=== PATIENT | female | born 1965 | race Caucasian/White ===

== ENCOUNTER 2016-10-02 10:29 | Emergency (ER) | payer OTHER ==
[~2016-10-02] VITALS: Ht 152.4 cm; Wt 96.3 kg
[~2016-10-02 10:29] MED LIST: ALBU1AER9 PO; ASPI81TA28 PO; ATOR-22 PO; CETI10TA84 PO; EFFSR150 PO; FLUT1INH INH; GABA400C PO; GUAI400T29 PO; INSU1.2I SQ; LEVO200T6 PO; LORA10CA2 PO; LSN5 PO; MAGN400T6 PO; MECL1TAB42 PO; METO50TA7 PO; MIRA100T PO; NTRGSL/4 UT
[2016-10-02 10:37] VITALS: TEMP 36.7; Ht 152.4 cm; Wt 96.3 kg
[2016-10-02] MEDS ORDERED: ACETAMINOPHEN 500 MG TAB PO STA (11:11)
--- NOTE | 2016-10-02 12:03 | DIAGNOSTIC IMAGING REPORT ---
CT HEAD WITHOUT CONTRAST (CT) CLINICAL HISTORY: Closed head injury. Scalp hematoma. COMPARISON STUDY: 03/01/2015 TECHNIQUE: Axial CT of the brain is performed from the vertex to the skull base. IV contrast was not administered for this examination. CT DOSE: 712.55 mGy.cm FINDINGS: No intra or extra-axial mass lesions are visualized. There is no CT evidence of acute cortical infarction. There is no evidence of midline shift. There is no acute hemorrhage. No calvarial fractures are visualized. There is no evidence of pathologic ventricular dilatation. There is no evidence of acute sinusitis. There is a posterior scalp hematoma. IMPRESSION: Posterior scalp hematoma. No evidence of acute intracranial injury. Electronically signed by: Cameron Browning M.D. 10/02/2016 12:01 PM
--- NOTE | 2016-10-02 12:32 | EMERGENCY ROOM VISIT NOTE ---
ED Visit Note First contact with patient: 11:02 Staff note: I have reviewed the Patients chart and have discussed this case with my PA. I generally agree with the ED note and findings.
[2016-10-02 13:07] VITALS: BP 128/84; PULSE 63; O2SAT 94
--- NOTE | 2016-10-02 20:35 | EMERGENCY ROOM VISIT NOTE ---
History First contact with patient: 11:02 Chief Complaint: FALL Stated Complaint: FALL History of Present Illness The patient is a 50 year old female who presents to the Emergency Room with complaints of a head injury after slipping on ice and falling backwards, striking her head on either the ground or a board that was laying across a burn barrel. The members did not notice any loss of consciousness. The patient reports increasing pain and fullness in the back of her head. She denies any neck pain or back pain. She also denies any other significant injuries from her fall. She rates her discomfort a 9 out of 10. Tetanus immunization is up- to-date. Review of Systems 10 system review was performed and was negative except for pertinent positives and negatives as indicated in history of present illness Past Medical/Surgical History Medical Problems: (1) Diabetes mellitus type 2 in obese (2) Dyslipidemia (3) GERD (gastroesophageal reflux disease) (4) Hepatitis (5) HTN (hypertension) (6) Hypothyroidism (7) Leaky heart valve (8) Mitral regurgitation (9) Morbid obesity with BMI of 40.0-44.9, adult (10) MRSA (methicillin resistant Staphylococcus aureus) (11) ANA (obstructive sleep apnea) (12) Panniculitis (13) Patella fracture (14) Post-op pain Surgical Problems: (1) History of carpal tunnel surgery (2) History of hysterectomy (3) History of tonsillectomy and adenoidectomy (4) History of tubal ligation (5) Hx of total knee arthroplasty Family History Diabetes mellitus FH: heart disease FH: lung disease Hypertension Seizures Social History Smoking Status: Never Smoker Alcohol Use: none Drug Use: none Marital Status: Housing Status: lives alone Occupation Status: disabled Current/Historical Medications Scheduled Aspirin (Aspirin Ec), 81 MG PO DAILY Atorvastatin (Lipitor), 20 MG PO PM Cetirizine (Zyrtec), 10 MG PO DAILY Fluticasone Furoate-Vilanterol (Breo Ellipta), 1 PUFF INH DAILY Gabapentin (Neurontin), 400 MG PO DAILY Guaifenesin (Mucus Relief), 400 MG PO DAILY Insulin Glargine (Toujeo Solostar), 100 UNITS SQ QAM Levothyroxine Sodium (Levothyroxine Sodium), 1,200 MCG PO DAILY Lisinopril (Lisinopril), 2.5 MG PO DAILY Loratadine (Claritin), 10 MG PO DAILY Magnesium Oxide (Mag-Ox), 400 MG PO BID Metoprolol Succ (Toprol Xl) (Toprol-Xl), 50 MG PO DAILY Mirabegron (Myrbetriq), 25 MG PO DAILY Venlafaxine Hcl (Effexor Extended Rel), 150 MG PO DAILY Scheduled PRN Albuterol (Proair Hfa), 1 PUFF PO Q4H PRN for asthma Meclizine Hcl (Meclizine Hcl), 25 MG PO TID PRN for Dizziness or Vertigo Nitroglycerin (Nitrostat), 0.4 MG UT UD PRN for Chest Pain Allergies Coded Allergies: Daptomycin (Verified Allergy, Severe, SHORTNESS OF BREATH, 08/05/16) 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 The patient does not appear in any acute distress. HEENT: Examination shows an abrasion and small hematoma over the crown and upper occipital region. Pupils equal, round and reactive. No epistaxis, subconjunctival hemorrhage, hemotympanum, raccoon's eyes or Sparks sign. NECK: Full active range of motion without discomfort. RESPIRATORY: Clear to auscultation bilaterally with no wheezing, crackles, rhonchi or stridor. CARDIOVASCULAR: Regular rate and rhythm with no murmurs, rubs or gallops. GASTROINTESTINAL: Bowel sounds present in all quadrants. Protuberant but soft and nontender to palpation. MUSCULOSKELETAL: Full range of motion of all major joints without discomfort. No focal tenderness to palpation through the central thoracolumbar spine or ribs. Distal pulses are intact. INTEGUMENTARY: No rash or other significant dermatologic conditions noted. NEUROLOGIC: Cranial nerves II-XII grossly intact. No focal neurologic deficits noted. Upper and lower extremities are sensory intact. Medical Decision & Procedures ER Provider Diagnostic Interpretation: Noncontrast CT of the head does not show any acute fractures or intracranial bleed. Radiologist report is as follows: CT HEAD WITHOUT CONTRAST (CT) CLINICAL HISTORY: Closed head injury. Scalp hematoma. COMPARISON STUDY: 03/01/2015 TECHNIQUE: Axial CT of the brain is performed from the vertex to the skull base. IV contrast was not administered for this examination. CT DOSE: 712.55 mGy.cm FINDINGS: No intra or extra-axial mass lesions are visualized. There is no CT evidence of acute cortical infarction. There is no evidence of midline shift. There is no acute hemorrhage. No calvarial fractures are visualized. There is no evidence of pathologic ventricular dilatation. There is no evidence of acute sinusitis. There is a posterior scalp hematoma. IMPRESSION: Posterior scalp hematoma. No evidence of acute intracranial injury. Medications Administered Medications (Trade) Dose Ordered Sig/Viviana Route Start Time Stop Time Status Last Admin Dose Admin Acetaminophen (Tylenol Tab) 1,000 mg NOW STAT PO 10/02/16 11:11 10/02/16 11:12 DC 10/02/16 11:31 1,000 MG ED Course Patient history and physical exam were performed. Nurse's notes were reviewed. The patient received Tylenol 1 g for pain. Noncontrast CT of the head was normal. The patient was encouraged to rest and avoid strenuous activities. Concussion handout was provided. The patient was encouraged to follow-up with her PCP for further management if symptoms are not significantly improving over the next few days. Ibuprofen and Tylenol in alternating fashion as needed for pain relief. The patient was happy with plan of care, voiced understanding of all discharge instructions, and rated her pain a 5 out of 10 at the time of discharge. The patient was also seen and examined by Dr. Boyd, ED attending physician, who agrees with workup and plan of care. Medical Decision Impression Primary Impression: Concussion Additional Impressions: Fall due to slipping on ice or snow, Scalp hematoma Departure Information Referrals (PCP) Patient Instructions A [employer] Page, [employer]
== END 2016-10-02 13:10 | disposition home or self-care (01) ==
LOC: EDBD 10:29 → C.EDC 10:31
DX: S06.0X0A Concussion without loss of consciousness, initial encounter (principal); S00.03XA Contusion of scalp, initial encounter; E11.9 Type 2 diabetes mellitus without complications; E78.5 Hyperlipidemia, unspecified; I10 Essential (primary) hypertension; E03.9 Hypothyroidism, unspecified; E66.9 Obesity, unspecified; G47.33 Obstructive sleep apnea (adult) (pediatric); K21.9 Gastro-esophageal reflux disease without esophagitis; I34.0 Nonrheumatic mitral (valve) insufficiency; Z79.4 Long term (current) use of insulin; Z79.82 Long term (current) use of aspirin; Z79.899 Other long term (current) drug therapy; Z88.1 Allergy status to other antibiotic agents; Z88.2 Allergy status to sulfonamides; W00.0XXA Fall on same level due to ice and snow, initial encounter; Z86.14 Personal history of Methicillin resistant Staphylococcus aureus infection

== ENCOUNTER 2016-10-04 09:37 | Emergency (ER) | payer OTHER ==
[~2016-10-04] VITALS: Ht 152.4 cm; Wt 94.0 kg
[2016-10-04 09:40] VITALS: Ht 152.4 cm; Wt 94.0 kg
[2016-10-04] MEDS ORDERED: ACETAMINOPHEN 500 MG TAB PO STA (09:59)
[2016-10-04] MEDS ORDERED: ONDANSETRON INJ 2 MG/ML 2 ML VIAL IV STA (10:15)
[2016-10-04 10:33] LABS: BASO % 0.2 %; BASO ABS # 0.02 K/uL (0-0.2); COMPLETE YES; EOS % 3.6 %; HEMATOCRIT 41.2 % (37-47); IG% 0.4 %; LYMPH % 29.5 %; LYMPH ABS # 2.67 K/uL (1.2-3.4); MEAN CELL VOLUME 78.9 fL (80-100); MEAN CORPUSCULAR HEMOGLOBIN 28.5 pg (25-34); MEAN CORPUSCULAR HGB CONC 36.2 g/dl (32-36); MEAN PLATELET VOLUME 9.6 fL (7.4-10.4); MONO % 6.6 %; NEUT % 59.7 %; PLATELET COUNT 244 K/uL (130-400); RED BLOOD COUNT 5.22 M/uL (4.2-5.4); WHITE BLOOD COUNT 9.05 K/uL (4.8-10.8)
--- NOTE | 2016-10-04 10:45 | DIAGNOSTIC IMAGING REPORT ---
CT OF THE CERVICAL SPINE CLINICAL HISTORY: Neck pain status post trauma. Off balance. Confusion. COMPARISON STUDY: No previous studies for comparison. CT DOSE: 992.23 mGy.cm TECHNIQUE: CT scan of the cervical spine was performed from the skull base to the thoracic inlet. Images are reviewed in the axial, sagittal, and coronal planes. IV contrast was not administered for this examination. FINDINGS: The visualized portions of the lung apices reveal no evidence of pneumothorax. The prevertebral soft tissues are normal. No fractures or subluxations are visualized. There are multilevel degenerative changes There is asymmetric pneumatization of the mastoids, likely chronic. There is mild asymmetry in the appearance of the right middle ear ossicles. This remains unchanged from prior studies. IMPRESSION: No evidence of acute fracture or traumatic subluxation. Electronically signed by: Cameron Browning M.D. 10/04/2016 10:43 AM
--- NOTE | 2016-10-04 10:46 | DIAGNOSTIC IMAGING REPORT ---
HEAD CT NONCONTRAST CT DOSE: HISTORY: fall hit head oct 02 TECHNIQUE: Multiaxial CT images of the head were performed without the use of intravenous contrast. Automated exposure control was utilized for this study. Comparison: Head CT 10/02/2016. Findings: The paranasal sinuses and mastoid air cells are clear. The calvarium and skull base are intact. The ventricles and sulci are within normal limits. There is no mass, hematoma, midline shift, or acute infarct. Posterior scalp hematoma. Impression: No acute intracranial abnormality. Posterior scalp hematoma. Electronically signed by: Anthony Davis M.D. 10/04/2016 10:44 AM
--- NOTE | 2016-10-04 11:03 | DIAGNOSTIC IMAGING REPORT ---
RIBS BILATERAL WITH PA CHEST CLINICAL HISTORY: Bilateral rib pain following fall. COMPARISON STUDY: Chest radiograph May 12, 2016. FINDINGS: There is no pneumothorax or pleural effusion. Cardiomediastinal silhouette is stable. Linear left midlung opacity is suggestive of atelectasis. Several old right rib fractures. There is apparent irregularity with calcific density which overlies the anterior left eighth rib. IMPRESSION: No pneumothorax. No definite acute rib fractures. Irregularity of the anterior left eighth rib is likely chronic. Electronically signed by: Humberto Montanez M.D. 10/04/2016 11:01 AM
[2016-10-04 11:24] LABS: BUN/CREATININE RATIO 24.9 (10-20); CALCIUM 9.7 mg/dl (8.5-10.1); CREATININE 0.95 mg/dl (0.60-1.20)
[2016-10-04] MEDS ORDERED: INSULIN GLARGINE PER SC STA (11:29)
[2016-10-04 11:47] LABS: BETA-HYDROXYBUTYRATE 2.09 mg/dL (0.2-2.81)
[2016-10-04] MEDS ORDERED: INSULIN GLARGINE PER SC SCH (12:15)
[2016-10-04 12:33] VITALS: BP 126/76; PULSE 57; TEMP 36.6; O2SAT 97
--- NOTE | 2016-10-04 16:00 | EMERGENCY ROOM VISIT NOTE ---
History Report prepared by Aakash: Sakshi Bhatia Under the Supervision of: Dr. Lane Boyd D.O. First contact with patient: 09:45 Chief Complaint: HEAD INJURY (MINOR) Stated Complaint: CONFUSION UNBALANCED TUNNEL VISION History of Present Illness The patient is a 50 year old female who presents to the Emergency Room with complaints of persistent head pain that started two days ago. The patient was seen in the ED two days ago after a mechanical fall on ice. The patient's family members did not notice any LOC after a fall and a CT scan of her head was unremarkable. The patient states that since then she has been experiencing "triple vision" when she closes her eyes and her vision becomes "black and red" whenever she moves her head. She also states that it feels like "the room is spinning" when she moves her head. She states that when her eyes are open her vision seems worse than normal, but she states that she typically wears glasses and she is not wearing them currently. The patient denies seeing things on top of each other or next to each other. She states that she cannot ambulate due to bilateral leg weakness. The patient's daughter states that the patient broke her left knee and right ankle in January of last year. She has been intermittently using a walker since she received surgery on her legs. She was not using her walker when she fell two days ago. The patient also states that she experienced a "ripping" feeling in her back when she got up but she states that she thinks that she fell on her back. The back pain radiates around her sides into her chest. She denies any numbness. The patient began experiencing nausea and vomiting two days ago after falling. The vomiting has been intermittent and she experienced 3 episodes yesterday. She has not experienced any vomiting today. The patient developed a cough yesterday. The patient adds that she has been fasting for blood work today. Source of History: patient Onset: two days ago Position: head Quality: other (head pain) Timing: other (persistent) Associated Symptoms: + back pain, + chest pain, + cough, + nausea, + vomiting, + weakness (bilateral legs), No numbness Note: "triple vision" when she closes her eyes, vision becomes "black and red" whenever she moves her head, "the room is spinning" when she moves her head, worsening blurry vision Review of Systems See HPI for pertinent positives & negatives. A total of 10 systems reviewed and were otherwise negative. Past Medical & Surgical Medical Problems: (1) Diabetes mellitus type 2 in obese (2) Dyslipidemia (3) GERD (gastroesophageal reflux disease) (4) Hepatitis (5) HTN (hypertension) (6) Hypothyroidism (7) Leaky heart valve (8) Mitral regurgitation (9) Morbid obesity with BMI of 40.0-44.9, adult (10) MRSA (methicillin resistant Staphylococcus aureus) (11) ANA (obstructive sleep apnea) (12) Panniculitis (13) Patella fracture (14) Post-op pain Surgical Problems: (1) History of carpal tunnel surgery (2) History of hysterectomy (3) History of tonsillectomy and adenoidectomy (4) History of tubal ligation (5) Hx of total knee arthroplasty Family History Diabetes mellitus FH: heart disease FH: lung disease Hypertension Seizures Social History Smoking Status: Never Smoker Alcohol Use: none Drug Use: none Marital Status: Housing Status: lives alone Occupation Status: disabled Current/Historical Medications Scheduled Aspirin (Aspirin Ec), 81 MG PO DAILY Atorvastatin (Lipitor), 20 MG PO PM Cetirizine (Zyrtec), 10 MG PO DAILY Fluticasone Furoate-Vilanterol (Breo Ellipta), 1 PUFF INH DAILY Gabapentin (Neurontin), 400 MG PO DAILY Guaifenesin (Mucus Relief), 400 MG PO DAILY Insulin Glargine (Toujeo Solostar), 100 UNITS SQ QAM Levothyroxine Sodium (Levothyroxine Sodium), 1,200 MCG PO DAILY Lisinopril (Lisinopril), 2.5 MG PO DAILY Loratadine (Claritin), 10 MG PO DAILY Magnesium Oxide (Mag-Ox), 400 MG PO BID Metoprolol Succ (Toprol Xl) (Toprol-Xl), 50 MG PO DAILY Mirabegron (Myrbetriq), 25 MG PO DAILY Venlafaxine Hcl (Effexor Extended Rel), 150 MG PO DAILY Scheduled PRN Albuterol (Proair Hfa), 1 PUFF PO Q4H PRN for asthma Meclizine Hcl (Meclizine Hcl), 25 MG PO TID PRN for Dizziness or Vertigo Nitroglycerin (Nitrostat), 0.4 MG UT UD PRN for Chest Pain Allergies Coded Allergies: Daptomycin (Verified Allergy, Severe, SHORTNESS OF BREATH, 10/04/16) 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 Clindamycin (Verified Allergy, Intermediate, HIVES, 10/04/16) Sulfa Antibiotics (Verified Allergy, Intermediate, BACTRIM-HIVES, 10/04/16) BEE STING (Verified Allergy, Unknown, 10/04/16) Trimethoprim (Verified Allergy, Unknown, HIVES, 10/04/16) Physical Exam Vital Signs Date Time Temp Pulse Resp B/P Pulse Ox O2 Delivery O2 Flow Rate FiO2 10/04/16 12:33 36.6 57 18 126/76 97 10/04/16 09:45 93 10/04/16 09:40 36.6 58 18 118/76 97 Room Air Physical Exam GENERAL: alert, obese, ambulates with walker, well appearing, well nourished, no acute distress, non-toxic HEAD: normal cephalic, atraumatic EYE EXAM: normal conjunctiva, PERRL and EOM's grossly intact OROPHARYNX: no exudate, no erythema, lips, buccal mucosa, and tongue normal and mucous membranes are moist EARS: TMs clear b/l NECK: supple, no nuchal rigidity, no adenopathy, mild lower cervical spine tenderness CHEST: stable to compression anteriorly and posteriorly, mild bilateral lower rib tenderness on palpation. LUNGS: clear to auscultation. Normal chest wall mechanics HEART: no murmurs, S1 normal and S2 normal ABDOMEN: abdomen soft, non-tender, normo-active bowel sounds, no masses, no rebound or guarding. PELVIS: stable to compression anteriorly and posteriorly BACK: Back is symmetrical on inspection and there is no deformity, no midline tenderness, no CVA tenderness. UPPER EXTREMITIES: full active and passive range of motion of all joints without tenderness to palpation LOWER EXTREMITIES: full active and passive range of motion of all joints without tenderness to palpation NEURO EXAM: Normal sensorium, cranial nerves II-XII intact, normal speech, no weakness of arms, no weakness of legs. No drift. Finger to nose intact. Gross sensation intact. GCS: 15. Rapid alternating movements of upper extremities intact. Patient was able to give a complete history without any confusion. Medical Decision & Procedures ER Provider Diagnostic Interpretation: Xray results per the radiologist and my interpretation. Other results have been interpreted by the radiologist and reviewed by me. RIBS BILATERAL WITH PA CHEST CLINICAL HISTORY: Bilateral rib pain following fall. COMPARISON STUDY: Chest radiograph May 12, 2016. FINDINGS: There is no pneumothorax or pleural effusion. Cardiomediastinal silhouette is stable. Linear left midlung opacity is suggestive of atelectasis. Several old right rib fractures. There is apparent irregularity with calcific density which overlies the anterior left eighth rib. IMPRESSION: No pneumothorax. No definite acute rib fractures. Irregularity of the anterior left eighth rib is likely chronic. Electronically signed by: Humberto Montanez M.D. 10/04/2016 11:[address]AST CT DOSE: HISTORY: fall hit head oct 02 TECHNIQUE: Multiaxial CT images of the head were performed without the use of intravenous contrast. Automated exposure control was utilized for this study. Comparison: Head CT 10/02/2016. Findings: The paranasal sinuses and mastoid air cells are clear. The calvarium and skull base are intact. The ventricles and sulci are within normal limits. There is no mass, hematoma, midline shift, or acute infarct. Posterior scalp hematoma. Impression: No acute intracranial abnormality. Posterior scalp hematoma. Electronically signed by: Anthony Davis M.D. 10/04/2016 10:[address] OF THE CERVICAL SPINE CLINICAL HISTORY: Neck pain status post trauma. Off balance. Confusion. COMPARISON STUDY: No previous studies for comparison. CT DOSE: 992.23 mGy.cm TECHNIQUE: CT scan of the cervical spine was performed from the skull base to the thoracic inlet. Images are reviewed in the axial, sagittal, and coronal planes. IV contrast was not administered for this examination. FINDINGS: The visualized portions of the lung apices reveal no evidence of pneumothorax. The prevertebral soft tissues are normal. No fractures or subluxations are visualized. There are multilevel degenerative changes There is asymmetric pneumatization of the mastoids, likely chronic. There is mild asymmetry in the appearance of the right middle ear ossicles. This remains unchanged from prior studies. IMPRESSION: No evidence of acute fracture or traumatic subluxation. Electronically signed by: Cameron Browning M.D. 10/04/2016 10:43 AM Laboratory Results 10/04/16 10:20 Red Blood Count 5.22, Mean Corpuscular Volume 78.9, Mean Corpuscular Hemoglobin 28.5, Mean Corpuscular Hemoglobin Concent 36.2, Mean Platelet Volume 9.6, Neutrophils (%) (Auto) 59.7, Lymphocytes (%) (Auto) 29.5, Monocytes (%) (Auto) 6.6, Eosinophils (%) (Auto) 3.6, Basophils (%) (Auto) 0.2, Neutrophils # (Auto) 5.39, Lymphocytes # (Auto) 2.67, Monocytes # (Auto) 0.60, Eosinophils # (Auto) 0.33, Basophils # (Auto) 0.02 10/04/16 10:20 Test 10/04/16 10:20 White Blood Count 9.05 K/uL (4.8-10.8) Red Blood Count 5.22 M/uL (4.2-5.4) Hemoglobin 14.9 g/dL (12.0-16.0) Hematocrit 41.2 % (37-47) Mean Corpuscular Volume 78.9 fL (80-100) Mean Corpuscular Hemoglobin 28.5 pg (25-34) Mean Corpuscular Hemoglobin Concent 36.2 g/dl (32-36) Platelet Count 244 K/uL (130-400) Mean Platelet Volume 9.6 fL (7.4-10.4) Neutrophils (%) (Auto) 59.7 % Lymphocytes (%) (Auto) 29.5 % Monocytes (%) (Auto) 6.6 % Eosinophils (%) (Auto) 3.6 % Basophils (%) (Auto) 0.2 % Neutrophils # (Auto) 5.39 K/uL (1.4-6.5) Lymphocytes # (Auto) 2.67 K/uL (1.2-3.4) Monocytes # (Auto) 0.60 K/uL (0.11-0.59) Eosinophils # (Auto) 0.33 K/uL (0-0.5) Basophils # (Auto) 0.02 K/uL (0-0.2) RDW Standard Deviation 37.3 fL (36.4-46.3) RDW Coefficient of Variation 13.2 % (11.5-14.5) Immature Granulocyte % (Auto) 0.4 % Immature Granulocyte # (Auto) 0.04 K/uL (0.00-0.02) Anion Gap 10.0 mmol/L (3-11) Est Creatinine Clear Calc Drug Dose 71.0 ml/min Estimated GFR () 79.8 Estimated GFR (Non- 68.9 BUN/Creatinine Ratio 24.9 (10-20) Calcium Level 9.7 mg/dl (8.5-10.1) Beta-Hydroxybutyric Acid 2.09 mg/dL (0.2-2.81) Laboratory results per my review. Medications Administered Medications (Trade) Dose Ordered Sig/Viviana Route Start Time Stop Time Status Last Admin Dose Admin Acetaminophen (Tylenol Tab) 500 mg NOW STAT PO 10/04/16 09:59 10/04/16 10:03 DC 10/04/16 10:09 500 MG Ondansetron HCl 4 mg 4 mg NOW STAT IV 10/04/16 10:15 10/04/16 10:16 DC 10/04/16 10:15 4 MG Insulin Glargine/ Syringe (Lantus Per Unit/ Syringe) 0.07 ml @ 0 mls/min 1215 SC 10/04/16 12:15 10/04/16 12:30 DC 10/04/16 12:30 0.07 MLS/MIN ED Course ED COURSE: Vital signs were reviewed and showed bradycardia. The patients medical record was reviewed The above diagnostic studies were performed and reviewed. ED treatments and interventions as stated above. 0948: The patient was evaluated in room B6. A complete history and physical examination was performed. 0959: Ordered Tylenol Tab 500 mg PO 1015: Ordered Zofran 4 mg IV 1031: I went to reassess the patient but she was at CT. 1131: Upon reevaluation, the patient is doing well. She notes that she has several caregivers at home and she gave a complete history of her and family members. She does not feel confused. She adds that she did not take her insulin this morning because she was going to get blood work done. She is in agreement with going home and is going to check her blood sugars every hour. 1210: Upon reevaluation, the patient is feeling better. I discussed my findings with the patient and she understands and agrees with the treatment plan. Based on the patients age, coexisting illnesses, exam and lab findings the decision to treat as an outpatient was made. The patient remained stable while under my care. The patient appeared well at the time of discharge. 1215: Ordered Insulin Glargine 7 units/Syringe 0.07 ml @ 0 mls/min SC Medical Decision Differential diagnoses include major intracranial, cervical, spinal, thoracic, abdominal, pelvic and neurologic injury. Fracture, contusion, sprain, strain, laceration, abrasions included as well. Patient is a 50-year-old female who presents the ER status post mechanical fall 2 days ago following which she hit her head without loss consciousness. She is CT at that time was negative. She presents back again to the ER for report of difficulty ambulating, confusion and blurry vision. Upon evaluation she is completely neurologically intact. She does ambulate with a walker but notes she has been doing this intermittently since she had her right knee and left ankle operate on this past year. She notes she has been doing it more since the fall [address] head again along with cervical spine was unremarkable. X-rays of the ribs showed no acute fracture. Labs including CBC was unremarkable. BMP showed hyperglycemia but this is because the patient was going to take a fasting blood sugar at the lab today. Patient did not take her insulin this morning as she should have because she was getting fasting sugar. Patient was given subcutaneous insulin for her 400 blood sugar. There is no signs of DKA. Her vision was 20/50 and 20/30 without her glasses. She notes that the spots that she sees is present when she closes her her eyes. With her eyes open she has no blurry vision. She does think her far vision is slightly worse than baseline. Completely intact neurologic exam and negative CT I discharged her to follow-up with her PCP. She has appointment this Sunday. I gave her strict concussion discharge instructions. I encouraged her to use her walker until she feels more stable and that she should ambulate only in the presence of another family member. Discussed with Pt concerning signs and symptoms to watch out for. Pt was instructed to follow up with their PCP and discussed with the patient their option to return to the ED at anytime for persistent or worsening symptoms. The appropriate anticipatory guidance and out- patient management, including indications for return to the emergency department , were explained at length to the patient and understood. Impression Primary Impression: Concussion Additional Impression: Hyperglycemia Scribe Attestation The scribe's documentation has been prepared under my direction and personally reviewed by me in its entirety. I confirm that the note above accurately reflects all work, treatment, procedures, and medical decision making performed by me. Departure Information Dispostion Home / Self-Care Referrals No Doctor, Assigned (PCP) Forms HOME CARE DOCUMENTATION FORM, IMPORTANT VISIT INFORMATION Patient Instructions A Signature Page, Concussion, ED Hyperglycemia Diabetic, My [facility] Additional Instructions Please follow up with your primary care doctor with in the next 24 hours. Any worsening of your symptoms, please return to the ED immediately. This includes any weakness in your arms or legs, change in vision, passing out, worsening headache, confusion, or any other concerning signs or symptoms from your standpoint. Please use walker as she previously has been using it in the past for stabilization to prevent any additional falls. Do not drive until you're followed up by her primary care doctor.
[2017-07-31] MEDS ORDERED: IBUP-1050 PO (14:46)
[2017-07-31] MEDS ORDERED: ACET-1256 PO (14:46)
[2017-09-15] MEDS ORDERED: PRED10TA PO ×2 (07:43→09:57)
[2017-09-15] MEDS ORDERED: IPRA1AER2 INH ×2 (07:43→09:57)
[2017-09-15] MEDS ORDERED: SYMIN/8045 INH (09:57)
[2017-09-27] MEDS ORDERED: IPRA1AER2 INH (15:01)
[2017-09-27] MEDS ORDERED: SYMIN/8045 INH (15:01)
[2017-10-08] MEDS ORDERED: ASPI81TA28 PO (11:21)
[2017-10-08] MEDS ORDERED: MGNO400 PO (11:22)
[2017-10-08] MEDS ORDERED: LCTX PO (11:22)
[2017-10-08] MEDS ORDERED: LEVO1TAB35 PO (11:22)
[2017-10-08] MEDS ORDERED: LEVO200T6 PO (11:22)
[2017-10-08] MEDS ORDERED: TPRSR50 PO (11:22)
[2017-10-08] MEDS ORDERED: FAMO1TAB47 PO (11:22)
[2017-10-08] MEDS ORDERED: SALI0.6510 (11:22)
[2017-10-08] MEDS ORDERED: INSU1.2I SQ (13:42)
== END 2016-10-04 12:45 | disposition home or self-care (01) ==
LOC: C.EDB 09:41
DX: S06.0X0A Concussion without loss of consciousness, initial encounter (principal); W00.0XXA Fall on same level due to ice and snow, initial encounter; E11.65 Type 2 diabetes mellitus with hyperglycemia; E78.5 Hyperlipidemia, unspecified; K21.9 Gastro-esophageal reflux disease without esophagitis; E03.9 Hypothyroidism, unspecified; I10 Essential (primary) hypertension; I34.0 Nonrheumatic mitral (valve) insufficiency; E66.01 Morbid (severe) obesity due to excess calories; G47.33 Obstructive sleep apnea (adult) (pediatric); Z79.4 Long term (current) use of insulin; Z79.82 Long term (current) use of aspirin; Z79.899 Other long term (current) drug therapy; Z83.3 Family history of diabetes mellitus; Z82.49 Family history of ischemic heart disease and other diseases of the circulatory system; Z83.6 Family history of other diseases of the respiratory system

== ENCOUNTER → 2016-10-06 | Outpatient (CLI) | payer OTHER ==
[~2016-10-06] MED LIST changes: +AMOX875T PO; +INSU1.2I SC; +LPR25 PO; +NVLGI/PEN SC; +SNG10 PO; +VNTHFA/IN INH
[2016-10-06 18:52] LABS: RATIO 26.9 mcg/mg (0-30.0)
[2016-10-07 05:55] LABS: ESTIMATED AVERAGE GLUCOSE 275 mg/dl; HA1C FLAG Normal (Normal)
== END | disposition home or self-care (01) ==
LOC: C.LABPVFM 10:51
PROVIDERS: ATTEND Nurse Practitioner Family
DX: I21.3 ST elevation (STEMI) myocardial infarction of unspecified site (principal); E11.9 Type 2 diabetes mellitus without complications; E78.00 Pure hypercholesterolemia, unspecified; E03.9 Hypothyroidism, unspecified; I10 Essential (primary) hypertension

== ENCOUNTER → 2016-10-26 | Outpatient (CLI) | payer OTHER ==
[2016-10-26 12:24] LABS: ALT/SGPT 26 U/L (12-78); BLOOD UREA NITROGEN 12 mg/dl (7-18); BUN/CREATININE RATIO 15.5 (10-20); CALCIUM 8.9 mg/dl (8.5-10.1); CARBON DIOXIDE 27 mmol/L (21-32); CHLORIDE 106 mmol/L (98-107); CHOLESTEROL 125 mg/dl (0-200); GLUCOSE 97 mg/dl (70-99); POTASSIUM 3.6 mmol/L (3.5-5.1); SODIUM 142 mmol/L (136-145); TRIGLYCERIDES 100 mg/dl (0-150); VERY LOW DENSITY LIPOPROT CALC 20 mg/dl
[2016-10-26 12:35] LABS: ALB/GLOB RATIO 0.9 (0.9-2); ALKALINE PHOSPHATASE 70 U/L (45-117); AST/SGOT 23 U/L (15-37); CHOLESTEROL/HDL RATIO 3.3; HDL CHOLESTEROL 38 mg/dl; LDL CHOLESTEROL CALCULATED 67 mg/dl
== END | disposition home or self-care (01) ==
LOC: C.LABPVFM 09:56
PROVIDERS: ATTEND Family Medicine
DX: I21.3 ST elevation (STEMI) myocardial infarction of unspecified site (principal); E11.9 Type 2 diabetes mellitus without complications; E78.00 Pure hypercholesterolemia, unspecified; E03.9 Hypothyroidism, unspecified; I10 Essential (primary) hypertension

== ENCOUNTER 2016-11-25 11:43 | Emergency (ER) | payer OTHER ==
[~2016-11-25] VITALS: Ht 152.4 cm; Wt 97.0 kg
[~2016-11-25 11:43] MED LIST changes: -AMOX875T PO; -INSU1.2I SC; -LPR25 PO; -NVLGI/PEN SC; -SNG10 PO; -VNTHFA/IN INH
[2016-11-25 11:47] VITALS: TEMP 37.7; Ht 152.4 cm; Wt 97.0 kg
[2016-11-25] MEDS ORDERED: VNTHFA/IN INH (12:00)
[2016-11-25] MEDS ORDERED: NVLGI/PEN SC (12:00)
[2016-11-25] MEDS ORDERED: AMOX875T PO (12:37)
[2016-11-25 12:50] VITALS: BP 139/81; PULSE 95; O2SAT 92
--- NOTE | 2016-11-25 19:26 | EMERGENCY ROOM VISIT NOTE ---
ED Visit Note First contact with patient: 12:12 CHIEF COMPLAINT: Painful mass in the right groin HISTORY OF PRESENT ILLNESS: This 51-year-old white female patient noticed a hard tender area to the right of her labia 2 days ago. It is slowly getting larger, more painful and tender. She cannot see if it is draining. She has been using sitz baths. No fever, chills, nausea, vomiting, or loss of appetite. There was no injury to the area preceding the infection. Pain is 8/ 10. Positive prior history of similar episode. She also has a history of MRSA. REVIEW OF SYSTEMS: REVIEW OF SYSTEM: HEENT: No dizziness, visual problems, hearing loss, or tinnitus. There is no difficulty swallowing and no oral lesions are present. LYMPH: No adenopathy. PULMONARY: No cough, shortness of breath, sputum production or hemoptysis. CARDIOVASCULAR: No chest pain, palpitations, shortness of breath or peripheral edema. GASTROINTESTINAL: No diarrhea, constipation, nausea, vomiting, or abdominal pain. GENITOURINARY: No dysuria, frequency, urgency or nocturia. NEUROLOGIC: No weakness, muscle tenderness, epilepsy or history of neurological problems. MUSCULOSKELETAL: No history of joint tenderness/swelling. Positive history of arthritis and arthralgias. SKIN: No rashes. PSYCHIATRIC: No history of depression or mental illness. ENDOCRINE: No history of diabetes, thyroid disorders, or abnormal hair growth. PMH: Supplemental sheet was not completed. Previous surgeries: Left total knee replacement Medical History: Significant for obesity and arthritis. Also MRSA infection history Current medications: Reviewed and filed in patient's chart Allergies: Clindamycin, daptomycin, sulfa antibiotics Family history: Noncontributory. Last tetanus: Unknown SOCIAL HISTORY: Unemployed. No tobacco use, no EtOH use. PHYSICAL EXAM: Vital Signs: Afebrile. Reviewed and filed in patient's chart Gen.: Well-developed, well-nourished, middle-aged white female, laying on a bed. Obvious discomfort. Skin: Warm and dry with good turgor. No rashes. No ecchymosis. The patient is not diaphoretic. No abrasions. There is an indurated area just to the right of her labia in the groin, which measures about 4 cm in diameter. It is firm and there is pointing with 2 pustules. There is a red zone of inflammation around it but no lymphangitis. It is warm to touch. EMERGENCY DEPARTMENT COURSE: Informed oral consent was obtained for incision and drainage. Area was prepped with Betadine and draped with a sterile towel. Wound was anesthetized using 5 cc 1% plain lidocaine in a direct infiltration. # 11 blade was used to sharply incised the abscess. Copious purulent material was expressed from the wound. The abscess was probed using iris scissors to break up interior loculations. Wound was irrigated copiously using normal sterile saline under jet spray lavage. Outer dressing was placed. No packing was required. DIAGNOSIS: Skin Abscess of the right groin DISCHARGE INSTRUCTIONS & TREATMENT: Patient was educated regarding today's findings. Conservative care measures were discussed. She has been through this before. Change the dressing if it becomes soiled or blood-stained. Prescription was given for Augmentin 875 mg 2 times a day for 7 days. Return if any problems such as fever or increasing pain develop. See a general surgeon if an abscess re-occurs in the same area in the future for consideration of excision of the cyst. Skin abscess handout was provided. Warm moist compresses to the area several times a day to promote drainage or perform sitz baths. I do not think she will require wound center evaluation with this cyst, though she has had it in the past. Problem List Medical Problems: (1) Diabetes mellitus type 2 in obese Status: Chronic (2) Dyslipidemia Status: Chronic (3) GERD (gastroesophageal reflux disease) Status: Chronic (4) Hepatitis Status: Chronic (5) HTN (hypertension) Status: Chronic (6) Hypothyroidism Status: Chronic (7) Leaky heart valve Status: Chronic (8) Mitral regurgitation Permanent Comment: echo 10/14/15: mild-mod mitral regurg Status: Chronic (9) Morbid obesity with BMI of 40.0-44.9, adult Status: Chronic (10) MRSA (methicillin resistant Staphylococcus aureus) Status: Chronic (11) ANA (obstructive sleep apnea) Status: Chronic Surgical Problems: (1) History of carpal tunnel surgery Permanent Comment: bilateral Status: Resolved (2) History of hysterectomy Permanent Comment: ovaries remain Status: Resolved (3) History of tonsillectomy and adenoidectomy Status: Resolved (4) History of tubal ligation Status: Resolved (5) Hx of total knee arthroplasty Permanent Comment: L knee 2005 Status: Resolved Current/Historical Medications Scheduled Amoxicillin & Pot Clavulanate (Augmentin 875-125 mg), 1 TAB PO BID Aspirin (Aspirin Ec), 81 MG PO DAILY Atorvastatin (Lipitor), 20 MG PO PM Cetirizine (Zyrtec), 10 MG PO DAILY Fluticasone Furoate-Vilanterol (Breo Ellipta), 1 PUFF INH DAILY Gabapentin (Neurontin), 400 MG PO DAILY Guaifenesin (Mucus Relief), 400 MG PO DAILY Insulin Aspart (Novolog Flexpen), 10 UNITS SC TIDM Insulin Glargine (Toujeo Solostar), 100 UNITS SQ QAM Levothyroxine Sodium (Levothyroxine Sodium), 1,200 MCG PO DAILY Lisinopril (Lisinopril), 2.5 MG PO DAILY Loratadine (Claritin), 10 MG PO DAILY Magnesium Oxide (Mag-Ox), 400 MG PO BID Metoprolol Succ (Toprol Xl) (Toprol-Xl), 50 MG PO DAILY Mirabegron (Myrbetriq Er), 25 MG PO DAILY Venlafaxine Hcl (Effexor Extended Rel), 150 MG PO DAILY Scheduled PRN Albuterol Hfa (Ventolin Hfa), 2-4 PUFFS INH Q6H PRN for ASTHMA Meclizine Hcl (Meclizine Hcl), 25 MG PO TID PRN for Dizziness or Vertigo Nitroglycerin (Nitrostat), 0.4 MG UT UD PRN for Chest Pain Allergies Coded Allergies: Daptomycin (Verified Allergy, Severe, SHORTNESS OF BREATH, 10/04/16) 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 Clindamycin (Verified Allergy, Intermediate, HIVES, 10/04/16) Sulfa Antibiotics (Verified Allergy, Intermediate, BACTRIM-HIVES, 10/04/16) BEE STING (Verified Allergy, Unknown, 10/04/16) Trimethoprim (Verified Allergy, Unknown, HIVES, 10/04/16) Vital Signs Date Time Temp Pulse Resp B/P Pulse Ox O2 Delivery O2 Flow Rate FiO2 11/25/16 12:50 95 15 139/81 92 11/25/16 11:47 37.7 101 16 174/91 98 Room Air Departure Information Impression Primary Impression: Skin abscess Dispostion Home / Self-Care Condition GOOD Prescriptions Amoxicillin & Pot Clavulanate (Augmentin 875-125 mg) 1 Tab Tab 1 TAB PO BID, #14 TAB Prov: Og Rojas,P.A. 11/25/16 Forms WORK / SCHOOL INSTRUCTIONS, HOME CARE DOCUMENTATION FORM, TYLENOL USE, IMPORTANT VISIT INFORMATION Patient Instructions My [facility] Playful [employer] Additional Instructions Warm soaks several times per day to promote drainage follow-up with your PCP this week for reassessment Return to the ED for any other concerns or worsening symptoms Start Augmentin 1 pill twice a day for the next 7 days Tylenol every 6 hours as needed for discomfort
== END 2016-11-25 12:52 | disposition home or self-care (01) ==
LOC: C.EDB 11:46 → C.EDD 12:52
DX: R22.2 Localized swelling, mass and lump, trunk (principal); N76.4 Abscess of vulva; Z96.652 Presence of left artificial knee joint; Z86.14 Personal history of Methicillin resistant Staphylococcus aureus infection; M19.90 Unspecified osteoarthritis, unspecified site; Z88.1 Allergy status to other antibiotic agents; Z88.2 Allergy status to sulfonamides; E11.9 Type 2 diabetes mellitus without complications; E78.5 Hyperlipidemia, unspecified; K21.9 Gastro-esophageal reflux disease without esophagitis; K73.9 Chronic hepatitis, unspecified; I10 Essential (primary) hypertension; E66.01 Morbid (severe) obesity due to excess calories; Z68.41 Body mass index [BMI] 40.0-44.9, adult; Z90.710 Acquired absence of both cervix and uterus; Z90.89 Acquired absence of other organs; Z79.82 Long term (current) use of aspirin; Z88.8 Allergy status to other drugs, medicaments and biological substances; Z91.030 Bee allergy status

== ENCOUNTER → 2016-12-05 | Outpatient (CLI) | payer OTHER ==
[~2016-12-05] MED LIST changes: -ALBU1AER9 PO; +AMOX875T PO; +INSU1.2I SC; +LPR25 PO; +NVLGI/PEN SC; +SNG10 PO; +VNTHFA/IN INH
== END | disposition home or self-care (01) ==
LOC: C.LABPVFM 13:20
PROVIDERS: ATTEND Family Medicine
DX: Z00.00 Encounter for general adult medical examination without abnormal findings (principal)

== ENCOUNTER → 2016-12-27 | Outpatient (CLI) | payer OTHER ==
[~2016-12-27] MED LIST changes: +ACET-1256 PO; +AMOX1TAB43 PO; -AMOX875T PO; +IBUP-1050 PO
--- NOTE | 2016-12-27 12:42 | MAMMOGRAPHY REPORT ---
BILATERAL DIGITAL DIAGNOSTIC MAMMOGRAM TOMOSYNTHESIS WITH CAD AND TARGETED LEFT ULTRASOUND: 7 CLINICAL HISTORY: The patient reports intermittent left breast pain for approximately one year. She denies an associated palpable lump. TECHNIQUE: Breast tomosynthesis in addition to standard 2D mammography was performed. Current study was also evaluated with a Computer Aided Detection (CAD) system. Bilateral CC and MLO 2-D and renea synthesis images were obtained. COMPARISON: Comparison is made to exams dated: 12/07/2013 mammogram, 12/12/2012 mammogram, and 009 mammogram. BREAST COMPOSITION: There are scattered areas of fibroglandular density in both breasts. FINDINGS: A triangle marker alcazar the site of left breast pain in the left medial breast. There are no suspicious masses, calcifications, or areas of architectural distortion noted in either breast. There has been no significant interval change compared to prior exams. Targeted ultrasound was performed of the area of pain pointed out by the patient, in the left breast from 9 to 10:00. No suspicious masses or other suspicious sonographic abnormalities are evident. IMPRESSION: ACR BI-RADS CATEGORY 1: NEGATIVE, TARGETED ULTRASOUND ACR BI-RADS CATEGORY 1: NEGATIVE No suspicious mammographic or sonographic abnormality at the site of intermittent left medial breast pain. There is no mammographic or targeted sonographic evidence of malignancy. Recommend clinical follow-up for left breast pain, and recommend routine bilateral screening mammograms in one year. The patient has been verbally notified of the results. Approximately 10% of breast cancers are not detected with mammography. A negative mammographic repor t should not delay biopsy if a clinically suggestive mass is present. Lissa Kate M.D. /:12/27/2016 10:51:49 Proposal Lead Writer: Sydnee Crowley, [facility] letter sent: Normal 1/2 BI-RADS Code: ACR BI-RADS Category 1: Negative Ultrasound BI-RADS: ACR BI-RADS Category 1: Negative
== END | disposition home or self-care (01) ==
LOC: C.MAMM 10:23
PROVIDERS: ATTEND Family Medicine
DX: N64.4 Mastodynia (principal)

== ENCOUNTER → 2017-03-05 | Outpatient (CLI) | payer OTHER | END | disposition home or self-care (01) | LOC: C.LABPVFM 11:10 | PROVIDERS: ATTEND Family Medicine | DX: L03.211 Cellulitis of face (principal) ==

== ENCOUNTER → 2017-03-15 | Outpatient (CLI) | payer OTHER ==
[2017-03-15 12:35] LABS: ALT/SGPT 20 U/L (12-78); BLOOD UREA NITROGEN 15 mg/dl (7-18); BUN/CREATININE RATIO 21.3 (10-20); CALCIUM 9.3 mg/dl (8.5-10.1); CARBON DIOXIDE 25 mmol/L (21-32); CHLORIDE 103 mmol/L (98-107); CHOLESTEROL 183 mg/dl (0-200); CREATININE 0.71 mg/dl (0.60-1.20); GLUCOSE 81 mg/dl (70-99); POTASSIUM 3.7 mmol/L (3.5-5.1); SODIUM 137 mmol/L (136-145); TRIGLYCERIDES 179 mg/dl (0-150); VERY LOW DENSITY LIPOPROT CALC 36 mg/dl
[2017-03-15 12:45] LABS: ALB/GLOB RATIO 0.8 (0.9-2); ALKALINE PHOSPHATASE 76 U/L (45-117); AST/SGOT 13 U/L (15-37); CHOLESTEROL/HDL RATIO 4.6; HDL CHOLESTEROL 40 mg/dl; LDL CHOLESTEROL CALCULATED 107 mg/dl
[2017-03-15 13:03] LABS: ESTIMATED AVERAGE GLUCOSE 226 mg/dl; HA1C FLAG Normal (Normal)
== END | disposition home or self-care (01) ==
LOC: C.LABPVFM 10:00
PROVIDERS: ATTEND Family Medicine
DX: E11.9 Type 2 diabetes mellitus without complications (principal); I10 Essential (primary) hypertension; L03.211 Cellulitis of face; F32.9 Major depressive disorder, single episode, unspecified; E78.00 Pure hypercholesterolemia, unspecified; E03.9 Hypothyroidism, unspecified; Z22.322 Carrier or suspected carrier of Methicillin resistant Staphylococcus aureus

== ENCOUNTER 2017-04-05 23:31 | Emergency (ER) | payer OTHER ==
[~2017-04-05] VITALS: Ht 152.4 cm; Wt 100.7 kg
[~2017-04-05 23:31] MED LIST changes: -ACET-1256 PO; -AMOX1TAB43 PO; -IBUP-1050 PO; -INSU1.2I SC; -LPR25 PO; -SNG10 PO
[2017-04-05 23:36] VITALS: TEMP 36.7; Ht 152.4 cm; Wt 100.7 kg
--- NOTE | 2017-04-05 23:59 | EMERGENCY ROOM VISIT NOTE ---
History Report prepared by Aakash: Graham Aquino Under the Supervision of: Dr. Zakiya Gomez D.O. First contact with patient: 23:42 Chief Complaint: HYPERGLYCEMIA Stated Complaint: HIGH BLOOD, BLOATED Nursing Triage Summary: "my sugars were over 600", reports she checked about an hour ago, called PCP and referred here. Pt is Diabetic, took her Novolog this am. Pt didn't take anything tonight, PCP told her not to. Pt c/o bloating, increased urination over the last few days, increased thirst. "I drank a gallon of tea in less than a day". History of Present Illness The patient is a 51 year old female who presents to the Emergency Room with complaints of hyperglycemia that began 3 days ago. The patient has a past medical history of diabetes. She noticed that her sugars have been running high. 1 hour ago, she checked her sugars, and they were "over 600." She called her PCP and was told to not take her evening medications and to come to the ER. She usually takes NovoLog 20 units PO with each meal. Her sugars are currently 503. She states that she has been doing well with her diet and "does not eat that much." She is also experiencing an increased thirst, frequent urination, abdomen bloating, leg cramping, chest pressure, and pedal edema. She also has increased shortness of breath with exertion. She notes that she has been under a lot of stress recently. She denies any fevers or cough. Source of History: patient Onset: 3 days ago Position: other (global) Symptom Intensity: Blood sugar is 503 Quality: other (Hyperglycemia) Timing: constant Associated Symptoms: + chest pain (pressure), + SOB (With exertion), + urinary symptoms (Frequent urination), No fevers, No cough Note: She is experiencing abdominal bloating, an increased thirst, and leg cramping. Review of Systems See HPI for pertinent positives & negatives. A total of 10 systems reviewed and were otherwise negative. Past Medical & Surgical Medical Problems: (1) Diabetes mellitus type 2 in obese (2) Dyslipidemia (3) GERD (gastroesophageal reflux disease) (4) Hepatitis (5) HTN (hypertension) (6) Hypothyroidism (7) Leaky heart valve (8) Mitral regurgitation (9) Morbid obesity with BMI of 40.0-44.9, adult (10) MRSA (methicillin resistant Staphylococcus aureus) (11) ANA (obstructive sleep apnea) (12) Panniculitis (13) Patella fracture (14) Post-op pain Surgical Problems: (1) History of carpal tunnel surgery (2) History of hysterectomy (3) History of tonsillectomy and adenoidectomy (4) History of tubal ligation (5) Hx of total knee arthroplasty Family History Diabetes mellitus FH: heart disease FH: lung disease Hypertension Seizures Social History Smoking Status: Never Smoker Alcohol Use: none Drug Use: none Marital Status: Housing Status: lives with significant other Occupation Status: disabled Current/Historical Medications Scheduled Aspirin (Aspirin Ec), 81 MG PO DAILY Atorvastatin (Lipitor), 20 MG PO PM Cetirizine (Zyrtec), 10 MG PO DAILY Fluticasone Furoate-Vilanterol (Breo Ellipta), 1 PUFF INH DAILY Gabapentin (Neurontin), 400 MG PO QAM Insulin Aspart (Novolog Flexpen), 20 UNITS SC TIDM Insulin Glargine (Toujeo Solostar), 60 UNITS SQ QAM Insulin Glargine (Toujeo Solostar), 40 UNITS SC QPM Levothyroxine Sodium (Levothyroxine Sodium), 1,400 MCG PO DAILY Lisinopril (Lisinopril), 2.5 MG PO DAILY Loratadine (Claritin), 10 MG PO DAILY Magnesium Oxide (Mag-Ox), 400 MG PO BID Metoprolol Succ (Toprol Xl) (Toprol-Xl), 50 MG PO DAILY Venlafaxine Hcl (Effexor Extended Rel), 150 MG PO DAILY Scheduled PRN Albuterol Hfa (Ventolin Hfa), 2-4 PUFFS INH Q6H PRN for ASTHMA Guaifenesin (Mucus Relief), 400 MG PO DAILY PRN for CONGESTION Meclizine Hcl (Meclizine Hcl), 25 MG PO TID PRN for Dizziness or Vertigo Nitroglycerin (Nitrostat), 0.4 MG UT UD PRN for Chest Pain Allergies Coded Allergies: Daptomycin (Verified Allergy, Severe, SHORTNESS OF BREATH, 04/06/17) 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 Extraocular eye muscles are intact, and sclera are anicteric. Nose - moist nasal mucosa without discharge. Mouth - moist buccal mucosa. Oropharynx is nonerythematous and there is no tonsillar exudate or edema noted. Neck: Supple; no JVD, nuchal rigidity, cervical lymphadenopathy. Heart: Regular rate and rhythm. There is a normal S1 and S2 with no murmurs, clicks, or gallops appreciated. Lungs: Diminished breath sounds at the bases. No wheezes, rales, or rhonchi. Abdomen: Soft, completely nontender, but significantly distended, with good bowel sounds. There are no palpable pulsatile masses or hepatosplenomegaly. There is no guarding, rigidity, or rebound noted. Extremities: No evidence of cyanosis, clubbing, or edema. There are easily palpable peripheral pulses. Skin: warm and dry with good turgor and no rashes. Medical Decision & Procedures ER Provider Diagnostic Interpretation: X-ray results as stated below per interpretation by me: CHEST X-RAY: Cardiomegaly, no pulmonary infiltrates or pleural effusions. Per me. Laboratory Results 04/06/17 00:12 Red Blood Count 5.26, Mean Corpuscular Volume 77.8, Mean Corpuscular Hemoglobin 27.0, Mean Corpuscular Hemoglobin Concent 34.7, Mean Platelet Volume 9.6, Neutrophils (%) (Auto) 58.1, Lymphocytes (%) (Auto) 33.6, Monocytes (%) (Auto) 5.1, Eosinophils (%) (Auto) 2.8, Basophils (%) (Auto) 0.1, Neutrophils # (Auto) 5.35, Lymphocytes # (Auto) 3.09, Monocytes # (Auto) 0.47, Eosinophils # (Auto) 0.26, Basophils # (Auto) 0.01 04/06/17 00:12 Test 04/06/17 00:12 04/06/17 02:18 White Blood Count 9.21 K/uL (4.8-10.8) Red Blood Count 5.26 M/uL (4.2-5.4) Hemoglobin 14.2 g/dL (12.0-16.0) Hematocrit 40.9 % (37-47) Mean Corpuscular Volume 77.8 fL (80-100) Mean Corpuscular Hemoglobin 27.0 pg (25-34) Mean Corpuscular Hemoglobin Concent 34.7 g/dl (32-36) Platelet Count 258 K/uL (130-400) Mean Platelet Volume 9.6 fL (7.4-10.4) Neutrophils (%) (Auto) 58.1 % Lymphocytes (%) (Auto) 33.6 % Monocytes (%) (Auto) 5.1 % Eosinophils (%) (Auto) 2.8 % Basophils (%) (Auto) 0.1 % Neutrophils # (Auto) 5.35 K/uL (1.4-6.5) Lymphocytes # (Auto) 3.09 K/uL (1.2-3.4) Monocytes # (Auto) 0.47 K/uL (0.11-0.59) Eosinophils # (Auto) 0.26 K/uL (0-0.5) Basophils # (Auto) 0.01 K/uL (0-0.2) RDW Standard Deviation 36.0 fL (36.4-46.3) RDW Coefficient of Variation 12.7 % (11.5-14.5) Immature Granulocyte % (Auto) 0.3 % Immature Granulocyte # (Auto) 0.03 K/uL (0.00-0.02) Urine Color YELLOW Urine Appearance CLEAR (CLEAR) Urine pH 6.5 (4.5-7.5) Urine Specific [place] 1.027 (1.000-1.030) Urine Protein NEG (NEG) Urine Glucose (UA) 3+ (NEG) Urine Ketones NEG (NEG) Urine Occult Blood NEG (NEG) Urine Nitrite NEG (NEG) Urine Bilirubin NEG (NEG) Urine Urobilinogen NEG (NEG) Urine Leukocyte Esterase NEG (NEG) Anion Gap 10.0 mmol/L (3-11) Est Creatinine Clear Calc Drug Dose 57.8 ml/min Estimated GFR () 59.8 Estimated GFR (Non- 51.6 BUN/Creatinine Ratio 20.8 (10-20) Calcium Level 9.0 mg/dl (8.5-10.1) Total Bilirubin 0.5 mg/dl (0.2-1) Aspartate Amino Transf (AST/SGOT) 14 U/L (15-37) Alanine Aminotransferase (ALT/SGPT) 18 U/L (12-78) Alkaline Phosphatase 85 U/L (45-117) Total Creatine Kinase 56 U/L (26-192) Creatine Kinase MB 1.3 ng/ml (0.5-3.6) Creatine Kinase MB Ratio 2.3 (0-3.0) Troponin I < 0.015 ng/ml (0-0.045) Total Protein 7.3 gm/dl (6.4-8.2) Albumin 3.1 gm/dl (3.4-5.0) Globulin 4.2 gm/dl (2.5-4.0) Albumin/Globulin Ratio 0.7 (0.9-2) Beta-Hydroxybutyric Acid 1.53 mg/dL (0.2-2.81) Chemistry Specimen Hemolysis Bedside Glucose 235 mg/dl (70-90) Laboratory results per my review. Medications Administered Medications (Trade) Dose Ordered Sig/Viviana Route Start Time Stop Time Status Last Admin Dose Admin Sodium Chloride 1,000 ml @ 999 mls/hr Q1H1M STAT IV 04/06/17 01:15 04/06/17 02:15 DC 04/06/17 01:44 999 MLS/HR Insulin Human Regular (novoLIN-R U-100 PER UNIT) 10 units NOW STAT IV 04/06/17 01:15 04/06/17 01:17 DC 04/06/17 01:42 10 UNITS Procedure Insulin Human Regular 10 units IV Sodium Chloride 1000 ml @ 999 mls/hr IV ECG Indication: other (Hyperglycemia) Rate (beats per minute): 67 Rhythm: normal sinus Findings: no acute ischemic change, other (Poor baseline) ED Course 2342: Past medical records reviewed. The patient was evaluated in room B11B. A complete history and physical exam was performed. An IV lock was initiated and labs are drones above. Twelve-lead EKG was obtained as described above. The patient went for a chest x-ray 0115: Ordered Insulin Human Regular 10 units IV, Sodium Chloride 1000 ml @ 999 mls/hr IV. 0239: The patient is feeling well. Her Danyel horse has subsided. Her sugars are down to 288. 0246: Upon reevaluation, the patient is resting. I discussed findings and results with her. She verbalized agreement of the treatment plan. She was discharged home. Medical Decision The patient is a 51 year old female who presents to the ED with hyperglycemia. Differential diagnosis includes anxiety, CHF, cardiac ischemia, diabetic hyperglycemia, and DKA. I reviewed the patient's past medical records. She had laboratory tests done on March 15, 2017 by her PCP. They showed a hemoglobin A1C level of 9.5. I attest that I have personally reviewed the patient's current medication list. Patient was found to have normal blood pressure on screening and does not require follow-up. Laboratory Results: No leukocytosis, stable H&H, low sodium at 131, chloride 96, anion gap 10, BUN 25, creatinine 1.2, glucose 488, BHA 1.5, urinalysis normal except 3+ glucose, and cardiac enzymes negative. This is a 51-year-old female patient with diabetes who presents to emergency department with high blood sugars. There is no evidence of DKA. The patient does admit to being under significant stress as a result of family situations. I've encouraged patient to follow-up with her PCP later today to discuss her insulin dosing. She was instructed to keep a accurate food log as well as an accurate blood sugar log. She has an appointment scheduled on Sunday with her senior web designer. The patient had described having intermittent episodes of chest pressure. This could be secondary to stress and anxiety. EKG was unremarkable and she had negative cardiac enzymes. She was told to return to the emergency department she developed any worsening chest pressure or shortness of breath. I strongly encouraged the patient to minimize her stress and anxiety in an effort to take the best care of herself. Impression Primary Impression: Hyperglycemia due to type 2 diabetes mellitus Scribe Attestation The scribe's documentation has been prepared under my direction and personally reviewed by me in its entirety. I confirm that the note above accurately reflects all work, treatment, procedures, and medical decision making performed by me. Departure Information Dispostion Home / Self-Care Referrals Madison Vivar M.D. (PCP) Forms HOME CARE DOCUMENTATION FORM, IMPORTANT VISIT INFORMATION, WORK / SCHOOL INSTRUCTIONS Patient Instructions ED Hyperglycemia Diabetic, My [facility] Additional Instructions Rest. Take plenty of clear liquids Take insulin as directed starting in the morning. Check your BSG before bed. Follow up with PCP in AM for insulin dose. Follow up with Gristmill Operator on Sunday Problem Qualifiers Primary Impression: Hyperglycemia due to type 2 diabetes mellitus Diabetes mellitus nursing home insulin use: with calculation reviewer use Qualified Codes: E11.65 - Type 2 diabetes mellitus with hyperglycemia; Z79.4 - skilled nursing ( current) use of insulin
[2017-04-06] MEDS ORDERED: INSU1.2I SC (00:37)
[2017-04-06 00:39] LABS: BASO % 0.1 %; BASO ABS # 0.01 K/uL (0-0.2); COMPLETE YES; EOS % 2.8 %; HEMATOCRIT 40.9 % (37-47); IG% 0.3 %; LYMPH % 33.6 %; LYMPH ABS # 3.09 K/uL (1.2-3.4); MEAN CELL VOLUME 77.8 fL (80-100); MEAN CORPUSCULAR HGB CONC 34.7 g/dl (32-36); MEAN PLATELET VOLUME 9.6 fL (7.4-10.4); MONO % 5.1 %; NEUT % 58.1 %; PLATELET COUNT 258 K/uL (130-400); RED BLOOD COUNT 5.26 M/uL (4.2-5.4); URINE APPEARANCE CLEAR (CLEAR); URINE BILIRUBIN NEG (NEG); URINE COLOR YELLOW; URINE NITRITE NEG (NEG); URINE PH 6.5 (4.5-7.5); URINE SPECIFIC GRAVITY 1.027 (1.000-1.030); UROBILINOGEN NEG (NEG); WHITE BLOOD COUNT 9.21 K/uL (4.8-10.8)
[2017-04-06 00:43] LABS: MANUAL MICROSCOPIC REQUIRED? NO; REVIEW REQ? NO
[2017-04-06 01:07] LABS: ALB/GLOB RATIO 0.7 (0.9-2); ALKALINE PHOSPHATASE 85 U/L (45-117); ALT/SGPT 18 U/L (12-78); AST/SGOT 14 U/L (15-37); BLOOD UREA NITROGEN 25 mg/dl (7-18); BUN/CREATININE RATIO 20.8 (10-20); CARBON DIOXIDE 25 mmol/L (21-32); CHLORIDE 96 mmol/L (98-107); CKMB/CK RATIO 2.3 (0-3.0); GLUCOSE 488 mg/dl (70-99); POTASSIUM 4.1 mmol/L (3.5-5.1); SODIUM 131 mmol/L (136-145)
[2017-04-06] MEDS ORDERED: SODIUM CHLORIDE 0.9% 1000ML 1,000 ML IV STA (01:15)
[2017-04-06] MEDS ORDERED: NovoLIN-R INSULIN PER UNIT CHARGE IV STA (01:15)
[2017-04-06 01:25] LABS: BETA-HYDROXYBUTYRATE 1.53 mg/dL (0.2-2.81)
[2017-04-06 02:54] VITALS: BP 111/62; PULSE 78; O2SAT 97
--- NOTE | 2017-04-06 06:14 | DIAGNOSTIC IMAGING REPORT ---
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 The cardiomediastinal silhouette is normal. The lungs are clear. The pulmonary vasculature is normal. IMPRESSION: Negative chest. Electronically signed by: Iker Avelar M.D. 04/06/2017 6:12 AM Dictated Date/Time: 04/06/2017 6:12 AM
== END 2017-04-06 02:54 | disposition home or self-care (01) ==
LOC: C.EDB 23:32
DX: E11.65 Type 2 diabetes mellitus with hyperglycemia (principal); I10 Essential (primary) hypertension; E32.9 Disease of thymus, unspecified; E78.00 Pure hypercholesterolemia, unspecified; E03.9 Hypothyroidism, unspecified; E66.9 Obesity, unspecified; Z68.41 Body mass index [BMI] 40.0-44.9, adult

== ENCOUNTER → 2017-05-02 | Outpatient (CLI) | payer OTHER ==
[~2017-05-02] MED LIST changes: +INSU1.2I SC; +LPR25 PO; -MIRA100T PO; +SNG10 PO
--- NOTE | 2017-05-02 11:21 | DIAGNOSTIC IMAGING REPORT ---
CHEST AND ABDOMEN 2 VIEWS HISTORY: Generalized abdominal pain. COMPARISON: Chest 04/06/2017. Abdomen and pelvis CT 07/27/2015. FINDINGS: The heart remains mildly enlarged. The lungs are clear. No pleural effusions. No pneumothorax. No pneumoperitoneum. No pneumatosis. The bowel gas pattern is unremarkable. No evidence for bowel obstruction. No renal or ureteral calculi. IMPRESSION: No acute cardiopulmonary process. No evidence for bowel obstruction. Stable mild cardiomegaly. Electronically signed by: Anthony Davis M.D. 05/02/2017 11:20 AM Dictated Date/Time: 05/02/2017 11:18 AM
== END | disposition home or self-care (01) ==
LOC: C.RADPV 10:49
PROVIDERS: ATTEND Family Medicine
DX: R10.9 Unspecified abdominal pain (principal)

== ENCOUNTER 2017-05-06 01:12 | Emergency (ER) | payer OTHER ==
[~2017-05-06] VITALS: Ht 152.4 cm; Wt 105.5 kg
[~2017-05-06 01:12] MED LIST changes: -LPR25 PO; -SNG10 PO
[2017-05-06 01:26] VITALS: TEMP 36.5; Ht 152.4 cm; Wt 105.5 kg
[2017-05-06] MEDS ORDERED: SODIUM CHLORIDE 0.9% 1000ML 1,000 ML IV ONE (02:15)
[2017-05-06 02:49] LABS: BASO % 0.2 %; BASO ABS # 0.02 K/uL (0-0.2); COMPLETE YES; EOS % 3.5 %; HEMATOCRIT 40.9 % (37-47); IG% 0.2 %; LYMPH ABS # 4.13 K/uL (1.2-3.4); MEAN CELL VOLUME 79.9 fL (80-100); MEAN CORPUSCULAR HGB CONC 33.7 g/dl (32-36); MEAN PLATELET VOLUME 9.7 fL (7.4-10.4); MONO % 4.9 %; NEUT % 57.2 %; PLATELET COUNT 282 K/uL (130-400); RED BLOOD COUNT 5.12 M/uL (4.2-5.4); WHITE BLOOD COUNT 12.13 K/uL (4.8-10.8)
[2017-05-06 03:20] LABS: ALB/GLOB RATIO 0.8 (0.9-2); BUN/CREATININE RATIO 23.5 (10-20); CALCIUM 9.1 mg/dl (8.5-10.1); CREATININE 0.96 mg/dl (0.60-1.20); POTASSIUM 4.1 mmol/L (3.5-5.1)
[2017-05-06 03:27] LABS: URINE APPEARANCE CLOUDY (CLEAR); URINE BILIRUBIN NEG (NEG); URINE COLOR YELLOW; URINE EPITHELIAL CELL AUTO >30 /lpf (0-5); URINE NITRITE NEG (NEG); URINE SPECIFIC GRAVITY 1.017 (1.000-1.030); UROBILINOGEN NEG (NEG); ZZUR CULT IF INDIC CLEAN CATCH NO
[2017-05-06 03:33] LABS: MANUAL MICROSCOPIC REQUIRED? NO; REVIEW REQ? NO
[2017-05-06] MEDS ORDERED: MAGNESIUM CITRATE 296 ML/BTL PO ONE (05:45)
[2017-05-06 06:23] VITALS: BP 142/85; PULSE 53; O2SAT 98
--- NOTE | 2017-05-06 08:14 | DIAGNOSTIC IMAGING REPORT ---
ABDOMEN AND PELVIS CT WITHOUT CONTRAST CT DOSE: 1699.22 mGy.cm HISTORY: generalized abdominal pain. Hx of constipation and diabetes TECHNIQUE: Multiaxial CT images of the abdomen and pelvis were performed without contrast. A dose lowering technique was utilized adhering to the principles of ALARA. COMPARISON STUDY: Pelvis CT 05/12/2016. FINDINGS: Left basilar subsegmental atelectasis. No pneumoperitoneum. No pneumatosis. The unenhanced liver, spleen, adrenal glands, kidneys, pancreas, and gallbladder are unremarkable. A single distended vessel seen extending from the portal splenic confluence to the left renal vein. No retroperitoneal lymphadenopathy. The bladder is unremarkable. Hysterectomy. Suboptimal evaluation for bowel pathology due to the lack of intravenous and oral contrast. However, there is no definite bowel wall thickening or obstruction. There are a few colonic diverticula. Normal appendix. IMPRESSION: 1. No definite bowel wall thickening or obstruction. 2. No renal stones or hydronephrosis. 3. Hysterectomy. 4. Normal appendix. Electronically signed by: Anthony Davis M.D. 05/06/2017 8:12 AM Dictated Date/Time: 05/06/2017 8:07 AM
--- NOTE | 2017-05-07 02:07 | EMERGENCY ROOM VISIT NOTE ---
History First contact with patient: 01:48 Chief Complaint: ABDOMINAL PAIN Stated Complaint: ABDOMINAL PAIN/CHEST PAIN Nursing Triage Summary: Pt c/o abdominal pain for the past several weeks. Pt also states she has not had a "good bowel movement" in 2 weeks, but states she had a small BM today. History of Present Illness The patient is a 51 year old female who presents to the Emergency Room with complaints of generalized abdominal pain for the past several weeks. She states that she has not had a normal bowel movement in about 2 weeks. She did pass a small amount of stool earlier today, but states that it was uncomfortable. The patient was babysitting her grandchildren lennox, and complained of the abdominal discomfort to her daughter. Her daughter contacted 911, prompting the patient's arrival to the department. The patient has not had fever or chills. She has intermittent chest pain, but this has been chronic in nature and does not appear to be associated with activity. The patient has been eating and urinating as normal. No recent antibiotic use or travel history. She rates her current discomfort a 5/10 and does not identify other aggravating or alleviating factors. Review of Systems More than 10 systems were reviewed and otherwise negative with the exception of history of present illness. Past Medical/Surgical History Medical Problems: (1) Diabetes mellitus type 2 in obese (2) Dyslipidemia (3) GERD (gastroesophageal reflux disease) (4) Hepatitis (5) HTN (hypertension) (6) Hypothyroidism (7) Leaky heart valve (8) Mitral regurgitation (9) Morbid obesity with BMI of 40.0-44.9, adult (10) MRSA (methicillin resistant Staphylococcus aureus) (11) AAN (obstructive sleep apnea) (12) Panniculitis (13) Patella fracture (14) Post-op pain Surgical Problems: (1) History of carpal tunnel surgery (2) History of hysterectomy (3) History of tonsillectomy and adenoidectomy (4) History of tubal ligation (5) Hx of total knee arthroplasty Family History Diabetes mellitus FH: heart disease FH: lung disease Hypertension Seizures Social History Smoking Status: Never Smoker Alcohol Use: none Drug Use: none Marital Status: Housing Status: lives with significant other Occupation Status: disabled Current/Historical Medications Scheduled Aspirin (Aspirin Ec), 81 MG PO DAILY Atorvastatin (Lipitor), 20 MG PO PM Cetirizine (Zyrtec), 10 MG PO DAILY Fluticasone Furoate-Vilanterol (Breo Ellipta), 1 PUFF INH DAILY Gabapentin (Neurontin), 400 MG PO QAM Insulin Aspart (Novolog Flexpen), 25 UNITS SC TIDM Insulin Glargine (Toujeo Solostar), 60 UNITS SQ QAM Insulin Glargine (Toujeo Solostar), 60 UNITS SC QPM Levothyroxine Sodium (Levothyroxine Sodium), 1,400 MCG PO DAILY Lisinopril (Lisinopril), 2.5 MG PO DAILY Loratadine (Claritin), 10 MG PO DAILY Magnesium Oxide (Mag-Ox), 400 MG PO BID Metoprolol Succ (Toprol Xl) (Toprol-Xl), 50 MG PO DAILY Venlafaxine Hcl (Effexor Extended Rel), 150 MG PO DAILY Scheduled PRN Albuterol Hfa (Ventolin Hfa), 2-4 PUFFS INH Q6H PRN for ASTHMA Meclizine Hcl (Meclizine Hcl), 25 MG PO TID PRN for Dizziness or Vertigo Nitroglycerin (Nitrostat), 0.4 MG UT UD PRN for Chest Pain Allergies Coded Allergies: Daptomycin (Verified Allergy, Severe, SHORTNESS OF BREATH, 05/06/17) 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 Clindamycin (Verified Allergy, Intermediate, HIVES, 05/06/17) Sulfa Antibiotics (Verified Allergy, Intermediate, BACTRIM-HIVES, 05/06/17) BEE STING (Verified Allergy, Unknown, 04/06/17) Trimethoprim (Verified Allergy, Unknown, HIVES, 05/06/17) Physical Exam Vital Signs Date Time Temp Pulse Resp B/P (MAP) Pulse Ox O2 Delivery O2 Flow Rate FiO2 05/06/17 06:23 53 142/85 98 05/06/17 05:37 52 05/06/17 05:12 52 13 05/06/17 05:01 99/54 05/06/17 04:57 54 17 05/06/17 04:55 55 20 107/62 93 Room Air 05/06/17 04:42 51 18 05/06/17 04:27 51 16 05/06/17 04:12 52 8 94 05/06/17 04:03 106/69 05/06/17 03:57 53 23 95 05/06/17 03:42 52 22 96 05/06/17 03:27 59 24 138/83 98 05/06/17 03:22 58 23 136/83 92 Room Air 05/06/17 02:27 57 19 96 05/06/17 02:12 54 19 96 05/06/17 02:01 141/90 05/06/17 01:57 54 20 97 05/06/17 01:42 56 23 97 05/06/17 01:27 56 22 98 05/06/17 01:26 36.5 63 23 152/99 99 Room Air 05/06/17 01:20 61 05/06/17 01:20 152/99 Pain Rating (0-10): 0 Physical Exam VITALS: Vitals are noted on the nurse's note and reviewed by myself. Vital signs stable. GENERAL: Well-developed, well-nourished, white female, who is in no acute distress and resting comfortably. Patient is cooperative with the examination. HEAD: Normocephalic atraumatic. HEART: Regular rate and rhythm without murmurs gallops or rubs. LUNGS: Clear to auscultation bilaterally without wheezes, rales or rhonchi. No retractions or accessory muscle use. ABDOMEN: Positive normal bowel sounds x 4. Soft, protuberant, nontender, without masses or organomegaly. No guarding or rebound tenderness. MUSCULOSKELETAL: No muscle atrophy, erythema, or edema noted. Full range of motion without joint tenderness in all extremities. Medical Decision & Procedures ER Provider Diagnostic Interpretation: ABDOMEN AND PELVIS CT WITHOUT CONTRAST CT DOSE: 1699.22 mGy.cm HISTORY: generalized abdominal pain. Hx of constipation and diabetes TECHNIQUE: Multiaxial CT images of the abdomen and pelvis were performed without contrast. A dose lowering technique was utilized adhering to the principles of ALARA. COMPARISON STUDY: Pelvis CT 05/12/2016. FINDINGS: Left basilar subsegmental atelectasis. No pneumoperitoneum. No pneumatosis. The unenhanced liver, spleen, adrenal glands, kidneys, pancreas, and gallbladder are unremarkable. A single distended vessel seen extending from the portal splenic confluence to the left renal vein. No retroperitoneal lymphadenopathy. The bladder is unremarkable. Hysterectomy. Suboptimal evaluation for bowel pathology due to the lack of intravenous and oral contrast. However, there is no definite bowel wall thickening or obstruction. There are a few colonic diverticula. Normal appendix. IMPRESSION: 1. No definite bowel wall thickening or obstruction. 2. No renal stones or hydronephrosis. 3. Hysterectomy. 4. Normal appendix. Laboratory Results 05/06/17 02:35 Red Blood Count 5.12, Mean Corpuscular Volume 79.9, Mean Corpuscular Hemoglobin 27.0, Mean Corpuscular Hemoglobin Concent 33.7, Mean Platelet Volume 9.7, Neutrophils (%) (Auto) 57.2, Lymphocytes (%) (Auto) 34.0, Monocytes (%) (Auto) 4.9, Eosinophils (%) (Auto) 3.5, Basophils (%) (Auto) 0.2, Neutrophils # (Auto) 6.94, Lymphocytes # (Auto) 4.13, Monocytes # (Auto) 0.60, Eosinophils # (Auto) 0.42, Basophils # (Auto) 0.02 05/06/17 02:35 Test 05/06/17 02:35 05/06/17 02:51 05/06/17 03:15 White Blood Count 12.13 K/uL (4.8-10.8) Red Blood Count 5.12 M/uL (4.2-5.4) Hemoglobin 13.8 g/dL (12.0-16.0) Hematocrit 40.9 % (37-47) Mean Corpuscular Volume 79.9 fL (80-100) Mean Corpuscular Hemoglobin 27.0 pg (25-34) Mean Corpuscular Hemoglobin Concent 33.7 g/dl (32-36) Platelet Count 282 K/uL (130-400) Mean Platelet Volume 9.7 fL (7.4-10.4) Neutrophils (%) (Auto) 57.2 % Lymphocytes (%) (Auto) 34.0 % Monocytes (%) (Auto) 4.9 % Eosinophils (%) (Auto) 3.5 % Basophils (%) (Auto) 0.2 % Neutrophils # (Auto) 6.94 K/uL (1.4-6.5) Lymphocytes # (Auto) 4.13 K/uL (1.2-3.4) Monocytes # (Auto) 0.60 K/uL (0.11-0.59) Eosinophils # (Auto) 0.42 K/uL (0-0.5) Basophils # (Auto) 0.02 K/uL (0-0.2) RDW Standard Deviation 38.9 fL (36.4-46.3) RDW Coefficient of Variation 13.5 % (11.5-14.5) Immature Granulocyte % (Auto) 0.2 % Immature Granulocyte # (Auto) 0.02 K/uL (0.00-0.02) Anion Gap 6.0 mmol/L (3-11) Est Creatinine Clear Calc Drug Dose 74.4 ml/min Estimated GFR () 78.3 Estimated GFR (Non- 67.5 BUN/Creatinine Ratio 23.5 (10-20) Calcium Level 9.1 mg/dl (8.5-10.1) Total Bilirubin 0.7 mg/dl (0.2-1) Aspartate Amino Transf (AST/SGOT) 23 U/L (15-37) Alanine Aminotransferase (ALT/SGPT) 22 U/L (12-78) Alkaline Phosphatase 77 U/L (45-117) Total Protein 7.0 gm/dl (6.4-8.2) Albumin 3.0 gm/dl (3.4-5.0) Globulin 4.0 gm/dl (2.5-4.0) Albumin/Globulin Ratio 0.8 (0.9-2) Lipase 175 U/L (73-393) Chemistry Specimen Hemolysis Bedside Troponin I < 0.030 ng/ml (0-0.045) Urine Color YELLOW Urine Appearance CLOUDY (CLEAR) Urine pH 6.0 (4.5-7.5) Urine Specific [place] 1.017 (1.000-1.030) Urine Protein NEG (NEG) Urine Glucose (UA) TRACE (NEG) Urine Ketones NEG (NEG) Urine Occult Blood NEG (NEG) Urine Nitrite NEG (NEG) Urine Bilirubin NEG (NEG) Urine Urobilinogen NEG (NEG) Urine Leukocyte Esterase TRACE (NEG) Urine WBC (Auto) 1-5 /hpf (0-5) Urine RBC (Auto) 0-4 /hpf (0-4) Urine Hyaline Casts (Auto) 1-5 /lpf (0-5) Urine Epithelial Cells (Auto) >30 /lpf (0-5) Urine Bacteria (Auto) NEG (NEG) Medications Administered Medications (Trade) Dose Ordered Sig/Viviana Route Start Time Stop Time Status Last Admin Dose Admin Magnesium Citrate (Citrate Of Magnesia Soln) 296 ml NOW ONCE PO 05/06/17 05:45 05/06/17 05:46 DC 05/06/17 05:42 296 ML ECG Change: Sinus bradycardia @54bpm Low voltage QRS Nonspecific T wave abnormality Abnormal ECG When compared with ECG of 06-APR-2017 00:10, No significant change was found Confirmed by FRED LATIF ([id number]) on 05/06/2017 8:12:58 PM ED Course Physical exam and history were performed. Nursing notes, EMR, and Medication List were personally reviewed. Patient appears to have vague abdominal pain for more than 2 weeks. She is having difficulty with normal bowel movements, and is presenting today at the urging of her daughter. On examination the patient does not appear toxic. EKG was performed and was sinus bradycardia without ST elevation or evidence of ischemia as above. IV access was established and labs were obtained. The patient was hydrated with normal saline and CT scan was performed without contrast. The patient's blood work is as above and was reviewed. She has a very slightly elevated white blood cell count of 12,000. I am unsure of the etiology of this at this time. She does not have a significant anemia, bandemia, or gross electrolyte imbalance. Lipase and transaminases are nondiagnostic. Troponin [address] scan does not show significant acute process. On reevaluation the patient was found to be sleeping very comfortably in her emergency department bed. She continues without obvious signs of distress. I had a lengthy discussion with the patient regarding her care and options of treatment. The patient has a preference for discharge home, and this appears reasonable. The patient would like to try magnesium citrate at home, which will be provided from here. The patient does not appear to have an exam or findings consistent with an acute surgical abdomen. She does not appear to have a cardiac or pulmonary etiology of her symptoms. The patient may simply be exhibiting constipation, however I did recommend that she follow very closely with her primary care physician in the next 1-2 days. She was otherwise invited back to the ER with any new, worsening, or concerning symptoms. The patient voiced understanding of her plan and rated her discomfort a 0/10 at the time of departure. The chart was completed utilizing [employer] Voice Recognition Software. Grammatical errors, random word insertions, pronoun errors, and incomplete sentences are an occasional consequence of this system due to software limitations, ambient noise, and hardware issues. Any formal questions or concerns about the content, text, or information contained within the body of this dictation should be directly addressed to the provider for clarification. . Medical Decision Differential diagnosis: Etiologies such as appendicitis, diverticulitis, PUD, biliary pathology, UTI, pancreatitis, obstruction, mesenteric ischemia, aortic pathology, infections, inflammatory bowel disease, renal colic, as well as others were entertained. Impression Primary Impression: Abdominal pain Departure Information Dispostion Home / Self-Care Condition GOOD Forms Call Back Authorization, HOME CARE DOCUMENTATION FORM, IMPORTANT VISIT INFORMATION Patient Instructions My [facility] Additional Instructions You were seen and evaluated today on an emergency basis only. This is not a substitute for, or an effort to provide, complete comprehensive medical care. It is not possible to recognize and treat all injuries or illnesses in a single emergency department visit. For this reason it is recommended that you followup with your primary care physician this week for ongoing care and evaluation. Consider using magnesium citrate at home. Take half the bottle, wait one hour, and drink the other half. This will help elicit a bowel movement. Drink clear fluids and remain well hydrated. You are welcome to return to the emergency department anytime with new, worsening, or concerning symptoms.
== END 2017-05-06 06:25 | disposition home or self-care (01) ==
LOC: EDBD 01:12 → C.EDA 01:13
DX: R10.9 Unspecified abdominal pain (principal); E11.9 Type 2 diabetes mellitus without complications; E78.5 Hyperlipidemia, unspecified; K21.9 Gastro-esophageal reflux disease without esophagitis; I10 Essential (primary) hypertension; E03.9 Hypothyroidism, unspecified; E66.01 Morbid (severe) obesity due to excess calories; G47.30 Sleep apnea, unspecified; I34.0 Nonrheumatic mitral (valve) insufficiency; Z83.3 Family history of diabetes mellitus; Z82.49 Family history of ischemic heart disease and other diseases of the circulatory system; Z82.0 Family history of epilepsy and other diseases of the nervous system; Z79.82 Long term (current) use of aspirin; Z79.4 Long term (current) use of insulin

== ENCOUNTER 2017-06-23 01:10 | Emergency (ER) | payer OTHER ==
[~2017-06-23] VITALS: Ht 152.4 cm; Wt 100.7 kg
[~2017-06-23 01:10] MED LIST changes: -GUAI400T29 PO
[2017-06-23 01:16] VITALS: TEMP 36.8; Ht 152.4 cm; Wt 100.7 kg
[2017-06-23] MEDS ORDERED: LPR25 PO (02:03)
[2017-06-23] MEDS ORDERED: SNG10 PO (02:03)
[2017-06-23 02:04] LABS: BASO % 0.3 %; BASO ABS # 0.03 K/uL (0-0.2); COMPLETE YES; EOS % 2.9 %; HEMATOCRIT 38.6 % (37-47); IG% 0.4 %; LYMPH % 35.4 %; LYMPH ABS # 3.22 K/uL (1.2-3.4); MEAN CELL VOLUME 78.1 fL (80-100); MEAN CORPUSCULAR HEMOGLOBIN 27.9 pg (25-34); MEAN CORPUSCULAR HGB CONC 35.8 g/dl (32-36); MEAN PLATELET VOLUME 10.1 fL (7.4-10.4); MONO % 6.8 %; NEUT % 54.2 %; PLATELET COUNT 246 K/uL (130-400); RED BLOOD COUNT 4.94 M/uL (4.2-5.4)
[2017-06-23] MEDS ORDERED: METO50TA7 PO (02:04)
[2017-06-23 02:16] LABS: PROTHROMBIN TIME (PATIENT) 10.8 SECONDS (9.0-12.0)
[2017-06-23 02:29] LABS: BUN/CREATININE RATIO 18.7 (10-20); CALCIUM 8.7 mg/dl (8.5-10.1); CREATININE 0.96 mg/dl (0.60-1.20); POTASSIUM 3.8 mmol/L (3.5-5.1)
[2017-06-23 02:41] LABS: BETA-HYDROXYBUTYRATE 1.45 mg/dL (0.2-2.81)
[2017-06-23] MEDS ORDERED: NovoLIN-R INSULIN PER UNIT CHARGE IV STA (03:14)
--- NOTE | 2017-06-23 04:42 | EMERGENCY ROOM VISIT NOTE ---
History First contact with patient: 01:38 Chief Complaint: GI ASSESSMENT Stated Complaint: BLOOD IN STOOL Nursing Triage Summary: denies pain or n/v c/o one dark red stool with a small clot in it. History of Present Illness The patient is a 51 year old female who presents to the Emergency Room with complaints of blood in her stool. The patient reports that she had a bowel movement this evening and noticed blood clots on the toilet paper. She reports it was approximately 2 teaspoons of blood. It was dark blood clots with some bright red blood. She denies any rectal pain or abdominal pain. Her bowel movements have been normal for the past several days. She denies any history of GI bleeding. She has never had a colonoscopy. She denies any dizziness, weakness or lightheadedness. The patient does not take any anticoagulants. Review of Systems A complete 10 point review of systems was reviewed with the patient with pertinent positives and negatives as per history of present illness. All else were negative. Past Medical/Surgical History Medical Problems: (1) Diabetes mellitus type 2 in obese (2) Dyslipidemia (3) GERD (gastroesophageal reflux disease) (4) Hepatitis (5) HTN (hypertension) (6) Hypothyroidism (7) Leaky heart valve (8) Mitral regurgitation (9) Morbid obesity with BMI of 40.0-44.9, adult (10) MRSA (methicillin resistant Staphylococcus aureus) (11) ANA (obstructive sleep apnea) (12) Panniculitis (13) Patella fracture (14) Post-op pain Surgical Problems: (1) History of carpal tunnel surgery (2) History of hysterectomy (3) History of tonsillectomy and adenoidectomy (4) History of tubal ligation (5) Hx of total knee arthroplasty Family History Diabetes mellitus FH: heart disease FH: lung disease Hypertension Seizures Social History Smoking Status: Never Smoker Alcohol Use: none Drug Use: none Marital Status: Housing Status: lives with significant other Occupation Status: disabled Current/Historical Medications Scheduled Aspirin (Aspirin Ec), 81 MG PO DAILY Atorvastatin (Lipitor), 20 MG PO PM Cetirizine (Zyrtec), 10 MG PO DAILY Fluticasone Furoate-Vilanterol (Breo Ellipta), 1 PUFF INH DAILY Gabapentin (Neurontin), 400 MG PO QAM Insulin Aspart (Novolog Flexpen), 25 UNITS SC TIDM Insulin Glargine (Toujeo Solostar), 60 UNITS SQ QAM Insulin Glargine (Toujeo Solostar), 60 UNITS SC QPM Levothyroxine Sodium (Levothyroxine Sodium), 1,400 MCG PO DAILY Lisinopril (Lisinopril), 2.5 MG PO DAILY Loratadine (Claritin), 10 MG PO DAILY Magnesium Oxide (Mag-Ox), 400 MG PO BID Metoprolol Succ (Toprol Xl) (Toprol-Xl), 50 MG PO DAILY Montelukast Sod (Montelukast Sodium), 10 MG PO DAILY Venlafaxine Hcl (Effexor Extended Rel), 150 MG PO DAILY Scheduled PRN Albuterol Hfa (Ventolin Hfa), 2-4 PUFFS INH Q6H PRN for ASTHMA Meclizine Hcl (Meclizine Hcl), 25 MG PO TID PRN for Dizziness or Vertigo Nitroglycerin (Nitrostat), 0.4 MG UT UD PRN for Chest Pain Physical Exam Vital Signs Date Time Temp Pulse Resp B/P (MAP) Pulse Ox O2 Delivery O2 Flow Rate FiO2 06/23/17 04:57 78 18 128/86 95 Room Air 06/23/17 03:51 139/83 06/23/17 03:26 78 18 94/50 97 Room Air 06/23/17 01:16 36.8 66 18 147/85 94 Room Air Pain Rating (0-10): 0 Physical Exam VITALS: Vitals are noted on the nurse's note and reviewed by myself. Vital signs stable. GENERAL: This is a 51-year-old female, in no acute distress, nondiaphoretic, well-developed well-nourished. HEART: Regular rate and rhythm without murmurs gallops or rubs. LUNGS: Clear to auscultation bilaterally without wheezes, rales or rhonchi. ABDOMEN: Positive bowel sounds x 4. Soft, nontender to palpation without masses or organomegaly. RECTAL: No external hemorrhoids noted. Dark-colored stool, Hemoccult positive. NEURO: Patient was alert and oriented to person place and time. Medical Decision & Procedures Laboratory Results 06/23/17 01:45 Red Blood Count 4.94, Mean Corpuscular Volume 78.1, Mean Corpuscular Hemoglobin 27.9, Mean Corpuscular Hemoglobin Concent 35.8, Mean Platelet Volume 10.1, Neutrophils (%) (Auto) 54.2, Lymphocytes (%) (Auto) 35.4, Monocytes (%) (Auto) 6.8, Eosinophils (%) (Auto) 2.9, Basophils (%) (Auto) 0.3, Neutrophils # (Auto) 4.93, Lymphocytes # (Auto) 3.22, Monocytes # (Auto) 0.62, Eosinophils # (Auto) 0.26, Basophils # (Auto) 0.03 06/23/17 01:45 Test 06/23/17 01:45 06/23/17 04:07 White Blood Count 9.10 K/uL (4.8-10.8) Red Blood Count 4.94 M/uL (4.2-5.4) Hemoglobin 13.8 g/dL (12.0-16.0) Hematocrit 38.6 % (37-47) Mean Corpuscular Volume 78.1 fL (80-100) Mean Corpuscular Hemoglobin 27.9 pg (25-34) Mean Corpuscular Hemoglobin Concent 35.8 g/dl (32-36) Platelet Count 246 K/uL (130-400) Mean Platelet Volume 10.1 fL (7.4-10.4) Neutrophils (%) (Auto) 54.2 % Lymphocytes (%) (Auto) 35.4 % Monocytes (%) (Auto) 6.8 % Eosinophils (%) (Auto) 2.9 % Basophils (%) (Auto) 0.3 % Neutrophils # (Auto) 4.93 K/uL (1.4-6.5) Lymphocytes # (Auto) 3.22 K/uL (1.2-3.4) Monocytes # (Auto) 0.62 K/uL (0.11-0.59) Eosinophils # (Auto) 0.26 K/uL (0-0.5) Basophils # (Auto) 0.03 K/uL (0-0.2) RDW Standard Deviation 38.3 fL (36.4-46.3) RDW Coefficient of Variation 13.7 % (11.5-14.5) Immature Granulocyte % (Auto) 0.4 % Immature Granulocyte # (Auto) 0.04 K/uL (0.00-0.02) Prothrombin Time 10.8 SECONDS (9.0-12.0) Prothromb Time International Ratio 1.0 (0.9-1.1) Activated Partial Thromboplast Time 25.2 SECONDS (21.0-31.0) Partial Thromboplastin Ratio 1.0 Anion Gap 9.0 mmol/L (3-11) Est Creatinine Clear Calc Drug Dose 72.3 ml/min Estimated GFR () 78.3 Estimated GFR (Non- 67.5 BUN/Creatinine Ratio 18.7 (10-20) Calcium Level 8.7 mg/dl (8.5-10.1) Beta-Hydroxybutyric Acid 1.45 mg/dL (0.2-2.81) Bedside Glucose 186 mg/dl (70-90) Medications Administered Medications (Trade) Dose Ordered Sig/Viviana Route Start Time Stop Time Status Last Admin Dose Admin Insulin Human Regular (novoLIN-R U-100 PER UNIT) 10 units NOW STAT IV 06/23/17 03:14 06/23/17 03:15 DC 06/23/17 03:22 10 UNITS ED Course The patient was evaluated as above. Labs were drawn and IV access was obtained. Patient's glucose was elevated at 469. Patient was given 10 units insulin IV. Glucose was rechecked and was 186. Patient was reevaluated and findings were discussed. Discharge instructions were reviewed with the patient. The patient verbalized understanding of my assessment and treatment plan and was discharged home in good condition. Medical Decision Differential diagnosis includes hemorrhoids, GI bleed, anemia, colitis, diverticulitis, among others. The patient is a 51-year-old female who presents today complaining of rectal bleeding. Rectal exam did reveal Hemoccult-positive stool. Labs revealed no leukocytosis or anemia. Glucose was found to be significantly elevated and the patient admits that she ate a donut tonight and also forgot her insulin. She was given 10 units regular insulin and glucose was rechecked and was much better at 186. Patient was advised to follow-up with her primary care provider regarding her rectal bleeding as she will likely require further testing in the future. The patient's blood pressure did appear to be low at one point during her stay, however when it was rechecked with an appropriate size blood pressure cuff was within normal limits. Based on the patient's presentation and work up, I feel the patient is stable for outpatient treatment. The patient was educated to return to the emergency department for any worsening of their current condition or new/concerning symptoms. She will follow up with her PCP. Medication Reconcilliation Current Medication List: was personally reviewed by me Blood Pressure Screening Patient's blood pressure: Normal blood pressure Impression Primary Impression: Rectal bleeding Departure Information Dispostion Home / Self-Care Condition GOOD Referrals No Doctor, Assigned (PCP) Patient Instructions My [facility] Additional Instructions You were treated in the emergency department tonight for rectal bleeding. Your blood counts are stable. You will need to follow-up with your primary care provider for further testing. Call them first thing Sunday morning to schedule a follow-up appointment. Check your blood sugars closely, as your glucose was very elevated today. Return to the emergency department with worsening bleeding, lightheadedness, passing out, or any other new/concerning symptoms.
[2017-06-23 04:57] VITALS: BP 128/86; PULSE 78; O2SAT 95
== END 2017-06-23 04:59 | disposition home or self-care (01) ==
LOC: C.EDB 01:12
DX: K62.5 Hemorrhage of anus and rectum (principal); E11.9 Type 2 diabetes mellitus without complications; E78.5 Hyperlipidemia, unspecified; K21.9 Gastro-esophageal reflux disease without esophagitis; I10 Essential (primary) hypertension; E03.9 Hypothyroidism, unspecified; E66.9 Obesity, unspecified; G47.33 Obstructive sleep apnea (adult) (pediatric); Z83.3 Family history of diabetes mellitus; Z82.0 Family history of epilepsy and other diseases of the nervous system; Z82.49 Family history of ischemic heart disease and other diseases of the circulatory system; Z79.82 Long term (current) use of aspirin; Z79.4 Long term (current) use of insulin

== ENCOUNTER → 2017-07-04 | Outpatient (CLI) | payer OTHER ==
[~2017-07-04] MED LIST changes: +SNG10 PO
== END | disposition home or self-care (01) ==
LOC: C.LABPVFM 07:41
PROVIDERS: ATTEND Family Medicine
DX: E11.40 Type 2 diabetes mellitus with diabetic neuropathy, unspecified (principal)

== ENCOUNTER 2017-07-14 12:47 | Emergency (ER) | payer OTHER ==
[~2017-07-14] VITALS: Ht 152.4 cm; Wt 99.3 kg
[2017-07-14 12:54] VITALS: TEMP 36.8; Ht 152.4 cm; Wt 99.3 kg
[2017-07-14 13:08] VITALS: O2SAT 96
[2017-07-14] MEDS ORDERED: OPTIRAY 320 IV PRN (13:15)
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
[2017-07-14 13:32] LABS: ISTAT CREATININE 0.8 mg/dl (0.6-1.3); ISTAT HEMOGLOBIN 14.3 g/dl (12.0-16.0); ISTAT IONIZED CALCIUM 1.23 mmol/l (1.12-1.32)
[2017-07-14] MEDS ORDERED: INSULIN HUMAN REGULAR SC STA (13:38)
[2017-07-14] MEDS ORDERED: SODIUM CHLORIDE 0.9% 1000ML 1,000 ML IV STA (13:39)
[2017-07-14 13:47] LABS: BASO % 0.3 %; BASO ABS # 0.02 K/uL (0-0.2); COMPLETE YES; EOS % 3.4 %; HEMATOCRIT 43.5 % (37-47); IG% 0.4 %; LYMPH % 35.3 %; LYMPH ABS # 2.72 K/uL (1.2-3.4); MEAN CELL VOLUME 78.2 fL (80-100); MEAN CORPUSCULAR HEMOGLOBIN 28.1 pg (25-34); MEAN CORPUSCULAR HGB CONC 35.9 g/dl (32-36); MEAN PLATELET VOLUME 9.6 fL (7.4-10.4); MONO % 6.6 %; PLATELET COUNT 232 K/uL (130-400); RED BLOOD COUNT 5.56 M/uL (4.2-5.4); WHITE BLOOD COUNT 7.71 K/uL (4.8-10.8)
[2017-07-14 13:55] LABS: URINE APPEARANCE CLEAR (CLEAR); URINE BILIRUBIN NEG (NEG); URINE COLOR YELLOW; URINE NITRITE NEG (NEG); URINE SPECIFIC GRAVITY 1.021 (1.000-1.030); UROBILINOGEN NEG (NEG)
[2017-07-14 13:57] LABS: MANUAL MICROSCOPIC REQUIRED? NO; REVIEW REQ? NO
[2017-07-14] MEDS ORDERED: AMOX1TAB43 PO (13:58)
[2017-07-14 13:59] LABS: PROTHROMBIN TIME (PATIENT) 10.7 SECONDS (9.0-12.0)
[2017-07-14] MEDS ORDERED: NovoLIN-R INSULIN PER UNIT CHARGE ONE (14:08)
[2017-07-14 14:15] LABS: BUN/CREATININE RATIO 16.7 (10-20); CALCIUM 9.3 mg/dl (8.5-10.1)
--- NOTE | 2017-07-14 14:24 | DIAGNOSTIC IMAGING REPORT ---
CT SCAN OF THE ABDOMEN AND PELVIS WITH IV CONTRAST CLINICAL HISTORY: Left lower quadrant abdominal pain. Rectal bleeding. COMPARISON STUDY: Abdominal CT dated 05/06/2017 and 03/30/2008. TECHNIQUE: Following the IV administration of 93 cc of Optiray 320, CT scan of the abdomen and pelvis is performed from the lung bases to the proximal femora. Images are reviewed in the axial, sagittal, and coronal planes. IV contrast was administered without complication. A dose lowering technique was utilized adhering to the principles of ALARA. The examination is degraded by large body habitus, and by streak artifact from the body wall abutting the CT gantry. CT DOSE: 1631.60 mGy.cm FINDINGS: Lung bases: The heart is normal in size and without pericardial effusion. There is a 4 mm pulmonary nodule at the left lung base seen on image #63. The lung bases are otherwise clear. Liver: The contrast-enhanced liver is enlarged, measuring 21.3 cm in length. The liver is normal in contour and attenuation. There is no intrahepatic biliary ductal dilatation. The hepatic veins and portal veins are patent. Gallbladder: Unremarkable. Spleen: Normal in size and attenuation. Pancreas: Atrophic and grossly unremarkable. Adrenal glands: Unremarkable. Kidneys: The contrast enhanced kidneys demonstrate mild cortical atrophy and are without hydronephrosis. The kidneys enhance symmetrically. Abdominal vasculature: The abdominal aorta is normal in course and caliber noting mild atherosclerotic calcification. Bowel: The small bowel and colon are normal in course and caliber. Scattered colonic diverticula are noted. There is no CT evidence of acute diverticulitis. The appendix is well-visualized and normal. Peritoneum: There is no intraperitoneal free air or abdominal ascites. Lymphadenopathy: A prominent left pelvic sidewall node on image #319 measures 1.4 cm in length. This is unchanged as compared to prior studies there is no upper abdominal, retroperitoneal, mesenteric, or inguinal lymphadenopathy. Pelvic viscera: The bladder is normal as visualized. The uterus is surgically absent. No adnexal lesion is seen. Skeletal structures: The skeletal structures are osteopenic. There is mild to moderate lumbosacral spondylosis and scoliosis. A hemitransitional left lumbosacral segment is incidentally noted. No lytic or blastic lesions are seen. IMPRESSION: 1. There are no acute infectious or inflammatory findings in the abdomen or pelvis. 2. Hepatomegaly. 3. There is a 4 mm pulmonary nodule at the left lung base. This is indeterminant but is increasingly conspicuous from prior studies. A 3 month follow-up chest CT is recommended for reassessment. 4. Additional findings as above. Electronically signed by: Tacho Delatorre M.D. 07/14/2017 2:23 PM Dictated Date/Time: 07/14/2017 2:13 PM
[2017-07-14 14:32] LABS: BETA-HYDROXYBUTYRATE 1.63 mg/dL (0.2-2.81)
[2017-07-14 15:05] VITALS: BP 155/78; PULSE 72; O2SAT 97
== END 2017-07-14 15:06 | disposition home or self-care (01) ==
LOC: C.EDB 12:49 → C.EDC 15:06
DX: I10 Essential (primary) hypertension (principal); R91.1 Solitary pulmonary nodule; K62.5 Hemorrhage of anus and rectum; E11.65 Type 2 diabetes mellitus with hyperglycemia; E78.5 Hyperlipidemia, unspecified; K21.9 Gastro-esophageal reflux disease without esophagitis; E03.9 Hypothyroidism, unspecified; E66.01 Morbid (severe) obesity due to excess calories; I34.0 Nonrheumatic mitral (valve) insufficiency; K75.9 Inflammatory liver disease, unspecified; G47.33 Obstructive sleep apnea (adult) (pediatric); Z86.14 Personal history of Methicillin resistant Staphylococcus aureus infection; Z90.710 Acquired absence of both cervix and uterus; Z96.659 Presence of unspecified artificial knee joint; Z79.82 Long term (current) use of aspirin; Z79.4 Long term (current) use of insulin; Z83.3 Family history of diabetes mellitus; Z82.49 Family history of ischemic heart disease and other diseases of the circulatory system; Z82.0 Family history of epilepsy and other diseases of the nervous system

== ENCOUNTER → 2017-08-27 | Day surgery (SDC) | payer OTHER ==
[2017-08-03 15:51] VITALS: Ht 152.4 cm; Wt 103.2 kg
[~2017-08-27] VITALS: Ht 152.4 cm; Wt 103.2 kg
[~2017-08-27] MED LIST changes: +ACET-1256 PO; +IBUP-1050 PO; -INSU1.2I SC; +LIDOCAINE HCL 2% 2 ML VIAL (20MG/ML) ONE; +MIDAZOLAM HCL 1 MG/ML 2ML VIAL ONE; +PROPOFOL IV EMULSION 10 MG/ML 20 ML VIAL IV ONE; +SODIUM CHLORIDE 0.9% 500ML 500 ML IV ONE
--- NOTE | 2017-08-27 11:54 | Endo History and Physical ---
History & Physical Date of Service: Aug 27, 2017. Chief Complaint: Blood in stool Referring Physician: Dr. Vivar History of Present Illness 51 yo CF who presents for colonoscopy secondary to blood in stool. Past Medical History Diabetes, Arthritis, Asthma, Anxiety, High Cholesterol, Sleep Apnea, Heart Disease, Hypertension, Thyroid Disease, Depression Past Surgical History Hx Cardiac Surgery: Yes (CARDIAC CATH 1-2 YRS AGO-NO STENT [facility]) Hx Internal Defibrillator: No Hx Pacemaker: No Hx Abdominal Surgery: Yes (HYSTERECTOMY) Hx Post-Op Nausea and Vomiting: No Hx Cancer Surgery: No Hx Thoracic Surgery: No Hx Orthopedic: Yes (L TKA, L FX REPAIR,L CTR, R CTR) Hx Urinary Tract Surgery: No Family History Polyp Social History Smoking Status: Never Smoker Hx Substance Use: No Hx Alcohol Use: No Allergies Coded Allergies: Daptomycin (Verified Allergy, Severe, SHORTNESS OF BREATH, 08/03/17) 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 Clindamycin (Verified Allergy, Intermediate, HIVES, 08/03/17) Sulfa Antibiotics (Verified Allergy, Intermediate, BACTRIM-HIVES, 08/03/17) BEE STING (Verified Allergy, Unknown, HIVES, 08/03/17) Trimethoprim (Verified Allergy, Unknown, HIVES, 08/03/17) Dulaglutide (Verified Adverse Reaction, Severe, BRAND-TRULICITY, SEVERE GI UPSET, CONSTIPATION, 08/27/17) Current Medications Reported Home Medications Medications Dose Route/Sig Max Daily Dose Days Date Category Dose Instructions Advil (Ibuprofen) 200 Mg Tab 800 Mg PO PRN 07/31/17 Reported Tylenol (Acetaminophen) 500 Mg Tab 1,000 Mg PO PRN 07/31/17 Reported Toprol-Xl (Metoprolol Succinate) 50 Mg Tabcr 50 Mg PO QAM 06/23/17 Reported Montelukast Sodium (Montelukast Sod) 10 Mg Tab 10 Mg PO HS 06/23/17 Reported Novolog Flexpen (Insulin Aspart) 100 Units/Ml Inj 25 Units SC TIDM 11/25/16 Reported Ventolin Hfa (Albuterol) 200 Puffs/81613 Mcg Aers 2-4 Puffs INH Q6H PRN 11/25/16 Reported Toujeo Solostar (Insulin Glargine) 300 Unit/Ml Inj 60 Units SQ AMPM 05/07/16 Reported Zyrtec (Cetirizine HCl) 10 Mg Tab 10 Mg PO QAM 02/06/16 Reported Lipitor (Atorvastatin Calcium) 20 Mg Tab 20 Mg PO PM 02/06/16 Reported Nitrostat (Nitroglycerin) 0.4 Mg Tab 0.4 Mg UT UD PRN 12/21/15 Reported Effexor Extended Rel (Venlafaxine Hcl) 150 Mg Capcr 150 Mg PO QAM 12/21/15 Reported Lisinopril 5 Mg Tab 2.5 Mg PO QAM 12/21/15 Reported Breo Ellipta (Fluticasone Furoate-Vilanterol) 1 Inh Inh 1 Puff INH QAM 12/21/15 Reported Levothyroxine Sodium 200 Mcg Tab 1,400 Mcg PO QAM 02/02/15 Reported TAKE SEVEN 200MCG TABS DAILY Meclizine Hcl 25 Mg Tab 25 Mg PO TID PRN 02/02/15 Reported Aspirin Ec (Aspirin) 81 Mg Tab 81 Mg PO QAM 02/02/15 Reported Mag-Ox (Magnesium Oxide) 400 Mg Tab 400 Mg PO BID 02/10/13 Reported Neurontin (Gabapentin) 400 Mg Cap 400 Mg PO TID 11/12/12 Reported Claritin (Loratadine) 10 Mg Cap 10 Mg PO QAM 09/11/12 Reported Vital Signs Weight (Kilograms): 103.18 Height (Feet): 5 Height (Inches): 0 Date Time Temp Pulse Resp B/P (MAP) Pulse Ox O2 Delivery O2 Flow Rate FiO2 08/27/17 11:46 36.8 60 20 132/84 (100) 94 Room Air Physical Exam General Appearance: WD/WN, no apparent distress Respiratory/Chest: Auscultation: breath sounds normal Cardiovascular: Heart Auscultation: RRR Abdomen: Bowel Sounds: normal Inspection & Palpation: soft, non-distended, no tenderness, guarding & rebound Assessment and Plan Assessment: 51 yo CF who presents for colonoscopy secondary to blood in stool. Plan: Proceed with colonoscopy.
--- NOTE | 2017-08-27 13:12 | Discharge Instructions ---
Endoscopy Patient Instructions Date / Procedure(s) Performed Aug 27, 2017. 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 Pinworms Colon mass in rectosigmoid region Diverticulosis Internal hemorrhoids Medication Instructions Stopped Medication(s): Patient was told to hold insulin but she held everything. 1) Mebendazole 100mg by mouth twice daily for 3 days 2) OK to resume all medications today as prescribed Reported Home Medications Medications Dose Route/Sig Max Daily Dose Days Date Category Dose Instructions Advil (Ibuprofen) 200 Mg Tab 800 Mg PO PRN 07/31/17 Reported Tylenol (Acetaminophen) 500 Mg Tab 1,000 Mg PO PRN 07/31/17 Reported Toprol-Xl (Metoprolol Succinate) 50 Mg Tabcr 50 Mg PO QAM 06/23/17 Reported Montelukast Sodium (Montelukast Sod) 10 Mg Tab 10 Mg PO HS 06/23/17 Reported Novolog Flexpen (Insulin Aspart) 100 Units/Ml Inj 25 Units SC TIDM 11/25/16 Reported Ventolin Hfa (Albuterol) 200 Puffs/97165 Mcg Aers 2-4 Puffs INH Q6H PRN 11/25/16 Reported Toujeo Solostar (Insulin Glargine) 300 Unit/Ml Inj 60 Units SQ AMPM 05/07/16 Reported Zyrtec (Cetirizine HCl) 10 Mg Tab 10 Mg PO QAM 02/06/16 Reported Lipitor (Atorvastatin Calcium) 20 Mg Tab 20 Mg PO PM 02/06/16 Reported Nitrostat (Nitroglycerin) 0.4 Mg Tab 0.4 Mg UT UD PRN 12/21/15 Reported Effexor Extended Rel (Venlafaxine Hcl) 150 Mg Capcr 150 Mg PO QAM 12/21/15 Reported Lisinopril 5 Mg Tab 2.5 Mg PO QAM 12/21/15 Reported Breo Ellipta (Fluticasone Furoate-Vilanterol) 1 Inh Inh 1 Puff INH QAM 12/21/15 Reported Levothyroxine Sodium 200 Mcg Tab 1,400 Mcg PO QAM 02/02/15 Reported TAKE SEVEN 200MCG TABS DAILY Meclizine Hcl 25 Mg Tab 25 Mg PO TID PRN 02/02/15 Reported Aspirin Ec (Aspirin) 81 Mg Tab 81 Mg PO QAM 02/02/15 Reported Mag-Ox (Magnesium Oxide) 400 Mg Tab 400 Mg PO BID 02/10/13 Reported Neurontin (Gabapentin) 400 Mg Cap 400 Mg PO TID 11/12/12 Reported Claritin (Loratadine) 10 Mg Cap 10 Mg PO QAM 09/11/12 Reported Provider Instructions Activity Restrictions - No exercising or heavy lifting for 24 hours. - Do not drink alcohol the day of the procedure. - Do not drive a car or operate machinery until the day after the procedure. - Do not make any important decisions or sign important papers in 24 hours after the procedure. Following Day: - Return to full activity which may include returning to work/school. Diet Start your diet with liquids and light foods (jello, soup, juice, toast). Then eat your usual diet if not nauseated. Treatment For Common After Affects For mild abdominal pain, bloating, or excessive gas: - Rest - Eat lightly - Lie on right side My office will contact patient to schedule CT Scan of the abdomen and pelvis Follow-Up Information Follow-up with Dr. Madison Vivar as scheduled Anesthesia Information What You Should Know You have had a procedure that required some medicine to reduce anxiety and discomfort. This treatment is called moderate sedation. After receiving the treatment, you may be sleepy, but you will be able to breathe on your own. The effects of the treatment may last for several hours. Follow these instructions along with Activity/Diet recommendations noted above: * Do NOT do anything where dizziness or clumsiness would be dangerous. * Rest quietly at home today, then you can be up and about tomorrow. * Have a responsible person stay with you the rest of today. * You may have had an I.V. today. If so, you may take the dressing off later today. Recommendations Call your doctor if: * Trouble breathing * Continuous vomiting for more than 24 hours * Temperature above 101 degrees * Severe abdominal pain or bloating * Pain not relieved by pain medicine ordered * There is increased drainage or redness from any incision * A large amount of rectal bleeding greater than 2-3 tablespoons. (If you had a polyp/s removed or have hemorrhoids, a small amount of blood - from the rectum is to be expected.) * You have any unanswered questions or concerns. IN THE EVENT OF A SERIOUS EMERGENCY, GO TO THE NEAREST EMERGENCY ROOM Your discharge instructions were prepared by provider Nicanor Burns. Patient Instructions Signature Page Luisa Bernard Patient (or Guardian) Signature/Date: I have read and understand the instructions given to me by my caregivers. Caregiver/RN/Doctor Signature/Date: The above-named patient and/or guardian has received patient instructions on this date. + Original Patient Signature Page (only) stays with chart. Please make copy for patient.
--- NOTE | 2017-08-27 13:18 | GI REPORT ---
Procedure Date: 08/27/2017 12:30 PM Procedure: Colonoscopy Indications: Rectal bleeding Medicines: Monitored Anesthesia Care Complications: No immediate complications. Estimated Blood Loss: Estimated blood loss: none. Procedure: Pre-Anesthesia Assessment: - Prior to the procedure, a History and Physical was performed, and patient medications and allergies were reviewed. The patient's tolerance of previous anesthesia was also reviewed. The risks and benefits of the procedure and the sedation options and risks were discussed with the patient. All questions were answered, and informed consent was obtained. Prior Anticoagulants: The patient has taken no previous anticoagulant or antiplatelet agents. ASA Grade Assessment: III - A patient with severe systemic disease. After reviewing the risks and benefits, the patient was deemed in satisfactory condition to undergo the procedure. After I obtained informed consent, the scope was passed under direct vision. Throughout the procedure, the patient's blood pressure, pulse, and oxygen saturations were monitored continuously. The On-site loaner was introduced through the anus and advanced to the terminal ileum. The colonoscopy was performed without difficulty. The patient tolerated the procedure well. The quality of the bowel preparation was good. The terminal ileum, ileocecal valve, appendiceal orifice, and rectum were photographed. Findings: The perianal and digital rectal examinations were normal. Worms were found in the sigmoid colon and in the cecum. An infiltrative non-obstructing medium-sized mass was found in the recto-sigmoid colon. The mass was circumferential. The mass measured four cm in length. In addition, its diameter measured twelve mm. Oozing was present. This was biopsied with a cold forceps for histology. Multiple small-mouthed diverticula were found in the sigmoid colon. Non-bleeding internal hemorrhoids were found during retroflexion. The hemorrhoids were small. Impression: - Intestinal worms. - Rule out malignancy, tumor in the recto-sigmoid colon. Biopsied. - Diverticulosis in the sigmoid colon. - Non-bleeding internal hemorrhoids. Recommendation: - Resume previous diet. - Continue present medications. - Start Mebendazole 100mg by mouth twice daily for 3 days. - Await pathology results. - Return to primary care physician as previously scheduled. Nicanor Burns DO 08/27/2017 1:17:48 PM This report has been signed electronically. Note Initiated On: 08/27/2017 12:30 PM I attest to the content of the Intraoperative Record and orders documented therein, exceptions below
[2017-08-27 13:34] VITALS: BP 122/92; PULSE 57; O2SAT 97
--- NOTE | 2017-08-27 13:45 | Anesthesiology Progress Note ---
Anesthesia Post Op Note Date & Time Aug 27, 2017 at 13:45 Vital Signs Pain Intensity: 0 Vital Signs Past 12 Hours Date Time Temp Pulse Resp B/P (MAP) Pulse Ox O2 Delivery O2 Flow Rate FiO2 08/27/17 13:34 57 18 122/92 (102) 97 Room Air 08/27/17 13:19 54 16 95/51 (66) 97 Room Air 08/27/17 13:04 59 12 109/60 (76) 96 Room Air 08/27/17 11:46 36.8 60 20 132/84 (100) 94 Room Air Notes Mental Status: alert / awake / arousable, participated in evaluation Pt Amnestic to Procedure: Yes Nausea / Vomiting: adequately controlled Pain: adequately controlled Airway Patency, RR, SpO2: stable & adequate BP & HR: stable & adequate Hydration State: stable & adequate Anesthetic Complications: no major complications apparent
== END | disposition home or self-care (01) ==
LOC: C.GI 11:22
PROVIDERS: ATTEND Internal Medicine
DX: C19 Malignant neoplasm of rectosigmoid junction (principal); D12.0 Benign neoplasm of cecum; B80 Enterobiasis; K57.30 Diverticulosis of large intestine without perforation or abscess without bleeding; K64.8 Other hemorrhoids; E11.9 Type 2 diabetes mellitus without complications; J45.909 Unspecified asthma, uncomplicated; M19.90 Unspecified osteoarthritis, unspecified site; G47.30 Sleep apnea, unspecified; I51.9 Heart disease, unspecified; I10 Essential (primary) hypertension; F32.9 Major depressive disorder, single episode, unspecified; Z90.710 Acquired absence of both cervix and uterus; Z79.4 Long term (current) use of insulin; Z79.82 Long term (current) use of aspirin

== ENCOUNTER → 2017-08-31 | Outpatient (CLI) | payer OTHER ==
[~2017-08-31] MED LIST changes: -LIDOCAINE HCL 2% 2 ML VIAL (20MG/ML) ONE; -MIDAZOLAM HCL 1 MG/ML 2ML VIAL ONE; +OPTIRAY 320 IV PRN; -PROPOFOL IV EMULSION 10 MG/ML 20 ML VIAL IV ONE; -SODIUM CHLORIDE 0.9% 500ML 500 ML IV ONE
--- NOTE | 2017-08-31 16:20 | DIAGNOSTIC IMAGING REPORT ---
CHEST CT WITH CONTRAST CT DOSE: 1488.35 mGycm HISTORY: ADENOCARCINOMA OF RECTUM TECHNIQUE: Multiaxial CT images of the chest were performed following the intravenous administration of contrast. A dose lowering technique was utilized adhering to the principles of ALARA. COMPARISON: Chest CT 02/06/2014. Abdomen and pelvis CT 07/14/2017. FINDINGS: The 4 mm nodule within the base of the left lower lobe on the prior study has increased in size. This now measures 6 mm. This is best seen on image 184. The central airways are patent. No pleural effusions. No pneumothorax. There is a 4 mm nodule within the right upper lobe on image 89. No suspicious lytic or blastic osseous lesions. Stable prominent paratracheal lymph nodes. Therefore, these are likely benign given the long-term stability compared to a 2014 examination. No enlarging mediastinal or hilar lymph nodes. Please refer to the dedicated abdomen and pelvis CT performed the same day for further evaluation of the abdominal structures. The central pulmonary arteries are patent. The heart is normal in size. IMPRESSION: 1. Increase in size in the 6 mm nodule within the left lower lobe. Therefore, this is suspicious for metastatic disease. 2. An indeterminate 4 mm nodule within the right upper lobe. 3. Stable prominent mediastinal lymph nodes. Electronically signed by: Anthony Davis M.D. 08/31/2017 4:18 PM Dictated Date/Time: 08/31/2017 4:12 PM
--- NOTE | 2017-08-31 16:28 | DIAGNOSTIC IMAGING REPORT ---
CT SCAN OF THE ABDOMEN AND PELVIS WITH IV CONTRAST CLINICAL HISTORY: Rectal carcinoma. COMPARISON STUDY: Prior abdominal CT scans dated 07/14/2017 and 03/30/2008. TECHNIQUE: Following the IV administration of 93 cc of Optiray 320, CT scan of the abdomen and pelvis is performed from the lung bases to the proximal femora. Images are reviewed in the axial, sagittal, and coronal planes. IV contrast was administered without complication. A dose lowering technique was utilized adhering to the principles of ALARA. The examination is degraded by large body habitus, and by streak artifact from the body wall abutting the CT gantry. FINDINGS: Lung bases: The heart is normal in size and without pericardial effusion. There is a 7 mm pulmonary nodule at the left lung base seen on image #42. The lung bases are otherwise clear. Liver: The contrast-enhanced liver is enlarged, measuring 20.1 cm in length. The liver is heterogeneous in attenuation and demonstrates nodular surface contour. There is no intrahepatic biliary ductal dilatation. The hepatic veins and portal veins are patent. Large portal to left renal collateral veins are noted. Gallbladder: Unremarkable. Spleen: Normal in size and attenuation. Pancreas: Atrophic and grossly unremarkable. Adrenal glands: Unremarkable. Kidneys: The contrast enhanced kidneys demonstrate mild cortical atrophy and are without hydronephrosis. The kidneys enhance symmetrically. Abdominal vasculature: The abdominal aorta is normal in course and caliber noting mild atherosclerotic calcification. Bowel: The small bowel and colon are normal in course and caliber. Scattered colonic diverticula are noted. There is no CT evidence of acute diverticulitis. The appendix is well-visualized and normal. No rectal lesion is seen by CT. Peritoneum: There is no intraperitoneal free air or abdominal ascites. Lymphadenopathy: A left pelvic sidewall node on image #314 is unchanged and measures 1.4 x 1.1 cm. Prominent retroperitoneal lymph nodes measure up to 1.1 cm in short axis as seen on image #151. Pelvic viscera: The bladder is decompressed and grossly unremarkable. The uterus is surgically absent. No adnexal lesion is seen. Skeletal structures: The skeletal structures are osteopenic. There is mild to moderate lumbosacral spondylosis and scoliosis. A hemitransitional left lumbosacral segment is incidentally noted. No lytic or blastic lesions are seen. IMPRESSION: 1. There is no definite evidence of metastatic disease in the abdomen or pelvis. 2. No rectal lesion is identified. 3. There is a 7 mm pulmonary nodule at the left lung base. This is indeterminant but has increased in size from previous. Metastatic disease not excluded. 4. No acute infectious or inflammatory findings are identified in the abdomen or pelvis. 5. The liver is enlarged with evidence of steatosis. Early cirrhotic change is suspected. 6. Mildly enlarged left pelvic sidewall and retroperitoneal lymph nodes are indeterminant and similar to prior studies. Electronically signed by: Tacho Delatorre M.D. 08/31/2017 4:26 PM Dictated Date/Time: 08/31/2017 4:13 PM
== END | disposition home or self-care (01) ==
LOC: C.CTS 13:45
PROVIDERS: ATTEND Internal Medicine
DX: C20 Malignant neoplasm of rectum (principal); R91.8 Other nonspecific abnormal finding of lung field; K76.9 Liver disease, unspecified; R59.0 Localized enlarged lymph nodes

== ENCOUNTER 2017-09-12 15:23 | Inpatient (IN) | payer OTHER ==
[~2017-09-12] VITALS: Ht 157.5 cm; Wt 100.7 kg
[~2017-09-12 15:23] MED LIST changes: -OPTIRAY 320 IV PRN
[2017-09-12] MEDS ORDERED: ALBUT/IPRATROP 3MG/0.5MG NEB 3 ML VIAL INH STA (15:32)
[2017-09-12] MEDS ORDERED: SODIUM CHLORIDE 0.9% 1000ML 1,000 ML IV STA ×2 (15:32→16:11)
--- NOTE | 2017-09-12 16:09 | EMERGENCY ROOM VISIT NOTE ---
History Report prepared by Aakash: Shar Day Under the Supervision of: Dr. Juventino Cook M.D. First contact with patient: 15:26 Chief Complaint: SHORTNESS OF BREATH Stated Complaint: SOB, NAUSEA History of Present Illness The patient is a 51 year old female who presents to the Emergency Room brought in by EMS with complaints of persistent shortness of breath [employer]ING [employer]. The patient went to her PCP's office for nausea, vomiting, and shortness of breath. She began hyperventilating and EMS was notified. EMS notes that they briefly removed her NC and the patients lips immediately turned blue. EMS placed her on a non-rebreathing mask. Per , the patient has not been feeling well for a few days. The patient states that she "hurts all over." She notes coughing, nausea, vomiting, diarrhea, and bloody stools. She currently rates her pain 5/ 10 in severity. She notes that she may have rectal cancer. Per , the patient has a "spot" on her lung, though was unable to elaborate. The patient has a history of diabetes and her blood sugar was 154 upon arrival to the ED. Source of History: patient, spouse/significant other, EMS Onset: [employer]ESSING [employer]ITOR Position: other (global) Symptom Intensity: 5/10 Quality: other (shortness of breath) Timing: other (persistent) Associated Symptoms: + cough, + SOB, + nausea, + vomiting, + diarrhea Note: She notes bloody stools. Review of Systems See HPI for pertinent positives & negatives. A total of 10 systems reviewed and were otherwise negative. Past Medical & Surgical Medical Problems: (1) Diabetes mellitus type 2 in obese (2) Dyslipidemia (3) GERD (gastroesophageal reflux disease) (4) Hepatitis (5) HTN (hypertension) (6) Hypothyroidism (7) Lactic acidosis (8) Leaky heart valve (9) Mitral regurgitation (10) Morbid obesity with BMI of 40.0-44.9, adult (11) MRSA (methicillin resistant Staphylococcus aureus) (12) ANA (obstructive sleep apnea) (13) Panniculitis (14) Patella fracture (15) Post-op pain Surgical Problems: (1) History of carpal tunnel surgery (2) History of hysterectomy (3) History of tonsillectomy and adenoidectomy (4) History of tubal ligation (5) Hx of total knee arthroplasty Old medical records were reviewed. Nurse's notes were reviewed and I agree with. Family History Diabetes mellitus FH: heart disease FH: lung disease Hypertension Seizures Social History Smoking Status: Never Smoker Alcohol Use: none Drug Use: none Marital Status: Housing Status: lives with significant other Occupation Status: disabled Current/Historical Medications Scheduled Aspirin (Aspirin Ec), 81 MG PO QAM Furosemide (Lasix), 20 MG PO DAILY Gabapentin (Neurontin), 400 MG PO TID Home O2 Therapy (Oxygen), 2 LITERS NA HS Insulin Aspart (Novolog Flexpen), 20 UNITS SC TIDM Insulin Aspart (Novolog), UNITS SQ TIDM Insulin Glargine (Toujeo Solostar), 60 UNITS SQ AMPM Levothyroxine Sodium (Levothyroxine Sodium), 1,400 MCG PO QAM Lisinopril (Lisinopril), 5 MG PO QAM Loratadine (Claritin), 10 MG PO QAM Metoprolol Tartrate (Lopressor), 25 MG PO DAILY Montelukast Sod (Montelukast Sodium), 10 MG PO HS Mupirocin 2% (Bactroban 2%), 1 APPLN EXT BID Potassium Chloride (Micro-K Ext Rel), 10 MEQ PO DAILY Simvastatin (Zocor), 40 MG PO QPM Venlafaxine Hcl (Effexor Extended Rel), 150 MG PO QAM Scheduled PRN Albuterol Hfa (Ventolin Hfa), 2-4 PUFFS INH Q6H PRN for ASTHMA Meclizine Hcl (Meclizine Hcl), 25 MG PO TID PRN for Dizziness or Vertigo Nitroglycerin (Nitrostat), 0.4 MG UT UD PRN for Chest Pain Ondansetron Hcl (Zofran), 8 MG PO Q6 PRN for Nausea Allergies Coded Allergies: Daptomycin (Verified Allergy, Severe, SHORTNESS OF BREATH, 09/12/17) 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 Clindamycin (Verified Allergy, Intermediate, HIVES, 09/12/17) Sulfa Antibiotics (Verified Allergy, Intermediate, BACTRIM-HIVES, 09/12/17 ) BEE STING (Verified Allergy, Unknown, HIVES, 09/12/17) Trimethoprim (Verified Allergy, Unknown, HIVES, 09/12/17) Dulaglutide (Verified Adverse Reaction, Severe, BRAND-TRULICITY, SEVERE GI UPSET, CONSTIPATION, 09/12/17) Physical Exam Vital Signs Date Time Temp Pulse Resp B/P (MAP) Pulse Ox O2 Delivery O2 Flow Rate FiO2 09/12/17 18:36 70 14 99 09/12/17 18:31 38.1 104/65 09/12/17 18:17 126/59 09/12/17 18:06 76 24 98 09/12/17 18:01 127/63 09/12/17 17:36 76 26 99 09/12/17 17:32 119/62 09/12/17 17:10 110/75 09/12/17 17:06 77 20 97 09/12/17 16:36 77 32 98 09/12/17 16:31 142/64 09/12/17 16:30 126/79 09/12/17 16:23 76 19 97 09/12/17 16:15 75 09/12/17 16:01 98 Non-Rebreather 15.0 09/12/17 15:53 72 32 09/12/17 15:42 Room Air 09/12/17 15:37 38.4 69 28 159/96 98 Non-Rebreather 15.0 09/12/17 15:34 159/96 Physical Exam General: Moderately-ill appearing middle-aged female in moderate distress. Sleepy, but arousable. Moderately tachypneic. HEENT: Normal cephalic atraumatic. Pupils are equal round and reactive to light. Extraocular movements are intact. Oropharynx is pink with moist mucous membranes. No swelling of the mouth lips or tongue. Neck: Supple with a midline trachea. No meningeal signs or stiffness, no JVD or bruits. No Stridor. Chest: Lungs are tachypneic. Rhonchi at the base on the right. In moderate respiratory distress. Heart: regular rate and rhythm. Abdomen: Soft nontender, nondistended without rebound guarding or rigidity. Extremities: No cyanosis clubbing or edema. No calf tenderness or assymetry Spine/Back. Non tender to palpation. No CVA tenderness Skin: Good turgor without rashes. Neurologic exam: Cranial nerves two through 12 are intact. Motor and sensation are intact and symmetrical throughout. Medical Decision & Procedures ER Provider Diagnostic Interpretation: Radiology results as stated below per my review and radiologist interpretation: CHEST ONE VIEW PORTABLE HISTORY: 51 years-old Female CHEST PAIN acute atypical chest pain COMPARISON: Chest radiograph 05/27/2017, chest CT 08/31/2017 TECHNIQUE: Portable AP view of the chest FINDINGS: Heart is moderately enlarged, unchanged. Mild pulmonary vascular congestion without overt pulmonary edema. No pneumothorax or pleural effusion. Linear subsegmental opacity of the lateral left midlung suggest atelectasis or scarring. No lobar airspace consolidation. Bones of the chest appear grossly intact. IMPRESSION: 1. Moderate cardiomegaly with pulmonary vascular congestion. 2. Linear subsegmental opacity of the lateral left midlung suggest scarring/atelectasis. The above report was generated using voice recognition software. It may contain grammatical, syntax or spelling errors. Electronically signed by: Jayjay Crowder M.D. 09/12/2017 4:19 PM Dictated Date/Time: 09/12/2017 4:[address] ANGIOGRAPHY OF THE CHEST, PULMONARY EMBOLUS PROTOCOL CLINICAL HISTORY: Shortness of breath and nausea. Rectal carcinoma. COMPARISON STUDY: Chest CT August 31, 2017 and chest radiograph performed earlier today. TECHNIQUE: Following IV administration of 95 mL of Optiray-320, helical axial images of the chest were obtained utilizing the pulmonary embolus protocol. Maximal intensity projections and sagittal and coronal reformats were viewed on an independent 3D workstation. IV contrast was administered without complication. A dose lowering technique was utilized adhering to the principles of ALARA. CT DOSE: 660.04 mGy.cm FINDINGS: No pulmonary emboli are identified although the segmental and subsegmental pulmonary arteries within the lower lobes are suboptimally assessed due to respiratory motion. There is moderate cardiomegaly. No pericardial effusion is identified. Prominent mediastinal and bilateral hilar lymph nodes are unchanged since CT of August 31, 2017. There is no pneumothorax or pleural effusion. A 6 mm left lower lobe nodule shown image 74 of 261 and a 6 mm right upper lobe nodule shown image 165 of [address] of August 31, 2017. These nodules are indeterminate. No consolidation is identified to suggest pneumonia. No suspicious osseous lesions are present. Upper abdomen is unchanged in appearance. IMPRESSION: 1. No pulmonary emboli identified although segmental and subsegmental pulmonary arteries within the lower lobes suboptimally assessed due to respiratory motion. 2. 6 mm left lower lobe nodule and 6 mm right upper lobe nodule which are similar to CT of August 31, 2017. However, these nodules remain indeterminate and metastatic disease is within the differential given the history of rectal carcinoma. 3. No change in prominent mediastinal and bilateral hilar lymph nodes which are indeterminate and can be followed on subsequent exams to ensure stability. Electronically signed by: Humberto Montanez M.D. 09/12/2017 5:12 PM Dictated Date/Time: 09/12/2017 4:57 PM Laboratory Results 09/12/17 15:55 Red Blood Count 4.83, Mean Corpuscular Volume 82.0, Mean Corpuscular Hemoglobin 28.0, Mean Corpuscular Hemoglobin Concent 34.1, Mean Platelet Volume 10.0, Neutrophils (%) (Auto) 67.0, Lymphocytes (%) (Auto) 21.9, Monocytes (%) (Auto) 9.9, Eosinophils (%) (Auto) 0.7, Basophils (%) (Auto) 0.2, Neutrophils # (Auto) 8.08, Lymphocytes # (Auto) 2.65, Monocytes # (Auto) 1.20, Eosinophils # (Auto) 0.09, Basophils # (Auto) 0.03 09/12/17 15:55 Test 09/12/17 15:55 09/12/17 16:04 09/12/17 16:40 White Blood Count 12.09 K/uL (4.8-10.8) Red Blood Count 4.83 M/uL (4.2-5.4) Hemoglobin 13.5 g/dL (12.0-16.0) Hematocrit 39.6 % (37-47) Mean Corpuscular Volume 82.0 fL (80-100) Mean Corpuscular Hemoglobin 28.0 pg (25-34) Mean Corpuscular Hemoglobin Concent 34.1 g/dl (32-36) Platelet Count 245 K/uL (130-400) Mean Platelet Volume 10.0 fL (7.4-10.4) Neutrophils (%) (Auto) 67.0 % Lymphocytes (%) (Auto) 21.9 % Monocytes (%) (Auto) 9.9 % Eosinophils (%) (Auto) 0.7 % Basophils (%) (Auto) 0.2 % Neutrophils # (Auto) 8.08 K/uL (1.4-6.5) Lymphocytes # (Auto) 2.65 K/uL (1.2-3.4) Monocytes # (Auto) 1.20 K/uL (0.11-0.59) Eosinophils # (Auto) 0.09 K/uL (0-0.5) Basophils # (Auto) 0.03 K/uL (0-0.2) RDW Standard Deviation 41.1 fL (36.4-46.3) RDW Coefficient of Variation 13.6 % (11.5-14.5) Immature Granulocyte % (Auto) 0.3 % Immature Granulocyte # (Auto) 0.04 K/uL (0.00-0.02) Prothrombin Time 12.5 SECONDS (9.0-12.0) Prothromb Time International Ratio 1.2 (0.9-1.1) Activated Partial Thromboplast Time 24.9 SECONDS (21.0-31.0) Partial Thromboplastin Ratio 1.0 Anion Gap 10.0 mmol/L (3-11) Est Creatinine Clear Calc Drug Dose 64.8 ml/min Estimated GFR () 63.6 Estimated GFR (Non- 54.9 BUN/Creatinine Ratio 10.5 (10-20) Calcium Level 8.7 mg/dl (8.5-10.1) Total Bilirubin 1.9 mg/dl (0.2-1) Direct Bilirubin 0.4 mg/dl (0-0.2) Aspartate Amino Transf (AST/SGOT) 29 U/L (15-37) Alanine Aminotransferase (ALT/SGPT) 25 U/L (12-78) Alkaline Phosphatase 88 U/L (45-117) Total Creatine Kinase 123 U/L (26-192) Creatine Kinase MB 1.5 ng/ml (0.5-3.6) Creatine Kinase MB Ratio 1.2 (0-3.0) Total Protein 7.1 gm/dl (6.4-8.2) Albumin 2.9 gm/dl (3.4-5.0) Lipase 83 U/L (73-393) Thyroid Stimulating Hormone (TSH) 3.330 uIu/ml (0.300-4.500) Bedside D-Dimer > 450 ng/mlFEU (0-450) Bedside Lactic Acid Venous 5.12 mmol/L (0.90-1.70) Bedside Troponin I < 0.030 ng/ml (0-0.045) Influenza Type A Antigen Neg for Influ A (NEG) Influenza Type B Antigen Neg for Influ B (NEG) Laboratory studies as stated above per my review. Medications Administered Medications (Trade) Dose Ordered Sig/Viviana Route Start Time Stop Time Status Last Admin Dose Admin Albuterol/ Ipratropium (Duoneb) 3 ml ONE STAT INH 09/12/17 15:32 09/12/17 15:36 DC 09/12/17 15:32 3 ML Sodium Chloride 1,000 ml @ 999 mls/hr Q1H1M STAT IV 09/12/17 16:11 09/12/17 17:11 DC 09/12/17 16:11 500 MLS/HR Piperacillin Sod/ Tazobactam Sod (Zosyn Iv) 4.5 gm NOW STAT IV 09/12/17 16:37 09/12/17 16:38 DC 09/12/17 16:37 4.5 GM Acetaminophen (Tylenol Tab) 650 mg NOW STAT PO 09/12/17 16:38 09/12/17 16:39 DC 09/12/17 16:38 650 MG Vancomycin HCl 2250 mg/Sodium Chloride 545 ml @ 200 mls/hr TODAY@1800 IV 09/12/17 18:00 09/12/17 23:00 09/12/17 18:00 200 MLS/HR ED Course 1526: Past medical records reviewed. The patient was evaluated in room B11B, and a complete history and physical examination were performed. 1532: Ordered Duoneb 3 m INH 1543: I reassessed the patient at this time. The patient is hypertensive at 159. 1604: I reassessed the patient at this time. She has markedly improved. 1611: NSS 1,000 ml @ 999 mls/hr 1627: I reassessed the patient at this time. She is feeling better and resting comfortably. 1637: Ordered Zosyn 4.5 gm IV 1638: Orderd Tylenol 650 mg PO 1644: I spoke with Dr. Curtis, hospitalist. We discussed the patients case. The patient will be evaluated by the [facility] for further management. 1800: Ordered Vancomycin HCl 2,250 mg/Sodium Chloride 545 ml @ 200mls/hr IV Medical Decision Differentials include, but are not limited to; PNA, COPD, diabetic complication , sepsis, PE, cardiac disease, and electrolyte or metabolic abnormality. This patient comes in as described above. She was brought in after having shortness of breath and vomiting. She appears sleepy initially upon arrival. She was normotensive. IV access established concern was for sepsis/infection. She does have some crackles in her lungs and tells me that she does have some cardiac disease. I was concerned for possible CHF so she was given 500 mL bolus IV at a time and she tolerated this well. Her lactic acid came back severely elevated at 5. Her white count only 12, she has no significant electrolyte or metabolic abnormalities. She nothing to suggest this is related to her diabetes. Chest x-ray showed cardiomegaly with mild increased interstitial markings again concern for possible CHF. I did a CAT scan there is no evidence of acute process or PE or pneumothorax. She has no findings to suggest meningitis on exam. Her abdomen is benign. Influenza was negative and it may be more of a viral illness . To cover for the possibility of bacterial illness and sepsis, She was given IV Zosyn and IV vancomycin for broad-spectrum antibiotic coverage. She is doing clinically much better . She's been normotensive. She is awake and appears in no distress . We have slowly weaned her oxygen down and she is tolerating this well she received albuterol/ Atrovent neb. I have consulted Dr. Rock and she will be admitted for further treatment and evaluation. Medication Reconcilliation Current Medication List: was personally reviewed by me Blood Pressure Screening Patient's blood pressure: Normal blood pressure Consults Time Called: 1639 Consulting Physician: Dr. Curtis hospitalist. Returned Call: [address] Curtis, hospitalist. We discussed the patients case. The patient will be evaluated by the [facility] for further management. Impression Primary Impression: Sepsis Additional Impression: Shortness of breath Critical Care I have personally spent greater than 30 minutes of critical care time in the direct management of this patient. This includes bedside care, interpretation of diagnostic studies, and testing, discussion with consultants, patient, and family members, and other required patient management activities. This 30 minutes is in excess of all separately billable procedures. Scribe Attestation The scribe's documentation has been prepared under my direction and personally reviewed by me in its entirety. I confirm that the note above accurately reflects all work, treatment, procedures, and medical decision making performed by me. Departure Information Dispostion Being Evaluated By Hospitalist Referrals Madison Vivar M.D. (PCP) Patient Instructions My [facility] Problem Qualifiers
[2017-09-12] MEDS ORDERED: SODIUM CHLORIDE 0.9% 1000ML 1,000 ML IV ONE (16:11)
[2017-09-12 16:12] LABS: BASO % 0.2 %; BASO ABS # 0.03 K/uL (0-0.2); COMPLETE YES; EOS % 0.7 %; HEMATOCRIT 39.6 % (37-47); IG% 0.3 %; LYMPH % 21.9 %; LYMPH ABS # 2.65 K/uL (1.2-3.4); MEAN CORPUSCULAR HGB CONC 34.1 g/dl (32-36); MONO % 9.9 %; PLATELET COUNT 245 K/uL (130-400); RED BLOOD COUNT 4.83 M/uL (4.2-5.4); WHITE BLOOD COUNT 12.09 K/uL (4.8-10.8)
[2017-09-12 16:21] LABS: INR 1.2 (0.9-1.1); PROTHROMBIN TIME (PATIENT) 12.5 SECONDS (9.0-12.0)
--- NOTE | 2017-09-12 16:21 | DIAGNOSTIC IMAGING REPORT ---
CHEST ONE VIEW PORTABLE HISTORY: 51 years-old Female CHEST PAIN acute atypical chest pain COMPARISON: Chest radiograph 05/27/2017, chest CT 08/31/2017 TECHNIQUE: Portable AP view of the chest FINDINGS: Heart is moderately enlarged, unchanged. Mild pulmonary vascular congestion without overt pulmonary edema. No pneumothorax or pleural effusion. Linear subsegmental opacity of the lateral left midlung suggest atelectasis or scarring. No lobar airspace consolidation. Bones of the chest appear grossly intact. IMPRESSION: 1. Moderate cardiomegaly with pulmonary vascular congestion. 2. Linear subsegmental opacity of the lateral left midlung suggest scarring/atelectasis. The above report was generated using voice recognition software. It may contain grammatical, syntax or spelling errors. Electronically signed by: Jayjay Crowder M.D. 09/12/2017 4:19 PM Dictated Date/Time: 09/12/2017 4:18 PM
[2017-09-12 16:24] LABS: POINT OF CARE TROPONIN I < 0.030 ng/ml (0-0.045)
[2017-09-12 16:28] LABS: BUN/CREATININE RATIO 10.5 (10-20); CALCIUM 8.7 mg/dl (8.5-10.1); CREATININE 1.14 mg/dl (0.60-1.20); POTASSIUM 4.2 mmol/L (3.5-5.1)
[2017-09-12] MEDS ORDERED: ONDA8TAB6 PO (16:31)
[2017-09-12] MEDS ORDERED: POTA10CA28 PO (16:31)
[2017-09-12] MEDS ORDERED: LPR25 PO (16:31)
[2017-09-12] MEDS ORDERED: BCTCR/30 EXT (16:31)
[2017-09-12] MEDS ORDERED: NVLG SQ (16:31)
[2017-09-12] MEDS ORDERED: SIMV40TA2 PO (16:31)
[2017-09-12] MEDS ORDERED: FURO-85 PO (16:31)
[2017-09-12] MEDS ORDERED: OXGN (16:31)
[2017-09-12] MEDS ORDERED: PIPERACILLIN/TAZOBACTAM 4.5 GM/100ML D5W IV STA (16:37)
[2017-09-12] MEDS ORDERED: ACETAMINOPHEN 325 MG TAB PO STA (16:38)
[2017-09-12 16:41] LABS: CKMB/CK RATIO 1.2 (0-3.0); THYROID STIMULATING HORMONE 3.33 uIu/ml (0.300-4.500)
[2017-09-12] MEDS ORDERED: OPTIRAY 320 IV PRN (16:45)
--- NOTE | 2017-09-12 17:13 | DIAGNOSTIC IMAGING REPORT ---
CT ANGIOGRAPHY OF THE CHEST, PULMONARY EMBOLUS PROTOCOL CLINICAL HISTORY: Shortness of breath and nausea. Rectal carcinoma. COMPARISON STUDY: Chest CT August 31, 2017 and chest radiograph performed earlier today. TECHNIQUE: Following IV administration of 95 mL of Optiray-320, helical axial images of the chest were obtained utilizing the pulmonary embolus protocol. Maximal intensity projections and sagittal and coronal reformats were viewed on an independent 3D workstation. IV contrast was administered without complication. A dose lowering technique was utilized adhering to the principles of ALARA. CT DOSE: 660.04 mGy.cm FINDINGS: No pulmonary emboli are identified although the segmental and subsegmental pulmonary arteries within the lower lobes are suboptimally assessed due to respiratory motion. There is moderate cardiomegaly. No pericardial effusion is identified. Prominent mediastinal and bilateral hilar lymph nodes are unchanged since CT of August 31, 2017. There is no pneumothorax or pleural effusion. A 6 mm left lower lobe nodule shown image 74 of 261 and a 6 mm right upper lobe nodule shown image 165 of [address] of August 31, 2017. These nodules are indeterminate. No consolidation is identified to suggest pneumonia. No suspicious osseous lesions are present. Upper abdomen is unchanged in appearance. IMPRESSION: 1. No pulmonary emboli identified although segmental and subsegmental pulmonary arteries within the lower lobes suboptimally assessed due to respiratory motion. 2. 6 mm left lower lobe nodule and 6 mm right upper lobe nodule which are similar to CT of August 31, 2017. However, these nodules remain indeterminate and metastatic disease is within the differential given the history of rectal carcinoma. 3. No change in prominent mediastinal and bilateral hilar lymph nodes which are indeterminate and can be followed on subsequent exams to ensure stability. Electronically signed by: Humberto Montanez M.D. 09/12/2017 5:12 PM Dictated Date/Time: 09/12/2017 4:57 PM
[2017-09-12] MEDS ORDERED: VANCOMYCIN INJ 2,250 MG in SODIUM CHLORIDE 0.9% 500ML 500 ML IV SCH (18:00)
[2017-09-12] MEDS ORDERED: POLYETHYLENE (MIRALAX) 17 GM PACK PO PRN (18:15)
[2017-09-12] MEDS ORDERED: ONDANSETRON INJ 2 MG/ML 2 ML VIAL IV PRN (18:15)
[2017-09-12] MEDS ORDERED: ACETAMINOPHEN 325 MG TAB PO PRN (18:15)
[2017-09-12] MEDS ORDERED: ALBUTEROL HFA 8 GM INHALER INH PRN (18:45)
[2017-09-12] MEDS ORDERED: GLUCOSE 10 TABS/TUBE PO PRN (19:00)
[2017-09-12] MEDS ORDERED: DEXTROSE 50% 50 ML SYR IV PRN (19:00)
[2017-09-12] MEDS ORDERED: GLUCAGON FOR INJ 1 MG VIAL SQ PRN (19:00)
[2017-09-12] MEDS ORDERED: GLUCOSE 40% GEL 15 GM TUBE PO PRN (19:00)
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
[2017-09-12 20:57] VITALS: BP 104/67; PULSE 63; TEMP 36.8; O2SAT 99
[2017-09-12] MEDS: LEVALBUTEROL 1.25MG/3ML NEB INH SCH (21:00)
[2017-09-12] MEDS ORDERED: SODIUM CHLORIDE 0.9% 1000ML 1,000 ML IV SCH (21:00)
[2017-09-12] MEDS ORDERED: INSULIN GLARGINE SOLOSTAR 100 UNITS/ML 3 ML PEN SC SCH (21:00)
[2017-09-12] MEDS: SODIUM CHLORIDE 0.9% 1000ML 500 ML IV STA ×2 (21:30→21:31)
[2017-09-12] MEDS: MONTELUKAST SOD 10 MG TAB PO SCH (21:42)
[2017-09-12] MEDS: GABAPENTIN 400 MG CAP PO SCH (21:42)
[2017-09-12] MEDS: SIMVASTATIN 40 MG TAB PO SCH (21:43)
[2017-09-12 22:14] VITALS: BP 104/67; PULSE 63; TEMP 36.8; O2SAT 97; BMI 42.1
[2017-09-13] VITALS (12 sets, daily range): BP systolic 106–139; BP diastolic 58–92; PULSE 24–79; TEMP 36.4–36.7; O2SAT 96–100; Ht 157.5 cm; Wt 100.7 kg
[2017-09-13] MEDS: LEVALBUTEROL 1.25MG/3ML NEB INH SCH ×2 (01:52→07:02)
--- NOTE | 2017-09-13 02:37 | Progress Note ---
Progress Note Date of Service Sep 13, 2017. Progress Note acute episode of hypoxia and tachypnea when getting up out of bed EKG showed T wave inversions in V4-6 which were not noted on earlier EKG Heparin drip, transfer to [facility] for obs, echo and troponin trend, repeat EKG at 0700
[2017-09-13] MEDS ORDERED: ASPIRIN 81 MG CHEW PO STA (02:38)
[2017-09-13] MEDS ORDERED: HEPARIN 25,000 UNIT/500ML D5W 500 ML IV PRN (04:00)
[2017-09-13] MEDS ORDERED: PNEUMOCOCCAL POLYSACCHARIDES 25 MCG/0.5 ML VIAL/SYR IM. ONE (04:00)
[2017-09-13] MEDS ORDERED: INFLUENZA VIRUS QUAD VACCINE 0.5 ML SYR IM. ONE (04:00)
[2017-09-13] MEDS ORDERED: INFLUENZA ADMINISTRATION CHARGE ONE (04:00)
[2017-09-13] MEDS ORDERED: PNEUMOCOCCAL ADMINISTRATION CHARGE ONE (04:00)
[2017-09-13 07:10] LABS: BASO % 0.2 %; BASO ABS # 0.02 K/uL (0-0.2); COMPLETE YES; EOS % 4.3 %; HEMATOCRIT 39.1 % (37-47); IG% 0.4 %; LYMPH % 26.1 %; MEAN CELL VOLUME 84.1 fL (80-100); MEAN CORPUSCULAR HEMOGLOBIN 27.5 pg (25-34); MEAN CORPUSCULAR HGB CONC 32.7 g/dl (32-36); MEAN PLATELET VOLUME 9.5 fL (7.4-10.4); MONO % 8.9 %; NEUT % 60.1 %; PLATELET COUNT 195 K/uL (130-400); RED BLOOD COUNT 4.65 M/uL (4.2-5.4); WHITE BLOOD COUNT 8.44 K/uL (4.8-10.8)
--- NOTE | 2017-09-13 07:28 | DIAGNOSTIC IMAGING REPORT ---
SINGLE VIEW CHEST CLINICAL HISTORY: Dyspnea. FINDINGS: An AP, portable, upright chest radiograph is compared to chest x-ray and chest CT dated 09/12/2017. The examination is degraded by portable technique, large body habitus, and patient rotation. The heart is enlarged. The pulmonary vasculature is noncongested. No airspace consolidation or large pleural effusion is identified. Small pulmonary nodules seen by CT are not apparent by x-ray. No pneumothorax is seen. The skeletal structures appear osteopenic. The bony thorax is grossly intact. IMPRESSION: Cardiomegaly with no acute cardiopulmonary abnormality. Electronically signed by: Tacho Delatorre M.D. 09/13/2017 7:27 AM Dictated Date/Time: 09/13/2017 7:25 AM
[2017-09-13 07:29] LABS: ESTIMATED AVERAGE GLUCOSE 223 mg/dl; HA1C FLAG Normal (Normal)
[2017-09-13 07:51] LABS: BUN/CREATININE RATIO 12.5 (10-20); CALCIUM 8.3 mg/dl (8.5-10.1); CHOLESTEROL/HDL RATIO 2.8; CREATININE 0.88 mg/dl (0.60-1.20); POTASSIUM 3.2 mmol/L (3.5-5.1)
[2017-09-13] MEDS: ASPIRIN 81 MG ECTAB PO SCH (08:07)
[2017-09-13] MEDS: VENLAFAXINE HCL XR 150 MG CAPXR PO SCH (08:07)
[2017-09-13] MEDS: LORATADINE 10 MG TAB PO SCH (08:07)
[2017-09-13] MEDS: METOPROLOL TARTRATE 25 MG TAB PO SCH (08:08)
[2017-09-13] MEDS: LISINOPRIL 5 MG TAB PO SCH (08:08)
[2017-09-13] MEDS: GABAPENTIN 400 MG CAP PO SCH ×3 (08:08→21:06)
[2017-09-13] MEDS: INSULIN GLARGINE SOLOSTAR 100 UNITS/ML 3 ML PEN SC SCH ×2 (08:09→21:14)
[2017-09-13] MEDS ORDERED: POTASSIUM CHLORIDE 20 MEQ TABCR PO ONE (09:30)
--- NOTE | 2017-09-13 10:10 | Clinical Documentation Query ---
KILEY Espinoza : CLINICAL DOCUMENTATION QUERY Patient is a 51 year old female admitted for evaluation and treatment of progressive shortness of breath with acute worsening today. Lactic acidosis, leukocytosis, fever, tachypnea, hypoxia noted on presentation. ED documentation includes "sepsis". This diagnosis was not carried forward. H&P admission diagnoses include "elevated lactic acid" and "shortness of breath". She was admitted to telemetry, recieved IVF, chest radiograph, chest CT. Attending noted "??viral etiology" in the setting of leukocytosis, fever, and lactic acidemia. Currently being treated off of antibacterial agents. As appropriate, consider clarification as suggested below. Thank you. In your clinical opinion is this patient being managed for: ( ) (Possible/Suspected) Viral septicemia ( x ) Not Agree Acute/chronic dyspnea - etiology to still be determined. ( ) Other explanation of clinical findings (Please Explain) ( ) Unable to determine (Please Define) ( ) Need to Discuss The medical record reflects the following clinical findings, treatment, and risk factors. Clinical Indicators: As above Treatment: As above Risk Factors: DM, obesity, seasonal viral illnesses Please clarify and document your clinical opinion in the progress notes and discharge summary. Terms such as "probable", "suspected", "likely", "questionable", "possible", or "still to be ruled out" are acceptable. IF IN AGREEMENT, YOU MUST DOCUMENT ABOVE DIAGNOSTIC STATEMENT IN DAILY PROGRESS NOTES AND DISCHARGE SUMMARY. This document is not part of the patient's record. Thank You, Juventino Samayoa RN [phone]
--- NOTE | 2017-09-13 10:11 | Clinical Documentation Query ---
JEEVAN Galan : CLINICAL DOCUMENTATION QUERY Patient is a 51 year old female admitted for evaluation and treatment of progressive shortness of breath with acute worsening today. Lactic acidosis, leukocytosis, fever, tachypnea, hypoxia noted on presentation. ED documentation includes "sepsis". This diagnosis was not carried forward. H&P admission diagnoses include "elevated lactic acid" and "shortness of breath". She was admitted to telemetry, recieved IVF, chest radiograph, chest CT. Attending noted "??viral etiology" in the setting of leukocytosis, fever, and lactic acidemia. Currently being treated off of antibacterial agents. As appropriate, consider clarification as suggested below. Thank you. In your clinical opinion is this patient being managed for: ( ) (Possible/Suspected) Viral septicemia (x ) Not Agree. No lactic acidosis. POC lactic acid elevated, but actual lab lactic acid only 1.3 taken 3.5 hours later. Questionable sepsis given fever and mildly elevated WBC on arrival, but most likely asthma exacerbation at this point ( ) Other explanation of clinical findings (Please Explain) ( ) Unable to determine (Please Define) ( ) Need to Discuss The medical record reflects the following clinical findings, treatment, and risk factors. Clinical Indicators: As above Treatment: As above Risk Factors: DM, obesity, seasonal viral illnesses Please clarify and document your clinical opinion in the progress notes and discharge summary. Terms such as "probable", "suspected", "likely", "questionable", "possible", or "still to be ruled out" are acceptable. IF IN AGREEMENT, YOU MUST DOCUMENT ABOVE DIAGNOSTIC STATEMENT IN DAILY PROGRESS NOTES AND DISCHARGE SUMMARY. This document is not part of the patient's record. Thank You, Juventino Samayoa, VIRI [phone]
[2017-09-13] MEDS ORDERED: NURSING VERBAL MED ORDER ONE (11:00)
[2017-09-13] MEDS ORDERED: PERFLUTREN LIPID MICROSPHERE (DEFINITY) IV ONE (11:44)
[2017-09-13] MEDS ORDERED: METHYLPREDNISOLONE IV 125 MG in SYRINGE 0 ML IV ONE (12:00)
--- NOTE | 2017-09-13 12:17 | Hospitalist Progress Note ---
Hospitalist Progress Note Date of Service Sep 13, 2017. (Sarahi Garcia ., NAOMYC) Subjective Pt evaluation today including: conversation w/ patient, physical exam, chart review, lab review, review of studies, review of inpatient medication list Pain: None PO Intake: Tolerating PO diet Voiding: no voiding problems Patient reports feeling better than yesterday. She still complains of shortness of breath, especially dyspnea on exertion. She also reports a wet but non-productive cough and wheezing. She does not wear oxygen at home, only a CPAP at night. She denies any nausea or vomiting today and is tolerating a clear liquid diet well. She denies any abdominal pain. She does state that she gets a bit dizzy when getting up to the bathroom sometimes, but this resolves with rest. She notes chronic diabetic neuropathy in her feet. The patient denies fevers, chills, sweats, chest pain, palpitations, claudication, nausea, vomiting, abdominal pain, dysuria, hematuria, urinary retention, paralysis, weakness. Additional Comments: See HPI for pertinent positives and negatives. All other systems reviewed and negative. (Sarahi Garcia ., SOREN-C) Objective Vital Signs Date Time Temp Pulse Resp B/P (MAP) Pulse Ox O2 Delivery O2 Flow Rate FiO2 09/13/17 08:00 Nasal Cannula 3.5 09/13/17 07:49 36.7 60 16 129/72 (91) 100 Room Air 60 09/13/17 07:05 64 18 99 Nasal Cannula 2.0 09/13/17 04:00 Nasal Cannula 3.5 09/13/17 03:10 36.4 50 16 106/60 (75) 99 Nasal Cannula 3.5 09/13/17 01:54 48 18 98 Nasal Cannula 3.0 09/13/17 01:26 55 26 126/72 (90) 100 Nasal Cannula 3.5 09/13/17 00:30 Nasal Cannula 3.5 09/13/17 00:00 36.4 60 20 114/77 (89) 97 3.0 09/12/17 22:14 36.8 63 20 104/67 97 Nasal Cannula 3.5 09/12/17 20:57 36.8 63 20 104/67 (79) 99 Nasal Cannula 3.0 09/12/17 19:44 68 20 121/74 97 Oxymask 4.0 09/12/17 19:02 139/74 09/12/17 18:41 68 19 98 Oxymask 4.0 09/12/17 18:36 70 14 99 09/12/17 18:31 38.1 104/65 09/12/17 18:17 126/59 09/12/17 18:06 76 24 98 09/12/17 18:01 127/63 09/12/17 17:36 76 26 99 09/12/17 17:32 119/62 09/12/17 17:10 110/75 09/12/17 17:06 77 20 97 09/12/17 16:36 77 32 98 09/12/17 16:31 142/64 09/12/17 16:30 126/79 09/12/17 16:23 76 19 97 09/12/17 16:15 75 09/12/17 16:01 98 Non-Rebreather 15.0 09/12/17 15:53 72 32 09/12/17 15:42 Room Air 09/12/17 15:37 38.4 69 28 159/96 98 Non-Rebreather 15.0 09/12/17 15:34 159/96 (Sarahi Garcia ., PA-C) Physical Exam Notes: General appearance: +Morbidly obese. Well-developed, well-nourished, no apparent distress Head: Normocephalic, atraumatic Eyes: Normal inspection, PERRL, EOMI ENT: Normal ENT inspection, hearing grossly normal, pharynx normal Neck: Supple, no JVD, trachea midline Respiratory/Chest: +Wheezing throughout, tight with poor air movement. Currently on 3.5L NC. No respiratory distress Cardiovascular: Regular rate & rhythm, no gallop, no murmur Abdomen/GI: Normal bowel sounds, non-tender, soft Extremities/Musculoskeletal: Normal inspection, no calf tenderness, no pedal edema Neurological/Psych: Alert, normal mood/affect, oriented x 3 Skin: Normal color, warm/dry, no rash (Sarahi Garcia ., PA-C) Laboratory Results Last 24 Hours Test 09/12/17 15:55 09/12/17 16:04 09/12/17 16:40 09/12/17 19:27 White Blood Count 12.09 K/uL Red Blood Count 4.83 M/uL Hemoglobin 13.5 g/dL Hematocrit 39.6 % Mean Corpuscular Volume 82.0 fL Mean Corpuscular Hemoglobin 28.0 pg Mean Corpuscular Hemoglobin Concent 34.1 g/dl Platelet Count 245 K/uL Mean Platelet Volume 10.0 fL Neutrophils (%) (Auto) 67.0 % Lymphocytes (%) (Auto) 21.9 % Monocytes (%) (Auto) 9.9 % Eosinophils (%) (Auto) 0.7 % Basophils (%) (Auto) 0.2 % Neutrophils # (Auto) 8.08 K/uL Lymphocytes # (Auto) 2.65 K/uL Monocytes # (Auto) 1.20 K/uL Eosinophils # (Auto) 0.09 K/uL Basophils # (Auto) 0.03 K/uL RDW Standard Deviation 41.1 fL RDW Coefficient of Variation 13.6 % Immature Granulocyte % (Auto) 0.3 % Immature Granulocyte # (Auto) 0.04 K/uL Prothrombin Time 12.5 SECONDS Prothromb Time International Ratio 1.2 Activated Partial Thromboplast Time 24.9 SECONDS Partial Thromboplastin Ratio 1.0 Sodium Level 135 mmol/L Potassium Level 4.2 mmol/L Chloride Level 101 mmol/L Carbon Dioxide Level 24 mmol/L Anion Gap 10.0 mmol/L Blood Urea Nitrogen 12 mg/dl Creatinine 1.14 mg/dl Est Creatinine Clear Calc Drug Dose 64.8 ml/min Estimated GFR () 63.6 Estimated GFR (Non- 54.9 BUN/Creatinine Ratio 10.5 Random Glucose 284 mg/dl Calcium Level 8.7 mg/dl Total Bilirubin 1.9 mg/dl Direct Bilirubin 0.4 mg/dl Aspartate Amino Transf (AST/SGOT) 29 U/L Alanine Aminotransferase (ALT/SGPT) 25 U/L Alkaline Phosphatase 88 U/L Total Creatine Kinase 123 U/L Creatine Kinase MB 1.5 ng/ml Creatine Kinase MB Ratio 1.2 Total Protein 7.1 gm/dl Albumin 2.9 gm/dl Lipase 83 U/L Thyroid Stimulating Hormone (TSH) 3.330 uIu/ml Bedside D-Dimer > 450 ng/mlFEU Bedside Lactic Acid Venous 5.12 mmol/L Bedside Troponin I < 0.030 ng/ml Influenza Type A Antigen Neg for Influ A Influenza Type B Antigen Neg for Influ B Lactic Acid Level 1.3 mmol/L Test 09/12/17 21:46 09/13/17 02:55 09/13/17 03:01 09/13/17 05:49 Bedside Glucose 255 mg/dl 106 mg/dl 77 mg/dl Troponin I 0.040 ng/ml Test 09/13/17 06:51 White Blood Count 8.44 K/uL Red Blood Count 4.65 M/uL Hemoglobin 12.8 g/dL Hematocrit 39.1 % Mean Corpuscular Volume 84.1 fL Mean Corpuscular Hemoglobin 27.5 pg Mean Corpuscular Hemoglobin Concent 32.7 g/dl Platelet Count 195 K/uL Mean Platelet Volume 9.5 fL Neutrophils (%) (Auto) 60.1 % Lymphocytes (%) (Auto) 26.1 % Monocytes (%) (Auto) 8.9 % Eosinophils (%) (Auto) 4.3 % Basophils (%) (Auto) 0.2 % Neutrophils # (Auto) 5.08 K/uL Lymphocytes # (Auto) 2.20 K/uL Monocytes # (Auto) 0.75 K/uL Eosinophils # (Auto) 0.36 K/uL Basophils # (Auto) 0.02 K/uL RDW Standard Deviation 42.5 fL RDW Coefficient of Variation 14.1 % Immature Granulocyte % (Auto) 0.4 % Immature Granulocyte # (Auto) 0.03 K/uL Sodium Level 139 mmol/L Potassium Level 3.2 mmol/L Chloride Level 106 mmol/L Carbon Dioxide Level 28 mmol/L Anion Gap 5.0 mmol/L Blood Urea Nitrogen 11 mg/dl Creatinine 0.88 mg/dl Est Creatinine Clear Calc Drug Dose 82.8 ml/min Estimated GFR () 86.9 Estimated GFR (Non- 75.0 BUN/Creatinine Ratio 12.5 Random Glucose 81 mg/dl Estimated Average Glucose 223 mg/dl Hemoglobin A1c 9.4 % Calcium Level 8.3 mg/dl Total Bilirubin 1.5 mg/dl Direct Bilirubin 0.3 mg/dl Aspartate Amino Transf (AST/SGOT) 23 U/L Alanine Aminotransferase (ALT/SGPT) 20 U/L Alkaline Phosphatase 67 U/L Troponin I 0.038 ng/ml Total Protein 6.4 gm/dl Albumin 2.7 gm/dl Triglycerides Level 63 mg/dl Cholesterol Level 85 mg/dl HDL Cholesterol 30 mg/dl LDL Cholesterol, Calculated 42 mg/dl VLDL Cholesterol, Calculated 13 mg/dl Cholesterol/HDL Ratio 2.8 (Sarahi Garcia ., NAOMYC) Diagnostic Results Reviewed the following studies and agree with interpretation as follows: SINGLE VIEW CHEST CLINICAL HISTORY: Dyspnea. FINDINGS: An AP, portable, upright chest radiograph is compared to chest x-ray and chest CT dated 09/12/2017. The examination is degraded by portable technique, large body habitus, and patient rotation. The heart is enlarged. The pulmonary vasculature is noncongested. No airspace consolidation or large pleural effusion is identified. Small pulmonary nodules seen by CT are not apparent by x-ray. No pneumothorax is seen. The skeletal structures appear osteopenic. The bony thorax is grossly intact. IMPRESSION: Cardiomegaly with no acute cardiopulmonary abnormality. (Sarahi Garcia ., NAOMYC) Assessment and Plan 51 y/o female with a history of asthma, DM II, HTN, HLD, chronic diastolic CHF, hypothyroidism, lung nodules, ANA on CPAP, and depression who presents with progressive shortness of breath and dyspnea on exertion. The patient had initially presented with fever of 38.4C, elevated WBC and elevated POC lactic acid over 5. However, repeat lab value lactic acid shortly after was only 1.3. Shortness of breath, likely secondary to asthma exacerbation--significant wheezing on exam, tight -Start Solu-Medrol 125 mg IV x 1, then 60 mg IV q12h -DuoNebs QIDR -O2 by protocol. Currently on 3.5L but does not wear oxygen at home -Flu swabs negative -Repeat CXR with cardiomegaly, no acute disease -CTA negative for PE. Stable lung nodules in LLL and RUL. -Continue Singulair ?Sepsis possible viral etiology--resolved. Pt did not truly have elevated lactic acid, no fevers since admission -Leukocytosis resolved, no fevers, VSS -CXR no acute disease -Blood cultures pending -No need for antibiotics at this time -D/C IVF. Pt does have h/o grade II diastolic dysfunction per outpt echo ?TWI on EKG--stable -Seam Steamer notified of episode of hypoxia and tachypnea. EKG at that time showed possible lateral TWI. On my review, these appear to be flattened T waves on a low voltage EKG. Pt denies any chest pain -Pt transferred to tele. No acute events, pt in SR with HR in 60s -Repeat EKG this morning stable, no significant ischemia -Heparin drip had been started. Troponin negative x 2, will d/c heparin -EKG q am and prn chest pain Elevated bilirubin--improving - Total bilirubin 1.5 on 09/13, down from 1.9. Denies abdominal pain, N/V - Consider GI consultation or RUQ u/s if worsening - At this time more likely that this is viral and due to dehydration. HTN, HLD, chronic diastolic CHF--stable - IVF d/c'd - Resume Lasix 20 mg PO qd - Continue ASA, lisinopril 5 mg PO qd, Lopressor 25 mg PO qd, Zocor 40 mg PO qd DM II--HgbA1c 9.4 on 09/13 - Pt takes Toujeo 60 units SC BID--given Lantus at 80% dose for first dose, tolerated well, can resume at full home dose - Lantus 60 units SC BID - Insulin sliding scale - Check BSGs q ac and qhs - Continue gabapentin 400 mg PO TID for neuropathy Hypothyroidism - Continue Levoxyl 1400 mcg PO qd. High dose confirmed in outpt endocrinology notes ANA -Continue CPAP Depression -Continue Effexor 150 mg PO qd DVT prophylaxis -Enoxaparin 40 mg SC q24h -DEBBI tucker SCDs Code Status -Level I, FULL RESUSCITATION STATUS (Sarahi Garcia ., PAGalinaC) Attending Attestation: Pt seen/examined, chart reviewed, care plan d/w SOREN Garcia. I agree w/ the aguirre components of her documentation. Pt's main complaint is that of HOOKS. Has had this for some time but worse as of late. Reports 9# weight gain in 1 week (states she was 215# at doctor's office recently). Feels bloated in abdomen. Reports she was dx with 'asthma' in her 20s or 30s. Has not had PFTs or other pulmonary work-up and has not seen a windsurfing instructor. She saw Iker Sanches from [facility] and had a stress test in the last few weeks; she doesn't have the results. VSS afebrile gen - obese, NAD neck - difficult to assess for JVD heart - RRR lungs - no wheeze, decreased BS bases abd - obese, soft, no HSM ext - trace edema b/l A/P: dyspnea - exact etiology uncertain. differential - asthma w/ exacerbation vs acute/chronic diastolic CHF vs other. CTA neg for PE. no lobar pneumonia on CT. hilar/mediastinal nodes & 2 nodules seen. with her reported 9# weight gain in 1 week this could suggest acute/chronic diastolic CHF trial of lasix 40mg IV x 1 steroids added by Dameon Jose check sed rate/crp in am to r/o inflammatory lung disease given the lymphadenopathy (e.g. sarcoid) ischemic w/u thus far negative w/ negative troponins and cath a few years ago showed normal coronaries low-voltage on EKG could be due to severe obesity but echo is pending to r/o pericardial effusion and other abnormalities if all of the above work-up is negative consider PFTs, pulmonary consultation, etc Aashish Hinton MD (Aashish Hinton MD)
[2017-09-13] MEDS: ALBUT/IPRATROP 3MG/0.5MG NEB 3 ML VIAL INH SCH ×2 (15:05→19:05)
[2017-09-13] MEDS: INSULIN ASPART 100 UNITS/ML 3 ML PEN SC SCH ×2 (16:15→21:15)
[2017-09-13] MEDS ORDERED: POTASSIUM CHLORIDE 10 MEQ TABCR PO STA (16:23)
[2017-09-13] MEDS ORDERED: LEVOTHYROXINE 200 MCG TAB PO STA (16:23)
[2017-09-13] MEDS ORDERED: MAGNESIUM OXIDE 400 MG TAB PO ONE (16:30)
[2017-09-13] MEDS ORDERED: FUROSEMIDE INJ 40 MG in SYRINGE 0 ML IV ONE (16:45)
[2017-09-13] MEDS: ENOXAPARIN 40 MG/0.4 ML SYR SQ SCH (21:06)
[2017-09-13] MEDS: MONTELUKAST SOD 10 MG TAB PO SCH (21:07)
[2017-09-13] MEDS: SIMVASTATIN 40 MG TAB PO SCH (21:07)
[2017-09-14] VITALS (10 sets, daily range): BP systolic 111–136; BP diastolic 59–89; PULSE 58–80; TEMP 36.4–36.9; O2SAT 90–96
[2017-09-14] MEDS: METHYLPREDNISOLONE IV 60 MG in SYRINGE 0 ML IV SCH ×2 (00:26→11:42)
[2017-09-14] MEDS ORDERED: hydrOXYzine HCL 25 MG TAB PO STA (02:02)
[2017-09-14] MEDS: ALBUT/IPRATROP 3MG/0.5MG NEB 3 ML VIAL INH SCH ×4 (07:11→19:16)
[2017-09-14 07:28] LABS: BUN/CREATININE RATIO 19.5 (10-20); C-REACTIVE PROTEIN 2.61 mg/dl (0-0.29); CALCIUM 9.1 mg/dl (8.5-10.1); CREATININE 0.88 mg/dl (0.60-1.20); MAGNESIUM 1.9 mg/dl (1.8-2.4); POTASSIUM 4.2 mmol/L (3.5-5.1)
[2017-09-14] MEDS: GABAPENTIN 400 MG CAP PO SCH ×3 (08:36→20:30)
[2017-09-14] MEDS: LORATADINE 10 MG TAB PO SCH (08:36)
[2017-09-14] MEDS: METOPROLOL TARTRATE 25 MG TAB PO SCH (08:36)
[2017-09-14] MEDS: LEVOTHYROXINE 200 MCG TAB PO SCH (08:37)
[2017-09-14] MEDS: ASPIRIN 81 MG ECTAB PO SCH (08:37)
[2017-09-14] MEDS: LISINOPRIL 5 MG TAB PO SCH (08:37)
[2017-09-14] MEDS: VENLAFAXINE HCL XR 150 MG CAPXR PO SCH (08:37)
[2017-09-14] MEDS: FUROSEMIDE 20 MG TAB PO SCH (08:38)
[2017-09-14] MEDS: INSULIN GLARGINE SOLOSTAR 100 UNITS/ML 3 ML PEN SC SCH ×2 (08:39→20:38)
[2017-09-14] MEDS: INSULIN ASPART 100 UNITS/ML 3 ML PEN SC SCH ×4 (08:39→20:38)
--- NOTE | 2017-09-14 09:10 | ECHOCARDIOGRAM REPORT ---
*NOTICE TO RECEIVING LIBERTARIAN AGENCY This information is strictly Confidential and protected under [place] law. [place] law prohibits you from making any further disclosure of this information unless further disclosure is expressly permitted by the written consent of the person to whom it pertains or is authorized by law. A general authorization for the release of medical or other information is not sufficient for this purpose. Hospital accepts no responsibility if the information is made available to any other person, INCLUDING THE PATIENT. Interpretation Summary * Name: DERRELL WOODS Study Date: 09/13/2017 11:10 AM BP: 129/72 mmHg * Patient Location: .2E\S\E204\S\1 HR: 55 * : 1965 (M/d/yyyy) Gender: Female Height: 62 in * Age: 51 yrs Ethnicity: [place] Weight: 230 lb * Ordering Physician: Fallon Kaur * Referring Physician: Self, Referred * Performed By: Elaine Michelle RCS * * Reason For Study: Sudden SOB * BSA: 2.0 m2 * Compared to prior study, there is no significant change. * -- Conclusions -- * The left ventricle is normal in size. * Left ventricular systolic function is normal. * There is borderline hypokinesis of the basal inferior posterior wall. * Ejection Fraction = 55-60%. * The aortic valve is not well visualized. * No hemodynamically significant valvular aortic stenosis. * There is moderate to severe mitral regurgitation. * The mitral regurgitant jet is eccentrically directed. * Doppler findings do not suggest pulmonary hypertension. Procedure Details * A complete two-dimensional transthoracic echocardiogram was performed (2D, M-mode, Doppler and color flow Doppler). * There were technical limitations due to patient'sbody habitus * A contrast injection of Definity was performed to improve assessment of LV function. * Contrast was injected into an intravenous site in the right arm. * One vial of Definity ultrasound contrast was diluted in normal saline to a total volume of 10 ml. A total of '1' ml of solution was administered during imaging. * Lot # [id number] of Definity utilized for procedure. * Expiration date . * The attending nurse who injected the contrast agent was Stephen Topete RN. Left Ventricle * The left ventricle is normal in size. * There is normal left ventricular wall thickness. * Ejection Fraction = 55-60%. * Left ventricular systolic function is normal. * There is borderline hypokinesis of the basal inferior posterior wall. Right Ventricle * The right ventricle is normal in size and function. Atria * The left atrium is mildly dilated. * Right atrial size is normal. * No ASD detected; PFO is not assessed. Mitral Valve * There is no mitral valve stenosis. * There is moderate to severe mitral regurgitation. * The mitral regurgitant jet is eccentrically directed. Tricuspid Valve * The tricuspid valve is normal. * There is no tricuspid stenosis. * There is trace tricuspid regurgitation. * Doppler findings do not suggest pulmonary hypertension. Aortic Valve * The aortic valve is not well visualized. * No hemodynamically significant valvular aortic stenosis. * No aortic regurgitation is present. Pulmonic Valve * The pulmonic valve is not well visualized. Great Vessels * The aortic root is normal size. Pericardium/Pleural * There is no pericardial effusion. Great Vessels * Normal inferior vena cava diameter and respiratory variation suggests normal central venous pressure. Left Ventricular Diastolic Function * Diastolic dysfunction, Grade III (restrictive pattern), consistent with markedly increased left atrial pressure. MMode 2D Measurements and Calculations ACS 1.7 cm LA dimension 4.5 cm asc Aorta Diam 2.8 cm EDV(MOD-sp4) 144.6 ml ESV(MOD-sp4) 55.0 ml EF(MOD-sp4) 61.9 % EDV(MOD-sp2) 154.7 ml ESV(MOD-sp2) 68.9 ml EF(MOD-sp2) 55.4 % SV(MOD-sp4) 89.6 ml SI(MOD-sp4) 44.1 ml/m\S\2 SV(MOD-sp2) 85.8 ml SI(MOD-sp2) 42.3 ml/m\S\2 Doppler Measurements and Calculations MV E max shirley 116.5 cm/sec MV A max shirley 37.7 cm/sec MV E/A 3.1 MV P1/2t max shirley 139.8 cm/sec MV P1/2t 77.4 msec MVA(P1/2t) 2.8 cm\S\2 MV dec slope 528.6 cm/sec\S\2 MV dec time 0.18 sec Ao V2 max 122.1 cm/sec Ao max PG 6.0 mmHg Ao max PG (full) 2.2 mmHg LV V1 max PG 3.8 mmHg LV V1 max 97.4 cm/sec PA V2 max 68.6 cm/sec PA max PG 1.9 mmHg TR max shirley 250.0 cm/sec
[2017-09-14] MEDS ORDERED: ALBUT/IPRATROP 3MG/0.5MG NEB 3 ML VIAL INH PRN (11:30)
[2017-09-14] MEDS ORDERED: IPRATROPIUM BROMIDE/ALBUTEROL respimat INH INH SCH (13:00)
[2017-09-14] MEDS ORDERED: FUROSEMIDE INJ 40 MG in SYRINGE 0 ML IV ONE (15:00)
--- NOTE | 2017-09-14 15:11 | Hospitalist Progress Note ---
Hospitalist Progress Note Date of Service Sep 14, 2017. (Sarahi Garcia ., PA-C) Subjective Pt evaluation today including: conversation w/ patient, physical exam, chart review, lab review, review of inpatient medication list Pain: None PO Intake: Tolerating PO diet Voiding: no voiding problems Patient reports feeling better. She denies any shortness of breath currently but still complains of dyspnea on exertion. She complains of a wet, non- productive cough and wheezing. The patient denies fevers, chills, sweats, chest pain, palpitations, claudication, nausea, vomiting, abdominal pain, dysuria, hematuria, urinary retention, paralysis, weakness, numbness and tingling. Per nursing, the patient was ambulating the hallways on room air with shortness of breath and O2 sats dropped to 86%. Sats then returned to 90s with rest. Physical therapy walked the patient around the hallway again later in the afternoon, and the patient's sats remained at 94% on room air. The patient did have dyspnea at this time as well. Additional Comments: See HPI for pertinent positives and negatives. All other systems reviewed and negative. (Sarahi Garcia ., PA-C) Objective Vital Signs Date Time Temp Pulse Resp B/P (MAP) Pulse Ox O2 Delivery O2 Flow Rate FiO2 09/14/17 12:00 Room Air 09/14/17 11:39 36.5 63 19 121/77 (92) 92 Room Air 09/14/17 08:00 Room Air 09/14/17 07:58 36.6 65 22 121/89 (100) 94 Nasal Cannula 2.0 09/14/17 07:11 72 18 90 Room Air 09/14/17 04:00 Nasal Cannula 1.0 09/14/17 03:50 36.9 69 20 111/59 (76) 95 09/14/17 00:29 36.4 80 18 136/74 (94) 96 09/13/17 23:59 Nasal Cannula 1.0 09/13/17 20:00 Room Air CPAP 09/13/17 20:00 36.4 79 18 139/92 (108) 97 Room Air 2.0 CPAP 09/13/17 19:08 74 18 97 Nasal Cannula 2.0 09/13/17 18:51 36.4 79 20 139/92 (108) 96 Nasal Cannula 2.0 09/13/17 16:00 Room Air CPAP 09/13/17 15:09 36.5 59 14 123/70 (87) 97 2.0 09/13/17 15:07 55 18 97 Nasal Cannula 2.0 (Sarahi Garcia, SOREN-C) Physical Exam Notes: General appearance: +Morbidly obese. Well-developed, well-nourished, no apparent distress Head: Normocephalic, atraumatic Eyes: Normal inspection, PERRL, EOMI ENT: Normal ENT inspection, hearing grossly normal, pharynx normal Neck: Supple, no JVD, trachea midline Respiratory/Chest: +Decreased breath sounds, tight with poor air movement. Currently on room air. No respiratory distress Cardiovascular: Regular rate & rhythm, no gallop, no murmur Abdomen/GI: Normal bowel sounds, non-tender, soft Extremities/Musculoskeletal: Normal inspection, no calf tenderness, no pedal edema Neurological/Psych: Alert, normal mood/affect, oriented x 3 Skin: Normal color, warm/dry, no rash (Sarahi Garcia ., SOREN-C) Laboratory Results Last 24 Hours Test 09/13/17 16:17 09/13/17 18:33 09/13/17 20:40 09/14/17 06:40 Bedside Glucose 157 mg/dl 360 mg/dl 149 mg/dl Troponin I < 0.015 ng/ml Test 09/14/17 06:41 09/14/17 11:21 Erythrocyte Sedimentation Rate 27 mm/hr Sodium Level 137 mmol/L Potassium Level 4.2 mmol/L Chloride Level 101 mmol/L Carbon Dioxide Level 28 mmol/L Anion Gap 7.0 mmol/L Blood Urea Nitrogen 17 mg/dl Creatinine 0.88 mg/dl Est Creatinine Clear Calc Drug Dose 82.1 ml/min Estimated GFR () 86.9 Estimated GFR (Non- 75.0 BUN/Creatinine Ratio 19.5 Random Glucose 155 mg/dl Calcium Level 9.1 mg/dl Magnesium Level 1.9 mg/dl Total Bilirubin 1.1 mg/dl Direct Bilirubin 0.3 mg/dl C-Reactive Protein 2.61 mg/dl Bedside Glucose 229 mg/dl (Sarahi Garcia, SOREN-C) Diagnostic Results Reviewed the following studies and agree with interpretation as follows: Interpretation Summary * Name: DERRELL WOODS Study Date: 09/13/2017 11:10 AM BP: 129/72 mmHg * Patient Location: [facility] – [place]\S\E204\S\1 HR: 55 * : 1965 (M/d/yyyy) Gender: Female Height: 62 in * Age: 51 yrs Ethnicity: [place] Weight: 230 lb * Ordering Physician: Fallon Kaur * Referring Physician: Self, Referred * Performed By: Elaine Michelle RCS * * Reason For Study: Sudden SOB * BSA: 2.0 m2 * Compared to prior study, there is no significant change. * -- Conclusions -- * The left ventricle is normal in size. * Left ventricular systolic function is normal. * There is borderline hypokinesis of the basal inferior posterior wall. * Ejection Fraction = 55-60%. * The aortic valve is not well visualized. * No hemodynamically significant valvular aortic stenosis. * There is moderate to severe mitral regurgitation. * The mitral regurgitant jet is eccentrically directed. * Doppler findings do not suggest pulmonary hypertension. Procedure Details * A complete two-dimensional transthoracic echocardiogram was performed (2D, M- mode, Doppler and color flow Doppler). * There were technical limitations due to patient'sbody habitus * A contrast injection of Definity was performed to improve assessment of LV function. * Contrast was injected into an intravenous site in the right arm. * One vial of Definity ultrasound contrast was diluted in normal saline to a total volume of 10 ml. A total of '1' ml of solution was administered during imaging. * Lot # [id number] of Definity utilized for procedure. * Expiration date . * The attending nurse who injected the contrast agent was Stephen Topete RN. Left Ventricle * The left ventricle is normal in size. * There is normal left ventricular wall thickness. * Ejection Fraction = 55-60%. * Left ventricular systolic function is normal. * There is borderline hypokinesis of the basal inferior posterior wall. Right Ventricle * The right ventricle is normal in size and function. Atria * The left atrium is mildly dilated. * Right atrial size is normal. * No ASD detected; PFO is not assessed. Mitral Valve * There is no mitral valve stenosis. * There is moderate to severe mitral regurgitation. * The mitral regurgitant jet is eccentrically directed. Tricuspid Valve * The tricuspid valve is normal. * There is no tricuspid stenosis. * There is trace tricuspid regurgitation. * Doppler findings do not suggest pulmonary hypertension. Aortic Valve * The aortic valve is not well visualized. * No hemodynamically significant valvular aortic stenosis. * No aortic regurgitation is present. Pulmonic Valve * The pulmonic valve is not well visualized. Great Vessels * The aortic root is normal size. Pericardium/Pleural * There is no pericardial effusion. Great Vessels * Normal inferior vena cava diameter and respiratory variation suggests normal central venous pressure. Left Ventricular Diastolic Function Diastolic dysfunction, Grade III (restrictive pattern), consistent with markedly increased left atrial pressure. (Sarahi Garcia ., PA-C) Assessment and Plan 51 y/o female with a history of asthma, DM II, HTN, HLD, chronic diastolic CHF, hypothyroidism, lung nodules, ANA on CPAP, and depression who presents with progressive shortness of breath and dyspnea on exertion. The patient had initially presented with fever of 38.4C, elevated WBC and elevated POC lactic acid over 5. However, repeat lab value lactic acid shortly after was only 1.3. Shortness of breath, secondary to asthma exacerbation vs acute CHF--lungs tight on exam, poor air movement -Continue Solu-Medrol 60 mg IV q12h -DuoNebs QIDR -O2 by protocol. Currently on room air. Sats had dropped w/ambulation in the morning but this afternoon remained at 94% on room air w/ambulation -Flu swabs negative -Repeat CXR with cardiomegaly, no acute disease -CTA negative for PE. Stable lung nodules in LLL and RUL. -Continue Singulair ?Acute on chronic diastolic CHF -Pt had reported recent weight gain, although outpatient records had shown her initial weight here was stable to outp weights -Lasix 40 mg IV x 1 on 09/13. Had UO of 4200 cc, net balance -2602 cc through 09/13 -Give another Lasix 40 mg IV x 1 -Continue home Lasix 20 mg PO qd -Echo shows LVEF of 55-60%. Borderline hypokinesis of basal inferior posterior wall. Moderate to severe mitral regurg ?Sepsis possible viral etiology--resolved. Pt did not truly have elevated lactic acid, no fevers since admission -Leukocytosis resolved, no fevers, VSS -CXR no acute disease -Blood cultures NGTD x2 -No need for antibiotics at this time -D/C IVF. Pt does have h/o grade II diastolic dysfunction per outpt echo ?TWI on EKG--stable -Cable Spooler notified of episode of hypoxia and tachypnea. EKG at that time showed possible lateral TWI. On my review, these appear to be flattened T waves on a low voltage EKG. Pt denies any chest pain -Pt transferred to tele. No acute events, pt in SR with HR in 60s-70s. Transfer to med/surg -Repeat EKG this morning stable, no significant ischemia -Heparin drip had been started. Troponin negative x 2, will d/c heparin -EKG q am and prn chest pain Elevated bilirubin--improving - Total bilirubin 1.5 on 09/13, down from 1.9. Denies abdominal pain, N/V - Consider GI consultation or RUQ u/s if worsening - At this time more likely that this is viral and due to dehydration. HTN, HLD--stable - Continue ASA, lisinopril 5 mg PO qd, Lopressor 25 mg PO qd, Zocor 40 mg PO qd DM II--HgbA1c 9.4 on 09/13 - Pt takes Toujeo 60 units SC BID--given Lantus at 80% dose for first dose, tolerated well, can resume at full home dose - Lantus 60 units SC BID - Insulin sliding scale - Check BSGs q ac and qhs - Continue gabapentin 400 mg PO TID for neuropathy Hypothyroidism - Continue Levoxyl 1400 mcg PO qd. High dose confirmed in outpt endocrinology notes ANA -Continue CPAP Depression -Continue Effexor 150 mg PO qd DVT prophylaxis -Enoxaparin 40 mg SC q24h -DEBBI brooks and SCDs Code Status -Level I, FULL RESUSCITATION STATUS Dispo -From home -PT/OT evaluate and treat: recommend home PT (Sarahi Garcia ., PA-C) PA Physician Supervision Note: I interviewed and examined the patient. Discussed with Sarahi Garcia PAC and agree with findings and plan as documented in the note. Any exceptions or clarifications are listed here: None Patient presented with hypoxemia felt to be a combination of asthma and acute on chronic diastolic heart failure she has improved with no further wheezing and occasional need for oxygen supplementation Vital signs are reviewed she was hypoxic with ambulation but after an afternoon of incentive spirometry she has improved not needing oxygen with ambulation her cardiac exam is regular her lungs have decreased breath sounds at the bases otherwise are clear asthma exacerbation plus acute diastolic HF Solu-Medrol tapering dosing -DuoNebs QIDR -O2 by protocol. Currently on room air. -CTA negative for PE. Stable lung nodules in LLL and RUL.__> will have follow in lung nodule clinic -Continue Singulair Acute on chronic diastolic CHF improved with-Lasix IV , now resumed home Lasix 20 mg PO qd -Echo shows LVEF of 55-60%. Moderate to severe mitral regurg sepsis ruled out, flu negative T Wave invesion, transiently onHeparin drip h Troponin negative x 2, thus d/c heparin Elevated bilirubin--improving, no clinical issues, will recommend follow up HTN, HLD-- ASA, lisinopril 5 mg PO qd, Lopressor 25 mg PO qd, Zocor 40 mg PO qd diabetes typically takes tojeo, will use lantus at 80% dosing and ssi gabapentin 400 mg PO TID for neuropathy Hypothyroidism Levoxyl 1400 mcg PO qd. High dose confirmed in outpt endocrinology notes ANA CPAP Depression Effexor 150 mg PO qd DVT prophylaxis -Enoxaparin 40 mg SC q24h Code Status -Level I, FULL RESUSCITATION STATUS -PT/OT evaluate and treat: recommend home PT Documented By: Faizan Mckeon (Faizan Mckeon M.D.)
[2017-09-14] MEDS: MONTELUKAST SOD 10 MG TAB PO SCH (20:30)
[2017-09-14] MEDS: SIMVASTATIN 40 MG TAB PO SCH (20:31)
[2017-09-14] MEDS: ENOXAPARIN 40 MG/0.4 ML SYR SQ SCH (22:05)
[2017-09-15] VITALS: O2SAT 90
[2017-09-15] MEDS ORDERED: METHYLPREDNISOLONE IV 40 MG in SYRINGE 0 ML IV SCH
[2017-09-15 00:02] VITALS: BP 123/79; PULSE 78; TEMP 36.7; O2SAT 95
[2017-09-15 07:16] VITALS: PULSE 62; O2SAT 92
[2017-09-15] MEDS: ALBUT/IPRATROP 3MG/0.5MG NEB 3 ML VIAL INH SCH ×2 (07:16→11:07)
[2017-09-15 07:23] VITALS: BP 108/59; PULSE 62; TEMP 36.6; O2SAT 92
[2017-09-15] MEDS ORDERED: PRED10TA PO ×2 (07:43→09:57)
[2017-09-15] MEDS ORDERED: IPRA1AER2 INH ×2 (07:43→09:57)
[2017-09-15 08:09] LABS: BASO % 0.1 %; BASO ABS # 0.01 K/uL (0-0.2); COMPLETE YES; HEMATOCRIT 42.7 % (37-47); IG% 0.2 %; LYMPH % 11.5 %; LYMPH ABS # 1.52 K/uL (1.2-3.4); MEAN CELL VOLUME 83.1 fL (80-100); MEAN CORPUSCULAR HEMOGLOBIN 27.8 pg (25-34); MEAN CORPUSCULAR HGB CONC 33.5 g/dl (32-36); MONO % 3.1 %; NEUT % 85.1 %; PLATELET COUNT 259 K/uL (130-400); RED BLOOD COUNT 5.14 M/uL (4.2-5.4); WHITE BLOOD COUNT 13.21 K/uL (4.8-10.8)
[2017-09-15] MEDS ORDERED: NURSING DECISION MEDICATION ORDER SCH (08:15)
[2017-09-15] MEDS: FUROSEMIDE 20 MG TAB PO SCH (08:19)
[2017-09-15] MEDS: LEVOTHYROXINE 200 MCG TAB PO SCH (08:20)
[2017-09-15] MEDS: GABAPENTIN 400 MG CAP PO SCH (08:20)
[2017-09-15] MEDS: METOPROLOL TARTRATE 25 MG TAB PO SCH (08:21)
[2017-09-15] MEDS: LORATADINE 10 MG TAB PO SCH (08:21)
[2017-09-15] MEDS: VENLAFAXINE HCL XR 150 MG CAPXR PO SCH (08:22)
[2017-09-15] MEDS: ASPIRIN 81 MG ECTAB PO SCH (08:22)
[2017-09-15] MEDS: IPRATROPIUM BROMIDE/ALBUTEROL respimat INH INH SCH ×2 (08:25→11:25)
[2017-09-15] MEDS: LISINOPRIL 5 MG TAB PO SCH (08:27)
[2017-09-15 08:41] LABS: BUN/CREATININE RATIO 26.1 (10-20); CALCIUM 9.6 mg/dl (8.5-10.1); CREATININE 0.9 mg/dl (0.60-1.20); POTASSIUM 3.8 mmol/L (3.5-5.1)
[2017-09-15] MEDS ORDERED: MICONAZOLE NITRATE POWDER 43 GM EXT PRN (08:45)
[2017-09-15] MEDS: INSULIN ASPART 100 UNITS/ML 3 ML PEN SC SCH (09:24)
[2017-09-15] MEDS: INSULIN GLARGINE SOLOSTAR 100 UNITS/ML 3 ML PEN SC SCH (09:25)
[2017-09-15] MEDS ORDERED: SYMIN/8045 INH (09:57)
--- NOTE | 2017-09-15 09:59 | Discharge Instructions ---
Discharge Instructions Date of Service Sep 15, 2017. Admission Reason for Admission: Lactic Acidosis Discharge Discharge Diagnosis / Problem: asthma flare, mild heart failure Discharge Goals Goal(s): Diagnostic testing, Therapeutic intervention Activity Recommendations Activity Limitations: as noted below Lifting Limitations: gradually increase as tolerated you are still recovering, please limit activity and also exposure to cold air, take you prescriptions until finished or instructed to change by your outpatient doctor please make a follow up appointment with pulmonary medicine at [facility] . Current Hospital Diet Patient's current hospital diet: Diabetes Type 2 Diet, AHA Diet (Heart Healthy) Discharge Diet Recommended Diet: Low Sodium Diet (2gm Na) Pending Studies Studies pending at discharge: no Laboratory Results Hemoglobin A1c Test 09/13/17 06:51 Range/Units Estimated Average Glucose 223 mg/dl Hemoglobin A1c 9.4 H 4.5-5.6 % Lipid Panel Test 09/13/17 06:51 Range/Units Triglycerides Level 63 0-150 mg/dl Cholesterol Level 85 0-200 mg/dl HDL Cholesterol 30 mg/dl Cholesterol/HDL Ratio 2.8 LDL Cholesterol, Calculated 42 mg/dl Medical Emergencies . Who to Call and When: Medical Emergencies: If at any time you feel your situation is an emergency, please call 911 immediately. . Non-Emergent Contact Non-Emergency issues call your: Primary Care Provider, Complaint Manager Call Non-Emergent contact if: temperature is above 101, your pain is unusual for you . . "Provider Documentation" section prepared by Faizan Mckeon. . VTE Core Measure Inpt VTE Proph given/why not?: Deborah Garcia, BURAK's
[2017-09-15] MEDS ORDERED: FLUTICASONE/SALMETEROL 250/50 (ADVAIR) 14 PUFF/1 INHALER INH SCH (10:00)
--- NOTE | 2017-09-15 10:01 | Discharge Instructions ---
Discharge Instructions Date of Service Sep 15, 2017. Admission Reason for Admission: Lactic Acidosis Discharge Discharge Diagnosis / Problem: mild heart failure Discharge Goals Goal(s): Diagnostic testing, Therapeutic intervention Activity Recommendations Activity Limitations: as noted below Lifting Limitations: gradually increase as tolerated . Instructions / Follow-Up Instructions / Follow-Up Call your Primary Care doctor if any of the following symptoms or problems start or get worse: * Shortness of breath or difficulty breathing * Wake up at night short of breath * Chest pain * Cough * Swelling of your hands, feet, or legs * More fatigued or tired with your normal activity * Palpitations - sudden fast heart beats WEIGHT * Weigh yourself every morning after using the bathroom. * Use the same scale. * Wear the same amount of clothing. * Write your weight down on a chart. * Call your Primary Care doctor if you gain more than 2-3 pounds in 1-2 days. MEDICATIONS * Use this discharge instruction sheet for medication instructions. * Take your medications at the time your doctor ordered. * Do not skip a dose of your medicines. * If you miss a dose of medicine, take it as soon as possible, but DO NOT DOUBLE A DOSE. * Read your medicine information when you get home. * Know all of the side effects of your medicine. If in doubt, ask your pharmacist * Call your Primary Care doctor's office if you have any side effects. * Be sure all of your doctors know what medicine and herbs you take (including cold, flu, and herbal medicine). Take the following with you to your follow-up doctor appointments: * Weight Chart * Medication List * List of questions Do not drink excessive alcohol, beer or wine. Current Hospital Diet Patient's current hospital diet: Diabetes Type 2 Diet, AHA Diet (Heart Healthy) Discharge Diet Recommended Diet: Low Sodium Diet (2gm Na) Pending Studies Studies pending at discharge: no Laboratory Results Hemoglobin A1c Test 09/13/17 06:51 Range/Units Estimated Average Glucose 223 mg/dl Hemoglobin A1c 9.4 H 4.5-5.6 % Lipid Panel Test 09/13/17 06:51 Range/Units Triglycerides Level 63 0-150 mg/dl Cholesterol Level 85 0-200 mg/dl HDL Cholesterol 30 mg/dl Cholesterol/HDL Ratio 2.8 LDL Cholesterol, Calculated 42 mg/dl Medical Emergencies . Who to Call and When: Call 911 or go to the Emergency Room if: * If at any time you feel your situation is an emergency * You have tightness or pain in your chest that does not go away with rest or Nitroglycerin * You are very short of breath even with rest . Non-Emergent Contact Non-Emergency issues call your: Primary Care Provider, Solar Design Engineer Call Non-Emergent contact if: temperature is above 101, your pain is unusual for you . . "Provider Documentation" section prepared by Faizan Mckeon. . VTE Core Measure Inpt VTE Proph given/why not?: Deborah Garcia, BURAK's
[2017-09-15 10:52] VITALS: BP 108/59; PULSE 62; TEMP 36.6; O2SAT 92
[2017-09-15 11:04] VITALS: PULSE 70; O2SAT 93
--- NOTE | 2017-09-15 16:16 | Discharge Summary ---
Discharge Summary Date of Service Sep 15, 2017. Discharge Summary Admission Date: Sep 12, 2017 at 18:37 Discharge Date: Sep 15, 2017 Discharge Disposition: Home Principal Diagnosis: asthma exacerbation, acute diastolic heart failure Immunizations: Have You Had Influenza Vaccine: N/A Influenza Vaccine Date: Jun 19, 2011 History of Tetanus Vaccine?: Yes History of Pneumococcal: Yes Pneumococcal Date: February 23, 2011 History of Hepatitis B Vaccine: Yes Medication Reconciliation New Medications: Budesonide/Formoterol Fumarate (Symbicort 80/4.5 Inhaler) 120 Puffs/ Aero 2 PUFFS INH BID, #10.2 GM 5 Refills Ipratropium-Albuterol (Combivent Respimat) 1 Aer Aer 1 PUFFS INH QID, #1 INH . Prednisone Tab (Prednisone) 10 Mg Tab 10 MG PO UD, #42 TAB 4 a day x 4 days then 3 a day x 4 days then 2 a day x 4 days then 1 a day. Continued Medications: Albuterol Hfa (Ventolin Hfa) 200 Puffs/52688 Mcg Aers 2-4 PUFFS INH Q6H PRN for ASTHMA, #1 INHALER Aspirin (Aspirin Ec) 81 Mg Tab 81 MG PO QAM Furosemide (Lasix) 20 Mg Tab 20 MG PO DAILY, TAB Gabapentin (Neurontin) 400 Mg Cap 400 MG PO TID Home O2 Therapy (Oxygen) Gas 2 LITERS NA HS CPAP Insulin Aspart (Novolog Flexpen) 100 Units/Ml Inj 20 UNITS SC TIDM Insulin Aspart (Novolog) 100 Units/Ml Inj UNITS SQ TIDM SLIDING SCALE Insulin Glargine (Toujeo Solostar) 300 Unit/Ml Inj 60 UNITS SQ AMPM Levothyroxine Sodium (Levothyroxine Sodium) 200 Mcg Tab 1400 MCG PO QAM TAKE SEVEN 200MCG TABS DAILY Lisinopril (Lisinopril) 5 Mg Tab 5 MG PO QAM Loratadine (Claritin) 10 Mg Cap 10 MG PO QAM Meclizine Hcl (Meclizine Hcl) 25 Mg Tab 25 MG PO TID PRN for Dizziness or Vertigo Metoprolol Tartrate (Lopressor) 25 Mg Tab 25 MG PO DAILY, TAB Montelukast Sod (Montelukast Sodium) 10 Mg Tab 10 MG PO HS Mupirocin 2% (Bactroban 2%) 30 Gm Cr 1 APPLN EXT BID, TUBE Nitroglycerin (Nitrostat) 0.4 Mg Tab 0.4 MG UT UD PRN for Chest Pain Ondansetron Hcl (Zofran) 8 Mg Tab 8 MG PO Q6 PRN for Nausea, TAB Potassium Chloride (Micro-K Ext Rel) 10 Meq Capcr 10 MEQ PO DAILY, CAP Simvastatin (Zocor) 40 Mg Tab 40 MG PO QPM, TAB Venlafaxine Hcl (Effexor Extended Rel) 150 Mg Capcr 150 MG PO QAM Discharge Exam Review of Systems: Constitutional: + weakness, + fatigue, No fever, No chills Respiratory: No cough, No sputum, No shortness of breath, No dyspnea on exertion Cardiovascular: No chest pain, No orthopnea, No PND Abdomen: No pain, No nausea, No vomiting Physical Exam: General Appearance: WD/WN, no apparent distress Eyes: normal inspection, sclerae normal Neck: supple, no JVD Respiratory/Chest: no respiratory distress, no accessory muscle use, + decreased breath sounds (bases) Cardiovascular: regular rate, rhythm, + systolic murmur Abdomen / GI: normal bowel sounds, non tender, soft Extremities: no pedal edema, normal range of motion Neurologic/Psychiatric: alert, oriented x 3 Skin: normal color, warm/dry, no rash Hospital Course asthma exacerbation plus acute diastolic HF prednisone tapering dosing -combivent in place of albuterol and started on Symbicort saturations are good. Currently on room air. will resume hs oxygen at home -CTA negative for PE. Stable lung nodules in LLL and RUL.__> will have follow in lung nodule clinic -Continue Singulair Acute on chronic diastolic CHF improved with-Lasix IV , now resumed home Lasix 20 mg PO qd -Echo shows LVEF of 55-60%. Moderate to severe mitral regurg, home with CHF instructions sepsis ruled out, flu negative T Wave inversion, transiently on Heparin drip h Troponin negative x 2, thus d/c heparin, have ruled out ACS Elevated bilirubin--improving, no clinical issues, will recommend follow up with PCP HTN, HLD-- ASA, lisinopril 5 mg PO qd, Lopressor 25 mg PO qd, Zocor 40 mg PO qd diabetes typically takes tojeo, will use lantus at 80% dosing and ssi gabapentin 400 mg PO TID for neuropathy Hypothyroidism Levoxyl 1400 mcg PO qd. High dose confirmed in outpt endocrinology notes ANA CPAP Depression Effexor 150 mg PO qd Code Status -Level I, FULL RESUSCITATION STATUS Total Time Spent: Greater than 30 minutes This includes examination of the patient, discharge planning, medication reconciliation, and communication with other providers. Discharge Instructions Please refer to the electronic Patient Visit Report (Discharge Instructions) for additional information. Additional Copies To Iker Sanches PA-C
== END 2017-09-15 11:50 | disposition home or self-care (01) | DRG 292 ==
LOC: EDBD 15:23 → C.EDB 15:24 → UNDOADMIN 18:37 → C.MS2W 18:37 → ENRESERV 19:00 → C.MS2W 09-13 03:26 → C.2E 09-13 03:26 → ENRESERV 09-14 15:18 → CANRESERV 09-14 15:18 → ENRESERV 09-14 15:23 → C.MS4W 09-14 15:56 → C.2E 09-14 15:56
PROVIDERS: ADMIT Family Medicine; ATTEND Internal Medicine
DX: I11.0 Hypertensive heart disease with heart failure (principal); J45.901 Unspecified asthma with (acute) exacerbation; R17 Unspecified jaundice; Z68.41 Body mass index [BMI] 40.0-44.9, adult; I50.33 Acute on chronic diastolic (congestive) heart failure; B97.89 Other viral agents as the cause of diseases classified elsewhere; R91.8 Other nonspecific abnormal finding of lung field; R11.2 Nausea with vomiting, unspecified; R94.31 Abnormal electrocardiogram [ECG] [EKG]; R06.82 Tachypnea, not elsewhere classified; E78.5 Hyperlipidemia, unspecified; E11.42 Type 2 diabetes mellitus with diabetic polyneuropathy; E03.9 Hypothyroidism, unspecified; G47.33 Obstructive sleep apnea (adult) (pediatric); F32.9 Major depressive disorder, single episode, unspecified; E66.01 Morbid (severe) obesity due to excess calories; I34.0 Nonrheumatic mitral (valve) insufficiency; Z91.411 Personal history of adult psychological abuse; Z86.14 Personal history of Methicillin resistant Staphylococcus aureus infection; Z79.4 Long term (current) use of insulin; Z79.82 Long term (current) use of aspirin; Z79.899 Other long term (current) drug therapy; Z88.1 Allergy status to other antibiotic agents; Z88.2 Allergy status to sulfonamides; Z82.49 Family history of ischemic heart disease and other diseases of the circulatory system; Z83.3 Family history of diabetes mellitus; Z83.6 Family history of other diseases of the respiratory system; Z82.0 Family history of epilepsy and other diseases of the nervous system

== ENCOUNTER → 2017-09-18 | Outpatient (CLI) | payer OTHER ==
[~2017-09-18] MED LIST changes: -ACET-1256 PO; +APIX1TAB3 PO; +BCTCR/30 EXT; +CEPH500C PO; -CETI10TA84 PO; +CHOL4POW4 PO; +CHOLPOW; +CIPR1TAB11 PO; +FAMO1TAB47 PO; +FAMO20TA11 PO; +FLUC100T4 PO; -FLUT1INH INH; +FLUT1INH7 INH; +FURO-85 PO; -IBUP-1050 PO; +INSDGIPEN SC; +INSU1.2I; +IPRA1AER2 INH; +LACT10SO17 OR; +LCTX PO; +LEVO1TAB35 PO; +LPR25 PO; +LVNIS40 SQ; +LVQ250 OR; +METO-217 PO; -METO50TA7 PO; +METR-163 PO; +MGNO400 PO; +NVLG SQ; +ONDA8TAB6 PO; +OXGN; +OXYC-57 PO; +POTA10CA28 PO; +PRED10TA PO; +RXC5 PO; +SALI0.6510; +SIMV40TA2 PO; +SYMIN/8045 INH; +TPRSR50 PO; +saline nasal spray
== END | disposition home or self-care (01) ==
LOC: C.LABPVFM 10:45
PROVIDERS: ATTEND Family Medicine
DX: K13.0 Diseases of lips (principal)

== ENCOUNTER 2017-09-29 00:07 | Emergency (ER) | payer OTHER ==
[~2017-09-29] VITALS: Ht 152.4 cm; Wt 97.3 kg
[~2017-09-29 00:07] MED LIST changes: -APIX1TAB3 PO; -ATOR-22 PO; -CEPH500C PO; -CHOL4POW4 PO; -CHOLPOW; -CIPR1TAB11 PO; -FAMO1TAB47 PO; -FAMO20TA11 PO; -FLUC100T4 PO; -FLUT1INH7 INH; -INSDGIPEN SC; -INSU1.2I; -LACT10SO17 OR; -LCTX PO; -LEVO1TAB35 PO; +LISI-730 PO; -LSN5 PO; -LVNIS40 SQ; -LVQ250 OR; -MAGN400T6 PO; -METO-217 PO; -METR-163 PO; -MGNO400 PO; +ONDA-170 PO; -ONDA8TAB6 PO; -OXGN; -OXYC-57 PO; -PRED10TA PO; -RXC5 PO; -SALI0.6510; -TPRSR50 PO; -saline nasal spray
[2017-09-29 00:15] VITALS: TEMP 36.8; Ht 152.4 cm; Wt 97.3 kg
[2017-09-29] MEDS ORDERED: MoRPHine SULFATE 4 MG/ML 1 ML CARP\\VIAL IV STA (00:28)
[2017-09-29] MEDS ORDERED: ONDANSETRON INJ 2 MG/ML 2 ML VIAL IV STA (00:28)
[2017-09-29] MEDS ORDERED: SODIUM CHLORIDE 0.9% 1000ML 1,000 ML IV STA (00:28)
[2017-09-29 01:21] LABS: BASO % 0.1 %; BASO ABS # 0.01 K/uL (0-0.2); EOS % 0.8 %; HEMATOCRIT 42.1 % (37-47); HEMOGLOBIN 14.4 g/dL (12.0-16.0); IG# 0.04 K/uL (0.00-0.02); LYMPH % 15.6 %; LYMPH ABS # 2.02 K/uL (1.2-3.4); MEAN CELL VOLUME 80.7 fL (80-100); MEAN CORPUSCULAR HEMOGLOBIN 27.6 pg (25-34); MEAN CORPUSCULAR HGB CONC 34.2 g/dl (32-36); MEAN PLATELET VOLUME 10.1 fL (7.4-10.4); MONO ABS # 0.78 K/uL (0.11-0.59); NEUT % 77.2 %; NEUT ABS # 10.04 K/uL (1.4-6.5); PLATELET COUNT 265 K/uL (130-400); RED CELL DISTRIBUTION WIDTH CV 13.2 % (11.5-14.5); RED CELL DISTRIBUTION WIDTH SD 39.1 fL (36.4-46.3); WHITE BLOOD COUNT 12.99 K/uL (4.8-10.8)
[2017-09-29 01:34] LABS: PTT PATIENT 23.6 SECONDS (21.0-31.0)
[2017-09-29 02:00] LABS: ALBUMIN 2.9 gm/dl (3.4-5.0); CALCIUM 9.1 mg/dl (8.5-10.1); CREATININE 0.96 mg/dl (0.60-1.20); POTASSIUM 3.8 mmol/L (3.5-5.1); TOTAL PROTEIN 7.1 gm/dl (6.4-8.2)
[2017-09-29] MEDS ORDERED: INSULIN HUMAN REGULAR SC STA (02:22)
[2017-09-29] MEDS ORDERED: NovoLIN-R INSULIN PER UNIT CHARGE ONE (02:31)
[2017-09-29 02:40] VITALS: PULSE 86; O2SAT 98
[2017-09-29] MEDS ORDERED: CEFTRIAXONE SOD INJ 1 GM ADDVIAL IV STA (03:07)
[2017-09-29] MEDS ORDERED: NovoLIN-R INSULIN PER UNIT CHARGE SC STA (03:28)
[2017-09-29] MEDS ORDERED: CEPH500C PO ×2 (03:36→04:16)
[2017-09-29] MEDS ORDERED: CHOL4POW4 PO ×2 (03:36→04:16)
--- NOTE | 2017-09-29 03:42 | EMERGENCY ROOM VISIT NOTE ---
History Report prepared by Aakash: Evans Rothman Under the Supervision of: Dr. Suzy Butterfield M.D. First contact with patient: 00:20 Chief Complaint: ABDOMINAL PAIN Stated Complaint: LOWER ABD PAIN,BACK PAIN,COLON CANCER PT History of Present Illness The patient is a 51 year old female who presents to the Emergency Room with complaints of constant lower abdominal pain beginning one hour ago. She also complains of low back pain, nausea, and vomiting. She began vomiting one hour ago, but has not noticed blood in her vomit. The patient has a history colon cancer and is scheduled for surgery in about three weeks. She states that she has been noticing some blood on her toilet paper with wiping following defecation recently. The patient denies any fevers. Source of History: patient Onset: One hour ago Position: abdomen (lower) Timing: constant Associated Symptoms: + nausea, + vomiting, + back pain (low), No fevers Note: The patient denies any blood in her vomit. Review of Systems See HPI for pertinent positives & negatives. A total of 10 systems reviewed and were otherwise negative. Past Medical & Surgical Medical Problems: (1) Asthma (2) Diabetes mellitus type 2 in obese (3) Dyslipidemia (4) GERD (gastroesophageal reflux disease) (5) Hepatitis (6) HTN (hypertension) (7) Hypothyroidism (8) Lactic acidosis (9) Leaky heart valve (10) Mitral regurgitation (11) Morbid obesity with BMI of 40.0-44.9, adult (12) MRSA (methicillin resistant Staphylococcus aureus) (13) ANA (obstructive sleep apnea) (14) Panniculitis (15) Patella fracture (16) Post-op pain Surgical Problems: (1) History of carpal tunnel surgery (2) History of hysterectomy (3) History of tonsillectomy and adenoidectomy (4) History of tubal ligation (5) Hx of total knee arthroplasty Family History Diabetes mellitus FH: heart disease FH: lung disease Hypertension Seizures Social History Smoking Status: Never Smoker Alcohol Use: none Drug Use: none Marital Status: Housing Status: lives with significant other Occupation Status: disabled Current/Historical Medications Scheduled Aspirin (Aspirin Ec), 81 MG PO QAM Budesonide/Formoterol Fumarate (Symbicort 80/4.5 Inhaler), 2 PUFFS INH BID Cephalexin Monohydrate (Keflex), 500 MG PO TID Cholestyramine (Cholestyramine), 1 PKT PO BID Furosemide (Lasix), 20 MG PO QAM Gabapentin (Neurontin), 400 MG PO TID Insulin Aspart (Novolog Flexpen), 20 UNITS SC TIDM Insulin Aspart (Novolog), UNITS SQ TIDM Insulin Glargine (Toujeo Solostar), 60 UNITS SQ AMPM Ipratropium-Albuterol (Combivent Respimat), 1 PUFFS INH QID Levothyroxine Sodium (Levothyroxine Sodium), 1,400 MCG PO QAM Lisinopril (Lisinopril), 5 MG PO QAM Loratadine (Claritin), 10 MG PO QAM Metoprolol Tartrate (Lopressor), 25 MG PO QAM Montelukast Sod (Montelukast Sodium), 10 MG PO HS Potassium Chloride (Micro-K Ext Rel), 10 MEQ PO QAM Simvastatin (Zocor), 40 MG PO QPM Venlafaxine Hcl (Effexor Extended Rel), 150 MG PO QAM Scheduled PRN Albuterol Hfa (Ventolin Hfa), 2-4 PUFFS INH Q6H PRN for ASTHMA Meclizine Hcl (Meclizine Hcl), 25 MG PO TID PRN for Dizziness or Vertigo Mupirocin 2% (Bactroban 2%), 1 APPLN EXT BID PRN for PRN Nitroglycerin (Nitrostat), 0.4 MG UT UD PRN for Chest Pain Ondansetron Hcl (Zofran), 8 MG PO Q6 PRN for Nausea Allergies Coded Allergies: Daptomycin (Verified Allergy, Severe, SHORTNESS OF BREATH, 09/29/17) 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 Clindamycin (Verified Allergy, Intermediate, HIVES, 09/29/17) Sulfa Antibiotics (Verified Allergy, Intermediate, BACTRIM-HIVES, 09/29/17 ) BEE STING (Verified Allergy, Unknown, HIVES, 09/29/17) Trimethoprim (Verified Allergy, Unknown, HIVES, 09/29/17) Dulaglutide (Verified Adverse Reaction, Severe, BRAND-TRULICITY, SEVERE GI UPSET, CONSTIPATION, 09/29/17) Physical Exam Vital Signs Date Time Temp Pulse Resp B/P (MAP) Pulse Ox O2 Delivery O2 Flow Rate FiO2 09/29/17 04:20 140/82 09/29/17 02:40 86 18 138/76 98 Room Air 09/29/17 00:15 36.8 82 18 128/71 95 Room Air Physical Exam Vital signs reviewed. General: Chronically ill-appearing female, in no significant distress. HEENT: No scleral icterus, PERRLA, neck supple. Atraumatic. Two scabbed lesions to the upper lip. Cardiovascular: Regular rate and rhythm, no extra sounds. Pulmonary: Clear to auscultation bilaterally, normal work of breathing. Abdomen: Morbidly obese abdomen. Diffuse tenderness to palpation. No rebound or guarding. No tympany to percussion. Musculoskeletal: Atraumatic, no peripheral edema. Neurologic: Patient awake alert and oriented x 3 Skin: Warm, dry, no rash Medical Decision & Procedures ER Provider Diagnostic Interpretation: Two View Abdominal X-ray interpreted by me: negative for free air or obstruction. Prominent bowel loop in LUQ of uncertain etiology. No focal lung consolidation. No failure. Laboratory Results 09/29/17 01:04 Red Blood Count 5.22, Mean Corpuscular Volume 80.7, Mean Corpuscular Hemoglobin 27.6, Mean Corpuscular Hemoglobin Concent 34.2, Mean Platelet Volume 10.1, Neutrophils (%) (Auto) 77.2, Lymphocytes (%) (Auto) 15.6, Monocytes (%) (Auto) 6.0, Eosinophils (%) (Auto) 0.8, Basophils (%) (Auto) 0.1, Neutrophils # (Auto) 10.04, Lymphocytes # (Auto) 2.02, Monocytes # (Auto) 0.78, Eosinophils # (Auto) 0.10, Basophils # (Auto) 0.01 09/29/17 01:04 Test 09/29/17 01:04 09/29/17 02:36 09/29/17 03:27 White Blood Count 12.99 K/uL (4.8-10.8) Red Blood Count 5.22 M/uL (4.2-5.4) Hemoglobin 14.4 g/dL (12.0-16.0) Hematocrit 42.1 % (37-47) Mean Corpuscular Volume 80.7 fL (80-100) Mean Corpuscular Hemoglobin 27.6 pg (25-34) Mean Corpuscular Hemoglobin Concent 34.2 g/dl (32-36) Platelet Count 265 K/uL (130-400) Mean Platelet Volume 10.1 fL (7.4-10.4) Neutrophils (%) (Auto) 77.2 % Lymphocytes (%) (Auto) 15.6 % Monocytes (%) (Auto) 6.0 % Eosinophils (%) (Auto) 0.8 % Basophils (%) (Auto) 0.1 % Neutrophils # (Auto) 10.04 K/uL (1.4-6.5) Lymphocytes # (Auto) 2.02 K/uL (1.2-3.4) Monocytes # (Auto) 0.78 K/uL (0.11-0.59) Eosinophils # (Auto) 0.10 K/uL (0-0.5) Basophils # (Auto) 0.01 K/uL (0-0.2) RDW Standard Deviation 39.1 fL (36.4-46.3) RDW Coefficient of Variation 13.2 % (11.5-14.5) Immature Granulocyte % (Auto) 0.3 % Immature Granulocyte # (Auto) 0.04 K/uL (0.00-0.02) Prothrombin Time 10.2 SECONDS (9.0-12.0) Prothromb Time International Ratio 1.0 (0.9-1.1) Activated Partial Thromboplast Time 23.6 SECONDS (21.0-31.0) Partial Thromboplastin Ratio 0.9 Anion Gap 7.0 mmol/L (3-11) Est Creatinine Clear Calc Drug Dose 70.8 ml/min Estimated GFR () 78.3 Estimated GFR (Non- 67.5 BUN/Creatinine Ratio 25.7 (10-20) Calcium Level 9.1 mg/dl (8.5-10.1) Total Bilirubin 0.7 mg/dl (0.2-1) Direct Bilirubin 0.1 mg/dl (0-0.2) Aspartate Amino Transf (AST/SGOT) 15 U/L (15-37) Alanine Aminotransferase (ALT/SGPT) 24 U/L (12-78) Alkaline Phosphatase 97 U/L (45-117) Total Protein 7.1 gm/dl (6.4-8.2) Albumin 2.9 gm/dl (3.4-5.0) Lipase 101 U/L (73-393) Beta-Hydroxybutyric Acid 5.96 mg/dL (0.2-2.81) Urine Color YELLOW Urine Appearance CLOUDY (CLEAR) Urine pH 5.0 (4.5-7.5) Urine Specific Lorenzo 1.022 (1.000-1.030) Urine Protein NEG (NEG) Urine Glucose (UA) 3+ (NEG) Urine Ketones TRACE (NEG) Urine Occult Blood TRACE (NEG) Urine Nitrite NEG (NEG) Urine Bilirubin NEG (NEG) Urine Urobilinogen NEG (NEG) Urine Leukocyte Esterase MODERATE (NEG) Urine WBC (Auto) >30 /hpf (0-5) Urine RBC (Auto) 0-4 /hpf (0-4) Urine Hyaline Casts (Auto) 1-5 /lpf (0-5) Urine Epithelial Cells (Auto) >30 /lpf (0-5) Urine Bacteria (Auto) 2+ (NEG) Bedside Glucose 361 mg/dl (70-90) Laboratory results per my review. Medications Administered Medications (Trade) Dose Ordered Sig/Viviana Route Start Time Stop Time Status Last Admin Dose Admin Sodium Chloride 1,000 ml @ 999 mls/hr Q1H1M STAT IV 09/29/17 00:28 09/29/17 01:28 DC 09/29/17 00:28 999 MLS/HR Ondansetron HCl (Zofran Inj) 4 mg NOW STAT IV 09/29/17 00:28 09/29/17 00:30 DC 09/29/17 01:20 4 MG Morphine Sulfate (MoRPHine SULFATE INJ) 4 mg NOW STAT IV 09/29/17 00:28 09/29/17 00:31 DC 09/29/17 01:20 4 MG Insulin Human Regular (novoLIN-R) 10 units NOW STAT SC 09/29/17 02:22 09/29/17 02:25 DC 09/29/17 02:22 10 UNITS Ceftriaxone Sodium (Rocephin Inj) 1 gm NOW STAT IV 09/29/17 03:07 09/29/17 03:11 DC 09/29/17 03:07 1 GM Insulin Human Regular (novoLIN-R U-100 PER UNIT) 10 units NOW STAT SC 09/29/17 03:28 09/29/17 03:29 DC 09/29/17 03:28 10 UNITS ECG Indication: abdominal pain Rate (beats per minute): 84 Rhythm: normal sinus Findings: nonspecific-ST abn (diffuse), no acute ischemic change, other ( Premature supraventricular complexes, low voltage. ) ED Course 0027: Past medical records reviewed. The patient was evaluated in room A9B. A complete history and physical examination was performed. 0028: Ordered Morphine Sulfate 4 mg IV, Zofran Inj 4 mg IV, Sodium Chloride 1000 ml @ 999 mls/hr IV. 0222: Ordered Novolin-R 10 units SC. 0307: Ordered Rocephin Inj 1 gm IV. 0325: Upon reevaluation, the patient appeared to have improvement of her symptoms. I discussed findings with her. She verbalized agreement of the treatment plan. The patient was discharged home. 0328: Ordered Novolin-R U-100 per unit 10 units SC. Medical Decision Differential diagnosis: Etiologies such as appendicitis, diverticulitis, PUD, biliary pathology, UTI, pancreatitis, obstruction, mesenteric ischemia, aortic pathology, infections, inflammatory bowel disease, renal colic, as well as others were entertained. This patient was evaluated and appeared to be in some discomfort. IV access was obtained and laboratory work was drawn. The patient complains of nausea and vomiting prior to arrival. She was given IV hydration, IV morphine and Zofran. Abdominal x-ray series reveals a dilated loop of bowel in the left upper quadrant however there are no other significant signs of obstruction or free air. The patient's abdomen is soft, she is had no further vomiting and is passing flatus. The patient is concerned because since her "colonoscopy" she thinks that she has had an increase in flatus. She was given a prescription for Colestyramine for the soft stools and flatus. Patient is found have a UTI and was given 1 g of IV ceftriaxone. Patient was discharged with a prescription for Keflex 500 mg 3 times a day for 7 days. She did require subcutaneous regular insulin 10 units 2 doses for a persistent hyperglycemia. Patient states she was placed on steroids recently. The patient was discharged and asked to follow-up with her PCP this week for reevaluation and to return to the ER for worsening of symptoms or any medical concerns. Medication Reconcilliation Current Medication List: was personally reviewed by me Blood Pressure Screening Patient's blood pressure: Normal blood pressure Blood pressure disposition: Did not require urgent referral Impression Primary Impression: Urinary tract infection Additional Impressions: Hyperglycemia Abdominal pain Scribe Attestation The scribe's documentation has been prepared under my direction and personally reviewed by me in its entirety. I confirm that the note above accurately reflects all work, treatment, procedures, and medical decision making performed by me. Departure Information Dispostion Home / Self-Care Prescriptions Cephalexin Monohydrate (Keflex) 500 Mg Cap 500 MG PO TID for 7 Days, #21 CAP Prov: Suzy Butterfield M.D. 09/29/17 Cholestyramine (CHOLESTYRAMINE) 4 Gm Pow 1 PKT PO BID for 14 Days, #28 PKT Prov: Suzy Butterfield M.D. 09/29/17 Referrals Madison Vivar M.D. (PCP) Forms Call Back Authorization, HOME CARE DOCUMENTATION FORM, IMPORTANT VISIT INFORMATION Patient Instructions My [facility] Additional Instructions Keflex 500 mg 3 times daily for 7 days. Colestyramine 4 g twice a day for diarrhea. Please drink plenty of clear fluids. Follow-up with your physician this week for reevaluation. Return to the ER for worsening of symptoms or any medical concerns. Problem Qualifiers
[2017-09-29 04:20] VITALS: BP 140/82
--- NOTE | 2017-09-29 07:31 | DIAGNOSTIC IMAGING REPORT ---
ABDOMEN 2VIEW W/PA CHEST RTN CLINICAL HISTORY: 51 years-old Female presenting with vomiting, abd pain. TECHNIQUE: PA view of the chest and supine and upright views of the abdomen were obtained. COMPARISON: 09/13/2017. FINDINGS: Atherosclerosis of aortic arch. Cardiac silhouette enlarged. Mildly low lung volumes with hypoventilatory changes. No focal infiltrate. No large effusion or pneumothorax. No gross pneumoperitoneum. Possible bowel wall thickening suggested in a loop of bowel in the left abdomen, which appears to be small bowel. This loop is also likely distended though the apparent diameter is affected by magnification. Allowing for bowel gas and stool, no calcifications to suggest nephrolithiasis. Degenerative changes of the spine. IMPRESSION: 1. Apparent small bowel wall thickening and distention in the left abdomen. This could suggest enteritis. Obstruction is difficult to exclude but is felt to be unlikely. 2. Mildly low lung volumes with hypoventilatory changes. The report will be called/faxed according to standard departmental protocol. Electronically signed by: Riaz Blackwood M.D. 09/29/2017 7:30 AM Dictated Date/Time: 09/29/2017 7:28 AM
[2017-10-08] MEDS ORDERED: ASPI81TA28 PO (11:21)
[2017-10-08] MEDS ORDERED: FAMO1TAB47 PO (11:22)
[2017-10-08] MEDS ORDERED: MGNO400 PO (11:22)
[2017-10-08] MEDS ORDERED: TPRSR50 PO (11:22)
[2017-10-08] MEDS ORDERED: LEVO200T6 PO (11:22)
[2017-10-08] MEDS ORDERED: LCTX PO (11:22)
[2017-10-08] MEDS ORDERED: LEVO1TAB35 PO (11:22)
[2017-10-08] MEDS ORDERED: SALI0.6510 (11:22)
[2017-10-08] MEDS ORDERED: INSU1.2I SQ (13:42)
[2017-10-24] MEDS ORDERED: LACT10SO3 OR (15:06)
[2017-11-21] MEDS ORDERED: INSU1.2I SQ (17:06)
[2017-11-21] MEDS ORDERED: OXYC-57 PO (17:07)
[2017-12-18] MEDS ORDERED: CMD5 PO (14:59)
[2017-12-18] MEDS ORDERED: FERR324T PO (14:59)
[2017-12-18] MEDS ORDERED: METR500T PO (14:59)
[2018-04-25] MEDS ORDERED: SENN-61 PO (14:51)
[2018-05-09] MEDS ORDERED: DIGO0.052 (13:48)
== END 2017-09-29 04:21 | disposition home or self-care (01) ==
LOC: C.EDB 00:08 → C.EDA 04:21
DX: N39.0 Urinary tract infection, site not specified (principal); E11.65 Type 2 diabetes mellitus with hyperglycemia; C18.9 Malignant neoplasm of colon, unspecified; J45.909 Unspecified asthma, uncomplicated; E78.5 Hyperlipidemia, unspecified; I10 Essential (primary) hypertension; E03.9 Hypothyroidism, unspecified; Z79.82 Long term (current) use of aspirin; Z79.51 Long term (current) use of inhaled steroids; Z79.4 Long term (current) use of insulin; Z83.3 Family history of diabetes mellitus; Z82.49 Family history of ischemic heart disease and other diseases of the circulatory system; Z82.0 Family history of epilepsy and other diseases of the nervous system

== ENCOUNTER 2017-10-03 16:02 | Inpatient (IN) | payer OTHER ==
[~2017-10-03] VITALS: Ht 152.4 cm; Wt 99.6 kg
[~2017-10-03 16:02] MED LIST changes: +CEPH500C PO; +CHOL4POW4 PO; -LISI-730 PO; +LSN5 PO; -ONDA-170 PO; +ONDA8TAB6 PO
[2017-10-03] MEDS ORDERED: SODIUM CHLORIDE 0.9% 500ML 500 ML IV STA (16:29)
[2017-10-03] MEDS ORDERED: ACETAMINOPHEN 500 MG TAB PO STA (16:29)
[2017-10-03] MEDS ORDERED: ONDANSETRON INJ 2 MG/ML 2 ML VIAL IV STA (16:29)
--- NOTE | 2017-10-03 16:48 | EMERGENCY ROOM VISIT NOTE ---
History Report prepared by Aakash: Peri Dixon Under the Supervision of: Dr. Oscar Aguirre M.D. First contact with patient: 16:22 Chief Complaint: HYPERGLYCEMIA Stated Complaint: COLD, SUGAR UP History of Present Illness The patient is a 51 year old female who presents to the Emergency Room with complaints of constant hyperglycemia beginning [employer]. The patient has a recent diagnosis of colon cancer and is scheduled for surgery on 10/18/17. She was not feeling well today and was evaluated at her PCP's office. Her BSG was 376 at the office and the patient was sent to the ED for further evaluation. The patient is currently complaining of feeling very cold. She states that she cannot get warm. She does not have any other complaints at this time. The patient states that her recent abdominal pain, diarrhea, and urinary symptoms have improved. She has not taken any medications for her symptoms. The patient rates her discomfort as a 9/10 in severity. 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 Review of Systems See HPI for pertinent positives & negatives. A total of 10 systems reviewed and were otherwise negative. Past Medical & Surgical Medical Problems: (1) Asthma (2) Diabetes mellitus type 2 in obese (3) Dyslipidemia (4) GERD (gastroesophageal reflux disease) (5) Hepatitis (6) HTN (hypertension) (7) Hypothyroidism (8) Lactic acidosis (9) Leaky heart valve (10) Mitral regurgitation (11) Morbid obesity with BMI of 40.0-44.9, adult (12) MRSA (methicillin resistant Staphylococcus aureus) (13) ANA (obstructive sleep apnea) (14) Panniculitis (15) Patella fracture (16) Post-op pain Surgical Problems: (1) History of carpal tunnel surgery (2) History of hysterectomy (3) History of tonsillectomy and adenoidectomy (4) History of tubal ligation (5) Hx of total knee arthroplasty Family History Diabetes mellitus FH: heart disease FH: lung disease Hypertension Seizures Social History Smoking Status: Never Smoker Alcohol Use: none Drug Use: none Marital Status: Housing Status: lives with significant other Occupation Status: disabled Current/Historical Medications Scheduled Aspirin (Aspirin Ec), 81 MG PO QAM Budesonide/Formoterol Fumarate (Symbicort 80/4.5 Inhaler), 2 PUFFS INH BID Cephalexin Monohydrate (Keflex), 500 MG PO TID Cholestyramine (Cholestyramine), 1 PKT PO BID Furosemide (Lasix), 20 MG PO QAM Gabapentin (Neurontin), 400 MG PO TID Insulin Aspart (Novolog Flexpen), 20 UNITS SC TIDM Insulin Aspart (Novolog), UNITS SQ TIDM Insulin Glargine (Toujeo Solostar), 60 UNITS SQ AMPM Ipratropium-Albuterol (Combivent Respimat), 1 PUFFS INH QID Levothyroxine Sodium (Levothyroxine Sodium), 1,400 MCG PO QAM Lisinopril (Lisinopril), 5 MG PO QAM Loratadine (Claritin), 10 MG PO QAM Metoprolol Tartrate (Lopressor), 25 MG PO QAM Montelukast Sod (Montelukast Sodium), 10 MG PO HS Potassium Chloride (Micro-K Ext Rel), 10 MEQ PO QAM Simvastatin (Zocor), 40 MG PO QPM Venlafaxine Hcl (Effexor Extended Rel), 150 MG PO QAM Scheduled PRN Albuterol Hfa (Ventolin Hfa), 2-4 PUFFS INH Q6H PRN for ASTHMA Meclizine Hcl (Meclizine Hcl), 25 MG PO TID PRN for Dizziness or Vertigo Mupirocin 2% (Bactroban 2%), 1 APPLN EXT BID PRN for PRN Nitroglycerin (Nitrostat), 0.4 MG UT UD PRN for Chest Pain Ondansetron Hcl (Zofran), 8 MG PO Q6 PRN for Nausea Allergies Coded Allergies: Daptomycin (Verified Allergy, Severe, SHORTNESS OF BREATH, 10/03/17) 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 Clindamycin (Verified Allergy, Intermediate, HIVES, 10/03/17) Sulfa Antibiotics (Verified Allergy, Intermediate, BACTRIM-HIVES, 10/03/17) BEE STING (Verified Allergy, Unknown, HIVES, 10/03/17) Trimethoprim (Verified Allergy, Unknown, HIVES, 10/03/17) Dulaglutide (Verified Adverse Reaction, Severe, BRAND-TRULICITY, SEVERE GI UPSET, CONSTIPATION, 10/03/17) Physical Exam Vital Signs Date Time Temp Pulse Resp B/P (MAP) Pulse Ox O2 Delivery O2 Flow Rate FiO2 10/03/17 18:28 81 20 91/52 94 Room Air 10/03/17 17:32 92 26 96 10/03/17 17:31 123/94 10/03/17 17:27 109 19 132/78 96 10/03/17 17:22 118 38 84 10/03/17 17:17 108 30 90 10/03/17 17:12 111 17 91 10/03/17 17:07 123 23 88 10/03/17 17:02 126 19 91 10/03/17 16:57 127 25 94 10/03/17 16:55 116 10/03/17 16:53 130/89 10/03/17 16:52 109 49 93 10/03/17 16:11 37.2 114 20 137/74 92 Room Air Physical Exam GENERAL: Patient is a healthy-appearing well-nourished 51 year old female. HEAD: Normocephalic atraumatic EYES: Ocular movements intact pupils equal and react to light OROPHARYNX mucous membranes are moist no exudates present no erythema or edema present NECK: Supple no nuchal rigidity CHEST: Good equal expansion LUNGS: Clear and equal to auscultation CARDIAC: Normal S1 and S2 ABDOMEN: Soft nontender no guarding BACK: No CVA tenderness EXTREMITIES: No pain upon palpation normal muscle strength in all groups no clubbing cyanosis or edema NEURO: Patient is following commands and answering questions appropriately. Alert and oriented x3 Cranial Nerves 2-12 grossly intact Medical Decision & Procedures ER Provider Diagnostic Interpretation: Radiology results as stated below per my review and radiologist interpretation: ABDOMEN 2VIEW W/PA CHEST RTN HISTORY: 51 years-old Female Pt c/o N V acute nausea and vomiting COMPARISON: Acute abdominal series radiographs 09/29/2017 TECHNIQUE: PA view of the chest with erect and supine views of the abdomen FINDINGS: Cardiomediastinal and hilar silhouettes are within normal limits. Linear subsegmental opacity of the lateral aspect left midlung is unchanged suggesting focal area of scarring. There is no pneumothorax, pleural effusion, focal airspace consolidation or overt pulmonary edema. Bones of the chest appear grossly intact. No pneumoperitoneum on the upright projection. Bowel gas pattern is nonobstructive. Transverse colon is gas filled. Nondilated gas-filled loops of small bowel are seen within the right midabdomen. No significant air-fluid levels identified. No urolith identified. Degenerative changes of the lumbar spine are noted. IMPRESSION: 1. Nonobstructive bowel gas pattern without pneumoperitoneum. 2. No acute cardiopulmonary process. The above report was generated using voice recognition software. It may contain grammatical, syntax or spelling errors. Electronically signed by: Jayjay Crowder M.D. 10/03/2017 6:13 PM Dictated Date/Time: 10/03/2017 6:10 PM Laboratory Results 10/03/17 16:44 Red Blood Count 5.24, Mean Corpuscular Volume 78.8, Mean Corpuscular Hemoglobin 27.9, Mean Corpuscular Hemoglobin Concent 35.4, Mean Platelet Volume 10.1, Neutrophils (%) (Auto) 74.0, Lymphocytes (%) (Auto) 15.3, Monocytes (%) (Auto) 10.0, Eosinophils (%) (Auto) 0.0, Basophils (%) (Auto) 0.1, Neutrophils # (Auto ) 8.06, Lymphocytes # (Auto) 1.66, Monocytes # (Auto) 1.09, Eosinophils # (Auto ) 0.00, Basophils # (Auto) 0.01 10/03/17 16:44 Test 10/03/17 16:23 10/03/17 16:29 10/03/17 16:44 10/03/17 17:19 Bedside Glucose 376 mg/dl (70-90) White Blood Count 10.88 K/uL (4.8-10.8) Red Blood Count 5.24 M/uL (4.2-5.4) Hemoglobin 14.6 g/dL (12.0-16.0) Hematocrit 41.3 % (37-47) Mean Corpuscular Volume 78.8 fL (80-100) Mean Corpuscular Hemoglobin 27.9 pg (25-34) Mean Corpuscular Hemoglobin Concent 35.4 g/dl (32-36) Platelet Count 211 K/uL (130-400) Mean Platelet Volume 10.1 fL (7.4-10.4) Neutrophils (%) (Auto) 74.0 % Lymphocytes (%) (Auto) 15.3 % Monocytes (%) (Auto) 10.0 % Eosinophils (%) (Auto) 0.0 % Basophils (%) (Auto) 0.1 % Neutrophils # (Auto) 8.06 K/uL (1.4-6.5) Lymphocytes # (Auto) 1.66 K/uL (1.2-3.4) Monocytes # (Auto) 1.09 K/uL (0.11-0.59) Eosinophils # (Auto) 0.00 K/uL (0-0.5) Basophils # (Auto) 0.01 K/uL (0-0.2) RDW Standard Deviation 37.5 fL (36.4-46.3) RDW Coefficient of Variation 13.1 % (11.5-14.5) Immature Granulocyte % (Auto) 0.6 % Immature Granulocyte # (Auto) 0.06 K/uL (0.00-0.02) Prothrombin Time 11.2 SECONDS (9.0-12.0) Prothromb Time International Ratio 1.1 (0.9-1.1) Activated Partial Thromboplast Time 29.9 SECONDS (21.0-31.0) Partial Thromboplastin Ratio 1.2 Anion Gap 11.0 mmol/L (3-11) Est Creatinine Clear Calc Drug Dose 62.7 ml/min Estimated GFR () 70.2 Estimated GFR (Non- 60.6 BUN/Creatinine Ratio 15.1 (10-20) Calcium Level 9.0 mg/dl (8.5-10.1) Total Bilirubin 0.9 mg/dl (0.2-1) Direct Bilirubin 0.2 mg/dl (0-0.2) Aspartate Amino Transf (AST/SGOT) 24 U/L (15-37) Alanine Aminotransferase (ALT/SGPT) 31 U/L (12-78) Alkaline Phosphatase 109 U/L (45-117) Total Creatine Kinase 416 U/L (26-192) Creatine Kinase MB 2.4 ng/ml (0.5-3.6) Creatine Kinase MB Ratio 0.6 (0-3.0) Troponin I 0.067 ng/ml (0-0.045) Total Protein 7.8 gm/dl (6.4-8.2) Albumin 2.5 gm/dl (3.4-5.0) Lipase 96 U/L (73-393) Beta-Hydroxybutyric Acid 22.96 mg/dL (0.2-2.81) Venous Blood pH 7.45 (7.36-7.41) Venous Blood Partial Pressure CO2 35 mmHg (38.0-50.0) Venous Blood Partial Pressure O2 57 mmHg Venous Blood HCO3 24 mmol/L Venous Blood Oxygen Saturation 88.8 % Venous Blood Base Excess 0.6 mEq/L Labs reviewed by ED physician. Medications Administered Medications (Trade) Dose Ordered Sig/Viviana Route Start Time Stop Time Status Last Admin Dose Admin Acetaminophen (Tylenol Tab) 1,000 mg NOW STAT PO 10/03/17 16:29 10/03/17 16:31 DC 10/03/17 17:04 1,000 MG Sodium Chloride 500 ml @ 999 mls/hr Q31M STAT IV 10/03/17 16:29 10/03/17 16:59 DC 10/03/17 17:03 999 MLS/HR Ondansetron HCl (Zofran Inj) 4 mg NOW STAT IV 10/03/17 16:29 10/03/17 16:31 DC 10/03/17 17:03 4 MG Insulin Human Regular (novoLIN-R U-100 PER UNIT) 10 units NOW STAT IV 10/03/17 16:49 10/03/17 16:50 DC 10/03/17 17:05 10 UNITS Aspirin (Aspirin Chew) 324 mg NOW STAT PO 10/03/17 17:13 10/03/17 17:18 DC 10/03/17 17:28 324 MG Diltiazem HCl (Cardizem Inj) 23 mg NOW STAT IV 10/03/17 17:13 10/03/17 17:18 DC 10/03/17 17:28 23 MG Diltiazem HCl (Cardizem Inj) 32 mg NOW STAT IV 10/03/17 17:13 10/03/17 17:18 DC 10/03/17 18:20 32 MG ECG Indication: tachycardia Rate (beats per minute): 120 Rhythm: atrial fibrillation (with RVR) Findings: no acute ischemic change, other (low voltage QRS) Comparison ECG Date: 09/29/17 Change: A-fib is new compared to previous. ED Course 162: Past medical records reviewed. The patient was evaluated in room C12B. A complete history and physical examination was performed. 1629: Zofran 4 mg IV, NSS 500 ml @ 999 mls/hr IV, Tylenol 1000 mg PO 1649: Insulin Human Regular 10 units IV 171: Upon reevaluation the patient is in agreement with the treatment plan. 1713: Cardizem 32 mg IV, Cardizem 23 mg IV, Aspirin 324 mg PO 1752: I updated the patient and she is doing well. 182: I reassessed the patient at this time. She is feeling better and resting more comfortably. I discussed the results and treatment plan with the patient. I answered all pertaining questions that she had. She expressed understanding and verbalized agreement. 183: I spoke with Dr. Indra Tellez. We discussed the patients results and treatment plan. The patient will be evaluated by the [facility] for further management. 1844: I updated the patient and she verbalized agreement. Medical Decision Etiologies such as appendicitis, diverticulitis, PUD, biliary pathology, UTI, pancreatitis, obstruction, mesenteric ischemia, aortic pathology, infections, inflammatory bowel disease, renal colic, as well as others were entertained. This is a 51-year-old female who presents emergency department with complaining of cold symptoms since Sunday. I actually believe that the patient is in atrial fibrillation with RVR and her symptoms of "feeling cold" Her explained by this. The patient was given Cardizem in the emergency department 2 to bring her heart rate down. The patient's troponin is elevated however she has no evidence of ischemia on EKG. I did discuss the case with the hospitalist service who agreed to admit the patient. Patient was also given insulin for her sugar here in the emergency department. Patient was in agreement with the treatment plan. Medication Reconcilliation Current Medication List: was personally reviewed by me Blood Pressure Screening Patient's blood pressure: Normal blood pressure Consults Time Called: 1820 Consulting Physician: Dr. Indra Tellez Returned Call: [phone] Indra Tellez. We discussed the patients results and treatment plan. The patient will be evaluated by the [facility] for further management. Impression Primary Impression: New onset a-fib Critical Care I have personally spent greater than 90 minutes of critical care time in the direct management of this patient. This includes bedside care, interpretation of diagnostic studies, and testing, discussion with consultants, patient, and family members, and other required patient management activities. This 90 minutes is in excess of all separately billable procedures. Scribe Attestation The scribe's documentation has been prepared under my direction and personally reviewed by me in its entirety. I confirm that the note above accurately reflects all work, treatment, procedures, and medical decision making performed by me. Departure Information Dispostion Being Evaluated By Hospitalist Referrals Madison Vivar M.D. (PCP) Patient Instructions My [facility]
[2017-10-03] MEDS ORDERED: NovoLIN-R INSULIN PER UNIT CHARGE IV STA (16:49)
[2017-10-03 16:59] LABS: BASO % 0.1 %; BASO ABS # 0.01 K/uL (0-0.2); HEMATOCRIT 41.3 % (37-47); HEMOGLOBIN 14.6 g/dL (12.0-16.0); IG# 0.06 K/uL (0.00-0.02); LYMPH % 15.3 %; LYMPH ABS # 1.66 K/uL (1.2-3.4); MEAN CELL VOLUME 78.8 fL (80-100); MEAN CORPUSCULAR HEMOGLOBIN 27.9 pg (25-34); MEAN CORPUSCULAR HGB CONC 35.4 g/dl (32-36); MEAN PLATELET VOLUME 10.1 fL (7.4-10.4); MONO ABS # 1.09 K/uL (0.11-0.59); NEUT ABS # 8.06 K/uL (1.4-6.5); PLATELET COUNT 211 K/uL (130-400); RED CELL DISTRIBUTION WIDTH CV 13.1 % (11.5-14.5); RED CELL DISTRIBUTION WIDTH SD 37.5 fL (36.4-46.3); WHITE BLOOD COUNT 10.88 K/uL (4.8-10.8)
[2017-10-03] MEDS ORDERED: ASPIRIN 81 MG CHEW PO STA (17:13)
[2017-10-03] MEDS ORDERED: DILTIAZEM HCL 5 MG/ML 5 ML VIAL IV STA ×2 (17:13)
[2017-10-03] MEDS ORDERED: DILTIAZEM BOLUS / DRIP IV STA (17:13)
[2017-10-03 17:24] LABS: ALBUMIN 2.5 gm/dl (3.4-5.0); CREATININE 1.05 mg/dl (0.60-1.20); POTASSIUM 3.7 mmol/L (3.5-5.1)
[2017-10-03 17:28] LABS: TOTAL PROTEIN 7.8 gm/dl (6.4-8.2)
[2017-10-03] MEDS ORDERED: DILTIAZEM HCL INJ 125 MG in DEXTROSE 5% 100ML IV PRN (17:30)
[2017-10-03 18:03] LABS: INR 1.1 (0.9-1.1); PTT PATIENT 29.9 SECONDS (21.0-31.0)
--- NOTE | 2017-10-03 18:14 | DIAGNOSTIC IMAGING REPORT ---
ABDOMEN 2VIEW W/PA CHEST RTN HISTORY: 51 years-old Female Pt c/o N V acute nausea and vomiting COMPARISON: Acute abdominal series radiographs 09/29/2017 TECHNIQUE: PA view of the chest with erect and supine views of the abdomen FINDINGS: Cardiomediastinal and hilar silhouettes are within normal limits. Linear subsegmental opacity of the lateral aspect left midlung is unchanged suggesting focal area of scarring. There is no pneumothorax, pleural effusion, focal airspace consolidation or overt pulmonary edema. Bones of the chest appear grossly intact. No pneumoperitoneum on the upright projection. Bowel gas pattern is nonobstructive. Transverse colon is gas filled. Nondilated gas-filled loops of small bowel are seen within the right midabdomen. No significant air-fluid levels identified. No urolith identified. Degenerative changes of the lumbar spine are noted. IMPRESSION: 1. Nonobstructive bowel gas pattern without pneumoperitoneum. 2. No acute cardiopulmonary process. The above report was generated using voice recognition software. It may contain grammatical, syntax or spelling errors. Electronically signed by: Jayjay Crowder M.D. 10/03/2017 6:13 PM Dictated Date/Time: 10/03/2017 6:10 PM
[2017-10-03 18:21] LABS: CKMB 2.4 ng/ml (0.5-3.6)
[2017-10-03] MEDS ORDERED: GLUCOSE 10 TABS/TUBE PO PRN ×2 (20:30→22:15)
[2017-10-03] MEDS ORDERED: ALBUTEROL HFA 8 GM INHALER INH PRN (20:30)
[2017-10-03] MEDS ORDERED: ACETAMINOPHEN 325 MG TAB PO PRN (20:30)
[2017-10-03] MEDS ORDERED: POLYETHYLENE (MIRALAX) 17 GM PACK PO PRN (20:30)
[2017-10-03] MEDS ORDERED: GLUCOSE 40% GEL 15 GM TUBE PO PRN ×2 (20:30→22:15)
[2017-10-03] MEDS ORDERED: DEXTROSE 50% 50 ML SYR IV PRN ×2 (20:30→22:15)
[2017-10-03] MEDS ORDERED: GLUCAGON FOR INJ 1 MG VIAL SQ PRN ×2 (20:30→22:15)
[2017-10-03] MEDS ORDERED: ALUMINUM/MAGNESIUM/SIMETH (MAALOX MAX) 30 ML UDC PO PRN (20:30)
[2017-10-03] MEDS ORDERED: ONDANSETRON INJ 2 MG/ML 2 ML VIAL IV PRN (20:30)
[2017-10-03] MEDS ORDERED: NITROGLYCERIN 0.4 MG SL PER TAB CHARGE UT PRN (20:30)
[2017-10-03] MEDS ORDERED: MAGNESIUM HYDROXIDE SUSP 30 ML UDC PO PRN (20:30)
[2017-10-03] MEDS ORDERED: INSULIN ASPART 100 UNITS/ML 3 ML PEN SC SCH (21:00)
[2017-10-03] MEDS ORDERED: OPTIRAY 320 IV PRN (22:00)
--- NOTE | 2017-10-03 22:09 | History and Physical ---
History & Physical Date & Time of Service: Oct 03, 2017 at 21:54 Chief Complaint: Cold, Sugar Up Primary Care Physician: Madison Vivar M.D. History of Present Illness 51 year old female with past medical history of diabetes mellitus type 2, hypothyroidism, obesity, obstructive sleep apnea on CPAP machine, dyslipidemia, hypertension and mitral regurgitation. Recently was diagnosed with colon cancer/appears to be adenocarcinoma as per her primary care physician staff, will go for resection on October 18. The last few days patient has been having vomiting/abdominal pain and dysuria. Patient went to see her primary care physician and was found to have fever of 101 and tachycardia. Patient was sent from her primary care physician to the ED for evaluation and management. On arrival to the ED her heart rate was about 120 in A. fib, patient stated that she has history of irregular heartbeat but never told that she has atrial fibrillation. She said that her doctor called Dr. Ramirez which I tried to reach and I failed. Unsure if the A. fib is new or old nothing in her previous history indicates the presence of atrial fibrillation. Also patient is on 1400 g of Synthroid indicating possible severe Synthroid malabsorption And on 60 units of long-acting insulin twice a day on presentation her blood sugar was 400 no gap. Denies chest pain but admits to occasional palpitation Admits to feeling feverish and chills for the past few days Past Medical/Surgical History Medical Problems: (1) Diabetes mellitus type 2 in obese Status: Chronic (2) Dyslipidemia Status: Chronic (3) GERD (gastroesophageal reflux disease) Status: Chronic (4) Hepatitis Status: Chronic (5) HTN (hypertension) Status: Chronic (6) Hypothyroidism Status: Chronic (7) Leaky heart valve Status: Chronic (8) Mitral regurgitation Permanent Comment: echo 10/14/15: mild-mod mitral regurg Status: Chronic (9) Morbid obesity with BMI of 40.0-44.9, adult Status: Chronic (10) MRSA (methicillin resistant Staphylococcus aureus) Status: Chronic (11) ANA (obstructive sleep apnea) Status: Chronic Surgical Problems: (1) History of carpal tunnel surgery Permanent Comment: bilateral Status: Resolved (2) History of hysterectomy Permanent Comment: ovaries remain Status: Resolved (3) History of tonsillectomy and adenoidectomy Status: Resolved (4) History of tubal ligation Status: Resolved (5) Hx of total knee arthroplasty Permanent Comment: L knee 2006 Status: Resolved Family History Diabetes mellitus FH: heart disease FH: lung disease Hypertension Seizures Social History Smoking Status: Never Smoker Drug Use: none Marital Status: Housing status: lives with family Occupational Status: disabled Immunizations History of Influenza Vaccine: N/A Influenza Vaccine Date: Jun 19, 2011 History of Tetanus Vaccine?: Yes History of Pneumococcal: Yes Pneumococcal Date: February 23, 2011 History of Hepatitis B Vaccine: Yes Multi-Drug Resistant Organisms History of MDRO: Yes Type of MDRO: MRSA Allergies Coded Allergies: Daptomycin (Verified Allergy, Severe, SHORTNESS OF BREATH, 10/03/17) 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 Clindamycin (Verified Allergy, Intermediate, HIVES, 10/03/17) Sulfa Antibiotics (Verified Allergy, Intermediate, BACTRIM-HIVES, 10/03/17) BEE STING (Verified Allergy, Unknown, HIVES, 10/03/17) Trimethoprim (Verified Allergy, Unknown, HIVES, 10/03/17) Dulaglutide (Verified Adverse Reaction, Severe, BRAND-TRULICITY, SEVERE GI UPSET, CONSTIPATION, 10/03/17) Home Medications Scheduled Aspirin (Aspirin Ec), 81 MG PO QAM Budesonide/Formoterol Fumarate (Symbicort 80/4.5 Inhaler), 2 PUFFS INH BID Cephalexin Monohydrate (Keflex), 500 MG PO TID Cholestyramine (Cholestyramine), 1 PKT PO BID Furosemide (Lasix), 20 MG PO QAM Gabapentin (Neurontin), 400 MG PO TID Insulin Aspart (Novolog Flexpen), 20 UNITS SC TIDM Insulin Aspart (Novolog), UNITS SQ TIDM Insulin Glargine (Toujeo Solostar), 60 UNITS SQ AMPM Ipratropium-Albuterol (Combivent Respimat), 1 PUFFS INH QID Levothyroxine Sodium (Levothyroxine Sodium), 1,400 MCG PO QAM Lisinopril (Lisinopril), 5 MG PO QAM Loratadine (Claritin), 10 MG PO QAM Metoprolol Tartrate (Lopressor), 25 MG PO QAM Montelukast Sod (Montelukast Sodium), 10 MG PO HS Potassium Chloride (Micro-K Ext Rel), 10 MEQ PO QAM Simvastatin (Zocor), 40 MG PO QPM Venlafaxine Hcl (Effexor Extended Rel), 150 MG PO QAM Scheduled PRN Albuterol Hfa (Ventolin Hfa), 2-4 PUFFS INH Q6H PRN for ASTHMA Meclizine Hcl (Meclizine Hcl), 25 MG PO TID PRN for Dizziness or Vertigo Mupirocin 2% (Bactroban 2%), 1 APPLN EXT BID PRN for PRN Nitroglycerin (Nitrostat), 0.4 MG UT UD PRN for Chest Pain Ondansetron Hcl (Zofran), 8 MG PO Q6 PRN for Nausea Review of Systems Constitutional: + fever, + chills, + weakness, + fatigue Eyes: No worsening of vision, No eye pain, No redness, No discharge, No diplopia, No problem reported ENT: No hearing loss, No unusual epistaxis, No nasal symptoms, No sore throat, No tinnitus, No dental problems, No trouble swallowing, No problem reported Respiratory: No cough, No sputum, No wheezing, No shortness of breath, No dyspnea on exertion, No dyspnea at rest, No hemoptysis, No problem reported Cardiovascular: + palpitations, No chest pain, No orthopnea, No PND, No edema, No claudication, No problem reported Abdomen: + pain, + nausea, + vomiting, No diarrhea, No constipation, No GI bleeding, No problem reported Musculoskeletal: No joint pain, No muscle pain, No swelling, No calf pain, No problem reported Genitourinary - Female: + dysuria, No urinary frequency, No urinary urgency, No urinary incontinence, No urinary retention, No hematuria, No dysmenorrhea, No menorrhagia, No metrorrhagia, No rash, No vaginal bleeding, No vaginal discharge, No vaginal itching, No vulvodynia, No , No problem reported Neurologic: No memory loss, No paralysis, No weakness, No numbness/tingling, No vertigo, No balance problems, No problem reported Psychiatric: No depression symptoms, No anhedonism, No anxiety, No insomnia, No substance abuse, No problem reported Endocrine: No fatigue, No excessive thirst, No excessive urination, No problem reported Hematologic / Lymphatic: No abnormal bleeding/bruising, No clotting problems, No swollen lymph nodes, No night sweats, No problem reported Integumentary: No rash, No itch, No new/changing skin lesions, No color change , No bleeding, No problem reported Allergic / Immunologic: No environmental allergies, No seasonal allergies, No pet sensitivities, No food allergies, No hives, No frequent infections, No poor healing, No prolonged convalescence, No problem reported Physical Exam Vital Signs Date Time Temp Pulse Resp B/P (MAP) Pulse Ox O2 Delivery O2 Flow Rate FiO2 10/03/17 18:28 81 20 91/52 94 Room Air 10/03/17 17:32 92 26 96 10/03/17 17:31 123/94 10/03/17 17:27 109 19 132/78 96 10/03/17 17:22 118 38 84 10/03/17 17:17 108 30 90 10/03/17 17:12 111 17 91 10/03/17 17:07 123 23 88 10/03/17 17:02 126 19 91 10/03/17 16:57 127 25 94 10/03/17 16:55 116 10/03/17 16:53 130/89 10/03/17 16:52 109 49 93 10/03/17 16:11 37.2 114 20 137/74 92 Room Air General Appearance: + mild distress, + obese Head: normocephalic, atraumatic Eyes: normal inspection, EOMI ENT: normal ENT inspection, hearing grossly normal Neck: supple Respiratory/Chest: chest non-tender, lungs clear, normal breath sounds, no respiratory distress, no accessory muscle use Cardiovascular: + systolic murmur, + irregularly irregular Abdomen/GI: normal bowel sounds, non tender, soft, no organomegaly, no pulsatile mass Back: normal inspection Extremities/Musculoskelatal: normal inspection, no calf tenderness Neurologic/Psych: 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 II-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 nml as tested, no motor/sensory deficits, alert, normal mood/affect, normal reflexes, oriented x 3 Skin: normal color, warm/dry, no rash Diagnostics Laboratory Results Results Past 24 Hours Test 10/03/17 16:23 10/03/17 16:44 10/03/17 17:19 10/03/17 19:30 Range/Units Bedside Glucose 376 70-90 mg/dl White Blood Count 10.88 4.8-10.8 K/uL Red Blood Count 5.24 4.2-5.4 M/uL Hemoglobin 14.6 12.0-16.0 g/dL Hematocrit 41.3 37-47 % Mean Corpuscular Volume 78.8 80-100 fL Mean Corpuscular Hemoglobin 27.9 25-34 pg Mean Corpuscular Hemoglobin Concent 35.4 32-36 g/dl Platelet Count 211 130-400 K/uL Mean Platelet Volume 10.1 7.4-10.4 fL Neutrophils (%) (Auto) 74.0 % Lymphocytes (%) (Auto) 15.3 % Monocytes (%) (Auto) 10.0 % Eosinophils (%) (Auto) 0.0 % Basophils (%) (Auto) 0.1 % Neutrophils # (Auto) 8.06 1.4-6.5 K/uL Lymphocytes # (Auto) 1.66 1.2-3.4 K/uL Monocytes # (Auto) 1.09 0.11-0.59 K/uL Eosinophils # (Auto) 0.00 0-0.5 K/uL Basophils # (Auto) 0.01 0-0.2 K/uL RDW Standard Deviation 37.5 36.4-46.3 fL RDW Coefficient of Variation 13.1 11.5-14.5 % Immature Granulocyte % (Auto) 0.6 % Immature Granulocyte # (Auto) 0.06 0.00-0.02 K/uL Prothrombin Time 11.2 9.0-12.0 SECONDS Prothromb Time International Ratio 1.1 0.9-1.1 Activated Partial Thromboplast Time 29.9 21.0-31.0 SECONDS Partial Thromboplastin Ratio 1.2 Sodium Level 125 136-145 mmol/L Potassium Level 3.7 3.5-5.1 mmol/L Chloride Level 90 98-107 mmol/L Carbon Dioxide Level 24 21-32 mmol/L Anion Gap 11.0 3-11 mmol/L Blood Urea Nitrogen 16 7-18 mg/dl Creatinine 1.05 0.60-1.20 mg/dl Est Creatinine Clear Calc Drug Dose 62.7 ml/min Estimated GFR () 70.2 Estimated GFR (Non- 60.6 BUN/Creatinine Ratio 15.1 10-20 Random Glucose 416 70-99 mg/dl Calcium Level 9.0 8.5-10.1 mg/dl Total Bilirubin 0.9 0.2-1 mg/dl Direct Bilirubin 0.2 0-0.2 mg/dl Aspartate Amino Transf (AST/SGOT) 24 15-37 U/L Alanine Aminotransferase (ALT/SGPT) 31 12-78 U/L Alkaline Phosphatase 109 45-117 U/L Total Creatine Kinase 416 26-192 U/L Creatine Kinase MB 2.4 0.5-3.6 ng/ml Creatine Kinase MB Ratio 0.6 0-3.0 Troponin I 0.067 0-0.045 ng/ml Total Protein 7.8 6.4-8.2 gm/dl Albumin 2.5 3.4-5.0 gm/dl Lipase 96 73-393 U/L Beta-Hydroxybutyric Acid 22.96 0.2-2.81 mg/dL Venous Blood pH 7.45 7.36-7.41 Venous Blood Partial Pressure CO2 35 38.0-50.0 mmHg Venous Blood Partial Pressure O2 57 mmHg Venous Blood HCO3 24 mmol/L Venous Blood Oxygen Saturation 88.8 % Venous Blood Base Excess 0.6 mEq/L Urine Color DK YELLOW Urine Appearance CLOUDY CLEAR Urine pH 5.0 4.5-7.5 Urine Specific Stites 1.028 1.000-1.030 Urine Protein 2+ NEG Urine Glucose (UA) 3+ NEG Urine Ketones 2+ NEG Urine Occult Blood 2+ NEG Urine Nitrite POS NEG Urine Bilirubin NEG NEG Urine Urobilinogen NEG NEG Urine Leukocyte Esterase NEG NEG Urine WBC (Auto) 10-30 0-5 /hpf Urine RBC (Auto) 10-30 0-4 /hpf Urine Hyaline Casts (Auto) 10-30 0-5 /lpf Urine Epithelial Cells (Auto) >30 0-5 /lpf Urine Bacteria (Auto) 3+ NEG Urine Pathogenic Casts 5-10 GRANULAR CASTS 0 /lpf Test 10/03/17 20:37 10/03/17 21:10 Range/Units Thyroid Stimulating Hormone (TSH) 0.768 0.300-4.500 uIu/ml Microbiology Results 10/03/17 Blood Culture, Received Pending 10/03/17 Blood Culture, Received Pending 10/03/17 Urine Culture, Eitan Batch Pending Impression Assessment and Plan 51 year old female with past medical history of dyslipidemia, hypertension, obstructive sleep apnea on CPAP, diabetes mellitus type 2 on large doses of insulin, hypothyroidism on large dose of Synthroid and newly diagnosed colon cancer possible adenocarcinoma presented to the ED with UTI, nausea vomiting and atrial fibrillation with RVR. Patient is poor historian she is unsure if the atrial fibrillation is new or old and I was not successful in reaching her primary care physician. 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 Based on our record it's new onset. Based on her chads score she should be started on anticoagulation which she is willing to do. Will need to rule out brain metastasis first, ordered CT brain with and without contrast, if it's negative then heparin subcutaneous for DVT prophylaxis should be stopped and she should be started on heparin for anticoagulation dose, then tomorrow maybe can be switched to Lovenox twice a day until her surgery date October 18 Obtain 2-D echo and cardiology consult Decrease dose of Synthroid giving her new onset atrial fibrillation Cardizem drip was stopped as her heart rate went to 80 blood pressure is borderline low UTI present on admission Urine culture and blood culture sent Empiric ceftriaxone started Hypothyroidism with large dose of Synthroid suggesting the possibility of malabsorption of levothyroxine Patient is on 1400 g per day, decrease the dose to 400 g per day until we get TSH, T3 total and free T3, T4 total and free T4 Also on the morning we can confirm the dose from her primary care physician and form layer. Diabetes mellitus uncontrolled with severe hyperglycemia Continue outpatient dose of Lantus 60 mg twice a day Sliding scale insulin Consult pharmacy Hypertension Hold blood pressure medications as blood pressure currently is low secondary to the Cardizem drip Dyslipidemia Continue statin DVT prophylaxis heparin subcutaneous until CT scan head results are back if it' s negative then patient will be started on heparin drip. VTE Prophylaxis VTE Risk Assessment Done? Y/N: Yes Risk Level: Moderate
--- NOTE | 2017-10-03 22:33 | DIAGNOSTIC IMAGING REPORT ---
HEAD COMBO CLINICAL HISTORY: 51 years-old Female presenting with colon ca/Afib R/O brain METs before heparin, dizziness, high blood sugar. TECHNIQUE: Multidetector CT imaging of the head was performed before and after the administration of intravenous contrast. IV contrast: 115 mL of Optiray 320. A dose lowering technique was used consistent with the principles of ALARA (as low as reasonably achievable). COMPARISON: 10/04/2016. CT DOSE (mGy.cm): The estimated cumulative dose is 1203.96 mGy.cm. FINDINGS: Black Puller topogram: Unremarkable. Ventricles and sulci normal in size. Brain parenchyma normal in appearance with preserved marie-white differentiation. No mass effect or midline shift. No hemorrhage or acute territorial infarct. No extra-axial fluid collection. Aerated secretions in the bilateral maxillary sinuses with partial opacification of the left sphenoid sinus and anterior ethmoid air cells. No gross evidence of osseous erosion or intraorbital extension. Postsurgical changes of the right mastoid air cells suspected. Calvarium intact. No abnormal parenchymal enhancement. Intracranial vasculature grossly patent. IMPRESSION: 1. No acute intracranial pathology. No abnormal enhancement. 2. Aerated secretions in the bilateral maxillary sinuses consistent with acute sinusitis. Electronically signed by: Riaz Blackwood M.D. 10/03/2017 10:31 PM Dictated Date/Time: 10/03/2017 10:25 PM
[2017-10-03 22:49] VITALS: BP 112/80; PULSE 93; TEMP 36.4; O2SAT 95; BMI 40.5
[2017-10-03] MEDS: NSS + 20MEQ KCL 1000ML 1,000 ML IV SCH (23:33)
[2017-10-03] MEDS: CEFTRIAXONE SOD INJ 1 GM in DEXTROSE 5% ADD-VANTAGE 50ML 50 ML IV SCH (23:36)
[2017-10-03] MEDS: GABAPENTIN 400 MG CAP PO SCH (23:38)
[2017-10-03] MEDS: SIMVASTATIN 40 MG TAB PO SCH (23:39)
[2017-10-03] MEDS: MONTELUKAST SOD 10 MG TAB PO SCH (23:39)
[2017-10-03 23:57] LABS: THYROXINE (T4) 12.8 mcg/dl (4.5-10.9)
[2017-10-04] VITALS (76 sets, daily range): BP systolic 72–146; BP diastolic 29–91; PULSE 53–124; TEMP 36.4–38.1; O2SAT 89–100; BMI 41.2
[2017-10-04] MEDS ORDERED: HEPARIN IV BOLUS 4,000 UNIT in SYRINGE 0 ML IV ONE (00:15)
[2017-10-04] MEDS ORDERED: HEPARIN 25,000 UNIT/500ML D5W 500 ML IV PRN (00:15)
[2017-10-04] MEDS ORDERED: PHARMACY GLYCEMIC MGMT CONSULT PRN (00:26)
[2017-10-04] MEDS: IPRATROPIUM BROMIDE/ALBUTEROL respimat INH INH SCH ×5 (00:29→21:18)
[2017-10-04] MEDS ORDERED: INSULIN GLARGINE SOLOSTAR 100 UNITS/ML 3 ML PEN SQ ONE (00:30)
[2017-10-04] MEDS: BUDESONIDE/FORMOTEROL FUMARATE 80/4.5 60 PUFFS/INHALER INH SCH ×3 (00:30→21:18)
[2017-10-04] MEDS: ACETYLCYSTEINE 600 MG CAP PO SCH ×3 (01:32→21:17)
[2017-10-04] MEDS: INSULIN ASPART 100 UNITS/ML 3 ML PEN SC SCH ×5 (01:34→21:20)
[2017-10-04] MEDS ORDERED: DILTIAZEM BOLUS / DRIP IV STA (04:45)
[2017-10-04] MEDS ORDERED: DILTIAZEM HCL 5 MG/ML 5 ML VIAL BOLUS/OMNI IV STA (05:13)
[2017-10-04] MEDS ORDERED: DILTIAZEM HCL INJ 125 MG in DEXTROSE 5% 100ML IV PRN (05:15)
[2017-10-04] MEDS ORDERED: HEPARIN SOD 5000 UNIT/0.5 ML CARP SQ SCH (06:00)
[2017-10-04] MEDS ORDERED: LEVOTHYROXINE 200 MCG TAB PO SCH (06:00)
[2017-10-04 06:42] LABS: BASO % 0.2 %; BASO ABS # 0.02 K/uL (0-0.2); EOS % 0.5 %; EOS ABS # 0.05 K/uL (0-0.5); HEMATOCRIT 40.6 % (37-47); HEMOGLOBIN 14.6 g/dL (12.0-16.0); IG# 0.04 K/uL (0.00-0.02); LYMPH % 14.2 %; LYMPH ABS # 1.32 K/uL (1.2-3.4); MEAN CELL VOLUME 78.4 fL (80-100); MEAN CORPUSCULAR HEMOGLOBIN 28.2 pg (25-34); MEAN PLATELET VOLUME 10.1 fL (7.4-10.4); MONO % 9.7 %; NEUT ABS # 6.97 K/uL (1.4-6.5); PLATELET COUNT 232 K/uL (130-400); RED CELL DISTRIBUTION WIDTH CV 13.2 % (11.5-14.5); RED CELL DISTRIBUTION WIDTH SD 37.5 fL (36.4-46.3)
[2017-10-04 06:48] LABS: PTT PATIENT 31.8 SECONDS (21.0-31.0)
[2017-10-04] MEDS ORDERED: HEPARIN IV BOLUS 4,500 UNIT in SYRINGE 0 ML IV ONE (07:00)
[2017-10-04 07:14] LABS: ALBUMIN 2.2 gm/dl (3.4-5.0); CALCIUM 8.6 mg/dl (8.5-10.1); CREATININE 0.87 mg/dl (0.60-1.20); POTASSIUM 3.5 mmol/L (3.5-5.1)
[2017-10-04 07:20] LABS: TOTAL PROTEIN 7.1 gm/dl (6.4-8.2)
[2017-10-04 07:51] LABS: HEMOGLOBIN A1C 10.3 % (4.5-5.6)
[2017-10-04] MEDS ORDERED: LISINOPRIL 5 MG TAB PO SCH (09:00)
[2017-10-04] MEDS ORDERED: INSULIN GLARGINE SOLOSTAR 100 UNITS/ML 3 ML PEN SQ SCH (09:00)
[2017-10-04] MEDS: ASPIRIN 81 MG ECTAB PO SCH (09:31)
[2017-10-04] MEDS: MECLIZINE HCL 25 MG TAB PO PRN (09:32)
[2017-10-04] MEDS: GABAPENTIN 400 MG CAP PO SCH ×3 (09:33→21:18)
[2017-10-04] MEDS: LORATADINE 10 MG TAB PO SCH (09:33)
[2017-10-04] MEDS: VENLAFAXINE HCL XR 150 MG CAPXR PO SCH (09:33)
[2017-10-04] MEDS: ONDANSETRON 8 MG TAB PO PRN (09:34)
[2017-10-04] MEDS: METOPROLOL TARTRATE 25 MG TAB PO SCH (09:35)
[2017-10-04] MEDS: POTASSIUM CHLORIDE 10 MEQ TABCR PO SCH (09:35)
[2017-10-04] MEDS: LACTOBACILLUS ACIDOPHILUS (FLORANEX) TAB PO SCH ×3 (09:36→16:57)
--- NOTE | 2017-10-04 09:53 | Pharmacy Progress Note ---
Glycemic Control Intl Consult Date of Service Oct 04, 2017. Scope Glycemic Pharmacist consulted by Dr Tellez on 10/03/17 for glycemic control and to write orders per [facility] inpatient glycemic control protocol Objective Weight (Kilograms): 95.700 Accuchecks BSG (last 24hrs): Test 10/03/17 16:23 10/03/17 16:44 10/03/17 21:58 10/04/17 00:30 Bedside Glucose 376 mg/dl (70-90) 299 mg/dl (70-90) 346 mg/dl (70-90) Random Glucose 416 mg/dl (70-99) Test 10/04/17 04:22 10/04/17 06:15 10/04/17 06:57 Bedside Glucose 184 mg/dl (70-90) 213 mg/dl (70-90) Random Glucose 211 mg/dl (70-99) Laboratory Data (last 24hrs) Test 10/03/17 16:44 10/04/17 06:15 Anion Gap 11.0 mmol/L 9.0 mmol/L BUN/Creatinine Ratio 15.1 17.2 Blood Urea Nitrogen 16 mg/dl 15 mg/dl Creatinine 1.05 mg/dl 0.87 mg/dl Potassium Level 3.7 mmol/L 3.5 mmol/L Sodium Level 125 mmol/L 130 mmol/L White Blood Count 10.88 K/uL 9.30 K/uL Red Blood Count 5.24 M/uL 5.18 M/uL Hemoglobin 14.6 g/dL 14.6 g/dL Hematocrit 41.3 % 40.6 % Mean Corpuscular Volume 78.8 fL 78.4 fL Mean Corpuscular Hemoglobin 27.9 pg 28.2 pg Mean Corpuscular Hemoglobin Concent 35.4 g/dl 36.0 g/dl Platelet Count 211 K/uL 232 K/uL Mean Platelet Volume 10.1 fL 10.1 fL Neutrophils (%) (Auto) 74.0 % 75.0 % Lymphocytes (%) (Auto) 15.3 % 14.2 % Monocytes (%) (Auto) 10.0 % 9.7 % Eosinophils (%) (Auto) 0.0 % 0.5 % Basophils (%) (Auto) 0.1 % 0.2 % Neutrophils # (Auto) 8.06 K/uL 6.97 K/uL Lymphocytes # (Auto) 1.66 K/uL 1.32 K/uL Monocytes # (Auto) 1.09 K/uL 0.90 K/uL Eosinophils # (Auto) 0.00 K/uL 0.05 K/uL Basophils # (Auto) 0.01 K/uL 0.02 K/uL Hemoglobin A1c 10.3 % HbA1c Test 10/04/17 06:15 Hemoglobin A1c 10.3 % (4.5-5.6) H Recent Pertinent Medications Outpatient Anti-diabetic Regimen: * Toujeo 60 units BID * Novolog 8-12 units with meals (per CDE note) * Recently on a prednisone taper from last admit that stopped 10/01/17) The patient is currently receiving: * Basal insulin: Lantus 40 units x 1 at midnight last night * Correctional Insulin: Novolog Correction per scale ACHS Goal Range: Low 120 mg/dL - High 160 mg/dL Correction Factor: 20 mg/dL/unit * Prandial insulin: Per carb ratio of 1 unit per 7 grams CHO consumed Risk Factors for Insulin Resistance: * Infection: UTI - on Rocephin * IVF: Cardizem and heparin drips (mixed in dextrose) * Diet: AHA * New onset A fib Assessment & Plan ASSESSMENT: * Ms. Bernard is a 51 y/o female admitted with new onset A. fib * She is well known to the pharmacy glycemic service from previous admissions * Upon this admission, BSGs were significantly elevated (normal anion gap) but improved with fluids and insulin * Her A1c shows BSGs are uncontrolled in the outpatient setting but when 60 units BID of basal was continued on last admission, she had low fasting BSGs * Will plan to continue with the 40 units of Lantus, dosed BID, for now. Will add parameters to increase tonight if BSGs elevated. * Will continue CF and CR for now * ADA & AACE recommend a goal blood sugar range 140-180 mg/dl for the majority of critically ill & non-critically ill patients. However, more stringent targets may be selected in individual cases. Will utilize more stringent goal of 110-140 mg/dl based on patient age & comorbidities. Additionally, tighter glycemic control is warranted to facilitate wound/infection healing. PLAN FOR INPATIENT GLYCEMIC CONTROL: * Lantus 40 units BID (50 units if BSG > 140) * Continue correction factor of 20 mg/dl/unit * Continue carb ratio of 1 unit per 7 grams CHO consumed * Change goal range to Low 110 mg/dL - High 140 mg/dL * Please note that the plan above was derived based on current level of insulin resistance and hospital stress. These recommendations are appropriate for inpatient admission only. Plan of care upon discharge will need to be reassessed to avoid potential outpatient hypo/hyperglycemia. Thank you.
[2017-10-04] MEDS ORDERED: NURSING VERBAL MED ORDER ONE ×2 (12:30→14:30)
[2017-10-04] MEDS ORDERED: SODIUM CHLORIDE 0.9% 250ML 250 ML IV ONE (13:00)
[2017-10-04] MEDS: SODIUM CHLORIDE 0.65% NA SOLN 45 ML (OCEAN) SCH ×3 (13:00→21:00)
[2017-10-04 13:12] LABS: BASO % 0.3 %; BASO ABS # 0.03 K/uL (0-0.2); EOS % 0.4 %; EOS ABS # 0.04 K/uL (0-0.5); HEMATOCRIT 39.1 % (37-47); HEMOGLOBIN 13.8 g/dL (12.0-16.0); IG# 0.06 K/uL (0.00-0.02); LYMPH % 22.2 %; MEAN CELL VOLUME 79.1 fL (80-100); MEAN CORPUSCULAR HEMOGLOBIN 27.9 pg (25-34); MEAN CORPUSCULAR HGB CONC 35.3 g/dl (32-36); MEAN PLATELET VOLUME 10.6 fL (7.4-10.4); MONO % 10.8 %; MONO ABS # 1.22 K/uL (0.11-0.59); NEUT % 65.8 %; NEUT ABS # 7.41 K/uL (1.4-6.5); PLATELET COUNT 244 K/uL (130-400); RED CELL DISTRIBUTION WIDTH CV 13.3 % (11.5-14.5); RED CELL DISTRIBUTION WIDTH SD 38.1 fL (36.4-46.3); WHITE BLOOD COUNT 11.26 K/uL (4.8-10.8)
--- NOTE | 2017-10-04 13:23 | Clinical Documentation Query ---
CLINICAL DOCUMENTATION QUERY Dr. MACKEY, In your clinical opinion is this patient being managed for: ( ) Sepsis, POA due to UTI (X ) Sepsis, not POA due to UTI ( ) Not Agree ( ) Other explanation of clinical findings (Please Explain) ( ) Unable to determine (Please Define) ( ) Need to Discuss The medical record reflects the following clinical findings, treatment, and risk factors. Clinical Indicators:51 yo female presenting with hyperglycemia, vomiting/abd pain/dysuria. Reported fever of 101 with tachycardia at PCP's office prior to ER presentation. Pt admitted feeling feverish and having chills. UA cx with gram neg bacilli prelim results. WBC 10.88, HR 114, Blood glucose 416. Pt was afebrile in ER but developed temp of 38.1, diaphoresis, and hypotension 8-9 hours post admission. Treatment: IV fluid bolus with continuous, IV novolin R, blood and urine cx, IV rocephin, tylenol po, Risk Factors: DM, UTI, colon cancer Please clarify and document your clinical opinion in the progress notes and discharge summary. Terms such as "probable", "suspected", "likely", "questionable", "possible", or "still to be ruled out" are acceptable. IF IN AGREEMENT, YOU MUST DOCUMENT ABOVE DIAGNOSTIC STATEMENT IN DAILY PROGRESS NOTES AND DISCHARGE SUMMARY. This document is not part of the patient's record. Thank You, Amina Stein RN [phone]
[2017-10-04 13:27] LABS: PTT PATIENT 44.4 SECONDS (21.0-31.0)
[2017-10-04 13:42] LABS: ALBUMIN 2.2 gm/dl (3.4-5.0); CALCIUM 8.6 mg/dl (8.5-10.1); CREATININE 1.35 mg/dl (0.60-1.20); POTASSIUM 3.3 mmol/L (3.5-5.1)
[2017-10-04 13:48] LABS: CKMB 1.5 ng/ml (0.5-3.6); TOTAL PROTEIN 6.8 gm/dl (6.4-8.2)
[2017-10-04 13:52] LABS: INFLUENZA B ANTIGEN Neg for Influ B (NEG)
[2017-10-04] MEDS: NSS + 20MEQ KCL 1000ML 1,000 ML IV SCH ×2 (14:27→22:48)
[2017-10-04] MEDS ORDERED: SODIUM CHLORIDE 0.9% 250ML 250 ML IV SCH (14:45)
--- NOTE | 2017-10-04 14:45 | Cardiology Consultation ---
Cardiology Consultation Date of Service Oct 04, 2017. (Mireya Schmitt, DANIEL) Cardiology Consultation Requesting Physician: Dr. Tellez Attending Terrazzo Finisher Helper: Dr. Neves History of Present Illness: Ms. Luisa Bernard is a 51 year old female who carries a history of chronic diastolic HF, frequent ventricualr/actrial ectopy on low dose beta yudy, recnet diagnosis of colorectal adenocarcinoma to underg resection later this month. 48 hours ago patient developed fevers and chills with generalized weakness. Came to ER, found to have afib RVR (new onset) with UTI. Flu test pending. Started on IV heparin and IV diltiazem. Given one additional dose of metoprolol as well. Rates improved with IV diltiazem. Diltaizem was stopped around 10:00 AM due to controlled rate. Around 10:30 patient stood from bed side commode after having BM with blood noted on TP. She beacema acutely diaphoretic and hypotensiove. Code purple was called. Patient was transferred to the ICU for further evaluation. At time of consult patient was lying in bed comfortably. Blood pressure trending up. She denied recurrent dizziness or lightheadedness. Diaphoresis improved. No chest pain or shortness of breath. She continues to note intermittent fever and chills. No recent illness or sick contacts. She is on IV antibiotic therapy for UTI cultures are pending. She recently underwent cardiac workup for preoperative evaluation prior to undergoing colon resection which included a dobutamine stress echo which was negative for inducible ischemia and preserved LV function. Complete Review of Systems is as stated above, negative, or noncontributory. Problem List: 1. Angiographically normal coronary arteries by catheterization in November 2008 ([facility]) 2. Right heart failure, diastolic dysfunction 3. Varying degrees of mitral regurgitation 4. Morbid obesity 5. Obstructive sleep apnea, CPAP therapy. 6. Hypertension 7. Dyslipidemia 8. Type II diabetes mellitus. 9. Hypothyroidism. 10. Asthma 11. GERD Past Surgical History also includes tubal ligation, vaginal hysterectomy, left knee replacement, tonsillectomy, eardrum surgery, bilateral carpal tunnel surgery, ORIF of a left patella fracture in January 2016. . Family History: Sister with an [place] at 52. Mother at 54 from complications of diabetes and hypertension. Father had coronary artery disease in his 70s. Family history of diabetes mellitus. Family history of thyroid disorders. Social History: Nonsmoker. No significant alcohol consumption. Denies illegal drug use. . Two children. Review of patient's allergies indicates: Allergen Reactions Bee Stings Anaphylaxis and Hives Clindamycin Hives Pt reports being allergic to clindamycin Daptomycin Reaction during IV therapy at [facility] admission 01/27/14 Sulfa Antibiotics Hives and central reaction Trimethoprim Reaction during 01/27/14 [facility] hospital stay Current Outpatient Prescriptions Reported Home Medications Medications Dose Route/Sig Max Daily Dose Days Date Category Dose Instructions Keflex (Cephalexin Monohydrate) 500 Mg Cap 500 Mg PO TID 7 09/29/17 Rx Cholestyramine 4 Gm Pow 1 Pkt PO BID 14 09/29/17 Rx Combivent Respimat (Ipratropium-Albuterol) 1 Aer Aer 1 Puffs INH QID 09/27/17 Reported Symbicort 80/4.5 Inhaler (Budesonide/Formoterol Fumarate) Aero 2 Puffs INH BID 09/27/17 Reported Micro-K Ext Rel (Potassium Chloride) 10 Meq Capcr 10 Meq PO QAM 09/12/17 Reported Lasix (Furosemide) 20 Mg Tab 20 Mg PO QAM 09/12/17 Reported Zofran (Ondansetron HCl) 8 Mg Tab 8 Mg PO Q6 PRN 09/12/17 Reported Zocor (Simvastatin) 40 Mg Tab 40 Mg PO QPM 09/12/17 Reported Novolog (Insulin Aspart) 100 Units/Ml Inj Units SQ TIDM 09/12/17 Reported SLIDING SCALE Bactroban 2% (Mupirocin) 30 Gm Cr 1 Appln EXT BID PRN 09/12/17 Reported Lopressor (Metoprolol Tartrate) 25 Mg Tab 25 Mg PO QAM 09/12/17 Reported Montelukast Sodium (Montelukast Sod) 10 Mg Tab 10 Mg PO HS 06/23/17 Reported Novolog Flexpen (Insulin Aspart) 100 Units/Ml Inj 20 Units SC TIDM 11/25/16 Reported Ventolin Hfa (Albuterol) 200 Puffs/48000 Mcg Aers 2-4 Puffs INH Q6H PRN 11/25/16 Reported Toujeo Solostar (Insulin Glargine) 300 Unit/Ml Inj 60 Units SQ AMPM 05/07/16 Reported Nitrostat (Nitroglycerin) 0.4 Mg Tab 0.4 Mg UT UD PRN 12/21/15 Reported Effexor Extended Rel (Venlafaxine Hcl) 150 Mg Capcr 150 Mg PO QAM 12/21/15 Reported Lisinopril 5 Mg Tab 5 Mg PO QAM 12/21/15 Reported Levothyroxine Sodium 200 Mcg Tab 1,400 Mcg PO QAM 02/02/15 Reported TAKE SEVEN 200MCG TABS DAILY Meclizine Hcl 25 Mg Tab 25 Mg PO TID PRN 02/02/15 Reported Aspirin Ec (Aspirin) 81 Mg Tab 81 Mg PO QAM 02/02/15 Reported PT WILL CHECK WITH SURGEON Neurontin (Gabapentin) 400 Mg Cap 400 Mg PO TID 11/12/12 Reported Claritin (Loratadine) 10 Mg Cap 10 Mg PO QAM 09/11/12 Reported PHYSICAL EXAM: Last 8 Hrs Date Time Temp Pulse Resp B/P (MAP) Pulse Ox O2 Delivery O2 Flow Rate FiO2 10/04/17 13:41 61 23 103/54 (70) 97 Room Air 10/04/17 13:36 71 23 88/56 (67) 98 Room Air 10/04/17 13:31 59 26 78/53 (61) 96 Room Air 10/04/17 13:21 56 13 79/60 (66) 98 Room Air 10/04/17 13:11 60 21 96/53 (67) 98 Room Air 10/04/17 13:06 60 24 102/48 (66) 97 Room Air 10/04/17 13:01 61 16 89/53 (65) 99 Room Air 10/04/17 13:00 59 21 98 Room Air 10/04/17 12:59 65 26 86/58 (67) 98 Room Air 10/04/17 12:56 61 18 94/61 (72) 98 10/04/17 12:51 68 14 91/54 (66) 96 10/04/17 12:45 60 15 98 10/04/17 12:36 64 19 78/61 (67) 90 10/04/17 12:31 63 19 74/52 (59) 97 10/04/17 12:30 53 28 97 10/04/17 12:11 69 16 81/51 (61) 95 Room Air 10/04/17 12:07 56 18 87/39 (55) 95 Room Air 10/04/17 12:02 36.6 76 18 95 10/04/17 12:01 60 72/54 (60) Room Air 10/04/17 12:00 Room Air 10/04/17 11:00 36.6 76 18 104/66 (79) 95 Room Air 10/04/17 10:00 69 20 102/69 (80) 99 Room Air 10/04/17 09:00 98 20 103/70 (81) 99 Room Air 10/04/17 08:23 38.1 118 18 103/69 (80) 99 Room Air 10/04/17 08:00 Room Air General: A&Ox3. NAD. Elevated BMI. HEENT: Normocephalic. Atraumatic. PER. Conjunctiva pink, sclera clear. Neck: No carotid bruits. No JVD. Heart: RRR, 60 bpm. Soft systolic murmur. No diastolic murmur. No rub. PMI is nondisplaced. Lungs: Clear to auscultation. Abdomen: Obese. +BS. Soft. Nontender. No masses or organomegaly. Extremities: Trivial edema. No clubbing. No cyanosis. Limited neurological examination is without focal deficits. Pulses: radial=2/4, posterior tibial=2/4. Data: EKG on arrival - Afib wiht RVR no specific ST/T wave changes Telemetry reviewed - Afib with controlled rates, currently 50-60's. April 09, 2017 TTE Interpretation Summary (as per Dr. Neri): Compared to last available study, there has been no interval change. Normal LV chamber size and wall thickness. Normal LV systolic function, EF 55-60%. Grade II diastolic dysfunction. The mitral valve anatomy is normal. Mitral stenosis is absent. Mild mitral regurgitation is present. The mitral regurgitation jet is eccentric. The mitral regurgitation jet is also posteriorly directed. Mild left atrial enlargement. August 28, 2017 DSE Interpretation Summary (as per Dr. Neri): The stress echo is negative for inducible ischemia. Frequent PVC's with dobutamine infusion including multiple short salvoes of NSVT lasting 35 beats. Hypertensive BP response to dobutamine infusion. At rest, normal LV chamber size and wall thickness. Normal LV systolic function without regional wall motion abnormality, EF 55-60%. Grade II diastolic dysfunction. Mild mitral regurgitation is present. The mitral regurgitation jet is posteriorly directed. Mild left atrial enlargement. September 13, 2017 TTE Interpretation Summary ([facility], Dr. Grullon) Compared to prior study, there is no significant change. The left ventricle is normal in size. Left ventricular systolic function is normal. There is borderline hypokinesis of the basal inferior posterior wall. Ejection Fraction = 55-60%. The aortic valve is not well visualized. No hemodynamically significant valvular aortic stenosis. There is moderate to severe mitral regurgitation. The mitral regurgitant jet is eccentrically directed. Doppler findings do not suggest pulmonary hypertension. Holter monitoring in August, I believe while on Toprol XL 50 mg/day, revealed sinus with an average heart rate of 64 bpm. PACs - mild in frequency including 190 isolated premature atrial contractions, 6 atrial runs, longest atrial run was 26 beats in duration with a rate of 103 beats per minute. The fastest atrial run was 3 beats in duration with rate of 110 beats per minute. PVCs - moderate in frequency with 688 isolated PVCs.10 runs of nonsustaiend ventricular tachcyardia were observed. The longest ventricular run was 7 beats in duration with rate of 110 beats per minute. The fastest ventricular run was 7 beats in duration with rate of 115 beats per minute. Symptoms - no symptoms were reported Summary: Runs of nonsustained ventricular tachycardia with durations of 6 beats, 7 beats, and 7 beats were observed. As per Dr. Lancaster. IMPRESSION: 1. Atrial fibrillation, with RVR on admission, rates improved with IV diltiazem and home lopressor 25 mg daily. Started on heparin gtt on admission 2. Recent diagnosis of colorectal adenocarcinoma, wiht intermittent BRB, including this admission after BM. 3. Hypotensive episode this morning, likely vasovagal due to IV diltiazem gtt and recent BM. symptoms improving upon evaluation 4. minimal troponin elevation, not indicative of ACS, will repeat. Likely due to afib RVR. PLAN: IV diltiazem stopped. Stop heparin given current colon CA and GI bleeding. Not anticoagulation candidate at this time. Rate controlled on low dose lopressor. IV fluids for hypotension. Update Echo Update/repeat labs. Further recommendations pending above evaluation/clinical response. Case discussed with Dr. Neves. (Mireya Schmitt, PAGalinaC) Cardiology Attending Physician: Patient seen and examined at the bedside. Transferred to ICU secondary to hypotension. BP improved with IV hydration. IV diltiazem discontinued. Remains in AF with CVR on telemetry. Denies CP, Palps, or SOB. Hypokalemia noted. 2D echo pending. No prior history of atrial fibrillation. Recently diagnosed with colon cancer. PE: VSS, with borderline hypotension. Gen: NAD, AAO x 3. Obese. Heart: regular, normal S1S2, no murmur. Lungs: Clear anteriorly. Ext: No edema. A/P: Agree with above PA-C history, physical exam, assessment and plan. Patient clinically volume depleted with elevate creatinine and hypokalemia. Rate controlled however, remains in atrial fibrillation with CVR. Risk of anticoagulation currently outweighs benefit with recent GIB and known colon CA. Agree with discontinuation of IV diltiazem. Will utilize oral low dose beta yudy therapy as BP tolerates. Will replace potassium oral now and increase IV hydration with NSS. 250cc bolus x 1 now and increase infusion rate to 100cc/ hr. I will review 2D echo when available. Luis Daniel Neves DO, FACC (Faizan Neves, )
[2017-10-04 14:58] LABS: INFLUENZA A PCR Neg for Influ A (NEG); INFLUENZA B PCR Neg for Influ B (NEG)
[2017-10-04] MEDS ORDERED: POTASSIUM CHLORIDE 20 MEQ TABCR PO ONE (15:00)
[2017-10-04] MEDS ORDERED: ICU PROTOCOL FOR HYPERGLYCEMIA PRN (18:00)
--- NOTE | 2017-10-04 18:35 | ECHOCARDIOGRAM REPORT ---
*NOTICE TO RECEIVING [employer] This information is strictly Confidential and protected under [place] law. [place] law prohibits you from making any further disclosure of this information unless further disclosure is expressly permitted by the written consent of the person to whom it pertains or is authorized by law. A general authorization for the release of medical or other information is not sufficient for this purpose. Hospital accepts no responsibility if the information is made available to any other person, INCLUDING THE PATIENT. Interpretation Summary * : DERRELL WOODS Study Date: 10/04/2017 01:34 PM BP: 103/54 mmHg * Patient Location: .MSICU\S\E110\S\1 HR: 61 * : 1965 (M/d/yyyy) Gender: Female Height: 60 in * Age: 51 yrs Ethnicity: CA Weight: 202 lb * Ordering Physician: Isabel Ontiveros * Referring Physician: Self, Referred * Performed By: Elaine Michelle [facility] [[email or web address]] * * Reason For Study: A-FIB * BSA: 1.9 m2 * The study was technically difficult. * Compared to prior study, there is no significant change. * -- Conclusions -- * The rhythm is atrial fibrillation. * Ejection Fraction = 55-60%. * The left atrium is mildly dilated. * There is moderate mitral regurgitation. * The mitral regurgitant jet is eccentrically directed. Procedure Details * A complete two-dimensional transthoracic echocardiogram was performed (2D, M-mode, Doppler and color flow Doppler). * The study was technically difficult. * A contrast injection of Definity was performed to improve assessment of LV function. * Contrast was injected into an intravenous site in the left arm. * One vial of Definity ultrasound contrast was diluted in normal saline to a total volume of 10 ml. A total of '1' ml of solution was administered during imaging. * Lot # [id number] of Definity utilized for procedure. * Expiration date . * The attending nurse who injected the contrast agent was Ira Barraza RN. Left Ventricle * The left ventricle is normal in size. * The rhythm is atrial fibrillation. * There is normal left ventricular wall thickness. * Ejection Fraction = 55-60%. * Left ventricular systolic function is normal. * No regional wall motion abnormalities noted. Right Ventricle * The right ventricle is normal size. * The right ventricular systolic function is normal as assessed by tricuspid annular plane systolic excursion (TAPSE) (normal >1.5 cm). Atria * The left atrium is mildly dilated. * Right atrial size is normal. * There is no evidence of atrial septal defect, but resolution does not allow assessment for a patent foramen ovale. Mitral Valve * The mitral valve is normal. * There is no mitral valve stenosis. * There is moderate mitral regurgitation. * The mitral regurgitant jet is eccentrically directed. Tricuspid Valve * The tricuspid valve is not well visualized. * There is no tricuspid stenosis. * There is trace tricuspid regurgitation. * Doppler findings do not suggest pulmonary hypertension. Aortic Valve * The aortic valve is not well visualized. * Aortic stenosis is absent. * There is no significant aortic regurgitation. Pulmonic Valve * The pulmonary valve is inadequately visualized, but the Doppler data is adequate for interpretation. * There is no pulmonic valvular stenosis. * Trace pulmonic valvular regurgitation. Great Vessels * The aortic root is normal size. Pericardium/Pleural * There is no pericardial effusion. Great Vessels * Normal inferior vena cava diameter and respiratory variation suggests normal central venous pressure. Left Ventricular Diastolic Function * Pulse wave TDI of the anterior and posterior mitral annulas demonstrates abnormal LV relaxation MMode 2D Measurements and Calculations IVSd 1.0 cm IVSs 1.2 cm LVIDd 3.9 cm LVIDs 2.7 cm LVPWd 1.1 cm LVPWs 1.4 cm IVS/LVPW 0.95 FS 30.0 % EDV(Teich) 67.0 ml ESV(Teich) 28.2 ml EF(Teich) 57.9 % EDV(cubed) 60.5 ml ESV(cubed) 20.7 ml EF(cubed) 65.8 % % IVS thick 15.1 % % LVPW thick 25.5 % LV mass(C)d 136.1 grams LV mass(C)dI 72.6 grams/m\S\2 LV mass(C)s 109.0 grams LV mass(C)sI 58.2 grams/m\S\2 SV(Teich) 38.8 ml SI(Teich) 20.7 ml/m\S\2 SV(cubed) 39.8 ml SI(cubed) 21.2 ml/m\S\2 Ao root diam 3.3 cm Ao root area 8.3 cm\S\2 ACS 1.4 cm LA dimension 4.3 cm asc Aorta Diam 3.0 cm LA/Ao 1.3 EDV(MOD-sp4) 118.6 ml ESV(MOD-sp4) 50.0 ml EF(MOD-sp4) 57.8 % EDV(MOD-sp2) 95.2 ml ESV(MOD-sp2) 42.7 ml EF(MOD-sp2) 55.1 % SV(MOD-sp4) 68.6 ml SI(MOD-sp4) 36.6 ml/m\S\2 SV(MOD-sp2) 52.5 ml SI(MOD-sp2) 28.0 ml/m\S\2 Doppler Measurements and Calculations MV E max shirley 111.4 cm/sec MV P1/2t max shirley 112.9 cm/sec MV P1/2t 94.4 msec MVA(P1/2t) 2.3 cm\S\2 MV dec slope 350.1 cm/sec\S\2 MV dec time 0.19 sec Ao V2 max 130.3 cm/sec Ao max PG 6.9 mmHg Ao max PG (full) 3.9 mmHg LV V1 max PG 3.0 mmHg LV V1 max 86.2 cm/sec PA V2 max 85.2 cm/sec PA max PG 2.9 mmHg PI max shirley 136.3 cm/sec PI max PG 7.4 mmHg PI dec slope 90.2 cm/sec\S\2 PI P1/2t 442.7 msec TR max shirley 212.8 cm/sec
--- NOTE | 2017-10-04 18:37 | DIAGNOSTIC IMAGING REPORT ---
ULTRASOUND VENOUS DOPPLER LWR EXT BILA CLINICAL HISTORY: Colon carcinoma. Hemodynamic changes. Evaluate for DVT. COMPARISON STUDY: 06/29/2015 FINDINGS: Real-time and color flow Doppler imaging were performed. Flow was seen within the femoral, popliteal and calf veins with no intraluminal thrombus demonstrated. The saphenous vein is patent. IMPRESSION: No evidence of lower extremity DVT. Electronically signed by: Cameron Browning M.D. 10/04/2017 6:36 PM Dictated Date/Time: 10/04/2017 6:36 PM
[2017-10-04] MEDS ORDERED: FAMOTIDINE IV INJ 20 MG in DEXTROSE 5% 100ML 100 ML IV SCH (19:15)
--- NOTE | 2017-10-04 19:35 | Critical Care Consultation ---
Critical Care Consultation Date of Consultation: Oct 04, 2017. Attending Physician: Silvestre St D.O. Reason for Consultation: Consulted to manage hypotension History of Present Illness Director Of Convention Services: Dr. Owens Is a 51-year-old female that was recently diagnosed with adenocarcinoma of rectum that presented with weakness and shortness of breath. She also reports several days of nausea and vomiting. She was recently admitted from [id number] for sepsis but had no cultures were positive. She was treated with Zosyn and vancomycin as well as steroids. A CTA done at that time on showed no evidence of pulmonary emboli. There was a 6 mm left lower lobe nodule a 6 mm right upper lobe nodules similar to CT of August 31, 2017. There is no consolidation or infiltrate to lead to diagnosis of pneumonia. At that time there was no significant leukocytosis. However, patient and elevated POC lactic acid of 5.12. Repeat lactic acid from serum was 1.3. In spite of negative findings patient was admitted for three days for shortness of breath and hypoxia at that time. Patient does have a history of morbid obesity and hypoventilation versus ANA and is on CPAP at home. The patient then presented to the emergency department on 09/29/17 with complaints of abdominal pain with lower back pain as well. She reported nausea and vomiting at that admission as well. The patient was given morphine sulfate 4 mg IV as well as some Zofran. She was then given Rocephin 1 g IV for UTI and discharged home with a prescription for Keflex 500 mg three times daily for seven days. Regarding this admission, patient presented with cold-like symptoms and complain that her sugar was high. She was found to have new onset atrial fibrillation with rapid ventricular rate. She was started on diltiazem drip. This morning, a code ember was called and the critical care team responded. We found the patient that time hypotensive with a systolic blood pressure in the 70s and with a rate of 57 and an SaO2 of 95% on 2 L via nasal cannula. Patient had peripheral IV access. She was transferred the intensive care for critical care management for hypotension. She was given two boluses of normal saline and put on an infusion of normal saline with 20 mEq of potassium per liter at 75 mL per hour. Within two hours her systolic blood pressure had improved into the mid 90s but she was still in atrial fibrillation. Potassium was 3.2 and was repleted not only in her IV fluid but with 20 mEq by mouth 2. The patient denied any chest pain or tightness. She had no acute shortness of breath. She had no pleuritic pain. She had no hemoptysis. She has chronic back pain but denied any acute pain. She had no other acute complaints. During the course of the interview for consultation to the critical care unit patient did clarify that she is on levothyroxine 1400 g daily. This was confirmed reviewing . The patient previously followed with Dr. Zhang at [facility] and continues with endocrinology via [facility] with Dr. Courtney Moore and most recently saw Sheron Lowry RN.. The patient follows with Dr. Vivar at [facility]. She follows with NAOMY Graham at [facility] for cardiology. She recently had PFTs performed at [facility] which revealed some restrictive disease. Formal results are still pending. She follows with Dr. Burns for adenocarcinoma of rectum Past Medical/Surgical History Medical Problems: (1) Asthma (2) Diabetes mellitus type 2 in obese (3) Dyslipidemia (4) GERD (gastroesophageal reflux disease) (5) Hepatitis (6) HTN (hypertension) (7) Hypothyroidism on Levothyroxine 1400 g daily (8) Hx Lactic acidosis (9) Leaky heart valve (10) Mitral regurgitation (11) Morbid obesity with BMI of 40.0-44.9, adult (12) MRSA (methicillin resistant Staphylococcus aureus) (13) ANA (obstructive sleep apnea) (14) Panniculitis (15) Patella fracture (16) Post-op pain (17) Recent diagnosis of adenocarcinoma of rectum Surgical Problems: (1) History of carpal tunnel surgery (2) History of hysterectomy (3) History of tonsillectomy and adenoidectomy (4) History of tubal ligation (5) Hx of total knee arthroplasty (6) Recent colonoscopy with noted malignancy Family History Diabetes mellitus FH: heart disease FH: lung disease Hypertension Seizures Social History Smoking Status: Never Smoker Smokeless Tobacco Use: No Alcohol Use: none Drug Use: none Marital Status: Housing Status: lives with significant other () Occupation Status: disabled Allergies Coded Allergies: Daptomycin (Verified Allergy, Severe, SHORTNESS OF BREATH, 10/03/17) 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 Clindamycin (Verified Allergy, Intermediate, HIVES, 10/03/17) Sulfa Antibiotics (Verified Allergy, Intermediate, BACTRIM-HIVES, 10/03/17) BEE STING (Verified Allergy, Unknown, HIVES, 10/03/17) Trimethoprim (Verified Allergy, Unknown, HIVES, 10/03/17) Dulaglutide (Verified Adverse Reaction, Severe, BRAND-TRULICITY, SEVERE GI UPSET, CONSTIPATION, 10/03/17) Home Medications Scheduled Aspirin (Aspirin Ec), 81 MG PO QAM Budesonide/Formoterol Fumarate (Symbicort 80/4.5 Inhaler), 2 PUFFS INH BID Cephalexin Monohydrate (Keflex), 500 MG PO TID Cholestyramine (Cholestyramine), 1 PKT PO BID Furosemide (Lasix), 20 MG PO QAM Gabapentin (Neurontin), 400 MG PO TID Insulin Aspart (Novolog Flexpen), 20 UNITS SC TIDM Insulin Aspart (Novolog), UNITS SQ TIDM Insulin Glargine (Toujeo Solostar), 60 UNITS SQ AMPM Ipratropium-Albuterol (Combivent Respimat), 1 PUFFS INH QID Levothyroxine Sodium (Levothyroxine Sodium), 1,400 MCG PO QAM Lisinopril (Lisinopril), 5 MG PO QAM Loratadine (Claritin), 10 MG PO QAM Metoprolol Tartrate (Lopressor), 25 MG PO QAM Montelukast Sod (Montelukast Sodium), 10 MG PO HS Potassium Chloride (Micro-K Ext Rel), 10 MEQ PO QAM Simvastatin (Zocor), 40 MG PO QPM Venlafaxine Hcl (Effexor Extended Rel), 150 MG PO QAM Scheduled PRN Albuterol Hfa (Ventolin Hfa), 2-4 PUFFS INH Q6H PRN for ASTHMA Meclizine Hcl (Meclizine Hcl), 25 MG PO TID PRN for Dizziness or Vertigo Mupirocin 2% (Bactroban 2%), 1 APPLN EXT BID PRN for PRN Nitroglycerin (Nitrostat), 0.4 MG UT UD PRN for Chest Pain Ondansetron Hcl (Zofran), 8 MG PO Q6 PRN for Nausea Current Inpatient Medications Current Inpatient Medications Medications (Trade) Dose Ordered Sig/Viviana Route Start Time Stop Time Status Last Admin Dose Admin Acetaminophen (Tylenol Tab) 650 mg Q4H PRN PO 10/03/17 20:30 11/02/17 20:29 10/04/17 09:42 650 MG Al Hydrox/Mg Hydrox/Simethicone (Maalox Max Susp) 15 ml Q4H PRN PO 10/03/17 20:30 11/02/17 20:29 Magnesium Hydroxide (Milk Of Magnesia Susp) 30 ml Q12H PRN PO 10/03/17 20:30 11/02/17 20:29 Ondansetron HCl (Zofran Inj) 4 mg Q6H PRN IV 10/03/17 20:30 11/02/17 20:29 Polyethylene (Miralax Powder Packet) 17 gm DAILY PRN PO 10/03/17 20:30 11/02/17 20:29 Glucose (Glucose 40% Gel) 15-30 GRAMS 15 GRAMS... UD PRN PO 10/03/17 20:30 11/02/17 20:29 Glucose (Glucose Chew Tab) 4-8 Tablets 4 Tabl... UD PRN PO 10/03/17 20:30 11/02/17 20:29 Dextrose (Dextrose 50% 50ML Syringe) 25-50ML OF 50% DW IV FOR... UD PRN IV 10/03/17 20:30 11/02/17 20:29 Glucagon (Glucagon Inj) 1 mg UD PRN SQ 10/03/17 20:30 11/02/17 20:29 Albuterol (Ventolin Hfa Inhaler) 2 puffs Q6H PRN INH 10/03/17 20:30 11/02/17 20:29 Aspirin (Ecotrin Tab) 81 mg QAM PO 10/04/17 09:00 11/03/17 08:59 10/04/17 09:31 81 MG Budesonide/ Formoterol Fumarate (Symbicort 80/ 4.5 Inh) 2 puffs BID INH 10/03/17 21:00 11/02/17 20:59 10/04/17 09:36 2 PUFFS Gabapentin (Neurontin Cap) 400 mg TID PO 10/03/17 21:00 11/02/17 20:59 10/04/17 14:29 400 MG Albuterol/ Ipratropium (Combivent Respimat Inh) 1 puffs QID INH 10/03/17 21:00 11/02/17 20:59 10/04/17 16:58 1 PUFFS Lisinopril (Zestril Tab) 5 mg QAM PO 10/04/17 09:00 11/03/17 08:59 Future Hold 10/04/17 09:32 5 MG Loratadine (Claritin Tab) 10 mg QAM PO 10/04/17 09:00 11/03/17 08:59 10/04/17 09:33 10 MG Meclizine HCl (Antivert Tab) 25 mg TID PRN PO 10/03/17 20:30 11/02/17 20:29 10/04/17 09:32 25 MG Metoprolol Tartrate (Lopressor Tab) 25 mg QAM PO 10/04/17 09:00 11/03/17 08:59 10/04/17 09:35 25 MG Montelukast Sodium (Singulair Tab) 10 mg HS PO 10/03/17 21:00 11/02/17 20:59 10/03/17 23:39 10 MG Nitroglycerin (Nitrostat Tab) 0.4 mg UD PRN UT 10/03/17 20:30 11/02/17 20:29 Ondansetron HCl (Zofran Tab) 8 mg Q6 PRN PO 10/03/17 20:30 11/02/17 20:29 10/04/17 09:34 8 MG Potassium Chloride (Klor-Con M10) 10 meq QAM PO 10/04/17 09:00 11/03/17 08:59 10/04/17 09:35 10 MEQ Simvastatin (Zocor Tab) 40 mg QPM PO 10/03/17 21:00 11/02/17 20:59 10/03/17 23:39 40 MG Venlafaxine HCl (effeXOR EXTENDED REL CAP) 150 mg QAM PO 10/04/17 09:00 11/03/17 08:59 10/04/17 09:33 150 MG Potassium Chloride/Sodium Chloride 1,000 ml @ 100 mls/hr Q10H IV 10/03/17 23:00 11/02/17 22:59 10/04/17 14:27 75 MLS/HR Ceftriaxone Sodium 1 gm/ Dextrose 50 ml @ 100 mls/hr Q24H IV 10/03/17 23:00 10/13/17 22:59 10/03/17 23:36 100 MLS/HR Lactobacillus Acidophilus (Floranex Tab) 4 tab TIDM PO 10/04/17 07:30 11/03/17 07:59 10/04/17 16:57 4 TAB Ioversol (Optiray 320) 100 ml UD PRN IV 10/03/17 22:00 10/07/17 21:59 Insulin Aspart (novoLOG ASPART) SLIDING SCALE If C... ACHS SC 10/04/17 00:30 11/03/17 00:29 10/04/17 17:04 9 UNITS Miscellaneous Information (Consult Glycemic Management Pharmacy) 1 ea UD PRN N/A 10/04/17 00:26 11/03/17 00:25 Acetylcysteine (Acetylcysteine Cap) 600 mg BID PO 10/04/17 00:30 11/03/17 00:29 10/04/17 09:32 600 MG Sodium Chloride ([place] Nasal [place]) 2 sprays QID NA 10/04/17 09:00 11/03/17 08:59 Diltiazem HCl 125 mg/Dextrose 125 ml @ 0 mls/hr Q0M PRN IV 10/04/17 05:15 11/03/17 05:14 10/04/17 05:31 5 MLS/HR Insulin Glargine (Lantus Solostar Pen) see protocol text BID SQ 10/04/17 21:00 11/03/17 20:59 Levothyroxine Sodium (Synthroid Tab) 1,400 mcg DAILYBB PO 10/05/17 06:00 11/04/17 05:59 Miscellaneous Information ([facility] Protocol For Hyperglycemia) 1 ea PRN PRN N/A 10/04/17 18:00 10/06/17 17:59 UNV Review of Systems A total of 12 systems was reviewed and is negative other than as listed above in the HPI Physical Exam Date Time Temp Pulse Resp B/P (MAP) Pulse Ox O2 Delivery O2 Flow Rate FiO2 10/04/17 17:01 71 21 110/63 (78) 10/04/17 17:00 78 13 98 10/04/17 16:47 74 21 90/29 94 10/04/17 16:45 70 18 93 10/04/17 16:31 68 18 99/63 (67) 98 10/04/17 16:30 75 29 97 10/04/17 16:16 71 20 104/65 (83) 100 10/04/17 16:15 68 18 98 10/04/17 16:01 65 18 115/59 (77) 99 10/04/17 16:00 66 18 98 10/04/17 16:00 Room Air 10/04/17 16:00 37.4 74 14 98/66 (77) 96 Room Air 10/04/17 15:46 63 17 93/71 (78) 98 10/04/17 15:45 69 10 10/04/17 15:35 67 18 98/66 (76) 97 10/04/17 15:33 69 27 89/48 (67) 99 10/04/17 15:32 66 18 78/46 (56) 99 10/04/17 15:30 64 11 93 10/04/17 14:56 64 14 126/71 (89) 96 Room Air 10/04/17 14:52 67 18 122/65 (84) 98 Room Air 10/04/17 14:47 66 14 121/67 (85) 96 Room Air 10/04/17 14:42 63 24 90/65 (73) 99 Room Air 10/04/17 14:36 66 16 97/44 (61) 95 Room Air 10/04/17 14:31 64 17 86/43 (57) 98 Room Air 10/04/17 14:27 62 17 116/67 (83) 97 Room Air 10/04/17 14:11 63 22 95/60 (72) 98 Room Air 10/04/17 14:06 66 23 90/58 (69) 98 Room Air 10/04/17 14:01 70 20 92/55 (67) 97 Room Air 10/04/17 14:00 70 27 96 Room Air 10/04/17 13:41 61 23 103/54 (70) 97 Room Air 10/04/17 13:36 71 23 88/56 (67) 98 Room Air 10/04/17 13:31 59 26 78/53 (61) 96 Room Air 10/04/17 13:21 56 13 79/60 (66) 98 Room Air 10/04/17 13:11 60 21 96/53 (67) 98 Room Air 10/04/17 13:06 60 24 102/48 (66) 97 Room Air 10/04/17 13:01 61 16 89/53 (65) 99 Room Air 10/04/17 13:00 59 21 98 Room Air 10/04/17 12:59 65 26 86/58 (67) 98 Room Air 10/04/17 12:56 61 18 94/61 (72) 98 10/04/17 12:51 68 14 91/54 (66) 96 10/04/17 12:45 60 15 98 10/04/17 12:36 64 19 78/61 (67) 90 10/04/17 12:31 63 19 74/52 (59) 97 10/04/17 12:30 53 28 97 10/04/17 12:11 69 16 81/51 (61) 95 Room Air 10/04/17 12:07 56 18 87/39 (55) 95 Room Air 10/04/17 12:02 36.6 76 18 95 10/04/17 12:01 60 72/54 (60) Room Air 10/04/17 12:00 Room Air 10/04/17 11:00 36.6 76 18 104/66 (79) 95 Room Air 10/04/17 10:00 69 20 102/69 (80) 99 Room Air 10/04/17 09:00 98 20 103/70 (81) 99 Room Air 10/04/17 08:23 38.1 118 18 103/69 (80) 99 Room Air 10/04/17 08:00 Room Air 10/04/17 05:36 124 96 10/04/17 04:20 146/86 (106) 10/04/17 04:00 BiPAP 10/04/17 03:13 36.7 95 22 113/77 (89) 96 BiPAP 10/04/17 01:56 98 92 10/04/17 00:31 37.0 88 18 121/91 (101) 95 Room Air 10/03/17 22:49 36.4 93 18 112/80 95 Room Air 10/03/17 22:01 70 20 100/68 93 Room Air 10/03/17 21:50 1/3/18 21:11 129/77 10/03/17 21:01 112/82 10/03/17 20:51 149/90 10/03/17 20:41 101/52 10/03/17 20:31 94/60 10/03/17 20:21 121/76 10/03/17 20:11 121/77 10/03/17 20:01 125/83 10/03/17 19:51 113/81 10/03/17 19:41 107/74 10/03/17 19:37 86 94 10/03/17 19:31 143/83 10/03/17 19:21 106/75 10/03/17 19:11 99/65 10/03/17 19:01 114/66 10/03/17 18:51 106/64 10/03/17 18:41 109/68 10/03/17 18:37 79 18 95 10/03/17 18:31 91/52 10/03/17 18:29 85/54 10/03/17 18:28 81 20 91/52 94 Room Air GENERAL : No acute distress EYES: No icterus, gaze conjugate. PERRL NOSE: No evidence of epistaxis MOUTH: No lesions or candidiasis NECK: Supple. No JVD LUNGS: CTA B/L, no wheezes, rales or rhonchi HEART: Regular, rate controlled at 57 beats per minute ABDOMEN: Soft, NT, ND, BS Present. Protuberant. Evidence of candidiasis in the folds EXTREMITIES: No LE edema, pedal pulses intact NEURO: A&OX3. No pronator drift. No focal findings. Laboratory Results Last 24 Hours Test 10/03/17 19:30 10/03/17 20:37 10/03/17 21:58 10/03/17 23:10 Urine Color DK YELLOW Urine Appearance CLOUDY Urine pH 5.0 Urine Specific [place] 1.028 Urine Protein 2+ Urine Glucose (UA) 3+ Urine Ketones 2+ Urine Occult Blood 2+ Urine Nitrite POS Urine Bilirubin NEG Urine Urobilinogen NEG Urine Leukocyte Esterase NEG Urine WBC (Auto) 10-30 /hpf Urine RBC (Auto) 10-30 /hpf Urine Hyaline Casts (Auto) 10-30 /lpf Urine Epithelial Cells (Auto) >30 /lpf Urine Bacteria (Auto) 3+ Urine Pathogenic Casts 5-10 GRANULAR CASTS /lpf Thyroid Stimulating Hormone (TSH) 0.768 uIu/ml Bedside Glucose 299 mg/dl Troponin I 0.068 ng/ml Triglycerides Level 198 mg/dl Cholesterol Level 154 mg/dl HDL Cholesterol 21 mg/dl LDL Cholesterol, Calculated 93 mg/dl VLDL Cholesterol, Calculated 40 mg/dl Cholesterol/HDL Ratio 7.3 Vitamin B12 Level 609 pg/mL Free Thyroxine 3.07 ng/dl Thyroxine (T4) 12.8 mcg/dl Free Triiodothyronine 2.42 pg/ml Total Triiodothyronine 0.66 ng/ml Test 10/04/17 00:30 10/04/17 04:22 10/04/17 06:15 10/04/17 06:57 Bedside Glucose 346 mg/dl 184 mg/dl 213 mg/dl White Blood Count 9.30 K/uL Red Blood Count 5.18 M/uL Hemoglobin 14.6 g/dL Hematocrit 40.6 % Mean Corpuscular Volume 78.4 fL Mean Corpuscular Hemoglobin 28.2 pg Mean Corpuscular Hemoglobin Concent 36.0 g/dl Platelet Count 232 K/uL Mean Platelet Volume 10.1 fL Neutrophils (%) (Auto) 75.0 % Lymphocytes (%) (Auto) 14.2 % Monocytes (%) (Auto) 9.7 % Eosinophils (%) (Auto) 0.5 % Basophils (%) (Auto) 0.2 % Neutrophils # (Auto) 6.97 K/uL Lymphocytes # (Auto) 1.32 K/uL Monocytes # (Auto) 0.90 K/uL Eosinophils # (Auto) 0.05 K/uL Basophils # (Auto) 0.02 K/uL RDW Standard Deviation 37.5 fL RDW Coefficient of Variation 13.2 % Immature Granulocyte % (Auto) 0.4 % Immature Granulocyte # (Auto) 0.04 K/uL Activated Partial Thromboplast Time 31.8 SECONDS Partial Thromboplastin Ratio 1.2 Sodium Level 130 mmol/L Potassium Level 3.5 mmol/L Chloride Level 96 mmol/L Carbon Dioxide Level 25 mmol/L Anion Gap 9.0 mmol/L Blood Urea Nitrogen 15 mg/dl Creatinine 0.87 mg/dl Est Creatinine Clear Calc Drug Dose 77.4 ml/min Estimated GFR () 88.2 Estimated GFR (Non- 76.1 BUN/Creatinine Ratio 17.2 Random Glucose 211 mg/dl Estimated Average Glucose 249 mg/dl Hemoglobin A1c 10.3 % Calcium Level 8.6 mg/dl Total Bilirubin 0.5 mg/dl Aspartate Amino Transf (AST/SGOT) 22 U/L Alanine Aminotransferase (ALT/SGPT) 27 U/L Alkaline Phosphatase 94 U/L Total Creatine Kinase 254 U/L Troponin I 0.060 ng/ml Total Protein 7.1 gm/dl Albumin 2.2 gm/dl Globulin 4.9 gm/dl Albumin/Globulin Ratio 0.4 Test 10/04/17 12:15 10/04/17 12:57 10/04/17 14:20 Influenza Type A (RT-PCR) Neg for Influ A Influenza Type A Antigen Neg for Influ A Influenza Type B Antigen Neg for Influ B Influenza Type B (RT-PCR) Neg for Influ B White Blood Count 11.26 K/uL Red Blood Count 4.94 M/uL Hemoglobin 13.8 g/dL Hematocrit 39.1 % Mean Corpuscular Volume 79.1 fL Mean Corpuscular Hemoglobin 27.9 pg Mean Corpuscular Hemoglobin Concent 35.3 g/dl Platelet Count 244 K/uL Mean Platelet Volume 10.6 fL Neutrophils (%) (Auto) 65.8 % Lymphocytes (%) (Auto) 22.2 % Monocytes (%) (Auto) 10.8 % Eosinophils (%) (Auto) 0.4 % Basophils (%) (Auto) 0.3 % Neutrophils # (Auto) 7.41 K/uL Lymphocytes # (Auto) 2.50 K/uL Monocytes # (Auto) 1.22 K/uL Eosinophils # (Auto) 0.04 K/uL Basophils # (Auto) 0.03 K/uL RDW Standard Deviation 38.1 fL RDW Coefficient of Variation 13.3 % Immature Granulocyte % (Auto) 0.5 % Immature Granulocyte # (Auto) 0.06 K/uL Activated Partial Thromboplast Time 44.4 SECONDS Partial Thromboplastin Ratio 1.7 Sodium Level 134 mmol/L Potassium Level 3.3 mmol/L Chloride Level 102 mmol/L Carbon Dioxide Level 23 mmol/L Anion Gap 9.0 mmol/L Blood Urea Nitrogen 19 mg/dl Creatinine 1.35 mg/dl Est Creatinine Clear Calc Drug Dose 49.9 ml/min Estimated GFR () 51.8 Estimated GFR (Non- 44.7 BUN/Creatinine Ratio 13.7 Random Glucose 142 mg/dl Calcium Level 8.6 mg/dl Total Bilirubin 0.5 mg/dl Aspartate Amino Transf (AST/SGOT) 24 U/L Alanine Aminotransferase (ALT/SGPT) 27 U/L Alkaline Phosphatase 90 U/L Total Creatine Kinase 189 U/L Creatine Kinase MB 1.5 ng/ml Creatine Kinase MB Ratio 0.8 Troponin I 0.063 ng/ml Total Protein 6.8 gm/dl Albumin 2.2 gm/dl Globulin 4.6 gm/dl Albumin/Globulin Ratio 0.5 Lactic Acid Level 1.4 mmol/L Diagnostic Results HEAD COMBO CLINICAL HISTORY: 51 years-old Female presenting with colon ca/Afib R/O brain METs before heparin, dizziness, high blood sugar. TECHNIQUE: Multidetector CT imaging of the head was performed before and after the administration of intravenous contrast. IV contrast: 115 mL of Optiray 320. A dose lowering technique was used consistent with the principles of ALARA (as low as reasonably achievable). COMPARISON: 10/04/2016. CT DOSE (mGy.cm): The estimated cumulative dose is 1203.96 mGy.cm. FINDINGS: [employer] topogram: Unremarkable. Ventricles and sulci normal in size. Brain parenchyma normal in appearance with preserved marie-white differentiation. No mass effect or midline shift. No hemorrhage or acute territorial infarct. No extra-axial fluid collection. Aerated secretions in the bilateral maxillary sinuses with partial opacification of the left sphenoid sinus and anterior ethmoid air cells. No gross evidence of osseous erosion or intraorbital extension. Postsurgical changes of the right mastoid air cells suspected. Calvarium intact. No abnormal parenchymal enhancement. Intracranial vasculature grossly patent. IMPRESSION: 1. No acute intracranial pathology. No abnormal enhancement. 2. Aerated secretions in the bilateral maxillary sinuses consistent with acute sinusitis. Electronically signed by: Riaz Blackwood M.D. 10/03/2017 10:31 PM ABDOMEN 2VIEW W/PA CHEST RTN HISTORY: 51 years-old Female Pt c/o N V acute nausea and vomiting COMPARISON: Acute abdominal series radiographs 09/29/2017 TECHNIQUE: PA view of the chest with erect and supine views of the abdomen FINDINGS: Cardiomediastinal and hilar silhouettes are within normal limits. Linear subsegmental opacity of the lateral aspect left midlung is unchanged suggesting focal area of scarring. There is no pneumothorax, pleural effusion, focal airspace consolidation or overt pulmonary edema. Bones of the chest appear grossly intact. No pneumoperitoneum on the upright projection. Bowel gas pattern is nonobstructive. Transverse colon is gas filled. Nondilated gas-filled loops of small bowel are seen within the right midabdomen. No significant air-fluid levels identified. No urolith identified. Degenerative changes of the lumbar spine are noted. IMPRESSION: 1. Nonobstructive bowel gas pattern without pneumoperitoneum. 2. No acute cardiopulmonary process. The above report was generated using voice recognition software. It may contain grammatical, syntax or spelling errors. Electronically signed by: Jayjay Crowder M.D. 10/03/2017 6:13 PM Assessment & Plan Cardiovascular: * Patient hypotensive most likely secondary to diltiazem drip initiated for new onset A. fib with RVR * Cardiology consulted * Hold diltiazem drip * Treat hypotension with fluid boluses. * Echocardiogram completed with report pending - look for right ventricular strain * Lopressor 25 mg by mouth every morning at home * Troponin 0.063 * Continue statin for dyslipidemia. LFTs within normal limits Pulmonary: * Recent diagnosis of colon cancer - higher risk for pulmonary emboli/DVT but currently does not be criteria for further CTA * Most recent CTA early August with no evidence of pulmonary emboli * Patient with ANA - continue CPAP. Family to bring in home machine * Recent PFTs with restrictive disease but no definitive data available. Continue home meds. No bronchospasm on exam * Oxygenation mid to upper 90s on room air GI: * Recent diagnosis of adenocarcinoma of rectum via colonoscopy * No chemotherapy started * Patient scheduled for surgical resection 10/18/17 * No PPI or H2 yudy at home * Start famotidine while inpatient * Continue Lactobacillus acidophilus TIDM Endocrine: * Diagnosed with grade 5/6 and started on levothyroxine in 2001 * Started 75 g daily. This was slowly increased and patient currently is on 1400 g daily * TSH 0.768, free T4 3.07, T4 12.8, free T3 2.42, total T3 0.66 * Beta hydroxybutyric acid 2.96, anion gap 9.0 * Patient with diabetes mellitus type 2 * Hemoglobin A1c 10.3 * ICU protocol for hyperglycemia order placed * Continue basal Lantus as well as NovoLog sliding scale insulin Renal: * BUN 19 * Creatinine jumped from 0.8 second toe 1.35 * Continue NSS with 20 mEq of K / liter at 75 mL per hour * Serial labs * Urine culture with gram-negative bacilli * Continue ceftriaxone * Follow urine output IV access: * Patient currently with peripheral IVs * Difficult stick but does not meet requirement for central line at this time * If persistent hypotension, consider PICC line Heme: * Hemoglobin 13.8 - most likely hemoconcentrated secondary to patient being dry * History of GI bleed * No active bleeding at this time * Platelet count 244 Electrolytes: * Hypokalemia with a potassium of 3.3 - replete in IV fluid and oral potassium chloride * Check magnesium and phosphorus level with a.m. labs * Follow serial labs ID: * Ceftriaxone for UTI - urine culture with gram-negative bacilli * Recent UTI treated with 1 g of IM ceftriaxone and 7 days of Keflex 500 mg by mouth 3 times a day * Await culture results * May require PICC line * PCR negative for influenza A or B Nutrition: * Tolerating diet * Albumin 2.2 * Newly diagnosed colon cancer * Nutrition consult DVT prophylaxis: * Initially on heparin drip but this was held secondary hypotension and concern for bleeding * Patient is at high-risk for DVT/PE secondary to newly diagnosed malignancy and sedentary activity recently * Teds/SCDs * Bilateral lower extremity duplex pending * Continue to evaluate benefit versus risk for anticoagulation * Ambulate as tolerated watching for orthostatic hypotension CCT: 65 minutes Thank you for including us in the care of this patient. Please refer to Dr. Owens's addendum for further recommendations Extended visit discussing assessment and plan with patient, , daughter, [id number], other consultants I have personally evaluated and examined this patient. I agree with assessment and plan of Ira Fuentes PA-C. During my evaluation the patient was alert and oriented. We will continue fluid administration and allow washout of the patient's antihypertensives. If this does not improve we may proceed with central venous catheter placement. I have verbally consented the patient to the risks and benefits associated with central venous catheter.
[2017-10-04] MEDS: SIMVASTATIN 40 MG TAB PO SCH (21:17)
[2017-10-04] MEDS: MONTELUKAST SOD 10 MG TAB PO SCH (21:18)
[2017-10-04] MEDS: FAMOTIDINE IV INJ 20 MG in SYRINGE 3 ML IV SCH (21:19)
[2017-10-04] MEDS: INSULIN GLARGINE SOLOSTAR 100 UNITS/ML 3 ML PEN SQ SCH (21:21)
--- NOTE | 2017-10-04 22:27 | Progress Note ---
Subjective Date of Service: Oct 04, 2017. Subjective Pt evaluation today including: conversation w/ patient, conversation w/ family , physical exam, chart review, lab review, review of studies, conversation w/ senior treasury consultant, review of inpatient medication list CODE MANPREET this AM Was diaphoretic with hypotension Transferred to ICU Problem List Medical Problems: (1) Abdominal pain Status: Acute (2) Abscess of labia majora Status: Acute (3) Acute vomiting Status: Acute (4) Cellulitis of labia majora Status: Acute (5) Hyperglycemia Status: Acute (6) Hyperglycemia due to type 2 diabetes mellitus Status: Acute (7) Hypertension Status: Acute (8) Low back pain Status: Acute (9) Morbid obesity Status: Acute (10) New onset a-fib Status: Acute (11) Pulmonary nodule Status: Acute (12) Rectal bleed Status: Acute (13) Rectal bleeding Status: Acute (14) Rectal cancer Status: Acute (15) Sepsis Status: Acute (16) Shortness of breath Status: Acute (17) Skin abscess Status: Acute (18) Urinary tract infection Status: Acute Review of Systems Constitutional: + fever, + chills, + weakness, + fatigue Eyes: No see HPI, No worsening of vision, No eye pain, No redness, No discharge , No diplopia, No problem reported Respiratory: No see HPI, No cough, No sputum, No wheezing, No shortness of breath, No dyspnea on exertion, No dyspnea at rest, No hemoptysis, No problem reported Abdomen: No see HPI, No pain, No nausea, No vomiting, No diarrhea, No constipation, No GI bleeding, No problem reported Musculoskeletal: No see HPI, No joint pain, No muscle pain, No swelling, No calf pain, No problem reported Female : No see HPI, No dysuria, No urinary frequency, No hematuria, No incontinence, No abnormal vaginal bleeding, No vaginal discharge, No problem reported Neurologic: No see HPI, No memory loss, No paralysis, No weakness, No numbness/ tingling, No vertigo, No balance problems, No problem reported Skin: No see HPI, No rash, No itch, No new/changing skin lesions, No color change, No bleeding, No problem reported Objective Vital Signs Date Time Temp Pulse Resp B/P (MAP) Pulse Ox O2 Delivery O2 Flow Rate FiO2 10/04/17 21:33 36.4 72 14 117/77 (90) 96 Room Air 18 21:31 69 28 117/77 (81) 89 18 21:30 69 27 91 18 21:01 65 27 122/77 (85) 99 18 21:00 70 27 97 18 20:31 72 27 108/79 (92) 95 18 20:30 72 27 97 18 20:01 71 24 106/77 (85) 97 18 20:00 67 22 99 18 19:31 78 27 98/68 (71) 92 10/04/17 19:30 Room Air 10/04/17 19:30 69 25 93 10/04/17 19:30 36.4 73 14 98/68 (78) 96 Room Air 10/04/17 19:01 77 32 101/70 (82) 96 10/04/17 19:00 68 23 94 10/04/17 18:31 70 25 104/59 (69) 96 10/04/17 18:30 73 24 95 18 18:01 70 16 106/66 (70) 98 10/04/17 18:00 74 19 97 10/04/17 17:31 72 20 114/71 (96) 10/04/17 17:30 77 21 97 10/04/17 17:01 71 21 110/63 (78) 10/04/17 17:00 78 13 98 10/04/17 16:47 74 21 90/29 94 10/04/17 16:45 70 18 93 10/04/17 16:31 68 18 99/63 (67) 98 10/04/17 16:30 75 29 97 18 16:16 71 20 104/65 (83) 100 10/04/17 16:15 68 18 98 10/04/17 16:01 65 18 115/59 (77) 99 18 16:00 66 18 98 10/04/17 16:00 Room Air 10/04/17 16:00 37.4 74 14 98/66 (77) 96 Room Air 10/04/17 15:46 63 17 93/71 (78) 98 10/04/17 15:45 69 10 10/04/17 15:35 67 18 98/66 (76) 97 10/04/17 15:33 69 27 89/48 (67) 99 10/04/17 15:32 66 18 78/46 (56) 99 10/04/17 15:30 64 11 93 10/04/17 14:56 64 14 126/71 (89) 96 Room Air 10/04/17 14:52 67 18 122/65 (84) 98 Room Air 10/04/17 14:47 66 14 121/67 (85) 96 Room Air 10/04/17 14:42 63 24 90/65 (73) 99 Room Air 10/04/17 14:36 66 16 97/44 (61) 95 Room Air 10/04/17 14:31 64 17 86/43 (57) 98 Room Air 10/04/17 14:27 62 17 116/67 (83) 97 Room Air 10/04/17 14:11 63 22 95/60 (72) 98 Room Air 10/04/17 14:06 66 23 90/58 (69) 98 Room Air 10/04/17 14:01 70 20 92/55 (67) 97 Room Air 10/04/17 14:00 70 27 96 Room Air 10/04/17 13:41 61 23 103/54 (70) 97 Room Air 10/04/17 13:36 71 23 88/56 (67) 98 Room Air 10/04/17 13:31 59 26 78/53 (61) 96 Room Air 10/04/17 13:21 56 13 79/60 (66) 98 Room Air 10/04/17 13:11 60 21 96/53 (67) 98 Room Air 10/04/17 13:06 60 24 102/48 (66) 97 Room Air 10/04/17 13:01 61 16 89/53 (65) 99 Room Air 10/04/17 13:00 59 21 98 Room Air 10/04/17 12:59 65 26 86/58 (67) 98 Room Air 10/04/17 12:56 61 18 94/61 (72) 98 10/04/17 12:51 68 14 91/54 (66) 96 10/04/17 12:45 60 15 98 10/04/17 12:36 64 19 78/61 (67) 90 10/04/17 12:31 63 19 74/52 (59) 97 10/04/17 12:30 53 28 97 1/4/18 12:11 69 16 81/51 (61) 95 Room Air 10/04/17 12:07 56 18 87/39 (55) 95 Room Air 10/04/17 12:02 36.6 76 18 95 10/04/17 12:01 60 72/54 (60) Room Air 10/04/17 12:00 Room Air 10/04/17 11:00 36.6 76 18 104/66 (79) 95 Room Air 10/04/17 10:00 69 20 102/69 (80) 99 Room Air 10/04/17 09:00 98 20 103/70 (81) 99 Room Air 10/04/17 08:23 38.1 118 18 103/69 (80) 99 Room Air 10/04/17 08:00 Room Air 10/04/17 05:36 124 96 10/04/17 04:20 146/86 (106) 10/04/17 04:00 BiPAP 10/04/17 03:13 36.7 95 22 113/77 (89) 96 BiPAP 10/04/17 01:56 98 92 10/04/17 00:31 37.0 88 18 121/91 (101) 95 Room Air 10/03/17 22:49 36.4 93 18 112/80 95 Room Air Physical Exam General Appearance: WD/WN, no apparent distress Eyes: normal inspection, PERRL, EOMI, sclerae normal Neck: supple, no adenopathy, thyroid normal, no JVD Respiratory/Chest: chest non-tender, lungs clear, normal breath sounds, no respiratory distress Cardiovascular: no edema, no gallop, no JVD, + irregularly irregular Abdomen: normal bowel sounds, non tender, soft, no organomegaly Extremities: normal range of motion, non-tender, normal inspection, no pedal edema Neurologic/Psychiatric: no motor/sensory deficits, alert, normal mood/affect, oriented x 3 Skin: normal color, warm/dry, no rash Lymphatic: no adenopathy Laboratory Results Last 24 Hours Test 10/03/17 23:10 10/04/17 00:30 10/04/17 04:22 10/04/17 06:15 Troponin I 0.068 ng/ml 0.060 ng/ml Triglycerides Level 198 mg/dl Cholesterol Level 154 mg/dl HDL Cholesterol 21 mg/dl LDL Cholesterol, Calculated 93 mg/dl VLDL Cholesterol, Calculated 40 mg/dl Cholesterol/HDL Ratio 7.3 Vitamin B12 Level 609 pg/mL Free Thyroxine 3.07 ng/dl Thyroxine (T4) 12.8 mcg/dl Free Triiodothyronine 2.42 pg/ml Total Triiodothyronine 0.66 ng/ml Bedside Glucose 346 mg/dl 184 mg/dl White Blood Count 9.30 K/uL Red Blood Count 5.18 M/uL Hemoglobin 14.6 g/dL Hematocrit 40.6 % Mean Corpuscular Volume 78.4 fL Mean Corpuscular Hemoglobin 28.2 pg Mean Corpuscular Hemoglobin Concent 36.0 g/dl Platelet Count 232 K/uL Mean Platelet Volume 10.1 fL Neutrophils (%) (Auto) 75.0 % Lymphocytes (%) (Auto) 14.2 % Monocytes (%) (Auto) 9.7 % Eosinophils (%) (Auto) 0.5 % Basophils (%) (Auto) 0.2 % Neutrophils # (Auto) 6.97 K/uL Lymphocytes # (Auto) 1.32 K/uL Monocytes # (Auto) 0.90 K/uL Eosinophils # (Auto) 0.05 K/uL Basophils # (Auto) 0.02 K/uL RDW Standard Deviation 37.5 fL RDW Coefficient of Variation 13.2 % Immature Granulocyte % (Auto) 0.4 % Immature Granulocyte # (Auto) 0.04 K/uL Activated Partial Thromboplast Time 31.8 SECONDS Partial Thromboplastin Ratio 1.2 Sodium Level 130 mmol/L Potassium Level 3.5 mmol/L Chloride Level 96 mmol/L Carbon Dioxide Level 25 mmol/L Anion Gap 9.0 mmol/L Blood Urea Nitrogen 15 mg/dl Creatinine 0.87 mg/dl Est Creatinine Clear Calc Drug Dose 77.4 ml/min Estimated GFR () 88.2 Estimated GFR (Non- 76.1 BUN/Creatinine Ratio 17.2 Random Glucose 211 mg/dl Estimated Average Glucose 249 mg/dl Hemoglobin A1c 10.3 % Calcium Level 8.6 mg/dl Total Bilirubin 0.5 mg/dl Aspartate Amino Transf (AST/SGOT) 22 U/L Alanine Aminotransferase (ALT/SGPT) 27 U/L Alkaline Phosphatase 94 U/L Total Creatine Kinase 254 U/L Total Protein 7.1 gm/dl Albumin 2.2 gm/dl Globulin 4.9 gm/dl Albumin/Globulin Ratio 0.4 Test 10/04/17 06:57 10/04/17 11:30 10/04/17 12:15 10/04/17 12:57 Bedside Glucose 213 mg/dl 158 mg/dl Influenza Type A (RT-PCR) Neg for Influ A Influenza Type A Antigen Neg for Influ A Influenza Type B Antigen Neg for Influ B Influenza Type B (RT-PCR) Neg for Influ B White Blood Count 11.26 K/uL Red Blood Count 4.94 M/uL Hemoglobin 13.8 g/dL Hematocrit 39.1 % Mean Corpuscular Volume 79.1 fL Mean Corpuscular Hemoglobin 27.9 pg Mean Corpuscular Hemoglobin Concent 35.3 g/dl Platelet Count 244 K/uL Mean Platelet Volume 10.6 fL Neutrophils (%) (Auto) 65.8 % Lymphocytes (%) (Auto) 22.2 % Monocytes (%) (Auto) 10.8 % Eosinophils (%) (Auto) 0.4 % Basophils (%) (Auto) 0.3 % Neutrophils # (Auto) 7.41 K/uL Lymphocytes # (Auto) 2.50 K/uL Monocytes # (Auto) 1.22 K/uL Eosinophils # (Auto) 0.04 K/uL Basophils # (Auto) 0.03 K/uL RDW Standard Deviation 38.1 fL RDW Coefficient of Variation 13.3 % Immature Granulocyte % (Auto) 0.5 % Immature Granulocyte # (Auto) 0.06 K/uL Activated Partial Thromboplast Time 44.4 SECONDS Partial Thromboplastin Ratio 1.7 Sodium Level 134 mmol/L Potassium Level 3.3 mmol/L Chloride Level 102 mmol/L Carbon Dioxide Level 23 mmol/L Anion Gap 9.0 mmol/L Blood Urea Nitrogen 19 mg/dl Creatinine 1.35 mg/dl Est Creatinine Clear Calc Drug Dose 49.9 ml/min Estimated GFR () 51.8 Estimated GFR (Non- 44.7 BUN/Creatinine Ratio 13.7 Random Glucose 142 mg/dl Calcium Level 8.6 mg/dl Total Bilirubin 0.5 mg/dl Aspartate Amino Transf (AST/SGOT) 24 U/L Alanine Aminotransferase (ALT/SGPT) 27 U/L Alkaline Phosphatase 90 U/L Total Creatine Kinase 189 U/L Creatine Kinase MB 1.5 ng/ml Creatine Kinase MB Ratio 0.8 Troponin I 0.063 ng/ml Total Protein 6.8 gm/dl Albumin 2.2 gm/dl Globulin 4.6 gm/dl Albumin/Globulin Ratio 0.5 Test 10/04/17 13:39 10/04/17 14:20 10/04/17 16:31 10/04/17 20:20 Bedside Glucose 125 mg/dl 168 mg/dl 242 mg/dl Lactic Acid Level 1.4 mmol/L Assessment and Plan 51 year old female with past medical history of dyslipidemia, hypertension, obstructive sleep apnea on CPAP, diabetes mellitus type 2 on large doses of insulin, hypothyroidism on large dose of Synthroid and newly diagnosed colon cancer possible adenocarcinoma presented to the ED with UTI, nausea vomiting and atrial fibrillation with RVR. Assessment/plan Atrial fibrillation with RVR, most likely new onset Due to bleeding risk, heparin drip stopped Appreciate cardiology recs Cardizem drip stopped due to hypotension and bradycardia Transferred to ICU, utilize fluid boluses at this time if needed for hypotension UTI present on admission Urine culture and blood culture sent Empiric ceftriaxone started Hypothyroidism with large dose of Synthroid suggesting the possibility of malabsorption of levothyroxine Patient is on 1400 g per day, decrease the dose to 400 g per day until we get TSH, T3 total and free T3, T4 total and free T4 Also on the morning we can confirm the dose from her primary care physician and 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 Diabetes mellitus uncontrolled with severe hyperglycemia Continue outpatient dose of Lantus 60 mg twice a day Sliding scale insulin Consult pharmacy Hypertension Hold blood pressure medications as blood pressure currently is low secondary to the Cardizem drip Dyslipidemia Continue statin DVT prophylaxis heparin subcutaneous until CT scan head results are back if it' s negative then patient will be started on heparin drip.
[2017-10-04] MEDS: CEFTRIAXONE SOD INJ 1 GM in DEXTROSE 5% ADD-VANTAGE 50ML 50 ML IV SCH (22:48)
[2017-10-05] VITALS (14 sets, daily range): BP systolic 100–140; BP diastolic 67–83; PULSE 72–93; TEMP 36.2–36.8; O2SAT 91–99; BMI 42.0
[2017-10-05] MEDS: LEVOTHYROXINE 200 MCG TAB PO SCH (05:28)
[2017-10-05 05:37] LABS: BASO % 0.4 %; BASO ABS # 0.04 K/uL (0-0.2); EOS % 1.7 %; EOS ABS # 0.18 K/uL (0-0.5); HEMATOCRIT 37.2 % (37-47); HEMOGLOBIN 12.8 g/dL (12.0-16.0); IG# 0.07 K/uL (0.00-0.02); LYMPH % 21.4 %; LYMPH ABS # 2.21 K/uL (1.2-3.4); MEAN CELL VOLUME 80.3 fL (80-100); MEAN CORPUSCULAR HEMOGLOBIN 27.6 pg (25-34); MEAN CORPUSCULAR HGB CONC 34.4 g/dl (32-36); MEAN PLATELET VOLUME 10.3 fL (7.4-10.4); MONO ABS # 1.03 K/uL (0.11-0.59); NEUT % 65.8 %; NEUT ABS # 6.81 K/uL (1.4-6.5); PLATELET COUNT 223 K/uL (130-400); RED CELL DISTRIBUTION WIDTH CV 13.5 % (11.5-14.5); RED CELL DISTRIBUTION WIDTH SD 39.2 fL (36.4-46.3); WHITE BLOOD COUNT 10.34 K/uL (4.8-10.8)
[2017-10-05 05:49] LABS: PTT PATIENT 20.1 SECONDS (21.0-31.0)
[2017-10-05 06:07] LABS: CALCIUM 8.6 mg/dl (8.5-10.1); CREATININE 0.77 mg/dl (0.60-1.20); PHOSPHORUS 2.4 mg/dl (2.5-4.9); POTASSIUM 3.5 mmol/L (3.5-5.1)
[2017-10-05] MEDS: INSULIN ASPART 100 UNITS/ML 3 ML PEN SC SCH ×4 (06:45→21:00)
[2017-10-05] MEDS: LACTOBACILLUS ACIDOPHILUS (FLORANEX) TAB PO SCH ×3 (08:30→16:05)
[2017-10-05] MEDS: ASPIRIN 81 MG ECTAB PO SCH (08:30)
[2017-10-05] MEDS: POTASSIUM CHLORIDE 10 MEQ TABCR PO SCH (08:33)
[2017-10-05] MEDS: VENLAFAXINE HCL XR 150 MG CAPXR PO SCH (08:33)
[2017-10-05] MEDS: ACETYLCYSTEINE 600 MG CAP PO SCH ×2 (08:33→21:18)
[2017-10-05] MEDS: GABAPENTIN 400 MG CAP PO SCH ×3 (08:33→21:19)
[2017-10-05] MEDS: LORATADINE 10 MG TAB PO SCH (08:34)
[2017-10-05] MEDS: IPRATROPIUM BROMIDE/ALBUTEROL respimat INH INH SCH ×4 (08:34→21:17)
[2017-10-05] MEDS: BUDESONIDE/FORMOTEROL FUMARATE 80/4.5 60 PUFFS/INHALER INH SCH ×2 (08:34→21:17)
[2017-10-05] MEDS: SODIUM CHLORIDE 0.65% NA SOLN 45 ML (OCEAN) SCH ×4 (08:34→21:00)
[2017-10-05] MEDS: METOPROLOL TARTRATE 25 MG TAB PO SCH (08:35)
[2017-10-05] MEDS: INSULIN GLARGINE SOLOSTAR 100 UNITS/ML 3 ML PEN SQ SCH (08:36)
[2017-10-05] MEDS: FAMOTIDINE IV INJ 20 MG in SYRINGE 3 ML IV SCH ×2 (08:59→21:20)
[2017-10-05] MEDS: NSS + 20MEQ KCL 1000ML 1,000 ML IV SCH ×2 (08:59→19:00)
[2017-10-05] MEDS ORDERED: METOPROLOL SUCC 25MG EXT REL TAB PO ONE (10:04)
--- NOTE | 2017-10-05 10:04 | Cardiology Follow-Up ---
Subjective General Date of Service: Oct 05, 2017. Chief Complaint: afib Pt evaluation today including: conversation w/ patient, physical exam, chart review, lab review, review of studies, review of inpatient medication list History of Present Illness Patient resting comfortably. Awakens to voice. Denies complaints. Denies CP/ SOB. No dizziness. BP improved. No palpitations. No orthopnea, PND or edema. No recurrent melena or hematochezia noted. 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 Clindamycin (Verified Allergy, Intermediate, HIVES, 10/03/17) Sulfa Antibiotics (Verified Allergy, Intermediate, BACTRIM-HIVES, 10/03/17) BEE STING (Verified Allergy, Unknown, HIVES, 10/03/17) Trimethoprim (Verified Allergy, Unknown, HIVES, 10/03/17) Dulaglutide (Verified Adverse Reaction, Severe, BRAND-TRULICITY, SEVERE GI UPSET, CONSTIPATION, 10/03/17) Social History Smoking Status: Never Smoker Hx Tobacco Use In Past Year?: No Hx Alcohol Use - Type And Amou: No Hx Substance Use - Type And Am: No Problem List Medical Problems: (1) Abdominal pain Status: Acute (2) Abscess of labia majora Status: Acute (3) Acute vomiting Status: Acute (4) Cellulitis of labia majora Status: Acute (5) Hyperglycemia Status: Acute (6) Hyperglycemia due to type 2 diabetes mellitus Status: Acute (7) Hypertension Status: Acute (8) Low back pain Status: Acute (9) Morbid obesity Status: Acute (10) New onset a-fib Status: Acute (11) Pulmonary nodule Status: Acute (12) Rectal bleed Status: Acute (13) Rectal bleeding Status: Acute (14) Rectal cancer Status: Acute (15) Sepsis Status: Acute (16) Shortness of breath Status: Acute (17) Skin abscess Status: Acute (18) Urinary tract infection Status: Acute Review of Systems Respiratory: No cough, No sputum, No wheezing, No shortness of breath, No hemoptysis Cardiac: No chest pain, No orthopnea, No PND, No edema, No palpitations Physical Exam Vital Signs Last Vital Signs Documentation Date Time Temp Pulse Resp B/P (MAP) Pulse Ox O2 Delivery O2 Flow Rate FiO2 10/05/17 06:01 72 22 126/77 (93) 99 10/05/17 04:00 36.6 10/05/17 04:00 CPAP 2.0 Physical Exam Constitutional: General Apperance: obese Level of Distress: NAD Head: normocephalic Eyes: Pupils: PERRLA Neck: supple Lungs: Auscultation: no wheezing, no rales/crackles, deminished air movement Cardiovascular: Heart Auscultation: no murmurs, irregular rate rhythm Extremities: no edema, pertinent finding (SCD's in place) Assessment and Plan Assessment and Plan IMPRESSION: 1. Atrial fibrillation, with RVR on admission, rates improved with IV diltiazem but developed hypotension. 2. Recent diagnosis of colorectal adenocarcinoma, upcoming colon resection. Intermittent melena/hematochezia noted. 3. Hypotensive episode likely vasovagal due to diltiazem gtt and having BM. BP improved with fluids. 4. minimal troponin elevation, not indicative of ACS. Echo stable. Likely due to afib RVR. 5. UTI 6. Hypokalemia PLAN: BP improved with IV fluids. No recurrent hypotensive episodes since yesterday. Echo with normal LV function, unchanged from prior exam. Not an anticoagulation candidate due to recent diagnosis of Colon CA and upcoming colon resection with intermittent GI bleeding. Duration of afib unknown at this itme. Recommend rate control strategy. Continue ASA 81 mg daily. Taking lopressor once daily at home, will transition to toprol xl 25 mg daily this AM. Supplement potassium. Recommend continued antibiotic therapy for UTI Case discussed with Dr. Neves. Stable cardiac symptoms to be transferred out of ICU Cardiology Attending Physician: Patient seen and examined at the bedside. BP improved with IV hydration. HR controlled. Patient denies CP, palpitations, or SOB. Resting comfortably. PE: VSS. Gen: NAD, AAOx3. Heart: Irregular, Normal S1S2. No murmur. Lungs clear B/L anteriorly. Ext: No edema. A/P: Agree with above PA-C history, physical exam, assessment and plan. Luis Daniel Neves DO, [facility] Laboratory Results Last 24 Hours Test 10/04/17 11:30 10/04/17 12:15 10/04/17 12:57 10/04/17 13:39 Bedside Glucose 158 mg/dl 125 mg/dl Influenza Type A (RT-PCR) Neg for Influ A Influenza Type A Antigen Neg for Influ A Influenza Type B Antigen Neg for Influ B Influenza Type B (RT-PCR) Neg for Influ B White Blood Count 11.26 K/uL Red Blood Count 4.94 M/uL Hemoglobin 13.8 g/dL Hematocrit 39.1 % Mean Corpuscular Volume 79.1 fL Mean Corpuscular Hemoglobin 27.9 pg Mean Corpuscular Hemoglobin Concent 35.3 g/dl Platelet Count 244 K/uL Mean Platelet Volume 10.6 fL Neutrophils (%) (Auto) 65.8 % Lymphocytes (%) (Auto) 22.2 % Monocytes (%) (Auto) 10.8 % Eosinophils (%) (Auto) 0.4 % Basophils (%) (Auto) 0.3 % Neutrophils # (Auto) 7.41 K/uL Lymphocytes # (Auto) 2.50 K/uL Monocytes # (Auto) 1.22 K/uL Eosinophils # (Auto) 0.04 K/uL Basophils # (Auto) 0.03 K/uL RDW Standard Deviation 38.1 fL RDW Coefficient of Variation 13.3 % Immature Granulocyte % (Auto) 0.5 % Immature Granulocyte # (Auto) 0.06 K/uL Activated Partial Thromboplast Time 44.4 SECONDS Partial Thromboplastin Ratio 1.7 Sodium Level 134 mmol/L Potassium Level 3.3 mmol/L Chloride Level 102 mmol/L Carbon Dioxide Level 23 mmol/L Anion Gap 9.0 mmol/L Blood Urea Nitrogen 19 mg/dl Creatinine 1.35 mg/dl Est Creatinine Clear Calc Drug Dose 49.9 ml/min Estimated GFR () 51.8 Estimated GFR (Non- 44.7 BUN/Creatinine Ratio 13.7 Random Glucose 142 mg/dl Calcium Level 8.6 mg/dl Total Bilirubin 0.5 mg/dl Aspartate Amino Transf (AST/SGOT) 24 U/L Alanine Aminotransferase (ALT/SGPT) 27 U/L Alkaline Phosphatase 90 U/L Total Creatine Kinase 189 U/L Creatine Kinase MB 1.5 ng/ml Creatine Kinase MB Ratio 0.8 Troponin I 0.063 ng/ml Total Protein 6.8 gm/dl Albumin 2.2 gm/dl Globulin 4.6 gm/dl Albumin/Globulin Ratio 0.5 Test 10/04/17 14:20 10/04/17 16:31 10/04/17 20:20 10/04/17 23:37 Lactic Acid Level 1.4 mmol/L Bedside Glucose 168 mg/dl 242 mg/dl 143 mg/dl Test 10/05/17 05:14 10/05/17 06:20 10/05/17 06:41 White Blood Count 10.34 K/uL Red Blood Count 4.63 M/uL Hemoglobin 12.8 g/dL Hematocrit 37.2 % Mean Corpuscular Volume 80.3 fL Mean Corpuscular Hemoglobin 27.6 pg Mean Corpuscular Hemoglobin Concent 34.4 g/dl Platelet Count 223 K/uL Mean Platelet Volume 10.3 fL Neutrophils (%) (Auto) 65.8 % Lymphocytes (%) (Auto) 21.4 % Monocytes (%) (Auto) 10.0 % Eosinophils (%) (Auto) 1.7 % Basophils (%) (Auto) 0.4 % Neutrophils # (Auto) 6.81 K/uL Lymphocytes # (Auto) 2.21 K/uL Monocytes # (Auto) 1.03 K/uL Eosinophils # (Auto) 0.18 K/uL Basophils # (Auto) 0.04 K/uL RDW Standard Deviation 39.2 fL RDW Coefficient of Variation 13.5 % Immature Granulocyte % (Auto) 0.7 % Immature Granulocyte # (Auto) 0.07 K/uL Activated Partial Thromboplast Time 20.1 SECONDS Partial Thromboplastin Ratio 0.8 Sodium Level 139 mmol/L Potassium Level 3.5 mmol/L Chloride Level 109 mmol/L Carbon Dioxide Level 24 mmol/L Anion Gap 6.0 mmol/L Blood Urea Nitrogen 16 mg/dl Creatinine 0.77 mg/dl Est Creatinine Clear Calc Drug Dose 87.5 ml/min Estimated GFR () 102.2 Estimated GFR (Non- 88.2 BUN/Creatinine Ratio 20.9 Random Glucose 61 mg/dl Calcium Level 8.6 mg/dl Phosphorus Level 2.4 mg/dl Magnesium Level 1.8 mg/dl Procalcitonin 1.34 ng/ml Bedside Glucose 60 mg/dl 98 mg/dl
--- NOTE | 2017-10-05 12:23 | Pharmacy Progress Note ---
Glycemic Control Progress Note Date of Service Oct 05, 2017. Scope Glycemic Pharmacist consulted for glycemic control to write orders per [facility] inpatient glycemic control protocol. Objective Accuchecks BSG (last 24hrs): Test 10/04/17 12:57 10/04/17 13:39 10/04/17 16:31 10/04/17 20:20 Random Glucose 142 mg/dl (70-99) Bedside Glucose 125 mg/dl (70-90) 168 mg/dl (70-90) 242 mg/dl (70-90) Test 10/04/17 23:37 10/05/17 05:14 10/05/17 06:20 10/05/17 06:41 Bedside Glucose 143 mg/dl (70-90) 60 mg/dl (70-90) 98 mg/dl (70-90) Random Glucose 61 mg/dl (70-99) HbA1c: Test 10/04/17 06:15 Hemoglobin A1c 10.3 % (4.5-5.6) H Recent Pertinent Medications The patient is currently receiving: * Basal insulin: Lantus SQ BID per scale: 30 units if BSG less than 120, 40 units if BSG 120-160, 50 units if BSG above 160 * Correctional Insulin: Novolog Correction per scale ACHS Goal Range: Low 120 mg/dL - High 160 mg/dL Correction Factor: 20 mg/dL/unit * Prandial insulin: Per carb ratio of 1 unit per 7 grams CHO consumed * Oral Agents: None currently Outpatient Anti-Diabetic Meds Toujeo 60 units SQ BID Novolog 8-12 units w/ meals and sliding scale Recently on a prednisone taper from last admit that stopped 10/01/17 Assessment & Plan ASSESSMENT: 10/05/17 * Poorly controlled type 2 diabetic w/ new onset A fib w/ RVR, transferred to ICU last night secondary to hypotension (possibly related to diltiazem IV administration) * Patient developed mild fasting hypoglycemia this AM, likely due to excessive basal insulin. She had 90 units of basal insulin on board this AM. Will continue to titrate the basal dose down and utilize a scale for evening dose tonight. Basal requirements appeared to be ~50-60 units/day in the past. * Post-prandial BSGs controlled with current CF and CR on prior admission. Will continue the same for now. PLAN FOR INPATIENT GLYCEMIC CONTROL: * Decreasing Lantus SQ BID to: 15 units if BSG less than 120, 25 units if BSG 120-160, 35 units if BSG above 160 * Continuing correction factor 20 mg/dl/unit * Continuing carb ratio of 1 unit per 7 grams CHO consumed * Continuing goal range of Low 120 mg/dL - High 160 mg/dL * Please note that the plan above was derived based on current level of insulin resistance and hospital stress. These recommendations are appropriate for inpatient admission only. Plan of care upon discharge will need to be reassessed to avoid potential outpatient hypo/hyperglycemia. Thank you.
[2017-10-05] MEDS ORDERED: MAGNESIUM OXIDE 400 MG TAB PO ONE (14:07)
[2017-10-05] MEDS ORDERED: POTASSIUM CHLORIDE 20 MEQ TABCR PO STA (14:07)
--- NOTE | 2017-10-05 15:59 | Critical Care Progress Note ---
Critical Care Progress Note Date of Service Oct 05, 2017. ICU Day ICU Day Number: [address] Owens Subjective Patient sitting in bedside chair. Patient ate some breakfast this morning no nausea or vomiting. No extremity edema improved. No chest pain or tightness. Unaware of any arrhythmia or palpitations. Denies fever or chills. Denies any significant sputum production. No new acute complaints Objective Vital Signs - as noted below Laboratory Data - as noted below Physical Exam: General - NAD. Eyes - No icterus, gaze conjugate. PERRL ENT - Mucosa moist, no lesions or candidiasis Neck - Supple, No JVD Lungs - No bronchospasm, rales, or rhonchi. Decreased breath sounds globally Heart - irregular irregular, rate 90 bpm Abdomen - Soft, NT, ND, BS present Extremities - No edema, pedal pulses intact Neuro - A&OX3 Current SOFA Score SOFA Score Response (Comments) Value Platelets (x10) > 150 0 Bilirubin (mg/dL) < 1.2 0 [place] Coma Score 15 0 Level of Hypotension No Hypotension 0 Creatinine (mg/dL) < 1.2 0 Total 0 Assessment & Plan Cardiovascular: * Patient hypotensive yesterday but resolved today - diltiazem drip held. Normal saline bolus of 250 mL 2. Placed on NSS with 20 K+ 75 ml/hr * Cardiology consulted and following * No further hypertension * Echocardiogram with no mention of right ventricular strain. LVEF 55-60% no significant valvular disorder * Lopressor 25 mg by mouth every morning at home - discontinue this and change to Toprol-XL 25 mg by mouth daily * Troponin 0.063 * Continue statin for dyslipidemia. LFTs within normal limits Pulmonary: * Recent diagnosis of adenocarcinoma of the rectum- higher risk for pulmonary emboli/DVT but currently does not be criteria for further CTA * Most recent CTA early August with no evidence of pulmonary emboli * Patient with ANA - continue CPAP. Family to bring in home machine * Recent PFTs with restrictive disease but no definitive data available. Continue home meds. No bronchospasm on exam * Oxygenation mid to upper 90s on room air GI: * Recent diagnosis of adenocarcinoma of rectum via colonoscopy * No chemotherapy started * Patient scheduled for surgical resection 10/18/17 * No PPI or H2 yudy at home * Continue famotidine while inpatient * Continue Lactobacillus acidophilus TIDM Endocrine: * Diagnosed with grade 5/6 and started on levothyroxine in 2001 * Started 75 g daily. This was slowly increased and patient currently is on 1400 g daily * TSH 0.768, free T4 3.07, T4 12.8, free T3 2.42, total T3 0.66 * Beta hydroxybutyric acid 2.96, anion gap 9.0 * Patient with diabetes mellitus type 2 * Hemoglobin A1c 10.3 * ICU protocol for hyperglycemia order placed * Continue basal Lantus as well as NovoLog sliding scale insulin Renal: * BUN 16 * Creatinine now 0.77 * Continue NSS with 20 mEq of K / liter at 75 mL per hour * Serial labs * Urine culture with Escherichia coli sensitive to ceftriaxone * Continue ceftriaxone * Follow urine output IV access: * Patient currently with peripheral IVs Heme: * Hemoglobin 12.8 * History of GI bleed * No active bleeding at this time * Platelet count 223 Electrolytes: * Hypokalemia with a potassium of 3.5 - replete in IV fluid and oral potassium chloride * Magnesium 1.8 * Phosphorus 2.4 * Follow serial labs ID: * Ceftriaxone for UTI - urine culture with Escherichia coli * Recent UTI treated with 1 g of IM ceftriaxone and 7 days of Keflex 500 mg by mouth 3 times a day * Blood cultures 2 negative * MRSA screening negative * May require PICC line * PCR negative for influenza A or B Nutrition: * Tolerating diet * Albumin 2.2 * Newly diagnosed colon cancer * Nutrition consult DVT prophylaxis: * Initially on heparin drip but this was held secondary hypotension and concern for bleeding - cardiology to manage * Patient is at high-risk for DVT/PE secondary to newly diagnosed malignancy and sedentary activity recently * Teds/SCDs * Bilateral lower extremity duplex with no evidence of DVT * Continue to evaluate benefit versus risk for anticoagulation * Ambulate as tolerated with assistance CCT: 0 minutes. Level II inpatient bill Thank you for including us in the care of this patient. Please refer to Dr. Owens's addendum for further recommendations I have personally evaluated and examined this patient. I agree with assessment and plan of Ira Fuentes PA-C. During my evaluation the patient was not having any chest pain, felt greatly improved stable for downgrade out of the ICU. Consults & Procedures Consultants: Cardiology - Dr. Neves Procedures: IV fluid and medication administration Data Medications: Current Inpatient Medications Medications (Trade) Dose Ordered Sig/Viviana Route Start Time Stop Time Status Last Admin Dose Admin Acetaminophen (Tylenol Tab) 650 mg Q4H PRN PO 10/03/17 20:30 11/02/17 20:29 10/04/17 09:42 650 MG Al Hydrox/Mg Hydrox/Simethicone (Maalox Max Susp) 15 ml Q4H PRN PO 10/03/17 20:30 11/02/17 20:29 Magnesium Hydroxide (Milk Of Magnesia Susp) 30 ml Q12H PRN PO 10/03/17 20:30 11/02/17 20:29 Ondansetron HCl (Zofran Inj) 4 mg Q6H PRN IV 10/03/17 20:30 11/02/17 20:29 Polyethylene (Miralax Powder Packet) 17 gm DAILY PRN PO 10/03/17 20:30 11/02/17 20:29 Glucose (Glucose 40% Gel) 15-30 GRAMS 15 GRAMS... UD PRN PO 10/03/17 20:30 11/02/17 20:29 Glucose (Glucose Chew Tab) 4-8 Tablets 4 Tabl... UD PRN PO 10/03/17 20:30 11/02/17 20:29 Dextrose (Dextrose 50% 50ML Syringe) 25-50ML OF 50% DW IV FOR... UD PRN IV 10/03/17 20:30 11/02/17 20:29 Glucagon (Glucagon Inj) 1 mg UD PRN SQ 10/03/17 20:30 11/02/17 20:29 Albuterol (Ventolin Hfa Inhaler) 2 puffs Q6H PRN INH 10/03/17 20:30 11/02/17 20:29 Aspirin (Ecotrin Tab) 81 mg QAM PO 10/04/17 09:00 11/03/17 08:59 10/05/17 08:30 81 MG Budesonide/ Formoterol Fumarate (Symbicort 80/ 4.5 Inh) 2 puffs BID INH 10/03/17 21:00 11/02/17 20:59 10/05/17 08:34 2 PUFFS Gabapentin (Neurontin Cap) 400 mg TID PO 10/03/17 21:00 11/02/17 20:59 10/05/17 12:59 400 MG Albuterol/ Ipratropium (Combivent Respimat Inh) 1 puffs QID INH 10/03/17 21:00 11/02/17 20:59 10/05/17 12:59 1 PUFFS Lisinopril (Zestril Tab) 5 mg QAM PO 10/04/17 09:00 11/03/17 08:59 Future Hold 10/04/17 09:32 5 MG Loratadine (Claritin Tab) 10 mg QAM PO 10/04/17 09:00 11/03/17 08:59 10/05/17 08:34 10 MG Meclizine HCl (Antivert Tab) 25 mg TID PRN PO 10/03/17 20:30 11/02/17 20:29 10/04/17 09:32 25 MG Montelukast Sodium (Singulair Tab) 10 mg HS PO 10/03/17 21:00 11/02/17 20:59 10/04/17 21:18 10 MG Nitroglycerin (Nitrostat Tab) 0.4 mg UD PRN UT 10/03/17 20:30 11/02/17 20:29 Ondansetron HCl (Zofran Tab) 8 mg Q6 PRN PO 10/03/17 20:30 11/02/17 20:29 10/04/17 09:34 8 MG Potassium Chloride (Klor-Con M10) 10 meq QAM PO 10/04/17 09:00 11/03/17 08:59 10/05/17 08:33 10 MEQ Simvastatin (Zocor Tab) 40 mg QPM PO 10/03/17 21:00 11/02/17 20:59 10/04/17 21:17 40 MG Venlafaxine HCl (effeXOR EXTENDED REL CAP) 150 mg QAM PO 10/04/17 09:00 11/03/17 08:59 10/05/17 08:33 150 MG Potassium Chloride/Sodium Chloride 1,000 ml @ 100 mls/hr Q10H IV 10/03/17 23:00 11/02/17 22:59 10/05/17 08:59 100 MLS/HR Ceftriaxone Sodium 1 gm/ Dextrose 50 ml @ 100 mls/hr Q24H IV 10/03/17 23:00 10/13/17 22:59 10/04/17 22:48 100 MLS/HR Lactobacillus Acidophilus (Floranex Tab) 4 tab TIDM PO 10/04/17 07:30 11/03/17 07:59 10/05/17 10:47 4 TAB Ioversol (Optiray 320) 100 ml UD PRN IV 10/03/17 22:00 10/07/17 21:59 Insulin Aspart (novoLOG ASPART) SLIDING SCALE If C... ACHS SC 10/04/17 00:30 11/03/17 00:29 10/05/17 12:58 16 UNITS Miscellaneous Information (Consult Glycemic Management Pharmacy) 1 ea UD PRN N/A 10/04/17 00:26 11/03/17 00:25 Acetylcysteine (Acetylcysteine Cap) 600 mg BID PO 10/04/17 00:30 11/03/17 00:29 10/05/17 08:33 600 MG Sodium Chloride ([place] Nasal [place]) 2 sprays QID NA 10/04/17 09:00 11/03/17 08:59 Diltiazem HCl 125 mg/Dextrose 125 ml @ 0 mls/hr Q0M PRN IV 10/04/17 05:15 11/03/17 05:14 10/04/17 05:31 5 MLS/HR Insulin Glargine (Lantus Solostar Pen) see protocol text BID SQ 10/04/17 21:00 11/03/17 20:59 10/05/17 08:36 15 UNITS Levothyroxine Sodium (Synthroid Tab) 1,400 mcg DAILYBB PO 10/05/17 06:00 11/04/17 05:59 10/05/17 05:28 1,400 MCG Miscellaneous Information (Icu Protocol For Hyperglycemia) 1 ea PRN PRN N/A 10/04/17 18:00 10/06/17 17:59 Famotidine 20 mg/ Syringe 5 ml @ 2.5 mls/min Q12H IV 10/04/17 21:00 11/03/17 20:59 10/05/17 08:59 2.5 MLS/MIN Metoprolol Succinate (Toprol Xl Tab) 25 mg QAM PO 10/06/17 09:00 11/05/17 08:59 Magnesium Oxide (Mag-Ox Tab) 400 mg QAM PO 10/06/17 09:00 11/05/17 08:59 I & O: 24-Hour Column 10/06/17 08:00 Intake Total 1570 ml Output Total 800 ml Balance 770 ml Vital Signs: Date Time Temp Pulse Resp B/P (MAP) Pulse Ox O2 Delivery O2 Flow Rate FiO2 10/05/17 12:00 36.4 90 23 102/73 (83) 95 Room Air 10/05/17 12:00 Nasal Cannula 2.0 10/05/17 10:00 88 35 129/83 (98) 98 Room Air 10/05/17 08:00 36.8 93 24 140/82 (101) 98 Room Air 10/05/17 08:00 Nasal Cannula 2.0 10/05/17 06:01 72 22 126/77 (93) 99 10/05/17 05:01 77 23 119/70 (95) 91 10/05/17 04:18 80 18 112/75 (90) 95 10/05/17 04:00 36.6 10/05/17 04:00 98 CPAP 2.0 10/05/17 03:01 77 25 117/73 (91) 92 10/05/17 02:01 80 17 102/78 (82) 98 10/05/17 01:01 73 24 112/70 (91) 96 10/05/17 00:01 77 27 100/69 (82) 96 10/05/17 00:01 36.6 10/04/17 23:59 93 CPAP 2.0 10/04/17 23:40 2.0 10/04/17 23:01 62 93 10/04/17 23:01 83 19 99/78 (83) 91 10/04/17 21:33 36.4 72 14 117/77 (90) 96 Room Air 10/04/17 21:31 69 28 117/77 (81) 89 10/04/17 21:30 69 27 91 10/04/17 21:01 65 27 122/77 (85) 99 10/04/17 21:00 70 27 97 10/04/17 20:31 72 27 108/79 (92) 95 10/04/17 20:30 72 27 97 10/04/17 20:01 71 24 106/77 (85) 97 10/04/17 20:00 67 22 99 10/04/17 19:31 78 27 98/68 (71) 92 10/04/17 19:30 Room Air 10/04/17 19:30 69 25 93 10/04/17 19:30 36.4 73 14 98/68 (78) 96 Room Air 10/04/17 19:01 77 32 101/70 (82) 96 10/04/17 19:00 68 23 94 10/04/17 18:31 70 25 104/59 (69) 96 10/04/17 18:30 73 24 95 10/04/17 18:01 70 16 106/66 (70) 98 10/04/17 18:00 74 19 97 10/04/17 17:31 72 20 114/71 (96) 10/04/17 17:30 77 21 97 10/04/17 17:01 71 21 110/63 (78) 10/04/17 17:00 78 13 98 10/04/17 16:47 74 21 90/29 94 10/04/17 16:45 70 18 93 10/04/17 16:31 68 18 99/63 (67) 98 10/04/17 16:30 75 29 97 10/04/17 16:16 71 20 104/65 (83) 100 10/04/17 16:15 68 18 98 10/04/17 16:01 65 18 115/59 (77) 99 10/04/17 16:00 66 18 98 10/04/17 16:00 Room Air 10/04/17 16:00 37.4 74 14 98/66 (77) 96 Room Air Laboratory Results: Last 24 Hours Test 10/04/17 16:31 10/04/17 20:20 10/04/17 23:37 10/05/17 05:14 Bedside Glucose 168 mg/dl 242 mg/dl 143 mg/dl White Blood Count 10.34 K/uL Red Blood Count 4.63 M/uL Hemoglobin 12.8 g/dL Hematocrit 37.2 % Mean Corpuscular Volume 80.3 fL Mean Corpuscular Hemoglobin 27.6 pg Mean Corpuscular Hemoglobin Concent 34.4 g/dl Platelet Count 223 K/uL Mean Platelet Volume 10.3 fL Neutrophils (%) (Auto) 65.8 % Lymphocytes (%) (Auto) 21.4 % Monocytes (%) (Auto) 10.0 % Eosinophils (%) (Auto) 1.7 % Basophils (%) (Auto) 0.4 % Neutrophils # (Auto) 6.81 K/uL Lymphocytes # (Auto) 2.21 K/uL Monocytes # (Auto) 1.03 K/uL Eosinophils # (Auto) 0.18 K/uL Basophils # (Auto) 0.04 K/uL RDW Standard Deviation 39.2 fL RDW Coefficient of Variation 13.5 % Immature Granulocyte % (Auto) 0.7 % Immature Granulocyte # (Auto) 0.07 K/uL Activated Partial Thromboplast Time 20.1 SECONDS Partial Thromboplastin Ratio 0.8 Sodium Level 139 mmol/L Potassium Level 3.5 mmol/L Chloride Level 109 mmol/L Carbon Dioxide Level 24 mmol/L Anion Gap 6.0 mmol/L Blood Urea Nitrogen 16 mg/dl Creatinine 0.77 mg/dl Est Creatinine Clear Calc Drug Dose 87.5 ml/min Estimated GFR () 102.2 Estimated GFR (Non- 88.2 BUN/Creatinine Ratio 20.9 Random Glucose 61 mg/dl Calcium Level 8.6 mg/dl Phosphorus Level 2.4 mg/dl Magnesium Level 1.8 mg/dl Procalcitonin 1.34 ng/ml Test 10/05/17 06:20 10/05/17 06:41 10/05/17 11:20 Bedside Glucose 60 mg/dl 98 mg/dl 299 mg/dl
[2017-10-05] MEDS ORDERED: PHARMACY GLYCEMIC MGMT CONSULT STA (16:28)
[2017-10-05] MEDS ORDERED: NURSING VERBAL MED ORDER ONE (16:45)
[2017-10-05] MEDS ORDERED: NovoLOG PER UNIT CHARGE SC SCH (16:45)
[2017-10-05] MEDS ORDERED: INSULIN GLARGINE SOLOSTAR 100 UNITS/ML 3 ML PEN SC ONE (17:30)
--- NOTE | 2017-10-05 21:09 | Progress Note ---
Subjective Date of Service: Oct 05, 2017. Subjective Pt evaluation today including: conversation w/ patient, physical exam, chart review, lab review, review of studies, conversation w/ [facility] consultant, review of inpatient medication list Resting comfortably in bed No complaints Feeling weak Transferred to tele status Problem List Medical Problems: (1) Abdominal pain Status: Acute (2) Abscess of labia majora Status: Acute (3) Acute vomiting Status: Acute (4) Cellulitis of labia majora Status: Acute (5) Hyperglycemia Status: Acute (6) Hyperglycemia due to type 2 diabetes mellitus Status: Acute (7) Hypertension Status: Acute (8) Low back pain Status: Acute (9) Morbid obesity Status: Acute (10) New onset a-fib Status: Acute (11) Pulmonary nodule Status: Acute (12) Rectal bleed Status: Acute (13) Rectal bleeding Status: Acute (14) Rectal cancer Status: Acute (15) Sepsis Status: Acute (16) Shortness of breath Status: Acute (17) Skin abscess Status: Acute (18) Urinary tract infection Status: Acute Review of Systems Constitutional: No see HPI, No fever, No chills, No sweats, No weight loss, No weakness, No fatigue, No problem reported ENT: No see HPI, No hearing loss, No unusual epistaxis, No nasal symptoms, No sore throat, No tinnitus, No dental problems, No trouble swallowing, No problem reported Respiratory: No see HPI, No cough, No sputum, No wheezing, No shortness of breath, No dyspnea on exertion, No dyspnea at rest, No hemoptysis, No problem reported Cardiac: No see HPI, No chest pain, No orthopnea, No PND, No edema, No claudication, No palpitations, No problem reported Abdomen: No see HPI, No pain, No nausea, No vomiting, No diarrhea, No constipation, No GI bleeding, No problem reported Musculoskeletal: No see HPI, No joint pain, No muscle pain, No swelling, No calf pain, No problem reported Female : No see HPI, No dysuria, No urinary frequency, No hematuria, No incontinence, No abnormal vaginal bleeding, No vaginal discharge, No problem reported Neurologic: No see HPI, No memory loss, No paralysis, No weakness, No numbness/ tingling, No vertigo, No balance problems, No problem reported Psychiatric: No see HPI, No depression symptoms, No anhedonism, No anxiety, No insomnia, No substance abuse, No problem reported Skin: No see HPI, No rash, No itch, No new/changing skin lesions, No color change, No bleeding, No problem reported Objective Vital Signs Date Time Temp Pulse Resp B/P (MAP) Pulse Ox O2 Delivery O2 Flow Rate FiO2 10/05/17 19:35 36.2 74 21 132/79 (96) 97 Room Air 10/05/17 16:00 36.4 75 17 111/67 (82) 96 Room Air 10/05/17 12:00 36.4 90 23 102/73 (83) 95 Room Air 10/05/17 12:00 Nasal Cannula 2.0 10/05/17 10:00 88 35 129/83 (98) 98 Room Air 10/05/17 08:00 36.8 93 24 140/82 (101) 98 Room Air 10/05/17 08:00 Nasal Cannula 2.0 10/05/17 06:01 72 22 126/77 (93) 99 10/05/17 05:01 77 23 119/70 (95) 91 10/05/17 04:18 80 18 112/75 (90) 95 10/05/17 04:00 36.6 10/05/17 04:00 98 CPAP 2.0 10/05/17 03:01 77 25 117/73 (91) 92 10/05/17 02:01 80 17 102/78 (82) 98 10/05/17 01:01 73 24 112/70 (91) 96 10/05/17 00:01 77 27 100/69 (82) 96 10/05/17 00:01 36.6 10/04/17 23:59 93 CPAP 2.0 10/04/17 23:40 2.0 10/04/17 23:01 62 93 10/04/17 23:01 83 19 99/78 (83) 91 10/04/17 21:33 36.4 72 14 117/77 (90) 96 Room Air 10/04/17 21:31 69 28 117/77 (81) 89 10/04/17 21:30 69 27 91 Physical Exam General Appearance: WD/WN, no apparent distress Neck: supple, no adenopathy, thyroid normal, no JVD Respiratory/Chest: chest non-tender, lungs clear, normal breath sounds, no respiratory distress Cardiovascular: regular rate, rhythm, no edema, no gallop, no JVD Abdomen: normal bowel sounds, non tender, soft, no organomegaly Extremities: normal range of motion, non-tender, normal inspection, no pedal edema Neurologic/Psychiatric: no motor/sensory deficits, alert, normal mood/affect, oriented x 3 Skin: normal color, warm/dry, no rash Lymphatic: no adenopathy Laboratory Results Last 24 Hours Test 10/04/17 23:37 10/05/17 05:14 10/05/17 06:20 10/05/17 06:41 Bedside Glucose 143 mg/dl 60 mg/dl 98 mg/dl White Blood Count 10.34 K/uL Red Blood Count 4.63 M/uL Hemoglobin 12.8 g/dL Hematocrit 37.2 % Mean Corpuscular Volume 80.3 fL Mean Corpuscular Hemoglobin 27.6 pg Mean Corpuscular Hemoglobin Concent 34.4 g/dl Platelet Count 223 K/uL Mean Platelet Volume 10.3 fL Neutrophils (%) (Auto) 65.8 % Lymphocytes (%) (Auto) 21.4 % Monocytes (%) (Auto) 10.0 % Eosinophils (%) (Auto) 1.7 % Basophils (%) (Auto) 0.4 % Neutrophils # (Auto) 6.81 K/uL Lymphocytes # (Auto) 2.21 K/uL Monocytes # (Auto) 1.03 K/uL Eosinophils # (Auto) 0.18 K/uL Basophils # (Auto) 0.04 K/uL RDW Standard Deviation 39.2 fL RDW Coefficient of Variation 13.5 % Immature Granulocyte % (Auto) 0.7 % Immature Granulocyte # (Auto) 0.07 K/uL Activated Partial Thromboplast Time 20.1 SECONDS Partial Thromboplastin Ratio 0.8 Sodium Level 139 mmol/L Potassium Level 3.5 mmol/L Chloride Level 109 mmol/L Carbon Dioxide Level 24 mmol/L Anion Gap 6.0 mmol/L Blood Urea Nitrogen 16 mg/dl Creatinine 0.77 mg/dl Est Creatinine Clear Calc Drug Dose 87.5 ml/min Estimated GFR () 102.2 Estimated GFR (Non- 88.2 BUN/Creatinine Ratio 20.9 Random Glucose 61 mg/dl Calcium Level 8.6 mg/dl Phosphorus Level 2.4 mg/dl Magnesium Level 1.8 mg/dl Procalcitonin 1.34 ng/ml Test 10/05/17 11:20 10/05/17 19:00 Bedside Glucose 299 mg/dl Stool Occult Blood POSITIVE Assessment and Plan 51 year old female with past medical history of dyslipidemia, hypertension, obstructive sleep apnea on CPAP, diabetes mellitus type 2 on large doses of insulin, hypothyroidism on large dose of Synthroid and newly diagnosed colon cancer possible adenocarcinoma presented to the ED with UTI, nausea vomiting and atrial fibrillation with RVR. Assessment/plan Atrial fibrillation with RVR, most likely new onset Due to bleeding risk, heparin drip stopped Appreciate cardiology recs Cardizem drip stopped due to hypotension and bradycardia Transferred to ICU, utilize fluid boluses at this time if needed for hypotension Sepsis not POA due to UTI Urine culture and blood culture sent, urine cx pos for ecoli Empiric ceftriaxone started Hypothyroidism with large dose of Synthroid suggesting the possibility of malabsorption of levothyroxine Patient is on 1400 g per day, decrease the dose to 400 g per day until we get TSH, T3 total and free T3, T4 total and free T4 Also on the morning we can confirm the dose from 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 Diabetes mellitus uncontrolled with severe hyperglycemia Continue outpatient dose of Lantus 60 mg twice a day Sliding scale insulin Consult pharmacy Hypertension Hold blood pressure medications as blood pressure currently is low secondary to the Cardizem drip Dyslipidemia Continue statin DVT prophylaxis heparin subcutaneous until CT scan head results are back if it' s negative then patient will be started on heparin drip.
[2017-10-05] MEDS: SIMVASTATIN 40 MG TAB PO SCH (21:19)
[2017-10-05] MEDS: MONTELUKAST SOD 10 MG TAB PO SCH (21:19)
[2017-10-05] MEDS: CEFTRIAXONE SOD INJ 1 GM in DEXTROSE 5% ADD-VANTAGE 50ML 50 ML IV SCH (23:59)
[2017-10-06] VITALS (15 sets, daily range): BP systolic 108–146; BP diastolic 72–106; PULSE 78–96; TEMP 36.3–37.1; O2SAT 92–100
[2017-10-06] MEDS ORDERED: INSULIN ASPART 100 UNITS/ML 3 ML PEN SC SCH (02:00)
[2017-10-06] MEDS: NSS + 20MEQ KCL 1000ML 1,000 ML IV SCH ×2 (05:41→16:29)
[2017-10-06] MEDS: LEVOTHYROXINE 200 MCG TAB PO SCH (05:41)
[2017-10-06 06:22] LABS: HEMATOCRIT 38.2 % (37-47); HEMOGLOBIN 12.6 g/dL (12.0-16.0); MEAN CELL VOLUME 81.4 fL (80-100); MEAN CORPUSCULAR HEMOGLOBIN 26.9 pg (25-34); MEAN PLATELET VOLUME 10.5 fL (7.4-10.4); PLATELET COUNT 270 K/uL (130-400); RED CELL DISTRIBUTION WIDTH CV 13.6 % (11.5-14.5); WHITE BLOOD COUNT 9.79 K/uL (4.8-10.8)
[2017-10-06 06:28] LABS: PTT PATIENT 22.3 SECONDS (21.0-31.0)
[2017-10-06 06:44] LABS: BASO % 0.6 %; BASO ABS # 0.06 K/uL (0-0.2); EOS % 3.2 %; EOS ABS # 0.31 K/uL (0-0.5); IG# 0.13 K/uL (0.00-0.02); LYMPH % 37.3 %; LYMPH ABS # 3.65 K/uL (1.2-3.4); MONO % 8.9 %; MONO ABS # 0.87 K/uL (0.11-0.59); NEUT % 48.7 %; NEUT ABS # 4.77 K/uL (1.4-6.5)
[2017-10-06 06:46] LABS: CALCIUM 8.8 mg/dl (8.5-10.1); CREATININE 0.68 mg/dl (0.60-1.20); POTASSIUM 4.8 mmol/L (3.5-5.1)
[2017-10-06] MEDS: METOPROLOL SUCC 25MG EXT REL TAB PO SCH (08:03)
[2017-10-06] MEDS: LACTOBACILLUS ACIDOPHILUS (FLORANEX) TAB PO SCH ×3 (08:03→16:28)
[2017-10-06] MEDS: POTASSIUM CHLORIDE 10 MEQ TABCR PO SCH (08:04)
[2017-10-06] MEDS: VENLAFAXINE HCL XR 150 MG CAPXR PO SCH (08:04)
[2017-10-06] MEDS: LORATADINE 10 MG TAB PO SCH (08:05)
[2017-10-06] MEDS: ACETYLCYSTEINE 600 MG CAP PO SCH ×2 (08:05→20:31)
[2017-10-06] MEDS: MAGNESIUM OXIDE 400 MG TAB PO SCH (08:05)
[2017-10-06] MEDS: ASPIRIN 81 MG ECTAB PO SCH (08:06)
[2017-10-06] MEDS: BUDESONIDE/FORMOTEROL FUMARATE 80/4.5 60 PUFFS/INHALER INH SCH ×2 (08:06→20:33)
[2017-10-06] MEDS: IPRATROPIUM BROMIDE/ALBUTEROL respimat INH INH SCH ×4 (08:06→20:33)
[2017-10-06] MEDS: INSULIN ASPART 100 UNITS/ML 3 ML PEN SC SCH ×4 (08:13→20:32)
[2017-10-06] MEDS: SODIUM CHLORIDE 0.65% NA SOLN 45 ML (OCEAN) SCH ×4 (08:15→20:33)
[2017-10-06] MEDS: GABAPENTIN 400 MG CAP PO SCH ×3 (08:21→20:31)
[2017-10-06] MEDS ORDERED: INSULIN GLARGINE SOLOSTAR 100 UNITS/ML 3 ML PEN SC SCH ×2 (09:00→21:00)
[2017-10-06] MEDS: FAMOTIDINE IV INJ 20 MG in SYRINGE 3 ML IV SCH ×2 (11:27→21:56)
--- NOTE | 2017-10-06 12:05 | Pharmacy Progress Note ---
Glycemic Control Progress Note Date of Service Oct 06, 2017. Scope Glycemic Pharmacist consulted for glycemic control to write orders per [facility] inpatient glycemic control protocol. Objective Accuchecks BSG (last 24hrs): Test 10/05/17 11:20 10/05/17 16:13 10/05/17 21:06 10/05/17 21:29 Bedside Glucose 299 mg/dl (70-90) 256 mg/dl (70-90) 64 mg/dl (70-90) 62 mg/dl (70-90) Test 10/05/17 21:49 10/05/17 23:58 10/06/17 02:14 10/06/17 05:41 Bedside Glucose 89 mg/dl (70-90) 166 mg/dl (70-90) 149 mg/dl (70-90) Random Glucose 103 mg/dl (70-99) Test 10/06/17 06:07 Bedside Glucose 95 mg/dl (70-90) HbA1c: Test 10/04/17 06:15 Hemoglobin A1c 10.3 % (4.5-5.6) H Recent Pertinent Medications The patient is currently receiving: * Basal insulin: Lantus 15-35 units every 12 hours (held last night secondary to hypoglycemia) * Correctional Insulin: Novolog Correction per scale ACHS Goal Range: Low 120 mg/dL - High 160 mg/dL Correction Factor: 20 mg/dL/unit * Prandial insulin: Per carb ratio of 1 unit per 6 grams CHO consumed Outpatient Anti-Diabetic Meds [place] 60 units SQ BID, Novolog 8-12 units with meals and sliding scale Assessment & Plan ASSESSMENT: * See progress note from 10/05/17 for more background info, in short: * Pt receiving SQ basal bolus insulin regimen for hyperglycemia secondary to baseline DM (outpatient regimen on hold), infection (UTI on Rocephin), currently on diltiazem infusion. * Patient is currently receiving an average of 67 units of insulin per day * 30 units of basal insulin * 37 units of prandial/correctional insulin * BSGs ranging 60-299 mg/dl over the past 24hrs * Changes needed to insulin regimen: * AM Fasting BSG = 95 mg/dl. This is slightly below goal range for patient based on inpatient targets and co-morbidities. This is most likely from the excessive basal on 10/04/16 (90 units then and then only 30 the next day) plus aggressive Novolog coverage leading to swings in blood sugars. Administered 25 units this morning then utilized Lantus scale for evening as not certain how patient will react. * Post-prandial BSGs were elevated yesterday (secondary to receiving no insulin at breakfast) - continue slightly tightened parameters from yesterday and monitor closely. * Total daily dose = ~80-90 units. Adjusted as appropriate. PLAN FOR INPATIENT GLYCEMIC CONTROL: * Changing Lantus 25 units SQ this AM then 15-35 units this evening * Continuing correction factor of 20 mg/dl/unit * Continuing carb ratio of 1 unit per 6 grams CHO consumed * Continuing goal range to Low 120 mg/dL - High 160 mg/dL RECOMMENDATIONS FOR DISCHARGE: * Patient's HbA1C indicates poor glycemic control- monitor closely as an outpatient and stress compliance. Recommend titrating Novolog for a 50/50 split as regimen is rather basal heavy. Thank you.
--- NOTE | 2017-10-06 17:21 | Progress Note ---
Subjective Date of Service: Oct 06, 2017. Subjective Pt evaluation today including: conversation w/ patient, physical exam, chart review, lab review, review of studies, review of inpatient medication list Resting in bed comfortably No complaints Feels weak still Denies any chest pain or shortness of breath Problem List Medical Problems: (1) Abdominal pain Status: Acute (2) Abscess of labia majora Status: Acute (3) Acute vomiting Status: Acute (4) Cellulitis of labia majora Status: Acute (5) Hyperglycemia Status: Acute (6) Hyperglycemia due to type 2 diabetes mellitus Status: Acute (7) Hypertension Status: Acute (8) Low back pain Status: Acute (9) Morbid obesity Status: Acute (10) New onset a-fib Status: Acute (11) Pulmonary nodule Status: Acute (12) Rectal bleed Status: Acute (13) Rectal bleeding Status: Acute (14) Rectal cancer Status: Acute (15) Sepsis Status: Acute (16) Shortness of breath Status: Acute (17) Skin abscess Status: Acute (18) Urinary tract infection Status: Acute Review of Systems Constitutional: No fever, No chills, No sweats, No weight loss ENT: No hearing loss, No unusual epistaxis, No nasal symptoms, No sore throat Respiratory: No cough, No sputum, No wheezing, No shortness of breath Cardiac: No chest pain, No orthopnea, No PND, No edema Abdomen: No pain, No nausea, No vomiting, No diarrhea Musculoskeletal: No joint pain, No muscle pain, No swelling, No calf pain Female : No dysuria, No urinary frequency, No hematuria, No incontinence Neurologic: No memory loss, No paralysis, No weakness, No numbness/tingling Psychiatric: No depression symptoms, No anhedonism, No anxiety, No insomnia Heme: No abnormal bleeding/bruising, No clotting problems Skin: No rash, No itch Objective Vital Signs Date Time Temp Pulse Resp B/P (MAP) Pulse Ox O2 Delivery O2 Flow Rate FiO2 10/06/17 13:00 80 16 10/06/17 12:00 Room Air 10/06/17 12:00 87 23 10/06/17 11:24 36.3 96 25 123/85 (98) 98 Room Air 10/06/17 11:00 86 25 10/06/17 10:00 84 21 10/06/17 09:00 85 30 10/06/17 08:15 Room Air 10/06/17 08:01 36.3 87 18 126/82 (97) 97 Room Air 10/06/17 08:00 89 17 114/88 (97) 98 10/06/17 07:00 82 25 10/06/17 04:00 Room Air 10/06/17 00:00 36.8 80 24 108/72 (84) 92 CPAP 10/06/17 00:00 Room Air 10/05/17 23:12 80 98 10/05/17 20:00 Room Air 10/05/17 19:35 36.2 74 21 132/79 (96) 97 Room Air Physical Exam General Appearance: WD/WN, no apparent distress Eyes: normal inspection, PERRL, EOMI, sclerae normal Neck: supple, no adenopathy, thyroid normal, no JVD Respiratory/Chest: chest non-tender, lungs clear, normal breath sounds, no respiratory distress Cardiovascular: no edema, no gallop, no JVD, + irregularly irregular Abdomen: normal bowel sounds, non tender, soft, no organomegaly Neurologic/Psychiatric: no motor/sensory deficits, alert, normal mood/affect, oriented x 3 Laboratory Results Last 24 Hours Test 10/05/17 19:00 10/05/17 21:06 10/05/17 21:29 10/05/17 21:49 Stool Occult Blood POSITIVE Bedside Glucose 64 mg/dl 62 mg/dl 89 mg/dl Test 10/05/17 23:58 10/06/17 02:14 10/06/17 05:41 10/06/17 06:07 Bedside Glucose 166 mg/dl 149 mg/dl 95 mg/dl White Blood Count 9.79 K/uL Red Blood Count 4.69 M/uL Hemoglobin 12.6 g/dL Hematocrit 38.2 % Mean Corpuscular Volume 81.4 fL Mean Corpuscular Hemoglobin 26.9 pg Mean Corpuscular Hemoglobin Concent 33.0 g/dl Platelet Count 270 K/uL Mean Platelet Volume 10.5 fL Neutrophils (%) (Auto) 48.7 % Lymphocytes (%) (Auto) 37.3 % Monocytes (%) (Auto) 8.9 % Eosinophils (%) (Auto) 3.2 % Basophils (%) (Auto) 0.6 % Neutrophils # (Auto) 4.77 K/uL Lymphocytes # (Auto) 3.65 K/uL Monocytes # (Auto) 0.87 K/uL Eosinophils # (Auto) 0.31 K/uL Basophils # (Auto) 0.06 K/uL RDW Standard Deviation 41.0 fL RDW Coefficient of Variation 13.6 % Immature Granulocyte % (Auto) 1.3 % Immature Granulocyte # (Auto) 0.13 K/uL Echinocytes 1+ Activated Partial Thromboplast Time 22.3 SECONDS Partial Thromboplastin Ratio 0.9 Sodium Level 138 mmol/L Potassium Level 4.8 mmol/L Chloride Level 110 mmol/L Carbon Dioxide Level 23 mmol/L Anion Gap 5.0 mmol/L Blood Urea Nitrogen 9 mg/dl Creatinine 0.68 mg/dl Est Creatinine Clear Calc Drug Dose 101.1 ml/min Estimated GFR () 115.7 Estimated GFR (Non- 99.9 BUN/Creatinine Ratio 13.4 Random Glucose 103 mg/dl Calcium Level 8.8 mg/dl Test 10/06/17 11:18 10/06/17 16:26 Bedside Glucose 182 mg/dl 155 mg/dl Assessment and Plan 51 year old female with past medical history of dyslipidemia, hypertension, obstructive sleep apnea on CPAP, diabetes mellitus type 2 on large doses of insulin, hypothyroidism on large dose of Synthroid and newly diagnosed colon cancer possible adenocarcinoma presented to the ED with UTI, nausea vomiting and atrial fibrillation with RVR. Assessment/plan Atrial fibrillation with RVR, most likely new onset Due to bleeding risk, heparin drip stopped Appreciate cardiology recs, not a candidate for AC at this time, scheduled for colon resection this month Cardizem drip stopped due to hypotension and bradycardia Transferred to ICU, utilize fluid boluses at this time if needed for hypotension Sepsis not POA due to UTI Urine culture and blood culture sent, urine cx pos for ecoli Cont ceftriaxone Hypothyroidism with large dose of Synthroid suggesting the possibility of malabsorption of levothyroxine Patient is on 1400 g per day, decrease the dose to 400 g per day until we get TSH, T3 total and free T3, T4 total and free T4 Also on the morning we can confirm the dose from her primary care physician and 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 Diabetes mellitus uncontrolled with severe hyperglycemia Continue outpatient dose of Lantus 60 mg twice a day Sliding scale insulin Consult pharmacy Hypertension Hold blood pressure medications as blood pressure currently is low secondary to the Cardizem drip Dyslipidemia Continue statin DVT prophylaxis heparin subcutaneous until CT scan head results are back if it' s negative then patient will be started on heparin drip.
[2017-10-06] MEDS: MONTELUKAST SOD 10 MG TAB PO SCH (20:30)
[2017-10-06] MEDS: SIMVASTATIN 40 MG TAB PO SCH (20:31)
[2017-10-06] MEDS: CEFTRIAXONE SOD INJ 1 GM in DEXTROSE 5% ADD-VANTAGE 50ML 50 ML IV SCH (23:42)
[2017-10-07] VITALS (9 sets, daily range): BP systolic 131–154; BP diastolic 75–108; PULSE 72–100; TEMP 36.5–36.9; O2SAT 95–98
[2017-10-07] MEDS: NSS + 20MEQ KCL 1000ML 1,000 ML IV SCH ×3 (01:22→16:49)
[2017-10-07 04:38] LABS: HEMATOCRIT 37.6 % (37-47); HEMOGLOBIN 12.5 g/dL (12.0-16.0); MEAN CELL VOLUME 81.7 fL (80-100); MEAN CORPUSCULAR HEMOGLOBIN 27.2 pg (25-34); MEAN CORPUSCULAR HGB CONC 33.2 g/dl (32-36); MEAN PLATELET VOLUME 9.9 fL (7.4-10.4); PLATELET COUNT 318 K/uL (130-400); RED CELL DISTRIBUTION WIDTH CV 13.6 % (11.5-14.5); RED CELL DISTRIBUTION WIDTH SD 40.8 fL (36.4-46.3); WHITE BLOOD COUNT 10.71 K/uL (4.8-10.8)
[2017-10-07 04:58] LABS: CALCIUM 8.9 mg/dl (8.5-10.1); CREATININE 0.8 mg/dl (0.60-1.20); POTASSIUM 4.9 mmol/L (3.5-5.1)
[2017-10-07 05:38] LABS: BASO % 0.7 %; BASO ABS # 0.07 K/uL (0-0.2); EOS ABS # 0.21 K/uL (0-0.5); IG# 0.31 K/uL (0.00-0.02); LYMPH % 29.1 %; LYMPH ABS # 3.12 K/uL (1.2-3.4); MONO % 7.3 %; MONO ABS # 0.78 K/uL (0.11-0.59); NEUT ABS # 6.22 K/uL (1.4-6.5)
[2017-10-07] MEDS: LEVOTHYROXINE 200 MCG TAB PO SCH (06:15)
[2017-10-07] MEDS: INSULIN ASPART 100 UNITS/ML 3 ML PEN SC SCH ×4 (07:00→20:31)
[2017-10-07] MEDS: LACTOBACILLUS ACIDOPHILUS (FLORANEX) TAB PO SCH ×3 (07:09→16:50)
[2017-10-07] MEDS: METOPROLOL SUCC 25MG EXT REL TAB PO SCH (07:10)
[2017-10-07] MEDS: ASPIRIN 81 MG ECTAB PO SCH (07:10)
[2017-10-07] MEDS: MECLIZINE HCL 25 MG TAB PO PRN (07:10)
[2017-10-07] MEDS: LORATADINE 10 MG TAB PO SCH (07:10)
[2017-10-07] MEDS: VENLAFAXINE HCL XR 150 MG CAPXR PO SCH (07:11)
[2017-10-07] MEDS: ACETYLCYSTEINE 600 MG CAP PO SCH ×2 (07:11→20:30)
[2017-10-07] MEDS: MAGNESIUM OXIDE 400 MG TAB PO SCH (07:12)
[2017-10-07] MEDS: ONDANSETRON 8 MG TAB PO PRN (07:12)
[2017-10-07] MEDS: POTASSIUM CHLORIDE 10 MEQ TABCR PO SCH (07:12)
[2017-10-07] MEDS: BUDESONIDE/FORMOTEROL FUMARATE 80/4.5 60 PUFFS/INHALER INH SCH ×2 (07:13→16:49)
[2017-10-07] MEDS: IPRATROPIUM BROMIDE/ALBUTEROL respimat INH INH SCH ×4 (07:13→20:31)
[2017-10-07] MEDS: GABAPENTIN 400 MG CAP PO SCH ×3 (07:14→20:30)
[2017-10-07] MEDS: FAMOTIDINE IV INJ 20 MG in SYRINGE 3 ML IV SCH ×2 (07:47→21:02)
[2017-10-07] MEDS: INSULIN GLARGINE SOLOSTAR 100 UNITS/ML 3 ML PEN SC SCH ×2 (07:56→20:33)
[2017-10-07] MEDS: SODIUM CHLORIDE 0.65% NA SOLN 45 ML (OCEAN) SCH ×4 (07:57→20:29)
[2017-10-07] MEDS ORDERED: METOPROLOL SUCC 25MG EXT REL TAB PO SCH (08:00)
--- NOTE | 2017-10-07 10:10 | Pharmacy Progress Note ---
Glycemic Control Progress Note Date of Service Oct 07, 2017. Scope Glycemic Pharmacist consulted for glycemic control to write orders per [facility] inpatient glycemic control protocol. Objective Accuchecks BSG (last 24hrs): Test 10/06/17 11:18 10/06/17 16:26 10/06/17 19:51 10/07/17 00:11 Bedside Glucose 182 mg/dl (70-90) 155 mg/dl (70-90) 144 mg/dl (70-90) 199 mg/dl (70-90) Test 10/07/17 04:27 10/07/17 07:39 Random Glucose 178 mg/dl (70-99) Bedside Glucose 147 mg/dl (70-90) HbA1c: Test 10/04/17 06:15 Hemoglobin A1c 10.3 % (4.5-5.6) H Recent Pertinent Medications The patient is currently receiving: * Basal insulin: Lantus 15-35 units every 12 hours * Correctional Insulin: Novolog Correction per scale ACHS Goal Range: Low 120 mg/dL - High 160 mg/dL Correction Factor: 20 mg/dL/unit * Prandial insulin: Per carb ratio of 1 unit per 6 grams CHO consumed Outpatient Anti-Diabetic Meds Toujeo 60 units BID plus Novolog 8-12 units with meals + sliding scale Assessment & Plan ASSESSMENT: * See progress note from 10/05/17 for more background info, in short: * Pt receiving SQ basal bolus insulin regimen for hyperglycemia secondary to baseline DM (outpatient regimen on hold), infection (UTI on Rocephin), currently on diltiazem infusion. * Patient is currently receiving an average of 61 units of insulin per day * 50 units of basal insulin * 11 units of prandial/correctional insulin * BSGs ranging 95-182 mg/dl over the past 24hrs * Changes needed to insulin regimen: * AM Fasting BSG = 178 mg/dl. This is slightly above goal range for patient based on inpatient targets and co-morbidities. This is most likely from the excessive basal on 10/04/16 (90 units) and then only 30 the next day. Expect basal needs to be around 50 units/day. Scheduled 25 units twice daily. * Post-prandial BSGs were elevated yesterday at lunch secondary to receiving no insulin at breakfast and otherwise trended downwards. Loosen carbohydrate ratio slightly. * Total daily dose = ~80-90 units. Adjusted as appropriate. PLAN FOR INPATIENT GLYCEMIC CONTROL: * Changing Lantus 25 units SQ BID * Continuing correction factor of 20 mg/dl/unit * Loosening carb ratio to 1 unit per 7 grams CHO consumed * Continuing goal range to Low 120 mg/dL - High 160 mg/dL RECOMMENDATIONS FOR DISCHARGE: * Patient's HbA1C indicates poor glycemic control- monitor closely as an outpatient and stress compliance. Recommend titrating Novolog for a 50/50 split as regimen is rather basal heavy. Thank you.
--- NOTE | 2017-10-07 11:35 | Progress Note ---
Subjective Date of Service: Oct 07, 2017. Subjective Pt evaluation today including: conversation w/ patient, physical exam, chart review, lab review, review of studies, review of inpatient medication list Resting comfortably in bed States some fatigue this AM Denies any chest pain or shortness of breath Still in afib with RVR noted this AM, transferred to tele Problem List Medical Problems: (1) Abdominal pain Status: Acute (2) Abscess of labia majora Status: Acute (3) Acute vomiting Status: Acute (4) Cellulitis of labia majora Status: Acute (5) Hyperglycemia Status: Acute (6) Hyperglycemia due to type 2 diabetes mellitus Status: Acute (7) Hypertension Status: Acute (8) Low back pain Status: Acute (9) Morbid obesity Status: Acute (10) New onset a-fib Status: Acute (11) Pulmonary nodule Status: Acute (12) Rectal bleed Status: Acute (13) Rectal bleeding Status: Acute (14) Rectal cancer Status: Acute (15) Sepsis Status: Acute (16) Shortness of breath Status: Acute (17) Skin abscess Status: Acute (18) Urinary tract infection Status: Acute Review of Systems Constitutional: + weakness, + fatigue, No fever, No chills, No sweats Eyes: No worsening of vision, No eye pain, No redness, No discharge Respiratory: No cough, No sputum, No wheezing, No shortness of breath, No dyspnea on exertion Cardiac: No chest pain, No orthopnea, No PND, No edema, No claudication Abdomen: No pain, No nausea, No vomiting, No diarrhea, No constipation Musculoskeletal: No joint pain, No muscle pain, No swelling, No calf pain Female : No dysuria, No urinary frequency, No hematuria, No incontinence Neurologic: No memory loss, No paralysis, No weakness, No numbness/tingling Psychiatric: No depression symptoms, No anhedonism, No anxiety, No insomnia Endo: No fatigue, No excessive thirst Skin: No rash, No itch Objective Vital Signs Date Time Temp Pulse Resp B/P (MAP) Pulse Ox O2 Delivery O2 Flow Rate FiO2 10/07/17 08:04 Room Air 10/07/17 07:50 36.6 87 20 154/107 (123) 97 Room Air 10/07/17 04:00 BiPAP 10/07/17 03:57 36.9 100 23 154/108 (123) 96 BiPAP 10/07/17 00:00 BiPAP 10/06/17 23:45 37.1 95 22 146/106 (119) 97 BiPAP 10/06/17 22:16 88 95 10/06/17 20:00 Room Air 10/06/17 19:53 36.6 90 18 130/86 (101) 99 Room Air 10/06/17 16:30 Room Air 10/06/17 16:20 36.5 78 23 125/86 (99) 100 Room Air 10/06/17 16:00 83 19 10/06/17 13:00 80 16 10/06/17 12:00 Room Air 10/06/17 12:00 87 23 10/06/17 11:24 36.3 96 25 123/85 (98) 98 Room Air Physical Exam General Appearance: WD/WN, no apparent distress Eyes: normal inspection, PERRL, EOMI, sclerae normal Neck: supple, no adenopathy, thyroid normal, no JVD Respiratory/Chest: chest non-tender, lungs clear, no accessory muscle use, + decreased breath sounds Cardiovascular: no JVD, no murmur, + tachycardia, + irregularly irregular Abdomen: normal bowel sounds, non tender, soft, no organomegaly Extremities: normal range of motion, non-tender, normal inspection, no pedal edema Neurologic/Psychiatric: no motor/sensory deficits, alert, normal mood/affect, oriented x 3 Skin: normal color, warm/dry, no rash Lymphatic: no adenopathy Laboratory Results Last 24 Hours Test 10/06/17 16:26 10/06/17 19:51 10/07/17 00:11 10/07/17 04:27 Bedside Glucose 155 mg/dl 144 mg/dl 199 mg/dl White Blood Count 10.71 K/uL Red Blood Count 4.60 M/uL Hemoglobin 12.5 g/dL Hematocrit 37.6 % Mean Corpuscular Volume 81.7 fL Mean Corpuscular Hemoglobin 27.2 pg Mean Corpuscular Hemoglobin Concent 33.2 g/dl Platelet Count 318 K/uL Mean Platelet Volume 9.9 fL Neutrophils (%) (Auto) 58.0 % Lymphocytes (%) (Auto) 29.1 % Monocytes (%) (Auto) 7.3 % Eosinophils (%) (Auto) 2.0 % Basophils (%) (Auto) 0.7 % Neutrophils # (Auto) 6.22 K/uL Lymphocytes # (Auto) 3.12 K/uL Monocytes # (Auto) 0.78 K/uL Eosinophils # (Auto) 0.21 K/uL Basophils # (Auto) 0.07 K/uL RDW Standard Deviation 40.8 fL RDW Coefficient of Variation 13.6 % Immature Granulocyte % (Auto) 2.9 % Immature Granulocyte # (Auto) 0.31 K/uL Activated Partial Thromboplast Time 24.0 SECONDS Partial Thromboplastin Ratio 0.9 Sodium Level 139 mmol/L Potassium Level 4.9 mmol/L Chloride Level 107 mmol/L Carbon Dioxide Level 27 mmol/L Anion Gap 5.0 mmol/L Blood Urea Nitrogen 10 mg/dl Creatinine 0.80 mg/dl Est Creatinine Clear Calc Drug Dose 86.1 ml/min Estimated GFR () 97.6 Estimated GFR (Non- 84.2 BUN/Creatinine Ratio 12.6 Random Glucose 178 mg/dl Calcium Level 8.9 mg/dl Test 10/07/17 07:39 Bedside Glucose 147 mg/dl Assessment and Plan 51 year old female with past medical history of dyslipidemia, hypertension, obstructive sleep apnea on CPAP, diabetes mellitus type 2 on large doses of insulin, hypothyroidism on large dose of Synthroid and newly diagnosed colon cancer possible adenocarcinoma presented to the ED with UTI, nausea vomiting and atrial fibrillation with RVR. Atrial fibrillation with RVR, most likely new onset, initially placed on cardizem drip, however became david and hypotensive on 10/05 and transferred to ICU. Cardizem was dced and pt was placed on metoprolol and given fluid boluses. Cardiology was consulted. ECHO determined EF 55-60% with moderate regurg. Due to bleeding risk heparin drip stopped since pt not a candidate for AC at this time as she is scheduled for colon resection later this month in addition to intermittent GI bleeding, ASA only at this time. Currently rate controlled with metoprolol succinate 50 mg PO daily. Sepsis not POA due to UTI, asymptomatic Urine culture and blood culture sent, urine cx pos for ecoli Cont ceftriaxone x 5 days, last day 10/08/17 Hypothyroidism with large dose of Synthroid suggesting the possibility of malabsorption of levothyroxine Patient is on 1400 g per day, decrease the dose to 400 g per day as T4 elevated Repeat TSH in 8 weeks Diabetes mellitus uncontrolled with severe hyperglycemia Continue outpatient dose of Lantus 25 mg twice a day in addition to SSI HgA1C 10.3 Hypertension Resume back on lisinopril 5 mg daily Dyslipidemia Continue statin DVT prophylaxis SCDs, ASA only at this time Pt is FULL CODE Dispo: Awaiting PT/OT, likely will need rehab
[2017-10-07] MEDS ORDERED: LISINOPRIL 5 MG TAB PO ONE (12:00)
[2017-10-07] MEDS: MONTELUKAST SOD 10 MG TAB PO SCH (20:29)
[2017-10-07] MEDS: SIMVASTATIN 40 MG TAB PO SCH (20:30)
[2017-10-07] MEDS: CEFTRIAXONE SOD INJ 1 GM in DEXTROSE 5% ADD-VANTAGE 50ML 50 ML IV SCH (23:00)
[2017-10-08 03:48] VITALS: BP 137/89; PULSE 80; TEMP 36.5; O2SAT 98
[2017-10-08 05:06] LABS: PTT PATIENT 24.1 SECONDS (21.0-31.0)
[2017-10-08 05:12] LABS: HEMATOCRIT 36.7 % (37-47); HEMOGLOBIN 12.2 g/dL (12.0-16.0); MEAN CELL VOLUME 81.9 fL (80-100); MEAN CORPUSCULAR HEMOGLOBIN 27.2 pg (25-34); MEAN CORPUSCULAR HGB CONC 33.2 g/dl (32-36); MEAN PLATELET VOLUME 9.8 fL (7.4-10.4); NUCLEATED RED BLOOD CELL ABS 0.04 K/uL (0-0); PLATELET COUNT 401 K/uL (130-400); RED CELL DISTRIBUTION WIDTH CV 13.5 % (11.5-14.5); RED CELL DISTRIBUTION WIDTH SD 40.7 fL (36.4-46.3); WHITE BLOOD COUNT 12.17 K/uL (4.8-10.8)
[2017-10-08 05:28] LABS: CALCIUM 8.7 mg/dl (8.5-10.1); CREATININE 0.67 mg/dl (0.60-1.20); POTASSIUM 4.2 mmol/L (3.5-5.1)
[2017-10-08] MEDS: LEVOTHYROXINE 200 MCG TAB PO SCH (05:42)
[2017-10-08] MEDS: NSS + 20MEQ KCL 1000ML 1,000 ML IV SCH (05:42)
[2017-10-08 07:26] VITALS: BP 139/92; PULSE 77; TEMP 36.2; O2SAT 95
[2017-10-08 08:00] VITALS: O2SAT 95
[2017-10-08] MEDS: ACETYLCYSTEINE 600 MG CAP PO SCH (08:09)
[2017-10-08] MEDS: POTASSIUM CHLORIDE 10 MEQ TABCR PO SCH (08:10)
[2017-10-08] MEDS: MAGNESIUM OXIDE 400 MG TAB PO SCH (08:11)
[2017-10-08] MEDS: GABAPENTIN 400 MG CAP PO SCH ×2 (08:11→14:31)
[2017-10-08] MEDS: ASPIRIN 81 MG ECTAB PO SCH (08:11)
[2017-10-08] MEDS: VENLAFAXINE HCL XR 150 MG CAPXR PO SCH (08:11)
[2017-10-08] MEDS: LACTOBACILLUS ACIDOPHILUS (FLORANEX) TAB PO SCH ×2 (08:12→12:06)
[2017-10-08] MEDS: IPRATROPIUM BROMIDE/ALBUTEROL respimat INH INH SCH ×2 (08:12→12:09)
[2017-10-08] MEDS: SODIUM CHLORIDE 0.65% NA SOLN 45 ML (OCEAN) SCH ×2 (08:12→12:09)
[2017-10-08] MEDS: BUDESONIDE/FORMOTEROL FUMARATE 80/4.5 60 PUFFS/INHALER INH SCH (08:12)
[2017-10-08] MEDS: LORATADINE 10 MG TAB PO SCH (08:13)
[2017-10-08] MEDS: INSULIN ASPART 100 UNITS/ML 3 ML PEN SC SCH ×2 (08:17→12:09)
[2017-10-08] MEDS ORDERED: LISINOPRIL 5 MG TAB PO SCH (09:00)
[2017-10-08] MEDS ORDERED: INSULIN GLARGINE SOLOSTAR 100 UNITS/ML 3 ML PEN SC SCH (09:00)
[2017-10-08] MEDS ORDERED: FAMOTIDINE 20 MG TAB PO SCH (09:00)
[2017-10-08] MEDS ORDERED: METOPROLOL SUCC 50MG EXT REL TAB PO SCH (09:00)
[2017-10-08 11:01] VITALS: BP 110/69; PULSE 79; TEMP 36.6; O2SAT 96
[2017-10-08] MEDS ORDERED: ASPI81TA28 PO (11:21)
[2017-10-08] MEDS ORDERED: FAMO1TAB47 PO (11:22)
[2017-10-08] MEDS ORDERED: SALI0.6510 (11:22)
[2017-10-08] MEDS ORDERED: LCTX PO (11:22)
[2017-10-08] MEDS ORDERED: TPRSR50 PO (11:22)
[2017-10-08] MEDS ORDERED: LEVO200T6 PO (11:22)
[2017-10-08] MEDS ORDERED: LEVO1TAB35 PO (11:22)
[2017-10-08] MEDS ORDERED: MGNO400 PO (11:22)
[2017-10-08 11:33] VITALS: Ht 152.4 cm; Wt 99.6 kg
[2017-10-08 12:00] VITALS: O2SAT 95
[2017-10-08] MEDS ORDERED: INSULIN GLARGINE SOLOSTAR 100 UNITS/ML 3 ML PEN SC ONE (12:00)
[2017-10-08] MEDS ORDERED: INSU1.2I SQ (13:42)
--- NOTE | 2017-10-08 13:49 | Discharge Instructions ---
Discharge Instructions Date of Service Oct 08, 2017. Admission Reason for Admission: New Onset Atrial fibrillation, UTI,Sepsis Discharge Discharge Diagnosis / Problem: New onset atrial fibrillation,UTI,sepsis Discharge Goals Goal(s): Improve disease control, Diagnostic testing, Therapeutic intervention Activity Recommendations Activity Limitations: resume your previous activity Exercise/Sports Limitations: gradually increase as tolerated Shower/Bathe: no limitations . Instructions / Follow-Up Instructions / Follow-Up You were admitted for a rapid irregular heartbeat called Atrial Fibrillation. You also had a UTI and a fever. Please finish out the antibiotic called Levaquin for today and tomorrow. Your metoprolol tartrate was CHANGED to Toprol XL (metoprolol succinate) 50mg once daily to better control your fast heart rate. Your insulin dose was also lowered significantly as you were having very low blood sugars at times. Your thyroid medication was lowered to 1200 mcg daily (6 of your 200 mcg pills) as your thyroid blood work showed too much thyroid hormone. Please have your TSH , Free T4, and Free T3 blood levels checked in 2-3 weeks with either your PCP or your Lead Data Architect at [facility]. You were tested prior to discharge to see if you needed oxygen, and you were not requiring any oxygen. Please continue to use your CPAP every night while sleeping. Please follow up with your PCP within 1-2 weeks, and with Cardiology within 1-2 weeks. Current Hospital Diet Patient's current hospital diet: AHA Diet (Heart Healthy) Discharge Diet Recommended Diet: AHA Diet (Heart Healthy) Procedures Procedures Performed: Chest xray Abdomen xray Venous Doppler lower extremities Head CT Pending Studies Studies pending at discharge: yes List of pending studies: Blood cultures from 10/03/17 Laboratory Results Last 24 Hours Test 10/07/17 16:46 10/07/17 20:17 10/08/17 04:38 10/08/17 05:31 Bedside Glucose 124 mg/dl 133 mg/dl 50 mg/dl White Blood Count 12.17 K/uL Red Blood Count 4.48 M/uL Hemoglobin 12.2 g/dL Hematocrit 36.7 % Mean Corpuscular Volume 81.9 fL Mean Corpuscular Hemoglobin 27.2 pg Mean Corpuscular Hemoglobin Concent 33.2 g/dl Platelet Count 401 K/uL Mean Platelet Volume 9.8 fL RDW Standard Deviation 40.7 fL RDW Coefficient of Variation 13.5 % Nucleated RBC Absolute Count (auto) 0.04 K/uL Neutrophils % (Manual) 53.4 % Lymphocytes % (Manual) 17.0 % Variant Lymphocytes % (manual) 16.1 % Monocytes % (Manual) 6.3 % Eosinophils % (Manual) 6.3 % Metamyelocytes % 0.9 % Nucleated Red Blood Cells % 0.3 % Neutrophils # (Manual) 6.50 K/uL Total Absolute Neutrophils 6.50 K/uL Lymphocytes # (Manual) 2.07 K/uL Absolute Variant Lymphocytes 1.96 K/uL Total Absolute Lymphocytes 4.03 K/uL Monocytes # (Manual) 0.77 K/uL Eosinophils # (Manual) 0.77 K/uL Metamyelocytes # 0.11 K/uL Echinocytes 1+ Activated Partial Thromboplast Time 24.1 SECONDS Partial Thromboplastin Ratio 0.9 Sodium Level 141 mmol/L Potassium Level 4.2 mmol/L Chloride Level 108 mmol/L Carbon Dioxide Level 26 mmol/L Anion Gap 7.0 mmol/L Blood Urea Nitrogen 9 mg/dl Creatinine 0.67 mg/dl Est Creatinine Clear Calc Drug Dose 102.8 ml/min Estimated GFR () 116.3 Estimated GFR (Non- 100.4 BUN/Creatinine Ratio 13.4 Random Glucose 53 mg/dl Calcium Level 8.7 mg/dl Test 10/08/17 05:49 10/08/17 06:51 10/08/17 11:00 Bedside Glucose 176 mg/dl 141 mg/dl 275 mg/dl Hemoglobin A1c Test 10/04/17 06:15 Range/Units Estimated Average Glucose 249 mg/dl Hemoglobin A1c 10.3 H 4.5-5.6 % Lipid Panel Test 10/03/17 23:10 Range/Units Triglycerides Level 198 H 0-150 mg/dl Cholesterol Level 154 0-200 mg/dl HDL Cholesterol 21 mg/dl Cholesterol/HDL Ratio 7.3 LDL Cholesterol, Calculated 93 mg/dl Medical Emergencies . Who to Call and When: Medical Emergencies: If at any time you feel your situation is an emergency, please call 911 immediately. . Non-Emergent Contact Non-Emergency issues call your: Primary Care Provider, Contract Assistant Call Non-Emergent contact if: you have a fever, temperature is above 100.5, your pain is not controlled, your pain is worsening, your pain is unusual for you, your pain is concerning you, you have any medication questions . . "Provider Documentation" section prepared by Radha Dash. . VTE Core Measure Inpt VTE Proph given/why not?: SCD's
[2017-10-08 14:54] VITALS: BP 110/69; PULSE 79; TEMP 36.6; O2SAT 95
--- NOTE | 2017-10-08 19:50 | Discharge Summary ---
Discharge Summary Date of Service Oct 08, 2017. 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 * Ejection Fraction = 55-60%. * The left atrium is mildly dilated. * There is moderate mitral regurgitation. * The mitral regurgitant jet is eccentrically directed. Consultations: Critical Care Medicine Cardiology Medication Reconciliation New Medications: Levofloxacin (Levaquin) 750 Mg Tab 750 MG PO DAILY for 2 Days, #2 TAB Famotidine (Famotidine) 20 Mg Tab 20 MG PO BID for 30 Days, #60 TAB Lactobacillus Acidophilus (Floranex) 1 Tab Tab 4 TAB PO TIDM for 30 Days, TAB OTC Magnesium Oxide (Magnesium-Oxide) 400 Mg Tab 400 MG PO QAM for 30 Days, #30 TAB OTC Metoprolol Succinate (Metoprolol Succinate ER) 50 Mg Tabcr 50 MG PO QAM for 30 Days, #30 TAB Saline ([place] Nasal [place]) 0.65 % Spr 2 SPRAYS NA QID for 30 Days Changed Medications: Aspirin (Aspirin Ec) 81 Mg Tab 81 MG PO QAM for 30 Days, #30 TAB (Changed from: PT WILL CHECK WITH SURGEON) CHECK WITH YOUR SURGEON ON WHEN TO STOP THIS MEDICATION PRIOR TO SURGERY Insulin Glargine (Toujeo Solostar) 300 Unit/Ml Inj 60 UNITS SQ DAILY for 30 Days (Changed from: AMPM) NOTE THIS IS ONLY ONCE DAILY DOSING NOW Levothyroxine Sodium (Levothyroxine Sodium) 200 Mcg Tab 1200 MCG PO QAM for 30 Days (Changed from: 1400 MCG; TAKE SEVEN 200MCG TABS DAILY) TAKE SIX 200MCG TABS DAILY Continued Medications: Albuterol Hfa (Ventolin Hfa) 200 Puffs/14662 Mcg Aers 2-4 PUFFS INH Q6H PRN for ASTHMA, #1 INHALER Budesonide/Formoterol Fumarate (Symbicort 80/4.5 Inhaler) Aero 2 PUFFS INH BID, INHALER Cholestyramine (Cholestyramine) 4 Gm Pow 1 PKT PO BID for 14 Days, #28 PKT Furosemide (Lasix) 20 Mg Tab 20 MG PO QAM, TAB Gabapentin (Neurontin) 400 Mg Cap 400 MG PO TID Insulin Aspart (Novolog Flexpen) 100 Units/Ml Inj 20 UNITS SC TIDM Insulin Aspart (Novolog) 100 Units/Ml Inj UNITS SQ TIDM SLIDING SCALE Ipratropium-Albuterol (Combivent Respimat) 1 Aer Aer 1 PUFFS INH QID, INH Lisinopril (Lisinopril) 5 Mg Tab 5 MG PO QAM Loratadine (Claritin) 10 Mg Cap 10 MG PO QAM Meclizine Hcl (Meclizine Hcl) 25 Mg Tab 25 MG PO TID PRN for Dizziness or Vertigo Montelukast Sod (Montelukast Sodium) 10 Mg Tab 10 MG PO HS Mupirocin 2% (Bactroban 2%) 30 Gm Cr 1 APPLN EXT BID PRN for PRN, TUBE Nitroglycerin (Nitrostat) 0.4 Mg Tab 0.4 MG UT UD PRN for Chest Pain Ondansetron Hcl (Zofran) 8 Mg Tab 8 MG PO Q6 PRN for Nausea, TAB Potassium Chloride (Micro-K Ext Rel) 10 Meq Capcr 10 MEQ PO QAM, CAP Simvastatin (Zocor) 40 Mg Tab 40 MG PO QPM, TAB Venlafaxine Hcl (Effexor Extended Rel) 150 Mg Capcr 150 MG PO QAM Discontinued Medications: Cephalexin Monohydrate (Keflex) 500 Mg Cap 500 MG PO TID for 7 Days, #21 CAP Metoprolol Tartrate (Lopressor) 25 Mg Tab 25 MG PO QAM, TAB Discharge Exam Feeling better, just tired. Had a two-step today and does not require oxygen, but states she has some HOOKS. No chest pain, no diarrhea. Rates remain controlled in the 70s in A-fib on tele. Discussed case with Dr. Neves of Cardiology today and he is also ok with her being discharged. Due to GI bleeding and colon CA, upcoming surgery, she will not be anticoagulated at this time.She has been OOB and ambulating with the RN and RT and doing well with that. Denies abd pain. Review of Systems: Constitutional: No fever, No chills Eyes: No problem reported ENT: No problem reported Respiratory: + dyspnea on exertion Cardiovascular: No chest pain Abdomen: + GI bleeding, No pain, No nausea, No vomiting, No diarrhea, No constipation Musculoskeletal: No problem reported Genitourinary - Female: No problem reported Neurologic: No problem reported Psychiatric: No problem reported Endocrine: No problem reported Hematologic / Lymphatic: No problem reported Integumentary: No problem reported Physical Exam: General Appearance: WD/WN, no apparent distress, + obese Eyes: normal inspection, EOMI, sclerae normal ENT: hearing grossly normal, pharynx normal Neck: supple, no adenopathy, no JVD, trachea midline Respiratory/Chest: lungs clear, normal breath sounds, no respiratory distress, no accessory muscle use Cardiovascular: no edema, normal peripheral pulses, + systolic murmur (2/6 at LLSB), + irregularly irregular (with normal rate) Abdomen / GI: normal bowel sounds, non tender, soft, no organomegaly (and obese) Extremities: normal inspection, no calf tenderness, normal capillary refill , no pedal edema, normal range of motion Neurologic/Psychiatric: alert, normal mood/affect, oriented x 3 Skin: normal color, warm/dry, no rash Hospital Course 51 year old female with past medical history of dyslipidemia, hypertension, obstructive sleep apnea on CPAP, diabetes mellitus type 2 on large doses of insulin, hypothyroidism on large dose of Synthroid and newly diagnosed colon cancer, intestinal worms, who presented to the ED with UTI, fever, nausea/ vomiting and new onset atrial fibrillation with RVR. Atrial fibrillation with RVR, most likely new onset, initially placed on cardizem drip, however became david and hypotensive on 10/05 and transferred to ICU. Cardizem was dced and pt was placed on metoprolol and given fluid boluses. Cardiology was consulted. ECHO determined EF 55-60% with moderate mitral valve regurgitation. Due to bleeding risk heparin drip stopped since pt not a candidate for AC at this time as she is scheduled for colon resection later this month in addition to intermittent GI bleeding from her tumor, continue ASA only at this time. Currently rate controlled with metoprolol succinate 50 mg PO daily. Follow up with Cardiology as outpt. Sepsis POA/E. coli UTI-with fever and tachycardia on admission. Urine culture and blood culture sent, urine cx pos for E. coli Received ceftriaxone x 5 days, finish out 2 more days of Levaquin po on discharge Hypothyroidism with large dose of Synthroid (1400 mcg daily) suggesting the possibility of malabsorption of levothyroxine-is followed by Endocrine Dr. Baxter at [facility] and this outpatient dosing was confirmed with her pharmacy. Pt confirms she takes her medicine every day on an empty stomach early in the AM and waits 30 min before eating/drinking anything else. Says when her dose has been lowered in the past, she had a lot of problems. Patient is on 1400 g per day, decrease the dose to 1200 g per day as FT4 elevated, TSH low normal at 0.7, and with rapid atrial fibrillation Repeat TSH in 2-3 weeks with PCP or Endocrine Diabetes mellitus uncontrolled with severe hyperglycemia and hypoglycemia. HgA1C 10.3 -had multiple days of hypoglycemia at the tail end of her admission -lower home Toujeo dose to 60 units ONCE daily rather than twice -continue Novolog 20 units qac -f/u with Endocrine and PCP Hypertension-stable continue lisinopril 5 mg daily, Toprol XL (changed from metoprolol tartrate from home) Dyslipidemia Continue statin Stable for discharge to home Total Time Spent: Greater than 30 minutes This includes examination of the patient, discharge planning, medication reconciliation, and communication with other providers. Discharge Instructions Please refer to the electronic Patient Visit Report (Discharge Instructions) for additional information. Follow-Up PCP within 1-2 weeks Cardiology within 1-2 weeks General Surgery as planned for colectomy in 10 days Additional Copies To Madison Vivar M.D.; Faizan Neves DO
[2017-10-09] MEDS ORDERED: LEVOTHYROXINE 200 MCG TAB PO SCH ×2 (06:00)
[2017-10-23] MEDS ORDERED: OXYC-57 PO ×2 (10:22→10:37)
[2017-10-23] MEDS ORDERED: INSU1.2I SQ (10:37)
[2017-10-23] MEDS ORDERED: LVQ250 OR (10:37)
[2017-10-23] MEDS ORDERED: LVNIS40 SQ (10:37)
[2017-10-23] MEDS ORDERED: RXC5 PO (10:37)
[2017-10-23] MEDS ORDERED: APIX1TAB3 PO (10:38)
[2017-10-24] MEDS ORDERED: LACT10SO17 OR (15:06)
[2017-10-24] MEDS ORDERED: OXYC-57 PO (15:06)
[2017-10-25] MEDS ORDERED: APIX1TAB3 PO (08:07)
== END 2017-10-08 16:41 | disposition home health service (06) | DRG 308 ==
LOC: C.EDB 16:03 → C.2T 20:27 → ENRESERV 20:43 → C.MSICU 10-04 12:05 → C.2E 10-06 18:46
PROVIDERS: ADMIT Internal Medicine; ATTEND Family Medicine
DX: I48.91 Unspecified atrial fibrillation (principal); A41.51 Sepsis due to Escherichia coli [E. coli]; C18.9 Malignant neoplasm of colon, unspecified; K92.1 Melena; N39.0 Urinary tract infection, site not specified; I50.32 Chronic diastolic (congestive) heart failure; I24.8 Other forms of acute ischemic heart disease; Z68.41 Body mass index [BMI] 40.0-44.9, adult; R61 Generalized hyperhidrosis; R00.1 Bradycardia, unspecified; R55 Syncope and collapse; I95.9 Hypotension, unspecified; T46.1X5A Adverse effect of calcium-channel blockers, initial encounter; Y92.230 Patient room in hospital as the place of occurrence of the external cause; E87.6 Hypokalemia; I34.0 Nonrheumatic mitral (valve) insufficiency; I11.0 Hypertensive heart disease with heart failure; E11.65 Type 2 diabetes mellitus with hyperglycemia; E11.649 Type 2 diabetes mellitus with hypoglycemia without coma; J45.909 Unspecified asthma, uncomplicated; E03.9 Hypothyroidism, unspecified; E78.5 Hyperlipidemia, unspecified; G47.33 Obstructive sleep apnea (adult) (pediatric); E66.01 Morbid (severe) obesity due to excess calories; Z99.89 Dependence on other enabling machines and devices; Z96.652 Presence of left artificial knee joint; Z82.49 Family history of ischemic heart disease and other diseases of the circulatory system; Z79.82 Long term (current) use of aspirin; Z79.51 Long term (current) use of inhaled steroids; Z79.4 Long term (current) use of insulin; Z79.899 Other long term (current) drug therapy

== ENCOUNTER 2017-10-18 08:11 | Inpatient (IN) | payer OTHER ==
[2017-09-27 14:27] VITALS: Ht 152.4 cm; Wt 105.1 kg
[~2017-10-18] VITALS: Ht 152.4 cm; Wt 105.1 kg
[2017-10-18] VITALS (8 sets, daily range): BP systolic 109–157; BP diastolic 70–102; PULSE 70–115; TEMP 36.5–36.7; O2SAT 90–98
[2017-10-18] MEDS: LACTATED RINGER'S 1000ML 1,000 ML IV SCH ×4 (06:00→23:30)
[~2017-10-18 08:11] MED LIST changes: +CEFAZOLIN 2000MG IV PUSH 10 ML IV SCH; -CEPH500C PO; +FAMO1TAB47 PO; +HEPARIN SOD 5000 UNIT/0.5 ML CARP SQ SCH; +LACTATED RINGER'S 1000ML 1,000 ML IV SCH; +LCTX PO; -LPR25 PO; +MGNO400 PO; +SALI0.6510; +TPRSR50 PO
[2017-10-18] MEDS ORDERED: LEVO200T6 PO (09:21)
[2017-10-18] MEDS ORDERED: MAGN400T6 PO (09:21)
[2017-10-18] MEDS ORDERED: saline nasal spray (09:21)
[2017-10-18] MEDS ORDERED: METO-217 PO (09:21)
[2017-10-18] MEDS ORDERED: CHOLPOW (09:21)
[2017-10-18] MEDS ORDERED: ASPI81TA28 PO (09:21)
[2017-10-18] MEDS ORDERED: FAMO20TA11 PO (09:21)
[2017-10-18] MEDS ORDERED: INSU1.2I (09:21)
[2017-10-18] MEDS ORDERED: LCTX PO (09:21)
[2017-10-18] MEDS ORDERED: MIDAZOLAM HCL 1 MG/ML 2ML VIAL ONE (09:38)
[2017-10-18] MEDS ORDERED: FENTANYL CITRATE INJ 50 MCG/1 ML 2 ML VIAL ONE ×2 (09:38→16:37)
--- NOTE | 2017-10-18 09:48 | History & Physical Bridge Note ---
H&P Re-Evaluation Bridge Note: I have examined the patient, reviewed the History & Physical and in the interval since the performance of the History & Physical I have noted the following changes of clinical significance: No changes noted
[2017-10-18] MEDS ORDERED: BUPIVACAINE 0.5 % 5 MG/1 ML MPF 30ML VIAL ONE (10:40)
[2017-10-18] MEDS ORDERED: EpINEphrine INJ 1MG/ML AMP 1 MG/ML AMP ONE (10:41)
[2017-10-18] MEDS ORDERED: FENTANYL CITRATE INJ 50 MCG/1 ML 2 ML VIAL IV PRN (11:15)
[2017-10-18] MEDS ORDERED: HYDROmorphone INJ 1 MG/ML SYR IV PRN (11:15)
[2017-10-18] MEDS ORDERED: EpHEDrine SULFATE INJ 50 MG/ML AMP IV PRN (11:15)
[2017-10-18] MEDS ORDERED: ONDANSETRON INJ 2 MG/ML 2 ML VIAL IV PRN (11:15)
[2017-10-18] MEDS ORDERED: ATROPINE SULFATE 0.1 MG/ML 5ML SYR IV PRN (11:15)
[2017-10-18] MEDS ORDERED: SUCCINYLCHOLINE CHLORIDE 20 MG/ML 10 ML VIAL IV ONE (11:26)
[2017-10-18] MEDS ORDERED: NEOSTIGMINE METHYLSULFATE 5 MG/5 ML SYR ONE (11:26)
[2017-10-18] MEDS ORDERED: GLYCOPYRROLATE INJ 0.2 MG/ML VIAL ONE (11:26)
[2017-10-18] MEDS ORDERED: PROPOFOL IV EMULSION 10 MG/ML 20 ML VIAL IV ONE (11:26)
[2017-10-18] MEDS ORDERED: LIDOCAINE HCL 2% 2 ML VIAL (20MG/ML) ONE (11:26)
[2017-10-18] MEDS ORDERED: ROCURONIUM BROMIDE 10 MG/ML 5 ML VIAL IV ONE ×2 (11:26→12:35)
[2017-10-18] MEDS ORDERED: ONDANSETRON INJ 2 MG/ML 2 ML VIAL ONE (11:26)
[2017-10-18] MEDS ORDERED: LARYING-O-JET KIT (LTA) ONE (11:26)
[2017-10-18] MEDS ORDERED: HYDROmorphone INJ 2 MG/ML SYR/VIAL ONE (12:36)
[2017-10-18] MEDS ORDERED: ALBUMIN HUMAN 5% 12.5 GM/250 ML VIAL IV ONE ×3 (13:00→15:02)
[2017-10-18] MEDS ORDERED: CEFAZOLIN SOD 1 GM VIAL ONE (15:05)
[2017-10-18 15:07] LABS: HEMATOCRIT 34.1 % (37-47); HEMOGLOBIN 11.6 g/dL (12.0-16.0)
[2017-10-18 15:30] LABS: ALBUMIN 2.8 gm/dl (3.4-5.0); CALCIUM 8.5 mg/dl (8.5-10.1); CREATININE 0.4 mg/dl (0.60-1.20); POTASSIUM 3.6 mmol/L (3.5-5.1); TOTAL PROTEIN 5.7 gm/dl (6.4-8.2)
[2017-10-18] MEDS ORDERED: EpHEDrine SULFATE 50MG/5ML SYR ONE (15:58)
[2017-10-18] MEDS ORDERED: HYDROmorphone INJ 1 MG/ML SYR ONE (16:37)
[2017-10-18] MEDS ORDERED: GLUCOSE 10 TABS/TUBE PO PRN (16:45)
[2017-10-18] MEDS ORDERED: GLUCAGON FOR INJ 1 MG VIAL SQ PRN (16:45)
[2017-10-18] MEDS ORDERED: DEXTROSE 50% 50 ML SYR IV PRN (16:45)
[2017-10-18] MEDS ORDERED: NITROGLYCERIN 0.4 MG SL PER TAB CHARGE UT PRN (16:45)
[2017-10-18] MEDS ORDERED: NALOXONE HCL 0.4 MG/1 ML VIAL/CARP IV PRN (16:45)
[2017-10-18] MEDS ORDERED: GLUCOSE 40% GEL 15 GM TUBE PO PRN (16:45)
[2017-10-18] MEDS ORDERED: ALBUTEROL HFA 8 GM INHALER INH PRN (16:45)
--- NOTE | 2017-10-18 16:47 | [facility] Operative Report ---
Operative Report Operative Date Oct 18, 2017. Pre-Operative Diagnosis Rectosigmoid cancer Post-Operative Diagnosis same as pre-operative Procedure(s) Performed Attempted Laparoscopic, converted to open laparotomy low anterior resection, intra-op sigmoidoscopy diverting ileostomy Surgeon Dr. Rogers District Branch Manager Surgeon(s) SOREN Recio, SOREN Lucas, Dr. Villalobos Estimated Blood Loss 700ml Findings low rectosigmoid mass Specimens Specimen A) Proximal rectosigmoid and mesocolon, silk suture alcazar distal margin Drains RIRI into pelvis Anesthesia get Complication(s) None Disposition Recovery Room / PACU Description of Procedure After informed consent was obtained the patient was taken to the operating room placed in a supine position. After successful intubation a Hirsch catheter was placed and the arms were tucked. The abdomen and perineum were then sterilely prepped and draped in usual fashion. Began by making a periumbilical incision with 11 blade scalpel and carried this down through the soft tissue using electrocautery. The anterior rectus fascia was opened using electrocautery and 2 #0 Vicryl stay sutures were placed. Peritoneum was elevated with hemostats and incised under direct vision using a Metzenbaum scissor. A finger sweep was performed and a 12 mm Canales trocar was placed. The abdomen was insufflated to 20 mmHg. Laparoscope was inserted and the abdomen was examined 360. A right lower quadrant 12 mm port a right midabdominal 5 mm port and a left lower quadrant 5 mm port were placed under direct vision. The patient was placed in a steep Trendelenburg position. I began by evaluating the sigmoid colon. We mobilized the white line of Toldt down to the peritoneal reflection. I was unable to identify any tattoo ink from the mass itself which was felt to be in the rectosigmoid region. At this point we performed an intraoperative colonoscopy. The mass itself was much lower than I had anticipated probably at about 5 or 6 cm. Because of her morbid obesity, body habitus and narrow pelvis I would be unable to get a laparoscopic stapler down that low and therefore converted to an open laparotomy. We removed all the trochars and made a midline incision from above the umbilicus down the pubic symphysis. We used electrocautery to carry this down to the fascia and then opened the fascia to both poles. We used the Bookwalter retractor throughout the case to help with exposure. This was a very difficult case primarily because of her body habitus. I called one my senior partners Dr. Villalobos into the room and scrubbed in for the remainder of the case. We transected the proximal rectosigmoid colon with a LOUIE purple cartridge stapler. We then began mobilizing the mesentery of the colon using the LigaSure device. We also freed up the peritoneal reflection using electrocautery and continued use finger fractionation into the presacral space and to take down the lateral pedicles. We opted to remove some of the proximal colon to help with our exposure and we passed this off to be sent to specimen continued working our way towards the tumor itself. We were able to mobilize this primarily manually laterally and posteriorly until eventually we were able to get a reticulating LOUIE stapler around the rectum distal to the mass. Once we transected it we did open it on the back table and evaluated it. Grossly it appeared as though we had negative margins. Next we mobilized the proximal sigmoid colon. We removed the staple line and used 2-0 silk and made a pursestring. We placed 25 mm anvil into the end and secured it with the pursestring. We then thoroughly irrigated the pelvis. We brought the handle into the remaining rectal stump. We deployed the spike connected the handle to the anvil and secured them together and fired it creating a circular end to end anastomosis. We did check the donut rings both of which were intact. We sent the distal ring for distal margins. We insufflated with a rigid sigmoidoscope under water and the anastomosis was airtight with no evidence of any leakage. Because of her significant health problems her morbid obesity and the low nature of the anastomosis we decided to perform a temporary diverting ileostomy. We thoroughly irrigated the entire abdomen. There was adequate hemostasis. We counted backwards from the terminal ileum for about 2 feet made a separate circular incision the right mid abdomen and opened the fascia in a cruciate manner and used a Radha to deliver the loop of small bowel. Next we closed the fascia using #1 PDS starting at either pole running them and securing them in the midline. We had placed a 10 flat Chris-Montemayor drain prior to this and placed in the pelvis secured to the skin using 2-0 silk. The soft tissue was irrigated and skin was closed using skin livan. We matured the ileostomy in [place] fashion with 3-0 Monocryl. An ostomy bridge was placed prior to maturing the ileostomy. An appliance was placed. Silver dressings were applied. The patient was awakened extubated and transferred recovery in stable condition My physician assistants were present throughout the entire case. Yolanda Lagos started off the case and Rakesh Nolasco was there for 90% of the case after she had the leave. They helped with prepping the patient. The helped extensively with retraction as well as helping to control the colonoscope the laparoscope etc. They helped with the anastomosis as well as wound closure and dressing placement I attest to the content of the Intraoperative Record and any orders documented therein. Any exceptions are noted below.
[2017-10-18] MEDS: IPRATROPIUM BROMIDE/ALBUTEROL respimat INH INH SCH ×2 (17:00→20:34)
[2017-10-18] MEDS: HYDROmorphone HCL 0.5MG/ML 50 ML CASSETTE IV PRN ×2 (17:04→18:12)
--- NOTE | 2017-10-18 17:42 | Anesthesiology Progress Note ---
Anesthesia Post Op Note Date & Time Oct 18, 2017 at 17:41 Vital Signs Pain Intensity: 2 Vital Signs Past 12 Hours Date Time Temp Pulse Resp B/P (MAP) Pulse Ox O2 Delivery O2 Flow Rate FiO2 10/18/17 17:30 100 18 124/79 97 Oxymask 3 10/18/17 17:15 94 18 126/87 98 Oxymask 3 10/18/17 17:05 36.3 100 20 133/87 99 Oxymask 3 10/18/17 16:55 99 20 111/85 100 Oxymask 5 10/18/17 16:45 102 20 132/93 100 Oxymask 5 10/18/17 16:35 101 22 130/95 100 Oxymask 5 10/18/17 16:29 36.2 102 22 141/95 100 Oxymask 5 10/18/17 09:26 36.7 86 18 115/75 98 Room Air Notes Mental Status: alert / awake / arousable, participated in evaluation Pt Amnestic to Procedure: Yes Nausea / Vomiting: adequately controlled Pain: adequately controlled Airway Patency, RR, SpO2: stable & adequate BP & HR: stable & adequate Hydration State: stable & adequate Anesthetic Complications: no major complications apparent
[2017-10-18] MEDS: SODIUM CHLORIDE 0.9% 1000ML 1,000 ML IV SCH ×2 (18:27→18:29)
[2017-10-18] MEDS: ACETAMINOPHEN IV 100 ML IV SCH (19:24)
[2017-10-18] MEDS: BUDESONIDE/FORMOTEROL FUMARATE 80/4.5 60 PUFFS/INHALER INH SCH (19:25)
[2017-10-18] MEDS: MONTELUKAST SOD 10 MG TAB PO SCH (19:25)
--- NOTE | 2017-10-18 19:34 | Medical Consult ---
Consultation Date of Consultation: Oct 18, 2017. Attending Physician: John Rogers D.O. Reason for Consultation: POst op management - pt with multiple med issue History of Present Illness 51 y/o F DM, HTN, HPL, PAF, AAN, hypothyroid. Recent diagnosis of adenocarcinoma of colon. Presented for scheduled rectosigmoid resection and placement of ileostomy. The pt is somnolent post-op and c/o being thirsty. She denies excessive pain, SOB, CP, N/V, dysuria, fevers. Past Medical/Surgical History 1) DM II 2) Morbid obesity 3) HTN 4) HPL 5) Moderate mitral regurge 6) Hypothyroidism 7) Paroxysmal AF 8) Asthma 9) Adenocarcinoma of colon - rectosigmoid mass Surgical 1) Rectosigmoid mass resection with ileostomy placement 10/18/17 2) Hysterectomy 3) BL carpal tunnel release 4) L TKR 5) L patellar surgery 6) Tonsillectomy Family History Diabetes mellitus FH: heart disease FH: lung disease Hypertension Seizures Sister - [place] 52 Mother - complications of DM, HTN 54 Father CAD 70s Social History Does not smoke or drink Smoking Status: Never Smoker Drug Use: none Marital Status: Housing Status: lives with significant other Occupation Status: disabled Allergies Coded Allergies: Daptomycin (Verified Allergy, Severe, SHORTNESS OF BREATH, 10/03/17) 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 Clindamycin (Verified Allergy, Intermediate, HIVES, 10/03/17) Sulfa Antibiotics (Verified Allergy, Intermediate, BACTRIM-HIVES, 10/03/17) BEE STING (Verified Allergy, Unknown, HIVES, 10/03/17) Trimethoprim (Verified Allergy, Unknown, HIVES, 10/03/17) Dulaglutide (Verified Adverse Reaction, Severe, BRAND-TRULICITY, SEVERE GI UPSET, CONSTIPATION, 10/03/17) Current Inpatient Medications Current Inpatient Medications Medications (Trade) Dose Ordered Sig/Viviana Route Start Time Stop Time Status Last Admin Dose Admin Lactated Ringer's 1,000 ml @ 15 mls/hr Q24H IV 10/18/17 06:00 10/19/17 05:59 10/18/17 10:23 15 MLS/HR Lactated Ringer's 1,000 ml @ 150 mls/hr Q6H40M IV 10/18/17 18:55 11/17/17 18:54 10/18/17 18:58 150 MLS/HR Acetaminophen 100 ml @ 400 mls/hr Q8H IV 10/18/17 19:00 11/17/17 18:59 Naloxone HCl (Narcan Inj) 0.1 mg Q5M PRN IV 10/18/17 16:45 11/17/17 16:44 Hydromorphone HCl (Dilaudid Ssrs Developer) 25 mg PRN PRN IV 10/18/17 16:45 11/01/17 16:44 10/18/17 18:12 25 MG Sodium Chloride 1,000 ml @ 15 mls/hr Q24H IV 10/18/17 16:32 11/17/17 16:31 10/18/17 18:29 15 MLS/HR Insulin Aspart (novoLOG ASPART) SLIDING SCALE If C... ACHS SC 10/18/17 21:00 11/17/17 20:59 Glucose (Glucose 40% Gel) 15-30 GRAMS 15 GRAMS... UD PRN PO 10/18/17 16:45 11/17/17 16:44 Glucose (Glucose Chew Tab) 4-8 Tablets 4 Tabl... UD PRN PO 10/18/17 16:45 11/17/17 16:44 Dextrose (Dextrose 50% 50ML Syringe) 25-50ML OF 50% DW IV FOR... UD PRN IV 10/18/17 16:45 11/17/17 16:44 Glucagon (Glucagon Inj) 1 mg UD PRN SQ 10/18/17 16:45 11/17/17 16:44 Albuterol (Ventolin Hfa Inhaler) 2 puffs Q6H PRN INH 10/18/17 16:45 11/17/17 16:44 Budesonide/ Formoterol Fumarate (Symbicort 80/ 4.5 Inh) 2 puffs BID INH 10/18/17 21:00 11/17/17 20:59 Famotidine (Pepcid Tab) 20 mg DAILY PO 10/19/17 09:00 11/18/17 08:59 Albuterol/ Ipratropium (Combivent Respimat Inh) 1 puffs QID INH 10/18/17 17:00 11/17/17 16:59 Levothyroxine Sodium (Synthroid Tab) 1,200 mcg DAILYBB PO 10/19/17 06:00 11/18/17 06:59 Metoprolol Succinate (Toprol Xl Tab) 50 mg DAILY PO 10/19/17 09:00 11/18/17 08:59 Montelukast Sodium (Singulair Tab) 10 mg HS PO 10/18/17 21:00 11/17/17 20:59 Nitroglycerin (Nitrostat Tab) 0.4 mg UD PRN UT 10/18/17 16:45 11/17/17 16:44 Ondansetron HCl (Zofran Tab) 8 mg Q6 PRN PO 10/18/17 16:45 11/17/17 16:44 Venlafaxine HCl (effeXOR EXTENDED REL CAP) 150 mg QAM PO 10/19/17 09:00 11/18/17 08:59 Cefazolin Sodium 3000 mg/Syringe 15 ml @ 2.5 mls/min Q8H IV 10/18/17 23:00 10/19/17 22:59 Review of Systems Constitutional: + weakness, + fatigue, No fever, No chills, No sweats Eyes: No worsening of vision ENT: No hearing loss, No unusual epistaxis, No nasal symptoms Respiratory: No cough, No sputum, No wheezing Cardiovascular: No chest pain, No orthopnea Musculoskeletal: No joint pain Genitourinary - Female: No dysuria, No urinary frequency, No urinary urgency Neurologic: No memory loss, No paralysis Psychiatric: No depression symptoms Endocrine: + fatigue Hematologic / Lymphatic: No abnormal bleeding/bruising Integumentary: No rash Allergic / Immunologic: No environmental allergies Physical Exam Date Time Temp Pulse Resp B/P (MAP) Pulse Ox O2 Delivery O2 Flow Rate FiO2 10/18/17 17:30 100 18 124/79 97 Oxymask 3 10/18/17 17:15 94 18 126/87 98 Oxymask 3 10/18/17 17:05 36.3 100 20 133/87 99 Oxymask 3 10/18/17 16:55 99 20 111/85 100 Oxymask 5 10/18/17 16:45 102 20 132/93 100 Oxymask 5 10/18/17 16:35 101 22 130/95 100 Oxymask 5 1/18/18 16:29 36.2 102 22 141/95 100 Oxymask 5 10/18/17 09:26 36.7 86 18 115/75 98 Room Air General Appearance: WD/WN, no apparent distress Head: normocephalic Eyes: normal inspection ENT: normal ENT inspection, hearing grossly normal, TMs normal Neck: supple, no JVD Respiratory/Chest: chest non-tender, lungs clear, normal breath sounds Cardiovascular: no edema, no gallop, + irregularly irregular Abdomen/GI: + pertinent finding (did not paplpate - hypoactive sounds - blood in ileostomy bag as expected ) Back: normal inspection, no CVA tenderness Extremities/Musculoskelatal: normal inspection, no calf tenderness, normal capillary refill Neurologic/Psych: mold parter II-XII nml as tested, no motor/sensory deficits, alert, oriented x 3 Skin: normal color Laboratory Results Last 24 Hours Test 10/18/17 08:52 10/18/17 14:56 10/18/17 16:32 Bedside Glucose 94 mg/dl 145 mg/dl Hemoglobin 11.6 g/dL Hematocrit 34.1 % Sodium Level 139 mmol/L Potassium Level 3.6 mmol/L Chloride Level 104 mmol/L Carbon Dioxide Level 24 mmol/L Anion Gap 11.0 mmol/L Blood Urea Nitrogen 8 mg/dl Creatinine 0.40 mg/dl Est Creatinine Clear Calc Drug Dose 170.0 ml/min Estimated GFR () 137.8 Estimated GFR (Non- 118.9 BUN/Creatinine Ratio 20.1 Random Glucose 156 mg/dl Calcium Level 8.5 mg/dl Total Bilirubin 1.1 mg/dl Aspartate Amino Transf (AST/SGOT) 19 U/L Alanine Aminotransferase (ALT/SGPT) 13 U/L Alkaline Phosphatase 53 U/L Total Protein 5.7 gm/dl Albumin 2.8 gm/dl Globulin 2.9 gm/dl Albumin/Globulin Ratio 1.0 Assessment & Plan 51 y/o F DM, HTN, HPL, PAF, ANA, hypothyroid. Recent diagnosis of adenocarcinoma of colon. Presented for scheduled rectosigmoid resection and placement of ileostomy. The pt is somnolent post-op and c/o being thirsty. She denies excessive pain, SOB, CP, N/V, dysuria, fevers. 1) Post-op - appears to be recovering well - without specific complaints - vitals stable - appropriate meds held by surgical service - there is no evidence of CHF on a recent echo - maintain aggressive hydration pending AM labs. Anticoagulation at earliest time per surgery as she is likely high risk with obesity and CA. 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
[2017-10-18] MEDS: INSULIN ASPART 100 UNITS/ML 3 ML PEN SC SCH (20:50)
[2017-10-18] MEDS ORDERED: INSULIN ASPART 100 UNITS/ML 3 ML PEN SC SCH (21:00)
[2017-10-19] MEDS: CEFAZOLIN IV 3,000 MG in SYRINGE 0 ML IV SCH ×3 (01:02→15:08)
[2017-10-19] MEDS: INSULIN ASPART 100 UNITS/ML 3 ML PEN SC SCH ×4 (03:00→21:13)
[2017-10-19 04:13] VITALS: BP 91/63; PULSE 106; TEMP 37; O2SAT 94
[2017-10-19] MEDS: ACETAMINOPHEN IV 100 ML IV SCH ×3 (04:48→18:32)
[2017-10-19 05:46] LABS: BASO % 0.3 %; BASO ABS # 0.03 K/uL (0-0.2); EOS % 0.3 %; EOS ABS # 0.03 K/uL (0-0.5); HEMATOCRIT 31.7 % (37-47); HEMOGLOBIN 10.6 g/dL (12.0-16.0); IG# 0.03 K/uL (0.00-0.02); LYMPH % 22.9 %; LYMPH ABS # 2.73 K/uL (1.2-3.4); MEAN CELL VOLUME 82.1 fL (80-100); MEAN CORPUSCULAR HEMOGLOBIN 27.5 pg (25-34); MEAN CORPUSCULAR HGB CONC 33.4 g/dl (32-36); MEAN PLATELET VOLUME 9.5 fL (7.4-10.4); MONO % 9.2 %; NEUT ABS # 7.99 K/uL (1.4-6.5); PLATELET COUNT 209 K/uL (130-400); RED CELL DISTRIBUTION WIDTH CV 14.6 % (11.5-14.5); RED CELL DISTRIBUTION WIDTH SD 43.6 fL (36.4-46.3); WHITE BLOOD COUNT 11.91 K/uL (4.8-10.8)
[2017-10-19] MEDS: LEVOTHYROXINE 200 MCG TAB PO SCH (06:22)
[2017-10-19 06:23] LABS: CALCIUM 8.1 mg/dl (8.5-10.1); CREATININE 1.03 mg/dl (0.60-1.20); POTASSIUM 4.1 mmol/L (3.5-5.1)
--- NOTE | 2017-10-19 07:24 | Anesthesiology Progress Note ---
Anesthesia Post Op Note Date & Time Oct 19, 2017 at 07:23 Vital Signs Pain Intensity: 6.0 Vital Signs Past 12 Hours Date Time Temp Pulse Resp B/P (MAP) Pulse Ox O2 Delivery O2 Flow Rate FiO2 10/19/17 04:13 37.0 106 20 91/63 (72) 94 Nasal Cannula 3.0 10/19/17 04:00 Nasal Cannula 3.0 10/18/17 23:59 Nasal Cannula 3.0 10/18/17 23:25 36.5 96 18 126/86 (99) 97 Mask 10/18/17 20:44 104 20 109/70 (83) 96 Oxymask 3.0 10/18/17 20:14 70 16 124/87 (99) 90 Oxymask 3.0 10/18/17 19:44 115 16 136/87 (103) 90 Oxymask 3.0 Notes Mental Status: alert / awake / arousable, participated in evaluation Pt Amnestic to Procedure: Yes Nausea / Vomiting: adequately controlled Pain: adequately controlled Airway Patency, RR, SpO2: stable & adequate BP & HR: stable & adequate Hydration State: stable & adequate Anesthetic Complications: no major complications apparent
[2017-10-19 07:40] VITALS: BP 111/67; PULSE 77; TEMP 36.5; O2SAT 99
[2017-10-19] MEDS ORDERED: NURSING VERBAL MED ORDER ONE (07:45)
--- NOTE | 2017-10-19 08:22 | Clinical Documentation Query ---
CLINICAL DOCUMENTATION QUERY A 51 yo female with hx of DM, HTN, ANA and morbid obesity is admitted s/y recto-sigmoid resection/ileostomy. In your clinical opinion is this patient being managed for: ( x) Obesity hypoventilation syndrome ( ) Not Agree ( ) Other explanation of clinical findings (Please Explain) ( ) Unable to determine (Please Define) ( ) Need to Discuss The medical record reflects the following clinical findings, treatment, and risk factors. Clinical Indicators: Morbid obesity, obstructive sleep apnea Treatment: O2 via oxymask/NC, continuous pulse ox Risk Factors: Morbid obesity, s/p surgical intervention Please clarify and document your clinical opinion in the progress notes and discharge summary. Terms such as "probable", "suspected", "likely", "questionable", "possible", or "still to be ruled out" are acceptable. IF IN AGREEMENT, YOU MUST DOCUMENT ABOVE DIAGNOSTIC STATEMENT IN DAILY PROGRESS NOTES AND DISCHARGE SUMMARY. This document is not part of the patient's record. Thank You, Lilian Hernandez RN [phone]
[2017-10-19] MEDS: BUDESONIDE/FORMOTEROL FUMARATE 80/4.5 60 PUFFS/INHALER INH SCH ×2 (08:36→21:12)
[2017-10-19] MEDS: IPRATROPIUM BROMIDE/ALBUTEROL respimat INH INH SCH ×4 (08:37→21:12)
[2017-10-19] MEDS: VENLAFAXINE HCL XR 150 MG CAPXR PO SCH (08:38)
[2017-10-19] MEDS: METOPROLOL SUCC 50MG EXT REL TAB PO SCH (08:38)
[2017-10-19] MEDS: FAMOTIDINE 20 MG TAB PO SCH (08:39)
[2017-10-19] MEDS: LACTATED RINGER'S 1000ML 1,000 ML IV SCH ×3 (08:39→21:38)
--- NOTE | 2017-10-19 08:39 | Surgery Progress Note ---
Surgery Progress Note Date of Service Oct 19, 2017. 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, No complaints, No nausea Objective Vital Signs: Date Time Temp Pulse Resp B/P (MAP) Pulse Ox O2 Delivery O2 Flow Rate FiO2 10/19/17 07:40 36.5 77 18 111/67 (82) 99 10/19/17 04:13 37.0 106 20 91/63 (72) 94 Nasal Cannula 3.0 10/19/17 04:00 Nasal Cannula 3.0 10/18/17 23:59 Nasal Cannula 3.0 10/18/17 23:25 36.5 96 18 126/86 (99) 97 Mask 10/18/17 20:44 104 20 109/70 (83) 96 Oxymask 3.0 10/18/17 20:14 70 16 124/87 (99) 90 Oxymask 3.0 10/18/17 19:44 115 16 136/87 (103) 90 Oxymask 3.0 10/18/17 19:14 81 16 157/102 (120) 90 Nasal Cannula 3.0 10/18/17 18:44 84 16 138/93 (108) 91 Oxymask 3.0 10/18/17 18:14 99 16 122/84 (97) 96 Oxymask 3.0 10/18/17 17:30 100 18 124/79 97 Oxymask 3 10/18/17 17:15 94 18 126/87 98 Oxymask 3 10/18/17 17:05 36.3 100 20 133/87 99 Oxymask 3 10/18/17 16:55 99 20 111/85 100 Oxymask 5 10/18/17 16:45 102 20 132/93 100 Oxymask 5 10/18/17 16:35 101 22 130/95 100 Oxymask 5 10/18/17 16:29 36.2 102 22 141/95 100 Oxymask 5 10/18/17 09:26 36.7 86 18 115/75 98 Room Air Physical Exam: RIRI drainage (30), urine output (200 overnight) Abdomen: non distended, soft, + pertinent finding (ileostomy viable) Incision(s): intact (dressing) Laboratory Results: Results Past 24 Hours Test 10/18/17 08:52 10/18/17 14:56 10/18/17 16:32 10/18/17 20:44 Range/Units Bedside Glucose 94 145 200 70-90 mg/dl Hemoglobin 11.6 12.0-16.0 g/dL Hematocrit 34.1 37-47 % Sodium Level 139 136-145 mmol/L Potassium Level 3.6 3.5-5.1 mmol/L Chloride Level 104 98-107 mmol/L Carbon Dioxide Level 24 21-32 mmol/L Anion Gap 11.0 3-11 mmol/L Blood Urea Nitrogen 8 7-18 mg/dl Creatinine 0.40 0.60-1.20 mg/dl Est Creatinine Clear Calc Drug Dose 170.0 ml/min Estimated GFR () 137.8 Estimated GFR (Non- 118.9 BUN/Creatinine Ratio 20.1 10-20 Random Glucose 156 70-99 mg/dl Calcium Level 8.5 8.5-10.1 mg/dl Total Bilirubin 1.1 0.2-1 mg/dl Aspartate Amino Transf (AST/SGOT) 19 15-37 U/L Alanine Aminotransferase (ALT/SGPT) 13 12-78 U/L Alkaline Phosphatase 53 45-117 U/L Total Protein 5.7 6.4-8.2 gm/dl Albumin 2.8 3.4-5.0 gm/dl Globulin 2.9 2.5-4.0 gm/dl Albumin/Globulin Ratio 1.0 0.9-2 Test 10/19/17 03:15 10/19/17 05:29 10/19/17 07:34 Range/Units Bedside Glucose 139 99 70-90 mg/dl White Blood Count 11.91 4.8-10.8 K/uL Red Blood Count 3.86 4.2-5.4 M/uL Hemoglobin 10.6 12.0-16.0 g/dL Hematocrit 31.7 37-47 % Mean Corpuscular Volume 82.1 80-100 fL Mean Corpuscular Hemoglobin 27.5 25-34 pg Mean Corpuscular Hemoglobin Concent 33.4 32-36 g/dl Platelet Count 209 130-400 K/uL Mean Platelet Volume 9.5 7.4-10.4 fL Neutrophils (%) (Auto) 67.0 % Lymphocytes (%) (Auto) 22.9 % Monocytes (%) (Auto) 9.2 % Eosinophils (%) (Auto) 0.3 % Basophils (%) (Auto) 0.3 % Neutrophils # (Auto) 7.99 1.4-6.5 K/uL Lymphocytes # (Auto) 2.73 1.2-3.4 K/uL Monocytes # (Auto) 1.10 0.11-0.59 K/uL Eosinophils # (Auto) 0.03 0-0.5 K/uL Basophils # (Auto) 0.03 0-0.2 K/uL RDW Standard Deviation 43.6 36.4-46.3 fL RDW Coefficient of Variation 14.6 11.5-14.5 % Immature Granulocyte % (Auto) 0.3 % Immature Granulocyte # (Auto) 0.03 0.00-0.02 K/uL Sodium Level 138 136-145 mmol/L Potassium Level 4.1 3.5-5.1 mmol/L Chloride Level 105 98-107 mmol/L Carbon Dioxide Level 26 21-32 mmol/L Anion Gap 7.0 3-11 mmol/L Blood Urea Nitrogen 15 7-18 mg/dl Creatinine 1.03 0.60-1.20 mg/dl Est Creatinine Clear Calc Drug Dose 66.9 ml/min Estimated GFR () 71.9 Estimated GFR (Non- 62.0 BUN/Creatinine Ratio 14.5 10-20 Random Glucose 117 70-99 mg/dl Calcium Level 8.1 8.5-10.1 mg/dl Assessment & Plan s/p LAR, protective ileostomy can start clears UOP marginal will keep IV at 150 for now cont steinberg begin Lovenox seen with Dr. Rogers
[2017-10-19] MEDS: ENOXAPARIN 40 MG/0.4 ML SYR SQ SCH (09:57)
[2017-10-19 10:31] VITALS: BP 106/72; PULSE 119; TEMP 36.5; O2SAT 98
[2017-10-19 15:47] VITALS: BP 123/86; PULSE 110; TEMP 36.8; O2SAT 94
--- NOTE | 2017-10-19 16:09 | Progress Note ---
Subjective Date of Service: Oct 19, 2017. Subjective Pt evaluation today including: conversation w/ patient Patient reports feeling well. Patient denies any SOB, nausea, vomiting, chest pain. Problem List Medical Problems: (1) Abdominal pain Status: Acute (2) Abscess of labia majora Status: Acute (3) Acute vomiting Status: Acute (4) Cellulitis of labia majora Status: Acute (5) Hyperglycemia Status: Acute (6) Hyperglycemia due to type 2 diabetes mellitus Status: Acute (7) Hypertension Status: Acute (8) Low back pain Status: Acute (9) Morbid obesity Status: Acute (10) New onset a-fib Status: Acute (11) Pulmonary nodule Status: Acute (12) Rectal bleed Status: Acute (13) Rectal bleeding Status: Acute (14) Rectal cancer Status: Acute (15) Sepsis Status: Acute (16) Shortness of breath Status: Acute (17) Skin abscess Status: Acute (18) Urinary tract infection Status: Acute Review of Systems Constitutional: No fever, No chills Respiratory: No cough, No sputum Cardiac: No chest pain, No orthopnea Abdomen: No pain, No nausea Neurologic: No memory loss Endo: No fatigue Skin: No rash, No itch All Other Systems: Reviewed and Negative Medications Current Inpatient Medications Medications (Trade) Dose Ordered Sig/Viviana Route Start Time Stop Time Status Last Admin Dose Admin Lactated Ringer's 1,000 ml @ 150 mls/hr Q6H40M IV 10/18/17 18:55 11/17/17 18:54 10/19/17 21:38 150 MLS/HR Acetaminophen 100 ml @ 400 mls/hr Q8H IV 10/18/17 19:00 11/17/17 18:59 10/19/17 18:32 400 MLS/HR Naloxone HCl (Narcan Inj) 0.1 mg Q5M PRN IV 10/18/17 16:45 11/17/17 16:44 Hydromorphone HCl (Dilaudid [employer] Refueling Handler) 25 mg PRN PRN IV 10/18/17 16:45 11/01/17 16:44 10/18/17 18:12 25 MG Sodium Chloride 1,000 ml @ 15 mls/hr Q24H IV 10/18/17 16:32 11/17/17 16:31 10/18/17 18:29 15 MLS/HR Glucose (Glucose 40% Gel) 15-30 GRAMS 15 GRAMS... UD PRN PO 10/18/17 16:45 11/17/17 16:44 Glucose (Glucose Chew Tab) 4-8 Tablets 4 Tabl... UD PRN PO 10/18/17 16:45 11/17/17 16:44 Dextrose (Dextrose 50% 50ML Syringe) 25-50ML OF 50% DW IV FOR... UD PRN IV 10/18/17 16:45 11/17/17 16:44 Glucagon (Glucagon Inj) 1 mg UD PRN SQ 10/18/17 16:45 11/17/17 16:44 Albuterol (Ventolin Hfa Inhaler) 2 puffs Q6H PRN INH 10/18/17 16:45 11/17/17 16:44 Budesonide/ Formoterol Fumarate (Symbicort 80/ 4.5 Inh) 2 puffs BID INH 10/18/17 21:00 11/17/17 20:59 10/19/17 21:12 2 PUFFS Famotidine (Pepcid Tab) 20 mg DAILY PO 10/19/17 09:00 11/18/17 08:59 10/19/17 08:39 20 MG Albuterol/ Ipratropium (Combivent Respimat Inh) 1 puffs QID INH 10/18/17 17:00 11/17/17 16:59 10/19/17 21:12 1 PUFFS Levothyroxine Sodium (Synthroid Tab) 1,200 mcg DAILYBB PO 10/19/17 06:00 11/18/17 06:59 10/19/17 06:22 1,200 MCG Metoprolol Succinate (Toprol Xl Tab) 50 mg DAILY PO 10/19/17 09:00 11/18/17 08:59 10/19/17 08:38 50 MG Montelukast Sodium (Singulair Tab) 10 mg HS PO 10/18/17 21:00 11/17/17 20:59 10/19/17 21:12 10 MG Nitroglycerin (Nitrostat Tab) 0.4 mg UD PRN UT 10/18/17 16:45 11/17/17 16:44 Ondansetron HCl (Zofran Tab) 8 mg Q6 PRN PO 10/18/17 16:45 11/17/17 16:44 10/19/17 16:34 8 MG Venlafaxine HCl (effeXOR EXTENDED REL CAP) 150 mg QAM PO 10/19/17 09:00 11/18/17 08:59 10/19/17 08:38 150 MG Insulin Aspart (novoLOG ASPART) SLIDING SCALE If C... ACHS SC 10/19/17 11:00 11/17/17 20:59 10/19/17 21:13 2 UNITS Enoxaparin Sodium (Lovenox Inj) 40 mg QAM SQ 10/19/17 09:00 11/18/17 08:59 10/19/17 09:57 40 MG Objective Vital Signs Date Time Temp Pulse Resp B/P (MAP) Pulse Ox O2 Delivery O2 Flow Rate FiO2 10/19/17 12:00 Nasal Cannula 3.0 10/19/17 10:31 36.5 119 20 106/72 (83) 98 Nasal Cannula 1.5 10/19/17 08:00 Nasal Cannula 3.0 10/19/17 07:40 36.5 77 18 111/67 (82) 99 10/19/17 04:13 37.0 106 20 91/63 (72) 94 Nasal Cannula 3.0 10/19/17 04:00 Nasal Cannula 3.0 10/18/17 23:59 Nasal Cannula 3.0 10/18/17 23:25 36.5 96 18 126/86 (99) 97 Mask 10/18/17 20:44 104 20 109/70 (83) 96 Oxymask 3.0 10/18/17 20:14 70 16 124/87 (99) 90 Oxymask 3.0 10/18/17 19:44 115 16 136/87 (103) 90 Oxymask 3.0 10/18/17 19:14 81 16 157/102 (120) 90 Nasal Cannula 3.0 10/18/17 18:44 84 16 138/93 (108) 91 Oxymask 3.0 10/18/17 18:14 99 16 122/84 (97) 96 Oxymask 3.0 10/18/17 17:30 100 18 124/79 97 Oxymask 3 10/18/17 17:15 94 18 126/87 98 Oxymask 3 10/18/17 17:05 36.3 100 20 133/87 99 Oxymask 3 10/18/17 16:55 99 20 111/85 100 Oxymask 5 10/18/17 16:45 102 20 132/93 100 Oxymask 5 10/18/17 16:35 101 22 130/95 100 Oxymask 5 10/18/17 16:29 36.2 102 22 141/95 100 Oxymask 5 Physical Exam Comments: General Appearance: WD/WN, no apparent distress Head: normocephalic Eyes: normal inspection ENT: normal ENT inspection, hearing grossly normal, TMs normal Neck: supple, no JVD Respiratory/Chest: chest non-tender, lungs clear, normal breath sounds Cardiovascular: no edema, no gallop, + irregularly irregular Abdomen/GI: did not palpate - hypoactive sounds - blood in ileostomy bag Back: normal inspection, no CVA tenderness Extremities/Musculoskelatal: normal inspection, no calf tenderness, normal capillary refill 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/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: 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 II-XII nml as tested, no motor/sensory deficits, alert, oriented x 3 Skin: normal color Laboratory Results Last 24 Hours Test 10/18/17 16:32 10/18/17 20:44 10/19/17 03:15 10/19/17 05:29 Bedside Glucose 145 mg/dl 200 mg/dl 139 mg/dl White Blood Count 11.91 K/uL Red Blood Count 3.86 M/uL Hemoglobin 10.6 g/dL Hematocrit 31.7 % Mean Corpuscular Volume 82.1 fL Mean Corpuscular Hemoglobin 27.5 pg Mean Corpuscular Hemoglobin Concent 33.4 g/dl Platelet Count 209 K/uL Mean Platelet Volume 9.5 fL Neutrophils (%) (Auto) 67.0 % Lymphocytes (%) (Auto) 22.9 % Monocytes (%) (Auto) 9.2 % Eosinophils (%) (Auto) 0.3 % Basophils (%) (Auto) 0.3 % Neutrophils # (Auto) 7.99 K/uL Lymphocytes # (Auto) 2.73 K/uL Monocytes # (Auto) 1.10 K/uL Eosinophils # (Auto) 0.03 K/uL Basophils # (Auto) 0.03 K/uL RDW Standard Deviation 43.6 fL RDW Coefficient of Variation 14.6 % Immature Granulocyte % (Auto) 0.3 % Immature Granulocyte # (Auto) 0.03 K/uL Sodium Level 138 mmol/L Potassium Level 4.1 mmol/L Chloride Level 105 mmol/L Carbon Dioxide Level 26 mmol/L Anion Gap 7.0 mmol/L Blood Urea Nitrogen 15 mg/dl Creatinine 1.03 mg/dl Est Creatinine Clear Calc Drug Dose 66.9 ml/min Estimated GFR () 71.9 Estimated GFR (Non- 62.0 BUN/Creatinine Ratio 14.5 Random Glucose 117 mg/dl Calcium Level 8.1 mg/dl Test 10/19/17 07:34 10/19/17 11:23 Bedside Glucose 99 mg/dl 123 mg/dl Assessment and Plan 51 y/o F DM, HTN, HPL, PAF, ANA, hypothyroid. Recent diagnosis of adenocarcinoma of colon. Presented for scheduled rectosigmoid resection and placement of ileostomy. She denies excessive pain, SOB, CP, N/V, dysuria, fevers. 1) Post-op continues to be recovering well - without specific complaints - vitals stable - appropriate meds held by surgical service - there is no evidence of CHF on a recent echo - maintain aggressive hydration pending AM labs. Anticoagulation at earliest time per surgery as she is likely high risk with obesity and CA. 2) DM - placed on SS - adjusted to Q6H while pt is NPO 3) HTN - Lisinopril and Lasix appropriately held -will restart lisnopril in AM -will hold lasix today - cont B yudy due to PAF - can be converted to IV if she cannot tolerate orals 4) PAF - currently in AF per exam - may be post-op effect - cont B yudy - pt is candidate for anticoagulation eventually 5) Hypothyroidism - cont Synthroid 6) ANA - CPAP HS 7) HPL - Statin can be continued although not a priority 8) Obesity hypoventilation syndrome Continue CPAP HS Med service will follow daily and contract lead for complications
[2017-10-19] MEDS: ONDANSETRON 8 MG TAB PO PRN (16:34)
[2017-10-19 19:15] VITALS: BP 115/80; PULSE 108; TEMP 37; O2SAT 93
[2017-10-19] MEDS: MONTELUKAST SOD 10 MG TAB PO SCH (21:12)
[2017-10-19 23:27] VITALS: BP 108/71; PULSE 116; TEMP 37.3; O2SAT 98
[2017-10-20] MEDS: ACETAMINOPHEN IV 100 ML IV SCH ×3 (03:29→19:48)
[2017-10-20 04:08] VITALS: BP 127/84; PULSE 108; TEMP 37; O2SAT 97
[2017-10-20] MEDS: LACTATED RINGER'S 1000ML 1,000 ML IV SCH ×3 (04:27→18:54)
[2017-10-20] MEDS: LEVOTHYROXINE 200 MCG TAB PO SCH (05:57)
[2017-10-20 07:10] LABS: BASO % 0.1 %; BASO ABS # 0.02 K/uL (0-0.2); EOS % 0.1 %; EOS ABS # 0.01 K/uL (0-0.5); HEMATOCRIT 30.1 % (37-47); IG# 0.08 K/uL (0.00-0.02); LYMPH % 15.6 %; LYMPH ABS # 2.15 K/uL (1.2-3.4); MEAN CELL VOLUME 82.7 fL (80-100); MEAN CORPUSCULAR HEMOGLOBIN 27.5 pg (25-34); MEAN CORPUSCULAR HGB CONC 33.2 g/dl (32-36); MONO % 9.3 %; MONO ABS # 1.28 K/uL (0.11-0.59); NEUT % 74.3 %; PLATELET COUNT 220 K/uL (130-400); RED CELL DISTRIBUTION WIDTH CV 14.8 % (11.5-14.5); RED CELL DISTRIBUTION WIDTH SD 44.2 fL (36.4-46.3); WHITE BLOOD COUNT 13.74 K/uL (4.8-10.8)
[2017-10-20] MEDS: VENLAFAXINE HCL XR 150 MG CAPXR PO SCH (07:40)
[2017-10-20] MEDS: IPRATROPIUM BROMIDE/ALBUTEROL respimat INH INH SCH ×4 (07:40→19:48)
[2017-10-20] MEDS: BUDESONIDE/FORMOTEROL FUMARATE 80/4.5 60 PUFFS/INHALER INH SCH ×2 (07:40→19:48)
[2017-10-20] MEDS: FAMOTIDINE 20 MG TAB PO SCH (07:41)
[2017-10-20] MEDS: INSULIN ASPART 100 UNITS/ML 3 ML PEN SC SCH ×4 (07:43→20:03)
[2017-10-20 07:50] LABS: CALCIUM 8.8 mg/dl (8.5-10.1); CREATININE 0.68 mg/dl (0.60-1.20); POTASSIUM 4.1 mmol/L (3.5-5.1)
[2017-10-20 08:00] VITALS: BP 118/79; PULSE 90; TEMP 36.8; O2SAT 95
[2017-10-20] MEDS: METOPROLOL SUCC 50MG EXT REL TAB PO SCH (08:47)
[2017-10-20] MEDS: ENOXAPARIN 40 MG/0.4 ML SYR SQ SCH (08:48)
--- NOTE | 2017-10-20 09:35 | Surgery Progress Note ---
Surgery Progress Note Date of Service Oct 20, 2017. Subjective Post OP Day: 2 + bowel movement pt having expected pain. no new symptoms. stoma now functioning. Objective Vital Signs: Date Time Temp Pulse Resp B/P (MAP) Pulse Ox O2 Delivery O2 Flow Rate FiO2 10/20/17 08:00 36.8 90 18 118/79 (92) 95 Nasal Cannula 2.0 10/20/17 08:00 Room Air 10/20/17 04:08 37.0 108 20 127/84 (98) 97 Nasal Cannula 2.0 10/20/17 04:00 Room Air 10/20/17 00:00 Room Air 10/19/17 23:27 37.3 116 18 108/71 (83) 98 Nasal Cannula 2.0 10/19/17 20:00 Room Air 10/19/17 19:15 37.0 108 16 115/80 (92) 93 Nasal Cannula 2.0 10/19/17 16:00 Room Air 10/19/17 15:47 36.8 110 20 123/86 (98) 94 10/19/17 12:00 Room Air 10/19/17 10:31 36.5 119 20 106/72 (83) 98 Nasal Cannula 1.5 Physical Exam: RIRI drainage (serous) General Appearance: no apparent distress Abdomen: soft, + pertinent finding (stoma functioning) Incision(s): clean, dry, intact Laboratory Results: Results Past 24 Hours Test 10/19/17 11:23 10/19/17 16:26 10/19/17 20:33 10/20/17 06:35 Range/Units Bedside Glucose 123 210 242 70-90 mg/dl White Blood Count 13.74 4.8-10.8 K/uL Red Blood Count 3.64 4.2-5.4 M/uL Hemoglobin 10.0 12.0-16.0 g/dL Hematocrit 30.1 37-47 % Mean Corpuscular Volume 82.7 80-100 fL Mean Corpuscular Hemoglobin 27.5 25-34 pg Mean Corpuscular Hemoglobin Concent 33.2 32-36 g/dl Platelet Count 220 130-400 K/uL Mean Platelet Volume 10.0 7.4-10.4 fL Neutrophils (%) (Auto) 74.3 % Lymphocytes (%) (Auto) 15.6 % Monocytes (%) (Auto) 9.3 % Eosinophils (%) (Auto) 0.1 % Basophils (%) (Auto) 0.1 % Neutrophils # (Auto) 10.20 1.4-6.5 K/uL Lymphocytes # (Auto) 2.15 1.2-3.4 K/uL Monocytes # (Auto) 1.28 0.11-0.59 K/uL Eosinophils # (Auto) 0.01 0-0.5 K/uL Basophils # (Auto) 0.02 0-0.2 K/uL RDW Standard Deviation 44.2 36.4-46.3 fL RDW Coefficient of Variation 14.8 11.5-14.5 % Immature Granulocyte % (Auto) 0.6 % Immature Granulocyte # (Auto) 0.08 0.00-0.02 K/uL Sodium Level 136 136-145 mmol/L Potassium Level 4.1 3.5-5.1 mmol/L Chloride Level 102 98-107 mmol/L Carbon Dioxide Level 27 21-32 mmol/L Anion Gap 7.0 3-11 mmol/L Blood Urea Nitrogen 13 7-18 mg/dl Creatinine 0.68 0.60-1.20 mg/dl Est Creatinine Clear Calc Drug Dose 101.4 ml/min Estimated GFR () 115.7 Estimated GFR (Non- 99.9 BUN/Creatinine Ratio 18.8 10-20 Random Glucose 190 70-99 mg/dl Calcium Level 8.8 8.5-10.1 mg/dl Test 10/20/17 07:13 10/20/17 09:27 Range/Units Bedside Glucose 193 70-90 mg/dl Assessment & Plan 10/20/17 doing as well as could be expected keep idris one more day increase activity tolerating clears so far will add oral pain meds pt/ot
[2017-10-20] MEDS ORDERED: HYDROCODONE/ACETAMOPHEN 5/325MG TAB PO PRN (09:45)
[2017-10-20] MEDS ORDERED: LISINOPRIL 5 MG TAB PO ONE (10:45)
--- NOTE | 2017-10-20 10:46 | DIAGNOSTIC IMAGING REPORT ---
SINGLE VIEW CHEST CLINICAL HISTORY: Leukocytosis. Cough. FINDINGS: An AP, portable, upright chest radiograph is compared to chest x-ray and chest CT dated 10/03/2017. Correlation is made with chest CT dated 09/12/2017. The examination is degraded by portable technique, large body habitus, and patient rotation. The heart is enlarged. The pulmonary vasculature is noncongested. There is elevation right hemidiaphragm with significant right basilar atelectasis/consolidation. This is new from previous. No large pleural effusion is identified. Small pulmonary nodules seen by CT are not apparent by x-ray. No pneumothorax is seen. The skeletal structures appear osteopenic. The bony thorax is grossly intact. IMPRESSION: 1. Cardiomegaly without radiographic evidence of congestive failure. 2. There is elevation of the right hemidiaphragm with dense right basilar atelectasis and consolidation. This is new from 10/03/2017. Given history of cough and leukocytosis this likely represents pneumonia. Radiographic follow-up to resolution is recommended. Electronically signed by: Tacho Delatorre M.D. 10/20/2017 10:44 AM Dictated Date/Time: 10/20/2017 10:42 AM
[2017-10-20 12:41] VITALS: BP 124/63; PULSE 97; TEMP 36.8; O2SAT 96
[2017-10-20] MEDS ORDERED: NURSING VERBAL MED ORDER ONE (13:45)
[2017-10-20 15:30] VITALS: BP 116/78; PULSE 87; TEMP 36.9; O2SAT 95
[2017-10-20] MEDS ORDERED: CONSULT PHARMACY STA ×2 (16:43→16:57)
--- NOTE | 2017-10-20 17:08 | Progress Note ---
Subjective Date of Service: Oct 20, 2017. Subjective Pt evaluation today including: conversation w/ patient, physical exam, chart review, lab review, review of studies, review of inpatient medication list Pain: none Voiding: steinberg catheter in place Patient is seen and examined by me. Pt is POD#2 colectomy, feeling tired, cough, chills, abdominal pain and not eating well. Problem List Medical Problems: (1) Abdominal pain Status: Acute (2) Abscess of labia majora Status: Acute (3) Acute vomiting Status: Acute (4) Cellulitis of labia majora Status: Acute (5) Hyperglycemia Status: Acute (6) Hyperglycemia due to type 2 diabetes mellitus Status: Acute (7) Hypertension Status: Acute (8) Low back pain Status: Acute (9) Morbid obesity Status: Acute (10) New onset a-fib Status: Acute (11) Pulmonary nodule Status: Acute (12) Rectal bleed Status: Acute (13) Rectal bleeding Status: Acute (14) Rectal cancer Status: Acute (15) Sepsis Status: Acute (16) Shortness of breath Status: Acute (17) Skin abscess Status: Acute (18) Urinary tract infection Status: Acute Review of Systems Constitutional: + chills, + sweats, + weakness, + fatigue, No fever Respiratory: + cough Cardiac: No chest pain, No orthopnea, No edema Abdomen: + pain, No nausea, No vomiting, No diarrhea Skin: No rash Medications Medications (Trade) Dose Ordered Sig/Viviana Route Start Time Stop Time Status Last Admin Dose Admin Acetaminophen/ Hydrocodone Bitart ([place] 5/325 Tab) 1 tab po q4 hours ... Q4 PRN PO 10/20/17 09:45 10/20/17 14:55 DC 10/20/17 13:26 2 TAB Lisinopril (Zestril Tab) 5 mg NOW ONCE PO 10/20/17 10:45 10/20/17 10:46 DC 10/20/17 13:16 5 MG Objective Vital Signs Date Time Temp Pulse Resp B/P (MAP) Pulse Ox O2 Delivery O2 Flow Rate FiO2 10/20/17 15:30 36.9 87 20 116/78 (91) 95 Nasal Cannula 2.0 10/20/17 12:41 36.8 97 18 124/63 (83) 96 10/20/17 12:00 Nasal Cannula 2.0 10/20/17 08:00 36.8 90 18 118/79 (92) 95 Nasal Cannula 2.0 10/20/17 08:00 Room Air 10/20/17 04:08 37.0 108 20 127/84 (98) 97 Nasal Cannula 2.0 10/20/17 04:00 Room Air 10/20/17 00:00 Room Air 10/19/17 23:27 37.3 116 18 108/71 (83) 98 Nasal Cannula 2.0 10/19/17 20:00 Room Air 10/19/17 19:15 37.0 108 16 115/80 (92) 93 Nasal Cannula 2.0 Physical Exam General Appearance: no apparent distress Neck: supple Respiratory/Chest: no accessory muscle use, + crackles (right lower lung) Cardiovascular: regular rate, rhythm, no murmur Abdomen: soft, + abnormal bowel sounds, + tenderness Skin: no rash Lymphatic: no adenopathy Laboratory Results Last 24 Hours Test 10/19/17 20:33 10/20/17 06:35 10/20/17 07:13 10/20/17 09:44 Bedside Glucose 242 mg/dl 193 mg/dl White Blood Count 13.74 K/uL Red Blood Count 3.64 M/uL Hemoglobin 10.0 g/dL Hematocrit 30.1 % Mean Corpuscular Volume 82.7 fL Mean Corpuscular Hemoglobin 27.5 pg Mean Corpuscular Hemoglobin Concent 33.2 g/dl Platelet Count 220 K/uL Mean Platelet Volume 10.0 fL Neutrophils (%) (Auto) 74.3 % Lymphocytes (%) (Auto) 15.6 % Monocytes (%) (Auto) 9.3 % Eosinophils (%) (Auto) 0.1 % Basophils (%) (Auto) 0.1 % Neutrophils # (Auto) 10.20 K/uL Lymphocytes # (Auto) 2.15 K/uL Monocytes # (Auto) 1.28 K/uL Eosinophils # (Auto) 0.01 K/uL Basophils # (Auto) 0.02 K/uL RDW Standard Deviation 44.2 fL RDW Coefficient of Variation 14.8 % Immature Granulocyte % (Auto) 0.6 % Immature Granulocyte # (Auto) 0.08 K/uL Sodium Level 136 mmol/L Potassium Level 4.1 mmol/L Chloride Level 102 mmol/L Carbon Dioxide Level 27 mmol/L Anion Gap 7.0 mmol/L Blood Urea Nitrogen 13 mg/dl Creatinine 0.68 mg/dl Est Creatinine Clear Calc Drug Dose 101.4 ml/min Estimated GFR () 115.7 Estimated GFR (Non- 99.9 BUN/Creatinine Ratio 18.8 Random Glucose 190 mg/dl Calcium Level 8.8 mg/dl Procalcitonin 0.75 ng/ml Test 10/20/17 10:30 10/20/17 16:19 Bedside Glucose 184 mg/dl 159 mg/dl Assessment and Plan 51 y/o F DM, HTN, HPL, PAF, ANA, hypothyroid. Recent diagnosis of adenocarcinoma of colon. Presented for scheduled rectosigmoid resection and placement of ileostomy. She denies excessive pain, SOB, CP, N/V, dysuria, fevers. Pt did not feel well today, cough, lethargy, elevated wbc and chills PNA most likely hospital acquired with elevated wbc and right sided infiltrates / consolidation. -- patient is allergic to multiple antibiotics and [facility]. -- we will start zoysn and vancomycin dose based on renal function, vanco trough before 4th dose. -- we will do blood cultures x2 and urine cultures. -- we will repeat cbc in am to see the trend. -- follow up cxr. s/p colectomy for adenocarcinoma of colon. -- surgery following pod#2 -- poor oral intake -- continue ivf -- anticoagulation at earliest time per surgery as she is likely high risk with obesity and CA. DM - placed on SS - adjusted to Q6H while pt is NPO HTN - Lisinopril and Lasix appropriately held -will start lisnopril -will hold lasix today -cont B yudy due to PAF - can be converted to IV if she cannot tolerate orals PAF - currently in AF per exam - may be post-op effect - cont B yudy - pt is candidate for anticoagulation eventually Hypothyroidism - cont Synthroid ANA - CPAP HS HPL - Statin can be continued although not a priority Obesity hypoventilation syndrome Continue CPAP HS Continued [facility] stay due to: multiple IV medications needed Discharge planning: rehab hospital
[2017-10-20] MEDS ORDERED: PIPERACILL/TAZOBAC IV 4.5 GM in DEXTROSE 5% 100ML IV ONE (17:30)
[2017-10-20] MEDS ORDERED: VANCOMYCIN INJ 2,500 MG in SODIUM CHLORIDE 0.9% 500ML 500 ML IV ONE (17:30)
[2017-10-20] MEDS: MONTELUKAST SOD 10 MG TAB PO SCH (19:50)
[2017-10-20] MEDS ORDERED: VANCOMYCIN CONSULT ACTIVE PRN (20:00)
[2017-10-20 20:02] VITALS: BP 134/79; PULSE 99; TEMP 37.4; O2SAT 96
[2017-10-20] MEDS ORDERED: PIPERACILL/TAZOBAC CONSULT ACTIVE PRN (20:15)
--- NOTE | 2017-10-20 20:38 | Pharmacy Progress Note ---
Pharmacy Antibiotic Consult Date of Service: Oct 20, 2017. Pharmacy Dosing Scope Pharmacy is consulted to initiate vancomycin and zosyn IV dosing therapy, order appropriate labs and adjust drug dose/frequency. Subjective The patient is a 51 year old female admitted on Oct 18, 2017 at 16:44. Objective Height (Feet): 5 Height (Inches): 0 Weight (Kilograms): 99.600 Lab Results (24hrs): Test 10/20/17 06:35 10/20/17 09:44 10/20/17 10:30 10/20/17 16:19 White Blood Count 13.74 K/uL (4.8-10.8) Red Blood Count 3.64 M/uL (4.2-5.4) Hemoglobin 10.0 g/dL (12.0-16.0) Hematocrit 30.1 % (37-47) Mean Corpuscular Volume 82.7 fL (80-100) Mean Corpuscular Hemoglobin 27.5 pg (25-34) Mean Corpuscular Hemoglobin Concent 33.2 g/dl (32-36) Platelet Count 220 K/uL (130-400) Mean Platelet Volume 10.0 fL (7.4-10.4) Neutrophils (%) (Auto) 74.3 % Lymphocytes (%) (Auto) 15.6 % Monocytes (%) (Auto) 9.3 % Eosinophils (%) (Auto) 0.1 % Basophils (%) (Auto) 0.1 % Neutrophils # (Auto) 10.20 K/uL (1.4-6.5) Lymphocytes # (Auto) 2.15 K/uL (1.2-3.4) Monocytes # (Auto) 1.28 K/uL (0.11-0.59) Eosinophils # (Auto) 0.01 K/uL (0-0.5) Basophils # (Auto) 0.02 K/uL (0-0.2) RDW Standard Deviation 44.2 fL (36.4-46.3) RDW Coefficient of Variation 14.8 % (11.5-14.5) Immature Granulocyte % (Auto) 0.6 % Immature Granulocyte # (Auto) 0.08 K/uL (0.00-0.02) Sodium Level 136 mmol/L (136-145) Potassium Level 4.1 mmol/L (3.5-5.1) Chloride Level 102 mmol/L (98-107) Carbon Dioxide Level 27 mmol/L (21-32) Anion Gap 7.0 mmol/L (3-11) Blood Urea Nitrogen 13 mg/dl (7-18) Creatinine 0.68 mg/dl (0.60-1.20) Est Creatinine Clear Calc Drug Dose 101.4 ml/min Estimated GFR () 115.7 Estimated GFR (Non- 99.9 BUN/Creatinine Ratio 18.8 (10-20) Random Glucose 190 mg/dl (70-99) Calcium Level 8.8 mg/dl (8.5-10.1) Procalcitonin 0.75 ng/ml (0-0.5) Bedside Glucose 184 mg/dl (70-90) 159 mg/dl (70-90) Test 10/20/17 20:00 Urine Color YELLOW Urine Appearance CLEAR (CLEAR) Urine pH 5.0 (4.5-7.5) Urine Specific [place] 1.025 (1.000-1.030) Urine Protein 1+ (NEG) Urine Glucose (UA) NEG (NEG) Urine Ketones 1+ (NEG) Urine Occult Blood 3+ (NEG) Urine Nitrite NEG (NEG) Urine Bilirubin NEG (NEG) Urine Urobilinogen NEG (NEG) Urine Leukocyte Esterase NEG (NEG) Urine WBC (Auto) 5-10 /hpf (0-5) Urine RBC (Auto) >30 /hpf (0-4) Urine Hyaline Casts (Auto) 0 /lpf (0-5) Urine Epithelial Cells (Auto) 0-5 /lpf (0-5) Urine Bacteria (Auto) NEG (NEG) Assessment & Plan Patient started on vancomycin and zosyn for possible pneumonia. BC x 2 are pending. Vancomycin: * 2500 mg loading dose x 1 (~25 mg/kg) * Will start MD of vancomycin 1250 mg (~13 mg/kg) iv q 12 hrs to achieve an estimated trough ~15-20 mcg/ml (goal for pneumonia) * Estimated kinetics: t1/2~10 hrs, ke~0.07 hr-1, CrCl ~100 ml/min * Will order trough prior to the 0800 dose on 10/22 to ensure therapeutic; note - this will be before steady state however since patient with elevated BMI want to ensure therapeutic Zosyn: * 4.5 gm iv q 8 hrs (appropriate for CrCl >20, BMI >35 kg/m2) Pharmacy will continue to follow and will adjust dose/frequency as necessary. Thank you
[2017-10-20] MEDS: HYDROmorphone INJ 1 MG/ML SYR IM PRN (22:00)
[2017-10-21] VITALS (7 sets, daily range): BP systolic 106–141; BP diastolic 65–89; PULSE 78–124; TEMP 36.8–37.1; O2SAT 92–100
[2017-10-21] MEDS: LACTATED RINGER'S 1000ML 1,000 ML IV SCH ×4 (00:40→20:41)
[2017-10-21] MEDS: PIPERACILL/TAZOBAC IV 4.5 GM in DEXTROSE 5% 100ML IV SCH ×3 (02:25→18:13)
[2017-10-21] MEDS: ACETAMINOPHEN IV 100 ML IV SCH ×4 (03:00→20:40)
[2017-10-21] MEDS: LEVOTHYROXINE 200 MCG TAB PO SCH (04:58)
[2017-10-21] MEDS: INSULIN ASPART 100 UNITS/ML 3 ML PEN SC SCH ×4 (07:00→20:46)
[2017-10-21] MEDS: HYDROmorphone INJ 1 MG/ML SYR IM PRN (07:20)
[2017-10-21 07:21] LABS: BASO % 0.2 %; BASO ABS # 0.02 K/uL (0-0.2); EOS % 0.3 %; EOS ABS # 0.04 K/uL (0-0.5); HEMATOCRIT 29.9 % (37-47); HEMOGLOBIN 9.7 g/dL (12.0-16.0); IG# 0.06 K/uL (0.00-0.02); LYMPH % 10.1 %; LYMPH ABS # 1.35 K/uL (1.2-3.4); MEAN CELL VOLUME 83.5 fL (80-100); MEAN CORPUSCULAR HEMOGLOBIN 27.1 pg (25-34); MEAN CORPUSCULAR HGB CONC 32.4 g/dl (32-36); MEAN PLATELET VOLUME 10.1 fL (7.4-10.4); MONO % 7.4 %; MONO ABS # 0.99 K/uL (0.11-0.59); NEUT % 81.5 %; NEUT ABS # 10.85 K/uL (1.4-6.5); PLATELET COUNT 220 K/uL (130-400); RED CELL DISTRIBUTION WIDTH CV 14.6 % (11.5-14.5); RED CELL DISTRIBUTION WIDTH SD 44.8 fL (36.4-46.3); WHITE BLOOD COUNT 13.31 K/uL (4.8-10.8)
[2017-10-21 07:54] LABS: CALCIUM 9.1 mg/dl (8.5-10.1); CREATININE 0.47 mg/dl (0.60-1.20); POTASSIUM 4.1 mmol/L (3.5-5.1)
--- NOTE | 2017-10-21 08:03 | Progress Note ---
Subjective Date of Service: Oct 21, 2017. Subjective Pt evaluation today including: conversation w/ patient, conversation w/ family , physical exam, chart review, lab review, review of studies, review of inpatient medication list Pain: good Voiding: steinberg catheter in place Doing good off GLASS SMOOTHER dilaudid, currently doing good with po oxycodone and hydromorphone. pt cough improved ,eating and drinking, still need to catch up with eating. Pt denies cp, sob, dizziness, palpitation and loss of consciousness. Pt denies nausea, vomiting and diarrhea. Pt colostomy bag is intact, still steinberg placed. Please out of bed to chair. Problem List Medical Problems: (1) Abdominal pain Status: Acute (2) Abscess of labia majora Status: Acute (3) Acute vomiting Status: Acute (4) Cellulitis of labia majora Status: Acute (5) Hyperglycemia Status: Acute (6) Hyperglycemia due to type 2 diabetes mellitus Status: Acute (7) Hypertension Status: Acute (8) Low back pain Status: Acute (9) Morbid obesity Status: Acute (10) New onset a-fib Status: Acute (11) Pulmonary nodule Status: Acute (12) Rectal bleed Status: Acute (13) Rectal bleeding Status: Acute (14) Rectal cancer Status: Acute (15) Sepsis Status: Acute (16) Shortness of breath Status: Acute (17) Skin abscess Status: Acute (18) Urinary tract infection Status: Acute Review of Systems All Other Systems: Reviewed and Negative Medications Medications (Trade) Dose Ordered Sig/Viviana Route Start Time Stop Time Status Last Admin Dose Admin Acetaminophen/ Hydrocodone Bitart ([place] 5/325 Tab) 1 tab po q4 hours ... Q4 PRN PO 10/20/17 09:45 10/20/17 14:55 DC 10/20/17 13:26 2 TAB Hydromorphone HCl (Dilaudid Inj) 1 mg Q2HWA PRN IM 10/20/17 09:45 11/03/17 09:44 10/20/17 22:00 1 MG Lisinopril (Zestril Tab) 5 mg NOW ONCE PO 10/20/17 10:45 10/20/17 10:46 DC 10/20/17 13:16 5 MG Vancomycin HCl 2500 mg/Sodium Chloride 550 ml @ 200 mls/hr TODAY@1730 ONCE IV 10/20/17 17:30 1/20/18 20:14 DC 10/20/17 19:47 200 MLS/HR Piperacillin Sod/ Tazobactam Sod 4.5 gm/Dextrose 120 ml @ 200 mls/hr TODAY@1730 ONCE IV 10/20/17 17:30 10/20/17 18:05 DC 10/20/17 19:44 200 MLS/HR Piperacillin Sod/ Tazobactam Sod 4.5 gm/Dextrose 120 ml @ 30 mls/hr Q8H IV 10/21/17 02:00 10/28/17 01:59 10/21/17 02:25 30 MLS/HR Objective Vital Signs Date Time Temp Pulse Resp B/P (MAP) Pulse Ox O2 Delivery O2 Flow Rate FiO2 10/21/17 04:00 Nasal Cannula 4.0 10/21/17 03:37 37.0 124 18 129/78 (95) 97 Nasal Cannula 4.0 10/21/17 00:00 36.8 101 20 120/79 (93) 97 Nasal Cannula 2.0 10/21/17 00:00 Nasal Cannula 4.0 10/20/17 20:02 37.4 99 18 134/79 (97) 96 Nasal Cannula 2.0 10/20/17 20:00 Nasal Cannula 2.0 10/20/17 16:00 Nasal Cannula 2.0 10/20/17 15:30 36.9 87 20 116/78 (91) 95 Nasal Cannula 2.0 10/20/17 12:41 36.8 97 18 124/63 (83) 96 10/20/17 12:00 Nasal Cannula 2.0 10/20/17 08:00 36.8 90 18 118/79 (92) 95 Nasal Cannula 2.0 10/20/17 08:00 Room Air Physical Exam General Appearance: no apparent distress Neck: supple Respiratory/Chest: normal breath sounds, no respiratory distress, no accessory muscle use Cardiovascular: regular rate, rhythm, no edema, no murmur Abdomen: soft, + abnormal bowel sounds, + tenderness Extremities: no pedal edema, no calf tenderness Neurologic/Psychiatric: alert, normal mood/affect, oriented x 3 Skin: no rash Laboratory Results Last 24 Hours Test 10/20/17 09:44 10/20/17 10:30 10/20/17 16:19 10/20/17 20:00 Procalcitonin 0.75 ng/ml Bedside Glucose 184 mg/dl 159 mg/dl Urine Color YELLOW Urine Appearance CLEAR Urine pH 5.0 Urine Specific [place] 1.025 Urine Protein 1+ Urine Glucose (UA) NEG Urine Ketones 1+ Urine Occult Blood 3+ Urine Nitrite NEG Urine Bilirubin NEG Urine Urobilinogen NEG Urine Leukocyte Esterase NEG Urine WBC (Auto) 5-10 /hpf Urine RBC (Auto) >30 /hpf Urine Hyaline Casts (Auto) 0 /lpf Urine Epithelial Cells (Auto) 0-5 /lpf Urine Bacteria (Auto) NEG Test 10/20/17 20:28 10/21/17 06:15 10/21/17 07:08 10/21/17 07:51 Bedside Glucose 177 mg/dl 201 mg/dl White Blood Count 13.31 K/uL Red Blood Count 3.58 M/uL Hemoglobin 9.7 g/dL Hematocrit 29.9 % Mean Corpuscular Volume 83.5 fL Mean Corpuscular Hemoglobin 27.1 pg Mean Corpuscular Hemoglobin Concent 32.4 g/dl Platelet Count 220 K/uL Mean Platelet Volume 10.1 fL Neutrophils (%) (Auto) 81.5 % Lymphocytes (%) (Auto) 10.1 % Monocytes (%) (Auto) 7.4 % Eosinophils (%) (Auto) 0.3 % Basophils (%) (Auto) 0.2 % Neutrophils # (Auto) 10.85 K/uL Lymphocytes # (Auto) 1.35 K/uL Monocytes # (Auto) 0.99 K/uL Eosinophils # (Auto) 0.04 K/uL Basophils # (Auto) 0.02 K/uL RDW Standard Deviation 44.8 fL RDW Coefficient of Variation 14.6 % Immature Granulocyte % (Auto) 0.5 % Immature Granulocyte # (Auto) 0.06 K/uL Assessment and Plan 51 y/o F DM, HTN, HPL, PAF, ANA, hypothyroid. Recent diagnosis of adenocarcinoma of colon. Presented for scheduled rectosigmoid resection and placement of ileostomy. She denies excessive pain, SOB, CP, N/V, dysuria, fevers. Pt did not feel well today, cough, lethargy, elevated wbc and chills PNA most likely hospital acquired with elevated wbc and right sided infiltrates / consolidation. -- Wbc slightly trended , much better clinically, saturation is greater than 92 %, continue incentive spirometry (pull about 750 fair breath hold) -- Continue zoysn and vancomycin dose based on renal function, vanco trough before 4th dose.appreciate pharmacy recommendation on antibiotics. -- Pending blood cultures x2 and urine cultures. -- we will repeat cbc in am to see the trend. -- follow up cxr in am s/p colectomy for adenocarcinoma of colon. -- surgery following pod#3, please out of bed to chair -- poor oral intake -- continue ivf -- anticoagulation at earliest time per surgery as she is likely high risk with obesity and CA. DM - placed on SS - adjusted to Q6H while pt is NPO HTN - Lisinopril and Lasix appropriately held -will start lisnopril -will hold lasix today -cont B yudy due to PAF - can be converted to IV if she cannot tolerate orals PAF - currently in AF per exam - may be post-op effect - cont B yudy - pt is candidate for anticoagulation eventually Hypothyroidism - cont Synthroid ANA - CPAP HS HPL - Statin can be continued although not a priority Obesity hypoventilation syndrome Continue CPAP HS Continued [facility] stay due to: multiple IV medications needed Discharge planning: rehab hospital
[2017-10-21] MEDS: VANCOMYCIN INJ 1,250 MG in SODIUM CHLORIDE 0.9% 250ML 250 ML IV SCH ×2 (08:14→20:40)
[2017-10-21] MEDS: IPRATROPIUM BROMIDE/ALBUTEROL respimat INH INH SCH ×4 (10:20→20:41)
[2017-10-21] MEDS: BUDESONIDE/FORMOTEROL FUMARATE 80/4.5 60 PUFFS/INHALER INH SCH ×2 (10:20→20:41)
[2017-10-21] MEDS: ENOXAPARIN 40 MG/0.4 ML SYR SQ SCH (10:21)
[2017-10-21] MEDS: LISINOPRIL 5 MG TAB PO SCH (10:21)
[2017-10-21] MEDS: FAMOTIDINE 20 MG TAB PO SCH (10:21)
[2017-10-21] MEDS: VENLAFAXINE HCL XR 150 MG CAPXR PO SCH (10:21)
[2017-10-21] MEDS: METOPROLOL SUCC 50MG EXT REL TAB PO SCH (10:22)
[2017-10-21] MEDS: INSULIN GLARGINE SOLOSTAR 100 UNITS/ML 3 ML PEN SC SCH (10:23)
--- NOTE | 2017-10-21 12:46 | Surgery Progress Note ---
Surgery Progress Note Date of Service Oct 21, 2017. Subjective no new complaints. stoma functioning. pain controlled Objective Vital Signs: Date Time Temp Pulse Resp B/P (MAP) Pulse Ox O2 Delivery O2 Flow Rate FiO2 10/21/17 12:27 37.1 109 26 141/65 (90) 95 10/21/17 08:42 37.0 112 18 139/69 (92) 95 10/21/17 04:00 Nasal Cannula 4.0 10/21/17 03:37 37.0 124 18 129/78 (95) 97 Nasal Cannula 4.0 10/21/17 00:00 36.8 101 20 120/79 (93) 97 Nasal Cannula 2.0 10/21/17 00:00 Nasal Cannula 4.0 10/20/17 20:02 37.4 99 18 134/79 (97) 96 Nasal Cannula 2.0 10/20/17 20:00 Nasal Cannula 2.0 10/20/17 16:00 Nasal Cannula 2.0 10/20/17 15:30 36.9 87 20 116/78 (91) 95 Nasal Cannula 2.0 Physical Exam: RIRI drainage (serous) General Appearance: no apparent distress Abdomen: non distended, soft, + pertinent finding (stoma looks good/functioning ) Incision(s): clean, dry, intact, no erythema Laboratory Results: Results Past 24 Hours Test 10/20/17 16:19 10/20/17 20:00 10/20/17 20:28 10/21/17 06:15 Range/Units Bedside Glucose 159 177 70-90 mg/dl Urine Color YELLOW Urine Appearance CLEAR CLEAR Urine pH 5.0 4.5-7.5 Urine Specific [place] 1.025 1.000-1.030 Urine Protein 1+ NEG Urine Glucose (UA) NEG NEG Urine Ketones 1+ NEG Urine Occult Blood 3+ NEG Urine Nitrite NEG NEG Urine Bilirubin NEG NEG Urine Urobilinogen NEG NEG Urine Leukocyte Esterase NEG NEG Urine WBC (Auto) 5-10 0-5 /hpf Urine RBC (Auto) >30 0-4 /hpf Urine Hyaline Casts (Auto) 0 0-5 /lpf Urine Epithelial Cells (Auto) 0-5 0-5 /lpf Urine Bacteria (Auto) NEG NEG White Blood Count 13.31 4.8-10.8 K/uL Red Blood Count 3.58 4.2-5.4 M/uL Hemoglobin 9.7 12.0-16.0 g/dL Hematocrit 29.9 37-47 % Mean Corpuscular Volume 83.5 80-100 fL Mean Corpuscular Hemoglobin 27.1 25-34 pg Mean Corpuscular Hemoglobin Concent 32.4 32-36 g/dl Platelet Count 220 130-400 K/uL Mean Platelet Volume 10.1 7.4-10.4 fL Neutrophils (%) (Auto) 81.5 % Lymphocytes (%) (Auto) 10.1 % Monocytes (%) (Auto) 7.4 % Eosinophils (%) (Auto) 0.3 % Basophils (%) (Auto) 0.2 % Neutrophils # (Auto) 10.85 1.4-6.5 K/uL Lymphocytes # (Auto) 1.35 1.2-3.4 K/uL Monocytes # (Auto) 0.99 0.11-0.59 K/uL Eosinophils # (Auto) 0.04 0-0.5 K/uL Basophils # (Auto) 0.02 0-0.2 K/uL RDW Standard Deviation 44.8 36.4-46.3 fL RDW Coefficient of Variation 14.6 11.5-14.5 % Immature Granulocyte % (Auto) 0.5 % Immature Granulocyte # (Auto) 0.06 0.00-0.02 K/uL Sodium Level 139 136-145 mmol/L Potassium Level 4.1 3.5-5.1 mmol/L Chloride Level 102 98-107 mmol/L Carbon Dioxide Level 27 21-32 mmol/L Anion Gap 9.0 3-11 mmol/L Blood Urea Nitrogen 10 7-18 mg/dl Creatinine 0.47 0.60-1.20 mg/dl Est Creatinine Clear Calc Drug Dose 149.9 ml/min Estimated GFR () 130.7 Estimated GFR (Non- 112.8 BUN/Creatinine Ratio 20.9 10-20 Random Glucose 184 70-99 mg/dl Calcium Level 9.1 8.5-10.1 mg/dl Test 10/21/17 07:08 Range/Units Bedside Glucose 201 70-90 mg/dl Microbiology Results 10/20/17 Blood Culture, Received Pending 10/20/17 Blood Culture, Received Pending 10/21/17 MRSA DNA Surveillance Screen - Final, Complete Specimen Negative for MRSA by DNA Probe 10/20/17 Urine Culture - Preliminary, Resulted NO GROWTH - LESS THAN 1,000 COLONIES/... Assessment & Plan 10/21/17 continues to do ok advance diet d/c steinberg PT/OT 10/20/17 doing as well as could be expected keep steinberg one more day increase activity tolerating clears so far will add oral pain meds pt/ot 10/20/17 doing as well as could be expected keep steinberg one more day increase activity tolerating clears so far will add oral pain meds pt/ot
[2017-10-21] MEDS: OXYCODONE HCL IR 5 MG TAB (IMMEDIATE RELEASE) PO PRN (14:11)
[2017-10-21] MEDS: MONTELUKAST SOD 10 MG TAB PO SCH (20:42)
[2017-10-22] VITALS (10 sets, daily range): BP systolic 124–139; BP diastolic 78–90; PULSE 91–109; TEMP 36.6–37.3; O2SAT 96–100
[2017-10-22] MEDS: PIPERACILL/TAZOBAC IV 4.5 GM in DEXTROSE 5% 100ML IV SCH ×3 (02:25→18:58)
[2017-10-22] MEDS: LACTATED RINGER'S 1000ML 1,000 ML IV SCH ×3 (06:07→17:06)
[2017-10-22] MEDS: ACETAMINOPHEN IV 100 ML IV SCH (06:08)
[2017-10-22] MEDS: LEVOTHYROXINE 200 MCG TAB PO SCH (06:08)
[2017-10-22] MEDS: INSULIN ASPART 100 UNITS/ML 3 ML PEN SC SCH ×5 (07:00→21:42)
--- NOTE | 2017-10-22 07:26 | DIAGNOSTIC IMAGING REPORT ---
CHEST ONE VIEW PORTABLE CLINICAL HISTORY: PNA COMPARISON STUDY: Chest CT September 12, 2017 and chest radiograph October 20, 2017. FINDINGS: Cardiomegaly is unchanged. There is no pneumothorax or pleural effusion. Mild right lower lung opacity is noted. This has improved. There is mild interstitial prominence. This is likely chronic. IMPRESSION: Persistent but improved right lower lung opacity which favors improving pneumonia. Continued radiographic follow up is recommended. Electronically signed by: Humberto Montanez M.D. 10/22/2017 7:25 AM Dictated Date/Time: 10/22/2017 7:23 AM
[2017-10-22] MEDS ORDERED: VANCOMYCIN TROUGH ONE (07:30)
[2017-10-22] MEDS: ENOXAPARIN 40 MG/0.4 ML SYR SQ SCH (07:53)
[2017-10-22] MEDS: VENLAFAXINE HCL XR 150 MG CAPXR PO SCH (07:53)
[2017-10-22] MEDS: METOPROLOL SUCC 50MG EXT REL TAB PO SCH (07:53)
[2017-10-22] MEDS: BUDESONIDE/FORMOTEROL FUMARATE 80/4.5 60 PUFFS/INHALER INH SCH ×2 (07:54→21:36)
[2017-10-22] MEDS: IPRATROPIUM BROMIDE/ALBUTEROL respimat INH INH SCH ×4 (07:54→21:36)
[2017-10-22] MEDS: LISINOPRIL 5 MG TAB PO SCH (07:54)
[2017-10-22] MEDS: VANCOMYCIN INJ 1,250 MG in SODIUM CHLORIDE 0.9% 250ML 250 ML IV SCH (07:55)
[2017-10-22] MEDS: FAMOTIDINE 20 MG TAB PO SCH (07:55)
[2017-10-22] MEDS: INSULIN GLARGINE SOLOSTAR 100 UNITS/ML 3 ML PEN SC SCH (07:57)
[2017-10-22] MEDS: OXYCODONE HCL IR 5 MG TAB (IMMEDIATE RELEASE) PO PRN ×2 (08:12→22:15)
--- NOTE | 2017-10-22 10:52 | Surgery Progress Note ---
Surgery Progress Note Date of Service Oct 22, 2017. Subjective Post OP Day: 4 + feeling well, + complaints (ileostomy leaking), + pain controlled, + diet ( regular), No nausea (appetite decrased) Objective Vital Signs: Date Time Temp Pulse Resp B/P (MAP) Pulse Ox O2 Delivery O2 Flow Rate FiO2 10/22/17 08:00 96 Nasal Cannula 2.0 10/22/17 07:30 37.1 109 20 125/82 (96) 96 4.0 10/22/17 04:08 37.3 93 20 124/78 (93) 100 Nasal Cannula 4.0 10/22/17 04:00 Nasal Cannula 4.0 10/22/17 00:00 Nasal Cannula 4.0 10/21/17 23:43 36.8 100 20 132/89 (103) 100 Nasal Cannula 4.0 10/21/17 20:17 36.9 104 16 106/75 (85) 92 Nasal Cannula 4.0 10/21/17 20:00 Nasal Cannula 2.0 10/21/17 15:47 37.1 113 16 132/84 (100) 96 Nasal Cannula 4.0 10/21/17 12:27 37.1 109 26 141/65 (90) 95 10/21/17 12:00 Nasal Cannula 4.0 Physical Exam: RIRI drainage (40 serous), urine output (450) Abdomen: non distended, soft, + pertinent finding (+ileostomy output) Incision(s): clean, dry Laboratory Results: Results Past 24 Hours Test 10/21/17 14:05 10/21/17 16:25 10/21/17 20:40 10/22/17 06:59 Range/Units Bedside Glucose 170 148 209 161 70-90 mg/dl Test 10/22/17 07:26 Range/Units Vancomycin Level Trough 13.8 SEE COMMENT mcg/ml Assessment & Plan s/p LAR, protective ileostomy Anemia Pneumonia tolerating diet will decrease IVF on Vanco/Zosyn H&H stable transfer to floor when ok with medicine cont therapy
--- NOTE | 2017-10-22 14:57 | Progress Note ---
Subjective Date of Service: Oct 22, 2017. Subjective Pt evaluation today including: conversation w/ patient, physical exam, chart review, lab review, review of inpatient medication list Problem List Medical Problems: (1) Abdominal pain Status: Acute (2) Abscess of labia majora Status: Acute (3) Acute vomiting Status: Acute (4) Cellulitis of labia majora Status: Acute (5) Hyperglycemia Status: Acute (6) Hyperglycemia due to type 2 diabetes mellitus Status: Acute (7) Hypertension Status: Acute (8) Low back pain Status: Acute (9) Morbid obesity Status: Acute (10) New onset a-fib Status: Acute (11) Pulmonary nodule Status: Acute (12) Rectal bleed Status: Acute (13) Rectal bleeding Status: Acute (14) Rectal cancer Status: Acute (15) Sepsis Status: Acute (16) Shortness of breath Status: Acute (17) Skin abscess Status: Acute (18) Urinary tract infection Status: Acute Review of Systems Constitutional: No see HPI, No fever, No chills, No sweats, No weight loss, No weakness, No fatigue, No problem reported Eyes: No see HPI, No worsening of vision, No eye pain, No redness, No discharge , No diplopia, No problem reported ENT: No see HPI, No hearing loss, No unusual epistaxis, No nasal symptoms, No sore throat, No tinnitus, No dental problems, No trouble swallowing, No problem reported Respiratory: No see HPI, No cough, No sputum, No wheezing, No shortness of breath, No dyspnea on exertion, No dyspnea at rest, No hemoptysis, No problem reported Cardiac: No see HPI, No chest pain, No orthopnea, No PND, No edema, No claudication, No palpitations, No problem reported Breast: No see HPI, No breast lump, No change in shape, No nipple discharge, No breast pain, No problem reported Abdomen: No see HPI, No pain, No nausea, No vomiting, No diarrhea, No constipation, No GI bleeding, No problem reported Musculoskeletal: No see HPI, No joint pain, No muscle pain, No swelling, No calf pain, No problem reported Female : No see HPI, No dysuria, No urinary frequency, No hematuria, No incontinence, No abnormal vaginal bleeding, No vaginal discharge, No problem reported Neurologic: No see HPI, No memory loss, No paralysis, No weakness, No numbness/ tingling, No vertigo, No balance problems, No problem reported Psychiatric: No see HPI, No depression symptoms, No anhedonism, No anxiety, No insomnia, No substance abuse, No problem reported Heme: No see HPI, No abnormal bleeding/bruising, No clotting problems, No swollen lymph nodes, No night sweats, No problem reported Endo: No see HPI, No fatigue, No excessive thirst, No excessive urination, No problem reported Skin: No see HPI, No rash, No itch, No new/changing skin lesions, No color change, No bleeding, No problem reported Objective Vital Signs Date Time Temp Pulse Resp B/P (MAP) Pulse Ox O2 Delivery O2 Flow Rate FiO2 10/22/17 12:00 96 Nasal Cannula 2.0 10/22/17 11:08 36.8 104 20 137/90 (106) 99 4.0 10/22/17 08:00 96 Nasal Cannula 2.0 10/22/17 07:30 37.1 109 20 125/82 (96) 96 4.0 10/22/17 04:08 37.3 93 20 124/78 (93) 100 Nasal Cannula 4.0 10/22/17 04:00 Nasal Cannula 4.0 10/22/17 00:00 Nasal Cannula 4.0 10/21/17 23:43 36.8 100 20 132/89 (103) 100 Nasal Cannula 4.0 10/21/17 20:17 36.9 104 16 106/75 (85) 92 Nasal Cannula 4.0 10/21/17 20:00 Nasal Cannula 2.0 10/21/17 15:47 37.1 113 16 132/84 (100) 96 Nasal Cannula 4.0 Physical Exam General Appearance: no apparent distress, + obese Eyes: normal inspection, EOMI ENT: normal ENT inspection, hearing grossly normal Neck: supple Respiratory/Chest: chest non-tender, lungs clear, normal breath sounds, no respiratory distress, no accessory muscle use Cardiovascular: regular rate, rhythm, no edema, no gallop, no JVD, no murmur Abdomen: normal bowel sounds, non tender, soft, no organomegaly, no pulsatile mass Extremities: normal range of motion, non-tender, normal inspection, no pedal edema, no calf tenderness Neurologic/Psychiatric: maid cleaning cooking II-XII nml as tested, no motor/sensory deficits, alert, normal mood/affect, oriented x 3 Skin: normal color, warm/dry, no rash Laboratory Results Last 24 Hours Test 10/21/17 16:25 10/21/17 20:40 10/22/17 06:59 10/22/17 07:26 Bedside Glucose 148 mg/dl 209 mg/dl 161 mg/dl Vancomycin Level Trough 13.8 mcg/ml Test 10/22/17 11:15 Bedside Glucose 170 mg/dl Assessment and Plan 51-year-old female with history of hypothyroidism, obstructive sleep apnea, paroxysmal atrial fibrillation, dyslipidemia, essential hypertension, diabetes mellitus type 2 who recently was diagnosed with adenocarcinoma of the colon. Patient had an uneventful rectosigmoid resection and ileostomy. Assessment Adenocarcinoma of: Status post rectosigmoid resection and ileostomy Right lower lobe pneumonia, possible aspiration but cannot rule out hospital- acquired pneumonia Hypoxic respiratory failure secondary to above Diabetes mellitus type 2 Hypertension/essential Paroxysmal atrial fibrillation Morbid obesity Obstructive sleep apnea Dyslipidemia Plan Procedure went uneventful, cleared by surgery for discharge in a.m. Nasal MRSA surveillance came back negative, DC vancomycin Ordered stat EKG to evaluate QT, if no prolongation will switch Zosyn to levofloxacin oral Continue sliding scale insulin Continue lisinopril, consider starting Lasix upon discharge Continue beta yudy, start anticoagulation when cleared by surgery CPAP at night Evaluate the need of oxygen prior to discharge Continued [facility] stay due to: multiple IV medications needed Discharge planning: [facility] in a.m. Continued [facility] stay due to: multiple IV medications needed Discharge planning: rehab hospital
[2017-10-22] MEDS ORDERED: VANCOMYCIN INJ 1,500 MG in SODIUM CHLORIDE 0.9% 500ML 500 ML IV SCH (18:00)
[2017-10-22] MEDS: MONTELUKAST SOD 10 MG TAB PO SCH (21:36)
[2017-10-23] MEDS: PIPERACILL/TAZOBAC IV 4.5 GM in DEXTROSE 5% 100ML IV SCH ×3 (01:44→19:41)
[2017-10-23] MEDS: LEVOTHYROXINE 200 MCG TAB PO SCH (05:45)
[2017-10-23] MEDS: LACTATED RINGER'S 1000ML 1,000 ML IV SCH ×2 (05:52→19:42)
[2017-10-23 07:18] VITALS: BP 132/89; PULSE 91; TEMP 36.7; O2SAT 98
[2017-10-23] MEDS: OXYCODONE HCL IR 5 MG TAB (IMMEDIATE RELEASE) PO PRN (07:38)
--- NOTE | 2017-10-23 07:52 | Surgery Progress Note ---
Surgery Progress Note Date of Service Oct 23, 2017. Subjective Post OP Day: 5 + complaints (some abdominal pain this AM), + diet (appetite decreased), No nausea Objective Vital Signs: Date Time Temp Pulse Resp B/P (MAP) Pulse Ox O2 Delivery O2 Flow Rate FiO2 10/22/17 23:45 36.9 91 18 135/86 (102) 98 Nasal Cannula 2.0 10/22/17 23:34 Nasal Cannula 2.0 10/22/17 16:25 99 Nasal Cannula 2.0 10/22/17 16:20 36.6 93 16 139/88 (105) 99 Nasal Cannula 2.0 10/22/17 15:56 36.8 104 20 96 2.0 10/22/17 15:26 36.7 93 16 129/84 (99) 100 Nasal Cannula 4.0 10/22/17 12:00 96 Nasal Cannula 2.0 10/22/17 11:08 36.8 104 20 137/90 (106) 99 4.0 10/22/17 08:00 96 Nasal Cannula 2.0 Physical Exam: RIRI drainage (50 cc serous) Abdomen: non distended, soft Incision(s): clean, no erythema Laboratory Results: Results Past 24 Hours Test 10/22/17 11:15 10/22/17 17:02 10/22/17 20:47 10/23/17 04:44 Range/Units Bedside Glucose 170 161 168 70-90 mg/dl Assessment & Plan s/p LAR, protective ileostomy Anemia Pneumonia ok to anticoagulate for A-fib d/c planning, [facility] will d/c with drain
[2017-10-23] MEDS: METOPROLOL SUCC 50MG EXT REL TAB PO SCH (08:46)
[2017-10-23] MEDS: ENOXAPARIN 40 MG/0.4 ML SYR SQ SCH (08:46)
[2017-10-23] MEDS: FAMOTIDINE 20 MG TAB PO SCH (08:47)
[2017-10-23] MEDS: VENLAFAXINE HCL XR 150 MG CAPXR PO SCH (08:47)
[2017-10-23] MEDS: LISINOPRIL 5 MG TAB PO SCH (08:47)
[2017-10-23] MEDS: IPRATROPIUM BROMIDE/ALBUTEROL respimat INH INH SCH ×4 (08:48→22:21)
[2017-10-23] MEDS: BUDESONIDE/FORMOTEROL FUMARATE 80/4.5 60 PUFFS/INHALER INH SCH ×2 (08:48→22:21)
[2017-10-23] MEDS: INSULIN ASPART 100 UNITS/ML 3 ML PEN SC SCH ×4 (09:04→22:24)
[2017-10-23] MEDS: INSULIN GLARGINE SOLOSTAR 100 UNITS/ML 3 ML PEN SC SCH (09:05)
[2017-10-23 09:26] LABS: BASO % 0.3 %; BASO ABS # 0.03 K/uL (0-0.2); EOS % 1.5 %; EOS ABS # 0.16 K/uL (0-0.5); HEMATOCRIT 29.7 % (37-47); HEMOGLOBIN 9.9 g/dL (12.0-16.0); IG# 0.05 K/uL (0.00-0.02); LYMPH % 16.2 %; LYMPH ABS # 1.77 K/uL (1.2-3.4); MEAN CELL VOLUME 82.5 fL (80-100); MEAN CORPUSCULAR HEMOGLOBIN 27.5 pg (25-34); MEAN CORPUSCULAR HGB CONC 33.3 g/dl (32-36); MEAN PLATELET VOLUME 9.2 fL (7.4-10.4); MONO % 9.9 %; MONO ABS # 1.08 K/uL (0.11-0.59); NEUT % 71.6 %; NEUT ABS # 7.81 K/uL (1.4-6.5); NUCLEATED RED BLOOD CELL ABS 0.03 K/uL (0-0); PLATELET COUNT 251 K/uL (130-400); RED CELL DISTRIBUTION WIDTH CV 14.8 % (11.5-14.5); RED CELL DISTRIBUTION WIDTH SD 43.9 fL (36.4-46.3)
[2017-10-23 10:12] LABS: ALBUMIN 2.1 gm/dl (3.4-5.0); CREATININE 0.46 mg/dl (0.60-1.20); POTASSIUM 3.7 mmol/L (3.5-5.1)
[2017-10-23] MEDS ORDERED: INSDGIPEN SC (10:22)
[2017-10-23] MEDS ORDERED: OXYC-57 PO ×2 (10:22→10:37)
--- NOTE | 2017-10-23 10:28 | Discharge Instructions ---
Discharge Instructions Date of Service Oct 23, 2017. Admission Reason for Admission: Rectal Cancer Discharge Discharge Diagnosis / Problem: Low anterior resection, protective ileostomy, DM , A-fib, pneumonia Discharge Goals Goal(s): Decrease discomfort Activity Recommendations Activity Level: Assistance Required Therapies: Physical Therapy, Occupational Therapy Lifting Limitations: no more than 10 pounds Exercise/Sports Limitations: gradually increase as tolerated Shower/Bathe: no limitations . Additional Information Patient informed of condition: Yes Advance Directives: No DNR: No Level of Care: Acute Rehab Communicable Disease: Yes (history of MRSA) Prognosis: Improving Instructions / Follow-Up Instructions / Follow-Up Dr. Rogers in 1 week, [phone] Current Hospital Diet Patient's current hospital diet: Diabetes Type 2 Diet, Low Fat Diet Discharge Diet Recommended Diet: Diabetes Type 2 Diet Procedures Procedures Performed: Attempted Laparoscopic, converted to open laparotomy low anterior resection, intra-op sigmoidoscopy diverting ileostomy Pending Studies Studies pending at discharge: yes List of pending studies: pathology Laboratory Results Hemoglobin A1c Test 10/04/17 06:15 Range/Units Estimated Average Glucose 249 mg/dl Hemoglobin A1c 10.3 H 4.5-5.6 % Lipid Panel Test 10/03/17 23:10 Range/Units Triglycerides Level 198 H 0-150 mg/dl Cholesterol Level 154 0-200 mg/dl HDL Cholesterol 21 mg/dl Cholesterol/HDL Ratio 7.3 LDL Cholesterol, Calculated 93 mg/dl Medical Emergencies . Who to Call and When: Medical Emergencies: If at any time you feel your situation is an emergency, please call 911 immediately. . Non-Emergent Contact Non-Emergency issues call your: Surgeon Call Non-Emergent contact if: you have a fever, temperature is above 101.5, wound has increased drainage, wound has increased redness . . "Provider Documentation" section prepared by Rafael Nolasco. . Core Measure Problem Core Measures: None
[2017-10-23] MEDS ORDERED: INSU1.2I SQ (10:37)
[2017-10-23] MEDS ORDERED: LVNIS40 SQ (10:37)
[2017-10-23] MEDS ORDERED: RXC5 PO (10:37)
[2017-10-23] MEDS ORDERED: LVQ250 OR (10:37)
[2017-10-23] MEDS ORDERED: APIX1TAB3 PO (10:38)
--- NOTE | 2017-10-23 11:01 | Progress Note ---
Progress Note Date of Service Oct 23, 2017. Progress Note As you were started on anticoagulation/blood thinner Do not to take any [id number] pain medicine except Tylenol (do not take any large doses of aspirin, ibuprofen, Motrin, Aleve, Advil, naproxen, diclofenac sodium, oral Voltaren, also not allowed to take fish oil as all these medications increase your incidence of bleeding) You can take Tylenol as needed for pain but not more than 3000 mg per day as a total dose (that is the maximum of 6 tablet, 500 mg each, divided throughout the day) , if you take more than the total of 3000 mg of Tylenol throughout the day you might get liver damage. If you have any liver disease and was instructed by your physician not to take Tylenol in this case of course do not take Tylenol If Tylenol is not sufficient to control your pain or urine not allowed to take Tylenol for any liver disease talk to your doctor about prescribing a pain medicine. In case of bleeding, apply firm pressure at the bleeding site and call 911 if bleeding doesn't stop within minutes
--- NOTE | 2017-10-23 11:11 | Discharge Summary ---
Discharge Summary Date of Service Oct 23, 2017. Admission Date/Reason Oct 18, 2017 at 16:44 Rectal Cancer. Discharge Date/Disposition Oct 25, 2017 Rehab Diagnosis Principal Diagnosis: Rectal cancer Secondary Diagnoses/Problems: Right lower lobe pneumonia, possible aspiration but cannot rule out hospital- acquired pneumonia Hypoxic respiratory failure secondary to above Diabetes mellitus type 2 Hypertension/essential Paroxysmal atrial fibrillation Morbid obesity Obstructive sleep apnea Dyslipidemia Acute (blood loss) on chronic anemia Procedure(s) Performed Attempted Laparoscopic, converted to open laparotomy low anterior resection, intra-op sigmoidoscopy, diverting loop ileostomy Consultations [facility] Medication Reconciliation New Medications: Apixaban (Eliquis) 5 Mg Tab 5 MG PO BID for 30 Days, #60 TAB starting 10/24 give one lovenox daily X 3 days , last dose 10/26 then from 10/27 start Eliquis 5mg po BID Levofloxacin (Levofloxacin) 250 Mg Tab 500 MG OR DAILY for 5 Days Oxycodone/Acetaminophen 5MG/325MG (Percocet 5MG/325MG) Tab 1 TABLETS PO Q4H PRN for Pain, #12 TAB Enoxaparin (Enoxaparin Sodium) 40 Mg/0.4 Ml Inj 40 MG SQ QAM for 3 Days, #3 SYR starting 10/24 give one lovenox daily X 3 days , last dose 10/26 then from 10/27 start Eliquis 5mg po BID Oxycodone HCl (Oxycodone HCl) 5 Mg Tab 5-10 MG PO Q4H PRN for Pain for 7 Days, #20 TAB Changed Medications: Insulin Glargine (Toujeo Solostar) 300 Unit/Ml Inj 15 UNITS SQ DAILY for 30 Days, #1 PEN (Changed from: 60 ) Continued Medications: Albuterol Hfa (Ventolin Hfa) 200 Puffs/62656 Mcg Aers 2-4 PUFFS INH Q6H PRN for ASTHMA, #1 INHALER Budesonide/Formoterol Fumarate (Symbicort 80/4.5 Inhaler) Aero 2 PUFFS INH BID, INHALER Cholestyramine (Bulk) (Cholestyramine) 1 Pow Pow 1 PKT DAILY Famotidine (Pepcid) 20 Mg Tab 20 MG PO DAILY, TAB Furosemide (Lasix) 20 Mg Tab 20 MG PO QAM, TAB Insulin Aspart (Novolog) 100 Units/Ml Inj UNITS SQ TIDM SLIDING SCALE Ipratropium-Albuterol (Combivent Respimat) 1 Aer Aer 1 PUFFS INH QID, INH Lactobacillus Acidophilus (Lactinex) Tab 4 TAB PO TID, TAB Levothyroxine Sodium (Levothyroxine Sodium) 200 Mcg Tab 6 TAB PO DAILY for 30 Days, #180 TAB 5 Refills Lisinopril (Lisinopril) 5 Mg Tab 5 MG PO QAM Loratadine (Claritin) 10 Mg Cap 10 MG PO QAM Magnesium Oxide (Mag-Ox) 400 Mg Tab 400 MG PO DAILY, TAB Meclizine Hcl (Meclizine Hcl) 25 Mg Tab 25 MG PO TID PRN for Dizziness or Vertigo Metoprolol Succinate (Toprol Xl) 50 Mg Tabcr 50 MG PO DAILY, #30 TAB Montelukast Sod (Montelukast Sodium) 10 Mg Tab 10 MG PO HS Mupirocin 2% (Bactroban 2%) 30 Gm Cr 1 APPLN EXT BID PRN for PRN, TUBE Nitroglycerin (Nitrostat) 0.4 Mg Tab 0.4 MG UT UD PRN for Chest Pain Ondansetron Hcl (Zofran) 8 Mg Tab 8 MG PO Q6 PRN for Nausea, TAB Potassium Chloride (Micro-K Ext Rel) 10 Meq Capcr 10 MEQ PO QAM, CAP Simvastatin (Zocor) 40 Mg Tab 40 MG PO QPM, TAB Venlafaxine Hcl (Effexor Extended Rel) 150 Mg Capcr 150 MG PO QAM [saline nasal spray] () 2 SPRY NA QID Discontinued Medications: Aspirin (Aspirin Ec) 81 Mg Tab 81 MG PO DAILY Referrals Follow up Referrals: Surgery Referral - Within 1-2 Weeks with John Rogers D.O. Admission Physical Exam As per Admitting History & Physical. Hospital Course 51 y/o female taken to the OR on 10/18/17 for planned laparoscopic resection of rectosigmoid cancer. The tumor was lower than expected requiring an open low anterior resection. She was placed in PCU post-op given multiple other conditions. Toprol was continued, lisinopril was later added back. Lovenox was was used for daily DVT prophylaxis. Recently diagnosed with A-fib (10/08/17) although anticoagulation was held due to upcoming surgery. Anticoagulation will be initiated post-op. Evaluation for WBC 13,000 on POD 2 revealed RLL pneumonia on CXR and she was started on Zosyn and Vanco. WBC and XR were improved two days later. Blood & urine cultures and nasal swab for MRSA were all negative. She was transferred to the surgical floor POD 4. Preop Hgb was 12, post op has been stable around 10, no transfusions were necessary. Has had PT/OT and requires continued assistance with daily activity and stomal care. Arrangements made for rehab. Discharge Instructions Please refer to the electronic Patient Visit Report (Discharge Instructions) for additional information.
[2017-10-23 11:45] VITALS: O2SAT 92
--- NOTE | 2017-10-23 12:07 | DIAGNOSTIC IMAGING REPORT ---
CT SCAN OF THE BRAIN WITHOUT IV CONTRAST CLINICAL HISTORY: Drowsiness. Change in mental status. COMPARISON STUDY: CT of the brain dated 10/03/2017. TECHNIQUE: Unenhanced axial CT scan of the brain is performed from the vertex to the skull base. A dose lowering technique was utilized adhering to the principles of ALARA. CT DOSE: 720.95 mGycm FINDINGS: Brain parenchyma: The brain parenchyma is normal in appearance. There is no hemorrhage, mass effect, or evidence of acute territorial ischemia by CT criteria. Rucker-white matter is preserved. No extra-axial fluid collection is seen. Ventricles, sulci, cisterns: Normal in configuration. Intracranial vasculature: The visualized intracranial vasculature at the skull base is normal in appearance. Calvarium: Unremarkable. Sinuses and mastoids: Mucosal thickening and retention cysts are seen in the left maxillary antrum. Trace mucosal thickening is also seen in the right maxillary antrum and the left sphenoid sinus. The remaining paranasal sinuses are clear. The mastoid air cells are well pneumatized. Orbits: The bony orbits are grossly intact. IMPRESSION: There is no hemorrhage, mass effect, or evidence of acute territorial ischemia by CT criteria. Electronically signed by: Tacho Delatorre M.D. 10/23/2017 12:05 PM Dictated Date/Time: 10/23/2017 12:02 PM
[2017-10-23 15:45] VITALS: BP 110/66; PULSE 106; TEMP 36.3; O2SAT 97
--- NOTE | 2017-10-23 17:38 | Progress Note ---
Subjective Date of Service: Oct 23, 2017. Subjective Pt evaluation today including: conversation w/ patient, conversation w/ family , physical exam, chart review, lab review, review of studies, review of inpatient medication list Voiding: no voiding problems Was slightly lethargic earlier. Discussed with her daughter. Ordered CT head and arterial blood gases. Problem List Medical Problems: (1) Abdominal pain Status: Acute (2) Abscess of labia majora Status: Acute (3) Acute vomiting Status: Acute (4) Cellulitis of labia majora Status: Acute (5) Hyperglycemia Status: Acute (6) Hyperglycemia due to type 2 diabetes mellitus Status: Acute (7) Hypertension Status: Acute (8) Low back pain Status: Acute (9) Morbid obesity Status: Acute (10) New onset a-fib Status: Acute (11) Pulmonary nodule Status: Acute (12) Rectal bleed Status: Acute (13) Rectal bleeding Status: Acute (14) Rectal cancer Status: Acute (15) Sepsis Status: Acute (16) Shortness of breath Status: Acute (17) Skin abscess Status: Acute (18) Urinary tract infection Status: Acute Review of Systems Constitutional: No see HPI, No fever, No chills, No sweats, No weight loss, No weakness, No fatigue, No problem reported Eyes: No see HPI, No worsening of vision, No eye pain, No redness, No discharge , No diplopia, No problem reported ENT: No see HPI, No hearing loss, No unusual epistaxis, No nasal symptoms, No sore throat, No tinnitus, No dental problems, No trouble swallowing, No problem reported Respiratory: No see HPI, No cough, No sputum, No wheezing, No shortness of breath, No dyspnea on exertion, No dyspnea at rest, No hemoptysis, No problem reported Cardiac: No see HPI, No chest pain, No orthopnea, No PND, No edema, No claudication, No palpitations, No problem reported Breast: No see HPI, No breast lump, No change in shape, No nipple discharge, No breast pain, No problem reported Abdomen: No see HPI, No pain, No nausea, No vomiting, No diarrhea, No constipation, No GI bleeding, No problem reported Musculoskeletal: No see HPI, No joint pain, No muscle pain, No swelling, No calf pain, No problem reported Female : No see HPI, No dysuria, No urinary frequency, No hematuria, No incontinence, No abnormal vaginal bleeding, No vaginal discharge, No problem reported Neurologic: No see HPI, No memory loss, No paralysis, No weakness, No numbness/ tingling, No vertigo, No balance problems, No problem reported Psychiatric: No see HPI, No depression symptoms, No anhedonism, No anxiety, No insomnia, No substance abuse, No problem reported Heme: No see HPI, No abnormal bleeding/bruising, No clotting problems, No swollen lymph nodes, No night sweats, No problem reported Endo: No see HPI, No fatigue, No excessive thirst, No excessive urination, No problem reported Skin: No see HPI, No rash, No itch, No new/changing skin lesions, No color change, No bleeding, No problem reported Medications Current Inpatient Medications Medications (Trade) Dose Ordered Sig/Viviana Route Start Time Stop Time Status Last Admin Dose Admin Lactated Ringer's 1,000 ml @ 75 mls/hr [id number] IV 10/18/17 18:55 11/17/17 18:54 10/22/17 17:06 75 MLS/HR Glucose (Glucose 40% Gel) 15-30 GRAMS 15 GRAMS... UD PRN PO 10/18/17 16:45 11/17/17 16:44 Glucose (Glucose Chew Tab) 4-8 Tablets 4 Tabl... UD PRN PO 10/18/17 16:45 11/17/17 16:44 Dextrose (Dextrose 50% 50ML Syringe) 25-50ML OF 50% DW IV FOR... UD PRN IV 10/18/17 16:45 11/17/17 16:44 Glucagon (Glucagon Inj) 1 mg UD PRN SQ 10/18/17 16:45 11/17/17 16:44 Albuterol (Ventolin Hfa Inhaler) 2 puffs Q6H PRN INH 10/18/17 16:45 11/17/17 16:44 Budesonide/ Formoterol Fumarate (Symbicort 80/ 4.5 Inh) 2 puffs BID INH 10/18/17 21:00 11/17/17 20:59 10/23/17 08:48 2 PUFFS Famotidine (Pepcid Tab) 20 mg DAILY PO 10/19/17 09:00 11/18/17 08:59 10/23/17 08:47 20 MG Albuterol/ Ipratropium (Combivent Respimat Inh) 1 puffs QID INH 10/18/17 17:00 11/17/17 16:59 10/23/17 13:24 1 PUFFS Levothyroxine Sodium (Synthroid Tab) 1,200 mcg DAILYBB PO 10/19/17 06:00 11/18/17 06:59 10/23/17 05:45 1,200 MCG Metoprolol Succinate (Toprol Xl Tab) 50 mg DAILY PO 10/19/17 09:00 11/18/17 08:59 10/23/17 08:46 50 MG Montelukast Sodium (Singulair Tab) 10 mg HS PO 10/18/17 21:00 11/17/17 20:59 10/22/17 21:36 10 MG Nitroglycerin (Nitrostat Tab) 0.4 mg UD PRN UT 10/18/17 16:45 11/17/17 16:44 Ondansetron HCl (Zofran Tab) 8 mg Q6 PRN PO 10/18/17 16:45 11/17/17 16:44 10/19/17 16:34 8 MG Venlafaxine HCl (effeXOR EXTENDED REL CAP) 150 mg QAM PO 10/19/17 09:00 11/18/17 08:59 10/23/17 08:47 150 MG Insulin Aspart (novoLOG ASPART) SLIDING SCALE If C... ACHS SC 10/19/17 11:00 11/17/17 20:59 10/23/17 13:37 2 UNITS Enoxaparin Sodium (Lovenox Inj) 40 mg QAM SQ 10/19/17 09:00 11/18/17 08:59 10/23/17 08:46 40 MG Lisinopril (Zestril Tab) 5 mg QAM PO 10/21/17 09:00 11/20/17 08:59 10/23/17 08:47 5 MG Miscellaneous Information (Consult) 1 ea UD PRN N/A 10/20/17 20:15 11/19/17 20:14 Piperacillin Sod/ Tazobactam Sod 4.5 gm/Dextrose 120 ml @ 30 mls/hr Q8H IV 10/21/17 02:00 10/28/17 01:59 10/23/17 10:10 30 MLS/HR Insulin Glargine (Lantus Solostar Pen) 15 units DAILY SC 10/21/17 09:00 11/20/17 08:59 10/23/17 09:05 15 UNITS Oxycodone HCl (Roxicodone Immediate Rel Tab) 5 mg Q6H PRN PO 10/23/17 15:15 11/03/17 14:59 Objective Vital Signs Date Time Temp Pulse Resp B/P (MAP) Pulse Ox O2 Delivery O2 Flow Rate FiO2 10/23/17 15:45 36.3 106 18 110/66 (81) 97 Nasal Cannula 2.0 10/23/17 11:45 92 Room Air 10/23/17 07:18 36.7 91 20 132/89 (103) 98 Nasal Cannula 2.0 10/23/17 07:15 Nasal Cannula 2.0 10/22/17 23:45 36.9 91 18 135/86 (102) 98 Nasal Cannula 2.0 10/22/17 23:34 Nasal Cannula 2.0 Physical Exam General Appearance: no apparent distress, + obese Eyes: normal inspection, EOMI ENT: normal ENT inspection, hearing grossly normal Neck: supple Respiratory/Chest: chest non-tender, lungs clear, normal breath sounds, no respiratory distress, no accessory muscle use Cardiovascular: regular rate, rhythm, no edema, no gallop, no JVD, no murmur Abdomen: normal bowel sounds, non tender, soft, no organomegaly, no pulsatile mass Extremities: normal range of motion, non-tender, normal inspection, no pedal edema, no calf tenderness Neurologic/Psychiatric: 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 II-XII nml as tested, no motor/sensory deficits, normal mood/affect, oriented x 3, + pertinent finding (was slightly lethargic, but easily arousable and fully awake after aroused) Skin: normal color, warm/dry, no rash Laboratory Results Last 24 Hours Test 10/22/17 20:47 10/23/17 08:20 10/23/17 09:10 10/23/17 10:53 Bedside Glucose 168 mg/dl 181 mg/dl White Blood Count 10.90 K/uL Red Blood Count 3.60 M/uL Hemoglobin 9.9 g/dL Hematocrit 29.7 % Mean Corpuscular Volume 82.5 fL Mean Corpuscular Hemoglobin 27.5 pg Mean Corpuscular Hemoglobin Concent 33.3 g/dl Platelet Count 251 K/uL Mean Platelet Volume 9.2 fL Neutrophils (%) (Auto) 71.6 % Lymphocytes (%) (Auto) 16.2 % Monocytes (%) (Auto) 9.9 % Eosinophils (%) (Auto) 1.5 % Basophils (%) (Auto) 0.3 % Neutrophils # (Auto) 7.81 K/uL Lymphocytes # (Auto) 1.77 K/uL Monocytes # (Auto) 1.08 K/uL Eosinophils # (Auto) 0.16 K/uL Basophils # (Auto) 0.03 K/uL RDW Standard Deviation 43.9 fL RDW Coefficient of Variation 14.8 % Immature Granulocyte % (Auto) 0.5 % Immature Granulocyte # (Auto) 0.05 K/uL Nucleated RBC Absolute Count (auto) 0.03 K/uL Nucleated Red Blood Cells % 0.2 % Sodium Level 137 mmol/L Potassium Level 3.7 mmol/L Chloride Level 100 mmol/L Carbon Dioxide Level 29 mmol/L Anion Gap 8.0 mmol/L Blood Urea Nitrogen 11 mg/dl Creatinine 0.46 mg/dl Est Creatinine Clear Calc Drug Dose 154.8 ml/min Estimated GFR () 131.6 Estimated GFR (Non- 113.6 BUN/Creatinine Ratio 22.9 Random Glucose 165 mg/dl Calcium Level 9.0 mg/dl Magnesium Level 1.3 mg/dl Total Bilirubin 0.9 mg/dl Aspartate Amino Transf (AST/SGOT) 17 U/L Alanine Aminotransferase (ALT/SGPT) 12 U/L Alkaline Phosphatase 65 U/L Total Protein 6.0 gm/dl Albumin 2.1 gm/dl Globulin 3.9 gm/dl Albumin/Globulin Ratio 0.5 Arterial Blood pH 7.45 Arterial Blood Partial Pressure CO2 41 mmHg Arterial Blood Partial Pressure O2 101 mm/Hg Arterial Blood HCO3 28 mmol/L Arterial Blood Oxygen Saturation 97.3 % Arterial Blood Base Excess 3.7 mEq/L Arterial Blood Gas Delivery 2L Gerber Test POS Test 10/23/17 17:15 Bedside Glucose 172 mg/dl Assessment and Plan 51-year-old female with history of hypothyroidism, obstructive sleep apnea, paroxysmal atrial fibrillation, dyslipidemia, essential hypertension, diabetes mellitus type 2 who recently was diagnosed with adenocarcinoma of the colon. Patient had an uneventful rectosigmoid resection and ileostomy. Assessment Adenocarcinoma of: Status post rectosigmoid resection and ileostomy Right lower lobe pneumonia, possible aspiration but cannot rule out hospital- acquired pneumonia Hypoxic respiratory failure secondary to above Slightly lethargic this morning Diabetes mellitus type 2 Hypertension/essential Paroxysmal atrial fibrillation Morbid obesity Obstructive sleep apnea Dyslipidemia Plan Procedure went uneventful, cleared by surgery for discharge in a.m. Nasal MRSA surveillance came back negative, DC vancomycin Ordered stat EKG to evaluate QT, there was no QTC prolongation and Zosyn was switched to levofloxacin oral Due to her lethargy, CT scan head was ordered and was negative, ABG was ordered and was within normal limits, IV pain medications were stopped Continue sliding scale insulin Continue lisinopril, consider starting Lasix upon discharge Continue beta yudy, start anticoagulation when cleared by surgery CPAP at night Evaluate the need of oxygen prior to discharge Continued [facility] stay due to: multiple IV medications needed Discharge planning: [facility] in a.m. Continued [facility] stay due to: multiple IV medications needed Discharge planning: rehab hospital
[2017-10-23] MEDS: MONTELUKAST SOD 10 MG TAB PO SCH (22:22)
[2017-10-23 23:50] VITALS: BP 121/81; PULSE 90; TEMP 36.9; O2SAT 98
[2017-10-24] MEDS: PIPERACILL/TAZOBAC IV 4.5 GM in DEXTROSE 5% 100ML IV SCH ×3 (01:29→18:38)
[2017-10-24] MEDS: OXYCODONE HCL IR 5 MG TAB (IMMEDIATE RELEASE) PO PRN ×2 (03:00→08:45)
[2017-10-24] MEDS ORDERED: VANCOMYCIN TROUGH ONE (05:30)
[2017-10-24] MEDS: LEVOTHYROXINE 200 MCG TAB PO SCH (05:30)
[2017-10-24 07:15] VITALS: BP 114/79; PULSE 96; TEMP 37; O2SAT 93
[2017-10-24] MEDS: INSULIN ASPART 100 UNITS/ML 3 ML PEN SC SCH ×4 (08:00→21:38)
[2017-10-24] MEDS: BUDESONIDE/FORMOTEROL FUMARATE 80/4.5 60 PUFFS/INHALER INH SCH ×2 (08:24→20:22)
[2017-10-24] MEDS: LACTATED RINGER'S 1000ML 1,000 ML IV SCH (08:25)
[2017-10-24] MEDS: IPRATROPIUM BROMIDE/ALBUTEROL respimat INH INH SCH ×4 (08:25→20:23)
[2017-10-24] MEDS: LISINOPRIL 5 MG TAB PO SCH (08:25)
[2017-10-24] MEDS: VENLAFAXINE HCL XR 150 MG CAPXR PO SCH (08:26)
[2017-10-24] MEDS: METOPROLOL SUCC 50MG EXT REL TAB PO SCH (08:26)
[2017-10-24] MEDS: ENOXAPARIN 40 MG/0.4 ML SYR SQ SCH (08:27)
[2017-10-24] MEDS: INSULIN GLARGINE SOLOSTAR 100 UNITS/ML 3 ML PEN SC SCH (08:46)
[2017-10-24 08:49] LABS: BASO % 0.2 %; BASO ABS # 0.02 K/uL (0-0.2); EOS % 1.8 %; EOS ABS # 0.21 K/uL (0-0.5); HEMATOCRIT 31.1 % (37-47); IG# 0.04 K/uL (0.00-0.02); LYMPH % 21.3 %; LYMPH ABS # 2.42 K/uL (1.2-3.4); MEAN CELL VOLUME 83.2 fL (80-100); MEAN CORPUSCULAR HEMOGLOBIN 26.7 pg (25-34); MEAN CORPUSCULAR HGB CONC 32.2 g/dl (32-36); MEAN PLATELET VOLUME 9.6 fL (7.4-10.4); MONO % 9.7 %; NEUT % 66.6 %; NEUT ABS # 7.58 K/uL (1.4-6.5); NUCLEATED RED BLOOD CELL ABS 0.03 K/uL (0-0); PLATELET COUNT 262 K/uL (130-400); RED CELL DISTRIBUTION WIDTH CV 15.1 % (11.5-14.5); RED CELL DISTRIBUTION WIDTH SD 44.9 fL (36.4-46.3); WHITE BLOOD COUNT 11.37 K/uL (4.8-10.8)
[2017-10-24 09:26] LABS: ALBUMIN 2.1 gm/dl (3.4-5.0); CREATININE 0.51 mg/dl (0.60-1.20); POTASSIUM 3.5 mmol/L (3.5-5.1)
[2017-10-24 09:27] LABS: TOTAL PROTEIN 5.8 gm/dl (6.4-8.2)
[2017-10-24] MEDS ORDERED: MAGNESIUM OXIDE 400 MG TAB PO ONE (10:00)
[2017-10-24] MEDS ORDERED: FAMOTIDINE 20 MG TAB PO ONE (10:30)
[2017-10-24 12:00] LABS: THYROXINE (T4) 28.9 mcg/dl (4.5-10.9)
--- NOTE | 2017-10-24 13:31 | Surgery Progress Note ---
Surgery Progress Note Date of Service Oct 24, 2017. Subjective + complaints (right buttock pain when sitting or in bed), + diet (not much appetite ), No nausea Objective Vital Signs: Date Time Temp Pulse Resp B/P (MAP) Pulse Ox O2 Delivery O2 Flow Rate FiO2 10/24/17 08:00 Nasal Cannula 2.0 10/24/17 07:15 37.0 96 18 114/79 (91) 93 Room Air 10/23/17 23:50 36.9 90 18 121/81 (94) 98 Nasal Cannula 2.0 10/23/17 23:44 Nasal Cannula 2.0 10/23/17 16:30 Nasal Cannula 2.0 10/23/17 15:45 36.3 106 18 110/66 (81) 97 Nasal Cannula 2.0 Physical Exam: RIRI drainage (65 cc) Abdomen: soft Incision(s): clean, no erythema Laboratory Results: Results Past 24 Hours Test 10/23/17 17:15 10/23/17 20:38 10/24/17 08:25 10/24/17 11:13 Range/Units Bedside Glucose 172 193 70-90 mg/dl White Blood Count 11.37 4.8-10.8 K/uL Red Blood Count 3.74 4.2-5.4 M/uL Hemoglobin 10.0 12.0-16.0 g/dL Hematocrit 31.1 37-47 % Mean Corpuscular Volume 83.2 80-100 fL Mean Corpuscular Hemoglobin 26.7 25-34 pg Mean Corpuscular Hemoglobin Concent 32.2 32-36 g/dl Platelet Count 262 130-400 K/uL Mean Platelet Volume 9.6 7.4-10.4 fL Neutrophils (%) (Auto) 66.6 % Lymphocytes (%) (Auto) 21.3 % Monocytes (%) (Auto) 9.7 % Eosinophils (%) (Auto) 1.8 % Basophils (%) (Auto) 0.2 % Neutrophils # (Auto) 7.58 1.4-6.5 K/uL Lymphocytes # (Auto) 2.42 1.2-3.4 K/uL Monocytes # (Auto) 1.10 0.11-0.59 K/uL Eosinophils # (Auto) 0.21 0-0.5 K/uL Basophils # (Auto) 0.02 0-0.2 K/uL RDW Standard Deviation 44.9 36.4-46.3 fL RDW Coefficient of Variation 15.1 11.5-14.5 % Immature Granulocyte % (Auto) 0.4 % Immature Granulocyte # (Auto) 0.04 0.00-0.02 K/uL Nucleated RBC Absolute Count (auto) 0.03 0-0 K/uL Nucleated Red Blood Cells % 0.3 % Sodium Level 137 136-145 mmol/L Potassium Level 3.5 3.5-5.1 mmol/L Chloride Level 100 98-107 mmol/L Carbon Dioxide Level 28 21-32 mmol/L Anion Gap 9.0 3-11 mmol/L Blood Urea Nitrogen 9 7-18 mg/dl Creatinine 0.51 0.60-1.20 mg/dl Est Creatinine Clear Calc Drug Dose 139.6 ml/min Estimated GFR () 127.2 Estimated GFR (Non- 109.8 BUN/Creatinine Ratio 17.6 10-20 Random Glucose 114 70-99 mg/dl Calcium Level 9.0 8.5-10.1 mg/dl Magnesium Level 1.3 1.8-2.4 mg/dl Total Bilirubin 0.8 0.2-1 mg/dl Aspartate Amino Transf (AST/SGOT) 14 15-37 U/L Alanine Aminotransferase (ALT/SGPT) 10 12-78 U/L Alkaline Phosphatase 68 45-117 U/L Total Protein 5.8 6.4-8.2 gm/dl Albumin 2.1 3.4-5.0 gm/dl Globulin 3.7 2.5-4.0 gm/dl Albumin/Globulin Ratio 0.6 0.9-2 Arterial Blood pH 7.44 7.35-7.45 Arterial Blood Partial Pressure CO2 46 35-46 mmHg Arterial Blood Partial Pressure O2 105 80-95 mm/Hg Arterial Blood HCO3 30 19-24 mmol/L Arterial Blood Oxygen Saturation 97.3 90-95 % Arterial Blood Base Excess 5.1 -9-1.8 mEq/L Arterial Blood Gas Delivery 2L Gerber Test POS POS Lactic Acid Level 1.4 0.4-2.0 mmol/L Ammonia 47.0 11-32 umol/L Thyroid Stimulating Hormone (TSH) 1.070 0.300-4.500 uIu/ml Free Thyroxine > 8.00 0.80-1.60 ng/dl Thyroxine (T4) 28.9 4.5-10.9 mcg/dl Free Triiodothyronine 4.59 2.30-4.20 pg/ml Total Triiodothyronine 1.47 0.60-1.81 ng/ml Assessment & Plan s/p LAR, protective ileostomy Anemia Pneumonia being evaluated for lethargy, mental status changes d/c on hold for today
[2017-10-24] MEDS ORDERED: OXYC-57 PO (15:06)
[2017-10-24] MEDS ORDERED: LACT10SO17 OR (15:06)
[2017-10-24 15:59] VITALS: BP 135/86; PULSE 92; TEMP 36.5; O2SAT 99
--- NOTE | 2017-10-24 17:57 | Progress Note ---
Subjective Date of Service: Oct 24, 2017. Subjective Pt evaluation today including: conversation w/ patient, conversation w/ family , physical exam, chart review, lab review, review of inpatient medication list Voiding: no voiding problems Initially was lethargic morning after receiving one Percocet ABG were ordered and were within normal limits Discharge was held until ammonia level obtained Discussed with family Problem List Medical Problems: (1) Abdominal pain Status: Acute (2) Abscess of labia majora Status: Acute (3) Acute vomiting Status: Acute (4) Cellulitis of labia majora Status: Acute (5) Hyperglycemia Status: Acute (6) Hyperglycemia due to type 2 diabetes mellitus Status: Acute (7) Hypertension Status: Acute (8) Low back pain Status: Acute (9) Morbid obesity Status: Acute (10) New onset a-fib Status: Acute (11) Pulmonary nodule Status: Acute (12) Rectal bleed Status: Acute (13) Rectal bleeding Status: Acute (14) Rectal cancer Status: Acute (15) Sepsis Status: Acute (16) Shortness of breath Status: Acute (17) Skin abscess Status: Acute (18) Urinary tract infection Status: Acute Review of Systems Due to patient mental status review of system was unobtainable/unreliable Objective Vital Signs Date Time Temp Pulse Resp B/P (MAP) Pulse Ox O2 Delivery O2 Flow Rate FiO2 10/24/17 16:10 Nasal Cannula 2.0 10/24/17 15:59 36.5 92 20 135/86 (102) 99 Nasal Cannula 2.0 10/24/17 08:00 Nasal Cannula 2.0 10/24/17 07:15 37.0 96 18 114/79 (91) 93 Room Air 10/23/17 23:50 36.9 90 18 121/81 (94) 98 Nasal Cannula 2.0 10/23/17 23:44 Nasal Cannula 2.0 Physical Exam General Appearance: WD/WN, no apparent distress Eyes: normal inspection, EOMI ENT: normal ENT inspection, hearing grossly normal Neck: supple Respiratory/Chest: chest non-tender, lungs clear, normal breath sounds, no respiratory distress, no accessory muscle use Cardiovascular: regular rate, rhythm, no edema, no gallop, no JVD, no murmur Abdomen: normal bowel sounds, non tender, soft, no organomegaly, no pulsatile mass Extremities: normal range of motion, non-tender, normal inspection, no pedal edema, no calf tenderness 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, no motor/sensory deficits, + pertinent finding (lethargic but arousable) Skin: normal color, warm/dry, no rash Laboratory Results Last 24 Hours Test 10/23/17 20:38 10/24/17 08:25 10/24/17 11:13 10/24/17 12:22 Bedside Glucose 193 mg/dl 145 mg/dl White Blood Count 11.37 K/uL Red Blood Count 3.74 M/uL Hemoglobin 10.0 g/dL Hematocrit 31.1 % Mean Corpuscular Volume 83.2 fL Mean Corpuscular Hemoglobin 26.7 pg Mean Corpuscular Hemoglobin Concent 32.2 g/dl Platelet Count 262 K/uL Mean Platelet Volume 9.6 fL Neutrophils (%) (Auto) 66.6 % Lymphocytes (%) (Auto) 21.3 % Monocytes (%) (Auto) 9.7 % Eosinophils (%) (Auto) 1.8 % Basophils (%) (Auto) 0.2 % Neutrophils # (Auto) 7.58 K/uL Lymphocytes # (Auto) 2.42 K/uL Monocytes # (Auto) 1.10 K/uL Eosinophils # (Auto) 0.21 K/uL Basophils # (Auto) 0.02 K/uL RDW Standard Deviation 44.9 fL RDW Coefficient of Variation 15.1 % Immature Granulocyte % (Auto) 0.4 % Immature Granulocyte # (Auto) 0.04 K/uL Nucleated RBC Absolute Count (auto) 0.03 K/uL Nucleated Red Blood Cells % 0.3 % Sodium Level 137 mmol/L Potassium Level 3.5 mmol/L Chloride Level 100 mmol/L Carbon Dioxide Level 28 mmol/L Anion Gap 9.0 mmol/L Blood Urea Nitrogen 9 mg/dl Creatinine 0.51 mg/dl Est Creatinine Clear Calc Drug Dose 139.6 ml/min Estimated GFR () 127.2 Estimated GFR (Non- 109.8 BUN/Creatinine Ratio 17.6 Random Glucose 114 mg/dl Calcium Level 9.0 mg/dl Magnesium Level 1.3 mg/dl Total Bilirubin 0.8 mg/dl Aspartate Amino Transf (AST/SGOT) 14 U/L Alanine Aminotransferase (ALT/SGPT) 10 U/L Alkaline Phosphatase 68 U/L Total Protein 5.8 gm/dl Albumin 2.1 gm/dl Globulin 3.7 gm/dl Albumin/Globulin Ratio 0.6 Arterial Blood pH 7.44 Arterial Blood Partial Pressure CO2 46 mmHg Arterial Blood Partial Pressure O2 105 mm/Hg Arterial Blood HCO3 30 mmol/L Arterial Blood Oxygen Saturation 97.3 % Arterial Blood Base Excess 5.1 mEq/L Arterial Blood Gas Delivery 2L Gerber Test POS Lactic Acid Level 1.4 mmol/L Ammonia 47.0 umol/L Thyroid Stimulating Hormone (TSH) 1.070 uIu/ml Free Thyroxine > 8.00 ng/dl Thyroxine (T4) 28.9 mcg/dl Free Triiodothyronine 4.59 pg/ml Total Triiodothyronine 1.47 ng/ml Assessment and Plan 51-year-old female with history of hypothyroidism, obstructive sleep apnea, paroxysmal atrial fibrillation, dyslipidemia, essential hypertension, diabetes mellitus type 2 who recently was diagnosed with adenocarcinoma of the colon. Patient had an uneventful rectosigmoid resection and ileostomy. Assessment Adenocarcinoma of: Status post rectosigmoid resection and ileostomy Right lower lobe pneumonia, possible aspiration but cannot rule out hospital- acquired pneumonia Hypoxic respiratory failure secondary to above Again she was lethargic this morning, oxycodone was decreased yesterday from 1 tablet daily Diabetes mellitus type 2 Hypertension/essential Paroxysmal atrial fibrillation Morbid obesity Obstructive sleep apnea Dyslipidemia Plan Procedure went uneventful, cleared by surgery for discharge Unfortunately again was lethargic today, ammonia level was checked and was slightly elevated, she was started on lactulose, liver function are within normal limits looks like it secondary to bacterial overgrowth. Also lactulose will help with her constipation OxyContin was completely stopped. TSH was within normal limits Patient after OxyContin effect went away was able to wake up and was fully awake and oriented unfortunately she lost the bed Nasal MRSA surveillance came back negative, DCed vancomycin Ordered stat EKG to evaluate QT, there was no QTC prolongation and Zosyn was switched to levofloxacin oral Yesterday red and was negative, ABG was ordered and was within normal limits, IV pain medications were stopped Continue sliding scale insulin Continue lisinopril, Lasix Continue beta yudy, start anticoagulation when cleared by surgery CPAP at night Evaluate the need of oxygen prior to discharge Continued [facility] stay due to: multiple IV medications needed Discharge planning: [facility] in a.m[facility] Continued [facility] stay due to: multiple IV medications needed Discharge planning: rehab hospital
[2017-10-24] MEDS ORDERED: FUROSEMIDE 20 MG TAB PO ONE (18:15)
[2017-10-24] MEDS ORDERED: NURSING VERBAL MED ORDER ONE (18:30)
[2017-10-24 18:36] VITALS: BP 128/82
[2017-10-24] MEDS ORDERED: ACETAMINOPHEN 325 MG TAB PO PRN (18:45)
[2017-10-24] MEDS: ONDANSETRON 8 MG TAB PO PRN (20:22)
[2017-10-24] MEDS: MONTELUKAST SOD 10 MG TAB PO SCH (20:23)
[2017-10-24] MEDS: LACTULOSE SYRUP 30 GM/45 ML UDP PO SCH (20:23)
[2017-10-24 22:54] VITALS: BP 131/86; PULSE 99; TEMP 36.9; O2SAT 98
[2017-10-25] MEDS: PIPERACILL/TAZOBAC IV 4.5 GM in DEXTROSE 5% 100ML IV SCH ×2 (02:04→10:23)
[2017-10-25] MEDS ORDERED: PROMETHAZINE HCL INJ 25 MG/ML 1 ML VIAL IM STA (02:05)
[2017-10-25] MEDS: ONDANSETRON 8 MG TAB PO PRN ×2 (02:05→08:45)
[2017-10-25] MEDS: LEVOTHYROXINE 200 MCG TAB PO SCH (05:16)
[2017-10-25 07:20] VITALS: BP 123/84; PULSE 105; TEMP 36.5; O2SAT 99
[2017-10-25 07:53] LABS: BASO % 0.2 %; BASO ABS # 0.02 K/uL (0-0.2); EOS % 0.2 %; EOS ABS # 0.02 K/uL (0-0.5); HEMATOCRIT 29.9 % (37-47); HEMOGLOBIN 9.6 g/dL (12.0-16.0); IG# 0.05 K/uL (0.00-0.02); LYMPH % 12.1 %; LYMPH ABS # 1.46 K/uL (1.2-3.4); MEAN CELL VOLUME 83.5 fL (80-100); MEAN CORPUSCULAR HEMOGLOBIN 26.8 pg (25-34); MEAN CORPUSCULAR HGB CONC 32.1 g/dl (32-36); MEAN PLATELET VOLUME 9.3 fL (7.4-10.4); MONO ABS # 0.85 K/uL (0.11-0.59); NEUT % 80.1 %; PLATELET COUNT 287 K/uL (130-400); RED CELL DISTRIBUTION WIDTH CV 15.2 % (11.5-14.5); RED CELL DISTRIBUTION WIDTH SD 46.3 fL (36.4-46.3)
[2017-10-25] MEDS ORDERED: APIX1TAB3 PO (08:07)
[2017-10-25 08:22] LABS: ALBUMIN 2.2 gm/dl (3.4-5.0); CREATININE 0.5 mg/dl (0.60-1.20); POTASSIUM 3.6 mmol/L (3.5-5.1)
[2017-10-25 08:24] LABS: TOTAL PROTEIN 6.1 gm/dl (6.4-8.2)
[2017-10-25] MEDS: IPRATROPIUM BROMIDE/ALBUTEROL respimat INH INH SCH ×2 (08:46→13:00)
[2017-10-25] MEDS: BUDESONIDE/FORMOTEROL FUMARATE 80/4.5 60 PUFFS/INHALER INH SCH (08:46)
[2017-10-25] MEDS: VENLAFAXINE HCL XR 150 MG CAPXR PO SCH (08:47)
[2017-10-25] MEDS: LISINOPRIL 5 MG TAB PO SCH (08:47)
[2017-10-25] MEDS: LACTULOSE SYRUP 30 GM/45 ML UDP PO SCH ×3 (08:48→13:09)
[2017-10-25] MEDS: METOPROLOL SUCC 50MG EXT REL TAB PO SCH (08:49)
[2017-10-25] MEDS: INSULIN ASPART 100 UNITS/ML 3 ML PEN SC SCH ×2 (08:53→12:00)
[2017-10-25] MEDS: INSULIN GLARGINE SOLOSTAR 100 UNITS/ML 3 ML PEN SC SCH (08:54)
[2017-10-25] MEDS ORDERED: MAGNESIUM OXIDE 400 MG TAB PO SCH (09:00)
[2017-10-25] MEDS ORDERED: FAMOTIDINE 20 MG TAB PO SCH (09:00)
[2017-10-25] MEDS ORDERED: APIXABAN 2.5 MG TAB PO SCH (09:00)
--- NOTE | 2017-10-25 12:25 | Discharge Summary ---
Discharge Summary Date of Service Oct 25, 2017. Discharge Summary Admission Date: Oct 18, 2017 at 16:44 Discharge Date: Oct 25, 2017 Discharge Disposition: Rehab Principal Diagnosis: Adenocarcinoma of colon : Status post rectosigmoid resection and ileostomy Problems/Secondary Diagnoses: Adenocarcinoma of: Status post rectosigmoid resection and ileostomy Right lower lobe pneumonia, possible aspiration but cannot rule out hospital- acquired pneumonia Hypoxic respiratory failure secondary to above Again she was lethargic this morning, oxycodone was decreased yesterday from 1 tablet daily Diabetes mellitus type 2 Hypertension/essential Paroxysmal atrial fibrillation Morbid obesity Obstructive sleep apnea Dyslipidemia Immunizations: Have You Had Influenza Vaccine: N/A Influenza Vaccine Date: Jun 19, 2011 History of Tetanus Vaccine?: Yes History of Pneumococcal: Yes Pneumococcal Date: February 23, 2011 History of Hepatitis B Vaccine: Yes Procedures: Patient Name: DERRELL WOODS Unit Number: [id number] Dictated: 10/23/171201 Transcribed: 10/23/171201 EV Printed Date/Time: [~ rep prt dt]/[~ rep prt tm] [~ rep ct labl] - [~ rep ct ivnm] [facility] [place] [address] Dictated: 10/23/171201 Transcribed: 10/23/171201 EV Printed Date/Time: [~ rep prt dt]/[~ rep prt tm] [~ rep ct labl] - [~ rep ct ivnm] CT SCAN OF THE BRAIN WITHOUT IV CONTRAST CLINICAL HISTORY: Drowsiness. Change in mental status. COMPARISON STUDY: CT of the brain dated 10/03/2017. TECHNIQUE: Unenhanced axial CT scan of the brain is performed from the vertex to the skull base. A dose lowering technique was utilized adhering to the principles of ALARA. CT DOSE: 720.95 mGycm FINDINGS: Brain parenchyma: The brain parenchyma is normal in appearance. There is no hemorrhage, mass effect, or evidence of acute territorial ischemia by CT criteria. Rucker-white matter is preserved. No extra-axial fluid collection is seen. Ventricles, sulci, cisterns: Normal in configuration. Intracranial vasculature: The visualized intracranial vasculature at the skull base is normal in appearance. Calvarium: Unremarkable. Sinuses and mastoids: Mucosal thickening and retention cysts are seen in the left maxillary antrum. Trace mucosal thickening is also seen in the right maxillary antrum and the left sphenoid sinus. The remaining paranasal sinuses are clear. The mastoid air cells are well pneumatized. Orbits: The bony orbits are grossly intact. IMPRESSION: There is no hemorrhage, mass effect, or evidence of acute territorial ischemia by CT criteria. Electronically signed by: Tacho Delatorre M.D. 10/23/2017 12:05 PM Dictated Date/Time: 10/23/2017 12:02 PM The status of this report is Signed. Draft = Not yet reviewed or approved by Radiologist. Signed = Reviewed and approved by Radiologist. <AttendingPhy>John Rogers D.O.</AttendingPhy> <FamilyPhy>Madison Vivar M.D.</FamilyPhy> <PrimaryPhy>Madison Vivar M.D.</PrimaryPhy > <UnitNumber>[id number]</UnitNumber> <VisitNumber>[id number]</VisitNumber> < PatientName>DERRELL WOODS [place]</PatientName> <DateOfBirth>1965</DateOfBirth> < Location[facility]</Location> <ServiceDate>10/18/17</ServiceDate> <MNE>ESINDI</MNE> <OrderingPhy>Isabel Ontiveros MD</OrderingPhy> <OrderingPhyMNE>f rep ord dr ordonez</OrderingPhyMNE> <DictatingPhyMNE>f rep dict dr ordonez</DictatingPhyMNE > <CCListMNE>f rep ct christofere</CCListMNE> <AdmittingPhyMNE>f pt admit dr ordonez</ AdmittingPhyMNE> <AttendingPhyMNE>f pt attend dr ordonez</AttendingPhyMNE> <ConsultingPhyMNE>f pt consult dr ordonez</ConsultingPhyMNE> <FamilyPhyMNE>f pt fam dr ordonez</FamilyPhyMNE> <OtherPhyMNE>f pt other dr ordonez</OtherPhyMNE> < PrimaryPhyMNE>f pt prim care dr ordonez</PrimaryPhyMNE> <ReferringPhyMNE>f pt referring dr ordonez</ReferringPhyMNE> Medication Reconciliation New Medications: Apixaban (Eliquis) 5 Mg Tab 5 MG PO BID for 30 Days, #60 TAB Lactulose (Chronulac) 10 Gm/15 Ml Syrp 20 GM OR BID for 7 Days Levofloxacin (Levofloxacin) 250 Mg Tab 500 MG OR DAILY for 5 Days Oxycodone/Acetaminophen 5MG/325MG (Percocet 5MG/325MG) Tab 1 TABLETS PO Q12H PRN for Pain, #10 TAB only in severe pain if tylenol alone was not sufficient Oxycodone HCl (Oxycodone HCl) 5 Mg Tab 5-10 MG PO Q4H PRN for Pain for 7 Days, #20 TAB Changed Medications: Insulin Glargine (Toujeo Solostar) 300 Unit/Ml Inj 15 UNITS SQ DAILY for 30 Days, #1 PEN (Changed from: 60 ) Continued Medications: Albuterol Hfa (Ventolin Hfa) 200 Puffs/15917 Mcg Aers 2-4 PUFFS INH Q6H PRN for ASTHMA, #1 INHALER Budesonide/Formoterol Fumarate (Symbicort 80/4.5 Inhaler) Aero 2 PUFFS INH BID, INHALER Cholestyramine (Bulk) (Cholestyramine) 1 Pow Pow 1 PKT DAILY Famotidine (Pepcid) 20 Mg Tab 20 MG PO DAILY, TAB Furosemide (Lasix) 20 Mg Tab 20 MG PO QAM, TAB Insulin Aspart (Novolog) 100 Units/Ml Inj UNITS SQ TIDM SLIDING SCALE Ipratropium-Albuterol (Combivent Respimat) 1 Aer Aer 1 PUFFS INH QID, INH Lactobacillus Acidophilus (Lactinex) Tab 4 TAB PO TID, TAB Levothyroxine Sodium (Levothyroxine Sodium) 200 Mcg Tab 6 TAB PO DAILY for 30 Days, #180 TAB 5 Refills Lisinopril (Lisinopril) 5 Mg Tab 5 MG PO QAM Loratadine (Claritin) 10 Mg Cap 10 MG PO QAM Magnesium Oxide (Mag-Ox) 400 Mg Tab 400 MG PO DAILY, TAB Meclizine Hcl (Meclizine Hcl) 25 Mg Tab 25 MG PO TID PRN for Dizziness or Vertigo Metoprolol Succinate (Toprol Xl) 50 Mg Tabcr 50 MG PO DAILY, #30 TAB Montelukast Sod (Montelukast Sodium) 10 Mg Tab 10 MG PO HS Mupirocin 2% (Bactroban 2%) 30 Gm Cr 1 APPLN EXT BID PRN for PRN, TUBE Nitroglycerin (Nitrostat) 0.4 Mg Tab 0.4 MG UT UD PRN for Chest Pain Ondansetron Hcl (Zofran) 8 Mg Tab 8 MG PO Q6 PRN for Nausea, TAB Potassium Chloride (Micro-K Ext Rel) 10 Meq Capcr 10 MEQ PO QAM, CAP Simvastatin (Zocor) 40 Mg Tab 40 MG PO QPM, TAB Venlafaxine Hcl (Effexor Extended Rel) 150 Mg Capcr 150 MG PO QAM [saline nasal spray] () 2 SPRY NA QID Discontinued Medications: Aspirin (Aspirin Ec) 81 Mg Tab 81 MG PO DAILY Discharge Exam Review of Systems: Constitutional: No fever, No chills, No sweats, No weight loss, No weakness , No fatigue, No problem reported Eyes: No worsening of vision, No eye pain, No redness, No discharge, No diplopia, No problem reported ENT: No hearing loss, No unusual epistaxis, No nasal symptoms, No sore throat, No tinnitus, No dental problems, No trouble swallowing, No problem reported Respiratory: No cough, No sputum, No wheezing, No shortness of breath, No dyspnea on exertion, No dyspnea at rest, No hemoptysis, No problem reported Cardiovascular: No chest pain, No orthopnea, No PND, No edema, No claudication, No palpitations, No problem reported Abdomen: No pain, No nausea, No vomiting, No diarrhea, No constipation, No GI bleeding, No problem reported Musculoskeletal: No joint pain, No muscle pain, No swelling, No calf pain, No problem reported Genitourinary - Female: No dysuria, No urinary frequency, No urinary urgency , No urinary incontinence, No urinary retention, No hematuria, No dysmenorrhea, No menorrhagia, No metrorrhagia, No rash, No vaginal bleeding, No vaginal discharge, No vaginal itching, No vulvodynia, No , No problem reported Neurologic: No memory loss, No paralysis, No weakness, No numbness/tingling , No vertigo, No balance problems, No problem reported Psychiatric: No depression symptoms, No anhedonism, No anxiety, No insomnia , No substance abuse, No problem reported Endocrine: No fatigue, No excessive thirst, No excessive urination, No problem reported Hematologic / Lymphatic: No abnormal bleeding/bruising, No clotting problems , No swollen lymph nodes, No night sweats, No problem reported Integumentary: No rash, No itch, No new/changing skin lesions, No color change, No bleeding, No problem reported Physical Exam: General Appearance: no apparent distress, + obese Eyes: normal inspection, EOMI ENT: normal ENT inspection, hearing grossly normal Neck: supple Respiratory/Chest: chest non-tender, lungs clear, normal breath sounds, no respiratory distress, no accessory muscle use Cardiovascular: regular rate, rhythm, no edema, no gallop, no JVD, no murmur , normal peripheral pulses Abdomen / GI: normal bowel sounds, non tender, soft, no organomegaly, no pulsatile mass Extremities: normal inspection, no calf tenderness, normal capillary refill , no pedal edema, normal range of motion 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 current medical problems were delt with during her hospital stay; Adenocarcinoma of colon : Status post rectosigmoid resection and ileostomy, RIRI drain removed upon discharge. Procedure went uneventful, cleared by surgery for discharge found to have Hypoxic respiratory failure secondary secondary to Right lower lobe pneumonia, likely aspiration but cannot rule out hospital-acquired pneumonia, she was started initially on zosyn/vanco then Nasal MRSA surveillance came back negative, DCed vancomycin, cultures are negative, zosyn switched to levofloxacin upon discharge. at some point she was found to be lethargic, oxycodone was thought to be the cause of her lethargy, was stopped. started on sliding scale insulin plus her home regular dose for Diabetes mellitus type 2 for her Paroxysmal atrial fibrillation with permission from surgery she was started on eliquis instructed to follow up w her destination specialist. Total Time Spent: Greater than 30 minutes This includes examination of the patient, discharge planning, medication reconciliation, and communication with other providers. Discharge Instructions Please refer to the electronic Patient Visit Report (Discharge Instructions) for additional information.
[2017-10-25 12:38] VITALS: BP 123/84; PULSE 105; TEMP 36.5
--- NOTE | 2017-10-25 12:41 | Surgery Progress Note ---
Surgery Progress Note Date of Service Oct 25, 2017. Subjective Post OP Day: 7 + ambulating (in room), + bowel movement Objective Vital Signs: Date Time Temp Pulse Resp B/P (MAP) Pulse Ox O2 Delivery O2 Flow Rate FiO2 10/25/17 07:25 Nasal Cannula 2.0 10/25/17 07:20 36.5 105 18 123/84 (97) 99 Nasal Cannula 2.0 10/25/17 00:07 Nasal Cannula 2.0 10/24/17 22:54 36.9 99 18 131/86 (101) 98 Nasal Cannula 2.0 10/24/17 18:36 128/82 (97) 10/24/17 16:10 Nasal Cannula 2.0 10/24/17 15:59 36.5 92 20 135/86 (102) 99 Nasal Cannula 2.0 Physical Exam: RIRI drainage (110 cc, serous) Abdomen: soft Incision(s): clean, dry Laboratory Results: Results Past 24 Hours Test 10/24/17 17:20 10/24/17 20:45 10/25/17 07:36 Range/Units Bedside Glucose 174 171 70-90 mg/dl White Blood Count 12.10 4.8-10.8 K/uL Red Blood Count 3.58 4.2-5.4 M/uL Hemoglobin 9.6 12.0-16.0 g/dL Hematocrit 29.9 37-47 % Mean Corpuscular Volume 83.5 80-100 fL Mean Corpuscular Hemoglobin 26.8 25-34 pg Mean Corpuscular Hemoglobin Concent 32.1 32-36 g/dl Platelet Count 287 130-400 K/uL Mean Platelet Volume 9.3 7.4-10.4 fL Neutrophils (%) (Auto) 80.1 % Lymphocytes (%) (Auto) 12.1 % Monocytes (%) (Auto) 7.0 % Eosinophils (%) (Auto) 0.2 % Basophils (%) (Auto) 0.2 % Neutrophils # (Auto) 9.70 1.4-6.5 K/uL Lymphocytes # (Auto) 1.46 1.2-3.4 K/uL Monocytes # (Auto) 0.85 0.11-0.59 K/uL Eosinophils # (Auto) 0.02 0-0.5 K/uL Basophils # (Auto) 0.02 0-0.2 K/uL RDW Standard Deviation 46.3 36.4-46.3 fL RDW Coefficient of Variation 15.2 11.5-14.5 % Immature Granulocyte % (Auto) 0.4 % Immature Granulocyte # (Auto) 0.05 0.00-0.02 K/uL Sodium Level 137 136-145 mmol/L Potassium Level 3.6 3.5-5.1 mmol/L Chloride Level 96 98-107 mmol/L Carbon Dioxide Level 32 21-32 mmol/L Anion Gap 9.0 3-11 mmol/L Blood Urea Nitrogen 7 7-18 mg/dl Creatinine 0.50 0.60-1.20 mg/dl Est Creatinine Clear Calc Drug Dose 142.4 ml/min Estimated GFR () 128.1 Estimated GFR (Non- 110.5 BUN/Creatinine Ratio 13.5 10-20 Random Glucose 173 70-99 mg/dl Calcium Level 9.0 8.5-10.1 mg/dl Magnesium Level 1.3 1.8-2.4 mg/dl Total Bilirubin 1.0 0.2-1 mg/dl Aspartate Amino Transf (AST/SGOT) 12 15-37 U/L Alanine Aminotransferase (ALT/SGPT) 11 12-78 U/L Alkaline Phosphatase 66 45-117 U/L Ammonia 31.3 11-32 umol/L Total Protein 6.1 6.4-8.2 gm/dl Albumin 2.2 3.4-5.0 gm/dl Globulin 3.9 2.5-4.0 gm/dl Albumin/Globulin Ratio 0.6 0.9-2 Assessment & Plan s/p LAR, protective ileostomy Anemia Pneumonia improved today, ok for transfer to [facility] remove drain prior to discharge
[2017-10-25 13:00] VITALS: O2SAT 96
[2017-10-25 13:34] VITALS: O2SAT 93
== END 2017-10-25 14:27 | DRG 329 ==
LOC: C.ACU 08:11 → C.2T 16:44 → ENRESERV 17:17 → C.MSW 10-22 16:44
PROVIDERS: ADMIT Surgery; ATTEND Surgery
PROC: 0DBP0ZZ Excision of Rectum, Open Approach (ICD-10-PCS; principal; 2017-10-18 10:45)
PROC: 0D1 Gastrointestinal System, Bypass (ICD-10-PCS; principal; 2017-10-18 10:45)
PROC: 0DTN0ZZ Resection of Sigmoid Colon, Open Approach (ICD-10-PCS; principal; 2017-10-18 10:45)
PROC: 0DJD8ZZ Inspection of Lower Intestinal Tract, Via Natural or Artificial Opening Endoscopic (ICD-10-PCS; principal; 2017-10-18 10:45)
PROC: 0DJW4ZZ Inspection of Peritoneum, Percutaneous Endoscopic Approach (ICD-10-PCS; principal; 2017-10-18 10:45)
DX: C19 Malignant neoplasm of rectosigmoid junction (principal); J69.0 Pneumonitis due to inhalation of food and vomit; I50.30 Unspecified diastolic (congestive) heart failure; J18.9 Pneumonia, unspecified organism; D62 Acute posthemorrhagic anemia; J96.01 Acute respiratory failure with hypoxia; Z68.42 Body mass index [BMI] 45.0-49.9, adult; N76.4 Abscess of vulva; J45.909 Unspecified asthma, uncomplicated; F32.9 Major depressive disorder, single episode, unspecified; E11.65 Type 2 diabetes mellitus with hyperglycemia; E11.40 Type 2 diabetes mellitus with diabetic neuropathy, unspecified; I11.0 Hypertensive heart disease with heart failure; E03.9 Hypothyroidism, unspecified; G47.33 Obstructive sleep apnea (adult) (pediatric); Z88.2 Allergy status to sulfonamides; I48.0 Paroxysmal atrial fibrillation; E78.5 Hyperlipidemia, unspecified; Z79.01 Long term (current) use of anticoagulants; E66.01 Morbid (severe) obesity due to excess calories; I34.0 Nonrheumatic mitral (valve) insufficiency; Z79.4 Long term (current) use of insulin; Z83.3 Family history of diabetes mellitus; Z96.659 Presence of unspecified artificial knee joint

== ENCOUNTER 2017-11-04 11:56 | Inpatient (IN) | payer OTHER ==
[~2017-11-04] VITALS: Ht 152.4 cm; Wt 94.0 kg
[~2017-11-04 11:56] MED LIST changes: +APIX1TAB3 PO; -ASPI81TA28 PO; -CEFAZOLIN 2000MG IV PUSH 10 ML IV SCH; -CHOL4POW4 PO; +CHOLPOW; -FAMO1TAB47 PO; +FAMO20TA11 PO; -GABA400C PO; -HEPARIN SOD 5000 UNIT/0.5 ML CARP SQ SCH; +LACT10SO17 OR; -LACTATED RINGER'S 1000ML 1,000 ML IV SCH; +LVQ250 OR; +MAGN400T6 PO; +METO-217 PO; -MGNO400 PO; -NVLGI/PEN SC; +ONDA-170 PO; -ONDA8TAB6 PO; +OXYC-57 PO; +RXC5 PO; -SALI0.6510; -TPRSR50 PO; +saline nasal spray
[2017-11-04] MEDS ORDERED: FENTANYL CITRATE INJ 50 MCG/1 ML 2 ML VIAL IV STA (13:10)
[2017-11-04] MEDS ORDERED: SODIUM CHLORIDE 0.9% 1000ML 1,000 ML IV STA (13:10)
[2017-11-04] MEDS ORDERED: PIPERACILLIN/TAZOBACTAM 4.5 GM/100ML D5W IV STA (13:10)
[2017-11-04] MEDS ORDERED: VANCOMYCIN IV 2,000 MG in SODIUM CHLORIDE 0.9% 500ML 500 ML IV STA (13:10)
--- NOTE | 2017-11-04 13:13 | EMERGENCY ROOM VISIT NOTE ---
History Report prepared by Aakash: Neela Watts Under the Supervision of: Dr. Gabriel Donato M.D. First contact with patient: 12:58 Chief Complaint: OTHER COMPLAINT Stated Complaint: SKIN PROBLEM History of Present Illness The patient is a 51 year old female who presents to the Emergency Room with complaints of worsening abdominal pain secondary to a possible post colon cancer surgery infection. The patient complains of persistent sweating and feeling warm, noting the highest her temperature has been is 99 degrees Fahrenheit. Source of History: patient Onset: post surgery Position: abdomen Quality: other (abdominal pain) Timing: worsening Review of Systems See HPI for pertinent positives and negatives. A total of ten systems were reviewed and were otherwise negative. Past Medical & Surgical Medical Problems: (1) Asthma (2) Diabetes mellitus type 2 in obese (3) Dyslipidemia (4) GERD (gastroesophageal reflux disease) (5) Hepatitis (6) HTN (hypertension) (7) Hypothyroidism (8) Intra-abdominal abscess (9) Lactic acidosis (10) Leaky heart valve (11) Mitral regurgitation (12) Morbid obesity with BMI of 40.0-44.9, adult (13) MRSA (methicillin resistant Staphylococcus aureus) (14) ANA (obstructive sleep apnea) (15) Panniculitis (16) Patella fracture (17) Post-op pain (18) Rectal cancer Surgical Problems: (1) History of carpal tunnel surgery (2) History of hysterectomy (3) History of tonsillectomy and adenoidectomy (4) History of tubal ligation (5) Hx of total knee arthroplasty Family History Diabetes mellitus FH: heart disease FH: lung disease Hypertension Seizures Social History Smoking Status: Never Smoker Alcohol Use: none Drug Use: none Marital Status: Housing Status: lives with significant other Occupation Status: disabled Current/Historical Medications Scheduled Apixaban (Eliquis), 5 MG PO BID Atorvastatin (Lipitor), 20 MG PO HS Cholestyramine (Bulk) (Cholestyramine), 1 PKT DAILY Ciprofloxacin Tab (Cipro), 500 MG PO BID Famotidine (Pepcid), 20 MG PO DAILY Fluconazole (Diflucan), 100 MG PO QAM Fluticasone Furoate-Vilanterol (Breo Ellipta 200-25 Mcg/INH), 1 PUFF INH QAM Furosemide (Lasix), 20 MG PO QAM Insulin Aspart (Novolog), UNITS SQ TIDM Insulin Glargine (Toujeo Solostar), 15 UNITS SQ DAILY Ipratropium-Albuterol (Combivent Respimat), 1 PUFFS INH QID Lactobacillus Acidophilus (Lactinex), 4 TAB PO TID Levothyroxine Sodium (Levothyroxine Sodium), 6 TAB PO DAILY Lisinopril (Lisinopril), 5 MG PO QAM Loratadine (Claritin), 10 MG PO QAM Magnesium Oxide (Mag-Ox), 400 MG PO DAILY Metoprolol Succinate (Toprol Xl), 50 MG PO DAILY Metronidazole (Flagyl), 500 MG PO TID Montelukast Sod (Montelukast Sodium), 10 MG PO HS Potassium Chloride (Micro-K Ext Rel), 10 MEQ PO QAM Scheduled PRN Albuterol Hfa (Ventolin Hfa), 2-4 PUFFS INH Q6H PRN for ASTHMA Nitroglycerin (Nitrostat), 0.4 MG UT UD PRN for Chest Pain Ondansetron Hcl (Zofran), 8 MG PO Q6 PRN for Nausea Oxycodone HCl (Oxycodone HCl), 5-10 MG PO Q4H PRN for Pain Oxycodone/Acetaminophen 5MG/325MG (Percocet 5MG/325MG), 1 TABLETS PO Q12H PRN for Pain Allergies Coded Allergies: Daptomycin (Verified Allergy, Severe, SHORTNESS OF BREATH, 11/04/17) 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 Clindamycin (Verified Allergy, Intermediate, HIVES, 11/04/17) Sulfa Antibiotics (Verified Allergy, Intermediate, BACTRIM-HIVES, 11/04/17) BEE STING (Verified Allergy, Unknown, HIVES, 11/04/17) Trimethoprim (Verified Allergy, Unknown, HIVES, 11/04/17) Dulaglutide (Verified Adverse Reaction, Severe, BRAND-TRULICITY, SEVERE GI UPSET, CONSTIPATION, 11/04/17) Physical Exam Vital Signs Date Time Temp Pulse Resp B/P (MAP) Pulse Ox O2 Delivery O2 Flow Rate FiO2 11/04/17 19:18 106 20 131/61 97 Room Air 11/04/17 18:16 103 16 109/79 97 Room Air 11/04/17 16:07 94 11/04/17 16:06 97 20 114/97 98 Room Air 11/04/17 15:00 102 16 106/73 96 Room Air 11/04/17 13:00 101 22 112/83 97 Room Air 11/04/17 12:06 116 11/04/17 12:05 94 Room Air 11/04/17 12:05 37.0 104 20 110/82 94 Room Air Physical Exam GENERAL: Awake, alert, chronically ill-appearing, in no distress HENT: Dry cracked mucous membranes. Normocephalic, atraumatic. Oropharynx unremarkable. EYES: Normal conjunctiva. Sclera non-icteric. NECK: Supple. No nuchal rigidity. FROM. No JVD. RESPIRATORY: Clear to auscultation. CARDIAC: Regular rate, normal rhythm. Extremities warm and well perfused. Pulses equal. ABDOMEN: Obese abdomen. Large 20cm area of erythema and warmth surrounding her ostomy site with a 1cm area of skin ulceration with xeroform packing. Midline incision site with mild wound dehiscence of livan. Soft, non-distended. No rebound or guarding. No masses. RECTAL: Deferred. MUSCULOSKELETAL: Chest examination reveals no tenderness. The back is symmetrical on inspection without obvious abnormality. There is no CVA tenderness to palpation. No joint edema. LOWER EXTREMITIES: Calves are equal size bilaterally and non-tender. 1+ BLE edema. NEURO: Normal sensorium. No sensory or motor deficits noted. SKIN: warm/dry, no jaundice noted. Medical Decision & Procedures ER Provider Diagnostic Interpretation: Radiology results as stated below per my review and radiologist interpretation: CHEST ONE VIEW PORTABLE CLINICAL HISTORY: 51 years-old Female presenting with Evaluate Fever/Sepsis. TECHNIQUE: Portable upright AP view of the chest was obtained. COMPARISON: 10/22/2012. FINDINGS: Cardiac silhouette mildly enlarged, unchanged. Continued decrease in right lung opacity. Pulmonary vasculature mildly prominent but less than on the prior exam. No large effusion or pneumothorax. Osseous structures normal. Upper abdomen normal. IMPRESSION: 1. Continued interval decrease in right lung opacity. No new focal infiltrate suggest pneumonia. Electronically signed by: Riaz Blackwood M.D. 11/04/2017 2:36 PM Dictated Date/Time: 11/04/2017 2:35 PM Laboratory Results Test 11/04/17 13:18 11/04/17 13:50 11/04/17 14:04 11/04/17 16:00 Immature Granulocyte % (Auto) 0.8 % White Blood Count 14.29 K/uL (4.8-10.8) Red Blood Count 4.45 M/uL (4.2-5.4) Hemoglobin 11.7 g/dL (12.0-16.0) Hematocrit 36.0 % (37-47) Mean Corpuscular Volume 80.9 fL (80-100) Mean Corpuscular Hemoglobin 26.3 pg (25-34) Mean Corpuscular Hemoglobin Concent 32.5 g/dl (32-36) Platelet Count 554 K/uL (130-400) Mean Platelet Volume 9.0 fL (7.4-10.4) Neutrophils (%) (Auto) 65.5 % Lymphocytes (%) (Auto) 16.9 % Monocytes (%) (Auto) 11.1 % Eosinophils (%) (Auto) 5.5 % Basophils (%) (Auto) 0.2 % Neutrophils # (Auto) 9.36 K/uL (1.4-6.5) Lymphocytes # (Auto) 2.41 K/uL (1.2-3.4) Monocytes # (Auto) 1.59 K/uL (0.11-0.59) Eosinophils # (Auto) 0.78 K/uL (0-0.5) Basophils # (Auto) 0.03 K/uL (0-0.2) Immature Granulocyte # (Auto) 0.12 K/uL (0.00-0.02) Prothrombin Time 13.8 SECONDS (9.0-12.0) Prothromb Time International Ratio 1.3 (0.9-1.1) Activated Partial Thromboplast Time 28.3 SECONDS (21.0-31.0) Partial Thromboplastin Ratio 1.1 Lactic Acid Level 1.7 mmol/L (0.4-2.0) Total Bilirubin 0.7 mg/dl (0.2-1) Direct Bilirubin 0.2 mg/dl (0-0.2) Aspartate Amino Transf (AST/SGOT) 12 U/L (15-37) Alanine Aminotransferase (ALT/SGPT) 10 U/L (12-78) Alkaline Phosphatase 84 U/L (45-117) Troponin I < 0.015 ng/ml (0-0.045) Total Protein 7.5 gm/dl (6.4-8.2) Albumin 2.6 gm/dl (3.4-5.0) Lipase 89 U/L (73-393) Influenza Type A Antigen Neg for Influ A (NEG) Influenza Type B Antigen Neg for Influ B (NEG) Venous Blood pH 7.39 (7.36-7.41) Venous Blood Partial Pressure CO2 47 mmHg (38.0-50.0) Venous Blood Partial Pressure O2 56 mmHg Venous Blood HCO3 27 mmol/L Venous Blood Oxygen Saturation 86.3 % Venous Blood Base Excess 1.9 mEq/L Urine Color DK YELLOW Urine Appearance CLEAR (CLEAR) Urine pH 5.5 (4.5-7.5) Urine Specific [place] 1.038 (1.000-1.030) Urine Protein NEG (NEG) Urine Glucose (UA) NEG (NEG) Urine Ketones TRACE (NEG) Urine Occult Blood NEG (NEG) Urine Nitrite POS (NEG) Urine Bilirubin NEG (NEG) Urine Urobilinogen NEG (NEG) Urine Leukocyte Esterase SMALL (NEG) Urine WBC (Auto) 5-10 /hpf (0-5) Urine RBC (Auto) 5-10 /hpf (0-4) Urine Hyaline Casts (Auto) 5-10 /lpf (0-5) Urine Epithelial Cells (Auto) >30 /lpf (0-5) Urine Bacteria (Auto) NEG (NEG) Urine Pathogenic Casts /lpf (0) Laboratory results reviewed by me Medications Administered Medications (Trade) Dose Ordered Sig/Viviana Route Start Time Stop Time Status Last Admin Dose Admin Sodium Chloride 1,000 ml @ 999 mls/hr Q1H1M STAT IV 11/04/17 13:10 11/04/17 14:10 DC 11/04/17 13:47 999 MLS/HR Vancomycin HCl 2000 mg/Sodium Chloride 540 ml @ 200 mls/hr ONE STAT IV 11/04/17 13:10 11/04/17 15:51 DC 11/04/17 14:59 200 MLS/HR Piperacillin Sod/ Tazobactam Sod (Zosyn Iv) 4.5 gm NOW STAT IV 11/04/17 13:10 11/04/17 13:15 DC 11/04/17 14:05 4.5 GM Fentanyl Citrate (Fentanyl Inj) 100 mcg NOW STAT IV 2/4/18 13:10 11/04/17 13:15 DC 11/04/17 13:48 100 MCG Acetaminophen (Tylenol Tab) 650 mg Q4H PRN PO 11/04/17 18:45 12/04/17 18:44 11/06/17 16:52 650 MG Morphine Sulfate (MoRPHine SULFATE INJ) 4 mg Q4H PRN IV 11/04/17 18:45 11/18/17 18:44 11/06/17 06:38 4 MG ED Course 1305: The patient was evaluated in room B11. A complete history and physical exam was performed. 1314: I discussed the patient with 's PA - We both discussed the test findings with the patient, who verbalized complete understanding. She will evaluate the patient for further treatment. 1320: I discussed the patient with Dr. Haider, general surgery. He agrees on the treatment plan, but will discuss the treatment plan with ID, noting the patients history of cdiff. Medical Decision I reviewed the patient's past medical history, medications, and the nursing notes as described above. The patient's presentation and history were concerning for sepsis, cellulitis, abscess, intraabdominal infection, and fungal infection. Patient is a 51-year-old woman with a competent past medical history including colon cancer status post colostomy by Dr. Rogers, hypothyroidism, obstructive sleep apnea, paroxysmal atrial fibrillation, dyslipidemia, essential hypertension, diabetes mellitus type 2 's emergency department from [facility] for worsening ostomy and surgical site in the setting of difficulty maintaining ostomy bag in place subsequently with evolving cellulitis , ulceration, and wound dehiscence per hpi. On arrival the patient is fatigued appearing but in no acute distress, afebrile, HR 100s but otherwise stable vital signs. On exam the patient has a 20 cm area of erythema and warmth surrounding her ostomy site, with a 1 cm site of ulceration, and early dehiscence of her livan. This was discussed d/w Yolanda Lagos, surgery PA-c and Dr. Haider, gen-surg on-call who agree with septic workup including CAT scan. WBC 14. lactate wnl. Was given empiric antibiotics with vancomycin and Zosyn. Dr. Haider, gen surgery, had discussed with infectious disease, Dr. Kraus, and agrees with coverage at this time. CT scan demonstrating question of evolving abscess, surgery was updated and their plan is pending. Case was discussed with Dr. Reyes, [facility] hospitalist, who will admit the patient for further management. Medication Reconcilliation Current Medication List: was personally reviewed by me Blood Pressure Screening Patient's blood pressure: Normal blood pressure Blood pressure disposition: Did not require urgent referral Consults Time Called: 1314 Consulting Physician: Dr. Quijano PA - general surgery Returned Call: 1314 I discussed the patient with 's PA - She will evaluate the patient for further treatment. Additional Consults: Time Called: 1320 Consulted Physician: Dr. Haider, general surgery Returned Call: 1320 Additional Comments: I discussed the patient with Dr. Haider, general surgery - He will evaluate the patient for further treatment. Impression Primary Impression: Intra-abdominal abscess Critical Care I have personally spent greater than 35 minutes of critical care time in the direct management of this patient. This includes bedside care, interpretation of diagnostic studies, and testing, discussion with consultants, patient, and family members, and other required patient management activities. This 35 minutes is in excess of all separately billable procedures. Scribe Attestation The scribe's documentation has been prepared under my direction and personally reviewed by me in its entirety. I confirm that the note above accurately reflects all work, treatment, procedures, and medical decision making performed by me. Departure Information Dispostion Being Evaluated By Hospitalist Referrals Madison Vivar M.D. (PCP) Forms HOME CARE DOCUMENTATION FORM, IMPORTANT VISIT INFORMATION, WORK / SCHOOL INSTRUCTIONS Patient Instructions My [facility]
[2017-11-04] MEDS ORDERED: METR-163 PO (13:21)
[2017-11-04] MEDS ORDERED: FLUT1INH7 INH (13:30)
[2017-11-04 13:31] LABS: BASO % 0.2 %; BASO ABS # 0.03 K/uL (0-0.2); EOS % 5.5 %; EOS ABS # 0.78 K/uL (0-0.5); HEMOGLOBIN 11.7 g/dL (12.0-16.0); IG# 0.12 K/uL (0.00-0.02); LYMPH % 16.9 %; LYMPH ABS # 2.41 K/uL (1.2-3.4); MEAN CELL VOLUME 80.9 fL (80-100); MEAN CORPUSCULAR HEMOGLOBIN 26.3 pg (25-34); MEAN CORPUSCULAR HGB CONC 32.5 g/dl (32-36); MONO % 11.1 %; MONO ABS # 1.59 K/uL (0.11-0.59); NEUT % 65.5 %; NEUT ABS # 9.36 K/uL (1.4-6.5); PLATELET COUNT 554 K/uL (130-400); RED CELL DISTRIBUTION WIDTH CV 15.6 % (11.5-14.5); RED CELL DISTRIBUTION WIDTH SD 45.6 fL (36.4-46.3); WHITE BLOOD COUNT 14.29 K/uL (4.8-10.8)
[2017-11-04] MEDS ORDERED: FLUC100T4 PO (13:32)
[2017-11-04] MEDS ORDERED: CIPR1TAB11 PO (13:34)
[2017-11-04] MEDS ORDERED: ATOR-22 PO (13:36)
[2017-11-04 13:42] LABS: INR 1.3 (0.9-1.1); PTT PATIENT 28.3 SECONDS (21.0-31.0)
[2017-11-04 13:52] LABS: ALBUMIN 2.6 gm/dl (3.4-5.0); ALT/SGPT 10 U/L (12-78); AST/SGOT 12 U/L (15-37); BLOOD UREA NITROGEN 14 mg/dl (7-18); CALCIUM 9.1 mg/dl (8.5-10.1); CARBON DIOXIDE 31 mmol/L (21-32); CREATININE 0.89 mg/dl (0.60-1.20); GLUCOSE 161 mg/dl (70-99); LIPASE 89 U/L (73-393); POTASSIUM 4.1 mmol/L (3.5-5.1); SODIUM 136 mmol/L (136-145)
--- NOTE | 2017-11-04 13:54 | Medical Consult ---
Consultation Date of Consultation: Nov 04, 2017. Attending Physician: Reason for Consultation: Cellulitis of the abdomen. History of Present Illness Ms. Bernard is a 51-year-old female who is s/p Attempted Lap, Converted to Open Laparotomy Low Anterior Resection, Intra-Op Sigmoidoscopy, Diverting Ileostomy with Dr. Rogers on 10/18/17- [facility]. Patient reports that she presented to ED today for evaluation of redness of the abdomen, possible incision infection, and increased drainage from ostomy. Patient reports that she was to see Dr. Rogers in the General Surgery Clinic last week where she was started on PO Cipro and Flagyl along with Diflucan for possible fungal infection. Patient states that her abdomen was mildly red during that visit, but the redness on her abdomen became worse over the last 2- 3 days. She reports that her appetite has been good and she has been eating well. Patient has a history of C.diff. Past Medical/Surgical History Medical Problems: (1) Abdominal pain Status: Acute (2) Abscess of labia majora Status: Acute (3) Acute vomiting Status: Acute (4) Cellulitis of labia majora Status: Acute (5) Hyperglycemia Status: Acute (6) Hyperglycemia due to type 2 diabetes mellitus Status: Acute (7) Hypertension Status: Acute (8) Low back pain Status: Acute (9) Morbid obesity Status: Acute (10) New onset a-fib Status: Acute (11) Pulmonary nodule Status: Acute (12) Rectal bleed Status: Acute (13) Rectal bleeding Status: Acute (14) Rectal cancer Status: Acute (15) Sepsis Status: Acute (16) Shortness of breath Status: Acute (17) Skin abscess Status: Acute (18) Urinary tract infection Status: Acute Family History Diabetes mellitus FH: heart disease FH: lung disease Hypertension Seizures Social History Smoking Status: Never Smoker Drug Use: none Marital Status: Housing Status: lives with significant other Occupation Status: disabled Allergies Coded Allergies: Daptomycin (Verified Allergy, Severe, SHORTNESS OF BREATH, 11/04/17) 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 Clindamycin (Verified Allergy, Intermediate, HIVES, 11/04/17) Sulfa Antibiotics (Verified Allergy, Intermediate, BACTRIM-HIVES, 11/04/17) BEE STING (Verified Allergy, Unknown, HIVES, 11/04/17) Trimethoprim (Verified Allergy, Unknown, HIVES, 11/04/17) Dulaglutide (Verified Adverse Reaction, Severe, BRAND-TRULICITY, SEVERE GI UPSET, CONSTIPATION, 11/04/17) Current Inpatient Medications Current Inpatient Medications Medications (Trade) Dose Ordered Sig/Viviana Route Start Time Stop Time Status Last Admin Dose Admin Sodium Chloride 1,000 ml @ 999 mls/hr Q1H1M STAT IV 11/04/17 13:10 11/04/17 14:10 Vancomycin HCl 2000 mg/Sodium Chloride 540 ml @ 200 mls/hr ONE STAT IV 11/04/17 13:10 11/04/17 15:51 Review of Systems Constitutional: + sweats, No fever, No chills Physical Exam Date Time Temp Pulse Resp B/P (MAP) Pulse Ox O2 Delivery O2 Flow Rate FiO2 11/04/17 12:06 116 11/04/17 12:05 94 Room Air 11/04/17 12:05 37.0 104 20 110/82 94 Room Air General Appearance: WD/WN, no apparent distress Respiratory/Chest: no respiratory distress Abdomen/GI: soft, + pertinent finding (adbomen, near stoma is red, warm to touch, and tender to palpation. Stoma appears retracted. ) Laboratory Results Last 24 Hours Test 11/04/17 13:10 11/04/17 13:18 White Blood Count 14.29 K/uL Red Blood Count 4.45 M/uL Hemoglobin 11.7 g/dL Hematocrit 36.0 % Mean Corpuscular Volume 80.9 fL Mean Corpuscular Hemoglobin 26.3 pg Mean Corpuscular Hemoglobin Concent 32.5 g/dl Platelet Count 554 K/uL Mean Platelet Volume 9.0 fL Neutrophils (%) (Auto) 65.5 % Lymphocytes (%) (Auto) 16.9 % Monocytes (%) (Auto) 11.1 % Eosinophils (%) (Auto) 5.5 % Basophils (%) (Auto) 0.2 % Neutrophils # (Auto) 9.36 K/uL Lymphocytes # (Auto) 2.41 K/uL Monocytes # (Auto) 1.59 K/uL Eosinophils # (Auto) 0.78 K/uL Basophils # (Auto) 0.03 K/uL RDW Standard Deviation 45.6 fL RDW Coefficient of Variation 15.6 % Immature Granulocyte % (Auto) 0.8 % Immature Granulocyte # (Auto) 0.12 K/uL Prothrombin Time 13.8 SECONDS Prothromb Time International Ratio 1.3 Activated Partial Thromboplast Time 28.3 SECONDS Partial Thromboplastin Ratio 1.1 Assessment & Plan 51-year-old female s/p Attempted Lap, Converted to Open Laparotomy Low Anterior Resection, Intra-Op Sigmoidoscopy, Diverting Ileostomy with Dr. Rogers on 10/18- [facility] increased redness and tenderness of skin near stoma. Cellulitis. Possible retracted stoma. History of C.diff- contact precautions. Patient seen and examined with Dr. Haider. Admit patient to Medicine's service. CT scan ordered in ED- results pending. IV antibiotics- Dr. Haider discussed appropriate antibiotics with Dr. Kraus, Infectious Disease. Patient will need wound care at stoma site. Will discuss with Dr. Rogers tomorrow. 11/04/17- pt with ileostomy- difficult [facility] on skin- some ulceration and cellulitis. for CT. Discussed atbx with Dr Kraus- best to continue Vanco and Zosyn. discuss with nurses and wound care team to control ileo output. She has normal affect. Dr Haider
[2017-11-04 13:57] LABS: ALKALINE PHOSPHATASE 84 U/L (45-117); TOTAL PROTEIN 7.5 gm/dl (6.4-8.2)
--- NOTE | 2017-11-04 14:38 | DIAGNOSTIC IMAGING REPORT ---
CHEST ONE VIEW PORTABLE CLINICAL HISTORY: 51 years-old Female presenting with Evaluate Fever/Sepsis. TECHNIQUE: Portable upright AP view of the chest was obtained. COMPARISON: 10/22/2012. FINDINGS: Cardiac silhouette mildly enlarged, unchanged. Continued decrease in right lung opacity. Pulmonary vasculature mildly prominent but less than on the prior exam. No large effusion or pneumothorax. Osseous structures normal. Upper abdomen normal. IMPRESSION: 1. Continued interval decrease in right lung opacity. No new focal infiltrate suggest pneumonia. Electronically signed by: Riaz Blackwood M.D. 11/04/2017 2:36 PM Dictated Date/Time: 11/04/2017 2:35 PM
[2017-11-04 15:07] LABS: INFLUENZA B ANTIGEN Neg for Influ B (NEG)
[2017-11-04] MEDS ORDERED: OPTIRAY 320 IV PRN (15:30)
--- NOTE | 2017-11-04 15:31 | DIAGNOSTIC IMAGING REPORT ---
ABD/PELVIS IV CONTRAST ONLY CLINICAL HISTORY: 51 years-old Female presenting with Wound dehiscence/infection abd/pain, history of rectal carcinoma. TECHNIQUE: Multidetector CT of the abdomen and pelvis was performed after the administration of intravenous contrast. IV contrast: 115 mL of Optiray 320. A dose lowering technique was used consistent with the principles of ALARA (as low as reasonably achievable). COMPARISON: 08/31/2017. CT DOSE (mGy.cm): The estimated cumulative dose is 1304.71 mGy.cm. FINDINGS: Internal Auditor topogram: Midline skin livan noted in the lower abdomen. Lung bases: 6 to 7 mm solid pulmonary nodule at the medial basal left lower lobe is unchanged. No new nodule at the lung bases. Coronary artery calcification. Normal heart size. No pericardial or pleural effusion. Liver: Mildly macronodular contour in the right lobe. Perfusional variation along the fissure for the ligamentum teres. No focal lesion. Patent hepatic vasculature. Biliary: No intrahepatic or extrahepatic biliary ductal dilatation. Normal gallbladder. Pancreas: Mild parenchymal atrophy. Spleen: Normal. Adrenal glands: Normal. Kidneys and ureters: Normal. No hydronephrosis. Bladder: Normal. Pelvic organs: Uterus surgically absent. Normal ovaries. Bowel: Postsurgical changes of low anterior resection with an anastomosis at the lower rectum. No bowel obstruction. A loop ileostomy is noted in the right lower quadrant. Peritoneal cavity: Rim-enhancing collection in the presacral space measuring 3.3 cm in maximal diameter. Mild surrounding inflammatory change. Linear radiodensity associated with this collection, indeterminant but possibly suture material or other surgical material. This is immediately posterior to the anastomotic site. Lymph nodes: Several prominent lymph nodes noted in the pelvis most significantly in the left external iliac region with a node measuring 9-10 mm in the short axis similar to prior exam. No additional sites of pathologically enlarged lymph nodes. Vasculature: Atherosclerosis of the normal caliber abdominal aorta. IVC patent. Abdominal wall: Midline infrarenal ventral surgical incision, which contains foci of gas and limited fluid, likely expected postoperative findings. Limited inflammatory change and skin thickening associated with the right lower quadrant loop ileostomy. Musculoskeletal: Degenerative changes of the spine. IMPRESSION: 1. Rim-enhancing fluid collection in the presacral region immediately posterior to the low anterior resection at the level of the lower rectum. This could represent expected postsurgical reactive fluid or developing abscess. Linear radiodensity in this region could represent retained surgical material versus suture. Correlate clinically. 2. Post surgical changes of low anterior resection with right lower quadrant loop ileostomy. No bowel obstruction. 3. The surgical midline scar is likely within the expected range of appearance in the immediate postoperative setting. 4. Borderline enlarged left external iliac lymph nodes, unchanged from prior. No new sites of lymphadenopathy. 5. Solid pulmonary nodule at the left lower lobe concerning for a site of metastases. This is unchanged from prior. The report will be called/faxed according to standard departmental protocol. Electronically signed by: Riaz Blackwood M.D. 11/04/2017 3:30 PM Dictated Date/Time: 11/04/2017 3:20 PM
[2017-11-04] MEDS ORDERED: VANCOMYCIN CONSULT ACTIVE PRN (16:15)
[2017-11-04] MEDS ORDERED: PIPERACILL/TAZOBAC CONSULT ACTIVE PRN ×2 (17:15→18:30)
[2017-11-04] MEDS ORDERED: PIPERACILL/TAZOBAC IV 4.5 GM in DEXTROSE 5% 100ML 100 ML IV SCH (18:30)
[2017-11-04] MEDS ORDERED: ALBUTEROL HFA 8 GM INHALER INH PRN (18:30)
[2017-11-04] MEDS ORDERED: CONSULT PHARMACY STA (18:30)
[2017-11-04] MEDS ORDERED: DEXTROSE 50% 50 ML SYR IV PRN (18:45)
[2017-11-04] MEDS ORDERED: GLUCOSE 10 TABS/TUBE PO PRN (18:45)
[2017-11-04] MEDS ORDERED: MAGNESIUM HYDROXIDE SUSP 30 ML UDC PO PRN ×2 (18:45)
[2017-11-04] MEDS ORDERED: GLUCOSE 40% GEL 15 GM TUBE PO PRN (18:45)
[2017-11-04] MEDS ORDERED: ONDANSETRON INJ 2 MG/ML 2 ML VIAL IV PRN ×2 (18:45)
[2017-11-04] MEDS ORDERED: GLUCAGON FOR INJ 1 MG VIAL SQ PRN (18:45)
[2017-11-04] MEDS ORDERED: ACETAMINOPHEN 325 MG TAB PO PRN (18:45)
[2017-11-04] MEDS ORDERED: ALUMINUM/MAGNESIUM/SIMETH (MAALOX MAX) 30 ML UDC PO PRN ×2 (18:45)
[2017-11-04] MEDS ORDERED: LORAZEPAM 2 MG/ML 1 ML VIAL IV PRN ×2 (18:45)
[2017-11-04] MEDS ORDERED: MoRPHine SULFATE 2 MG/ML CARP IV PRN (18:45)
--- NOTE | 2017-11-04 18:53 | History and Physical ---
History & Physical Date & Time of Service: Nov 04, 2017 at 18:27 Chief Complaint: Skin Problem Primary Care Physician: No Doctor, Assigned History of Present Illness 51-year-old female who suffers from diabetes and recently was diagnosed with colon cancer who underwent a colon resection and colostomy being discharged from our facility on October 25. She has developed progressive cellulitis her abdominal wall surrounding the colostomy output site due to difficulty with sealing the ostomy based on her body shape. She is morbidly obese and has direct impact on getting the ostomy to seal correctly. There is also a description of a possible fluid collection in the surgical field at this time surgery is considering this to possibly be a postoperative fluid collection rather than a true abscess although CT is describing it as a rim-enhancing lesion. Patient has some medical issues including obstructive sleep apnea and diabetes history of atrial fibrillation on chronic anticoagulation hypertension. She also recently was in our facility with an asthma exacerbation and some concern of diastolic heart failure due to her atrial fibrillation She however is pleasant and only mild distress currently is agreeable to admission Past Medical/Surgical History Medical Problems: (1) Diabetes mellitus type 2 in obese Status: Chronic (2) Dyslipidemia Status: Chronic (3) GERD (gastroesophageal reflux disease) Status: Chronic (4) Hepatitis Status: Chronic (5) HTN (hypertension) Status: Chronic (6) Hypothyroidism Status: Chronic patient is in a substantially high dose of Synthroid (8) Mitral regurgitation Permanent Comment: echo 10/14/15: mild-mod mitral regurg Status: Chronic (9) Morbid obesity with BMI of39.6 , adult Status: Chronic (10) MRSA (methicillin resistant Staphylococcus aureus) Status: Chronic (11) ANA (obstructive sleep apnea) Atrial fibrillation Status: Chronic Surgical Problems: (1) History of carpal tunnel surgery Permanent Comment: bilateral Status: Resolved (2) History of hysterectomy Permanent Comment: ovaries remain Status: Resolved (3) History of tonsillectomy and adenoidectomy Status: Resolved (4) History of tubal ligation Status: Resolved (5) Hx of total knee arthroplasty Permanent Comment: L knee 2006 Status: Resolved Family History Diabetes mellitus FH: heart disease FH: lung disease Hypertension Seizures Social History Smoking Status: Never Smoker Drug Use: none Marital Status: Housing status: lives with family Occupational Status: disabled Immunizations History of Influenza Vaccine: N/A Influenza Vaccine Date: Jun 19, 2011 History of Tetanus Vaccine?: Yes History of Pneumococcal: Yes Pneumococcal Date: February 23, 2011 History of Hepatitis B Vaccine: Yes Multi-Drug Resistant Organisms History of MDRO: Yes Type of MDRO: MRSA Allergies Coded Allergies: Daptomycin (Verified Allergy, Severe, SHORTNESS OF BREATH, 11/04/17) 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 Clindamycin (Verified Allergy, Intermediate, HIVES, 11/04/17) Sulfa Antibiotics (Verified Allergy, Intermediate, BACTRIM-HIVES, 11/04/17) BEE STING (Verified Allergy, Unknown, HIVES, 11/04/17) Trimethoprim (Verified Allergy, Unknown, HIVES, 11/04/17) Dulaglutide (Verified Adverse Reaction, Severe, BRAND-TRULICITY, SEVERE GI UPSET, CONSTIPATION, 11/04/17) Home Medications Scheduled Apixaban (Eliquis), 5 MG PO BID Atorvastatin (Lipitor), 20 MG PO HS Cholestyramine (Bulk) (Cholestyramine), 1 PKT DAILY Ciprofloxacin Tab (Cipro), 500 MG PO BID Famotidine (Pepcid), 20 MG PO DAILY Fluconazole (Diflucan), 100 MG PO QAM Fluticasone Furoate-Vilanterol (Breo Ellipta 200-25 Mcg/INH), 1 PUFF INH QAM Furosemide (Lasix), 20 MG PO QAM Insulin Aspart (Novolog), UNITS SQ TIDM Insulin Glargine (Toujeo Solostar), 15 UNITS SQ DAILY Ipratropium-Albuterol (Combivent Respimat), 1 PUFFS INH QID Lactobacillus Acidophilus (Lactinex), 4 TAB PO TID Levothyroxine Sodium (Levothyroxine Sodium), 6 TAB PO DAILY Lisinopril (Lisinopril), 5 MG PO QAM Loratadine (Claritin), 10 MG PO QAM Magnesium Oxide (Mag-Ox), 400 MG PO DAILY Metoprolol Succinate (Toprol Xl), 50 MG PO DAILY Metronidazole (Flagyl), 500 MG PO TID Montelukast Sod (Montelukast Sodium), 10 MG PO HS Potassium Chloride (Micro-K Ext Rel), 10 MEQ PO QAM Scheduled PRN Albuterol Hfa (Ventolin Hfa), 2-4 PUFFS INH Q6H PRN for ASTHMA Nitroglycerin (Nitrostat), 0.4 MG UT UD PRN for Chest Pain Ondansetron Hcl (Zofran), 8 MG PO Q6 PRN for Nausea Oxycodone HCl (Oxycodone HCl), 5-10 MG PO Q4H PRN for Pain Oxycodone/Acetaminophen 5MG/325MG (Percocet 5MG/325MG), 1 TABLETS PO Q12H PRN for Pain Review of Systems ROS: well nourished well developed morbidly obese No double vision blurry vision No problems with speech or swallowing No palpitations, chest pain or pressure No Wheezing or breathing issues Patient has some abdominal pain surrounding the ostomy site with marked erythema and some crusting of the surgical incisions but she has no nausea vomiting diarrhea No burning urine urine frequency or changes in color No focal joint pain or muscle pain No skin rashes or oral lesions No unusual bruising or bleeding No focused back pain or numbness or loss of strength No changes in memory or confusion Physical Exam Vital Signs Date Time Temp Pulse Resp B/P (MAP) Pulse Ox O2 Delivery O2 Flow Rate FiO2 11/04/17 18:16 103 16 109/79 97 Room Air 11/04/17 16:07 94 11/04/17 16:06 97 20 114/97 98 Room Air 11/04/17 15:00 102 16 106/73 96 Room Air 11/04/17 13:00 101 22 112/83 97 Room Air 11/04/17 12:06 116 11/04/17 12:05 94 Room Air 11/04/17 12:05 37.0 104 20 110/82 94 Room Air General Appearance: + mild distress, + obese Head: normocephalic, atraumatic Eyes: normal inspection, sclerae normal Neck: supple, no JVD Respiratory/Chest: chest non-tender, lungs clear, normal breath sounds Cardiovascular: regular rate, rhythm, + systolic murmur Abdomen/GI: soft, + tenderness, + distended, + guarding, + pertinent finding ( marked erythema surrounding the pannus with tenderness throughout the incision some crusting and livan in place) Back: no CVA tenderness, no muscle spasm Neurologic/Psych: alert, oriented x 3 Skin: normal color, warm/dry, no rash Diagnostics Laboratory Results Results Past 24 Hours Test 11/04/17 13:18 11/04/17 13:50 11/04/17 14:04 11/04/17 16:00 Range/Units White Blood Count 14.29 4.8-10.8 K/uL Red Blood Count 4.45 4.2-5.4 M/uL Hemoglobin 11.7 12.0-16.0 g/dL Hematocrit 36.0 37-47 % Mean Corpuscular Volume 80.9 80-100 fL Mean Corpuscular Hemoglobin 26.3 25-34 pg Mean Corpuscular Hemoglobin Concent 32.5 32-36 g/dl Platelet Count 554 130-400 K/uL Mean Platelet Volume 9.0 7.4-10.4 fL Neutrophils (%) (Auto) 65.5 % Lymphocytes (%) (Auto) 16.9 % Monocytes (%) (Auto) 11.1 % Eosinophils (%) (Auto) 5.5 % Basophils (%) (Auto) 0.2 % Neutrophils # (Auto) 9.36 1.4-6.5 K/uL Lymphocytes # (Auto) 2.41 1.2-3.4 K/uL Monocytes # (Auto) 1.59 0.11-0.59 K/uL Eosinophils # (Auto) 0.78 0-0.5 K/uL Basophils # (Auto) 0.03 0-0.2 K/uL RDW Standard Deviation 45.6 36.4-46.3 fL RDW Coefficient of Variation 15.6 11.5-14.5 % Immature Granulocyte % (Auto) 0.8 % Immature Granulocyte # (Auto) 0.12 0.00-0.02 K/uL Prothrombin Time 13.8 9.0-12.0 SECONDS Prothromb Time International Ratio 1.3 0.9-1.1 Activated Partial Thromboplast Time 28.3 21.0-31.0 SECONDS Partial Thromboplastin Ratio 1.1 Sodium Level 136 136-145 mmol/L Potassium Level 4.1 3.5-5.1 mmol/L Chloride Level 98 98-107 mmol/L Carbon Dioxide Level 31 21-32 mmol/L Anion Gap 7.0 3-11 mmol/L Blood Urea Nitrogen 14 7-18 mg/dl Creatinine 0.89 0.60-1.20 mg/dl Est Creatinine Clear Calc Drug Dose 73.9 ml/min Estimated GFR () 85.8 Estimated GFR (Non- 74.0 BUN/Creatinine Ratio 15.4 10-20 Random Glucose 161 70-99 mg/dl Lactic Acid Level 1.7 0.4-2.0 mmol/L Calcium Level 9.1 8.5-10.1 mg/dl Total Bilirubin 0.7 0.2-1 mg/dl Direct Bilirubin 0.2 0-0.2 mg/dl Aspartate Amino Transf (AST/SGOT) 12 15-37 U/L Alanine Aminotransferase (ALT/SGPT) 10 12-78 U/L Alkaline Phosphatase 84 45-117 U/L Troponin I < 0.015 0-0.045 ng/ml Total Protein 7.5 6.4-8.2 gm/dl Albumin 2.6 3.4-5.0 gm/dl Lipase 89 73-393 U/L Influenza Type A Antigen Neg for Influ A NEG Influenza Type B Antigen Neg for Influ B NEG Venous Blood pH 7.39 7.36-7.41 Venous Blood Partial Pressure CO2 47 38.0-50.0 mmHg Venous Blood Partial Pressure O2 56 mmHg Venous Blood HCO3 27 mmol/L Venous Blood Oxygen Saturation 86.3 % Venous Blood Base Excess 1.9 mEq/L Urine Color DK YELLOW Urine Appearance CLEAR CLEAR Urine pH 5.5 4.5-7.5 Urine Specific [place] 1.038 1.000-1.030 Urine Protein NEG NEG Urine Glucose (UA) NEG NEG Urine Ketones TRACE NEG Urine Occult Blood NEG NEG Urine Nitrite POS NEG Urine Bilirubin NEG NEG Urine Urobilinogen NEG NEG Urine Leukocyte Esterase SMALL NEG Urine WBC (Auto) 5-10 0-5 /hpf Urine RBC (Auto) 5-10 0-4 /hpf Urine Hyaline Casts (Auto) 5-10 0-5 /lpf Urine Epithelial Cells (Auto) >30 0-5 /lpf Urine Bacteria (Auto) NEG NEG Urine Pathogenic Casts 0 /lpf Microbiology Results 11/04/17 Blood Culture, Received Pending 11/04/17 Blood Culture, Received Pending Diagnostic Radiology CT scan of abdomen and pelvis1. Rim-enhancing fluid collection in the presacral region immediately posterior to the low anterior resection at the level of the lower rectum. This could represent expected postsurgical reactive fluid or developing abscess. Linear radiodensity in this region could represent retained surgical material versus suture. Correlate clinically. 2. Post surgical changes of low anterior resection with right lower quadrant loop ileostomy. No bowel obstruction. 3. The surgical midline scar is likely within the expected range of appearance in the immediate postoperative setting. 4. Borderline enlarged left external iliac lymph nodes, unchanged from prior. No new sites of lymphadenopathy. 5. Solid pulmonary nodule at the left lower lobe concerning for a site of metastases. This is unchanged from prior. CXR normal other (atrial flutter controlled ventricular rate) Impression Assessment and Plan 51-year-old female here with the surgical site infection of abdominal cellulitis with concern for possible abscess For the abdominal wall cellulitis the patient be placed on vancomycin and Zosyn cultures are obtained and a surgical consult be garnered in case surgery is indicated her anticoagulation of Xarelto will be held wound consult will be undertaken for assistance and ostomy site care For the patient's atrial fibrillation she knows in a flutter she'll be maintained on her metoprolol with Eliquis held her secondary risk prevention Lipitor will be continued Additionally for hypertension and renal protective effects from her diabetes lisinopril be maintained at 5 With regard to her diabetes she's been on various diabetic regimens over the last few months currently it seems she is on Tojeo at 15 will convert this to Lantus and add a sliding scale with a diabetic diet scissors no plans of taken to surgery right now she is not nothing by mouth Regard to her asthma she'll be maintained on her Combivent and Singulair With regard to severe hypothyroidism she appears clinically euthyroid and she is on a significantly high dose of Synthroid in the chart documented at 1200 g a day She is obstructive sleep apnea will supply her CPAP and to bring her home unit in Her morbid obesity directly impacts both her wound care her healing and her sleep apnea DVT prevention is based on SCDs
[2017-11-04] MEDS ORDERED: LORAZEPAM INJ 1 MG in SYRINGE 0.5 ML IV PRN (20:30)
[2017-11-04] MEDS ORDERED: LORAZEPAM INJ 0.5 MG in SYRINGE 0.75 ML IV PRN (20:30)
--- NOTE | 2017-11-04 20:52 | Pharmacy Progress Note ---
Pharmacy Abx Initial Consult Date of Service Nov 04, 2017. Pharmacy Dosing Scope Date of Consult: 11/04/17 Consultation requested by: Dr. Haider Pharmacy is consulted to initiate Vancomycin and Zosyn IV dosing therapy, order appropriate labs and adjust drug dose/frequency. Subjective The patient is a 51 year old female admitted on Nov 04, 2017 at 19:38. Objective Height (Feet): 5 Height (Inches): 0 Weight (Kilograms): 91.90 Vital Signs (Past 12Hrs) Vital Signs Past 12 Hours Date Time Temp Pulse Resp B/P (MAP) Pulse Ox O2 Delivery O2 Flow Rate FiO2 11/04/17 19:18 106 20 131/61 97 Room Air 11/04/17 18:16 103 16 109/79 97 Room Air 11/04/17 16:07 94 11/04/17 16:06 97 20 114/97 98 Room Air 11/04/17 15:00 102 16 106/73 96 Room Air 11/04/17 13:00 101 22 112/83 97 Room Air 11/04/17 12:06 116 11/04/17 12:05 94 Room Air 11/04/17 12:05 37.0 104 20 110/82 94 Room Air Lab Results (24Hrs) Laboratory Tests (24 Hours) Test 11/04/17 13:18 Lactic Acid Level 1.7 mmol/L (0.4-2.0) White Blood Count 14.29 K/uL (4.8-10.8) H Red Blood Count 4.45 M/uL (4.2-5.4) Hemoglobin 11.7 g/dL (12.0-16.0) L Hematocrit 36.0 % (37-47) L Mean Corpuscular Volume 80.9 fL (80-100) Mean Corpuscular Hemoglobin 26.3 pg (25-34) Mean Corpuscular Hemoglobin Concent 32.5 g/dl (32-36) Platelet Count 554 K/uL (130-400) H Mean Platelet Volume 9.0 fL (7.4-10.4) Neutrophils (%) (Auto) 65.5 % Lymphocytes (%) (Auto) 16.9 % Monocytes (%) (Auto) 11.1 % Eosinophils (%) (Auto) 5.5 % Basophils (%) (Auto) 0.2 % Neutrophils # (Auto) 9.36 K/uL (1.4-6.5) H Lymphocytes # (Auto) 2.41 K/uL (1.2-3.4) Monocytes # (Auto) 1.59 K/uL (0.11-0.59) H Eosinophils # (Auto) 0.78 K/uL (0-0.5) H Basophils # (Auto) 0.03 K/uL (0-0.2) Micro Results Date/Time Source Procedure Growth Status 11/04/17 14:04 Blood Blood Culture Pending Received 11/04/17 13:18 Blood Blood Culture Pending Received Risk Factors for Resistance * Hospitalization for 48 hours or more within the past 90 days * Antimicrobial use within the last 90 days: Cipro/Flagyl Assessment & Plan Assessment 51 year old female on empiric IV Vancomycin and Zosyn for abdominal wall cellulitis, possible abscess. Also with possible post-colon surgery infection. * Pharmacy has dosed Vancomycin for patient in the past * Most recent sCr = 0.84 mg/dL with estimated CrCl ~74 mL/min. Estimated pharmacokinetic parameters: * Ke ~0.065/hr, T1/2 ~10.5 hrs * A maintenance regimen of Vancomycin 1250mg IV q12 (after a loading dose of 2500mg) resulted in an early trough (not yet steady state) of 13.8 mg/dL. Renal function at that time was better than current. * Patient received Vancomycin 2000mg (~22mg/kg) IV x 1 as a loading dose in the ED * Will need to be cautious with Vancomycin dosing due to patient's obesity (BMI 39.6 kg/m2); possible risk for drug accumulation. * Given past data and with treating cellulitis vs. pneumonia (lower trough level acceptable), will again dose patient with Vancomycin 1250mg IV q12. Plan Vancomycin IV * Maintenance dose: 1250 mg IV (~14 mg/kg) every 12 hours * Goal trough level for cellulitis : ~15 mcg/mL * Trough level ordered for 11/06/17 @ 0130 (only prior to the 3rd dose and therefore not reflective of steady state, but would like to assess dosing regimen early due to obesity) Piperacillin/tazobactam * Zosyn 4.5g IV x 1 was given as a loading dose in the ED * Initiate 4.5 g IV extended infusion every 8 hours for CrCl greater than 20 mL/ min * Aggressive dosing selected due to critically ill status/BMI 35 or more/ history of cystic fibrosis. Pharmacy will continue to follow and will adjust dose/frequency as necessary. Thank you.
[2017-11-04 20:55] VITALS: BP 106/73; PULSE 111; TEMP 36.6; O2SAT 96; BMI 39.3
[2017-11-04] MEDS: SODIUM CHLORIDE 0.9% 1000ML 1,000 ML IV SCH (21:36)
[2017-11-04] MEDS: IPRATROPIUM BROMIDE/ALBUTEROL respimat INH INH SCH (21:37)
[2017-11-04] MEDS: LACTOBACILLUS ACIDOPHILUS (FLORANEX) TAB PO SCH (21:39)
[2017-11-04] MEDS: PIPERACILL/TAZOBAC IV 4.5 GM in DEXTROSE 5% 100ML 100 ML IV SCH (21:40)
[2017-11-04] MEDS: MONTELUKAST SOD 10 MG TAB PO SCH (21:40)
[2017-11-04] MEDS: ATORVASTATIN 20 MG TAB PO SCH (21:40)
[2017-11-04] MEDS: INSULIN GLARGINE SOLOSTAR 100 UNITS/ML 3 ML PEN SC SCH (21:43)
[2017-11-04] MEDS: INSULIN ASPART 100 UNITS/ML 3 ML PEN SC SCH (21:46)
[2017-11-04 22:10] VITALS: PULSE 92; O2SAT 96
[2017-11-05] VITALS: BP 119/81; PULSE 103; TEMP 36.6; O2SAT 95
[2017-11-05] MEDS: MoRPHine SULFATE 4 MG/ML 1 ML CARP\\VIAL IV PRN ×2 (04:14→09:19)
[2017-11-05] MEDS: VANCOMYCIN IV 1,250 MG in SODIUM CHLORIDE 0.9% 250ML 250 ML IV SCH ×2 (04:14→14:38)
[2017-11-05] MEDS: PIPERACILL/TAZOBAC IV 4.5 GM in DEXTROSE 5% 100ML 100 ML IV SCH ×3 (06:26→21:01)
[2017-11-05] MEDS: SODIUM CHLORIDE 0.9% 1000ML 1,000 ML IV SCH (06:30)
[2017-11-05] MEDS: LEVOTHYROXINE 200 MCG TAB PO SCH (06:43)
[2017-11-05 07:39] LABS: HEMATOCRIT 34.1 % (37-47); MEAN CELL VOLUME 81.8 fL (80-100); MEAN CORPUSCULAR HEMOGLOBIN 26.4 pg (25-34); MEAN CORPUSCULAR HGB CONC 32.3 g/dl (32-36); MEAN PLATELET VOLUME 9.1 fL (7.4-10.4); PLATELET COUNT 485 K/uL (130-400); RED CELL DISTRIBUTION WIDTH CV 15.7 % (11.5-14.5); WHITE BLOOD COUNT 11.57 K/uL (4.8-10.8)
[2017-11-05 08:06] LABS: CALCIUM 8.6 mg/dl (8.5-10.1); CREATININE 0.82 mg/dl (0.60-1.20)
[2017-11-05 08:27] VITALS: BP 106/64; PULSE 98; TEMP 36.6; O2SAT 98
--- NOTE | 2017-11-05 08:35 | Surgery Progress Note ---
Surgery Progress Note Date of Service Nov 05, 2017. Subjective + pain controlled, No nausea, No vomiting Objective Vital Signs: Date Time Temp Pulse Resp B/P (MAP) Pulse Ox O2 Delivery O2 Flow Rate FiO2 11/05/17 00:00 CPAP 11/05/17 00:00 36.6 103 18 119/81 (94) 95 Room Air 11/04/17 22:10 92 96 21 11/04/17 20:55 36.6 111 20 106/73 96 Room Air 11/04/17 19:18 106 20 131/61 97 Room Air 11/04/17 18:16 103 16 109/79 97 Room Air 11/04/17 16:07 94 11/04/17 16:06 97 20 114/97 98 Room Air 11/04/17 15:00 102 16 106/73 96 Room Air 11/04/17 13:00 101 22 112/83 97 Room Air 11/04/17 12:06 116 11/04/17 12:05 94 Room Air 11/04/17 12:05 37.0 104 20 110/82 94 Room Air General Appearance: WD/WN, no apparent distress Abdomen: soft, + pertinent finding (Redness on abdomen improving, stoma functioning. [place] still present in incision. ) Incision(s): clean, dry, intact Laboratory Results: Results Past 24 Hours Test 11/04/17 13:18 11/04/17 13:50 11/04/17 14:04 11/04/17 16:00 Range/Units White Blood Count 14.29 4.8-10.8 K/uL Red Blood Count 4.45 4.2-5.4 M/uL Hemoglobin 11.7 12.0-16.0 g/dL Hematocrit 36.0 37-47 % Mean Corpuscular Volume 80.9 80-100 fL Mean Corpuscular Hemoglobin 26.3 25-34 pg Mean Corpuscular Hemoglobin Concent 32.5 32-36 g/dl Platelet Count 554 130-400 K/uL Mean Platelet Volume 9.0 7.4-10.4 fL Neutrophils (%) (Auto) 65.5 % Lymphocytes (%) (Auto) 16.9 % Monocytes (%) (Auto) 11.1 % Eosinophils (%) (Auto) 5.5 % Basophils (%) (Auto) 0.2 % Neutrophils # (Auto) 9.36 1.4-6.5 K/uL Lymphocytes # (Auto) 2.41 1.2-3.4 K/uL Monocytes # (Auto) 1.59 0.11-0.59 K/uL Eosinophils # (Auto) 0.78 0-0.5 K/uL Basophils # (Auto) 0.03 0-0.2 K/uL RDW Standard Deviation 45.6 36.4-46.3 fL RDW Coefficient of Variation 15.6 11.5-14.5 % Immature Granulocyte % (Auto) 0.8 % Immature Granulocyte # (Auto) 0.12 0.00-0.02 K/uL Prothrombin Time 13.8 9.0-12.0 SECONDS Prothromb Time International Ratio 1.3 0.9-1.1 Activated Partial Thromboplast Time 28.3 21.0-31.0 SECONDS Partial Thromboplastin Ratio 1.1 Sodium Level 136 136-145 mmol/L Potassium Level 4.1 3.5-5.1 mmol/L Chloride Level 98 98-107 mmol/L Carbon Dioxide Level 31 21-32 mmol/L Anion Gap 7.0 3-11 mmol/L Blood Urea Nitrogen 14 7-18 mg/dl Creatinine 0.89 0.60-1.20 mg/dl Est Creatinine Clear Calc Drug Dose 73.9 ml/min Estimated GFR () 85.8 Estimated GFR (Non- 74.0 BUN/Creatinine Ratio 15.4 10-20 Random Glucose 161 70-99 mg/dl Lactic Acid Level 1.7 0.4-2.0 mmol/L Calcium Level 9.1 8.5-10.1 mg/dl Total Bilirubin 0.7 0.2-1 mg/dl Direct Bilirubin 0.2 0-0.2 mg/dl Aspartate Amino Transf (AST/SGOT) 12 15-37 U/L Alanine Aminotransferase (ALT/SGPT) 10 12-78 U/L Alkaline Phosphatase 84 45-117 U/L Troponin I < 0.015 0-0.045 ng/ml Total Protein 7.5 6.4-8.2 gm/dl Albumin 2.6 3.4-5.0 gm/dl Lipase 89 73-393 U/L Influenza Type A Antigen Neg for Influ A NEG Influenza Type B Antigen Neg for Influ B NEG Venous Blood pH 7.39 7.36-7.41 Venous Blood Partial Pressure CO2 47 38.0-50.0 mmHg Venous Blood Partial Pressure O2 56 mmHg Venous Blood HCO3 27 mmol/L Venous Blood Oxygen Saturation 86.3 % Venous Blood Base Excess 1.9 mEq/L Urine Color DK YELLOW Urine Appearance CLEAR CLEAR Urine pH 5.5 4.5-7.5 Urine Specific [place] 1.038 1.000-1.030 Urine Protein NEG NEG Urine Glucose (UA) NEG NEG Urine Ketones TRACE NEG Urine Occult Blood NEG NEG Urine Nitrite POS NEG Urine Bilirubin NEG NEG Urine Urobilinogen NEG NEG Urine Leukocyte Esterase SMALL NEG Urine WBC (Auto) 5-10 0-5 /hpf Urine RBC (Auto) 5-10 0-4 /hpf Urine Hyaline Casts (Auto) 5-10 0-5 /lpf Urine Epithelial Cells (Auto) >30 0-5 /lpf Urine Bacteria (Auto) NEG NEG Urine Pathogenic Casts 0 /lpf Test 11/04/17 19:15 11/04/17 20:57 11/05/17 07:25 Range/Units Bedside Glucose 107 209 70-90 mg/dl White Blood Count 11.57 4.8-10.8 K/uL Red Blood Count 4.17 4.2-5.4 M/uL Hemoglobin 11.0 12.0-16.0 g/dL Hematocrit 34.1 37-47 % Mean Corpuscular Volume 81.8 80-100 fL Mean Corpuscular Hemoglobin 26.4 25-34 pg Mean Corpuscular Hemoglobin Concent 32.3 32-36 g/dl RDW Standard Deviation 47.0 36.4-46.3 fL RDW Coefficient of Variation 15.7 11.5-14.5 % Platelet Count 485 130-400 K/uL Mean Platelet Volume 9.1 7.4-10.4 fL Sodium Level 137 136-145 mmol/L Potassium Level 4.0 3.5-5.1 mmol/L Chloride Level 103 98-107 mmol/L Carbon Dioxide Level 27 21-32 mmol/L Anion Gap 8.0 3-11 mmol/L Blood Urea Nitrogen 10 7-18 mg/dl Creatinine 0.82 0.60-1.20 mg/dl Est Creatinine Clear Calc Drug Dose 79.9 ml/min Estimated GFR () 94.7 Estimated GFR (Non- 81.7 BUN/Creatinine Ratio 12.3 10-20 Random Glucose 113 70-99 mg/dl Calcium Level 8.6 8.5-10.1 mg/dl Magnesium Level 1.5 1.8-2.4 mg/dl Microbiology Results 11/04/17 Blood Culture, Received Pending 11/04/17 Blood Culture, Received Pending Assessment & Plan 11/05/2017 patient see and examined with Dr. Rogers. CT scan reviewed from yesterday Redness slightly improved overnight Continue IV abx. Wound care consult Will attempt to slow ostomy output- will place PICC line, order TPN, keep patient on clear liquid diet. pt seen. as above. erythema improving already. ileostomy is difficult situation /impossible to keep bag in place secondary to body habitus will need to get cellulitis improved prior to attempting reversal will make NPO/sips clears; start TPN; start sandostatin to try and decrease ileostomy output. I do not believe the small pelvis fluid collection is worth going after at this point. wbc already decreasing. will remove livan will obtain BE in the next day or 2. will likely need to have her ileostomy reversed this admission appreciate ID input wound care consult obtained.
[2017-11-05 09:00] VITALS: O2SAT 98
--- NOTE | 2017-11-05 09:01 | Hospitalist Progress Note ---
Hospitalist Progress Note Date of Service Nov 05, 2017. Subjective Pt evaluation today including: conversation w/ patient, physical exam, chart review, lab review, review of studies Pain: Abdominal pain PO Intake: Good Voiding: no voiding problems The patient was seen and examined this morning. Pt reports having moderate abdominal pain secondary to her abdominal cellulitis. She did have some nausea earlier today, but has not vomited since last night. She reports nursing just removed her livan from her abdominal wound. She feels that it is leaking down her side. PICC team is here to place a PICC line currently. She denies any fever, chills or sweats currently, although reports she frequently fluctuates between feeling hot and cold. ROS: Constitutional: No fever, sweats or chills Eyes: No diplopia, no worsening or blurred vision ENT: normal hearing, no trouble swallowing Respiratory: No cough, sputum, dyspnea at rest or on exertion Cardiovascular: No chest pain, tightness or palpitations Abdomen: See above. Musculoskeletal: No joint pain, calf pain, swelling Neurologic: No weakness, numbness/tingling, or balance problems Psychiatric: No anxiety or depression Skin: No rash or itch Objective Vital Signs Date Time Temp Pulse Resp B/P (MAP) Pulse Ox O2 Delivery O2 Flow Rate FiO2 11/05/17 08:27 36.6 98 18 106/64 (78) 98 Room Air 11/05/17 00:00 CPAP 11/05/17 00:00 36.6 103 18 119/81 (94) 95 Room Air 11/04/17 22:10 92 96 21 11/04/17 20:55 36.6 111 20 106/73 96 Room Air 11/04/17 19:18 106 20 131/61 97 Room Air 11/04/17 18:16 103 16 109/79 97 Room Air 11/04/17 16:07 94 11/04/17 16:06 97 20 114/97 98 Room Air 11/04/17 15:00 102 16 106/73 96 Room Air 11/04/17 13:00 101 22 112/83 97 Room Air 11/04/17 12:06 116 11/04/17 12:05 94 Room Air 11/04/17 12:05 37.0 104 20 110/82 94 Room Air Physical Exam General Appearance: WD/WN, no apparent distress, + obese (morbidly) Eyes: PERRL, EOMI ENT: hearing grossly normal, pharynx normal, + pertinent finding (MMM) Neck: supple, no JVD Respiratory/Chest: chest non-tender, lungs clear, no respiratory distress, no accessory muscle use, + pertinent finding (on RA) Cardiovascular: + systolic murmur, + irregularly irregular (rate controlled) Abdomen: + pertinent finding (Obese, + erythematous pannus, also involving the folds, + RLQ abdominal wound weeping purulent bloody fluid, semi-packed with kerlix, livan removed from midline incision. +tenderness with minimal palpation.) Extremities: non-tender, no pedal edema, no calf tenderness Neurologic/Psychiatric: alert, normal mood/affect, oriented x 3 Skin: normal color, warm/dry Laboratory Results Last 24 Hours Test 11/04/17 13:18 11/04/17 13:50 11/04/17 14:04 11/04/17 16:00 White Blood Count 14.29 K/uL Red Blood Count 4.45 M/uL Hemoglobin 11.7 g/dL Hematocrit 36.0 % Mean Corpuscular Volume 80.9 fL Mean Corpuscular Hemoglobin 26.3 pg Mean Corpuscular Hemoglobin Concent 32.5 g/dl Platelet Count 554 K/uL Mean Platelet Volume 9.0 fL Neutrophils (%) (Auto) 65.5 % Lymphocytes (%) (Auto) 16.9 % Monocytes (%) (Auto) 11.1 % Eosinophils (%) (Auto) 5.5 % Basophils (%) (Auto) 0.2 % Neutrophils # (Auto) 9.36 K/uL Lymphocytes # (Auto) 2.41 K/uL Monocytes # (Auto) 1.59 K/uL Eosinophils # (Auto) 0.78 K/uL Basophils # (Auto) 0.03 K/uL RDW Standard Deviation 45.6 fL RDW Coefficient of Variation 15.6 % Immature Granulocyte % (Auto) 0.8 % Immature Granulocyte # (Auto) 0.12 K/uL Prothrombin Time 13.8 SECONDS Prothromb Time International Ratio 1.3 Activated Partial Thromboplast Time 28.3 SECONDS Partial Thromboplastin Ratio 1.1 Sodium Level 136 mmol/L Potassium Level 4.1 mmol/L Chloride Level 98 mmol/L Carbon Dioxide Level 31 mmol/L Anion Gap 7.0 mmol/L Blood Urea Nitrogen 14 mg/dl Creatinine 0.89 mg/dl Est Creatinine Clear Calc Drug Dose 73.9 ml/min Estimated GFR () 85.8 Estimated GFR (Non- 74.0 BUN/Creatinine Ratio 15.4 Random Glucose 161 mg/dl Lactic Acid Level 1.7 mmol/L Calcium Level 9.1 mg/dl Total Bilirubin 0.7 mg/dl Direct Bilirubin 0.2 mg/dl Aspartate Amino Transf (AST/SGOT) 12 U/L Alanine Aminotransferase (ALT/SGPT) 10 U/L Alkaline Phosphatase 84 U/L Troponin I < 0.015 ng/ml Total Protein 7.5 gm/dl Albumin 2.6 gm/dl Lipase 89 U/L Influenza Type A Antigen Neg for Influ A Influenza Type B Antigen Neg for Influ B Venous Blood pH 7.39 Venous Blood Partial Pressure CO2 47 mmHg Venous Blood Partial Pressure O2 56 mmHg Venous Blood HCO3 27 mmol/L Venous Blood Oxygen Saturation 86.3 % Venous Blood Base Excess 1.9 mEq/L Urine Color DK YELLOW Urine Appearance CLEAR Urine pH 5.5 Urine Specific [place] 1.038 Urine Protein NEG Urine Glucose (UA) NEG Urine Ketones TRACE Urine Occult Blood NEG Urine Nitrite POS Urine Bilirubin NEG Urine Urobilinogen NEG Urine Leukocyte Esterase SMALL Urine WBC (Auto) 5-10 /hpf Urine RBC (Auto) 5-10 /hpf Urine Hyaline Casts (Auto) 5-10 /lpf Urine Epithelial Cells (Auto) >30 /lpf Urine Bacteria (Auto) NEG Urine Pathogenic Casts /lpf Test 11/04/17 19:15 11/04/17 20:57 11/05/17 07:25 Bedside Glucose 107 mg/dl 209 mg/dl White Blood Count 11.57 K/uL Red Blood Count 4.17 M/uL Hemoglobin 11.0 g/dL Hematocrit 34.1 % Mean Corpuscular Volume 81.8 fL Mean Corpuscular Hemoglobin 26.4 pg Mean Corpuscular Hemoglobin Concent 32.3 g/dl RDW Standard Deviation 47.0 fL RDW Coefficient of Variation 15.7 % Platelet Count 485 K/uL Mean Platelet Volume 9.1 fL Sodium Level 137 mmol/L Potassium Level 4.0 mmol/L Chloride Level 103 mmol/L Carbon Dioxide Level 27 mmol/L Anion Gap 8.0 mmol/L Blood Urea Nitrogen 10 mg/dl Creatinine 0.82 mg/dl Est Creatinine Clear Calc Drug Dose 79.9 ml/min Estimated GFR () 94.7 Estimated GFR (Non- 81.7 BUN/Creatinine Ratio 12.3 Random Glucose 113 mg/dl Calcium Level 8.6 mg/dl Magnesium Level 1.5 mg/dl Assessment and Plan 51 yo female here with the surgical site infection of abdominal cellulitis with concern for possible abscess Abdominal wall cellulitis - ID on board- continue on vancomycin and Zosyn (started on 11/03), follow wound cultures. Was on cipro/flagyl prior to admission. - Gen surgical consulted- keeping on clear liquid diet, plans for ileostomy reversal during this admission but they would like cellulitis to be more improved - ileostomy very difficult to maintain bag in correct position due to body habitus. . - Wound consulted for ostomy site care - hold anticoagulation Eliquis - NPO/sips clears; start TPN; start sandostatin to try and decrease ileostomy output. - [place] out Atrial fibrillation - maintained on her metoprolol succ 50 mg daily - Holding Eliquis HLD - Lipitor will be continued Hypertension - cont lisinopril 5 mg daily DM II - She's been on various diabetic regimens over the last few months - currently on Tojeo at 15 U will convert this to Lantus 15 U QPM and ISS with accuchecks achs - will adjust to half dose if surgical procedure planned Asthma - Cont Combivent and Singulair Reverse hypothyroidism - she appears clinically euthyroid and she is on a significantly high dose of Synthroid in the chart documented at 1200 g a day obstructive sleep apnea - supply her CPAP and asked to bring her home unit in Her morbid obesity directly impacts both her wound care her healing and her sleep apnea DVT prevention : SCDs CODE STATUS: FULL
[2017-11-05] MEDS: FLUCONAZOLE 100 MG TAB PO SCH (09:02)
[2017-11-05] MEDS: LISINOPRIL 5 MG TAB PO SCH (09:03)
[2017-11-05] MEDS: LACTOBACILLUS ACIDOPHILUS (FLORANEX) TAB PO SCH ×3 (09:03→20:18)
[2017-11-05] MEDS: POTASSIUM CHLORIDE 10 MEQ TABCR PO SCH (09:03)
[2017-11-05] MEDS: METOPROLOL SUCC 50MG EXT REL TAB PO SCH (09:04)
[2017-11-05] MEDS: FUROSEMIDE 20 MG TAB PO SCH (09:04)
[2017-11-05] MEDS: FAMOTIDINE 20 MG TAB PO SCH (09:04)
[2017-11-05] MEDS: MAGNESIUM OXIDE 400 MG TAB PO SCH (09:04)
[2017-11-05] MEDS: IPRATROPIUM BROMIDE/ALBUTEROL respimat INH INH SCH ×4 (09:05→20:17)
[2017-11-05] MEDS: LORATADINE 10 MG TAB PO SCH (09:05)
[2017-11-05] MEDS: CHOLESTYRAMINE LIGHT 4 GM PKT PO SCH (09:06)
[2017-11-05] MEDS: INSULIN ASPART 100 UNITS/ML 3 ML PEN SC SCH ×4 (09:13→21:11)
[2017-11-05] MEDS ORDERED: TPN/PPN CONSULT PHARMACY PRN (10:00)
--- NOTE | 2017-11-05 10:39 | Progress Note ---
Progress Note Date of Service Nov 05, 2017. Progress Note ID Consult Dictated #[id number] A/P: 1. Abd wall cellulitis 2. Intra-abd collection 3. Leukocytosis -Continue abx, follow response, follow blood cultures -thank you
[2017-11-05] MEDS: OCTREOTIDE ACETATE 100 MCG/ML VIAL SQ SCH ×3 (11:05→22:15)
--- NOTE | 2017-11-05 11:10 | INFECT. DISEASE CONSULTATION ---
DATE OF CONSULTATION: 11/05/2017 HISTORY OF PRESENT ILLNESS: This is a 51-year-old female who was admitted to the hospital with an abdominal wall cellulitis. She recently underwent colon resection with ostomy on the 18 of October due to finding of a malignancy. She was doing well at home, but she states that her ostomy was placed at a roll in her skin and she is unable to keep her ostomy bag sealed to the skin and has had significant leaking and drainage at home. She was found to have significant erythema and cellulitis in the area and she was subsequently started on antibiotics. She is currently on vancomycin and Zosyn and is tolerating her antibiotics well. She states she is due to have a PICC line. Blood cultures were obtained and are pending. She initially had leukocytosis of 14. In the ER, this has improved to 11. She did undergo a CAT scan of the abdomen and pelvis, which did show a fluid collection that was rim enhancing in the area of the rectum. She is being followed by surgery. There is no plan for incision and drainage at this time as she is responding to antibiotics. She currently denies any fevers or chills. She does admit to some pain over the area. There is no bag in place at this time. All livan remain intact. She denies any cough, shortness of breath, nausea, or vomiting. Her remaining review of systems is unremarkable. PAST MEDICAL HISTORY: Significant for type 2 diabetes, morbid obesity, high cholesterol, GERD, history of hepatitis, hypertension, hypothyroidism, mitral regurg, obstructive sleep apnea, and a history of AFib. PAST SURGICAL HISTORY: Significant for carpal tunnel release, hysterectomy, tonsillectomy, adenoidectomy, tubal ligation, knee surgery in 2005, and a recent colectomy. FAMILY HISTORY: Noncontributory. SOCIAL HISTORY: Negative for tobacco use, alcohol use or drug use. ALLERGIES: SHE HAS ALLERGIES TO DAPTOMYCIN, CLINDAMYCIN AND SULFA. CURRENT MEDICATIONS: Include octreotide, Pepcid, fluconazole, Lasix, lisinopril, Claritin, magnesium, Toprol-XL, potassium, cholestyramine, Synthroid, vancomycin, Zosyn, Lipitor, Singulair, insulin, Lantus, Ativan, Combivent, Floranex, Tylenol, Maalox, milk of magnesia, Zofran, and morphine. PHYSICAL EXAMINATION: VITAL SIGNS: She is afebrile, pulse 90, respiratory rate 18, blood pressure 106/64, and oxygen saturation is 98% on room air. GENERAL: She is awake, alert and oriented x3. HEENT: Mucous membranes are moist. Dentition is poor. Extraocular muscles are intact. HEART: Regular. LUNGS: Clear. ABDOMEN: Does show erythema over the right lower quadrant in the area of her ostomy. [place] are intact. The incisions are healed. EXTREMITIES: There is no lower extremity edema. LABORATORY STUDIES: CBC today reveals a white blood cell count of 11.5, hemoglobin 11, and platelets are 485. Chemistry panel reveals a sodium of 137, potassium 4.0, chloride 103, bicarbonate 27, BUN 10, creatinine 0.8, and glucose 113. LFTs are normal on admission. Urinalysis has 5-10 WBCs and no bacteria. Flu swab was negative. Blood cultures are pending. CT of the abdomen and pelvis again showed a rim enhancing collection in the presacral space, measuring 3.3 cm immediately posterior to anastomosis. ASSESSMENT AND PLAN: Abdominal wall cellulitis and intra-abdominal collection. She will remain on her current antibiotics pending the blood culture results. She is for PICC line and TPN today. She did discuss potential for reversal prior to discharge and this will likely help her with healing of cellulitis as well. We will follow along with you. Thank you for this consultation.
[2017-11-05 11:51] VITALS: Ht 152.4 cm; Wt 94.0 kg
--- NOTE | 2017-11-05 14:00 | DIAGNOSTIC IMAGING REPORT ---
CHEST ONE VIEW PORTABLE HISTORY: 51 years-old Female RIGHT UPPER ARM PICC PLACEMENT NO BULLSEYE WITH VPS, A-FIB status post placement of a right-sided PICC COMPARISON: Chest radiograph 11/04/2017 and 10/22/2017 TECHNIQUE: Portable AP view of the chest FINDINGS: Cardiac silhouette is again enlarged, unchanged. Right-sided PICC has been placed with distal tip terminating in the region of the superior cavoatrial junction. Mild pulmonary vascular congestion without overt pulmonary edema. No pneumothorax, or pleural effusion. Ill-defined opacity of the medial right lung base again noted. Bones of the chest appear grossly intact. IMPRESSION: 1. Status post placement of a right-sided PICC with distal tip terminating within the expected region of the superior cavoatrial junction. No postprocedural pneumothorax. 2. Cardiomegaly. The above report was generated using voice recognition software. It may contain grammatical, syntax or spelling errors. Electronically signed by: Jayjay Crowder M.D. 11/05/2017 1:59 PM Dictated Date/Time: 11/05/2017 1:55 PM
[2017-11-05] MEDS: MAGNESIUM SULFATE 1GM / D5W 1 GM in PREMIXED IN D5W 100 ML IV SCH ×2 (14:43→16:19)
[2017-11-05] MEDS ORDERED: DEXTROSE 10% 1,000 ML IV PRN (16:00)
[2017-11-05] MEDS ORDERED: CUSTOM CENTRAL PN 1 BAG IV SCH (16:00)
--- NOTE | 2017-11-05 16:05 | Pharmacy Progress Note ---
Parenteral Nutrition Consult Date of Service Nov 05, 2017. Scope Pharmacy has been consulted to manage parenteral nutrition orders and order appropriate labs. As part of the Nutrition Support Team guidelines, pharmacy will work in conjunction with dietary when determining the patients caloric needs. Subjective The patient is a 51 year old female admitted on Nov 04, 2017 at 19:38 for Intra- Abdominal Abscess. Patient is to receive parenteral nutrition for increased ileostomy output s/p colon resection. Pertinent PMH: Diabetes Objective Height (Feet): 5 Height (Inches): 0.00 Weight (Kilograms): 91.300 Diet: Clear Liquid Vascular Access: PICC - confirmed by CXR today Intake & Output (Last 72 Hr): 11/04/17 11/05/17 11/06/17 08:00 08:00 08:00 Intake Total 539 ml 1035 ml Output Total 450 ml 375 ml Balance 89 ml 660 ml Laboratory Data (Last 24 Hr): Test 11/05/17 07:25 Blood Urea Nitrogen 10 mg/dl (7-18) Calcium Level 8.6 mg/dl (8.5-10.1) Carbon Dioxide Level 27 mmol/L (21-32) Chloride Level 103 mmol/L (98-107) Creatinine 0.82 mg/dl (0.60-1.20) Magnesium Level 1.5 mg/dl (1.8-2.4) Phosphorus Level 3.7 mg/dl (2.5-4.9) Potassium Level 4.0 mmol/L (3.5-5.1) Random Glucose 113 mg/dl (70-99) Sodium Level 137 mmol/L (136-145) Nutrition Assessment Please refer to the Notes section of the EMR for the most recent campground hand note. Assessment Macronutrients * Following nutrition's recommendations for day #1 * Appropriate to start dextrose on the lower side with history of diabetes and recent reduced po intake Micronutrients * Electrolytes are all WNL, except for magnesium - spoke with Dr. Gloria for IV Mag supplementation * Will add 10 units (0.1 units/gm dextrose) of insulin to the bag and titrate as necessary Volume * NSS currently infusing at 100 cc/hr. Dr. Faizan alejo w/ d/c of fluids when TPN starts. Volume of TPN, as per Dr. Gloria, for now to be 2400 mL/day (~26 mL /kg/day). Plan For day 1 of PN administration, the following will be ordered: Macronutrients Amino acids 120 grams/day Dextrose 100 grams/day Lipids 50 grams/day Micronutrients Combined electrolytes 20 mL - contains 35 mEq Na, 20 meq K, 4.5 mEq Ca, 5 mEq Mg , 35 mEq Cl, 29.5 mEq acetate per 20 mL Sodium phosphate 21 MMol Multivitamins 10 mL Trace Elements 1 mL Additional additives: Regular insulin 10 units Total volume 2400 mL to be infused over 24 hrs will provide 1320 kcal/day Labs to be ordered per PN order protocol Pharmacy will follow and adjust parenteral nutrition orders on a daily basis. Thank you.
[2017-11-05 16:10] VITALS: BP 95/75; PULSE 90; TEMP 36.5; O2SAT 95
[2017-11-05] MEDS: MONTELUKAST SOD 10 MG TAB PO SCH (20:17)
[2017-11-05] MEDS: ATORVASTATIN 20 MG TAB PO SCH (20:17)
[2017-11-05] MEDS: INSULIN GLARGINE SOLOSTAR 100 UNITS/ML 3 ML PEN SC SCH (21:10)
[2017-11-05 23:11] VITALS: BP 93/67; PULSE 91; TEMP 36.5; O2SAT 95
[2017-11-05 23:17] VITALS: PULSE 91; O2SAT 96
[2017-11-06] MEDS ORDERED: VANCOMYCIN TROUGH ONE (01:30)
[2017-11-06] MEDS: VANCOMYCIN IV 1,250 MG in SODIUM CHLORIDE 0.9% 250ML 250 ML IV SCH (02:02)
[2017-11-06] MEDS: PIPERACILL/TAZOBAC IV 4.5 GM in DEXTROSE 5% 100ML 100 ML IV SCH ×3 (05:23→21:11)
[2017-11-06] MEDS: OCTREOTIDE ACETATE 100 MCG/ML VIAL SQ SCH ×3 (05:47→21:11)
[2017-11-06 05:53] LABS: HEMATOCRIT 33.2 % (37-47); HEMOGLOBIN 10.6 g/dL (12.0-16.0); MEAN CORPUSCULAR HEMOGLOBIN 26.2 pg (25-34); MEAN CORPUSCULAR HGB CONC 31.9 g/dl (32-36); MEAN PLATELET VOLUME 9.3 fL (7.4-10.4); PLATELET COUNT 438 K/uL (130-400); RED CELL DISTRIBUTION WIDTH CV 15.7 % (11.5-14.5); RED CELL DISTRIBUTION WIDTH SD 46.8 fL (36.4-46.3); WHITE BLOOD COUNT 9.49 K/uL (4.8-10.8)
[2017-11-06 06:31] LABS: CALCIUM 8.4 mg/dl (8.5-10.1); CREATININE 0.71 mg/dl (0.60-1.20); POTASSIUM 4.2 mmol/L (3.5-5.1)
[2017-11-06] MEDS: LEVOTHYROXINE 200 MCG TAB PO SCH (06:34)
[2017-11-06] MEDS: MoRPHine SULFATE 4 MG/ML 1 ML CARP\\VIAL IV PRN (06:38)
[2017-11-06 06:42] LABS: PHOSPHORUS 3.2 mg/dl (2.5-4.9)
[2017-11-06] MEDS: LORATADINE 10 MG TAB PO SCH (07:30)
[2017-11-06] MEDS: METOPROLOL SUCC 50MG EXT REL TAB PO SCH (07:30)
[2017-11-06] MEDS: LACTOBACILLUS ACIDOPHILUS (FLORANEX) TAB PO SCH ×3 (07:30→21:10)
[2017-11-06] MEDS: MAGNESIUM OXIDE 400 MG TAB PO SCH (07:31)
[2017-11-06] MEDS: FLUCONAZOLE 100 MG TAB PO SCH (07:31)
[2017-11-06] MEDS: CHOLESTYRAMINE LIGHT 4 GM PKT PO SCH (07:31)
[2017-11-06] MEDS: POTASSIUM CHLORIDE 10 MEQ TABCR PO SCH (07:31)
[2017-11-06] MEDS: FUROSEMIDE 20 MG TAB PO SCH (07:31)
[2017-11-06] MEDS: FAMOTIDINE 20 MG TAB PO SCH (07:31)
[2017-11-06] MEDS: IPRATROPIUM BROMIDE/ALBUTEROL respimat INH INH SCH ×4 (07:31→21:09)
[2017-11-06] MEDS: LISINOPRIL 5 MG TAB PO SCH (07:32)
--- NOTE | 2017-11-06 07:43 | Surgery Progress Note ---
Surgery Progress Note Date of Service Nov 06, 2017. Subjective + complaints (abd sore) Objective Vital Signs: Date Time Temp Pulse Resp B/P (MAP) Pulse Ox O2 Delivery O2 Flow Rate FiO2 11/06/17 00:00 CPAP 11/05/17 23:17 91 96 21 11/05/17 23:11 36.5 91 19 93/67 (76) 95 CPAP 11/05/17 20:00 Room Air 11/05/17 16:10 36.5 90 18 95/75 (82) 95 Room Air 11/05/17 15:55 Room Air 11/05/17 09:00 98 Room Air 11/05/17 08:27 36.6 98 18 106/64 (78) 98 Room Air Abdomen: + pertinent finding (minimal ostomy output, some bleeding from area) Laboratory Results: Results Past 24 Hours Test 11/05/17 12:04 11/05/17 17:02 11/05/17 20:43 11/06/17 01:41 Range/Units Bedside Glucose 191 156 182 70-90 mg/dl Vancomycin Level Trough 20.0 SEE COMMENT mcg/ml Test 11/06/17 05:09 Range/Units White Blood Count 9.49 4.8-10.8 K/uL Red Blood Count 4.05 4.2-5.4 M/uL Hemoglobin 10.6 12.0-16.0 g/dL Hematocrit 33.2 37-47 % Mean Corpuscular Volume 82.0 80-100 fL Mean Corpuscular Hemoglobin 26.2 25-34 pg Mean Corpuscular Hemoglobin Concent 31.9 32-36 g/dl RDW Standard Deviation 46.8 36.4-46.3 fL RDW Coefficient of Variation 15.7 11.5-14.5 % Platelet Count 438 130-400 K/uL Mean Platelet Volume 9.3 7.4-10.4 fL Sodium Level 134 136-145 mmol/L Potassium Level 4.2 3.5-5.1 mmol/L Chloride Level 103 98-107 mmol/L Carbon Dioxide Level 27 21-32 mmol/L Anion Gap 4.0 3-11 mmol/L Blood Urea Nitrogen 14 7-18 mg/dl Creatinine 0.71 0.60-1.20 mg/dl Est Creatinine Clear Calc Drug Dose 92.5 ml/min Estimated GFR () 112.7 Estimated GFR (Non- 97.2 BUN/Creatinine Ratio 20.0 10-20 Random Glucose 157 70-99 mg/dl Calcium Level 8.4 8.5-10.1 mg/dl Phosphorus Level 3.2 2.5-4.9 mg/dl Magnesium Level 2.0 1.8-2.4 mg/dl Prealbumin 11.5 20-40 mg/dl Triglycerides Level 118 0-150 mg/dl Assessment & Plan loop ileostomy for LAR Pelvic fluid collection WBC improved ileostomy output decreased with TPN/sandostatin ileostomy takedown this admission BE possibly tomorrow
[2017-11-06] MEDS: INSULIN ASPART 100 UNITS/ML 3 ML PEN SC SCH ×4 (07:55→21:08)
[2017-11-06 07:59] VITALS: BP 106/70; PULSE 90; TEMP 36.7; O2SAT 92
--- NOTE | 2017-11-06 08:25 | Pharmacy Progress Note ---
Pharmacy Abx Dose Short Note Date of Service Nov 06, 2017. Assessment & Plan Assessment 51 year old female receiving vancomycin and Zosyn for treatment of abdominal wall cellulitis and intra-abdominal collection s/p colon resection Day # 3 of antimicrobial therapy. Blood cultures - no growth to date SCr remains stable Plan Vancomycin * Trough level of 20 mcg/mL is therapeutic but on upper end of goal range and may continue to accumulate * Reduce dose slightly to 1250 mg IV every 14 hours * Goal trough level for cellulitis/intra-abdominal infection (without culture data): 15 to 20 mcg/mL * Trough level ordered for: 11/08/17 prior to the 10 am dose Pharmacy will continue to follow and will adjust dose/frequency as necessary. Thank you.
[2017-11-06] MEDS: ACETAMINOPHEN 325 MG TAB PO PRN ×2 (08:27→16:52)
--- NOTE | 2017-11-06 08:43 | Hospitalist Progress Note ---
Hospitalist Progress Note Date of Service Nov 06, 2017. Subjective Pt evaluation today including: conversation w/ patient, physical exam, chart review, lab review, review of studies Pain: Mild abdominal pain PO Intake: NPO Voiding: steinberg catheter in place The patient was seen and examined this morning. Pt reports doing ok today. She is having abdominal pain and states " it was a huge bloody mess yesterday" when asked about her stomach. Pt notes a steinberg catheter was placed to prevent the need from getting up and altering the wound. Her livan from the abdominal incision were taken out yesterday and only has steri-strips in place. She cannot tell if the redness looks better as she cannot really see it herself. She denies having and fevers, but continues to report feeling hot then chilled intermittently, and is currently sweating. Discussion was held regarding her prolonged length of time anticipated here in the hospital: She has just started TPN, and general surgery plans to do iliostomy reversal when nutritional status is improved, then she will need recovery post-operatively. She understands this will likely take time to recover. She reports being bored here often, and is asking for word-search or [id number] puzzle to entertain herself. Additional Comments: Constitutional: No fever, + sweats or chills intermittently Eyes: No diplopia, no worsening or blurred vision ENT: normal hearing, no trouble swallowing, now NPO Respiratory: No cough, sputum, dyspnea at rest or on exertion Cardiovascular: No chest pain, tightness or palpitations Abdomen: See above. Musculoskeletal: No joint pain, calf pain, swelling Neurologic: No weakness, numbness/tingling, or balance problems Psychiatric: No anxiety or depression Skin: No rash or itch Objective Vital Signs Date Time Temp Pulse Resp B/P (MAP) Pulse Ox O2 Delivery O2 Flow Rate FiO2 11/06/17 07:59 36.7 90 16 106/70 (82) 92 Room Air 11/06/17 00:00 CPAP 11/05/17 23:17 91 96 21 11/05/17 23:11 36.5 91 19 93/67 (76) 95 CPAP 11/05/17 20:00 Room Air 11/05/17 16:10 36.5 90 18 95/75 (82) 95 Room Air 11/05/17 15:55 Room Air 11/05/17 09:00 98 Room Air Physical Exam Notes: General Appearance: WD/WN, no apparent distress, + obese (morbidly) Eyes: PERRL, EOMI ENT: hearing grossly normal, pharynx normal, + pertinent finding (MM dry) Neck: supple, no JVD Respiratory/Chest: chest non-tender, lungs clear, no respiratory distress, no accessory muscle use, + pertinent finding (on RA) Cardiovascular: + systolic murmur, + irregularly irregular (rate controlled) Abdomen: + pertinent finding (Obese, + erythematous pannus, also involving the folds, + RLQ abdominal ostomy without bag on, semi-packed 4x4 gauze, + small necrotic 1x1cm lesion in pannus fold, livan removed from midline incision with steri-strips overlying it, edges are not well healed yet, +slight serosanguineous drainage from midline incision, no purulent or bloody drainage. +tenderness with minimal palpation.) Extremities: +PICC line RUE, non-tender, no pedal edema, no calf tenderness Neurologic/Psychiatric: alert, slightly depressed affect, oriented x 3 Skin: normal color, warm/dry Laboratory Results Last 24 Hours Test 11/05/17 12:04 11/05/17 17:02 11/05/17 20:43 11/06/17 01:41 Bedside Glucose 191 mg/dl 156 mg/dl 182 mg/dl Vancomycin Level Trough 20.0 mcg/ml Test 11/06/17 05:09 11/06/17 07:51 White Blood Count 9.49 K/uL Red Blood Count 4.05 M/uL Hemoglobin 10.6 g/dL Hematocrit 33.2 % Mean Corpuscular Volume 82.0 fL Mean Corpuscular Hemoglobin 26.2 pg Mean Corpuscular Hemoglobin Concent 31.9 g/dl RDW Standard Deviation 46.8 fL RDW Coefficient of Variation 15.7 % Platelet Count 438 K/uL Mean Platelet Volume 9.3 fL Sodium Level 134 mmol/L Potassium Level 4.2 mmol/L Chloride Level 103 mmol/L Carbon Dioxide Level 27 mmol/L Anion Gap 4.0 mmol/L Blood Urea Nitrogen 14 mg/dl Creatinine 0.71 mg/dl Est Creatinine Clear Calc Drug Dose 92.5 ml/min Estimated GFR () 112.7 Estimated GFR (Non- 97.2 BUN/Creatinine Ratio 20.0 Random Glucose 157 mg/dl Calcium Level 8.4 mg/dl Phosphorus Level 3.2 mg/dl Magnesium Level 2.0 mg/dl Prealbumin 11.5 mg/dl Triglycerides Level 118 mg/dl Bedside Glucose 179 mg/dl Assessment and Plan 51 yo female here with the surgical site infection of abdominal cellulitis with concern for possible abscess Severe Abdominal wall cellulitis, possible abscess Severe Protein Calorie Malnutrition - ID on board- continue on vancomycin and Zosyn (started on 11/03), follow wound cultures. Was on cipro/flagyl prior to admission. - Gen surgical consulted- keeping on clear liquid diet, plans for ileostomy reversal during this admission but they would like cellulitis to be more improved - ileostomy very difficult to maintain bag in correct position due to body habitus. The patient also needs to have improved nutritional status prior to surgical procedure. - PICC line inserted on 11/05, TPN started 11/05 per dietary/pharmacy recommendations - Wound consulted for ostomy site care - hold anticoagulation Eliquis - NPO/sips clears; start sandostatin to try and decrease ileostomy output. - Livan out of midline abdominal incision - steri-strips in place with serosanguineous drainage from the wound, monitor for wound dehiscence. Atrial fibrillation - maintained on her metoprolol succ 50 mg daily - Holding Eliquis (last taken 11/04) HLD - Lipitor will be continued Hypertension - cont lisinopril 5 mg daily DM II - She's been on various diabetic regimens over the last few months - currently on Tojeo at 15 U will convert this to Lantus 15 U QPM and ISS with accuchecks achs - will adjust to half dose if surgical procedure planned Asthma - Cont Combivent and Singulair Reverse hypothyroidism - she appears clinically euthyroid and she is on a significantly high dose of Synthroid in the chart documented at 1200 g a day obstructive sleep apnea - supply her CPAP and asked to bring her home unit in Her morbid obesity directly impacts both her wound care her healing and her sleep apnea DVT prevention : SCDs, no chemical anticoagulation at this time. CODE STATUS: FULL Dispostion: Anticipated prolonged hospital course due to severity of abdominal cellulitis, needs for improved nutritional status, planned iliostomy reversal and post-op healing. From home, will need CM to assist with dc planning, was from [facility]. .
--- NOTE | 2017-11-06 14:22 | Progress Note ---
Subjective Date of Service: Nov 06, 2017. Subjective Pt evaluation today including: conversation w/ patient, conversation w/ family , physical exam, chart review, lab review pt seen in followup, family at bedside. doing well. no complaints. s/p picc, now on tpn, tolerating well. continue on emperic abx, tolerating well. no f/c. wbc nml today. blood cultures remain negative. states abd wall pain/erythema improved, awaiting reversal of ostomy. all remaining ros reviewed and are negative. Problem List Medical Problems: (1) Abdominal pain Status: Acute (2) Abscess of labia majora Status: Acute (3) Acute vomiting Status: Acute (4) Cellulitis of labia majora Status: Acute (5) Hyperglycemia Status: Acute (6) Hyperglycemia due to type 2 diabetes mellitus Status: Acute (7) Hypertension Status: Acute (8) Low back pain Status: Acute (9) Morbid obesity Status: Acute (10) New onset a-fib Status: Acute (11) Pulmonary nodule Status: Acute (12) Rectal bleed Status: Acute (13) Rectal bleeding Status: Acute (14) Rectal cancer Status: Acute (15) Sepsis Status: Acute (16) Shortness of breath Status: Acute (17) Skin abscess Status: Acute (18) Urinary tract infection Status: Acute Objective Vital Signs Date Time Temp Pulse Resp B/P (MAP) Pulse Ox O2 Delivery O2 Flow Rate FiO2 11/06/17 07:59 36.7 90 16 106/70 (82) 92 Room Air 11/06/17 00:00 CPAP 11/05/17 23:17 91 96 21 11/05/17 23:11 36.5 91 19 93/67 (76) 95 CPAP 11/05/17 20:00 Room Air 11/05/17 16:10 36.5 90 18 95/75 (82) 95 Room Air 11/05/17 15:55 Room Air Physical Exam General Appearance: WD/WN, no apparent distress Eyes: normal inspection, EOMI Neck: supple Respiratory/Chest: normal breath sounds, no respiratory distress Cardiovascular: regular rate, rhythm, no edema Abdomen: soft Extremities: non-tender, no pedal edema Neurologic/Psychiatric: alert, oriented x 3 Skin: normal color Comments: abd wall erythema improved today. non tender. no warmth. Laboratory Results Item Value Date Time Blood Culture - Preliminary Resulted 11/04/17 1404 Blood NO GROWTH TO DATE. Blood Culture - Preliminary Resulted 11/04/17 1318 Blood NO GROWTH TO DATE. Last 24 Hours Test 11/05/17 17:02 11/05/17 20:43 11/06/17 01:41 11/06/17 05:09 Bedside Glucose 156 mg/dl 182 mg/dl Vancomycin Level Trough 20.0 mcg/ml White Blood Count 9.49 K/uL Red Blood Count 4.05 M/uL Hemoglobin 10.6 g/dL Hematocrit 33.2 % Mean Corpuscular Volume 82.0 fL Mean Corpuscular Hemoglobin 26.2 pg Mean Corpuscular Hemoglobin Concent 31.9 g/dl RDW Standard Deviation 46.8 fL RDW Coefficient of Variation 15.7 % Platelet Count 438 K/uL Mean Platelet Volume 9.3 fL Sodium Level 134 mmol/L Potassium Level 4.2 mmol/L Chloride Level 103 mmol/L Carbon Dioxide Level 27 mmol/L Anion Gap 4.0 mmol/L Blood Urea Nitrogen 14 mg/dl Creatinine 0.71 mg/dl Est Creatinine Clear Calc Drug Dose 92.5 ml/min Estimated GFR () 112.7 Estimated GFR (Non- 97.2 BUN/Creatinine Ratio 20.0 Random Glucose 157 mg/dl Calcium Level 8.4 mg/dl Phosphorus Level 3.2 mg/dl Magnesium Level 2.0 mg/dl Prealbumin 11.5 mg/dl Triglycerides Level 118 mg/dl Test 11/06/17 07:51 11/06/17 11:41 Bedside Glucose 179 mg/dl 179 mg/dl Assessment and Plan (1) Panniculitis Assessment & Plan: continue abx, follow response, blood cultures negative.
[2017-11-06 15:21] VITALS: BP 90/68; PULSE 80; TEMP 36.8; O2SAT 95
[2017-11-06] MEDS ORDERED: CUSTOM CENTRAL PN 1 BAG IV SCH (16:00)
[2017-11-06] MEDS ORDERED: VANCOMYCIN IV 1,250 MG in SODIUM CHLORIDE 0.9% 250ML 250 ML IV SCH (16:00)
[2017-11-06 17:55] VITALS: BP 122/75; PULSE 82; TEMP 36.8; O2SAT 97
[2017-11-06] MEDS ORDERED: DiphenhydrAMINE HCL 50 MG/ML VIAL IV STA (18:26)
[2017-11-06] MEDS ORDERED: NURSING VERBAL MED ORDER ONE (18:30)
[2017-11-06] MEDS ORDERED: DiphenhydrAMINE HCL 50 MG/ML VIAL ONE (18:33)
[2017-11-06] MEDS ORDERED: DiphenhydrAMINE HCL 50 MG/ML VIAL IV ONE (18:45)
[2017-11-06] MEDS: INSULIN GLARGINE SOLOSTAR 100 UNITS/ML 3 ML PEN SC SCH (21:08)
[2017-11-06] MEDS: ATORVASTATIN 20 MG TAB PO SCH (21:11)
[2017-11-06] MEDS: MONTELUKAST SOD 10 MG TAB PO SCH (21:11)
--- NOTE | 2017-11-06 22:09 | SURGICAL CONSULTATION ---
DATE OF CONSULTATION: 11/06/2017 REASON FOR CONSULTATION: Left lower lobe pulmonary nodule. HISTORY OF PRESENT ILLNESS: This is a 51-year-old obese female who underwent a low anterior resection by Dr. John Rogers on 10/18/2017. He attempted a laparoscopic case, had to convert to a laparotomy for her low anterior resection. She was presented today at our multidisciplinary cancer conference. Her margins were negative. Eight lymph nodes were negative, but there was an intraperitoneal implant and serosal invasion. The reason I have been consulted is because this patient has a left lower lobe nodule. Due to her obesity, she has also had issues with her ileostomy retracting and causing a local cellulitis. I was asked to evaluate her from a thoracic surgery standpoint. The consensus of our group today at the multidisciplinary cancer conference was that this new nodule which is suspicious in appearance on CT should be evaluated with a tissue diagnosis. It is not in an area which can be needled as it is far down along the diaphragm and is small as well as intraparenchymal. It is also too peripheral for a navigation bronchoscopy and biopsy. PAST MEDICAL HISTORY: 1. Obesity. 2. Colon carcinoma. 3. Diabetes mellitus. 4. Gastroesophageal reflux disease. 5. Dyslipidemia. 6. Hepatitis. 7. Hypothyroidism. 8. Hypertension. 9. Moderate mitral regurgitation. 10. Chronic obstructive sleep apnea. 11. Atrial fibrillation. PAST SURGICAL HISTORY: 1. 2, para 2. 2. Hysterectomy. 3. Carpal tunnel release. 4. Tonsillectomy and adenoidectomy. 5. Bilateral tubal ligation. 6. History of left total knee arthroplasty in 2005. MEDICATIONS AT HOME: 1. Eliquis for atrial fibrillation. 2. Lipitor. 3. Cholestyramine. 4. Potassium supplements. 5. Montelukast. 6. Metronidazole. 7. Cipro. 8. Pepcid. 9. Diflucan. 10. Lasix. 11. Breo Ellipta. 12. Combivent inhaler. 13. Toujeo Solostar insulin. 14. NovoLog insulin. 15. Lactinex. 16. Synthroid. 17. Lisinopril. 18. Magnesium supplements. 19. Claritin. 20. Toprol-XL. ALLERGIES: 1. DAPTOMYCIN. 2. CLINDAMYCIN. 3. SULFA. 4. Dulaglutide. SOCIAL HISTORY: The patient has worked at [employer] for many years as well as [employer]. She has never smoked cigarettes. She lives at home with her . FAMILY MEDICAL HISTORY: The patient's 2 children are healthy. She has 3 grandchildren. One is healthy but the 2 other childrens are young, 7 and 5 and suffer from ADHD and also the 5-year-old has problems with apparent congenital problem and has required a surgery in his neck. It is unclear to me what this is unless it is a Budd-Chiari type malformation requiring opening. He had surgery at [facility] 6 months ago. REVIEW OF SYSTEMS: The patient has developed cellulitis type symptoms in the right side of her abdomen where the ileostomy is in place. Her gut is working. Her ileostomy is working. She has had problems with abscesses in her groin in the past. She is morbidly obese. She has had no visual or hearing problems. She does have a wound breakdown around her right-sided ileostomy. She has erythema with obvious cellulitis. Her surgical incision is fairly clean, although has some mild erythema. There is no fluctuance. She actually has pretty good bowel sounds. She denies any muscle pain and has no peripheral edema. She denies any neurologic symptoms such as amaurosis fugax. She denies any palpitations or chest pain. She denies any respiratory symptoms such as a productive cough. PHYSICAL EXAMINATION: GENERAL: This is a 5 feet, 202 pound white female who is awake, alert and in good spirits. HEENT: Her extraocular movements are intact. Pupils are equally round and reactive. Sclerae are bit pale. She has no nasolabial flattening. Tongue is midline. She is edentulous. I detect no oral mucosal lesions and her mucosa is moist. NECK: Thick, but supple. CHEST: She has a mild rash along her upper chest, but it is more erythema, although she is complaining of some pruritus. LUNGS: She has decreased breath sounds at her bases but is moving air well without wheezing. HEART: Her heart rates in the 80s and is regular at about 105 beats minute (it should be noted that her electrocardiogram from 48 hours ago shows atrial flutter with a ventricular response of about 105). ABDOMEN: Obese but as I stated, she has good bowel sounds. She does have erythema around the right side of the ileostomy bag and it is difficult to get a seal as she has still leaking around this. Her lower extremities had no edema whatsoever. She has palpable pulses. She has no joint effusions. NEUROLOGICAL: She is completely awake, alert and oriented. ASSESSMENT AND PLAN: Left lower lobe nodule which is quite concerning. We discussed her in the multidisciplinary cancer conference and I feel that a thoracoscopic biopsy is going to be required. It should be noted that this was not present a few months ago. This mass has grown. There is a very small 4 mm node in the right upper lobe which is unchanged and not nearly as concerning. I will coordinate this with Dr. Rogers, however, I do not want to do the two procedures at the same time. We are also under some time constraints as medical oncologist pointed out that further delays in her chemotherapy has been shown to have adverse effects on survival. I had a very long, detailed discussion with the patient, her and her daughter. ALEXA
[2017-11-06 22:56] VITALS: PULSE 82; O2SAT 96
[2017-11-06 23:06] VITALS: BP 97/65; PULSE 82; TEMP 36.8; O2SAT 94
[2017-11-07] MEDS: MoRPHine SULFATE 4 MG/ML 1 ML CARP\\VIAL IV PRN ×2 (00:33→08:05)
[2017-11-07 05:32] LABS: HEMATOCRIT 33.1 % (37-47); HEMOGLOBIN 10.3 g/dL (12.0-16.0); MEAN CELL VOLUME 80.5 fL (80-100); MEAN CORPUSCULAR HEMOGLOBIN 25.1 pg (25-34); MEAN CORPUSCULAR HGB CONC 31.1 g/dl (32-36); MEAN PLATELET VOLUME 9.2 fL (7.4-10.4); PLATELET COUNT 417 K/uL (130-400); RED CELL DISTRIBUTION WIDTH CV 15.3 % (11.5-14.5); WHITE BLOOD COUNT 7.96 K/uL (4.8-10.8)
[2017-11-07] MEDS: OCTREOTIDE ACETATE 100 MCG/ML VIAL SQ SCH ×3 (05:48→21:57)
[2017-11-07] MEDS: PIPERACILL/TAZOBAC IV 4.5 GM in DEXTROSE 5% 100ML 100 ML IV SCH ×3 (05:48→20:48)
[2017-11-07] MEDS: LEVOTHYROXINE 200 MCG TAB PO SCH (05:51)
[2017-11-07 05:58] LABS: CALCIUM 8.3 mg/dl (8.5-10.1); CREATININE 0.63 mg/dl (0.60-1.20); PHOSPHORUS 2.9 mg/dl (2.5-4.9)
[2017-11-07] MEDS: CHOLESTYRAMINE LIGHT 4 GM PKT PO SCH (07:53)
[2017-11-07] MEDS: LACTOBACILLUS ACIDOPHILUS (FLORANEX) TAB PO SCH ×3 (07:53→19:50)
[2017-11-07] MEDS: FUROSEMIDE 20 MG TAB PO SCH (07:54)
[2017-11-07] MEDS: FLUCONAZOLE 100 MG TAB PO SCH (07:54)
[2017-11-07] MEDS: LORATADINE 10 MG TAB PO SCH (07:54)
[2017-11-07] MEDS: FAMOTIDINE 20 MG TAB PO SCH (07:54)
[2017-11-07] MEDS: MAGNESIUM OXIDE 400 MG TAB PO SCH (07:54)
[2017-11-07] MEDS: POTASSIUM CHLORIDE 10 MEQ TABCR PO SCH (07:55)
[2017-11-07] MEDS: IPRATROPIUM BROMIDE/ALBUTEROL respimat INH INH SCH ×4 (07:55→20:48)
[2017-11-07 07:58] VITALS: BP 98/68; PULSE 91; TEMP 36.8; O2SAT 91
[2017-11-07 08:00] VITALS: O2SAT 92
[2017-11-07] MEDS: METOPROLOL SUCC 50MG EXT REL TAB PO SCH (08:00)
[2017-11-07] MEDS: LISINOPRIL 5 MG TAB PO SCH (08:05)
[2017-11-07] MEDS: INSULIN ASPART 100 UNITS/ML 3 ML PEN SC SCH ×4 (08:16→21:04)
[2017-11-07] MEDS ORDERED: SODIUM PHOSPHATE INJ 15 MMOL in SODIUM CHLORIDE 0.9% 250ML 250 ML IV ONE (09:00)
--- NOTE | 2017-11-07 09:55 | DIAGNOSTIC IMAGING REPORT ---
BARIUM ENEMA CLINICAL HISTORY: 51 years-old Female presenting with s/p loop ileostomy for LAR, rectal cancer, intra-abdominal abscess. TECHNIQUE: Initial overhead abdominal radiograph was performed. Subsequently, a digital rectal examination was performed to ensure safe introduction of a rectal tube. The rectal tube was then placed, and the balloon partially inflated to secure placement. A standard water-soluble iodinated contrast enema was then performed using 480 mL of Gastroview administered via gravity drainage into the rectum. Multiple spot fluoroscopic images were obtained in left decubitus and supine positioning to record the evaluation. Finally, a postevacuation overhead radiograph was obtained, the rectal tube removed. COMPARISON: 11/04/2017. FINDINGS: Initial overhead abdominal radiograph demonstrates multiple suture lines in the region of the lower rectum. Nonobstructive bowel gas pattern. No gross pneumoperitoneum. Osseous structures with mild degenerative changes of the sacroiliac joints. Digital rectal exam resulted in mild patient discomfort but no mechanical obstruction. Subsequently, a rectal tube was gently introduced into the anus and lower rectum. The balloon was partially inflated to secure placement. At the level of the low anterior resection anastomosis, no evidence of stricture, holdup of contrast, or leakage. Contrast freely transited to the more proximal colon. Few scattered diverticula noted. Contrast transited to the level of the ileocecal valve. No contrast passed into the terminal ileum, therefore, no contrast was observed exiting the loop ileostomy in the right lower quadrant. Postevacuation radiographs demonstrated partial evacuation of contrast with decompressed distal descending and sigmoid colon. Again, no evidence of peritoneal spillage of contrast or obstruction. Finally, the rectal tube was removed. Fluoroscopy dosage (mGy): Not available. Fluoroscopy time: 1.3 minutes. Number of fluoroscopic spot images: 14. IMPRESSION: Postsurgical changes of low anterior resection with patent lower rectal anastomosis. No evidence of leak or holdup. Remaining colon grossly normal in appearance. No contrast passed proximal to the ileocecal valve, which is not unexpected for a competent IC valve. Electronically signed by: Riaz Blackwood M.D. 11/07/2017 9:54 AM Dictated Date/Time: 11/07/2017 9:43 AM
[2017-11-07] MEDS: MAGNESIUM SULFATE 1GM / D5W 1 GM in PREMIXED IN D5W 100 ML IV SCH ×2 (10:02→11:41)
--- NOTE | 2017-11-07 12:19 | Hospitalist Progress Note ---
Hospitalist Progress Note Date of Service Nov 07, 2017. Subjective Pt evaluation today including: conversation w/ patient, physical exam, chart review, lab review, review of studies Pain: Mild abdominal pain, improving PO Intake: NPO, on TPN Voiding: steinberg catheter in place The patient was seen and examined this morning. Pt reports her abdominal pain is slightly improved overall. She had a barium enema study completed and reports it leaked everywhere after it was given to her. She otherwise is doing well. Pt is tolerating TPN infusions. No abdominal bloating, nausea or vomiting. She is ambulating with assistance about the room for transferring to bed to chair ok but still feels a little weak. ROS: 6 point ROS reviewed and otherwise negative. Objective Vital Signs Date Time Temp Pulse Resp B/P (MAP) Pulse Ox O2 Delivery O2 Flow Rate FiO2 11/07/17 08:00 92 Room Air 11/07/17 07:58 36.8 91 18 98/68 (78) 91 Room Air 11/07/17 00:40 CPAP 11/06/17 23:06 36.8 82 18 97/65 (76) 94 Room Air 11/06/17 22:56 82 96 21 11/06/17 17:55 36.8 82 20 122/75 (91) 97 11/06/17 16:00 Room Air 11/06/17 15:21 36.8 80 22 90/68 (75) 95 Room Air Physical Exam Notes: General Appearance: WD/WN, no apparent distress, + obese (morbidly) Eyes: PERRL, EOMI ENT: hearing grossly normal, pharynx normal, + pertinent finding (MM dry) Neck: supple, no JVD Respiratory/Chest: chest non-tender, lungs clear, no respiratory distress, no accessory muscle use, + pertinent finding (on RA) Cardiovascular: + systolic murmur, + irregularly irregular (rate controlled) Abdomen: + pertinent finding (Obese, + erythematous pannus involving the folds is slightly improving, + RLQ abdominal ostomy without bag on, semi-packed 4x4 gauze, + small necrotic 1x1cm lesion in pannus fold, livan removed from midline incision with steri-strips overlying it, edges are not well healed yet, +slight serosanguineous drainage from midline incision, no purulent or bloody drainage. +tenderness with minimal palpation.) Extremities: +PICC line RUE, non-tender, no pedal edema, no calf tenderness Neurologic/Psychiatric: alert, normal affect, oriented x 3 Laboratory Results Last 24 Hours Test 11/06/17 16:42 11/06/17 20:30 11/07/17 05:17 11/07/17 07:21 Bedside Glucose 162 mg/dl 236 mg/dl 200 mg/dl White Blood Count 7.96 K/uL Red Blood Count 4.11 M/uL Hemoglobin 10.3 g/dL Hematocrit 33.1 % Mean Corpuscular Volume 80.5 fL Mean Corpuscular Hemoglobin 25.1 pg Mean Corpuscular Hemoglobin Concent 31.1 g/dl RDW Standard Deviation 45.0 fL RDW Coefficient of Variation 15.3 % Platelet Count 417 K/uL Mean Platelet Volume 9.2 fL Sodium Level 135 mmol/L Potassium Level 4.0 mmol/L Chloride Level 103 mmol/L Carbon Dioxide Level 29 mmol/L Anion Gap 3.0 mmol/L Blood Urea Nitrogen 23 mg/dl Creatinine 0.63 mg/dl Est Creatinine Clear Calc Drug Dose 104.2 ml/min Estimated GFR () 118.7 Estimated GFR (Non- 102.4 BUN/Creatinine Ratio 36.1 Random Glucose 179 mg/dl Calcium Level 8.3 mg/dl Phosphorus Level 2.9 mg/dl Magnesium Level 1.6 mg/dl Test 11/07/17 11:25 Bedside Glucose 224 mg/dl Assessment and Plan 51 yo female here with the surgical site infection of abdominal cellulitis with concern for possible abscess Severe Abdominal wall cellulitis, possible abscess Severe Protein Calorie Malnutrition - ID on board- - Last evening pt had diffuse rash develop about 30 minutes after initiation of vancomycin - so antibiotic was stopped and benadryl administered. Hold further vanc at this time. Strange clinical picture as she had been getting this med for 4 days and no other reaction. Will monitor off this and determine if still clinically improving. - Continue Zosyn (started on 11/03), follow wound cultures. Was on cipro/ flagyl prior to admission. - Gen surgical consulted- keeping on clear liquid diet, plans for ileostomy reversal during this admission but they would like cellulitis to be more improved - ileostomy very difficult to maintain bag in correct position due to body habitus. The patient also needs to have improved nutritional status prior to surgical procedure. - PICC line inserted on 11/05, TPN started 11/05 per dietary/pharmacy recs - Wound consulted for ostomy site care - hold Eliquis - NPO/sips clears; start sandostatin to try and decrease ileostomy output. - Livan out of midline abdominal incision - steri-strips in place with serosanguineous drainage from the wound, monitor for wound dehiscence. - Barium enema 11/07: normal Atrial fibrillation - maintained on her metoprolol succ 50 mg daily - Holding Eliquis (last taken 11/04) HLD - Lipitor will be continued Hypertension - cont lisinopril 5 mg daily DM II - She's been on various diabetic regimens over the last few months - currently on Tojeo at 15 U will convert this to Lantus 15 U QPM and ISS with accuchecks achs - will adjust to half dose if surgical procedure planned Asthma - Cont Combivent and Singulair Reverse hypothyroidism - she appears clinically euthyroid and she is on a significantly high dose of Synthroid in the chart documented at 1200 g a day obstructive sleep apnea - supply her CPAP and asked to bring her home unit in Her morbid obesity directly impacts both her wound care her healing and her sleep apnea DVT prevention : SCDs, no chemical anticoagulation at this time. CODE STATUS: FULL Dispostion: Anticipated prolonged hospital course due to severity of abdominal cellulitis, needs for improved nutritional status, planned ileostomy reversal and post-op healing. From home, will need CM to assist with dc planning, was from [facility].
--- NOTE | 2017-11-07 14:04 | Surgery Progress Note ---
Surgery Progress Note Date of Service Nov 07, 2017. Subjective less abdominal soreness today, less bleeding, some contrast output after BE Objective Vital Signs: Date Time Temp Pulse Resp B/P (MAP) Pulse Ox O2 Delivery O2 Flow Rate FiO2 11/07/17 08:00 92 Room Air 11/07/17 07:58 36.8 91 18 98/68 (78) 91 Room Air 11/07/17 00:40 CPAP 11/06/17 23:06 36.8 82 18 97/65 (76) 94 Room Air 11/06/17 22:56 82 96 21 11/06/17 17:55 36.8 82 20 122/75 (91) 97 11/06/17 16:00 Room Air 11/06/17 15:21 36.8 80 22 90/68 (75) 95 Room Air Abdomen: soft (erythema improving) Laboratory Results: Results Past 24 Hours Test 11/06/17 16:42 11/06/17 20:30 11/07/17 05:17 11/07/17 07:21 Range/Units Bedside Glucose 162 236 200 70-90 mg/dl White Blood Count 7.96 4.8-10.8 K/uL Red Blood Count 4.11 4.2-5.4 M/uL Hemoglobin 10.3 12.0-16.0 g/dL Hematocrit 33.1 37-47 % Mean Corpuscular Volume 80.5 80-100 fL Mean Corpuscular Hemoglobin 25.1 25-34 pg Mean Corpuscular Hemoglobin Concent 31.1 32-36 g/dl RDW Standard Deviation 45.0 36.4-46.3 fL RDW Coefficient of Variation 15.3 11.5-14.5 % Platelet Count 417 130-400 K/uL Mean Platelet Volume 9.2 7.4-10.4 fL Sodium Level 135 136-145 mmol/L Potassium Level 4.0 3.5-5.1 mmol/L Chloride Level 103 98-107 mmol/L Carbon Dioxide Level 29 21-32 mmol/L Anion Gap 3.0 3-11 mmol/L Blood Urea Nitrogen 23 7-18 mg/dl Creatinine 0.63 0.60-1.20 mg/dl Est Creatinine Clear Calc Drug Dose 104.2 ml/min Estimated GFR () 118.7 Estimated GFR (Non- 102.4 BUN/Creatinine Ratio 36.1 10-20 Random Glucose 179 70-99 mg/dl Calcium Level 8.3 8.5-10.1 mg/dl Phosphorus Level 2.9 2.5-4.9 mg/dl Magnesium Level 1.6 1.8-2.4 mg/dl Test 11/07/17 11:25 Range/Units Bedside Glucose 224 70-90 mg/dl Assessment & Plan loop ileostomy for LAR Pelvic fluid collection BE looks good planning for LLL biopsy tomorrow continue current treatment for ileostomy, probably reverse next week
--- NOTE | 2017-11-07 14:06 | Anesthesiology Progress Note ---
Anesthesia Progress Note Date of Service Nov 07, 2017. Progress Notes The patient is a 51 y/o female with a LLL nodule found on CT scheduled for R thoracoscopy with wedge resection with Dr. Delatorre tomorrow. The patient has a h/o Asthma, ANA on CPAP, HTN, DLD, chronic diastolic CHF, atrial fibrillation, mild MR, GERD, TIA (2005), DM, hypothyroidism, morbid obesity and colon CA s/p recent colon resection with ostomy placement on 10/2017. The patient has now developed a severe abdominal wall cellulitis and possible abscess from the ostomy for which she is receiving IV antibiotics. She will likely have the ostomy reversed after she recovers from her thoracic surgery. The patient was diagnosed with new onset atrial fibrillation 10/2017 when she presented with RVR. EKG from today showed Afib with HR 85 and poor R wave progression. An echo from 10/2017 showed an EF of 55-60% with no wall motion abnormalities and moderate MR. A stress test from 08/2017 was negative for ischemia, however the patient had frequent PVCs with the dobutamine infusion and multiple runs of NSVT. The patient does not have a good exercise tolerance , however she did tolerate the anesthetic for her colon resection last month without any complications. The patient's CXR showed some mild pulmonary vascular congestion and cardiomegaly. Labs were notable for a Hgb of 10.3. Type and screen was so a new one has been ordered. On exam the patient is resting comfortably in bed. Her heart rate was irregular and her lungs were CTA bilaterally. Airway exam was notable for a Mallampati class 3 airway and thick neck. The patient has no upper teeth and is missing most of her lower teeth. The patient appears to be acceptable for surgery tomorrow. She did tolerate her last general anesthetic well. Anesthesia consent was obtained and all questions were answered. The patient was instructed to remain NPO after midnight except for sip of water with medications.
--- NOTE | 2017-11-07 14:21 | SURGERY PROGRESS NOTE ---
DATE: 11/07/2017 Ms. Bernard was seen today. I had a long talk with the patient and I will proceed with a left thoracoscopy with a wedge resection of this mass. I suspect we are dealing with metastases. The patient has never smoked cigarettes; however, this mass has definitely grown. We will do a navigational bronchoscopy, marking with a fiducial marker. We will then proceed with a wedge resection of this mass. I had a long talk with the patient and her family, and we discussed risks and benefits including an air leak and infections. I think she will recover from this fairly quickly and will enable Dr. Rogers to go ahead and close her ileostomy.
[2017-11-07 15:08] VITALS: BP 107/69; PULSE 106; TEMP 36.8; O2SAT 95
[2017-11-07] MEDS ORDERED: CUSTOM CENTRAL PN 1 BAG IV SCH (16:00)
[2017-11-07] MEDS: MONTELUKAST SOD 10 MG TAB PO SCH (20:49)
[2017-11-07] MEDS: ATORVASTATIN 20 MG TAB PO SCH (20:50)
[2017-11-07] MEDS: INSULIN GLARGINE SOLOSTAR 100 UNITS/ML 3 ML PEN SC SCH (21:03)
[2017-11-07 23:10] VITALS: BP 120/80; PULSE 96; TEMP 37.2; O2SAT 94
[2017-11-07 23:53] VITALS: PULSE 84; O2SAT 96
[2017-11-08] VITALS (13 sets, daily range): BP systolic 63–114; BP diastolic 33–76; PULSE 61–85; TEMP 36.4–37.2; O2SAT 93–100
[2017-11-08] MEDS: PIPERACILL/TAZOBAC IV 4.5 GM in DEXTROSE 5% 100ML 100 ML IV SCH ×2 (04:34→17:51)
[2017-11-08] MEDS: OCTREOTIDE ACETATE 100 MCG/ML VIAL SQ SCH ×3 (05:43→20:49)
[2017-11-08] MEDS: LEVOTHYROXINE 200 MCG TAB PO SCH (05:44)
[2017-11-08 05:58] LABS: HEMATOCRIT 33.2 % (37-47); HEMOGLOBIN 10.8 g/dL (12.0-16.0); MEAN CELL VOLUME 80.2 fL (80-100); MEAN CORPUSCULAR HEMOGLOBIN 26.1 pg (25-34); MEAN CORPUSCULAR HGB CONC 32.5 g/dl (32-36); MEAN PLATELET VOLUME 9.1 fL (7.4-10.4); PLATELET COUNT 363 K/uL (130-400); RED CELL DISTRIBUTION WIDTH CV 15.4 % (11.5-14.5); WHITE BLOOD COUNT 8.23 K/uL (4.8-10.8)
[2017-11-08 06:48] LABS: CALCIUM 8.6 mg/dl (8.5-10.1); CREATININE 0.55 mg/dl (0.60-1.20); POTASSIUM 3.9 mmol/L (3.5-5.1)
[2017-11-08] MEDS: CHOLESTYRAMINE LIGHT 4 GM PKT PO SCH (06:55)
[2017-11-08] MEDS: LACTOBACILLUS ACIDOPHILUS (FLORANEX) TAB PO SCH ×3 (08:09→19:57)
[2017-11-08] MEDS: METOPROLOL SUCC 50MG EXT REL TAB PO SCH (08:09)
[2017-11-08] MEDS: FAMOTIDINE 20 MG TAB PO SCH (08:09)
[2017-11-08] MEDS: IPRATROPIUM BROMIDE/ALBUTEROL respimat INH INH SCH ×4 (08:09→19:56)
[2017-11-08] MEDS: FUROSEMIDE 20 MG TAB PO SCH (08:09)
[2017-11-08] MEDS: FLUCONAZOLE 100 MG TAB PO SCH (08:09)
[2017-11-08] MEDS: POTASSIUM CHLORIDE 10 MEQ TABCR PO SCH (08:09)
[2017-11-08] MEDS: MAGNESIUM OXIDE 400 MG TAB PO SCH (08:10)
[2017-11-08] MEDS: LISINOPRIL 5 MG TAB PO SCH (08:10)
[2017-11-08] MEDS: LORATADINE 10 MG TAB PO SCH (08:10)
[2017-11-08] MEDS: INSULIN ASPART 100 UNITS/ML 3 ML PEN SC SCH ×4 (08:24→20:46)
[2017-11-08] MEDS ORDERED: VANCOMYCIN TROUGH ONE (09:30)
[2017-11-08] MEDS ORDERED: FENTANYL CITRATE INJ 50 MCG/1 ML 2 ML VIAL ONE ×4 (11:39→16:18)
[2017-11-08] MEDS ORDERED: BUPIVACAINE 0.5 % 5 MG/1 ML MPF 30ML VIAL ONE (11:52)
[2017-11-08] MEDS ORDERED: SODIUM CHLORIDE 0.9% PF 50 ML VIAL ONE (11:52)
[2017-11-08] MEDS ORDERED: BUPIVACAINE LIPOSOME 1/3% 266 MG/20 ML VIAL INFIL ONE ×3 (11:53→13:45)
[2017-11-08] MEDS ORDERED: MIDAZOLAM HCL 1 MG/ML 2ML VIAL ONE (11:54)
--- NOTE | 2017-11-08 11:56 | Hospitalist Progress Note ---
Hospitalist Progress Note Date of Service Nov 08, 2017. Subjective Pt evaluation today including: conversation w/ patient, conversation w/ family , physical exam, chart review, lab review, review of studies Pain: Abdominal pain PO Intake: NPO Voiding: steinberg catheter in place The patient was seen and examined this morning. Pts family including her and her daughter are present at bedside. She reports having some mild abdominal pain today but overall feels a little bit better. She denies any fever, chills or sweats today or overnight. She remains NPO for thoracoscopy with a wedge resection of mass by Dr. Delatorre today. Pt denies any other acute complaints. ROS: 6 point ROS reviewed and otherwise negative. Objective Vital Signs Date Time Temp Pulse Resp B/P (MAP) Pulse Ox O2 Delivery O2 Flow Rate FiO2 11/08/17 08:00 94 Room Air 11/08/17 07:50 37.2 61 16 114/76 (89) 94 Room Air 11/08/17 00:00 Room Air 11/07/17 23:53 84 96 21 11/07/17 23:10 37.2 96 18 120/80 (93) 94 Room Air 11/07/17 19:00 Room Air 11/07/17 16:00 Room Air 11/07/17 15:08 36.8 106 16 107/69 (82) 95 Room Air Physical Exam Notes: General Appearance: WD/WN, no apparent distress, + obese (morbidly) Eyes: PERRL, EOMI ENT: hearing grossly normal, pharynx normal, + pertinent finding (MM dry) Neck: supple, no JVD Respiratory/Chest: chest non-tender, lungs clear, no respiratory distress, no accessory muscle use, + pertinent finding (on RA) Cardiovascular: + systolic murmur, + irregularly irregular (rate controlled) Abdomen: + pertinent finding (Obese, + erythematous pannus involving the folds is slightly improving, + RLQ abdominal ostomy without bag on, semi-packed 4x4 gauze, + small necrotic 1x1cm lesion in pannus fold, livan removed from midline incision with steri-strips overlying it, edges are not well healed yet, +slight serosanguineous drainage from midline incision, no purulent or bloody drainage. +tenderness with minimal palpation.) Extremities: +PICC line RUE, non-tender, no pedal edema, no calf tenderness Neurologic/Psychiatric: alert, normal affect, oriented x 3 Laboratory Results Last 24 Hours Test 11/07/17 16:09 11/07/17 19:33 11/08/17 05:26 11/08/17 07:59 Bedside Glucose 183 mg/dl 189 mg/dl 196 mg/dl White Blood Count 8.23 K/uL Red Blood Count 4.14 M/uL Hemoglobin 10.8 g/dL Hematocrit 33.2 % Mean Corpuscular Volume 80.2 fL Mean Corpuscular Hemoglobin 26.1 pg Mean Corpuscular Hemoglobin Concent 32.5 g/dl RDW Standard Deviation 45.0 fL RDW Coefficient of Variation 15.4 % Platelet Count 363 K/uL Mean Platelet Volume 9.1 fL Sodium Level 136 mmol/L Potassium Level 3.9 mmol/L Chloride Level 102 mmol/L Carbon Dioxide Level 28 mmol/L Anion Gap 6.0 mmol/L Blood Urea Nitrogen 22 mg/dl Creatinine 0.55 mg/dl Est Creatinine Clear Calc Drug Dose 119.4 ml/min Estimated GFR () 124.1 Estimated GFR (Non- 107.1 BUN/Creatinine Ratio 39.2 Random Glucose 165 mg/dl Calcium Level 8.6 mg/dl Phosphorus Level 3.0 mg/dl Magnesium Level 1.8 mg/dl Assessment and Plan 51 yo female here with the surgical site infection of abdominal cellulitis with concern for possible abscess Severe Abdominal wall cellulitis, possible abscess Severe Protein Calorie Malnutrition - ID on board- - Last evening pt had diffuse rash develop about 30 minutes after initiation of vancomycin - so antibiotic was stopped and benadryl administered. Hold further vanc at this time. Strange clinical picture as she had been getting this med for 4 days and no other reaction. Will monitor off this and determine if still clinically improving. - Continue Zosyn (started on 11/03), follow wound cultures. Was on cipro/ flagyl prior to admission. - Gen surgical consulted- keeping on clear liquid diet, plans for ileostomy reversal during this admission but they would like cellulitis to be more improved - ileostomy very difficult to maintain bag in correct position due to body habitus. The patient also needs to have improved nutritional status prior to surgical procedure. - PICC line inserted on 11/05, TPN started 11/05 per dietary/pharmacy recs - Wound consulted for ostomy site care - hold Eliquis Loop ileostomy - NPO/sips clears; start octreotide to try and decrease ileostomy output, poor function due to obesity - Livan out of midline abdominal incision - steri-strips in place with serosanguineous drainage from the wound, monitor for wound dehiscence. - Barium enema 11/07: normal - TPN on, NPO today for thoracoscopy. 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 Delatorre. - patient has not established with oncology yet, she would like to see them here in the hospital - Onc consult today after surgery Atrial fibrillation - maintained on her metoprolol succ 50 mg daily - Holding Eliquis (last taken 11/04) HLD - Lipitor will be continued Hypertension - cont lisinopril 5 mg daily DM II - She's been on various diabetic regimens over the last few months - currently on Tojeo at 15 U will convert this to Lantus 15 U QPM and ISS with accuchecks achs - will adjust to half dose if surgical procedure planned Asthma - Cont Combivent and Singulair Reverse hypothyroidism - she appears clinically euthyroid and she is on a significantly high dose of Synthroid in the chart documented at 1200 g a day obstructive sleep apnea - supply her CPAP and asked to bring her home unit in Her morbid obesity directly impacts both her wound care her healing and her sleep apnea DVT ppx : SCDs, no chemical anticoagulation at this time CODE STATUS: FULL Dispostion: Anticipated prolonged hospital course due to severity of abdominal cellulitis, needs for improved nutritional status, planned ileostomy reversal and post-op healing. From home, will need CM to assist with dc planning, was from [facility].
--- NOTE | 2017-11-08 12:21 | Surgery Progress Note ---
Surgery Progress Note Date of Service Nov 08, 2017. Subjective doing ok. stoma output has dramatically decreased since making her npo/ starting octreotide. she is having a wedge resection by thoracic surgery today. no new complaints. Objective Vital Signs: Date Time Temp Pulse Resp B/P (MAP) Pulse Ox O2 Delivery O2 Flow Rate FiO2 11/08/17 08:00 94 Room Air 11/08/17 07:50 37.2 61 16 114/76 (89) 94 Room Air 11/08/17 00:00 Room Air 11/07/17 23:53 84 96 21 11/07/17 23:10 37.2 96 18 120/80 (93) 94 Room Air 11/07/17 19:00 Room Air 11/07/17 16:00 Room Air 11/07/17 15:08 36.8 106 16 107/69 (82) 95 Room Air General Appearance: no apparent distress Laboratory Results: Results Past 24 Hours Test 11/07/17 16:09 11/07/17 19:33 11/08/17 05:26 11/08/17 07:59 Range/Units Bedside Glucose 183 189 196 70-90 mg/dl White Blood Count 8.23 4.8-10.8 K/uL Red Blood Count 4.14 4.2-5.4 M/uL Hemoglobin 10.8 12.0-16.0 g/dL Hematocrit 33.2 37-47 % Mean Corpuscular Volume 80.2 80-100 fL Mean Corpuscular Hemoglobin 26.1 25-34 pg Mean Corpuscular Hemoglobin Concent 32.5 32-36 g/dl RDW Standard Deviation 45.0 36.4-46.3 fL RDW Coefficient of Variation 15.4 11.5-14.5 % Platelet Count 363 130-400 K/uL Mean Platelet Volume 9.1 7.4-10.4 fL Sodium Level 136 136-145 mmol/L Potassium Level 3.9 3.5-5.1 mmol/L Chloride Level 102 98-107 mmol/L Carbon Dioxide Level 28 21-32 mmol/L Anion Gap 6.0 3-11 mmol/L Blood Urea Nitrogen 22 7-18 mg/dl Creatinine 0.55 0.60-1.20 mg/dl Est Creatinine Clear Calc Drug Dose 119.4 ml/min Estimated GFR () 124.1 Estimated GFR (Non- 107.1 BUN/Creatinine Ratio 39.2 10-20 Random Glucose 165 70-99 mg/dl Calcium Level 8.6 8.5-10.1 mg/dl Phosphorus Level 3.0 2.5-4.9 mg/dl Magnesium Level 1.8 1.8-2.4 mg/dl Assessment & Plan 11/08/17 doing reasonably ok clinically discussed with Dr. Delatorre, would be ok to reverse stoma some time next week if she does well with her surgery today. tentatively may plan for ileostomy reversal Sunday. BE was negative discussed case at tumor board. will need a mediport which I can place at time of ileostomy reversal. 11/05/2017 patient see and examined with Dr. Rogers. CT scan reviewed from yesterday Redness slightly improved overnight Continue IV abx. Wound care consult Will attempt to slow ostomy output- will place PICC line, order TPN, keep patient on clear liquid diet. pt seen. as above. erythema improving already. ileostomy is difficult situation /impossible to keep bag in place secondary to body habitus will need to get cellulitis improved prior to attempting reversal will make NPO/sips clears; start TPN; start sandostatin to try and decrease ileostomy output. I do not believe the small pelvis fluid collection is worth going after at this point. wbc already decreasing. will remove livan will obtain BE in the next day or 2. will likely need to have her ileostomy reversed this admission appreciate ID input wound care consult obtained. 11/05/2017 patient see and examined with Dr. Rogers. CT scan reviewed from yesterday Redness slightly improved overnight Continue IV abx. Wound care consult Will attempt to slow ostomy output- will place PICC line, order TPN, keep patient on clear liquid diet. pt seen. as above. erythema improving already. ileostomy is difficult situation /impossible to keep bag in place secondary to body habitus will need to get cellulitis improved prior to attempting reversal will make NPO/sips clears; start TPN; start sandostatin to try and decrease ileostomy output. I do not believe the small pelvis fluid collection is worth going after at this point. wbc already decreasing. will remove livan will obtain BE in the next day or 2. will likely need to have her ileostomy reversed this admission appreciate ID input wound care consult obtained.
[2017-11-08] MEDS ORDERED: VANCOMYCIN HCL 1000MG/20ML VIAL ONE (13:11)
[2017-11-08] MEDS ORDERED: GENTAMICIN SULFATE 40 MG/ML 2 ML VIAL ONE (13:12)
[2017-11-08] MEDS ORDERED: BUPIVACAINE 0.5 % 5 MG/1 ML MPF 30ML VIAL INJ ONE (13:34)
[2017-11-08] MEDS ORDERED: SODIUM CHLORIDE 0.9% PF 50 ML VIAL INJ ONE (13:36)
[2017-11-08] MEDS ORDERED: ROCURONIUM BROMIDE 10 MG/ML 5 ML VIAL IV ONE (14:06)
[2017-11-08] MEDS ORDERED: LIDOCAINE HCL 2% 2 ML VIAL (20MG/ML) ONE (14:06)
[2017-11-08] MEDS ORDERED: PHENYLEPHRINE 100MCG/ML 5ML SYR ONE (14:06)
[2017-11-08] MEDS ORDERED: PROPOFOL IV EMULSION 10 MG/ML 20 ML VIAL IV ONE (14:06)
[2017-11-08] MEDS ORDERED: PHENYLEPHRINE HCL INJ 10 MG/ML VIAL ONE (14:25)
[2017-11-08] MEDS ORDERED: NEOSTIGMINE METHYLSULFATE 5 MG/5 ML SYR ONE (14:44)
[2017-11-08] MEDS ORDERED: GLYCOPYRROLATE INJ 0.2 MG/ML VIAL ONE (14:44)
--- NOTE | 2017-11-08 14:52 | [facility] Post Operative Brief Note ---
Immediate Operative Summary Operative Date Nov 08, 2017. Pre-Operative Diagnosis 1. Left Lower lobe nodule 2. Colon carcinoma Post-Operative Diagnosis 1. Apparent metastatic adenocarcinoma left lower lobe 2. Colon carcinoma Procedure(s) Performed Navigational Bronchoscopy with fiducial marker placement, Left video assisted thoracoscopy with Left Lower lobe wedge resection Surgeon Dr. Marcial Delatorre Hay Farmer Surgeon(s) Nader Alcala PA-C Estimated Blood Loss 10 mL Findings Consistent with Post-Op Diagnosis Specimens Permanent specimens A: Left Level 9 Lymph Node B: Left Level 8 Lymph Node x2 Fresh specimens carried to lab at 1432. Frozen Section #1. Left Lower Lobe Mass Sent to lab at 1431. Results called and reported to Dr. Delatorre from Dr. Irizarry at 1447.
--- NOTE | 2017-11-08 15:20 | DIAGNOSTIC IMAGING REPORT ---
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 Telemetry leads noted. Second and third images demonstrate metallic tools overlying what appears to be the left hemithorax and left lower lobe fiducial markers. IMPRESSION: Fluoroscopic assistance as above. Please see procedural report for details. The above report was generated using voice recognition software. It may contain grammatical, syntax or spelling errors. Electronically signed by: Jayjay Crowder M.D. 11/08/2017 3:19 PM Dictated Date/Time: 11/08/2017 3:17 PM
--- NOTE | 2017-11-08 15:42 | DIAGNOSTIC IMAGING REPORT ---
CHEST ONE VIEW PORTABLE HISTORY: 51 years-old Female LLL wedge resection status post wedge resection of the left lower lobe COMPARISON: Chest radiograph 11/05/2017 TECHNIQUE: Portable AP view of the chest FINDINGS: Right-sided PICC is again noted with distal tip in the region of the right atrium. Cardiac silhouette is again enlarged. Patient is rotated to the right. Mild right hemidiaphragmatic elevation. Small left apical pneumothorax, pleural separation 1.3 cm. Fiducial marker is noted within the left lower lobe with patchy left basilar alveolar opacities. Left-sided chest tube projects towards left lung apex. Mild amount of subcutaneous emphysema of the lateral left chest wall. IMPRESSION: 1. Small left apical pneumothorax with left-sided chest tube in place projected superiorly adjacent to the left lung apex. Mild associated subcutaneous emphysema of the chest wall. 2. Cardiomegaly. 3. Patchy left basilar opacities suggest atelectasis. The above report was generated using voice recognition software. It may contain grammatical, syntax or spelling errors. Electronically signed by: Jayjay Crowder M.D. 11/08/2017 3:41 PM Dictated Date/Time: 11/08/2017 3:38 PM
[2017-11-08] MEDS ORDERED: CUSTOM CENTRAL PN 1 BAG IV SCH (16:00)
[2017-11-08] MEDS ORDERED: ALBUT/IPRATROP 3MG/0.5MG NEB 3 ML VIAL INH ONE (16:00)
--- NOTE | 2017-11-08 16:26 | Anesthesiology Progress Note ---
Anesthesia Post Op Note Date & Time Nov 08, 2017 at 16:25 Vital Signs Pain Intensity: 6.0 Vital Signs Past 12 Hours Date Time Temp Pulse Resp B/P (MAP) Pulse Ox O2 Delivery O2 Flow Rate FiO2 11/08/17 16:05 85 20 97/63 100 Nasal Cannula 4 11/08/17 15:55 85 15 91/64 100 Nasal Cannula 4 11/08/17 15:45 85 18 83/65 96 Nebulizer 8 11/08/17 15:35 86 27 90/63 96 Oxymask 10 11/08/17 15:35 72 20 100 Mask 10.0 11/08/17 15:29 36.3 75 24 105/67 96 Oxymask 10 11/08/17 08:00 94 Room Air 11/08/17 07:50 37.2 61 16 114/76 (89) 94 Room Air Notes Mental Status: alert / awake / arousable, participated in evaluation Pt Amnestic to Procedure: Yes Nausea / Vomiting: adequately controlled Pain: improving with treatment Airway Patency, RR, SpO2: stable & adequate BP & HR: stable & adequate Hydration State: stable & adequate Anesthetic Complications: no major complications apparent
[2017-11-08] MEDS ORDERED: ATROPINE SULFATE 0.1 MG/ML 5ML SYR IV PRN (16:30)
[2017-11-08] MEDS ORDERED: EpHEDrine SULFATE INJ 50 MG/ML AMP IV PRN (16:30)
[2017-11-08] MEDS ORDERED: ONDANSETRON INJ 2 MG/ML 2 ML VIAL IV PRN (16:30)
[2017-11-08] MEDS ORDERED: FENTANYL CITRATE INJ 50 MCG/1 ML 2 ML VIAL IV PRN (16:30)
--- NOTE | 2017-11-08 17:03 | Anesthesiology Progress Note ---
Anesthesia Progress Note Date of Service Nov 08, 2017. Progress Notes Ms. Luisa Bernard did well intraop and during her stay in PACU. Upon first arriving to PACU, she was treated with a DuoNeb with improvement in her lung volumes. She had some minor pain at the surgical site that responded well to fentanyl. During her stay, she remained hemodynamically stable throughout her time in PACU and she was awake and conversant. She did not have any additional complaints until immediately prior to leaving PACU, when the patient reported new onset burning in her left eye. When I arrived at the bedside, she was rubbing at her left eye with a tissue. She reported irritation with blinking, tearing and a burning sensation. I suspect that the patient may have a corneal abrasion based on her symptoms, but due to the sudden development at the end of her PACU stay, I do not think the abrasion occurred intraop. The patient was instructed to avoid rubbing her left eye and told to not use contacts for the next 2 weeks. An order was placed for erythromycin ointment which she should apply to the left eye 4 times day for the next 3 days. The symptoms should resolve over the next 48 hours. If not, we will refer her to ophthalmology for further evaluation. Monique Goins MD, PhD Anesthesiology
[2017-11-08] MEDS: KETOROLAC TROMETHAMINE 15 MG/ML VIAL IV. SCH (17:51)
[2017-11-08] MEDS: ACETAMINOPHEN IV 1,000 MG in EMPTY BAG 0 ML IV SCH (17:55)
[2017-11-08] MEDS ORDERED: INSULIN HUMAN REGULAR IV SCH ×2 (18:15→20:15)
[2017-11-08] MEDS ORDERED: INSULIN HUMAN REGULAR PER UNIT 6 UNITS in SYRINGE 5.94 ML IV SCH (18:45)
[2017-11-08] MEDS: ERYTHROMYCIN OP OINT 5 MG/GM 3.5 GM TUBE OP SCH ×2 (18:49→19:57)
--- NOTE | 2017-11-08 18:57 | OPERATIVE REPORT ---
DATE OF OPERATION: 11/08/2017 PREOPERATIVE DIAGNOSES: 1. Growing left lower lobe mass. 2. History of colorectal carcinoma. POSTOPERATIVE DIAGNOSES: 1. Probable metastatic colon carcinoma left lower lobe. 2. History of colorectal carcinoma. PROCEDURE: 1. Navigational bronchoscopy with placement of 2 fiducial markers left lower lobe. 2. Left thoracoscopy with fluoroscopy-directed wedge resection of left lower lobe mass. 3. Lymph node biopsies. SURGEON: Dr. Delatorre. SUPERVISOR WOOD CREW: SOREN Monae. (Mr. Alcala was instrumental as a surgical physician assistant in this case, was present from the start to the end. He was instrumental in holding the camera. He closed the skin incisions at the end.) ANESTHESIA: General anesthesia with endotracheal intubation using double lumen tube. SPECIFICS OF PROCEDURE: This is a 51-year-old female who underwent low anterior resection by Dr. John Rogers about 3 weeks ago for a locally advanced adenocarcinoma. There was a serosal implant as well as extension of the tumor to the serosa. She had some issues with protective ileostomy. She is short and morbidly obese. She underwent a CT scan of her abdomen to ensure she had no abscess recently and she was found to have a nodule in her left lower lobe which had not been present earlier. She has no history of cigarette smoking. CT scan of her chest did not show any other nodules or lymphadenopathy. We presented her at the weekly multidisciplinary cancer conference and it was the consensus that this needed to be biopsied. She was not a candidate for needle biopsy or a navigational bronchoscopy as it was fairly peripheral; however, I did feel that we could do a navigational bronchoscopy and place fiducial markers in the area and then remove this. On 11/08/2017, the patient was brought to the operating room and underwent uncomplicated navigational bronchoscopy. Placed 2 fiducial markers around this lesion. I then turned her and did a thoracoscopic evaluation. She had no adhesions and her lungs actually were quite pink; however, I could not palpate this mass. With fluoroscopy, we could see the markers. It was actually fairly close to the hilum, it was very difficult to get a good wedge. We finally were able to do this after I freed up the entire inferior pulmonary ligament and biopsied level 8 and level 9 nodes. Wedged this out and we got the mass out completely, although we only removed one of the fiducial markers. We had an 8 mm margin and this was an adenocarcinoma consistent with metastatic disease, although we will have to wait for final diagnosis with immunohistochemical stains. The patient tolerated well, was extubated in the room and had no air leak and negligible blood loss. PROCEDURE IN DETAIL: The patient brought to the operating room and laid in supine position. General anesthesia induced, endotracheal intubation was performed with a single lumen tube. A navigational bronchoscopy was then performed after appropriate timeout and prophylactic antibiotics had been given. Fiberoptic bronchoscope was placed. The airways showed no evidence of any endobronchial lesion, although she had scant amount of yellow sputum which was suctioned out. The navigational probe from [facility] was then inserted and we registered her airways. I then went down into the lower lobe, and in the medial segment, I was able to get right out to the lesion. I placed a fiducial marker right at the mass and a bit more proximal. We did use ultrasound and fluoroscopy to localize the mass. I then removed the scope without difficulty. There was no bleeding. The patient was then switched over to a double lumen tube and placed in the right lateral decubitus position. Left chest prepped and draped in the usual sterile fashion. I placed a 5 mm port one interspace below and posterior to the scapular tip and insufflated carbon dioxide. The 5 mm scope showed this to have no adhesions and good one-lung ventilation. I then placed 10 mm port anteriorly and medially and 5 mm port at about the fourth interspace. With these, we were able to enter the pleural cavity. I closely inspected the entire cavity. I could not palpate this mass with forceps. After evaluating the location with fluoroscopy, I freed up the inferior pulmonary ligament all the way to the inferior pulmonary vein. Level 8 and level 9 nodes were removed. We really had very little in the way of bleeding. We could then see that we had gotten up and were in a good enough angle to do wedge resection of this mass. Endo-LOUIE stapler was fired about 3 times to remove a segment of the lower lobe which included this mass. She had 2 fiducial markers. A second fiducial marker had been placed a centimeter or so proximal to the mass. My stapler went between these two. However, I went ahead and fired and removed the wedge and then delivered this off the table in an Endobag. We had no bleeding and no hematoma. I then palpated the mass and cut it open, indeed it did appear to be a malignancy and grossly it appeared we had good resection margins. This was sent off to the lab. While waiting, I mixed 266 mg of Exparel with 20 mL of solution. I mixed this with 30 mL of 0.5% bupivacaine and 100 mL of normal saline and then performed extensive block from the 2nd to the 11th rib with a long needle and then completely filled the intercostal spaces intrathoracically. I then injected all 3 of the incisions. I did have to enlarge these incisions of 10 mm ports in order to put our stapler posteriorly and superiorly. After firing the stapler several times, using Endobag, delivered this off the field. We got our frozen section back and this was consistent with adenocarcinoma, possibly metastasis. We had clean resection margins. We really had no air leak, the lung inflated nicely. A 24-Yoruba chest tube was placed in the anterior inferior thoracoscopy port and directed toward the apex. It was sutured in place with heavy silk suture. 0 Vicryl was used to close the muscle layer of each of the incisions. I did use 5 mL of Stimulan with a gram of vancomycin and 240 mg of gentamicin, mixed together to form beads which were placed in a mold. When the beads were set, the mold was bent and the beads removed. These were used to pack all of her incisions before we closed this with 4-0 Monocryl. It should be noted this patient has severe cellulitis and has an active infection of her abdominal wall and I did not want this to seed. She had no air leak and had negligible blood loss and awakened without difficulty in the operating room. I attest to the content of the Intraoperative Record and any orders documented therein. Any exception s are noted below.
[2017-11-08] MEDS: ATORVASTATIN 20 MG TAB PO SCH (19:57)
[2017-11-08] MEDS: MONTELUKAST SOD 10 MG TAB PO SCH (19:58)
[2017-11-08] MEDS ORDERED: INSULIN HUMAN REGULAR PER UNIT 5 UNITS in SYRINGE 0 ML IV STA (20:16)
--- NOTE | 2017-11-08 20:16 | Critical Care Consultation ---
Critical Care Consultation Date of Consultation: Nov 08, 2017. Attending Physician: Job Gloria D.O. Reason for Consultation: Post-op management History of Present Illness 51 year-old female POD#0 s/p LLL wedge resection for a pulmonary nodule. EB was 10 ml, chest tube left in place. She is extubated now, appears comfortable. The patient was admitted in the hospital on 11/04/17 for abdominal wall cellulitis around the colostomy site. She carries a history of morbid obesity, had colectomy colon cancer with creation of ileostomy. Workup showing LLL nodule, at the multidisciplinary conference it was concluded that it is best to obtain tissue diagnosis from the nodule For the abdominal cellulitis, she was kept NPO, placed on octreotide, decreasing the ostomy output. Started on TPN. 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 Clindamycin (Verified Allergy, Intermediate, HIVES, 11/04/17) Sulfa Antibiotics (Verified Allergy, Intermediate, BACTRIM-HIVES, 11/04/17) Vancomycin (Verified Allergy, Intermediate, RASH, 11/08/17) BEE STING (Verified Allergy, Unknown, HIVES, 11/04/17) Trimethoprim (Verified Allergy, Unknown, HIVES, 11/04/17) Dulaglutide (Verified Adverse Reaction, Severe, BRAND-TRULICITY, SEVERE GI UPSET, CONSTIPATION, 11/04/17) Home Medications Scheduled Apixaban (Eliquis), 5 MG PO BID Atorvastatin (Lipitor), 20 MG PO HS Cholestyramine (Bulk) (Cholestyramine), 1 PKT DAILY Ciprofloxacin Tab (Cipro), 500 MG PO BID Famotidine (Pepcid), 20 MG PO DAILY Fluconazole (Diflucan), 100 MG PO QAM Fluticasone Furoate-Vilanterol (Breo Ellipta 200-25 Mcg/INH), 1 PUFF INH QAM Furosemide (Lasix), 20 MG PO QAM Insulin Aspart (Novolog), UNITS SQ TIDM Insulin Glargine (Toujeo Solostar), 15 UNITS SQ DAILY Ipratropium-Albuterol (Combivent Respimat), 1 PUFFS INH QID Lactobacillus Acidophilus (Lactinex), 4 TAB PO TID Levothyroxine Sodium (Levothyroxine Sodium), 6 TAB PO DAILY Lisinopril (Lisinopril), 5 MG PO QAM Loratadine (Claritin), 10 MG PO QAM Magnesium Oxide (Mag-Ox), 400 MG PO DAILY Metoprolol Succinate (Toprol Xl), 50 MG PO DAILY Metronidazole (Flagyl), 500 MG PO TID Montelukast Sod (Montelukast Sodium), 10 MG PO HS Potassium Chloride (Micro-K Ext Rel), 10 MEQ PO QAM Scheduled PRN Albuterol Hfa (Ventolin Hfa), 2-4 PUFFS INH Q6H PRN for ASTHMA Nitroglycerin (Nitrostat), 0.4 MG UT UD PRN for Chest Pain Ondansetron Hcl (Zofran), 8 MG PO Q6 PRN for Nausea Oxycodone HCl (Oxycodone HCl), 5-10 MG PO Q4H PRN for Pain Oxycodone/Acetaminophen 5MG/325MG (Percocet 5MG/325MG), 1 TABLETS PO Q12H PRN for Pain Current Inpatient Medications Current Inpatient Medications Medications (Trade) Dose Ordered Sig/Viviana Route Start Time Stop Time Status Last Admin Dose Admin Piperacillin Sod/ Tazobactam Sod 4.5 gm/Dextrose 120 ml @ 30 mls/hr Q8H IV 11/04/17 21:00 11/14/17 20:59 11/08/17 17:51 30 MLS/HR Miscellaneous Information (Consult) 1 ea UD PRN N/A 11/04/17 17:15 12/04/17 17:14 Albuterol (Ventolin Hfa Inhaler) 2 puffs Q6H PRN INH 11/04/17 18:30 12/04/17 18:29 Atorvastatin Calcium (Lipitor Tab) 20 mg HS PO 11/04/17 21:00 12/04/17 20:59 11/07/17 20:50 20 MG Famotidine (Pepcid Tab) 20 mg DAILY PO 11/05/17 08:00 12/05/17 08:59 11/08/17 08:09 20 MG Fluconazole (Diflucan Tab) 100 mg QAM PO 11/05/17 08:00 11/15/17 08:59 11/08/17 08:09 100 MG Furosemide (Lasix Tab) 20 mg QAM PO 11/05/17 08:00 12/05/17 08:59 11/08/17 08:09 20 MG Albuterol/ Ipratropium (Combivent Respimat Inh) 1 puffs QID INH 11/04/17 20:00 12/04/17 20:59 11/08/17 17:52 1 PUFFS Lactobacillus Acidophilus (Floranex Tab) 4 tab TID PO 11/04/17 20:00 12/04/17 20:59 11/08/17 08:09 4 TAB Lisinopril (Zestril Tab) 5 mg QAM PO 11/05/17 08:00 12/05/17 08:59 11/08/17 08:10 5 MG Loratadine (Claritin Tab) 10 mg QAM PO 11/05/17 08:00 12/05/17 08:59 11/08/17 08:10 10 MG Magnesium Oxide (Mag-Ox Tab) 400 mg DAILY PO 11/05/17 08:00 12/05/17 08:59 11/08/17 08:10 400 MG Metoprolol Succinate (Toprol Xl Tab) 50 mg DAILY PO 11/05/17 08:00 12/05/17 08:59 11/08/17 08:09 50 MG Montelukast Sodium (Singulair Tab) 10 mg HS PO 11/04/17 21:00 12/04/17 20:59 11/07/17 20:49 10 MG Potassium Chloride (Klor-Con M10) 10 meq QAM PO 11/05/17 08:00 12/05/17 08:59 11/08/17 08:09 10 MEQ Cholestyramine Resin (Questran Powder Light) 4 gm DAILY PO 11/05/17 08:00 12/05/17 08:59 11/07/17 07:53 4 GM Insulin Aspart (novoLOG ASPART) SLIDING SCALE PARAMETER ACHS SC 11/04/17 21:00 12/04/17 20:59 11/08/17 08:24 2 UNITS Levothyroxine Sodium (Synthroid Tab) 1,200 mcg DAILYBB PO 11/05/17 06:30 12/05/17 06:29 11/08/17 05:44 1,200 MCG Al Hydrox/Mg Hydrox/Simethicone (Maalox Max Susp) 15 ml Q4H PRN PO 11/04/17 18:45 12/04/17 18:44 Magnesium Hydroxide (Milk Of Magnesia Susp) 30 ml Q6H PRN PO 11/04/17 18:45 12/04/17 18:44 Ondansetron HCl (Zofran Inj) 4 mg Q6H PRN IV 11/04/17 18:45 12/04/17 18:44 Lorazepam (Ativan Inj) 0.5 mg Q4H PRN IV 11/04/17 18:45 12/04/17 18:44 Lorazepam (Ativan Inj) 1 mg Q4H PRN IV 11/04/17 18:45 12/04/17 18:44 Morphine Sulfate (MoRPHine SULFATE INJ) 4 mg Q4H PRN IV 11/04/17 18:45 11/18/17 18:44 11/07/17 08:05 4 MG Morphine Sulfate (MoRPHine SULFATE INJ) 2 mg Q4H PRN IV 11/04/17 18:45 11/18/17 18:44 Glucose (Glucose 40% Gel) 15-30 GRAMS 15 GRAMS... UD PRN PO 11/04/17 18:45 12/04/17 18:44 Glucose (Glucose Chew Tab) 4-8 Tablets 4 Tabl... UD PRN PO 11/04/17 18:45 12/04/17 18:44 Dextrose (Dextrose 50% 50ML Syringe) 25-50ML OF 50% DW IV FOR... UD PRN IV 11/04/17 18:45 12/04/17 18:44 Glucagon (Glucagon Inj) 1 mg UD PRN SQ 11/04/17 18:45 12/04/17 18:44 Lorazepam 0.5 mg/ Syringe 1 ml @ 1 mls/min Q4H PRN IV 11/04/17 20:30 12/04/17 20:29 Lorazepam 1 mg/ Syringe 1 ml @ 1 mls/min Q4H PRN IV 11/04/17 20:30 12/04/17 20:29 Octreotide Acetate (Sandostatin Inj) 100 mcg Q8 SQ 11/05/17 09:00 12/05/17 08:59 11/08/17 05:43 100 MCG Miscellaneous Information (Pharmacy Tpn/ Ppn Consult Active) 1 ea UD PRN N/A 11/05/17 10:00 12/05/17 09:59 Dextrose 1,000 ml @ 0 mls/hr Q0M PRN IV 11/05/17 16:00 12/05/17 15:59 Heparin Sodium (Porcine) (Heparin 10 Unit/ ml 5 ml Flush) 5 ml PRN PRN FLUSH 11/05/17 14:45 12/05/17 14:44 Diphenhydramine HCl (Benadryl Cap) 25 mg Q6H PRN PO 11/06/17 18:45 12/06/17 18:44 Insulin Glargine (Lantus Solostar Pen) 20 units PM SC 11/07/17 21:00 12/07/17 20:59 11/07/17 21:03 20 UNITS Nutrition (Parenteral) 0 ml @ 0 mls/hr TODAY@1600 IV 11/08/17 16:00 11/09/17 15:59 11/08/17 17:52 100 MLS/HR Acetaminophen 1000 mg/Empty Bag 100 ml @ 400 mls/hr Q8H IV 11/08/17 18:00 12/08/17 17:59 11/08/17 17:55 400 MLS/HR Oxycodone HCl (Roxicodone Immediate Rel Tab) 5 mg Q6H PRN PO 11/08/17 15:00 11/22/17 14:59 Enoxaparin Sodium (Lovenox Inj) 40 mg DAILY@0600 SQ 11/09/17 06:00 12/09/17 05:59 Ketorolac Tromethamine (Toradol Inj) 15 mg Q8H IV. 11/08/17 16:00 11/10/17 08:01 11/08/17 17:51 15 MG Fentanyl Citrate (Fentanyl Inj) 25 mcg Q5M PRN IV 11/08/17 16:30 11/08/17 21:30 Ondansetron HCl (Zofran Inj) 4 mg ONE PRN IV 11/08/17 16:30 11/08/17 21:30 Ephedrine Sulfate (EpHEDrine SULFATE INJ) 5 mg Q5M PRN IV 11/08/17 16:30 11/08/17 21:30 Atropine Sulfate (Atropine Sulfate 0.1mg/ml Inj) 0.5 mg Q1M PRN IV 11/08/17 16:30 11/08/17 21:30 Erythromycin (Erythromycin Oph Oint) 1 appln QID OP 11/08/17 17:00 11/10/17 20:01 Insulin Human Regular 6 units/ Syringe 6 ml @ 30 mls/min TODAY@1845 IV 11/08/17 18:45 11/08/17 19:30 11/08/17 18:49 30 MLS/MIN Review of Systems Per HPI, all other systems reviewed and negative Physical Exam Date Time Temp Pulse Resp B/P (MAP) Pulse Ox O2 Delivery O2 Flow Rate FiO2 11/08/17 18:01 36.4 18 86/45 (59) 98 Room Air 11/08/17 17:05 81 17 90/58 100 Nasal Cannula 4 11/08/17 16:55 80 14 105/66 98 Nasal Cannula 4 11/08/17 16:45 36.6 78 17 93/64 100 Nasal Cannula 4 11/08/17 16:35 97 17 97/63 98 Nasal Cannula 4 11/08/17 16:25 78 21 98/60 98 Nasal Cannula 4 11/08/17 16:15 80 15 87/66 100 Nasal Cannula 4 11/08/17 16:05 85 20 97/63 100 Nasal Cannula 4 11/08/17 15:55 85 15 91/64 100 Nasal Cannula 4 11/08/17 15:45 85 18 83/65 96 Nebulizer 8 11/08/17 15:35 86 27 90/63 96 Oxymask 10 11/08/17 15:35 72 20 100 Mask 10.0 11/08/17 15:29 36.3 75 24 105/67 96 Oxymask 10 11/08/17 08:00 94 Room Air 11/08/17 07:50 37.2 61 16 114/76 (89) 94 Room Air 11/08/17 00:00 Room Air 11/07/17 23:53 84 96 21 11/07/17 23:10 37.2 96 18 120/80 (93) 94 Room Air General Appearance: no apparent distress, obese Eyes: PERRLA Respiratory: breath sounds normal, clear to auscultation, other (left sided chest tube, no air leak) Cardiovasular: regular rate/rhythm, normal S1S2, irregular rate Abdomen: other (ileostomy in skin fold, mildly errythematous margins, tender. Small amount of drainage) Upper Extremities: no edema Lower Extremities: no edema Neuro: alert, oriented x 3, normal motor exam Laboratory Results Last 24 Hours Test 11/07/17 19:33 11/08/17 05:26 11/08/17 07:59 11/08/17 13:53 Bedside Glucose 189 mg/dl 196 mg/dl 168 mg/dl White Blood Count 8.23 K/uL Red Blood Count 4.14 M/uL Hemoglobin 10.8 g/dL Hematocrit 33.2 % Mean Corpuscular Volume 80.2 fL Mean Corpuscular Hemoglobin 26.1 pg Mean Corpuscular Hemoglobin Concent 32.5 g/dl RDW Standard Deviation 45.0 fL RDW Coefficient of Variation 15.4 % Platelet Count 363 K/uL Mean Platelet Volume 9.1 fL Sodium Level 136 mmol/L Potassium Level 3.9 mmol/L Chloride Level 102 mmol/L Carbon Dioxide Level 28 mmol/L Anion Gap 6.0 mmol/L Blood Urea Nitrogen 22 mg/dl Creatinine 0.55 mg/dl Est Creatinine Clear Calc Drug Dose 119.4 ml/min Estimated GFR () 124.1 Estimated GFR (Non- 107.1 BUN/Creatinine Ratio 39.2 Random Glucose 165 mg/dl Calcium Level 8.6 mg/dl Phosphorus Level 3.0 mg/dl Magnesium Level 1.8 mg/dl Test 11/08/17 15:31 Bedside Glucose 202 mg/dl Diagnostic Results IMPRESSION: 1. Small left apical pneumothorax with left-sided chest tube in place projected superiorly adjacent to the left lung apex. Mild associated subcutaneous emphysema of the chest wall. 2. Cardiomegaly. 3. Patchy left basilar opacities suggest atelectasis. Assessment & Plan S/p LLL wedge resection Abdominal wall cellulitis Colon cancer ANA A-fib HTN Hypothyroidism Plan: Monitor chest tube output Analgesia as needed, at present she is comfortable The frozen section consistent with adenocarcinoma. Uses nocturnal CPAP. Will monitor overnight, if she develops significant symptoms, will place her on CPAP, but would avoid it the first night given fresh lung sutures. Continue Abx, I understand that the cellulitis has been improving Let the ileostomy drain outside, unable to place capture bag in the area. Output decreasing with octreotide. On TPN. Continue Abx, on Zosyn To resume anticoagulation eventually for the a-fib. Critical care time spent with patient, reviewing the chart, discussing with consultants, 30 minutes
[2017-11-08] MEDS: INSULIN GLARGINE SOLOSTAR 100 UNITS/ML 3 ML PEN SC SCH (20:49)
[2017-11-08] MEDS ORDERED: SODIUM CHLORIDE 0.9% 500ML 500 ML IV STA (21:33)
[2017-11-08] MEDS ORDERED: NURSING VERBAL MED ORDER ONE (21:45)
[2017-11-08 22:36] LABS: HEMATOCRIT 27.9 % (37-47)
[2017-11-09] VITALS (53 sets, daily range): BP systolic 70–126; BP diastolic 43–74; PULSE 66–94; TEMP 36.6–37; O2SAT 86–100
[2017-11-09] MEDS ORDERED: SODIUM CHLORIDE 0.9% 500ML 500 ML IV SCH
[2017-11-09] MEDS: ACETAMINOPHEN IV 1,000 MG in EMPTY BAG 0 ML IV SCH ×3 (02:56→18:22)
[2017-11-09] MEDS: PIPERACILL/TAZOBAC IV 4.5 GM in DEXTROSE 5% 100ML 100 ML IV SCH ×3 (03:23→18:22)
[2017-11-09 06:18] LABS: HEMOGLOBIN 9.3 g/dL (12.0-16.0); MEAN CELL VOLUME 80.3 fL (80-100); MEAN CORPUSCULAR HEMOGLOBIN 25.8 pg (25-34); MEAN CORPUSCULAR HGB CONC 32.1 g/dl (32-36); MEAN PLATELET VOLUME 9.3 fL (7.4-10.4); PLATELET COUNT 338 K/uL (130-400); RED CELL DISTRIBUTION WIDTH CV 15.3 % (11.5-14.5); RED CELL DISTRIBUTION WIDTH SD 45.1 fL (36.4-46.3); WHITE BLOOD COUNT 8.62 K/uL (4.8-10.8)
[2017-11-09 06:45] LABS: CALCIUM 8.3 mg/dl (8.5-10.1); CREATININE 0.58 mg/dl (0.60-1.20); PHOSPHORUS 3.2 mg/dl (2.5-4.9); POTASSIUM 4.1 mmol/L (3.5-5.1)
[2017-11-09] MEDS: LEVOTHYROXINE 200 MCG TAB PO SCH (06:53)
[2017-11-09] MEDS: OCTREOTIDE ACETATE 100 MCG/ML VIAL SQ SCH ×3 (06:54→21:33)
[2017-11-09] MEDS: ENOXAPARIN 40 MG/0.4 ML SYR SQ SCH (06:54)
--- NOTE | 2017-11-09 07:02 | DIAGNOSTIC IMAGING REPORT ---
CHEST ONE VIEW PORTABLE CLINICAL HISTORY: LLL wedge resection COMPARISON STUDY: 11/08/2017 FINDINGS: Left apical pneumothorax appears smaller currently measuring 6 mm. The left-sided chest tube remains unchanged in position. There is a right-sided PICC catheter unchanged in position. The heart remains enlarged. Mild interstitial prominence remains unchanged from the prior study. There is slight improvement in aeration of the left lung base. IMPRESSION: 1. Postsurgical changes 2. Interval decrease in the size of left apical pneumothorax which currently measures 6 mm. 3. Slight improvement in the aeration of the left lung base Electronically signed by: Cameron Browning M.D. 11/09/2017 7:01 AM Dictated Date/Time: 11/09/2017 6:59 AM
--- NOTE | 2017-11-09 08:05 | DIAGNOSTIC IMAGING REPORT ---
SINGLE VIEW CHEST CLINICAL HISTORY: Chest tube removal. FINDINGS: An AP, portable, upright chest radiograph is compared to study performed are the same day 11/09/2017. The examination is degraded by portable technique and patient rotation. A right PICC line is unchanged in position. The heart is enlarged and there is atherosclerotic calcification of the thoracic aorta. The pulmonary vasculature is noncongested. A left-sided chest tube has been removed. A tiny left apical pneumothorax persists. Bibasilar atelectasis is noted. The lungs are otherwise clear. No large pleural effusion is seen. The skeletal structures are osteopenic. The bony thorax is grossly intact. IMPRESSION: A left-sided chest tube has been removed. A trace left apical pneumothorax persists. Electronically signed by: Tacho Delatorre M.D. 11/09/2017 8:03 AM Dictated Date/Time: 11/09/2017 8:01 AM
--- NOTE | 2017-11-09 08:18 | Surgery Progress Note ---
Surgery Progress Note Date of Service Nov 09, 2017. Subjective No complaints appears to have tolerated VATS well, chest tube removed this AM Objective Vital Signs: Date Time Temp Pulse Resp B/P (MAP) Pulse Ox O2 Delivery O2 Flow Rate FiO2 11/09/17 04:00 98 Nasal Cannula 2.0 11/09/17 04:00 36.7 76 21 80/48 (59) 11/09/17 03:45 83 20 90/49 (63) 11/09/17 03:31 79 22 77/51 (60) 98 11/09/17 03:16 81 24 85/47 (60) 98 11/09/17 03:01 78 27 86/52 (63) 99 11/09/17 02:46 83 26 89/54 (66) 99 11/09/17 02:40 79 17 97/61 (73) 100 11/09/17 02:31 77 20 75/48 (57) 99 11/09/17 02:15 76 21 81/50 (60) 11/09/17 02:00 80 16 78/49 (59) 11/09/17 01:46 77 21 78/43 (55) 99 11/09/17 01:30 75 25 82/49 (60) 97 11/09/17 01:16 66 24 83/56 (65) 100 11/09/17 01:00 85 22 100/51 (67) 100 11/09/17 00:45 80 21 78/45 (56) 11/09/17 00:31 68 17 72/49 (57) 99 11/09/17 00:16 79 18 72/43 (53) 99 11/09/17 00:01 73 17 70/44 (53) 100 11/08/17 23:59 99 Nasal Cannula 2.0 11/08/17 22:31 77 16 68/38 (48) 96 Room Air 11/08/17 22:01 73 18 71/37 (48) 95 Room Air 11/08/17 21:58 78 21 75/34 (48) 97 Room Air 11/08/17 21:57 74 21 63/35 (44) 99 Room Air 11/08/17 21:40 85 12 83/33 (50) 97 Room Air 11/08/17 21:40 78 16 98 11/08/17 21:28 72 15 65/37 (46) 93 Room Air 11/08/17 20:00 36.4 81 19 86/36 (53) 93 Room Air 11/08/17 20:00 98 Room Air 11/08/17 19:00 82 14 85/41 (56) 98 Room Air 11/08/17 18:01 36.4 18 86/45 (59) 98 Room Air 11/08/17 17:05 81 17 90/58 100 Nasal Cannula 4 11/08/17 16:55 80 14 105/66 98 Nasal Cannula 4 11/08/17 16:45 36.6 78 17 93/64 100 Nasal Cannula 4 11/08/17 16:35 97 17 97/63 98 Nasal Cannula 4 11/08/17 16:25 78 21 98/60 98 Nasal Cannula 4 11/08/17 16:15 80 15 87/66 100 Nasal Cannula 4 11/08/17 16:05 85 20 97/63 100 Nasal Cannula 4 11/08/17 15:55 85 15 91/64 100 Nasal Cannula 4 11/08/17 15:45 85 18 83/65 96 Nebulizer 8 11/08/17 15:35 86 27 90/63 96 Oxymask 10 11/08/17 15:35 72 20 100 Mask 10.0 11/08/17 15:29 36.3 75 24 105/67 96 Oxymask 10 Abdomen: soft, + pertinent finding (erythema resolving) Laboratory Results: Results Past 24 Hours Test 11/08/17 13:53 11/08/17 15:31 11/08/17 18:07 11/08/17 20:02 Range/Units Bedside Glucose 168 202 271 216 70-90 mg/dl Test 11/08/17 22:30 11/09/17 05:57 11/09/17 06:00 Range/Units Hemoglobin 9.0 9.3 12.0-16.0 g/dL Hematocrit 27.9 29.0 37-47 % White Blood Count 8.62 4.8-10.8 K/uL Red Blood Count 3.61 4.2-5.4 M/uL Mean Corpuscular Volume 80.3 80-100 fL Mean Corpuscular Hemoglobin 25.8 25-34 pg Mean Corpuscular Hemoglobin Concent 32.1 32-36 g/dl RDW Standard Deviation 45.1 36.4-46.3 fL RDW Coefficient of Variation 15.3 11.5-14.5 % Platelet Count 338 130-400 K/uL Mean Platelet Volume 9.3 7.4-10.4 fL Sodium Level 136 136-145 mmol/L Potassium Level 4.1 3.5-5.1 mmol/L Chloride Level 103 98-107 mmol/L Carbon Dioxide Level 28 21-32 mmol/L Anion Gap 5.0 3-11 mmol/L Blood Urea Nitrogen 27 7-18 mg/dl Creatinine 0.58 0.60-1.20 mg/dl Est Creatinine Clear Calc Drug Dose 115.4 ml/min Estimated GFR () 122.0 Estimated GFR (Non- 105.2 BUN/Creatinine Ratio 46.9 10-20 Random Glucose 175 70-99 mg/dl Calcium Level 8.3 8.5-10.1 mg/dl Phosphorus Level 3.2 2.5-4.9 mg/dl Magnesium Level 1.9 1.8-2.4 mg/dl Bedside Glucose 173 70-90 mg/dl Microbiology Results 11/08/17 MRSA DNA Surveillance Screen - Final, Complete Specimen Negative for MRSA by DNA Probe Assessment & Plan loop ileostomy for LAR s/p thoracoscopy for biopsy LLL lesion skin condition much improved, cont TPN, clear liquids plan for ileostomy reversal next week
[2017-11-09] MEDS: ERYTHROMYCIN OP OINT 5 MG/GM 3.5 GM TUBE OP SCH ×4 (09:00→21:30)
--- NOTE | 2017-11-09 09:11 | PROGRESS NOTE ---
DATE: 11/09/2017 SUBJECTIVE: Ms. Bernard is seen today. She is in intensive care unit. She complains of some mild discomfort. We removed her chest tube which had very little drainage and no air leak. I am quite happy with her x-ray. She has had a stable night from my perspective. On 2 liters, she has been 99% saturation. Her chest tube after removal of the x-ray shows a very tiny pneumothorax, but otherwise I think that she looks quite good. She does have what appears to be better aeration in the left base. I think she should be ready for her procedure by Dr. Rogers, next week.
[2017-11-09] MEDS: KETOROLAC TROMETHAMINE 15 MG/ML VIAL IV. SCH ×4 (09:33→23:34)
[2017-11-09] MEDS: IPRATROPIUM BROMIDE/ALBUTEROL respimat INH INH SCH ×4 (09:34→21:30)
[2017-11-09] MEDS: LACTOBACILLUS ACIDOPHILUS (FLORANEX) TAB PO SCH ×3 (09:37→21:29)
[2017-11-09] MEDS: LORATADINE 10 MG TAB PO SCH (09:37)
[2017-11-09] MEDS: FUROSEMIDE 20 MG TAB PO SCH (09:37)
[2017-11-09] MEDS: FAMOTIDINE 20 MG TAB PO SCH (09:38)
[2017-11-09] MEDS: POTASSIUM CHLORIDE 10 MEQ TABCR PO SCH (09:38)
[2017-11-09] MEDS: MAGNESIUM OXIDE 400 MG TAB PO SCH (09:39)
[2017-11-09] MEDS: FLUCONAZOLE 100 MG TAB PO SCH (09:39)
[2017-11-09] MEDS: INSULIN ASPART 100 UNITS/ML 3 ML PEN SC SCH ×4 (09:44→21:00)
[2017-11-09] MEDS ORDERED: PHARMACY GLYCEMIC MGMT CONSULT PRN (09:45)
--- NOTE | 2017-11-09 10:43 | Anesthesiology Progress Note ---
Anesthesia Post Op Note Date & Time Nov 09, 2017 at 10:42 Vital Signs Pain Intensity: 2 Vital Signs Past 12 Hours Date Time Temp Pulse Resp B/P (MAP) Pulse Ox O2 Delivery O2 Flow Rate FiO2 11/09/17 04:00 98 Nasal Cannula 2.0 11/09/17 04:00 36.7 76 21 80/48 (59) 11/09/17 03:45 83 20 90/49 (63) 11/09/17 03:31 79 22 77/51 (60) 98 11/09/17 03:16 81 24 85/47 (60) 98 11/09/17 03:01 78 27 86/52 (63) 99 11/09/17 02:46 83 26 89/54 (66) 99 11/09/17 02:40 79 17 97/61 (73) 100 11/09/17 02:31 77 20 75/48 (57) 99 11/09/17 02:15 76 21 81/50 (60) 11/09/17 02:00 80 16 78/49 (59) 11/09/17 01:46 77 21 78/43 (55) 99 11/09/17 01:30 75 25 82/49 (60) 97 11/09/17 01:16 66 24 83/56 (65) 100 11/09/17 01:00 85 22 100/51 (67) 100 11/09/17 00:45 80 21 78/45 (56) 11/09/17 00:31 68 17 72/49 (57) 99 11/09/17 00:16 79 18 72/43 (53) 99 11/09/17 00:01 73 17 70/44 (53) 100 11/08/17 23:59 99 Nasal Cannula 2.0 Notes Mental Status: alert / awake / arousable, participated in evaluation Pt Amnestic to Procedure: Yes Nausea / Vomiting: adequately controlled Pain: adequately controlled Airway Patency, RR, SpO2: stable & adequate BP & HR: stable & adequate Hydration State: stable & adequate Anesthetic Complications: no major complications apparent Awake, alert no C/O pain. Satisfied with care. VSS
--- NOTE | 2017-11-09 10:49 | Progress Note ---
Subjective Date of Service: Nov 09, 2017. Subjective Pt evaluation today including: conversation w/ patient, physical exam, chart review, lab review pt seen in followup, in ICU post op lung mass biopsy, chest tube placement. tolerated well. path pending. chest tube now out, min pain at site but denies cp , sob, wheeze. States she is to be transferred out of ICU later today. no f/c. remains on abx for abd wall cellulitis, for reversal ostomry this admission. remains on tpn, picc in place. wbc nml today. she denies any abd wall pain. tolerating abx. blood cultures remain negative. all remaining ros reviewed and are negative. Problem List Medical Problems: (1) Abdominal pain Status: Acute (2) Abscess of labia majora Status: Acute (3) Acute vomiting Status: Acute (4) Cellulitis of labia majora Status: Acute (5) Hyperglycemia Status: Acute (6) Hyperglycemia due to type 2 diabetes mellitus Status: Acute (7) Hypertension Status: Acute (8) Low back pain Status: Acute (9) Morbid obesity Status: Acute (10) New onset a-fib Status: Acute (11) Pulmonary nodule Status: Acute (12) Rectal bleed Status: Acute (13) Rectal bleeding Status: Acute (14) Rectal cancer Status: Acute (15) Sepsis Status: Acute (16) Shortness of breath Status: Acute (17) Skin abscess Status: Acute (18) Urinary tract infection Status: Acute Objective Vital Signs Date Time Temp Pulse Resp B/P (MAP) Pulse Ox O2 Delivery O2 Flow Rate FiO2 11/09/17 04:00 98 Nasal Cannula 2.0 11/09/17 04:00 36.7 76 21 80/48 (59) 11/09/17 03:45 83 20 90/49 (63) 11/09/17 03:31 79 22 77/51 (60) 98 11/09/17 03:16 81 24 85/47 (60) 98 11/09/17 03:01 78 27 86/52 (63) 99 11/09/17 02:46 83 26 89/54 (66) 99 11/09/17 02:40 79 17 97/61 (73) 100 11/09/17 02:31 77 20 75/48 (57) 99 11/09/17 02:15 76 21 81/50 (60) 11/09/17 02:00 80 16 78/49 (59) 11/09/17 01:46 77 21 78/43 (55) 99 11/09/17 01:30 75 25 82/49 (60) 97 11/09/17 01:16 66 24 83/56 (65) 100 11/09/17 01:00 85 22 100/51 (67) 100 11/09/17 00:45 80 21 78/45 (56) 11/09/17 00:31 68 17 72/49 (57) 99 11/09/17 00:16 79 18 72/43 (53) 99 11/09/17 00:01 73 17 70/44 (53) 100 11/08/17 23:59 99 Nasal Cannula 2.0 11/08/17 22:31 77 16 68/38 (48) 96 Room Air 11/08/17 22:01 73 18 71/37 (48) 95 Room Air 11/08/17 21:58 78 21 75/34 (48) 97 Room Air 11/08/17 21:57 74 21 63/35 (44) 99 Room Air 11/08/17 21:40 85 12 83/33 (50) 97 Room Air 11/08/17 21:40 78 16 98 11/08/17 21:28 72 15 65/37 (46) 93 Room Air 11/08/17 20:00 36.4 81 19 86/36 (53) 93 Room Air 11/08/17 20:00 98 Room Air 11/08/17 19:00 82 14 85/41 (56) 98 Room Air 11/08/17 18:01 36.4 18 86/45 (59) 98 Room Air 11/08/17 17:05 81 17 90/58 100 Nasal Cannula 4 11/08/17 16:55 80 14 105/66 98 Nasal Cannula 4 11/08/17 16:45 36.6 78 17 93/64 100 Nasal Cannula 4 11/08/17 16:35 97 17 97/63 98 Nasal Cannula 4 11/08/17 16:25 78 21 98/60 98 Nasal Cannula 4 11/08/17 16:15 80 15 87/66 100 Nasal Cannula 4 11/08/17 16:05 85 20 97/63 100 Nasal Cannula 4 11/08/17 15:55 85 15 91/64 100 Nasal Cannula 4 11/08/17 15:45 85 18 83/65 96 Nebulizer 8 11/08/17 15:35 86 27 90/63 96 Oxymask 10 11/08/17 15:35 72 20 100 Mask 10.0 11/08/17 15:29 36.3 75 24 105/67 96 Oxymask 10 Physical Exam General Appearance: WD/WN, no apparent distress Eyes: normal inspection, EOMI Neck: supple Respiratory/Chest: lungs clear, normal breath sounds, no respiratory distress, + decreased breath sounds Cardiovascular: regular rate, rhythm, no edema Abdomen: non tender, soft Extremities: non-tender, no pedal edema Neurologic/Psychiatric: alert, oriented x 3 Skin: normal color Comments: abd wall erythema continues to improve, no drainage, no warmth, non tender. Laboratory Results Item Value Date Time Blood Culture - Preliminary Resulted 11/04/17 1404 Blood NO GROWTH TO DATE. Blood Culture - Preliminary Resulted 11/04/17 1318 Blood NO GROWTH TO DATE. Last 24 Hours Test 11/08/17 13:53 11/08/17 15:31 11/08/17 18:07 11/08/17 20:02 Bedside Glucose 168 mg/dl 202 mg/dl 271 mg/dl 216 mg/dl Test 11/08/17 22:30 11/08/17 23:59 11/09/17 05:57 11/09/17 06:00 Hemoglobin 9.0 g/dL 9.3 g/dL Hematocrit 27.9 % 29.0 % Bedside Glucose 142 mg/dl 173 mg/dl White Blood Count 8.62 K/uL Red Blood Count 3.61 M/uL Mean Corpuscular Volume 80.3 fL Mean Corpuscular Hemoglobin 25.8 pg Mean Corpuscular Hemoglobin Concent 32.1 g/dl RDW Standard Deviation 45.1 fL RDW Coefficient of Variation 15.3 % Platelet Count 338 K/uL Mean Platelet Volume 9.3 fL Sodium Level 136 mmol/L Potassium Level 4.1 mmol/L Chloride Level 103 mmol/L Carbon Dioxide Level 28 mmol/L Anion Gap 5.0 mmol/L Blood Urea Nitrogen 27 mg/dl Creatinine 0.58 mg/dl Est Creatinine Clear Calc Drug Dose 115.4 ml/min Estimated GFR () 122.0 Estimated GFR (Non- 105.2 BUN/Creatinine Ratio 46.9 Random Glucose 175 mg/dl Calcium Level 8.3 mg/dl Phosphorus Level 3.2 mg/dl Magnesium Level 1.9 mg/dl Assessment and Plan (1) Panniculitis Assessment & Plan: would conitnue current abx for min 10 days. improving, await ostomy reversal.
--- NOTE | 2017-11-09 11:01 | Pharmacy Progress Note ---
Glycemic Control Progress Note Date of Service Nov 09, 2017. Scope Glycemic Pharmacist consulted for glycemic control to write orders per [facility] inpatient glycemic control protocol. Objective Accuchecks BSG (last 24hrs): Test 11/08/17 13:53 11/08/17 15:31 11/08/17 18:07 11/08/17 20:02 Bedside Glucose 168 mg/dl (70-90) 202 mg/dl (70-90) 271 mg/dl (70-90) 216 mg/dl (70-90) Test 11/08/17 23:59 11/09/17 05:57 11/09/17 06:00 Bedside Glucose 142 mg/dl (70-90) 173 mg/dl (70-90) Random Glucose 175 mg/dl (70-99) HbA1c: 10.3% 10/04/17 Recent Pertinent Medications The patient is currently receiving: * Basal insulin: Lantus 20 units every 24 hours - dosed at bedtime * Correctional Insulin: Novolog Correction per scale ACHS Goal Range: Low 80 mg/dL - High 150 mg/dL Correction Factor: 25 mg/dL/unit * Prandial insulin: Per carb ratio of 1 unit per -- grams CHO consumed Outpatient Anti-Diabetic Meds Lantus 15 units Q HS Novolog SSI Assessment & Plan ASSESSMENT: 11/09/17 * BSGs have ranged 142-271 over the last 24 hrs * Patient went to OR yesterday for thorascopic resection of LLL, no steroids administered in OR per Anesth record * BSGs above goal yesterday likely to surgical stress as well as omitted correctional insulin doses while in OR and post-OR * BSGs did improve this AM however * Will increase the proportion of insulin in next bag of TPN relative to dextrose content and reduce the dextrose in TPN today * Current bag of TPN has 1 unit per 4.4 grams dextrose; next bag will contain 1 unit per 3.9 grams dextrose * Will alter Novolog scale to allow for a few additional units of correction as well * Lantus dose will not be altered as it already exceeds home dose - plus titrating basal insulin is difficult in the setting of continuous dextrose administration, she may be at risk for hypoglycemia if Lantus titrated up and TPN cut abruptly PLAN FOR INPATIENT GLYCEMIC CONTROL: * 38 units insulin in today's bag of TPN containing 150gm dextrose * Continuing Lantus 20 units SQ Q HS * Changing correction factor to 20 mg/dl/unit * No carb ratio needed at this time as pt remains NPO * Changing goal range to Low 110 mg/dL - High 140 mg/dL * Please note that the plan above was derived based on current level of insulin resistance and hospital stress. These recommendations are appropriate for inpatient admission only. Plan of care upon discharge will need to be reassessed to avoid potential outpatient hypo/hyperglycemia. Thank you.
[2017-11-09] MEDS: METOPROLOL SUCC 50MG EXT REL TAB PO SCH (11:15)
[2017-11-09] MEDS: CHOLESTYRAMINE LIGHT 4 GM PKT PO SCH (12:56)
[2017-11-09] MEDS: LISINOPRIL 5 MG TAB PO SCH (12:56)
--- NOTE | 2017-11-09 15:14 | Hospitalist Progress Note ---
Hospitalist Progress Note Date of Service Nov 09, 2017. Subjective Pt evaluation today including: conversation w/ patient, physical exam, chart review, lab review, review of studies, conversation w/ security sales consultant (spoke with general surgery), review of inpatient medication list Pain: None PO Intake: Clears Voiding: steinberg catheter in place Patient reports feeling well. Chest tube was removed this morning. She denies any pain in her chest at rest. She does have some left lateral pain where her chest tube was when she takes deep breaths or coughs. She currently denies any shortness of breath or persistent cough. She does note some wheezing. She denies any abdominal pain currently except when her dressings are changed. The patient denies fevers, chills, sweats, chest pain, palpitations, claudication, cough, shortness of breath, nausea, vomiting, abdominal pain, dysuria, hematuria , urinary retention, paralysis, weakness, numbness and tingling. Additional Comments: See HPI for pertinent positives and negatives. All other systems reviewed and negative. Objective Vital Signs Date Time Temp Pulse Resp B/P (MAP) Pulse Ox O2 Delivery O2 Flow Rate FiO2 11/09/17 13:44 36.6 74 17 99 2.0 11/09/17 13:01 74 17 94/62 (73) 99 11/09/17 13:00 81 18 11/09/17 12:30 86 17 103/59 (74) 98 11/09/17 12:15 36.6 76 19 87/59 (68) 99 11/09/17 12:01 79 22 88/59 (69) 95 11/09/17 12:00 81 22 97 11/09/17 11:45 83 16 105/63 (77) 98 11/09/17 11:31 94 17 91/64 (73) 99 11/09/17 11:30 85 21 98 11/09/17 11:16 90 24 101/62 (75) 100 11/09/17 11:04 99 Nasal Cannula 2.0 11/09/17 11:00 81 17 103/63 (76) 99 11/09/17 10:46 94 20 99/58 (72) 98 Nasal Cannula 2.0 11/09/17 10:31 94 18 126/52 (76) 98 11/09/17 10:17 84 17 109/57 (74) 100 11/09/17 10:01 78 29 103/74 (84) 100 Nasal Cannula 2.0 11/09/17 10:00 88 18 99 11/09/17 09:46 93 23 111/59 (76) 100 11/09/17 09:31 84 22 96/60 (72) 99 11/09/17 09:16 36.6 80 24 98/62 (74) 99 Nasal Cannula 2.0 11/09/17 09:00 99 Nasal Cannula 2.0 11/09/17 09:00 80 23 106/58 (74) 11/09/17 08:46 93 19 98/62 (74) 97 11/09/17 08:30 87 23 97/70 (79) 94 11/09/17 08:16 88 25 97/62 (74) 100 11/09/17 08:00 76 27 102/64 (77) 11/09/17 07:45 87 19 100/62 (75) 95 11/09/17 07:31 88 27 92/54 (67) 100 11/09/17 07:17 77 27 110/52 (71) 100 11/09/17 07:01 91 24 107/59 (75) 86 11/09/17 07:00 83 32 11/09/17 04:00 98 Nasal Cannula 2.0 11/09/17 04:00 36.7 76 21 80/48 (59) 11/09/17 03:45 83 20 90/49 (63) 11/09/17 03:31 79 22 77/51 (60) 98 11/09/17 03:16 81 24 85/47 (60) 98 11/09/17 03:01 78 27 86/52 (63) 99 11/09/17 02:46 83 26 89/54 (66) 99 11/09/17 02:40 79 17 97/61 (73) 100 11/09/17 02:31 77 20 75/48 (57) 99 11/09/17 02:15 76 21 81/50 (60) 11/09/17 02:00 80 16 78/49 (59) 11/09/17 01:46 77 21 78/43 (55) 99 11/09/17 01:30 75 25 82/49 (60) 97 11/09/17 01:16 66 24 83/56 (65) 100 11/09/17 01:00 85 22 100/51 (67) 100 11/09/17 00:45 80 21 78/45 (56) 11/09/17 00:31 68 17 72/49 (57) 99 11/09/17 00:16 79 18 72/43 (53) 99 11/09/17 00:01 73 17 70/44 (53) 100 11/08/17 23:59 99 Nasal Cannula 2.0 11/08/17 22:31 77 16 68/38 (48) 96 Room Air 11/08/17 22:01 73 18 71/37 (48) 95 Room Air 11/08/17 21:58 78 21 75/34 (48) 97 Room Air 11/08/17 21:57 74 21 63/35 (44) 99 Room Air 11/08/17 21:40 85 12 83/33 (50) 97 Room Air 11/08/17 21:40 78 16 98 11/08/17 21:28 72 15 65/37 (46) 93 Room Air 11/08/17 20:00 36.4 81 19 86/36 (53) 93 Room Air 11/08/17 20:00 98 Room Air 11/08/17 19:00 82 14 85/41 (56) 98 Room Air 11/08/17 18:01 36.4 18 86/45 (59) 98 Room Air 11/08/17 17:05 81 17 90/58 100 Nasal Cannula 4 11/08/17 16:55 80 14 105/66 98 Nasal Cannula 4 11/08/17 16:45 36.6 78 17 93/64 100 Nasal Cannula 4 11/08/17 16:35 97 17 97/63 98 Nasal Cannula 4 11/08/17 16:25 78 21 98/60 98 Nasal Cannula 4 11/08/17 16:15 80 15 87/66 100 Nasal Cannula 4 11/08/17 16:05 85 20 97/63 100 Nasal Cannula 4 11/08/17 15:55 85 15 91/64 100 Nasal Cannula 4 11/08/17 15:45 85 18 83/65 96 Nebulizer 8 11/08/17 15:35 86 27 90/63 96 Oxymask 10 11/08/17 15:35 72 20 100 Mask 10.0 11/08/17 15:29 36.3 75 24 105/67 96 Oxymask 10 Physical Exam Notes: General appearance: +Morbidly obese. Well-developed, well-nourished, no apparent distress Head: Normocephalic, atraumatic Eyes: Normal inspection, PERRL, EOMI ENT: Normal ENT inspection, hearing grossly normal, pharynx normal Neck: Supple, no JVD, trachea midline Respiratory/Chest: +Decreased breath sounds, L>R. On 2L NC. Lungs clear to auscultation, no respiratory distress Cardiovascular: +Irregularly irregular. No gallop, no murmur Abdomen/GI: +Erythema of lower abdomen especially in pannus folds. RLQ ileostomy w/o bag, some drainage. Small open wound in pannus fold with slough. Another smaller open wound just inferior to that. Midline incision w/Steri Strips. Lower quadrants TTP. Normal bowel sounds, soft Extremities/Musculoskeletal: Normal inspection, no calf tenderness, no pedal edema Neurological/Psych: Alert, normal mood/affect, oriented x 3 Skin: Normal color, warm/dry, no rash Laboratory Results Last 24 Hours Test 11/08/17 15:31 11/08/17 18:07 11/08/17 20:02 11/08/17 22:30 Bedside Glucose 202 mg/dl 271 mg/dl 216 mg/dl Hemoglobin 9.0 g/dL Hematocrit 27.9 % Test 11/08/17 23:59 11/09/17 05:57 11/09/17 06:00 Bedside Glucose 142 mg/dl 173 mg/dl White Blood Count 8.62 K/uL Red Blood Count 3.61 M/uL Hemoglobin 9.3 g/dL Hematocrit 29.0 % Mean Corpuscular Volume 80.3 fL Mean Corpuscular Hemoglobin 25.8 pg Mean Corpuscular Hemoglobin Concent 32.1 g/dl RDW Standard Deviation 45.1 fL RDW Coefficient of Variation 15.3 % Platelet Count 338 K/uL Mean Platelet Volume 9.3 fL Sodium Level 136 mmol/L Potassium Level 4.1 mmol/L Chloride Level 103 mmol/L Carbon Dioxide Level 28 mmol/L Anion Gap 5.0 mmol/L Blood Urea Nitrogen 27 mg/dl Creatinine 0.58 mg/dl Est Creatinine Clear Calc Drug Dose 115.4 ml/min Estimated GFR () 122.0 Estimated GFR (Non- 105.2 BUN/Creatinine Ratio 46.9 Random Glucose 175 mg/dl Calcium Level 8.3 mg/dl Phosphorus Level 3.2 mg/dl Magnesium Level 1.9 mg/dl Diagnostic Results Reviewed the following studies and agree with interpretation as follows: SINGLE VIEW CHEST CLINICAL HISTORY: Chest tube removal. FINDINGS: An AP, portable, upright chest radiograph is compared to study performed are the same day 11/09/2017. The examination is degraded by portable technique and patient rotation. A right PICC line is unchanged in position. The heart is enlarged and there is atherosclerotic calcification of the thoracic aorta. The pulmonary vasculature is noncongested. A left-sided chest tube has been removed. A tiny left apical pneumothorax persists. Bibasilar atelectasis is noted. The lungs are otherwise clear. No large pleural effusion is seen. The skeletal structures are osteopenic. The bony thorax is grossly intact. IMPRESSION: A left-sided chest tube has been removed. A trace left apical pneumothorax persists. 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 Abdominal wall cellulitis, possible abscess in the setting of morbid obesity and severe protein calorie malnutrition--ongoing - Infectious disease following, appreciate recs: Continue current abx for minimum of 10 days - Pt previously on vancomycin but developed diffuse rash so this was d/c'd - Continue Zosyn. Day # 6 of 10 - General surgery following, appreciate recs: Can continue clear liquid diet. Tentatively plan for ileostomy reversal and Mediport placement on Sunday morning (11/13). 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 Frozen section looks like metastatic adenocarcinoma , pathology pending - Chest tube removed 11/09, doing well, transfer out of ICU - Oncology consulted, appreciate recs: Dr. Quintana will follow Atrial fibrillation--stable, rate controlled - Continue metoprolol succinate 50 mg daily - Holding Eliquis (last taken 11/04) HTN, HLD - Continue lisinopril 5 mg PO qd, metoprolol as above, Lipitor 20 mg PO hs DM II--HgbA1c 10.3 on 10/04/17 - She's been on various diabetic regimens over the last few months - Lantus 20 units SC hs - Insulin sliding scale - Check BSGs q ac and qhs - Pharmacy consulted for glycemic control Asthma - Cont Combivent and Singulair Hypothyroidism - Synthroid 1200 g PO qd Obstructive sleep apnea - Did not use CPAP last night due to wedge resection, ok to resume tonight DVT prophylaxis -SCDs Code Status -Level I, FULL RESUSCITATION STATUS Disposition: -Tentative surgery 11/13 -From [facility], case management following
[2017-11-09] MEDS ORDERED: CUSTOM CENTRAL PN 1 BAG IV SCH (16:00)
--- NOTE | 2017-11-09 19:31 | ONCOLOGY CONSULTATION ---
DATE OF CONSULTATION: 11/09/2017 REASON FOR CONSULTATION: A 51-year-old female patient with established adenocarcinoma of the rectum recently underwent wedge resection for pulmonary nodule. HISTORY OF PRESENT ILLNESS: Luisa is a pleasant 51-year-old morbidly obese female who I have been asked to evaluate after she was admitted to [facility] on 11/04/2017 because of progressive cellulitis of the abdominal wall. Ms. Bernard was diagnosed with adenocarcinoma of the rectum earlier this year by colonoscopy. She had initially presented with rectal bleeding, underwent colonoscopy and subsequent biopsy. She was then referred to Dr. John Rogers and took her to the operating room on 10/18/2017 for low anterior resection. Unfortunately, after preoperative examination revealed the tumor was too large for LAR and proceeded to perform ileostomy for diversion. Unfortunately, the ileostomy was brought out over a fold of tissue which inhibited adequate fecal output. This unfortunately resulted in a cellulitis which prompted hospitalization. In the meantime, radiographic studies revealed a left lower lobe mass, which had increased in size from previous radiograph. Dr. Marcial Delatorre was consulted and had the patient undergo navigational bronchoscopy and left thoracoscopy with fluoroscopy directed wedge resection of the left lower lobe mass. Biopsies of this mass are pending. Primary service is requesting oncologic followup for what appears to be either metastatic colorectal cancer or to primary neoplasia. PAST MEDICAL HISTORY: Significant for type 2 diabetes mellitus, dyslipidemia, gastroesophageal reflux disease, hepatitis, hypertension, hypothyroidism, mitral regurgitation, morbid obesity and obstructive sleep apnea as well as atrial fibrillation. PAST SURGICAL HISTORY: Includes carpal tunnel surgery, hysterectomy, tonsillectomy and adenoidectomy, tubal ligation, left total knee arthroplasty. MEDICATIONS: Prior to admission include Eliquis 5 mg p.o. b.i.d., atorvastatin 20 mg p.o. at bedtime, cholestyramine 1 packet p.o. every day, ciprofloxacin 500 mg b.i.d., famotidine 20 mg p.o. every day, fluconazole 100 mg p.o. every day, Breo Ellipta 200/25 mcg per inhalation 1 inhalation every a.m.., Lasix 20 mg p.o. daily, NovoLog p.r.n. dose, insulin Glargine 15 units subQ every day, Combivent 1 puff inhaled q.i.d., levothyroxine dose unknown, lisinopril 5 mg p.o. every day, loratadine 10 mg p.o. every day, magnesium oxide 400 mg p.o. daily, metoprolol 50 mg p.o. every day, metronidazole 500 mg p.o. t.i.d., Singulair 10 mg p.o. at bedtime, potassium chloride 10 mEq p.o. daily. ALLERGIES: DAPTOMYCIN, CLINDAMYCIN, SULFA DRUGS, BEE STINGS AND DULAGLUTIDE. SOCIAL HISTORY: The patient is disabled, lives with her family. She is , nonsmoker, nondrinker. FAMILY HISTORY: Positive for diabetes mellitus, heart disease, pulmonary disease, hypertension and seizure disorder. REVIEW OF SYSTEMS: CONSTITUTIONAL: As per HPI, diffuse erythema surrounding the ileostomy site consistent with cellulitis. Negative for fevers, chills or night sweats. Presently, the patient is not anorexic or losing weight presently. SKIN: Again no other lesions or history of dermatoses other than previously diagnosed cellulitis. HEENT: Negative for headaches, lightheadedness or dizziness. No visual or hearing deficits. No sinus symptoms, sore throat or dysphagia. LYMPH: No history of lymphoproliferative disorder. CARDIAC: Negative for angina or palpitations. PULMONARY: Negative for shortness of breath, dyspnea or orthopnea. No cough or hemoptysis. GASTROINTESTINAL: No current abdominal pain, nausea, vomiting, diarrhea or constipation, hematochezia or melena of stools. GENITOURINARY: No hematuria, dysuria, urinary incontinence. PSYCHIATRIC: Negative for anxiety, depression or psychoses. ENDOCRINE: Positive for both the history of diabetes and hypothyroidism. NEUROLOGIC: Negative for seizure, stroke, or migraine headache by history. HEMATOLOGIC: Positive for microcytic anemia. PHYSICAL EXAMINATION: GENERAL: She is a morbidly obese 51-year-old female patient appears a bit older than her stated age. VITAL SIGNS: Temperature 36.6, pulse 74, respiration 17, blood pressure 94/62. SKIN: Pale, warm, dry, noncyanotic without petechia, rash or ecchymosis. Small amounts amount of surrounding erythema involving the ileostomy site. HEENT: Head is atraumatic, normocephalic. Eyes: PERRLA, EOMI. Sclerae nonicteric. No conjunctival injection. Nares patent without rhinorrhea or discharge. No buccal lesions or ulcerations. NECK: Supple. HEART: Regular rate and rhythm. LUNGS: Clear to auscultation bilaterally. ABDOMEN: Obese, soft, nontender, nondistended. Again, surrounding erythema around the ileostomy site. Bowel sounds are hypoactive. EXTREMITIES: No clubbing, cyanosis or edema. MUSCULOSKELETAL: Strength and pulses are equal. NEUROLOGICALLY: He is grossly intact. Cranial nerves II-XII are intact. LABORATORY DATA: WBC count 8620, hemoglobin 9.3, platelet count 338,000. Sodium 136, potassium 4.1, chloride 103, carbon dioxide 28, BUN 27, creatinine 0.58. RADIOGRAPHIC DATA: CT scan of the abdomen and pelvis performed on admission revealing a rim enhancing fluid collection in the presacral region immediately posterior to the low anterior resection at the level of the lower rectum, thought to represent post-surgical reactive fluid versus developing abscess. Borderline enlarged left external iliac lymph nodes, unchanged from prior radiographic examination. Solid pulmonary nodule at the left lower lobe concerning for site of metastasis. This finding was reviewed at the most recent tumor board and determined to be larger than previous. IMPRESSION: 1. Adenocarcinoma of the rectum. 2. Left lower lobe pulmonary nodule status post wedge resection. 3. Abdominal wall cellulitis. 4. Microcytic anemia most likely attributable to iron deficiency. PLAN: I had the pleasure of meeting Luisa at bedside today. I reviewed multiple pages of clinical notes, radiographic reports and lab results prior to seeing her today. The patient carries a diagnosis of adenocarcinoma of the rectum with an enlarging pulmonary nodule which was subsequently removed via wedge resection. Pathology from the lung mass is pending at time of dictation. Therefore, this patient either suffers from metastatic colorectal cancer or has 2 separate primaries. I cannot make definitive recommendations until lung pathology is firmed. Most likely I suspect this nodule represents metastatic disease and therefore would proceed with salvage chemotherapy directed towards colorectal cancer. Usually this includes a combination of oxaliplatin, 5-FU and leucovorin in conjunction with either cetuximab or Avastin. If not already done, we would ask pathology to do a [facility] testing. I would also request Dr. Ken morgan on MediPort insertion sometime during the patient's admission once her cellulitis has cleared adequately to safely proceed. We will continue to follow with Luisa periodically during her hospital stay and we will ensure expedient outpatient followup upon discharge to formulate definitive therapeutic plan. Thank you very much for allowing me to participate in her care. If you have any questions or concerns, feel free to contact me at any time. ALEXA
[2017-11-09] MEDS: OXYCODONE HCL IR 5 MG TAB (IMMEDIATE RELEASE) PO PRN (19:32)
[2017-11-09] MEDS: MONTELUKAST SOD 10 MG TAB PO SCH (21:29)
[2017-11-09] MEDS: ATORVASTATIN 20 MG TAB PO SCH (21:29)
[2017-11-09] MEDS: INSULIN GLARGINE SOLOSTAR 100 UNITS/ML 3 ML PEN SC SCH (21:40)
[2017-11-10] MEDS: ACETAMINOPHEN IV 1,000 MG in EMPTY BAG 0 ML IV SCH ×3 (02:23→18:28)
[2017-11-10] MEDS: PIPERACILL/TAZOBAC IV 4.5 GM in DEXTROSE 5% 100ML 100 ML IV SCH ×3 (02:55→18:50)
[2017-11-10] MEDS: LEVOTHYROXINE 200 MCG TAB PO SCH (06:01)
[2017-11-10] MEDS: ENOXAPARIN 40 MG/0.4 ML SYR SQ SCH (06:03)
[2017-11-10] MEDS: OCTREOTIDE ACETATE 100 MCG/ML VIAL SQ SCH ×3 (06:18→21:49)
[2017-11-10 06:27] LABS: HEMATOCRIT 29.1 % (37-47); HEMOGLOBIN 9.3 g/dL (12.0-16.0); MEAN CELL VOLUME 80.6 fL (80-100); MEAN CORPUSCULAR HEMOGLOBIN 25.8 pg (25-34); MEAN PLATELET VOLUME 9.5 fL (7.4-10.4); PLATELET COUNT 328 K/uL (130-400); RED CELL DISTRIBUTION WIDTH CV 15.4 % (11.5-14.5); RED CELL DISTRIBUTION WIDTH SD 45.2 fL (36.4-46.3); WHITE BLOOD COUNT 9.41 K/uL (4.8-10.8)
[2017-11-10 07:03] LABS: CALCIUM 8.7 mg/dl (8.5-10.1); CREATININE 0.77 mg/dl (0.60-1.20); POTASSIUM 3.9 mmol/L (3.5-5.1)
[2017-11-10 07:09] LABS: PHOSPHORUS 5.3 mg/dl (2.5-4.9)
[2017-11-10 07:23] VITALS: BP 96/66; PULSE 92; TEMP 36.7; O2SAT 96
[2017-11-10] MEDS: INSULIN ASPART 100 UNITS/ML 3 ML PEN SC SCH ×4 (08:00→21:00)
[2017-11-10] MEDS: METOPROLOL SUCC 50MG EXT REL TAB PO SCH (08:15)
--- NOTE | 2017-11-10 08:28 | Hospitalist Progress Note ---
Hospitalist Progress Note Date of Service Nov 10, 2017. Subjective Pt evaluation today including: conversation w/ patient, physical exam, chart review, lab review, review of studies Pain: Minimal abd pain PO Intake: NPO no TPN Voiding: steinberg catheter in place The patient was seen and examined this morning. Pt reports feeling very tired today. She reports abdominal pain is improved and that the region is not nearly as red as it was. She denies any acute complaints today. Discussion was held regarding frozen section of biopsy from thorascopy appeared to be cancerous , and that some pathology reports were not resulted yet. She does not seem to understand this at first, and may not be remembering this from provider to provider. Pt was encouraged to ask questions, she currently understands we think this is a spread of cancer from the rectosigmoid cancer. ROS: 6 point ROS reviewed and otherwise negative. Objective Vital Signs Date Time Temp Pulse Resp B/P (MAP) Pulse Ox O2 Delivery O2 Flow Rate FiO2 11/10/17 07:23 36.7 92 19 96/66 (76) 96 Room Air 11/09/17 23:20 37.0 83 18 104/73 (83) 97 CPAP 11/09/17 23:20 CPAP 11/09/17 22:22 80 93 21 11/09/17 15:47 36.6 90 16 90/62 (71) 91 Room Air 11/09/17 15:45 91 Room Air 11/09/17 13:44 36.6 74 17 99 2.0 11/09/17 13:01 74 17 94/62 (73) 99 11/09/17 13:00 81 18 11/09/17 12:30 86 17 103/59 (74) 98 11/09/17 12:15 36.6 76 19 87/59 (68) 99 11/09/17 12:01 79 22 88/59 (69) 95 11/09/17 12:00 81 22 97 11/09/17 11:45 83 16 105/63 (77) 98 11/09/17 11:31 94 17 91/64 (73) 99 11/09/17 11:30 85 21 98 11/09/17 11:16 90 24 101/62 (75) 100 11/09/17 11:04 99 Nasal Cannula 2.0 11/09/17 11:00 81 17 103/63 (76) 99 11/09/17 10:46 94 20 99/58 (72) 98 Nasal Cannula 2.0 11/09/17 10:31 94 18 126/52 (76) 98 11/09/17 10:17 84 17 109/57 (74) 100 11/09/17 10:01 78 29 103/74 (84) 100 Nasal Cannula 2.0 11/09/17 10:00 88 18 99 11/09/17 09:46 93 23 111/59 (76) 100 11/09/17 09:31 84 22 96/60 (72) 99 11/09/17 09:16 36.6 80 24 98/62 (74) 99 Nasal Cannula 2.0 11/09/17 09:00 99 Nasal Cannula 2.0 11/09/17 09:00 80 23 106/58 (74) 11/09/17 08:46 93 19 98/62 (74) 97 11/09/17 08:30 87 23 97/70 (79) 94 Physical Exam Notes: General Appearance: WD/WN, no apparent distress, + obese (morbidly) Eyes: PERRL, EOMI ENT: hearing grossly normal, pharynx normal, + pertinent finding (MM dry) Neck: supple, no JVD Respiratory/Chest: chest non-tender, lungs clear, no respiratory distress, no accessory muscle use, + pertinent finding (on RA) Cardiovascular: + systolic murmur, + irregularly irregular (rate controlled) Abdomen: + pertinent finding (Obese, + erythematous pannus involving the folds is improving, + RLQ abdominal ostomy without bag on, semi-packed 4x4 gauze, + small necrotic 1x1cm lesion in pannus fold, livan removed from midline incision healing well, +tenderness with minimal palpation although improving.) Extremities: +PICC line RUE, non-tender, no pedal edema, no calf tenderness Neurologic/Psychiatric: alert, normal affect, oriented x 3 Laboratory Results Last 24 Hours Test 11/09/17 12:42 11/09/17 15:32 11/09/17 17:10 11/09/17 20:32 Bedside Glucose 125 mg/dl 97 mg/dl 106 mg/dl Carcinoembryonic Antigen 0.8 ng/ml Test 11/10/17 05:36 White Blood Count 9.41 K/uL Red Blood Count 3.61 M/uL Hemoglobin 9.3 g/dL Hematocrit 29.1 % Mean Corpuscular Volume 80.6 fL Mean Corpuscular Hemoglobin 25.8 pg Mean Corpuscular Hemoglobin Concent 32.0 g/dl RDW Standard Deviation 45.2 fL RDW Coefficient of Variation 15.4 % Platelet Count 328 K/uL Mean Platelet Volume 9.5 fL Sodium Level 135 mmol/L Potassium Level 3.9 mmol/L Chloride Level 102 mmol/L Carbon Dioxide Level 25 mmol/L Anion Gap 8.0 mmol/L Blood Urea Nitrogen 41 mg/dl Creatinine 0.77 mg/dl Est Creatinine Clear Calc Drug Dose 86.8 ml/min Estimated GFR () 102.2 Estimated GFR (Non- 88.2 BUN/Creatinine Ratio 52.7 Random Glucose 96 mg/dl Calcium Level 8.7 mg/dl Phosphorus Level 5.3 mg/dl Magnesium Level 2.0 mg/dl Assessment and Plan 51 yo female here with the surgical site infection of abdominal cellulitis with concern for possible abscess Severe Abdominal wall cellulitis, possible abscess Severe Protein Calorie Malnutrition - ID on board- - Continue Zosyn (started on 11/03), follow wound cultures. Was on cipro/ flagyl prior to admission. - Gen surgical consulted- keeping on clear liquid diet, plans for ileostomy reversal during this admission but they would like cellulitis to be more improved - Tentatively plan for ileostomy reversal and Mediport placement on Sunday morning (11/13) - PICC line inserted on 11/05, TPN started 11/05 per dietary/pharmacy recs - Wound consulted for ostomy site care - hold Eliquis Loop ileostomy - NPO/sips clears; start octreotide to try and decrease ileostomy output, poor function due to obesity - Callands out of midline abdominal incision - healing better, no drainage from wound. 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 Frozen section looks like metastatic adenocarcinoma, pathology pending - Chest tube removed 11/09, doing well, required 1 day stay in the ICU but now out. - Oncology consulted- appreciate recs - Dr. Quintana will follow Atrial fibrillation - maintained on her metoprolol succ 50 mg daily - Holding Eliquis (last taken 11/04) HLD - Lipitor will be continued Hypertension - cont lisinopril 5 mg daily DM II - She's been on various diabetic regimens over the last few months - currently on Tojeo at 15 U will convert this to Lantus 15 U QPM and ISS with accuchecks achs - glycemic pharmacy to help manage with TPN Asthma - Cont Combivent and Singulair Reverse hypothyroidism - she appears clinically euthyroid and she is on a significantly high dose of Synthroid in the chart documented at 1200 g a day obstructive sleep apnea - supply her CPAP Her morbid obesity directly impacts both her wound care her healing and her sleep apnea DVT ppx : SCDs, no chemical anticoagulation at this time CODE STATUS: FULL Dispostion: Anticipated prolonged hospital course due to severity of abdominal cellulitis, needs for improved nutritional status, planned ileostomy reversal and post-op healing. From home, will need CM to assist with dc planning, was from [facility].
[2017-11-10] MEDS: ERYTHROMYCIN OP OINT 5 MG/GM 3.5 GM TUBE OP SCH ×4 (09:00→17:00)
[2017-11-10] MEDS: IPRATROPIUM BROMIDE/ALBUTEROL respimat INH INH SCH ×4 (09:17→20:20)
[2017-11-10] MEDS: LORATADINE 10 MG TAB PO SCH (09:18)
[2017-11-10] MEDS: FUROSEMIDE 20 MG TAB PO SCH (09:19)
[2017-11-10] MEDS: LACTOBACILLUS ACIDOPHILUS (FLORANEX) TAB PO SCH ×3 (09:19→20:20)
[2017-11-10] MEDS: FLUCONAZOLE 100 MG TAB PO SCH (09:19)
[2017-11-10] MEDS: MAGNESIUM OXIDE 400 MG TAB PO SCH (09:20)
[2017-11-10] MEDS: POTASSIUM CHLORIDE 10 MEQ TABCR PO SCH (09:20)
[2017-11-10] MEDS: FAMOTIDINE 20 MG TAB PO SCH (09:20)
[2017-11-10] MEDS: LISINOPRIL 5 MG TAB PO SCH (09:21)
[2017-11-10] MEDS: CHOLESTYRAMINE LIGHT 4 GM PKT PO SCH (09:21)
[2017-11-10] MEDS: KETOROLAC TROMETHAMINE 15 MG/ML VIAL IV. SCH (09:39)
--- NOTE | 2017-11-10 11:44 | SURGERY PROGRESS NOTE ---
DATE: 11/10/2017 SUBJECTIVE: Ms. Bernard looks good today. She was looking a little dry. Her mucous membranes seem dry. She is having very little pain in her left chest. Dressings are dry. Saturations were excellent on room air. She sounds good on auscultation. I believe it would be very good for Ms. Bernard to walk even though there are some problems with leaking from her ileostomy site. She is scheduled to have this taken down next week. The final pathology is not back, but this appears to be metastatic colorectal carcinoma with negative margins.
[2017-11-10 15:07] VITALS: BP 129/57; PULSE 80; TEMP 36.7; O2SAT 97
[2017-11-10 15:45] VITALS: O2SAT 97
[2017-11-10] MEDS ORDERED: CUSTOM CENTRAL PN 1 BAG IV SCH (16:00)
--- NOTE | 2017-11-10 19:29 | Surgery Progress Note ---
Surgery Progress Note Date of Service Nov 10, 2017. Subjective pt is resting comfortably/sleeping ( I did not wake her) Objective Vital Signs: Date Time Temp Pulse Resp B/P (MAP) Pulse Ox O2 Delivery O2 Flow Rate FiO2 11/10/17 15:07 36.7 80 18 129/57 (81) 97 Room Air 11/10/17 08:41 Room Air 11/10/17 07:23 36.7 92 19 96/66 (76) 96 Room Air 11/09/17 23:20 37.0 83 18 104/73 (83) 97 CPAP 11/09/17 23:20 CPAP 11/09/17 22:22 80 93 21 General Appearance: no apparent distress Respiratory/Chest: no respiratory distress, no accessory muscle use Abdomen: + pertinent finding (stoma with decreased output. cellulitis continues to improve) Laboratory Results: Results Past 24 Hours Test 11/09/17 20:32 11/10/17 05:36 11/10/17 07:48 11/10/17 12:23 Range/Units Bedside Glucose 106 138 164 70-90 mg/dl White Blood Count 9.41 4.8-10.8 K/uL Red Blood Count 3.61 4.2-5.4 M/uL Hemoglobin 9.3 12.0-16.0 g/dL Hematocrit 29.1 37-47 % Mean Corpuscular Volume 80.6 80-100 fL Mean Corpuscular Hemoglobin 25.8 25-34 pg Mean Corpuscular Hemoglobin Concent 32.0 32-36 g/dl RDW Standard Deviation 45.2 36.4-46.3 fL RDW Coefficient of Variation 15.4 11.5-14.5 % Platelet Count 328 130-400 K/uL Mean Platelet Volume 9.5 7.4-10.4 fL Sodium Level 135 136-145 mmol/L Potassium Level 3.9 3.5-5.1 mmol/L Chloride Level 102 98-107 mmol/L Carbon Dioxide Level 25 21-32 mmol/L Anion Gap 8.0 3-11 mmol/L Blood Urea Nitrogen 41 7-18 mg/dl Creatinine 0.77 0.60-1.20 mg/dl Est Creatinine Clear Calc Drug Dose 86.8 ml/min Estimated GFR () 102.2 Estimated GFR (Non- 88.2 BUN/Creatinine Ratio 52.7 10-20 Random Glucose 96 70-99 mg/dl Calcium Level 8.7 8.5-10.1 mg/dl Phosphorus Level 5.3 2.5-4.9 mg/dl Magnesium Level 2.0 1.8-2.4 mg/dl Test 11/10/17 17:04 Range/Units Bedside Glucose 103 70-90 mg/dl Assessment & Plan 11/10/17 no surgical changes. continue current care plan to reverse ileostomy next week 11/08/17 doing reasonably ok clinically discussed with Dr. Delatorre, would be ok to reverse stoma some time next week if she does well with her surgery today. tentatively may plan for ileostomy reversal Sunday. BE was negative discussed case at tumor board. will need a mediport which I can place at time of ileostomy reversal. 11/05/2017 patient see and examined with Dr. Rogers. CT scan reviewed from yesterday Redness slightly improved overnight Continue IV abx. Wound care consult Will attempt to slow ostomy output- will place PICC line, order TPN, keep patient on clear liquid diet. pt seen. as above. erythema improving already. ileostomy is difficult situation /impossible to keep bag in place secondary to body habitus will need to get cellulitis improved prior to attempting reversal will make NPO/sips clears; start TPN; start sandostatin to try and decrease ileostomy output. I do not believe the small pelvis fluid collection is worth going after at this point. wbc already decreasing. will remove livan will obtain BE in the next day or 2. will likely need to have her ileostomy reversed this admission appreciate ID input wound care consult obtained. 11/08/17 doing reasonably ok clinically discussed with Dr. Delatorre, would be ok to reverse stoma some time next week if she does well with her surgery today. tentatively may plan for ileostomy reversal Sunday. BE was negative discussed case at tumor board. will need a mediport which I can place at time of ileostomy reversal. 11/05/2017 patient see and examined with Dr. Rogers. CT scan reviewed from yesterday Redness slightly improved overnight Continue IV abx. Wound care consult Will attempt to slow ostomy output- will place PICC line, order TPN, keep patient on clear liquid diet. pt seen. as above. erythema improving already. ileostomy is difficult situation /impossible to keep bag in place secondary to body habitus will need to get cellulitis improved prior to attempting reversal will make NPO/sips clears; start TPN; start sandostatin to try and decrease ileostomy output. I do not believe the small pelvis fluid collection is worth going after at this point. wbc already decreasing. will remove livan will obtain BE in the next day or 2. will likely need to have her ileostomy reversed this admission appreciate ID input wound care consult obtained.
[2017-11-10] MEDS: MONTELUKAST SOD 10 MG TAB PO SCH (20:20)
[2017-11-10] MEDS: ATORVASTATIN 20 MG TAB PO SCH (20:21)
[2017-11-10] MEDS ORDERED: INSULIN GLARGINE SOLOSTAR 100 UNITS/ML 3 ML PEN SC SCH (21:00)
[2017-11-10 23:30] VITALS: BP 133/84; PULSE 96; TEMP 37.4; O2SAT 96
[2017-11-11] MEDS: ACETAMINOPHEN IV 1,000 MG in EMPTY BAG 0 ML IV SCH ×3 (02:33→17:51)
[2017-11-11] MEDS: PIPERACILL/TAZOBAC IV 4.5 GM in DEXTROSE 5% 100ML 100 ML IV SCH ×3 (02:56→18:44)
[2017-11-11] MEDS: LEVOTHYROXINE 200 MCG TAB PO SCH (05:43)
[2017-11-11] MEDS: OCTREOTIDE ACETATE 100 MCG/ML VIAL SQ SCH ×3 (05:46→21:59)
[2017-11-11] MEDS: ENOXAPARIN 40 MG/0.4 ML SYR SQ SCH (05:46)
[2017-11-11 07:12] LABS: HEMATOCRIT 28.6 % (37-47); HEMOGLOBIN 9.4 g/dL (12.0-16.0); MEAN CELL VOLUME 79.2 fL (80-100); MEAN CORPUSCULAR HGB CONC 32.9 g/dl (32-36); MEAN PLATELET VOLUME 9.7 fL (7.4-10.4); PLATELET COUNT 329 K/uL (130-400); RED CELL DISTRIBUTION WIDTH CV 15.1 % (11.5-14.5); RED CELL DISTRIBUTION WIDTH SD 43.8 fL (36.4-46.3); WHITE BLOOD COUNT 7.43 K/uL (4.8-10.8)
--- NOTE | 2017-11-11 07:28 | DIAGNOSTIC IMAGING REPORT ---
CHEST ONE VIEW PORTABLE CLINICAL HISTORY: s/p VATS postoperative evaluation COMPARISON STUDY: 11/09/2017 FINDINGS: Moderate stable cardiomegaly. Central catheter superior vena cava. Prominent pulmonary vasculature. No significant postprocedural pneumothorax. Unchanging increase in density left lung base. IMPRESSION: No pneumothorax. Moderate stable cardiomegaly. Persistent increase in density left lung base. The above report was generated using voice recognition software. It may contain grammatical, syntax or spelling errors. Electronically signed by: Iker Avelar M.D. 11/11/2017 7:27 AM Dictated Date/Time: 11/11/2017 7:26 AM
[2017-11-11 07:45] LABS: CALCIUM 9.1 mg/dl (8.5-10.1); CREATININE 0.65 mg/dl (0.60-1.20); POTASSIUM 4.3 mmol/L (3.5-5.1)
[2017-11-11 07:48] LABS: PHOSPHORUS 4.2 mg/dl (2.5-4.9)
[2017-11-11] MEDS: INSULIN ASPART 100 UNITS/ML 3 ML PEN SC SCH ×4 (08:00→20:47)
--- NOTE | 2017-11-11 08:02 | Hospitalist Progress Note ---
Hospitalist Progress Note Date of Service Nov 11, 2017. Subjective Pt evaluation today including: conversation w/ patient, physical exam, chart review, lab review, review of studies Pain: Minimal abd pain, no pain with deep breath PO Intake: TPN, attempting clears this morning Voiding: steinberg catheter in place The patient was seen and examined this morning. Patient reports feeling slightly better compared to yesterday. She reports she walked around the [place] 3 times yesterday afternoon. She anticipates getting up to walk again after she tries clear liquids for breakfast today. Her abdominal pain seems to be much improved compared to previously. The patient reports she has passed liquid brown stool twice since yesterday. Her main complaint today is that she began coughing yesterday dark red blood clots, and suspects it was only about 5 times last evening. She did not wear CPAP overnight for fear of not being able to get it off fast enough if she needed to cough up mucus/blood. She denies any chest pain, chest tenderness. She does complain of shortness of breath after walking. ROS: Constitutional: No fever, sweats or chills Eyes: No diplopia, no worsening or blurred vision ENT: normal hearing, no trouble swallowing Respiratory: See HPI. Cardiovascular: No chest pain, tightness or palpitations Abdomen: No pain, nausea, vomiting, + high ostomy output, passing liquid brown stool from rectum 2 Musculoskeletal: No joint pain, calf pain, swelling Neurologic: No weakness, numbness/tingling, or balance problems Psychiatric: No anxiety or depression Skin: No rash or itch Objective Vital Signs Date Time Temp Pulse Resp B/P (MAP) Pulse Ox O2 Delivery O2 Flow Rate FiO2 11/11/17 00:00 Room Air 11/10/17 23:30 37.4 96 18 133/84 (100) 96 Room Air 11/10/17 15:45 97 Room Air 11/10/17 15:07 36.7 80 18 129/57 (81) 97 Room Air 11/10/17 08:41 Room Air Physical Exam Notes: General Appearance: WD/WN, no apparent distress, + obese (morbidly) Eyes: PERRL, EOMI ENT: hearing grossly normal, pharynx normal, + pertinent finding (MMM) Neck: supple, no JVD Respiratory/Chest: chest non-tender, breath sounds slightly diminished at the left base, dressing appears C/d/i, no respiratory distress, no accessory muscle use, + pertinent finding (on RA) Cardiovascular: + systolic murmur, + irregularly irregular (rate controlled) Abdomen: + pertinent finding (Obese, + mildly erythematous pannus involving the folds is improving, + RLQ abdominal ostomy without bag on, semi-packed 4x4 gauze, + small 1x1cm lesion in pannus fold appears to be healing, livan removed from midline incision healing well, +tenderness with deep palpation improving.) Extremities: +PICC line RUE, non-tender, no pedal edema, no calf tenderness Neurologic/Psychiatric: alert, normal affect, oriented x 3 Laboratory Results Last 24 Hours Test 11/10/17 12:23 11/10/17 17:04 11/10/17 20:42 11/11/17 06:59 Bedside Glucose 164 mg/dl 103 mg/dl 115 mg/dl White Blood Count 7.43 K/uL Red Blood Count 3.61 M/uL Hemoglobin 9.4 g/dL Hematocrit 28.6 % Mean Corpuscular Volume 79.2 fL Mean Corpuscular Hemoglobin 26.0 pg Mean Corpuscular Hemoglobin Concent 32.9 g/dl RDW Standard Deviation 43.8 fL RDW Coefficient of Variation 15.1 % Platelet Count 329 K/uL Mean Platelet Volume 9.7 fL Sodium Level 139 mmol/L Potassium Level 4.3 mmol/L Chloride Level 104 mmol/L Carbon Dioxide Level 27 mmol/L Anion Gap 8.0 mmol/L Blood Urea Nitrogen 37 mg/dl Creatinine 0.65 mg/dl Est Creatinine Clear Calc Drug Dose 102.2 ml/min Estimated GFR () 116.7 Estimated GFR (Non- 100.7 BUN/Creatinine Ratio 57.3 Random Glucose 64 mg/dl Calcium Level 9.1 mg/dl Phosphorus Level 4.2 mg/dl Magnesium Level 1.9 mg/dl Assessment and Plan 51 yo female here with the surgical site infection of abdominal cellulitis with concern for possible abscess Severe Abdominal wall cellulitis, possible abscess Severe Protein Calorie Malnutrition - ID on board- - Continue Zosyn (started on 11/03), follow wound cultures. Was on cipro/ flagyl prior to admission. - Gen surgical consulted- keeping on clear liquid diet, plans for ileostomy reversal during this admission but they would like cellulitis to be more improved - Tentatively plan for ileostomy reversal and Mediport placement on Sunday morning (11/13) - PICC line inserted on 11/05, TPN started 11/05 per dietary/pharmacy recs - Wound consulted for ostomy site care - hold Eliquis - Encouraged to ambulate Loop ileostomy - TPN along with a clear diet allowed today per general surgery; start octreotide to try and decrease ileostomy output, poor function due to obesity - Livan out of midline abdominal incision - healing better, only slight serosanguineous drainage from vertical incision - Barium enema 11/07: normal 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 Delatorre on board: s/p LLL wedge resection 11/08. Frozen section looks like metastatic adenocarcinoma, pathology pending - Chest tube removed 11/09, doing well, required 1 day stay in the ICU but now out. - Oncology consulted- appreciate recs - Dr. Quintana will follow - CXR from 11/11 reviewed showing LLL infiltrate but appears improved compared to imaging on 11/09 prior to wedge resection. On room air. - Patient is now coughing up some dark red bloody mucus - Atrial fibrillation - maintained on her metoprolol succ 50 mg daily - Holding Eliquis (last taken 11/04) HLD - Lipitor will be continued Hypertension - cont lisinopril 5 mg daily DM II - She's been on various diabetic regimens over the last few months - currently on Tojeo at 15 U will convert this to Lantus 15 U QPM and ISS with accuchecks achs - glycemic pharmacy to help manage with TPN Asthma - Cont Combivent and Singulair Reverse hypothyroidism - she appears clinically euthyroid and she is on a significantly high dose of Synthroid in the chart documented at 1200 g a day obstructive sleep apnea - supply her CPAP Her morbid obesity directly impacts both her wound care her healing and her sleep apnea DVT ppx : SCDs, no chemical anticoagulation at this time CODE STATUS: FULL Dispostion: Anticipated prolonged hospital course due to severity of abdominal cellulitis, needs for improved nutritional status, planned ileostomy reversal on Sunday and post-op healing. From home, will need CM to assist with dc planning, was from [facility].
--- NOTE | 2017-11-11 08:34 | HEME/ONC PROGRESS NOTE ---
DATE: 11/11/2017 DIAGNOSES: 1. Adenocarcinoma in the rectum. 2. Left lower lobe pulmonary nodule status post wedge resection. 3. Abdominal wall cellulitis. 4. Microcytic anemia most likely attributable to iron deficiency. SUBJECTIVE: Luisa is a pleasant morbidly obese 52-year-old female patient who was status post aborted LAR for rectal cancer. She underwent ileostomy, which unfortunately has resulted in abdominal wall cellulitis. She continues broad-spectrum antimicrobials. Luisa recently underwent a wedge resection performed by Dr. Marcial Delatorre. Pathology is pending at this time. She will undergo re-anastomosis on Sunday by Dr. Rogers as well as installation of a MediPort device. She feels well and offers no particular complaints today. PHYSICAL EXAMINATION: GENERAL: She is in no acute distress. VITAL SIGNS: Temperature 37.4, pulse 96, respirations 18, blood pressure 133/84. SKIN: Without further rash or lesion. HEENT: The patient is edentulous, otherwise buccal mucosa is normal. HEART: Regular rate and rhythm. LUNGS: Clear to auscultation bilaterally. ABDOMEN: Soft, nontender, nondistended. EXTREMITIES: No clubbing, cyanosis or edema. NEUROLOGIC: Grossly intact. LABORATORY DATA: WBC count 7430, hemoglobin 9.4, platelet count 329,000. Chemistries are pending at the time of dictation. IMPRESSION: 1. Status post wedge resection, removal of left lower lobe nodule. 2. Adenocarcinoma in the rectum. 3. Abdominal wall cellulitis. 3. Microcytic anemia. PLAN: I visited Luisa at the bedside again today. Unfortunately, pathology is not available to formally discuss therapeutic approach. She will undergo reanastomosis on Sunday. Luisa understands she will receive chemotherapy at some point. However, cannot make definitive recommendations until pathology is confirmed. From a medical oncology standpoint, I have nothing further to add. We would obtain iron studies to rule out deficiency state. I will go off service today and I believe Dr. Tapia takes over tomorrow. I will ensure Luisa has appropriate outpatient followup upon discharge. We will continue to periodically follow her, specifically when her pathology becomes available for further discussion. Thank you again for allowing us to participate in her care.
[2017-11-11] MEDS: IPRATROPIUM BROMIDE/ALBUTEROL respimat INH INH SCH ×4 (08:53→20:47)
[2017-11-11] MEDS: LISINOPRIL 5 MG TAB PO SCH (08:54)
[2017-11-11] MEDS: MAGNESIUM OXIDE 400 MG TAB PO SCH (08:57)
[2017-11-11] MEDS: CHOLESTYRAMINE LIGHT 4 GM PKT PO SCH (08:57)
[2017-11-11] MEDS: POTASSIUM CHLORIDE 10 MEQ TABCR PO SCH (08:58)
[2017-11-11] MEDS: FUROSEMIDE 20 MG TAB PO SCH (08:58)
[2017-11-11] MEDS: FLUCONAZOLE 100 MG TAB PO SCH (08:59)
[2017-11-11] MEDS: METOPROLOL SUCC 50MG EXT REL TAB PO SCH (08:59)
[2017-11-11] MEDS: LORATADINE 10 MG TAB PO SCH (08:59)
[2017-11-11] MEDS: LACTOBACILLUS ACIDOPHILUS (FLORANEX) TAB PO SCH ×3 (09:00→20:47)
[2017-11-11] MEDS: FAMOTIDINE 20 MG TAB PO SCH (09:01)
--- NOTE | 2017-11-11 09:47 | Surgery Progress Note ---
Surgery Progress Note Date of Service Nov 11, 2017. Subjective doing ok. up ambulating in [place]. appears comfortable. Objective Vital Signs: Date Time Temp Pulse Resp B/P (MAP) Pulse Ox O2 Delivery O2 Flow Rate FiO2 11/11/17 08:10 Room Air 11/11/17 00:00 Room Air 11/10/17 23:30 37.4 96 18 133/84 (100) 96 Room Air 11/10/17 15:45 97 Room Air 11/10/17 15:07 36.7 80 18 129/57 (81) 97 Room Air General Appearance: no apparent distress Head: atraumatic Respiratory/Chest: no respiratory distress, no accessory muscle use Laboratory Results: Results Past 24 Hours Test 11/10/17 12:23 11/10/17 17:04 11/10/17 20:42 11/11/17 06:59 Range/Units Bedside Glucose 164 103 115 70-90 mg/dl White Blood Count 7.43 4.8-10.8 K/uL Red Blood Count 3.61 4.2-5.4 M/uL Hemoglobin 9.4 12.0-16.0 g/dL Hematocrit 28.6 37-47 % Mean Corpuscular Volume 79.2 80-100 fL Mean Corpuscular Hemoglobin 26.0 25-34 pg Mean Corpuscular Hemoglobin Concent 32.9 32-36 g/dl RDW Standard Deviation 43.8 36.4-46.3 fL RDW Coefficient of Variation 15.1 11.5-14.5 % Platelet Count 329 130-400 K/uL Mean Platelet Volume 9.7 7.4-10.4 fL Sodium Level 139 136-145 mmol/L Potassium Level 4.3 3.5-5.1 mmol/L Chloride Level 104 98-107 mmol/L Carbon Dioxide Level 27 21-32 mmol/L Anion Gap 8.0 3-11 mmol/L Blood Urea Nitrogen 37 7-18 mg/dl Creatinine 0.65 0.60-1.20 mg/dl Est Creatinine Clear Calc Drug Dose 102.2 ml/min Estimated GFR () 116.7 Estimated GFR (Non- 100.7 BUN/Creatinine Ratio 57.3 10-20 Random Glucose 64 70-99 mg/dl Calcium Level 9.1 8.5-10.1 mg/dl Phosphorus Level 4.2 2.5-4.9 mg/dl Magnesium Level 1.9 1.8-2.4 mg/dl Assessment & Plan 11/01/17 no clinical change cont tpn for reversal sunday11/10/17 no surgical changes. continue current care plan to reverse ileostomy next week 11/08/17 doing reasonably ok clinically discussed with Dr. Delatorre, would be ok to reverse stoma some time next week if she does well with her surgery today. tentatively may plan for ileostomy reversal Sunday. BE was negative discussed case at tumor board. will need a mediport which I can place at time of ileostomy reversal. 11/05/2017 patient see and examined with Dr. Rogers. CT scan reviewed from yesterday Redness slightly improved overnight Continue IV abx. Wound care consult Will attempt to slow ostomy output- will place PICC line, order TPN, keep patient on clear liquid diet. pt seen. as above. erythema improving already. ileostomy is difficult situation /impossible to keep bag in place secondary to body habitus will need to get cellulitis improved prior to attempting reversal will make NPO/sips clears; start TPN; start sandostatin to try and decrease ileostomy output. I do not believe the small pelvis fluid collection is worth going after at this point. wbc already decreasing. will remove livan will obtain BE in the next day or 2. will likely need to have her ileostomy reversed this admission appreciate ID input wound care consult obtained. 11/10/17 no surgical changes. continue current care plan to reverse ileostomy next week 11/08/17 doing reasonably ok clinically discussed with Dr. Delatorre, would be ok to reverse stoma some time next week if she does well with her surgery today. tentatively may plan for ileostomy reversal Sunday. BE was negative discussed case at tumor board. will need a mediport which I can place at time of ileostomy reversal. 11/05/2017 patient see and examined with Dr. Rogers. CT scan reviewed from yesterday Redness slightly improved overnight Continue IV abx. Wound care consult Will attempt to slow ostomy output- will place PICC line, order TPN, keep patient on clear liquid diet. pt seen. as above. erythema improving already. ileostomy is difficult situation /impossible to keep bag in place secondary to body habitus will need to get cellulitis improved prior to attempting reversal will make NPO/sips clears; start TPN; start sandostatin to try and decrease ileostomy output. I do not believe the small pelvis fluid collection is worth going after at this point. wbc already decreasing. will remove livan will obtain BE in the next day or 2. will likely need to have her ileostomy reversed this admission appreciate ID input wound care consult obtained.
--- NOTE | 2017-11-11 10:26 | Pharmacy Progress Note ---
Pharmacy Glycemic Short Note 2 Date of Service Nov 11, 2017. OUTPATIENT ANTIDIABETIC REGIMEN: * Lantus 15 units HS + Novolog TIDM ASSESSMENT: * Ms Bernard is a 52 y/o F admitted with abdominal wall cellulitis. She has a PMH of rectal CA with colostomy, GERD, Afib, and ANA. She is currently on a TPN receiving 150 gm of carbohydrates secondary to increased colostomy output. Today the dextrose is increased to 200 grams. She is planned for a reversal on Sunday. * Yesterday, Ms Bernard received 15 units of Lantus plus 2 units of correctional insulin. There is 38 units of insulin in the TPN. This will be increased to 50 units. Blood sugars ranged from 96-164 mg/dL...fasting this morning is 64 mg/dL indicating that the Lantus is too aggressive. This is decreased from even yesterday's fasting of 96 mg/dL. Decrease Lantus to 10 units. Most likely secondary to Lantus 20 units x 3 days (11/07-11/09/17). This will most likely be increased tomorrow when fasting blood sugar recovers. * Blood sugars throughout the day well controlled. Monitor closely. PLAN FOR INPATIENT GLYCEMIC CONTROL: * Basal insulin * Lantus 10 units SQ HS * Bolus insulin * NovoLog per scale ACHS or Q6hrs while NPO * Goal Range: Low 110 mg/dL - High 140 mg/dL * Correction Factor: 20 mg/dL/unit * Nutritional / Prandial insulin per carb ratio of 1 unit per -- grams CHO consumed
[2017-11-11 11:12] VITALS: BP 123/80; PULSE 89; TEMP 37.5; O2SAT 96
--- NOTE | 2017-11-11 11:23 | SURGERY PROGRESS NOTE ---
DATE: 11/11/2017 Ms. Bernard had been walking in the hallway. She walked 3 times yesterday. Her final pathology is not back yet. This does appear to be metastatic rectal carcinoma. She is on room air now with 96% saturations. Her lungs sounds are grossly clear. Her x-ray shows some volume loss on the left base, but overall, I think it looks better. She is scheduled to undergo takedown of her ileostomy, which I think would be appropriate. MTDD
[2017-11-11 15:35] VITALS: BP 121/86; PULSE 91; TEMP 36.8; O2SAT 98
[2017-11-11 16:00] VITALS: O2SAT 98
[2017-11-11] MEDS ORDERED: CUSTOM CENTRAL PN 1 BAG IV SCH (16:00)
[2017-11-11] MEDS: ATORVASTATIN 20 MG TAB PO SCH (20:47)
[2017-11-11] MEDS: MONTELUKAST SOD 10 MG TAB PO SCH (20:47)
[2017-11-11] MEDS: INSULIN GLARGINE SOLOSTAR 100 UNITS/ML 3 ML PEN SC SCH (20:51)
[2017-11-11] MEDS ORDERED: INSULIN GLARGINE SOLOSTAR 100 UNITS/ML 3 ML PEN SC SCH (21:00)
[2017-11-11 23:15] VITALS: O2SAT 93
[2017-11-12] MEDS: OXYCODONE HCL IR 5 MG TAB (IMMEDIATE RELEASE) PO PRN ×2 (00:30→23:47)
[2017-11-12 00:39] VITALS: BP 140/82; PULSE 98; TEMP 37.5; O2SAT 97
[2017-11-12] MEDS: ACETAMINOPHEN IV 1,000 MG in EMPTY BAG 0 ML IV SCH ×3 (01:53→18:39)
[2017-11-12] MEDS: PIPERACILL/TAZOBAC IV 4.5 GM in DEXTROSE 5% 100ML 100 ML IV SCH ×3 (02:23→19:13)
[2017-11-12] MEDS: OCTREOTIDE ACETATE 100 MCG/ML VIAL SQ SCH ×3 (06:15→22:32)
[2017-11-12] MEDS: ENOXAPARIN 40 MG/0.4 ML SYR SQ SCH (06:15)
[2017-11-12] MEDS: LEVOTHYROXINE 200 MCG TAB PO SCH (06:23)
[2017-11-12 08:06] VITALS: O2SAT 97
--- NOTE | 2017-11-12 08:16 | SURGERY PROGRESS NOTE ---
DATE: 11/12/2017 Ms. Bernard was seen today on 11/12/2017. She looks great today. I removed all of her dressings, her incisions have healed very nicely. I was concerned about her open infection and these wounds; however, I packed these with calcium sulfate beads impregnated with antibiotics, they all look quite good. Her dressings may stay off. She has been ambulating in the hallway. She is on room air. I think she is ready, from my standpoint, for any type of surgical procedure Dr. Huntley wishes to offer.
--- NOTE | 2017-11-12 08:26 | Surgery Progress Note ---
Surgery Progress Note Date of Service Nov 12, 2017. Subjective + feeling well no new complaints. Objective Vital Signs: Date Time Temp Pulse Resp B/P (MAP) Pulse Ox O2 Delivery O2 Flow Rate FiO2 11/12/17 08:06 97 Room Air 11/12/17 00:39 37.5 98 18 140/82 (101) 97 Room Air 11/12/17 00:20 Room Air 11/11/17 23:15 93 21 11/11/17 16:00 98 Room Air 11/11/17 15:35 36.8 91 18 121/86 (98) 98 Room Air 11/11/17 11:12 37.5 89 16 123/80 (94) 96 Room Air General Appearance: no apparent distress Respiratory/Chest: no respiratory distress, no accessory muscle use Abdomen: soft, + pertinent finding (erythema/cellulitis much improved. ) Laboratory Results: Results Past 24 Hours Test 11/11/17 12:32 11/11/17 17:10 11/11/17 20:29 11/12/17 04:44 Range/Units Bedside Glucose 118 126 144 70-90 mg/dl Assessment & Plan 11/12/17 doing well for ileostomy reversal tomorrow discussed risks will also need a mediport for chemo questions answered. 11/11/17 no clinical change cont tpn for reversal sunday11/10/17 no surgical changes. continue current care plan to reverse ileostomy next week 11/08/17 doing reasonably ok clinically discussed with Dr. Delatorre, would be ok to reverse stoma some time next week if she does well with her surgery today. tentatively may plan for ileostomy reversal Sunday. BE was negative discussed case at tumor board. will need a mediport which I can place at time of ileostomy reversal. 11/05/2017 patient see and examined with Dr. Rogers. CT scan reviewed from yesterday Redness slightly improved overnight Continue IV abx. Wound care consult Will attempt to slow ostomy output- will place PICC line, order TPN, keep patient on clear liquid diet. pt seen. as above. erythema improving already. ileostomy is difficult situation /impossible to keep bag in place secondary to body habitus will need to get cellulitis improved prior to attempting reversal will make NPO/sips clears; start TPN; start sandostatin to try and decrease ileostomy output. I do not believe the small pelvis fluid collection is worth going after at this point. wbc already decreasing. will remove livan will obtain BE in the next day or 2. will likely need to have her ileostomy reversed this admission appreciate ID input wound care consult obtained. 11/01/17 no clinical change cont tpn for reversal sunday11/10/17 no surgical changes. continue current care plan to reverse ileostomy next week 11/08/17 doing reasonably ok clinically discussed with Dr. Delatorre, would be ok to reverse stoma some time next week if she does well with her surgery today. tentatively may plan for ileostomy reversal Sunday. BE was negative discussed case at tumor board. will need a mediport which I can place at time of ileostomy reversal. 11/05/2017 patient see and examined with Dr. Rogers. CT scan reviewed from yesterday Redness slightly improved overnight Continue IV abx. Wound care consult Will attempt to slow ostomy output- will place PICC line, order TPN, keep patient on clear liquid diet. pt seen. as above. erythema improving already. ileostomy is difficult situation /impossible to keep bag in place secondary to body habitus will need to get cellulitis improved prior to attempting reversal will make NPO/sips clears; start TPN; start sandostatin to try and decrease ileostomy output. I do not believe the small pelvis fluid collection is worth going after at this point. wbc already decreasing. will remove livan will obtain BE in the next day or 2. will likely need to have her ileostomy reversed this admission appreciate ID input wound care consult obtained.
[2017-11-12 08:43] VITALS: BP 130/82; PULSE 94; TEMP 36.7; O2SAT 97
[2017-11-12] MEDS: INSULIN ASPART 100 UNITS/ML 3 ML PEN SC SCH ×4 (08:55→21:00)
[2017-11-12 09:21] LABS: HEMOGLOBIN 10.1 g/dL (12.0-16.0); MEAN CELL VOLUME 79.5 fL (80-100); MEAN CORPUSCULAR HEMOGLOBIN 25.9 pg (25-34); MEAN CORPUSCULAR HGB CONC 32.6 g/dl (32-36); PLATELET COUNT 397 K/uL (130-400); RED CELL DISTRIBUTION WIDTH CV 15.5 % (11.5-14.5); RED CELL DISTRIBUTION WIDTH SD 44.4 fL (36.4-46.3); WHITE BLOOD COUNT 8.42 K/uL (4.8-10.8)
[2017-11-12] MEDS: METOPROLOL SUCC 50MG EXT REL TAB PO SCH (09:42)
[2017-11-12] MEDS: FAMOTIDINE 20 MG TAB PO SCH (09:43)
[2017-11-12] MEDS: LACTOBACILLUS ACIDOPHILUS (FLORANEX) TAB PO SCH ×3 (09:43→22:20)
[2017-11-12] MEDS: LISINOPRIL 5 MG TAB PO SCH (09:43)
[2017-11-12 09:45] LABS: ALBUMIN 2.1 gm/dl (3.4-5.0); CALCIUM 9.1 mg/dl (8.5-10.1); CREATININE 0.59 mg/dl (0.60-1.20); POTASSIUM 4.4 mmol/L (3.5-5.1)
[2017-11-12] MEDS: FLUCONAZOLE 100 MG TAB PO SCH (09:45)
[2017-11-12] MEDS: FUROSEMIDE 20 MG TAB PO SCH (09:45)
[2017-11-12] MEDS: CHOLESTYRAMINE LIGHT 4 GM PKT PO SCH (09:45)
[2017-11-12] MEDS: IPRATROPIUM BROMIDE/ALBUTEROL respimat INH INH SCH ×4 (09:45→22:16)
[2017-11-12] MEDS: LORATADINE 10 MG TAB PO SCH (09:45)
[2017-11-12] MEDS: POTASSIUM CHLORIDE 10 MEQ TABCR PO SCH (09:46)
[2017-11-12] MEDS: MAGNESIUM OXIDE 400 MG TAB PO SCH (09:46)
[2017-11-12 09:54] LABS: PHOSPHORUS 3.3 mg/dl (2.5-4.9)
--- NOTE | 2017-11-12 10:37 | Hematology/Oncology Prog Note ---
Hematology/Onc Progress Note Date of Service Nov 12, 2017. Diagnoses Colorectal carcinoma Pulmonary nodule Dominant wall cellulitis Medications Medications Administered Medications (Trade) Dose Ordered Sig/Viviana Route Start Time Stop Time Status Last Admin Dose Admin Sodium Chloride 1,000 ml @ 999 mls/hr Q1H1M STAT IV 11/04/17 13:10 11/04/17 14:10 DC 11/04/17 13:47 999 MLS/HR Vancomycin HCl 2000 mg/Sodium Chloride 540 ml @ 200 mls/hr ONE STAT IV 11/04/17 13:10 11/04/17 15:51 DC 11/04/17 14:59 200 MLS/HR Piperacillin Sod/ Tazobactam Sod (Zosyn Iv) 4.5 gm NOW STAT IV 11/04/17 13:10 11/04/17 13:15 DC 11/04/17 14:05 4.5 GM Fentanyl Citrate (Fentanyl Inj) 100 mcg NOW STAT IV 11/04/17 13:10 11/04/17 13:15 DC 11/04/17 13:48 100 MCG Piperacillin Sod/ Tazobactam Sod 4.5 gm/Dextrose 120 ml @ 30 mls/hr Q8H IV 11/04/17 21:00 11/14/17 20:59 11/12/17 02:23 30 MLS/HR Vancomycin HCl 1250 mg/Sodium Chloride 275 ml @ 125 mls/hr Q12H IV 11/05/17 02:00 11/06/17 08:19 DC 11/06/17 02:02 125 MLS/HR Atorvastatin Calcium (Lipitor Tab) 20 mg HS PO 11/04/17 21:00 12/04/17 20:59 11/11/17 20:47 20 MG Famotidine (Pepcid Tab) 20 mg DAILY PO 11/05/17 08:00 12/05/17 08:59 11/12/17 09:43 20 MG Fluconazole (Diflucan Tab) 100 mg QAM PO 11/05/17 08:00 11/15/17 08:59 11/12/17 09:45 100 MG Furosemide (Lasix Tab) 20 mg QAM PO 11/05/17 08:00 12/05/17 08:59 11/12/17 09:45 20 MG Albuterol/ Ipratropium (Combivent Respimat Inh) 1 puffs QID INH 11/04/17 20:00 12/04/17 20:59 11/12/17 09:45 1 PUFFS Lactobacillus Acidophilus (Floranex Tab) 4 tab TID PO 11/04/17 20:00 12/04/17 20:59 11/12/17 09:43 4 TAB Lisinopril (Zestril Tab) 5 mg QAM PO 11/05/17 08:00 12/05/17 08:59 11/12/17 09:43 5 MG Loratadine (Claritin Tab) 10 mg QAM PO 11/05/17 08:00 12/05/17 08:59 11/12/17 09:45 10 MG Magnesium Oxide (Mag-Ox Tab) 400 mg DAILY PO 11/05/17 08:00 12/05/17 08:59 11/12/17 09:46 400 MG Metoprolol Succinate (Toprol Xl Tab) 50 mg DAILY PO 11/05/17 08:00 12/05/17 08:59 11/12/17 09:42 50 MG Montelukast Sodium (Singulair Tab) 10 mg HS PO 11/04/17 21:00 12/04/17 20:59 11/11/17 20:47 10 MG Potassium Chloride (Klor-Con M10) 10 meq QAM PO 11/05/17 08:00 12/05/17 08:59 11/12/17 09:46 10 MEQ Cholestyramine Resin (Questran Powder Light) 4 gm DAILY PO 11/05/17 08:00 12/05/17 08:59 11/12/17 09:45 4 GM Insulin Aspart (novoLOG ASPART) SLIDING SCALE PARAMETER ACHS SC 11/04/17 21:00 12/04/17 20:59 11/10/17 12:47 2 UNITS Insulin Glargine (Lantus Solostar Pen) 15 units PM SC 11/04/17 21:00 11/07/17 08:56 DC 11/06/17 21:08 15 UNITS Levothyroxine Sodium (Synthroid Tab) 1,200 mcg DAILYBB PO 11/05/17 06:30 12/05/17 06:29 11/12/17 06:23 1,200 MCG Acetaminophen (Tylenol Tab) 650 mg Q4H PRN PO 11/04/17 18:45 11/08/17 15:03 DC 11/06/17 16:52 650 MG Morphine Sulfate (MoRPHine SULFATE INJ) 4 mg Q4H PRN IV 11/04/17 18:45 11/18/17 18:44 11/07/17 08:05 4 MG Sodium Chloride 1,000 ml @ 100 mls/hr Q10H IV 11/04/17 20:30 11/05/17 15:59 DC 11/04/17 21:36 100 MLS/HR Octreotide Acetate (Sandostatin Inj) 100 mcg Q8 SQ 11/05/17 09:00 12/05/17 08:59 11/12/17 06:15 100 MCG Magnesium Sulfate 1 gm/Prmx 100 ml @ 100 mls/hr Q1H IV 11/05/17 14:00 11/05/17 15:59 DC 11/05/17 16:19 100 MLS/HR Nutrition (Parenteral) 0 ml @ 0 mls/hr TODAY@1600 IV 11/05/17 16:00 11/06/17 15:59 DC 11/05/17 17:27 0 MLS/HR Vancomycin HCl 1250 mg/Sodium Chloride 275 ml @ 125 mls/hr Q14H IV 11/06/17 16:00 11/08/17 07:57 DC 11/06/17 16:28 125 MLS/HR Nutrition (Parenteral) 0 ml @ 0 mls/hr TODAY@1600 IV 11/06/17 16:00 11/07/17 15:59 DC 11/06/17 16:26 100 MLS/HR Diphenhydramine HCl (Benadryl Inj) 25 mg NOW ONCE IV 11/06/17 18:45 11/06/17 18:46 DC 11/06/17 18:38 25 MG Insulin Glargine (Lantus Solostar Pen) 20 units PM SC 11/07/17 21:00 11/10/17 09:12 DC 11/09/17 21:40 20 UNITS Magnesium Sulfate 1 gm/Prmx 100 ml @ 100 mls/hr Q1H IV 11/07/17 09:00 11/07/17 10:59 DC 11/07/17 11:41 100 MLS/HR Sodium Phosphate 15 mmol/Sodium Chloride 255 ml @ 88 mls/hr ONE ONCE IV 11/07/17 09:00 11/07/17 11:53 DC 11/07/17 10:02 88 MLS/HR Nutrition (Parenteral) 0 ml @ 0 mls/hr TODAY@1600 IV 11/07/17 16:00 11/08/17 15:59 DC 11/07/17 15:57 0 MLS/HR Nutrition (Parenteral) 0 ml @ 0 mls/hr TODAY@1600 IV 11/08/17 16:00 11/09/17 15:59 DC 11/08/17 17:52 100 MLS/HR Vancomycin HCl (Vancomycin Inj) 50 mg STK-MED ONCE .ROUTE 11/08/17 13:11 11/08/17 13:12 DC 11/08/17 14:07 50 MG Gentamicin Sulfate (Gentamicin Sulfate Inj) 240 mg STK-MED ONCE .ROUTE 11/08/17 13:12 11/08/17 13:13 DC 11/08/17 14:04 240 MG Bupivacaine HCl (Marcaine 0.5% MPF Inj) 30 ml ONE ONCE INJ 11/08/17 13:34 11/08/17 13:35 DC 11/08/17 13:35 30 ML Sodium Chloride (Sodium Chloride 0.9% Pf Inj) 100 ml ONE ONCE INJ 11/08/17 13:36 11/08/17 13:37 DC 11/08/17 13:36 100 ML Bupivacaine Liposome (Exparel) 266 mg ONE ONCE INFIL 11/08/17 13:39 11/08/17 13:41 DC 11/08/17 13:35 266 MG Acetaminophen 1000 mg/Empty Bag 100 ml @ 400 mls/hr Q8H IV 11/08/17 18:00 12/08/17 17:59 11/12/17 01:53 400 MLS/HR Oxycodone HCl (Roxicodone Immediate Rel Tab) 5 mg Q6H PRN PO 11/08/17 15:00 11/22/17 14:59 11/12/17 00:30 5 MG Enoxaparin Sodium (Lovenox Inj) 40 mg DAILY@0600 SQ 11/09/17 06:00 12/09/17 05:59 11/12/17 06:15 40 MG Ketorolac Tromethamine (Toradol Inj) 15 mg Q8H IV. 11/08/17 16:00 11/10/17 08:03 DC 11/10/17 09:39 15 MG Albuterol/ Ipratropium (Duoneb) 3 ml ONE ONCE INH 11/08/17 16:00 11/08/17 16:01 DC 11/08/17 15:35 3 ML Fentanyl Citrate (Fentanyl Inj) 100 mcg STK-MED ONCE .ROUTE 11/08/17 16:18 11/08/17 16:19 DC 11/08/17 16:26 25 MCG Erythromycin (Erythromycin Oph Oint) 1 appln QID OP 11/08/17 17:00 11/10/17 20:01 DC 11/09/17 21:30 1 APPLN Insulin Human Regular 6 units/ Syringe 6 ml @ 30 mls/min TODAY@1845 IV 11/08/17 18:45 11/08/17 19:30 DC 11/08/17 18:49 30 MLS/MIN Insulin Human Regular 5 units/ Syringe 0.05 ml @ 0.05 mls/ min NOW STAT IV 11/08/17 20:16 11/08/17 20:17 DC 11/08/17 20:48 0.05 MLS/MIN Sodium Chloride 500 ml @ 999 mls/hr Q31M STAT IV 11/08/17 21:33 11/08/17 22:03 DC 11/08/17 21:54 999 MLS/HR Sodium Chloride 500 ml @ 999 mls/hr Q31M IV 11/09/17 00:00 11/09/17 00:30 DC 11/09/17 00:32 999 MLS/HR Nutrition (Parenteral) 0 ml @ 0 mls/hr TODAY@1600 IV 11/09/17 16:00 11/10/17 15:59 DC 11/09/17 16:03 100 MLS/HR Insulin Glargine (Lantus Solostar Pen) 15 units PM SC 11/10/17 21:00 11/11/17 08:43 DC 11/10/17 21:17 15 UNITS Nutrition (Parenteral) 0 ml @ 0 mls/hr TODAY@1600 IV 11/10/17 16:00 11/11/17 15:59 DC 11/10/17 15:37 100 MLS/HR Nutrition (Parenteral) 0 ml @ 0 mls/hr TODAY@1600 IV 11/11/17 16:00 11/12/17 15:59 11/11/17 16:23 100 MLS/HR Insulin Glargine (Lantus Solostar Pen) 10 units PM SC 11/11/17 21:00 12/11/17 20:59 11/11/17 20:51 10 UNITS Subjective She seems to be doing well. Surgery is scheduled for tomorrow for re- anastomosis as well as Mediport placement. Review of Systems: Constitutional: Negative for night sweats, or fever Eyes: Negative for event change of vision ENT: Negative for epistaxis, nasal discharge, sore throat, or deafness Cardiovascular: Negative for chest pain, palpitations, dizziness, diaphoresis Respiratory: Negative for new shortness of breath,hemoptysis, or purulent cough Gastrointestinal: Negative for diarrhea, hematemesis, melena, nausea, vomiting , or dyspepsia Integument: Has significant dominant wall panniculitis Neurological: Negative for weakness, seizure activity, headache, or dizziness Lymphatic/Hematologic: Negative for petechiae, bleeding or new adenopathy Musculoskeletal: Negative for new joint or back pain Allergic/Immunologic: Negative for unusual rash or pruritis. Vital Signs Vital Signs Past 12 Hours Date Time Temp Pulse Resp B/P (MAP) Pulse Ox O2 Delivery O2 Flow Rate FiO2 11/12/17 08:43 36.7 94 20 130/82 (98) 97 Room Air 11/12/17 08:06 97 Room Air 11/12/17 07:15 Room Air 11/12/17 00:39 37.5 98 18 140/82 (101) 97 Room Air 11/12/17 00:20 Room Air 11/11/17 23:15 93 21 Physical Exam Constitutional: vitals are stable. Obese pleasant 52-year-old female Eyes: Eyes are SAEID EOMI without conjuctival erythema or icterus. ENT: External examination was negative for masses. Neck: Negative for masses or palpable thyromegaly Respiratory: Lung sounds were generally clear bilaterally Cardiovascular: Heart was RRR without significant murmur, gallops aoe rubs Gastrointestinal: No palpable hepatic or splenomegaly. The abdomen was soft with normal bowel sounds. Lymphatic system: there was no palpable peripheral lymphadenopathy Musculoskeletal System: The musculoskeletal system seemed concordant with age. Skin: Significant abdominal wall panniculitis Neurologic exam: The exam was negative for any focal findings. Deep tendon reflexes were equal and symmetrical. Psychiatric exam: Was essentially negative with normal mood and effect. Breast exam: Not done Extremtities: negative for edema Laboratory Last 24 Hours Test 11/11/17 12:32 11/11/17 17:10 11/11/17 20:29 11/12/17 08:21 Bedside Glucose 118 mg/dl 126 mg/dl 144 mg/dl 84 mg/dl Test 11/12/17 08:30 White Blood Count 8.42 K/uL Red Blood Count 3.90 M/uL Hemoglobin 10.1 g/dL Hematocrit 31.0 % Mean Corpuscular Volume 79.5 fL Mean Corpuscular Hemoglobin 25.9 pg Mean Corpuscular Hemoglobin Concent 32.6 g/dl RDW Standard Deviation 44.4 fL RDW Coefficient of Variation 15.5 % Platelet Count 397 K/uL Mean Platelet Volume 10.0 fL Sodium Level 136 mmol/L Potassium Level 4.4 mmol/L Chloride Level 102 mmol/L Carbon Dioxide Level 28 mmol/L Anion Gap 6.0 mmol/L Blood Urea Nitrogen 26 mg/dl Creatinine 0.59 mg/dl Est Creatinine Clear Calc Drug Dose 112.6 ml/min Estimated GFR () 120.4 Estimated GFR (Non- 103.9 BUN/Creatinine Ratio 43.6 Random Glucose 69 mg/dl Calcium Level 9.1 mg/dl Phosphorus Level 3.3 mg/dl Magnesium Level 1.7 mg/dl Iron Level 31 mcg/dl Total Iron Binding Capacity 213 mcg/dl Ferritin 141.4 ng/ml Total Bilirubin 0.5 mg/dl Aspartate Amino Transf (AST/SGOT) 10 U/L Alanine Aminotransferase (ALT/SGPT) 7 U/L Alkaline Phosphatase 79 U/L C-Reactive Protein 5.27 mg/dl Albumin 2.1 gm/dl Prealbumin 11.5 mg/dl Triglycerides Level 108 mg/dl Assessment & Plan Preliminary pathology report from the pulmonary nodule is most likely metastatic colon carcinoma. Further histochemical stains are pending at this time. The patient was informed of the above. Mediport is planned for tomorrow. Following this we will see her in our clinic. A PET CT scan will need to be done followed by attempts to treat metastatic disease with FOLFOX and either cetuximab or Avastin. I did ask pathology today to do a K-justino assay on her tumor. Patient was informed of having a follow-up in our clinic as well as the eventual need for chemotherapy for metastatic colo-rectal carcinoma.
[2017-11-12] MEDS ORDERED: CUSTOM CENTRAL PN 1 BAG IV SCH (16:00)
[2017-11-12 16:01] VITALS: BP 113/79; PULSE 87; TEMP 37.3; O2SAT 98
--- NOTE | 2017-11-12 16:10 | Anesthesiology Progress Note ---
Anesthesia Progress Note Date of Service Nov 12, 2017. Progress Notes The patient is a 51 y/o female scheduled for aport insertion and ileostomy reversal tomorrow. She recently underwent a L VATS with lung nodule resection. She tolerated the surgery and was noted to be a Grade 2 airway with MAC 3 blade. She required a Duoneb postop and had a postop corneal abrasion that has resolved. PMH includes asthma, sleep apnea requiring CPAP, residual density in L lower lung, afib, HTN, CHF, moderate MR, hepatitis, GERD, abdominal wall cellulitis, TIA, type 2 DM on insulin, anemia, colon CA, morbid obesity, and recent steroid use. She has poor functional status although no CP or SOB at rest. Her CXR shows cardiomegaly with L lung base density. EKG shows afib with poor R wave progression. Labs are significant for hgb 10.5 and magnesium 1.7. On exam the patient has a thick neck and is a MP 3 airway. She has no upper teeth and few lower teeth. Her lungs are clear with decreased breath sounds on the lower left. Heart is irregular. Carotids are negative for bruits. The patient is an ASA 4. She was consented for general anesthesia +/- invasive monitoring. She was counseled to remain NPO after midnight except for sips of water with pills. I discussed the patient with Dr. Hodges.
--- NOTE | 2017-11-12 22:11 | Progress Note ---
Subjective Date of Service: Nov 12, 2017. Subjective Pt evaluation today including: conversation w/ patient 52 yo female reports no new complaints. She reports that she is waiting for the reversla of her ostomy which is tomorrow. Problem List Medical Problems: (1) Abdominal pain Status: Acute (2) Abscess of labia majora Status: Acute (3) Acute vomiting Status: Acute (4) Cellulitis of labia majora Status: Acute (5) Hyperglycemia Status: Acute (6) Hyperglycemia due to type 2 diabetes mellitus Status: Acute (7) Hypertension Status: Acute (8) Low back pain Status: Acute (9) Morbid obesity Status: Acute (10) New onset a-fib Status: Acute (11) Pulmonary nodule Status: Acute (12) Rectal bleed Status: Acute (13) Rectal bleeding Status: Acute (14) Rectal cancer Status: Acute (15) Sepsis Status: Acute (16) Shortness of breath Status: Acute (17) Skin abscess Status: Acute (18) Urinary tract infection Status: Acute Review of Systems All Other Systems: Reviewed and Negative Medications Current Inpatient Medications Medications (Trade) Dose Ordered Sig/Viviana Route Start Time Stop Time Status Last Admin Dose Admin Piperacillin Sod/ Tazobactam Sod 4.5 gm/Dextrose 120 ml @ 30 mls/hr Q8H IV 11/04/17 21:00 11/14/17 20:59 11/13/17 18:56 30 MLS/HR Miscellaneous Information (Consult) 1 ea UD PRN N/A 11/04/17 17:15 12/04/17 17:14 Albuterol (Ventolin Hfa Inhaler) 2 puffs Q6H PRN INH 11/04/17 18:30 12/04/17 18:29 Atorvastatin Calcium (Lipitor Tab) 20 mg HS PO 11/04/17 21:00 12/04/17 20:59 11/13/17 20:34 20 MG Famotidine (Pepcid Tab) 20 mg DAILY PO 11/05/17 08:00 12/05/17 08:59 11/12/17 09:43 20 MG Fluconazole (Diflucan Tab) 100 mg QAM PO 11/05/17 08:00 11/15/17 08:59 11/13/17 09:26 100 MG Furosemide (Lasix Tab) 20 mg QAM PO 11/05/17 08:00 12/05/17 08:59 11/13/17 09:27 20 MG Albuterol/ Ipratropium (Combivent Respimat Inh) 1 puffs QID INH 11/04/17 20:00 12/04/17 20:59 11/13/17 20:31 1 PUFFS Lactobacillus Acidophilus (Floranex Tab) 4 tab TID PO 11/04/17 20:00 12/04/17 20:59 11/13/17 20:34 4 TAB Lisinopril (Zestril Tab) 5 mg QAM PO 11/05/17 08:00 12/05/17 08:59 11/13/17 09:26 5 MG Loratadine (Claritin Tab) 10 mg QAM PO 11/05/17 08:00 12/05/17 08:59 11/13/17 09:26 10 MG Magnesium Oxide (Mag-Ox Tab) 400 mg DAILY PO 11/05/17 08:00 12/05/17 08:59 11/13/17 09:28 400 MG Metoprolol Succinate (Toprol Xl Tab) 50 mg DAILY PO 11/05/17 08:00 12/05/17 08:59 11/13/17 09:28 50 MG Montelukast Sodium (Singulair Tab) 10 mg HS PO 11/04/17 21:00 12/04/17 20:59 11/13/17 20:34 10 MG Potassium Chloride (Klor-Con M10) 10 meq QAM PO 11/05/17 08:00 12/05/17 08:59 11/13/17 09:26 10 MEQ Cholestyramine Resin (Questran Powder Light) 4 gm DAILY PO 11/05/17 08:00 12/05/17 08:59 11/12/17 09:45 4 GM Levothyroxine Sodium (Synthroid Tab) 1,200 mcg DAILYBB PO 11/05/17 06:30 12/05/17 06:29 11/12/17 06:23 1,200 MCG Al Hydrox/Mg Hydrox/Simethicone (Maalox Max Susp) 15 ml Q4H PRN PO 11/04/17 18:45 12/04/17 18:44 Magnesium Hydroxide (Milk Of Magnesia Susp) 30 ml Q6H PRN PO 11/04/17 18:45 12/04/17 18:44 Ondansetron HCl (Zofran Inj) 4 mg Q6H PRN IV 11/04/17 18:45 12/04/17 18:44 Lorazepam (Ativan Inj) 0.5 mg Q4H PRN IV 11/04/17 18:45 12/04/17 18:44 Lorazepam (Ativan Inj) 1 mg Q4H PRN IV 11/04/17 18:45 12/04/17 18:44 Glucose (Glucose 40% Gel) 15-30 GRAMS 15 GRAMS... UD PRN PO 11/04/17 18:45 12/04/17 18:44 Glucose (Glucose Chew Tab) 4-8 Tablets 4 Tabl... UD PRN PO 11/04/17 18:45 12/04/17 18:44 Dextrose (Dextrose 50% 50ML Syringe) 25-50ML OF 50% DW IV FOR... UD PRN IV 11/04/17 18:45 12/04/17 18:44 Glucagon (Glucagon Inj) 1 mg UD PRN SQ 11/04/17 18:45 12/04/17 18:44 Lorazepam 0.5 mg/ Syringe 1 ml @ 1 mls/min Q4H PRN IV 11/04/17 20:30 12/04/17 20:29 Lorazepam 1 mg/ Syringe 1 ml @ 1 mls/min Q4H PRN IV 11/04/17 20:30 12/04/17 20:29 Miscellaneous Information (Pharmacy Tpn/ Ppn Consult Active) 1 ea UD PRN N/A 11/05/17 10:00 12/05/17 09:59 Dextrose 1,000 ml @ 0 mls/hr Q0M PRN IV 11/05/17 16:00 12/05/17 15:59 Heparin Sodium (Porcine) (Heparin 10 Unit/ ml 5 ml Flush) 5 ml PRN PRN FLUSH 11/05/17 14:45 12/05/17 14:44 Diphenhydramine HCl (Benadryl Cap) 25 mg Q6H PRN PO 11/06/17 18:45 12/06/17 18:44 Acetaminophen 1000 mg/Empty Bag 100 ml @ 400 mls/hr Q8H IV 11/08/17 18:00 12/08/17 17:59 2/13/18 18:25 400 MLS/HR Enoxaparin Sodium (Lovenox Inj) 40 mg DAILY@0600 SQ 11/09/17 06:00 12/09/17 05:59 11/12/17 06:15 40 MG Miscellaneous Information (Consult Glycemic Management Pharmacy) 1 ea UD PRN N/A 11/09/17 09:45 12/09/17 09:44 Insulin Glargine (Lantus Solostar Pen) 10 units PM SC 11/11/17 21:00 12/11/17 20:59 Future hold 11/13/17 20:35 10 UNITS Nutrition (Parenteral) 0 ml @ 0 mls/hr TODAY@1600 IV 11/13/17 16:00 11/14/17 15:59 11/13/17 16:21 0 MLS/HR Naloxone HCl (Narcan Inj) 0.1 mg Q5M PRN IV 11/13/17 14:45 12/13/17 14:44 Hydromorphone HCl (Dilaudid House Decorator) 25 mg PRN PRN IV 11/13/17 14:45 11/27/17 14:44 11/13/17 16:06 25 MG Sodium Chloride 1,000 ml @ 15 mls/hr Q24H IV 11/13/17 15:45 12/13/17 15:44 11/13/17 16:34 15 MLS/HR Insulin Aspart (novoLOG ASPART) SLIDING SCALE PARAMETER ACHS SC 11/13/17 21:00 12/13/17 20:59 11/13/17 20:36 2 UNITS Objective Vital Signs Date Time Temp Pulse Resp B/P (MAP) Pulse Ox O2 Delivery O2 Flow Rate FiO2 11/12/17 16:01 37.3 87 18 113/79 (90) 98 Room Air 11/12/17 08:43 36.7 94 20 130/82 (98) 97 Room Air 11/12/17 08:06 97 Room Air 11/12/17 07:15 Room Air 11/12/17 00:39 37.5 98 18 140/82 (101) 97 Room Air 11/12/17 00:20 Room Air 11/11/17 23:15 93 21 Physical Exam Comments: General Appearance: WD/WN, no apparent distress, + obese (morbidly) On Room Air Eyes: PERRL, EOMI ENT: hearing grossly normal, pharynx normal, + pertinent finding (MMM) Neck: supple, no JVD Respiratory/Chest: chest non-tender, breath sounds slightly diminished at the left base, dressing appears C/d/i, no respiratory distress, no accessory muscle use Cardiovascular: + systolic murmur, + irregularly irregular (rate controlled) Abdomen: + pertinent finding (Obese, + mildly erythematous pannus involving the folds is improving, + RLQ abdominal ostomy without bag on, semi-packed 4x4 gauze, + small 1x1cm lesion in pannus fold appears to be healing, livan removed from midline incision healing well, +tenderness with deep palpation improving.) Extremities: +PICC line RUE, non-tender, no pedal edema, no calf tenderness Neurologic/Psychiatric: alert, normal affect, oriented x 3 Laboratory Results Last 24 Hours Test 11/12/17 08:21 11/12/17 08:30 11/12/17 10:49 11/12/17 17:39 Bedside Glucose 84 mg/dl 107 mg/dl White Blood Count 8.42 K/uL Red Blood Count 3.90 M/uL Hemoglobin 10.1 g/dL Hematocrit 31.0 % Mean Corpuscular Volume 79.5 fL Mean Corpuscular Hemoglobin 25.9 pg Mean Corpuscular Hemoglobin Concent 32.6 g/dl RDW Standard Deviation 44.4 fL RDW Coefficient of Variation 15.5 % Platelet Count 397 K/uL Mean Platelet Volume 10.0 fL Sodium Level 136 mmol/L Potassium Level 4.4 mmol/L Chloride Level 102 mmol/L Carbon Dioxide Level 28 mmol/L Anion Gap 6.0 mmol/L Blood Urea Nitrogen 26 mg/dl Creatinine 0.59 mg/dl Est Creatinine Clear Calc Drug Dose 112.6 ml/min Estimated GFR () 120.4 Estimated GFR (Non- 103.9 BUN/Creatinine Ratio 43.6 Random Glucose 69 mg/dl Calcium Level 9.1 mg/dl Phosphorus Level 3.3 mg/dl Magnesium Level 1.7 mg/dl Iron Level 31 mcg/dl Total Iron Binding Capacity 213 mcg/dl Ferritin 141.4 ng/ml Total Bilirubin 0.5 mg/dl Aspartate Amino Transf (AST/SGOT) 10 U/L Alanine Aminotransferase (ALT/SGPT) 7 U/L Alkaline Phosphatase 79 U/L C-Reactive Protein 5.27 mg/dl Albumin 2.1 gm/dl Prealbumin 11.5 mg/dl Triglycerides Level 108 mg/dl Carcinoembryonic Antigen 0.9 ng/ml Test 11/12/17 20:48 Bedside Glucose 132 mg/dl Assessment and Plan 51 yo female here with the surgical site infection of abdominal cellulitis with concern for possible abscess Severe Abdominal wall cellulitis, possible abscess Severe Protein Calorie Malnutrition - ID on board- - Continue Zosyn (started on 11/03), follow wound cultures. Was on cipro/ flagyl prior to admission. - Gen surgical consulted- keeping on clear liquid diet, plans for ileostomy reversal during this admission but they would like cellulitis to be more improved - Tentatively plan for ileostomy reversal and Mediport placement on Sunday morning (11/13) - PICC line inserted on 11/05, TPN started 11/05 per dietary/pharmacy recs - Wound consulted for ostomy site care - hold Eliquis - Encouraged to ambulate Loop ileostomy -Reversal scheduled for tomorrow. 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 Delatorre on board: s/p LLL wedge resection 11/08. Frozen section looks like metastatic adenocarcinoma, pathology pending - Chest tube removed 11/09, doing well, required 1 day stay in the ICU but now out. - Oncology consulted- appreciate recs - Dr. Quintana will follow - CXR from 11/11 reviewed showing LLL infiltrate but appears improved compared to imaging on 11/09 prior to wedge resection. On room air. - Patient is now coughing up some dark red bloody mucus - -Dr. Tapia confirmed the lung nodule was metastatic colon cancer. Will start chemotherapy likely as out patient. Atrial fibrillation - maintained on her metoprolol succ 50 mg daily - Holding Eliquis (last taken 11/04) HLD - Lipitor will be continued Hypertension - cont lisinopril 5 mg daily DM II - She's been on various diabetic regimens over the last few months - currently on Tojeo at 15 U will convert this to Lantus 15 U QPM and ISS with accuchecks achs - glycemic pharmacy to help manage with TPN Asthma - Cont Combivent and Singulair Reverse hypothyroidism - she appears clinically euthyroid and she is on a significantly high dose of Synthroid in the chart documented at 1200 g a day obstructive sleep apnea - supply her CPAP Her morbid obesity directly impacts both her wound care her healing and her sleep apnea DVT ppx : SCDs, no chemical anticoagulation at this time CODE STATUS: FULL Dispostion: Anticipated prolonged hospital course due to severity of abdominal cellulitis, needs for improved nutritional status, planned ileostomy reversal on Sunday and post-op healing. From home, will need CM to assist with dc planning, was from [facility].
[2017-11-12] MEDS: ATORVASTATIN 20 MG TAB PO SCH (22:16)
[2017-11-12] MEDS: MONTELUKAST SOD 10 MG TAB PO SCH (22:20)
[2017-11-12] MEDS ORDERED: INSULIN GLARGINE SOLOSTAR 100 UNITS/ML 3 ML PEN SC ONE (22:45)
[2017-11-12 22:47] VITALS: BP 122/82; PULSE 82; TEMP 37.1; O2SAT 95
[2017-11-13] VITALS (7 sets, daily range): BP systolic 110–125; BP diastolic 73–84; PULSE 82–90; TEMP 36.4–37.5; O2SAT 95–100
[2017-11-13] MEDS: ACETAMINOPHEN IV 1,000 MG in EMPTY BAG 0 ML IV SCH ×3 (02:09→18:25)
[2017-11-13] MEDS: PIPERACILL/TAZOBAC IV 4.5 GM in DEXTROSE 5% 100ML 100 ML IV SCH ×3 (02:42→18:56)
[2017-11-13] MEDS: LEVOTHYROXINE 200 MCG TAB PO SCH (06:00)
[2017-11-13] MEDS: INSULIN ASPART 100 UNITS/ML 3 ML PEN SC SCH ×4 (06:00→20:36)
[2017-11-13] MEDS: ENOXAPARIN 40 MG/0.4 ML SYR SQ SCH (06:00)
[2017-11-13] MEDS: OCTREOTIDE ACETATE 100 MCG/ML VIAL SQ SCH ×2 (06:02→14:00)
[2017-11-13 08:55] LABS: CALCIUM 8.8 mg/dl (8.5-10.1); CREATININE 0.58 mg/dl (0.60-1.20); PHOSPHORUS 3.5 mg/dl (2.5-4.9); POTASSIUM 4.3 mmol/L (3.5-5.1)
[2017-11-13] MEDS: IPRATROPIUM BROMIDE/ALBUTEROL respimat INH INH SCH ×4 (09:25→20:31)
[2017-11-13] MEDS: FLUCONAZOLE 100 MG TAB PO SCH (09:26)
[2017-11-13] MEDS: LISINOPRIL 5 MG TAB PO SCH (09:26)
[2017-11-13] MEDS: POTASSIUM CHLORIDE 10 MEQ TABCR PO SCH (09:26)
[2017-11-13] MEDS: LORATADINE 10 MG TAB PO SCH (09:26)
[2017-11-13] MEDS: FUROSEMIDE 20 MG TAB PO SCH (09:27)
[2017-11-13] MEDS: LACTOBACILLUS ACIDOPHILUS (FLORANEX) TAB PO SCH ×3 (09:27→20:34)
[2017-11-13] MEDS: METOPROLOL SUCC 50MG EXT REL TAB PO SCH (09:28)
[2017-11-13] MEDS: MAGNESIUM OXIDE 400 MG TAB PO SCH (09:28)
[2017-11-13] MEDS: FAMOTIDINE 20 MG TAB PO SCH (09:32)
[2017-11-13] MEDS: CHOLESTYRAMINE LIGHT 4 GM PKT PO SCH (09:33)
[2017-11-13] MEDS ORDERED: PHENYLEPHRINE 100MCG/ML 5ML SYR IV PRN (11:00)
[2017-11-13] MEDS ORDERED: ONDANSETRON INJ 2 MG/ML 2 ML VIAL IV PRN (11:00)
[2017-11-13] MEDS ORDERED: PROMETHAZINE HCL INJ 12.5 MG in SODIUM CHLORIDE 0.9% 50ML 50 ML IV PRN (11:00)
[2017-11-13] MEDS ORDERED: ATROPINE SULFATE 0.1 MG/ML 5ML SYR IV PRN (11:00)
[2017-11-13] MEDS ORDERED: LABETALOL HCL IV 5 MG/ML 20ML IV PRN (11:00)
[2017-11-13] MEDS ORDERED: EpHEDrine SULFATE INJ 50 MG/ML AMP IV PRN (11:00)
[2017-11-13] MEDS ORDERED: HYDROmorphone INJ 1 MG/ML SYR IV PRN (11:00)
--- NOTE | 2017-11-13 11:07 | History & Physical Bridge Note ---
H&P Re-Evaluation Bridge Note: I have examined the patient, reviewed the History & Physical and in the interval since the performance of the History & Physical I have noted the following changes of clinical significance: no change. discussed procedure again as well as risks ( bleeding/infection/dvt/pe/mi/injury to other organs/ pneumothorax/leaks/port malfunction/injury to bowel etc...). questions answered. ok to proceed.
[2017-11-13] MEDS ORDERED: MIDAZOLAM HCL 1 MG/ML 2ML VIAL ONE (11:47)
[2017-11-13] MEDS ORDERED: FENTANYL CITRATE INJ 50 MCG/1 ML 2 ML VIAL ONE ×2 (11:47→13:26)
[2017-11-13] MEDS ORDERED: HEPARIN SOD (PORCINE) 1000 UNIT/ML 10 ML VIAL ONE (12:26)
[2017-11-13] MEDS ORDERED: BUPIVACAINE/EPINEPHRINE 0.5% MPF 1:200,000 30 ML VIAL ONE (12:26)
[2017-11-13] MEDS ORDERED: GENTAMICIN SULFATE 40 MG/ML 2 ML VIAL ONE (12:43)
[2017-11-13] MEDS ORDERED: VANCOMYCIN HCL 1000MG/20ML VIAL ONE (12:43)
[2017-11-13] MEDS ORDERED: ONDANSETRON INJ 2 MG/ML 2 ML VIAL ONE (13:40)
[2017-11-13] MEDS ORDERED: LIDOCAINE HCL 2% 2 ML VIAL (20MG/ML) ONE (13:40)
[2017-11-13] MEDS ORDERED: PHENYLEPHRINE HCL INJ 10 MG/ML VIAL ONE (13:40)
[2017-11-13] MEDS ORDERED: ROCURONIUM BROMIDE 10 MG/ML 5 ML VIAL IV ONE (13:40)
[2017-11-13] MEDS ORDERED: NEOSTIGMINE METHYLSULFATE 5 MG/5 ML SYR ONE (13:40)
[2017-11-13] MEDS ORDERED: GLYCOPYRROLATE INJ 0.2 MG/ML VIAL ONE (13:40)
[2017-11-13] MEDS ORDERED: PROPOFOL IV EMULSION 10 MG/ML 20 ML VIAL IV ONE (13:40)
--- NOTE | 2017-11-13 14:26 | [facility] Post Operative Brief Note ---
Immediate Operative Summary Operative Date Nov 13, 2017. Pre-Operative Diagnosis Need for Long-Term Intravenous Access; Scheduled Reversal of Ileostomy Post-Operative Diagnosis Need for Long-Term Intravenous Access; Scheduled Reversal of Ileostomy Procedure(s) Performed Insertion of Infusaport Left Subclavian (Procedure #1) Ileostomy Reversal with Application of Stimulan Beads (Procedure #2) Surgeon Dr. Mukherjee Terminal Press Operator Surgeon(s) Dr. Villalobos/ SOREN De León Estimated Blood Loss 10 mL Findings Consistent with Post-Op Diagnosis Specimens A. Ileostomy Drains None Anesthesia Type General Complication(s) none Disposition Disposition: Recovery Room / PACU
[2017-11-13] MEDS ORDERED: NALOXONE HCL 0.4 MG/1 ML VIAL/CARP IV PRN (14:45)
--- NOTE | 2017-11-13 14:49 | Medical Student: [facility] ---
Immediate Operative Summary Operative Date Nov 13, 2017. Pre-Operative Diagnosis 1. Need for intermediate frame tender port with IV access 2. Scheduled ileostomy reversal Post-Operative Diagnosis 1. Need for penitentiary port with IV access 2. Scheduled ileostomy reversal Procedure(s) Performed 1. Left Subclavian Infusaport Insertion 2. Reversal of Ileostomy (with use of Stimulan Beads) Surgeon Dr. Rogers Seed Specialist Surgeon(s) DANIEL Garza Estimated Blood Loss 10ml Findings Consistent with post-op diagnosis. Good viable bowel tissue. Specimens A. Ileostomy Drains none Anesthesia general Complication(s) None Disposition Recovery Room / PACU
--- NOTE | 2017-11-13 14:51 | [facility] Operative Report ---
Operative Report Operative Date Nov 13, 2017. Pre-Operative Diagnosis Need for Long-Term Intravenous Access; Scheduled Reversal of Ileostomy Post-Operative Diagnosis Need for Long-Term Intravenous Access; Scheduled Reversal of Ileostomy Procedure(s) Performed Insertion of Infusaport Left Subclavian (Procedure #1) Ileostomy Reversal with Application of Stimulan Beads (Procedure #2) Surgeon Dr. Mukherjee Square Dance Caller Surgeon(s) Dr. Villalobos/ SOREN De León Estimated Blood Loss 10 ml Specimens A. Ileostomy Drains None Anesthesia Type General Complication(s) none Disposition Recovery Room / PACU Description of Procedure After informed consent was obtained the patient was taken to the operating room and placed in a supine position. After successful intubation the left arm was tucked in the upper chest was sterilely prepped and draped in usual fashion. I Began with a horizontal incision below the angle of the clavicle with a 15 blade scalpel and carried down through the soft tissue using electrocautery. Blunt finger dissection was used to create a housing pocket for the port. An 18 -gauge needle was then used to access the left subclavian vein without difficulty. We then advanced a guidewire under fluoroscopy into the superior vena cava. Next we cut the catheter to appropriate size. We measured this by using fluoroscopy. Next I removed the needle and advanced a vascular dilator with a peel-away sheath over top of the guidewire again under fluoroscopy. We then removed the guidewire and vascular dilator leaving the peel-away sheath behind. The Mediport was then inserted through the peel-away sheath. The sheath was then peeled away leaving the catheter behind. It flushed easily with heparin solution and it also easily withdrew dark venous blood. The entire system including the port had been flushed with heparin solution prior to placement. We then secured the port itself using 0 Ethibond with 3 point fixation. The wound was then thoroughly irrigated. Was closed in 2 layers using 3-0 Monocryl for the deeper layer and 3-0 Monocryl for the skin. A sterile dressing was applied. A postoperative portable chest x-ray is currently pending to rule out pneumothorax and to verify catheter position We then completely took down all of the drapes. We completely reprepped and draped the entire abdomen. I re-scrubbed changed gown and gloves. At this point in time Dr. Villalobos scrubbed in the case to assist as well. We made an elliptical incision around the ileostomy and used electrocautery to carry this down through the soft tissue. We continued to used traction countertraction and electrocautery as well as blunt dissection to follow the ileostomy and mesentery down to the fascia itself. We were then able to elevate the fascia with Allis clamps and using a right angle clamp were able to come around and separate the ileostomy and its mesentery from the surrounding fascia. Eventually we were able to get around the entire bowel and mesentery in 360 and deliver it out of the incision. We stapled off the bowel below the thickened portion where there was nice viable loops of small bowel using a LOUIE Brown cartridge stapler. We also stapled off the mesentery and handed off the thickened ileostomy portion that was connected to the skin. This left us with 2 fresh limbs of small bowel 1 proximal and distal. We created small enterotomies in each one and used a LOUIE Brown cartridge stapler to create a side -to-side small bowel anastomosis. Using the same stapler we closed the common enterotomy. 0 Vicryl was then used to close the mesenteric defect. 3-0 silk was also used to oversew all the staple lines. The anastomosis looked patent. There was good blood supply with no evidence of ischemia. We able to easily dunked this back down into the abdominal cavity. We then grasped the fascial edges and elevated them. I closed the fascia using #1 PDS in a running fashion. We thoroughly irrigated the wound. There was adequate hemostasis. We placed stimulan beads treated with vancomycin and gentamicin into the wound. These had been prepared previously on the back table. Once we had the beads in we loosely closed the soft tissue using 2-0 Vicryl. Skin was closed loosely using 0 Ethibond simple interrupted fashion. A silver dressing was applied. The patient was awaken extubated and transferred recovery in stable condition. My physician's special events assistant was present throughout the entire case. He assisted with prepping the patient as well as retraction throughout the case. He helped with wound closure and dressing placement at the end of the case. I attest to the content of the Intraoperative Record and any orders documented therein. Any exceptions are noted below.
[2017-11-13] MEDS: FENTANYL CITRATE INJ 50 MCG/1 ML 2 ML VIAL IV PRN ×4 (15:00→15:15)
[2017-11-13] MEDS: HYDROmorphone HCL 0.5MG/ML 50 ML CASSETTE IV PRN ×3 (15:36→23:12)
--- NOTE | 2017-11-13 15:43 | DIAGNOSTIC IMAGING REPORT ---
CHEST ONE VIEW PORTABLE HISTORY: 52 years-old Female port placement status post placement of a left subclavian Jvcxph-y-Bkoi catheter COMPARISON: Chest radiograph 11/11/2017 TECHNIQUE: Portable AP view of the chest FINDINGS: Status post placement of a left subclavian Gyjvdz-z-Vnji catheter with distal tip in the region of the mid SVC. Right-sided PICC redemonstrated with distal tip in the region of the superior cavoatrial junction. No postprocedural pneumothorax identified. Cardiac silhouette is again moderately enlarged. There is pulmonary vascular congestion with mildly worsened hazy left perihilar and left lung base opacity and probable small left pleural effusion. Calcifications of the left chest wall redemonstrated. IMPRESSION: 1. Status post placement of a left subclavian Yhlnxi-a-Qytm catheter with distal tip terminating in the expected region of the mid SVC. No postprocedural pneumothorax. 2. Cardiomegaly and pulmonary vascular congestion with mildly progressive left perihilar and left lung base opacities. The above report was generated using voice recognition software. It may contain grammatical, syntax or spelling errors. Electronically signed by: Jayjay Crowder M.D. 11/13/2017 3:42 PM Dictated Date/Time: 11/13/2017 3:37 PM
[2017-11-13] MEDS ORDERED: CUSTOM CENTRAL PN 1 BAG IV SCH (16:00)
--- NOTE | 2017-11-13 16:00 | Anesthesiology Progress Note ---
Anesthesia Post Op Note Date & Time Nov 13, 2017 at 16:00 Vital Signs Pain Intensity: 4 Vital Signs Past 12 Hours Date Time Temp Pulse Resp B/P (MAP) Pulse Ox O2 Delivery O2 Flow Rate FiO2 11/13/17 15:35 86 18 121/86 97 Oxymask 3 11/13/17 15:20 74 18 119/85 97 Oxymask 3 11/13/17 15:10 36.2 82 18 115/78 96 Oxymask 3 11/13/17 15:00 81 18 120/89 97 Oxymask 5 11/13/17 14:50 80 18 120/82 97 Oxymask 10 11/13/17 14:44 36.3 88 16 126/93 100 Oxymask 15 11/13/17 07:45 Room Air 11/13/17 06:56 36.7 82 18 119/79 (92) 95 Room Air Notes Mental Status: alert / awake / arousable, participated in evaluation Pt Amnestic to Procedure: Yes Nausea / Vomiting: adequately controlled Pain: adequately controlled Airway Patency, RR, SpO2: stable & adequate BP & HR: stable & adequate Hydration State: stable & adequate Anesthetic Complications: no major complications apparent
[2017-11-13] MEDS: SODIUM CHLORIDE 0.9% 1000ML 1,000 ML IV SCH (16:34)
[2017-11-13] MEDS ORDERED: NURSING VERBAL MED ORDER ONE (18:45)
[2017-11-13] MEDS: MONTELUKAST SOD 10 MG TAB PO SCH (20:34)
[2017-11-13] MEDS: ATORVASTATIN 20 MG TAB PO SCH (20:34)
[2017-11-13] MEDS: INSULIN GLARGINE SOLOSTAR 100 UNITS/ML 3 ML PEN SC SCH (20:35)
[2017-11-14] VITALS (9 sets, daily range): BP systolic 90–126; BP diastolic 53–86; PULSE 79–94; TEMP 36.7–37.4; O2SAT 91–100
[2017-11-14] MEDS: ACETAMINOPHEN IV 1,000 MG in EMPTY BAG 0 ML IV SCH ×3 (02:04→18:44)
[2017-11-14] MEDS: PIPERACILL/TAZOBAC IV 4.5 GM in DEXTROSE 5% 100ML 100 ML IV SCH ×3 (02:26→18:52)
[2017-11-14] MEDS: LEVOTHYROXINE 200 MCG TAB PO SCH (05:43)
[2017-11-14] MEDS: ENOXAPARIN 40 MG/0.4 ML SYR SQ SCH (05:46)
[2017-11-14] MEDS: HYDROmorphone HCL 0.5MG/ML 50 ML CASSETTE IV PRN ×2 (07:17→14:50)
[2017-11-14] MEDS: INSULIN ASPART 100 UNITS/ML 3 ML PEN SC SCH ×4 (08:00→21:00)
--- NOTE | 2017-11-14 08:09 | Surgery Progress Note ---
Surgery Progress Note Date of Service Nov 14, 2017. Subjective Post OP Day: 1 + feeling well, + complaints (difficult getting OOB), + pain controlled, + using ADAPTIVE PHYSICAL EDUCATION SPECIALIST, No nausea Objective Vital Signs: Date Time Temp Pulse Resp B/P (MAP) Pulse Ox O2 Delivery O2 Flow Rate FiO2 11/14/17 07:05 36.7 91 16 111/74 (86) 93 Nasal Cannula 3.0 11/14/17 06:30 94 126/86 (99) 95 Room Air 11/14/17 03:55 36.8 79 16 95/66 (76) 100 Nasal Cannula 3.0 11/14/17 00:10 100 Nasal Cannula 3.0 11/13/17 23:40 37.5 90 18 110/73 (85) 100 Nasal Cannula 3.0 11/13/17 19:14 36.7 89 18 125/84 (98) 98 Nasal Cannula 3.0 11/13/17 18:04 36.5 89 16 118/80 (93) 98 Nasal Cannula 3.0 11/13/17 17:02 36.5 89 16 120/79 (93) 98 Nasal Cannula 3.0 11/13/17 16:30 36.5 89 16 120/83 (95) 98 Nasal Cannula 3.0 11/13/17 16:00 36.4 82 16 120/83 (95) 98 Nasal Cannula 3.0 11/13/17 16:00 Nasal Cannula 3.0 11/13/17 16:00 Nasal Cannula 3.0 11/13/17 15:35 86 18 121/86 97 Oxymask 3 11/13/17 15:20 74 18 119/85 97 Oxymask 3 11/13/17 15:10 36.2 82 18 115/78 96 Oxymask 3 11/13/17 15:00 81 18 120/89 97 Oxymask 5 11/13/17 14:50 80 18 120/82 97 Oxymask 10 11/13/17 14:44 36.3 88 16 126/93 100 Oxymask 15 Physical Exam: urine output (550) Respiratory/Chest: + pertinent finding (left mediport dressing dry) Abdomen: soft Incision(s): clean, dry Laboratory Results: Results Past 24 Hours Test 11/13/17 13:56 11/13/17 14:47 11/13/17 18:02 11/13/17 20:32 Range/Units Bedside Glucose 137 157 200 212 70-90 mg/dl Test 11/14/17 04:44 Range/Units Assessment & Plan POD 1 takedown loop ileostomy, left A-port POD 5 thoracoscopy for biopsy LLL lesion stable post op, cont ADAPTIVE PHYSICAL EDUCATION SPECIALIST continue TPN, advance to full liquids keep steinberg for now, d/c later today or in AM PT/OT, she hopes to return home rather then rehab 10 days IV Zosyn will complete today
--- NOTE | 2017-11-14 08:44 | Progress Note ---
Subjective Date of Service: Nov 13, 2017. Subjective Patient reports having some mild to moderate abdominal pain after surgery. Patient denies any fever, chills, nausea, vomiting. Problem List Medical Problems: (1) Abdominal pain Status: Acute (2) Abscess of labia majora Status: Acute (3) Acute vomiting Status: Acute (4) Cellulitis of labia majora Status: Acute (5) Hyperglycemia Status: Acute (6) Hyperglycemia due to type 2 diabetes mellitus Status: Acute (7) Hypertension Status: Acute (8) Low back pain Status: Acute (9) Morbid obesity Status: Acute (10) New onset a-fib Status: Acute (11) Pulmonary nodule Status: Acute (12) Rectal bleed Status: Acute (13) Rectal bleeding Status: Acute (14) Rectal cancer Status: Acute (15) Sepsis Status: Acute (16) Shortness of breath Status: Acute (17) Skin abscess Status: Acute (18) Urinary tract infection Status: Acute Review of Systems All Other Systems: Reviewed and Negative Medications Current Inpatient Medications Medications (Trade) Dose Ordered Sig/Viviana Route Start Time Stop Time Status Last Admin Dose Admin Miscellaneous Information (Consult) 1 ea UD PRN N/A 11/04/17 17:15 12/04/17 17:14 Albuterol (Ventolin Hfa Inhaler) 2 puffs Q6H PRN INH 11/04/17 18:30 12/04/17 18:29 Atorvastatin Calcium (Lipitor Tab) 20 mg HS PO 11/04/17 21:00 12/04/17 20:59 11/13/17 21:22 20 MG Famotidine (Pepcid Tab) 20 mg DAILY PO 11/05/17 08:00 12/05/17 08:59 11/13/17 09:40 20 MG Fluconazole (Diflucan Tab) 100 mg QAM PO 11/05/17 08:00 11/15/17 08:59 11/13/17 09:16 100 MG Furosemide (Lasix Tab) 20 mg QAM PO 11/05/17 08:00 12/05/17 08:59 11/13/17 09:13 20 MG Albuterol/ Ipratropium (Combivent Respimat Inh) 1 puffs QID INH 11/04/17 20:00 12/04/17 20:59 2/13/18 21:20 1 PUFFS Lactobacillus Acidophilus (Floranex Tab) 4 tab TID PO 11/04/17 20:00 12/04/17 20:59 11/13/17 21:22 4 TAB Lisinopril (Zestril Tab) 5 mg QAM PO 11/05/17 08:00 12/05/17 08:59 11/13/17 09:17 5 MG Loratadine (Claritin Tab) 10 mg QAM PO 11/05/17 08:00 12/05/17 08:59 11/13/17 09:12 10 MG Magnesium Oxide (Mag-Ox Tab) 400 mg DAILY PO 11/05/17 08:00 12/05/17 08:59 11/13/17 09:12 400 MG Metoprolol Succinate (Toprol Xl Tab) 50 mg DAILY PO 11/05/17 08:00 12/05/17 08:59 11/13/17 09:12 50 MG Montelukast Sodium (Singulair Tab) 10 mg HS PO 11/04/17 21:00 12/04/17 20:59 11/13/17 21:23 10 MG Potassium Chloride (Klor-Con M10) 10 meq QAM PO 11/05/17 08:00 12/05/17 08:59 11/13/17 09:16 10 MEQ Cholestyramine Resin (Questran Powder Light) 4 gm DAILY PO 11/05/17 08:00 12/05/17 08:59 11/13/17 09:13 4 GM Levothyroxine Sodium (Synthroid Tab) 1,200 mcg DAILYBB PO 11/05/17 06:30 12/05/17 06:29 11/13/17 05:43 1,200 MCG Al Hydrox/Mg Hydrox/Simethicone (Maalox Max Susp) 15 ml Q4H PRN PO 11/04/17 18:45 12/04/17 18:44 Magnesium Hydroxide (Milk Of Magnesia Susp) 30 ml Q6H PRN PO 11/04/17 18:45 12/04/17 18:44 Ondansetron HCl (Zofran Inj) 4 mg Q6H PRN IV 11/04/17 18:45 12/04/17 18:44 11/13/17 09:40 4 MG Lorazepam (Ativan Inj) 0.5 mg Q4H PRN IV 11/04/17 18:45 12/04/17 18:44 Lorazepam (Ativan Inj) 1 mg Q4H PRN IV 11/04/17 18:45 12/04/17 18:44 Glucose (Glucose 40% Gel) 15-30 GRAMS 15 GRAMS... UD PRN PO 11/04/17 18:45 12/04/17 18:44 Glucose (Glucose Chew Tab) 4-8 Tablets 4 Tabl... UD PRN PO 11/04/17 18:45 12/04/17 18:44 Dextrose (Dextrose 50% 50ML Syringe) 25-50ML OF 50% DW IV FOR... UD PRN IV 11/04/17 18:45 12/04/17 18:44 Glucagon (Glucagon Inj) 1 mg UD PRN SQ 11/04/17 18:45 12/04/17 18:44 Lorazepam 0.5 mg/ Syringe 1 ml @ 1 mls/min Q4H PRN IV 11/04/17 20:30 12/04/17 20:29 Lorazepam 1 mg/ Syringe 1 ml @ 1 mls/min Q4H PRN IV 11/04/17 20:30 12/04/17 20:29 Miscellaneous Information (Pharmacy Tpn/ Ppn Consult Active) 1 ea UD PRN N/A 11/05/17 10:00 12/05/17 09:59 Dextrose 1,000 ml @ 0 mls/hr Q0M PRN IV 11/05/17 16:00 12/05/17 15:59 Heparin Sodium (Porcine) (Heparin 10 Unit/ ml 5 ml Flush) 5 ml PRN PRN FLUSH 11/05/17 14:45 12/05/17 14:44 Diphenhydramine HCl (Benadryl Cap) 25 mg Q6H PRN PO 11/06/17 18:45 12/06/17 18:44 Acetaminophen 1000 mg/Empty Bag 100 ml @ 400 mls/hr Q8H IV 11/08/17 18:00 12/08/17 17:59 11/14/17 18:44 400 MLS/HR Enoxaparin Sodium (Lovenox Inj) 40 mg DAILY@0600 SQ 11/09/17 06:00 12/09/17 05:59 11/14/17 05:46 40 MG Miscellaneous Information (Consult Glycemic Management Pharmacy) 1 ea UD PRN N/A 11/09/17 09:45 12/09/17 09:44 Insulin Glargine (Lantus Solostar Pen) 10 units PM SC 11/11/17 21:00 12/11/17 20:59 Future hold 11/14/17 21:21 10 UNITS Naloxone HCl (Narcan Inj) 0.1 mg Q5M PRN IV 11/13/17 14:45 12/13/17 14:44 Hydromorphone HCl (Dilaudid [place] Blank Handler) 25 mg PRN PRN IV 11/13/17 14:45 11/27/17 14:44 11/14/17 14:50 25 MG Sodium Chloride 1,000 ml @ 15 mls/hr Q24H IV 11/13/17 15:45 12/13/17 15:44 11/14/17 15:38 15 MLS/HR Insulin Aspart (novoLOG ASPART) SLIDING SCALE PARAMETER ACHS SC 11/13/17 21:00 12/13/17 20:59 11/14/17 18:47 2 UNITS Nutrition (Parenteral) 0 ml @ 0 mls/hr TODAY@1600 IV 11/14/17 16:00 11/15/17 15:59 11/14/17 15:38 0 MLS/HR Insulin Aspart (novoLOG ASPART) SLIDING SCALE PARAMETER 0000 SC 11/15/17 00:00 11/15/17 00:01 Objective Vital Signs Date Time Temp Pulse Resp B/P (MAP) Pulse Ox O2 Delivery O2 Flow Rate FiO2 11/14/17 07:05 36.7 91 16 111/74 (86) 93 Nasal Cannula 3.0 11/14/17 06:30 94 126/86 (99) 95 Room Air 11/14/17 03:55 36.8 79 16 95/66 (76) 100 Nasal Cannula 3.0 11/14/17 00:10 100 Nasal Cannula 3.0 11/13/17 23:40 37.5 90 18 110/73 (85) 100 Nasal Cannula 3.0 11/13/17 19:14 36.7 89 18 125/84 (98) 98 Nasal Cannula 3.0 11/13/17 18:04 36.5 89 16 118/80 (93) 98 Nasal Cannula 3.0 11/13/17 17:02 36.5 89 16 120/79 (93) 98 Nasal Cannula 3.0 11/13/17 16:30 36.5 89 16 120/83 (95) 98 Nasal Cannula 3.0 11/13/17 16:00 36.4 82 16 120/83 (95) 98 Nasal Cannula 3.0 11/13/17 16:00 Nasal Cannula 3.0 11/13/17 16:00 Nasal Cannula 3.0 11/13/17 15:35 86 18 121/86 97 Oxymask 3 11/13/17 15:20 74 18 119/85 97 Oxymask 3 11/13/17 15:10 36.2 82 18 115/78 96 Oxymask 3 11/13/17 15:00 81 18 120/89 97 Oxymask 5 11/13/17 14:50 80 18 120/82 97 Oxymask 10 11/13/17 14:44 36.3 88 16 126/93 100 Oxymask 15 Physical Exam Comments: General Appearance: WD/WN, no apparent distress, + obese (morbidly) On Room Air Eyes: PERRL, EOMI ENT: hearing grossly normal, pharynx normal, + pertinent finding (MMM) Neck: supple, no JVD Respiratory/Chest: chest non-tender, breath sounds slightly diminished at the left base, dressing appears C/d/i, no respiratory distress, no accessory muscle use Cardiovascular: + systolic murmur, + irregularly irregular (rate controlled) Abdomen: + pertinent finding (Obese, + mildly erythematous pannus involving the folds is improving,osotmy no longer presnt, surigcal lesion covered in dry dressing) Extremities: +PICC line RUE, non-tender, no pedal edema, no calf tenderness Neurologic/Psychiatric: alert, normal affect, oriented x 3 Laboratory Results Last 24 Hours Test 11/13/17 13:56 11/13/17 14:47 11/13/17 18:02 11/13/17 20:32 Bedside Glucose 137 mg/dl 157 mg/dl 200 mg/dl 212 mg/dl Test 11/14/17 04:44 11/14/17 08:12 Bedside Glucose 132 mg/dl Assessment and Plan 51 yo female here with the surgical site infection of abdominal cellulitis with concern for possible abscess Severe Abdominal wall cellulitis, possible abscess Severe Protein Calorie Malnutrition - ID on board- - Continue Zosyn (started on 11/03), follow wound cultures. Was on cipro/ flagyl prior to admission. - Gen surgical consulted- keeping on clear liquid diet, plans for ileostomy reversal during this admission but they would like cellulitis to be more improved - Patient had iloestomy reversla today - PICC line inserted on 11/05, TPN started 11/05 per dietary/pharmacy recs - will initiate food in AM - hold Eliquis - Encouraged to ambulate Loop ileostomy -Reversal done today - TPN along with a clear diet allowed today per general surgery; start octreotide to try and decrease ileostomy output, poor function due to obesity - Leonard out of midline abdominal incision - healing better, only slight serosanguineous drainage from vertical incision - Barium enema 11/07: normal 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 Delatorre on board: s/p LLL wedge resection 11/08. Frozen section looks like metastatic adenocarcinoma, pathology pending - Chest tube removed 11/09, doing well, required 1 day stay in the ICU but now out. - Oncology consulted- appreciate recs - Dr. Quintana will follow - CXR from 11/11 reviewed showing LLL infiltrate but appears improved compared to imaging on 11/09 prior to wedge resection. On room air. - Patient is now coughing up some dark red bloody mucus - -Dr. Tapia confirmed the lung nodule was metastatic colon cancer. Will start chemotherapy likely as out patient. Atrial fibrillation - maintained on her metoprolol succ 50 mg daily - Holding Eliquis (last taken 11/04) HLD - Lipitor will be continued Hypertension - cont lisinopril 5 mg daily DM II - She's been on various diabetic regimens over the last few months - currently on Tojeo at 15 U will convert this to Lantus 15 U QPM and ISS with accuchecks [facility] - glycemic pharmacy to help manage with TPN Asthma - Cont Combivent and Singulair Reverse hypothyroidism - she appears clinically euthyroid and she is on a significantly high dose of Synthroid in the chart documented at 1200 g a day obstructive sleep apnea - supply her CPAP Her morbid obesity directly impacts both her wound care her healing and her sleep apnea DVT ppx : SCDs, no chemical anticoagulation at this time CODE STATUS: FULL Dispostion: Anticipated prolonged hospital course due to severity of abdominal cellulitis, needs for improved nutritional status, planned ileostomy reversal on Sunday and post-op healing. From home, will need CM to assist with dc planning, was from [facility].
[2017-11-14] MEDS: MAGNESIUM OXIDE 400 MG TAB PO SCH (09:12)
[2017-11-14] MEDS: IPRATROPIUM BROMIDE/ALBUTEROL respimat INH INH SCH ×4 (09:12→21:20)
[2017-11-14] MEDS: LORATADINE 10 MG TAB PO SCH (09:12)
[2017-11-14] MEDS: METOPROLOL SUCC 50MG EXT REL TAB PO SCH (09:12)
[2017-11-14] MEDS: FUROSEMIDE 20 MG TAB PO SCH (09:13)
[2017-11-14] MEDS: CHOLESTYRAMINE LIGHT 4 GM PKT PO SCH (09:13)
[2017-11-14] MEDS: LACTOBACILLUS ACIDOPHILUS (FLORANEX) TAB PO SCH ×3 (09:13→21:22)
--- NOTE | 2017-11-14 09:13 | Anesthesiology Progress Note ---
Anesthesia Post Op Note Date & Time Nov 14, 2017 at 09:13 Vital Signs Pain Intensity: 3.0 Vital Signs Past 12 Hours Date Time Temp Pulse Resp B/P (MAP) Pulse Ox O2 Delivery O2 Flow Rate FiO2 11/14/17 07:05 36.7 91 16 111/74 (86) 93 Nasal Cannula 3.0 11/14/17 06:30 94 126/86 (99) 95 Room Air 11/14/17 03:55 36.8 79 16 95/66 (76) 100 Nasal Cannula 3.0 11/14/17 00:10 100 Nasal Cannula 3.0 11/13/17 23:40 37.5 90 18 110/73 (85) 100 Nasal Cannula 3.0 Notes Mental Status: alert / awake / arousable, participated in evaluation Pt Amnestic to Procedure: Yes Nausea / Vomiting: adequately controlled Pain: adequately controlled Airway Patency, RR, SpO2: stable & adequate BP & HR: stable & adequate Hydration State: stable & adequate Anesthetic Complications: no major complications apparent
[2017-11-14] MEDS: FLUCONAZOLE 100 MG TAB PO SCH (09:16)
[2017-11-14] MEDS: POTASSIUM CHLORIDE 10 MEQ TABCR PO SCH (09:16)
[2017-11-14] MEDS: LISINOPRIL 5 MG TAB PO SCH (09:17)
[2017-11-14 09:34] LABS: CALCIUM 9.1 mg/dl (8.5-10.1); CREATININE 0.6 mg/dl (0.60-1.20)
[2017-11-14 09:38] LABS: PHOSPHORUS 2.9 mg/dl (2.5-4.9)
[2017-11-14] MEDS: FAMOTIDINE 20 MG TAB PO SCH (09:40)
--- NOTE | 2017-11-14 11:19 | Progress Note ---
Subjective Date of Service: Nov 14, 2017. Subjective Pt evaluation today including: conversation w/ patient, physical exam, chart review, lab review pt s/p ostomy reversal. POD#1. tolerated well. 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 tolerating well. had some nausea this am but resolved. no cp, cough, sob. cellulitis resolved. all remaining ros reviewed and are negative. Problem List Medical Problems: (1) Abdominal pain Status: Acute (2) Abscess of labia majora Status: Acute (3) Acute vomiting Status: Acute (4) Cellulitis of labia majora Status: Acute (5) Hyperglycemia Status: Acute (6) Hyperglycemia due to type 2 diabetes mellitus Status: Acute (7) Hypertension Status: Acute (8) Low back pain Status: Acute (9) Morbid obesity Status: Acute (10) New onset a-fib Status: Acute (11) Pulmonary nodule Status: Acute (12) Rectal bleed Status: Acute (13) Rectal bleeding Status: Acute (14) Rectal cancer Status: Acute (15) Sepsis Status: Acute (16) Shortness of breath Status: Acute (17) Skin abscess Status: Acute (18) Urinary tract infection Status: Acute Objective Vital Signs Date Time Temp Pulse Resp B/P (MAP) Pulse Ox O2 Delivery O2 Flow Rate FiO2 11/14/17 08:00 Nasal Cannula 3.0 11/14/17 07:05 36.7 91 16 111/74 (86) 93 Nasal Cannula 3.0 11/14/17 06:30 94 126/86 (99) 95 Room Air 11/14/17 03:55 36.8 79 16 95/66 (76) 100 Nasal Cannula 3.0 11/14/17 00:10 100 Nasal Cannula 3.0 11/13/17 23:40 37.5 90 18 110/73 (85) 100 Nasal Cannula 3.0 11/13/17 19:14 36.7 89 18 125/84 (98) 98 Nasal Cannula 3.0 11/13/17 18:04 36.5 89 16 118/80 (93) 98 Nasal Cannula 3.0 11/13/17 17:02 36.5 89 16 120/79 (93) 98 Nasal Cannula 3.0 11/13/17 16:30 36.5 89 16 120/83 (95) 98 Nasal Cannula 3.0 11/13/17 16:00 36.4 82 16 120/83 (95) 98 Nasal Cannula 3.0 11/13/17 16:00 Nasal Cannula 3.0 11/13/17 16:00 Nasal Cannula 3.0 11/13/17 15:35 86 18 121/86 97 Oxymask 3 11/13/17 15:20 74 18 119/85 97 Oxymask 3 11/13/17 15:10 36.2 82 18 115/78 96 Oxymask 3 11/13/17 15:00 81 18 120/89 97 Oxymask 5 11/13/17 14:50 80 18 120/82 97 Oxymask 10 11/13/17 14:44 36.3 88 16 126/93 100 Oxymask 15 Physical Exam General Appearance: WD/WN, no apparent distress Eyes: normal inspection, EOMI Neck: supple Respiratory/Chest: lungs clear, normal breath sounds, no respiratory distress Cardiovascular: regular rate, rhythm, no edema Abdomen: soft Extremities: non-tender, no pedal edema Neurologic/Psychiatric: alert, oriented x 3 Skin: normal color Comments: abd wall cellulitis resolved. dressing c/d/i Laboratory Results Item Value Date Time Blood Culture - Final Complete 11/04/17 1318 Blood NO GROWTH Blood Culture - Final Complete 11/04/17 1404 Blood NO GROWTH Last 24 Hours Test 11/13/17 13:56 11/13/17 14:47 11/13/17 18:02 11/13/17 20:32 Bedside Glucose 137 mg/dl 157 mg/dl 200 mg/dl 212 mg/dl Test 11/14/17 08:12 11/14/17 08:39 Bedside Glucose 132 mg/dl Sodium Level 133 mmol/L Potassium Level 4.0 mmol/L Chloride Level 96 mmol/L Carbon Dioxide Level 29 mmol/L Anion Gap 8.0 mmol/L Blood Urea Nitrogen 28 mg/dl Creatinine 0.60 mg/dl Est Creatinine Clear Calc Drug Dose 110.8 ml/min Estimated GFR () 119.8 Estimated GFR (Non- 103.3 BUN/Creatinine Ratio 46.7 Random Glucose 114 mg/dl Calcium Level 9.1 mg/dl Phosphorus Level 2.9 mg/dl Magnesium Level 1.7 mg/dl Albumin 2.0 gm/dl Triglycerides Level 127 mg/dl Assessment and Plan (1) Panniculitis Assessment & Plan: agree to stop abx after today, cellulitis resolved. will sign off, thank you
--- NOTE | 2017-11-14 13:42 | Pharmacy Progress Note ---
Pharmacy Glycemic Short Note 2 Date of Service Nov 14, 2017. OUTPATIENT ANTIDIABETIC REGIMEN: * Lantus 15 units HS + Novolog TIDM ASSESSMENT: * Ms Bernard is a 52 y/o F admitted with abdominal wall cellulitis. See progress note from 11/11/17 for background info, in short: * Patient is on day # 10 of TPN which contains 200 grams of dextrose * Patient received a total of 43 units of insulin over the past 24 hours: * 10 units of basal insulin * 33 units of bolus insulin (30 units in TPN, 3 units of Novolog) * BSGs: 90, 137, 157, 200, 212 mg/dL * Fasting BSG near goal, therefore no changes will be made to basal insulin today * Post-prandial BSGs rise throughout the day. I suspect this is due to the addition of a clear liquid diet yesterday and decreasing the amount of insulin in the TPN (11/11-11/13: 50 units -> 35 units -> 30 units) PLAN FOR INPATIENT GLYCEMIC CONTROL: * Basal insulin * Lantus 10 units SQ HS * Bolus insulin * NovoLog per scale ACHS or Q6hrs while NPO * Goal Range: Low 110 mg/dL - High 140 mg/dL * Correction Factor: 20 mg/dL/unit * Add carb ratio: 1 units for every 6 grams CHO (since advanced to full liquids ) * Nutritional / Prandial insulin added to TPN * Increase to 35 units (equivalent to carb ratio of 6) Thank you
[2017-11-14] MEDS: SODIUM CHLORIDE 0.9% 1000ML 1,000 ML IV SCH (15:38)
[2017-11-14] MEDS ORDERED: CUSTOM CENTRAL PN 1 BAG IV SCH (16:00)
--- NOTE | 2017-11-14 17:44 | SURGERY PROGRESS NOTE ---
DATE: 11/14/2017 Ms. Bernard is seen today. She is quite happy to be dry and not be leaking from her abdomen. She tolerated the takedown of her ileostomy quite nicely. She really has very little pain from her left chest. I would like to get an x-ray the next day or so. Quite frankly, I am happy with her. I will inspect her incisions with Dr. Rogers in the near future.
[2017-11-14] MEDS: INSULIN GLARGINE SOLOSTAR 100 UNITS/ML 3 ML PEN SC SCH (21:21)
[2017-11-14] MEDS: ATORVASTATIN 20 MG TAB PO SCH (21:22)
[2017-11-14] MEDS: MONTELUKAST SOD 10 MG TAB PO SCH (21:23)
[2017-11-15] MEDS ORDERED: INSULIN ASPART 100 UNITS/ML 3 ML PEN SC SCH
[2017-11-15] MEDS: ACETAMINOPHEN IV 1,000 MG in EMPTY BAG 0 ML IV SCH ×3 (02:28→18:15)
[2017-11-15 04:09] VITALS: BP 102/52; PULSE 88; TEMP 36.9; O2SAT 94
[2017-11-15] MEDS: LEVOTHYROXINE 200 MCG TAB PO SCH (05:55)
[2017-11-15] MEDS: ENOXAPARIN 40 MG/0.4 ML SYR SQ SCH (05:57)
[2017-11-15] MEDS: HYDROmorphone HCL 0.5MG/ML 50 ML CASSETTE IV PRN (07:07)
[2017-11-15 07:13] LABS: CREATININE 0.49 mg/dl (0.60-1.20); PHOSPHORUS 3.1 mg/dl (2.5-4.9); POTASSIUM 4.9 mmol/L (3.5-5.1)
[2017-11-15] MEDS: MAGNESIUM OXIDE 400 MG TAB PO SCH (09:07)
[2017-11-15] MEDS: POTASSIUM CHLORIDE 10 MEQ TABCR PO SCH (09:07)
[2017-11-15] MEDS: LACTOBACILLUS ACIDOPHILUS (FLORANEX) TAB PO SCH ×3 (09:07→20:47)
[2017-11-15] MEDS: FUROSEMIDE 20 MG TAB PO SCH (09:08)
[2017-11-15] MEDS: IPRATROPIUM BROMIDE/ALBUTEROL respimat INH INH SCH ×4 (09:08→20:43)
[2017-11-15] MEDS: CHOLESTYRAMINE LIGHT 4 GM PKT PO SCH (09:08)
[2017-11-15] MEDS: LORATADINE 10 MG TAB PO SCH (09:08)
[2017-11-15] MEDS: METOPROLOL SUCC 50MG EXT REL TAB PO SCH (09:08)
[2017-11-15] MEDS: LISINOPRIL 5 MG TAB PO SCH (09:08)
[2017-11-15] MEDS: INSULIN ASPART 100 UNITS/ML 3 ML PEN SC SCH ×4 (09:12→20:41)
--- NOTE | 2017-11-15 09:48 | Progress Note ---
Subjective Date of Service: Nov 14, 2017. Subjective Pt evaluation today including: conversation w/ patient Patient seen at Nov 14 at 1800 Patient reports feeling better. She has some pain in her abdomen after the ileo reversal. Patient denies any SOB, nausea, vomiting. Patient denies having a bowel movement today. Patient reports she will like to go home. Problem List Medical Problems: (1) Abdominal pain Status: Acute (2) Abscess of labia majora Status: Acute (3) Acute vomiting Status: Acute (4) Cellulitis of labia majora Status: Acute (5) Hyperglycemia Status: Acute (6) Hyperglycemia due to type 2 diabetes mellitus Status: Acute (7) Hypertension Status: Acute (8) Low back pain Status: Acute (9) Morbid obesity Status: Acute (10) New onset a-fib Status: Acute (11) Pulmonary nodule Status: Acute (12) Rectal bleed Status: Acute (13) Rectal bleeding Status: Acute (14) Rectal cancer Status: Acute (15) Sepsis Status: Acute (16) Shortness of breath Status: Acute (17) Skin abscess Status: Acute (18) Urinary tract infection Status: Acute Review of Systems All Other Systems: Reviewed and Negative Medications Current Inpatient Medications Medications (Trade) Dose Ordered Sig/Viviana Route Start Time Stop Time Status Last Admin Dose Admin Miscellaneous Information (Consult) 1 ea UD PRN N/A 11/04/17 17:15 12/04/17 17:14 Albuterol (Ventolin Hfa Inhaler) 2 puffs Q6H PRN INH 11/04/17 18:30 12/04/17 18:29 Atorvastatin Calcium (Lipitor Tab) 20 mg HS PO 11/04/17 21:00 12/04/17 20:59 11/14/17 20:47 20 MG Famotidine (Pepcid Tab) 20 mg DAILY PO 11/05/17 08:00 12/05/17 08:59 11/14/17 10:25 20 MG Furosemide (Lasix Tab) 20 mg QAM PO 11/05/17 08:00 12/05/17 08:59 11/14/17 09:08 20 MG Albuterol/ Ipratropium (Combivent Respimat Inh) 1 puffs QID INH 11/04/17 20:00 12/04/17 20:59 11/14/17 20:43 1 PUFFS Lactobacillus Acidophilus (Floranex Tab) 4 tab TID PO 11/04/17 20:00 12/04/17 20:59 11/14/17 20:47 4 TAB Lisinopril (Zestril Tab) 5 mg QAM PO 11/05/17 08:00 12/05/17 08:59 11/14/17 09:08 5 MG Loratadine (Claritin Tab) 10 mg QAM PO 11/05/17 08:00 12/05/17 08:59 11/14/17 09:08 10 MG Magnesium Oxide (Mag-Ox Tab) 400 mg DAILY PO 11/05/17 08:00 12/05/17 08:59 11/14/17 09:07 400 MG Metoprolol Succinate (Toprol Xl Tab) 50 mg DAILY PO 11/05/17 08:00 12/05/17 08:59 11/14/17 09:08 50 MG Montelukast Sodium (Singulair Tab) 10 mg HS PO 11/04/17 21:00 12/04/17 20:59 11/14/17 20:49 10 MG Potassium Chloride (Klor-Con M10) 10 meq QAM PO 11/05/17 08:00 12/05/17 08:59 11/14/17 09:07 10 MEQ Cholestyramine Resin (Questran Powder Light) 4 gm DAILY PO 11/05/17 08:00 12/05/17 08:59 11/14/17 09:08 4 GM Levothyroxine Sodium (Synthroid Tab) 1,200 mcg DAILYBB PO 11/05/17 06:30 12/05/17 06:29 11/14/17 06:01 1,200 MCG Al Hydrox/Mg Hydrox/Simethicone (Maalox Max Susp) 15 ml Q4H PRN PO 11/04/17 18:45 12/04/17 18:44 Magnesium Hydroxide (Milk Of Magnesia Susp) 30 ml Q6H PRN PO 11/04/17 18:45 12/04/17 18:44 Ondansetron HCl (Zofran Inj) 4 mg Q6H PRN IV 11/04/17 18:45 12/04/17 18:44 11/14/17 09:40 4 MG Lorazepam (Ativan Inj) 0.5 mg Q4H PRN IV 11/04/17 18:45 12/04/17 18:44 Lorazepam (Ativan Inj) 1 mg Q4H PRN IV 11/04/17 18:45 12/04/17 18:44 Glucose (Glucose 40% Gel) 15-30 GRAMS 15 GRAMS... UD PRN PO 11/04/17 18:45 12/04/17 18:44 Glucose (Glucose Chew Tab) 4-8 Tablets 4 Tabl... UD PRN PO 11/04/17 18:45 12/04/17 18:44 Dextrose (Dextrose 50% 50ML Syringe) 25-50ML OF 50% DW IV FOR... UD PRN IV 11/04/17 18:45 12/04/17 18:44 Glucagon (Glucagon Inj) 1 mg UD PRN SQ 11/04/17 18:45 12/04/17 18:44 Lorazepam 0.5 mg/ Syringe 1 ml @ 1 mls/min Q4H PRN IV 11/04/17 20:30 12/04/17 20:29 Lorazepam 1 mg/ Syringe 1 ml @ 1 mls/min Q4H PRN IV 11/04/17 20:30 12/04/17 20:29 Miscellaneous Information (Pharmacy Tpn/ Ppn Consult Active) 1 ea UD PRN N/A 11/05/17 10:00 12/05/17 09:59 Dextrose 1,000 ml @ 0 mls/hr Q0M PRN IV 11/05/17 16:00 12/05/17 15:59 Heparin Sodium (Porcine) (Heparin 10 Unit/ ml 5 ml Flush) 5 ml PRN PRN FLUSH 11/05/17 14:45 12/05/17 14:44 Diphenhydramine HCl (Benadryl Cap) 25 mg Q6H PRN PO 11/06/17 18:45 12/06/17 18:44 Acetaminophen 1000 mg/Empty Bag 100 ml @ 400 mls/hr Q8H IV 11/08/17 18:00 12/08/17 17:59 11/14/17 02:16 400 MLS/HR Enoxaparin Sodium (Lovenox Inj) 40 mg DAILY@0600 SQ 11/09/17 06:00 12/09/17 05:59 11/14/17 06:03 40 MG Miscellaneous Information (Consult Glycemic Management Pharmacy) 1 ea UD PRN N/A 11/09/17 09:45 12/09/17 09:44 Insulin Glargine (Lantus Solostar Pen) 10 units PM SC 11/11/17 21:00 12/11/17 20:59 Future hold 11/14/17 20:53 10 UNITS Insulin Aspart (novoLOG ASPART) SLIDING SCALE PARAMETER ACHS SC 11/13/17 21:00 12/13/17 20:59 11/14/17 18:43 4 UNITS Oxycodone HCl (Roxicodone Immediate Rel Tab) `1-2 tabs for pain 1 tab ... Q4 PRN PO 11/15/17 10:15 11/29/17 10:14 11/14/17 00:32 10 MG Piperacillin Sod/ Tazobactam Sod 4.5 gm/Dextrose 120 ml @ 30 mls/hr Q8H IV 11/15/17 18:00 11/25/17 17:59 11/14/17 02:41 30 MLS/HR Objective Vital Signs Date Time Temp Pulse Resp B/P (MAP) Pulse Ox O2 Delivery O2 Flow Rate FiO2 11/15/17 04:09 36.9 88 18 102/52 (69) 94 Room Air 11/14/17 23:56 92 102/68 (79) 11/14/17 23:45 CPAP 11/14/17 23:35 37.4 89 20 90/53 (65) 92 CPAP 11/14/17 23:28 87 91 21 11/14/17 21:19 85 103/69 (80) 11/14/17 15:40 Nasal Cannula 3.0 11/14/17 14:59 37.0 91 16 110/77 (88) 93 Room Air Physical Exam Comments: General Appearance: WD/WN, no apparent distress, + obese (morbidly) On Room Air Eyes: PERRL, EOMI ENT: hearing grossly normal, pharynx normal, + pertinent finding (MMM) Neck: supple, no JVD Respiratory/Chest: chest non-tender, breath sounds slightly diminished at the left base, dressing appears C/d/i, no respiratory distress, no accessory muscle use Cardiovascular: + systolic murmur, + irregularly irregular (rate controlled) Abdomen: + pertinent finding (Obese, + mildly erythematous pannus involving the folds is improving,osotmy no longer presnt, surigcal lesion covered in dry dressing) Extremities: +PICC line RUE, non-tender, no pedal edema, no calf tenderness Neurologic/Psychiatric: alert, normal affect, oriented x 3 Laboratory Results Last 24 Hours Test 11/14/17 12:01 11/14/17 17:33 11/14/17 20:57 11/14/17 23:49 Bedside Glucose 181 mg/dl 164 mg/dl 178 mg/dl 155 mg/dl Test 11/15/17 06:09 Sodium Level 134 mmol/L Potassium Level 4.9 mmol/L Chloride Level 101 mmol/L Carbon Dioxide Level 27 mmol/L Anion Gap 6.0 mmol/L Blood Urea Nitrogen 28 mg/dl Creatinine 0.49 mg/dl Est Creatinine Clear Calc Drug Dose 137.0 ml/min Estimated GFR () 128.0 Estimated GFR (Non- 110.5 BUN/Creatinine Ratio 56.3 Random Glucose 123 mg/dl Calcium Level 9.0 mg/dl Phosphorus Level 3.1 mg/dl Magnesium Level 1.8 mg/dl Assessment and Plan 51 yo female here with the surgical site infection of abdominal cellulitis with concern for possible abscess Severe Abdominal wall cellulitis, possible abscess Resolved. Stopped antibiotics todays Severe Protein Calorie Malnutrition Patient had iloestomy reversal yesterday - PICC line inserted on 11/05, TPN started 11/05 per dietary/pharmacy recs - will initiate food and has been tolerating since nov 13 -will discuss with nutrition to slowly taper TPN - hold Eliquis - Encouraged to ambulate Loop ileostomy -Reversal done yesterday -As stated above, will need to taper TPN. 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 Delatorre on board: s/p LLL wedge resection 11/08. Frozen section looks like metastatic adenocarcinoma, pathology pending - Chest tube removed 11/09, doing well, required 1 day stay in the ICU but now out. - Oncology consulted- appreciate recs - Dr. Quintana will follow - CXR from 11/11 reviewed showing LLL infiltrate but appears improved compared to imaging on 11/09 prior to wedge resection. On room air. - Patient is now coughing up some dark red bloody mucus - -Dr. Tapia confirmed the lung nodule was metastatic colon cancer. Will start chemotherapy likely as out patient. Atrial fibrillation - maintained on her metoprolol succ 50 mg daily - Holding Eliquis (last taken 11/04) HLD - Lipitor will be continued Hypertension - cont lisinopril 5 mg daily DM II - She's been on various diabetic regimens over the last few months - currently on Tojeo at 15 U will convert this to Lantus 15 U QPM and ISS with accuchecks achs - glycemic pharmacy to help manage with TPN Asthma - Cont Combivent and Singulair Reverse hypothyroidism - she appears clinically euthyroid and she is on a significantly high dose of Synthroid in the chart documented at 1200 g a day obstructive sleep apnea - supply her CPAP Her morbid obesity directly impacts both her wound care her healing and her sleep apnea DVT ppx : SCDs, no chemical anticoagulation at this time CODE STATUS: FULL Disp: Patient currently refusing rehab. Goals for discharge. Have patient ambulate well enough for home, if possible. If not, will need to revisit rehab. Taper off completely from TPN. No longer on antibiotics.
--- NOTE | 2017-11-15 10:07 | Surgery Progress Note ---
Surgery Progress Note Date of Service Nov 15, 2017. Subjective Post OP Day: 2 doing as expected. no new complaints. tolerating small amounts of full liquids. no bm yet Objective Vital Signs: Date Time Temp Pulse Resp B/P (MAP) Pulse Ox O2 Delivery O2 Flow Rate FiO2 11/15/17 04:09 36.9 88 18 102/52 (69) 94 Room Air 11/14/17 23:56 92 102/68 (79) 11/14/17 23:45 CPAP 11/14/17 23:35 37.4 89 20 90/53 (65) 92 CPAP 11/14/17 23:28 87 91 21 11/14/17 21:19 85 103/69 (80) 11/14/17 15:40 Nasal Cannula 3.0 11/14/17 14:59 37.0 91 16 110/77 (88) 93 Room Air General Appearance: no apparent distress Abdomen: non distended, soft, + pertinent finding (some erythema at ileostomy site. no drainage. ) Laboratory Results: Results Past 24 Hours Test 11/14/17 12:01 11/14/17 17:33 11/14/17 20:57 11/14/17 23:49 Range/Units Bedside Glucose 181 164 178 155 70-90 mg/dl Test 11/15/17 06:09 Range/Units Sodium Level 134 136-145 mmol/L Potassium Level 4.9 3.5-5.1 mmol/L Chloride Level 101 98-107 mmol/L Carbon Dioxide Level 27 21-32 mmol/L Anion Gap 6.0 3-11 mmol/L Blood Urea Nitrogen 28 7-18 mg/dl Creatinine 0.49 0.60-1.20 mg/dl Est Creatinine Clear Calc Drug Dose 137.0 ml/min Estimated GFR () 128.0 Estimated GFR (Non- 110.5 BUN/Creatinine Ratio 56.3 10-20 Random Glucose 123 70-99 mg/dl Calcium Level 9.0 8.5-10.1 mg/dl Phosphorus Level 3.1 2.5-4.9 mg/dl Magnesium Level 1.8 1.8-2.4 mg/dl Assessment & Plan 11/15/17 doing as expected. can probably start weaning off TPN soon awaiting bowel fx to increase diet PT/OT will need to monitor ileostomy site closely for high risk of infection 11/12/17 doing well for ileostomy reversal tomorrow discussed risks will also need a mediport for chemo questions answered. 11/11/17 no clinical change cont tpn for reversal sunday11/10/17 no surgical changes. continue current care plan to reverse ileostomy next week 11/08/17 doing reasonably ok clinically discussed with Dr. Delatorre, would be ok to reverse stoma some time next week if she does well with her surgery today. tentatively may plan for ileostomy reversal Sunday. BE was negative discussed case at tumor board. will need a mediport which I can place at time of ileostomy reversal. 11/05/2017 patient see and examined with Dr. Rogers. CT scan reviewed from yesterday Redness slightly improved overnight Continue IV abx. Wound care consult Will attempt to slow ostomy output- will place PICC line, order TPN, keep patient on clear liquid diet. pt seen. as above. erythema improving already. ileostomy is difficult situation /impossible to keep bag in place secondary to body habitus will need to get cellulitis improved prior to attempting reversal will make NPO/sips clears; start TPN; start sandostatin to try and decrease ileostomy output. I do not believe the small pelvis fluid collection is worth going after at this point. wbc already decreasing. will remove livan will obtain BE in the next day or 2. will likely need to have her ileostomy reversed this admission appreciate ID input wound care consult obtained. 11/12/17 doing well for ileostomy reversal tomorrow discussed risks will also need a mediport for chemo questions answered. 11/11/17 no clinical change cont tpn for reversal sunday11/10/17 no surgical changes. continue current care plan to reverse ileostomy next week 11/08/17 doing reasonably ok clinically discussed with Dr. Delatorre, would be ok to reverse stoma some time next week if she does well with her surgery today. tentatively may plan for ileostomy reversal Sunday. BE was negative discussed case at tumor board. will need a mediport which I can place at time of ileostomy reversal. 11/05/2017 patient see and examined with Dr. Rogers. CT scan reviewed from yesterday Redness slightly improved overnight Continue IV abx. Wound care consult Will attempt to slow ostomy output- will place PICC line, order TPN, keep patient on clear liquid diet. pt seen. as above. erythema improving already. ileostomy is difficult situation /impossible to keep bag in place secondary to body habitus will need to get cellulitis improved prior to attempting reversal will make NPO/sips clears; start TPN; start sandostatin to try and decrease ileostomy output. I do not believe the small pelvis fluid collection is worth going after at this point. wbc already decreasing. will remove livan will obtain BE in the next day or 2. will likely need to have her ileostomy reversed this admission appreciate ID input wound care consult obtained.
[2017-11-15] MEDS ORDERED: PIPERACILL/TAZOBAC CONSULT ACTIVE PRN (10:15)
[2017-11-15] MEDS: FAMOTIDINE 20 MG TAB PO SCH (10:25)
[2017-11-15] MEDS ORDERED: PIPERACILL/TAZOBAC IV 4.5 GM in DEXTROSE 5% 100ML IV ONE (11:00)
[2017-11-15] MEDS: OXYCODONE HCL IR 5 MG TAB (IMMEDIATE RELEASE) PO PRN ×3 (11:11→20:42)
[2017-11-15] MEDS ORDERED: PIPERACILL/TAZOBAC IV 3.375 GM in DEXTROSE 5% 100ML 100 ML IV SCH (12:00)
--- NOTE | 2017-11-15 15:12 | Progress Note ---
Progress Note Date of Service Nov 15, 2017. Progress Note Mrs. Bernard was seen today. She tolerated her ileostomy takedown quite well. I inspected the incision this morning. She has some erythema but I think incision looks quite good. She feels better. She has very little pain in her left chest. This point I would like to check a chest x-ray tomorrow. I believe she is going to heal this wound closure nicely. Her pain has been well controlled.
[2017-11-15 15:33] VITALS: BP 104/68; PULSE 79; TEMP 37.3; O2SAT 95
[2017-11-15] MEDS ORDERED: CUSTOM CENTRAL PN 1 BAG IV SCH (16:00)
[2017-11-15] MEDS: PIPERACILL/TAZOBAC IV 4.5 GM in DEXTROSE 5% 100ML 100 ML IV SCH (18:17)
[2017-11-15] MEDS: ATORVASTATIN 20 MG TAB PO SCH (20:47)
[2017-11-15] MEDS: MONTELUKAST SOD 10 MG TAB PO SCH (20:49)
[2017-11-15] MEDS: INSULIN GLARGINE SOLOSTAR 100 UNITS/ML 3 ML PEN SC SCH (20:53)
[2017-11-15 22:39] VITALS: PULSE 82; O2SAT 94
[2017-11-15 23:01] VITALS: BP 93/67; PULSE 94; TEMP 36.3; O2SAT 92
[2017-11-16] MEDS: OXYCODONE HCL IR 5 MG TAB (IMMEDIATE RELEASE) PO PRN ×4 (00:32→22:01)
[2017-11-16] MEDS: ACETAMINOPHEN IV 1,000 MG in EMPTY BAG 0 ML IV SCH ×3 (02:16→19:01)
[2017-11-16] MEDS: PIPERACILL/TAZOBAC IV 4.5 GM in DEXTROSE 5% 100ML 100 ML IV SCH ×3 (02:41→22:36)
[2017-11-16] MEDS: LEVOTHYROXINE 200 MCG TAB PO SCH (06:01)
[2017-11-16] MEDS: ENOXAPARIN 40 MG/0.4 ML SYR SQ SCH (06:03)
[2017-11-16 08:07] VITALS: BP 109/76; PULSE 88; TEMP 36.3; O2SAT 99
--- NOTE | 2017-11-16 08:24 | Progress Note ---
Subjective Date of Service: Nov 15, 2017. Subjective Patient examined at 16:00 on Nov 15, 2017. Patient reports feeling tired today. She did participate in physical therapy today. But she was only able to walk from her bed into the [address] way. She states she will try to participate more tomorrow. Patient also reports having abdominal pain near her incision. Patient reports she has not had a bowel movement yet. Problem List Medical Problems: (1) Abdominal pain Status: Acute (2) Abscess of labia majora Status: Acute (3) Acute vomiting Status: Acute (4) Cellulitis of labia majora Status: Acute (5) Hyperglycemia Status: Acute (6) Hyperglycemia due to type 2 diabetes mellitus Status: Acute (7) Hypertension Status: Acute (8) Low back pain Status: Acute (9) Morbid obesity Status: Acute (10) New onset a-fib Status: Acute (11) Pulmonary nodule Status: Acute (12) Rectal bleed Status: Acute (13) Rectal bleeding Status: Acute (14) Rectal cancer Status: Acute (15) Sepsis Status: Acute (16) Shortness of breath Status: Acute (17) Skin abscess Status: Acute (18) Urinary tract infection Status: Acute Review of Systems Constitutional: No fever, No chills Eyes: No worsening of vision Respiratory: No cough Cardiac: No chest pain Abdomen: + pain, + constipation Musculoskeletal: No joint pain Neurologic: No memory loss Psychiatric: No depression symptoms Heme: No abnormal bleeding/bruising All Other Systems: Reviewed and Negative Medications Current Inpatient Medications Medications (Trade) Dose Ordered Sig/Viviana Route Start Time Stop Time Status Last Admin Dose Admin Miscellaneous Information (Consult) 1 ea UD PRN N/A 11/04/17 17:15 12/04/17 17:14 Albuterol (Ventolin Hfa Inhaler) 2 puffs Q6H PRN INH 11/04/17 18:30 12/04/17 18:29 Atorvastatin Calcium (Lipitor Tab) 20 mg HS PO 11/04/17 21:00 12/04/17 20:59 11/15/17 20:47 20 MG Famotidine (Pepcid Tab) 20 mg DAILY PO 11/05/17 08:00 12/05/17 08:59 11/15/17 10:25 20 MG Furosemide (Lasix Tab) 20 mg QAM PO 11/05/17 08:00 12/05/17 08:59 11/15/17 09:08 20 MG Albuterol/ Ipratropium (Combivent Respimat Inh) 1 puffs QID INH 11/04/17 20:00 12/04/17 20:59 11/15/17 20:43 1 PUFFS Lactobacillus Acidophilus (Floranex Tab) 4 tab TID PO 11/04/17 20:00 12/04/17 20:59 11/15/17 20:47 4 TAB Lisinopril (Zestril Tab) 5 mg QAM PO 11/05/17 08:00 12/05/17 08:59 11/15/17 09:08 5 MG Loratadine (Claritin Tab) 10 mg QAM PO 11/05/17 08:00 12/05/17 08:59 11/15/17 09:08 10 MG Magnesium Oxide (Mag-Ox Tab) 400 mg DAILY PO 11/05/17 08:00 12/05/17 08:59 11/15/17 09:07 400 MG Metoprolol Succinate (Toprol Xl Tab) 50 mg DAILY PO 11/05/17 08:00 12/05/17 08:59 11/15/17 09:08 50 MG Montelukast Sodium (Singulair Tab) 10 mg HS PO 11/04/17 21:00 12/04/17 20:59 11/15/17 20:49 10 MG Potassium Chloride (Klor-Con M10) 10 meq QAM PO 11/05/17 08:00 12/05/17 08:59 11/15/17 09:07 10 MEQ Cholestyramine Resin (Questran Powder Light) 4 gm DAILY PO 11/05/17 08:00 12/05/17 08:59 11/15/17 09:08 4 GM Levothyroxine Sodium (Synthroid Tab) 1,200 mcg DAILYBB PO 11/05/17 06:30 12/05/17 06:29 11/16/17 06:01 1,200 MCG Al Hydrox/Mg Hydrox/Simethicone (Maalox Max Susp) 15 ml Q4H PRN PO 11/04/17 18:45 12/04/17 18:44 Magnesium Hydroxide (Milk Of Magnesia Susp) 30 ml Q6H PRN PO 11/04/17 18:45 12/04/17 18:44 Ondansetron HCl (Zofran Inj) 4 mg Q6H PRN IV 11/04/17 18:45 12/04/17 18:44 11/14/17 09:40 4 MG Lorazepam (Ativan Inj) 0.5 mg Q4H PRN IV 11/04/17 18:45 12/04/17 18:44 Lorazepam (Ativan Inj) 1 mg Q4H PRN IV 11/04/17 18:45 12/04/17 18:44 Glucose (Glucose 40% Gel) 15-30 GRAMS 15 GRAMS... UD PRN PO 11/04/17 18:45 12/04/17 18:44 Glucose (Glucose Chew Tab) 4-8 Tablets 4 Tabl... UD PRN PO 11/04/17 18:45 12/04/17 18:44 Dextrose (Dextrose 50% 50ML Syringe) 25-50ML OF 50% DW IV FOR... UD PRN IV 11/04/17 18:45 12/04/17 18:44 Glucagon (Glucagon Inj) 1 mg UD PRN SQ 11/04/17 18:45 12/04/17 18:44 Lorazepam 0.5 mg/ Syringe 1 ml @ 1 mls/min Q4H PRN IV 11/04/17 20:30 12/04/17 20:29 Lorazepam 1 mg/ Syringe 1 ml @ 1 mls/min Q4H PRN IV 11/04/17 20:30 12/04/17 20:29 Miscellaneous Information (Pharmacy Tpn/ Ppn Consult Active) 1 ea UD PRN N/A 11/05/17 10:00 12/05/17 09:59 Dextrose 1,000 ml @ 0 mls/hr Q0M PRN IV 11/05/17 16:00 12/05/17 15:59 Heparin Sodium (Porcine) (Heparin 10 Unit/ ml 5 ml Flush) 5 ml PRN PRN FLUSH 11/05/17 14:45 12/05/17 14:44 Diphenhydramine HCl (Benadryl Cap) 25 mg Q6H PRN PO 11/06/17 18:45 12/06/17 18:44 Acetaminophen 1000 mg/Empty Bag 100 ml @ 400 mls/hr Q8H IV 11/08/17 18:00 12/08/17 17:59 11/16/17 02:16 400 MLS/HR Enoxaparin Sodium (Lovenox Inj) 40 mg DAILY@0600 SQ 11/09/17 06:00 12/09/17 05:59 11/16/17 06:03 40 MG Miscellaneous Information (Consult Glycemic Management Pharmacy) 1 ea UD PRN N/A 11/09/17 09:45 12/09/17 09:44 Insulin Glargine (Lantus Solostar Pen) 10 units PM SC 11/11/17 21:00 12/11/17 20:59 Future hold 11/15/17 20:53 10 UNITS Insulin Aspart (novoLOG ASPART) SLIDING SCALE PARAMETER ACHS SC 11/13/17 21:00 12/13/17 20:59 11/15/17 18:43 4 UNITS Oxycodone HCl (Roxicodone Immediate Rel Tab) `1-2 tabs for pain 1 tab ... Q4 PRN PO 11/15/17 10:15 11/29/17 10:14 11/16/17 00:32 10 MG Piperacillin Sod/ Tazobactam Sod 4.5 gm/Dextrose 120 ml @ 30 mls/hr Q8H IV 11/15/17 18:00 11/25/17 17:59 11/16/17 02:41 30 MLS/HR Nutrition (Parenteral) 0 ml @ 0 mls/hr TODAY@1600 IV 11/15/17 16:00 11/16/17 15:59 11/15/17 16:04 0 MLS/HR Objective Vital Signs Date Time Temp Pulse Resp B/P (MAP) Pulse Ox O2 Delivery O2 Flow Rate FiO2 11/16/17 08:07 36.3 88 20 109/76 (87) 99 Room Air 88 11/15/17 23:40 Room Air 11/15/17 23:01 36.3 94 18 93/67 (76) 92 CPAP 11/15/17 22:39 82 94 21 11/15/17 20:10 Room Air 11/15/17 15:33 37.3 79 16 104/68 (80) 95 Room Air 11/15/17 15:25 Room Air Physical Exam Comments: General Appearance: WD/WN, no apparent distress, + obese (morbidly) On Room Air Eyes: PERRL, EOMI ENT: hearing grossly normal, pharynx normal, + pertinent finding (MMM) Neck: supple, no JVD Respiratory/Chest: chest non-tender, breath sounds slightly diminished at the left base, dressing appears C/d/i, no respiratory distress, no accessory muscle use Cardiovascular: + systolic murmur, + irregularly irregular (rate controlled) Abdomen: + pertinent finding (Obese, + mildly erythematous pannus involving the folds is improving,osotmy no longer presnt, surigcal lesion covered in dry dressing) Extremities: +PICC line RUE, non-tender, no pedal edema, no calf tenderness Neurologic/Psychiatric: alert, normal affect, oriented x 3 Laboratory Results Last 24 Hours Test 11/15/17 11:52 11/15/17 17:11 11/15/17 20:27 11/16/17 07:45 Bedside Glucose 127 mg/dl 150 mg/dl 117 mg/dl Assessment and Plan 51 yo female here with the surgical site infection of abdominal cellulitis with concern for possible abscess Severe Abdominal wall cellulitis, possible abscess Resolved. Stopped antibiotics yesterday. ID signed off. Severe Protein Calorie Malnutrition Patient had iloestomy reversal on 11/13/17 - PICC line inserted on 11/05, TPN started 11/05 per dietary/pharmacy recs - will initiate food and has been tolerating since nov 13 -will discuss with nutrition to slowly taper TPN - Encouraged to ambulate Loop ileostomy -Reversal done on 11/13 -As stated above, was able to discuss with nutrition team. Todays TPN has been tapered. 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 Delatorre on board: s/p LLL wedge resection 11/08. Frozen section looks like metastatic adenocarcinoma, pathology pending - Chest tube removed 11/09, doing well, required 1 day stay in the ICU but now out. - Oncology consulted- appreciate recs - Dr. Quintana will follow - CXR from 11/11 reviewed showing LLL infiltrate but appears improved compared to imaging on 11/09 prior to wedge resection. On room air. - Patient is now coughing up some dark red bloody mucus - -Dr. Tapia confirmed the lung nodule was metastatic colon cancer. Will start chemotherapy likely as out patient. Atrial fibrillation - maintained on her metoprolol succ 50 mg daily - will resume eliquis tomorrow HLD - Lipitor will be continued Hypertension - cont lisinopril 5 mg daily DM II - She's been on various diabetic regimens over the last few months - currently on Tojeo at 15 U will convert this to Lantus 15 U QPM and ISS with accuchecks achs - glycemic pharmacy to help manage with TPN Asthma - Cont Combivent and Singulair Reverse hypothyroidism - she appears clinically euthyroid and she is on a significantly high dose of Synthroid in the chart documented at 1200 g a day obstructive sleep apnea - supply her CPAP Her morbid obesity directly impacts both her wound care her healing and her sleep apnea DVT ppx : SCDs, no chemical anticoagulation at this time CODE STATUS: FULL Disp: Patient currently refusing rehab. Goals for discharge. Have patient ambulate well enough for home, if possible. If not, will need to revisit rehab. Taper off completely from TPN. No longer on antibiotics.
--- NOTE | 2017-11-16 08:26 | Surgery Progress Note ---
Surgery Progress Note Date of Service Nov 16, 2017. Subjective Post OP Day: 3 no complaints. xochilt full liquid diet. no bowel fx yet. Objective Vital Signs: Date Time Temp Pulse Resp B/P (MAP) Pulse Ox O2 Delivery O2 Flow Rate FiO2 11/16/17 08:07 36.3 88 20 109/76 (87) 99 Room Air 88 11/15/17 23:40 Room Air 11/15/17 23:01 36.3 94 18 93/67 (76) 92 CPAP 11/15/17 22:39 82 94 21 11/15/17 20:10 Room Air 11/15/17 15:33 37.3 79 16 104/68 (80) 95 Room Air 11/15/17 15:25 Room Air General Appearance: no apparent distress Respiratory/Chest: no respiratory distress, no accessory muscle use Abdomen: soft, + pertinent finding (ileostomy incision with small amount of drainage and erythema slightly improved from yesterday. midline incision looks good. ) Laboratory Results: Results Past 24 Hours Test 11/15/17 11:52 11/15/17 17:11 11/15/17 20:27 11/16/17 07:45 Range/Units Bedside Glucose 127 150 117 70-90 mg/dl Assessment & Plan 11/16/17 rec weaning TPN ? early wound infection. zosyn restarted. will monitor closely as to whether we need to open the ileostomy wound awaiting bowel fx cont PT/OT 11/15/17 doing as expected. can probably start weaning off TPN soon awaiting bowel fx to increase diet PT/OT will need to monitor ileostomy site closely for high risk of infection 11/12/17 doing well for ileostomy reversal tomorrow discussed risks will also need a mediport for chemo questions answered. 11/11/17 no clinical change cont tpn for reversal sunday11/10/17 no surgical changes. continue current care plan to reverse ileostomy next week 11/08/17 doing reasonably ok clinically discussed with Dr. Delatorre, would be ok to reverse stoma some time next week if she does well with her surgery today. tentatively may plan for ileostomy reversal Sunday. BE was negative discussed case at tumor board. will need a mediport which I can place at time of ileostomy reversal. 11/05/2017 patient see and examined with Dr. Rogers. CT scan reviewed from yesterday Redness slightly improved overnight Continue IV abx. Wound care consult Will attempt to slow ostomy output- will place PICC line, order TPN, keep patient on clear liquid diet. pt seen. as above. erythema improving already. ileostomy is difficult situation /impossible to keep bag in place secondary to body habitus will need to get cellulitis improved prior to attempting reversal will make NPO/sips clears; start TPN; start sandostatin to try and decrease ileostomy output. I do not believe the small pelvis fluid collection is worth going after at this point. wbc already decreasing. will remove livan will obtain BE in the next day or 2. will likely need to have her ileostomy reversed this admission appreciate ID input wound care consult obtained. 11/15/17 doing as expected. can probably start weaning off TPN soon awaiting bowel fx to increase diet PT/OT will need to monitor ileostomy site closely for high risk of infection 11/12/17 doing well for ileostomy reversal tomorrow discussed risks will also need a mediport for chemo questions answered. 11/11/17 no clinical change cont tpn for reversal sunday11/10/17 no surgical changes. continue current care plan to reverse ileostomy next week 11/08/17 doing reasonably ok clinically discussed with Dr. Delatorre, would be ok to reverse stoma some time next week if she does well with her surgery today. tentatively may plan for ileostomy reversal Sunday. BE was negative discussed case at tumor board. will need a mediport which I can place at time of ileostomy reversal. 11/05/2017 patient see and examined with Dr. Rogers. CT scan reviewed from yesterday Redness slightly improved overnight Continue IV abx. Wound care consult Will attempt to slow ostomy output- will place PICC line, order TPN, keep patient on clear liquid diet. pt seen. as above. erythema improving already. ileostomy is difficult situation /impossible to keep bag in place secondary to body habitus will need to get cellulitis improved prior to attempting reversal will make NPO/sips clears; start TPN; start sandostatin to try and decrease ileostomy output. I do not believe the small pelvis fluid collection is worth going after at this point. wbc already decreasing. will remove livan will obtain BE in the next day or 2. will likely need to have her ileostomy reversed this admission appreciate ID input wound care consult obtained.
[2017-11-16 08:28] LABS: CREATININE 0.54 mg/dl (0.60-1.20); PHOSPHORUS 3.4 mg/dl (2.5-4.9); POTASSIUM 4.3 mmol/L (3.5-5.1)
[2017-11-16 08:53] VITALS: O2SAT 99
[2017-11-16] MEDS: FAMOTIDINE 20 MG TAB PO SCH (09:00)
[2017-11-16] MEDS ORDERED: APIXABAN 2.5 MG TAB PO SCH (09:00)
[2017-11-16] MEDS: INSULIN ASPART 100 UNITS/ML 3 ML PEN SC SCH ×4 (09:10→21:00)
[2017-11-16] MEDS: LACTOBACILLUS ACIDOPHILUS (FLORANEX) TAB PO SCH ×3 (09:10→22:00)
[2017-11-16] MEDS: FUROSEMIDE 20 MG TAB PO SCH (09:11)
[2017-11-16] MEDS: POTASSIUM CHLORIDE 10 MEQ TABCR PO SCH (09:11)
[2017-11-16] MEDS: LISINOPRIL 5 MG TAB PO SCH (09:11)
[2017-11-16] MEDS: MAGNESIUM OXIDE 400 MG TAB PO SCH (09:11)
[2017-11-16] MEDS: IPRATROPIUM BROMIDE/ALBUTEROL respimat INH INH SCH ×4 (09:12→21:59)
[2017-11-16] MEDS: LORATADINE 10 MG TAB PO SCH (09:12)
[2017-11-16] MEDS: CHOLESTYRAMINE LIGHT 4 GM PKT PO SCH (09:12)
[2017-11-16] MEDS: METOPROLOL SUCC 50MG EXT REL TAB PO SCH (09:13)
[2017-11-16] MEDS ORDERED: PIPERACILL/TAZOBAC CONSULT ACTIVE PRN (12:30)
--- NOTE | 2017-11-16 13:22 | Pharmacy Progress Note ---
Pharmacy Glycemic Short Note 2 Date of Service Nov 16, 2017. OUTPATIENT ANTIDIABETIC REGIMEN: * Lantus 15 units HS + Novolog TIDM ASSESSMENT: 11/15/17 * Ms Bernard is a 52 y/o F admitted with abdominal wall cellulitis. See progress note from 11/11/17 for background info, in short: * Patient is on day # 10 of TPN which contains 200 grams of dextrose * Patient received a total of 43 units of insulin over the past 24 hours: * 10 units of basal insulin * 33 units of bolus insulin (30 units in TPN, 3 units of Novolog) * BSGs: 90, 137, 157, 200, 212 mg/dL * Fasting BSG near goal, therefore no changes will be made to basal insulin today * Post-prandial BSGs rise throughout the day. I suspect this is due to the addition of a clear liquid diet yesterday and decreasing the amount of insulin in the TPN (11/11-11/13: 50 units -> 35 units -> 30 units) 11/16/17 * PO intake slowly advancing and TPN will be decreased further today to 100 gm dextrose over 24 hours * BSGs have ranged from 90-150 mg/dL * Patient received 46 units of insulin yesterday * Since BSGs have been a little on the lower side today (90,111), insulin in TPN will be lowered a little more than keeping proportionately * Will plan to keep same basal for now * CR added a few days ago still seems to be working well PLAN FOR INPATIENT GLYCEMIC CONTROL: * Basal insulin * Continue Lantus 10 units SQ HS * Bolus insulin * NovoLog per scale ACHS or Q6hrs while NPO * Goal Range: Low 110 mg/dL - High 140 mg/dL * Correction Factor: 20 mg/dL/unit * Carb ratio: 1 units for every 6 grams CHO * Nutritional / Prandial insulin added to TPN * Decrease to 16 units (equivalent to carb ratio of ~6.3) Thank you
[2017-11-16] MEDS ORDERED: CUSTOM CENTRAL PN 1 BAG IV SCH (16:00)
[2017-11-16 16:04] VITALS: BP 97/58; PULSE 103; TEMP 36.7; O2SAT 93
[2017-11-16 20:01] VITALS: PULSE 92; O2SAT 96
[2017-11-16] MEDS: ATORVASTATIN 20 MG TAB PO SCH (22:00)
[2017-11-16] MEDS: MONTELUKAST SOD 10 MG TAB PO SCH (22:00)
[2017-11-16] MEDS: APIXABAN 2.5 MG TAB PO SCH (22:00)
[2017-11-16] MEDS: INSULIN GLARGINE SOLOSTAR 100 UNITS/ML 3 ML PEN SC SCH (22:02)
[2017-11-16 22:43] VITALS: PULSE 94; O2SAT 93
[2017-11-16 22:52] VITALS: BP 115/62; PULSE 89; TEMP 36.7; O2SAT 96
--- NOTE | 2017-11-16 23:23 | Progress Note ---
Subjective Date of Service: Nov 16, 2017. Subjective Pt evaluation today including: conversation w/ patient Patient denies any new complaints today. Problem List Medical Problems: (1) Abdominal pain Status: Acute (2) Abscess of labia majora Status: Acute (3) Acute vomiting Status: Acute (4) Cellulitis of labia majora Status: Acute (5) Hyperglycemia Status: Acute (6) Hyperglycemia due to type 2 diabetes mellitus Status: Acute (7) Hypertension Status: Acute (8) Low back pain Status: Acute (9) Morbid obesity Status: Acute (10) New onset a-fib Status: Acute (11) Pulmonary nodule Status: Acute (12) Rectal bleed Status: Acute (13) Rectal bleeding Status: Acute (14) Rectal cancer Status: Acute (15) Sepsis Status: Acute (16) Shortness of breath Status: Acute (17) Skin abscess Status: Acute (18) Urinary tract infection Status: Acute Review of Systems Constitutional: No fever, No chills Eyes: No worsening of vision ENT: No hearing loss Respiratory: No cough Cardiac: No chest pain Abdomen: No pain Musculoskeletal: No joint pain Psychiatric: No depression symptoms Endo: No fatigue Skin: No rash All Other Systems: Reviewed and Negative Medications Current Inpatient Medications Medications (Trade) Dose Ordered Sig/Viviana Route Start Time Stop Time Status Last Admin Dose Admin Albuterol (Ventolin Hfa Inhaler) 2 puffs Q6H PRN INH 11/04/17 18:30 12/04/17 18:29 Atorvastatin Calcium (Lipitor Tab) 20 mg HS PO 11/04/17 21:00 12/04/17 20:59 11/16/17 22:00 20 MG Famotidine (Pepcid Tab) 20 mg DAILY PO 11/05/17 08:00 12/05/17 08:59 11/15/17 10:25 20 MG Furosemide (Lasix Tab) 20 mg QAM PO 11/05/17 08:00 12/05/17 08:59 11/16/17 09:11 20 MG Albuterol/ Ipratropium (Combivent Respimat Inh) 1 puffs QID INH 11/04/17 20:00 12/04/17 20:59 11/16/17 21:59 1 PUFFS Lactobacillus Acidophilus (Floranex Tab) 4 tab TID PO 11/04/17 20:00 12/04/17 20:59 11/16/17 22:00 4 TAB Lisinopril (Zestril Tab) 5 mg QAM PO 11/05/17 08:00 12/05/17 08:59 11/16/17 09:11 5 MG Loratadine (Claritin Tab) 10 mg QAM PO 11/05/17 08:00 12/05/17 08:59 11/16/17 09:12 10 MG Magnesium Oxide (Mag-Ox Tab) 400 mg DAILY PO 11/05/17 08:00 12/05/17 08:59 11/16/17 09:11 400 MG Metoprolol Succinate (Toprol Xl Tab) 50 mg DAILY PO 11/05/17 08:00 12/05/17 08:59 11/16/17 09:13 50 MG Montelukast Sodium (Singulair Tab) 10 mg HS PO 11/04/17 21:00 12/04/17 20:59 11/16/17 22:00 10 MG Potassium Chloride (Klor-Con M10) 10 meq QAM PO 11/05/17 08:00 12/05/17 08:59 11/16/17 09:11 10 MEQ Cholestyramine Resin (Questran Powder Light) 4 gm DAILY PO 11/05/17 08:00 12/05/17 08:59 11/16/17 09:12 4 GM Levothyroxine Sodium (Synthroid Tab) 1,200 mcg DAILYBB PO 11/05/17 06:30 12/05/17 06:29 11/17/17 05:35 1,200 MCG Al Hydrox/Mg Hydrox/Simethicone (Maalox Max Susp) 15 ml Q4H PRN PO 11/04/17 18:45 12/04/17 18:44 Magnesium Hydroxide (Milk Of Magnesia Susp) 30 ml Q6H PRN PO 11/04/17 18:45 12/04/17 18:44 Ondansetron HCl (Zofran Inj) 4 mg Q6H PRN IV 11/04/17 18:45 12/04/17 18:44 11/14/17 09:40 4 MG Lorazepam (Ativan Inj) 0.5 mg Q4H PRN IV 11/04/17 18:45 12/04/17 18:44 Lorazepam (Ativan Inj) 1 mg Q4H PRN IV 11/04/17 18:45 12/04/17 18:44 Glucose (Glucose 40% Gel) 15-30 GRAMS 15 GRAMS... UD PRN PO 11/04/17 18:45 12/04/17 18:44 Glucose (Glucose Chew Tab) 4-8 Tablets 4 Tabl... UD PRN PO 11/04/17 18:45 12/04/17 18:44 Dextrose (Dextrose 50% 50ML Syringe) 25-50ML OF 50% DW IV FOR... UD PRN IV 11/04/17 18:45 12/04/17 18:44 Glucagon (Glucagon Inj) 1 mg UD PRN SQ 11/04/17 18:45 12/04/17 18:44 Lorazepam 0.5 mg/ Syringe 1 ml @ 1 mls/min Q4H PRN IV 11/04/17 20:30 12/04/17 20:29 Lorazepam 1 mg/ Syringe 1 ml @ 1 mls/min Q4H PRN IV 11/04/17 20:30 12/04/17 20:29 Miscellaneous Information (Pharmacy Tpn/ Ppn Consult Active) 1 ea UD PRN N/A 11/05/17 10:00 11/17/17 15:59 Dextrose 1,000 ml @ 0 mls/hr Q0M PRN IV 11/05/17 16:00 12/05/17 15:59 Heparin Sodium (Porcine) (Heparin 10 Unit/ ml 5 ml Flush) 5 ml PRN PRN FLUSH 11/05/17 14:45 12/05/17 14:44 Diphenhydramine HCl (Benadryl Cap) 25 mg Q6H PRN PO 11/06/17 18:45 12/06/17 18:44 Acetaminophen 1000 mg/Empty Bag 100 ml @ 400 mls/hr Q8H IV 11/08/17 18:00 12/08/17 17:59 11/17/17 02:04 400 MLS/HR Miscellaneous Information (Consult Glycemic Management Pharmacy) 1 ea UD PRN N/A 11/09/17 09:45 12/09/17 09:44 Insulin Glargine (Lantus Solostar Pen) 10 units PM SC 11/11/17 21:00 12/11/17 20:59 Future hold 11/16/17 22:02 10 UNITS Insulin Aspart (novoLOG ASPART) SLIDING SCALE PARAMETER ACHS SC 11/13/17 21:00 12/13/17 20:59 11/16/17 19:06 3 UNITS Oxycodone HCl (Roxicodone Immediate Rel Tab) `1-2 tabs for pain 1 tab ... Q4 PRN PO 11/15/17 10:15 11/29/17 10:14 11/17/17 02:03 10 MG Apixaban (Eliquis Tab) 5 mg BID PO 11/16/17 21:00 12/16/17 08:59 11/16/17 22:00 5 MG Piperacillin Sod/ Tazobactam Sod 4.5 gm/Dextrose 120 ml @ 30 mls/hr Q8H IV 11/16/17 14:00 11/26/17 13:59 11/17/17 05:37 30 MLS/HR Miscellaneous Information (Consult) 1 ea UD PRN N/A 11/16/17 12:30 12/16/17 12:29 Nutrition (Parenteral) 0 ml @ 0 mls/hr TODAY@1600 IV 11/16/17 16:00 11/17/17 15:59 11/16/17 15:38 50 MLS/HR Objective Vital Signs Date Time Temp Pulse Resp B/P (MAP) Pulse Ox O2 Delivery O2 Flow Rate FiO2 11/16/17 22:52 36.7 89 17 115/62 (79) 96 CPAP 11/16/17 22:43 94 93 21 11/16/17 20:01 92 96 Room Air 11/16/17 16:04 36.7 103 18 97/58 (71) 93 Room Air 11/16/17 16:00 Room Air 11/16/17 09:20 Room Air 11/16/17 08:53 99 Room Air 11/16/17 08:07 36.3 88 20 109/76 (87) 99 Room Air 88 11/15/17 23:40 Room Air Physical Exam Comments: General Appearance: WD/WN, no apparent distress, + obese (morbidly) On Room Air Eyes: PERRL, EOMI ENT: hearing grossly normal, pharynx normal, + pertinent finding (MMM) Neck: supple, no JVD Respiratory/Chest: chest non-tender, breath sounds slightly diminished at the left base, dressing appears C/d/i, no respiratory distress, no accessory muscle use Cardiovascular: + systolic murmur, + irregularly irregular (rate controlled) Abdomen: + pertinent finding (Obese, + mildly erythematous pannus involving the folds is improving,osotmy no longer presnt, surigcal lesion covered in dry dressing) Extremities: +PICC line RUE, non-tender, no pedal edema, no calf tenderness Neurologic/Psychiatric: alert, normal affect, oriented x 3 Laboratory Results Last 24 Hours Test 11/16/17 07:45 11/16/17 08:10 11/16/17 11:59 11/16/17 16:52 Sodium Level 135 mmol/L Potassium Level 4.3 mmol/L Chloride Level 99 mmol/L Carbon Dioxide Level 29 mmol/L Anion Gap 7.0 mmol/L Blood Urea Nitrogen 24 mg/dl Creatinine 0.54 mg/dl Est Creatinine Clear Calc Drug Dose 124.3 ml/min Estimated GFR () 124.0 Estimated GFR (Non- 107.0 BUN/Creatinine Ratio 44.2 Random Glucose 90 mg/dl Calcium Level 9.0 mg/dl Phosphorus Level 3.4 mg/dl Magnesium Level 1.7 mg/dl Bedside Glucose 92 mg/dl 111 mg/dl 120 mg/dl Test 11/16/17 21:16 Bedside Glucose 123 mg/dl Assessment and Plan 51 yo female here with the surgical site infection of abdominal cellulitis with concern for possible abscess Severe Abdominal wall cellulitis, possible abscess Resolved. ID signed off. Howver, incision has some erythema. D/W surgery. will resume antibiotics and continue over the weekend. Severe Protein Calorie Malnutrition Patient had iloestomy reversal on 11/13/17 - PICC line inserted on 11/05, TPN started 11/05 per dietary/pharmacy recs - will initiate food and has been tolerating since nov 13 -will discuss with nutrition to slowly taper TPN and stop on Sunday - Encouraged to ambulate Loop ileostomy -Reversal done on 11/13 -As stated above, was able to discuss with nutrition team. Todays TPN has been tapered. 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 Delatorre on board: s/p LLL wedge resection 11/08. Frozen section looks like metastatic adenocarcinoma, pathology pending - Chest tube removed 11/09, doing well, required 1 day stay in the ICU but now out. - Oncology consulted- appreciate recs - Dr. Quintana will follow - CXR from 11/11 reviewed showing LLL infiltrate but appears improved compared to imaging on 11/09 prior to wedge resection. On room air. - Patient is now coughing up some dark red bloody mucus - -Dr. Tapia confirmed the lung nodule was metastatic colon cancer. Will start chemotherapy likely as out patient. Atrial fibrillation - maintained on her metoprolol succ 50 mg daily - resumed eliquis HLD - Lipitor will be continued Hypertension - cont lisinopril 5 mg daily DM II - She's been on various diabetic regimens over the last few months - currently on Tojeo at 15 U will convert this to Lantus 15 U QPM and [facility] to help manage with TPN Asthma - Cont Combivent and Singulair Reverse hypothyroidism - she appears clinically euthyroid and she is on a significantly high dose of Synthroid in the chart documented at 1200 g a day obstructive sleep apnea - supply her CPAP Her morbid obesity directly impacts both her wound care her healing and her sleep apnea DVT ppx : SCDs, no chemical anticoagulation at this time CODE STATUS: FULL Disp: Patient currently refusing rehab. Goals for discharge. Have patient ambulate well enough for home, if possible. If not, will need to revisit rehab. Taper off completely from TPN. Sadly resumd antibiotics. Patient will need to be in hospital over weekend.
[2017-11-17 00:16] LABS: BASO % 0.1 %; BASO ABS # 0.01 K/uL (0-0.2); EOS % 2.6 %; EOS ABS # 0.28 K/uL (0-0.5); HEMATOCRIT 30.2 % (37-47); IG# 0.05 K/uL (0.00-0.02); LYMPH % 22.7 %; LYMPH ABS # 2.46 K/uL (1.2-3.4); MEAN CELL VOLUME 78.9 fL (80-100); MEAN CORPUSCULAR HEMOGLOBIN 26.1 pg (25-34); MEAN CORPUSCULAR HGB CONC 33.1 g/dl (32-36); MONO % 11.4 %; MONO ABS # 1.24 K/uL (0.11-0.59); NEUT % 62.7 %; NEUT ABS # 6.79 K/uL (1.4-6.5); PLATELET COUNT 418 K/uL (130-400); RED CELL DISTRIBUTION WIDTH CV 15.6 % (11.5-14.5); RED CELL DISTRIBUTION WIDTH SD 44.9 fL (36.4-46.3); WHITE BLOOD COUNT 10.83 K/uL (4.8-10.8)
[2017-11-17 00:38] LABS: CREATININE 0.61 mg/dl (0.60-1.20); POTASSIUM 3.8 mmol/L (3.5-5.1)
[2017-11-17] MEDS: OXYCODONE HCL IR 5 MG TAB (IMMEDIATE RELEASE) PO PRN ×2 (02:03→21:41)
[2017-11-17] MEDS: ACETAMINOPHEN IV 1,000 MG in EMPTY BAG 0 ML IV SCH ×3 (02:04→17:02)
[2017-11-17] MEDS: LEVOTHYROXINE 200 MCG TAB PO SCH (05:35)
[2017-11-17] MEDS: PIPERACILL/TAZOBAC IV 4.5 GM in DEXTROSE 5% 100ML 100 ML IV SCH ×3 (05:37→21:31)
[2017-11-17 07:00] VITALS: BP 103/70; PULSE 95; TEMP 36.7; O2SAT 94
--- NOTE | 2017-11-17 08:32 | Surgery Progress Note ---
Surgery Progress Note Date of Service Nov 17, 2017. Subjective + feeling well, + bowel movement (loose), + pain controlled, No nausea, No vomiting Objective Vital Signs: Date Time Temp Pulse Resp B/P (MAP) Pulse Ox O2 Delivery O2 Flow Rate FiO2 11/17/17 07:00 36.7 95 18 103/70 (81) 94 Room Air 11/16/17 23:45 CPAP 11/16/17 22:52 36.7 89 17 115/62 (79) 96 CPAP 11/16/17 22:43 94 93 21 11/16/17 20:01 92 96 Room Air 11/16/17 16:04 36.7 103 18 97/58 (71) 93 Room Air 11/16/17 16:00 Room Air 11/16/17 09:20 Room Air 11/16/17 08:53 99 Room Air General Appearance: WD/WN, no apparent distress Abdomen: soft, + pertinent finding (tenderness and burning at incision sites. ) Laboratory Results: Results Past 24 Hours Test 11/16/17 11:59 11/16/17 16:52 11/16/17 21:16 11/16/17 23:44 Range/Units Bedside Glucose 111 120 123 70-90 mg/dl White Blood Count 10.83 4.8-10.8 K/uL Red Blood Count 3.83 4.2-5.4 M/uL Hemoglobin 10.0 12.0-16.0 g/dL Hematocrit 30.2 37-47 % Mean Corpuscular Volume 78.9 80-100 fL Mean Corpuscular Hemoglobin 26.1 25-34 pg Mean Corpuscular Hemoglobin Concent 33.1 32-36 g/dl Platelet Count 418 130-400 K/uL Mean Platelet Volume 10.0 7.4-10.4 fL Neutrophils (%) (Auto) 62.7 % Lymphocytes (%) (Auto) 22.7 % Monocytes (%) (Auto) 11.4 % Eosinophils (%) (Auto) 2.6 % Basophils (%) (Auto) 0.1 % Neutrophils # (Auto) 6.79 1.4-6.5 K/uL Lymphocytes # (Auto) 2.46 1.2-3.4 K/uL Monocytes # (Auto) 1.24 0.11-0.59 K/uL Eosinophils # (Auto) 0.28 0-0.5 K/uL Basophils # (Auto) 0.01 0-0.2 K/uL RDW Standard Deviation 44.9 36.4-46.3 fL RDW Coefficient of Variation 15.6 11.5-14.5 % Immature Granulocyte % (Auto) 0.5 % Immature Granulocyte # (Auto) 0.05 0.00-0.02 K/uL Sodium Level 135 136-145 mmol/L Potassium Level 3.8 3.5-5.1 mmol/L Chloride Level 97 98-107 mmol/L Carbon Dioxide Level 28 21-32 mmol/L Anion Gap 10.0 3-11 mmol/L Blood Urea Nitrogen 21 7-18 mg/dl Creatinine 0.61 0.60-1.20 mg/dl Est Creatinine Clear Calc Drug Dose 110.0 ml/min Estimated GFR () 119.1 Estimated GFR (Non- 102.8 BUN/Creatinine Ratio 33.9 10-20 Random Glucose 92 70-99 mg/dl Calcium Level 9.0 8.5-10.1 mg/dl Test 11/17/17 07:58 Range/Units Bedside Glucose 117 70-90 mg/dl Assessment & Plan 11/17/2017 Patient seen and examined with Dr. Villalobos. Doing well- liquid bowel movement this AM. Dressings removed and incision examined- sutures in place- q tip placed in incision and a fair of amount of drainage came out. 1/2 inch packing placed with safety pin at the end. New clean dressings placed. Continue PT/OT TPN per medicine service- plan is to stop TPN today. 11/16/17 rec weaning TPN ? early wound infection. zosyn restarted. will monitor closely as to whether we need to open the ileostomy wound awaiting bowel fx cont PT/OT
[2017-11-17] MEDS: IPRATROPIUM BROMIDE/ALBUTEROL respimat INH INH SCH ×4 (08:42→21:12)
[2017-11-17] MEDS: LACTOBACILLUS ACIDOPHILUS (FLORANEX) TAB PO SCH ×3 (08:43→21:12)
[2017-11-17] MEDS: LISINOPRIL 5 MG TAB PO SCH (08:44)
[2017-11-17] MEDS: METOPROLOL SUCC 50MG EXT REL TAB PO SCH (08:44)
[2017-11-17] MEDS: FAMOTIDINE 20 MG TAB PO SCH (08:45)
[2017-11-17] MEDS: MAGNESIUM OXIDE 400 MG TAB PO SCH (08:45)
[2017-11-17] MEDS: POTASSIUM CHLORIDE 10 MEQ TABCR PO SCH (08:45)
[2017-11-17] MEDS: LORATADINE 10 MG TAB PO SCH (08:45)
[2017-11-17] MEDS: FUROSEMIDE 20 MG TAB PO SCH (08:45)
[2017-11-17] MEDS: CHOLESTYRAMINE LIGHT 4 GM PKT PO SCH (08:46)
[2017-11-17] MEDS: APIXABAN 2.5 MG TAB PO SCH ×2 (08:47→21:12)
[2017-11-17] MEDS: INSULIN ASPART 100 UNITS/ML 3 ML PEN SC SCH ×4 (10:10→21:00)
--- NOTE | 2017-11-17 11:17 | SURGERY PROGRESS NOTE ---
DATE: 11/17/2017 SUBJECTIVE: Luisa was seen today. Her chest incisions look great. I think her abdominal incision looks good. Yolanda Lagos opened her abdominal incision to allow drainage, but she has antibiotic beads in place and I would not be too concerned about draining this. I think that she is going to do well with this. Her bowel function is returning and she looks quite good from my standpoint. ALEXA
--- NOTE | 2017-11-17 14:33 | Pharmacy Progress Note ---
Pharmacy Glycemic Short Note 2 Date of Service Nov 17, 2017. OUTPATIENT ANTIDIABETIC REGIMEN: * Lantus 15 units HS + Novolog TIDM ASSESSMENT: 11/15/17 * Ms Bernard is a 52 y/o F admitted with abdominal wall cellulitis. See progress note from 11/11/17 for background info, in short: * Patient is on day # 10 of TPN which contains 200 grams of dextrose * Patient received a total of 43 units of insulin over the past 24 hours: * 10 units of basal insulin * 33 units of bolus insulin (30 units in TPN, 3 units of Novolog) * BSGs: 90, 137, 157, 200, 212 mg/dL * Fasting BSG near goal, therefore no changes will be made to basal insulin today * Post-prandial BSGs rise throughout the day. I suspect this is due to the addition of a clear liquid diet yesterday and decreasing the amount of insulin in the TPN (11/11-11/13: 50 units -> 35 units -> 30 units) 11/16/17 * PO intake slowly advancing and TPN will be decreased further today to 100 gm dextrose over 24 hours * BSGs have ranged from 90-150 mg/dL * Patient received 46 units of insulin yesterday * Since BSGs have been a little on the lower side today (90,111), insulin in TPN will be lowered a little more than keeping proportionately * Will plan to keep same basal for now * CR added a few days ago still seems to be working well 11/17/17 * The patient received 29 units of insulin over the past 24 hours * Her TPN will be d/c'd today, along with the insulin in it * Prior to receiving TPN, she was receiving 15 units of Lantus once daily so continuing her on the current dose of Lantus should be reasonable * She is already ordered a CF/CR with her Novolog that seems to be working well PLAN FOR INPATIENT GLYCEMIC CONTROL: * Basal insulin * Continue Lantus 10 units SQ HS * Bolus insulin - no change * NovoLog per scale ACHS or Q6hrs while NPO * Goal Range: Low 140 mg/dL - High 180 mg/dL * Correction Factor: 20 mg/dL/unit * Carb ratio: 1 units for every 6 grams CHO * D/C insulin in TPN when bag d/c'd today Thank you
[2017-11-17 15:41] VITALS: BP 92/61; PULSE 96; TEMP 36.9; O2SAT 99
[2017-11-17] MEDS: ATORVASTATIN 20 MG TAB PO SCH (21:12)
[2017-11-17] MEDS: MONTELUKAST SOD 10 MG TAB PO SCH (21:13)
[2017-11-17] MEDS: INSULIN GLARGINE SOLOSTAR 100 UNITS/ML 3 ML PEN SC SCH (21:28)
[2017-11-17 23:12] VITALS: BP 87/63; PULSE 99; TEMP 36.8; O2SAT 94
[2017-11-17 23:16] VITALS: PULSE 81; O2SAT 93
[2017-11-18] MEDS ORDERED: SODIUM CHLORIDE 0.9% 500ML 500 ML IV ONE (01:00)
[2017-11-18] MEDS: ACETAMINOPHEN IV 1,000 MG in EMPTY BAG 0 ML IV SCH ×3 (01:38→18:05)
[2017-11-18 04:00] VITALS: BP 90/55
[2017-11-18] MEDS: OXYCODONE HCL IR 5 MG TAB (IMMEDIATE RELEASE) PO PRN ×2 (04:24→23:46)
[2017-11-18] MEDS: LEVOTHYROXINE 200 MCG TAB PO SCH (05:55)
[2017-11-18] MEDS: PIPERACILL/TAZOBAC IV 4.5 GM in DEXTROSE 5% 100ML 100 ML IV SCH ×3 (05:55→21:57)
[2017-11-18] MEDS: INSULIN ASPART 100 UNITS/ML 3 ML PEN SC SCH ×4 (08:00→21:55)
[2017-11-18 08:15] VITALS: BP 99/61; PULSE 98; TEMP 36.7; O2SAT 97
[2017-11-18] MEDS: IPRATROPIUM BROMIDE/ALBUTEROL respimat INH INH SCH ×4 (09:19→21:45)
[2017-11-18] MEDS: LORATADINE 10 MG TAB PO SCH (09:26)
[2017-11-18] MEDS: APIXABAN 2.5 MG TAB PO SCH ×2 (09:27→21:47)
[2017-11-18] MEDS: POTASSIUM CHLORIDE 10 MEQ TABCR PO SCH (09:28)
[2017-11-18] MEDS: LACTOBACILLUS ACIDOPHILUS (FLORANEX) TAB PO SCH ×3 (09:28→21:46)
[2017-11-18] MEDS: FAMOTIDINE 20 MG TAB PO SCH (09:29)
[2017-11-18] MEDS: MAGNESIUM OXIDE 400 MG TAB PO SCH (09:29)
[2017-11-18] MEDS: CHOLESTYRAMINE LIGHT 4 GM PKT PO SCH (09:29)
[2017-11-18] MEDS: FUROSEMIDE 20 MG TAB PO SCH (09:29)
[2017-11-18] MEDS: LISINOPRIL 5 MG TAB PO SCH (09:30)
[2017-11-18] MEDS: METOPROLOL SUCC 50MG EXT REL TAB PO SCH (09:32)
--- NOTE | 2017-11-18 11:07 | Surgery Progress Note ---
Surgery Progress Note Date of Service Nov 18, 2017. Subjective + feeling well, + bowel movement, + flatus, + pain controlled, No complaints, No nausea, No vomiting Objective Vital Signs: Date Time Temp Pulse Resp B/P (MAP) Pulse Ox O2 Delivery O2 Flow Rate FiO2 11/18/17 04:00 90/55 (67) 11/17/17 23:30 BiPAP 11/17/17 23:16 81 93 21 11/17/17 23:12 36.8 99 16 87/63 (71) 94 Room Air 11/17/17 17:02 Room Air 11/17/17 15:41 36.9 96 20 92/61 (71) 99 Room Air 11/17/17 08:15 Room Air General Appearance: WD/WN, no apparent distress Head: normocephalic, atraumatic Abdomen: soft, + tenderness (generalized abdominal tenderness with palpation. ) Incision(s): drainage (fair amount of dark brown drainage from incision- incision intact. ) Laboratory Results: Results Past 24 Hours Test 11/17/17 12:16 11/17/17 17:00 11/17/17 20:16 Range/Units Bedside Glucose 151 90 110 70-90 mg/dl Assessment & Plan 11/18/17 Patient seen and examined with Dr. Villalobos. No new concerns or complaints overnight. +2 BM yesterday Pain controlled. Tolerating full liquid diet. Will advance to regular diet. TPN D/C yesterday. Ambulating to and from bathroom and even in hallway. New dressing applied to right abdomen and new optifoam applied to left abdomen. 11/17/2017 Patient seen and examined with Dr. Villalobos. Doing well- liquid bowel movement this AM. Dressings removed and incision examined- sutures in place- q tip placed in incision and a fair of amount of drainage came out. 1/2 inch packing placed with safety pin at the end. New clean dressings placed. Continue PT/OT TPN per medicine service- plan is to stop TPN today. 11/16/17 rec weaning TPN ? early wound infection. zosyn restarted. will monitor closely as to whether we need to open the ileostomy wound awaiting bowel fx cont PT/OT
--- NOTE | 2017-11-18 13:22 | Pharmacy Progress Note ---
Pharmacy Glycemic Short Note 2 Date of Service Nov 18, 2017. OUTPATIENT ANTIDIABETIC REGIMEN: * Lantus 15 units HS + Novolog TIDM ASSESSMENT: 11/15/17 * Ms Bernard is a 52 y/o F admitted with abdominal wall cellulitis. See progress note from 11/11/17 for background info, in short: * Patient is on day # 10 of TPN which contains 200 grams of dextrose * Patient received a total of 43 units of insulin over the past 24 hours: * 10 units of basal insulin * 33 units of bolus insulin (30 units in TPN, 3 units of Novolog) * BSGs: 90, 137, 157, 200, 212 mg/dL * Fasting BSG near goal, therefore no changes will be made to basal insulin today * Post-prandial BSGs rise throughout the day. I suspect this is due to the addition of a clear liquid diet yesterday and decreasing the amount of insulin in the TPN (11/11-11/13: 50 units -> 35 units -> 30 units) 11/16/17 * PO intake slowly advancing and TPN will be decreased further today to 100 gm dextrose over 24 hours * BSGs have ranged from 90-150 mg/dL * Patient received 46 units of insulin yesterday * Since BSGs have been a little on the lower side today (90,111), insulin in TPN will be lowered a little more than keeping proportionately * Will plan to keep same basal for now * CR added a few days ago still seems to be working well 11/17/17 * The patient received 29 units of insulin over the past 24 hours * Her TPN will be d/c'd today, along with the insulin in it * Prior to receiving TPN, she was receiving 15 units of Lantus once daily so continuing her on the current dose of Lantus should be reasonable * She is already ordered a CF/CR with her Novolog that seems to be working well 11/18/17 * Patient received 24 units of insulin yesterday * TPN d/c'd yesterday * Fasting 93 this AM: will reduce basal by 10% since this has dropped slightly and she is no longer on TPN * Continue same CF/CR as it seems to be working well PLAN FOR INPATIENT GLYCEMIC CONTROL: * Basal insulin * Decrease Lantus to 9 units SQ HS * Bolus insulin - no change * NovoLog per scale ACHS or Q6hrs while NPO * Goal Range: Low 140 mg/dL - High 180 mg/dL * Correction Factor: 20 mg/dL/unit * Carb ratio: 1 units for every 6 grams CHO Thank you
[2017-11-18 14:58] VITALS: BP 90/62; PULSE 100; TEMP 37; O2SAT 95
--- NOTE | 2017-11-18 19:54 | PROGRESS NOTE ---
DATE: 11/18/2017 HISTORY OF PRESENT ILLNESS: Ms. 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 Additionally, she has severe protein calorie malnutrition. She was on TPN from 11/05/2017 through 11/17/2017, and subsequently converted to a clear liquid diet as of yesterday. She has tolerated that so far. The patient also has a history of a wide resection of her lung, and with confirmation that her lung nodule was metastatic colon cancer, she will start chemotherapy as an outpatient once discharged. She will be followed by Dr. Quintana. The patient offers no complaints today. She is tolerating her diet, and has had 2 bowel movements today. She still has an open wound on her abdomen, although it appears to be healing. There is a slight serosanguineous drainage from the midline abdominal incision. The patient continues on antibiotics to be continued through this weekend. She has not had any fever or chills. The patient offers no complaints. She denies any chest pain, illness, shortness of breath, palpitations or tachycardic palpitations. She denies any lightheaded spells, dizzy spells or weakness. No signs or symptoms of stroke or mini stroke. MEDICATIONS: 1. Lantus insulin. 2. Eliquis 5 mg b.i.d. 3. Zosyn q. 8 hours IV. 4. OxyIR 1-2 tablets every 4 hours as needed for pain. 5. NovoLog sliding scale. 6. Tylenol 1000 mg IV q. 8 hours. 7. Benadryl 25 mg p.o. q. 6 hours p.r.n. for itching. 8. Pepcid 20 mg daily. 9. Lasix 20 mg p.o. every day. 10. Lisinopril 5 mg daily. 11. Loratadine 10 mg daily. 12. Mag ox 400 mg daily. 13. Toprol-XL 50 mg daily. 14. KCl 10 mEq daily. 15. Questran Light 4 grams daily. 16. Synthroid 112 mcg daily. 17. Lipitor 20 mg daily. 18. Singulair 10 mg daily. 19. Lorazepam 0.5 mg IV q. 4 hours p.r.n. for anxiety. 20. Lorazepam 1 mg IV q. 4 hours p.r.n. for anxiety. 21. Combivent Respimat 1 puff q.i.d. 22. Florinef 4 tablets t.i.d. 23. Maalox Max p.r.n. 24. Milk of Magnesia p.r.n. 25. Zofran 4 mg IV q. 6 hours as needed for nausea. 26. Albuterol 2 puffs p.o. q. 6 hours p.r.n. for shortness of breath or wheezing. PHYSICAL EXAMINATION: GENERAL: The patient is in no acute distress. She was lying in bed sleeping when I awakened her. HEENT: Head is atraumatic, normocephalic. EOMs intact. Sclerae are anicteric. Face is symmetric. No perioral cyanosis. Mucous membranes moist. NECK: No sign of JVD. Carotid upstrokes +2 bilaterally without bruits. CHEST AND LUNGS: Mildly diminished breath sounds at the left base, otherwise clear. No wheezes, rales or rhonchi. CARDIOVASCULAR: S1 and S2 are irregularly irregular with a grade 2/6 systolic murmur noted at left sternal border. No diastolic murmurs. No gallops or rubs. ABDOMEN: Bowel sounds are present. EXTREMITIES: Dressing is present over the surgical incision. EXTREMITIES is present the right upper extremity. Calves are soft, nontender. No edema. NEUROLOGIC: The patient is awake, alert and oriented. Pleasant and cooperative. Answers questions appropriately. Speech is clear. LABORATORIES: White blood cell count is 10.83. Hemoglobin 10.0 g/dL, hematocrit 30.2% and platelet count is 418,000. Random glucose 79 mg/dL. ASSESSMENT: 1. Abdominal wall cellulitis, possible abscess. 2. Severe protein calorie malnutrition. 3. Rectosigmoid cancer s/p reversal of loop ileostomy, 11/13/2017. 4. Lung nodule consistent with metastatic colon cancer s/p LLL wedge resection 11/08/2017. 5. Atrial fibrillation, rate controlled. 6. Dyslipidemia. 7. Hypertension. 8. Type 2 diabetes mellitus. 9. Asthma. 10. Hypothyroidism. 11. Obstructive sleep apnea. 12. Morbid obesity. PLAN: 1. Diet as per surgery. 2. TPN was discontinued 24 hours ago. 3. Continue IV antibiotics through this weekend. 4. Thus far, she is tolerating her clear liquid diet. 5. Continue Toprol-XL 50 mg daily. 6. Continue Eliquis 5 mg b.i.d. for thromboembolic prophylaxis. 7. Continue Lipitor. 8. Continue Lisinopril 5 mg daily. 9. Continue Lantus 15 units q. p.m. and sliding scale insulin coverage. 10. Continue inhalers and Singulair. 11. Continue electrolyte replacement. 12. Continue CPAP for obstructive sleep apnea. 13. Consider rehabilitation hospital stay -- although the patient is opposed to this. Provided she regains her strength and stamina - may send her directly home from the hospitalization. 14. The patient will be followed then by Dr. Quintana as an outpatient and will likely start outpatient chemotherapy. 15. We will continue to follow. ALEXA
[2017-11-18] MEDS: ATORVASTATIN 20 MG TAB PO SCH (21:46)
[2017-11-18] MEDS: MONTELUKAST SOD 10 MG TAB PO SCH (21:48)
[2017-11-18] MEDS: INSULIN GLARGINE SOLOSTAR 100 UNITS/ML 3 ML PEN SC SCH (21:56)
[2017-11-18 23:20] VITALS: BP 103/62; PULSE 119; TEMP 37.2; O2SAT 95
[2017-11-19] MEDS: ACETAMINOPHEN IV 1,000 MG in EMPTY BAG 0 ML IV SCH (01:35)
[2017-11-19] MEDS: PIPERACILL/TAZOBAC IV 4.5 GM in DEXTROSE 5% 100ML 100 ML IV SCH ×3 (05:31→21:18)
[2017-11-19] MEDS: LEVOTHYROXINE 200 MCG TAB PO SCH (05:32)
[2017-11-19 05:42] LABS: BASO % 0.3 %; BASO ABS # 0.02 K/uL (0-0.2); EOS % 5.5 %; EOS ABS # 0.42 K/uL (0-0.5); HEMATOCRIT 25.9 % (37-47); HEMOGLOBIN 8.3 g/dL (12.0-16.0); IG# 0.03 K/uL (0.00-0.02); LYMPH % 27.8 %; LYMPH ABS # 2.13 K/uL (1.2-3.4); MEAN CELL VOLUME 78.7 fL (80-100); MEAN CORPUSCULAR HEMOGLOBIN 25.2 pg (25-34); MEAN PLATELET VOLUME 9.2 fL (7.4-10.4); MONO % 12.4 %; MONO ABS # 0.95 K/uL (0.11-0.59); NEUT % 53.6 %; NEUT ABS # 4.11 K/uL (1.4-6.5); PLATELET COUNT 356 K/uL (130-400); RED CELL DISTRIBUTION WIDTH SD 46.2 fL (36.4-46.3); WHITE BLOOD COUNT 7.66 K/uL (4.8-10.8)
[2017-11-19 06:13] LABS: CREATININE 0.63 mg/dl (0.60-1.20)
[2017-11-19 08:04] VITALS: BP 126/76; PULSE 107; TEMP 36.6; O2SAT 96
--- NOTE | 2017-11-19 08:34 | SURGERY PROGRESS NOTE ---
DATE: 11/19/2017 Mrs. Bernard was inspected today. I think she looks great. Her white count is 7660. Hemoglobin has dropped some. She is moving her bowels. She has been afebrile with stable vital signs. She is on room air. I think her incision looks very good. She does not appear to me to have any evidence of an abscess and her erythema is improving daily. MTDD
[2017-11-19] MEDS ORDERED: RXC5 PO (09:05)
[2017-11-19] MEDS ORDERED: AMOX875T PO (09:05)
[2017-11-19] MEDS: LACTOBACILLUS ACIDOPHILUS (FLORANEX) TAB PO SCH ×3 (09:06→20:12)
[2017-11-19] MEDS: LISINOPRIL 5 MG TAB PO SCH (09:07)
[2017-11-19] MEDS: METOPROLOL SUCC 50MG EXT REL TAB PO SCH (09:07)
[2017-11-19] MEDS: MAGNESIUM OXIDE 400 MG TAB PO SCH (09:07)
[2017-11-19] MEDS: FUROSEMIDE 20 MG TAB PO SCH (09:07)
[2017-11-19] MEDS: POTASSIUM CHLORIDE 10 MEQ TABCR PO SCH (09:07)
[2017-11-19] MEDS: LORATADINE 10 MG TAB PO SCH (09:07)
[2017-11-19] MEDS: FAMOTIDINE 20 MG TAB PO SCH (09:08)
[2017-11-19] MEDS: CHOLESTYRAMINE LIGHT 4 GM PKT PO SCH (09:08)
[2017-11-19] MEDS: IPRATROPIUM BROMIDE/ALBUTEROL respimat INH INH SCH ×4 (09:09→21:13)
[2017-11-19] MEDS: APIXABAN 2.5 MG TAB PO SCH ×2 (09:09→20:12)
[2017-11-19] MEDS: INSULIN ASPART 100 UNITS/ML 3 ML PEN SC SCH ×4 (09:24→21:00)
[2017-11-19] MEDS ORDERED: ACETAMINOPHEN 325 MG TAB PO PRN (11:00)
[2017-11-19 12:43] LABS: HEMATOCRIT 26.6 % (37-47); HEMOGLOBIN 8.5 g/dL (12.0-16.0)
[2017-11-19] MEDS: OXYCODONE HCL IR 5 MG TAB (IMMEDIATE RELEASE) PO PRN ×2 (14:25→22:48)
--- NOTE | 2017-11-19 14:45 | Surgery Progress Note ---
Surgery Progress Note Date of Service Nov 19, 2017. Subjective + feeling well, + ambulating (with therapy), + bowel movement, + diet (regular) , No nausea Objective Vital Signs: Date Time Temp Pulse Resp B/P (MAP) Pulse Ox O2 Delivery O2 Flow Rate FiO2 11/19/17 10:02 Room Air 11/19/17 08:04 36.6 107 18 126/76 (93) 96 Room Air 11/18/17 23:45 Room Air BiPAP 11/18/17 23:20 37.2 119 16 103/62 (76) 95 Room Air 11/18/17 16:40 Room Air 11/18/17 14:58 37.0 100 18 90/62 (71) 95 Room Air Abdomen: soft Incision(s): no drainage, erythema (improved) Laboratory Results: Results Past 24 Hours Test 11/18/17 16:55 11/18/17 20:49 11/19/17 05:31 11/19/17 08:11 Range/Units Bedside Glucose 79 187 100 70-90 mg/dl White Blood Count 7.66 4.8-10.8 K/uL Red Blood Count 3.29 4.2-5.4 M/uL Hemoglobin 8.3 12.0-16.0 g/dL Hematocrit 25.9 37-47 % Mean Corpuscular Volume 78.7 80-100 fL Mean Corpuscular Hemoglobin 25.2 25-34 pg Mean Corpuscular Hemoglobin Concent 32.0 32-36 g/dl Platelet Count 356 130-400 K/uL Mean Platelet Volume 9.2 7.4-10.4 fL Neutrophils (%) (Auto) 53.6 % Lymphocytes (%) (Auto) 27.8 % Monocytes (%) (Auto) 12.4 % Eosinophils (%) (Auto) 5.5 % Basophils (%) (Auto) 0.3 % Neutrophils # (Auto) 4.11 1.4-6.5 K/uL Lymphocytes # (Auto) 2.13 1.2-3.4 K/uL Monocytes # (Auto) 0.95 0.11-0.59 K/uL Eosinophils # (Auto) 0.42 0-0.5 K/uL Basophils # (Auto) 0.02 0-0.2 K/uL RDW Standard Deviation 46.2 36.4-46.3 fL RDW Coefficient of Variation 16.0 11.5-14.5 % Immature Granulocyte % (Auto) 0.4 % Immature Granulocyte # (Auto) 0.03 0.00-0.02 K/uL Polychromasia 1+ Spherocytes OCCASIONAL Creatinine 0.63 0.60-1.20 mg/dl Est Creatinine Clear Calc Drug Dose 104.6 ml/min Estimated GFR () 117.9 Estimated GFR (Non- 101.7 Test 11/19/17 12:00 11/19/17 12:09 Range/Units Hemoglobin 8.5 12.0-16.0 g/dL Hematocrit 26.6 37-47 % Bedside Glucose 137 70-90 mg/dl Assessment & Plan takedown loop ileostomy, left A-port LLQ incision improved cont abx, will continue Augmentin at discharge H&H stable d/c planning, rehab vs home health f/u 1 week after discharge seen by Dr. Rogers this AM
--- NOTE | 2017-11-19 16:14 | Hospitalist Progress Note ---
Hospitalist Progress Note Date of Service Nov 19, 2017. (Sarahi Garcia ., PA-C) Subjective Pt evaluation today including: conversation w/ patient, physical exam, chart review, lab review, review of inpatient medication list Pain: 8/10 RLQ pain PO Intake: Tolerating regular diet Voiding: no voiding problems The patient complains of 8/10 cramping pain in RLQ and a 5/10 aching pain in left lateral chest at surgical sites. She reports feeling more fatigued but is otherwise feeling well and denies complaints. She is tolerating regular diet. The patient denies fevers, chills, sweats, palpitations, claudication, cough, wheezing, shortness of breath, nausea, vomiting, dysuria, hematuria, urinary retention, paralysis, weakness, numbness and tingling. Additional Comments: See HPI for pertinent positives and negatives. All other systems reviewed and negative. (Sarahi Garcia ., PA-C) Objective Vital Signs Date Time Temp Pulse Resp B/P (MAP) Pulse Ox O2 Delivery O2 Flow Rate FiO2 11/19/17 10:02 Room Air 11/19/17 08:04 36.6 107 18 126/76 (93) 96 Room Air 11/18/17 23:45 Room Air BiPAP 11/18/17 23:20 37.2 119 16 103/62 (76) 95 Room Air 11/18/17 16:40 Room Air (Sarahi Garcia ., PA-C) Physical Exam Notes: General appearance: +Morbidly obese. Well-developed, well-nourished, no apparent distress Head: Normocephalic, atraumatic Eyes: Normal inspection, PERRL, EOMI ENT: Normal ENT inspection, hearing grossly normal, pharynx normal Neck: Supple, no JVD, trachea midline Respiratory/Chest: Lungs clear to auscultation, normal breath sounds, no respiratory distress Cardiovascular: +Irregularly irregular. No gallop, no murmur Abdomen/GI: +Erythema in pannus folds. RLQ ileostomy reversal surgical site closed, healing. Small open wound in pannus fold with slough. Another smaller open wound just inferior to that. Midline incision scabbed. Lower quadrants TTP. Normal bowel sounds, soft Extremities/Musculoskeletal: Normal inspection, no calf tenderness, no pedal edema Neurological/Psych: Alert, normal mood/affect, oriented x 3 Skin: Normal color, warm/dry, no rash (Sarahi Garcia ., SOREN-C) Laboratory Results Last 24 Hours Test 11/18/17 16:55 11/18/17 20:49 11/19/17 05:31 11/19/17 08:11 Bedside Glucose 79 mg/dl 187 mg/dl 100 mg/dl White Blood Count 7.66 K/uL Red Blood Count 3.29 M/uL Hemoglobin 8.3 g/dL Hematocrit 25.9 % Mean Corpuscular Volume 78.7 fL Mean Corpuscular Hemoglobin 25.2 pg Mean Corpuscular Hemoglobin Concent 32.0 g/dl Platelet Count 356 K/uL Mean Platelet Volume 9.2 fL Neutrophils (%) (Auto) 53.6 % Lymphocytes (%) (Auto) 27.8 % Monocytes (%) (Auto) 12.4 % Eosinophils (%) (Auto) 5.5 % Basophils (%) (Auto) 0.3 % Neutrophils # (Auto) 4.11 K/uL Lymphocytes # (Auto) 2.13 K/uL Monocytes # (Auto) 0.95 K/uL Eosinophils # (Auto) 0.42 K/uL Basophils # (Auto) 0.02 K/uL RDW Standard Deviation 46.2 fL RDW Coefficient of Variation 16.0 % Immature Granulocyte % (Auto) 0.4 % Immature Granulocyte # (Auto) 0.03 K/uL Polychromasia 1+ Spherocytes OCCASIONAL Creatinine 0.63 mg/dl Est Creatinine Clear Calc Drug Dose 104.6 ml/min Estimated GFR () 117.9 Estimated GFR (Non- 101.7 Test 11/19/17 12:00 11/19/17 12:09 Hemoglobin 8.5 g/dL Hematocrit 26.6 % Bedside Glucose 137 mg/dl (Sarahi Garcia ., PA-C) Assessment and Plan 51 y/o female with a history of HTN, HLD, a-fib, DM II, asthma, 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 Abdominal wall cellulitis, possible abscess in the setting of morbid obesity and severe protein calorie malnutrition--improving - Infectious disease following, appreciate recs: Continue current abx for minimum of 10 days - Pt previously on vancomycin but developed diffuse rash so this was d/c'd - Continue Zosyn for now, d/c with Augmentin - General surgery following, appreciate recs: Continue abx, switch to Augmentin at d/c - TPN started 11/05. 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 Frozen section looks like metastatic adenocarcinoma , pathology confirms this - Chest tube removed 11/09 - Oncology consulted, appreciate recs: Dr. Quintana will follow - S/p ileostomy reversal 11/13 Atrial fibrillation--stable, rate controlled - Continue metoprolol succinate 50 mg daily and Eliquis 5 mg PO BID HTN, HLD - Continue lisinopril 5 mg PO qd, metoprolol as above, Lipitor 20 mg PO hs DM II--HgbA1c 10.3 on 10/04/17 - She's been on various diabetic regimens over the last few months - Lantus 9 units SC hs - Insulin sliding scale - Check BSGs q ac and qhs - Pharmacy consulted for glycemic control Asthma - Cont Combivent and Singulair Hypothyroidism - Synthroid 1200 g PO qd Obstructive sleep apnea - CPAP DVT prophylaxis -Eliquis -SCDs Code Status -Level I, FULL RESUSCITATION STATUS Disposition: -PT recommends acute inpatient rehab. Patient initially refused, now agreeable -[facility] referral sent (Sarahi Garcia ., NAOMYC) PA Physician Supervision Note: I interviewed and examined the patient. Discussed with Sarahi Garcia PAC and agree with findings and plan as documented in the note. Any exceptions or clarifications are listed here: None Patient is slowly recovering from her abdominal wall cellulitis and ostomy takedown also her left lung resection which would be metastatic disease she did have a drop in her hemoglobin today. We discussed rehab initially she was resistant however I wish to continue to pursue this as she likely will need a given her prolonged hospital stay and multiple surgical procedures Vital signs 36 03/01/2007 18 [id number]/7696% on room air Her lungs are clear she does have some tenderness at her left lateral chest that likely the VATS operative entrance wound Her abdomen is with receding erythema she has sutures in place where her ostomy was taken down and she has a small open area just to the midline Patient is recovering from an ostomy takedown and abdominal cellulitis and recent metastatic diseases she is deconditioned and likely will need some rehab prior to considering initiation of chemotherapy will continue with supportive care paying attention to her anemia diabetes and atrial fibrillation as we have her evaluated for likely acute rehab Documented By: Faizan Mckeon (Faizan Mckeon M.D.)
[2017-11-19 16:28] VITALS: BP 102/71; PULSE 105; TEMP 36.6; O2SAT 93
[2017-11-19] MEDS: ATORVASTATIN 20 MG TAB PO SCH (20:12)
[2017-11-19] MEDS: MONTELUKAST SOD 10 MG TAB PO SCH (20:13)
[2017-11-19] MEDS: INSULIN GLARGINE SOLOSTAR 100 UNITS/ML 3 ML PEN SC SCH (21:17)
[2017-11-19 22:45] VITALS: BP 108/63; PULSE 97; TEMP 37.7; O2SAT 96
[2017-11-20] MEDS: PIPERACILL/TAZOBAC IV 4.5 GM in DEXTROSE 5% 100ML 100 ML IV SCH ×3 (05:28→22:18)
[2017-11-20] MEDS: LEVOTHYROXINE 200 MCG TAB PO SCH (05:29)
[2017-11-20 05:45] VITALS: TEMP 37.3
[2017-11-20 06:41] LABS: HEMATOCRIT 26.8 % (37-47); HEMOGLOBIN 8.6 g/dL (12.0-16.0); MEAN CELL VOLUME 79.1 fL (80-100); MEAN CORPUSCULAR HEMOGLOBIN 25.4 pg (25-34); MEAN CORPUSCULAR HGB CONC 32.1 g/dl (32-36); MEAN PLATELET VOLUME 9.4 fL (7.4-10.4); PLATELET COUNT 409 K/uL (130-400); RED CELL DISTRIBUTION WIDTH CV 16.2 % (11.5-14.5); RED CELL DISTRIBUTION WIDTH SD 46.8 fL (36.4-46.3); WHITE BLOOD COUNT 8.92 K/uL (4.8-10.8)
[2017-11-20 07:58] VITALS: BP 110/75; PULSE 96; TEMP 37.1; O2SAT 96
[2017-11-20 08:00] VITALS: O2SAT 96
[2017-11-20] MEDS: LORATADINE 10 MG TAB PO SCH (08:58)
[2017-11-20] MEDS: IPRATROPIUM BROMIDE/ALBUTEROL respimat INH INH SCH ×4 (08:58→21:24)
[2017-11-20] MEDS: LISINOPRIL 5 MG TAB PO SCH (08:59)
[2017-11-20] MEDS: METOPROLOL SUCC 50MG EXT REL TAB PO SCH (09:00)
[2017-11-20] MEDS: CHOLESTYRAMINE LIGHT 4 GM PKT PO SCH (09:00)
[2017-11-20] MEDS: APIXABAN 2.5 MG TAB PO SCH ×2 (09:01→21:28)
[2017-11-20] MEDS: LACTOBACILLUS ACIDOPHILUS (FLORANEX) TAB PO SCH ×3 (09:02→21:26)
[2017-11-20] MEDS: FUROSEMIDE 20 MG TAB PO SCH (09:02)
[2017-11-20] MEDS: MAGNESIUM OXIDE 400 MG TAB PO SCH (09:03)
[2017-11-20] MEDS: POTASSIUM CHLORIDE 10 MEQ TABCR PO SCH (09:03)
[2017-11-20] MEDS: FAMOTIDINE 20 MG TAB PO SCH (09:04)
[2017-11-20] MEDS: INSULIN ASPART 100 UNITS/ML 3 ML PEN SC SCH ×4 (09:11→21:00)
--- NOTE | 2017-11-20 10:51 | Surgery Progress Note ---
Surgery Progress Note Date of Service Nov 20, 2017. Subjective + feeling well, + bowel movement Objective Vital Signs: Date Time Temp Pulse Resp B/P (MAP) Pulse Ox O2 Delivery O2 Flow Rate FiO2 11/20/17 08:00 96 Room Air 11/20/17 07:58 37.1 96 16 110/75 (87) 96 Room Air 11/20/17 05:45 37.3 11/19/17 23:32 CPAP 11/19/17 22:45 37.7 97 16 108/63 (78) 96 Room Air 11/19/17 16:28 36.6 105 18 102/71 (81) 93 Room Air 11/19/17 15:35 Room Air Abdomen: soft Incision(s): no drainage, erythema (resolved) Laboratory Results: Results Past 24 Hours Test 11/19/17 12:00 11/19/17 12:09 11/19/17 16:56 11/19/17 20:39 Range/Units Hemoglobin 8.5 12.0-16.0 g/dL Hematocrit 26.6 37-47 % Bedside Glucose 137 201 112 70-90 mg/dl Test 11/20/17 05:50 11/20/17 07:55 Range/Units White Blood Count 8.92 4.8-10.8 K/uL Red Blood Count 3.39 4.2-5.4 M/uL Hemoglobin 8.6 12.0-16.0 g/dL Hematocrit 26.8 37-47 % Mean Corpuscular Volume 79.1 80-100 fL Mean Corpuscular Hemoglobin 25.4 25-34 pg Mean Corpuscular Hemoglobin Concent 32.1 32-36 g/dl RDW Standard Deviation 46.8 36.4-46.3 fL RDW Coefficient of Variation 16.2 11.5-14.5 % Platelet Count 409 130-400 K/uL Mean Platelet Volume 9.4 7.4-10.4 fL Bedside Glucose 103 70-90 mg/dl Assessment & Plan takedown loop ileostomy, left A-port continue Augmentin at discharge H&H stable d/c planning, rehab f/u 1 week after discharge
--- NOTE | 2017-11-20 11:43 | Progress Note ---
Progress Note Date of Service Nov 20, 2017. Progress Note Luisa was seen today. She has been ambulating in the hallway. She is moving her bowels. I think her abdominal incision and her left chest incisions are healing very nicely. 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 Dr. Rogers and his team should be congratulated.
--- NOTE | 2017-11-20 14:02 | Pharmacy Progress Note ---
Pharmacy Glycemic Short Note 2 Date of Service Nov 20, 2017. OUTPATIENT ANTIDIABETIC REGIMEN: * Lantus 15 units HS + Novolog TIDM * HbA1c: 10.3% (10/04/17) ASSESSMENT: * Patient's BSGs have been reasonable since pt transitioned from TPN to diet. ( BSGs in the past 24 hours 112, 103, 130) * No changes are required at this time. PLAN FOR INPATIENT GLYCEMIC CONTROL: * Basal insulin * Continue Lantus 9 units SQ HS * Bolus insulin - no change * NovoLog per scale ACHS or Q6hrs while NPO * Goal Range: Low 140 mg/dL - High 180 mg/dL * Correction Factor: 20 mg/dL/unit * Carb ratio: 1 units for every 7 grams CHO Thank you
--- NOTE | 2017-11-20 14:38 | Hospitalist Progress Note ---
Hospitalist Progress Note Date of Service Nov 20, 2017. (Sarahi Garcia ., DANIEL) SOREN Physician Supervision Note: I interviewed and examined the patient. Discussed with Sarahi Garcia PAC and agree with findings and plan as documented in the note. Any exceptions or clarifications are listed here: None This patient is in her usual state of health she is now agreeable to rehab she is having good bowel movements since her ostomy has been reversed and she still has a mild open area near the midline which has some silver gauze in place to try to help with infection control her left chest wound area is less painful today Temperature is 37 1 pulse is 96 respiration rate 16 BP 110/76 and O2 sats 96 on room air Her lungs have decreased breath sounds at the bases but overall good air movement her abdomen shows healing abdominal incision with sutures in place to the right and a 1 cm open area near the midline both within the crease of her abdominal wall Patient is here with abdominal wall cellulitis at the site of her ostomy which is been reversed there is a biopsy of a lung mass which proved to be metastatic cancer this patient will recover and then follow-up with oncology for further treatment of her metastatic colon cancer Documented By: Faizan Mckeon (Faizan Mckeon M.D.) Subjective Pt evaluation today including: conversation w/ patient, physical exam, chart review, review of inpatient medication list Pain: 6/10 RLQ pain PO Intake: Tolerating PO diet Voiding: no voiding problems The patient reports feeling well. She does complain of a 6/10 sharp pain in her RLQ. She denies any pain in the left chest today. She is tolerating a PO diet and moving her bowels. The patient denies fevers, chills, sweats, chest pain, palpitations, claudication, cough, wheezing, shortness of breath, nausea, vomiting, dysuria, hematuria, urinary retention, paralysis, weakness, numbness and tingling. Additional Comments: See HPI for pertinent positives and negatives. All other systems reviewed and negative. (Sarahi Garcia ., DANIEL) Objective Vital Signs Date Time Temp Pulse Resp B/P (MAP) Pulse Ox O2 Delivery O2 Flow Rate FiO2 11/20/17 08:00 96 Room Air 11/20/17 07:58 37.1 96 16 110/75 (87) 96 Room Air 11/20/17 05:45 37.3 11/19/17 23:32 CPAP 11/19/17 22:45 37.7 97 16 108/63 (78) 96 Room Air 11/19/17 16:28 36.6 105 18 102/71 (81) 93 Room Air 11/19/17 15:35 Room Air (Sarahi Garcia ., SOREN-C) Physical Exam Notes: General appearance: +Morbidly obese. Well-developed, well-nourished, no apparent distress Head: Normocephalic, atraumatic Eyes: Normal inspection, PERRL, EOMI ENT: Normal ENT inspection, hearing grossly normal, pharynx normal Neck: Supple, no JVD, trachea midline Respiratory/Chest: Lungs clear to auscultation, normal breath sounds, no respiratory distress Cardiovascular: +Irregularly irregular. No gallop, no murmur Abdomen/GI: +Erythema in pannus folds. RLQ ileostomy reversal surgical site closed, healing. Small open wound in pannus fold with slough. Another smaller open wound just inferior to that. Midline incision scabbed. Lower quadrants TTP. Normal bowel sounds, soft Extremities/Musculoskeletal: Normal inspection, no calf tenderness, no pedal edema Neurological/Psych: Alert, normal mood/affect, oriented x 3 Skin: Normal color, warm/dry, no rash (Sarahi Garcia ., SOREN-C) Laboratory Results Last 24 Hours Test 11/19/17 16:56 11/19/17 20:39 11/20/17 05:50 11/20/17 07:55 Bedside Glucose 201 mg/dl 112 mg/dl 103 mg/dl White Blood Count 8.92 K/uL Red Blood Count 3.39 M/uL Hemoglobin 8.6 g/dL Hematocrit 26.8 % Mean Corpuscular Volume 79.1 fL Mean Corpuscular Hemoglobin 25.4 pg Mean Corpuscular Hemoglobin Concent 32.1 g/dl RDW Standard Deviation 46.8 fL RDW Coefficient of Variation 16.2 % Platelet Count 409 K/uL Mean Platelet Volume 9.4 fL Test 11/20/17 12:11 Bedside Glucose 130 mg/dl (Sarahi Garcia ., PA-C) Assessment and Plan 51 y/o female with a history of HTN, HLD, a-fib, DM II, asthma, 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 Abdominal wall cellulitis, possible abscess in the setting of morbid obesity and severe protein calorie malnutrition--improving - Infectious disease following, appreciate recs: Continue current abx for minimum of 10 days - Pt previously on vancomycin but developed diffuse rash so this was d/c'd - Continue Zosyn for now, d/c with Augmentin - General surgery following, appreciate recs: F/u in 1 week after discharge, Augmentin at discharge - TPN started 11/05. 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 Frozen section looks like metastatic adenocarcinoma , pathology confirms this - Chest tube removed 11/09 - Oncology consulted, appreciate recs: Dr. Quintana will follow - S/p ileostomy reversal 11/13 Atrial fibrillation--stable, rate controlled - Continue metoprolol succinate 50 mg daily and Eliquis 5 mg PO BID HTN, HLD - Continue lisinopril 5 mg PO qd, metoprolol as above, Lipitor 20 mg PO hs DM II--HgbA1c 10.3 on 10/04/17 - She's been on various diabetic regimens over the last few months - Lantus 9 units SC hs - Insulin sliding scale - Check BSGs q ac and qhs - Pharmacy consulted for glycemic control Asthma - Cont Combivent and Singulair Hypothyroidism - Synthroid 1200 g PO qd Obstructive sleep apnea - CPAP DVT prophylaxis -Eliquis -SCDs Code Status -Level I, FULL RESUSCITATION STATUS Disposition: -PT recommends acute inpatient rehab. Patient initially refused, now agreeable -[facility] referral sent (Sarahi Garcia ., PAGalinaC)
[2017-11-20 15:05] VITALS: BP 107/72; PULSE 98; TEMP 37.9; O2SAT 93
[2017-11-20 15:55] VITALS: TEMP 37.1
[2017-11-20] MEDS: ATORVASTATIN 20 MG TAB PO SCH (21:27)
[2017-11-20] MEDS: MONTELUKAST SOD 10 MG TAB PO SCH (21:29)
[2017-11-20] MEDS: INSULIN GLARGINE SOLOSTAR 100 UNITS/ML 3 ML PEN SC SCH (21:46)
[2017-11-20 22:37] VITALS: PULSE 80; O2SAT 94
[2017-11-20] MEDS: OXYCODONE HCL IR 5 MG TAB (IMMEDIATE RELEASE) PO PRN (23:48)
[2017-11-21 00:05] VITALS: BP 112/74; PULSE 92; TEMP 37.4; O2SAT 95
[2017-11-21] MEDS: PIPERACILL/TAZOBAC IV 4.5 GM in DEXTROSE 5% 100ML 100 ML IV SCH ×2 (05:23→13:49)
[2017-11-21] MEDS: LEVOTHYROXINE 200 MCG TAB PO SCH (05:24)
[2017-11-21 06:09] LABS: HEMATOCRIT 26.3 % (37-47); HEMOGLOBIN 8.5 g/dL (12.0-16.0); MEAN CELL VOLUME 78.5 fL (80-100); MEAN CORPUSCULAR HEMOGLOBIN 25.4 pg (25-34); MEAN CORPUSCULAR HGB CONC 32.3 g/dl (32-36); MEAN PLATELET VOLUME 9.2 fL (7.4-10.4); PLATELET COUNT 380 K/uL (130-400); RED CELL DISTRIBUTION WIDTH CV 16.2 % (11.5-14.5); RED CELL DISTRIBUTION WIDTH SD 46.9 fL (36.4-46.3)
[2017-11-21 06:41] LABS: CREATININE 0.65 mg/dl (0.60-1.20)
--- NOTE | 2017-11-21 07:58 | Surgery Progress Note ---
Surgery Progress Note Date of Service Nov 21, 2017. Subjective no new complaints/doing well Objective Vital Signs: Date Time Temp Pulse Resp B/P (MAP) Pulse Ox O2 Delivery O2 Flow Rate FiO2 11/21/17 00:05 37.4 92 18 112/74 (87) 95 Room Air 11/20/17 23:35 Room Air 11/20/17 22:37 80 94 21 11/20/17 16:00 Room Air 11/20/17 15:55 37.1 11/20/17 15:05 37.9 98 16 107/72 (84) 93 Room Air 11/20/17 08:00 96 Room Air 11/20/17 07:58 37.1 96 16 110/75 (87) 96 Room Air General Appearance: no apparent distress Abdomen: soft Incision(s): findings (wound continues to improve daily. less erythema. minimal drainage) Laboratory Results: Results Past 24 Hours Test 11/20/17 12:11 11/20/17 16:53 11/20/17 20:47 11/21/17 05:27 Range/Units Bedside Glucose 130 157 147 70-90 mg/dl White Blood Count 8.50 4.8-10.8 K/uL Red Blood Count 3.35 4.2-5.4 M/uL Hemoglobin 8.5 12.0-16.0 g/dL Hematocrit 26.3 37-47 % Mean Corpuscular Volume 78.5 80-100 fL Mean Corpuscular Hemoglobin 25.4 25-34 pg Mean Corpuscular Hemoglobin Concent 32.3 32-36 g/dl RDW Standard Deviation 46.9 36.4-46.3 fL RDW Coefficient of Variation 16.2 11.5-14.5 % Platelet Count 380 130-400 K/uL Mean Platelet Volume 9.2 7.4-10.4 fL Creatinine 0.65 0.60-1.20 mg/dl Est Creatinine Clear Calc Drug Dose 101.4 ml/min Estimated GFR () 116.7 Estimated GFR (Non- 100.7 Assessment & Plan 11/21/17 continues to improve d/c planning f/u with me in 1-2 weeks. augmentin at d/c 11/16/17 rec weaning TPN ? early wound infection. zosyn restarted. will monitor closely as to whether we need to open the ileostomy wound awaiting bowel fx cont PT/OT 11/15/17 doing as expected. can probably start weaning off TPN soon awaiting bowel fx to increase diet PT/OT will need to monitor ileostomy site closely for high risk of infection 11/12/17 doing well for ileostomy reversal tomorrow discussed risks will also need a mediport for chemo questions answered. 11/11/17 no clinical change cont tpn for reversal sunday11/10/17 no surgical changes. continue current care plan to reverse ileostomy next week 11/08/17 doing reasonably ok clinically discussed with Dr. Delatorre, would be ok to reverse stoma some time next week if she does well with her surgery today. tentatively may plan for ileostomy reversal Sunday. BE was negative discussed case at tumor board. will need a mediport which I can place at time of ileostomy reversal. 11/05/2017 patient see and examined with Dr. Rogers. CT scan reviewed from yesterday Redness slightly improved overnight Continue IV abx. Wound care consult Will attempt to slow ostomy output- will place PICC line, order TPN, keep patient on clear liquid diet. pt seen. as above. erythema improving already. ileostomy is difficult situation /impossible to keep bag in place secondary to body habitus will need to get cellulitis improved prior to attempting reversal will make NPO/sips clears; start TPN; start sandostatin to try and decrease ileostomy output. I do not believe the small pelvis fluid collection is worth going after at this point. wbc already decreasing. will remove livan will obtain BE in the next day or 2. will likely need to have her ileostomy reversed this admission appreciate ID input wound care consult obtained. 11/16/17 rec weaning TPN ? early wound infection. zosyn restarted. will monitor closely as to whether we need to open the ileostomy wound awaiting bowel fx cont PT/OT 11/15/17 doing as expected. can probably start weaning off TPN soon awaiting bowel fx to increase diet PT/OT will need to monitor ileostomy site closely for high risk of infection 11/12/17 doing well for ileostomy reversal tomorrow discussed risks will also need a mediport for chemo questions answered. 11/11/17 no clinical change cont tpn for reversal sunday11/10/17 no surgical changes. continue current care plan to reverse ileostomy next week 11/08/17 doing reasonably ok clinically discussed with Dr. Delatorre, would be ok to reverse stoma some time next week if she does well with her surgery today. tentatively may plan for ileostomy reversal Sunday. BE was negative discussed case at tumor board. will need a mediport which I can place at time of ileostomy reversal. 11/05/2017 patient see and examined with Dr. Rogers. CT scan reviewed from yesterday Redness slightly improved overnight Continue IV abx. Wound care consult Will attempt to slow ostomy output- will place PICC line, order TPN, keep patient on clear liquid diet. pt seen. as above. erythema improving already. ileostomy is difficult situation /impossible to keep bag in place secondary to body habitus will need to get cellulitis improved prior to attempting reversal will make NPO/sips clears; start TPN; start sandostatin to try and decrease ileostomy output. I do not believe the small pelvis fluid collection is worth going after at this point. wbc already decreasing. will remove livan will obtain BE in the next day or 2. will likely need to have her ileostomy reversed this admission appreciate ID input wound care consult obtained.
[2017-11-21 08:01] VITALS: BP 127/96; PULSE 90; TEMP 37.1; O2SAT 95
[2017-11-21 08:11] VITALS: O2SAT 95
[2017-11-21] MEDS: IPRATROPIUM BROMIDE/ALBUTEROL respimat INH INH SCH ×3 (08:50→16:30)
[2017-11-21] MEDS: LORATADINE 10 MG TAB PO SCH (08:51)
[2017-11-21] MEDS: APIXABAN 2.5 MG TAB PO SCH (08:52)
[2017-11-21] MEDS: LACTOBACILLUS ACIDOPHILUS (FLORANEX) TAB PO SCH ×2 (08:53→13:51)
[2017-11-21] MEDS: POTASSIUM CHLORIDE 10 MEQ TABCR PO SCH (08:54)
[2017-11-21] MEDS: MAGNESIUM OXIDE 400 MG TAB PO SCH (08:55)
[2017-11-21] MEDS: FUROSEMIDE 20 MG TAB PO SCH (08:55)
[2017-11-21] MEDS: FAMOTIDINE 20 MG TAB PO SCH (08:56)
[2017-11-21] MEDS: CHOLESTYRAMINE LIGHT 4 GM PKT PO SCH (08:57)
[2017-11-21] MEDS: METOPROLOL SUCC 50MG EXT REL TAB PO SCH (08:58)
[2017-11-21] MEDS: LISINOPRIL 5 MG TAB PO SCH (08:59)
[2017-11-21] MEDS: INSULIN ASPART 100 UNITS/ML 3 ML PEN SC SCH ×3 (09:17→18:15)
[2017-11-21] MEDS: OXYCODONE HCL IR 5 MG TAB (IMMEDIATE RELEASE) PO PRN (10:00)
--- NOTE | 2017-11-21 13:49 | Pharmacy Progress Note ---
Glycemic Control Progress Note Date of Service Nov 21, 2017. Scope Glycemic Pharmacist consulted for glycemic control to write orders per [facility] inpatient glycemic control protocol. Objective Accuchecks BSG (last 24hrs): Test 11/20/17 16:53 11/20/17 20:47 11/21/17 08:05 11/21/17 11:54 Bedside Glucose 157 mg/dl (70-90) 147 mg/dl (70-90) 123 mg/dl (70-90) 83 mg/dl (70-90) HbA1c: 10.3% Recent Pertinent Medications The patient is currently receiving: * Basal insulin: Lantus 9 units every 24 hours - dosed at bedtime * Correctional Insulin: Novolog Correction per scale ACHS Goal Range: Low 140 mg/dL - High 180 mg/dL Correction Factor: 20 mg/dL/unit * Prandial insulin: Per carb ratio of 1 unit per 7 grams CHO consumed Outpatient Anti-Diabetic Meds * Lantus 15 units HS * Novolog TIDM * HbA1c: 10.3% (10/04/17) Assessment & Plan ASSESSMENT: 11/09/17 * BSGs have ranged 83-157 over the last 24 hours * All BSGs at goal * Fasting BSG 123 this AM w/ 9 units Lantus on board * CF and CR performing well PLAN FOR INPATIENT GLYCEMIC CONTROL: * Continuing Lantus 9 units SQ Q HS * Continuing correction factor of 20 mg/dl/unit * Continuing carb ratio of 1 unit per 7grams CHO * Continuing goal range of Low 140 mg/dL - High 180 mg/dL * Please note that the plan above was derived based on current level of insulin resistance and hospital stress. These recommendations are appropriate for inpatient admission only. Plan of care upon discharge will need to be reassessed to avoid potential outpatient hypo/hyperglycemia. Thank you.
[2017-11-21 15:39] VITALS: BP 85/60; PULSE 99; TEMP 37.4; O2SAT 92
[2017-11-21 17:01] VITALS: BP 100/72
[2017-11-21] MEDS ORDERED: INSU1.2I SQ (17:06)
[2017-11-21] MEDS ORDERED: OXYC-57 PO (17:07)
--- NOTE | 2017-11-21 17:12 | Discharge Instructions ---
Discharge Instructions Date of Service Nov 21, 2017. Admission Reason for Admission: Intra-Abdominal Abscess Discharge Discharge Diagnosis / Problem: abdominal wall cellulitis, metastatic colon cancer, ostomy reversal Discharge Goals Goal(s): Diagnostic testing, Therapeutic intervention Activity Recommendations Activity Level: Assistance Required Therapies: Physical Therapy, Occupational Therapy . 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 Frozen section looks like metastatic adenocarcinoma , pathology confirms this - Chest tube removed 11/09 - Oncology consulted, appreciate recs: Dr. Quintana will follow - S/p ileostomy reversal 11/13 Atrial fibrillation--stable, rate controlled - Continue metoprolol succinate 25 mg daily( this was reduced at discharge due to lower blood pressure) and Eliquis 5 mg PO BID HTN, HLD - Continue lisinopril 5 mg PO qd( this is rossi protective from diabetes) ` metoprolol as above, Lipitor 20 mg PO hs DM II--HgbA1c 10.3 on 10/04/17 - Lantus 9 units SC hs- Insulin sliding scale Asthma stable Combivent and Singulair Hypothyroidism Synthroid 1200 g PO qd Obstructive sleep apnea- CPAP DVT prophylaxis-Eliquis -Level I, FULL RESUSCITATION STATUS Current Hospital Diet Patient's current hospital diet: Diabetes Type 2 Diet Discharge Diet Recommended Diet: Low Fiber Diet Procedures Procedures Performed: Insertion of Infusaport Left Subclavian (Procedure #1) Ileostomy Reversal with Application of Stimulan Beads (Procedure #2) Pending Studies Studies pending at discharge: no Laboratory Results Hemoglobin A1c Test 10/04/17 06:15 Range/Units Estimated Average Glucose 249 mg/dl Hemoglobin A1c 10.3 H 4.5-5.6 % Lipid Panel Test 10/03/17 23:10 11/14/17 08:39 Range/Units Triglycerides Level 198 H 127 0-150 mg/dl Cholesterol Level 154 0-200 mg/dl HDL Cholesterol 21 mg/dl Cholesterol/HDL Ratio 7.3 LDL Cholesterol, Calculated 93 mg/dl Medical Emergencies . Who to Call and When: Medical Emergencies: If at any time you feel your situation is an emergency, please call 911 immediately. . Non-Emergent Contact Non-Emergency issues call your: Primary Care Provider Call Non-Emergent contact if: temperature is above 101, your pain is unusual for you . . "Provider Documentation" section prepared by Faizan Mckeon. . Core Measure Problem Core Measures: None
--- NOTE | 2017-11-21 17:16 | Discharge Summary ---
Discharge Summary Date of Service Nov 21, 2017. Discharge Summary Admission Date: Nov 04, 2017 at 19:38 Discharge Date: Nov 21, 2017 Principal Diagnosis: abdominal wall cellulitis, ostomy reversal, metastatic colon cancer Immunizations: Have You Had Influenza Vaccine: N/A Influenza Vaccine Date: Jun 19, 2011 History of Tetanus Vaccine?: Yes History of Pneumococcal: Yes Pneumococcal Date: February 23, 2011 History of Hepatitis B Vaccine: Yes Discharge Exam Review of Systems: Constitutional: No fever, No chills Respiratory: No cough Cardiovascular: No chest pain, No edema Abdomen: + pain, No nausea, No diarrhea Musculoskeletal: No joint pain, No swelling Neurologic: No memory loss, No paralysis Psychiatric: No depression symptoms, No anhedonism, No anxiety Physical Exam: General Appearance: WD/WN, no apparent distress Eyes: normal inspection, sclerae normal Respiratory/Chest: chest non-tender, lungs clear, normal breath sounds Cardiovascular: no murmur, + irregularly irregular Skin: + pertinent finding (has open area near umbilicus in body fold and sutures at ostomy site, will need attention) Hospital Course 51 y/o female with a history of HTN, HLD, a-fib, DM II, asthma, 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 Frozen section looks like metastatic adenocarcinoma , pathology confirms this - Chest tube removed 11/09 - Oncology consulted, appreciate recs: Dr. Quintana will follow - S/p ileostomy reversal 11/13 Atrial fibrillation--stable, rate controlled - Continue metoprolol succinate 25 mg daily( this was reduced at discharge due to lower blood pressure) and Eliquis 5 mg PO BID HTN, HLD - Continue lisinopril 5 mg PO qd( this is rossi protective from diabetes) ` metoprolol as above, Lipitor 20 mg PO hs DM II--HgbA1c 10.3 on 10/04/17 - Lantus 9 units SC hs- Insulin sliding scale Asthma stable Combivent and Singulair Hypothyroidism Synthroid 1200 g PO qd Obstructive sleep apnea- CPAP DVT prophylaxis-Eliquis -Level I, FULL RESUSCITATION STATUS Total Time Spent: Greater than 30 minutes This includes examination of the patient, discharge planning, medication reconciliation, and communication with other providers. Discharge Instructions Please refer to the electronic Patient Visit Report (Discharge Instructions) for additional information.
[2017-11-21] MEDS ORDERED: NURSING VERBAL MED ORDER ONE (17:45)
[2017-11-21 18:24] VITALS: BP 100/72; PULSE 99; TEMP 37.4; O2SAT 92
[2017-11-22] MEDS ORDERED: METOPROLOL SUCC 25MG EXT REL TAB PO SCH (09:00)
[2017-12-18] MEDS ORDERED: METR500T PO (14:59)
[2017-12-18] MEDS ORDERED: CMD5 PO (14:59)
[2017-12-18] MEDS ORDERED: FERR324T PO (14:59)
== END 2017-11-21 19:40 | DRG 856 ==
LOC: EDBD 11:56 → C.EDB 11:57 → ENRESERV 19:10 → C.4E 19:38 → ENRESERV 11-08 17:00 → C.MSICU 11-08 17:28 → EDBEDREQSVC 11-09 12:58 → ENRESERV 11-09 13:33 → C.MSN 11-09 14:33
PROVIDERS: ADMIT Internal Medicine; ATTEND Internal Medicine
PROC: 0BJ08ZZ Inspection of Tracheobronchial Tree, Via Natural or Artificial Opening Endoscopic (ICD-10-PCS; 2017-11-08 11:30)
PROC: 07B74ZX Excision of Thorax Lymphatic, Percutaneous Endoscopic Approach, Diagnostic (ICD-10-PCS; 2017-11-08 11:30)
PROC: 0BBJ4ZZ Excision of Left Lower Lung Lobe, Percutaneous Endoscopic Approach (ICD-10-PCS; 2017-11-08 11:30)
PROC: 0DBB0ZZ Excision of Ileum, Open Approach (ICD-10-PCS; principal; 2017-11-13 11:20)
PROC: 02HV33Z Insertion of Infusion Device into Superior Vena Cava, Percutaneous Approach (ICD-10-PCS; principal; 2017-11-13 11:20)
PROC: 3E063GC Introduction of Other Therapeutic Substance into Central Artery, Percutaneous Approach (ICD-10-PCS; 2017-11-17)
DX: T81.4XXA Infection following a procedure, initial encounter (principal); E43 Unspecified severe protein-calorie malnutrition; L03.311 Cellulitis of abdominal wall; Z68.41 Body mass index [BMI] 40.0-44.9, adult; C78.02 Secondary malignant neoplasm of left lung; K94.19 Other complications of enterostomy; M79.3 Panniculitis, unspecified; J45.909 Unspecified asthma, uncomplicated; E66.01 Morbid (severe) obesity due to excess calories; K21.9 Gastro-esophageal reflux disease without esophagitis; I10 Essential (primary) hypertension; E03.9 Hypothyroidism, unspecified; I34.0 Nonrheumatic mitral (valve) insufficiency; Z86.14 Personal history of Methicillin resistant Staphylococcus aureus infection; Z79.4 Long term (current) use of insulin; Z88.2 Allergy status to sulfonamides; Z88.8 Allergy status to other drugs, medicaments and biological substances; Z88.1 Allergy status to other antibiotic agents; E11.9 Type 2 diabetes mellitus without complications; Z85.048 Personal history of other malignant neoplasm of rectum, rectosigmoid junction, and anus; Z96.652 Presence of left artificial knee joint; I48.91 Unspecified atrial fibrillation; G47.33 Obstructive sleep apnea (adult) (pediatric); D50.9 Iron deficiency anemia, unspecified; N76.0 Acute vaginitis; Z79.01 Long term (current) use of anticoagulants; Y83.8 Other surgical procedures as the cause of abnormal reaction of the patient, or of later complication, without mention of misadventure at the time of the procedure; Y92.239 Unspecified place in hospital as the place of occurrence of the external cause

== ENCOUNTER → 2017-12-03 | Outpatient (CLI) | payer OTHER ==
[~2017-12-03] MED LIST changes: -APIX1TAB3 PO; +ATOR-22 PO; -BCTCR/30 EXT; -EFFSR150 PO; +FLUT1INH7 INH; -LACT10SO17 OR; -LVQ250 OR; -MECL1TAB42 PO; -NTRGSL/4 UT; -SIMV40TA2 PO; -SYMIN/8045 INH; -saline nasal spray
--- NOTE | 2017-12-03 09:40 | DIAGNOSTIC IMAGING REPORT ---
CHEST 2 VIEWS ROUTINE HISTORY: 52 years-old Female Z98.890 Post-operative [id number] follow-up postoperative exam. No acute chest complaints. COMPARISON: Chest radiograph 11/13/2017 TECHNIQUE: PA and lateral views of the chest FINDINGS: Cardiac silhouette is again enlarged, unchanged. Left subclavian [id number]-[id number] catheter appears stable in positioning. There is been interval removal of the right-sided PICC. Surgical clip projects over the left mediastinum. Small left pleural effusion with subsegmental left basilar opacities. There is improved aeration of the bilateral lungs from comparison study. Right lung is clear. No pneumothorax or overt pulmonary edema. The bones appear grossly intact. Multilevel degenerative changes of the spine. IMPRESSION: 1. Cardiomegaly without overt pulmonary edema. 2. Small left pleural effusion with subsegmental left basilar opacities suggesting atelectasis. 3. Interval removal of right-sided PICC. The above report was generated using voice recognition software. It may contain grammatical, syntax or spelling errors. Electronically signed by: Jayjay Crowder M.D. 12/03/2017 9:39 AM Dictated Date/Time: 12/03/2017 9:37 AM
== END | disposition home or self-care (01) ==
LOC: C.RAD1850 09:27
PROVIDERS: ATTEND Surgery
DX: Z98.890 Other specified postprocedural states (principal); I51.7 Cardiomegaly; J90 Pleural effusion, not elsewhere classified

== ENCOUNTER → 2017-12-05 | Outpatient (CLI) | payer OTHER ==
--- NOTE | 2017-12-05 15:05 | DIAGNOSTIC IMAGING REPORT ---
PET/CT SKULL-THIGH CLINICAL HISTORY: 52 years-old Female presenting with NEW LUNG FINDINGS-HX COLON CA, Findings, history of rectosigmoid resection of moderately differentiated adenocarcinoma, left lower lobe pulmonary mass consistent with adenocarcinoma likely colonic from primary. TECHNIQUE: PET/CT was performed from the base of the skull through the proximal thighs following the intravenous administration of 9.607 mCi of F18-FDG. Blood glucose level 131 mg/dL. The injection was performed at 12:45 PM and imaging began at 1:[address] was performed for attenuation correction purposes and anatomic localization. COMPARISON: CT of the abdomen and pelvis from 11/04/2017 CT DOSE (mGy.cm): The estimated cumulative dose is 969.17. FINDINGS: Head and neck: No FDG-avid mass in the visualized portion of the head or neck. No FDG avid or enlarged lymph nodes in the neck. Chest: Left subclavian Mediport terminates in the upper SVC. No FDG avid adenopathy. Normal aorta. Multichamber enlargement of the heart. Interval development of a small left pleural effusion, which may be reactive in the setting of postsurgical change, which may be loculated. Postsurgical changes of wedge resection in the left lower lobe. Solid subcentimeter pulmonary nodule in the right upper lobe (series 2 image 58) with mild FDG avidity. This is at the lower limits of resolution for PET CT. Additional smaller solid pulmonary nodule in the superior segment of the right lower lobe (series 2 image 67), which is below the resolution of PET/CT Abdomen and pelvis: Postsurgical changes of low anterior resection with interval takedown of the right lower quadrant loop ileostomy. Postsurgical changes in the right lower quadrant noted. Mild FDG avidity in the presacral space likely granulation tissue. FDG avid left external iliac lymph node correlates with the recent finding on CT. An additional smaller mildly FDG avid subcentimeter lymph nodes slightly more superiorly is also suspicious for involvement. No FDG avid foci in the solid viscera. Expected FDG avidity throughout the gastrointestinal and genitourinary tracts. Mild FDG avidity along the midline surgical incision scar. Postsurgical changes of hysterectomy. Normal noncontrast appearance of the ovaries. Musculoskeletal: No FDG-avid or destructive osseous lesion. IMPRESSION: 1. Initial PET/CT demonstrates FDG avid left external iliac lymphadenopathy and highly FDG avid right upper lobe pulmonary nodule concerning for metastatic disease. Additional solid pulmonary nodule in the right lower lobe is below the level of resolution on PET CT. 2. Postsurgical changes of low anterior resection with takedown of the right lower quadrant loop ileostomy. 3. Postsurgical changes of wedge resection of the left lower lobe. Electronically signed by: Riaz Blackwood M.D. 12/05/2017 3:03 PM Dictated Date/Time: 12/05/2017 2:45 PM
== END | disposition home or self-care (01) ==
LOC: C.PET 11:14
PROVIDERS: ATTEND Internal Medicine Hematology & Oncology
DX: C18.9 Malignant neoplasm of colon, unspecified (principal); R91.1 Solitary pulmonary nodule

== ENCOUNTER → 2017-12-07 | Outpatient (CLI) | payer OTHER ==
[2017-12-07 17:41] LABS: INR 1.2 (0.9-1.1)
== END | disposition home or self-care (01) ==
LOC: C.LABPVFM 13:54
PROVIDERS: ATTEND Family Medicine
DX: I48.91 Unspecified atrial fibrillation (principal)

== ENCOUNTER → 2017-12-12 | Outpatient (CLI) | payer OTHER ==
[~2017-12-12] MED LIST changes: +CMD5 PO; +FERR324T PO; +METR500T PO
[2017-12-12 17:44] LABS: INR 2.2 (0.9-1.1)
== END | disposition home or self-care (01) ==
LOC: C.LABPVFM 12:09
PROVIDERS: ATTEND Nurse Practitioner Family
DX: I48.91 Unspecified atrial fibrillation (principal)

== ENCOUNTER → 2017-12-13 | Outpatient (CLI) | payer OTHER | END | disposition home or self-care (01) | LOC: C.LABPVFM 11:51 | PROVIDERS: ATTEND Surgery | DX: R19.7 Diarrhea, unspecified (principal) ==

== ENCOUNTER → 2017-12-14 | Outpatient (CLI) | payer OTHER ==
[2017-12-14 17:51] LABS: INR 3.3 (0.9-1.1)
== END | disposition home or self-care (01) ==
LOC: C.LABPVFM 13:36
PROVIDERS: ATTEND Family Medicine
DX: I48.91 Unspecified atrial fibrillation (principal)

== ENCOUNTER 2017-12-15 08:32 | Inpatient (IN) | payer OTHER ==
[~2017-12-15] VITALS: Ht 152.4 cm; Wt 88.9 kg
[~2017-12-15 08:32] MED LIST changes: -CMD5 PO; -FERR324T PO; -METR500T PO
[2017-12-15] MEDS ORDERED: SODIUM CHLORIDE 0.9% 1000ML 1,000 ML IV STA (08:51)
--- NOTE | 2017-12-15 08:53 | EMERGENCY ROOM VISIT NOTE ---
History Report prepared by Cheyanneibjonathan: Lamar Polanco Under the Supervision of: Dr. Zackary Hogan M.D. First contact with patient: 08:45 Chief Complaint: RECTAL BLEEDING Stated Complaint: BLEEDING FROM RECTUM Nursing Triage Summary: Pt states, "I've been bleeding from the rectum. It started yesterday morning. I have c.diff and they wanted me to cut my coumadin down, but I didn't take any yesterday. It's to the point that it's like clots. I went twice yesterday and three times today. I have a colostomy and it was reversed, but it still leaks. There is a hole, they are packing it." Denies n/v. Denies sob. 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 She states she started noticing clots of blood in the toilet bowl after a bowel movement. She is currently on an antibiotic for C-Diff. She states she did not take her Coumadin yesterday. She had her colostomy reversed sometime during her last hospital admission by Dr. Rogers of [facility]. The patient states there is a "spot" in her colostomy site that is still bleeding, and she saw Dr. Rogers's office yesterday and had the area packed. Positive chills, abdominal pain, weakness. Negative shortness of breath, nausea or vomiting. Source of History: patient Onset: yesterday Position: other (rectum) Timing: other (persistent) Associated Symptoms: + chills, + abdominal pain, + weakness, No SOB, No nausea, No vomiting Review of Systems See HPI for pertinent positives and negatives. A total of ten systems were reviewed and were otherwise negative. Past Medical & Surgical Medical Problems: (1) Asthma (2) Diabetes mellitus type 2 in obese (3) Dyslipidemia (4) GERD (gastroesophageal reflux disease) (5) Hepatitis (6) HTN (hypertension) (7) Hypothyroidism (8) Intra-abdominal abscess (9) Lactic acidosis (10) Leaky heart valve (11) Mitral regurgitation (12) Morbid obesity with BMI of 40.0-44.9, adult (13) MRSA (methicillin resistant Staphylococcus aureus) (14) ANA (obstructive sleep apnea) (15) Panniculitis (16) Patella fracture (17) Post-op pain (18) Rectal cancer Surgical Problems: (1) History of carpal tunnel surgery (2) History of hysterectomy (3) History of tonsillectomy and adenoidectomy (4) History of tubal ligation (5) Hx of total knee arthroplasty Family History Diabetes mellitus FH: heart disease FH: lung disease Hypertension Seizures Social History Smoking Status: Never Smoker Alcohol Use: none Drug Use: none Marital Status: Housing Status: lives with significant other Occupation Status: disabled Current/Historical Medications Scheduled Atorvastatin (Lipitor), 20 MG PO HS Cholestyramine (Bulk) (Cholestyramine), 1 PKT DAILY Famotidine (Pepcid), 20 MG PO DAILY Fluticasone Furoate-Vilanterol (Breo Ellipta 200-25 Mcg/INH), 1 PUFF INH QAM Furosemide (Lasix), 20 MG PO QAM Insulin Aspart (Novolog), UNITS SQ TIDM Insulin Glargine (Toujeo Solostar), 9 UNITS SQ DAILY Ipratropium-Albuterol (Combivent Respimat), 1 PUFFS INH QID Lactobacillus Acidophilus (Lactinex), 4 TAB PO TID Levothyroxine Sodium (Levothyroxine Sodium), 6 TAB PO DAILY Lisinopril (Lisinopril), 5 MG PO QAM Loratadine (Claritin), 10 MG PO QAM Magnesium Oxide (Mag-Ox), 400 MG PO DAILY Metoprolol Succinate (Toprol Xl), 25 MG PO DAILY Montelukast Sod (Montelukast Sodium), 10 MG PO HS Potassium Chloride (Micro-K Ext Rel), 10 MEQ PO QAM Scheduled PRN Albuterol Hfa (Ventolin Hfa), 2-4 PUFFS INH Q6H PRN for ASTHMA Ondansetron Hcl (Zofran), 8 MG PO Q6 PRN for Nausea Oxycodone HCl (Oxycodone HCl), 5-10 MG PO Q4H PRN for Pain Oxycodone/Acetaminophen 5MG/325MG (Percocet 5MG/325MG), 1 TABLETS PO Q12H PRN for Pain Allergies Coded Allergies: Daptomycin (Verified Allergy, Severe, SHORTNESS OF BREATH, 12/15/17) 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 Clindamycin (Verified Allergy, Intermediate, HIVES, 12/15/17) Sulfa Antibiotics (Verified Allergy, Intermediate, BACTRIM-HIVES, 12/15/17) Vancomycin (Verified Allergy, Intermediate, RASH, 12/15/17) BEE STING (Verified Allergy, Unknown, HIVES, 12/15/17) Trimethoprim (Verified Allergy, Unknown, HIVES, 12/15/17) Dulaglutide (Verified Adverse Reaction, Severe, BRAND-TRULICITY, SEVERE GI UPSET, CONSTIPATION, 12/15/17) Physical Exam Vital Signs Date Time Temp Pulse Resp B/P (MAP) Pulse Ox O2 Delivery O2 Flow Rate FiO2 12/15/17 12:16 80 18 118/73 97 Room Air 12/15/17 11:30 97 Room Air 12/15/17 10:55 86 18 107/80 97 Room Air 12/15/17 10:10 86 18 104/62 97 Room Air 12/15/17 09:48 86 18 110/71 97 Room Air 12/15/17 09:28 96 Room Air 12/15/17 09:25 92 12/15/17 08:37 37.2 94 18 115/77 98 Room Air Physical Exam GENERAL: Awake, alert, chronically ill-appearing, NAD HENT: Normocephalic, atraumatic. Poor dentition. EYES: Normal conjunctiva. Sclera non-icteric. NECK: Supple. No nuchal rigidity. FROM. RESPIRATORY: CTAB, no rhonchi, wheezing, crackles CARDIAC: RRR, no MRG ABDOMEN: Soft, distended abdomen, bandage in the RLQ area, packed open wound underneath a skin fold w/ mild yellow/whitish drainage. BS+ RECTAL: Dark blood on rectal exam. MSK: No chest wall TTP, no LE edema NEURO: GCS 15, CN 2-12 intact, moves all 4s on command SKIN: No rash or jaundice noted. Medical Decision & Procedures ER Provider Diagnostic Interpretation: Radiology results as stated below per my review and radiologist interpretation: ABD/PELVIS IV CONTRAST ONLY CT DOSE: 1211.62 mGy.cm HISTORY: Pain. h/o met CC s/p ileostomy and recent reversal w/ rectal bleeding TECHNIQUE: Multiaxial CT images of the abdomen and pelvis were performed following the use of intravenous contrast. A dose lowering technique was utilized adhering to the principles of ALARA. COMPARISON STUDY: 11/04/2017 FINDINGS: Interval development of a small left pleural effusion with left basilar atelectatic change. Radiopaque material is present possibly from resection of the frantz processes left lung base. Mild heterogeneity of the liver of uncertain significance. This potentially is technical. Spleen is unremarkable. The adrenal glands are within normal limits. The kidneys enhance appropriately. There has been interval reversal of the patient's right sided anterior ostomy. At the ostomy site is a complex solid/semisolid collection including air which potentially represents a postoperative phlegmon is type process. This measures 6.5 x 3.5 cm. A drainable pocket percutaneously is not felt to be present. There is a small amount of postoperative air and soft tissue within the deep periumbilical region. This is similar as compared to the prior study. Operative changes consistent with a low sigmoid resection are again noted. The presacral soft tissue is unchanged. No evidence for drainable abscess or collection. Bowel pattern is nonobstructive. IMPRESSION: 1. Interval reversal of the patient's right-sided ostomy. 2. Residual complex air/debris phlegmon type process combined with what appears to be potential mesh placement within the subcutaneous fat at the ostomy reversal site measuring 6.5 x 3.5 cm. 3. Unchanging presacral soft tissue. 4. Interval postoperative changes of what appear to be the left lung base with a small residual pleural effusion and basilar atelectatic change. The above report was generated using voice recognition software. It may contain grammatical, syntax or spelling errors. Electronically signed by: Iker Avelar M.D. 12/15/2017 10:36 AM Laboratory Results 12/15/17 09:05 Red Blood Count 4.26, Mean Corpuscular Volume 77.0, Mean Corpuscular Hemoglobin 24.2, Mean Corpuscular Hemoglobin Concent 31.4, Mean Platelet Volume 9.7, Neutrophils (%) (Auto) 67.2, Lymphocytes (%) (Auto) 18.6, Monocytes (%) (Auto) 7.7, Eosinophils (%) (Auto) 5.9, Basophils (%) (Auto) 0.2, Neutrophils # (Auto) 3.66, Lymphocytes # (Auto) 1.01, Monocytes # (Auto) 0.42, Eosinophils # (Auto) 0.32, Basophils # (Auto) 0.01 12/15/17 09:05 Test 12/15/17 09:05 White Blood Count 5.44 K/uL (4.8-10.8) Red Blood Count 4.26 M/uL (4.2-5.4) Hemoglobin 10.3 g/dL (12.0-16.0) Hematocrit 32.8 % (37-47) Mean Corpuscular Volume 77.0 fL (80-100) Mean Corpuscular Hemoglobin 24.2 pg (25-34) Mean Corpuscular Hemoglobin Concent 31.4 g/dl (32-36) Platelet Count 183 K/uL (130-400) Mean Platelet Volume 9.7 fL (7.4-10.4) Neutrophils (%) (Auto) 67.2 % Lymphocytes (%) (Auto) 18.6 % Monocytes (%) (Auto) 7.7 % Eosinophils (%) (Auto) 5.9 % Basophils (%) (Auto) 0.2 % Neutrophils # (Auto) 3.66 K/uL (1.4-6.5) Lymphocytes # (Auto) 1.01 K/uL (1.2-3.4) Monocytes # (Auto) 0.42 K/uL (0.11-0.59) Eosinophils # (Auto) 0.32 K/uL (0-0.5) Basophils # (Auto) 0.01 K/uL (0-0.2) RDW Standard Deviation 46.1 fL (36.4-46.3) RDW Coefficient of Variation 17.4 % (11.5-14.5) Immature Granulocyte % (Auto) 0.4 % Immature Granulocyte # (Auto) 0.02 K/uL (0.00-0.02) Prothrombin Time 32.2 SECONDS (9.0-12.0) Prothromb Time International Ratio 3.1 (0.9-1.1) Activated Partial Thromboplast Time 33.1 SECONDS (21.0-31.0) Partial Thromboplastin Ratio 1.3 Anion Gap 10.0 mmol/L (3-11) Estimated GFR () 110.0 Estimated GFR (Non- 94.9 BUN/Creatinine Ratio 13.1 (10-20) Calcium Level 7.8 mg/dl (8.5-10.1) Total Bilirubin 0.7 mg/dl (0.2-1) Direct Bilirubin 0.2 mg/dl (0-0.2) Aspartate Amino Transf (AST/SGOT) 10 U/L (15-37) Alanine Aminotransferase (ALT/SGPT) 15 U/L (12-78) Alkaline Phosphatase 81 U/L (45-117) Total Protein 6.3 gm/dl (6.4-8.2) Albumin 2.6 gm/dl (3.4-5.0) Lipase 146 U/L (73-393) Laboratory results reviewed by me Medications Administered Medications (Trade) Dose Ordered Sig/Viviana Route Start Time Stop Time Status Last Admin Dose Admin Sodium Chloride 1,000 ml @ 999 mls/hr Q1H1M STAT IV 12/15/17 08:51 12/15/17 09:51 DC 12/15/17 08:51 999 MLS/HR Calcium Carbonate (Tums Chew Tab) 1,500 mg ONE STAT PO 12/15/17 10:30 12/15/17 10:32 DC 12/15/17 10:54 1,500 MG Potassium Chloride (Klor-Con Tab) 40 meq NOW STAT PO 12/15/17 10:30 12/15/17 10:32 DC 12/15/17 10:54 40 MEQ Pantoprazole Sodium 80 mg/ Dextrose 120 ml @ 480 mls/hr NOW STAT IV 12/15/17 10:31 12/15/17 10:45 DC 12/15/17 10:53 480 MLS/HR Pantoprazole Sodium 40 mg/ Dextrose 100 ml @ 20 mls/hr Q5H IV 12/15/17 10:46 12/15/17 15:45 12/15/17 10:53 20 MLS/HR ECG Per My Interpretation Indication: weakness Rate (beats per minute): 93 Rhythm: atrial fibrillation Findings: other (normal axis, low voltage QRS) Change: Patient's electrocardiogram interpreted by me. ED Course 0845: The patient was evaluated in room B10. A complete history and physical exam was performed. 1049: I discussed the patients case with Dr. Hinton, [facility] Hospitalist. The patient will be further evaluated and he recommends I also contact general surgery. 1059: I discussed the patients case with Yolanda Cortez PA-C with [facility]. The patient will be further evaluated. 1105: I reevaluated the patient. She is resting. I discussed my recommendation she remain in the hospital for further evaluation and management and she verbalized complete understanding and agreement. Medical Decision The patient is a 52 year old white female with a past medical history of asthma , DM, GERD, hypertension and atrial fibrillation on Coumadin, who presents to the ED with a cc of persistent rectal bleeding beginning yesterday. Triage Nursing notes reviewed. The patient's presentation and history were concerning for []. Prior records were reviewed. The patient did have a recent admission for possible infection of the abdominal wall. Patient did have a history of metastatic colon cancer with metastases to the long and the patient did have a partial colectomy status post ileostomy and recent reversal. Patient was seen in clinic by Dr. Rogers within the last week per the patient she did have some abdominal packing placed. She was seen and evaluated the bedside. Patient did complain of some rectal bleeding that been ongoing 2 days. Discharge summary did state that the patient was on Eliquis however, the patient states that she has been taking Coumadin because she was unable to afford Eliquis. Patient denies any dizziness or lightheadedness. On exam the patient does have dark blood from the rectum. Patient does have a prior history of colon cancer and a recent procedure. A CT of the abdomen pelvis was obtained along with additional blood work. Patient's hemoglobin is actually improved from prior. Unsure as to whether or not she may be hemoconcentrated. Patient's INR is supratherapeutic at 3.1. Will hold for now. Patient does not have an elevated white count. Patient does have an elevated glucose. Bicarb and anion gap are normal. Patient does have mild hypokalemia and hypocalcemia. This was repleted. Patient CT does continue to show phlegmon. I did discuss the patient with the on-call hospitalist who agreed to further evaluate treat the patient. Surgery was consulted and I did discuss the concerns. Patient was given Augmentin as this is what she was placed on as an outpatient. This was also given as the patient has a vancomycin and clindamycin allergy. Patient was admitted to the medicine service. Medication Reconcilliation Current Medication List: was personally reviewed by me Blood Pressure Screening Patient's blood pressure: Normal blood pressure Blood pressure disposition: Did not require urgent referral Consults Time Called: 1047 Consulting Physician: Dr. Hinton, [facility] Hospitalist Returned Call: 1047 I discussed the patients case with Dr. Hinton [facility] Hospitalist. The patient will be further evaluated and he recommends I also contact general surgery. Additional Consults: Time Called: 1055 Consulted Physician: Yolanda Cortez PA-C, [facility] Returned Call: 1056 Additional Comments: I discussed the patients case with Yolanda Cortez PA-C with [facility]. The patient will be further evaluated. Impression Primary Impression: Rectal bleeding Additional Impressions: Supratherapeutic INR Hypokalemia Hypocalcemia Hyperglycemia Anemia Scribe Attestation The scribe's documentation has been prepared under my direction and personally reviewed by me in its entirety. I confirm that the note above accurately reflects all work, treatment, procedures, and medical decision making performed by me. Departure Information Dispostion Being Evaluated By Hospitalist Referrals Madison Vivar M.D. (PCP) Patient Instructions My [facility] Problem Qualifiers Additional Impressions: Anemia Anemia type: unspecified type Qualified Codes: D64.9 - Anemia, unspecified
[2017-12-15 09:18] LABS: BASO % 0.2 %; BASO ABS # 0.01 K/uL (0-0.2); EOS % 5.9 %; EOS ABS # 0.32 K/uL (0-0.5); HEMATOCRIT 32.8 % (37-47); HEMOGLOBIN 10.3 g/dL (12.0-16.0); IG# 0.02 K/uL (0.00-0.02); LYMPH % 18.6 %; LYMPH ABS # 1.01 K/uL (1.2-3.4); MEAN CORPUSCULAR HEMOGLOBIN 24.2 pg (25-34); MEAN CORPUSCULAR HGB CONC 31.4 g/dl (32-36); MEAN PLATELET VOLUME 9.7 fL (7.4-10.4); MONO % 7.7 %; MONO ABS # 0.42 K/uL (0.11-0.59); NEUT % 67.2 %; NEUT ABS # 3.66 K/uL (1.4-6.5); PLATELET COUNT 183 K/uL (130-400); RED CELL DISTRIBUTION WIDTH CV 17.4 % (11.5-14.5); RED CELL DISTRIBUTION WIDTH SD 46.1 fL (36.4-46.3); WHITE BLOOD COUNT 5.44 K/uL (4.8-10.8)
[2017-12-15 09:28] LABS: INR 3.1 (0.9-1.1); PTT PATIENT 33.1 SECONDS (21.0-31.0)
[2017-12-15] MEDS ORDERED: OPTIRAY 320 IV PRN (09:30)
[2017-12-15 09:33] LABS: ALBUMIN 2.6 gm/dl (3.4-5.0); ALT/SGPT 15 U/L (12-78); BLOOD UREA NITROGEN 9 mg/dl (7-18); CALCIUM 7.8 mg/dl (8.5-10.1); CARBON DIOXIDE 27 mmol/L (21-32); CREATININE 0.72 mg/dl (0.60-1.20); GLUCOSE 260 mg/dl (70-99); LIPASE 146 U/L (73-393); POTASSIUM 3.1 mmol/L (3.5-5.1); SODIUM 138 mmol/L (136-145)
[2017-12-15 09:36] LABS: ALKALINE PHOSPHATASE 81 U/L (45-117); AST/SGOT 10 U/L (15-37); TOTAL PROTEIN 6.3 gm/dl (6.4-8.2)
[2017-12-15] MEDS ORDERED: CALCIUM CARBONATE 500 MG CHEWABLE PO STA (10:30)
[2017-12-15] MEDS ORDERED: POTASSIUM CHLORIDE 20 MEQ TABCR PO STA (10:30)
[2017-12-15] MEDS ORDERED: PANTOprazole INJ 80 MG in DEXTROSE 5% 100ML IV STA (10:31)
--- NOTE | 2017-12-15 10:37 | DIAGNOSTIC IMAGING REPORT ---
ABD/PELVIS IV CONTRAST ONLY CT DOSE: 1211.62 mGy.cm HISTORY: Pain. h/o met CC s/p ileostomy and recent reversal w/ rectal bleeding TECHNIQUE: Multiaxial CT images of the abdomen and pelvis were performed following the use of intravenous contrast. A dose lowering technique was utilized adhering to the principles of ALARA. COMPARISON STUDY: 11/04/2017 FINDINGS: Interval development of a small left pleural effusion with left basilar atelectatic change. Radiopaque material is present possibly from resection of the frantz processes left lung base. Mild heterogeneity of the liver of uncertain significance. This potentially is technical. Spleen is unremarkable. The adrenal glands are within normal limits. The kidneys enhance appropriately. There has been interval reversal of the patient's right sided anterior ostomy. At the ostomy site is a complex solid/semisolid collection including air which potentially represents a postoperative phlegmon is type process. This measures 6.5 x 3.5 cm. A drainable pocket percutaneously is not felt to be present. There is a small amount of postoperative air and soft tissue within the deep periumbilical region. This is similar as compared to the prior study. Operative changes consistent with a low sigmoid resection are again noted. The presacral soft tissue is unchanged. No evidence for drainable abscess or collection. Bowel pattern is nonobstructive. IMPRESSION: 1. Interval reversal of the patient's right-sided ostomy. 2. Residual complex air/debris phlegmon type process combined with what appears to be potential mesh placement within the subcutaneous fat at the ostomy reversal site measuring 6.5 x 3.5 cm. 3. Unchanging presacral soft tissue. 4. Interval postoperative changes of what appear to be the left lung base with a small residual pleural effusion and basilar atelectatic change. The above report was generated using voice recognition software. It may contain grammatical, syntax or spelling errors. Electronically signed by: Iker Avelar M.D. 12/15/2017 10:36 AM Dictated Date/Time: 12/15/2017 10:26 AM
[2017-12-15] MEDS ORDERED: PANTOprazole INJ 40 MG in DEXTROSE 5% 100ML IV SCH (10:46)
[2017-12-15] MEDS ORDERED: AMOXICILLIN/CLAVULANATE TAB 875 MG TAB PO ONE (11:00)
[2017-12-15 11:30] VITALS: O2SAT 97; Ht 152.4 cm; Wt 88.9 kg
[2017-12-15] MEDS ORDERED: NITROGLYCERIN 0.4 MG SL PER TAB CHARGE SL PRN (11:30)
[2017-12-15] MEDS ORDERED: ONDANSETRON INJ 2 MG/ML 2 ML VIAL IV PRN (11:30)
[2017-12-15] MEDS ORDERED: POLYETHYLENE (MIRALAX) 17 GM PACK PO PRN (11:30)
[2017-12-15] MEDS ORDERED: ALBUTEROL HFA 8 GM INHALER INH PRN (11:30)
[2017-12-15] MEDS ORDERED: OXYCODONE HCL IR 5 MG TAB (IMMEDIATE RELEASE) PO PRN (11:30)
[2017-12-15] MEDS ORDERED: MAGNESIUM HYDROXIDE SUSP 30 ML UDC PO PRN (11:30)
[2017-12-15] MEDS ORDERED: ACETAMINOPHEN 325 MG TAB PO PRN (11:30)
[2017-12-15] MEDS ORDERED: MoRPHine SULFATE 2 MG/ML CARP IV PRN (11:30)
[2017-12-15] MEDS ORDERED: ALUMINUM/MAGNESIUM/SIMETH (MAALOX MAX) 30 ML UDC PO PRN (11:30)
--- NOTE | 2017-12-15 12:18 | History and Physical ---
History & Physical Date & Time of Service: Dec 15, 2017 at 11:40 Chief Complaint: Bleeding From Rectum Primary Care Physician: Madison Vivar M.D. History of Present Illness Source: patient, family (), clinic records, hospital records Patient is a pleasant 52 y/o female, with PMHx of asthma, metastatic colon cancer to lung, a.fib on Coumadin, DM II, HTN, HLD, hypothyroidism, ANA on CPAP , morbid obesity, and depression, who presented to the ED because of rectal bleeding x1 day. Patient states bleeding is bright red with clots. She was diagnosed with c.diff on 12/13. She cannot tell me which medication she was placed on for c.diff- h/o Vancomycin allergy, when questioned patient about allergy she stated ,"I don't know." She did not take her Coumadin yesterday or today. INR 3.1 today. She is s/p colectomy w/ ostomy on 10/18 and s/p ostomy reversal on 11/[address] Rogers. She was seen by Dr. Rogers for abdominal wound drainage yesterday. He packed site and placed her on Augmentin. She follows w/ Dr. Quintana for cancer- next scheduled treatment is on 12/20. She is otherwise feeling well. Patient denies any fever, chills, sweats, lightheadedness, dizziness, vision changes, CP, palpitations, edema, SOB, wheezing, cough, abdominal pain, nausea, vomiting, urinary symptoms, melena, numbness/tingling, weakness, muscle/joint pain, anxiety/depression, or new skin discoloration/changes. Past Medical/Surgical History Medical Problems: asthma metastatic colon cancer to lung a.fib on Coumadin DM II HTN HLD hypothyroidism ANA on CPAP morbid obesity depression Surgical Problems: History of carpal tunnel surgery History of hysterectomy History of tonsillectomy and adenoidectomy History of tubal ligation Hx of total knee arthroplasty s/p colectomy and ostomy site on 10/18/[address] Rogers s/p ostomy reversal on 11/13/[address] Rogers s/p bronchoscopy on 11/08/[address] Delatorre Family History Diabetes mellitus FH: heart disease FH: lung disease Hypertension Seizures Social History Smoking Status: Never Smoker Drug Use: none Marital Status: Housing status: lives with family Occupational Status: disabled Immunizations History of Influenza Vaccine: N/A Influenza Vaccine Date: Jun 19, 2011 History of Tetanus Vaccine?: Yes History of Pneumococcal: Yes Pneumococcal Date: February 23, 2011 History of Hepatitis B Vaccine: Yes Allergies Coded Allergies: Daptomycin (Verified Allergy, Severe, SHORTNESS OF BREATH, 12/15/17) 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 Clindamycin (Verified Allergy, Intermediate, HIVES, 12/15/17) Sulfa Antibiotics (Verified Allergy, Intermediate, BACTRIM-HIVES, 12/15/17) Vancomycin (Verified Allergy, Intermediate, RASH, 12/15/17) BEE STING (Verified Allergy, Unknown, HIVES, 12/15/17) Trimethoprim (Verified Allergy, Unknown, HIVES, 12/15/17) Dulaglutide (Verified Adverse Reaction, Severe, BRAND-TRULICITY, SEVERE GI UPSET, CONSTIPATION, 12/15/17) Home Medications Scheduled Atorvastatin (Lipitor), 20 MG PO HS Cholestyramine (Bulk) (Cholestyramine), 1 PKT DAILY Famotidine (Pepcid), 20 MG PO DAILY Fluticasone Furoate-Vilanterol (Breo Ellipta 200-25 Mcg/INH), 1 PUFF INH QAM Furosemide (Lasix), 20 MG PO QAM Insulin Aspart (Novolog), UNITS SQ TIDM Insulin Glargine (Toujeo Solostar), 9 UNITS SQ DAILY Ipratropium-Albuterol (Combivent Respimat), 1 PUFFS INH QID Lactobacillus Acidophilus (Lactinex), 4 TAB PO TID Levothyroxine Sodium (Levothyroxine Sodium), 6 TAB PO DAILY Lisinopril (Lisinopril), 5 MG PO QAM Loratadine (Claritin), 10 MG PO QAM Magnesium Oxide (Mag-Ox), 400 MG PO DAILY Metoprolol Succinate (Toprol Xl), 25 MG PO DAILY Montelukast Sod (Montelukast Sodium), 10 MG PO HS Potassium Chloride (Micro-K Ext Rel), 10 MEQ PO QAM Scheduled PRN Albuterol Hfa (Ventolin Hfa), 2-4 PUFFS INH Q6H PRN for ASTHMA Ondansetron Hcl (Zofran), 8 MG PO Q6 PRN for Nausea Oxycodone HCl (Oxycodone HCl), 5-10 MG PO Q4H PRN for Pain Oxycodone/Acetaminophen 5MG/325MG (Percocet 5MG/325MG), 1 TABLETS PO Q12H PRN for Pain Physical Exam Vital Signs Date Time Temp Pulse Resp B/P (MAP) Pulse Ox O2 Delivery O2 Flow Rate FiO2 12/15/17 10:55 86 18 107/80 97 Room Air 12/15/17 10:10 86 18 104/62 97 Room Air 12/15/17 09:48 86 18 110/71 97 Room Air 12/15/17 09:28 96 Room Air 12/15/17 09:25 92 12/15/17 08:37 37.2 94 18 115/77 98 Room Air General Appearance: no apparent distress, + obese Head: normocephalic, atraumatic Eyes: normal inspection, PERRL ENT: hearing grossly normal Neck: supple Respiratory/Chest: lungs clear, no respiratory distress, no accessory muscle use Cardiovascular: + irregularly irregular (rate controlled) Abdomen/GI: normal bowel sounds, soft, + pertinent finding (abdominal wound site in dressing ) Back: normal inspection Extremities/Musculoskelatal: no calf tenderness, no pedal edema Neurologic/Psych: alert, normal mood/affect, oriented x 3 Skin: normal color, warm/dry, no rash Diagnostics Laboratory Results Results Past 24 Hours Test 12/15/17 09:05 Range/Units White Blood Count 5.44 4.8-10.8 K/uL Red Blood Count 4.26 4.2-5.4 M/uL Hemoglobin 10.3 12.0-16.0 g/dL Hematocrit 32.8 37-47 % Mean Corpuscular Volume 77.0 80-100 fL Mean Corpuscular Hemoglobin 24.2 25-34 pg Mean Corpuscular Hemoglobin Concent 31.4 32-36 g/dl Platelet Count 183 130-400 K/uL Mean Platelet Volume 9.7 7.4-10.4 fL Neutrophils (%) (Auto) 67.2 % Lymphocytes (%) (Auto) 18.6 % Monocytes (%) (Auto) 7.7 % Eosinophils (%) (Auto) 5.9 % Basophils (%) (Auto) 0.2 % Neutrophils # (Auto) 3.66 1.4-6.5 K/uL Lymphocytes # (Auto) 1.01 1.2-3.4 K/uL Monocytes # (Auto) 0.42 0.11-0.59 K/uL Eosinophils # (Auto) 0.32 0-0.5 K/uL Basophils # (Auto) 0.01 0-0.2 K/uL RDW Standard Deviation 46.1 36.4-46.3 fL RDW Coefficient of Variation 17.4 11.5-14.5 % Immature Granulocyte % (Auto) 0.4 % Immature Granulocyte # (Auto) 0.02 0.00-0.02 K/uL Prothrombin Time 32.2 9.0-12.0 SECONDS Prothromb Time International Ratio 3.1 0.9-1.1 Activated Partial Thromboplast Time 33.1 21.0-31.0 SECONDS Partial Thromboplastin Ratio 1.3 Sodium Level 138 136-145 mmol/L Potassium Level 3.1 3.5-5.1 mmol/L Chloride Level 101 98-107 mmol/L Carbon Dioxide Level 27 21-32 mmol/L Anion Gap 10.0 3-11 mmol/L Blood Urea Nitrogen 9 7-18 mg/dl Creatinine 0.72 0.60-1.20 mg/dl Estimated GFR () 110.0 Estimated GFR (Non- 94.9 BUN/Creatinine Ratio 13.1 10-20 Random Glucose 260 70-99 mg/dl Calcium Level 7.8 8.5-10.1 mg/dl Total Bilirubin 0.7 0.2-1 mg/dl Direct Bilirubin 0.2 0-0.2 mg/dl Aspartate Amino Transf (AST/SGOT) 10 15-37 U/L Alanine Aminotransferase (ALT/SGPT) 15 12-78 U/L Alkaline Phosphatase 81 45-117 U/L Total Protein 6.3 6.4-8.2 gm/dl Albumin 2.6 3.4-5.0 gm/dl Lipase 146 73-393 U/L Diagnostic Radiology ABD/PELVIS IV CONTRAST ONLY CT DOSE: 1211.62 mGy.cm HISTORY: Pain. h/o met CC s/p ileostomy and recent reversal w/ rectal bleeding TECHNIQUE: Multiaxial CT images of the abdomen and pelvis were performed following the use of intravenous contrast. A dose lowering technique was utilized adhering to the principles of ALARA. COMPARISON STUDY: 11/04/2017 FINDINGS: Interval development of a small left pleural effusion with left basilar atelectatic change. Radiopaque material is present possibly from resection of the frantz processes left lung base. Mild heterogeneity of the liver of uncertain significance. This potentially is technical. Spleen is unremarkable. The adrenal glands are within normal limits. The kidneys enhance appropriately. There has been interval reversal of the patient's right sided anterior ostomy. At the ostomy site is a complex solid/semisolid collection including air which potentially represents a postoperative phlegmon is type process. This measures 6.5 x 3.5 cm. A drainable pocket percutaneously is not felt to be present. There is a small amount of postoperative air and soft tissue within the deep periumbilical region. This is similar as compared to the prior study. Operative changes consistent with a low sigmoid resection are again noted. The presacral soft tissue is unchanged. No evidence for drainable abscess or collection. Bowel pattern is nonobstructive. IMPRESSION: 1. Interval reversal of the patient's right-sided ostomy. 2. Residual complex air/debris phlegmon type process combined with what appears to be potential mesh placement within the subcutaneous fat at the ostomy reversal site measuring 6.5 x 3.5 cm. 3. Unchanging presacral soft tissue. 4. Interval postoperative changes of what appear to be the left lung base with a small residual pleural effusion and basilar atelectatic change. The above report was generated using voice recognition software. It may contain grammatical, syntax or spelling errors. Electronically signed by: Iker Avelar M.D. 12/15/2017 10:36 AM Dictated Date/Time: 12/15/2017 10:26 AM The status of this report is Signed. Draft = Not yet reviewed or approved by Radiologist. Signed = Reviewed and approved by Radiologist. EKG PEGGYDERRELL ID:[id number] 15-DEC-2017 09:13:56 [facility] Poor data quality, interpretation may be adversely affected Atrial fibrillation Low voltage QRS ST & T wave abnormality, consider inferolateral ischemia Abnormal ECG When compared with ECG of 14-NOV-2017 06:57, QT has lengthened Confirmed by DO EVANS ([id number]) on 12/15/2017 9:23:55 AM 25mm/s 10mm/mV 150Hz 8.0 SP2 12SL 241 MARY JO: 10 Referred by: Confirmed By: DO EAVNS Vent. rate 93 BPM HI interval * ms QRS duration 80 ms QT/QTc 376/467 ms P-R-T axes * 42 234 1965 (52 yr) Female 97in 1lb Room: Loc: Conference And Event Organiser:RANDY Ballard ind: Impression Assessment and Plan Patient is a pleasant 52 y/o female, with PMHx of asthma, metastatic colon cancer to lung, a.fib on Coumadin, DM II, HTN, HLD, hypothyroidism, ANA on CPAP , morbid obesity, and depression, who presented to the ED because of rectal bleeding x1 day. GI bleed: - Admit to tele for cardiac monitoring - Trend H&H q6hrs - currently stable at 10.3 - IV Protonix gtt - Hold Coumadin - IVF @ 100 ml/hr - Will keep NPO until seen by consultants - Consulted General surgery, appreciate recommendations - Consult GI, appreciate recommendations C.diff- diagnosed on 12/13- per patient, first episode: - IV Flagyl TID due to Vancomycin allergy - Continue Probiotics - Contact precautions Abdominal wound s/p ostomy reversal on 11/13: - Wound care consulted, appreciate recommendations - Obtain wound culture - Continue Augmentin BID- will need to extend c.diff treatment Hypokalemia: Replace w/ KCL supplement, continue KCL 10 mEq daily- follow PRP and replace PRN Metastatic colon cancer to lung- follows w/ Dr. Quintana: - Scheduled for next chemotherapy treatment on 12/20 - s/p resection and ostomy site on 10/18, s/p ostomy reversal on 11/[address] Rogers - s/p bronchoscopy on 11/[address] Halina Martinfib- rate controlled, HTN, HLD: - Hold Coumadin- supratherapeutic today at 3.1- follow PT/INR - Continue Metoprolol w/ hold parameters, Lipitor - Mag-Ox supplement- check mag level due to diarrhea - Hold Lisinopril and Lasix due to low/normal BPs and IVF treatment at above T2DM- hgbA1c 10.3% in 10/2017: - Continue Toujeo 9 u SQ daily - BSG ACHS and ISS Hypothyroidism- TSH WNL in 10/2017: Continue Synthroid Asthma- STABLE, ANA: - Continue home inhalers - Continue CPAP HS GI prophylaxis: Protonix DVT prophylaxis: TEDs/SCDs; chemical anticoagulation contraindicated due to GI bleed Code status: LEVEL I, FULL Dispo: From home, lives w/ - PT/OT and CM consulted i personally examined pt and verified all aguirre points w T Murarik PAC no further bleeding since ER notes dtr also wanted wound on lateral chest wall looked at vitals noted nad anxious but no distress, pleasant L lateral chest wall behind L breast ~0.75 x 0.5cm open ulceration that appears to go to dermis, thin exudate lining this but no expressible exudate no fluctuance no crepitis and no surrounding erythema abd soft nd nt, wound with thin exudate from packing, no surrounding erythema here as well GI bleed - most likely diverticular or anastomotic. supportive care, follow; reverse if rebleeds but for now appearing to be stabilizing and will simply hold coumadin and follow. GI eval pending, likely to need colo at some point abdominal and chest wall wounds - local wound care, surgery evals Cdiff colitis - flagyl, supportive care otherwise as above Resuscitation Status LEVEL I, FULL VTE Prophylaxis Will order VTE Prophylaxis: Yes
[2017-12-15 12:29] VITALS: BP 118/85; PULSE 89; TEMP 37.3; O2SAT 100
[2017-12-15] MEDS ORDERED: GLUCOSE 10 TABS/TUBE PO PRN (13:15)
[2017-12-15] MEDS ORDERED: GLUCAGON FOR INJ 1 MG VIAL SQ PRN (13:15)
[2017-12-15] MEDS ORDERED: GLUCOSE 40% GEL 15 GM TUBE PO PRN (13:15)
[2017-12-15] MEDS ORDERED: DEXTROSE 50% 50 ML SYR IV PRN (13:15)
[2017-12-15] MEDS ORDERED: INSULIN GLARGINE SOLOSTAR 100 UNITS/ML 3 ML PEN SQ SCH (13:30)
[2017-12-15] MEDS: NSS + 20MEQ KCL 1000ML 1,000 ML IV SCH (13:45)
[2017-12-15] MEDS: IPRATROPIUM BROMIDE/ALBUTEROL respimat INH INH SCH ×3 (13:48→21:14)
[2017-12-15] MEDS: MAGNESIUM SULFATE 1GM / D5W 1 GM in PREMIXED IN D5W 100 ML IV SCH ×2 (13:51→16:50)
[2017-12-15] MEDS: METRONIDAZOLE / NSS 500 MG in PREMIXED NSS 100 ML IV SCH ×2 (15:14→21:16)
[2017-12-15 15:15] VITALS: BP 107/58; PULSE 78; TEMP 36.7; O2SAT 93
[2017-12-15 15:57] LABS: HEMATOCRIT 29.6 % (37-47); HEMOGLOBIN 9.2 g/dL (12.0-16.0)
[2017-12-15] MEDS: PANTOprazole INJ 40 MG in DEXTROSE 5% 100ML IV SCH ×2 (16:08→21:13)
[2017-12-15] MEDS: INSULIN ASPART 100 UNITS/ML 3 ML PEN SC SCH ×2 (16:51→20:25)
[2017-12-15] MEDS: AMOXICILLIN/CLAVULANATE TAB 875 MG TAB PO SCH (16:52)
[2017-12-15] MEDS: LACTOBACILLUS ACIDOPHILUS (FLORANEX) TAB PO SCH (16:54)
[2017-12-15 19:43] VITALS: BP 114/73; PULSE 82; TEMP 37; O2SAT 97
[2017-12-15 20:57] LABS: HEMATOCRIT 29.6 % (37-47); HEMOGLOBIN 9.2 g/dL (12.0-16.0)
[2017-12-15] MEDS: FLUTICASONE FUROATE SCH (21:00)
[2017-12-15] MEDS: VILANTEROL SCH (21:00)
[2017-12-15] MEDS: ATORVASTATIN 20 MG TAB PO SCH (21:15)
[2017-12-15] MEDS: MONTELUKAST SOD 10 MG TAB PO SCH (21:16)
[2017-12-15 22:14] VITALS: PULSE 98; O2SAT 96
[2017-12-15] MEDS: OXYCODONE/ACETAMINOPHEN 5-325 TAB PO PRN (22:38)
[2017-12-15 23:32] VITALS: BP 107/66; PULSE 89; TEMP 37; O2SAT 96
[2017-12-16] VITALS (7 sets, daily range): BP systolic 100–119; BP diastolic 57–85; PULSE 78–97; TEMP 36.5–37.5; O2SAT 93–98
[2017-12-16] MEDS: PANTOprazole INJ 40 MG in DEXTROSE 5% 100ML IV SCH ×2 (02:17→07:30)
[2017-12-16 03:13] LABS: HEMATOCRIT 29.6 % (37-47); HEMOGLOBIN 9.4 g/dL (12.0-16.0); MEAN CELL VOLUME 77.7 fL (80-100); MEAN CORPUSCULAR HEMOGLOBIN 24.7 pg (25-34); MEAN CORPUSCULAR HGB CONC 31.8 g/dl (32-36); MEAN PLATELET VOLUME 8.9 fL (7.4-10.4); PLATELET COUNT 171 K/uL (130-400); RED CELL DISTRIBUTION WIDTH CV 17.6 % (11.5-14.5); RED CELL DISTRIBUTION WIDTH SD 47.7 fL (36.4-46.3); WHITE BLOOD COUNT 5.36 K/uL (4.8-10.8)
[2017-12-16 03:23] LABS: INR 2.4 (0.9-1.1)
[2017-12-16 03:42] LABS: CALCIUM 7.7 mg/dl (8.5-10.1); CREATININE 0.62 mg/dl (0.60-1.20); POTASSIUM 3.4 mmol/L (3.5-5.1)
[2017-12-16] MEDS: NSS + 20MEQ KCL 1000ML 1,000 ML IV SCH (04:24)
[2017-12-16] MEDS: METRONIDAZOLE / NSS 500 MG in PREMIXED NSS 100 ML IV SCH ×3 (05:50→21:21)
[2017-12-16] MEDS: LEVOTHYROXINE 200 MCG TAB PO SCH (05:50)
[2017-12-16] MEDS ORDERED: POTASSIUM CHLORIDE 10 MEQ TABCR PO STA (08:06)
[2017-12-16] MEDS: INSULIN ASPART 100 UNITS/ML 3 ML PEN SC SCH ×4 (08:08→21:31)
[2017-12-16] MEDS: INSULIN GLARGINE SOLOSTAR 100 UNITS/ML 3 ML PEN SQ SCH (08:08)
[2017-12-16] MEDS: IPRATROPIUM BROMIDE/ALBUTEROL respimat INH INH SCH ×4 (08:09→21:24)
[2017-12-16] MEDS: LACTOBACILLUS ACIDOPHILUS (FLORANEX) TAB PO SCH ×3 (08:09→17:00)
[2017-12-16] MEDS: VILANTEROL SCH ×2 (08:09→21:52)
[2017-12-16] MEDS: FLUTICASONE FUROATE SCH ×2 (08:09→21:52)
[2017-12-16] MEDS: AMOXICILLIN/CLAVULANATE TAB 875 MG TAB PO SCH ×2 (08:09→16:59)
[2017-12-16] MEDS: POTASSIUM CHLORIDE 10 MEQ TABCR PO SCH (08:10)
[2017-12-16] MEDS: MAGNESIUM OXIDE 400 MG TAB PO SCH (08:10)
[2017-12-16] MEDS: LORATADINE 10 MG TAB PO SCH (08:10)
[2017-12-16] MEDS: METOPROLOL SUCC 25MG EXT REL TAB PO SCH (08:11)
--- NOTE | 2017-12-16 10:18 | Surgery Consultation ---
Consultation Date of Consultation: Dec 16, 2017. Attending Physician: Radha Dash MD History of Present Illness pt well known to me. I had just seen her in the office 1 day prior to admission. s/p recent LAR for colorectal cancer. presented with rectal bleeding. recently diagnosed with c.diff colitis. Past Medical/Surgical History Medical Problems: (1) Abdominal pain Status: Acute (2) Abscess of labia majora Status: Acute (3) Acute vomiting Status: Acute (4) Cellulitis of labia majora Status: Acute (5) Hyperglycemia Status: Acute (6) Hyperglycemia Status: Acute (7) Hyperglycemia due to type 2 diabetes mellitus Status: Acute (8) Hypertension Status: Acute (9) Hypocalcemia Status: Acute (10) Hypokalemia Status: Acute (11) Low back pain Status: Acute (12) Morbid obesity Status: Acute (13) New onset a-fib Status: Acute (14) Pulmonary nodule Status: Acute (15) Rectal bleed Status: Acute (16) Rectal bleeding Status: Acute (17) Rectal bleeding Status: Acute (18) Rectal cancer Status: Acute (19) Sepsis Status: Acute (20) Shortness of breath Status: Acute (21) Skin abscess Status: Acute (22) Supratherapeutic INR Status: Acute (23) Urinary tract infection Status: Acute Family History Diabetes mellitus FH: heart disease FH: lung disease Hypertension Seizures Social History Smoking Status: Never Smoker Drug Use: none Marital Status: Housing Status: lives with significant other Occupation Status: disabled Allergies Coded Allergies: Daptomycin (Verified Allergy, Severe, SHORTNESS OF BREATH, 12/15/17) 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 Clindamycin (Verified Allergy, Intermediate, HIVES, 12/15/17) Sulfa Antibiotics (Verified Allergy, Intermediate, BACTRIM-HIVES, 12/15/17) Vancomycin (Verified Allergy, Intermediate, RASH, 12/15/17) BEE STING (Verified Allergy, Unknown, HIVES, 12/15/17) Trimethoprim (Verified Allergy, Unknown, HIVES, 12/15/17) Dulaglutide (Verified Adverse Reaction, Severe, BRAND-TRULICITY, SEVERE GI UPSET, CONSTIPATION, 12/15/17) Home Medications Scheduled Atorvastatin (Lipitor), 20 MG PO HS Cholestyramine (Bulk) (Cholestyramine), 1 PKT DAILY Famotidine (Pepcid), 20 MG PO DAILY Fluticasone Furoate-Vilanterol (Breo Ellipta 200-25 Mcg/INH), 1 PUFF INH QAM Furosemide (Lasix), 20 MG PO QAM Insulin Aspart (Novolog), UNITS SQ TIDM Insulin Glargine (Toujeo Solostar), 9 UNITS SQ DAILY Ipratropium-Albuterol (Combivent Respimat), 1 PUFFS INH QID Lactobacillus Acidophilus (Lactinex), 4 TAB PO TID Levothyroxine Sodium (Levothyroxine Sodium), 6 TAB PO DAILY Lisinopril (Lisinopril), 5 MG PO QAM Loratadine (Claritin), 10 MG PO QAM Magnesium Oxide (Mag-Ox), 400 MG PO DAILY Metoprolol Succinate (Toprol Xl), 25 MG PO DAILY Montelukast Sod (Montelukast Sodium), 10 MG PO HS Potassium Chloride (Micro-K Ext Rel), 10 MEQ PO QAM Scheduled PRN Albuterol Hfa (Ventolin Hfa), 2-4 PUFFS INH Q6H PRN for ASTHMA Ondansetron Hcl (Zofran), 8 MG PO Q6 PRN for Nausea Oxycodone HCl (Oxycodone HCl), 5-10 MG PO Q4H PRN for Pain Oxycodone/Acetaminophen 5MG/325MG (Percocet 5MG/325MG), 1 TABLETS PO Q12H PRN for Pain Current Inpatient Medications Current Inpatient Medications Medications (Trade) Dose Ordered Sig/Viviana Route Start Time Stop Time Status Last Admin Dose Admin Ioversol (Optiray 320) 111 ml UD PRN IV 12/15/17 09:30 12/19/17 09:29 Acetaminophen (Tylenol Tab) 650 mg Q4H PRN PO 12/15/17 11:30 01/14/18 11:29 Al Hydrox/Mg Hydrox/Simethicone (Maalox Max Susp) 15 ml Q4H PRN PO 12/15/17 11:30 01/14/18 11:29 Magnesium Hydroxide (Milk Of Magnesia Susp) 30 ml Q12H PRN PO 12/15/17 11:30 01/14/18 11:29 Ondansetron HCl (Zofran Inj) 4 mg Q6H PRN IV 12/15/17 11:30 01/14/18 11:29 Nitroglycerin (Nitrostat Tab) 0.4 mg UD PRN SL 12/15/17 11:30 01/14/18 11:29 Morphine Sulfate (MoRPHine SULFATE INJ) 2 mg Q30M PRN IV 12/15/17 11:30 12/29/17 11:29 Polyethylene (Miralax Powder Packet) 17 gm DAILY PRN PO 12/15/17 11:30 01/14/18 11:29 Albuterol (Ventolin Hfa Inhaler) 2 puffs Q6H PRN INH 12/15/17 11:30 01/14/18 11:29 Atorvastatin Calcium (Lipitor Tab) 20 mg HS PO 12/15/17 21:00 01/14/18 20:59 12/15/17 21:15 20 MG Albuterol/ Ipratropium (Combivent Respimat Inh) 1 puffs QID INH 12/15/17 13:00 01/14/18 12:59 12/16/17 08:09 1 PUFFS Lactobacillus Acidophilus (Floranex Tab) 4 tab TIDM PO 12/15/17 16:45 01/14/18 17:59 12/16/17 08:09 4 TAB Levothyroxine Sodium (Synthroid Tab) 1,200 mcg DAILYBB PO 12/16/17 06:00 01/15/18 05:59 12/16/17 05:50 1,200 MCG Loratadine (Claritin Tab) 10 mg QAM PO 12/16/17 09:00 01/15/18 08:59 12/16/17 08:10 10 MG Magnesium Oxide (Mag-Ox Tab) 400 mg DAILY PO 12/16/17 09:00 01/15/18 08:59 12/16/17 08:10 400 MG Metoprolol Succinate (Toprol Xl Tab) 25 mg DAILY PO 12/16/17 09:00 01/15/18 08:59 12/16/17 08:11 25 MG Montelukast Sodium (Singulair Tab) 10 mg HS PO 12/15/17 21:00 01/14/18 20:59 12/15/17 21:16 10 MG Oxycodone HCl (Roxicodone Immediate Rel Tab) 5 mg Q4H PRN PO 12/15/17 11:30 12/29/17 11:29 Oxycodone/ Acetaminophen (Percocet 5-325mg Tab) 1 tab Q12H PRN PO 12/15/17 11:30 12/29/17 11:29 12/15/17 22:38 1 TAB Potassium Chloride (Klor-Con M10) 10 meq QAM PO 12/16/17 09:00 01/15/18 08:59 12/16/17 08:10 10 MEQ Miscellaneous Information (Order Awaiting Action) 1 ea BID N/A 12/15/17 21:00 01/14/18 20:59 Insulin Glargine (Lantus Solostar Pen) 9 units DAILY@0900 SQ 12/16/17 09:00 01/15/18 08:59 12/16/17 08:08 9 UNITS Insulin Aspart (novoLOG ASPART) SLIDING SCALE G... ACHS SC 12/15/17 16:00 01/14/18 15:59 12/16/17 08:08 3 UNITS Potassium Chloride/Sodium Chloride 1,000 ml @ 100 mls/hr Q10H IV 12/15/17 13:00 01/14/18 11:29 12/16/17 04:24 100 MLS/HR Metronidazole 500 mg/Prmx 100 ml @ 100 mls/hr Q8H IV 12/15/17 14:00 12/29/17 13:59 12/16/17 05:50 100 MLS/HR Amoxicillin/ Clavulanate Potassium (Augmentin Tab) 875 mg BIDM PO 12/15/17 16:45 12/25/17 17:59 12/16/17 08:09 875 MG Glucose (Glucose 40% Gel) 15-30 GRAMS 15 GRAMS... UD PRN PO 12/15/17 13:15 01/14/18 13:14 Glucose (Glucose Chew Tab) 4-8 Tablets 4 Tabl... UD PRN PO 12/15/17 13:15 01/14/18 13:14 Dextrose (Dextrose 50% 50ML Syringe) 25-50ML OF 50% DW IV FOR... UD PRN IV 12/15/17 13:15 01/14/18 13:14 Glucagon (Glucagon Inj) 1 mg UD PRN SQ 12/15/17 13:15 01/14/18 13:14 Pantoprazole Sodium 40 mg/ Dextrose 100 ml @ 20 mls/hr Q5H IV 12/15/17 16:00 01/14/18 15:59 12/16/17 07:30 20 MLS/HR Review of Systems Abdomen: + GI bleeding Physical Exam Date Time Temp Pulse Resp B/P (MAP) Pulse Ox O2 Delivery O2 Flow Rate FiO2 12/16/17 08:14 36.5 88 18 119/85 (96) 95 12/16/17 08:00 Room Air 12/16/17 04:00 Room Air 12/16/17 03:10 36.8 85 16 101/61 (74) 96 Room Air 12/16/17 00:00 Room Air 12/15/17 23:32 37.0 89 21 107/66 (80) 96 Room Air 12/15/17 22:14 98 96 21 12/15/17 20:00 Room Air 12/15/17 19:43 37.0 82 16 114/73 (87) 97 Room Air 12/15/17 16:00 Room Air 12/15/17 15:15 36.7 78 18 107/58 (74) 93 Room Air 12/15/17 12:30 Room Air 12/15/17 12:29 37.3 89 16 118/85 (96) 100 Room Air 12/15/17 12:16 80 18 118/73 97 Room Air 12/15/17 11:30 97 Room Air 12/15/17 10:55 86 18 107/80 97 Room Air General Appearance: no apparent distress Eyes: EOMI ENT: hearing grossly normal Neck: supple Respiratory/Chest: no respiratory distress, no accessory muscle use Abdomen/GI: non tender, soft, + pertinent finding (small wound with seroma improving since I last saw it. no signs of infection. ) Neurologic/Psych: alert, oriented x 3 Laboratory Results Last 24 Hours Test 12/15/17 13:35 12/15/17 15:31 12/15/17 16:29 12/15/17 20:20 Bedside Glucose 199 mg/dl 184 mg/dl 140 mg/dl Hemoglobin 9.2 g/dL Hematocrit 29.6 % Test 12/15/17 20:46 12/16/17 03:01 12/16/17 06:40 Hemoglobin 9.2 g/dL 9.4 g/dL Hematocrit 29.6 % 29.6 % White Blood Count 5.36 K/uL Red Blood Count 3.81 M/uL Mean Corpuscular Volume 77.7 fL Mean Corpuscular Hemoglobin 24.7 pg Mean Corpuscular Hemoglobin Concent 31.8 g/dl RDW Standard Deviation 47.7 fL RDW Coefficient of Variation 17.6 % Platelet Count 171 K/uL Mean Platelet Volume 8.9 fL Prothrombin Time 24.6 SECONDS Prothromb Time International Ratio 2.4 Sodium Level 137 mmol/L Potassium Level 3.4 mmol/L Chloride Level 105 mmol/L Carbon Dioxide Level 26 mmol/L Anion Gap 6.0 mmol/L Blood Urea Nitrogen 7 mg/dl Creatinine 0.62 mg/dl Est Creatinine Clear Calc Drug Dose 104.4 ml/min Estimated GFR () 118.5 Estimated GFR (Non- 102.2 BUN/Creatinine Ratio 11.5 Random Glucose 142 mg/dl Calcium Level 7.7 mg/dl Magnesium Level 1.8 mg/dl Bedside Glucose 148 mg/dl Assessment & Plan pt with recent surgery complicated with c.diff colitis. bleeding is combination of INR>3 and colitis. no need for colonoscopy ( discussed with Dr. Roberts) would slightly correct her INR and continue to treat her c.diff already doing better ( no bleeding overnight) d/w wound care regarding packing changes.
--- NOTE | 2017-12-16 10:53 | Hospitalist Progress Note ---
Hospitalist Progress Note Date of Service Dec 16, 2017. (Kelli Taveras ., DANIEL) Subjective Pt evaluation today including: conversation w/ patient, physical exam, lab review, review of inpatient medication list Voiding: no voiding problems Patient sitting in bedside chair. Feeling well this AM. Eating and drinking OK. +BM- no more blood or melena. No diarrhea. Patient denies any fever, chills, sweats, lightheadedness, dizziness, vision changes, CP, palpitations, edema, SOB, wheezing, cough, abdominal pain, nausea, vomiting, diarrhea, urinary symptoms, melena, numbness/tingling, weakness, muscle/joint pain, anxiety/depression, active bleeding, or new skin discoloration/changes. (Kelli Taveras ., NAOMYC) Medications Current Inpatient Medications Medications (Trade) Dose Ordered Sig/Viviana Route Start Time Stop Time Status Last Admin Dose Admin Ioversol (Optiray 320) 111 ml UD PRN IV 12/15/17 09:30 12/19/17 09:29 Acetaminophen (Tylenol Tab) 650 mg Q4H PRN PO 12/15/17 11:30 01/14/18 11:29 Al Hydrox/Mg Hydrox/Simethicone (Maalox Max Susp) 15 ml Q4H PRN PO 12/15/17 11:30 01/14/18 11:29 Magnesium Hydroxide (Milk Of Magnesia Susp) 30 ml Q12H PRN PO 12/15/17 11:30 01/14/18 11:29 Ondansetron HCl (Zofran Inj) 4 mg Q6H PRN IV 12/15/17 11:30 01/14/18 11:29 Nitroglycerin (Nitrostat Tab) 0.4 mg UD PRN SL 12/15/17 11:30 01/14/18 11:29 Morphine Sulfate (MoRPHine SULFATE INJ) 2 mg Q30M PRN IV 12/15/17 11:30 12/29/17 11:29 Polyethylene (Miralax Powder Packet) 17 gm DAILY PRN PO 12/15/17 11:30 01/14/18 11:29 Albuterol (Ventolin Hfa Inhaler) 2 puffs Q6H PRN INH 12/15/17 11:30 01/14/18 11:29 Atorvastatin Calcium (Lipitor Tab) 20 mg HS PO 12/15/17 21:00 01/14/18 20:59 12/15/17 21:15 20 MG Albuterol/ Ipratropium (Combivent Respimat Inh) 1 puffs QID INH 12/15/17 13:00 01/14/18 12:59 12/16/17 08:09 1 PUFFS Lactobacillus Acidophilus (Floranex Tab) 4 tab TIDM PO 12/15/17 16:45 01/14/18 17:59 12/16/17 08:09 4 TAB Levothyroxine Sodium (Synthroid Tab) 1,200 mcg DAILYBB PO 12/16/17 06:00 01/15/18 05:59 12/16/17 05:50 1,200 MCG Loratadine (Claritin Tab) 10 mg QAM PO 12/16/17 09:00 01/15/18 08:59 12/16/17 08:10 10 MG Magnesium Oxide (Mag-Ox Tab) 400 mg DAILY PO 12/16/17 09:00 01/15/18 08:59 12/16/17 08:10 400 MG Metoprolol Succinate (Toprol Xl Tab) 25 mg DAILY PO 12/16/17 09:00 01/15/18 08:59 12/16/17 08:11 25 MG Montelukast Sodium (Singulair Tab) 10 mg HS PO 12/15/17 21:00 01/14/18 20:59 12/15/17 21:16 10 MG Oxycodone HCl (Roxicodone Immediate Rel Tab) 5 mg Q4H PRN PO 12/15/17 11:30 12/29/17 11:29 Oxycodone/ Acetaminophen (Percocet 5-325mg Tab) 1 tab Q12H PRN PO 12/15/17 11:30 12/29/17 11:29 12/15/17 22:38 1 TAB Potassium Chloride (Klor-Con M10) 10 meq QAM PO 12/16/17 09:00 01/15/18 08:59 12/16/17 08:10 10 MEQ Miscellaneous Information (Order Awaiting Action) 1 ea BID N/A 12/15/17 21:00 01/14/18 20:59 Insulin Glargine (Lantus Solostar Pen) 9 units DAILY@0900 SQ 12/16/17 09:00 01/15/18 08:59 12/16/17 08:08 9 UNITS Insulin Aspart (novoLOG ASPART) SLIDING SCALE G... ACHS SC 12/15/17 16:00 01/14/18 15:59 12/16/17 08:08 3 UNITS Potassium Chloride/Sodium Chloride 1,000 ml @ 100 mls/hr Q10H IV 12/15/17 13:00 01/14/18 11:29 12/16/17 04:24 100 MLS/HR Metronidazole 500 mg/Prmx 100 ml @ 100 mls/hr Q8H IV 12/15/17 14:00 12/29/17 13:59 12/16/17 05:50 100 MLS/HR Amoxicillin/ Clavulanate Potassium (Augmentin Tab) 875 mg BIDM PO 12/15/17 16:45 12/25/17 17:59 12/16/17 08:09 875 MG Glucose (Glucose 40% Gel) 15-30 GRAMS 15 GRAMS... UD PRN PO 12/15/17 13:15 01/14/18 13:14 Glucose (Glucose Chew Tab) 4-8 Tablets 4 Tabl... UD PRN PO 12/15/17 13:15 01/14/18 13:14 Dextrose (Dextrose 50% 50ML Syringe) 25-50ML OF 50% DW IV FOR... UD PRN IV 12/15/17 13:15 01/14/18 13:14 Glucagon (Glucagon Inj) 1 mg UD PRN SQ 12/15/17 13:15 01/14/18 13:14 Pantoprazole Sodium 40 mg/ Dextrose 100 ml @ 20 mls/hr Q5H IV 12/15/17 16:00 01/14/18 15:59 12/16/17 07:30 20 MLS/HR (Kelli Taveras, DANIEL) Objective Vital Signs Date Time Temp Pulse Resp B/P (MAP) Pulse Ox O2 Delivery O2 Flow Rate FiO2 12/16/17 08:14 36.5 88 18 119/85 (96) 95 12/16/17 08:00 Room Air 12/16/17 04:00 Room Air 12/16/17 03:10 36.8 85 16 101/61 (74) 96 Room Air 12/16/17 00:00 Room Air 12/15/17 23:32 37.0 89 21 107/66 (80) 96 Room Air 12/15/17 22:14 98 96 21 12/15/17 20:00 Room Air 12/15/17 19:43 37.0 82 16 114/73 (87) 97 Room Air 12/15/17 16:00 Room Air 12/15/17 15:15 36.7 78 18 107/58 (74) 93 Room Air 12/15/17 12:30 Room Air 12/15/17 12:29 37.3 89 16 118/85 (96) 100 Room Air 12/15/17 12:16 80 18 118/73 97 Room Air 12/15/17 11:30 97 Room Air 12/15/17 10:55 86 18 107/80 97 Room Air (Kelli Taveras, PA-C) Physical Exam General Appearance: no apparent distress, + obese Eyes: normal inspection, PERRL ENT: hearing grossly normal Neck: supple Respiratory/Chest: lungs clear, no respiratory distress, no accessory muscle use Cardiovascular: + irregularly irregular (rate controlled) Abdomen: normal bowel sounds, non tender, soft, + pertinent finding (R sided abominal wound in dressing- no noted erythema or drainage from site ) Extremities: no pedal edema, no calf tenderness Neurologic/Psychiatric: alert, normal mood/affect, oriented x 3 Skin: normal color, warm/dry, no rash (Kelli Taveras ., PA-C) Laboratory Results Last 24 Hours Test 12/15/17 13:35 12/15/17 15:31 12/15/17 16:29 12/15/17 20:20 Bedside Glucose 199 mg/dl 184 mg/dl 140 mg/dl Hemoglobin 9.2 g/dL Hematocrit 29.6 % Test 12/15/17 20:46 12/16/17 03:01 12/16/17 06:40 Hemoglobin 9.2 g/dL 9.4 g/dL Hematocrit 29.6 % 29.6 % White Blood Count 5.36 K/uL Red Blood Count 3.81 M/uL Mean Corpuscular Volume 77.7 fL Mean Corpuscular Hemoglobin 24.7 pg Mean Corpuscular Hemoglobin Concent 31.8 g/dl RDW Standard Deviation 47.7 fL RDW Coefficient of Variation 17.6 % Platelet Count 171 K/uL Mean Platelet Volume 8.9 fL Prothrombin Time 24.6 SECONDS Prothromb Time International Ratio 2.4 Sodium Level 137 mmol/L Potassium Level 3.4 mmol/L Chloride Level 105 mmol/L Carbon Dioxide Level 26 mmol/L Anion Gap 6.0 mmol/L Blood Urea Nitrogen 7 mg/dl Creatinine 0.62 mg/dl Est Creatinine Clear Calc Drug Dose 104.4 ml/min Estimated GFR () 118.5 Estimated GFR (Non- 102.2 BUN/Creatinine Ratio 11.5 Random Glucose 142 mg/dl Calcium Level 7.7 mg/dl Magnesium Level 1.8 mg/dl Bedside Glucose 148 mg/dl (Kelli Taveras, PA-C) Assessment and Plan Patient is a pleasant 52 y/o female, with PMHx of asthma, metastatic colon cancer to lung, a.fib on Coumadin, DM II, HTN, HLD, hypothyroidism, ANA on CPAP , morbid obesity, and depression, who presented to the ED because of rectal bleeding x1 day. GI bleed, ?secondary to elevated INR + c.diff vs hemorrhoids vs anastomotic vs diverticular - RESOLVED: - Admit to tele for cardiac monitoring- no acute events - Trended H&H q6hrs- hgb 9.4 today from 10.3 yesterday - IV Protonix gtt- will transition to PO Protonix - Hold Coumadin- INR 2.4 today- no need for Vitamin K at this time as hemodynamically stable and bleeding has stopped, continue to monitor - IVF @ 100 ml/hr - Consulted General surgery, appreciate recommendations- discussed w/ GI, no colonoscopy at this time - Consult GI, appreciate recommendations C.diff- diagnosed on 12/13- per patient, first episode: - IV Flagyl TID due to Vancomycin allergy - Continue Probiotics - Contact precautions Abdominal wound s/p ostomy reversal on 11/13: - Wound care consulted, appreciate recommendations - Wound culture w/ gram positive cocci- sensitives pending- will continue Augmentin at this time as surgery thinks site is improving and multiple drug allergies - Augmentin BID- will need to extend c.diff treatment beyond wound treatment Hypokalemia- IMPROVING: Replace w/ KCL supplement, continue KCL 10 mEq daily- follow PRP and replace PRN Hypomagnesemia- RESOLVED: Treated w/ IV Mag supplement, continue Mag-Ox PO supplement- follow mag and replace PRN Metastatic colon cancer to lung- follows w/ Dr. Quintana: - Scheduled for next chemotherapy treatment on 12/20 - s/p resection and ostomy site on 10/18, s/p ostomy reversal on 11/[address] Rogers - s/p bronchoscopy on 11/[address] Halina Martinfib- rate controlled, HTN, HLD: - Hold Coumadin- supratherapeutic on admission at 3.1- follow PT/INR- 2.4 today - Continue Metoprolol w/ hold parameters, Lipitor. Mag-Ox supplement - Hold Lisinopril and Lasix due to low/normal BPs and IVF treatment at above T2DM- hgbA1c 10.3% in 10/2017: - Continue Toujeo 9 u SQ daily - BSG ACHS and ISS Hypothyroidism- TSH WNL in 10/2017: Continue Synthroid Asthma- STABLE, ANA: - Continue home inhalers - Continue CPAP HS GI prophylaxis: Protonix DVT prophylaxis: TEDs/SCDs; chemical anticoagulation contraindicated due to GI bleed Code status: LEVEL I, FULL Dispo: From home, lives w/ - PT/OT and CM consulted (Kelli Taveras PA-C) Reviewed: Pt Seen/Exam by Me (Radha Dash MD) History Physician Block Feeder Supervision Note: I interviewed and examined the patient. Discussed with SOREN Taveras and agree with findings and plan as documented in the note. Any exceptions or clarifications are listed here: Patient feeling better today. Has not had any clots or rectal bleeding since last night. No abdominal pain, no nausea or vomiting. No chest pain or shortness of breath. Just feeling tired because she did not sleep much last night. Vitals and telemetry reviewed-rate controlled A. fib Gen: AAOx3, NAD, obese HEENT: anicteric sclerae, EOMI CV: Irregularly irregular no mgr nl S1S2 Pulm: CTAB no wcr, diminished breath sounds throughout Abd: +BS soft NT ND, on the right side under her superior pannus is a small opening from her wound with mild erythema and mild serous drainage Ext: no edema Skin: no rashes, warm/dry except wound on abdomen as above Patient is a 52-year-old female 51 year old female with past medical history of paroxysmal atrial fibrillation on Coumadin, dyslipidemia, hypertension, obstructive sleep apnea on CPAP, diabetes mellitus type 2 on large doses of insulin, hypothyroidism on large dose of Synthroid and recently diagnosed colon cancer now status post resection and reversal of colostomy, recent diagnosis of Clostridium difficile diarrhea, who presented with painless rectal bleeding. Rectal bleeding-could be diverticular, could be from C. difficile colitis and in the setting of coagulopathy from Coumadin. Nothing overly concerning on CT scan. Appreciate general surgery and GI consultations -Continue holding Coumadin and follow INR -Continue observation and following hemoglobin -Okay to stop PPI especially in the setting of C. difficile -Okay to stop IV fluids, is tolerating p.o. Abdominal wound-growing GPC's on Gram stain possibly in chains as per microbiology lab technician, wound looks improved as per surgeon that saw her previously -Continue Augmentin line C. difficile colitis-diarrhea is much improved, with rectal bleeding could be related -Continue IV Flagyl and switch to p.o. Flagyl for 2 week course total upon discharge Atrial fibrillation-rate controlled -Holding Coumadin as above -Continue metoprolol -Keep potassium and magnesium up to 4 and 2, respectively Hypothyroidism with large dose of Synthroid (1400 mcg daily) -is followed by Endocrine Dr. Baxter at [facility] and this outpatient dosing was confirmed with her pharmacy when I saw her previously in October/2017. Pt confirms she takes her medicine every day on an empty stomach early in the AM and waits 30 min before eating/drinking anything else. Says when her dose has been lowered in the past, she had a lot of problems. Repeat TSH 6 weeks ago was normal, free T4 and free T3 remain elevated -Continue levothyroxine 1200 mcg daily -Outpatient follow-up Diabetes mellitus uncontrolled with hyperglycemia-last HgA1C 10.3 -Continue insulin as above -f/u with Endocrine and PCP Hypertension-BPs on the lower side -Continue to hold home lisinopril 5 mg daily -Continue Toprol XL Dyslipidemia Continue statin Prophylaxis-Coumadin but on hold Disposition-remain on telemetry, if no further bleeding, could potentially discharge home tomorrow Documented By: Radha Dash (Radha Dash MD)
[2017-12-16] MEDS ORDERED: MAGNESIUM SULFATE 1GM / D5W 1 GM in PREMIXED IN D5W 100 ML IV ONE (13:45)
--- NOTE | 2017-12-16 13:57 | GASTROINTESTINAL CONSULTATION ---
DATE OF CONSULTATION: 12/16/2017 CHIEF COMPLAINT: Hematochezia. REQUESTING PHYSICIAN: Kelli Taveras PA-C. HISTORY OF PRESENT ILLNESS: The patient is a 52-year-old female with a past history notable for colorectal cancer, who underwent colonoscopy in August with a diagnosis. She underwent resection with Dr. Rogers and recently had a diverting ostomy taken down. The patient notes that over the past 48 hours, she has had several episodes of hematochezia. This is described as blood on the toilet paper and sometimes in the toilet water. Of note, the patient was recently diagnosed with C. diff infection on 12/13/2017. She denies having fevers, chills, or sweats today. She does note having fatigue and having some drainage from around her surgical incision sites. PAST MEDICAL HISTORY: 1. Asthma. 2. Metastatic colon cancer. 3. Atrial fibrillation. 4. Diabetes. 5. Hypertension. 6. Hypercholesterolemia. 7. Hypothyroidism. 8. Obstructive sleep apnea. 9. Obesity. 10. Depression. PAST SURGICAL HISTORY: 1. Carpal tunnel surgery. 2. Hysterectomy. 3. Tonsillectomy. 4. Tubal ligation. 5. Total knee arthroplasty. 6. Sigmoid colectomy with ostomy on 10/18/2017 with reversal on 11/13/2017. FAMILY HISTORY: Diabetes in her parents. No history of colorectal cancer. SOCIAL HISTORY: Nonsmoker. Does not drink alcohol. The patient is and lives with her . OUTPATIENT ALLERGIES: DAPTOMYCIN, CLINDAMYCIN, SULFA, VANCOMYCIN, BEE STINGS, TRIMETHOPRIM, AND DULAGLUTIDE. OUTPATIENT MEDICATIONS: 1. Atorvastatin. 2. Questran 4 g daily. 3. Pepcid 20 mg daily. 4. Fluticasone twice daily. 5. Lasix 20 mg daily. 6. Insulin NovoLog. 7. Insulin Glargine 9 units daily. 8. Combivent 4 times daily. 9. Levothyroxine. 10. Lisinopril 5 mg daily. 11. Claritin 10 mg daily. 12. Magnesium Oxide 400 mg p.r.n. 13. Toprol-XL 25 mg daily. 14. Singulair 10 mg at bedtime. 15. Potassium chloride 10 mEq daily. REVIEW OF SYSTEMS: GENERAL: The patient does note having fatigue. CARDIAC: No chest pain. No palpitations. PULMONARY: No cough. No shortness of breath today. GASTROINTESTINAL: Please see history of present illness. GENITOURINARY: No dysuria noted by patient. MUSCULOSKELETAL: No new joint pains or muscle pains. The patient does have difficulty getting around. PSYCHIATRIC: No depression that is worse than normal today. ENT: No difficulty swallowing. NEUROLOGIC: No double vision noted by the patient. DERMATOLOGY: No new rashes. No itching noted by the patient. PHYSICAL EXAMINATION: VITAL SIGNS: Temperature is 36.5, pulse 88, respiratory rate 18, blood pressure is 119/85. GENERAL: No obvious distress. HEENT: No scleral icterus noted. No JVD noted. LUNGS: Clear to auscultation with decreased breath sounds throughout. CARDIAC: Irregular rhythm consistent with atrial fibrillation. ABDOMEN: Soft, mildly tender at the site of her recent surgery. The wound was not examined by me. EXTREMITIES: Trace edema noted bilaterally. DERMATOLOGY: No spider nevi noted. No petechia noted. LABORATORY DATA: White blood cell count 5.36, hematocrit is 29, hemoglobin is 9.4, and platelet count is 171. PT is 24.6, INR is 2.4. Sodium 137, potassium 3.4, chloride is 105, BUN is 7, creatinine is 0.62, and calcium is 7.7. IMPRESSION: A 52-year-old female recently status post ostomy takedown. GI consulted for question with regard to perirectal bleeding. This may be related to her anticoagulation. Certainly, another possibility would be bleeding at the anastomosis. As the bleeding has stopped, I would not suggest intervention given her recent surgical procedure. I would suggest that the patient be treated for Clostridium difficile infection with metronidazole as you are doing. Typically, we would recommend use of vancomycin in this type of patient; however, she does have a vancomycin allergy. Should the patient's symptoms not improve, we would then suggest a 10-day course of fidaxomicin. RECOMMENDATIONS: 1. Continue with metronidazole as you are doing. 2. Watchful waiting would be recommended in this patient. Consider reversal of anticoagulation if bleeding persists. 3. Dr. Burns to resume coverage on Sunday. Please call with any questions or concerns during the remainder of the weekend.
[2017-12-16] MEDS: ATORVASTATIN 20 MG TAB PO SCH (21:24)
[2017-12-16] MEDS: MONTELUKAST SOD 10 MG TAB PO SCH (21:24)
[2017-12-17] VITALS (9 sets, daily range): BP systolic 92–111; BP diastolic 57–79; PULSE 81–94; TEMP 36.8–37.3; O2SAT 94–100
[2017-12-17] MEDS: OXYCODONE/ACETAMINOPHEN 5-325 TAB PO PRN ×2 (00:32→23:15)
[2017-12-17 04:30] LABS: HEMATOCRIT 29.7 % (37-47); HEMOGLOBIN 9.1 g/dL (12.0-16.0); MEAN CELL VOLUME 78.6 fL (80-100); MEAN CORPUSCULAR HEMOGLOBIN 24.1 pg (25-34); MEAN CORPUSCULAR HGB CONC 30.6 g/dl (32-36); PLATELET COUNT 181 K/uL (130-400); RED CELL DISTRIBUTION WIDTH SD 49.4 fL (36.4-46.3); WHITE BLOOD COUNT 5.43 K/uL (4.8-10.8)
[2017-12-17 04:42] LABS: INR 1.8 (0.9-1.1)
[2017-12-17 04:52] LABS: CALCIUM 7.9 mg/dl (8.5-10.1); CREATININE 0.68 mg/dl (0.60-1.20); POTASSIUM 4.4 mmol/L (3.5-5.1)
[2017-12-17] MEDS: METRONIDAZOLE / NSS 500 MG in PREMIXED NSS 100 ML IV SCH ×3 (05:59→21:08)
[2017-12-17] MEDS: LEVOTHYROXINE 200 MCG TAB PO SCH (05:59)
[2017-12-17] MEDS: VILANTEROL SCH ×2 (09:00→20:45)
[2017-12-17] MEDS ORDERED: PANTOprazole SOD 40 MG TAB PO SCH (09:00)
[2017-12-17] MEDS: FLUTICASONE FUROATE SCH ×2 (09:00→20:45)
[2017-12-17] MEDS: INSULIN GLARGINE SOLOSTAR 100 UNITS/ML 3 ML PEN SQ SCH (09:06)
[2017-12-17] MEDS: INSULIN ASPART 100 UNITS/ML 3 ML PEN SC SCH ×4 (09:06→21:23)
[2017-12-17] MEDS: IPRATROPIUM BROMIDE/ALBUTEROL respimat INH INH SCH ×4 (09:07→20:45)
[2017-12-17] MEDS: AMOXICILLIN/CLAVULANATE TAB 875 MG TAB PO SCH ×2 (09:07→17:20)
[2017-12-17] MEDS: METOPROLOL SUCC 25MG EXT REL TAB PO SCH (09:08)
[2017-12-17] MEDS: POTASSIUM CHLORIDE 10 MEQ TABCR PO SCH (09:08)
[2017-12-17] MEDS: MAGNESIUM OXIDE 400 MG TAB PO SCH (09:08)
[2017-12-17] MEDS: LORATADINE 10 MG TAB PO SCH (09:08)
[2017-12-17] MEDS: LACTOBACILLUS ACIDOPHILUS (FLORANEX) TAB PO SCH ×3 (09:08→17:19)
--- NOTE | 2017-12-17 09:23 | Medical Consult ---
Consultation Note Date of Service Dec 17, 2017. Consultation Note Thoracic Surgery Consultation: Reason for consultation: Left pleural effusion and nonhealing right abdominal wound. History of Present Illness: This is a 52-year-old obese female who was found to have a rectal carcinoma and underwent a attempted laparoscopic with conversion to an open low anterior resection protected by an ileostomy by Dr. Vic Rogers on 10/18/2017. Her ileostomy was problematic given her obesity and she developed breakdown as it was difficult to keep a bag on this. Dr. Rogers took her back and took down this ileostomy and she did very well with this. He packed her ileostomy wound with calcium sulfate beads and she was closed. She did very well from that perspective. I was involved in this case that she had a single nodule in her right left lower lobe which I resected thoracoscopically. This was metastatic colorectal carcinoma. The wound was opened as there was some fluctuance and she drained but otherwise has done well with healing of all of her other wounds. She now has some drainage from one day prior to admission a couple of days ago the wound was packed with iodoform gauze. Patient presented with rectal bleeding and her INR was a bit high due to her Coumadin. I was asked to see her as the CT scan showed small amount of fluid on the left and also this wound appears to be a bit problematic. She has no fever. She has no chills. She did receive a course of chemotherapy. Her rectal carcinoma with locally advanced. Past Medical History: Rectal carcinoma Left lower lobe metastases Obesity Nonhealing right abdominal wound Asthma Atrial fibrillation Diabetes mellitus Hypothyroidism Sleep apnea Depression Hypercholesterolemia Hypertension Past Surgical History: Attempted laparoscopic then conversion to open low anterior resection Takedown of ileostomy Tubal ligation Hysterectomy Bilateral carpal tunnel release Tonsillectomy Total knee arthroplasty Medications: Potassium supplements atorvastatin number Singulair Toprol Pepcid Questran magnesium oxide Claritin Fluticasone Synthroid Lasix insulin Combivent inhaler Allergies: Daptomycin Clindamycin Septra Vancomycin Sulfa Social History: She lives with her . She does not smoke and has not smoked her entire life. She does not use alcohol. Currently does not work. Family Medical History: Her mother and her father both suffer from diabetes mellitus adult onset. There is no history of cancer she is aware. Her children in grandchildren are healthy. Review of Systems: Patient has received a course of chemotherapy which he tolerated well. She has developed diarrhea and cultures having Clostridium difficile colitis. She really is not having pain. She does not have shortness of breath. She is sedentary. She states that every time she urinates she moved her bowels. She had bright red blood per rectum but this is resolved since she has been in the hospital. Her hemoglobin is stable. She has been short of breath she pushes himself but this is not new. She said no visual or auditory symptoms which are new. Other than wound described in history of present illness in her right abdominal area she has had no wound breakdown. She has no peripheral edema. She denies chest pain or palpitations. Denies productive cough fever or night sweats. Weight has been stable. Physical Exam: This is an obese female who is awake alert and oriented. Her extraocular motor intact. Her sclera pale but anicteric. She has no nasal labial flattening. She is edentulous. Tongue is midline. She has no oral mucosal lesions. Her neck is supple. She has no neck vein distention thyromegaly or adenopathy. Her lungs are relatively clear. Her left thoracoscopic incisions are well- healed. She is a regular rate and rhythm of her heart. Her abdomen is obese soft and she is a well-healed midline incision with no breakdown. She does have an area breakdown measuring approximately 1 x 1 cm which is 3.7 cm in depth in the right mid abdominal area above the level of the umbilicus. She really does not have much in the way of peripheral edema or joint effusion. She has palpable pulses. Neurologically she is awake alert and oriented with no obvious focal deficits. Assessment/Plan: 1. Status post thoracoscopic left lower lobe wedge resection for metastatic disease. 2. Nonhealing wound right abdominal area in a patient undergoing chemotherapy. I discussed this with the patient and Dr. Rogers. I think we should close this wound. I like to take her back and close this in the operating room over pharmaceutical grade calcium sulfate beads. We will get that set up to be done in the morning. Patient is agreeable. She can be discharged after that. She seems stable from a GI standpoint.
--- NOTE | 2017-12-17 09:25 | Gastroenterology Progress Note ---
Progress Note Date of Service: Dec 17, 2017 Subjective Pt evaluation today including: conversation w/ patient, physical exam, lab review, review of studies Patient is a 52 yo female who was admitted for hematochezia. She was seen by Dr. Roberts of [facility] who provided on-call coverage over the weekend. She has had no further hematochezia since admission. Her H/H is stable at 9.1/29.7. She has an active C diff infection. She is presently on IV Metronidazole 500 mg q 8 hours. She reports that her stools are forming. She reports approximately 5 bowel movements in the past 24 hours. She denies any further bleeding. She denies abdominal pain, nausea, vomiting, constipation, or diarrhea. She offers no further complaints at this time. Review of Systems Constitutional: No fever, No chills Respiratory: No cough, No shortness of breath Cardiac: No chest pain Abdomen: No pain, No nausea, No vomiting, No diarrhea Musculoskeletal: No joint pain Neuro: No problem reported Psych: No problem reported Skin: No problem reported Medications Current Inpatient Medications Medications (Trade) Dose Ordered Sig/Viviana Route Start Time Stop Time Status Last Admin Dose Admin Ioversol (Optiray 320) 111 ml UD PRN IV 12/15/17 09:30 12/19/17 09:29 Acetaminophen (Tylenol Tab) 650 mg Q4H PRN PO 12/15/17 11:30 01/14/18 11:29 Al Hydrox/Mg Hydrox/Simethicone (Maalox Max Susp) 15 ml Q4H PRN PO 12/15/17 11:30 01/14/18 11:29 Magnesium Hydroxide (Milk Of Magnesia Susp) 30 ml Q12H PRN PO 12/15/17 11:30 01/14/18 11:29 Ondansetron HCl (Zofran Inj) 4 mg Q6H PRN IV 12/15/17 11:30 01/14/18 11:29 Nitroglycerin (Nitrostat Tab) 0.4 mg UD PRN SL 12/15/17 11:30 01/14/18 11:29 Morphine Sulfate (MoRPHine SULFATE INJ) 2 mg Q30M PRN IV 12/15/17 11:30 12/29/17 11:29 Polyethylene (Miralax Powder Packet) 17 gm DAILY PRN PO 12/15/17 11:30 01/14/18 11:29 Albuterol (Ventolin Hfa Inhaler) 2 puffs Q6H PRN INH 12/15/17 11:30 01/14/18 11:29 Atorvastatin Calcium (Lipitor Tab) 20 mg HS PO 12/15/17 21:00 01/14/18 20:59 12/16/17 21:24 20 MG Albuterol/ Ipratropium (Combivent Respimat Inh) 1 puffs QID INH 12/15/17 13:00 01/14/18 12:59 12/17/17 09:07 1 PUFFS Lactobacillus Acidophilus (Floranex Tab) 4 tab TIDM PO 12/15/17 16:45 01/14/18 17:59 12/17/17 09:08 4 TAB Levothyroxine Sodium (Synthroid Tab) 1,200 mcg DAILYBB PO 12/16/17 06:00 01/15/18 05:59 12/17/17 05:59 1,200 MCG Loratadine (Claritin Tab) 10 mg QAM PO 12/16/17 09:00 01/15/18 08:59 12/17/17 09:08 10 MG Magnesium Oxide (Mag-Ox Tab) 400 mg DAILY PO 12/16/17 09:00 01/15/18 08:59 12/17/17 09:08 400 MG Metoprolol Succinate (Toprol Xl Tab) 25 mg DAILY PO 12/16/17 09:00 01/15/18 08:59 12/17/17 09:08 25 MG Montelukast Sodium (Singulair Tab) 10 mg HS PO 12/15/17 21:00 01/14/18 20:59 12/16/17 21:24 10 MG Oxycodone HCl (Roxicodone Immediate Rel Tab) 5 mg Q4H PRN PO 12/15/17 11:30 12/29/17 11:29 Oxycodone/ Acetaminophen (Percocet 5-325mg Tab) 1 tab Q12H PRN PO 12/15/17 11:30 12/29/17 11:29 12/17/17 00:32 1 TAB Potassium Chloride (Klor-Con M10) 10 meq QAM PO 12/16/17 09:00 01/15/18 08:59 12/17/17 09:08 10 MEQ Miscellaneous Information (Order Awaiting Action) 1 ea BID N/A 12/15/17 21:00 01/14/18 20:59 Insulin Glargine (Lantus Solostar Pen) 9 units DAILY@0900 SQ 12/16/17 09:00 01/15/18 08:59 12/17/17 09:06 9 UNITS Insulin Aspart (novoLOG ASPART) SLIDING SCALE G... ACHS SC 12/15/17 16:00 01/14/18 15:59 12/17/17 09:06 5 UNITS Metronidazole 500 mg/Prmx 100 ml @ 100 mls/hr Q8H IV 12/15/17 14:00 12/29/17 13:59 12/17/17 05:59 100 MLS/HR Amoxicillin/ Clavulanate Potassium (Augmentin Tab) 875 mg BIDM PO 12/15/17 16:45 12/25/17 17:59 12/17/17 09:07 875 MG Glucose (Glucose 40% Gel) 15-30 GRAMS 15 GRAMS... UD PRN PO 12/15/17 13:15 01/14/18 13:14 Glucose (Glucose Chew Tab) 4-8 Tablets 4 Tabl... UD PRN PO 12/15/17 13:15 01/14/18 13:14 Dextrose (Dextrose 50% 50ML Syringe) 25-50ML OF 50% DW IV FOR... UD PRN IV 12/15/17 13:15 01/14/18 13:14 Glucagon (Glucagon Inj) 1 mg UD PRN SQ 12/15/17 13:15 01/14/18 13:14 Objective Vital Signs Date Time Temp Pulse Resp B/P (MAP) Pulse Ox O2 Delivery O2 Flow Rate FiO2 12/17/17 08:21 36.8 85 17 111/66 (81) 95 Room Air 12/17/17 04:00 Room Air 12/17/17 03:12 37.0 93 18 98/62 (74) 97 Room Air 12/17/17 00:00 Room Air 12/16/17 23:27 37.0 97 17 104/70 (81) 97 Room Air 12/16/17 22:21 85 97 21 12/16/17 20:00 Room Air 12/16/17 19:22 36.8 78 28 100/57 (71) 97 Room Air 12/16/17 16:00 Room Air 12/16/17 15:17 37.5 84 24 106/61 (76) 98 Room Air 12/16/17 12:00 Room Air 12/16/17 12:00 36.7 82 20 104/68 (80) 93 Room Air Physical Exam General Appearance: WD/WN, no apparent distress Eyes: normal inspection, PERRL ENT: hearing grossly normal Respiratory/Chest: lungs clear, normal breath sounds Cardiovascular: regular rate, rhythm Abdomen: normal bowel sounds, non tender, soft Extremities: non-tender Neurologic/Psych: alert, oriented x 3 Skin: normal color Laboratory Results Last 24 Hours Test 12/16/17 11:12 12/16/17 16:20 12/16/17 20:09 12/17/17 04:13 Bedside Glucose 214 mg/dl 211 mg/dl 160 mg/dl White Blood Count 5.43 K/uL Red Blood Count 3.78 M/uL Hemoglobin 9.1 g/dL Hematocrit 29.7 % Mean Corpuscular Volume 78.6 fL Mean Corpuscular Hemoglobin 24.1 pg Mean Corpuscular Hemoglobin Concent 30.6 g/dl RDW Standard Deviation 49.4 fL RDW Coefficient of Variation 18.0 % Platelet Count 181 K/uL Mean Platelet Volume 9.0 fL Prothrombin Time 18.2 SECONDS Prothromb Time International Ratio 1.8 Sodium Level 137 mmol/L Potassium Level 4.4 mmol/L Chloride Level 105 mmol/L Carbon Dioxide Level 25 mmol/L Anion Gap 7.0 mmol/L Blood Urea Nitrogen 7 mg/dl Creatinine 0.68 mg/dl Est Creatinine Clear Calc Drug Dose 95.2 ml/min Estimated GFR () 114.9 Estimated GFR (Non- 99.2 BUN/Creatinine Ratio 10.1 Random Glucose 154 mg/dl Calcium Level 7.9 mg/dl Test 12/17/17 06:50 Bedside Glucose 171 mg/dl Assessment and Plan Patient is a 52 yo female who is hospitalized for hematochezia & C diff. She also has a nonhealing abdominal wound. She has had no further hematochezia since admission. She continues on antibiotic therapy for C diff and reports her stools are forming. 1) Continue IV Metronidazole 500 mg q 8 hr. 2) Continue to monitor for further bleeding. Continue H/H. 3) Supportive care per primary team. Thank you for allowing us to participate in the care of this patient. If you should have any further questions or concerns, do not hesitate to contact us.
--- NOTE | 2017-12-17 11:34 | Hospitalist Progress Note ---
Hospitalist Progress Note Date of Service Dec 17, 2017. (Ct Gloria .HERMELINDA) Subjective Pt evaluation today including: conversation w/ patient, physical exam, chart review, lab review, review of inpatient medication list Voiding: no voiding problems Ms. Bernard is feeling better today and is ready to got home. She is tearful about her multiple hospital visits and is frustrated with continuing to be here until tomorrow to return to the OR for closure of her wound however she did say she understood and agreed to stay for the procedure. ROS Constitutional: no chills, aches, sweats or fever Respiratory: no sob,cough, sputum, or wheezing Cardiac: no chest pain, palpitations, edema, orthopnea or lightheadedness GI: no abdominal pain, nausea, vomiting, diarrhea or constipation, no further s/ s of bleeding : no dysuria or hesitancy Extremities: no joint pain or weakness Skin: no rash All other systems reviewed and negative (Ct Gloria CRNP) Medications Medications Administered Medications (Trade) Dose Ordered Sig/Viviana Route Start Time Stop Time Status Last Admin Dose Admin Sodium Chloride 1,000 ml @ 999 mls/hr Q1H1M STAT IV 12/15/17 08:51 12/15/17 09:51 DC 12/15/17 08:51 999 MLS/HR Calcium Carbonate (Tums Chew Tab) 1,500 mg ONE STAT PO 12/15/17 10:30 12/15/17 10:32 DC 12/15/17 10:54 1,500 MG Potassium Chloride (Klor-Con Tab) 40 meq NOW STAT PO 12/15/17 10:30 12/15/17 10:32 DC 12/15/17 10:54 40 MEQ Pantoprazole Sodium 80 mg/ Dextrose 120 ml @ 480 mls/hr NOW STAT IV 12/15/17 10:31 12/15/17 10:45 DC 12/15/17 10:53 480 MLS/HR Pantoprazole Sodium 40 mg/ Dextrose 100 ml @ 20 mls/hr Q5H IV 12/15/17 10:46 12/15/17 15:45 DC 12/15/17 10:53 20 MLS/HR Amoxicillin/ Clavulanate Potassium (Augmentin Tab) 875 mg NOW ONCE PO 12/15/17 11:00 12/15/17 11:01 DC 12/15/17 13:57 875 MG Atorvastatin Calcium (Lipitor Tab) 20 mg HS PO 12/15/17 21:00 01/14/18 20:59 12/16/17 21:24 20 MG Albuterol/ Ipratropium (Combivent Respimat Inh) 1 puffs QID INH 12/15/17 13:00 01/14/18 12:59 12/17/17 09:07 1 PUFFS Lactobacillus Acidophilus (Floranex Tab) 4 tab TIDM PO 12/15/17 16:45 01/14/18 17:59 12/17/17 09:08 4 TAB Levothyroxine Sodium (Synthroid Tab) 1,200 mcg DAILYBB PO 12/16/17 06:00 01/15/18 05:59 12/17/17 05:59 1,200 MCG Loratadine (Claritin Tab) 10 mg QAM PO 12/16/17 09:00 01/15/18 08:59 12/17/17 09:08 10 MG Magnesium Oxide (Mag-Ox Tab) 400 mg DAILY PO 12/16/17 09:00 01/15/18 08:59 12/17/17 09:08 400 MG Metoprolol Succinate (Toprol Xl Tab) 25 mg DAILY PO 12/16/17 09:00 01/15/18 08:59 12/17/17 09:08 25 MG Montelukast Sodium (Singulair Tab) 10 mg HS PO 12/15/17 21:00 01/14/18 20:59 12/16/17 21:24 10 MG Oxycodone/ Acetaminophen (Percocet 5-325mg Tab) 1 tab Q12H PRN PO 12/15/17 11:30 12/29/17 11:29 12/17/17 00:32 1 TAB Potassium Chloride (Klor-Con M10) 10 meq QAM PO 12/16/17 09:00 01/15/18 08:59 12/17/17 09:08 10 MEQ Insulin Glargine (Lantus Solostar Pen) 9 units DAILY@0900 SQ 12/16/17 09:00 01/15/18 08:59 12/17/17 09:06 9 UNITS Insulin Aspart (novoLOG ASPART) SLIDING SCALE G... ACHS SC 12/15/17 16:00 01/14/18 15:59 12/17/17 09:06 5 UNITS Potassium Chloride/Sodium Chloride 1,000 ml @ 100 mls/hr Q10H IV 12/15/17 13:00 12/16/17 13:21 DC 12/16/17 04:24 100 MLS/HR Metronidazole 500 mg/Prmx 100 ml @ 100 mls/hr Q8H IV 12/15/17 14:00 12/29/17 13:59 12/17/17 05:59 100 MLS/HR Amoxicillin/ Clavulanate Potassium (Augmentin Tab) 875 mg BIDM PO 12/15/17 16:45 12/25/17 17:59 12/17/17 09:07 875 MG Insulin Glargine (Lantus Solostar Pen) 7 units TODAY@1330 SQ 12/15/17 13:30 12/15/17 15:00 DC 12/15/17 13:46 7 UNITS Pantoprazole Sodium 40 mg/ Dextrose 100 ml @ 20 mls/hr Q5H IV 12/15/17 16:00 12/16/17 10:53 DC 12/16/17 07:30 20 MLS/HR Magnesium Sulfate 1 gm/Prmx 100 ml @ 100 mls/hr 1400,1500 IV 12/15/17 14:00 12/15/17 15:59 DC 12/15/17 16:50 100 MLS/HR Potassium Chloride (Klor-Con M10) 40 meq NOW STAT PO 12/16/17 08:06 12/16/17 08:17 DC 12/16/17 08:30 40 MEQ Magnesium Sulfate 1 gm/Prmx 100 ml @ 100 mls/hr ONE ONCE IV 12/16/17 13:45 12/16/17 14:44 DC 12/16/17 14:42 100 MLS/HR (Ct Gloria, HERMELINDA) Objective Vital Signs Date Time Temp Pulse Resp B/P (MAP) Pulse Ox O2 Delivery O2 Flow Rate FiO2 12/17/17 08:21 36.8 85 17 111/66 (81) 95 Room Air 12/17/17 04:00 Room Air 12/17/17 03:12 37.0 93 18 98/62 (74) 97 Room Air 12/17/17 00:00 Room Air 12/16/17 23:27 37.0 97 17 104/70 (81) 97 Room Air 12/16/17 22:21 85 97 21 12/16/17 20:00 Room Air 12/16/17 19:22 36.8 78 28 100/57 (71) 97 Room Air 12/16/17 16:00 Room Air 12/16/17 15:17 37.5 84 24 106/61 (76) 98 Room Air 12/16/17 12:00 Room Air 12/16/17 12:00 36.7 82 20 104/68 (80) 93 Room Air (Ct Gloria CRNP) Physical Exam Notes: General: no distress Eyes: normal inspection, PERLL Respiratory: chest non tender, clear to auscultation, normal breath sounds, no respiratory distress, no accessory muscle use Cardiac: regular rate and rhythm, no rub or gallop, no murmur, no edema, no jvd GI/: active bowel sounds, no abd pain or tenderness, soft, non distended Extremities: normal range of motion, normal strength, non tender Neuro/Psych: alert and oriented x 3, normal mood and affect Skin: normal color, dry, left flank over ribs has two small incisions with no drainage or erythema, right abdomen has incision which is packed and draining serous drainage (Ct Gloria CRNP) Laboratory Results Last 24 Hours Test 12/16/17 16:20 12/16/17 20:09 12/17/17 04:13 12/17/17 06:50 Bedside Glucose 211 mg/dl 160 mg/dl 171 mg/dl White Blood Count 5.43 K/uL Red Blood Count 3.78 M/uL Hemoglobin 9.1 g/dL Hematocrit 29.7 % Mean Corpuscular Volume 78.6 fL Mean Corpuscular Hemoglobin 24.1 pg Mean Corpuscular Hemoglobin Concent 30.6 g/dl RDW Standard Deviation 49.4 fL RDW Coefficient of Variation 18.0 % Platelet Count 181 K/uL Mean Platelet Volume 9.0 fL Prothrombin Time 18.2 SECONDS Prothromb Time International Ratio 1.8 Sodium Level 137 mmol/L Potassium Level 4.4 mmol/L Chloride Level 105 mmol/L Carbon Dioxide Level 25 mmol/L Anion Gap 7.0 mmol/L Blood Urea Nitrogen 7 mg/dl Creatinine 0.68 mg/dl Est Creatinine Clear Calc Drug Dose 95.2 ml/min Estimated GFR () 114.9 Estimated GFR (Non- 99.2 BUN/Creatinine Ratio 10.1 Random Glucose 154 mg/dl Calcium Level 7.9 mg/dl (Ct Gloria, HERMELINDA) Assessment and Plan Patient is a pleasant 52 y/o female, with PMHx of asthma, metastatic colon cancer to lung, a.fib on Coumadin, DM II, HTN, HLD, hypothyroidism, ANA on CPAP , morbid obesity, and depression, who presented to the ED because of rectal bleeding x1 day. GI bleed, ?secondary to elevated INR + c.diff vs hemorrhoids vs anastomotic vs diverticular - RESOLVED: - Admit to tele for cardiac monitoring- no acute events - Trended H&H q6hrs- hgb stable 9.1 - IV Protonix gtt- d/c'd - no further protonix at this time as bleeding has stopped and patient has active Cdiff infection - Hold Coumadin- INR 1.8 today- patient did not require Vit K - INR am - No further IVF for now - Consulted General surgery and thoracic surgery - patient to OR tomorrow to close abdominal incision - Consult GI - no scope at this time C.diff- diagnosed on 12/13- per patient, first episode: - IV Flagyl TID due to Vancomycin allergy - Continue Probiotics - Contact precautions Abdominal wound s/p ostomy reversal on 11/13: - Wound care consulted - Wound culture w/ gram positive cocci- sensitives pending- continue Augmentin for now - Augmentin BID- will need to extend c.diff treatment beyond wound treatment Hypokalemia- - continue KCL 10 mEq daily but may need to cut tomorrow pending morning prp - K was 4.4 today Hypomagnesemia - RESOLVED - continue Mag-Ox PO supplement Metastatic colon cancer to lung- follows w/ Dr. Quintana: - Scheduled for next chemotherapy treatment on 12/20 - s/p resection and ostomy site on 10/18, s/p ostomy reversal on 11/[address] Rogers - s/p bronchoscopy on 11/[address] Halina Martinfib- rate controlled, HTN, HLD: - Hold Coumadin- supratherapeutic on admission at 3.1- follow PT/INR- 1.8 today - Continue Metoprolol w/ hold parameters, Lipitor. Mag-Ox supplement - Hold Lisinopril and Lasix due to low/normal BPs T2DM- hgbA1c 10.3% in 10/2017: - Continue Toujeo 9 u SQ daily - BSG ACHS and ISS Hypothyroidism- TSH WNL in 10/2017: Continue Synthroid Asthma- STABLE, ANA: - Continue home inhalers - Continue CPAP HS GI prophylaxis: Protonix DVT prophylaxis: TEDs/SCDs; chemical anticoagulation contraindicated due to GI bleed Code status: LEVEL I, FULL Dispo: From home, lives w/ - PT/OT and CM consulted (Ct Gloria CRNP) Reviewed: Pt Seen/Exam by Me (Radha Dash MD) History Physician Border Measurer Supervision Note: I interviewed and examined the patient. Discussed with HERMELINDA Gloria and agree with findings and plan as documented in the note. Any exceptions or clarifications are listed here: No further rectal bleeding, loose stools have slowed down a lot. No abd pain at all. Afebrile. Anxious for dc to home but staying for abd wound closure tomorrow. Tele with A-fib/flutter, rates controlled Vitals reviewed Gen: AAOx3, NAD, obese HEENT: anicteric sclerae, EOMI CV: Irregularly irregular no mgr nl S1S2 Pulm: CTAB no wcr, diminished breath sounds throughout Abd: +BS soft NT ND, on the right side under her superior pannus is a small opening from her wound with mild erythema and mild serous drainage Ext: no edema Skin: no rashes, warm/dry except wound on abdomen as above Patient is a 52-year-old female 51 year old female with past medical history of paroxysmal atrial fibrillation on Coumadin, dyslipidemia, hypertension, obstructive sleep apnea on CPAP, diabetes mellitus type 2 on large doses of insulin, hypothyroidism on large dose of Synthroid and recently diagnosed colon cancer now status post resection and reversal of colostomy, recent diagnosis of Clostridium difficile diarrhea, who presented with painless rectal bleeding. Rectal bleeding-could have been diverticular, could be from C. difficile colitis and in the setting of coagulopathy from Coumadin. Nothing overly concerning on CT scan. Appreciate general surgery and GI consultations. Now resolved -Continue holding Coumadin and follow INR, can likely restart coumadin tomorrow after surgery -Continue observation and following hemoglobin Abdominal wound-growing Strep species from wound cx. Open wound from previous ostomy site, explored at bedside by Surgery today -Continue Augmentin -plan for OR tomorrow for abx bead placement and closure by Dr. Delatorre C. difficile colitis-diarrhea is much improved, with rectal bleeding could be related-resolving -Continue IV Flagyl and switch to p.o. Flagyl for 2 week course total upon discharge Atrial fibrillation/flutter-rate controlled -Holding Coumadin as above -Continue metoprolol -Keep potassium and magnesium up to 4 and 2, respectively Hypothyroidism with large dose of Synthroid (1400 mcg daily) -is followed by Endocrine Dr. Baxter at [facility] and this outpatient dosing was confirmed with her pharmacy when I saw her previously in October/2017. Pt confirms she takes her medicine every day on an empty stomach early in the AM and waits 30 min before eating/drinking anything else. Says when her dose has been lowered in the past, she had a lot of problems. Repeat TSH 6 weeks ago was normal, free T4 and free T3 remain elevated -Continue levothyroxine 1200 mcg daily -Outpatient follow-up Diabetes mellitus uncontrolled with hyperglycemia-last HgA1C 10.3 -Continue insulin as above -f/u with Endocrine and PCP Hypertension-BPs continue to be on the lower side -Continue to hold home lisinopril 5 mg daily -Continue Toprol XL Dyslipidemia Continue statin ANA on CPAP-cannot tolerate our CPAP mask here -continue on CPAP at home after discharge Prophylaxis-Coumadin, but on hold Disposition-stable for transfer to medical floor, possible dc to home tomorrow Documented By: Radha Dash (Radha Dash MD)
--- NOTE | 2017-12-17 13:48 | Anesthesiology Progress Note ---
Anesthesia Progress Note Date of Service Dec 17, 2017. Progress Notes Ms. Bernard is well known to the service as she has had multiple surgeries here in the past few months. Plan tomorrow is for wound debridement with antibiotic bead placement by Dr. Delatorre. Patient has not had problems with anesthetics in the past although she did had no recent surgery where she had a postop corneal abrasion. She has a complex medical history with recent diagnosis of C diff. Notably she has metastatic colon cancer to the lungs. PMH significant for asthma, ANA with CPAP, A fib (rate controlled and was on coumadin as outpatient) , IDDM, TIA (2015), anemia, obesity and recent chemo. Patient easy airway from prior anesthetic chart review. Plan for GA vs sedation. Advised to be NPO after midnight. All questions answered. Consent obtained.
[2017-12-17] MEDS: ATORVASTATIN 20 MG TAB PO SCH ×2 (20:46→21:09)
[2017-12-17] MEDS: MONTELUKAST SOD 10 MG TAB PO SCH ×2 (20:46→21:09)
[2017-12-18] VITALS (11 sets, daily range): BP systolic 93–120; BP diastolic 68–83; PULSE 84–90; TEMP 36.2–36.9; O2SAT 97–100
[2017-12-18 05:46] LABS: HEMATOCRIT 30.1 % (37-47); HEMOGLOBIN 9.4 g/dL (12.0-16.0); MEAN CORPUSCULAR HEMOGLOBIN 24.4 pg (25-34); MEAN CORPUSCULAR HGB CONC 31.2 g/dl (32-36); MEAN PLATELET VOLUME 8.8 fL (7.4-10.4); PLATELET COUNT 193 K/uL (130-400); RED CELL DISTRIBUTION WIDTH CV 18.1 % (11.5-14.5); RED CELL DISTRIBUTION WIDTH SD 49.6 fL (36.4-46.3); WHITE BLOOD COUNT 5.91 K/uL (4.8-10.8)
[2017-12-18 05:56] LABS: INR 1.5 (0.9-1.1)
[2017-12-18 06:19] LABS: CALCIUM 8.1 mg/dl (8.5-10.1); CREATININE 0.62 mg/dl (0.60-1.20); POTASSIUM 4.2 mmol/L (3.5-5.1)
[2017-12-18] MEDS: LEVOTHYROXINE 200 MCG TAB PO SCH ×2 (06:30→12:43)
[2017-12-18] MEDS: METOPROLOL SUCC 25MG EXT REL TAB PO SCH (07:29)
[2017-12-18] MEDS ORDERED: LIDOCAINE HCL 2% 2 ML VIAL (20MG/ML) ONE (07:42)
[2017-12-18] MEDS ORDERED: ONDANSETRON INJ 2 MG/ML 2 ML VIAL ONE (07:42)
[2017-12-18] MEDS ORDERED: PROPOFOL IV EMULSION 10 MG/ML 20 ML VIAL IV ONE (07:42)
[2017-12-18] MEDS ORDERED: MIDAZOLAM HCL 1 MG/ML 2ML VIAL ONE (07:42)
[2017-12-18] MEDS ORDERED: FENTANYL CITRATE INJ 50 MCG/1 ML 2 ML VIAL ONE ×2 (07:42→09:51)
[2017-12-18] MEDS: INSULIN ASPART 100 UNITS/ML 3 ML PEN SC SCH ×2 (07:45→12:54)
[2017-12-18] MEDS: LACTOBACILLUS ACIDOPHILUS (FLORANEX) TAB PO SCH ×2 (08:00→12:44)
[2017-12-18] MEDS: VILANTEROL SCH (08:00)
[2017-12-18] MEDS: FLUTICASONE FUROATE SCH (08:00)
[2017-12-18] MEDS: IPRATROPIUM BROMIDE/ALBUTEROL respimat INH INH SCH ×2 (08:00→12:42)
[2017-12-18] MEDS ORDERED: LIDOCAINE/EPINEPHRINE 1% 20 ML VIAL ONE (08:21)
[2017-12-18] MEDS ORDERED: GENTAMICIN SULFATE 40 MG/ML 2 ML VIAL ONE ×2 (08:21→09:02)
[2017-12-18] MEDS ORDERED: VANCOMYCIN HCL 1000MG/20ML VIAL ONE ×2 (08:21→09:02)
[2017-12-18] MEDS ORDERED: BUPIVACAINE/EPINEPHRINE 0.5% MPF 1:200,000 30 ML VIAL ONE (08:21)
[2017-12-18] MEDS ORDERED: CEFAZOLIN SOD 1 GM VIAL ONE (08:49)
[2017-12-18] MEDS ORDERED: MEPERIDINE HCL 25 MG/ML CARP IV PRN (09:00)
[2017-12-18] MEDS ORDERED: LABETALOL HCL IV 5 MG/ML 20ML IV PRN (09:00)
[2017-12-18] MEDS ORDERED: FENTANYL CITRATE INJ 50 MCG/1 ML 2 ML VIAL IV PRN (09:00)
[2017-12-18] MEDS ORDERED: ONDANSETRON INJ 2 MG/ML 2 ML VIAL IV PRN (09:00)
[2017-12-18] MEDS ORDERED: HYDROmorphone INJ 1 MG/ML SYR IV PRN (09:00)
[2017-12-18] MEDS ORDERED: ATROPINE SULFATE 0.1 MG/ML 5ML SYR IV PRN (09:00)
[2017-12-18] MEDS ORDERED: EpHEDrine SULFATE INJ 50 MG/ML AMP IV PRN (09:00)
--- NOTE | 2017-12-18 09:16 | [facility] Post Operative Brief Note ---
Immediate Operative Summary Operative Date Dec 18, 2017. Pre-Operative Diagnosis Nonhealing post op wound Post-Operative Diagnosis Same Procedure(s) Performed Debridement / Closure of right abdominal wound over calcium sulfate beads Surgeon Dr Delatorre Plaster Caster Surgeon(s) Andry Alcala PA-C Estimated Blood Loss 5 cc's Findings Consistent with Post-Op Diagnosis Specimens A. Cicatrail tissue Drains None Anesthesia Type MAC Complication(s) none Disposition Disposition: Recovery Room / PACU
--- NOTE | 2017-12-18 10:21 | Anesthesiology Progress Note ---
Anesthesia Post Op Note Date & Time Dec 18, 2017 at 10:21 Vital Signs Pain Intensity: 4 Vital Signs Past 12 Hours Date Time Temp Pulse Resp B/P (MAP) Pulse Ox O2 Delivery O2 Flow Rate FiO2 12/18/17 10:10 36.2 94 18 106/87 99 Nasal Cannula 3 12/18/17 10:00 89 18 135/86 100 Nasal Cannula 3 12/18/17 09:50 80 18 128/92 100 Oxymask 10 12/18/17 09:40 80 18 133/83 100 Oxymask 10 12/18/17 09:33 36.5 95 18 115/83 99 Oxymask 10 12/18/17 07:38 36.9 84 20 114/82 (93) 98 Room Air 12/18/17 07:34 Room Air 12/18/17 07:22 36.9 84 20 114/82 (93) 98 Room Air 12/18/17 05:51 36.6 88 20 116/76 (89) 98 Room Air 12/18/17 00:43 36.8 90 20 111/78 (89) 100 Room Air 12/18/17 00:30 Room Air Notes Mental Status: alert / awake / arousable, participated in evaluation Pt Amnestic to Procedure: Yes Nausea / Vomiting: adequately controlled Pain: adequately controlled Airway Patency, RR, SpO2: stable & adequate BP & HR: stable & adequate Hydration State: stable & adequate Anesthetic Complications: no major complications apparent
--- NOTE | 2017-12-18 11:09 | OPERATIVE REPORT ---
DATE OF OPERATION: 12/18/2017 PREOPERATIVE DIAGNOSIS: Nonhealing wound, right abdominal wall. POSTOPERATIVE DIAGNOSIS: Same. PROCEDURE PERFORMED: Debridement of abdominal wall wound with packing with calcium sulfate beads impregnated with antibiotic and closure. SURGEON: Marcial Delatorre MD. BOLTER HELPER: SOREN Rivas. (Mr. Alcala was present for the entire case and closed the skin at the conclusion.) ANESTHESIA: Local MAC. SPECIFICS OF PROCEDURE: Luisa Bernard is a 52-year-old female I have known for the last few months. 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 She had an ileostomy to protect her low anterior resection anastomosis and this was not able to be fitted with an appliance properly because of her abdominal pannus. The wound broke down and Dr. Vic Rogers took the patient back to the operating room and took down this ileostomy. The wound was closed but it has opened back up and she has a space. I felt that closing this over antibiotic beads would be helpful in light of the fact that the patient is receiving chemotherapy. PROCEDURE IN DETAIL: The patient brought to the operating room, laid in supine position. IV sedation was given. Her abdominal area was prepped and draped in usual sterile fashion. After appropriate timeout had been called and prophylactic antibiotics were given, an elliptical incision was used to excise the wound. This wound opened up into a cavity but the abdominal wall was intact. I debrided all nonviable tissue and irrigated out forcefully. 10 mL of pharmaceutical grade calcium sulfate was reconstituted with a gram of vancomycin in 480 mg of liquid gentamicin. When this formed a putty like consistency, it was placed on a mold. When the beads had set, the mold was bent and the beads removed. This was used to completely fill the space. 0 Vicryl was used in an interrupted fashion to close the deeper subcutaneous tissues and 2-0 nylon was used in a vertical mattress fashion to reapproximate the wound edges. She tolerated it quite well with negligible blood loss. It should be noted that I used a mixture of 0.5% bupivacaine with epinephrine and 1% lidocaine for local anesthesia before proceeding with this case. I attest to the content of the Intraoperative Record and any orders documented therein. Any exception s are noted below.
[2017-12-18] MEDS: MAGNESIUM OXIDE 400 MG TAB PO SCH (12:39)
[2017-12-18] MEDS: POTASSIUM CHLORIDE 10 MEQ TABCR PO SCH (12:40)
[2017-12-18] MEDS: LORATADINE 10 MG TAB PO SCH (12:40)
[2017-12-18] MEDS: AMOXICILLIN/CLAVULANATE TAB 875 MG TAB PO SCH (12:40)
[2017-12-18] MEDS: INSULIN GLARGINE SOLOSTAR 100 UNITS/ML 3 ML PEN SQ SCH (14:15)
[2017-12-18] MEDS: METRONIDAZOLE / NSS 500 MG in PREMIXED NSS 100 ML IV SCH (14:20)
[2017-12-18] MEDS ORDERED: CMD5 PO ×2 (14:59)
[2017-12-18] MEDS ORDERED: FERR324T PO ×2 (14:59)
[2017-12-18] MEDS ORDERED: METR500T PO ×2 (14:59)
--- NOTE | 2017-12-18 15:06 | Discharge Instructions ---
Discharge Instructions Date of Service Dec 18, 2017. Admission Reason for Admission: Rectal Bleeding Discharge Discharge Diagnosis / Problem: C.diff infection Discharge Goals Goal(s): Improve disease control Activity Recommendations Activity Limitations: resume your previous activity Exercise/Sports Limitations: gradually increase as tolerated . Instructions / Follow-Up Instructions / Follow-Up Dr. Delatorre's office will contact you for follow up in about a week. Please follow up with your primary care provider within about a week I have held your lisinopril because your blood pressure has been running low, please check your blood pressure daily at home and take a log to your primary care provider at your next visit. Please have your blood drawn on Sunday Please complete the entire metronidazole course. C.Diff is contagious and cannot be eliminated by hand roll on worker. Please take care to wash your hands with soap and water after using the bathroom and frequently throughout the day. Current Hospital Diet Patient's current hospital diet: Diabetes Type 2 Diet Discharge Diet Recommended Diet: Diabetes Type 2 Diet Procedures Procedures Performed: Debridement / Closure of right abdominal wound over calcium sulfate beads Abd/Pelvis CT Pending Studies Studies pending at discharge: no Laboratory Results Hemoglobin A1c Test 10/04/17 06:15 Range/Units Estimated Average Glucose 249 mg/dl Hemoglobin A1c 10.3 H 4.5-5.6 % Lipid Panel Test 10/03/17 23:10 11/14/17 08:39 Range/Units Triglycerides Level 198 H 127 0-150 mg/dl Cholesterol Level 154 0-200 mg/dl HDL Cholesterol 21 mg/dl Cholesterol/HDL Ratio 7.3 LDL Cholesterol, Calculated 93 mg/dl Medical Emergencies . Who to Call and When: Medical Emergencies: If at any time you feel your situation is an emergency, please call 911 immediately. . Non-Emergent Contact Non-Emergency issues call your: Primary Care Provider Call Non-Emergent contact if: you have a fever, you have any medication questions . Past History Medical & Surgical History: (1) C. difficile diarrhea (2) Anemia (3) HTN (hypertension) (4) Diabetes mellitus type 2 in obese (5) Dyslipidemia . "Provider Documentation" section prepared by Ct Gloria. .
--- NOTE | 2017-12-18 15:17 | Discharge Summary ---
Discharge Summary Date of Service Dec 18, 2017. Discharge Summary Admission Date: Dec 15, 2017 at 11:40 Discharge Date: Dec 18, 2017 Discharge Disposition: Home Principal Diagnosis: Rectal bleeding Problems/Secondary Diagnoses: Anemia of acute blood loss in the setting of Coumadin coagulopathy Elevated INR C.diff colitis, Poorly healing abdominal wound s/p ostomy reversal on 11/13 with Streptococcus wound infection Hypokalemia Hypomagnesemia Metastatic colon cancer to lung- follows w/ Dr. Quintana Chronic A.fib/flutter [id number], on long-term insulin, with hyperglycemia hgbA1c 10.3% Hypothyroidism Asthma Dyslipidemia HTN ANA on CPAP Immunizations: Have You Had Influenza Vaccine: N/A Influenza Vaccine Date: Jun 19, 2011 History of Tetanus Vaccine?: Yes History of Pneumococcal: Yes Pneumococcal Date: February 23, 2011 History of Hepatitis B Vaccine: Yes Procedures: DICTATED BY: Marcial Delatorre MD DATE OF OPERATION: 12/18/2017 PREOPERATIVE DIAGNOSIS: Nonhealing wound, right abdominal wall. POSTOPERATIVE DIAGNOSIS: Same. PROCEDURE PERFORMED: Debridement of abdominal wall wound with packing with calcium sulfate beads impregnated with antibiotic and closure. SURGEON: Marcial Delatorre MD. DETECTIVE [employer]AU: SOREN Rivas. (Mr. Alcala was present for the entire case and closed the skin at the conclusion.) ANESTHESIA: Local MAC. SPECIFICS OF PROCEDURE: Luisa Bernard is a 52-year-old female I have known for the last few months. 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 She had an ileostomy to protect her low anterior resection anastomosis and this was not able to be fitted with an appliance properly because of her abdominal pannus. The wound broke down and Dr. Vic Rogers took the patient back to the operating room and took down this ileostomy. The wound was closed but it has opened back up and she has a space. I felt that closing this over antibiotic beads would be helpful in light of the fact that the patient is receiving chemotherapy. PROCEDURE IN DETAIL: The patient brought to the operating room, laid in supine position. IV sedation was given. Her abdominal area was prepped and draped in usual sterile fashion. After appropriate timeout had been called and prophylactic antibiotics were given, an elliptical incision was used to excise the wound. This wound opened up into a cavity but the abdominal wall was intact. I debrided all nonviable tissue and irrigated out forcefully. 10 mL of pharmaceutical grade calcium sulfate was reconstituted with a gram of vancomycin in 480 mg of liquid gentamicin. When this formed a putty like consistency, it was placed on a mold. When the beads had set, the mold was bent and the beads removed. This was used to completely fill the space. 0 Vicryl was used in an interrupted fashion to close the deeper subcutaneous tissues and 2-0 nylon was used in a vertical mattress fashion to reapproximate the wound edges. She tolerated it quite well with negligible blood loss. It should be noted that I used a mixture of 0.5% bupivacaine with epinephrine and 1% lidocaine for local anesthesia before proceeding with this case. I attest to the content of the Intraoperative Record and any orders documented therein. Any exceptions are noted below. Dictated: 12/18/17 0949 Transcribed: 12/18/17 1018 <Electronically signed by Marcial Delatorre MD> ABD/PELVIS IV CONTRAST ONLY CT DOSE: 1211.62 mGy.cm HISTORY: Pain. h/o met CC s/p ileostomy and recent reversal w/ rectal bleeding TECHNIQUE: Multiaxial CT images of the abdomen and pelvis were performed following the use of intravenous contrast. A dose lowering technique was utilized adhering to the principles of ALARA. COMPARISON STUDY: 11/04/2017 FINDINGS: Interval development of a small left pleural effusion with left basilar atelectatic change. Radiopaque material is present possibly from resection of the frantz processes left lung base. Mild heterogeneity of the liver of uncertain significance. This potentially is technical. Spleen is unremarkable. The adrenal glands are within normal limits. The kidneys enhance appropriately. There has been interval reversal of the patient's right sided anterior ostomy. At the ostomy site is a complex solid/semisolid collection including air which potentially represents a postoperative phlegmon is type process. This measures 6.5 x 3.5 cm. A drainable pocket percutaneously is not felt to be present. There is a small amount of postoperative air and soft tissue within the deep periumbilical region. This is similar as compared to the prior study. Operative changes consistent with a low sigmoid resection are again noted. The presacral soft tissue is unchanged. No evidence for drainable abscess or collection. Bowel pattern is nonobstructive. IMPRESSION: 1. Interval reversal of the patient's right-sided ostomy. 2. Residual complex air/debris phlegmon type process combined with what appears to be potential mesh placement within the subcutaneous fat at the ostomy reversal site measuring 6.5 x 3.5 cm. 3. Unchanging presacral soft tissue. 4. Interval postoperative changes of what appear to be the left lung base with a small residual pleural effusion and basilar atelectatic change. The above report was generated using voice recognition software. It may contain grammatical, syntax or spelling errors. Electronically signed by: Iker Avelar M.D. 12/15/2017 10:36 AM Dictated Date/Time: 12/15/2017 10:26 AM Consultations: Dr. Delatorre from thoracic surgery Dr. Rogers from general surgery Dr. Roberts from GI Medication Reconciliation New Medications: Ferrous Gluconate (Iron Supplement) 324 Mg Tab 324 MG PO DAILY for 30 Days, #30 TAB Metronidazole (Flagyl) 500 Mg Tab 500 MG PO Q8H for 10 Days, #30 TAB Warfarin Sod (Coumadin) 5 Mg Tab 5 MG PO DAILY@16 for 14 Days, #14 TAB Continued Medications: Albuterol Hfa (Ventolin Hfa) 200 Puffs/80007 Mcg Aers 2-4 PUFFS INH Q6H PRN for ASTHMA Atorvastatin (Lipitor) 20 Mg Tab 20 MG PO HS Cholestyramine (Bulk) (Cholestyramine) 1 Pow Pow 1 PKT DAILY Famotidine (Pepcid) 20 Mg Tab 20 MG PO DAILY Fluticasone Furoate-Vilanterol (Breo Ellipta 200-25 Mcg/INH) 1 Inh Inh 1 PUFF INH QAM Furosemide (Lasix) 20 Mg Tab 20 MG PO QAM Insulin Aspart (Novolog) 100 Units/Ml Inj UNITS SQ TIDM SLIDING SCALE Insulin Glargine (Toujeo Solostar) 300 Unit/Ml Inj 9 UNITS SQ DAILY for 30 Days, #1 PEN Ipratropium-Albuterol (Combivent Respimat) 1 Aer Aer 1 PUFFS INH QID Lactobacillus Acidophilus (Lactinex) Tab 4 TAB PO TID Levothyroxine Sodium (Levothyroxine Sodium) 200 Mcg Tab 6 TAB PO DAILY Loratadine (Claritin) 10 Mg Cap 10 MG PO QAM Magnesium Oxide (Mag-Ox) 400 Mg Tab 400 MG PO DAILY Metoprolol Succinate (Toprol Xl) 50 Mg Tabcr 25 MG PO DAILY Montelukast Sod (Montelukast Sodium) 10 Mg Tab 10 MG PO HS Ondansetron Hcl (Zofran) 8 Mg Tab 8 MG PO Q6 PRN for Nausea Oxycodone HCl (Oxycodone HCl) 5 Mg Tab 5-10 MG PO Q4H PRN for Pain, #30 TAB Oxycodone/Acetaminophen 5MG/325MG (Percocet 5MG/325MG) Tab 1 TABLETS PO Q12H PRN for Pain, #10 TAB only in severe pain if tylenol alone was not sufficient Potassium Chloride (Micro-K Ext Rel) 10 Meq Capcr 10 MEQ PO QAM Discontinued Medications: Lisinopril (Lisinopril) 5 Mg Tab 5 MG PO QAM Discharge Exam ROS Constitutional: no chills, aches, sweats or fever Respiratory: no sob,cough, sputum, or wheezing Cardiac: no chest pain, palpitations, edema, orthopnea or lightheadedness GI: tender abdomen, no nausea, vomiting, diarrhea or constipation : no dysuria or hesitancy Extremities: no joint pain or weakness Skin: no rash All other systems reviewed and negative General: no distress Eyes: normal inspection, PERLL Respiratory: chest non tender, clear to auscultation, normal breath sounds, no respiratory distress, no accessory muscle use Cardiac: regular rate and rhythm, no rub or gallop, no murmur, no edema, no jvd GI/: active bowel sounds, no abd pain or tenderness, soft, non distended Extremities: normal range of motion, normal strength, non tender Neuro/Psych: alert and oriented x 3, normal mood and affect Skin: normal color, dry Hospital Course Patient is a pleasant 52 y/o female, with PMHx of asthma, metastatic colon cancer to lung, a.fib on Coumadin, DM II, HTN, HLD, hypothyroidism, ANA on CPAP , morbid obesity, and depression, who presented to the ED because of rectal bleeding x1 day. GI bleed, ?secondary to elevated INR + c.diff vs hemorrhoids vs anastomotic vs diverticular - RESOLVED: - Admitted to tele for cardiac monitoring initially - no acute events - Trended H&H q6hrs- hgb stable around 9.4 - IV Protonix gtt- d/c'd - no further protonix at this time as bleeding has stopped and patient has active Cdiff infection - Hold Coumadin- INR 1.5 today- patient did not require Vit K - restart coumadin this afternoon and check INR on Sunday - Consulted General surgery and thoracic surgery - patient to OR tomorrow to close abdominal incision with calcium abx beads - Consulted GI - no scope at this time C.diff- diagnosed on 12/13- per patient, first episode: - IV Flagyl TID due to Vancomycin allergy - continue po flagyl tid for 10 more days for a total of 14 - Continued Probiotics Abdominal wound s/p ostomy reversal on 11/13: - Wound care consulted - Wound culture w/ gram positive cocci- discontinued Augmentin course after surgical closure placed abx beads Hypokalemia- - continue KCL 10 mEq daily Hypomagnesemia - RESOLVED - continue Mag-Ox PO supplement Metastatic colon cancer to lung- follows w/ Dr. Quintana: - Scheduled for next chemotherapy treatment on 12/20 - s/p resection and ostomy site on 10/18, s/p ostomy reversal on 11/[address] Rogers - s/p bronchoscopy on 11/[address] Meade as well as left wedge resection A.fib- rate controlled, HTN, HLD: - Restart Coumadin- supratherapeutic on admission at 3.1- 1.5 today - Continue Metoprolol w/ hold parameters, Lipitor. Mag-Ox supplement - Hold Lisinopril due to low/normal BPs - restart lasix for home - advised to take blood pressure daily and log for pcp T2DM- hgbA1c 10.3% in 10/2017: - Continue Toujeo 9 u SQ daily - BSG ACHS and ISS - return to home ss for discharge Hypothyroidism- TSH WNL in 10/2017: Continue 1200 mcg Levoxyl daily Asthma- STABLE, ANA: - Continue home inhalers - Continue CPAP HS Total Time Spent: Greater than 30 minutes This includes examination of the patient, discharge planning, medication reconciliation, and communication with other providers. Discharge Instructions Please refer to the electronic Patient Visit Report (Discharge Instructions) for additional information. Follow-Up [facility] on SundayDecember 21 at 2:00 pm. [facility] with Dr. Vivar on SundayDecember 26 at 10:00 am. Please, follow up at [facility] General Surgery Office - the nurse will call her with the date and time. Additional Copies To Madison Vivar M.D. Reviewed: Pt Seen/Exam by Me History Physician Senior Data Architect Supervision Note: I interviewed and examined the patient. Discussed with HERMELINDA Gloria and agree with findings and plan as documented in the note. Any exceptions or clarifications are listed here: No further rectal bleeding, has not had any bowel movements today. Had abdominal wound closed with antibiotic soaked beads today. Feels well and ready for discharge. Vitals reviewed Gen: AAOx3, NAD, obese HEENT: anicteric sclerae, EOMI CV: Irregularly irregular no mgr nl S1S2 Pulm: CTAB no wcr, diminished breath sounds throughout Abd: +BS soft NT ND, surgical site in the right lower quadrant with dressing in place not removed is clean dry and intact Ext: no edema Skin: no rashes Patient is a 52-year-old female 51 year old female with past medical history of paroxysmal atrial fibrillation on Coumadin, dyslipidemia, hypertension, obstructive sleep apnea on CPAP, diabetes mellitus type 2 on large doses of insulin, hypothyroidism on large dose of Synthroid and recently diagnosed colon cancer now status post resection and reversal of colostomy, recent diagnosis of Clostridium difficile diarrhea, who presented with painless rectal bleeding. Rectal bleeding-could have been diverticular, could be from C. difficile colitis and in the setting of coagulopathy from Coumadin. Nothing overly concerning on CT scan. Appreciate general surgery and GI consultations. Now resolved -Hold Coumadin during admission and can restart today -Check INR in 2 days Abdominal wound-growing Strep species from wound cx. Open wound from previous ostomy site, surgically closed and packed with antibiotic soaked beads -No further need for oral antibiotics -Follow-up with surgery C. difficile colitis-resolved -Continue to complete course of p.o. Flagyl after discharge Atrial fibrillation/flutter-rate controlled -Restarting Coumadin as above -Continue metoprolol Hypothyroidism with large dose of Synthroid (1400 mcg daily) -is followed by Endocrine Dr. Baxter at [facility] and this outpatient dosing was confirmed with her pharmacy when I saw her previously in October/2017. Pt confirms she takes her medicine every day on an empty stomach early in the AM and waits 30 min before eating/drinking anything else. Says when her dose has been lowered in the past, she had a lot of problems. Repeat TSH 6 weeks ago was normal, free T4 and free T3 remain elevated -Continue levothyroxine 1200 mcg daily -Outpatient follow-up Diabetes mellitus uncontrolled with hyperglycemia-last HgA1C 10.3-improved throughout the stay -Continue insulin as above -f/u with Endocrine and PCP Hypertension-BPs continue to be on the lower side -Continue to hold home lisinopril 5 mg daily -Continue Toprol XL Dyslipidemia Continue statin ANA on CPAP-cannot tolerate our CPAP mask here -continue on CPAP at home after discharge Stable for discharge to home Documented By: Radha Dash
[2017-12-18] MEDS ORDERED: WARFARIN SOD 5 MG TAB PO SCH (16:00)
== END 2017-12-18 16:26 | disposition home health service (06) | DRG 357 ==
LOC: C.EDB 08:33 → C.2E 11:40 → UNDOADMIN 11:40 → ENRESERV 11:48 → C.MS4W 12-17 21:05
PROVIDERS: ADMIT Family Medicine; ATTEND Family Medicine
PROC: 3E01329 Introduction of Other Anti-infective into Subcutaneous Tissue, Percutaneous Approach (ICD-10-PCS; principal; 2017-12-18 08:30)
PROC: 0WBF0ZZ Excision of Abdominal Wall, Open Approach (ICD-10-PCS; principal; 2017-12-18 08:30)
DX: K62.5 Hemorrhage of anus and rectum (principal); D68.32 Hemorrhagic disorder due to extrinsic circulating anticoagulants; A04.72 Enterocolitis due to Clostridium difficile, not specified as recurrent; T81.4XXA Infection following a procedure, initial encounter; D62 Acute posthemorrhagic anemia; C19 Malignant neoplasm of rectosigmoid junction; C78.02 Secondary malignant neoplasm of left lung; B95.5 Unspecified streptococcus as the cause of diseases classified elsewhere; E87.6 Hypokalemia; E83.42 Hypomagnesemia; I48.91 Unspecified atrial fibrillation; I10 Essential (primary) hypertension; E78.5 Hyperlipidemia, unspecified; E11.65 Type 2 diabetes mellitus with hyperglycemia; E03.9 Hypothyroidism, unspecified; J45.909 Unspecified asthma, uncomplicated; G47.33 Obstructive sleep apnea (adult) (pediatric); E66.01 Morbid (severe) obesity due to excess calories; Z68.39 Body mass index [BMI] 39.0-39.9, adult; Z90.49 Acquired absence of other specified parts of digestive tract; Z98.890 Other specified postprocedural states; Z79.01 Long term (current) use of anticoagulants; Z79.4 Long term (current) use of insulin; Z79.51 Long term (current) use of inhaled steroids; Z79.899 Other long term (current) drug therapy; Z88.1 Allergy status to other antibiotic agents; Z88.2 Allergy status to sulfonamides; Z91.030 Bee allergy status; Z83.3 Family history of diabetes mellitus; Z82.49 Family history of ischemic heart disease and other diseases of the circulatory system; Z83.6 Family history of other diseases of the respiratory system; Z82.0 Family history of epilepsy and other diseases of the nervous system; Z96.659 Presence of unspecified artificial knee joint; Z90.710 Acquired absence of both cervix and uterus; Z98.51 Tubal ligation status

== ENCOUNTER → 2017-12-21 | Outpatient (CLI) | payer OTHER ==
[~2017-12-21] MED LIST changes: +CMD5 PO; +FERR324T PO; -LSN5 PO; +METR500T PO
[2017-12-21 17:54] LABS: INR 1.7 (0.9-1.1)
== END | disposition home or self-care (01) ==
LOC: C.LABPVFM 14:19
PROVIDERS: ATTEND Nurse Practitioner Family
DX: I48.91 Unspecified atrial fibrillation (principal)

== ENCOUNTER 2018-02-11 18:35 | Inpatient (IN) | payer OTHER ==
[~2018-02-11] VITALS: Ht 152.4 cm; Wt 81.0 kg
[~2018-02-11 18:35] MED LIST changes: -FERR324T PO; -METR500T PO
[2018-02-11] MEDS ORDERED: AMPICILLIN/SULBACTAM SOD INJ 1,500 MG in SODIUM CHLORIDE 0.9% 50ML 50 ML IV STA (18:50)
[2018-02-11] MEDS ORDERED: SODIUM CHLORIDE 0.9% 500ML 500 ML IV STA ×2 (18:50→20:41)
--- NOTE | 2018-02-11 19:01 | EMERGENCY ROOM VISIT NOTE ---
History Report prepared by Aakash: Maribel Arnold Under the Supervision of: Dr. Tacho Aparicio M.D. 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 She states she was at Urgent Care earlier today where she was told she had a fever and was referred to the ED. The patient notes she has a bump on her vaginal area that she thought would pop but it has not. She reports she has tried hot compresses but notes she cannot get them too hot because of her chemotherapy treatments. She denies any urinary symptoms or wound drainage. The patient is currently on Coumadin and chemotherapy--last chemo was 1.[address] Quintana is the patient's cancer doctor. 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 Review of Systems See HPI for pertinent positives & negatives. A total of 10 systems reviewed and were otherwise negative. Past Medical & Surgical Medical Problems: (1) A-fib (2) Abscess of left genital labia (3) Anemia (4) Asthma (5) C. difficile diarrhea (6) Diabetes mellitus type 2 in obese (7) Dyslipidemia (8) GERD (gastroesophageal reflux disease) (9) Hepatitis (10) HTN (hypertension) (11) Hypothyroidism (12) Intra-abdominal abscess (13) Lactic acidosis (14) Leaky heart valve (15) Mitral regurgitation (16) Morbid obesity with BMI of 40.0-44.9, adult (17) MRSA (methicillin resistant Staphylococcus aureus) (18) ANA (obstructive sleep apnea) (19) Panniculitis (20) Patella fracture (21) Post-op pain (22) Rectal cancer Surgical Problems: (1) History of carpal tunnel surgery (2) History of hysterectomy (3) History of tonsillectomy and adenoidectomy (4) History of tubal ligation (5) Hx of total knee arthroplasty Family History Diabetes mellitus FH: heart disease FH: lung disease Hypertension Seizures Social History Smoking Status: Never Smoker Alcohol Use: none Drug Use: none Marital Status: Housing Status: lives with significant other Occupation Status: disabled Current/Historical Medications Scheduled Atorvastatin (Lipitor), 20 MG PO HS Cholestyramine (Bulk) (Cholestyramine), 1 PKT DAILY Fluticasone Furoate-Vilanterol (Breo Ellipta 200-25 Mcg/INH), 1 PUFF INH QAM Insulin Aspart (Novolog), UNITS SQ TIDM Insulin Glargine (Toujeo Solostar), 9 UNITS SQ QAM Ipratropium-Albuterol (Combivent Respimat), 1 PUFFS INH QID Lactobacillus Acidophilus (Lactinex), 4 TAB PO TID Levothyroxine Sodium (Levothyroxine Sodium), 1,200 MCG PO DAILY Loratadine (Claritin), 10 MG PO QAM Magnesium Oxide (Mag-Ox), 400 MG PO DAILY Metoprolol Succinate (Toprol Xl), 25 MG PO DAILY Montelukast Sod (Montelukast Sodium), 10 MG PO HS Warfarin Sod (Coumadin), 5 MG PO Q2D Warfarin Sod (Coumadin), 2.5 MG PO Q2D Scheduled PRN Albuterol Hfa (Ventolin Hfa), 2-4 PUFFS INH Q6H PRN for ASTHMA Famotidine (Pepcid), 20 MG PO DAILY PRN for GI UPSET Furosemide (Lasix), 20 MG PO QAM PRN for FLUID OVERLOAD Ondansetron Hcl (Zofran), 8 MG PO Q6 PRN for Nausea Oxycodone/Acetaminophen 5MG/325MG (Percocet 5MG/325MG), 1 TAB PO BID PRN for Pain Potassium Chloride (Micro-K Ext Rel), 10 MEQ PO QAM PRN for ONLY WHEN LASIX IS TAKEN Allergies Coded Allergies: Daptomycin (Verified Allergy, Severe, SHORTNESS OF BREATH, 12/15/17) 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 Clindamycin (Verified Allergy, Intermediate, HIVES, 12/15/17) Sulfa Antibiotics (Verified Allergy, Intermediate, BACTRIM-HIVES, 12/15/17) Vancomycin (Verified Allergy, Intermediate, RASH, 12/15/17) BEE STING (Verified Allergy, Unknown, HIVES, 12/15/17) Trimethoprim (Verified Allergy, Unknown, HIVES, 12/15/17) Dulaglutide (Verified Adverse Reaction, Severe, BRAND-TRULICITY, SEVERE GI UPSET, CONSTIPATION, 12/15/17) Physical Exam Vital Signs Date Time Temp Pulse Resp B/P (MAP) Pulse Ox O2 Delivery O2 Flow Rate FiO2 02/12/18 00:03 89 16 141/98 97 02/11/18 23:31 120/84 02/11/18 23:30 109 27 120/84 94 02/11/18 23:01 141/83 02/11/18 23:00 100 24 141/83 97 02/11/18 22:31 85 109/74 96 Room Air 02/11/18 22:01 90 115/85 98 02/11/18 21:52 89 16 120/80 96 Room Air 02/11/18 21:07 81 02/11/18 20:18 81 16 112/81 94 Room Air 02/11/18 18:39 36.4 113 18 117/76 94 Room Air Physical Exam GENERAL: Patient is in no acute distress. HEENT: No acute trauma, normocephalic atraumatic, mucous membranes dry, no nasal congestion, no scleral icterus. NECK: No stridor, no adenopathy, no meningismus, trachea is midline. LUNGS: Clear to auscultation bilaterally, no wheeze, no rhonchi, breath sounds equal. HEART: Tachycardic with an irregular rhythm. No murmurs. ABDOMEN: Soft, nontender, bowel sounds positive, no hernias, no peritonitis. VAGINAL: A 5-6 cm erythematous area of swelling to the left side of the vagina in the area of the labia. No drainage. The area is tender to touch and there is some surrounding erythema. EXTREMITIES: No cyanosis or edema, full range of motion of all the joints without pain or difficulty, no signs for acute trauma. NEUROLOGIC: Oriented x 3, no acute motor or sensory deficits, no focal weakness. SKIN: No rash, no jaundice, no diaphoresis. Medical Decision & Procedures Laboratory Results 02/11/18 19:15 Red Blood Count 5.13, Mean Corpuscular Volume 77.0, Mean Corpuscular Hemoglobin 25.7, Mean Corpuscular Hemoglobin Concent 33.4, Mean Platelet Volume 9.0 02/11/18 19:15 Test 02/11/18 19:15 02/11/18 20:29 02/11/18 23:55 White Blood Count 10.20 K/uL (4.8-10.8) Red Blood Count 5.13 M/uL (4.2-5.4) Hemoglobin 13.2 g/dL (12.0-16.0) Hematocrit 39.5 % (37-47) Mean Corpuscular Volume 77.0 fL (80-100) Mean Corpuscular Hemoglobin 25.7 pg (25-34) Mean Corpuscular Hemoglobin Concent 33.4 g/dl (32-36) Platelet Count 119 K/uL (130-400) Mean Platelet Volume 9.0 fL (7.4-10.4) RDW Standard Deviation 57.0 fL (36.4-46.3) RDW Coefficient of Variation 21.6 % (11.5-14.5) Nucleated RBC Absolute Count (auto) 0.05 K/uL (0-0) Neutrophils % (Manual) 52.6 % Lymphocytes % (Manual) 18.4 % Variant Lymphocytes % (manual) 1.8 % Monocytes % (Manual) 23.7 % Basophils % (Manual) 2.6 % Myelocytes % 0.9 % Nucleated Red Blood Cells % 0.5 % Neutrophils # (Manual) 5.37 K/uL (1.4-6.5) Total Absolute Neutrophils 5.37 K/uL (1.4-6.5) Lymphocytes # (Manual) 1.88 K/uL (1.2-3.4) Absolute Variant Lymphocytes 0.18 K/uL Total Absolute Lymphocytes 2.06 K/uL (1.2-3.4) Monocytes # (Manual) 2.42 K/uL (0.11-0.59) Basophils # (Manual) 0.27 K/uL (0-0.2) Myelocytes # 0.09 K/uL (0-0) Toxic Granulation 2+ Dohle Bodies 1+ Microcytosis PRESENT Prothrombin Time 13.3 SECONDS (9.0-12.0) Prothromb Time International Ratio 1.3 (0.9-1.1) Activated Partial Thromboplast Time 27.8 SECONDS (21.0-31.0) Partial Thromboplastin Ratio 1.1 Anion Gap 11.0 mmol/L (3-11) Est Creatinine Clear Calc Drug Dose 54.2 ml/min Estimated GFR () 67.4 Estimated GFR (Non- 58.2 BUN/Creatinine Ratio 13.1 (10-20) Calcium Level 9.2 mg/dl (8.5-10.1) Magnesium Level 1.4 mg/dl (1.8-2.4) Total Bilirubin 1.5 mg/dl (0.2-1) Aspartate Amino Transf (AST/SGOT) 19 U/L (15-37) Alanine Aminotransferase (ALT/SGPT) 14 U/L (12-78) Alkaline Phosphatase 154 U/L (45-117) Total Protein 7.9 gm/dl (6.4-8.2) Albumin 3.2 gm/dl (3.4-5.0) Globulin 4.7 gm/dl (2.5-4.0) Albumin/Globulin Ratio 0.7 (0.9-2) Beta-Hydroxybutyric Acid 6.17 mg/dL (0.2-2.81) Thyroid Stimulating Hormone (TSH) 2.080 uIu/ml (0.300-4.500) Free Thyroxine 3.03 ng/dl (0.80-1.60) Urine Color YELLOW Urine Appearance CLEAR (CLEAR) Urine pH 6.0 (4.5-7.5) Urine Specific [place]ne 1.036 (1.000-1.030) Urine Protein NEG (NEG) Urine Glucose (UA) 3+ (NEG) Urine Ketones 1+ (NEG) Urine Occult Blood 1+ (NEG) Urine Nitrite POS (NEG) Urine Bilirubin NEG (NEG) Urine Urobilinogen NEG (NEG) Urine Leukocyte Esterase TRACE (NEG) Urine WBC (Auto) >30 /hpf (0-5) Urine RBC (Auto) 5-10 /hpf (0-4) Urine Hyaline Casts (Auto) 1-5 /lpf (0-5) Urine Epithelial Cells (Auto) 10-20 /lpf (0-5) Urine Bacteria (Auto) 2+ (NEG) Laboratory results reviewed by me. Medications Administered Medications (Trade) Dose Ordered Sig/Viviana Route Start Time Stop Time Status Last Admin Dose Admin Sodium Chloride 500 ml @ 999 mls/hr Q31M STAT IV 02/11/18 18:50 02/11/18 19:20 DC 02/11/18 18:50 999 MLS/HR Ampicillin Sodium/ Sulbactam Sodium 1500 mg/Sodium Chloride 54 ml @ 100 mls/hr NOW STAT IV 02/11/18 18:50 02/11/18 19:22 DC 02/11/18 19:29 100 MLS/HR Sodium Chloride 500 ml @ 999 mls/hr Q31M STAT IV 02/11/18 20:41 02/11/18 21:11 DC 02/11/18 20:41 999 MLS/HR Insulin Human Regular (novoLIN-R U-100 PER UNIT) 10 units NOW STAT IV 02/11/18 20:53 02/11/18 20:54 DC 02/11/18 21:09 10 UNITS Aztreonam 2000 mg/ Dextrose 110 ml @ 100 mls/hr NOW STAT IV 02/11/18 20:53 02/11/18 21:58 DC 02/11/18 21:09 100 MLS/HR Morphine Sulfate (MoRPHine SULFATE INJ) 4 mg NOW STAT IV 02/11/18 20:58 02/11/18 20:59 DC 02/11/18 21:10 4 MG Ondansetron HCl (Zofran Inj) 4 mg NOW STAT IV 02/11/18 20:58 02/11/18 20:59 DC 02/11/18 21:09 4 MG Magnesium Sulfate (Magnesium Sulfate 1gm / D5W) 2 gm NOW STAT IV 02/11/18 21:49 02/11/18 21:50 DC 02/11/18 22:00 2 GM Procedure Incision & Drainage Indication: Abscess. Location: Vagina Verbal consent was obtained after the risks and benefits were explained, including but not limited to bleeding, scarring, infection, pain, and bone/joint /nerve damage. At this time, the risks of the procedure are less than the risks of NOT performing the procedure. A time out was taken and the correct patient and site identified. The skin was prepped with betadine and a sterile field set. The wound was anesthetized with 5 ml of 1% lidocaine without epinephrine. The abscess cavity was entered with a number 11 blade and 0 material expressed. The wound was explored for foreign bodies and none found. Debridement was not performed. Packing placed and a sterile dressing applied. Detailed wound care instructions and signs and symptoms of worsening infection reviewed with the patient. No complications and the patient tolerated the procedure well. ECG Per My Interpretation Indication: other (vaginal pain) Rate (beats per minute): 115 Rhythm: atrial fibrillation Findings: no ectopy, other (nonspecific ST change, no ST elevation) Comparison ECG Date: 12/17/17 Change: The rate has increased compared to prior ED Course 1847: The patient was evaluated in room A10. A complete history and physical exam was performed. 0: Ordered Ampicillin Sodium/Sulbactam Sodium 1500 mg Sodium Chloride 54 ml @ 100 mls/hr, Sodium Chloride 500 ml @ 999 mls/hr IV 2040: Ordered Sodium Chloride 500 ml @ 999 mls/hr IV 2052: Ordered Aztreonam 2000 mg/Dextrose 110 ml @ 100 mls/hr IV, Insulin Human Regular 10 units IV 2054: I checked on the patient at this time and informed her that I am going to try and drain her wound with a nuclear licensing engineer present. 2057: Ordered Zofran Inj 4 mg IV, Morphine Sulfate 4 mg IV 2099: Ordered Lidocaine HCL 20 ml INFIL 2127: I drained the patient's wound at this time. 2143: Discussed the patient's case with Dr. Gallagher, CLINICAL TRIAL EDUCATOR. He states that he will see the patient in consult. 2148: Magnesium Sulfate 2 gm IV Medical Decision Differential diagnosis: Etiologies such as vaginal cellulitis, labial abscess, immunocompromise, coagulopathy, dehydration, renal failure, electrolyte imbalance, as well as others were entertained. There is no leukocytosis or concerning anemia. Renal panel testing shows a low magnesium, she is quite hyperglycemic with a sugar in the 400s. Sodium was somewhat low. There were a few scattered liver enzyme elevations. The patient appears to be in a euthyroid state. Lactic acid level was elevated consistent with infection and/or dehydration. Urinalysis is consistent with infection. Urine culture, blood cultures are pending. EKG showed A. fib with no acute ischemic change. INR was subtherapeutic for someone using Coumadin. The patient presents with left vaginal pain. She had what appeared to be an abscess along the left vaginal labia. I did attempt drainage without success as noted above. Packing was placed though in the area where the drainage had been attempted. Patient received IV saline. She was given IV insulin. She received IV Unasyn and IV aztreonam. She was given IV morphine for pain, IV Zofran for nausea. She received IV magnesium. I do think a hospital stay is warranted. The patient is immunocompromised. She is hyperglycemic, dehydrated. Her magnesium is quite low. She has a labial infection that will require IV antibiotics. I did discuss the case with VACCINE MANAGER. No emergent intervention by them this evening was felt warranted. I spoke to the patient and case management. The on-call hospitalist was consulted. Patient is currently resting comfortably. Repeat BSG is 259. Medication Reconcilliation Current Medication List: was personally reviewed by me Blood Pressure Screening Patient's blood pressure: Elevated blood pressure Blood pressure disposition: Elevated BP felt to be situational Consults Time Called: 2137 Consulting Physician: Dr. Gallagher, CLINICAL TRIAL EDUCATOR Returned Call: 2143 Discussed the patient's case with Dr. Gallagher, CLINICAL TRIAL EDUCATOR. He states that he will see the patient in consult. Additional Consults: Time Called: 2150 Consulted Physician: Dr. Jeffery Ruiz, [facility] Hospitalist Returned Call: 2150 Additional Comments: Discussed the patient's case with Dr. Jeffeyr Ruiz, [facility] Hospitalist. The patient will be evaluated for further management. Impression Primary Impression: Hyperglycemia Additional Impressions: Dehydration Immunocompromised UTI (urinary tract infection) Hypomagnesemia Cellulitis Scribe Attestation The scribe's documentation has been prepared under my direction and personally reviewed by me in its entirety. I confirm that the note above accurately reflects all work, treatment, procedures, and medical decision making performed by me. Departure Information Dispostion Being Evaluated By Hospitalist (Dr. Jeffery Ruiz, [facility] Hospitalist) Referrals Madison Vivar M.D. (PCP) Patient Instructions My [facility] Problem Qualifiers Additional Impressions: UTI (urinary tract infection) Urinary tract infection type: site unspecified Hematuria presence: without hematuria Qualified Codes: N39.0 - Urinary tract infection, site not specified
[2018-02-11] MEDS ORDERED: GLUCOSE 10 TABS/TUBE PO PRN (19:15)
[2018-02-11] MEDS ORDERED: GLUCOSE 40% GEL 15 GM TUBE PO PRN (19:15)
[2018-02-11] MEDS ORDERED: GLUCAGON FOR INJ 1 MG VIAL SQ PRN (19:15)
[2018-02-11 19:38] LABS: HEMATOCRIT 39.5 % (37-47); HEMOGLOBIN 13.2 g/dL (12.0-16.0); MEAN CORPUSCULAR HEMOGLOBIN 25.7 pg (25-34); MEAN CORPUSCULAR HGB CONC 33.4 g/dl (32-36); NUCLEATED RED BLOOD CELL ABS 0.05 K/uL (0-0); PLATELET COUNT 119 K/uL (130-400); RED CELL DISTRIBUTION WIDTH CV 21.6 % (11.5-14.5)
[2018-02-11 19:53] LABS: INR 1.3 (0.9-1.1); PTT PATIENT 27.8 SECONDS (21.0-31.0)
[2018-02-11 20:46] LABS: ALBUMIN 3.2 gm/dl (3.4-5.0); CALCIUM 9.2 mg/dl (8.5-10.1); CREATININE 1.08 mg/dl (0.60-1.20); POTASSIUM 3.9 mmol/L (3.5-5.1); TOTAL PROTEIN 7.9 gm/dl (6.4-8.2)
[2018-02-11] MEDS ORDERED: AZTREONAM IV 2,000 MG in DEXTROSE 5% 100ML 100 ML IV STA (20:53)
[2018-02-11] MEDS ORDERED: NovoLIN-R INSULIN PER UNIT CHARGE IV STA (20:53)
[2018-02-11] MEDS ORDERED: ONDANSETRON INJ 2 MG/ML 2 ML VIAL IV STA (20:58)
[2018-02-11] MEDS ORDERED: MoRPHine SULFATE 4 MG/ML 1 ML CARP\\VIAL IV STA (20:58)
[2018-02-11] MEDS ORDERED: LIDOCAINE 1% BUFFERED INJ 5 ML VIAL INFIL ONE (21:00)
[2018-02-11] MEDS ORDERED: MAGNESIUM SULFATE 1GM / D5W 1 GM BAG IV STA (21:49)
[2018-02-11] MEDS ORDERED: INSU1.2I SQ (22:10)
[2018-02-11] MEDS ORDERED: OXYC-57 PO (22:17)
[2018-02-11] MEDS ORDERED: CMD5 PO (22:21)
[2018-02-11] MEDS ORDERED: CMD25 PO (22:22)
[2018-02-11] MEDS ORDERED: ALUMINUM/MAGNESIUM/SIMETH (MAALOX MAX) 30 ML UDC PO PRN (23:15)
[2018-02-11] MEDS ORDERED: POLYETHYLENE (MIRALAX) 17 GM PACK PO PRN (23:15)
[2018-02-11] MEDS ORDERED: CARBOHYDRATES FOR HYPOGLYCEMIA PO PRN (23:15)
[2018-02-11] MEDS ORDERED: FUROSEMIDE 20 MG TAB PO PRN (23:15)
[2018-02-11] MEDS ORDERED: MAGNESIUM HYDROXIDE SUSP 30 ML UDC PO PRN (23:15)
[2018-02-11] MEDS ORDERED: ALBUTEROL HFA 8 GM INHALER INH PRN (23:15)
[2018-02-11] MEDS ORDERED: NITROGLYCERIN 0.4 MG SL PER TAB CHARGE SL PRN (23:15)
[2018-02-11] MEDS ORDERED: ONDANSETRON INJ 2 MG/ML 2 ML VIAL IV PRN (23:15)
[2018-02-11] MEDS ORDERED: POTASSIUM CHLORIDE 10 MEQ TABCR PO PRN (23:15)
[2018-02-11] MEDS ORDERED: FAMOTIDINE 20 MG TAB PO PRN (23:15)
--- NOTE | 2018-02-11 23:32 | History and Physical ---
History & Physical Date & Time of Service: February 11, 2018 at 23:27 Chief Complaint: Pain In [place] Run[place] Fever Primary Care Physician: No Doctor, Assigned History of Present Illness Source: patient 51 yo F with PMHx of a.fib, DM II, HTN, HLD, hypothyroidism, asthma, metastatic colon cancer s/p colectomy w/ ostomy on 10/18 and s/p ostomy reversal on 11/[address] Rogers and lung nodules currently on chemotherapy, ANA on CPAP , morbid obesity and depression who presents with a 1 week history of growing bump on her left labia causing worsening pain. Patient notes that she first noted the swelling ~ 1week ago. She has lost much of her pubic hair and attributed this to an ingrown hair. However, the pain has worsened to the point that ambulation is painful, and she is feeling consistently sore. She states she prefers to avoid pain medication and is not allowed to apply heat or ice due to her chemotherapy. She called her PCP who was not able to see her until tomorrow and thus came to the ER as the pain was unbearable. Patient denies pain elsewhere- no abdominal or flank pain. She has abdominal infection in the past but is unable to describe if she completed treatment for this. She denies urinary symptoms. She states she does where pull ups because of intermittent fecal incontinence secondary to her surgery. When asking about her DM control, she states she is usually compliant with her medication, although she admits she did not take her medication this morning. She states significant reduction in her appetite and ongoing weight loss. Her chemotherapy is biweekly, and due again this . She has had 6 sessions thus far, and states she is to have chemo for 6 months. Secondary to chemo, she admits to fatigue and left arm pain from a shot given to her for low white cell counts. She otherwise states compliance to her other medications. Patient otherwise denies fevers/chills, headaches, CP, palpitations, dyspnea, abdominal pain, lower extremity swelling or rashes. She has no nausea or vomiting, uses wheel chair to ambulate outside of home at baseline, and is voiding and stooling appropriately. In the ER, vital signs were stable, labs revealed CBC WNL, subtherapeutic INR, glucose level 443, elevated lactic acid. She was given IV aztreonam, IV Unasyn, IV insulin, IVF. I&D was attempted but no purulent material was expressed. Gyne was consulted. ROS is unremarkable except as noted above. Past Medical/Surgical History Medical Problems: asthma metastatic colon cancer to lung a.fib on Coumadin DM II HTN HLD hypothyroidism ANA on CPAP morbid obesity depression Surgical Problems: History of carpal tunnel surgery History of hysterectomy History of tonsillectomy and adenoidectomy History of tubal ligation Hx of total knee arthroplasty s/p colectomy and ostomy site on 10/18/[address] Rogers s/p ostomy reversal on 11/13/[address] Rogers s/p bronchoscopy on 11/08/[address] Delatorre Family History Diabetes mellitus FH: heart disease FH: lung disease Hypertension Seizures Non contributory Social History Smoking Status: Never Smoker Smokeless Tobacco Use: No Alcohol Use: none Drug Use: none Marital Status: Housing status: lives with family Occupational Status: disabled Immunizations History of Influenza Vaccine: Unknown Influenza Vaccine Date: Jun 19, 2011 History of Tetanus Vaccine?: Yes History of Pneumococcal: Yes Pneumococcal Date: February 23, 2011 History of Hepatitis B Vaccine: Yes Allergies Coded Allergies: Daptomycin (Verified Allergy, Severe, SHORTNESS OF BREATH, 12/15/17) 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 Clindamycin (Verified Allergy, Intermediate, HIVES, 12/15/17) Sulfa Antibiotics (Verified Allergy, Intermediate, BACTRIM-HIVES, 12/15/17) Vancomycin (Verified Allergy, Intermediate, RASH, 12/15/17) BEE STING (Verified Allergy, Unknown, HIVES, 12/15/17) Trimethoprim (Verified Allergy, Unknown, HIVES, 12/15/17) Dulaglutide (Verified Adverse Reaction, Severe, BRAND-TRULICITY, SEVERE GI UPSET, CONSTIPATION, 12/15/17) Home Medications Scheduled Atorvastatin (Lipitor), 20 MG PO HS Cholestyramine (Bulk) (Cholestyramine), 1 PKT DAILY Fluticasone Furoate-Vilanterol (Breo Ellipta 200-25 Mcg/INH), 1 PUFF INH QAM Insulin Aspart (Novolog), UNITS SQ TIDM Insulin Glargine (Toujeo Solostar), 9 UNITS SQ QAM Ipratropium-Albuterol (Combivent Respimat), 1 PUFFS INH QID Lactobacillus Acidophilus (Lactinex), 4 TAB PO TID Levothyroxine Sodium (Levothyroxine Sodium), 1,200 MCG PO DAILY Loratadine (Claritin), 10 MG PO QAM Magnesium Oxide (Mag-Ox), 400 MG PO DAILY Metoprolol Succinate (Toprol Xl), 25 MG PO DAILY Montelukast Sod (Montelukast Sodium), 10 MG PO HS Warfarin Sod (Coumadin), 5 MG PO Q2D Warfarin Sod (Coumadin), 2.5 MG PO Q2D Scheduled PRN Albuterol Hfa (Ventolin Hfa), 2-4 PUFFS INH Q6H PRN for ASTHMA Famotidine (Pepcid), 20 MG PO DAILY PRN for GI UPSET Furosemide (Lasix), 20 MG PO QAM PRN for FLUID OVERLOAD Ondansetron Hcl (Zofran), 8 MG PO Q6 PRN for Nausea Oxycodone/Acetaminophen 5MG/325MG (Percocet 5MG/325MG), 1 TAB PO BID PRN for Pain Potassium Chloride (Micro-K Ext Rel), 10 MEQ PO QAM PRN for ONLY WHEN LASIX IS TAKEN Physical Exam Vital Signs Date Time Temp Pulse Resp B/P (MAP) Pulse Ox O2 Delivery O2 Flow Rate FiO2 02/11/18 22:31 85 109/74 96 Room Air 02/11/18 22:01 90 115/85 98 02/11/18 21:52 89 16 120/80 96 Room Air 02/11/18 21:07 81 02/11/18 20:18 81 16 112/81 94 Room Air 02/11/18 18:39 36.4 113 18 117/76 94 Room Air General Appearance: WD/WN, + mild distress (secondary to pain) Head: normocephalic, atraumatic Eyes: sclerae normal ENT: hearing grossly normal, pharynx normal Neck: supple Respiratory/Chest: no respiratory distress, no accessory muscle use, + decreased breath sounds (poor inspiratory effort\) Cardiovascular: normal peripheral pulses, + tachycardia, + systolic murmur ( right sternal border), + irregularly irregular Abdomen/GI: normal bowel sounds, non tender, soft, + pertinent finding (well healed scars on abdomen. Panus, with moist skin underneath, but no active wound or cellulitis visible) Genitourinary - Female: + pertinent finding (Significant erythema and swelling of left labia. Dressing lightly blood stained. No active drainage or bleeding. Very tender to light touch) Extremities/Musculoskelatal: no calf tenderness, no pedal edema Neurologic/Psych: alert, + depressed affect Skin: + pertinent finding (scars and wound as described above) Diagnostics Laboratory Results Results Past 24 Hours Test 02/11/18 19:15 02/11/18 19:25 02/11/18 20:29 Range/Units White Blood Count 10.20 4.8-10.8 K/uL Red Blood Count 5.13 4.2-5.4 M/uL Hemoglobin 13.2 12.0-16.0 g/dL Hematocrit 39.5 37-47 % Mean Corpuscular Volume 77.0 80-100 fL Mean Corpuscular Hemoglobin 25.7 25-34 pg Mean Corpuscular Hemoglobin Concent 33.4 32-36 g/dl Platelet Count 119 130-400 K/uL Mean Platelet Volume 9.0 7.4-10.4 fL RDW Standard Deviation 57.0 36.4-46.3 fL RDW Coefficient of Variation 21.6 11.5-14.5 % Nucleated RBC Absolute Count (auto) 0.05 0-0 K/uL Neutrophils % (Manual) 52.6 % Lymphocytes % (Manual) 18.4 % Variant Lymphocytes % (manual) 1.8 % Monocytes % (Manual) 23.7 % Basophils % (Manual) 2.6 % Myelocytes % 0.9 % Nucleated Red Blood Cells % 0.5 % Neutrophils # (Manual) 5.37 1.4-6.5 K/uL Total Absolute Neutrophils 5.37 1.4-6.5 K/uL Lymphocytes # (Manual) 1.88 1.2-3.4 K/uL Absolute Variant Lymphocytes 0.18 K/uL Total Absolute Lymphocytes 2.06 1.2-3.4 K/uL Monocytes # (Manual) 2.42 0.11-0.59 K/uL Basophils # (Manual) 0.27 0-0.2 K/uL Myelocytes # 0.09 0-0 K/uL Toxic Granulation 2+ Dohle Bodies 1+ Microcytosis PRESENT Prothrombin Time 13.3 9.0-12.0 SECONDS Prothromb Time International Ratio 1.3 0.9-1.1 Activated Partial Thromboplast Time 27.8 21.0-31.0 SECONDS Partial Thromboplastin Ratio 1.1 Sodium Level 130 136-145 mmol/L Potassium Level 3.9 3.5-5.1 mmol/L Chloride Level 95 98-107 mmol/L Carbon Dioxide Level 24 21-32 mmol/L Anion Gap 11.0 3-11 mmol/L Blood Urea Nitrogen 14 7-18 mg/dl Creatinine 1.08 0.60-1.20 mg/dl Est Creatinine Clear Calc Drug Dose 54.2 ml/min Estimated GFR () 67.4 Estimated GFR (Non- 58.2 BUN/Creatinine Ratio 13.1 10-20 Random Glucose 443 70-99 mg/dl Calcium Level 9.2 8.5-10.1 mg/dl Magnesium Level 1.4 1.8-2.4 mg/dl Total Bilirubin 1.5 0.2-1 mg/dl Aspartate Amino Transf (AST/SGOT) 19 15-37 U/L Alanine Aminotransferase (ALT/SGPT) 14 12-78 U/L Alkaline Phosphatase 154 45-117 U/L Total Protein 7.9 6.4-8.2 gm/dl Albumin 3.2 3.4-5.0 gm/dl Globulin 4.7 2.5-4.0 gm/dl Albumin/Globulin Ratio 0.7 0.9-2 Beta-Hydroxybutyric Acid 6.17 0.2-2.81 mg/dL Thyroid Stimulating Hormone (TSH) 2.080 0.300-4.500 uIu/ml Free Thyroxine 3.03 0.80-1.60 ng/dl Lactic Acid Level 3.1 0.4-2.0 mmol/L Urine Color YELLOW Urine Appearance CLEAR CLEAR Urine pH 6.0 4.5-7.5 Urine Specific Orange 1.036 1.000-1.030 Urine Protein NEG NEG Urine Glucose (UA) 3+ NEG Urine Ketones 1+ NEG Urine Occult Blood 1+ NEG Urine Nitrite POS NEG Urine Bilirubin NEG NEG Urine Urobilinogen NEG NEG Urine Leukocyte Esterase TRACE NEG Urine WBC (Auto) >30 0-5 /hpf Urine RBC (Auto) 5-10 0-4 /hpf Urine Hyaline Casts (Auto) 1-5 0-5 /lpf Urine Epithelial Cells (Auto) 10-20 0-5 /lpf Urine Bacteria (Auto) 2+ NEG Microbiology Results 02/11/18 Blood Culture, Received Pending 02/11/18 Blood Culture, Received Pending 02/11/18 Urine Culture, Received Pending Diagnostic Radiology CT SCAN OF THE ABDOMEN AND PELVIS WITHOUT CONTRAST CLINICAL HISTORY: Labial abscess EVALUATE FOR FISTULA COMPARISON STUDY: 12/15/2017 TECHNIQUE: CT scan of the abdomen and pelvis was performed from the lung bases to the proximal femurs. Images are reviewed in the axial, sagittal, and coronal planes. IV contrast was not administered for this examination. A dose lowering technique was utilized adhering to the principles of ALARA. CT DOSE: 1478.94 mGy.cm FINDINGS: Lower chest: Postsurgical changes are present at the left lung base. There is left basilar atelectatic change. Liver: The unenhanced liver is normal in size, contour, and attenuation. There is no intrahepatic biliary ductal dilatation. Gallbladder: Unremarkable. Spleen: Normal in size and attenuation. Pancreas: Unremarkable. Adrenal glands: Unremarkable. Kidneys: The unenhanced kidneys are normal in size without hydronephrosis. There is no contour deforming renal mass lesion. No renal calculi are identified. Bowel: There are no transition zones indicate bowel obstruction. There are postsurgical changes present within the right lower quadrant. There is a 10.6 cm fluid collection within the right abdominal wall. This extends to the skin surface. An abscess cannot be excluded. Clinical correlation is advocated. There are postsurgical changes involving the rectum. There is presacral soft tissue thickening and infiltration of the perirectal fat. There are no fluid collections to indicate a drainable abscess. Evaluation for a fistula is limited given the lack of intravenous and oral contrast. Peritoneum: There is no intraperitoneal free air or abdominal ascites. Vasculature: The abdominal aorta is normal in course and caliber. Adenopathy: Inguinal and iliac lymph nodes remain borderline enlarged. Pelvic viscera: The uterus appears surgically absent. There is infiltration the perirectal fat and presacral soft tissues as described above. Skeletal structures: No destructive osseous lesions are seen. IMPRESSION: 1. Postsurgical changes of a presumed low anterior resection and reversal of the right lower quadrant loop ileostomy 2. 10 cm right lower quadrant abdominal wall fluid collection. Clinical correlation to exclude abscess is recommended. 3. Infiltration of the perirectal fat and presacral soft tissue thickening. There are no fluid collections to indicate a drainable abscess. Evaluation for fistula is limited given the lack of intravenous and oral contrast 4. No evidence of bowel obstruction. No evidence of free air 5. Borderline enlarged iliac and inguinal lymph nodes unchanged from the preceding study. Impression Assessment and Plan 51 yo F with PMHx of a.fib, DM II, HTN, HLD, hypothyroidism, asthma, metastatic colon cancer s/p colectomy w/ ostomy on 10/18 and s/p ostomy reversal on 11/[address] Rogers and lung nodules currently on chemotherapy, ANA on CPAP , morbid obesity and depression who presents with a 1 week history painful labial cellulitis and admitted with uncontrolled DM on background of immunosuppression. Labial cellulitis - s/p attempted I&D with packing in ED - Empiric coverage with ceftriaxone - Blood Cx pending - Consulted gyne - Pain mx: Percocet (home med) + morphine PRN Concern for intra-abdominal infection - CT abdo/pelvis: 10 cm right lower quadrant abdominal wall fluid collection. Concern for abscess. Also infiltration of the perirectal fat and presacral soft tissue thickening. - Empiric coverage with Zosyn - Blood Cx pending - General surgery consulted UTI - UA positive with blood, nitrate, leuks and bacteria. Patient asymptomatic - Coverage with ceftriaxone, as above - Urine Cx pending Uncontrolled DM II - last HbA1c 10/18 was 10.3 - Lantus 12units BID + ISS with checks ac/hs HypoNa+ - IVF NSS @ 75cc/hr - Trend BMP Hyperbilirubinemia - Unsure of cause, was previously also elevated 09/16 - Liver WNL on CT - Continue cholestyramine - Trend LFTs Metastatic colon cancer with lung nodules - known to oncologist, Dr. Quintana - Continue probiotics and nystatin HTN, HLD, A.fib - Continue metoprolol, furosemide, atorvastatin - Hold warfarin (subtherapeutic INR on admission 1.3) and placed on heparin drip for easy reversal in case of need for procedural intervention Hypothyroidism- TSH WNL - Continue levothyroxine (records confirm dose of 1200mcg daily) ANA, asthma - stable - Continue albuterol, Combivent, montelukast - Continue CPAP overnight GERD - Continue pantoprazole, ranitidine VTE ppx -SCDs - Hep drip, as above Code: FULL Attending addendum: I have physically seen this patient, have supervised the medical residents activities, and agree with the H&P unless as otherwise noted. Assessment and Plan: Left genital labial cellulitis/UTI-- Status post I&D in the ED. Follow wound and blood cultures. Percocet as needed moderate pain Morphine IV as needed severe pain Consult gynecology. History of intra-abdominal phlegmon/ Noted on repeat CT of 10 cm in length. Empiric coverage with Zosyn IV Follow blood cultures. Consult general surgery. Diabetes mellitus-- Place on Lantus 12 units subcu twice daily. Placed on Accu-Cheks before meals and at bedtime with NovoLog coverage per scale Atrial fibrillation/hypertension-- Continue outpatient dosing of metoprolol with hold parameters Continue furosemide. Hold warfarin, which is presently subtherapeutic, and start on heparin infusion for weight-based protocol without bolus. Serial BMP and magnesium levels. Remainder of orders as above. Advanced Directives Existing Advance Directive: No Existing Living Will: No Existing Power of Gum Scoring Machine Operator: No Resuscitation Status FULL VTE Prophylaxis Will order VTE Prophylaxis: Yes Social Service Consult None Apply Resident Tracking Resident Involvement: Resident Care Provided Care Provided: Adult Hospital Medicine
[2018-02-12] VITALS (7 sets, daily range): BP systolic 99–141; BP diastolic 69–87; PULSE 74–117; TEMP 36.3–37.4; O2SAT 94–99; Ht 152.4 cm; Wt 81.0 kg
[2018-02-12] MEDS ORDERED: SODIUM CHLORIDE 0.9% 1000ML 1,000 ML IV SCH (01:00)
[2018-02-12] MEDS ORDERED: HEPARIN 25,000 UNIT/500ML D5W 500 ML IV SCH (01:45)
[2018-02-12] MEDS ORDERED: CEFTRIAXONE SOD INJ 1,000 MG in DEXTROSE 5% 50ML 50 ML IV SCH (02:00)
[2018-02-12] MEDS: LEVOTHYROXINE 200 MCG TAB PO SCH (06:18)
--- NOTE | 2018-02-12 07:02 | DIAGNOSTIC IMAGING REPORT ---
CT SCAN OF THE ABDOMEN AND PELVIS WITHOUT CONTRAST CLINICAL HISTORY: Labial abscess EVALUATE FOR FISTULA COMPARISON STUDY: 12/15/2017 TECHNIQUE: CT scan of the abdomen and pelvis was performed from the lung bases to the proximal femurs. Images are reviewed in the axial, sagittal, and coronal planes. IV contrast was not administered for this examination. A dose lowering technique was utilized adhering to the principles of ALARA. CT DOSE: 1478.94 mGy.cm FINDINGS: Lower chest: Postsurgical changes are present at the left lung base. There is left basilar atelectatic change. Liver: The unenhanced liver is normal in size, contour, and attenuation. There is no intrahepatic biliary ductal dilatation. Gallbladder: Unremarkable. Spleen: Normal in size and attenuation. Pancreas: Unremarkable. Adrenal glands: Unremarkable. Kidneys: The unenhanced kidneys are normal in size without hydronephrosis. There is no contour deforming renal mass lesion. No renal calculi are identified. Bowel: There are no transition zones indicate bowel obstruction. There are postsurgical changes present within the right lower quadrant. There is a 10.6 cm fluid collection within the right abdominal wall. This extends to the skin surface. An abscess cannot be excluded. Clinical correlation is advocated. There are postsurgical changes involving the rectum. There is presacral soft tissue thickening and infiltration of the perirectal fat. There are no fluid collections to indicate a drainable abscess. Evaluation for a fistula is limited given the lack of intravenous and oral contrast. Peritoneum: There is no intraperitoneal free air or abdominal ascites. Vasculature: The abdominal aorta is normal in course and caliber. Adenopathy: Inguinal and iliac lymph nodes remain borderline enlarged. Pelvic viscera: The uterus appears surgically absent. There is infiltration the perirectal fat and presacral soft tissues as described above. Skeletal structures: No destructive osseous lesions are seen. IMPRESSION: 1. Postsurgical changes of a presumed low anterior resection and reversal of the right lower quadrant loop ileostomy 2. 10 cm right lower quadrant abdominal wall fluid collection. Clinical correlation to exclude abscess is recommended. 3. Infiltration of the perirectal fat and presacral soft tissue thickening. There are no fluid collections to indicate a drainable abscess. Evaluation for fistula is limited given the lack of intravenous and oral contrast 4. No evidence of bowel obstruction. No evidence of free air 5. Borderline enlarged iliac and inguinal lymph nodes unchanged from the preceding study. Electronically signed by: Cameron Browning M.D. 02/12/2018 7:01 AM Dictated Date/Time: 02/12/2018 6:52 AM
[2018-02-12] MEDS ORDERED: PIPERACILL/TAZOBAC CONSULT ACTIVE PRN (07:15)
[2018-02-12 07:44] LABS: HEMATOCRIT 34.6 % (37-47); HEMOGLOBIN 11.4 g/dL (12.0-16.0); MEAN CELL VOLUME 76.4 fL (80-100); MEAN CORPUSCULAR HEMOGLOBIN 25.2 pg (25-34); MEAN CORPUSCULAR HGB CONC 32.9 g/dl (32-36); MEAN PLATELET VOLUME 8.8 fL (7.4-10.4); PLATELET COUNT 100 K/uL (130-400); RED CELL DISTRIBUTION WIDTH CV 21.5 % (11.5-14.5); RED CELL DISTRIBUTION WIDTH SD 57.1 fL (36.4-46.3)
[2018-02-12] MEDS: OXYCODONE/ACETAMINOPHEN 5-325 TAB PO PRN ×2 (07:44→21:13)
[2018-02-12] MEDS ORDERED: PIPERACILL/TAZOBAC IV 3.375 GM in DEXTROSE 5% 100ML 100 ML IV ONE (07:45)
[2018-02-12] MEDS: NYSTATIN SUSP 500,000 U/5 ML UDC PO SCH ×4 (07:51→21:14)
[2018-02-12] MEDS: IPRATROPIUM BROMIDE/ALBUTEROL respimat INH INH SCH ×4 (07:52→21:13)
[2018-02-12] MEDS: METOPROLOL SUCC 50MG EXT REL TAB PO SCH (07:53)
[2018-02-12] MEDS: MAGNESIUM OXIDE 400 MG TAB PO SCH (07:54)
[2018-02-12] MEDS: LACTOBACILLUS ACIDOPHILUS (FLORANEX) TAB PO SCH ×3 (07:54→21:13)
[2018-02-12] MEDS: LORATADINE 10 MG TAB PO SCH (07:54)
[2018-02-12] MEDS: CHOLESTYRAMINE LIGHT 4 GM PKT PO SCH (07:55)
[2018-02-12] MEDS: INSULIN ASPART 100 UNITS/ML 3 ML PEN SC SCH ×4 (07:59→21:00)
[2018-02-12] MEDS: INSULIN GLARGINE SOLOSTAR 100 UNITS/ML 3 ML PEN SC SCH ×2 (08:00→21:12)
[2018-02-12 08:05] LABS: INR 1.3 (0.9-1.1)
[2018-02-12 08:07] LABS: PTT PATIENT 56.2 SECONDS (21.0-31.0)
[2018-02-12 08:09] LABS: ALBUMIN 2.2 gm/dl (3.4-5.0); CALCIUM 7.8 mg/dl (8.5-10.1); CREATININE 0.67 mg/dl (0.60-1.20); POTASSIUM 3.8 mmol/L (3.5-5.1)
[2018-02-12 08:17] LABS: PHOSPHORUS 2.3 mg/dl (2.5-4.9)
--- NOTE | 2018-02-12 08:18 | GYNECOLOGICAL CONSULTATION ---
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 She tried to self-drain it by squeezing it and was unable to obtain a lot of drainage from it. She had some minimal bleeding. The pain increased. She started to feel unwell and presented to the ER. At that stage, she was showing some signs of systemic infection and she had a reddened and enlarged vulvar area. Dr. Aparicio in the ER attempted to drain it, however, there was no significant fluid drained from it. The patient is currently admitted in the ICU. PAST MEDICAL HISTORY: Her medical history is consistent with colon cancer and nodules in her lung. She is currently on chemotherapy she states since she has had the surgery for the colon cancer. PAST GYNECOLOGICAL HISTORY: Significant for hysterectomy. She believes her ovaries were conserved. She has not seen a photocopier technician in more than 10 years. PAST OBSTETRICAL HISTORY: Two prior vaginal births. PHYSICAL EXAMINATION: VITAL SIGNS: Her vital signs are stable. She is afebrile. GYNECOLOGICAL: Focused gynecological examination done with nursing. Her external genitalia are normal. The left vulva is significantly swollen. Palpating the left vulvar though there is no fluctuant mass, it is indurated, there is no collection of fluid or pus that I can palpate, it is tender on palpation. IMPRESSION AND PLAN: I do not believe she has a vulvar abscess. I believe she has an indurated infected vulva likely probably from her manipulation of it as well. Would recommend continuing on IV antibiotics and we will follow along.
[2018-02-12 08:26] LABS: BASO % 0.8 %; BASO ABS # 0.09 K/uL (0-0.2); EOS % 0.1 %; EOS ABS # 0.01 K/uL (0-0.5); IG# 0.55 K/uL (0.00-0.02); LYMPH % 28.5 %; LYMPH ABS # 3.16 K/uL (1.2-3.4); MONO % 14.6 %; MONO ABS # 1.62 K/uL (0.11-0.59); NEUT ABS # 5.67 K/uL (1.4-6.5)
[2018-02-12] MEDS ORDERED: SODIUM PHOSPHATE 3 MMOL/1 ML INFUSION IV STA (08:29)
[2018-02-12] MEDS ORDERED: SODIUM PHOSPHATE INJ 15 MMOL in SODIUM CHLORIDE 0.9% 250ML 250 ML IV ONE (08:45)
[2018-02-12] MEDS: MAGNESIUM SULFATE 1GM / D5W 100 ML IV SCH ×2 (09:32→10:42)
[2018-02-12 10:17] LABS: HEMOGLOBIN A1C 11.6 % (4.5-5.6)
--- NOTE | 2018-02-12 13:44 | Family Medicine Progress Note ---
Progress Note Date of Service February 12, 2018. Subjective Pt evaluation today including: conversation w/ patient, physical exam, chart review, lab review Pain: reports pain and pressure in vaginal region this AM PO Intake: tolerating Voiding: no voiding problems This AM pt reported persistent labial pain especially with increased pressure such as sitting. Otherwise denied any f/c, cp, sob, abdominal pain, n/v, or urinary symptoms. Diabetic hx also obtained for concern of elevated HgA1c in the setting of infection: pt reports not having much appetite and drinking non-diet soda and gatorade as a result. Pt reports eating certain fruits and trying to eat more greens however cooks and does not like vegetables. Occasionally eats out as well especially when out for chemo sessions/traveling. Reports checking blood sugars 2 x/day due to lack of Rx coverage on medicare plan. Checks before meals and gives herself SS based on chart provided in addition to 9 units of lantus daily. Pt knows poorly controlled diabetes can cause stroke however was not aware of further complications and was educated further along with provision of dietary recommendations. Constitutional: No fever, No chills Respiratory: No shortness of breath Cardiovascular: No chest pain Abdomen: No pain, No nausea, No vomiting Female : + problem reported (L labia majora pain), No dysuria, No hematuria Medications Current Inpatient Medications Medications (Trade) Dose Ordered Sig/Viviana Route Start Time Stop Time Status Last Admin Dose Admin Sodium Chloride 1,000 ml @ 75 mls/hr [id number] IV 02/12/18 01:00 03/14/18 00:59 02/12/18 01:44 75 MLS/HR Acetaminophen (Tylenol Tab) 650 mg Q4H PRN PO 02/11/18 23:15 03/13/18 23:14 Al Hydrox/Mg Hydrox/Simethicone (Maalox Max Susp) 15 ml Q4H PRN PO 02/11/18 23:15 03/13/18 23:14 Magnesium Hydroxide (Milk Of Magnesia Susp) 30 ml Q12H PRN PO 02/11/18 23:15 03/13/18 23:14 Ondansetron HCl (Zofran Inj) 4 mg Q6H PRN IV 02/11/18 23:15 03/13/18 23:14 Nitroglycerin (Nitrostat Tab) 0.4 mg UD PRN SL 5/14/18 23:15 03/13/18 23:14 Polyethylene (Miralax Powder Packet) 17 gm DAILY PRN PO 02/11/18 23:15 03/13/18 23:14 Albuterol (Ventolin Hfa Inhaler) 2 puffs Q4H PRN INH 02/11/18 23:15 03/13/18 23:14 Atorvastatin Calcium (Lipitor Tab) 20 mg HS PO 02/12/18 21:00 03/14/18 20:59 Famotidine (Pepcid Tab) 20 mg DAILY PRN PO 02/11/18 23:15 03/13/18 23:14 Furosemide (Lasix Tab) 20 mg QAM PRN PO 02/11/18 23:15 03/13/18 23:14 Albuterol/ Ipratropium (Combivent Respimat Inh) 1 puffs QID INH 02/12/18 09:00 03/14/18 08:59 02/12/18 12:03 1 PUFFS Lactobacillus Acidophilus (Floranex Tab) 4 tab TID PO 02/12/18 09:00 03/14/18 08:59 02/12/18 07:54 4 TAB Levothyroxine Sodium (Synthroid Tab) 1,200 mcg DAILYBB PO 02/12/18 06:00 03/14/18 05:59 02/12/18 06:18 1,200 MCG Loratadine (Claritin Tab) 10 mg QAM PO 02/12/18 09:00 03/14/18 08:59 02/12/18 07:54 10 MG Magnesium Oxide (Mag-Ox Tab) 400 mg DAILY PO 02/12/18 09:00 03/14/18 08:59 02/12/18 07:54 400 MG Metoprolol Succinate (Toprol Xl Tab) 25 mg DAILY PO 02/12/18 09:00 03/14/18 08:59 02/12/18 07:53 25 MG Montelukast Sodium (Singulair Tab) 10 mg HS PO 02/12/18 21:00 03/14/18 20:59 Oxycodone/ Acetaminophen (Percocet 5-325mg Tab) 1 tab BID PRN PO 02/11/18 23:15 02/25/18 23:14 02/12/18 07:44 1 TAB Potassium Chloride (Klor-Con M10) 10 meq QAM PRN PO 02/11/18 23:15 03/13/18 23:14 Cholestyramine Resin (Questran Powder Light) 4 gm DAILY PO 02/12/18 09:00 03/14/18 08:59 02/12/18 07:55 4 GM Miscellaneous Information (Order Awaiting Action) 1 ea QS N/A 02/12/18 08:00 03/14/18 07:59 Nystatin (Mycostatin Susp) 5 ml QID PO 02/12/18 09:00 03/14/18 08:59 02/12/18 12:03 5 ML Insulin Glargine (Lantus Solostar Pen) 12 units BID SC 02/12/18 09:00 03/14/18 08:59 02/12/18 08:00 12 UNITS Glucagon (Glucagon Inj) 1 mg UD PRN SQ 02/11/18 19:15 03/13/18 19:14 Glucose (Glucose 40% Gel) 15-30 GRAMS 15 GRAMS... UD PRN PO 02/11/18 19:15 03/13/18 19:14 Glucose (Glucose Chew Tab) 4-8 Tablets 4 Tabl... UD PRN PO 02/11/18 19:15 03/13/18 19:14 Carbohydrates (Carbohydrates For Hypoglycemia) 15-30 GRAMS 15 grams if BSG 54-69... UD PRN PO 02/11/18 23:15 03/13/18 23:14 Insulin Aspart (novoLOG ASPART) SLIDING SCALE If C... ACHS SC 02/12/18 07:00 03/14/18 06:59 02/12/18 12:02 19 UNITS Morphine Sulfate (MoRPHine SULFATE INJ) 3 mg Q2H PRN IV 02/11/18 23:30 02/25/18 23:29 Heparin Sodium/ Dextrose 500 ml @ 21 mls/hr [id number] IV 02/12/18 01:45 03/14/18 01:44 02/12/18 01:46 21 MLS/HR Miscellaneous Information (Consult) 1 ea UD PRN N/A 02/12/18 07:15 03/14/18 07:14 Piperacillin Sod/ Tazobactam Sod 3.375 gm/Dextrose 115 ml @ 28.75 mls/ hr Q8H IV 02/12/18 14:00 02/22/18 13:59 Objective Vital Signs Date Time Temp Pulse Resp B/P (MAP) Pulse Ox O2 Delivery O2 Flow Rate FiO2 02/12/18 12:00 Room Air 02/12/18 11:21 36.8 87 24 113/69 (84) 97 Room Air 02/12/18 08:00 Room Air 02/12/18 06:51 37.2 117 18 121/84 (96) 94 Room Air 02/12/18 04:00 Room Air 02/12/18 03:28 37.4 117 20 99/71 (80) 95 02/12/18 00:30 36.7 115 18 141/75 97 Room Air 02/12/18 00:03 89 16 141/98 97 02/11/18 23:31 120/84 02/11/18 23:30 109 27 120/84 94 02/11/18 23:01 141/83 02/11/18 23:00 100 24 141/83 97 02/11/18 22:31 85 109/74 96 Room Air 02/11/18 22:01 90 115/85 98 02/11/18 21:52 89 16 120/80 96 Room Air 02/11/18 21:07 81 02/11/18 20:18 81 16 112/81 94 Room Air 02/11/18 18:39 36.4 113 18 117/76 94 Room Air Physical Exam General Appearance: no apparent distress Eyes: normal inspection Neck: supple Respiratory/Chest: lungs clear, normal breath sounds Cardiovascular: regular rate, rhythm, no murmur Abdomen: normal bowel sounds, non tender, soft Extremities: non-tender, no pedal edema Neurologic/Psychiatric: alert, oriented x 3 Skin: + pertinent finding (L labia majora edema/erythema; s/p I&D with intact packing and minimal bleeding but no active drainage; no palpable fluctuance) Laboratory Results 02/12/18 07:27 Red Blood Count 4.53, Mean Corpuscular Volume 76.4, Mean Corpuscular Hemoglobin 25.2, Mean Corpuscular Hemoglobin Concent 32.9, Mean Platelet Volume 8.8, Neutrophils (%) (Auto) 51.0, Lymphocytes (%) (Auto) 28.5, Monocytes (%) (Auto) 14.6, Eosinophils (%) (Auto) 0.1, Basophils (%) (Auto) 0.8, Neutrophils # (Auto ) 5.67, Lymphocytes # (Auto) 3.16, Monocytes # (Auto) 1.62, Eosinophils # (Auto ) 0.01, Basophils # (Auto) 0.09 02/12/18 07:27 Test 02/11/18 19:15 02/11/18 20:29 02/12/18 01:18 02/12/18 07:27 Nucleated RBC Absolute Count (auto) 0.05 K/uL (0-0) Neutrophils % (Manual) 52.6 % Lymphocytes % (Manual) 18.4 % Variant Lymphocytes % (manual) 1.8 % Monocytes % (Manual) 23.7 % Basophils % (Manual) 2.6 % Myelocytes % 0.9 % Nucleated Red Blood Cells % 0.5 % Neutrophils # (Manual) 5.37 K/uL (1.4-6.5) Total Absolute Neutrophils 5.37 K/uL (1.4-6.5) Lymphocytes # (Manual) 1.88 K/uL (1.2-3.4) Absolute Variant Lymphocytes 0.18 K/uL Total Absolute Lymphocytes 2.06 K/uL (1.2-3.4) Monocytes # (Manual) 2.42 K/uL (0.11-0.59) Basophils # (Manual) 0.27 K/uL (0-0.2) Myelocytes # 0.09 K/uL (0-0) Microcytosis PRESENT Beta-Hydroxybutyric Acid 6.17 mg/dL (0.2-2.81) Thyroid Stimulating Hormone (TSH) 2.080 uIu/ml (0.300-4.500) Free Thyroxine 3.03 ng/dl (0.80-1.60) Urine Color YELLOW Urine Appearance CLEAR (CLEAR) Urine pH 6.0 (4.5-7.5) Urine Specific [place] 1.036 (1.000-1.030) Urine Protein NEG (NEG) Urine Glucose (UA) 3+ (NEG) Urine Ketones 1+ (NEG) Urine Occult Blood 1+ (NEG) Urine Nitrite POS (NEG) Urine Bilirubin NEG (NEG) Urine Urobilinogen NEG (NEG) Urine Leukocyte Esterase TRACE (NEG) Urine WBC (Auto) >30 /hpf (0-5) Urine RBC (Auto) 5-10 /hpf (0-4) Urine Hyaline Casts (Auto) 1-5 /lpf (0-5) Urine Epithelial Cells (Auto) 10-20 /lpf (0-5) Urine Bacteria (Auto) 2+ (NEG) Lactic Acid Level 2.1 mmol/L (0.4-2.0) White Blood Count 11.10 K/uL (4.8-10.8) Red Blood Count 4.53 M/uL (4.2-5.4) Hemoglobin 11.4 g/dL (12.0-16.0) Hematocrit 34.6 % (37-47) Mean Corpuscular Volume 76.4 fL (80-100) Mean Corpuscular Hemoglobin 25.2 pg (25-34) Mean Corpuscular Hemoglobin Concent 32.9 g/dl (32-36) Platelet Count 100 K/uL (130-400) Mean Platelet Volume 8.8 fL (7.4-10.4) Neutrophils (%) (Auto) 51.0 % Lymphocytes (%) (Auto) 28.5 % Monocytes (%) (Auto) 14.6 % Eosinophils (%) (Auto) 0.1 % Basophils (%) (Auto) 0.8 % Neutrophils # (Auto) 5.67 K/uL (1.4-6.5) Lymphocytes # (Auto) 3.16 K/uL (1.2-3.4) Monocytes # (Auto) 1.62 K/uL (0.11-0.59) Eosinophils # (Auto) 0.01 K/uL (0-0.5) Basophils # (Auto) 0.09 K/uL (0-0.2) RDW Standard Deviation 57.1 fL (36.4-46.3) RDW Coefficient of Variation 21.5 % (11.5-14.5) Immature Granulocyte % (Auto) 5.0 % Immature Granulocyte # (Auto) 0.55 K/uL (0.00-0.02) Toxic Granulation 1+ Dohle Bodies 1+ Anisocytosis PRESENT Prothrombin Time 13.7 SECONDS (9.0-12.0) Prothromb Time International Ratio 1.3 (0.9-1.1) Activated Partial Thromboplast Time 56.2 SECONDS (21.0-31.0) Partial Thromboplastin Ratio 2.2 Anion Gap 9.0 mmol/L (3-11) Est Creatinine Clear Calc Drug Dose 88.9 ml/min Estimated GFR () 115.5 Estimated GFR (Non- 99.7 BUN/Creatinine Ratio 15.7 (10-20) Calcium Level 7.8 mg/dl (8.5-10.1) Phosphorus Level 2.3 mg/dl (2.5-4.9) Magnesium Level 1.6 mg/dl (1.8-2.4) Total Bilirubin 1.1 mg/dl (0.2-1) Aspartate Amino Transf (AST/SGOT) 14 U/L (15-37) Alanine Aminotransferase (ALT/SGPT) 9 U/L (12-78) Alkaline Phosphatase 115 U/L (45-117) Troponin I 0.017 ng/ml (0-0.045) Total Protein 6.0 gm/dl (6.4-8.2) Albumin 2.2 gm/dl (3.4-5.0) Globulin 3.8 gm/dl (2.5-4.0) Albumin/Globulin Ratio 0.6 (0.9-2) Test 02/12/18 07:28 02/12/18 11:18 Estimated Average Glucose 286 mg/dl Hemoglobin A1c 11.6 % (4.5-5.6) Bedside Glucose 305 mg/dl (70-90) Assessment and Plan 51 yoF with hx of A fib, DM II, HTN, HLD, hypothyroidism, asthma, metastatic colon cancer s/p colectomy w/ ostomy on 10/18 and ostomy reversal on 11/[address] Rogers and lung nodules currently on chemotherapy, ANA on CPAP, morbid obesity and depression who presents with a 1 week history of painful labial cellulitis in the setting of poorly controlled DM and immunosuppression. Labial cellulitis - s/p I&D - remains afebrile with mildly elevated WBC of 11.1 - Blood Cx pending - Empiric Abx coverage with Zosyn - Percocet (home med) and morphine PRN - Consulted clinic scheduler: no drainable fluctuance; IV abx recommended Concern for intra-abdominal infection - benign exam, afebrile, mildly elevated WBC of 11.1 - CT abdo/pelvis: 10 cm right lower quadrant abdominal wall fluid collection. Concern for abscess. Also infiltration of the perirectal fat and presacral soft tissue thickening - Blood Cx pending - Empiric coverage with Zosyn - Surgery consulted: no concern for abdominal infection at this time; fluid collection likely consistent with abx beads placed UTI - UA positive with blood, nitrite, leuks and bacteria. Patient remains asymptomatic - Urine Cx pending - Zosyn will provide adequate coverage Uncontrolled DM II - HgbA1c today 11.6 and HgbA1c on 10/18 was 10.3 - Lantus 12units BID + ISS with checks ac/hs - thickened SS for elevated BS (252 this AM): goal 120-160 CF: 10; CHO ratio 1:8 - had an thorough discussion with patient regarding why it is important to improve control; recommended dietary changes and checking blood sugars more frequency; pt reported testing only twice due to lack of coverage for strips; pt navigator's helped obtained in confirming coverage. Hyponatremia - improved to 133 - Received NSS IVF - stopped for improved PO intake - Trend BMP Hypophosphatemia - repleted with sodium phosphate 15mmol Hypomagnesemia - repleted with 2g mag sulphate Hyperbilirubinemia - Unsure of cause, was previously also elevated 09/16 likely Gilbert's Disease - Liver WNL on CT - Continue cholestyramine 4g daily - Trend LFTs Metastatic colon cancer with lung nodules - Oncologist, Dr. Quintana - Continue probiotics and nystatin HTN, HLD, A.fib - Continue metoprolol, furosemide, atorvastatin - Subtherapeutic INR on admission 1.3 - Was placed on heparin drip for easy reversal in case of need for procedural intervention (stopped 02/12) - Restarted warfarin Hypothyroidism- TSH Wnl; Free T4 of 3 - Continue levothyroxine (records confirm dose of 1200mcg daily) ANA, asthma - stable - Continue albuterol, Combivent, montelukast - Continue CPAP overnight GERD - Continue pantoprazole, ranitidine VTE ppx: SCDs and warfarin Code: FULL Resident Physician Supervision Note: I interviewed and examined the patient. Discussed with Dr. Nickerson and agree with findings and plan as documented in the note. Any exceptions or clarifications are listed here: None Documented By: Lane Roman feeling better but still hurting a lot d/w surgery input appreciated labial cellulitis - abx, surgery following question of intraabdominal infection - thought to be from appearance from abx beads. surgery input ongoing DM - poor control as outpt; tighten insulins; likely relates at least in no small part to cause of her current infection DVT proph - warfarin otherwise as above Resident Tracking Resident Involvement: Resident Care Provided Care Provided: Adult Hospital Medicine
[2018-02-12] MEDS: PIPERACILL/TAZOBAC IV 3.375 GM in DEXTROSE 5% 100ML 100 ML IV SCH ×2 (13:48→21:19)
[2018-02-12] MEDS: ACETAMINOPHEN 325 MG TAB PO PRN (13:59)
[2018-02-12] MEDS ORDERED: WARFARIN SOD 5 MG TAB PO SCH (16:00)
--- NOTE | 2018-02-12 16:28 | SURGICAL CONSULTATION ---
DATE OF CONSULTATION: 02/12/2018 REASON FOR CONSULTATION: Rule out abdominal wall abscess and left labial cellulitis. HISTORY OF PRESENT ILLNESS: Luisa Bernard is a 52-year-old female who is well-known to me. I have performed a few procedures on Ms. Bernard. The patient had a colon cancer which was resected in a very difficult case by Dr. Vic Rogers. Unfortunately, because of her body stature and her morbid obesity, she broke down the ileostomy site which had been placed to protect her. She was taken back to the operating room and the wound was packed with antibiotic beads. This actually improved, although she opened up a bit more. Finally, I took her back to the operating room on 12/18/2017 and completely debrided this area and created quite a space, but then I packed it with calcium sulfate beads impregnated with antibiotics and pulled this and closed primarily. This settled down nicely and this incision looks very good. The patient was admitted to the medical service last night with pain in her left labial and pelvic area and running a fever. It is important to note that the patient has been on chemotherapy for her rectal carcinoma. I also performed a left thoracoscopy and wedged out a mass in the left lower lobe which turned out to be metastatic disease from her colorectal carcinoma. At any rate, she finally settled down and I recently saw her in the office and I felt very good about her discharge. She presented last night, had a fever, complaining of pain in her left arm and pain in her left inguinal and groin area. I saw her and I am not concerned whatsoever about her. Her abdominal incision looks so good. I am more concerned about her groin. Dr. Gallagher evaluated her from a gynecologic standpoint and felt that we should treat this with antibiotics. I discussed this with Dr. Gallagher. I elected to proceed with taking her to the operating room and open this as she is having so much pain. I think she probably does have a small abscess and I think draining this and packing her with the beads which had worked so well for her, would be helpful also. PAST MEDICAL HISTORY: See above. Family medical history, social history, and medications, please see chart. REVIEW OF SYSTEMS: The patient has been complaining of pain in her left arm secondary to a shot she received with chemotherapy. She has a port in her left infraclavicular area. She has had 6 cycles of chemotherapy. She denies any wound breakdown, otherwise. She is complaining of pain in her left labial area. She has had no GI or symptoms. Her bowels are actually moving well. She has felt febrile and her sugars are out of control when she comes in. She has had no neurologic signs such as amaurosis fugax, transient ischemic attacks. She denies palpitations, but is tachycardic. She does have a history of atrial fibrillation. She denies abdominal pain per se. PHYSICAL EXAMINATION: GENERAL: This is a 5 feet, 172-pound female who is awake and alert, although she appears to be a bit washed out. HEENT: She has evidence some mild candidiasis on her tongue and mouth. She has no erythema, no pain. Tongue is midline. Oral mucosa is a bit dry. NECK: Supple. I detect no supraclavicular or cervical lymphadenopathy. She really has any swelling in either arm. She does have a left infraclavicular Port-A-Cath which is well-healed. HEART: She has an irregularly irregular rhythm of her heart. Her heart rate is about 100. LUNGS: Her lungs are actually pretty clear. Her left thoracoscopy incisions are healed nicely. ABDOMEN: Her abdomen is soft and really nontender. Her midline incision in the lower abdomen is well-healed. Her right lower quadrant transverse incision has healed over completely. I really do not feel any fluctuance. EXTREMITIES: She has femoral pulses. GENITOURINARY: Her left labia is quite erythematous and tender and tense. It is difficult for me to say if there is an abscess there or we are dealing with a simply induration. It is very tender. She has no real lymphadenopathy. She has good peripheral pulses. She has no joint effusions. NEUROLOGIC: Neurologically, she is awake, alert, and oriented, although she is in pain. ASSESSMENT AND PLAN: 1. Questionable right lower quadrant abdominal wall abscess. I reviewed her CT scan quite closely and reviewed and evaluated her. This is not an abscess. My advice would be to simply leave this alone. This fluid will eventually resorb. It has antibiotics in it and there is no evidence of infection. 2. Left labial abscess. I discussed this with Dr. Gallagher. I have some concerns about her labia. I think to open this up and pack it with antibiotic beads would be helpful for her for 2 reasons. It would help her pain, give her local antibiotic therapy which would be quite helpful. I would be aggressive in trying to treat this as she will be undergoing chemotherapy. We will close it primarily over the beads. ALEXA
[2018-02-12] MEDS ORDERED: NURSING VERBAL MED ORDER ONE (18:00)
[2018-02-12] MEDS: ATORVASTATIN 20 MG TAB PO SCH (21:13)
[2018-02-12] MEDS: MONTELUKAST SOD 10 MG TAB PO SCH (21:14)
[2018-02-13] VITALS (11 sets, daily range): BP systolic 95–114; BP diastolic 65–85; PULSE 78–105; TEMP 36.3–37.1; O2SAT 94–100
[2018-02-13] MEDS: ACETAMINOPHEN 325 MG TAB PO PRN (02:13)
[2018-02-13 05:42] LABS: HEMATOCRIT 34.3 % (37-47); MEAN CELL VOLUME 77.6 fL (80-100); MEAN CORPUSCULAR HEMOGLOBIN 24.9 pg (25-34); MEAN CORPUSCULAR HGB CONC 32.1 g/dl (32-36); NUCLEATED RED BLOOD CELL ABS 0.04 K/uL (0-0); RED CELL DISTRIBUTION WIDTH CV 21.7 % (11.5-14.5); RED CELL DISTRIBUTION WIDTH SD 59.2 fL (36.4-46.3); WHITE BLOOD COUNT 11.31 K/uL (4.8-10.8)
[2018-02-13 05:52] LABS: INR 1.3 (0.9-1.1)
[2018-02-13] MEDS: LEVOTHYROXINE 200 MCG TAB PO SCH (05:56)
[2018-02-13 06:09] LABS: ALBUMIN 2.1 gm/dl (3.4-5.0); CALCIUM 8.2 mg/dl (8.5-10.1); CREATININE 0.69 mg/dl (0.60-1.20); POTASSIUM 3.5 mmol/L (3.5-5.1)
[2018-02-13 06:12] LABS: TOTAL PROTEIN 5.9 gm/dl (6.4-8.2)
[2018-02-13] MEDS: PIPERACILL/TAZOBAC IV 3.375 GM in DEXTROSE 5% 100ML 100 ML IV SCH ×2 (06:13→16:57)
--- NOTE | 2018-02-13 06:23 | Progress Note ---
Subjective Date of Service: February 13, 2018. Subjective Pt evaluation today including: conversation w/ patient (And RN at bedside), physical exam Pain: "it hurts and genao a lot." PO Intake: Cracker at 3am, sip of juice then also. NPO starting now for surgery Voiding: no voiding problems (using bedpan to avoid pain with urine hitting her labial wound) Problem List Medical Problems: (1) Abdominal pain Status: Acute (2) Abscess of labia majora Status: Acute (3) Acute vomiting Status: Acute (4) Cellulitis Status: Acute (5) Cellulitis of labia majora Status: Acute (6) Dehydration Status: Acute (7) Hyperglycemia Status: Acute (8) Hyperglycemia Status: Acute (9) Hyperglycemia due to type 2 diabetes mellitus Status: Acute (10) Hypertension Status: Acute (11) Hypocalcemia Status: Acute (12) Hypokalemia Status: Acute (13) Hypomagnesemia Status: Acute (14) Immunocompromised Status: Acute (15) Low back pain Status: Acute (16) Morbid obesity Status: Acute (17) New onset a-fib Status: Acute (18) Pulmonary nodule Status: Acute (19) Rectal bleed Status: Acute (20) Rectal bleeding Status: Acute (21) Rectal bleeding Status: Acute (22) Rectal cancer Status: Acute (23) Sepsis Status: Acute (24) Shortness of breath Status: Acute (25) Skin abscess Status: Acute (26) Supratherapeutic INR Status: Acute (27) Urinary tract infection Status: Acute (28) UTI (urinary tract infection) Status: Acute (29) Vaginal cuff cellulitis Status: Acute Objective Vital Signs Date Time Temp Pulse Resp B/P (MAP) Pulse Ox O2 Delivery O2 Flow Rate FiO2 02/13/18 04:00 Room Air 02/13/18 03:49 36.3 85 18 103/68 (80) 98 Room Air 02/13/18 00:04 37.0 98 18 114/68 (83) 97 Room Air 02/13/18 00:00 Room Air 02/12/18 20:00 Room Air 02/12/18 19:39 36.3 94 18 106/87 (93) 98 Room Air 02/12/18 16:00 Room Air 02/12/18 15:15 37.0 91 20 105/69 (81) 96 02/12/18 12:00 Room Air 02/12/18 11:21 36.8 87 24 113/69 (84) 97 Room Air 02/12/18 08:00 Room Air 02/12/18 06:51 37.2 117 18 121/84 (96) 94 Room Air Physical Exam General Appearance: WD/WN (ill-appearing, adentulous, obese), no apparent distress ENT: hearing grossly normal Abdomen: non tender, + pertinent finding (obese. Mons and L labia majora with edema and induration. Minimal erythema. 1" square adhesive bandage covering what I presume is the I&D site on hair bearing surface of labia, on anterior half of labia. Not removed.) Laboratory Results Last 24 Hours Test 02/12/18 07:22 02/12/18 07:27 02/12/18 07:28 02/12/18 11:18 Bedside Glucose 276 mg/dl 305 mg/dl White Blood Count 11.10 K/uL Red Blood Count 4.53 M/uL Hemoglobin 11.4 g/dL Hematocrit 34.6 % Mean Corpuscular Volume 76.4 fL Mean Corpuscular Hemoglobin 25.2 pg Mean Corpuscular Hemoglobin Concent 32.9 g/dl Platelet Count 100 K/uL Mean Platelet Volume 8.8 fL Neutrophils (%) (Auto) 51.0 % Lymphocytes (%) (Auto) 28.5 % Monocytes (%) (Auto) 14.6 % Eosinophils (%) (Auto) 0.1 % Basophils (%) (Auto) 0.8 % Neutrophils # (Auto) 5.67 K/uL Lymphocytes # (Auto) 3.16 K/uL Monocytes # (Auto) 1.62 K/uL Eosinophils # (Auto) 0.01 K/uL Basophils # (Auto) 0.09 K/uL RDW Standard Deviation 57.1 fL RDW Coefficient of Variation 21.5 % Immature Granulocyte % (Auto) 5.0 % Immature Granulocyte # (Auto) 0.55 K/uL Toxic Granulation 1+ Dohle Bodies 1+ Anisocytosis PRESENT Prothrombin Time 13.7 SECONDS Prothromb Time International Ratio 1.3 Activated Partial Thromboplast Time 56.2 SECONDS Partial Thromboplastin Ratio 2.2 Sodium Level 133 mmol/L Potassium Level 3.8 mmol/L Chloride Level 100 mmol/L Carbon Dioxide Level 24 mmol/L Anion Gap 9.0 mmol/L Blood Urea Nitrogen 11 mg/dl Creatinine 0.67 mg/dl Est Creatinine Clear Calc Drug Dose 88.9 ml/min Estimated GFR () 115.5 Estimated GFR (Non- 99.7 BUN/Creatinine Ratio 15.7 Random Glucose 252 mg/dl Calcium Level 7.8 mg/dl Phosphorus Level 2.3 mg/dl Magnesium Level 1.6 mg/dl Total Bilirubin 1.1 mg/dl Aspartate Amino Transf (AST/SGOT) 14 U/L Alanine Aminotransferase (ALT/SGPT) 9 U/L Alkaline Phosphatase 115 U/L Troponin I 0.017 ng/ml Total Protein 6.0 gm/dl Albumin 2.2 gm/dl Globulin 3.8 gm/dl Albumin/Globulin Ratio 0.6 Estimated Average Glucose 286 mg/dl Hemoglobin A1c 11.6 % Test 02/12/18 16:32 02/12/18 20:55 02/13/18 05:22 Bedside Glucose 157 mg/dl 134 mg/dl White Blood Count 11.31 K/uL Red Blood Count 4.42 M/uL Hemoglobin 11.0 g/dL Hematocrit 34.3 % Mean Corpuscular Volume 77.6 fL Mean Corpuscular Hemoglobin 24.9 pg Mean Corpuscular Hemoglobin Concent 32.1 g/dl RDW Standard Deviation 59.2 fL RDW Coefficient of Variation 21.7 % Nucleated RBC Absolute Count (auto) 0.04 K/uL Nucleated Red Blood Cells % 0.3 % Prothrombin Time 13.6 SECONDS Prothromb Time International Ratio 1.3 Activated Partial Thromboplast Time 28.0 SECONDS Partial Thromboplastin Ratio 1.1 Sodium Level 137 mmol/L Potassium Level 3.5 mmol/L Chloride Level 104 mmol/L Carbon Dioxide Level 26 mmol/L Anion Gap 7.0 mmol/L Blood Urea Nitrogen 9 mg/dl Creatinine 0.69 mg/dl Est Creatinine Clear Calc Drug Dose 87.8 ml/min Estimated GFR () 114.4 Estimated GFR (Non- 98.7 BUN/Creatinine Ratio 13.7 Random Glucose 159 mg/dl Calcium Level 8.2 mg/dl Total Bilirubin 0.8 mg/dl Aspartate Amino Transf (AST/SGOT) 14 U/L Alanine Aminotransferase (ALT/SGPT) 9 U/L Alkaline Phosphatase 121 U/L Total Protein 5.9 gm/dl Albumin 2.1 gm/dl Globulin 3.8 gm/dl Albumin/Globulin Ratio 0.6 Assessment and Plan 52yo with multiple comorbidities notably including poorly controlled diabetes and chemotherapy induced immunosuppression, with labial cellulitis s/p attempted I&D in ER and currently on IV Abx. Dr Gallagher was unable to identify a drainable collection on his exam yesterday morning, and as best I can assess today without causing undue discomfort to the patient, that would be my impression as well. IV antibiotics are indicated and being used. Heel Cur[facility] Dr. Delatorre has communicated an interest in incising the labia and packing with antibiotic beads as this therapy has been successful for Luisa in her prior abdominal wound and he hopes it may improve her vulvar infection as well. I am personally unfamiliar with this treatment, which I shared with the patient this morning, but have no objection of course to her proceeding with Dr. Delatorre's planned intervention today and wish her much success and quick relief. We will sign off for now but continue to be available as needed.
[2018-02-13 06:37] LABS: BASO % 0.9 %; EOS % 0.4 %; EOS ABS # 0.04 K/uL (0-0.5); IG# 0.61 K/uL (0.00-0.02); LYMPH % 20.6 %; LYMPH ABS # 2.33 K/uL (1.2-3.4); MEAN PLATELET VOLUME 8.8 fL (7.4-10.4); MONO % 12.6 %; MONO ABS # 1.42 K/uL (0.11-0.59); NEUT % 60.1 %; NEUT ABS # 6.81 K/uL (1.4-6.5); PLATELET COUNT 99 K/uL (130-400)
[2018-02-13] MEDS: INSULIN ASPART 100 UNITS/ML 3 ML PEN SC SCH ×4 (07:00→21:30)
--- NOTE | 2018-02-13 07:10 | Family Medicine Progress Note ---
Progress Note Date of Service February 13, 2018. Subjective Pt evaluation today including: conversation w/ patient, physical exam, chart review, lab review Pain: Labial pain Patient doing well this AM; no acute complaints Does still have discomfort with urination Helps to urinate supine with bedpan; less irritation to labia No fevers No nursing concerns overnight Did have a cracker this AM so surgery to open left labial wound delayed until later today Additional Comments: A 10 point review of systems was negative unless stated above. Medications Current Inpatient Medications Medications (Trade) Dose Ordered Sig/Viviana Route Start Time Stop Time Status Last Admin Dose Admin Acetaminophen (Tylenol Tab) 650 mg Q4H PRN PO 02/11/18 23:15 03/13/18 23:14 02/13/18 02:13 650 MG Al Hydrox/Mg Hydrox/Simethicone (Maalox Max Susp) 15 ml Q4H PRN PO 02/11/18 23:15 03/13/18 23:14 Magnesium Hydroxide (Milk Of Magnesia Susp) 30 ml Q12H PRN PO 02/11/18 23:15 03/13/18 23:14 Ondansetron HCl (Zofran Inj) 4 mg Q6H PRN IV 02/11/18 23:15 03/13/18 23:14 Nitroglycerin (Nitrostat Tab) 0.4 mg UD PRN SL 02/11/18 23:15 03/13/18 23:14 Polyethylene (Miralax Powder Packet) 17 gm DAILY PRN PO 02/11/18 23:15 03/13/18 23:14 Albuterol (Ventolin Hfa Inhaler) 2 puffs Q4H PRN INH 02/11/18 23:15 03/13/18 23:14 Atorvastatin Calcium (Lipitor Tab) 20 mg HS PO 02/12/18 21:00 03/14/18 20:59 02/12/18 21:13 20 MG Famotidine (Pepcid Tab) 20 mg DAILY PRN PO 02/11/18 23:15 03/13/18 23:14 Furosemide (Lasix Tab) 20 mg QAM PRN PO 02/11/18 23:15 03/13/18 23:14 Albuterol/ Ipratropium (Combivent Respimat Inh) 1 puffs QID INH 02/12/18 09:00 03/14/18 08:59 02/13/18 09:19 1 PUFFS Lactobacillus Acidophilus (Floranex Tab) 4 tab TID PO 02/12/18 09:00 03/14/18 08:59 02/13/18 09:19 4 TAB Levothyroxine Sodium (Synthroid Tab) 1,200 mcg DAILYBB PO 02/12/18 06:00 03/14/18 05:59 02/13/18 05:56 1,200 MCG Loratadine (Claritin Tab) 10 mg QAM PO 02/12/18 09:00 03/14/18 08:59 02/13/18 09:20 10 MG Magnesium Oxide (Mag-Ox Tab) 400 mg DAILY PO 02/12/18 09:00 03/14/18 08:59 02/13/18 09:20 400 MG Metoprolol Succinate (Toprol Xl Tab) 25 mg DAILY PO 02/12/18 09:00 03/14/18 08:59 02/13/18 07:19 25 MG Montelukast Sodium (Singulair Tab) 10 mg HS PO 02/12/18 21:00 03/14/18 20:59 02/12/18 21:14 10 MG Oxycodone/ Acetaminophen (Percocet 5-325mg Tab) 1 tab BID PRN PO 02/11/18 23:15 02/25/18 23:14 02/13/18 08:16 1 TAB Potassium Chloride (Klor-Con M10) 10 meq QAM PRN PO 02/11/18 23:15 03/13/18 23:14 Cholestyramine Resin (Questran Powder Light) 4 gm DAILY PO 02/12/18 09:00 03/14/18 08:59 02/12/18 07:55 4 GM Miscellaneous Information (Order Awaiting Action) 1 ea QS N/A 02/12/18 08:00 03/14/18 07:59 Nystatin (Mycostatin Susp) 5 ml QID PO 02/12/18 09:00 03/14/18 08:59 02/13/18 09:19 5 ML Insulin Glargine (Lantus Solostar Pen) 12 units BID SC 02/12/18 09:00 03/14/18 08:59 Future hold 02/12/18 21:12 12 UNITS Glucagon (Glucagon Inj) 1 mg UD PRN SQ 02/11/18 19:15 03/13/18 19:14 Glucose (Glucose 40% Gel) 15-30 GRAMS 15 GRAMS... UD PRN PO 02/11/18 19:15 03/13/18 19:14 Glucose (Glucose Chew Tab) 4-8 Tablets 4 Tabl... UD PRN PO 02/11/18 19:15 03/13/18 19:14 Carbohydrates (Carbohydrates For Hypoglycemia) 15-30 GRAMS 15 grams if BSG 54-69... UD PRN PO 02/11/18 23:15 03/13/18 23:14 Insulin Aspart (novoLOG ASPART) SLIDING SCALE If C... ACHS SC 02/12/18 07:00 03/14/18 06:59 02/12/18 17:16 4 UNITS Morphine Sulfate (MoRPHine SULFATE INJ) 3 mg Q2H PRN IV 02/11/18 23:30 02/25/18 23:29 Miscellaneous Information (Consult) 1 ea UD PRN N/A 02/12/18 07:15 03/14/18 07:14 Piperacillin Sod/ Tazobactam Sod 3.375 gm/Dextrose 115 ml @ 28.75 mls/ hr Q8H IV 02/12/18 14:00 02/22/18 13:59 02/13/18 06:13 28.75 MLS/HR Warfarin Sodium (Coumadin Tab) 2.5 mg Q2D@1600 PO 02/13/18 16:00 03/15/18 15:59 Warfarin Sodium (Coumadin Tab) 5 mg Q2D@1600 PO 02/12/18 16:00 03/14/18 15:59 Future Hold Enteral Nutritional Formula (Boost Glucose Control) 1 can DAILY PO 02/13/18 09:00 03/15/18 08:59 Fentanyl Citrate (Fentanyl Inj) 50 mcg Q5M PRN IV 02/13/18 09:00 02/13/18 14:00 Hydromorphone HCl (Dilaudid Inj) 0.5 mg Q5M PRN IV 02/13/18 09:00 02/13/18 14:00 Meperidine HCl (Demerol Inj) 25 mg Q5M PRN IV 02/13/18 09:00 02/13/18 14:00 Ondansetron HCl (Zofran Inj) 4 mg ONE PRN IV 02/13/18 09:00 02/13/18 14:00 Labetalol HCl (Normodyne IV) 5 mg Q5M PRN IV 02/13/18 09:00 02/13/18 14:00 Ephedrine Sulfate (EpHEDrine SULFATE INJ) 5 mg Q5M PRN IV 02/13/18 09:00 02/13/18 14:00 Atropine Sulfate (Atropine Sulfate 0.1mg/ml Inj) 0.5 mg Q1M PRN IV 02/13/18 09:00 02/13/18 14:00 Objective Vital Signs Date Time Temp Pulse Resp B/P (MAP) Pulse Ox O2 Delivery O2 Flow Rate FiO2 02/13/18 08:00 98 Room Air 02/13/18 06:55 36.6 91 18 96/70 (79) 98 Room Air 02/13/18 04:00 Room Air 02/13/18 03:49 36.3 85 18 103/68 (80) 98 Room Air 02/13/18 00:04 37.0 98 18 114/68 (83) 97 Room Air 02/13/18 00:00 Room Air 02/12/18 20:00 Room Air 02/12/18 19:39 36.3 94 18 106/87 (93) 98 Room Air 02/12/18 16:00 Room Air 02/12/18 15:15 37.0 91 20 105/69 (81) 96 Physical Exam General Appearance: WD/WN, no apparent distress, + obese Eyes: normal inspection, EOMI ENT: hearing grossly normal, pharynx normal, + pertinent finding (mucuous membranes dry) Neck: supple, no adenopathy, no JVD Respiratory/Chest: lungs clear, no respiratory distress Cardiovascular: regular rate, rhythm, no gallop, no murmur Abdomen: normal bowel sounds, non tender, soft Extremities: non-tender, no pedal edema Neurologic/Psychiatric: alert, normal mood/affect, oriented x 3 Skin: normal color, warm/dry, no rash Laboratory Results Last 24 Hours Test 02/12/18 16:32 02/12/18 20:55 02/13/18 05:22 02/13/18 07:37 Bedside Glucose 157 mg/dl 134 mg/dl 165 mg/dl White Blood Count 11.31 K/uL Red Blood Count 4.42 M/uL Hemoglobin 11.0 g/dL Hematocrit 34.3 % Mean Corpuscular Volume 77.6 fL Mean Corpuscular Hemoglobin 24.9 pg Mean Corpuscular Hemoglobin Concent 32.1 g/dl Platelet Count 99 K/uL Mean Platelet Volume 8.8 fL Neutrophils (%) (Auto) 60.1 % Lymphocytes (%) (Auto) 20.6 % Monocytes (%) (Auto) 12.6 % Eosinophils (%) (Auto) 0.4 % Basophils (%) (Auto) 0.9 % Neutrophils # (Auto) 6.81 K/uL Lymphocytes # (Auto) 2.33 K/uL Monocytes # (Auto) 1.42 K/uL Eosinophils # (Auto) 0.04 K/uL Basophils # (Auto) 0.10 K/uL RDW Standard Deviation 59.2 fL RDW Coefficient of Variation 21.7 % Immature Granulocyte % (Auto) 5.4 % Immature Granulocyte # (Auto) 0.61 K/uL Nucleated RBC Absolute Count (auto) 0.04 K/uL Nucleated Red Blood Cells % 0.3 % Platelet Estimate DECREASED Anisocytosis PRESENT Prothrombin Time 13.6 SECONDS Prothromb Time International Ratio 1.3 Activated Partial Thromboplast Time 28.0 SECONDS Partial Thromboplastin Ratio 1.1 Sodium Level 137 mmol/L Potassium Level 3.5 mmol/L Chloride Level 104 mmol/L Carbon Dioxide Level 26 mmol/L Anion Gap 7.0 mmol/L Blood Urea Nitrogen 9 mg/dl Creatinine 0.69 mg/dl Est Creatinine Clear Calc Drug Dose 87.8 ml/min Estimated GFR () 114.4 Estimated GFR (Non- 98.7 BUN/Creatinine Ratio 13.7 Random Glucose 159 mg/dl Calcium Level 8.2 mg/dl Total Bilirubin 0.8 mg/dl Aspartate Amino Transf (AST/SGOT) 14 U/L Alanine Aminotransferase (ALT/SGPT) 9 U/L Alkaline Phosphatase 121 U/L Total Protein 5.9 gm/dl Albumin 2.1 gm/dl Globulin 3.8 gm/dl Albumin/Globulin Ratio 0.6 Test 02/13/18 08:23 Bedside Glucose 179 mg/dl Assessment and Plan 51 yoF with hx of A fib, DM II, HTN, HLD, hypothyroidism, asthma, metastatic colon cancer s/p colectomy w/ ostomy on 10/18 and ostomy reversal on 11/[address] Rogers and lung nodules currently on chemotherapy, ANA on CPAP, morbid obesity and depression admitted for left labial cellulitis + E.coli UTI Our plan for her is as follows: - Left Labial Cellulitis: Afebrile with stable WBC at 11. Business Risk Analyst recs appreciated , have signed off. Surgery to bring down to OR and instill antimicrobial beads today as she has had a good response to this in the past. Continue IV Zosyn. - E. coli urinary tract infection: Urine cultures still pending. Keep on Zosyn. View to de-escalate antibiotics over 12-24 hours if continues to have good clinical response - Possible-intra abdominal infection: Surgical recommendations appreciated. No acute concern for intra-abdominal infection. - Type 2 Diabetes Mellitus: BSG > 400 on arriva, A1c 11.6. BSG well controlled on Lantus and SSI. Continue to monitor AC/HS BSGs - Hyponatremia: resolved - Hyperbilirubinemia: Normal CT of liver. Continue trending LFTs. Most likely Gilbert's disease. - Metastatic colon cancer with lung nodules: Not acute issue at presents. Follows Dr. Quintana as outpatient - HTN: Continue Metoprolol - HLD: Continue Atorvastatin - Atrial Fibrillation: Currently rate controlled. Subtherapeutic INR at 1.3. Low risk with CHADS2 score. Does not require bridging until therapeutic. Will re-start Warfarin after procedure - Hypothyroidism: Continue levothyroxine (records confirm dose of 1200mcg daily) ANA, asthma: Continue Albuterol, Combivent and Montelukast with CPAP overnight. GERD: Continue Pantoprazole and Ranitidine DVT prophylaxis: SCD and DEBBI. Hold pharmacological means until post-procedure. Code Status: Level I Full Code Disposition: Transfer to Med/Surg today. PT and OT consulted Continued [facility] stay due to: voiding difficulties, multiple IV medications needed Discharge planning: uncertain
[2018-02-13] MEDS ORDERED: MIDAZOLAM HCL 1 MG/ML 2ML VIAL ONE (07:19)
[2018-02-13] MEDS: METOPROLOL SUCC 50MG EXT REL TAB PO SCH (07:19)
[2018-02-13] MEDS ORDERED: FENTANYL CITRATE INJ 50 MCG/1 ML 2 ML VIAL ONE (07:19)
[2018-02-13] MEDS: OXYCODONE/ACETAMINOPHEN 5-325 TAB PO PRN ×2 (08:16→17:08)
[2018-02-13] MEDS ORDERED: MEPERIDINE HCL 25 MG/ML CARP IV PRN (09:00)
[2018-02-13] MEDS ORDERED: LABETALOL HCL IV 5 MG/ML 20ML IV PRN (09:00)
[2018-02-13] MEDS ORDERED: ONDANSETRON INJ 2 MG/ML 2 ML VIAL IV PRN (09:00)
[2018-02-13] MEDS ORDERED: INSULIN GLARGINE SOLOSTAR 100 UNITS/ML 3 ML PEN SC SCH (09:00)
[2018-02-13] MEDS ORDERED: FENTANYL CITRATE INJ 50 MCG/1 ML 2 ML VIAL IV PRN (09:00)
[2018-02-13] MEDS ORDERED: ATROPINE SULFATE 0.1 MG/ML 5ML SYR IV PRN (09:00)
[2018-02-13] MEDS ORDERED: EpHEDrine SULFATE INJ 50 MG/ML AMP IV PRN (09:00)
[2018-02-13] MEDS: CHOLESTYRAMINE LIGHT 4 GM PKT PO SCH (09:00)
[2018-02-13] MEDS: BOOST GLUCOSE CONTROL PO SCH (09:00)
[2018-02-13] MEDS ORDERED: HYDROmorphone INJ 0.5 MG/0.5 ML SYR IV PRN (09:00)
[2018-02-13] MEDS: LACTOBACILLUS ACIDOPHILUS (FLORANEX) TAB PO SCH ×3 (09:19→21:21)
[2018-02-13] MEDS: IPRATROPIUM BROMIDE/ALBUTEROL respimat INH INH SCH ×4 (09:19→21:18)
[2018-02-13] MEDS: NYSTATIN SUSP 500,000 U/5 ML UDC PO SCH ×4 (09:19→21:50)
[2018-02-13] MEDS: LORATADINE 10 MG TAB PO SCH (09:20)
[2018-02-13] MEDS: MAGNESIUM OXIDE 400 MG TAB PO SCH (09:20)
[2018-02-13] MEDS ORDERED: GENTAMICIN SULFATE 40 MG/ML 2 ML VIAL ONE (11:50)
[2018-02-13] MEDS ORDERED: VANCOMYCIN HCL 1000MG/20ML VIAL ONE (11:51)
[2018-02-13] MEDS ORDERED: LIDOCAINE/EPINEPHRINE 1% 20 ML VIAL ONE (12:03)
[2018-02-13] MEDS ORDERED: BUPIVACAINE 0.5 % 5 MG/1 ML MPF 30ML VIAL ONE (12:05)
[2018-02-13] MEDS ORDERED: EpINEphrine INJ 1MG/ML AMP 1 MG/ML AMP ONE (12:05)
[2018-02-13] MEDS ORDERED: PROPOFOL IV EMULSION 10 MG/ML 20 ML VIAL ONE (13:18)
--- NOTE | 2018-02-13 13:33 | [facility] Post Operative Brief Note ---
Immediate Operative Summary Operative Date February 13, 2018. Pre-Operative Diagnosis Left Labial Abscess Post-Operative Diagnosis Left Labial Abscess Procedure(s) Performed Left Incision and Drainage Left Labial Abscess, packing with Stimulan Antibiotic Beads Surgeon Dr. Marcial Delatorre Iron Pourer Surgeon(s) Nader Alcala PA-C Estimated Blood Loss 5 mL Findings Consistent with Post-Op Diagnosis Specimens Microbiology #1: Left Labial Abscess Anaerobic/Aerobic, Routine C/S, Gram Stain, Fungal Sent to lab at 1330, carried by OR aide. Anesthesia Type MAC
--- NOTE | 2018-02-13 14:32 | Anesthesiology Progress Note ---
Anesthesia Post Op Note Date & Time February 13, 2018 at 14:32 Vital Signs Pain Intensity: 0 Vital Signs Past 12 Hours Date Time Temp Pulse Resp B/P (MAP) Pulse Ox O2 Delivery O2 Flow Rate FiO2 02/13/18 14:15 92 22 111/76 100 Nasal Cannula 2 02/13/18 14:05 93 14 125/84 100 Nasal Cannula 2 02/13/18 13:55 94 10 100/87 98 Nasal Cannula 2 02/13/18 13:49 36.1 97 13 97/73 98 Nasal Cannula 2 02/13/18 12:00 98 Room Air 02/13/18 08:00 98 Room Air 02/13/18 06:55 36.6 91 18 96/70 (79) 98 Room Air 02/13/18 04:00 Room Air 02/13/18 03:49 36.3 85 18 103/68 (80) 98 Room Air Notes Mental Status: alert / awake / arousable, participated in evaluation Pt Amnestic to Procedure: Yes Nausea / Vomiting: adequately controlled Pain: adequately controlled Airway Patency, RR, SpO2: stable & adequate BP & HR: stable & adequate Hydration State: stable & adequate Anesthetic Complications: no major complications apparent
--- NOTE | 2018-02-13 15:51 | OPERATIVE REPORT ---
DATE OF OPERATION: 02/13/2018 PREOPERATIVE DIAGNOSES: 1. Left labial abscess. 2. Metastatic colorectal carcinoma. 3. Undergoing chemotherapy. POSTOPERATIVE DIAGNOSES: Same. PROCEDURES PERFORMED: 1. Incision and drainage of left labial abscess. 2. Implantation of Biocomposites Stimulan calcium sulfate beads impregnated with antibiotics. SURGEON: Marcial Delatorre MD CROWN IRONER: SOREN Monae ANESTHESIA: Local with sedation. INDICATIONS FOR PROCEDURE: Luisa Bernard is a 52-year-old female who presented initially with a colorectal carcinoma resected by Dr. John Rogers. A diverting ileostomy was placed at that time; however, given her obesity and short stature, it was difficult to keep a bag on it. She ended up developing a significant wound. After 3-4 weeks, Dr. Rogers took her back and took down her ileostomy. Her wounds were packed with beads, and actually, she did well except she had a draining sinus. I took her back and packed this wound with beads and it healed completely. In the interim, also did a thoracoscopic biopsy to prove that she had metastatic colorectal carcinoma to her left lower lobe. She has actually done well with chemotherapy. She has lost some weight. She presented with pain, and she underwent a CT scan, which showed fluid collection under the surface in her right abdomen; however, there were no signs of an abscess, that is why we packed the beads. She had signs or symptoms of a left labial abscess although it was small. We discussed this case with Dr. Markie Gallagher, and given the fact that she is undergoing active chemotherapy and given her pain, I felt that incising and draining this and packing this with the antibiotic beads would be helpful for her recovery. On 02/13/2018, the patient underwent an uncomplicated incision and drainage and packing. We closed it primarily. She tolerated it well. DESCRIPTION OF PROCEDURE: The patient was brought to the operating room and laid in a lithotomy position. Sedation was given. After prepping and draping in the usual sterile fashion and giving prophylactic antibiotics and calling appropriate timeout, 1% Xylocaine mixed with bupivacaine was injected around the labia. I then made approximately a 7 cm incision anterior to posterior, and we did come upon a pocket of purulent fluid, which was cultured. Bleeding was controlled with a cautery. She had quite a lot of induration. A 3-0 nylon suture was then placed. These were simple sutures. I placed to the most posterior inferior aspect so that we can lift it forward and open the space, and then I packed this with beads. The calcium sulfate beads were created by mixing 5 mL of purified calcium sulfate with 500 mg of vancomycin and 120 mg of gentamicin. When these had achieved appropriate consistency, they were placed on a mould. When the beads had hardened, the mould was bent and the beads removed. They were then used to completely pack this wound. It filled all the empty spaces. A 3-0 nylon was then used to close the incision. She tolerated it quite well with very little on the way of pain. I attest to the content of the Intraoperative Record and any orders documented therein. Any exception s are noted below.
[2018-02-13] MEDS: WARFARIN SOD 2.5 MG TAB PO SCH (18:36)
[2018-02-13] MEDS: MoRPHine SULFATE 4 MG/ML 1 ML CARP\\VIAL IV PRN ×2 (21:17→23:49)
[2018-02-13] MEDS: MONTELUKAST SOD 10 MG TAB PO SCH (21:21)
[2018-02-13] MEDS: ATORVASTATIN 20 MG TAB PO SCH (21:21)
[2018-02-13] MEDS: INSULIN GLARGINE SOLOSTAR 100 UNITS/ML 3 ML PEN SC SCH (21:31)
[2018-02-14] MEDS: PIPERACILL/TAZOBAC IV 3.375 GM in DEXTROSE 5% 100ML 100 ML IV SCH ×3 (01:30→16:13)
[2018-02-14] MEDS: MoRPHine SULFATE 4 MG/ML 1 ML CARP\\VIAL IV PRN ×2 (03:04→13:36)
[2018-02-14 03:29] VITALS: BP 117/81; PULSE 125; TEMP 37.1; O2SAT 96
[2018-02-14 05:40] LABS: HEMATOCRIT 34.2 % (37-47); MEAN CELL VOLUME 78.1 fL (80-100); MEAN CORPUSCULAR HEMOGLOBIN 25.1 pg (25-34); MEAN CORPUSCULAR HGB CONC 32.2 g/dl (32-36); MEAN PLATELET VOLUME 9.3 fL (7.4-10.4); PLATELET COUNT 132 K/uL (130-400); RED CELL DISTRIBUTION WIDTH CV 21.6 % (11.5-14.5); RED CELL DISTRIBUTION WIDTH SD 59.1 fL (36.4-46.3); WHITE BLOOD COUNT 15.79 K/uL (4.8-10.8)
[2018-02-14 05:54] LABS: INR 1.3 (0.9-1.1); PTT PATIENT 35.9 SECONDS (21.0-31.0)
[2018-02-14 06:08] LABS: ALBUMIN 2.2 gm/dl (3.4-5.0); CALCIUM 8.2 mg/dl (8.5-10.1); CREATININE 0.76 mg/dl (0.60-1.20); POTASSIUM 3.9 mmol/L (3.5-5.1); TOTAL PROTEIN 6.3 gm/dl (6.4-8.2)
[2018-02-14] MEDS: LEVOTHYROXINE 200 MCG TAB PO SCH (06:11)
[2018-02-14 06:20] LABS: BASO % 0.8 %; BASO ABS # 0.12 K/uL (0-0.2); EOS % 0.2 %; EOS ABS # 0.03 K/uL (0-0.5); IG# 0.81 K/uL (0.00-0.02); LYMPH % 23.4 %; MONO % 10.3 %; MONO ABS # 1.63 K/uL (0.11-0.59); NEUT % 60.2 %
[2018-02-14] MEDS: OXYCODONE/ACETAMINOPHEN 5-325 TAB PO PRN ×2 (06:24→18:20)
--- NOTE | 2018-02-14 07:50 | Anesthesiology Progress Note ---
Anesthesia Post Op Note Date & Time February 14, 2018 at 07:49 Vital Signs Pain Intensity: 9.0 Vital Signs Past 12 Hours Date Time Temp Pulse Resp B/P (MAP) Pulse Ox O2 Delivery O2 Flow Rate FiO2 02/14/18 03:29 37.1 125 16 117/81 (93) 96 Room Air 02/13/18 23:45 Room Air 02/13/18 23:05 37.1 92 18 111/74 (86) 98 Room Air 02/13/18 21:45 92 Notes Mental Status: alert / awake / arousable, participated in evaluation Pt Amnestic to Procedure: Yes Nausea / Vomiting: adequately controlled Pain: adequately controlled Airway Patency, RR, SpO2: stable & adequate BP & HR: stable & adequate Hydration State: stable & adequate Anesthetic Complications: no major complications apparent
[2018-02-14] MEDS: MAGNESIUM SULFATE 1GM / D5W 100 ML IV SCH ×2 (08:13→09:25)
[2018-02-14 08:18] VITALS: BP 104/74; PULSE 90; TEMP 36.7; O2SAT 96
[2018-02-14] MEDS: IPRATROPIUM BROMIDE/ALBUTEROL respimat INH INH SCH ×4 (08:32→20:50)
[2018-02-14] MEDS: CHOLESTYRAMINE LIGHT 4 GM PKT PO SCH (08:35)
[2018-02-14] MEDS: INSULIN ASPART 100 UNITS/ML 3 ML PEN SC SCH ×4 (08:57→21:38)
[2018-02-14] MEDS: INSULIN GLARGINE SOLOSTAR 100 UNITS/ML 3 ML PEN SC SCH ×2 (08:58→21:38)
[2018-02-14] MEDS: BOOST GLUCOSE CONTROL PO SCH ×2 (09:00→21:02)
[2018-02-14] MEDS: MAGNESIUM OXIDE 400 MG TAB PO SCH (09:25)
[2018-02-14] MEDS: LACTOBACILLUS ACIDOPHILUS (FLORANEX) TAB PO SCH ×3 (09:26→20:50)
[2018-02-14] MEDS: LORATADINE 10 MG TAB PO SCH (09:26)
[2018-02-14] MEDS: METOPROLOL SUCC 50MG EXT REL TAB PO SCH (09:26)
[2018-02-14] MEDS: NYSTATIN SUSP 500,000 U/5 ML UDC PO SCH ×4 (09:27→20:52)
--- NOTE | 2018-02-14 09:37 | SURGERY PROGRESS NOTE ---
DATE: 02/14/2018 Ms. Bernard was seen today. Her wound looks improved. Her pain is actually a bit better. From my standpoint, this patient can be discharged. I discussed this case with Dr. Quintana. She is scheduled to receive chemotherapy today, but we are going to hold off as she has this infectious process. We did note gram-positive cocci and gram-positive bacilli on the Gram stain. It may behoove us to wait for identification sensitivities prior to sending her out.
[2018-02-14 10:55] VITALS: O2SAT 96
[2018-02-14 12:00] VITALS: BP 110/76; PULSE 90; TEMP 37.1; O2SAT 96
[2018-02-14] MEDS ORDERED: ENOXAPARIN 40 MG/0.4 ML SYR SQ ONE (15:45)
[2018-02-14 15:47] VITALS: BP 92/66; PULSE 95; TEMP 37.2; O2SAT 95
[2018-02-14] MEDS ORDERED: WARFARIN SOD 5 MG TAB PO SCH ×2 (16:00)
--- NOTE | 2018-02-14 16:58 | Family Medicine Progress Note ---
Progress Note Date of Service February 14, 2018. Subjective Pt evaluation today including: conversation w/ patient, physical exam, chart review, lab review Pain: Labial soreness/pain and L arm pain PO Intake: tolerating Voiding: no voiding problems This AM pt reports Labial pain and soreness (improving) and responsive to pain meds; also having L upper arm pain/soreness s/p shot. Otherwise asymptomatic. Reports drainage with each dressing change s/p urination Constitutional: No fever Respiratory: No shortness of breath Cardiovascular: No chest pain Abdomen: No pain, No nausea, No vomiting Female : No dysuria Medications Current Inpatient Medications Medications (Trade) Dose Ordered Sig/Viviana Route Start Time Stop Time Status Last Admin Dose Admin Acetaminophen (Tylenol Tab) 650 mg Q4H PRN PO 02/11/18 23:15 03/13/18 23:14 02/13/18 02:13 650 MG Al Hydrox/Mg Hydrox/Simethicone (Maalox Max Susp) 15 ml Q4H PRN PO 02/11/18 23:15 03/13/18 23:14 Magnesium Hydroxide (Milk Of Magnesia Susp) 30 ml Q12H PRN PO 02/11/18 23:15 03/13/18 23:14 Ondansetron HCl (Zofran Inj) 4 mg Q6H PRN IV 02/11/18 23:15 03/13/18 23:14 Nitroglycerin (Nitrostat Tab) 0.4 mg UD PRN SL 02/11/18 23:15 03/13/18 23:14 Polyethylene (Miralax Powder Packet) 17 gm DAILY PRN PO 02/11/18 23:15 03/13/18 23:14 Albuterol (Ventolin Hfa Inhaler) 2 puffs Q4H PRN INH 02/11/18 23:15 03/13/18 23:14 Atorvastatin Calcium (Lipitor Tab) 20 mg HS PO 02/12/18 21:00 03/14/18 20:59 02/13/18 21:21 20 MG Famotidine (Pepcid Tab) 20 mg DAILY PRN PO 02/11/18 23:15 03/13/18 23:14 Furosemide (Lasix Tab) 20 mg QAM PRN PO 02/11/18 23:15 03/13/18 23:14 Albuterol/ Ipratropium (Combivent Respimat Inh) 1 puffs QID INH 02/12/18 09:00 03/14/18 08:59 02/14/18 16:21 1 PUFFS Lactobacillus Acidophilus (Floranex Tab) 4 tab TID PO 02/12/18 09:00 03/14/18 08:59 02/14/18 14:39 4 TAB Levothyroxine Sodium (Synthroid Tab) 1,200 mcg DAILYBB PO 02/12/18 06:00 03/14/18 05:59 02/14/18 06:11 1,200 MCG Loratadine (Claritin Tab) 10 mg QAM PO 02/12/18 09:00 03/14/18 08:59 02/14/18 09:26 10 MG Magnesium Oxide (Mag-Ox Tab) 400 mg DAILY PO 02/12/18 09:00 03/14/18 08:59 02/14/18 09:25 400 MG Metoprolol Succinate (Toprol Xl Tab) 25 mg DAILY PO 02/12/18 09:00 03/14/18 08:59 02/14/18 09:26 25 MG Montelukast Sodium (Singulair Tab) 10 mg HS PO 02/12/18 21:00 03/14/18 20:59 02/13/18 21:21 10 MG Oxycodone/ Acetaminophen (Percocet 5-325mg Tab) 1 tab BID PRN PO 02/11/18 23:15 02/25/18 23:14 02/14/18 06:24 1 TAB Potassium Chloride (Klor-Con M10) 10 meq QAM PRN PO 02/11/18 23:15 03/13/18 23:14 Cholestyramine Resin (Questran Powder Light) 4 gm DAILY PO 02/12/18 09:00 03/14/18 08:59 02/14/18 08:35 4 GM Miscellaneous Information (Order Awaiting Action) 1 ea QS N/A 02/12/18 08:00 03/14/18 07:59 Nystatin (Mycostatin Susp) 5 ml QID PO 02/12/18 09:00 03/14/18 08:59 02/14/18 16:28 5 ML Insulin Glargine (Lantus Solostar Pen) 12 units BID SC 02/12/18 09:00 03/14/18 08:59 Future hold 02/14/18 08:58 12 UNITS Glucagon (Glucagon Inj) 1 mg UD PRN SQ 02/11/18 19:15 03/13/18 19:14 Glucose (Glucose 40% Gel) 15-30 GRAMS 15 GRAMS... UD PRN PO 02/11/18 19:15 03/13/18 19:14 Glucose (Glucose Chew Tab) 4-8 Tablets 4 Tabl... UD PRN PO 02/11/18 19:15 03/13/18 19:14 Carbohydrates (Carbohydrates For Hypoglycemia) 15-30 GRAMS 15 grams if BSG 54-69... UD PRN PO 02/11/18 23:15 03/13/18 23:14 Insulin Aspart (novoLOG ASPART) SLIDING SCALE If C... ACHS SC 02/12/18 07:00 03/14/18 06:59 02/14/18 13:21 14 UNITS Morphine Sulfate (MoRPHine SULFATE INJ) 3 mg Q2H PRN IV 02/11/18 23:30 02/25/18 23:29 02/14/18 13:36 3 MG Miscellaneous Information (Consult) 1 ea UD PRN N/A 02/12/18 07:15 03/14/18 07:14 Piperacillin Sod/ Tazobactam Sod 3.375 gm/Dextrose 115 ml @ 28.75 mls/ hr Q8H IV 02/12/18 14:00 02/14/18 20:00 02/14/18 16:13 28.75 MLS/HR Warfarin Sodium (Coumadin Tab) 2.5 mg Q2D@1600 PO 02/13/18 16:00 03/15/18 15:59 02/13/18 18:36 2.5 MG Enteral Nutritional Formula (Boost Glucose Control) 1 can DAILY PO 02/13/18 09:00 03/15/18 08:59 Heparin Sodium (Porcine) (Heparin 100 Unit/ml 5ml Flush) 5 ml PRN PRN IV 02/13/18 21:15 03/15/18 21:14 02/13/18 21:36 5 ML Enoxaparin Sodium (Lovenox Inj) 40 mg QAM SQ 02/15/18 09:00 03/17/18 08:59 Warfarin Sodium (Coumadin Tab) 5 mg Q2D@1600 PO 02/14/18 16:00 03/16/18 15:59 02/14/18 16:13 5 MG Piperacillin Sod/ Tazobactam Sod 4.5 gm/Dextrose 120 ml @ 30 mls/hr Q8H IV 02/15/18 00:00 02/22/18 13:59 Objective Vital Signs Date Time Temp Pulse Resp B/P (MAP) Pulse Ox O2 Delivery O2 Flow Rate FiO2 02/14/18 15:47 37.2 95 18 92/66 (75) 95 Room Air 02/14/18 12:00 37.1 90 18 110/76 (87) 96 Room Air 02/14/18 10:55 96 Room Air 02/14/18 08:18 36.7 90 20 104/74 (84) 96 Room Air 02/14/18 07:50 Room Air 02/14/18 03:29 37.1 125 16 117/81 (93) 96 Room Air 02/13/18 23:45 Room Air 02/13/18 23:05 37.1 92 18 111/74 (86) 98 Room Air 02/13/18 21:45 92 02/13/18 18:30 36.8 105 18 95/65 (75) 94 Room Air 02/13/18 16:51 36.9 89 18 101/66 (78) 94 Nasal Cannula 2.0 Physical Exam General Appearance: no apparent distress Eyes: normal inspection Respiratory/Chest: lungs clear, normal breath sounds Cardiovascular: regular rate, rhythm, no murmur Abdomen: normal bowel sounds, non tender, soft Extremities: no pedal edema, + pertinent finding (L upper arm TTP; no TTP of elbow joint; no LE TTP) Neurologic/Psychiatric: alert, oriented x 3 Skin: + pertinent finding (L labial abscess site dressing C/D/I) Laboratory Results 02/14/18 05:21 Red Blood Count 4.38, Mean Corpuscular Volume 78.1, Mean Corpuscular Hemoglobin 25.1, Mean Corpuscular Hemoglobin Concent 32.2, Mean Platelet Volume 9.3, Neutrophils (%) (Auto) 60.2, Lymphocytes (%) (Auto) 23.4, Monocytes (%) (Auto) 10.3, Eosinophils (%) (Auto) 0.2, Basophils (%) (Auto) 0.8, Neutrophils # (Auto ) 9.50, Lymphocytes # (Auto) 3.70, Monocytes # (Auto) 1.63, Eosinophils # (Auto ) 0.03, Basophils # (Auto) 0.12 02/14/18 05:21 Test 02/14/18 05:21 02/14/18 08:23 White Blood Count 15.79 K/uL (4.8-10.8) Red Blood Count 4.38 M/uL (4.2-5.4) Hemoglobin 11.0 g/dL (12.0-16.0) Hematocrit 34.2 % (37-47) Mean Corpuscular Volume 78.1 fL (80-100) Mean Corpuscular Hemoglobin 25.1 pg (25-34) Mean Corpuscular Hemoglobin Concent 32.2 g/dl (32-36) Platelet Count 132 K/uL (130-400) Mean Platelet Volume 9.3 fL (7.4-10.4) Neutrophils (%) (Auto) 60.2 % Lymphocytes (%) (Auto) 23.4 % Monocytes (%) (Auto) 10.3 % Eosinophils (%) (Auto) 0.2 % Basophils (%) (Auto) 0.8 % Neutrophils # (Auto) 9.50 K/uL (1.4-6.5) Lymphocytes # (Auto) 3.70 K/uL (1.2-3.4) Monocytes # (Auto) 1.63 K/uL (0.11-0.59) Eosinophils # (Auto) 0.03 K/uL (0-0.5) Basophils # (Auto) 0.12 K/uL (0-0.2) RDW Standard Deviation 59.1 fL (36.4-46.3) RDW Coefficient of Variation 21.6 % (11.5-14.5) Immature Granulocyte % (Auto) 5.1 % Immature Granulocyte # (Auto) 0.81 K/uL (0.00-0.02) Toxic Granulation 1+ Anisocytosis PRESENT Prothrombin Time 13.8 SECONDS (9.0-12.0) Prothromb Time International Ratio 1.3 (0.9-1.1) Activated Partial Thromboplast Time 35.9 SECONDS (21.0-31.0) Partial Thromboplastin Ratio 1.4 Anion Gap 7.0 mmol/L (3-11) Est Creatinine Clear Calc Drug Dose 79.8 ml/min Estimated GFR () 103.1 Estimated GFR (Non- 88.9 BUN/Creatinine Ratio 15.2 (10-20) Calcium Level 8.2 mg/dl (8.5-10.1) Magnesium Level 1.6 mg/dl (1.8-2.4) Total Bilirubin 0.6 mg/dl (0.2-1) Aspartate Amino Transf (AST/SGOT) 17 U/L (15-37) Alanine Aminotransferase (ALT/SGPT) 11 U/L (12-78) Alkaline Phosphatase 132 U/L (45-117) Total Protein 6.3 gm/dl (6.4-8.2) Albumin 2.2 gm/dl (3.4-5.0) Globulin 4.1 gm/dl (2.5-4.0) Albumin/Globulin Ratio 0.5 (0.9-2) Bedside Glucose 110 mg/dl (70-90) Assessment and Plan 51 yoF with hx of A fib, DM II, HTN, HLD, hypothyroidism, asthma, metastatic colon cancer s/p colectomy w/ ostomy on 10/18 and ostomy reversal on 11/[address] Rogers and lung nodules currently on chemotherapy, ANA on CPAP, morbid obesity and depression who presented with a 1 week history of painful labial cellulitis in the setting of poorly controlled DM and immunosuppression. NOW s/p I&D day 1 and packing of antibiotics by Dr. Delatorre with improving pain Labial cellulitis - s/p I&D day 1 - remains afebrile with mildly elevated WBC of 15.8 (likely reactive post procedure, increased from 11.3 yesterday) - Blood Cx NGTD - Wound Cx - staph aureus sensitivities pending - Empiric Abx coverage with Zosyn - will narrow antibiotic coverage pending WCx results - Percocet (home med), toraldol and morphine PRN - Consulted crts: no drainable fluctuance; IV abx recommended - Surgery - Dr. Delatorre: abscess drained and packed with antibiotic beads UTI - remains asymptomatic - UA positive - Urine Cx ESBL E.coli - Continue Zosyn will narrow antibiotic coverage pending WCx results LUE muscle spasm vs. DVT - Voltaren gel - given on anticoagulation no need to obtain doppler US for DVT as management unlikely to change and most likely consistent with muscle spasm based on exam Concern for intra-abdominal infection - benign exam, afebrile, mildly elevated WBC - CT abdo/pelvis: 10 cm right lower quadrant abdominal wall fluid collection. Concern for abscess. Also infiltration of the perirectal fat and presacral soft tissue thickening - Blood Cx NGTD - Empiric coverage with Zosyn - Surgery consulted: no concern for abdominal infection at this time; fluid collection likely consistent with abx beads placed Uncontrolled DM II - HgbA1c today 11.6 and HgbA1c on 10/18 was 10.3; improved BG 120 this AM - Lantus 12units BID + ISS with checks ac/hs - SS: goal 120-160 CF: 10; CHO ratio 1:8 - had a thorough discussion with patient regarding why it is important to improve control; recommended dietary changes and checking blood sugars more frequency; pt reported testing only twice due to lack of coverage for strips; pt navigator's helped obtained in confirming/expanding coverage. Hyponatremia - improved to 135 - Received NSS IVF - stopped for improved PO intake - Trend BMP Hypomagnesemia - this AM 1.6 - repleted with 2g mag sulphate Hypophosphatemia - improved - repleted with sodium phosphate 15mmol Hyperbilirubinemia - resolved - Unsure of cause, was previously also elevated 09/16 likely Gilbert's Disease - Liver WNL on CT - Continue cholestyramine 4g daily - Trend LFTs Metastatic colon cancer with lung nodules - Oncologist, Dr. Quintana - Continue probiotics and nystatin HTN, HLD, A.fib - Continue metoprolol, furosemide, atorvastatin - Subtherapeutic INR on admission 1.3 - Was placed on heparin drip for easy reversal in case of need for procedural intervention (stopped 02/12) - Restarted warfarin Hypothyroidism- TSH Wnl; Free T4 of 3 - Continue levothyroxine (records confirm dose of 1200mcg daily) ANA, asthma - stable - Continue albuterol, Combivent, montelukast - Continue CPAP overnight GERD - Continue pantoprazole, ranitidine VTE ppx: SCDs; warfarin; lovenox Code: FULL Resident Physician Supervision Note: I interviewed and examined the patient. Discussed with Dr. Noor and agree with findings and plan as documented in the note. Any exceptions or clarifications are listed here: None Documented By: Lane Roman feeling better but still a lot of vaginal pain L arm hurts to move too - was like this prior to admission as well vitals noted fatigued appearing less uncomfortable ost - L arm biceps region high tone/tender/decreased ROM - post-isometric relaxation aimed at improving extension at elbow - improved/tolerated well labial cellulitis - abx - awaiting further growth on cx. supportive care and pain control. L arm pain - appearing c/w biceps tendonitis - she notes that it occurred shortly after getting gCSF injection - discussed imaging but appearing low yield at this point (if DVT is already having anticoagulation titrated up; examines c/w tendonitis) --> OMT, ROM exercises, voltaren gel somatic dysfunction L arm - OMT as above question of intraabdominal infection - thought to be from appearance from abx beads. surgery input ongoing, assessment stable DM - poor control as outpt; better control - continue current and follow DVT proph - warfarin (for now since INR so low will also overlap w low dose pharmacologic proph) otherwise as above Resident Involvement: Resident Care Provided Care Provided: Adult Hospital Medicine
[2018-02-14] MEDS: DICLOFENAC SOD 1% GEL 100 GM TUBE EXT SCH ×2 (18:00→20:50)
[2018-02-14] MEDS ORDERED: KETOROLAC TROMETHAMINE 15 MG/ML VIAL IM SCH (18:00)
[2018-02-14] MEDS: MONTELUKAST SOD 10 MG TAB PO SCH (20:52)
[2018-02-14] MEDS: ATORVASTATIN 20 MG TAB PO SCH (20:52)
[2018-02-14 22:58] VITALS: BP 96/63; PULSE 101; TEMP 36.9; O2SAT 95
[2018-02-14] MEDS: KETOROLAC TROMETHAMINE 15 MG/ML VIAL IV. SCH (23:33)
[2018-02-14] MEDS: PIPERACILL/TAZOBAC IV 4.5 GM in D5W 100 ML IV SCH (23:35)
[2018-02-15] MEDS: KETOROLAC TROMETHAMINE 15 MG/ML VIAL IV. SCH ×2 (05:39→12:05)
[2018-02-15] MEDS: LEVOTHYROXINE 200 MCG TAB PO SCH (05:39)
[2018-02-15 06:13] LABS: HEMATOCRIT 32.9 % (37-47); HEMOGLOBIN 10.6 g/dL (12.0-16.0); MEAN CELL VOLUME 78.3 fL (80-100); MEAN CORPUSCULAR HEMOGLOBIN 25.2 pg (25-34); MEAN CORPUSCULAR HGB CONC 32.2 g/dl (32-36); MEAN PLATELET VOLUME 9.2 fL (7.4-10.4); PLATELET COUNT 148 K/uL (130-400); RED CELL DISTRIBUTION WIDTH CV 21.9 % (11.5-14.5); RED CELL DISTRIBUTION WIDTH SD 60.3 fL (36.4-46.3); WHITE BLOOD COUNT 11.91 K/uL (4.8-10.8)
[2018-02-15 06:23] LABS: INR 1.5 (0.9-1.1); PTT PATIENT 40.8 SECONDS (21.0-31.0)
[2018-02-15 06:51] LABS: ALBUMIN 1.9 gm/dl (3.4-5.0); CALCIUM 8.8 mg/dl (8.5-10.1); CREATININE 0.73 mg/dl (0.60-1.20); POTASSIUM 3.9 mmol/L (3.5-5.1); TOTAL PROTEIN 5.8 gm/dl (6.4-8.2)
[2018-02-15 07:10] LABS: BASO % 0.6 %; BASO ABS # 0.07 K/uL (0-0.2); EOS % 0.3 %; EOS ABS # 0.03 K/uL (0-0.5); LYMPH % 20.8 %; LYMPH ABS # 2.48 K/uL (1.2-3.4); MONO % 10.6 %; MONO ABS # 1.26 K/uL (0.11-0.59); NEUT % 61.8 %; NEUT ABS # 7.37 K/uL (1.4-6.5)
[2018-02-15 07:18] VITALS: BP 100/72; PULSE 18; PULSE 90; TEMP 36.6; O2SAT 93
[2018-02-15] MEDS: PIPERACILL/TAZOBAC IV 4.5 GM in D5W 100 ML IV SCH ×2 (08:10→15:36)
[2018-02-15] MEDS: CHOLESTYRAMINE LIGHT 4 GM PKT PO SCH (08:17)
[2018-02-15] MEDS: MAGNESIUM OXIDE 400 MG TAB PO SCH (08:17)
[2018-02-15] MEDS: BOOST GLUCOSE CONTROL PO SCH (08:18)
[2018-02-15] MEDS: LORATADINE 10 MG TAB PO SCH (08:18)
[2018-02-15] MEDS: LACTOBACILLUS ACIDOPHILUS (FLORANEX) TAB PO SCH ×2 (08:18→13:48)
[2018-02-15] MEDS: IPRATROPIUM BROMIDE/ALBUTEROL respimat INH INH SCH ×3 (08:18→17:04)
[2018-02-15] MEDS: NYSTATIN SUSP 500,000 U/5 ML UDC PO SCH ×3 (08:18→17:04)
[2018-02-15] MEDS: METOPROLOL SUCC 50MG EXT REL TAB PO SCH (08:18)
[2018-02-15] MEDS: DICLOFENAC SOD 1% GEL 100 GM TUBE EXT SCH ×3 (08:19→17:04)
[2018-02-15] MEDS: INSULIN ASPART 100 UNITS/ML 3 ML PEN SC SCH ×3 (08:31→17:43)
[2018-02-15] MEDS: INSULIN GLARGINE SOLOSTAR 100 UNITS/ML 3 ML PEN SC SCH (08:32)
[2018-02-15] MEDS ORDERED: ENOXAPARIN 40 MG/0.4 ML SYR SQ SCH (09:00)
--- NOTE | 2018-02-15 12:15 | SURGERY PROGRESS NOTE ---
DATE: 02/15/2018 Luisa was seen today 2 days after we implanted antibiotic beads into a left labial abscess. This grew out methicillin-resistant staph aureus and Corynebacterium species. She feels much better. Her vital signs are stable. We are going to get her up ambulating in the hallway today. I am quite pleased with her. Her white count was 11,910 today. From my standpoint, she can be discharged. I will see her back in the office next on Sunday to evaluate her wound.
[2018-02-15] MEDS ORDERED: DOXYCYCLINE HYCLATE 100 MG CAP PO SCH (14:30)
[2018-02-15] MEDS: WARFARIN SOD 2.5 MG TAB PO SCH (15:29)
[2018-02-15] MEDS ORDERED: DXY100 PO (15:48)
[2018-02-15] MEDS ORDERED: CPR/500 PO (15:49)
[2018-02-15 15:52] VITALS: BP 103/77; PULSE 102; TEMP 36.7; O2SAT 97
[2018-02-15 15:54] VITALS: BP 108/70; PULSE 91; O2SAT 96
--- NOTE | 2018-02-15 16:23 | Discharge Instructions ---
Discharge Instructions Date of Service February 15, 2018. Admission Reason for Admission: Abscess Of Left Genital Labia Discharge Discharge Diagnosis / Problem: Labial abscess and ESBL E. coli UTI Discharge Goals Goal(s): Decrease discomfort, Diagnostic testing, Therapeutic intervention Activity Recommendations Activity Limitations: resume your previous activity . Instructions / Follow-Up Instructions / Follow-Up Ms. Joana mcginnis were admitted for a labial abscess which was drained and packed with antibiotic beads by Dr. Delatorre. We also found out you had a bladder infection despite the fact that you did not report any discomfort when urinating. We treated you with antibiotics and gave you pain medications to decrease your discomfort. You are being discharged with antibiotics: another 3 days of ciprofloxacin 500mg twice a day for your bladder infection and another 10 days of doxycycline 100mg twice a day for your labial abscess. While you were here your blood sugars were also very high so we changed your insulin regimen. Please continue the regimen listed below and follow up with your primary care doctor closely to better control your sugars. As we discussed poor control of your blood sugar can raise your risk for infections like your labial abscess and clot your arteries causing strokes, heart attacks, kidney disease, blindness, and limb amputations. Our religious educator spoke with you as well. We recommend giving yourself your premeal insulin amount listed below ( novolog 10 units) prior to eating then checking your blood sugar in [address] you can avoid certain foods that may raise your blood sugar more than other foods. We discussed your eating habits and it seems that you also rely heavily on Gatorade and soda and encouraged you to stay away from those sugary drinks or go with the diet/zero calorie versions. We recommend eating more lean meats like chicken, turkey and fruits and vegetables and less processed and starchy foods like white bread and sweet desserts. Please follow the following instructions after your discharge: -Take Ciprofloxacin 500mg twice a day for another 3 days until Sunday, 02/18 - please go to the lab 1 day after finishing your ciprofloxacin course so on Tuesday 02/20 to give a urine sample. We want to make sure your urine infection was treated and gone. Your doctor will get the results and follow up with you. We have given you a script to take to the lab with you. -Take Doxycycline 100mg twice a day for 10 days until 02/25/18 -Please take Lantus 30 units every morning after checking your pre-breakfast/ meal fasting glucose -Please give your self 10 units of novolog before each meal and check your blood sugar in 2 hours -Continue taking your other medications as prescribed prior to your admission and as listed in your discharge instructions -Follow up with Dr. Delatorre as recommended -Follow up with your primary care doctor, Dr. Vivar in 3-4 days Current Hospital Diet Patient's current hospital diet: AHA Diet (Heart Healthy), Diabetes Type 2 Diet Discharge Diet Recommended Diet: Diabetes Type 2 Diet Procedures Procedures Performed: Left Incision and Drainage Left Labial Abscess, packing with Stimulan Antibiotic Beads Pending Studies Studies pending at discharge: no Laboratory Results Hemoglobin A1c Test 02/12/18 07:28 Range/Units Estimated Average Glucose 286 mg/dl Hemoglobin A1c 11.6 H 4.5-5.6 % Medical Emergencies . Who to Call and When: Medical Emergencies: If at any time you feel your situation is an emergency, please call 911 immediately. . Non-Emergent Contact Non-Emergency issues call your: Primary Care Provider Call Non-Emergent contact if: temperature is above 100.5, your pain is worsening . . "Provider Documentation" section prepared by Daniel Nickerson. .
[2018-02-15 16:55] VITALS: BP 108/70; PULSE 91; TEMP 36.7; O2SAT 96
--- NOTE | 2018-02-15 17:06 | Discharge Summary ---
Discharge Summary Date of Service February 15, 2018. Discharge Summary Admission Date: February 11, 2018 at 23:24 Discharge Date: February 15, 2018 Discharge Disposition: Home Principal Diagnosis: Labial abscess and ESBL E. Coli UTI Problems/Secondary Diagnoses: Uncontrolled DM2 Hyponatremia Hyperbilirubinemia Metastatic colon cancer with lung nodules HTN HLD Afib Hypothyroidism ANA asthma GERD Immunizations: Have You Had Influenza Vaccine: Unknown Influenza Vaccine Date: Jun 19, 2011 History of Tetanus Vaccine?: Yes History of Pneumococcal: Yes Pneumococcal Date: February 23, 2011 History of Hepatitis B Vaccine: Yes Procedures: CT SCAN OF THE ABDOMEN AND PELVIS WITHOUT CONTRAST CLINICAL HISTORY: Labial abscess EVALUATE FOR FISTULA COMPARISON STUDY: 12/15/2017 TECHNIQUE: CT scan of the abdomen and pelvis was performed from the lung bases to the proximal femurs. Images are reviewed in the axial, sagittal, and coronal planes. IV contrast was not administered for this examination. A dose lowering technique was utilized adhering to the principles of ALARA. CT DOSE: 1478.94 mGy.cm FINDINGS: Lower chest: Postsurgical changes are present at the left lung base. There is left basilar atelectatic change. Liver: The unenhanced liver is normal in size, contour, and attenuation. There is no intrahepatic biliary ductal dilatation. Gallbladder: Unremarkable. Spleen: Normal in size and attenuation. Pancreas: Unremarkable. Adrenal glands: Unremarkable. Kidneys: The unenhanced kidneys are normal in size without hydronephrosis. There is no contour deforming renal mass lesion. No renal calculi are identified. Bowel: There are no transition zones indicate bowel obstruction. There are postsurgical changes present within the right lower quadrant. There is a 10.6 cm fluid collection within the right abdominal wall. This extends to the skin surface. An abscess cannot be excluded. Clinical correlation is advocated. There are postsurgical changes involving the rectum. There is presacral soft tissue thickening and infiltration of the perirectal fat. There are no fluid collections to indicate a drainable abscess. Evaluation for a fistula is limited given the lack of intravenous and oral contrast. Peritoneum: There is no intraperitoneal free air or abdominal ascites. Vasculature: The abdominal aorta is normal in course and caliber. Adenopathy: Inguinal and iliac lymph nodes remain borderline enlarged. Pelvic viscera: The uterus appears surgically absent. There is infiltration the perirectal fat and presacral soft tissues as described above. Skeletal structures: No destructive osseous lesions are seen. IMPRESSION: 1. Postsurgical changes of a presumed low anterior resection and reversal of the right lower quadrant loop ileostomy 2. 10 cm right lower quadrant abdominal wall fluid collection. Clinical correlation to exclude abscess is recommended. 3. Infiltration of the perirectal fat and presacral soft tissue thickening. There are no fluid collections to indicate a drainable abscess. Evaluation for fistula is limited given the lack of intravenous and oral contrast 4. No evidence of bowel obstruction. No evidence of free air 5. Borderline enlarged iliac and inguinal lymph nodes unchanged from the preceding study. Urine culture 1. ESCHERICHIA COLI ESBL Target Route Dose RX AB Cost M.I.C. IQ ------ ----- ------ -- ------ -------- - ------ TRIMET/SULFA S <=2/38 AMPICILLIN R >16 AMPICILLIN/SUL I 16/8 CEFAZOLIN R >16 CEFOXITIN S <=8 CEFOTAXIME R >32 CEFTRIAXONE R >32 CEFEPIME R >16 CEFUROXIME R >16 IMIPENEM S <=1 GENTAMICIN S <=4 TOBRAMYCIN S <=4 AMIKACIN S <=16 CIPROFLOXACIN S <=1 LEVOFLOXACIN S <=2 ERTAPENEM S <=1 NITROFURANTOIN S <=32 PIP/TAZO S <=16 S = SENSITIVE I = INTERMEDIATE R = RESISTANT Wound culture - labial abscess 1. STAPH. AUREUS MRSA Target Route Dose RX AB Cost M.I.C. IQ ------ ----- ------ -- ------ -------- - ------ TRIMET/SULFA S <=0.5/ 9.5 * OXACILLIN R >2 VANCOMYCIN S 2 ERYTHROMYCIN R >4 TETRACYCLINE S <=4 CLINDAMYCIN S <=0.5 DAPTOMYCIN S <=0.5 RIFAMPIN S <=1 Consultations: Surgery - Dr. Delatorre DATABASE ADMINISTRATOR - Dr. Gallagher Medication Reconciliation New Medications: Ciprofloxacin (Ciprofloxacin HCl) 500 Mg Tab 500 MG PO BID for 3 Days, #6 TAB Doxycycline Hyclate (Doxycycline Hyclate) 100 Mg Cap 100 MG PO BID for 10 Days, #20 CAP Continued Medications: Albuterol Hfa (Ventolin Hfa) 200 Puffs/90577 Mcg Aers 2-4 PUFFS INH Q6H PRN for ASTHMA Atorvastatin (Lipitor) 20 Mg Tab 20 MG PO HS Cholestyramine (Bulk) (Cholestyramine) 1 Pow Pow 1 PKT DAILY Famotidine (Pepcid) 20 Mg Tab 20 MG PO DAILY PRN for GI UPSET Fluticasone Furoate-Vilanterol (Breo Ellipta 200-25 Mcg/INH) 1 Inh Inh 1 PUFF INH QAM Furosemide (Lasix) 20 Mg Tab 20 MG PO QAM PRN for FLUID OVERLOAD Insulin Aspart (Novolog) 100 Units/Ml Inj UNITS SQ TIDM SLIDING SCALE Insulin Glargine (Toujeo Solostar) 300 Unit/Ml Inj 9 UNITS SQ QAM Ipratropium-Albuterol (Combivent Respimat) 1 Aer Aer 1 PUFFS INH QID Lactobacillus Acidophilus (Lactinex) Tab 4 TAB PO TID Levothyroxine Sodium (Levothyroxine Sodium) 200 Mcg Tab 1200 MCG PO DAILY Loratadine (Claritin) 10 Mg Cap 10 MG PO QAM Magnesium Oxide (Mag-Ox) 400 Mg Tab 400 MG PO DAILY Metoprolol Succinate (Toprol Xl) 50 Mg Tabcr 25 MG PO DAILY Montelukast Sod (Montelukast Sodium) 10 Mg Tab 10 MG PO HS Ondansetron Hcl (Zofran) 8 Mg Tab 8 MG PO Q6 PRN for Nausea Oxycodone/Acetaminophen 5MG/325MG (Percocet 5MG/325MG) Tab 1 TAB PO BID PRN for Pain for 30 Days, TAB NEEDED FOR PAIN ONLY IF TYLENOL IS NOT SUFFICIENT. Potassium Chloride (Micro-K Ext Rel) 10 Meq Capcr 10 MEQ PO QAM PRN for ONLY WHEN LASIX IS TAKEN Warfarin Sod (Coumadin) 5 Mg Tab 5 MG PO Q2D Warfarin Sod (Coumadin) 2.5 Mg Tab 2.5 MG PO Q2D Discharge Exam Review of Systems: Constitutional: No fever, No chills Respiratory: No shortness of breath Cardiovascular: No chest pain Abdomen: No pain, No nausea, No vomiting Musculoskeletal: + problem reported (L arm muscle spasm- improved) Genitourinary - Female: + problem reported (L labial abscess - improving), No dysuria, No hematuria Physical Exam: General Appearance: no apparent distress Eyes: normal inspection Respiratory/Chest: lungs clear, normal breath sounds Cardiovascular: regular rate, rhythm, no murmur Abdomen / GI: normal bowel sounds, non tender, soft Extremities: no calf tenderness, no pedal edema, + pertinent finding (L upper arm region mildly TTP (improving) with improved ROM ) Neurologic/Psychiatric: alert, oriented x 3 Skin: + pertinent finding (L labial erythema/induration w/t intact sutures s /p I&D with minimal discharge) Hospital Course 51 yoF with hx of A fib, DM II, HTN, HLD, hypothyroidism, asthma, metastatic colon cancer s/p colectomy w/ ostomy on 10/18 and ostomy reversal on 11/[address] Rogers and lung nodules currently on chemotherapy, ANA on CPAP, morbid obesity and depression who presented with a 1 week history of painful labial cellulitis in the setting of poorly controlled DM and immunosuppression. NOW s/p I&D day 2 and packing of antibiotics by Dr. Delatorre with improving pain. Also found to have ESBL E. coli UTI which was treated with Zosyn for 4 days and pt was discharged with 3 more days of cipro 500 BID as we could not find any pharmacy that carried fosfomycin and the risks of keeping the pt in the hospital for 3 more days of zosyn would outweight the benefits. Based on culture, it was susceptible to cipro. Pt was also discharged on a 10 day course of doxy 100mg BID for staph MRSA labial abscess. Pt was also given a script for repeat urine culture on 02/20 after course of cipro to ensure adequately treated (results requested to be sent to PCP, Dr. Vivar). Pt's insulin regimen was also increased for poorly controlled diabetes and HgA1c of 11. She received diabetes education and instructed to follow up close with PCP for diabetes. Labial cellulitis - s/p I&D day 2 - remains afebrile with improved WBC of 11.9 - Blood Cx NGTD - Wound Cx - mod staph aureus MRSA - discharged with 10 day course of doxycycline 100mg BID - Received empiric Abx coverage with Zosyn during admission and a dose of doxy prior to discharge - Received Percocet (home med), toraldol and morphine PRN for pain control - Consulted dry mixer: no drainable fluctuance; IV abx recommended - Surgery - Dr. Delatorre: abscess drained and packed with antibiotic beads UTI - remained asymptomatic - UA positive - Urine Cx ESBL E.coli - Received Zosyn during admission x 4 days -discharged with ciprofloxacin 3 day course 500mg BID and repeat urine culture on 02/20 (scripts provided; results to be sent to PCP) LUE muscle spasm vs. DVT - Improved with Voltaren gel - given on anticoagulation no need to obtain doppler US for DVT as management unlikely to change and most likely consistent with muscle spasm based on exam Concern for intra-abdominal infection - benign exam, afebrile, mildly elevated WBC - CT abdo/pelvis: 10 cm right lower quadrant abdominal wall fluid collection. Concern for abscess. Also infiltration of the perirectal fat and presacral soft tissue thickening - Blood Cx NGTD - Empiric coverage with Zosyn - Surgery consulted: no concern for abdominal infection at this time; fluid collection likely consistent with abx beads placed Uncontrolled DM II - HgbA1c today 11.6 and HgbA1c on 10/18 was 10.3 - Received Lantus 12units BID + ISS with checks ac/hs and SS: goal 120-160 CF: 10; CHO ratio 1:8 - had a thorough discussion with patient regarding why it is important to improve control; recommended dietary changes and checking blood sugars more frequency; pt reported testing only twice due to lack of coverage for strips; pt navigator's helped obtained in confirming/expanding coverage. - Discharged with Lantus 30 units QAM and 10 units novolog before each meal based on 24 hour insulin requirement of 62 units - PCP follow up for further management Hyponatremia - improved - Received NSS IVF - stopped for improved PO intake Hypomagnesemia -improved - repleted with 2g mag sulphate x 2 Hypophosphatemia - improved - repleted with sodium phosphate 15mmol Hyperbilirubinemia - resolved - Unsure of cause, was previously also elevated 09/16 likely Gilbert's Disease - Liver WNL on CT - Continued cholestyramine 4g daily Metastatic colon cancer with lung nodules - Oncologist, Dr. Quintana - Continued probiotics and nystatin HTN, HLD, A.fib - Continued metoprolol, furosemide, atorvastatin - Subtherapeutic INR on admission 1.3 - Was placed on heparin drip for easy reversal in case of need for procedural intervention (stopped 02/12) - Restarted warfarin home dosage; INR today was 1.5 (improved) - PCP follow up for further management Hypothyroidism- TSH Wnl; Free T4 of 3 - Continued levothyroxine (records confirm dose of 1200mcg daily) ANA, asthma - stable - Continued albuterol, Combivent, montelukast - Continued CPAP overnight GERD - Continued pantoprazole, ranitidine VTE ppx: SCDs; warfarin; lovenox Code: FULL Resident Physician Supervision Note: I interviewed and examined the patient. Discussed with Dr. Nickerson and agree with findings and plan as documented in the note. Any exceptions or clarifications are listed here: None Documented By: Lane Roman feeling better pain getting better wants to be able to go home vitals noted nad breathing unlabored no pallor or icterus, nearly full ROM arm!! labial abscess - improved post I&D, finish abx w doxy ESBL in urine - not entirely clear UTI, but organism + immune compromise warrants treatment - finish w cipro, Urine culture next week arm pain - improving w OMT and voltaren gel uncontrolled DM - better control as above afib - subtherapeutic - discharge on coumadin, INR next week Total Time Spent: Greater than 30 minutes This includes examination of the patient, discharge planning, medication reconciliation, and communication with other providers. Discharge Instructions Please refer to the electronic Patient Visit Report (Discharge Instructions) for additional information. Additional Copies To Madison Vivar M.D.
== END 2018-02-15 18:00 | disposition home health service (06) | DRG 758 ==
LOC: C.EDB 18:37 → C.2E 23:24 → UNDOADMIN 23:24 → ENRESERV 23:35 → C.MSW 02-13 14:46
PROVIDERS: ADMIT Student in an Organized Health Care Education/Training Program; ATTEND Family Medicine
PROC: 0U9 Female Reproductive System, Drainage (ICD-10-PCS; principal; 2018-02-13 08:15)
DX: N76.2 Acute vulvitis (principal); N39.0 Urinary tract infection, site not specified; Z68.41 Body mass index [BMI] 40.0-44.9, adult; L03.90 Cellulitis, unspecified; C18.9 Malignant neoplasm of colon, unspecified; C78.02 Secondary malignant neoplasm of left lung; E87.1 Hypo-osmolality and hyponatremia; E66.01 Morbid (severe) obesity due to excess calories; E11.65 Type 2 diabetes mellitus with hyperglycemia; I48.91 Unspecified atrial fibrillation; I34.0 Nonrheumatic mitral (valve) insufficiency; J45.909 Unspecified asthma, uncomplicated; E78.5 Hyperlipidemia, unspecified; K21.9 Gastro-esophageal reflux disease without esophagitis; B96.20 Unspecified Escherichia coli [E. coli] as the cause of diseases classified elsewhere; I10 Essential (primary) hypertension; E03.9 Hypothyroidism, unspecified; E86.0 Dehydration; G47.33 Obstructive sleep apnea (adult) (pediatric); E83.42 Hypomagnesemia; F32.9 Major depressive disorder, single episode, unspecified; D89.9 Disorder involving the immune mechanism, unspecified; E80.6 Other disorders of bilirubin metabolism; E83.39 Other disorders of phosphorus metabolism; M79.602 Pain in left arm; Z90.49 Acquired absence of other specified parts of digestive tract; Z96.653 Presence of artificial knee joint, bilateral; Z79.01 Long term (current) use of anticoagulants; Z79.4 Long term (current) use of insulin; Z98.51 Tubal ligation status; Z91.030 Bee allergy status; Z88.2 Allergy status to sulfonamides; Z88.1 Allergy status to other antibiotic agents; Z86.14 Personal history of Methicillin resistant Staphylococcus aureus infection; Z90.710 Acquired absence of both cervix and uterus; Z83.3 Family history of diabetes mellitus; Z82.49 Family history of ischemic heart disease and other diseases of the circulatory system; Z82.0 Family history of epilepsy and other diseases of the nervous system

== ENCOUNTER → 2018-02-20 | Outpatient (CLI) | payer OTHER ==
[~2018-02-20] MED LIST changes: +CMD25 PO; +CPR/500 PO; +DXY100 PO; -RXC5 PO
== END ==
LOC: C.LABPVFM 12:02
PROVIDERS: ATTEND Hospitalist
DX: N39.0 Urinary tract infection, site not specified (principal); B96.89 Other specified bacterial agents as the cause of diseases classified elsewhere

== ENCOUNTER → 2018-04-25 | Outpatient (CLI) | payer OTHER ==
[~2018-04-25] MED LIST changes: -CPR/500 PO; -DXY100 PO; +SENN-61 PO
[2018-04-25 10:35] LABS: HEMATOCRIT 36.2 % (37-47); HEMOGLOBIN 12.2 g/dL (12.0-16.0); MEAN CELL VOLUME 85.2 fL (80-100); MEAN CORPUSCULAR HEMOGLOBIN 28.7 pg (25-34); MEAN CORPUSCULAR HGB CONC 33.7 g/dl (32-36); MEAN PLATELET VOLUME 9.4 fL (7.4-10.4); NUCLEATED RED BLOOD CELL ABS 0.06 K/uL (0-0); PLATELET COUNT 200 K/uL (130-400); RED CELL DISTRIBUTION WIDTH CV 17.7 % (11.5-14.5); RED CELL DISTRIBUTION WIDTH SD 53.6 fL (36.4-46.3); WHITE BLOOD COUNT 10.22 K/uL (4.8-10.8)
[2018-04-25 11:39] LABS: ALKALINE PHOSPHATASE 143 U/L (45-117); ALT/SGPT 29 U/L (12-78); AST/SGOT 41 U/L (15-37); BLOOD UREA NITROGEN 9 mg/dl (7-18); CALCIUM 8.7 mg/dl (8.5-10.1); CARBON DIOXIDE 27 mmol/L (21-32); GLUCOSE 311 mg/dl (70-99); SODIUM 139 mmol/L (136-145); TOTAL PROTEIN 6.6 gm/dl (6.4-8.2)
== END | disposition home or self-care (01) ==
LOC: C.LABSPEC 10:23
PROVIDERS: ATTEND Internal Medicine Hematology & Oncology
DX: C20 Malignant neoplasm of rectum (principal); C19 Malignant neoplasm of rectosigmoid junction

== ENCOUNTER 2018-11-16 12:38 | Inpatient (IN) ==
[2018-11-16 13:32] LABS: Basophils # (auto) 0.02 K/uL (0-0.2); Basophils % (auto) 0.3 %; Eosinophils # (auto) 0.24 K/uL (0-0.5); Eosinophils % (auto) 3.5 %; Hematocrit (blood only) 37.9 % (37-47); Hemoglobin 12.1 g/dL (12.0-16.0); Immature Granulocytes # (auto) 0.02 K/uL (0.00-0.02); Immature Granulocytes % (auto) 0.3 %; Lymphocytes # (auto) 2.25 K/uL (1.2-3.4); Lymphocytes % (auto) 32.9 %; Mean Corpuscular Hgb Conc 31.9 g/dL (32-36); Mean Corpuscular Volume 82.8 fL (80-100); Mean Platelet Volume 9.5 fL (7.4-10.4); Monocytes # (auto) 0.64 K/uL (0.11-0.59); Monocytes % (auto) 9.4 %; Neutrophils # (auto) 3.67 K/uL (1.4-6.5); Neutrophils % (auto) 53.6 %; Platelet Count 212 K/uL (130-400); RDW Coefficient of Variation 20.3 % (11.5-14.5); Red Blood Count 4.58 M/uL (4.2-5.4); White Blood Count 6.84 K/uL (4.8-10.8)
[2018-11-16 13:56] LABS: Appearance Urine Clear (Clear); Bilirubin Urine Negative (Negative); Blood Urine Negative (Negative); Color Urine Yellow; Glucose Urine UA 3+ (Negative); Ketones Urine Negative (Negative); Leukocyte Esterase Urine Negative (Negative); Nitrite Urine Negative (Negative); Protein Urine Negative (Negative); Specific Gravity Urine 1.011 (1.000-1.030); Urobilinogen Urine Negative (Negative)
[2018-11-16 13:57] LABS: Anisocytosis Present; Echinocytes 1+
[2018-11-16 14:01] LABS: Albumin Globulin Ratio 0.6 (0.9-2); Albumin Level 2.4 gm/dl (3.4-5.0); BUN Creatinine Ratio 11.6 (10-20); Bilirubin,Total 3.8 mg/dl (0.2-1); Creatinine Clr Calc Pharmacy 64.2 ml/min; Est GFR (African American) 79.2; Est GFR (Non-African American) 68.3; Potassium 3.5 mmol/L (3.5-5.1); Total Protein 6.4 gm/dl (6.4-8.2)
[2018-11-16 14:12] LABS: Beta-Hydroxybutyrate 0.96 mg/dl (0.2-2.81)
[2018-11-16] MEDS ORDERED: SODIUM CHLORIDE 0.9% 1000ML 250 ML IV ONE (14:25)
[2018-11-16 14:34] LABS: INR 1.7 (0.9-1.1); Prothrombin Time 16.7 Seconds (9.0-12.0)
[2018-11-16 14:46] LABS: Bilirubin Direct 2.3 mg/dl (0-0.2); Magnesium 1.4 mg/dl (1.8-2.4); Phosphorus 1.6 mg/dl (2.5-4.9); Troponin I 0.047 ng/ml (0-0.045)
[2018-11-16 14:50] LABS: Base Excess VBG 5.2 mEq/L; HCO3 VBG 30 mmol/L; PCO2 VBG 45 mmHg (38-50); PO2 VBG 31 mmHg; pH VBG 7.44 (7.36-7.41)
[2018-11-16 14:51] LABS: Oxygen Saturation VBG < 60.0 %
--- NOTE | 2018-11-16 14:53 | XRay Report ---
XR chest 1V portable CLINICAL HISTORY: Abdominal pain. COMPARISON STUDY: Chest CT September 25, 2018 and chest radiograph November 06, 2018. FINDINGS: Left subclavian [id number] is in place. Cardiomegaly is unchanged. There is no pneumotho rax or pleural effusion. There is pulmonary vascular congestion with suspected mild pulmonary edema. There is no lobar consolidation. IMPRESSION: Pulmonary vascular congestion with suspected mild pulmonary edema. Electronically signed by: Humberto Montanez M.D. 11/16/2018 2:52 PM
--- NOTE | 2018-11-16 15:33 | CT Scan Report ---
ABDOMEN AND PELVIS CT WITHOUT CONTRAST CT DOSE: 893.86 mGy.cm HISTORY: elevated LFTs abdominal pain TECHNIQUE: Multiaxial CT images of the abdomen and pelvis were performed without contrast. A dose lo wering technique was utilized adhering to the principles of ALARA. COMPARISON STUDY: Abdomen pelvis CT 09/25/2018. FINDINGS: Increase in size in the small bilateral pleural effusions. 6 mm right lower lobe nodule is again noted. Severe body wall edema has progressed. Right lower quadrant fat-containing abdominal wal l hernia remains unchanged. Normal bladder. No hepatic or splenic masses on this unenhanced study. Th e adrenal glands, pancreas, and kidneys are unremarkable. No hydronephrosis. Suspect a punctate galls tone. No gallbladder wall thickening. No retroperitoneal lymphadenopathy. Gastrohepatic varices is no [place]. Anastomotic suture material at the rectosigmoid junction. Question of a tiny fistula extending t o the presacral soft tissues where there is focal soft tissue thickening. This could also represent a normal side to end anastomosis of the bowel. This remains unchanged. Colonic diverticulosis. No pura l wall thickening or obstruction. Uterus surgically absent. Ovaries are stable. Normal appendix. Sutu re material within the left lower lobe is again noted. IMPRESSION: 1. Interval progression of the small bilateral pleural effusions and diffuse body wall edema. 2. No bowel wall thickening or obstruction. 3. Suspect cholelithiasis. No gallbladder wall thickening. 4. Stable 6 mm nodule within the right lower lobe. 5. Rectosigmoid anastomosis. Small linear focus of gas extending to the presacral soft tissues which could represent a tiny fistula or the normal side to end anastomosis of the bowel. This remains uncha nged. Electronically signed by: Anthony Davis M.D. 11/16/2018 3:31 PM
[2018-11-16] MEDS ORDERED: POTASSIUM PHOS 3 MMOL/1 ML INFUSION IV STA ×2 (15:58→19:50)
[2018-11-16] MEDS: MAGNESIUM SULFATE / D5W 1 GM/100 ML BAG IV SCH ×2 (16:06→18:44)
[2018-11-16] MEDS ORDERED: POTASSIUM PHOSPHATE 9 MMOL in SODIUM CHLORIDE 0.9% 250 ML IV ONE (16:15)
--- NOTE | 2018-11-16 16:21 | History & Physical Report ---
Date of Service November 16, 2018 Assessment & Plan (1) Anasarca: 52 y/o F Hx AF, DM II, HTN, HLD, hypothyroidism, asthma, ANA - CPAP, obesity, depression, diastolic CHF, metastatic colon CA - colectomy w/ostomy , ostomy reversal 11/18 currently receiving chemotherapy. The pt has been struggling with protein malnutrition, anasarca and abdominal discomfort. She has chronic exertional dyspnea as well. She has gained approximately 40 pounds over the past 4 weeks. She had an appointment scheduled with her primary MD this coming Sunday. Labs were drawn Sunday in preparation and she was instructed to attend the hospital a day later when they returned with multiple abnormalities. Initial labs in the ER confirm hypomagnesemia, hypophosphatemia , hyperglycemia, an elevated bilirubin which is new, and severe protein malnutrition. Troponin is also elevated but this appears to be chronic. A CT abdomen was obtained showing progression of body wall edema and small BL pleural effusions as acute findings. 1) Anasarca leading to abdominal discomfort and SOB - I am not confident that there is a long-term solution for this. Her diuretic therapy needs to be optimized and steps should be taken to improve protein intake. At present for relief of her discomfort, we will infuse Lasix with Albumin 12.5 G x 1 and proceed with BID IV Lasix. I/O and daily weight will be monitored. A palliative consult should be considered if diuresis is ineffective. She is placed on a low Na diet. 2) Hypomagnesemia, hypophosphatemia - repleted 3) Elevated bilirubin - cause is not clear - she may need a contrast study to evaluate for liver mets although she would require pretreatment due to dye allergy. We will trend AM. If there is an upward trend would consider GI consult. 4) Diastolic CHF - Unlikely to be playing a major role in her anasarca as this was not a definitive finding on echo and should have responded well to Lasix 5) Chronic AF - EKG is unchanged - she is anticoagulated with Coumadin and will receive an additional dose as her INR is subtherapeutic. Cont Metoprolol 6) DM II - placed on a SS 7) Colon CA - can f/u with her oncologist 8) Hypothyroidim- cont levothyroxine Full code - Coumadin prophylaxis Total time for this admit including review of labs, meds, imaging, records - discussion with pt and ER attending - 38 min Present on Admission?: Yes History of Present Illness Primary Care Provider: Madison Vivar MD 52 y/o F Hx AF, DM II, HTN, HLD, hypothyroidism, asthma, ANA - CPAP, obesity, depression, diastolic CHF, metastatic colon CA - colectomy w/ ostomy 10/18, ostomy reversal 11/18 currently receiving chemotherapy. The pt has been struggling with protein malnutrition, anasarca and abdominal discomfort. She has chronic exertional dyspnea as well. She has gained approximately 40 pounds over the past 4 weeks. She had an appointment scheduled with her primary MD this coming Sunday. Labs were drawn Sunday in preparation and she was instructed to attend the hospital a day later when they returned with multiple abnormalities. Initial labs in the ER confirm hypomagnesemia, hypophosphatemia , hyperglycemia, an elevated bilirubin which is new, and severe protein malnutrition. Troponin is also elevated but this appears to be chronic. A CT abdomen was obtained showing progression of body wall edema and small BL pleural effusions as acute findings. PMH: 1) Metastatic colon CA - lung mets 2) Diastolic CHF 3) Chronic anasarca 4) Obesity 5) Asthma 6) ANA - CPAP 7) Depression 8) Hypothyroidism 9) DM II 10) Chronic atrial fibrillation 11) HTN 12) HLD 13) Chronic dysphagia Surgical: Colectomy w/ ostomy 10/18, ostomy reversal 11/18 Social: Does not drink or smoke Family: DM II, CAD Allergies Allergy/AdvReac Type Severity Reaction Status Date / Time daptomycin Allergy Severe SHORTNESS Verified 11/16/18 14:38 OF BREATH Iodinated Contrast- Oral and Allergy Severe Anaphylaxis Verified 11/16/18 14:38 IV Dye bee venom protein (honey bee) Allergy Intermediate HIVES Verified 11/16/18 14:38 clindamycin Allergy Intermediate HIVES Verified 11/16/18 14:38 Sulfa (Sulfonamide Allergy Intermediate BACTRIM-HIV Verified 11/16/18 14:38 Antibiotics) ES trimethoprim Allergy Intermediate HIVES Verified 11/16/18 14:38 vancomycin Allergy Intermediate RASH Verified 11/16/18 14:38 dulaglutide AdvReac Severe BRAND-TRULICITY, Verified 11/16/18 14:38 SEVERE GI UPSET, CONSTIPATION Home Medications Home Medications Medication Instructions Recorded Confirmed Type albuterol sulfate [Ventolin HFA] 2 puff INHALATION Q6H 06/11/18 11/16/18 History ferrous gluconate 324 mg PO QAM 06/11/18 11/16/18 History fluticasone-vilanterol [Breo 1 inh INHALATION DAILY 06/11/18 11/16/18 History Ellipta] furosemide 40 mg PO QAM 06/11/18 11/16/18 History insulin aspart U-100 [Novolog 1 sliding scale dose SUBCUT TID 06/11/18 11/16/18 History PenFill U-100 Insulin] levothyroxine [Levoxyl] 1,200 mcg PO QAM 06/11/18 11/16/18 History loratadine 10 mg PO DAILY 06/11/18 11/16/18 History magnesium oxide 400 mg PO DAILY 06/11/18 11/16/18 History hydrocortisone [Proctosol HC] 1 appln DC HS PRN #30 gm 07/31/18 11/16/18 Rx diphenhydramine 25 mg capsule 50 mg PO Q6 PRN cap 08/02/18 11/06/18 History calcium carbonate-mag hydroxid 0 tab PO Q6H PRN 09/25/18 11/16/18 History [Rolaids] esomeprazole magnesium [Nexium] 20 mg PO BID 09/25/18 11/16/18 History metoprolol succinate 25 mg PO DAILY 09/25/18 11/16/18 History ranitidine HCl [Zantac] 150 mg PO BID 09/25/18 11/16/18 History lactulose 30 ml PO BID PRN #30 ml 09/29/18 11/16/18 Rx miconazole nitrate [Desenex] 1 applic EXT BID #1 g 09/29/18 11/16/18 Rx insulin degludec [Tresiba 30 unit SUBCUT HS 11/16/18 11/16/18 History FlexTouch U-100] potassium chloride 20 meq PO QAM 11/16/18 11/16/18 History warfarin 2.5 mg PO 2XWK 11/16/18 11/16/18 History Past Med/Surg History Medical History Demand ischemia Hypomagnesemia DVT prophylaxis Medical non-compliance Acute exacerbation of CHF (congestive heart failure) (Acute) Hypothyroidism (Acute) [facility] (current) use of anticoagulants (Acute) Esophagitis (Acute) Colon cancer metastasized to multiple sites Dysphagia (Acute) Hypothyroidism (Chronic) GERD (gastroesophageal reflux disease) (Chronic) Diabetes mellitus type 2 in obese (Chronic) HTN (hypertension) (Chronic) Morbid obesity with BMI of 40.0-44.9, adult (Chronic) Dyslipidemia (Chronic) ANA (obstructive sleep apnea) (Chronic) Leaky heart valve (Chronic) Hepatitis (Chronic) Mitral regurgitation (Chronic) "echo 10/14/15: mild-mod mitral regurg " A-fib Atrial fibrillation C. difficile colitis DM II (diabetes mellitus, type II), controlled H/O: lung cancer Left s/p L VATS HTN (hypertension) Hypothyroid Metastatic colon cancer in female lung mets Morbid obesity ANA (obstructive sleep apnea) Surgical History H/O carpal tunnel repair H/O total hysterectomy History of colostomy reversal S/P T&A (status post tonsillectomy and adenoidectomy) S/P colectomy S/P debridement Abdomen S/P total knee arthroplasty Bilateral Family History Other CAD (coronary artery disease) DM II (diabetes mellitus, type II), controlled Social History Current Living Situation: Spouse current occupational status: unemployed and disabled Other Information That Helps Us Care for You: No Feels Safe at Home: Yes Safety Concerns: Feels Safe At This Time Smoking Status: Never smoker Do You Dip or Chew Tobacco: No Second Hand Exposure: No Tobacco Cessation Education Requested by Patient: No Hx Alcohol Use: No Hx Substance Use: No Beliefs That Will Affect Care: None Preferred Language: Italian Communication Ability: Effective Nutritional Services Host Required: No Review of Systems Gen: Denies fevers, night sweats, rigors, fatigue, malaise, weight loss/gain ENT: Denies congestion, throat pain, hearing loss Eyes: Denies acute visual changes CV: Denies CP, palpitations Pulmonary: Exertional dyspnea GI: Abdominal distention, disomfort/pain - chronic dysphagia Neuro: Denies acute or unilateral weakness, acute gait impairment, headache or acute visual changes Musculoskeletal: Denies joint pain, inflammation Endocrine: Denies polydipsia, polyuria Skin: Denies acute rashes or ulcers Physical Exam 2 Vital Signs (Past 24 Hours): Last Vital Signs Temp 36.4 C L 11/16/18 12:43 Pulse 94 H 11/16/18 15:40 Resp 17 11/16/18 15:40 BP 112/81 11/16/18 15:31 Pulse Ox 94 11/16/18 15:40 Physical Exam: General: AAO x 3, no distress - lying flat ENT: No erythema or exudates, no thrush Eyes: SAEID, EOMI - mild icterus Head and neck: Normocephalic, atraumatic, No JVD, neck is supple. Chest/heart: Nontender, S1,2, RRR, no murmurs, no gallops Lungs: CTAB, no wheezing or crackles - reduced air entry at bases Abdomen: Distended - mild diffuse tenderness - abdomen is soft Neuro: AAO x 3, speech is clear, no unilateral weakness or loss of sensation, coordination intact Musculoskeletal: No joint inflammation, muscle tenderness, FROM Skin: No acute rashes or ulcers Extremities: No clubbing, cyanosis, edema Results & Data Diagnostic Findings CT abdomen: 1. Interval progression of diffuse body wall edema and small BL pleural effusions. 2. No bowel wall thickening or obstruction. 3. Suspect cholelithiasis. No gallbladder wall thickening. 4. Stable 6 mm nodule within the right lower lobe. 5. Rectosigmoid anastomosis. Small linear focus of gas extending to the presacral soft tissues which could represent a tiny fistula or the normal side to end anastomosis of the bowel. This remains unchanged. CXR: Pulmonary vascular congestion with suspected mild pulmonary edema.
--- NOTE | 2018-11-16 18:32 | Emergency Department Note ---
Entered by Angel Luis Grayson acting as a scribe for Gabriel Donato MD History of Present Illness General Chief complaint: Abnormal Labs/Diagnostic Testing Stated complaint: ENZYMES IN BELLY TOO HIGH Time Seen by Provider: 11/16/18 14:00 Source: patient Limitations: no limitations History of Present Illness Location: abdomen Severity: severe Pain Consistency: + constant Maximum Pain Intensity: 10 Quality: + constant Associated symptoms: + denies other symptoms (congestion), + cough, + nausea/ vomiting, + weakness and + other (dizziness, feeling cold, spitting up, bloated , mouth dry); no fever/chills (fever) The patient is a 53 year old female who presents to the Emergency Room because she was referred by her PCP for elevated liver enzymes. The patient states she has been feeling weak and dizzy. Nursing states the patient's PCP wants to get the patient's ammonia levels done. The patient states she got her blood work done yesterday morning and her PCP called her yesterday to go to the ED. She notes she has constant and severe abdominal pain. She states she has generalized weakness and pain all over her body. The patient complains of feeling bloated and always being cold. She states she vomited last night while in the bathtub. She states her mouth is always dry. She notes she coughs and spits up after eating sometimes. The patient states she has a history of colon cancer that is now resolved. She states she last had chemotherapy done 2 weeks ago. She states her oncologist is Dr. Quintana and she will see him sometime this week. She denies fevers and congestion. She notes she takes Coumadin. Home Medications Home Medications Medication Instructions Recorded Confirmed Type albuterol sulfate [Ventolin HFA] 2 puff INHALATION Q6H 06/11/18 11/16/18 History ferrous gluconate 324 mg PO QAM 06/11/18 11/16/18 History fluticasone-vilanterol [Breo 1 inh INHALATION DAILY 06/11/18 11/16/18 History Ellipta] furosemide 40 mg PO QAM 06/11/18 11/16/18 History insulin aspart U-100 [Novolog 1 sliding scale dose SUBCUT TID 06/11/18 11/16/18 History PenFill U-100 Insulin] levothyroxine [Levoxyl] 1,200 mcg PO QAM 06/11/18 11/16/18 History loratadine 10 mg PO DAILY 06/11/18 11/16/18 History magnesium oxide 400 mg PO DAILY 06/11/18 11/16/18 History hydrocortisone [Proctosol HC] 1 appln FL HS PRN #30 gm 07/31/18 11/16/18 Rx diphenhydramine 25 mg capsule 50 mg PO Q6 PRN cap 08/02/18 11/06/18 History calcium carbonate-mag hydroxid 0 tab PO Q6H PRN 09/25/18 11/16/18 History [Rolaids] esomeprazole magnesium [Nexium] 20 mg PO BID 09/25/18 11/16/18 History metoprolol succinate 25 mg PO DAILY 09/25/18 11/16/18 History ranitidine HCl [Zantac] 150 mg PO BID 09/25/18 11/16/18 History lactulose 30 ml PO BID PRN #30 ml 09/29/18 11/16/18 Rx miconazole nitrate [Desenex] 1 applic EXT BID #1 g 09/29/18 11/16/18 Rx insulin degludec [Tresiba 30 unit SUBCUT HS 11/16/18 11/16/18 History FlexTouch U-100] potassium chloride 20 meq PO QAM 11/16/18 11/16/18 History warfarin 2.5 mg PO 2XWK 11/16/18 11/16/18 History Allergies Allergy/AdvReac Type Severity Reaction Status Date / Time daptomycin Allergy Severe SHORTNESS Verified 11/16/18 14:38 OF BREATH Iodinated Contrast- Oral and Allergy Severe Anaphylaxis Verified 11/16/18 14:38 IV Dye bee venom protein (honey bee) Allergy Intermediate HIVES Verified 11/16/18 14:38 clindamycin Allergy Intermediate HIVES Verified 11/16/18 14:38 Sulfa (Sulfonamide Allergy Intermediate BACTRIM-HIV Verified 11/16/18 14:38 Antibiotics) ES trimethoprim Allergy Intermediate HIVES Verified 11/16/18 14:38 vancomycin Allergy Intermediate RASH Verified 11/16/18 14:38 dulaglutide AdvReac Severe BRAND-TRULICITY, Verified 11/16/18 14:38 SEVERE GI UPSET, CONSTIPATION Past Med/Surg History Medical History Demand ischemia Hypomagnesemia DVT prophylaxis Medical non-compliance Acute exacerbation of CHF (congestive heart failure) (Acute) 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 difficile colitis DM II (diabetes mellitus, type II), controlled H/O: lung cancer Left s/p L VATS HTN (hypertension) Hypothyroid Metastatic colon cancer in female lung mets Morbid obesity ANA (obstructive sleep apnea) Surgical History H/O carpal tunnel repair H/O total hysterectomy History of colostomy reversal S/P T&A (status post tonsillectomy and adenoidectomy) S/P colectomy S/P debridement Abdomen S/P total knee arthroplasty Bilateral Family History Other CAD (coronary artery disease) DM II (diabetes mellitus, type II), controlled Social History Current Living Situation: Spouse current occupational status: unemployed and disabled Other Information That Helps Us Care for You: No Feels Safe at Home: Yes Safety Concerns: Feels Safe At This Time Smoking Status: Never smoker Do You Dip or Chew Tobacco: No Second Hand Exposure: No Tobacco Cessation Education Requested by Patient: No Hx Alcohol Use: No Hx Substance Use: No Beliefs That Will Affect Care: None Preferred Language: [place] Communication Ability: Effective Ripshear Operator Required: No Review of Systems See HPI for pertinent positives & negatives. and A total of 10 systems reviewed and were otherwise negative Physical Exam Vital Signs Vital Signs - 24 hr 11/16/18 12:43 11/16/18 13:23 11/16/18 13:28 Temperature 36.4 C L Temperature Source Oral Sepsis Recent Fever Within 48 Hours No Sepsis New/Unexplained Change in Mental Status No Sepsis Action Taken by Nursing No Action Required Pulse Rate 98 H 88 95 H Pulse Rate [Finger] Pulse Rhythm [Finger] Respiratory Rate 18 21 20 Respiratory Effort / Characteristics Non-Labored Respiratory Depth Normal Respiratory Pattern Regular Blood Pressure 124/85 101/72 Blood Pressure [Right Arm] Blood Pressure Mean 98 81 Blood Pressure Mean [Right Arm] Blood Pressure Position Sitting Blood Pressure Position [Right Arm] Pulse Oximetry 98 93 92 Oxygen Delivery Method Room Air 11/16/18 13:30 11/16/18 13:31 11/16/18 13:43 Temperature Temperature Source Sepsis Recent Fever Within 48 Hours Sepsis New/Unexplained Change in Mental Status Sepsis Action Taken by Nursing Pulse Rate 94 H 92 H 94 H Pulse Rate [Finger] Pulse Rhythm [Finger] Respiratory Rate 19 19 24 Respiratory Effort / Characteristics Respiratory Depth Respiratory Pattern Blood Pressure 109/70 Blood Pressure [Right Arm] Blood Pressure Mean 83 Blood Pressure Mean [Right Arm] Blood Pressure Position Blood Pressure Position [Right Arm] Pulse Oximetry 96 95 96 Oxygen Delivery Method 11/16/18 13:50 11/16/18 14:00 11/16/18 14:01 Temperature Temperature Source Sepsis Recent Fever Within 48 Hours Sepsis New/Unexplained Change in Mental Status Sepsis Action Taken by Nursing Pulse Rate 94 H 93 H 93 H Pulse Rate [Finger] Pulse Rhythm [Finger] Respiratory Rate 19 17 16 Respiratory Effort / Characteristics Respiratory Depth Respiratory Pattern Blood Pressure 115/92 Blood Pressure [Right Arm] Blood Pressure Mean 99 Blood Pressure Mean [Right Arm] Blood Pressure Position Blood Pressure Position [Right Arm] Pulse Oximetry 96 95 96 Oxygen Delivery Method 11/16/18 14:11 11/16/18 14:20 11/16/18 14:30 Temperature Temperature Source Sepsis Recent Fever Within 48 Hours Sepsis New/Unexplained Change in Mental Status Sepsis Action Taken by Nursing Pulse Rate 88 97 H 86 Pulse Rate [Finger] Pulse Rhythm [Finger] Respiratory Rate 29 H 21 23 Respiratory Effort / Characteristics Respiratory Depth Respiratory Pattern Blood Pressure Blood Pressure [Right Arm] Blood Pressure Mean Blood Pressure Mean [Right Arm] Blood Pressure Position Blood Pressure Position [Right Arm] Pulse Oximetry 98 91 96 Oxygen Delivery Method 11/16/18 14:41 11/16/18 15:13 11/16/18 15:15 Temperature Temperature Source Sepsis Recent Fever Within 48 Hours Sepsis New/Unexplained Change in Mental Status Sepsis Action Taken by Nursing Pulse Rate 96 H 101 H 89 Pulse Rate [Finger] Pulse Rhythm [Finger] Respiratory Rate 22 20 13 Respiratory Effort / Characteristics Respiratory Depth Respiratory Pattern Blood Pressure 111/97 Blood Pressure [Right Arm] Blood Pressure Mean 101 Blood Pressure Mean [Right Arm] Blood Pressure Position Blood Pressure Position [Right Arm] Pulse Oximetry 96 98 Oxygen Delivery Method 11/16/18 15:21 11/16/18 15:30 11/16/18 15:31 Temperature Temperature Source Sepsis Recent Fever Within 48 Hours Sepsis New/Unexplained Change in Mental Status Sepsis Action Taken by Nursing Pulse Rate 95 H 98 H 96 H Pulse Rate [Finger] Pulse Rhythm [Finger] Respiratory Rate 20 17 21 Respiratory Effort / Characteristics Respiratory Depth Respiratory Pattern Blood Pressure 112/81 Blood Pressure [Right Arm] Blood Pressure Mean 91 Blood Pressure Mean [Right Arm] Blood Pressure Position Blood Pressure Position [Right Arm] Pulse Oximetry 97 94 96 Oxygen Delivery Method 11/16/18 15:40 11/16/18 15:51 11/16/18 16:00 Temperature Temperature Source Sepsis Recent Fever Within 48 Hours Sepsis New/Unexplained Change in Mental Status Sepsis Action Taken by Nursing Pulse Rate 94 H 90 88 Pulse Rate [Finger] Pulse Rhythm [Finger] Respiratory Rate 17 20 22 Respiratory Effort / Characteristics Respiratory Depth Respiratory Pattern Blood Pressure Blood Pressure [Right Arm] Blood Pressure Mean Blood Pressure Mean [Right Arm] Blood Pressure Position Blood Pressure Position [Right Arm] Pulse Oximetry 94 98 96 Oxygen Delivery Method 11/16/18 16:01 11/16/18 16:10 11/16/18 16:21 Temperature Temperature Source Sepsis Recent Fever Within 48 Hours Sepsis New/Unexplained Change in Mental Status Sepsis Action Taken by Nursing Pulse Rate 91 H 93 H 87 Pulse Rate [Finger] Pulse Rhythm [Finger] Respiratory Rate 13 16 16 Respiratory Effort / Characteristics Respiratory Depth Respiratory Pattern Blood Pressure 99/88 L Blood Pressure [Right Arm] Blood Pressure Mean 91 Blood Pressure Mean [Right Arm] Blood Pressure Position Blood Pressure Position [Right Arm] Pulse Oximetry 89 L 95 97 Oxygen Delivery Method 11/16/18 16:30 11/16/18 16:31 11/16/18 16:40 Temperature Temperature Source Sepsis Recent Fever Within 48 Hours Sepsis New/Unexplained Change in Mental Status Sepsis Action Taken by Nursing Pulse Rate 86 90 89 Pulse Rate [Finger] Pulse Rhythm [Finger] Respiratory Rate 21 18 27 H Respiratory Effort / Characteristics Non-Labored Spontaneous Respiratory Depth Normal Respiratory Pattern Regular Blood Pressure Blood Pressure [Right Arm] Blood Pressure Mean 82 Blood Pressure Mean [Right Arm] Blood Pressure Position Blood Pressure Position [Right Arm] Pulse Oximetry 99 99 Oxygen Delivery Method Room Air 11/16/18 16:42 11/16/18 16:51 11/16/18 17:00 Temperature Temperature Source Sepsis Recent Fever Within 48 Hours Sepsis New/Unexplained Change in Mental Status Sepsis Action Taken by Nursing Pulse Rate 91 H 90 84 Pulse Rate [Finger] Pulse Rhythm [Finger] Respiratory Rate 22 17 20 Respiratory Effort / Characteristics Respiratory Depth Respiratory Pattern Blood Pressure 110/84 Blood Pressure [Right Arm] Blood Pressure Mean 92 Blood Pressure Mean [Right Arm] Blood Pressure Position Blood Pressure Position [Right Arm] Pulse Oximetry 94 Oxygen Delivery Method 11/16/18 17:01 11/16/18 17:10 11/16/18 17:21 Temperature Temperature Source Sepsis Recent Fever Within 48 Hours Sepsis New/Unexplained Change in Mental Status Sepsis Action Taken by Nursing Pulse Rate 82 87 89 Pulse Rate [Finger] Pulse Rhythm [Finger] Respiratory Rate 20 18 22 Respiratory Effort / Characteristics Respiratory Depth Respiratory Pattern Blood Pressure 107/80 Blood Pressure [Right Arm] Blood Pressure Mean 89 Blood Pressure Mean [Right Arm] Blood Pressure Position Blood Pressure Position [Right Arm] Pulse Oximetry 96 96 97 Oxygen Delivery Method 11/16/18 17:30 11/16/18 17:31 11/16/18 17:40 Temperature Temperature Source Sepsis Recent Fever Within 48 Hours Sepsis New/Unexplained Change in Mental Status Sepsis Action Taken by Nursing Pulse Rate 85 84 90 Pulse Rate [Finger] Pulse Rhythm [Finger] Respiratory Rate 13 22 24 Respiratory Effort / Characteristics Respiratory Depth Respiratory Pattern Blood Pressure 109/64 Blood Pressure [Right Arm] Blood Pressure Mean 79 Blood Pressure Mean [Right Arm] Blood Pressure Position Blood Pressure Position [Right Arm] Pulse Oximetry 98 92 Oxygen Delivery Method 11/16/18 17:50 11/16/18 18:01 11/16/18 18:10 Temperature Temperature Source Sepsis Recent Fever Within 48 Hours Sepsis New/Unexplained Change in Mental Status Sepsis Action Taken by Nursing Pulse Rate 84 82 84 Pulse Rate [Finger] Pulse Rhythm [Finger] Respiratory Rate 21 21 20 Respiratory Effort / Characteristics Respiratory Depth Respiratory Pattern Blood Pressure 106/69 Blood Pressure [Right Arm] Blood Pressure Mean 81 Blood Pressure Mean [Right Arm] Blood Pressure Position Blood Pressure Position [Right Arm] Pulse Oximetry 99 99 97 Oxygen Delivery Method 11/16/18 18:20 11/16/18 18:31 11/16/18 18:40 Temperature Temperature Source Sepsis Recent Fever Within 48 Hours Sepsis New/Unexplained Change in Mental Status Sepsis Action Taken by Nursing Pulse Rate 87 81 88 Pulse Rate [Finger] Pulse Rhythm [Finger] Respiratory Rate 18 16 17 Respiratory Effort / Characteristics Respiratory Depth Respiratory Pattern Blood Pressure 113/78 Blood Pressure [Right Arm] Blood Pressure Mean 89 Blood Pressure Mean [Right Arm] Blood Pressure Position Blood Pressure Position [Right Arm] Pulse Oximetry 96 97 97 Oxygen Delivery Method 11/16/18 18:50 11/16/18 19:01 11/16/18 19:10 Temperature Temperature Source Sepsis Recent Fever Within 48 Hours Sepsis New/Unexplained Change in Mental Status Sepsis Action Taken by Nursing Pulse Rate 81 92 H 90 Pulse Rate [Finger] Pulse Rhythm [Finger] Respiratory Rate 16 25 H 15 Respiratory Effort / Characteristics Respiratory Depth Respiratory Pattern Blood Pressure 109/77 Blood Pressure [Right Arm] Blood Pressure Mean 87 Blood Pressure Mean [Right Arm] Blood Pressure Position Blood Pressure Position [Right Arm] Pulse Oximetry 95 97 98 Oxygen Delivery Method 11/16/18 19:25 11/16/18 19:50 Temperature 36.5 C Temperature Source Oral Sepsis Recent Fever Within 48 Hours Sepsis New/Unexplained Change in Mental Status Sepsis Action Taken by Nursing Pulse Rate Pulse Rate [Finger] 85 Pulse Rhythm [Finger] Irregular Respiratory Rate 18 Respiratory Effort / Characteristics Non-Labored Spontaneous Non-Labored Spontaneous Grunting Respiratory Depth Normal Normal Respiratory Pattern Agonal Blood Pressure Blood Pressure [Right Arm] 114/84 Blood Pressure Mean Blood Pressure Mean [Right Arm] 94 Blood Pressure Position Blood Pressure Position [Right Arm] Sitting Pulse Oximetry 94 Oxygen Delivery Method Room Air Room Air GENERAL: Awake, alert, chronically ill and fatigue-appearing, in no distress HENT: Normocephalic, atraumatic. Oropharynx with dry mucous membranes and otherwise unremarkable. EYES: Normal conjunctiva. Sclera with mild icterus. NECK: Supple. No nuchal rigidity. FROM. No JVD. RESPIRATORY: Diminished at bases and otherwise clear to auscultation. CARDIAC: Regular rate, irregular rhythm. Extremities warm and well perfused. Pulses equal. ABDOMEN: Mild abdominal distention but soft with generalized anasarca. Generalized mild abdominal ttp. No rebound or guarding. No masses. RECTAL: Deferred. MUSCULOSKELETAL: Chest examination reveals no tenderness. The back is symmetrical on inspection without obvious abnormality. There is no CVA tenderness to palpation. No joint edema. LOWER EXTREMITIES: Calves are equal size bilaterally and non-tender. No discoloration. 2+ bilateral pitting edema. NEURO: Normal sensorium. No sensory or motor deficits noted. No asterixis. SKIN: Warm and dry. Mild jaundice. No rash. Course 1409: Past medical records reviewed. The patient was evaluated in room C6, and a complete history and physical examination were performed. 1605: I reviewed the patient's case with Dr. Mir - Mary Imogene Bassett Hospitalist. He will evaluate the patient for further management. Administered Medications Albuterol (Ventolin Hfa) 2 puffs INH Q6R ELIZABETH Stop: 12/16/18 19:59 Last Admin: 11/16/18 21:03 Dose: 2 puffs Potassium Phosphate 15 mmol/ (Sodium Chloride) 255 mls @ 88 mls/hr IV ONE ONE Stop: 11/16/18 23:08 Last Admin: 11/16/18 21:01 Dose: 88 mls/hr Insulin Aspart (Novolog Flexpen) 0 units SC ACHS ELIZABETH Stop: 12/16/18 20:59 Last Admin: 11/16/18 21:04 Dose: 5 units Pantoprazole Sodium (Protonix) 40 mg PO BID ELIZABETH Stop: 12/16/18 20:59 Last Admin: 11/16/18 21:04 Dose: 40 mg Ranitidine HCl (Zantac) 150 mg PO BID ELIZABETH Stop: 12/16/18 20:59 Last Admin: 11/16/18 21:03 Dose: 150 mg Discontinued Medications Sodium Chloride (Nss 1000ml) 250 mls @ 999 mls/hr IV .Q16M ONE Stop: 11/16/18 14:40 Last Infusion: 11/16/18 14:48 Dose: 0 mls/hr Admin: 11/16/18 14:27 Dose: 999 mls/hr Magnesium Sulfate/Dextrose (Magnesium Sulfate / D5w) 1 gm in 100 mls @ 100 mls/ hr IV Q1H ELIZABETH Stop: 11/16/18 17:59 Last Infusion: 11/16/18 19:39 Dose: 0 mls/hr Admin: 11/16/18 18:44 Dose: 100 mls/hr Infusion: 11/16/18 18:43 Dose: Admin: 11/16/18 16:06 Dose: 100 mls/hr Potassium Phosphate 9 mmol/ (Sodium Chloride) 253 mls @ 88 mls/hr IV ONE ONE Stop: 11/16/18 19:07 Last Infusion: 11/16/18 19:53 Dose: 0 mls/hr Admin: 11/16/18 16:52 Dose: 88 mls/hr Albumin Human (Albumin 25%) 50 mls @ 50 mls/hr IV NOW STA Stop: 11/16/18 22:15 Last Admin: 11/16/18 21:42 Dose: 50 mls/hr Furosemide 40 mg/ Syringe 4 mls @ 4 mls/min IV ONE ONE Stop: 11/16/18 20:01 Last Admin: 11/16/18 22:07 Dose: 4 mls/min Warfarin Sodium (Coumadin) 5 mg PO NOW ONE Stop: 11/16/18 20:16 Last Admin: 11/16/18 21:04 Dose: 5 mg Medical Decision Making Differential Diagnosis Differential diagnosis: Etiologies such as appendicitis, diverticulitis, PUD, biliary pathology, UTI, pancreatitis, obstruction, mesenteric ischemia, aortic pathology, infections, inflammatory bowel disease, renal colic, as well as others were entertained. Medical Records Attestation: I reviewed the patient's medical records. Home Medications Current Medication List: was personally reviewed by me Laboratory Data Attestation: I reviewed the patient's lab results. Result diagrams: 11/16/18 13:20 11/16/18 13:20 Lab Results 11/16/18 11/16/18 11/16/18 Range/Units 13:20 13:20 13:20 WBC 6.84 (4.8-10.8) K/uL RBC 4.58 (4.2-5.4) M/uL Hgb 12.1 (12.0-16.0) g/dL Hct 37.9 (37-47) % MCV 82.8 (80-100) fL MCH 26.4 (25-34) pg MCHC 31.9 L (32-36) g/dL RDW Std Deviation 62.0 H (36.4-46.3) fL RDW Coeff of [place] 20.3 H (11.5-14.5) % Plt Count 212 (130-400) K/uL MPV 9.5 (7.4-10.4) fL Immature Gran % (Auto) 0.3 % Neut % (Auto) 53.6 % Lymph % (Auto) 32.9 % [place] % (Auto) 9.4 % Eos % (Auto) 3.5 % Baso % (Auto) 0.3 % Immature Gran # (Auto) 0.02 (0.00-0.02) K/uL Neut # (Auto) 3.67 (1.4-6.5) K/uL Lymph # (Auto) 2.25 (1.2-3.4) K/uL [place] # (Auto) 0.64 H (0.11-0.59) K/uL Eos # (Auto) 0.24 (0-0.5) K/uL Baso # (Auto) 0.02 (0-0.2) K/uL Anisocytosis Present Echinocytes 1+ PT (9.0-12.0) Seconds INR (0.9-1.1) VBG pH (7.36-7.41) VBG pCO2 (38-50) mmHg VBG pO2 mmHg VBG HCO3 mmol/L VBG O2 Saturation % VBG Base Excess mEq/L Barometric Pressure mm/Hg Sodium 136 (136-145) mmol/L Potassium 3.5 (3.5-5.1) mmol/L Chloride 99 (98-107) mmol/L Carbon Dioxide 30 (21-32) mmol/L Anion Gap 7.0 (3-11) BUN 11 (7-18) mg/dl Creatinine 0.94 (0.6-1.2) mg/dl Est Cr Clr Drug Dosing 64.2 ml/min Est GFR ( Amer) 79.2 Est GFR (Non-Af Amer) 68.3 BUN/Creatinine Ratio 11.6 (10-20) Glucose 379 H* (70-99) mg/dl POC Glucose (70-99) Calcium 8.0 L (8.5-10.1) mg/dl Phosphorus (2.5-4.9) mg/dl Magnesium (1.8-2.4) mg/dl Total Bilirubin 3.8 H (0.2-1) mg/dl Direct Bilirubin (0-0.2) mg/dl AST 23 (15-37) U/L ALT 17 (12-78) U/L Alkaline Phosphatase 158 H (45-117) U/L Ammonia 49.0 H (11-32) umol/L Troponin I (0-0.045) ng/ml NT-Pro-B Natriuret Pep (0-900) pg/ml Total Protein 6.4 (6.4-8.2) gm/dl Albumin 2.4 L (3.4-5.0) gm/dl Globulin 4.0 (2.5-4.0) gm/dl Albumin/Globulin Ratio 0.6 L (0.9-2) Lipase 225 (73-393) U/L Beta-Hydroxybutyric Acd 0.96 (0.2-2.81) mg/dl TSH (0.300-4.500) uIu/ml Urine Color Urine Appearance (Clear) Urine pH (4.5-7.5) Ur Specific [place] (1.000-1.030) Urine Protein (Negative) Urine Glucose (UA) (Negative) Urine Ketones (Negative) Urine Blood (Negative) Urine Nitrite (Negative) Urine Bilirubin (Negative) Urine Urobilinogen (Negative) Ur Leukocyte Esterase (Negative) 11/16/18 11/16/18 11/16/18 Range/Units 13:20 13:20 13:45 WBC (4.8-10.8) K/uL RBC (4.2-5.4) M/uL Hgb (12.0-16.0) g/dL Hct (37-47) % MCV (80-100) fL MCH (25-34) pg MCHC (32-36) g/dL RDW Std Deviation (36.4-46.3) fL RDW Coeff of [place] (11.5-14.5) % Plt Count (130-400) K/uL MPV (7.4-10.4) fL Immature Gran % (Auto) % Neut % (Auto) % Lymph % (Auto) % [place] % (Auto) % Eos % (Auto) % Baso % (Auto) % Immature Gran # (Auto) (0.00-0.02) K/uL Neut # (Auto) (1.4-6.5) K/uL Lymph # (Auto) (1.2-3.4) K/uL [place] # (Auto) (0.11-0.59) K/uL Eos # (Auto) (0-0.5) K/uL Baso # (Auto) (0-0.2) K/uL Anisocytosis Echinocytes PT 16.7 H (9.0-12.0) Seconds INR 1.7 H (0.9-1.1) VBG pH (7.36-7.41) VBG pCO2 (38-50) mmHg VBG pO2 mmHg VBG HCO3 mmol/L VBG O2 Saturation % VBG Base Excess mEq/L Barometric Pressure mm/Hg Sodium (136-145) mmol/L Potassium (3.5-5.1) mmol/L Chloride (98-107) mmol/L Carbon Dioxide (21-32) mmol/L Anion Gap (3-11) BUN (7-18) mg/dl Creatinine (0.6-1.2) mg/dl Est Cr Clr Drug Dosing ml/min Est GFR ( Amer) Est GFR (Non-Af Amer) BUN/Creatinine Ratio (10-20) Glucose (70-99) mg/dl POC Glucose (70-99) Calcium (8.5-10.1) mg/dl Phosphorus 1.6 L (2.5-4.9) mg/dl Magnesium 1.4 L (1.8-2.4) mg/dl Total Bilirubin (0.2-1) mg/dl Direct Bilirubin 2.3 H (0-0.2) mg/dl AST (15-37) U/L ALT (12-78) U/L Alkaline Phosphatase (45-117) U/L Ammonia (11-32) umol/L Troponin I 0.047 H* (0-0.045) ng/ml NT-Pro-B Natriuret Pep 1516 H (0-900) pg/ml Total Protein (6.4-8.2) gm/dl Albumin (3.4-5.0) gm/dl Globulin (2.5-4.0) gm/dl Albumin/Globulin Ratio (0.9-2) Lipase (73-393) U/L Beta-Hydroxybutyric Acd (0.2-2.81) mg/dl TSH 2.110 (0.300-4.500) uIu/ml Urine Color Yellow Urine Appearance Clear (Clear) Urine pH 7.0 (4.5-7.5) Ur Specific [place] 1.011 (1.000-1.030) Urine Protein Negative (Negative) Urine Glucose (UA) 3+ H (Negative) Urine Ketones Negative (Negative) Urine Blood Negative (Negative) Urine Nitrite Negative (Negative) Urine Bilirubin Negative (Negative) Urine Urobilinogen Negative (Negative) Ur Leukocyte Esterase Negative (Negative) 11/16/18 11/16/18 Range/Units 14:34 19:56 WBC (4.8-10.8) K/uL RBC (4.2-5.4) M/uL Hgb (12.0-16.0) g/dL Hct (37-47) % MCV (80-100) fL MCH (25-34) pg MCHC (32-36) g/dL RDW Std Deviation (36.4-46.3) fL RDW Coeff of [place] (11.5-14.5) % Plt Count (130-400) K/uL MPV (7.4-10.4) fL Immature Gran % (Auto) % Neut % (Auto) % Lymph % (Auto) % [place] % (Auto) % Eos % (Auto) % Baso % (Auto) % Immature Gran # (Auto) (0.00-0.02) K/uL Neut # (Auto) (1.4-6.5) K/uL Lymph # (Auto) (1.2-3.4) K/uL [place] # (Auto) (0.11-0.59) K/uL Eos # (Auto) (0-0.5) K/uL Baso # (Auto) (0-0.2) K/uL Anisocytosis Echinocytes PT (9.0-12.0) Seconds INR (0.9-1.1) VBG pH 7.44 H (7.36-7.41) VBG pCO2 45 (38-50) mmHg VBG pO2 31 mmHg VBG HCO3 30 mmol/L VBG O2 Saturation < 60.0 % VBG Base Excess 5.2 mEq/L Barometric Pressure 729.4 mm/Hg Sodium (136-145) mmol/L Potassium (3.5-5.1) mmol/L Chloride (98-107) mmol/L Carbon Dioxide (21-32) mmol/L Anion Gap (3-11) BUN (7-18) mg/dl Creatinine (0.6-1.2) mg/dl Est Cr Clr Drug Dosing ml/min Est GFR ( Amer) Est GFR (Non-Af Amer) BUN/Creatinine Ratio (10-20) Glucose (70-99) mg/dl POC Glucose 294 H (70-99) Calcium (8.5-10.1) mg/dl Phosphorus (2.5-4.9) mg/dl Magnesium (1.8-2.4) mg/dl Total Bilirubin (0.2-1) mg/dl Direct Bilirubin (0-0.2) mg/dl AST (15-37) U/L ALT (12-78) U/L Alkaline Phosphatase (45-117) U/L Ammonia (11-32) umol/L Troponin I (0-0.045) ng/ml NT-Pro-B Natriuret Pep (0-900) pg/ml Total Protein (6.4-8.2) gm/dl Albumin (3.4-5.0) gm/dl Globulin (2.5-4.0) gm/dl Albumin/Globulin Ratio (0.9-2) Lipase (73-393) U/L Beta-Hydroxybutyric Acd (0.2-2.81) mg/dl TSH (0.300-4.500) uIu/ml Urine Color Urine Appearance (Clear) Urine pH (4.5-7.5) Ur Specific [place] (1.000-1.030) Urine Protein (Negative) Urine Glucose (UA) (Negative) Urine Ketones (Negative) Urine Blood (Negative) Urine Nitrite (Negative) Urine Bilirubin (Negative) Urine Urobilinogen (Negative) Ur Leukocyte Esterase (Negative) Imaging Data Radiologist's Impression: Radiology results as stated below per my review and the radiologist's interpretation: XR chest 1V portable CLINICAL HISTORY: Abdominal pain. COMPARISON STUDY: Chest CT September 25, 2018 and chest radiograph November 06, 2018. FINDINGS: Left subclavian [id number] is in place. Cardiomegaly is unchanged. There is no pneumothorax or pleural effusion. There is pulmonary vascular congestion with suspected mild pulmonary edema. There is no lobar consolidation. IMPRESSION: Pulmonary vascular congestion with suspected mild pulmonary edema. Electronically signed by: Humberto Montanez M.D. 11/16/2018 2:52 PM ABDOMEN AND PELVIS CT WITHOUT CONTRAST CT DOSE: 893.86 mGy.cm HISTORY: elevated LFTs abdominal pain TECHNIQUE: Multiaxial CT images of the abdomen and pelvis were performed without contrast. A dose lowering technique was utilized adhering to the principles of ALARA. COMPARISON STUDY: Abdomen pelvis CT 09/25/2018. FINDINGS: Increase in size in the small bilateral pleural effusions. 6 mm right lower lobe nodule is again noted. Severe body wall edema has progressed. Right lower quadrant fat-containing abdominal wall hernia remains unchanged. Normal bladder. No hepatic or splenic masses on this unenhanced study. The adrenal glands, pancreas, and kidneys are unremarkable. No hydronephrosis. Suspect a punctate gallstone. No gallbladder wall thickening. No retroperitoneal lymphadenopathy. Gastrohepatic varices is noted. Anastomotic suture material at the rectosigmoid junction. Question of a tiny fistula extending to the presacral soft tissues where there is focal soft tissue thickening. This could also represent a normal side to end anastomosis of the bowel. This remains unchanged. Colonic diverticulosis. No bowel wall thickening or obstruction. Uterus surgically absent. Ovaries are stable. Normal appendix. Suture material within the left lower lobe is again noted. IMPRESSION: 1. Interval progression of the small bilateral pleural effusions and diffuse body wall edema. 2. No bowel wall thickening or obstruction. 3. Suspect cholelithiasis. No gallbladder wall thickening. 4. Stable 6 mm nodule within the right lower lobe. 5. Rectosigmoid anastomosis. Small linear focus of gas extending to the presacral soft tissues which could represent a tiny fistula or the normal side to end anastomosis of the bowel. This remains unchanged. Electronically signed by: Anthony Davis M.D. 11/16/2018 3:31 PM ECG Data Attestation: I personally reviewed and interpreted this ECG as follows: Indication: toxicologic Rate (beats per minute): 92 Rhythm: atrial fibrillation Findings: no acute ischemic change Comparison ECG Date: from (11/06/18) Change: no significant change Blood Pressure Blood Pressure Findings: Normal blood pressure Blood Pressure Disposition: further management by hospitalist TAMIE Kasper The patient is a pleasant 53-year-old woman with a comp located past medical history of metastatic colon cancer with recent diagnosis of recurrence on Avastin, followed by Dr. Quintana presents emergency department with worsening abdominal pain, distention in the setting of worsening outpatient lab tests demonstrating rising bilirubin. The patient was seen in the emergency department 1 week ago for increased distention, treated with Lasix and discharge with outpatient follow-up. On arrival patient is chronically ill- appearing, uncomfortable but no acute distress, afebrile stable vital signs. On exam the patient exhibits mild scleral icterus and mild jaundice. She has mild distention of her abdomen with generalized abdominal tenderness without peritoneal signs. She has diffuse abdominal wall anasarca without warmth or crepitus. Bilateral lower extremities with 3+ pitting edema. EKG demonstrates A. fib without evidence of acute ischemia and similar to prior. WBC, H/H, platelets within normal limits. INR 1.7, subtherapeutic. Chemistry without acidosis. However glucose 370. Phosphorus 1.6 and magnesium 1.4. Total bilirubin is 3.8 with direct bilirubin of 2.3 which is increased from patient's admission in August where she had a total bilirubin of 2.4 and direct bilirubin of 1.0. Troponin is 0.047 in the setting of patient's chronic similar troponin elevations. BNP 1500 decreased from prior values. UA without evidence of infection. CT abdomen pelvis demonstrates progression of the patient's bilateral pleural effusions and diffuse body wall edema. Her right lower lobe pulmonary nodule is stable at 6 mm. Additionally there focus of gas extending in the presacral soft tissue areas that is likely normal findings related to her bowel anastomosis and is unchanged in prior study. Given the patient's worsening abdominal pain and distention in the setting of her worsening bilirubin despite outpatient diuresis and outpatient management reasonable to admit the patient for further management which may include combination of gentle hydration given her rising bilirubin as well as diuresis given her overt third spacing. Additionally will require further magnesium and phosphorus repletion which was initiated in the emergency department. May also benefit from palliative care consultation given her metastatic disease and overall poor prognosis. Case was discussed [place]. [place], [facility], who will evaluate the patient for admission.. Impression & Plan Hypomagnesemia, Elevated bilirubin, Hypophosphatemia, Abdominal pain Discharge Plan Visit Data *Final* Discharge Date/Time: 11/16/18 19:13 Chief Complaint: Abnormal Labs/Diagnostic Testing Stated Complaint: ENZYMES IN BELLY TOO HIGH ED Provider: Gabriel Donato Discharge Problem: Hypomagnesemia, Elevated bilirubin, Hypophosphatemia, Abdominal pain Patient Disposition: Admitted As Inpatient Discharge Instructions Interventions: ED Discharge Assessment Last Done: 11/16/18 19:13 The scribe's documentation has been prepared under my direction and personally reviewed by me in its entirety. I confirm that the note above accurately reflects all work, treatment, procedures, and medical decision making performed by me.
[2018-11-16] MEDS ORDERED: ONDANSETRON INJ 2 MG/ML 2 ML VIAL IV PRN (19:50)
[2018-11-16] MEDS ORDERED: CALCIUM CARBONATE MAG HYDROXID PO PRN (19:50)
[2018-11-16] MEDS ORDERED: TRAMADOL HCL 50 MG TABLET PO PRN (19:50)
[2018-11-16] MEDS ORDERED: FUROSEMIDE 40 MG/4 ML VIAL IV STA (19:50)
[2018-11-16] MEDS ORDERED: LACTULOSE SYRUP 20 GM/30 ML UDC PO PRN (19:50)
[2018-11-16] MEDS ORDERED: ALUMINUM/MAGNESIUM SUSP 30 ML UDC PO PRN (19:50)
[2018-11-16] MEDS ORDERED: MAGNESIUM HYDROXIDE SUSP 30 ML UDC PO PRN (19:50)
[2018-11-16] MEDS ORDERED: ZOLPIDEM TARTRATE 5 MG TAB PO PRN (19:50)
[2018-11-16] MEDS ORDERED: HYDROmorphone INJ 0.5 MG/0.5 ML SYR IV PRN (19:50)
[2018-11-16] MEDS ORDERED: FUROSEMIDE 40 MG in SYRINGE 0 ML IV ONE (20:00)
[2018-11-16] MEDS ORDERED: WARFARIN SOD 5 MG TAB PO ONE (20:15)
[2018-11-16] MEDS ORDERED: POTASSIUM PHOSPHATE 15 MMOL in SODIUM CHLORIDE 0.9% 250 ML IV ONE (20:15)
[2018-11-16] MEDS ORDERED: GLUCOSE 10 TABS/TUBE PO PRN (20:53)
[2018-11-16] MEDS ORDERED: GLUCAGON FOR INJ 1 MG VIAL SQ PRN (20:53)
[2018-11-16] MEDS ORDERED: DEXTROSE 50% 50 ML SYRINGE IV PRN (20:53)
[2018-11-16] MEDS ORDERED: GLUCOSE 40% GEL 15 GM TUBE PO PRN (20:53)
[2018-11-16] MEDS: ALBUTEROL HFA 8 GM INHALER INH SCH (21:03)
[2018-11-16] MEDS: PANTOprazole 40 MG TAB PO SCH (21:04)
[2018-11-16] MEDS: INSULIN ASPART 100 UNITS/ML 3 ML PEN SC SCH (21:04)
[2018-11-16] MEDS ORDERED: ALBUMIN 25% 50 ML IV STA (21:16)
[2018-11-16] MEDS: INSULIN GLARGINE SOLOSTAR 100 UNITS/ML 3 ML PEN SC SCH (22:47)
[2018-11-17] MEDS: ALBUTEROL HFA 8 GM INHALER INH SCH ×4 (02:28→20:43)
[2018-11-17] MEDS ORDERED: DiphenhydrAMINE HCL 50 MG/ML VIAL IV ONE (03:58)
[2018-11-17] MEDS ORDERED: EUCERIN CR 120 GM JAR EXT PRN (04:52)
[2018-11-17 06:08] LABS: Basophils # (auto) 0.03 K/uL (0-0.2); Basophils % (auto) 0.4 %; Eosinophils # (auto) 0.38 K/uL (0-0.5); Eosinophils % (auto) 5.1 %; Hematocrit (blood only) 38.7 % (37-47); Hemoglobin 12.1 g/dL (12.0-16.0); Immature Granulocytes # (auto) 0.02 K/uL (0.00-0.02); Immature Granulocytes % (auto) 0.3 %; Lymphocytes # (auto) 3.27 K/uL (1.2-3.4); Lymphocytes % (auto) 43.8 %; Mean Corpuscular Hgb Conc 31.3 g/dL (32-36); Mean Corpuscular Volume 83.6 fL (80-100); Monocytes # (auto) 0.64 K/uL (0.11-0.59); Monocytes % (auto) 8.6 %; Neutrophils # (auto) 3.12 K/uL (1.4-6.5); Neutrophils % (auto) 41.8 %; Platelet Count 227 K/uL (130-400); RDW Coefficient of Variation 20.5 % (11.5-14.5); RDW Standard Deviation 62.3 fL (36.4-46.3); Red Blood Count 4.63 M/uL (4.2-5.4); White Blood Count 7.46 K/uL (4.8-10.8)
[2018-11-17 06:22] LABS: INR 1.6 (0.9-1.1)
[2018-11-17] MEDS ORDERED: LEVOTHYROXINE SODIUM 200 MCG TABLET PO SCH (06:30)
[2018-11-17 06:34] LABS: Anisocytosis Present; Giant Platelets 1+
[2018-11-17 06:36] LABS: Albumin Level 2.5 gm/dl (3.4-5.0); BUN Creatinine Ratio 11.9 (10-20); Creatinine Clr Calc Pharmacy 75.3 ml/min; Est GFR (African American) 94.8; Est GFR (Non-African American) 81.8; Magnesium 1.6 mg/dl (1.8-2.4); Potassium 3.3 mmol/L (3.5-5.1)
[2018-11-17 06:41] LABS: Albumin Globulin Ratio 0.6 (0.9-2); Bilirubin,Total 3.9 mg/dl (0.2-1); Phosphorus 2.2 mg/dl (2.5-4.9); Total Protein 6.5 gm/dl (6.4-8.2)
[2018-11-17] MEDS ORDERED: LEVOTHYROXINE SODIUM 200 MCG TABLET PO ONE (07:19)
[2018-11-17] MEDS ORDERED: POTASSIUM PHOS 3 MMOL/1 ML INFUSION IV STA (07:45)
[2018-11-17] MEDS ORDERED: POTASSIUM CHLORIDE 10 MEQ TABCR PO STA (07:45)
[2018-11-17] MEDS ORDERED: MAGNESIUM SULFATE / D5W 1 GM/100 ML BAG IV ONE (08:00)
[2018-11-17] MEDS: PANTOprazole 40 MG TAB PO SCH ×2 (08:20→20:40)
[2018-11-17] MEDS: MAGNESIUM OXIDE 400 MG TAB PO SCH ×2 (08:20→20:44)
[2018-11-17] MEDS: METOPROLOL SUCC 25MG EXT REL TAB PO SCH (08:20)
[2018-11-17] MEDS: LORATADINE 10 MG TAB PO SCH (08:20)
[2018-11-17] MEDS: FERROUS GLUCONATE 324 MG TAB PO SCH (08:20)
[2018-11-17] MEDS: INSULIN ASPART 100 UNITS/ML 3 ML PEN SC SCH ×4 (08:28→20:39)
[2018-11-17] MEDS ORDERED: FUROSEMIDE 40 MG in SYRINGE 0 ML IV SCH (09:00)
[2018-11-17] MEDS ORDERED: MAGNESIUM OXIDE 400 MG TAB PO SCH (09:00)
[2018-11-17] MEDS ORDERED: POTASSIUM PHOSPHATE 21 MMOL in SODIUM CHLORIDE 0.9% 500 ML IV ONE (09:00)
[2018-11-17] MEDS: POTASSIUM CHLORIDE 10 MEQ TABCR PO SCH (09:03)
--- NOTE | 2018-11-17 12:47 | Hospitalist Progress Note ---
Date of Service November 17, 2018 Assessment & Plan (1) Anasarca: (2) CHF (congestive heart failure): (3) Altered mental status, unspecified: (4) Medical non-compliance: (5) Lung cancer: (6) Multiple pulmonary nodules determined by computed tomography of lung: (7) Weight gain: (8) Acute exacerbation of CHF (congestive heart failure): (9) Hypothyroidism: (10) Elevated troponin: (11) Colon cancer metastasized to multiple sites: 52 y/o F with complex medical history admitted because of anasarca and abdominal discomfort on on November 16, 2018, Complex medical Hx AF, DM II, HTN, HLD, hypothyroidism, asthma, ANA - CPAP, obesity, depression, diastolic CHF, metastatic colon CA - colectomy w/ostomy , ostomy reversal 11/18 currently receiving chemotherapy. Lung cancer, CT abdomen was obtained showing progression of body wall edema and small BL pleural effusions as acute findings. Anasarca: etiology unknown, Likely because of multiple factorial such as end-stage cancer disease, malnutrition, beriberi syndrome, CHF, liver failure or renal failure Anasarca leading to abdominal discomfort and SOB Will need to comprehensive evaluation and treatment, I will check echo, check vitamin B1, vitamin D, TSH, prealbumin, Start input output fluid restriction, daily weight, palliative care consultation too for the goal of the care Dietitian consult, Fluid restriction, I/O and daily weigh Started diuretic of Lasix 40 twice daily Hypomagnesemia, hypophosphatemia, monitor and replace, Elevated bilirubin include total bili and direct bili, however liver enzyme was within normal limits cause is not clear We will check CT of liver w/ cont to evaluation mets to the liver, Because she is allergic to IV dye will do the pretreatment due to dye allergy. If total bili continue to increased will need a GI consult, Possible exacerbation of diastolic CHF with pleural effusion and pulmonary edema possible, will check 2D echo, see above Chronic AF, continue on anticoagulated with Coumadin and will receive an additional dose as her INR is subtherapeutic. 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 Subjective Multiple complaint, include abdominal discomfort, low appetite, shortness of breath, and lower extremity edema Reports some cough with white sputum, denies chest pain palpitation, Denies nausea vomiting , diarrhea or constipation Denies dysuria urgency and frequency's, Denies facial droop lower extremities weakness Physical Exam 2 Vital Signs (Past 24 Hours): Last Vital Signs Temp 36.3 C L 11/17/18 08:23 Pulse 85 11/17/18 08:23 Resp 20 11/17/18 08:23 BP 135/77 11/17/18 08:23 Pulse Ox 100 11/17/18 08:23 Physical Exam: General: Chronically ill looking however conversational, AAO x 3, no distress , speak full sentence, ENT: No erythema or exudates, no thrush Eyes: SAEID, EOMI - mild icterus Head and neck: Normocephalic, atraumatic, No JVD, neck is supple. Chest/heart: Nontender, S1,2, RRR, no murmurs, no gallops Lungs:decreased breathing sound, no wheezing or crackles, 1-2+ lower extremity swelling Abdomen: Distended - mild diffuse tenderness , soft, BS positive Neuro: AAO x 3, speech is clear, no unilateral weakness or loss of sensation, coordination intact Musculoskeletal: No joint inflammation, muscle tenderness, FROM Skin: No acute rashes or ulcers Extremities: No clubbing, cyanosis, edema Results & Data Laboratory Results Laboratory Results - last 24 hr 11/16/18 11/16/18 11/16/18 13:20 13:20 13:20 WBC 6.84 RBC 4.58 Hgb 12.1 Hct 37.9 MCV 82.8 MCH 26.4 MCHC 31.9 L RDW Std Deviation 62.0 H RDW Coeff of [place] 20.3 H Plt Count 212 MPV 9.5 Immature Gran % (Auto) 0.3 Neut % (Auto) 53.6 Lymph % (Auto) 32.9 [place] % (Auto) 9.4 Eos % (Auto) 3.5 Baso % (Auto) 0.3 Immature Gran # (Auto) 0.02 Neut # (Auto) 3.67 Lymph # (Auto) 2.25 [place] # (Auto) 0.64 H Eos # (Auto) 0.24 Baso # (Auto) 0.02 Giant Platelets Anisocytosis Present Echinocytes 1+ PT INR VBG pH VBG pCO2 VBG pO2 VBG HCO3 VBG O2 Saturation VBG Base Excess Barometric Pressure Sodium 136 Potassium 3.5 Chloride 99 Carbon Dioxide 30 Anion Gap 7.0 BUN 11 Creatinine 0.94 Est Cr Clr Drug Dosing 64.2 Est GFR ( Amer) 79.2 Est GFR (Non-Af Amer) 68.3 BUN/Creatinine Ratio 11.6 Glucose 379 H* POC Glucose Calcium 8.0 L Phosphorus Magnesium Total Bilirubin 3.8 H Direct Bilirubin AST 23 ALT 17 Alkaline Phosphatase 158 H Ammonia 49.0 H Troponin I NT-Pro-B Natriuret Pep Total Protein 6.4 Albumin 2.4 L Globulin 4.0 Albumin/Globulin Ratio 0.6 L Lipase 225 Beta-Hydroxybutyric Acd 0.96 TSH Urine Color Urine Appearance Urine pH Ur Specific [place] Urine Protein Urine Glucose (UA) Urine Ketones Urine Blood Urine Nitrite Urine Bilirubin Urine Urobilinogen Ur Leukocyte Esterase 11/16/18 11/16/18 11/16/18 13:20 13:20 13:45 WBC RBC Hgb Hct MCV MCH MCHC RDW Std Deviation RDW Coeff of [place] Plt Count MPV Immature Gran % (Auto) Neut % (Auto) Lymph % (Auto) [place] % (Auto) Eos % (Auto) Baso % (Auto) Immature Gran # (Auto) Neut # (Auto) Lymph # (Auto) [place] # (Auto) Eos # (Auto) Baso # (Auto) Giant Platelets Anisocytosis Echinocytes PT 16.7 H INR 1.7 H VBG pH VBG pCO2 VBG pO2 VBG HCO3 VBG O2 Saturation VBG Base Excess Barometric Pressure Sodium Potassium Chloride Carbon Dioxide Anion Gap BUN Creatinine Est Cr Clr Drug Dosing Est GFR ( Amer) Est GFR (Non-Af Amer) BUN/Creatinine Ratio Glucose POC Glucose Calcium Phosphorus 1.6 L Magnesium 1.4 L Total Bilirubin Direct Bilirubin 2.3 H AST ALT Alkaline Phosphatase Ammonia Troponin I 0.047 H* NT-Pro-B Natriuret Pep 1516 H Total Protein Albumin Globulin Albumin/Globulin Ratio Lipase Beta-Hydroxybutyric Acd TSH 2.110 Urine Color Yellow Urine Appearance Clear Urine pH 7.0 Ur Specific [place] 1.011 Urine Protein Negative Urine Glucose (UA) 3+ H Urine Ketones Negative Urine Blood Negative Urine Nitrite Negative Urine Bilirubin Negative Urine Urobilinogen Negative Ur Leukocyte Esterase Negative 11/16/18 11/16/18 11/17/18 14:34 19:56 05:47 WBC 7.46 RBC 4.63 Hgb 12.1 Hct 38.7 MCV 83.6 MCH 26.1 MCHC 31.3 L RDW Std Deviation 62.3 H RDW Coeff of [place] 20.5 H Plt Count 227 MPV 10.0 Immature Gran % (Auto) 0.3 Neut % (Auto) 41.8 Lymph % (Auto) 43.8 [place] % (Auto) 8.6 Eos % (Auto) 5.1 Baso % (Auto) 0.4 Immature Gran # (Auto) 0.02 Neut # (Auto) 3.12 Lymph # (Auto) 3.27 [place] # (Auto) 0.64 H Eos # (Auto) 0.38 Baso # (Auto) 0.03 Giant Platelets 1+ Anisocytosis Present Echinocytes PT INR VBG pH 7.44 H VBG pCO2 45 VBG pO2 31 VBG HCO3 30 VBG O2 Saturation < 60.0 VBG Base Excess 5.2 Barometric Pressure 729.4 Sodium Potassium Chloride Carbon Dioxide Anion Gap BUN Creatinine Est Cr Clr Drug Dosing Est GFR ( Amer) Est GFR (Non-Af Amer) BUN/Creatinine Ratio Glucose POC Glucose 294 H Calcium Phosphorus Magnesium Total Bilirubin Direct Bilirubin AST ALT Alkaline Phosphatase Ammonia Troponin I NT-Pro-B Natriuret Pep Total Protein Albumin Globulin Albumin/Globulin Ratio Lipase Beta-Hydroxybutyric Acd TSH Urine Color Urine Appearance Urine pH Ur Specific [place] Urine Protein Urine Glucose (UA) Urine Ketones Urine Blood Urine Nitrite Urine Bilirubin Urine Urobilinogen Ur Leukocyte Esterase 11/17/18 11/17/18 11/17/18 05:47 05:47 07:00 WBC RBC Hgb Hct MCV MCH MCHC RDW Std Deviation RDW Coeff of [place] Plt Count MPV Immature Gran % (Auto) Neut % (Auto) Lymph % (Auto) [place] % (Auto) Eos % (Auto) Baso % (Auto) Immature Gran # (Auto) Neut # (Auto) Lymph # (Auto) [place] # (Auto) Eos # (Auto) Baso # (Auto) Giant Platelets Anisocytosis Echinocytes PT 16.0 H INR 1.6 H VBG pH VBG pCO2 VBG pO2 VBG HCO3 VBG O2 Saturation VBG Base Excess Barometric Pressure Sodium 138 Potassium 3.3 L Chloride 100 Carbon Dioxide 31 Anion Gap 6.0 BUN 10 Creatinine 0.81 Est Cr Clr Drug Dosing 75.3 Est GFR ( Amer) 94.8 Est GFR (Non-Af Amer) 81.8 BUN/Creatinine Ratio 11.9 Glucose 121 H POC Glucose 97 Calcium 8.0 L Phosphorus 2.2 L Magnesium 1.6 L Total Bilirubin 3.9 H Direct Bilirubin AST 21 ALT 17 Alkaline Phosphatase 144 H Ammonia Troponin I NT-Pro-B Natriuret Pep Total Protein 6.5 Albumin 2.5 L Globulin 4.0 Albumin/Globulin Ratio 0.6 L Lipase Beta-Hydroxybutyric Acd TSH Urine Color Urine Appearance Urine pH Ur Specific [place] Urine Protein Urine Glucose (UA) Urine Ketones Urine Blood Urine Nitrite Urine Bilirubin Urine Urobilinogen Ur Leukocyte Esterase 11/17/18 11:30 WBC RBC Hgb Hct MCV MCH MCHC RDW Std Deviation RDW Coeff of [place] Plt Count MPV Immature Gran % (Auto) Neut % (Auto) Lymph % (Auto) [place] % (Auto) Eos % (Auto) Baso % (Auto) Immature Gran # (Auto) Neut # (Auto) Lymph # (Auto) [place] # (Auto) Eos # (Auto) Baso # (Auto) Giant Platelets Anisocytosis Echinocytes PT INR VBG pH VBG pCO2 VBG pO2 VBG HCO3 VBG O2 Saturation VBG Base Excess Barometric Pressure Sodium Potassium Chloride Carbon Dioxide Anion Gap BUN Creatinine Est Cr Clr Drug Dosing Est GFR ( Amer) Est GFR (Non-Af Amer) BUN/Creatinine Ratio Glucose POC Glucose 236 H Calcium Phosphorus Magnesium Total Bilirubin Direct Bilirubin AST ALT Alkaline Phosphatase Ammonia Troponin I NT-Pro-B Natriuret Pep Total Protein Albumin Globulin Albumin/Globulin Ratio Lipase Beta-Hydroxybutyric Acd TSH Urine Color Urine Appearance Urine pH Ur Specific [place] Urine Protein Urine Glucose (UA) Urine Ketones Urine Blood Urine Nitrite Urine Bilirubin Urine Urobilinogen Ur Leukocyte Esterase Diagnostic Findings Abdominal pelvic CT per report: 1. Interval progression of the small bilateral pleural effusions and diffuse body wall edema. 2. No bowel wall thickening or obstruction. 3. Suspect cholelithiasis. No gallbladder wall thickening. 4. Stable 6 mm nodule within the right lower lobe. 5. Rectosigmoid anastomosis. Small linear focus of gas extending to the presacral soft tissues which could represent a tiny fistula or the normal side to end anastomosis of the bowel. This remains unchanged. _ (1) CHF (congestive heart failure) Heart failure chronicity: chronic Heart failure type: unspecified Qualified Code(s): I50.9 - Heart failure, unspecified (2) Altered mental status, unspecified Altered mental status type: somnolence Coma depth: Coma timing: Qualified Code(s): R40.0 - Somnolence (3) Lung cancer Laterality: unspecified laterality Lung location: unspecified part of lung Qualified Code(s): C34.90 - Malignant neoplasm of unspecified part of unspecified bronchus or lung (4) Acute exacerbation of CHF (congestive heart failure) Heart failure type: unspecified Qualified Code(s): I50.9 - Heart failure, unspecified (5) Hypothyroidism Hypothyroidism type: unspecified Qualified Code(s): E03.9 - Hypothyroidism, unspecified
[2018-11-17] MEDS ORDERED: predniSONE 50 MG TAB PO SCH (14:00)
[2018-11-17 14:06] LABS: Prealbumin 4.6 mg/dl (20-40)
[2018-11-17] MEDS ORDERED: WARFARIN SOD 2.5 MG TAB PO SCH (16:00)
[2018-11-17] MEDS: FUROSEMIDE 40 MG TAB PO SCH (17:31)
[2018-11-17] MEDS: INSULIN GLARGINE SOLOSTAR 100 UNITS/ML 3 ML PEN SC SCH (20:41)
[2018-11-18] MEDS ORDERED: HEPARIN 100 UNIT/ML 5ML FLUSH FLUSH PRN (02:11)
[2018-11-18] MEDS: ALBUTEROL HFA 8 GM INHALER INH SCH ×4 (03:02→20:58)
[2018-11-18] MEDS: LEVOTHYROXINE SODIUM 200 MCG TABLET PO SCH (05:15)
[2018-11-18 05:40] LABS: Basophils # (auto) 0.02 K/uL (0-0.2); Basophils % (auto) 0.3 %; Eosinophils # (auto) 0.23 K/uL (0-0.5); Eosinophils % (auto) 3.6 %; Hematocrit (blood only) 35.3 % (37-47); Hemoglobin 11.1 g/dL (12.0-16.0); Mean Corpuscular Hgb Conc 31.4 g/dL (32-36); Mean Corpuscular Volume 81.7 fL (80-100); Mean Platelet Volume 9.9 fL (7.4-10.4); Monocytes % (auto) 10.9 %; Neutrophils # (auto) 2.78 K/uL (1.4-6.5); Neutrophils % (auto) 43.2 %; Platelet Count 226 K/uL (130-400); RDW Coefficient of Variation 20.7 % (11.5-14.5); RDW Standard Deviation 61.7 fL (36.4-46.3); Red Blood Count 4.32 M/uL (4.2-5.4); White Blood Count 6.43 K/uL (4.8-10.8)
[2018-11-18 06:15] LABS: INR 1.9 (0.9-1.1); Prothrombin Time 18.7 Seconds (9.0-12.0)
[2018-11-18 06:16] LABS: Albumin Level 2.3 gm/dl (3.4-5.0); BUN Creatinine Ratio 15.7 (10-20); Bilirubin,Total 3.5 mg/dl (0.2-1); Calcium 7.8 mg/dl (8.5-10.1); Creatinine Clr Calc Pharmacy 77.4 ml/min; Est GFR (African American) 100.7; Est GFR (Non-African American) 86.9; Magnesium 1.5 mg/dl (1.8-2.4); Phosphorus 2.6 mg/dl (2.5-4.9); Potassium 3.9 mmol/L (3.5-5.1); Total Protein 5.8 gm/dl (6.4-8.2)
[2018-11-18 06:43] LABS: Anisocytosis Present; Echinocytes 1+
[2018-11-18] MEDS: FERROUS GLUCONATE 324 MG TAB PO SCH (08:36)
[2018-11-18] MEDS: LORATADINE 10 MG TAB PO SCH (08:36)
[2018-11-18] MEDS: METOPROLOL SUCC 25MG EXT REL TAB PO SCH (08:37)
[2018-11-18] MEDS: FUROSEMIDE 40 MG TAB PO SCH ×2 (08:38→18:10)
[2018-11-18] MEDS: MAGNESIUM OXIDE 400 MG TAB PO SCH ×2 (08:38→21:02)
[2018-11-18] MEDS: POTASSIUM CHLORIDE 10 MEQ TABCR PO SCH (08:39)
[2018-11-18] MEDS: PANTOprazole 40 MG TAB PO SCH ×2 (08:39→21:02)
[2018-11-18] MEDS: INSULIN ASPART 100 UNITS/ML 3 ML PEN SC SCH ×4 (08:42→21:02)
--- NOTE | 2018-11-18 14:26 | Hospitalist Progress Note ---
Date of Service November 18, 2018 Assessment & Plan (1) Anasarca: Anasarca leading to abdominal discomfort and shortness of breath. Unclear whether from CHF vs. hepatic issue from her cancer. - Continue Lasix 40mg PO BID - Fluid restriction, Na restriction - Daily I&Os and daily weights (2) Acute exacerbation of CHF (congestive heart failure): Echo in 08/2018 showed EF 50-55% with moderate/severe mitral regurg. - Plan as above for anasarca (3) Elevated bilirubin: Unclear whether this is a destructive process vs. obstruction. On admission, Tbili to 7.3 and Dbili to 2.3. CT a/p on 11/16 was without contrast, but did not show hepatic masses or biliary obstruction. - On 11/18, Tbili/Dbili were 3.5/2.0. - RUQ u/s - GI consult (4) Colon cancer metastasized to multiple sites: S/p colectomy w/ ostomy in 10/18 & ostomy reversal in 11/18. Was initially on FOLFOX, but had reaction. Then completed CPT-11, 5-FU, leucovorin, and bevacizumab. Currently receiving salvage Avastin therapy, but late heme/onc note on 10/24/2018 indicates concern for progression with pulmonary nodules seen on CT chest on 09/25/2018. - Palliative care consult - No inpatient oncology needs (5) Hypothyroidism: On admission in 08/2018, TSH was 18.5 with FT4 of 4.33. Home dose is 1, 200 mcg and was confirmed in [employer] with PCP specifically discussing dosing. However, on 09/11/2018, her TSH and FT4 were 54 and 1.08 respectively. - Continue home Synthroid 1,200 mcg PO daily (6) A-fib: On warfarin for anticoagulation, but INR was 1.7 on admission. - Continue metoprolol for rate-control - Continue warfarin - Monitor BP (7) Lung cancer: Status post left lower lobe wedge resection. - No current needs (8) DVT prophylaxis: Warfarin for her afib Subjective 53yo F w/ hx of hypothyroidism, metastatic cancer who presents with shortness of breath and lab abnormalities. This morning, she reports continued poor energy. Reports shortness of breath, reports "hardness" in her abdomen, reports leg swelling. Reports no fevers/ chills, chest pain, abdominal pain, nausea, or vomiting. Physical Exam 2 Vital Signs (Past 24 Hours): Last Vital Signs Temp 36.4 C L 11/18/18 11:03 Pulse 78 11/18/18 11:03 Resp 18 11/18/18 11:03 BP 108/76 11/18/18 11:03 Pulse Ox 97 11/18/18 11:03 Constitutional: WD/WN, vitals as above Eyes: EOM intact bilaterally; no conjunctival abnormality ENMT: external ear and nose normal, oropharynx normal Neck: trachea midline, no thyromegaly normal visual inspection Respiratory: normal respiratory effort, lungs clear to auscultation no respiratory distress Cardiovascular: Rate/Rhythm: regular rate and regular rhythm Heart Sounds: normal S1 and normal S2 Extremities: + edema Gastrointestinal (Abdomen): Inspection/Auscultation: abdomen normal to inspection; abdomen not distended Musculoskeletal: no cyanosis or clubbing, extremities motor strength 5/5 Skin: no rashes, warm and dry Neurologic: moves all extremities and awake Psychiatric: Orientation: alert, oriented to person and cooperative _ (1) Lung cancer Laterality: unspecified laterality Lung location: unspecified part of lung Qualified Code(s): C34.90 - Malignant neoplasm of unspecified part of unspecified bronchus or lung (2) Acute exacerbation of CHF (congestive heart failure) Heart failure type: unspecified Qualified Code(s): I50.9 - Heart failure, unspecified (3) Hypothyroidism Hypothyroidism type: unspecified Qualified Code(s): E03.9 - Hypothyroidism, unspecified (4) A-fib Atrial fibrillation type: chronic Qualified Code(s): I48.2 - Chronic atrial fibrillation
[2018-11-18] MEDS: MAGNESIUM SULFATE / D5W 1 GM/100 ML BAG IV SCH ×2 (14:57→16:08)
--- NOTE | 2018-11-18 15:02 | Palliative Care Consultation ---
Date of Consultation November 18, 2018 Assessment & Plan (1) Palliative care encounter: Patient is a 53-year-old female with a past medical history significant for metastatic colon cancer-status post colectomy with ostomy and reversal in November 2017, metastases to lung. History of lung cancer status post wedge resection, poorly controlled diabetes-hemoglobin A1c 10.8, chronic A. fib, asthma, hypertension, hypothyroid, ANA, depression, obesity, and medical noncompliance. Patient presented to the emergency room on 11/16 for abnormal lab work done by her PCP. Patient was found to have low magnesium, low phosphorus, elevated glucose, low albumin as well as elevated bilirubin. Patient's bilirubin has been trending upward since August-it was 1.5 in August it peaked on 11/15 at 4.3, it was 3.5 on labs done this morning. Patient's INR was slightly subtherapeutic at 1.7. Patient received repletion of her phosphorus, her magnesium continues to be low. Patient was supposedly taking magnesium oxide at home. Patient receiving IV magnesium replacement. Patient is followed by Dr. Quintana of oncology-she is receiving chemo for her colon cancer. Patient's previous admission the end of August she had ESBL and increased ammonia level-she was discharged to [facility] for rehab. Patient's main complaint is nausea after eating breakfast this a.m. patient has not requested any as needed Zofran for nausea, she is on Protonix as well as Zantac for her recently diagnosed gastritis on EGD this past June. Patient states she wants everything done including intubation, shock, CPR. She wishes to continue aggressive medical management for her multiple medical problems. -CODE STATUS-full code -Nausea-on Nexium and ranitidine, as needed Zofran -Hyperbilirubinemia-undergoing workup for etiology-colon cancer-follows with Dr. Quintana for chemo -Medical noncompliance-we will try to encourage compliance with her current medication regime -Hypophosphatemia-repleted in the ER -Low magnesium-receiving IV mag sulfate -DM-poor control-may benefit from more intensive diabetes teaching -Abdominal wall edema-likely due to low albumin which is chronic since August 2017 -Chronic A. fib-rate controlled on metoprolol, continue Coumadin-encourage compliance with AC -Lung cancer-status post wedge resection-lung nodule-stable on scans -Asthma-controlled on current inhalers -[id number]-rtxf-yhgpqozqzf on current meds-continue to encourage medication compliance Limited insight into her disease may contribute to her medical noncompliance. Will continue to follow and assist with any medical decision making. (2) Elevated bilirubin: Etiology unknown (3) Hypomagnesemia: Receiving replacement mag sulfate (4) Colon cancer metastasized to multiple sites: -May be contributing to her hyperbilirubinemia, has had elevated ammonia level on her last admission in August (5) Medical non-compliance: Encourage compliance with current medications (6) GERD (gastroesophageal reflux disease): GERD with esophagitis seen on EGD in June-continue PPI and H2 yudy Esophagitis presence: without esophagitis Qualified Code(s): K21.9 - Gastro-esophageal reflux disease without esophagitis (7) Nausea: Continue as needed Zofran, may have a component of gastroparesis due to her uncontrolled diabetes. Trial of Reglan may be helpful History of Present Illness Reason for Consultation: Address goals of care, patient with frequent hospitalizations and emergency room visits Requesting Physician: Dr. Darien Castillo Attending Physician: Norman Weems MD History of Present Illness Patient is a 53-year-old female with a past medical history significant for metastatic colon cancer-status post colectomy with ostomy and reversal in November 2017, metastases to lung. History of lung cancer status post wedge resection, poorly controlled diabetes-hemoglobin A1c 10.8, chronic A. fib, asthma, hypertension, hypothyroid, ANA, depression, obesity, and medical noncompliance. Patient presented to the emergency room on 11/16 for abnormal lab work done by her PCP. Patient was found to have low magnesium, low phosphorus, elevated glucose, low albumin as well as elevated bilirubin. Patient's bilirubin has been trending upward since August-it was 1.5 in August it peaked on 11/15 at 4.3, it was 3.5 on labs done this morning. Patient's INR was slightly subtherapeutic at 1.7. Patient received repletion of her phosphorus, her magnesium continues to be low. Patient was supposedly taking magnesium oxide at home. Patient receiving IV magnesium replacement. Patient is followed by Dr. Quintana of oncology-she is receiving chemo for her colon cancer. Patient's previous admission the end of August she had ESBL and increased ammonia level-she was discharged to [facility] for rehab. Patient's main complaint is nausea after eating breakfast this a.m. patient has not requested any as needed Zofran for nausea, she is on Protonix as well as Zantac for her recently diagnosed gastritis on EGD this past June. Patient may have a component of gastroparesis due to her poorly controlled diabetes that may be contributing to her frequent abdominal discomfort and nausea. Patient states she wants everything done including intubation, shock, CPR. She wishes to continue aggressive medical management for her multiple medical problems. Allergies Allergy/AdvReac Type Severity Reaction Status Date / Time daptomycin Allergy Severe SHORTNESS Verified 11/16/18 14:38 OF BREATH Iodinated Contrast- Oral and Allergy Severe Anaphylaxis Verified 11/16/18 14:38 IV Dye bee venom protein (honey bee) Allergy Intermediate HIVES Verified 11/16/18 14:38 clindamycin Allergy Intermediate HIVES Verified 11/16/18 14:38 Sulfa (Sulfonamide Allergy Intermediate BACTRIM-HIV Verified 11/16/18 14:38 Antibiotics) ES trimethoprim Allergy Intermediate HIVES Verified 11/16/18 14:38 vancomycin Allergy Intermediate RASH Verified 11/16/18 14:38 dulaglutide AdvReac Severe BRAND-TRULICITY, Verified 11/16/18 14:38 SEVERE GI UPSET, CONSTIPATION Home Medications Home Medications Medication Instructions Recorded Confirmed Type albuterol sulfate [Ventolin HFA] 2 puff INHALATION Q6H 06/11/18 11/16/18 History ferrous gluconate 324 mg PO QAM 06/11/18 11/16/18 History fluticasone-vilanterol [Breo 1 inh INHALATION DAILY 06/11/18 11/16/18 History Ellipta] furosemide 40 mg PO QAM 06/11/18 11/16/18 History insulin aspart U-100 [Novolog 1 sliding scale dose SUBCUT TID 06/11/18 11/16/18 History PenFill U-100 Insulin] levothyroxine [Levoxyl] 1,200 mcg PO QAM 06/11/18 11/16/18 History loratadine 10 mg PO DAILY 06/11/18 11/16/18 History magnesium oxide 400 mg PO DAILY 06/11/18 11/16/18 History hydrocortisone [Proctosol HC] 1 appln [place] HS PRN #30 gm 07/31/18 11/16/18 Rx diphenhydramine 25 mg capsule 50 mg PO Q6 PRN cap 08/02/18 11/06/18 History calcium carbonate-mag hydroxid 0 tab PO Q6H PRN 09/25/18 11/16/18 History [Rolaids] esomeprazole magnesium [Nexium] 20 mg PO BID 09/25/18 11/16/18 History metoprolol succinate 25 mg PO DAILY 09/25/18 11/16/18 History ranitidine HCl [Zantac] 150 mg PO BID 09/25/18 11/16/18 History lactulose 30 ml PO BID PRN #30 ml 09/29/18 11/16/18 Rx miconazole nitrate [Desenex] 1 applic EXT BID #1 g 09/29/18 11/16/18 Rx insulin degludec [Tresiba 30 unit SUBCUT HS 11/16/18 11/16/18 History FlexTouch U-100] potassium chloride 20 meq PO QAM 11/16/18 11/16/18 History warfarin 2.5 mg PO 2XWK 11/16/18 11/16/18 History Patient History Medical History Demand ischemia Hypomagnesemia DVT prophylaxis Medical non-compliance Acute exacerbation of CHF (congestive heart failure) (Acute) Hypothyroidism (Acute) 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 difficile colitis DM II (diabetes mellitus, type II), controlled H/O: lung cancer Left s/p L VATS HTN (hypertension) Hypothyroid Metastatic colon cancer in female lung mets Morbid obesity ANA (obstructive sleep apnea) Surgical History H/O carpal tunnel repair H/O total hysterectomy History of colostomy reversal S/P T&A (status post tonsillectomy and adenoidectomy) S/P colectomy S/P debridement Abdomen S/P total knee arthroplasty Bilateral Family History Other CAD (coronary artery disease) DM II (diabetes mellitus, type II), controlled Social History Current Living Situation: Spouse current occupational status: unemployed and disabled Other Information That Helps Us Care for You: No Feels Safe at Home: Yes Safety Concerns: Feels Safe At This Time Smoking Status: Never smoker Do You Dip or Chew Tobacco: No Second Hand Exposure: No Tobacco Cessation Education Requested by Patient: No Hx Alcohol Use: No Hx Substance Use: No Beliefs That Will Affect Care: None Communication Ability: Effective Review of Systems Eyes: no problem reported Ear, Nose, Mouth, Throat: + dysphagia Respiratory: no problem reported Cardiovascular: no problem reported Gastrointestinal: + nausea Musculoskeletal: + muscle weakness Neurologic: no problem reported Endocrine: + cold intolerance Hematologic / Lymphatic: no problem reported Physical Exam 2 Vital Signs (Past 24 Hours): Last Vital Signs Temp 36.4 C L 11/18/18 11:03 Pulse 78 11/18/18 11:03 Resp 18 11/18/18 11:03 BP 108/76 11/18/18 11:03 Pulse Ox 97 11/18/18 11:03 Physical Exam: PE: No acute distress HEENT: EOMI, normal hearing Respiratory: Clear breath sounds, no wheezes, no labored respirations CV: Regular rate, no lower extremity edema Abdomen: Soft, nontender, obese Extremities: Full range of motion Neuro alert and oriented Psych: Appropriate Time Spent Attending Total time spent 60 minutes with greater than 50% of the time spent at bedside discussing patient's goals of care as well as CODE STATUS. Encouraging medical compliance
--- NOTE | 2018-11-18 19:30 | Ultrasound Report ---
ABDOMINAL ULTRASOUND, RIGHT UPPER QUADRANT HISTORY: Right upper quadrant abdominal pain. COMPARISON: CT of the abdomen and pelvis November 16, 2018. FINDINGS: Exam is compromised by suboptimal penetration. No hepatic lesions are identified. There is no biliary ductal dilatation. The pancreatic body is normal. The head and tail are obscured. There is no right hydronephrosis. Suspected tiny gallstones are noted, better depicted on CT of November 16, 2018. The gallbladder is not distended. Gallbladder wall thickness is at the upper limits of normal, measuring 3 mm. No sonographic Miranda sign was elicited. IMPRESSION: 1. Suspected tiny gallstones. Gallbladder wall thickness at the upper limits of normal. No sonographi c Miranda sign or gallbladder distention. These findings do not strongly suggest acute cholecystitis a lthough a hepatobiliary scan could be obtained as indicated. 2. No biliary ductal dilatation. Electronically signed by: Humberto Montanez M.D. 11/18/2018 7:28 PM
[2018-11-18] MEDS: INSULIN GLARGINE SOLOSTAR 100 UNITS/ML 3 ML PEN SC SCH (21:02)
--- NOTE | 2018-11-19 00:07 | Consultation Report ---
DATE OF CONSULTATION: 11/18/2018 ATTENDING PHYSICIAN: Dr. Castillo. CONSULTING PHYSICIAN: Nicanor Burns DO REASON FOR CONSULTATION: Hyperbilirubinemia. HISTORY OF PRESENT ILLNESS: Luisa Bernard is a 53-year-old female who was found to have a colon cancer on a colonoscopy in 08/2017 with metastasis to the lungs. She did undergo a resection, which resulted in an ostomy, which was subsequently reversed in 11/2017. She did undergo a repeat colonoscopy in 07/2018 and was noted to have a large amount of stool within the colon interfering with visualization. Biopsies were performed at the site of her anastomosis and returned benign. She initially was treated with FOLFOX therapy; however, that though suffered drug reactions and subsequently had her chemo switched. She has been on a maintenance Avastin therapy in the past and presented to the ER on 11/16/2018 with complaints of elevated liver enzymes as per her primary doctor on an outpatient laboratory studies. The patient did admit to feeling weak and dizzy. Her initial laboratory testing on admission showed a lipase level of 225, alkaline phosphatase of 152, a total bilirubin of 4.3, direct bilirubin on 11/16/2018 was 2.3. Her AST was 26 and her ALT was 16. She was noted to have a BNP on admission of 1516. She did undergo imaging studies in the ER including a CT scan of the abdomen and pelvis, which showed bilateral pleural effusions, suspected cholelithiasis, though no gallbladder wall thickening. A stable 6 mm nodule within the right lower lobe and a rectosigmoid anastomosis with a small linear focus of gas extending to the presacral soft tissues, which could represent a tiny fistula on normal side and anastomosis of the bowel, which was unchanged. At the time that I saw the patient, she complained of some intermittent nausea, though denied any significant abdominal pain, she did note an increase in her abdominal girth though there was no evidence of ascites on recent imaging. She states her weight has fluctuated recently, being as low as 71.4 kg on 07/01/2018 and today's value of 80.2 kg. She denies any hematemesis, melena, hematochezia, fevers, chills, vomiting, and hematemesis. She herself does not notice any jaundice or pruritus. Her most recent laboratory studies from today showed a white blood cell count of 6.43, hemoglobin 11.1, hematocrit 35.3, platelet count 226. Her PT is 18.7 with an INR of 1.9, total bilirubin today was 3.5. Direct bilirubin today was 2.0, AST was 25, ALT 16, and alkaline phosphatase of 137. BUN and creatinine were 12 and 0.77. She had no further complaints, though does have general questions concerning the status of her cancer and has limited understanding into her disease and her overall health in general. PAST MEDICAL HISTORY: Significant for demand ischemia, hypomagnesemia, medical noncompliance, heart failure, hypothyroidism, history of anticoagulant use with Coumadin, esophagitis, gastritis, metastatic colon cancer, GERD, hypothyroidism, uncontrolled type 2 diabetes, morbid obesity, hypertension, dyslipidemia, obstructive sleep apnea, mitral regurgitation, atrial fibrillation, hyperbilirubinemia, hypothyroidism, hypertension, atrial fibrillation, C. diff colitis. PAST SURGICAL HISTORY: Includes status post colectomy with ileostomy, status post reversal of ileostomy, total knee arthroplasty, hysterectomy, tonsillectomy, carpal tunnel repair. ALLERGIES: DAPTOMYCIN, CONTRAST DYE, BEE VENOM, CLINDAMYCIN, SULFA ANTIBIOTICS, TRIMETHOPRIM, VANCOMYCIN, DULAGLUTIDE. MEDICATIONS AT PRESENT: Albuterol 2 puffs via inhaler q. 6 hours p.r.n., ferrous gluconate 324 mg p.o. q.a.m., furosemide 40 mg p.o. b.i.d., hydromorphone 0.5 mg IV q.3 p.r.n. pain, sliding scale insulin, Glargine 15 units subQ at bedtime, lactulose 20 g p.o. b.i.d. p.r.n., levothyroxine 1200 mcg p.o. daily, Claritin 10 mg daily, magnesium hydroxide 30 mL p.o. q. 12 p.r.n., Mag-Ox 400 mg p.o. b.i.d., metoprolol 25 mg p.o. daily, Zofran 4 mg IV q. 6 p.r.n., Protonix 40 mg IV b.i.d., tramadol 50 mg p.o. q. 4 p.r.n., warfarin 2.5 mg p.o. Sunday and Sunday, warfarin as per ordering physician, otherwise Ambien 5 mg p.o. at bedtime p.r.n. SOCIAL HISTORY: She is , unemployed, disabled. No current tobacco, alcohol, or illicit drug use. FAMILY HISTORY: Negative for GI malignancy or inflammatory bowel disease. REVIEW OF SYSTEMS: Negative x12 systems review other than pertinent positives listed in the HPI. PHYSICAL EXAMINATION: VITAL SIGNS: Temp 36.4, pulse rate 79, respirations 18, blood pressure 98/68, pulse ox 98% on room air. GENERAL: Obese, cooperative, chronic ill appearing, in no acute distress. HEAD: Normocephalic, atraumatic. EYES: Pupils equally round. Sclerae are icteric. ENT: External evaluation of ears and nose are normal. Oropharynx clear. NECK: Soft and supple. There is no JVD or lymphadenopathy. CHEST: Clear to auscultation bilaterally. CARDIOVASCULAR SYSTEM: Regular rate and rhythm. ABDOMEN: Soft, distended. No appreciable hepatosplenomegaly. Nontender. EXTREMITIES: No clubbing, cyanosis, or edema. PSYCHIATRY: Oriented to person, place, and time. IMPRESSION: A 53-year-old female with widely metastatic colon cancer and persistent direct hyperbilirubinemia. PLAN: At the present time, the patient is scheduled to undergo an ultrasound of the abdomen today. Further recommendations will follow this exam. The differential diagnosis in this patient is: 1. Medication induced. 2. Viral hepatitis. 3. Metastatic disease to the liver 4. IVAN induced cirrhosis 5. Gallstones/Choledocholithiasis 6. Hypoperfusion 7. Less likely gallbladder disease. I would recommend that the patient continue to receive supportive care as she is receiving currently and I would also continue to discuss palliative options with the patient as she does have widely metastatic colon cancer as well as multiple other medical comorbidities. I will follow her clinical course and make further recommendations as needed. Once again, thanks for allowing me to participate in the care of this patient. If you have any further questions, please do not hesitate in contacting me. ALEXA
[2018-11-19] MEDS: ALBUTEROL HFA 8 GM INHALER INH SCH ×4 (01:52→20:38)
[2018-11-19] MEDS: LEVOTHYROXINE SODIUM 200 MCG TABLET PO SCH (05:53)
[2018-11-19 06:09] LABS: Basophils # (auto) 0.03 K/uL (0-0.2); Basophils % (auto) 0.4 %; Eosinophils # (auto) 0.23 K/uL (0-0.5); Eosinophils % (auto) 3.4 %; Hematocrit (blood only) 36.9 % (37-47); Hemoglobin 11.8 g/dL (12.0-16.0); Immature Granulocytes # (auto) 0.01 K/uL (0.00-0.02); Immature Granulocytes % (auto) 0.1 %; Lymphocytes # (auto) 2.47 K/uL (1.2-3.4); Lymphocytes % (auto) 36.3 %; Mean Corpuscular Volume 82.9 fL (80-100); Mean Platelet Volume 9.6 fL (7.4-10.4); Monocytes # (auto) 0.78 K/uL (0.11-0.59); Monocytes % (auto) 11.5 %; Neutrophils # (auto) 3.29 K/uL (1.4-6.5); Neutrophils % (auto) 48.3 %; Platelet Count 229 K/uL (130-400); RDW Coefficient of Variation 21.1 % (11.5-14.5); RDW Standard Deviation 63.4 fL (36.4-46.3); Red Blood Count 4.45 M/uL (4.2-5.4); White Blood Count 6.81 K/uL (4.8-10.8)
[2018-11-19 06:46] LABS: Prothrombin Time 19.1 Seconds (9.0-12.0)
[2018-11-19 06:47] LABS: Albumin Level 2.4 gm/dl (3.4-5.0); Anisocytosis Present; BUN Creatinine Ratio 16.1 (10-20); Calcium 8.2 mg/dl (8.5-10.1); Creatinine Clr Calc Pharmacy 63.6 ml/min; Echinocytes 1+; Est GFR (African American) 79.2; Est GFR (Non-African American) 68.3; Magnesium 1.8 mg/dl (1.8-2.4); Tear Drop Cells 1+
[2018-11-19 06:49] LABS: Bilirubin,Total 3.5 mg/dl (0.2-1); Phosphorus 2.6 mg/dl (2.5-4.9); Total Protein 6.2 gm/dl (6.4-8.2)
[2018-11-19] MEDS: INSULIN ASPART 100 UNITS/ML 3 ML PEN SC SCH ×4 (08:53→20:45)
[2018-11-19] MEDS: POTASSIUM CHLORIDE 10 MEQ TABCR PO SCH (08:54)
[2018-11-19] MEDS: FUROSEMIDE 40 MG TAB PO SCH (08:55)
[2018-11-19] MEDS: PANTOprazole 40 MG TAB PO SCH ×2 (08:55→20:47)
[2018-11-19] MEDS: LORATADINE 10 MG TAB PO SCH (08:55)
[2018-11-19] MEDS: MAGNESIUM OXIDE 400 MG TAB PO SCH ×2 (08:55→20:46)
[2018-11-19] MEDS: METOPROLOL SUCC 25MG EXT REL TAB PO SCH (08:56)
--- NOTE | 2018-11-19 09:26 | Gastroenterology Progress Note ---
Date of Service November 19, 2018 Assessment & Plan (1) Elevated bilirubin: Unclear etiology. AST & ALT are normal. Bilirubin trending down. Unclear if medication induced vs gallbladder issue vs PBC vs other -Obtain HIDA scan -Continue to monitor bilirubin -If HIDA unremarkable, could consider obtaining an AMA though this is unlikely to change the clinical outcome Present on Admission?: Yes (2) Confusion: -Possibly from Ambien -Check ammonia level -If not improved, consider head CT and UA Supervising Physician Co-Signing Physician Notes Agree with SHERICE Osorio as above Abd: Soft, NT, slight distention, +BS HIDA scan was negative Continue current therapy and supportive care Subjective Patient is a 53 yo female with a history of widely metastatic colon cancer. GI has been following for elevated bilirubin of unclear cause. The patient's labs look improved today with a T bili of 3.5 and D bili of 2.0. AST & ALT are unremarkable. Alk phos is 159. H/H is 11.8/36.9. INR 2.0. The patient is slightly confused this AM. Per nursing, she had been given an Ambien due to sleeping issues. She underwent an abdominal US on 11/18 that indicated tiny gallstones. There was no acute cholecystitis but a HIDA was recommended for further work-up. The patient, though confused, is able to deny pain this AM. Review of Systems Patient denies pain, but full ROS was difficult to obtain due to patient's confusion Physical Exam 2 Vital Signs (Past 24 Hours): Last Vital Signs Temp 36.8 C 11/19/18 08:52 Pulse 88 11/19/18 08:52 Resp 16 11/19/18 08:52 BP 84/54 L 11/19/18 08:52 Pulse Ox 97 11/19/18 08:52 Constitutional: + ill appearing Eyes: PERRL, conjunctivae normal, anicteric sclerae Respiratory: normal respiratory effort Cardiovascular: Rate/Rhythm: regular rate Gastrointestinal (Abdomen): normal bowel sounds, soft, nontender, no hepatosplenomegaly
--- NOTE | 2018-11-19 13:05 | Nuclear Medicine Report ---
NM hepatobiliary wo pharm CLINICAL HISTORY: Elevated bilirubin. Gallstones. COMPARISON STUDY: Biliary ultrasound dated 11/18/2018 FINDINGS: The patient was injected with 5.5 mCi of technetium 99m Choletec. The gallbladder was first visualized on the 15 minute image. There is normal passage of activity into small bowel. IMPRESSION: Normal study. No evidence of cystic duct obstruction. Electronically signed by: Cameron Browning M.D. 11/19/2018 1:04 PM
--- NOTE | 2018-11-19 14:31 | Hospitalist Progress Note ---
Date of Service November 19, 2018 Assessment & Plan (1) Anasarca: Anasarca leading to abdominal discomfort and shortness of breath. Likely due to CHF as her abdominal imaging (ultrasound on 11/18) did not show any significant liver cirrhosis or metastatic disease. - Continue Lasix 40mg IV BID (initially oral; switched on 11/19 for inadequate diuresis) - Fluid restriction, Na restriction - Daily I&Os and daily weights (2) Acute exacerbation of CHF (congestive heart failure): Echo in 08/2018 showed EF 50-55% with moderate/severe mitral regurg. - Plan as above for anasarca (3) Elevated bilirubin: Unclear whether this is a destructive process vs. obstruction. On admission, Tbili to 7.3 and Dbili to 2.3. CT a/p on 11/16 was without contrast, but did not show hepatic masses or biliary obstruction. RUQ u/s on 11/18 showed small gallstones that were not causing obstruction. HIDA scan on 11/19 was normal and without any biliary pathology. - On 11/18, Tbili/Dbili were 3.5/2.0. - GI consult - Appreciate assistance (4) Colon cancer metastasized to multiple sites: S/p colectomy w/ ostomy in 10/18 & ostomy reversal in 11/18. Was initially on FOLFOX, but had reaction. Then completed CPT-11, 5-FU, leucovorin, and bevacizumab. Currently receiving salvage Avastin therapy, but last heme/onc note on 10/24/2018 indicates concern for progression with pulmonary nodules seen on CT chest on 09/25/2018. - Palliative care consult - Appreciate assistance - Remains full code - No inpatient oncology needs (5) Hypothyroidism: On admission in 08/2018, TSH was 18.5 with FT4 of 4.33. Home dose is 1, 200 mcg and was confirmed in [employer] with PCP specifically discussing dosing. However, on 09/11/2018, her TSH and FT4 were 54 and 1.08 respectively. - Continue home Synthroid 1,200 mcg PO daily (6) A-fib: On warfarin for anticoagulation, but INR was 1.7 on admission. - Continued metoprolol for rate-control - Continued warfarin (INR on 11/19 was 2.0.) - Monitor BP (7) Lung cancer: Status post left lower lobe wedge resection. - No current needs (8) Moderate protein malnutrition: Poor PO intake due to nausea and also likely due to cancer and chemotherapy. Low albumin. - Encourage good PO intake (9) DVT prophylaxis: Warfarin for her afib Subjective 53yo F w/ hx of hypothyroidism, metastatic cancer who presents with shortness of breath and lab abnormalities. This morning, she is slightly confused because she got Ambien last night. She reports her shortness of breath, "hardness" in her abdomen, and leg swelling are all improved. Her nausea has improved as well. Reports no fevers/chills, chest pain, abdominal pain, nausea, or vomiting. Physical Exam 2 Vital Signs (Past 24 Hours): Last Vital Signs Temp 36.2 C L 11/19/18 12:56 Pulse 85 11/19/18 12:56 Resp 18 11/19/18 12:56 BP 98/65 L 11/19/18 12:56 Pulse Ox 98 11/19/18 12:56 Constitutional: WD/WN, vitals as above Eyes: EOM intact bilaterally; no conjunctival abnormality ENMT: external ear and nose normal, oropharynx normal Neck: trachea midline, no thyromegaly normal visual inspection Respiratory: normal respiratory effort, lungs clear to auscultation no respiratory distress Cardiovascular: Rate/Rhythm: regular rate and regular rhythm Heart Sounds: normal S1 and normal S2 Extremities: + edema (Improved from yesterday) Gastrointestinal (Abdomen): Inspection/Auscultation: abdomen normal to inspection; abdomen not distended Musculoskeletal: no cyanosis or clubbing, extremities motor strength 5/5 Skin: no rashes, warm and dry Neurologic: moves all extremities and awake Psychiatric: Orientation: alert, oriented to person and cooperative _ (1) Acute exacerbation of CHF (congestive heart failure) Heart failure type: unspecified Qualified Code(s): I50.9 - Heart failure, unspecified (2) A-fib Atrial fibrillation type: chronic Qualified Code(s): I48.2 - Chronic atrial fibrillation (3) Hypothyroidism Hypothyroidism type: unspecified Qualified Code(s): E03.9 - Hypothyroidism, unspecified (4) Lung cancer Laterality: unspecified laterality Lung location: unspecified part of lung Qualified Code(s): C34.90 - Malignant neoplasm of unspecified part of unspecified bronchus or lung
[2018-11-19] MEDS: FUROSEMIDE 40 MG in SYRINGE 0 ML IV SCH (18:34)
[2018-11-19] MEDS: INSULIN GLARGINE SOLOSTAR 100 UNITS/ML 3 ML PEN SC SCH (20:39)
[2018-11-20] MEDS: ALBUTEROL HFA 8 GM INHALER INH SCH ×4 (02:25→20:16)
[2018-11-20] MEDS: LEVOTHYROXINE SODIUM 200 MCG TABLET PO SCH (05:14)
[2018-11-20 05:21] LABS: Hematocrit (blood only) 34.4 % (37-47); Hemoglobin 11.3 g/dL (12.0-16.0); Mean Corpuscular Hgb Conc 32.8 g/dL (32-36); Mean Corpuscular Volume 82.5 fL (80-100); Mean Platelet Volume 9.6 fL (7.4-10.4); Platelet Count 211 K/uL (130-400); RDW Coefficient of Variation 21.2 % (11.5-14.5); RDW Standard Deviation 63.8 fL (36.4-46.3); Red Blood Count 4.17 M/uL (4.2-5.4); White Blood Count 5.77 K/uL (4.8-10.8)
[2018-11-20 05:38] LABS: Prothrombin Time 19.5 Seconds (9.0-12.0)
[2018-11-20 05:54] LABS: Albumin Level 2.3 gm/dl (3.4-5.0); BUN Creatinine Ratio 19.7 (10-20); Calcium 8.3 mg/dl (8.5-10.1); Creatinine Clr Calc Pharmacy 67.9 ml/min; Est GFR (African American) 85.7; Magnesium 1.5 mg/dl (1.8-2.4); Potassium 3.5 mmol/L (3.5-5.1)
[2018-11-20 05:56] LABS: Albumin Globulin Ratio 0.6 (0.9-2); Bilirubin,Total 3.6 mg/dl (0.2-1); Globulin 3.8 gm/dl (2.5-4.0); Total Protein 6.1 gm/dl (6.4-8.2)
[2018-11-20] MEDS: MAGNESIUM SULFATE / D5W 1 GM/100 ML BAG IV SCH ×3 (08:37→11:17)
[2018-11-20] MEDS: METOPROLOL SUCC 25MG EXT REL TAB PO SCH ×2 (08:38→08:39)
[2018-11-20] MEDS: LORATADINE 10 MG TAB PO SCH ×2 (08:38→08:39)
[2018-11-20] MEDS: MAGNESIUM OXIDE 400 MG TAB PO SCH ×2 (08:39→20:16)
[2018-11-20] MEDS: FUROSEMIDE 40 MG in SYRINGE 0 ML IV SCH ×2 (08:40→17:04)
[2018-11-20] MEDS: POTASSIUM CHLORIDE 10 MEQ TABCR PO SCH (08:41)
[2018-11-20] MEDS: INSULIN ASPART 100 UNITS/ML 3 ML PEN SC SCH ×4 (08:42→20:18)
[2018-11-20] MEDS: PANTOprazole 40 MG TAB PO SCH ×2 (10:05→20:16)
--- NOTE | 2018-11-20 15:21 | Hospitalist Progress Note ---
Date of Service November 20, 2018 Assessment & Plan (1) Anasarca: Anasarca leading to abdominal discomfort and shortness of breath. Likely due to CHF as her abdominal imaging (ultrasound on 11/18) did not show any significant liver cirrhosis or metastatic disease. Possibly also due to hypoalbuminemia. - Continue Lasix 40mg IV BID (initially oral; switched on 11/19 for inadequate diuresis) - Fluid restriction, Na restriction - Daily I&Os and daily weights - As of 11/20, swelling is improving, but still not resolved. Weights stable & I &Os are fairly even. (2) Acute exacerbation of CHF (congestive heart failure): Echo in 08/2018 showed EF 50-55% with moderate/severe mitral regurg. - Plan as above for anasarca (3) Elevated bilirubin: Unclear whether this is a destructive process vs. obstruction. On admission, Tbili to 7.3 and Dbili to 2.3. CT a/p on 11/16 was without contrast, but did not show hepatic masses or biliary obstruction. RUQ u/s on 11/18 showed small gallstones that were not causing obstruction. HIDA scan on 11/19 was normal and without any biliary pathology. - On 11/18, Tbili/Dbili were 3.5/2.0. - GI consult - Appreciate assistance (4) Colon cancer metastasized to multiple sites: S/p colectomy w/ ostomy in 10/18 & ostomy reversal in 11/18. Was initially on FOLFOX, but had reaction. Then completed CPT-11, 5-FU, leucovorin, and bevacizumab. Currently receiving salvage Avastin therapy, but last heme/onc note on 10/24/2018 indicates concern for progression with pulmonary nodules seen on CT chest on 09/25/2018. - Palliative care consult - Appreciate assistance - Remains full code - No inpatient oncology needs (5) Hypothyroidism: On admission in 08/2018, TSH was 18.5 with FT4 of 4.33. Home dose is 1, 200 mcg and was confirmed in [employer] with PCP specifically discussing dosing. However, on 09/11/2018, her TSH and FT4 were 54 and 1.08 respectively. - Continue home Synthroid 1,200 mcg PO daily (6) A-fib: On warfarin for anticoagulation, but INR was 1.7 on admission. - Continued metoprolol for rate-control - Continued warfarin (INR on 11/20 was 2.0.) - Monitor BP (7) Lung cancer: Status post left lower lobe wedge resection. - No current needs (8) Moderate protein malnutrition: Poor PO intake due to nausea and also likely due to cancer and chemotherapy. Low albumin. - Encourage good PO intake (9) DVT prophylaxis: Warfarin for her afib Subjective 53yo F w/ hx of hypothyroidism, metastatic cancer who presents with shortness of breath and lab abnormalities. This morning, she is significantly more alert and awake. Still reports some fatigue and the sensation that her abdomen and legs are swollen but otherwise reports no fevers/chills, chest pain, abdominal pain, nausea, or vomiting. Physical Exam 2 Vital Signs (Past 24 Hours): Last Vital Signs Temp 36.3 C L 11/20/18 11:34 Pulse 76 11/20/18 11:34 Resp 18 11/20/18 11:34 BP 105/72 11/20/18 11:34 Pulse Ox 100 11/20/18 11:34 Constitutional: WD/WN, vitals as above Eyes: EOM intact bilaterally; no conjunctival abnormality ENMT: external ear and nose normal, oropharynx normal Neck: trachea midline, no thyromegaly normal visual inspection Respiratory: normal respiratory effort, lungs clear to auscultation no respiratory distress Cardiovascular: Rate/Rhythm: regular rate and regular rhythm Heart Sounds: normal S1 and normal S2 Extremities: + edema (Improved from yesterday) Gastrointestinal (Abdomen): Inspection/Auscultation: abdomen normal to inspection; abdomen not distended Musculoskeletal: no cyanosis or clubbing, extremities motor strength 5/5 Skin: no rashes, warm and dry Neurologic: moves all extremities and awake Psychiatric: Orientation: alert, oriented to person and cooperative _ (1) Acute exacerbation of CHF (congestive heart failure) Heart failure type: unspecified Qualified Code(s): I50.9 - Heart failure, unspecified (2) Hypothyroidism Hypothyroidism type: unspecified Qualified Code(s): E03.9 - Hypothyroidism, unspecified (3) A-fib Atrial fibrillation type: chronic Qualified Code(s): I48.2 - Chronic atrial fibrillation (4) Lung cancer Laterality: unspecified laterality Lung location: unspecified part of lung Qualified Code(s): C34.90 - Malignant neoplasm of unspecified part of unspecified bronchus or lung
[2018-11-20] MEDS ORDERED: TRAZODONE HCL 50 MG TAB PO PRN (15:23)
[2018-11-20] MEDS: CARBOHYDRATES FOR HYPOGLYCEMIA PO PRN ×2 (16:11→16:33)
[2018-11-20] MEDS: INSULIN GLARGINE SOLOSTAR 100 UNITS/ML 3 ML PEN SC SCH (20:19)
[2018-11-21] MEDS: ALBUTEROL HFA 8 GM INHALER INH SCH ×3 (03:11→13:58)
[2018-11-21] MEDS: LEVOTHYROXINE SODIUM 200 MCG TABLET PO SCH (05:12)
[2018-11-21 05:46] LABS: Hematocrit (blood only) 37.1 % (37-47); Hemoglobin 11.7 g/dL (12.0-16.0); Mean Corpuscular Hgb Conc 31.5 g/dL (32-36); Mean Corpuscular Volume 83.4 fL (80-100); Mean Platelet Volume 9.9 fL (7.4-10.4); Platelet Count 227 K/uL (130-400); RDW Coefficient of Variation 21.2 % (11.5-14.5); RDW Standard Deviation 64.3 fL (36.4-46.3); Red Blood Count 4.45 M/uL (4.2-5.4); White Blood Count 5.99 K/uL (4.8-10.8)
[2018-11-21 05:55] LABS: INR 1.8 (0.9-1.1); Prothrombin Time 18.1 Seconds (9.0-12.0)
[2018-11-21 06:18] LABS: BUN Creatinine Ratio 19.5 (10-20); Calcium 8.4 mg/dl (8.5-10.1); Creatinine Clr Calc Pharmacy 71.2 ml/min; Est GFR (African American) 96.2; Magnesium 1.8 mg/dl (1.8-2.4); Potassium 3.7 mmol/L (3.5-5.1)
[2018-11-21] MEDS: INSULIN ASPART 100 UNITS/ML 3 ML PEN SC SCH ×4 (07:38→20:49)
[2018-11-21] MEDS: LORATADINE 10 MG TAB PO SCH (07:39)
[2018-11-21] MEDS: METOPROLOL SUCC 25MG EXT REL TAB PO SCH (07:39)
[2018-11-21] MEDS: MAGNESIUM OXIDE 400 MG TAB PO SCH ×2 (07:40→20:52)
[2018-11-21] MEDS: POTASSIUM CHLORIDE 10 MEQ TABCR PO SCH (07:40)
[2018-11-21] MEDS: PANTOprazole 40 MG TAB PO SCH ×2 (07:40→20:51)
[2018-11-21] MEDS: FUROSEMIDE 40 MG in SYRINGE 0 ML IV SCH ×2 (08:06→18:01)
--- NOTE | 2018-11-21 14:02 | Hospitalist Progress Note ---
Date of Service November 21, 2018 Assessment & Plan (1) Anasarca: Anasarca leading to abdominal discomfort and shortness of breath. Likely due to acute systolic CHF as her abdominal imaging (ultrasound on 11/18) did not show any significant liver cirrhosis or metastatic disease. Possibly also due to hypoalbuminemia. - Continue Lasix 40mg IV BID (initially oral; switched on 11/19 for inadequate diuresis) - Fluid restriction, Na restriction - Daily I&Os and daily weights - As of 11/21, swelling has improved significantly, but still not resolved. Weights dropped by 8 kg today, but likely due to different scales. I&Os are net negative. (2) Acute exacerbation of CHF (congestive heart failure): Echo in 08/2018 showed EF 50-55% with moderate/severe mitral regurg. - Plan as above for anasarca (3) Elevated bilirubin: Unclear whether this is a destructive process vs. obstruction. On admission, Tbili to 7.3 and Dbili to 2.3. CT a/p on 11/16 was without contrast, but did not show hepatic masses or biliary obstruction. RUQ u/s on 11/18 showed small gallstones that were not causing obstruction. HIDA scan on 11/19 was normal and without any biliary pathology. - On 11/18, Tbili/Dbili were 3.5/2.0. - GI consult - Appreciate assistance (4) Colon cancer metastasized to multiple sites: S/p colectomy w/ ostomy in 10/18 & ostomy reversal in 11/18. Was initially on FOLFOX, but had reaction. Then completed CPT-11, 5-FU, leucovorin, and bevacizumab. Currently receiving salvage Avastin therapy, but last heme/onc note on 10/24/2018 indicates concern for progression with pulmonary nodules seen on CT chest on 09/25/2018. - Palliative care consult - Appreciate assistance - Remains full code - Discussed with oncology on 11/21; no inpatient needs (5) Hypothyroidism: On admission in 08/2018, TSH was 18.5 with FT4 of 4.33. Home dose is 1, 200 mcg and was confirmed in [employer] with PCP specifically discussing dosing. However, on 09/11/2018, her TSH and FT4 were 54 and 1.08 respectively. - Continued home Synthroid 1,200 mcg PO daily (6) A-fib: On warfarin for anticoagulation, but INR was 1.7 on admission. - Continued metoprolol for rate-control - Continued warfarin (INR on 11/20 was 2.0.) - Monitor BP (7) Lung cancer: Status post left lower lobe wedge resection. - No current needs (8) Moderate protein malnutrition: Poor PO intake due to nausea and also likely due to cancer and chemotherapy. Low albumin. - Encourage good PO intake (9) DVT prophylaxis: Warfarin for her afib Subjective 53yo F w/ hx of hypothyroidism, metastatic cancer who presents with shortness of breath and lab abnormalities. This morning, she is doing well. Much more alert, breathing well, minimal abdominal pain or bloating, improved lower extremity edema. Reports no fevers/ chills, chest pain, shortness of breath, abdominal pain, nausea, or vomiting. Physical Exam 2 Vital Signs (Past 24 Hours): Last Vital Signs Temp 36.3 C L 11/21/18 11:43 Pulse 80 11/21/18 11:43 Resp 18 11/21/18 11:43 BP 112/75 11/21/18 11:43 Pulse Ox 99 11/21/18 11:43 Constitutional: WD/WN, vitals as above Eyes: EOM intact bilaterally; no conjunctival abnormality ENMT: external ear and nose normal, oropharynx normal Neck: trachea midline, no thyromegaly normal visual inspection Respiratory: normal respiratory effort, lungs clear to auscultation no respiratory distress Cardiovascular: Rate/Rhythm: regular rate and regular rhythm Heart Sounds: normal S1 and normal S2 Extremities: + edema (Improved from yesterday) Gastrointestinal (Abdomen): Inspection/Auscultation: abdomen normal to inspection; abdomen not distended Musculoskeletal: no cyanosis or clubbing, extremities motor strength 5/5 Skin: no rashes, warm and dry Neurologic: moves all extremities and awake Psychiatric: Orientation: alert, oriented to person and cooperative _ (1) Acute exacerbation of CHF (congestive heart failure) Heart failure type: unspecified Qualified Code(s): I50.9 - Heart failure, unspecified (2) Hypothyroidism Hypothyroidism type: unspecified Qualified Code(s): E03.9 - Hypothyroidism, unspecified (3) A-fib Atrial fibrillation type: chronic Qualified Code(s): I48.2 - Chronic atrial fibrillation (4) Lung cancer Laterality: unspecified laterality Lung location: unspecified part of lung Qualified Code(s): C34.90 - Malignant neoplasm of unspecified part of unspecified bronchus or lung
[2018-11-21] MEDS ORDERED: WARFARIN SOD 2.5 MG TAB PO ONE (16:00)
[2018-11-21] MEDS ORDERED: ALBUTEROL HFA 8 GM INHALER INH PRN (18:18)
[2018-11-21] MEDS ORDERED: INSULIN GLARGINE SOLOSTAR 100 UNITS/ML 3 ML PEN SC SCH (21:00)
[2018-11-22] MEDS: LEVOTHYROXINE SODIUM 200 MCG TABLET PO SCH (06:24)
[2018-11-22 06:32] LABS: Hematocrit (blood only) 37.5 % (37-47); Hemoglobin 11.8 g/dL (12.0-16.0); Mean Corpuscular Hgb Conc 31.5 g/dL (32-36); Mean Corpuscular Volume 83.1 fL (80-100); Mean Platelet Volume 9.6 fL (7.4-10.4); Platelet Count 239 K/uL (130-400); RDW Coefficient of Variation 21.2 % (11.5-14.5); RDW Standard Deviation 64.4 fL (36.4-46.3); Red Blood Count 4.51 M/uL (4.2-5.4); White Blood Count 6.46 K/uL (4.8-10.8)
[2018-11-22 06:51] LABS: INR 1.7 (0.9-1.1); Prothrombin Time 17.2 Seconds (9.0-12.0)
[2018-11-22 07:07] LABS: Albumin Level 2.4 gm/dl (3.4-5.0); BUN Creatinine Ratio 20.5 (10-20); Calcium 8.5 mg/dl (8.5-10.1); Creatinine Clr Calc Pharmacy 71.6 ml/min; Est GFR (African American) 99.2; Est GFR (Non-African American) 85.6; Magnesium 1.6 mg/dl (1.8-2.4); Potassium 3.6 mmol/L (3.5-5.1)
[2018-11-22 07:10] LABS: Albumin Globulin Ratio 0.6 (0.9-2); Bilirubin,Total 3.8 mg/dl (0.2-1); Globulin 3.8 gm/dl (2.5-4.0); Phosphorus 2.8 mg/dl (2.5-4.9); Total Protein 6.2 gm/dl (6.4-8.2)
[2018-11-22] MEDS: INSULIN ASPART 100 UNITS/ML 3 ML PEN SC SCH ×2 (08:25→12:16)
[2018-11-22] MEDS: POTASSIUM CHLORIDE 10 MEQ TABCR PO SCH (08:26)
[2018-11-22] MEDS: MAGNESIUM OXIDE 400 MG TAB PO SCH (08:26)
[2018-11-22] MEDS: PANTOprazole 40 MG TAB PO SCH (08:27)
[2018-11-22] MEDS: MAGNESIUM SULFATE / D5W 1 GM/100 ML BAG IV SCH ×2 (08:45→09:39)
[2018-11-22] MEDS: FUROSEMIDE 40 MG in SYRINGE 0 ML IV SCH (08:45)
--- NOTE | 2018-11-22 17:29 | Discharge Summary ---
Date of Service November 22, 2018 Admission HPI Per Admitting Provider 52 y/o F Hx AF, DM II, HTN, HLD, hypothyroidism, asthma, ANA - CPAP, obesity, depression, diastolic CHF, metastatic colon CA - colectomy w/ ostomy 10/18, ostomy reversal 11/18 currently receiving chemotherapy. The pt has been struggling with protein malnutrition, anasarca and abdominal discomfort. She has chronic exertional dyspnea as well. She has gained approximately 40 pounds over the past 4 weeks. She had an appointment scheduled with her primary MD this coming Sunday. Labs were drawn Sunday in preparation and she was instructed to attend the hospital a day later when they returned with multiple abnormalities. Initial labs in the ER confirm hypomagnesemia, hypophosphatemia , hyperglycemia, an elevated bilirubin which is new, and severe protein malnutrition. Troponin is also elevated but this appears to be chronic. A CT abdomen was obtained showing progression of body wall edema and small BL pleural effusions as acute findings. PMH: 1) Metastatic colon CA - lung mets 2) Diastolic CHF 3) Chronic anasarca 4) Obesity 5) Asthma 6) ANA - CPAP 7) Depression 8) Hypothyroidism 9) DM II 10) Chronic atrial fibrillation 11) HTN 12) HLD 13) Chronic dysphagia Surgical: Colectomy w/ ostomy 10/18, ostomy reversal 11/18 Social: Does not drink or smoke Family: DM II, CAD Principal Diagnosis Acute exacerbation of systolic CHF and low electrolytes Discharge Exam Constitutional WD/WN, vitals as above Eyes EOM intact bilaterally; no conjunctival abnormality ENMT external ear and nose normal, oropharynx normal Neck trachea midline, no thyromegaly normal visual inspection Respiratory normal respiratory effort, lungs clear to auscultation no respiratory distress Cardiovascular Rate/Rhythm: regular rate and regular rhythm Heart Sounds: normal S1 and normal S2 Extremities: + edema (Improved from yesterday) Gastrointestinal (Abdomen) Inspection/Auscultation: abdomen normal to inspection; abdomen not distended Musculoskeletal no cyanosis or clubbing, extremities motor strength 5/5 Skin no rashes, warm and dry Neurologic moves all extremities and awake Psychiatric Orientation: alert, oriented to person and cooperative Discharge Data Allergies Allergy/AdvReac Type Severity Reaction Status Date / Time daptomycin Allergy Severe SHORTNESS Verified 11/16/18 14:38 OF BREATH Iodinated Contrast- Oral and Allergy Severe Anaphylaxis Verified 11/16/18 14:38 IV Dye bee venom protein (honey bee) Allergy Intermediate HIVES Verified 11/16/18 14:38 clindamycin Allergy Intermediate HIVES Verified 11/16/18 14:38 Sulfa (Sulfonamide Allergy Intermediate BACTRIM-HIV Verified 11/16/18 14:38 Antibiotics) ES trimethoprim Allergy Intermediate HIVES Verified 11/16/18 14:38 vancomycin Allergy Intermediate RASH Verified 11/16/18 14:38 dulaglutide AdvReac Severe BRAND-TRULICITY, Verified 11/16/18 14:38 SEVERE GI UPSET, CONSTIPATION Consultations 11/16/18 15:58 ED Decision to Admit Stat 11/17/18 13:06 Consult Palliative Care Routine 11/17/18 13:13 Consult Case Management - Discharge Planning Routine 11/18/18 14:33 Consult Gastroenterology Routine Ordered Studies 11/16/18 14:15 CT abd pelvis wo con Stat 11/18/18 14:33 US abdomen limited Routine Hospital Course (1) Anasarca: Anasarca leading to abdominal discomfort and shortness of breath. Likely due to acute systolic CHF as her abdominal imaging (ultrasound on 11/18) did not show any significant liver cirrhosis or metastatic disease. Possibly also due to hypoalbuminemia. - Received Lasix 40mg IV BID - As of 11/22, swelling had resolved. Entry weight was 83 kg and by discharge, she was 70.9 kg. Her nausea also resolved, so some of the nausea may have been venous congestion. She was eating well by discharge. - Discharged on Lasix 40mg PO BID - Encourged to follow weights (2) Acute exacerbation of CHF (congestive heart failure): Echo in 08/2018 showed EF 50-55% with moderate/severe mitral regurg. - Plan as above for anasarca (3) Elevated bilirubin: Unclear whether this is a destructive process vs. obstruction. On admission, Tbili to 7.3 and Dbili to 2.3. CT a/p on 11/16 was without contrast, but did not show hepatic masses or biliary obstruction. RUQ u/s on 11/18 showed small gallstones that were not causing obstruction. HIDA scan on 11/19 was normal and without any biliary pathology. - On 11/22, Tbili was 3.8 - It had been stable the entire stay. Will need outpatient follow up. (4) Colon cancer metastasized to multiple sites: S/p colectomy w/ ostomy in 10/18 & ostomy reversal in 11/18. Was initially on FOLFOX, but had reaction. Then completed CPT-11, 5-FU, leucovorin, and bevacizumab. Currently receiving salvage Avastin therapy, but last heme/onc note on 10/24/2018 indicates concern for progression with pulmonary nodules seen on CT chest on 09/25/2018. - Palliative care consult - Appreciate assistance - Remains full code - Discussed with oncology on 11/21; no inpatient needs - Will see oncologist next week. (5) Hypothyroidism: On admission in 08/2018, TSH was 18.5 with FT4 of 4.33. Home dose is 1, 200 mcg and was confirmed in [employer]s with PCP specifically discussing dosing. However, on 09/11/2018, her TSH and FT4 were 54 and 1.08 respectively. - Continued home Synthroid 1,200 mcg PO daily (6) A-fib: On warfarin for anticoagulation, but INR was 1.7 on admission. - Continued metoprolol for rate-control - Continued warfarin (INR on 11/20 was 2.0.) - Discharged on stable meds (7) Lung cancer: Status post left lower lobe wedge resection. - No current needs (8) Moderate protein malnutrition: Poor PO intake due to nausea and also likely due to cancer and chemotherapy. Low albumin. - Encouraged good PO intake - Did well by discharge; eating entire meals and had a good appetite. (9) DVT prophylaxis: Warfarin for her afib Total Time Total Time Spent Total Time Spent (In Minutes): 45 Total Time Includes: Examination of the Patient, Discharge Planning, Medication Reconciliation and Communication With Other Providers Discharge Plan Discharge Items Patient Disposition: Home - Home Health Services Reason For Visit: ANASARCA,ELECTROLYTE ABNORMALITIES,ABD PAIN, Discharge Diagnosis: CHF exacerbation, low electrolytes Discharge Goals: Decrease discomfort, Improve function and Improve nutritional status Activity: Resume your previous activity Non-emergency contact: Primary Care Provider and Oncologist Call non-emergency contact if: you have any medication questions, your pain is not controlled and your temperature is above 100.5 Follow-up/Referrals: Bert Quintana DO [Physician] - 11/28/18 11:30 am (Please, follow up with Dr. Quintana on Thursday February 28th at 11:30 am. *If you need to change this appointment, call the office at [phone].) Madison Vivar MD [Primary Care Provider] - (Please see Dr. Vivar in 1-2 weeks for follow up of your weight and swelling.) Diet: Heart Healthy and Low Sodium (2gm) Addtl Provider Instructions: Ms. Bernard, You were admitted to the hospital for swelling of your abdomen and legs and low electrolytes. During the hospitalization, we gave you Lasix (furosemide) through the IV to help get you to get rid e of some of the fluid. This worked, and your weight went from 184 lbs to 160 lbs. We think that ~160 lbs is where your weight should stay to prevent gaining any further fluid weight. Please see your doctors to try to consistently measure this weight and try to keep from gaining more. We are starting you on oral Lasix (furosemide) to help keep the weight off. Please take it every day to help keep your weight steady. Please weigh yourself every day to see if you are gaining weight, and if so, please call your doctors. You also were low in electrolytes while you were here, and we gave you some. By discharge, your electrolytes were fairly stable. Please continue taking the magnesium supplement as this was the electrolyte that needed the most replacement. Please follow up with oncology next week at the listed appointment time. It is important to follow up with them to check your counts and make sure you are getting continued cancer care. Prescriptions: Continue diphenhydramine HCl [Allergy Relief(diphenhydramin)] 25 mg capsule 50 mg PO Q6 PRN (Reason: NEEDED) RF: 0 hydrocortisone [Proctosol HC] 2.5 % cream with perineal applicator 1 appln TX HS PRN (Reason: hemorrhoids) Qty: 30 RF: 0 calcium carbonate-mag hydroxid [Rolaids] 550-110 mg Tablet,Chewable PO Q6H PRN (Reason: STOMACH BURNING) RF: 0 ranitidine HCl [Zantac] 150 mg Tablet 150 mg PO BID RF: 0 metoprolol succinate 25 mg Tablet Extended Release 24 Hr 25 mg PO DAILY RF: 0 esomeprazole magnesium [Nexium] 20 mg Capsule,Delayed Release(Dr/Ec) 20 mg PO BID RF: 0 miconazole nitrate [Desenex] 2 % Powder 1 applic EXT BID Qty: 1 RF: 0 lactulose 20 gram/30 mL Solution 30 ml PO BID PRN (Reason: Constipation) Qty: 30 RF: 0 magnesium oxide 400 mg (241.3 mg magnesium) Tablet 400 mg PO DAILY RF: 0 levothyroxine [Levoxyl] 200 mcg Tablet 1,200 mcg PO QAM RF: 0 albuterol sulfate [Ventolin HFA] 90 mcg/actuation Hfa Aerosol Inhaler 2 puff INHALATION Q6H RF: 0 loratadine 10 mg Tablet 10 mg PO DAILY RF: 0 insulin aspart U-100 [Novolog PenFill U-100 Insulin] 100 unit/mL Cartridge 1 sliding scale dose SUBCUT TID RF: 0 ferrous gluconate 324 mg (37.5 mg iron) Tablet 324 mg PO QAM RF: 0 fluticasone-vilanterol [Breo Ellipta] 100-25 mcg/dose Blister With Device 1 inh INHALATION DAILY RF: 0 warfarin 5 mg tablet 2.5 mg PO 2XWK RF: 0 insulin degludec [Tresiba FlexTouch U-100] 100 unit/mL (3 mL) insulin pen 30 unit subcut HS RF: 0 potassium chloride 10 mEq capsule, extended release 20 meq PO QAM RF: 0 Changed furosemide 20 mg Tablet 40 mg PO BID Qty: 120 RF: 0 Stand-Alone Forms: Count Includes [facility] Discharge Orders: Discharge Order (Routine); Ordered 11/22/18 Ordered By: Norman Weems Admission Data Admit Date/Time: 11/16/18 17:13 Attending Provider: Norman Weems Admit Provider: Olman Mir Primary Care Provider: Madison Vivar Other Providers: Olman Mir ; Nazia Waite ; Woodrow Garcia Service: Telemetry Other Interventions: Discharge Summary Assessment (RN) Last Done: 11/22/18 12:38 DC Date/Time DO NOT enter until pt leaves facility: 11/22/18 14:08
== END 2018-11-22 14:08 | disposition home health service (06) | DRG 292 ==
LOC: ED 12:38 → SUATTDRO 17:13 → 2S 17:13

== ENCOUNTER 2019-01-15 05:10 | Inpatient (IN) ==
[2019-01-15 05:55] LABS: Basophils # (auto) 0.02 K/uL (0-0.2); Basophils % (auto) 0.3 %; Eosinophils # (auto) 0.09 K/uL (0-0.5); Eosinophils % (auto) 1.2 %; Hematocrit (blood only) 42.1 % (37-47); Hemoglobin 13.8 g/dL (12.0-16.0); Immature Granulocytes # (auto) 0.02 K/uL (0.00-0.02); Immature Granulocytes % (auto) 0.3 %; Lymphocytes # (auto) 1.17 K/uL (1.2-3.4); Lymphocytes % (auto) 15.3 %; Mean Corpuscular Hgb Conc 32.8 g/dL (32-36); Mean Corpuscular Volume 85.6 fL (80-100); Mean Platelet Volume 10.1 fL (7.4-10.4); Monocytes # (auto) 0.81 K/uL (0.11-0.59); Monocytes % (auto) 10.6 %; Neutrophils # (auto) 5.55 K/uL (1.4-6.5); Neutrophils % (auto) 72.3 %; Platelet Count 169 K/uL (130-400); RDW Coefficient of Variation 19.2 % (11.5-14.5); RDW Standard Deviation 60.2 fL (36.4-46.3); Red Blood Count 4.92 M/uL (4.2-5.4); White Blood Count 7.66 K/uL (4.8-10.8)
[2019-01-15 06:19] LABS: Albumin Globulin Ratio 0.6 (0.9-2); Albumin Level 2.6 gm/dl (3.4-5.0); BUN Creatinine Ratio 10.7 (10-20); Bilirubin,Total 3.5 mg/dl (0.2-1); Calcium 9.4 mg/dl (8.5-10.1); Creatinine Clr Calc Pharmacy 50.7 ml/min; Est GFR (Non-African American) 55.3; Globulin 4.1 gm/dl (2.5-4.0); Potassium 3.4 mmol/L (3.5-5.1); Total Protein 6.7 gm/dl (6.4-8.2)
[2019-01-15 06:34] LABS: Beta-Hydroxybutyrate 2.98 mg/dl (0.2-2.81)
[2019-01-15] MEDS ORDERED: NovoLIN-R INSULIN PER UNIT CHARGE IV STA (06:46)
--- NOTE | 2019-01-15 06:47 | XRay Report ---
XR pelvis 1-2V routine CLINICAL HISTORY: Fall, Left leg pain COMPARISON: PET/CT December 23, 2018. FINDINGS: Bowel anastomosis is noted. Sacroiliac joints and symphysis pubis are intact. No acute fra cture is identified within the pelvis or hips. IMPRESSION: No acute fracture within the pelvis or hips. Electronically signed by: Humberto Montanez M.D. 01/15/2019 6:46 AM
--- NOTE | 2019-01-15 06:49 | XRay Report ---
XR femur LT 2V routine CLINICAL HISTORY: Fall, Left leg pain COMPARISON: Left femur radiographs August 05, 2016. FINDINGS: Alignment of the left hip is anatomic. No proximal left femoral fracture. Note is made of an acute oblique moderately displaced fracture through the distal metadiaphysis of the left femur nel t extends to the femoral component of the left knee arthroplasty. Fracture is displaced 2.2 cm. IMPRESSION: Acute oblique moderately displaced distal left femoral periprosthetic fracture. Electronically signed by: Humberto Montanez M.D. 01/15/2019 6:48 AM
--- NOTE | 2019-01-15 06:52 | XRay Report ---
XR tibia fibula LT 2V CLINICAL HISTORY: Fall, Left leg pain COMPARISON: Left knee radiographs February 06, 2016. FINDINGS: Nonunited patellar fracture is noted. The periprosthetic distal left femoral fracture is b bang depicted on the left femur radiographs. There is no acute fracture of the left tibia or fibula. IMPRESSION: 1. No acute fracture of the left tibia or fibula. 2. Acute periprosthetic distal left femoral fracture better depicted on the left femur radiographs. 3. Old nonunited patellar fracture. Electronically signed by: Humberto Montanez M.D. 01/15/2019 6:50 AM
--- NOTE | 2019-01-15 06:53 | XRay Report ---
XR chest 1V not portable CLINICAL HISTORY: Preoperative evaluation. COMPARISON STUDY: Chest radiograph January 14, 2019 18. PET/CT December 23, 2018. FINDINGS: Left subclavian [id number] is in place. There is no pneumothorax or pleural effusion. Li near left basilar opacity suggest atelectasis. Multiple small pulmonary nodules are better depicted o n the PET/CT of December 23, 2018 due to technique. There is no evidence for pulmonary edema. IMPRESSION: 1. No acute cardiopulmonary findings. 2. Multiple pulmonary nodules which are better depicted on the PET/CT of December 23, 2018. 3. Cardiomegaly. Electronically signed by: Humberto Montanez M.D. 01/15/2019 6:52 AM
[2019-01-15] MEDS ORDERED: fentaNYL citrate 100 MCG/2 ML VIAL IV STA (07:03)
[2019-01-15 07:12] LABS: INR 3.4 (0.9-1.1); Partial Thromboplastin Ratio 1.2; Partial Thromboplastin Time 33.8 Seconds (21.0-31.0); Prothrombin Time 32.2 Seconds (9.0-12.0)
[2019-01-15] MEDS ORDERED: SODIUM CHLORIDE 0.9% 1000ML 500 ML IV ONE (07:12)
[2019-01-15] MEDS ORDERED: PHYTONADIONE 2.5 MG in SODIUM CHLORIDE 0.9% 50 ML IV ONE (07:23)
[2019-01-15 07:56] LABS: Appearance Urine Clear (Clear); Bilirubin Urine Negative (Negative); Blood Urine Negative (Negative); Color Urine Yellow; Glucose Urine UA 3+ (Negative); Ketones Urine Negative (Negative); Leukocyte Esterase Urine Negative (Negative); Nitrite Urine Negative (Negative); Protein Urine Negative (Negative); Urobilinogen Urine Negative (Negative); pH Urine 6.5 (4.5-7.5)
--- NOTE | 2019-01-15 08:43 | History & Physical Report ---
Date of Service January 15, 2019 Assessment & Plan (1) Femur fracture, left: Patient present with a distal left femur fracture due to mechanical fall. - Orthopedics consulted. Plan for surgery tomorrow. - Pain control as needed - Left lower extremity immobilized in splint in ED - Elevate Leg, non-weight bearing, Fall precautions - NPO after midnight - Santosh Rosa Maria-operative MACE risk is 0.5% (independent, ASA 3). By AHA/ACC Pre-op Guidelines, no further testing required. From an internal medicine standpoint, she is optimized for surgery. (2) Diabetes mellitus, type II: Hyperglycemic on arrival blood sugar > 500. A1c was 11.0% in 11/2018, indicating poor control. - Basal insulin and sliding scale per glycemic pharmacist (3) A-fib: Afib on arrival, asymptomatic. Anticoagulated on warfarin at home. - INR 3.4 on arrival, vitamin K 2.5mg administered. - Will hold warfarin at this time - Check daily INR's - Rate-controlled at present - Continue metoprolol & digoxin (4) Systolic CHF: Not in exacerbation, does not appear volume overloaded. Likely mildly hypovolemic from her hyperglycemia; however, baseline weight from 11/2018 was 70 kg and she is 73 kg on admission. Echo from 11/18/18 showed reduced EF 35-40%. - Hold fluids & diuretics at this time - Restart Lasix after surgery & once sugars are controlled. (5) Colon carcinoma metastatic to multiple sites: S/p colectomy w/ ostomy in 10/18 & ostomy reversal in 11/18. Previously on FOLFOX, but had reaction. Then completed CPT-11, 5-FU, leucovorin, and b evacizumab. S/p Avastin therapy. - Likely metastatic disease in lungs, though I do not feel this will affect her ventilation during surgery. - Outpatient f/u with oncology (6) Hypothyroidism: - Continue Synthroid (7) Hypertension: BP presently 150/100. - Continue home metoprolol & sprinolactone - Lasix held prior to surgery; patient is likely mildly hypovolemic from her uncontrolled sugars (8) ANA (obstructive sleep apnea): - Cpap ordered (9) Asthma: No wheezing or shortness of breath. - Continue home inhalers (10) GERD (gastroesophageal reflux disease): - Continue ranitidine, omeprazole (11) DVT prophylaxis: SCDs, TEDS ordered - INR as above History of Present Illness Chief Complaint: Left Femur fracture Primary Care Provider: Madison Vivar MD 52 yo F with h/o Afib DM II, HTN, HLD, Hypothyroidism, Asthma, ANA, CPAP, obesity, depression, diastolic CHF, metastatic colon CA - colectomy w/ ostomy 10/18, ostomy reversal 11/18 s/p chemotherapy. Patient presents today with history of mechanical fall. Patient got up in middle of night to urinate, and in the process of getting out of the bed, lost her balance when and fell sideways injuring her left leg in the process. She denies head injury or LOC. She was found on the floor by her and ambulance, was called. Patient reports 8/10 pain subsequently. She was unable to bear weight. She denies any preceding dizziness or lightheadedness prior to fall. Patient has a previous total knee replacement in the left leg as well. She reports previous fall/fracture in same leg 2 years ago. She received Fentanyl in ED. Dr. Vaughan (Orthopedic) was consulted and recommended knee immobilization. CBC unremarkable INR was 3.4 in arrival . patient was mildly hyponatremic at 132, K 3.4 . Patient was hyperglycemic at 554. Alk phos 234 from baseline of 150;s to 210's, bilirubin 3.5 within baseline range. Xray showed Acute oblique moderately displaced, distal left femoral periprosthetic fracture. Xray of tibia/fibula and plevis were negative for fracture. An old patellar fracture was also noted. Currently she reports 4/10 pain currently.She denies chest pain, sob, palpitation numbness tingling. At baseline, She ambulates without assistance. She lives with her . Patient was recently admitted 11/22/18 for anasarca, CHF exacerbation and was effectively diuresed during admission. Allergies Allergy/AdvReac Type Severity Reaction Status Date / Time daptomycin Allergy Severe SHORTNESS Verified 01/15/19 06:43 OF BREATH Iodinated Contrast- Oral and Allergy Severe Anaphylaxis Verified 01/15/19 06:43 IV Dye bee venom protein (honey bee) Allergy Intermediate HIVES Verified 01/15/19 06:43 clindamycin Allergy Intermediate HIVES Verified 01/15/19 06:43 Sulfa (Sulfonamide Allergy Intermediate BACTRIM-HIV Verified 01/15/19 06:43 Antibiotics) ES trimethoprim Allergy Intermediate HIVES Verified 01/15/19 06:43 vancomycin Allergy Intermediate RASH Verified 01/15/19 06:43 dulaglutide AdvReac Severe BRAND-TRULICITY, Verified 01/15/19 06:43 SEVERE GI UPSET, CONSTIPATION Home Medications Home Medications Medication Instructions Recorded Confirmed Type Breo Ellipta 1 inh INHALATION DAILY MDD 1 dose 06/11/18 01/15/19 History in 24 hours Novolog PenFill U-100 Insulin 1 sliding scale dose SUBCUT TID 06/11/18 01/15/19 History albuterol sulfate [Ventolin HFA] 2 - 4 puff INHALATION Q6H PRN 06/11/18 01/15/19 History levothyroxine [Levoxyl] 1,200 mcg PO QAM 06/11/18 01/15/19 History loratadine 10 mg PO DAILY 06/11/18 01/15/19 History magnesium oxide 400 mg PO DAILY 06/11/18 01/15/19 History hydrocortisone [Proctosol HC] 1 appln MD HS PRN #30 gm 07/31/18 01/15/19 Rx metoprolol succinate 25 mg PO DAILY 09/25/18 01/15/19 History ranitidine HCl [Zantac] 150 mg PO BID 09/25/18 01/15/19 History potassium chloride 20 meq PO QAM 11/16/18 01/15/19 History digoxin 125 mcg tablet 0.125 mg PO DAILY 11/28/18 01/15/19 History warfarin 5 mg tablet 5 mg PO QPM 12/12/18 01/15/19 History acetaminophen 500 mg PO Q4 PRN 01/15/19 01/15/19 History calcium carbonate-mag hydroxid 2 tab PO Q6H PRN 01/15/19 01/15/19 History [Rolaids] furosemide 40 mg PO BID 01/15/19 01/15/19 History insulin glargine [Lantus Solostar 30 unit SUBCUT DAILY 01/15/19 01/15/19 History U-100 Insulin] omeprazole 40 mg PO DAILY 01/15/19 01/15/19 History psyllium husk [Fiber-Caps 0.52 g PO DAILY 01/15/19 01/15/19 History (psyllium husk)] spironolactone 12.5 mg PO DAILY 01/15/19 01/15/19 History sucralfate 1 g PO ACHS 01/15/19 01/15/19 History trazodone 50 mg PO HS PRN 01/15/19 01/15/19 History Past Med/Surg History Medical History Demand ischemia Hypomagnesemia DVT prophylaxis Medical non-compliance Acute exacerbation of CHF (congestive heart failure) (Acute) Hypothyroidism (Acute) 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 difficile colitis DM II (diabetes mellitus, type II), controlled H/O: lung cancer Left s/p L VATS HTN (hypertension) Hypothyroid Metastatic colon cancer in female lung mets Morbid obesity ANA (obstructive sleep apnea) Surgical History H/O carpal tunnel repair H/O total hysterectomy History of colostomy reversal S/P T&A (status post tonsillectomy and adenoidectomy) S/P colectomy S/P debridement Abdomen S/P total knee arthroplasty Bilateral Family History Other Coronary heart disease DM II (diabetes mellitus, type II), controlled Social History Preferred Language: Tunisian Communication Ability: Effective Carriage Rider Required: No Beliefs That Will Affect Care: None Current Living Situation: Spouse current occupational status: unemployed and disabled Other Information That Helps Us Care for You: No Feels Safe at Home: Yes Safety Concerns: Feels Safe At This Time Smoking Status: Never smoker Do You Dip or Chew Tobacco: No Second Hand Exposure: No Tobacco Cessation Education Requested by Patient: No Hx Alcohol Use: No Hx Substance Use: No Review of Systems Review of Systems: All systems reviewed & are unremarkable except as noted in HPI & below Physical Exam Vital Signs (Past 24 Hours): Last Vital Signs Temp 36.5 C 01/15/19 05:14 Pulse 75 01/15/19 07:47 Resp 18 01/15/19 07:47 BP 112/53 L 01/15/19 07:47 Pulse Ox 99 01/15/19 07:47 Constitutional: WD/WN, vitals as above + obese; no acute distress Eyes: PERRL and EOM intact bilaterally ENMT: external ear and nose normal, oropharynx normal Neck: trachea midline, no thyromegaly Respiratory: normal respiratory effort; no respiratory distress and no cough Auscultation: no diminished lung sounds and no wheezes Cardiovascular: irregularly irregular rhythm, normal rate Gastrointestinal (Abdomen): normal bowel sounds, soft, nontender, no hepatosplenomegaly Musculoskeletal: Left leg ( s/p distal) femur fracture, currently splinted, wrapped in ARSLAN bandage Skin: no rashes, warm and dry Neurologic: PERRL, EOMI, accommodation nl, no face palsy, no dysarthria CN's II-XI intact bilaterally (grossly), moves all extremities and awake Psychiatric: Orientation: alert and oriented x 3 Results & Data Laboratory Results Laboratory Results WBC 7.66 K/uL (4.8-10.8) 01/15/19 05:22 RBC 4.92 M/uL (4.2-5.4) 01/15/19 05:22 Hgb 13.8 g/dL (12.0-16.0) 01/15/19 05:22 Hct 42.1 % (37-47) 01/15/19 05:22 MCV 85.6 fL (80-100) 01/15/19 05:22 MCH 28.0 pg (25-34) 01/15/19 05:22 MCHC 32.8 g/dL (32-36) 01/15/19 05:22 RDW Std Deviation 60.2 fL (36.4-46.3) H 01/15/19 05:22 RDW Coeff of Stanley 19.2 % (11.5-14.5) H 01/15/19 05:22 Plt Count 169 K/uL (130-400) 01/15/19 05:22 MPV 10.1 fL (7.4-10.4) 01/15/19 05:22 Immature Gran % (Auto) 0.3 % 01/15/19 05:22 Neut % (Auto) 72.3 % 01/15/19 05:22 Lymph % (Auto) 15.3 % 01/15/19 05:22 [place] % (Auto) 10.6 % 01/15/19 05:22 Eos % (Auto) 1.2 % 01/15/19 05:22 Baso % (Auto) 0.3 % 01/15/19 05:22 Immature Gran # (Auto) 0.02 K/uL (0.00-0.02) 01/15/19 05:22 Neut # (Auto) 5.55 K/uL (1.4-6.5) 01/15/19 05:22 Lymph # (Auto) 1.17 K/uL (1.2-3.4) L 01/15/19 05:22 [place] # (Auto) 0.81 K/uL (0.11-0.59) H 01/15/19 05:22 Eos # (Auto) 0.09 K/uL (0-0.5) 01/15/19 05:22 Baso # (Auto) 0.02 K/uL (0-0.2) 01/15/19 05:22 PT 32.2 Seconds (9.0-12.0) H 01/15/19 06:52 INR 3.4 (0.9-1.1) H 01/15/19 06:52 APTT 33.8 Seconds (21.0-31.0) H 01/15/19 06:52 PTT Ratio 1.2 01/15/19 06:52 Sodium 132 mmol/L (136-145) L 01/15/19 05:22 Potassium 3.4 mmol/L (3.5-5.1) L 01/15/19 05:22 Chloride 90 mmol/L (98-107) L 01/15/19 05:22 Carbon Dioxide 36 mmol/L (21-32) H 01/15/19 05:22 Anion Gap 6.0 (3-11) 01/15/19 05:22 BUN 12 mg/dl (7-18) 01/15/19 05:22 Creatinine 1.12 mg/dl (0.6-1.2) 01/15/19 05:22 Est Cr Clr Drug Dosing 50.7 ml/min 01/15/19 05:22 Est GFR ( Amer) 64.0 01/15/19 05:22 Est GFR (Non-Af Amer) 55.3 01/15/19 05:22 BUN/Creatinine Ratio 10.7 (10-20) 01/15/19 05:22 Glucose 554 mg/dl (70-99) H* 01/15/19 05:22 Calcium 9.4 mg/dl (8.5-10.1) 01/15/19 05:22 Total Bilirubin 3.5 mg/dl (0.2-1) H 01/15/19 05:22 AST 23 U/L (15-37) 01/15/19 05:22 ALT 18 U/L (12-78) 01/15/19 05:22 Alkaline Phosphatase 234 U/L (45-117) H 01/15/19 05:22 Total Protein 6.7 gm/dl (6.4-8.2) 01/15/19 05:22 Albumin 2.6 gm/dl (3.4-5.0) L 01/15/19 05:22 Globulin 4.1 gm/dl (2.5-4.0) H 01/15/19 05:22 Albumin/Globulin Ratio 0.6 (0.9-2) L 01/15/19 05:22 Beta-Hydroxybutyric Acd 2.98 mg/dl (0.2-2.81) H 01/15/19 05:22 Urine Color Yellow 01/15/19 07:40 Urine Appearance Clear (Clear) 01/15/19 07:40 Urine pH 6.5 (4.5-7.5) 01/15/19 07:40 Ur Specific [place] 1.030 (1.000-1.030) 01/15/19 07:40 Urine Protein Negative (Negative) 01/15/19 07:40 Urine Glucose (UA) 3+ (Negative) H 01/15/19 07:40 Urine Ketones Negative (Negative) 01/15/19 07:40 Urine Blood Negative (Negative) 01/15/19 07:40 Urine Nitrite Negative (Negative) 01/15/19 07:40 Urine Bilirubin Negative (Negative) 01/15/19 07:40 Urine Urobilinogen Negative (Negative) 01/15/19 07:40 Ur Leukocyte Esterase Negative (Negative) 01/15/19 07:40 Diagnostic Findings XR femur LT 2V routine CLINICAL HISTORY: Fall, Left leg pain COMPARISON: Left femur radiographs August 05, 2016. FINDINGS: Alignment of the left hip is anatomic. No proximal left femoral fracture. Note is made of an acute oblique moderately displaced fracture through the distal metadiaphysis of the left femur that extends to the femoral component of the left knee arthroplasty. Fracture is displaced 2.2 cm. IMPRESSION: Acute oblique moderately displaced distal left femoral periprosthetic fracture. Electronically signed by: Humberto Montanez M.D. 01/15/2019 6:48 AM Dictated: 01/15/1946 Transcribed: 01/15/1946 XR pelvis 1-2V routine CLINICAL HISTORY: Fall, Left leg pain COMPARISON: PET/CT December 23, 2018. FINDINGS: Bowel anastomosis is noted. Sacroiliac joints and symphysis pubis are intact. No acute fracture is identified within the pelvis or hips. IMPRESSION: No acute fracture within the pelvis or hips. Electronically signed by: Humberto Montanez M.D. 01/15/2019 6:46 AM Dictated: 01/15/19 0644 Transcribed: 01/15/1946 XR tibia fibula LT 2V CLINICAL HISTORY: Fall, Left leg pain COMPARISON: Left knee radiographs February 06, 2016. FINDINGS: Nonunited patellar fracture is noted. The periprosthetic distal left femoral fracture is better depicted on the left femur radiographs. There is no a cute fracture of the left tibia or fibula. IMPRESSION: 1. No acute fracture of the left tibia or fibula. 2. Acute periprosthetic distal left femoral fracture better depicted on the left femur radiographs. 3. Old nonunited patellar fracture. Electronically signed by: Humberto Montanez M.D. 01/15/2019 6:50 AM Dictated: 01/15/19 0649 Transcribed: 01/15/19 0649 Medications Administered Discontinued Medications Fentanyl Citrate (Fentanyl Citrate) 50 mcg IV NOW STA Stop: 01/15/19 07:04 Last Admin: 01/15/19 07:09 Dose: 50 mcg Documented by: [id number] Sodium Chloride (Nss 1000ml) 500 mls @ 999 mls/hr IV .Q31M ONE Stop: 01/15/19 07:42 Last Infusion: 01/15/19 08:57 Dose: 0 mls/hr Documented by: [id number] Admin: 01/15/19 07:45 Dose: 999 mls/hr Documented by: [id number] Phytonadione 2.5 mg/ Sodium (Chloride) 50.25 mls @ 100.5 mls/hr IV ONE ONE Stop: 01/15/19 07:52 Last Infusion: 01/15/19 08:57 Dose: 0 mls/hr Documented by: [id number] Admin: 01/15/19 07:43 Dose: 100.5 mls/hr Documented by: [id number] Insulin Human Regular (Novolin R U-100 Per Unit) 10 units IV NOW STA Stop: 01/15/19 06:47 Last Admin: 01/15/19 06:51 Dose: 10 units Documented by: [id number] Cosigned by: [id number] Code Status & VTE Plan Code Status Full Resuscitation VTE Prophylaxis Plan VTE Prophylaxis will be ordered: Yes Reason for no VTE drug order: Treatment not indicated (already on warfarin, INR 3.4 on arrival) (1) A-fib Atrial fibrillation type: chronic Qualified Code(s): I48.2 - Chronic atrial fibrillation (2) Hypothyroidism Hypothyroidism type: unspecified Qualified Code(s): E03.9 - Hypothyroidism, unspecified (3) GERD (gastroesophageal reflux disease) Esophagitis presence: without esophagitis Qualified Code(s): K21.9 - Gastro- esophageal reflux disease without esophagitis (4) Asthma Asthma complication type: uncomplicated Asthma persistence: intermittent Asthma severity: unspecified severity Qualified Code(s): J45.20 - Mild intermittent asthma, uncomplicated
--- NOTE | 2019-01-15 08:50 | Emergency Department Note ---
History of Present Illness General Chief Complaint: Fall Time Seen by Provider: 01/15/19 05:23 History of Present Illness This is a 53-year-old female that presents to the emergency department with a complex past medical history via ambulance with complaints of "fall". The patient notes that she was ambulating to the bathroom when she lost her balance and then fell backwards injuring her left leg. She notes pain just above the left knee. She notes a history of replacement performed in the past by Dr. Delmis guerrero. It was reported that she received 75 mcg of IM fentanyl and 4 mg of p.o. Zofran in route. She notes that now she has a numbness sensation in the left knee. She rates her overall pain in that region as severe in an 05/10. She denies any chest pain or shortness of breath. She does note that she did not strike her head but does note that she landed on her back. She notes no pain in the head, neck, chest, abdomen or pelvis. She has just pain in the left leg just above the left knee. Home Medications Home Medications Medication Instructions Recorded Confirmed Type Breo Ellipta 1 inh INHALATION DAILY MDD 1 dose 06/11/18 01/15/19 History in 24 hours Novolog PenFill U-100 Insulin 1 sliding scale dose SUBCUT TID 06/11/18 01/15/19 History albuterol sulfate [Ventolin HFA] 2 - 4 puff INHALATION Q6H PRN 06/11/18 01/15/19 History levothyroxine [Levoxyl] 1,200 mcg PO QAM 06/11/18 01/15/19 History loratadine 10 mg PO DAILY 06/11/18 01/15/19 History magnesium oxide 400 mg PO DAILY 06/11/18 01/15/19 History hydrocortisone [Proctosol HC] 1 appln MO HS PRN #30 gm 07/31/18 01/15/19 Rx metoprolol succinate 25 mg PO DAILY 09/25/18 01/15/19 History ranitidine HCl [Zantac] 150 mg PO BID 09/25/18 01/15/19 History potassium chloride 20 meq PO QAM 11/16/18 01/15/19 History digoxin 125 mcg tablet 0.125 mg PO DAILY 11/28/18 01/15/19 History warfarin 5 mg tablet 5 mg PO QPM 12/12/18 01/15/19 History acetaminophen 500 mg PO Q4 PRN 01/15/19 01/15/19 History calcium carbonate-mag hydroxid 2 tab PO Q6H PRN 01/15/19 01/15/19 History [Rolaids] furosemide 40 mg PO BID 01/15/19 01/15/19 History insulin glargine [Lantus Solostar 30 unit SUBCUT DAILY 01/15/19 01/15/19 History U-100 Insulin] omeprazole 40 mg PO DAILY 01/15/19 01/15/19 History psyllium husk [Fiber-Caps 0.52 g PO DAILY 01/15/19 01/15/19 History (psyllium husk)] spironolactone 12.5 mg PO DAILY 01/15/19 01/15/19 History sucralfate 1 g PO ACHS 01/15/19 01/15/19 History trazodone 50 mg PO HS PRN 01/15/19 01/15/19 History Allergies Allergy/AdvReac Type Severity Reaction Status Date / Time daptomycin Allergy Severe SHORTNESS Verified 01/15/19 06:43 OF BREATH Iodinated Contrast- Oral and Allergy Severe Anaphylaxis Verified 01/15/19 06:43 IV Dye bee venom protein (honey bee) Allergy Intermediate HIVES Verified 01/15/19 06:43 clindamycin Allergy Intermediate HIVES Verified 01/15/19 06:43 Sulfa (Sulfonamide Allergy Intermediate BACTRIM-HIV Verified 01/15/19 06:43 Antibiotics) ES trimethoprim Allergy Intermediate HIVES Verified 01/15/19 06:43 vancomycin Allergy Intermediate RASH Verified 01/15/19 06:43 dulaglutide AdvReac Severe BRAND-TRULICITY, Verified 01/15/19 06:43 SEVERE GI UPSET, CONSTIPATION Past Med/Surg History Medical History Demand ischemia Hypomagnesemia DVT prophylaxis Medical non-compliance Acute exacerbation of CHF (congestive heart failure) (Acute) 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 difficile colitis DM II (diabetes mellitus, type II), controlled H/O: lung cancer Left s/p L VATS HTN (hypertension) Hypothyroid Metastatic colon cancer in female lung mets Morbid obesity ANA (obstructive sleep apnea) Surgical History History of cardiac cath H/O carpal tunnel repair H/O total hysterectomy History of colostomy reversal S/P T&A (status post tonsillectomy and adenoidectomy) S/P colectomy S/P debridement Abdomen S/P total knee arthroplasty Bilateral Family History Other Coronary heart disease DM II (diabetes mellitus, type II), controlled Social History Preferred Language: [place] Communication Ability: Effective 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 Beliefs That Will Affect Care: None marital status: Current Living Situation: Spouse current occupational status: unemployed and disabled Other Information That Helps Us Care for You: No Feels Safe at Home: Yes Safety Concerns: Feels Safe At This Time Smoking Status: Never smoker Do You Dip or Chew Tobacco: No Second Hand Exposure: No Tobacco Cessation Education Requested by Patient: No Hx Alcohol Use: No Hx Substance Use: No Review of Systems A total of 10 systems reviewed and were otherwise negative Physical Exam Vital Signs Vital Signs - 24 hr 01/16/19 07:42 01/16/19 08:00 01/16/19 14:44 Temperature 36.8 C 37.1 C Temperature Source Oral Oral Pulse Rate Pulse Rate [Apical] Pulse Rate [Left Finger] 72 83 Pulse Rate from SpO2 Sensor Pulse Rhythm [Apical] Pulse Rhythm [Left Finger] Regular Pulse Strength [Apical] Pulse Strength [Left Finger] Normal Respiratory Rate 18 18 Respiratory Effort / Characteristics Non-Labored Spontaneous Non-Labored Spontaneous Respiratory Depth Normal Normal Respiratory Pattern Regular Blood Pressure Blood Pressure [Left Arm] Blood Pressure [Right Arm] 108/72 111/55 L Blood Pressure Mean Blood Pressure Mean [Left Arm] Blood Pressure Mean [Right Arm] 84 73 Blood Pressure Position [Left Arm] Blood Pressure Position [Right Arm] Lying Lying Pulse Oximetry 97 94 Oxygen Delivery Method BiPAP CPAP Room Air Oxygen Flow Rate 01/16/19 18:28 01/16/19 18:30 01/16/19 18:31 Temperature 36.3 C L Temperature Source Temporal Artery Scan Pulse Rate 94 H 116 H 91 H Pulse Rate [Apical] 90 Pulse Rate [Left Finger] Pulse Rate from SpO2 Sensor 105 H 94 H 81 Pulse Rhythm [Apical] Regular Pulse Rhythm [Left Finger] Pulse Strength [Apical] Pulse Strength [Left Finger] Respiratory Rate 19 26 H 21 Respiratory Effort / Characteristics Non-Labored Spontaneous Respiratory Depth Normal Respiratory Pattern Regular Blood Pressure 133/115 H 132/61 Blood Pressure [Left Arm] Blood Pressure [Right Arm] 132/61 Blood Pressure Mean 121 84 Blood Pressure Mean [Left Arm] Blood Pressure Mean [Right Arm] 84 Blood Pressure Position [Left Arm] Blood Pressure Position [Right Arm] Lying Pulse Oximetry 75 L 88 L 93 Oxygen Delivery Method Oxymask Oxygen Flow Rate 10 01/16/19 18:35 01/16/19 18:40 01/16/19 18:41 Temperature Temperature Source Pulse Rate 81 83 82 Pulse Rate [Apical] Pulse Rate [Left Finger] Pulse Rate from SpO2 Sensor 83 82 82 Pulse Rhythm [Apical] Pulse Rhythm [Left Finger] Pulse Strength [Apical] Pulse Strength [Left Finger] Respiratory Rate 17 21 19 Respiratory Effort / Characteristics Respiratory Depth Respiratory Pattern Blood Pressure 116/75 Blood Pressure [Left Arm] Blood Pressure [Right Arm] Blood Pressure Mean 88 Blood Pressure Mean [Left Arm] Blood Pressure Mean [Right Arm] Blood Pressure Position [Left Arm] Blood Pressure Position [Right Arm] Pulse Oximetry 100 98 98 Oxygen Delivery Method Oxygen Flow Rate 01/16/19 18:45 01/16/19 18:50 01/16/19 18:55 Temperature Temperature Source Pulse Rate 85 82 88 Pulse Rate [Apical] Pulse Rate [Left Finger] Pulse Rate from SpO2 Sensor 85 81 93 H Pulse Rhythm [Apical] Pulse Rhythm [Left Finger] Pulse Strength [Apical] Pulse Strength [Left Finger] Respiratory Rate 16 17 19 Respiratory Effort / Characteristics Respiratory Depth Respiratory Pattern Blood Pressure 113/75 112/75 Blood Pressure [Left Arm] Blood Pressure [Right Arm] Blood Pressure Mean 87 87 Blood Pressure Mean [Left Arm] Blood Pressure Mean [Right Arm] Blood Pressure Position [Left Arm] Blood Pressure Position [Right Arm] Pulse Oximetry 98 98 97 Oxygen Delivery Method Oxygen Flow Rate 01/16/19 18:57 01/16/19 19:00 01/16/19 19:01 Temperature 36.8 C Temperature Source Temporal Artery Scan Pulse Rate 87 83 82 Pulse Rate [Apical] 86 Pulse Rate [Left Finger] Pulse Rate from SpO2 Sensor 90 84 80 Pulse Rhythm [Apical] Irregular Pulse Rhythm [Left Finger] Pulse Strength [Apical] Pulse Strength [Left Finger] Respiratory Rate 19 18 16 Respiratory Effort / Characteristics Non-Labored Spontaneous Respiratory Depth Normal Respiratory Pattern Regular Blood Pressure 101/61 105/53 L Blood Pressure [Left Arm] Blood Pressure [Right Arm] 105/53 L Blood Pressure Mean 74 70 Blood Pressure Mean [Left Arm] Blood Pressure Mean [Right Arm] 70 Blood Pressure Position [Left Arm] Blood Pressure Position [Right Arm] Lying Pulse Oximetry 96 97 97 Oxygen Delivery Method Nasal Cannula Oxygen Flow Rate 2 01/16/19 19:05 01/16/19 19:10 01/16/19 19:15 Temperature Temperature Source Pulse Rate 87 86 89 Pulse Rate [Apical] Pulse Rate [Left Finger] Pulse Rate from SpO2 Sensor 86 85 86 Pulse Rhythm [Apical] Pulse Rhythm [Left Finger] Pulse Strength [Apical] Pulse Strength [Left Finger] Respiratory Rate 14 15 16 Respiratory Effort / Characteristics Respiratory Depth Respiratory Pattern Blood Pressure 105/58 L 108/67 112/59 L Blood Pressure [Left Arm] Blood Pressure [Right Arm] Blood Pressure Mean 73 80 76 Blood Pressure Mean [Left Arm] Blood Pressure Mean [Right Arm] Blood Pressure Position [Left Arm] Blood Pressure Position [Right Arm] Pulse Oximetry 97 97 96 Oxygen Delivery Method Oxygen Flow Rate 01/16/19 19:20 01/16/19 19:21 01/16/19 19:25 Temperature Temperature Source Pulse Rate 89 83 91 H Pulse Rate [Apical] Pulse Rate [Left Finger] Pulse Rate from SpO2 Sensor 86 88 90 Pulse Rhythm [Apical] Pulse Rhythm [Left Finger] Pulse Strength [Apical] Pulse Strength [Left Finger] Respiratory Rate 14 14 14 Respiratory Effort / Characteristics Respiratory Depth Respiratory Pattern Blood Pressure 100/66 Blood Pressure [Left Arm] Blood Pressure [Right Arm] Blood Pressure Mean 77 Blood Pressure Mean [Left Arm] Blood Pressure Mean [Right Arm] Blood Pressure Position [Left Arm] Blood Pressure Position [Right Arm] Pulse Oximetry 96 98 96 Oxygen Delivery Method Oxygen Flow Rate 01/16/19 19:26 01/16/19 19:45 01/16/19 20:15 Temperature 37.4 C 37.4 C Temperature Source Oral Oral Pulse Rate 85 Pulse Rate [Apical] Pulse Rate [Left Finger] 94 H 97 H Pulse Rate from SpO2 Sensor 86 Pulse Rhythm [Apical] Pulse Rhythm [Left Finger] Regular Pulse Strength [Apical] Pulse Strength [Left Finger] Normal Respiratory Rate 15 14 20 Respiratory Effort / Characteristics Non-Labored Spontaneous Respiratory Depth Normal Normal Respiratory Pattern Regular Agonal Blood Pressure 105/53 L Blood Pressure [Left Arm] 111/75 Blood Pressure [Right Arm] 112/74 Blood Pressure Mean 70 Blood Pressure Mean [Left Arm] 87 Blood Pressure Mean [Right Arm] 86 Blood Pressure Position [Left Arm] Lying Blood Pressure Position [Right Arm] Lying Pulse Oximetry 97 95 95 Oxygen Delivery Method Nasal Cannula Nasal Cannula Oxygen Flow Rate 2 4 01/16/19 20:43 01/16/19 21:00 01/16/19 21:31 Temperature 37.1 C Temperature Source Oral Pulse Rate 73 81 Pulse Rate [Apical] Pulse Rate [Left Finger] 94 H Pulse Rate from SpO2 Sensor Pulse Rhythm [Apical] Pulse Rhythm [Left Finger] Regular Pulse Strength [Apical] Pulse Strength [Left Finger] Normal Respiratory Rate 18 20 Respiratory Effort / Characteristics Non-Labored Spontaneous Respiratory Depth Normal Normal Respiratory Pattern Regular Blood Pressure Blood Pressure [Left Arm] Blood Pressure [Right Arm] 91/53 L Blood Pressure Mean Blood Pressure Mean [Left Arm] Blood Pressure Mean [Right Arm] 65 Blood Pressure Position [Left Arm] Blood Pressure Position [Right Arm] Lying Pulse Oximetry 95 96 Oxygen Delivery Method Nasal Cannula Oxygen Flow Rate 2 2 01/16/19 21:38 01/16/19 22:22 01/16/19 23:44 Temperature 37.3 C 36.9 C 37.2 C Temperature Source Oral Oral Axillary Pulse Rate Pulse Rate [Apical] 83 Pulse Rate [Left Finger] 76 80 Pulse Rate from SpO2 Sensor Pulse Rhythm [Apical] Regular Pulse Rhythm [Left Finger] Regular Regular Pulse Strength [Apical] Normal Pulse Strength [Left Finger] Normal Normal Respiratory Rate 20 18 17 Respiratory Effort / Characteristics Respiratory Depth Normal Normal Normal Respiratory Pattern Regular Blood Pressure Blood Pressure [Left Arm] 95/58 L Blood Pressure [Right Arm] 92/55 L 90/59 L Blood Pressure Mean Blood Pressure Mean [Left Arm] 70 Blood Pressure Mean [Right Arm] 67 69 Blood Pressure Position [Left Arm] Lying Blood Pressure Position [Right Arm] Lying Lying Pulse Oximetry 97 96 94 Oxygen Delivery Method Nasal Cannula Nasal Cannula BiPAP Oxygen Flow Rate 2 2 01/16/19 23:55 01/17/19 04:00 Temperature 36.7 C Temperature Source Oral Pulse Rate Pulse Rate [Apical] Pulse Rate [Left Finger] 85 Pulse Rate from SpO2 Sensor Pulse Rhythm [Apical] Pulse Rhythm [Left Finger] Regular Pulse Strength [Apical] Pulse Strength [Left Finger] Normal Respiratory Rate 17 Respiratory Effort / Characteristics Respiratory Depth Normal Respiratory Pattern Regular Blood Pressure Blood Pressure [Left Arm] 95/63 L Blood Pressure [Right Arm] Blood Pressure Mean Blood Pressure Mean [Left Arm] 73 Blood Pressure Mean [Right Arm] Blood Pressure Position [Left Arm] Lying Blood Pressure Position [Right Arm] Pulse Oximetry 93 Oxygen Delivery Method CPAP BiPAP Oxygen Flow Rate VITAL SIGNS - Vital signs and nursing notes were reviewed. Stable and afebrile. GENERAL -53-year-old female appearing her stated age who is in no acute distress. Communicates well with provider and answers questions appropriately. SKIN - Without rashes. No meningeal or petechial rash. Left lower extremity is deformed, noting that from the hip to just proximal to the left knee and then there is lateral displacement slightly. Skin is intact without evidence of open fracture. HEAD - NC/AT. EYES - PERRL with EOMI bilaterally. Sclera anicteric. EARS - No deformities of external structures noted on gross examination bilaterally. No hemotympanum. NOSE - Midline and without cyanosis. No epistaxis or purulent drainage noted. MOUTH/OROPHARYNX - Without perioral cyanosis. NECK - Neck with FROM. Supple to palpation. No nuchal rigidity. LUNGS - Chest wall symmetric without accessory muscle use, intercostals retractions, or central cyanosis. Normal vesicular breath sounds CTA B/L. No wheezes, rales, or rhonchi appreciated. CARDIAC - Irregular rate and rhythm noted. ABDOMEN - Abdominal contour normal without pulsations or visible masses. BS normoactive all four quadrants. No tenderness, palpable masses, hepatosplenomegaly, or ascites noted. EXTREMITIES - No clubbing or peripheral cyanosis. No pretibial edema present. +5/5 strength noted in UE/LE bilaterally.TTP over the anterior distal femur/ area just proximal to the left knee. She is neurovascularly intact distally with adequate capillary refill. NEUROLOGIC - Cranial nerves II through XII grossly intact. PSYCH - A&O, and cooperates fully with examiner. Pt is very pleasant and interacts well with examiner. Course Administered Medications Acetaminophen (Tylenol) 1,000 mg PO Q8 [facility] Stop: 02/15/19 21:59 Last Admin: 01/17/19 05:55 Dose: 1,000 mg Documented by: [id number] Admin: 01/16/19 21:35 Dose: 1,000 mg Documented by: [id number] Digoxin (Lanoxin) 0.125 mg PO DAILY@1600 [facility] Stop: 02/14/19 15:59 Last Admin: 01/16/19 21:31 Dose: 0.125 mg Documented by: [id number] Admin: 01/15/19 19:01 Dose: 0.125 mg Documented by: [id number] Docusate Sodium (Colace) 100 mg PO BID [facility] Stop: 02/15/19 20:59 Last Admin: 01/16/19 21:35 Dose: 100 mg Documented by: [id number] Doxycycline Hyclate 100 mg/ (Dextrose) 110 mls @ 50 mls/hr IV Q12H [facility] Stop: 01/18/19 03:59 Last Infusion: 01/17/19 05:50 Dose: 0 mls/hr Documented by: [id number] Admin: 01/17/19 03:33 Dose: 50 mls/hr Documented by: [id number] Insulin Aspart (Novolog Flexpen) 0 units SC ACHS [facility] Stop: 02/15/19 20:59 Last Admin: 01/16/19 21:37 Dose: 7 units Documented by: [id number] Cosigned by: [id number] Lactulose (Chronulac) 30 gm PO BID [facility] Stop: 02/15/19 19:08 Last Admin: 01/16/19 21:54 Dose: Not Given Documented by: [id number] Admin: 01/16/19 21:32 Dose: 30 gm Documented by: [id number] Levothyroxine Sodium (Synthroid) 1,200 mcg PO QAM [facility] Stop: 02/14/19 10:44 Last Admin: 01/16/19 09:59 Dose: 1,200 mcg Documented by: [id number] Admin: 01/15/19 12:47 Dose: 1,200 mcg Documented by: [id number] Loratadine (Claritin) 10 mg PO DAILY [facility] Stop: 02/14/19 10:29 Last Admin: 01/16/19 09:58 Dose: 10 mg Documented by: [id number] Admin: 01/15/19 12:47 Dose: 10 mg Documented by: [id number] Metoprolol Succinate (Toprol Xl) 25 mg PO DAILY [facility] Stop: 02/14/19 10:29 Last Admin: 01/16/19 09:58 Dose: 25 mg Documented by: [id number] Admin: 01/15/19 12:48 Dose: 25 mg Documented by: [id number] Miscellaneous (Order Awaiting Action) 1 ea N/A QS [facility] Stop: 02/14/19 15:59 Last Admin: 01/17/19 00:01 Dose: Not Given Documented by: [id number] Admin: 01/16/19 19:55 Dose: Not Given Documented by: [id number] Admin: 01/16/19 09:02 Dose: Not Given Documented by: [id number] Admin: 01/15/19 23:47 Dose: Not Given Documented by: [id number] Admin: 01/15/19 19:03 Dose: Not Given Documented by: [id number] Morphine Sulfate (Morphine Sulfate) 4 mg IV Q4 PRN PRN Reason: Pain Stop: 01/29/19 09:55 Last Admin: 01/16/19 13:16 Dose: 4 mg Documented by: [id number] Admin: 01/16/19 08:13 Dose: 4 mg Documented by: [id number] Admin: 01/15/19 18:35 Dose: 4 mg Documented by: [id number] Admin: 01/15/19 10:35 Dose: 4 mg Documented by: [id number] Pantoprazole Sodium (Protonix) 40 mg PO DAILY [facility] Stop: 02/14/19 10:29 Last Admin: 01/16/19 10:00 Dose: 40 mg Documented by: [id number] Admin: 01/15/19 12:47 Dose: 40 mg Documented by: [id number] Potassium Chloride (Klor-Con M10) 20 meq PO QAM [facility] Stop: 02/14/19 10:44 Last Admin: 01/16/19 10:00 Dose: 20 meq Documented by: [id number] Admin: 01/15/19 12:48 Dose: 20 meq Documented by: [id number] Ranitidine HCl (Zantac) 150 mg PO BID [facility] Stop: 02/14/19 10:29 Last Admin: 01/16/19 21:35 Dose: 150 mg Documented by: [id number] Admin: 01/16/19 09:10 Dose: 150 mg Documented by: [id number] Admin: 01/15/19 22:30 Dose: 150 mg Documented by: [id number] Admin: 01/15/19 12:48 Dose: 150 mg Documented by: [id number] Sennosides (Senokot) 17.2 mg PO HS [facility] Stop: 02/15/19 20:59 Last Admin: 01/16/19 21:35 Dose: 17.2 mg Documented by: [id number] Spironolactone (Aldactone) 12.5 mg PO DAILY [facility] Stop: 02/14/19 10:29 Last Admin: 01/16/19 10:01 Dose: 12.5 mg Documented by: [id number] Admin: 01/15/19 12:48 Dose: 12.5 mg Documented by: [id number] Sucralfate (Carafate Tab) 1 gm PO ACHS [facility] Stop: 02/14/19 11:29 Last Admin: 01/16/19 21:35 Dose: 1 gm Documented by: [id number] Admin: 01/16/19 19:56 Dose: Not Given Documented by: [id number] Admin: 01/16/19 11:26 Dose: 1 gm Documented by: [id number] Admin: 01/16/19 09:10 Dose: 1 gm Documented by: [id number] Admin: 01/15/19 22:30 Dose: 1 gm Documented by: [id number] Admin: 01/15/19 19:01 Dose: 1 gm Documented by: [id number] Admin: 01/15/19 12:47 Dose: 1 gm Documented by: [id number] Discontinued Medications Bacitracin (Bacitracin) Confirm Administered Dose 50,000 units .ROUTE .STK-MED ONE Stop: 01/16/19 14:53 Last Admin: 01/16/19 18:09 Dose: 50,000 units Documented by: [id number] Fentanyl Citrate (Fentanyl Citrate) 50 mcg IV NOW STA Stop: 01/15/19 07:04 Last Admin: 01/15/19 07:09 Dose: 50 mcg Documented by: [id number] Sodium Chloride (Nss 1000ml) 500 mls @ 999 mls/hr IV .Q31M ONE Stop: 01/15/19 07:42 Last Infusion: 01/15/19 08:57 Dose: 0 mls/hr Documented by: [id number] Admin: 01/15/19 07:45 Dose: 999 mls/hr Documented by: [id number] Phytonadione 2.5 mg/ Sodium (Chloride) 50.25 mls @ 100.5 mls/hr IV ONE ONE Stop: 01/15/19 07:52 Last Infusion: 01/15/19 08:57 Dose: 0 mls/hr Documented by: [id number] Admin: 01/15/19 07:43 Dose: 100.5 mls/hr Documented by: [id number] Sodium Chloride (Nss 1000ml) 1,000 mls @ 70 mls/hr IV .[id number] [facility] Stop: 01/16/19 15:17 Last Infusion: 01/16/19 11:24 Dose: 0 mls/hr Documented by: [id number] Infusion: 01/16/19 06:18 Dose: 70 mls/hr Documented by: [id number] Admin: 01/16/19 02:18 Dose: 70 mls/hr Documented by: [id number] Phytonadione 2.5 mg/ Sodium (Chloride) 50.25 mls @ 100.5 mls/hr IV 0845 ONE Stop: 01/16/19 09:14 Last Infusion: 01/16/19 09:41 Dose: 0 mls/hr Documented by: [id number] Admin: 01/16/19 09:11 Dose: 100.5 mls/hr Documented by: [id number] Cefazolin Sodium (Ancef 2000mg) 2,000 mg in 15 mls @ 3.75 mls/min IV PREOP ONE Stop: 01/16/19 15:08 Last Admin: 01/16/19 20:16 Dose: Not Given Documented by: [id number] Ropivacaine 150 mg/Bupivacaine HCl 30 ml/Epinephrine HCl 0.15 mg/Ketorolac Tromethamine 30 mg/Dexamethasone 4 mg/ Ketamine HCl 10 mg/ Clonidine HCl 100 mcg/ Sodium Chloride 93.35 mls @ 0 mls/hr INFIL TODAY@0600 [facility] Stop: 01/16/19 15:01 Last Admin: 01/16/19 17:51 Dose: 93.35 mls/hr Documented by: [id number] Doxycycline Hyclate 100 mg/ (Dextrose) 110 mls @ 50 mls/hr IV TODAY@1610 ONE Stop: 01/16/19 18:21 Last Infusion: 01/16/19 20:17 Dose: 0 mls/hr Documented by: [id number] Admin: 01/16/19 16:30 Dose: 50 mls/hr Documented by: [id number] Sodium Chloride (Nss 1000ml) 1,000 mls @ 100 mls/hr IV .Q10H [facility] Stop: 01/17/19 06:00 Last Infusion: 01/17/19 05:50 Dose: 0 mls/hr Documented by: [id number] Infusion: 01/17/19 03:35 Dose: 0 mls/hr Documented by: [id number] Admin: 01/16/19 21:28 Dose: 100 mls/hr Documented by: [id number] Insulin Aspart (Novolog Flexpen) 0 units SC ACHS [facility] Stop: 01/15/19 23:59 Last Admin: 01/15/19 22:01 Dose: 2 units Documented by: [id number] Cosigned by: [id number] Admin: 01/15/19 18:54 Dose: 7 units Documented by: [id number] Cosigned by: [id number] Admin: 01/15/19 13:57 Dose: 12 units Documented by: [id number] Cosigned by: [id number] Insulin Aspart (Novolog Flexpen) 0 units SC Q4 [facility] Stop: 02/15/19 00:00 Last Admin: 01/16/19 12:19 Dose: Not Given Documented by: [id number] Cosigned by: [id number] Admin: 01/16/19 09:48 Dose: Not Given Documented by: [id number] Cosigned by: [id number] Admin: 01/16/19 04:51 Dose: Not Given Documented by: [id number] Cosigned by: [id number] Admin: 01/16/19 02:16 Dose: Not Given Documented by: [id number] Cosigned by: [id number] Insulin Aspart (Novolog Flexpen) 0 units SC Q6 [facility] Stop: 02/15/19 00:00 Last Admin: 01/16/19 20:25 Dose: Not Given Documented by: [id number] Cosigned by: [id number] Insulin Aspart (Novolog Flexpen) 0 units SC TODAY@0000,0400 [facility] Stop: 01/17/19 04:01 Last Admin: 01/17/19 04:00 Dose: 5 units Documented by: [id number] Cosigned by: [id number] Admin: 01/16/19 23:53 Dose: 5 units Documented by: [id number] Cosigned by: [id number] Insulin Glargine (Lantus Solostar Pen) 40 units SC 1230 [facility] Stop: 01/15/19 23:59 Last Admin: 01/15/19 14:02 Dose: 40 units Documented by: [id number] Cosigned by: [id number] Insulin Glargine (Lantus Solostar Pen) 13 units SC NOW STA Stop: 01/16/19 20:50 Last Admin: 01/16/19 21:30 Dose: 13 units Documented by: [id number] Cosigned by: [id number] Insulin Human Regular (Novolin R U-100 Per Unit) 10 units IV NOW STA Stop: 01/15/19 06:47 Last Admin: 01/15/19 06:51 Dose: 10 units Documented by: [id number] Cosigned by: [id number] Potassium Chloride (Klor-Con M20) 40 meq PO NOW STA Stop: 01/15/19 13:19 Last Admin: 01/15/19 17:40 Dose: 40 meq Documented by: [id number] Medical Decision Making Laboratory Data Result diagrams: 01/16/19 07:00 01/16/19 07:00 Lab Results 01/15/19 01/15/19 01/15/19 Range/Units 05:22 05:22 05:22 WBC 7.66 (4.8-10.8) K/uL RBC 4.92 (4.2-5.4) M/uL Hgb 13.8 (12.0-16.0) g/dL Hct 42.1 (37-47) % MCV 85.6 (80-100) fL MCH 28.0 (25-34) pg MCHC 32.8 (32-36) g/dL RDW Std Deviation 60.2 H (36.4-46.3) fL RDW Coeff of Stanley 19.2 H (11.5-14.5) % Plt Count 169 (130-400) K/uL MPV 10.1 (7.4-10.4) fL Immature Gran % (Auto) 0.3 % Neut % (Auto) 72.3 % Lymph % (Auto) 15.3 % [place] % (Auto) 10.6 % Eos % (Auto) 1.2 % Baso % (Auto) 0.3 % Immature Gran # (Auto) 0.02 (0.00-0.02) K/uL Neut # (Auto) 5.55 (1.4-6.5) K/uL Lymph # (Auto) 1.17 L (1.2-3.4) K/uL [place] # (Auto) 0.81 H (0.11-0.59) K/uL Eos # (Auto) 0.09 (0-0.5) K/uL Baso # (Auto) 0.02 (0-0.2) K/uL PT Cancelled INR Cancelled APTT Cancelled PTT Ratio Cancelled Sodium 132 L (136-145) mmol/L Potassium 3.4 L (3.5-5.1) mmol/L Chloride 90 L (98-107) mmol/L Carbon Dioxide 36 H (21-32) mmol/L Anion Gap 6.0 (3-11) BUN 12 (7-18) mg/dl Creatinine 1.12 (0.6-1.2) mg/dl Est Cr Clr Drug Dosing 50.7 ml/min Est GFR ( Amer) 64.0 Est GFR (Non-Af Amer) 55.3 BUN/Creatinine Ratio 10.7 (10-20) Glucose 554 H* (70-99) mg/dl POC Glucose (70-99) Calcium 9.4 (8.5-10.1) mg/dl Total Bilirubin 3.5 H (0.2-1) mg/dl AST 23 (15-37) U/L ALT 18 (12-78) U/L Alkaline Phosphatase 234 H (45-117) U/L Total Protein 6.7 (6.4-8.2) gm/dl Albumin 2.6 L (3.4-5.0) gm/dl Globulin 4.1 H (2.5-4.0) gm/dl Albumin/Globulin Ratio 0.6 L (0.9-2) Beta-Hydroxybutyric Acd 2.98 H (0.2-2.81) mg/dl Urine Color Urine Appearance (Clear) Urine pH (4.5-7.5) Ur Specific [place] (1.000-1.030) Urine Protein (Negative) Urine Glucose (UA) (Negative) Urine Ketones (Negative) Urine Blood (Negative) Urine Nitrite (Negative) Urine Bilirubin (Negative) Urine Urobilinogen (Negative) Ur Leukocyte Esterase (Negative) Blood Type Antibody Screen 01/15/19 01/15/19 01/15/19 Range/Units 06:52 07:40 09:17 WBC (4.8-10.8) K/uL RBC (4.2-5.4) M/uL Hgb (12.0-16.0) g/dL Hct (37-47) % MCV (80-100) fL MCH (25-34) pg MCHC (32-36) g/dL RDW Std Deviation (36.4-46.3) fL RDW Coeff of [place] (11.5-14.5) % Plt Count (130-400) K/uL MPV (7.4-10.4) fL Immature Gran % (Auto) % Neut % (Auto) % Lymph % (Auto) % [place] % (Auto) % Eos % (Auto) % Baso % (Auto) % Immature Gran # (Auto) (0.00-0.02) K/uL Neut # (Auto) (1.4-6.5) K/uL Lymph # (Auto) (1.2-3.4) K/uL [place] # (Auto) (0.11-0.59) K/uL Eos # (Auto) (0-0.5) K/uL Baso # (Auto) (0-0.2) K/uL PT 32.2 H INR 3.4 H APTT 33.8 H PTT Ratio 1.2 Sodium (136-145) mmol/L Potassium (3.5-5.1) mmol/L Chloride (98-107) mmol/L Carbon Dioxide (21-32) mmol/L Anion Gap (3-11) BUN (7-18) mg/dl Creatinine (0.6-1.2) mg/dl Est Cr Clr Drug Dosing ml/min Est GFR ( Amer) Est GFR (Non-Af Amer) BUN/Creatinine Ratio (10-20) Glucose (70-99) mg/dl POC Glucose 386 H* (70-99) Calcium (8.5-10.1) mg/dl Total Bilirubin (0.2-1) mg/dl AST (15-37) U/L ALT (12-78) U/L Alkaline Phosphatase (45-117) U/L Total Protein (6.4-8.2) gm/dl Albumin (3.4-5.0) gm/dl Globulin (2.5-4.0) gm/dl Albumin/Globulin Ratio (0.9-2) Beta-Hydroxybutyric Acd (0.2-2.81) mg/dl Urine Color Yellow Urine Appearance Clear (Clear) Urine pH 6.5 (4.5-7.5) Ur Specific [place] 1.030 (1.000-1.030) Urine Protein Negative (Negative) Urine Glucose (UA) 3+ H (Negative) Urine Ketones Negative (Negative) Urine Blood Negative (Negative) Urine Nitrite Negative (Negative) Urine Bilirubin Negative (Negative) Urine Urobilinogen Negative (Negative) Ur Leukocyte Esterase Negative (Negative) Blood Type Antibody Screen 01/15/19 01/15/19 01/15/19 Range/Units 11:17 11: 13:18 WBC (4.8-10.8) K/uL RBC (4.2-5.4) M/uL Hgb (12.0-16.0) g/dL Hct (37-47) % MCV (80-100) fL MCH (25-34) pg MCHC (32-36) g/dL RDW Std Deviation (36.4-46.3) fL RDW Coeff of [place] (11.5-14.5) % Plt Count (130-400) K/uL MPV (7.4-10.4) fL Immature Gran % (Auto) % Neut % (Auto) % Lymph % (Auto) % [place] % (Auto) % Eos % (Auto) % Baso % (Auto) % Immature Gran # (Auto) (0.00-0.02) K/uL Neut # (Auto) (1.4-6.5) K/uL Lymph # (Auto) (1.2-3.4) K/uL [place] # (Auto) (0.11-0.59) K/uL Eos # (Auto) (0-0.5) K/uL Baso # (Auto) (0-0.2) K/uL PT INR APTT PTT Ratio Sodium (136-145) mmol/L Potassium (3.5-5.1) mmol/L Chloride (98-107) mmol/L Carbon Dioxide (21-32) mmol/L Anion Gap (3-11) BUN (7-18) mg/dl Creatinine (0.6-1.2) mg/dl Est Cr Clr Drug Dosing ml/min Est GFR ( Amer) Est GFR (Non-Af Amer) BUN/Creatinine Ratio (10-20) Glucose (70-99) mg/dl POC Glucose 367 H* 359 H* 389 H* (70-99) Calcium (8.5-10.1) mg/dl Total Bilirubin (0.2-1) mg/dl AST (15-37) U/L ALT (12-78) U/L Alkaline Phosphatase (45-117) U/L Total Protein (6.4-8.2) gm/dl Albumin (3.4-5.0) gm/dl Globulin (2.5-4.0) gm/dl Albumin/Globulin Ratio (0.9-2) Beta-Hydroxybutyric Acd (0.2-2.81) mg/dl Urine Color Urine Appearance (Clear) Urine pH (4.5-7.5) Ur Specific [place] (1.000-1.030) Urine Protein (Negative) Urine Glucose (UA) (Negative) Urine Ketones (Negative) Urine Blood (Negative) Urine Nitrite (Negative) Urine Bilirubin (Negative) Urine Urobilinogen (Negative) Ur Leukocyte Esterase (Negative) Blood Type Antibody Screen 01/15/19 01/15/19 01/15/19 Range/Units 13:19 16:00 17:02 WBC (4.8-10.8) K/uL RBC (4.2-5.4) M/uL Hgb (12.0-16.0) g/dL Hct (37-47) % MCV (80-100) fL MCH (25-34) pg MCHC (32-36) g/dL RDW Std Deviation (36.4-46.3) fL RDW Coeff of [place] (11.5-14.5) % Plt Count (130-400) K/uL MPV (7.4-10.4) fL Immature Gran % (Auto) % Neut % (Auto) % Lymph % (Auto) % [place] % (Auto) % Eos % (Auto) % Baso % (Auto) % Immature Gran # (Auto) (0.00-0.02) K/uL Neut # (Auto) (1.4-6.5) K/uL Lymph # (Auto) (1.2-3.4) K/uL [place] # (Auto) (0.11-0.59) K/uL Eos # (Auto) (0-0.5) K/uL Baso # (Auto) (0-0.2) K/uL PT INR APTT PTT Ratio Sodium (136-145) mmol/L Potassium (3.5-5.1) mmol/L Chloride (98-107) mmol/L Carbon Dioxide (21-32) mmol/L Anion Gap (3-11) BUN (7-18) mg/dl Creatinine (0.6-1.2) mg/dl Est Cr Clr Drug Dosing ml/min Est GFR ( Amer) Est GFR (Non-Af Amer) BUN/Creatinine Ratio (10-20) Glucose (70-99) mg/dl POC Glucose 368 H* 243 H (70-99) Calcium (8.5-10.1) mg/dl Total Bilirubin (0.2-1) mg/dl AST (15-37) U/L ALT (12-78) U/L Alkaline Phosphatase (45-117) U/L Total Protein (6.4-8.2) gm/dl Albumin (3.4-5.0) gm/dl Globulin (2.5-4.0) gm/dl Albumin/Globulin Ratio (0.9-2) Beta-Hydroxybutyric Acd (0.2-2.81) mg/dl Urine Color Urine Appearance (Clear) Urine pH (4.5-7.5) Ur Specific [place] (1.000-1.030) Urine Protein (Negative) Urine Glucose (UA) (Negative) Urine Ketones (Negative) Urine Blood (Negative) Urine Nitrite (Negative) Urine Bilirubin (Negative) Urine Urobilinogen (Negative) Ur Leukocyte Esterase (Negative) Blood Type A Negative Antibody Screen NEGATIVE 01/15/19 01/15/19 01/16/19 Range/Units 20:14 23:39 04:48 WBC (4.8-10.8) K/uL RBC (4.2-5.4) M/uL Hgb (12.0-16.0) g/dL Hct (37-47) % MCV (80-100) fL MCH (25-34) pg MCHC (32-36) g/dL RDW Std Deviation (36.4-46.3) fL RDW Coeff of [place] (11.5-14.5) % Plt Count (130-400) K/uL MPV (7.4-10.4) fL Immature Gran % (Auto) % Neut % (Auto) % Lymph % (Auto) % [place] % (Auto) % Eos % (Auto) % Baso % (Auto) % Immature Gran # (Auto) (0.00-0.02) K/uL Neut # (Auto) (1.4-6.5) K/uL Lymph # (Auto) (1.2-3.4) K/uL [place] # (Auto) (0.11-0.59) K/uL Eos # (Auto) (0-0.5) K/uL Baso # (Auto) (0-0.2) K/uL PT INR APTT PTT Ratio Sodium (136-145) mmol/L Potassium (3.5-5.1) mmol/L Chloride (98-107) mmol/L Carbon Dioxide (21-32) mmol/L Anion Gap (3-11) BUN (7-18) mg/dl Creatinine (0.6-1.2) mg/dl Est Cr Clr Drug Dosing ml/min Est GFR ( Amer) Est GFR (Non-Af Amer) BUN/Creatinine Ratio (10-20) Glucose (70-99) mg/dl POC Glucose 156 H 79 106 H (70-99) Calcium (8.5-10.1) mg/dl Total Bilirubin (0.2-1) mg/dl AST (15-37) U/L ALT (12-78) U/L Alkaline Phosphatase (45-117) U/L Total Protein (6.4-8.2) gm/dl Albumin (3.4-5.0) gm/dl Globulin (2.5-4.0) gm/dl Albumin/Globulin Ratio (0.9-2) Beta-Hydroxybutyric Acd (0.2-2.81) mg/dl Urine Color Urine Appearance (Clear) Urine pH (4.5-7.5) Ur Specific [place] (1.000-1.030) Urine Protein (Negative) Urine Glucose (UA) (Negative) Urine Ketones (Negative) Urine Blood (Negative) Urine Nitrite (Negative) Urine Bilirubin (Negative) Urine Urobilinogen (Negative) Ur Leukocyte Esterase (Negative) Blood Type Antibody Screen 01/16/19 01/16/19 01/16/19 Range/Units 06:00 07:00 07:00 WBC 8.01 (4.8-10.8) K/uL RBC 4.64 (4.2-5.4) M/uL Hgb 13.2 (12.0-16.0) g/dL Hct 40.6 (37-47) % MCV 87.5 (80-100) fL MCH 28.4 (25-34) pg MCHC 32.5 (32-36) g/dL RDW Std Deviation 63.2 H (36.4-46.3) fL RDW Coeff of [place] 19.8 H (11.5-14.5) % Plt Count 173 (130-400) K/uL MPV 9.7 (7.4-10.4) fL Immature Gran % (Auto) 0.4 % Neut % (Auto) 61.5 % Lymph % (Auto) 24.0 % [place] % (Auto) 10.9 % Eos % (Auto) 3.1 % Baso % (Auto) 0.1 % Immature Gran # (Auto) 0.03 H (0.00-0.02) K/uL Neut # (Auto) 4.93 (1.4-6.5) K/uL Lymph # (Auto) 1.92 (1.2-3.4) K/uL [place] # (Auto) 0.87 H (0.11-0.59) K/uL Eos # (Auto) 0.25 (0-0.5) K/uL Baso # (Auto) 0.01 (0-0.2) K/uL PT 16.1 H INR 1.6 H APTT 29.0 PTT Ratio 1.1 Sodium (136-145) mmol/L Potassium (3.5-5.1) mmol/L Chloride (98-107) mmol/L Carbon Dioxide (21-32) mmol/L Anion Gap (3-11) BUN (7-18) mg/dl Creatinine (0.6-1.2) mg/dl Est Cr Clr Drug Dosing ml/min Est GFR ( Amer) Est GFR (Non-Af Amer) BUN/Creatinine Ratio (10-20) Glucose (70-99) mg/dl POC Glucose 107 H (70-99) Calcium (8.5-10.1) mg/dl Total Bilirubin (0.2-1) mg/dl AST (15-37) U/L ALT (12-78) U/L Alkaline Phosphatase (45-117) U/L Total Protein (6.4-8.2) gm/dl Albumin (3.4-5.0) gm/dl Globulin (2.5-4.0) gm/dl Albumin/Globulin Ratio (0.9-2) Beta-Hydroxybutyric Acd (0.2-2.81) mg/dl Urine Color Urine Appearance (Clear) Urine pH (4.5-7.5) Ur Specific [place] (1.000-1.030) Urine Protein (Negative) Urine Glucose (UA) (Negative) Urine Ketones (Negative) Urine Blood (Negative) Urine Nitrite (Negative) Urine Bilirubin (Negative) Urine Urobilinogen (Negative) Ur Leukocyte Esterase (Negative) Blood Type Antibody Screen 01/16/19 01/16/19 01/16/19 Range/Units 07:00 11:59 12:13 WBC (4.8-10.8) K/uL RBC (4.2-5.4) M/uL Hgb (12.0-16.0) g/dL Hct (37-47) % MCV (80-100) fL MCH (25-34) pg MCHC (32-36) g/dL RDW Std Deviation (36.4-46.3) fL RDW Coeff of [place] (11.5-14.5) % Plt Count (130-400) K/uL MPV (7.4-10.4) fL Immature Gran % (Auto) % Neut % (Auto) % Lymph % (Auto) % [place] % (Auto) % Eos % (Auto) % Baso % (Auto) % Immature Gran # (Auto) (0.00-0.02) K/uL Neut # (Auto) (1.4-6.5) K/uL Lymph # (Auto) (1.2-3.4) K/uL [place] # (Auto) (0.11-0.59) K/uL Eos # (Auto) (0-0.5) K/uL Baso # (Auto) (0-0.2) K/uL PT 15.2 H INR 1.5 H APTT PTT Ratio Sodium 138 (136-145) mmol/L Potassium 4.5 D (3.5-5.1) mmol/L Chloride 99 (98-107) mmol/L Carbon Dioxide 33 H (21-32) mmol/L Anion Gap 6.0 (3-11) BUN 16 (7-18) mg/dl Creatinine 0.91 (0.6-1.2) mg/dl Est Cr Clr Drug Dosing 62.4 ml/min Est GFR ( Amer) 82.3 Est GFR (Non-Af Amer) 71.0 BUN/Creatinine Ratio 17.8 (10-20) Glucose 114 H (70-99) mg/dl POC Glucose 140 H (70-99) Calcium 9.3 (8.5-10.1) mg/dl Total Bilirubin 4.0 H (0.2-1) mg/dl AST 20 (15-37) U/L ALT 15 (12-78) U/L Alkaline Phosphatase 186 H (45-117) U/L Total Protein 5.9 L (6.4-8.2) gm/dl Albumin 2.2 L (3.4-5.0) gm/dl Globulin 3.7 (2.5-4.0) gm/dl Albumin/Globulin Ratio 0.6 L (0.9-2) Beta-Hydroxybutyric Acd (0.2-2.81) mg/dl Urine Color Urine Appearance (Clear) Urine pH (4.5-7.5) Ur Specific [place] (1.000-1.030) Urine Protein (Negative) Urine Glucose (UA) (Negative) Urine Ketones (Negative) Urine Blood (Negative) Urine Nitrite (Negative) Urine Bilirubin (Negative) Urine Urobilinogen (Negative) Ur Leukocyte Esterase (Negative) Blood Type Antibody Screen 01/16/19 01/16/19 01/16/19 Range/Units 18:36 20:15 23:52 WBC (4.8-10.8) K/uL RBC (4.2-5.4) M/uL Hgb (12.0-16.0) g/dL Hct (37-47) % MCV (80-100) fL MCH (25-34) pg MCHC (32-36) g/dL RDW Std Deviation (36.4-46.3) fL RDW Coeff of [place] (11.5-14.5) % Plt Count (130-400) K/uL MPV (7.4-10.4) fL Immature Gran % (Auto) % Neut % (Auto) % Lymph % (Auto) % [place] % (Auto) % Eos % (Auto) % Baso % (Auto) % Immature Gran # (Auto) (0.00-0.02) K/uL Neut # (Auto) (1.4-6.5) K/uL Lymph # (Auto) (1.2-3.4) K/uL [place] # (Auto) (0.11-0.59) K/uL Eos # (Auto) (0-0.5) K/uL Baso # (Auto) (0-0.2) K/uL PT INR APTT PTT Ratio Sodium (136-145) mmol/L Potassium (3.5-5.1) mmol/L Chloride (98-107) mmol/L Carbon Dioxide (21-32) mmol/L Anion Gap (3-11) BUN (7-18) mg/dl Creatinine (0.6-1.2) mg/dl Est Cr Clr Drug Dosing ml/min Est GFR ( Amer) Est GFR (Non-Af Amer) BUN/Creatinine Ratio (10-20) Glucose (70-99) mg/dl POC Glucose 151 H 168 H 223 H (70-99) Calcium (8.5-10.1) mg/dl Total Bilirubin (0.2-1) mg/dl AST (15-37) U/L ALT (12-78) U/L Alkaline Phosphatase (45-117) U/L Total Protein (6.4-8.2) gm/dl Albumin (3.4-5.0) gm/dl Globulin (2.5-4.0) gm/dl Albumin/Globulin Ratio (0.9-2) Beta-Hydroxybutyric Acd (0.2-2.81) mg/dl Urine Color Urine Appearance (Clear) Urine pH (4.5-7.5) Ur Specific [place] (1.000-1.030) Urine Protein (Negative) Urine Glucose (UA) (Negative) Urine Ketones (Negative) Urine Blood (Negative) Urine Nitrite (Negative) Urine Bilirubin (Negative) Urine Urobilinogen (Negative) Ur Leukocyte Esterase (Negative) Blood Type Antibody Screen 01/17/19 Range/Units 03:59 WBC (4.8-10.8) K/uL RBC (4.2-5.4) M/uL Hgb (12.0-16.0) g/dL Hct (37-47) % MCV (80-100) fL MCH (25-34) pg MCHC (32-36) g/dL RDW Std Deviation (36.4-46.3) fL RDW Coeff of [place] (11.5-14.5) % Plt Count (130-400) K/uL MPV (7.4-10.4) fL Immature Gran % (Auto) % Neut % (Auto) % Lymph % (Auto) % [place] % (Auto) % Eos % (Auto) % Baso % (Auto) % Immature Gran # (Auto) (0.00-0.02) K/uL Neut # (Auto) (1.4-6.5) K/uL Lymph # (Auto) (1.2-3.4) K/uL [place] # (Auto) (0.11-0.59) K/uL Eos # (Auto) (0-0.5) K/uL Baso # (Auto) (0-0.2) K/uL PT INR APTT PTT Ratio Sodium (136-145) mmol/L Potassium (3.5-5.1) mmol/L Chloride (98-107) mmol/L Carbon Dioxide (21-32) mmol/L Anion Gap (3-11) BUN (7-18) mg/dl Creatinine (0.6-1.2) mg/dl Est Cr Clr Drug Dosing ml/min Est GFR ( Amer) Est GFR (Non-Af Amer) BUN/Creatinine Ratio (10-20) Glucose (70-99) mg/dl POC Glucose 237 H (70-99) Calcium (8.5-10.1) mg/dl Total Bilirubin (0.2-1) mg/dl AST (15-37) U/L ALT (12-78) U/L Alkaline Phosphatase (45-117) U/L Total Protein (6.4-8.2) gm/dl Albumin (3.4-5.0) gm/dl Globulin (2.5-4.0) gm/dl Albumin/Globulin Ratio (0.9-2) Beta-Hydroxybutyric Acd (0.2-2.81) mg/dl Urine Color Urine Appearance (Clear) Urine pH (4.5-7.5) Ur Specific [place] (1.000-1.030) Urine Protein (Negative) Urine Glucose (UA) (Negative) Urine Ketones (Negative) Urine Blood (Negative) Urine Nitrite (Negative) Urine Bilirubin (Negative) Urine Urobilinogen (Negative) Ur Leukocyte Esterase (Negative) Blood Type Antibody Screen Imaging Data Radiologist's Impression: XR chest 1V not portable CLINICAL HISTORY: Preoperative evaluation. COMPARISON STUDY: Chest radiograph January 14, 2019 18. PET/CT December 23, 2018. FINDINGS: Left subclavian Bucnys-h-[id number] is in place. There is no pneumothorax or pleural effusion. Linear left basilar opacity suggest atelectasis. Multiple small pulmonary nodules are better depicted on the PET/CT of December 23, 2018 due to technique. There is no evidence for pulmonary edema. IMPRESSION: 1. No acute cardiopulmonary findings. 2. Multiple pulmonary nodules which are better depicted on the PET/CT of December 23, 2018. 3. Cardiomegaly. Electronically signed by: Humberto Montanez M.D. 01/15/2019 6:52 AM XR pelvis 1-2V routine CLINICAL HISTORY: Fall, Left leg pain COMPARISON: PET/CT December 23, 2018. FINDINGS: Bowel anastomosis is noted. Sacroiliac joints and symphysis pubis are intact. No acute fracture is identified within the pelvis or hips. IMPRESSION: No acute fracture within the pelvis or hips. Electronically signed by: Humberto Montanez M.D. 01/15/2019 6:46 AM XR femur LT 2V routine CLINICAL HISTORY: Fall, Left leg pain COMPARISON: Left femur radiographs August 05, 2016. FINDINGS: Alignment of the left hip is anatomic. No proximal left femoral fracture. Note is made of an acute oblique moderately displaced fracture through the distal metadiaphysis of the left femur that extends to the femoral component of the left knee arthroplasty. Fracture is displaced 2.2 cm. IMPRESSION: Acute oblique moderately displaced distal left femoral periprosthetic fracture. Electronically signed by: Humberto Montanez M.D. 01/15/2019 6:48 AM XR tibia fibula LT 2V CLINICAL HISTORY: Fall, Left leg pain COMPARISON: Left knee radiographs February 06, 2016. FINDINGS: Nonunited patellar fracture is noted. The periprosthetic distal left femoral fracture is better depicted on the left femur radiographs. There is no acute fracture of the left tibia or fibula. IMPRESSION: 1. No acute fracture of the left tibia or fibula. 2. Acute periprosthetic distal left femoral fracture better depicted on the left femur radiographs. 3. Old nonunited patellar fracture. Electronically signed by: Humberto Montanez M.D. 01/15/2019 6:50 AM MDM Narrative Patient was seen and evaluated as above in room B6. Review was performed of nursing notes and vital signs. After obtaining a thorough history and physical examination the above work up was performed. She presents to us today via ambulance status post fall. She injured the left leg. There is deformity just proximal to the left knee. X-ray was obtained. There is an acute periprosth etic left distal femur fracture. Ice pack was applied. IV access was established. She was given fluids. She was given fentanyl. Labs reveal no leukocytosis or concerning anemia. Her INR is 3.4 and subsequently secondary to the fracture was given 2.5 mg of vitamin K to help lower this to help decrease large hematoma around the fracture. I did not want to fully reverse this as at this time there is no evidence of emergent need. Mild hypokalemia. Patient's glucose is 554 was given 10 units of insulin. Her beta hydroxy uric acid is 2.98. Patient's urinalysis reveals 3+ glucose otherwise negative and this was a cath sample. A Hirsch catheter was placed. I discussed these findings with the on-call orthopedic doctor for the group of which the patient follows and spoke with Dr. Vaughan. He recommended knee immobilizer, transfer in bed with shara and Micah/DEBBI brooks. It was then thought that the patient's established orthopedic doctor could be involved in the case for potential surgical management if felt appropriate (Dr. Mccoy). That group will be formally consulted once the patient is admitted. I then discussed this with the medical team secondary to the morbidities of the patient and spoke with Dr. Weems. The patient will be admitted for further evaluation and management. Please refer to further documentation regarding her stay. EKG reveals atrial fibrillation. Rate of 76 bpm. I will note that a CT scan of the head was ordered secondary to the fall but in talking with the medicine team she will be taken to the floor and if it is felt that she needs a CT scan it can be reordered. I did cancel this. Case was discussed with the attending physician I attest that I have personally reviewed the patient medication list. I attest that I have reviewed the patient's blood pressure and it was found to be normal systolic with elevated diastolic on presentation likely secondary to that of pain. GCS: 15 In the evaluation and treatment of this patient the following differential diagnoses were entertained: Fracture, dislocation, subluxation, hemorrhage, am marcus others. Impression & Plan Fall, Closed fracture of distal end of left femur, Acute hyperglycemia Discharge Plan Visit Data *Final* Discharge Date/Time: 01/15/19 09:39 Chief Complaint: Fall Other Complaint: Leg Injury/Pain ED Provider: Suzy Butterfield ED Midlevel Provider: Mauri Medina Discharge Problem: Fall, Closed fracture of distal end of left femur, Acute hyperglycemia Patient Disposition: Admitted As Inpatient Condition: Good Discharge Instructions Interventions: ED Discharge Assessment Last Done: 01/15/19 09:39
[2019-01-15] MEDS ORDERED: GLUCOSE 10 TABS/TUBE PO PRN (09:56)
[2019-01-15] MEDS ORDERED: DEXTROSE 50% 50 ML SYRINGE IV PRN (09:56)
[2019-01-15] MEDS ORDERED: ONDANSETRON INJ 2 MG/ML 2 ML VIAL IV PRN (09:56)
[2019-01-15] MEDS ORDERED: GLUCOSE 40% GEL 15 GM TUBE PO PRN (09:56)
[2019-01-15] MEDS ORDERED: GLUCAGON FOR INJ 1 MG VIAL SQ PRN (09:56)
[2019-01-15] MEDS ORDERED: ALBUTEROL HFA 8 GM INHALER INH PRN (09:56)
[2019-01-15] MEDS ORDERED: CARBOHYDRATES FOR HYPOGLYCEMIA PO PRN (09:56)
[2019-01-15] MEDS ORDERED: PHARMACY GLYCEMIC MGMT CONSULT PRN (10:25)
[2019-01-15] MEDS ORDERED: FUROSEMIDE 40 MG TAB PO SCH (10:30)
[2019-01-15] MEDS: MoRPHine SULFATE 4 MG/ML 1 ML CARP\\VIAL IV PRN ×2 (10:35→18:35)
[2019-01-15] MEDS ORDERED: INSULIN GLARGINE SOLOSTAR 100 UNITS/ML 3 ML PEN SC SCH (12:30)
[2019-01-15] MEDS: SUCRALFATE 1 GM TAB PO SCH ×3 (12:47→22:30)
[2019-01-15] MEDS: LORATADINE 10 MG TAB PO SCH (12:47)
[2019-01-15] MEDS: PANTOprazole 40 MG TAB PO SCH (12:47)
[2019-01-15] MEDS: LEVOTHYROXINE SODIUM 200 MCG TABLET PO SCH (12:47)
[2019-01-15] MEDS: METOPROLOL SUCC 25MG EXT REL TAB PO SCH (12:48)
[2019-01-15] MEDS: POTASSIUM CHLORIDE 10 MEQ TABCR PO SCH (12:48)
[2019-01-15] MEDS: SPIRONOLACTONE 25 MG TAB PO SCH (12:48)
[2019-01-15] MEDS ORDERED: POTASSIUM CHLORIDE 20 MEQ TABCR PO STA (13:18)
[2019-01-15] MEDS: INSULIN ASPART 100 UNITS/ML 3 ML PEN SC SCH ×3 (13:57→22:01)
--- NOTE | 2019-01-15 14:12 | CT Scan Report ---
CT SCAN OF THE LEFT FEMUR WITHOUT IV CONTRAST CLINICAL HISTORY: Femoral fracture. COMPARISON STUDY: Radiographs of the left femur dated 01/15/2019. TECHNIQUE: CT scan of the left femur is performed from the right hip to the proximal tibia and fibula . Images are reviewed in the axial, sagittal, and coronal planes. IV contrast was not administered fo r this examination. A dose lowering technique was utilized adhering to the principles of ALARA. FINDINGS: The skeletal structures are osteopenic. The visualized left hemipelvis appears intact. Ther e is a comminuted fracture of the distal femoral metadiaphysis just above the left knee arthroplasty. There is mild rotation of the distal fragments. There is dorsal distraction of the largest fragment by 1.3 cm, and mild apex volar angulation. There is mild overriding of the distal fragments. Small sundeep ne fragments are distracted anteriorly. Fracture likely extends to the anterior aspect of the femoral component of the knee arthroplasty. The proximal tibia and fibula appear intact. Evaluation of the k nee joint is significant degraded by streak artifact from metallic hardware. There is a small amount of hemorrhage around the fracture site. A small intramuscular hematoma is identified within the vastu s lateralis adjacent to the fracture and measures approximately 3 cm. Overlying soft tissue edema is noted. There is generalized atrophy of the left thigh musculature. No inguinal adenopathy is seen. IMPRESSION: 1. There is a comminuted fracture of the distal femoral metadiaphysis as above. 2. There is surrounding soft tissue edema as well as a small intramuscular hematoma within the vastus lateralis. Dictated: 01/15/2019 1:56 PM Transcribed: 01/15/2019 2:12 PM Jess [id number] [email or web address] Electronically signed by: Tacho Delatorre M.D. 01/15/2019 2:12 PM
--- NOTE | 2019-01-15 14:20 | Consultation Report ---
DATE OF CONSULTATION: 01/15/2019 HISTORY OF PRESENT ILLNESS: The patient is a 53-year-old white female who presents with a left distal femoral periprosthetic femur fracture. She had previously undergone total knee arthroplasty by Dr. Mccoy. She has had a multitude of medical issues including atrial fibrillation, diabetes, hypertension, hypothyroidism, asthma, obesity, depression, metastatic colon cancer with ostomy and ostomy reversal amongst many other medical issues as she has had a fall, sustained a periprosthetic left distal femur fracture. X-rays revealed to be evidence of some mild angulation for the femur fracture. I discussed the case with partners and once medical clearance is obtained, we will plan for open reduction internal fixation of left periprosthetic distal femur fracture. We will follow with you and await medical clearance for the above surgery.
--- NOTE | 2019-01-15 15:41 | Pharmacy Report ---
Glycemic Control Consultation - Date of Service January 15, 2019 - Scope Scope: Glycemic Pharmacist consulted by Dr [] on [date] for glycemic control and to write orders per [facility] inpatient glycemic control protocol - Objective Weight: 73.3 kg Accuchecks BSG (last 24hrs): 01/15/19 01/15/19 01/15/19 05:22 09:17 11:17 Glucose 554 H* POC Glucose 386 H* 367 H* 01/15/19 11:19 Glucose POC Glucose 359 H* Laboratory Data (last 24hrs): 01/15/19 05:22 Potassium 3.4 L Carbon Dioxide 36 H Anion Gap 6.0 Creatinine 1.12 Est Cr Clr Drug Dosing 50.7 Beta-Hydroxybutyric Acd 2.98 H - Recent Pertinent Medications Outpatient Anti-diabetic Regimen: * Lantus 40 units HS * Novolog TID per sliding scale * A1c = 11 % on 12/12/18 Risk Factors for Insulin Resistance: * Diet: T2DM - Assessment & Plan Assessment & Plan: ASSESSMENT: * 53 y/o F with multiple co-morbidities and metastatic cancer currently admitted with L femur fracture and possible ortho surgery tomorrow. * BSG on admission = 554 and 359 at lunch time. * Basal Lantus ordered this AM based on home dose. * Novolog CF and CR ordered based on weight and between a stress of 2 and 3. * Patient ordered to be NPO at midnight. Will change Novolog checks to q4h at midnight. PLAN FOR INPATIENT GLYCEMIC CONTROL: * Basal insulin * Lantus 40 units this AM * Bolus insulin * NovoLog per scale ACHS; will change to q4hrs while NPO * Goal Range: Low 110 mg/dL - High 140 mg/dL * Correction Factor: 25 mg/dL/unit * Nutritional / Prandial insulin per carb ratio of 1 unit per 8 grams CHO consumed * Please note that the plan above was derived based on current level of insulin resistance and hospital stress. These recommendations are appropriate for inpatient admission only. Plan of care upon discharge will need to be reassessed to avoid potential outpatient hypo/hyperglycemia. Thank you.
--- NOTE | 2019-01-15 16:57 | Anesthesiology Consultation ---
Date of Service January 15, 2019 Assessment & Plan Chart Review Chart Review: Patient NOT seen in Pre Admission Testing Consults Requested medical & cardiac ASA ASA4 History Surgery Operation Date: 01/16/19 07:00 Proposed Procedures p Left Distal Periprosthetic Fracture Open Reduction Internal Fixation - Claude Riggins DO Height/Weight Height: 5 ft Weight: 73.3 kg Allergies Allergy/AdvReac Type Severity Reaction Status Date / Time daptomycin Allergy Severe SHORTNESS Verified 01/15/19 06:43 OF BREATH Iodinated Contrast- Oral and Allergy Severe Anaphylaxis Verified 01/15/19 06:43 IV Dye bee venom protein (honey bee) Allergy Intermediate HIVES Verified 01/15/19 06:43 clindamycin Allergy Intermediate HIVES Verified 01/15/19 06:43 Sulfa (Sulfonamide Allergy Intermediate BACTRIM-HIV Verified 01/15/19 06:43 Antibiotics) ES trimethoprim Allergy Intermediate HIVES Verified 01/15/19 06:43 vancomycin Allergy Intermediate RASH Verified 01/15/19 06:43 dulaglutide AdvReac Severe BRAND-TRULICITY, Verified 01/15/19 06:43 SEVERE GI UPSET, CONSTIPATION Medications Home Medications Medication Instructions Recorded Confirmed Last Taken Breo Ellipta 1 inh INHALATION DAILY MDD 1 dose 06/11/18 01/15/19 11/06/18 in 24 hours Novolog PenFill U-100 Insulin 1 sliding scale dose SUBCUT TID 06/11/18 01/15/19 11/16/18 08:00 4 units albuterol sulfate [Ventolin HFA] 2 - 4 puff INHALATION Q6H PRN 06/11/18 01/15/19 11/06/18 levothyroxine [Levoxyl] 1,200 mcg PO QAM 06/11/18 01/15/19 11/16/18 loratadine 10 mg PO DAILY 06/11/18 01/15/19 11/16/18 magnesium oxide 400 mg PO DAILY 06/11/18 01/15/19 11/16/18 hydrocortisone [Proctosol HC] [address] HS PRN #30 gm 07/31/18 01/15/19 Unknown metoprolol succinate 25 mg PO DAILY 09/25/18 01/15/19 11/16/18 ranitidine HCl [Zantac] 150 mg PO BID 09/25/18 01/15/19 11/16/18 potassium chloride 20 meq PO QAM 11/16/18 01/15/19 11/16/18 digoxin 125 mcg tablet 0.125 mg PO DAILY 11/28/18 01/15/19 Unknown warfarin 5 mg tablet 5 mg PO QPM 12/12/18 01/15/19 Unknown acetaminophen 500 mg PO Q4 PRN 01/15/19 01/15/19 Unknown calcium carbonate-mag hydroxid 2 tab PO Q6H PRN 01/15/19 01/15/19 Unknown [Rolaids] furosemide 40 mg PO BID 01/15/19 01/15/19 Unknown insulin glargine [Lantus Solostar 30 unit SUBCUT DAILY 01/15/19 01/15/19 Unknown U-100 Insulin] omeprazole 40 mg PO DAILY 01/15/19 01/15/19 Unknown psyllium husk [Fiber-Caps 0.52 g PO DAILY 01/15/19 01/15/19 Unknown (psyllium husk)] spironolactone 12.5 mg PO DAILY 01/15/19 01/15/19 Unknown sucralfate 1 g PO ACHS 01/15/19 01/15/19 Unknown trazodone 50 mg PO HS PRN 01/15/19 01/15/19 Unknown Active Medications Generic Name Dose Route Start Last Admin Trade Name Freq PRN Reason Stop Dose Admin Insulin Aspart 0 units 01/15/19 12:00 01/15/19 13:57 Novolog Flexpen SC 01/15/19 23:59 12 units ACHS ELIZABETH Administration Insulin Glargine 40 units 01/15/19 12:30 01/15/19 14:02 Lantus Solostar Pen SC 01/15/19 23:59 40 units 1230 ELIZABETH Administration Levothyroxine Sodium 1,200 mcg 01/15/19 10:45 01/15/19 12:47 Synthroid PO 02/14/19 10:44 1,200 mcg QAM ELIZABETH Administration Loratadine 10 mg 01/15/19 10:30 01/15/19 12:47 Claritin PO 02/14/19 10:29 10 mg DAILY ELIZABETH Administration Metoprolol Succinate 25 mg 01/15/19 10:30 01/15/19 12:48 Toprol Xl PO 02/14/19 10:29 25 mg DAILY ELIZABETH Administration Morphine Sulfate 4 mg 01/15/19 09:56 01/15/19 10:35 Morphine Sulfate IV 01/29/19 09:55 4 mg Q4 PRN Administration Pain Pantoprazole Sodium 40 mg 01/15/19 10:30 01/15/19 12:47 Protonix PO 02/14/19 10:29 40 mg DAILY ELIZABETH Administration Potassium Chloride 20 meq 01/15/19 10:45 01/15/19 12:48 Klor-Con M10 PO 02/14/19 10:44 20 meq QAM ELIZABETH Administration Ranitidine HCl 150 mg 01/15/19 10:30 01/15/19 12:48 Zantac PO 02/14/19 10:29 150 mg BID ELIZABETH Administration Spironolactone 12.5 mg 01/15/19 10:30 01/15/19 12:48 Aldactone PO 02/14/19 10:29 12.5 mg DAILY ELIZABETH Administration Sucralfate 1 gm 01/15/19 11:30 01/15/19 12:47 Carafate Tab PO 02/14/19 11:29 1 gm ACHS ELIZABETH Administration Past Medical History Medical History Demand ischemia Hypomagnesemia DVT prophylaxis Medical non-compliance Acute exacerbation of CHF (congestive heart failure) (Acute) Hypothyroidism (Acute) 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 difficile colitis DM II (diabetes mellitus, type II), controlled H/O: lung cancer Left s/p L VATS HTN (hypertension) Hypothyroid Metastatic colon cancer in female lung mets Morbid obesity ANA (obstructive sleep apnea) Past Family History Family History Other Coronary heart disease DM II (diabetes mellitus, type II), controlled Past Surgical History Surgical History History of cardiac cath H/O carpal tunnel repair H/O total hysterectomy History of colostomy reversal S/P T&A (status post tonsillectomy and adenoidectomy) S/P colectomy S/P debridement Abdomen S/P total knee arthroplasty Bilateral Past Anesthesia History No Hx of Anesthesia Complications and No Family Hx of Anesthesia Complications History of PONV No Motion Sickness Screening History of Motion Sickness: No Social History Smoking Status: Never smoker Do You Dip or Chew Tobacco: No Hx Alcohol Use: No Hx Substance Use: No substance use type: does not use Exercise / Class Metabolic Activity III < 4 Walking/Shop/Light housework Physical Exam Vital Signs Last Vital Signs Temp 36.4 C L 01/15/19 15:28 Pulse 104 H 01/15/19 15:28 Resp 20 01/15/19 15:28 BP 150/95 H 01/15/19 15:28 Pulse Ox 95 01/15/19 15:28 Testing Electrocardiogram Date: 01/15/19 Findings: + AFIB @ (Afib at 74 w/PVC's;Low voltage QRS;Anterolateral infarct,age ?, w/ST and T wave abnl.) Chest X-Ray Date: 01/15/19 Findings: + NAD and + cardiomegaly multiple pulmonary nodules Echocardiogram Date: 11/17/18 EF: 35 LV Function: dysfunctional (moderate) RWMA: + hypokinetic (globally) RV-moderately dilated;Moderately decreased function; RA-moderately dilated; VD-[id number] Cardiac Catheterization Date: 11/26/08 Findings: + normal angiographically normal coronaries Laboratory Results 01/15/19 05:22 01/15/19 05:22 PT 32.2 Seconds (9.0-12.0) H 01/15/19 06:52 INR 3.4 (0.9-1.1) H 01/15/19 06:52 APTT 33.8 Seconds (21.0-31.0) H 01/15/19 06:52 Urine Color Yellow 01/15/19 07:40 Urine Appearance Clear (Clear) 01/15/19 07:40 Urine pH 6.5 (4.5-7.5) 01/15/19 07:40 Ur Specific Sumpter 1.030 (1.000-1.030) 01/15/19 07:40 Urine Protein Negative (Negative) 01/15/19 07:40 Urine Glucose (UA) 3+ (Negative) H 01/15/19 07:40 Urine Ketones Negative (Negative) 01/15/19 07:40 Urine Nitrite Negative (Negative) 01/15/19 07:40 Ur Leukocyte Esterase Negative (Negative) 01/15/19 07:40 01/15/19 01/15/19 01/15/19 11:19 11:17 09:17 POC Glucose 359 H* 367 H* 386 H*
[2019-01-15] MEDS: DIGOXIN 0.125 MG TAB PO SCH (19:01)
[2019-01-16] MEDS ORDERED: SODIUM CHLORIDE 0.9% 1000ML 1,000 ML IV SCH ×2 (01:00→21:00)
[2019-01-16] MEDS: INSULIN ASPART 100 UNITS/ML 3 ML PEN SC SCH ×6 (02:16→23:53)
[2019-01-16 07:11] LABS: Basophils # (auto) 0.01 K/uL (0-0.2); Basophils % (auto) 0.1 %; Eosinophils # (auto) 0.25 K/uL (0-0.5); Eosinophils % (auto) 3.1 %; Hematocrit (blood only) 40.6 % (37-47); Hemoglobin 13.2 g/dL (12.0-16.0); Immature Granulocytes # (auto) 0.03 K/uL (0.00-0.02); Immature Granulocytes % (auto) 0.4 %; Lymphocytes # (auto) 1.92 K/uL (1.2-3.4); Mean Corpuscular Hgb Conc 32.5 g/dL (32-36); Mean Corpuscular Volume 87.5 fL (80-100); Mean Platelet Volume 9.7 fL (7.4-10.4); Monocytes # (auto) 0.87 K/uL (0.11-0.59); Monocytes % (auto) 10.9 %; Neutrophils # (auto) 4.93 K/uL (1.4-6.5); Neutrophils % (auto) 61.5 %; Platelet Count 173 K/uL (130-400); RDW Coefficient of Variation 19.8 % (11.5-14.5); RDW Standard Deviation 63.2 fL (36.4-46.3); Red Blood Count 4.64 M/uL (4.2-5.4); White Blood Count 8.01 K/uL (4.8-10.8)
[2019-01-16 07:24] LABS: INR 1.6 (0.9-1.1); Partial Thromboplastin Ratio 1.1; Prothrombin Time 16.1 Seconds (9.0-12.0)
[2019-01-16 07:42] LABS: Albumin Level 2.2 gm/dl (3.4-5.0); BUN Creatinine Ratio 17.8 (10-20); Calcium 9.3 mg/dl (8.5-10.1); Creatinine Clr Calc Pharmacy 62.4 ml/min; Est GFR (African American) 82.3; Potassium 4.5 mmol/L (3.5-5.1)
[2019-01-16 07:44] LABS: Albumin Globulin Ratio 0.6 (0.9-2); Globulin 3.7 gm/dl (2.5-4.0); Total Protein 5.9 gm/dl (6.4-8.2)
[2019-01-16] MEDS: MoRPHine SULFATE 4 MG/ML 1 ML CARP\\VIAL IV PRN ×2 (08:13→13:16)
[2019-01-16] MEDS ORDERED: PHYTONADIONE 2.5 MG in SODIUM CHLORIDE 0.9% 50 ML IV ONE (08:45)
[2019-01-16] MEDS: SUCRALFATE 1 GM TAB PO SCH ×4 (09:10→21:35)
[2019-01-16] MEDS: METOPROLOL SUCC 25MG EXT REL TAB PO SCH (09:58)
[2019-01-16] MEDS: LORATADINE 10 MG TAB PO SCH (09:58)
[2019-01-16] MEDS: LEVOTHYROXINE SODIUM 200 MCG TABLET PO SCH (09:59)
[2019-01-16] MEDS: PANTOprazole 40 MG TAB PO SCH (10:00)
[2019-01-16] MEDS: POTASSIUM CHLORIDE 10 MEQ TABCR PO SCH (10:00)
[2019-01-16] MEDS: SPIRONOLACTONE 25 MG TAB PO SCH (10:01)
--- NOTE | 2019-01-16 10:29 | Orthopedic Progress Note ---
Date of Service January 16, 2019 Assessment & Plan (1) Periprosthetic fracture around internal prosthetic knee joint: This morning's INR was 1.6. Another dose of vitamin K was given per medicine service. Another INR will be drawn at noon. Plan for ORIF of left femur fracture if INR continues to come down. Patient seen and examined, agree with above assessment plan, INR currently 1.5 we will proceed with surgical intervention. The risk benefits and complications of procedure were explained to the patient and family, who I spoke to over the phone Jose Luis Joana, these include however not limited to infections, blood clots, acute blood loss, injury to surrounding nerves, bowel, vessels, soft tissue, chronic pain, arthrofibrosis, nonunion, malunion, failure of the hardware, need for repeat surgery, cardiac and pulmonary events and . The patient and wish to proceed with surgical intervention and informed consent was obtained, verbal consent obtained from Jose Luis Bernard. Subjective 52 yo F with h/o Afib DM II, HTN, HLD, Hypothyroidism, Asthma, ANA, CPAP, obesity, depression, diastolic CHF, metastatic colon CA - colectomy w/ ostomy 10/18, ostomy reversal 11/18 s/p chemotherapy. Patient presents today with his tory of mechanical fall. Patient got up in middle of night to urinate, and in the process of getting out of the bed, lost her balance when and fell sideways injuring her left leg in the process. Patient currently sitting up in bed. Still using her CPAP this morning. She is awake and answers questions appropriately. She has no overt complaints at this time. Discussed that she was going to have surgery today pending her next INR lab draw. Patient understands. Physical Exam Physical Exam: Left lower extremity is in a posterior splint. It is elevated on one pillow. Splint is left intact. Left foot is warm to the touch and has good capillary refill < 2 seconds. She states she is has some numbness in the foot itself. She has good range of motion of the left ankle and toes. Results & Data Vital Signs (Past 12 Hours) Vital Signs Temp Pulse Pulse Resp BP Pulse Ox 01/16/19 07:42 36.8 C 72 18 108/72 97 01/16/19 04:00 98 01/16/19 02:00 96 01/16/19 00:50 72 18 98 01/15/19 23:13 36.9 C 72 14 106/73 94
[2019-01-16 12:41] LABS: INR 1.5 (0.9-1.1); Prothrombin Time 15.2 Seconds (9.0-12.0)
[2019-01-16] MEDS ORDERED: INSULIN GLARGINE SOLOSTAR 100 UNITS/ML 3 ML PEN SC SCH ×2 (14:00→21:00)
[2019-01-16] MEDS ORDERED: fentaNYL citrate 100 MCG/2 ML VIAL ONE ×2 (14:16→16:32)
[2019-01-16] MEDS ORDERED: ONDANSETRON INJ 2 MG/ML 2 ML VIAL ONE (14:16)
[2019-01-16] MEDS ORDERED: DEXAMETHASONE SOD INJ 4 MG/ML VIAL ONE (14:16)
[2019-01-16] MEDS ORDERED: PROPOFOL IV EMULSION 10 MG/ML 20 ML VIAL IV ONE (14:16)
[2019-01-16] MEDS ORDERED: SUCCINYLCHOLINE CHLORIDE 20 MG/ML 10 ML VIAL ONE (14:16)
[2019-01-16] MEDS ORDERED: LIDOCAINE HCL 2% 2 ML VIAL/AMP(20MG/ML) INFIL ONE (14:16)
--- NOTE | 2019-01-16 14:37 | Pharmacy Report ---
Pharmacy Glycemic Short Note 2 - Date of Service January 16, 2019 - Glycemic Short BSG Results (Last 24 hours): 01/15/19 01/15/19 01/15/19 13:18 13:19 17:02 Glucose POC Glucose 389 H* 368 H* 243 H 01/15/19 01/15/19 01/16/19 20:14 23:39 04:48 Glucose POC Glucose 156 H 79 106 H 01/16/19 01/16/19 01/16/19 06:00 07:00 11:59 Glucose 114 H POC Glucose 107 H 140 H OUTPATIENT ANTIDIABETIC REGIMEN: * Lantus 40 units HS * Novolog TID ASSESSMENT: * Patient received 71 units insulin yesterday, 40 units were basal. Changed to NPO status last evening. * Fasting blood sugar this morning was 114 mg/dL. * Anticipate decreased insulin needs today due to continued NPO status * Patient going to the OR this evening to repair femur fracture. * Adding on carb coverage in case a diet is ordered later tonight. PLAN FOR INPATIENT GLYCEMIC CONTROL: * Hold outpatient oral diabetes medications * Basal insulin * Give a one-time lantus dose of 20 units at 1400. This is a 50% decrease from yesterday's basal dose due to patient being NPO. * Scale set for tonight: BSG <140: Give 0 units BSG 140-180: Give 5 units BSG >180: Give 10 units * Bolus insulin * NovoLog per scale ACHS or Q6hrs while NPO * Goal Range: Low 110 mg/dL - High 140 mg/dL * Correction Factor: 25 mg/dL/unit * Nutritional / Prandial insulin per carb ratio of 1 unit per 9 grams CHO consumed
[2019-01-16] MEDS ORDERED: BACITRACIN INJ 50,000 UNIT VIAL ONE (14:52)
[2019-01-16] MEDS ORDERED: ROPIVACAINE 0.5% HCL/PF 150 MG, BUPIVACAINE 0.5% MPF 30 ML, EPINEPHrine 30MG/30ML (OR U... INFIL SCH (15:00)
[2019-01-16] MEDS ORDERED: CEFAZOLIN 2000MG 2,000 MG/15 ML SYR IV ONE (15:05)
[2019-01-16] MEDS ORDERED: fentaNYL citrate 100 MCG/2 ML VIAL IV PRN (15:13)
[2019-01-16] MEDS ORDERED: ePHEDrine sulfate 50 MG/ML AMP IV PRN (15:13)
[2019-01-16] MEDS ORDERED: ONDANSETRON INJ 2 MG/ML 2 ML VIAL IV PRN ×2 (15:13→19:52)
[2019-01-16] MEDS ORDERED: ATROPINE SULFATE 0.1 MG/ML 10ML SYR IV PRN (15:13)
[2019-01-16] MEDS ORDERED: MoRPHine SULFATE 10 MG/ML CARP/VIAL IV PRN (15:13)
--- NOTE | 2019-01-16 15:14 | Hospitalist Progress Note ---
Date of Service January 16, 2019 Assessment & Plan (1) Femur fracture, left: Patient present with a distal left femur fracture due to mechanical fall. - Orthopedics consulted. - ORIF on 01/16. - Pain control as needed (2) Diabetes mellitus, type II: Hyperglycemic on arrival blood sugar > 500. A1c was 11.0% in 11/2018, indicating poor control. - Basal insulin and sliding scale per glycemic pharmacist - By 01/16, blood sugars were in better control - 80-160 (3) A-fib: Afib on arrival, asymptomatic. Anticoagulated on warfarin at home. - Rate-controlled at present - Continued metoprolol & digoxin - INR 3.4 on arrival, vitamin K 2.5mg administered. - Held warfarin initially for surgery. - On 01/16, INR down to 1.5; will proceed with surgery (4) Systolic CHF: Not in exacerbation, does not appear volume overloaded. Likely mildly hypovolemic from her hyperglycemia; however, baseline weight from 11/2018 was 70 kg and she is 73 kg on admission. Echo from 11/18/18 showed reduced EF 35-40%. - Hold fluids & diuretics at this time - Restart Lasix after surgery & once sugars are controlled. (5) Colon carcinoma metastatic to multiple sites: S/p colectomy w/ ostomy in 10/18 & ostomy reversal in 11/18. Previously on FOLFOX, but had reaction. Then completed CPT-11, 5-FU, leucovorin, and bevacizumab. S/p Avastin therapy. - Outpatient f/u with oncology (6) Hypothyroidism: - Continue Synthroid (7) Hypertension: BP presently 150/100. - Continue home metoprolol & spironolactone - Lasix held prior to surgery; patient is likely mildly hypovolemic from her uncontrolled sugars (8) ANA (obstructive sleep apnea): - Cpap ordered (9) Asthma: No wheezing or shortness of breath. - Continue home inhalers (10) GERD (gastroesophageal reflux disease): - Continue ranitidine, omeprazole (11) DVT prophylaxis: SCDs, TEDS ordered - INR as above Subjective Somewhat drowsy this morning, and in some amount of pain. Reports no fevers/chills, chest pain, shortness of breath, abdominal pain, nausea, or vomiting. Review of Systems Constitutional: no fever, no chills and no sweats Eyes: no diplopia Ear, Nose, Mouth, Throat: no ear trauma, no nasal discharge and no dental pain Respiratory: no cough, no chest congestion and no dyspnea Cardiovascular: no chest pain, no dyspnea on exertion, no palpitations and no syncope Gastrointestinal: no abdominal pain, no belching, no constipation, no diarrhea/loose stools, no blood in stools and no melena Musculoskeletal: + joint pain (Knee); no back pain and no muscle weakness Integumentary: no rash, no skin ulcer and no erythema Neurologic: no generalized weakness, no loss of sensation, no numbness and no paresthesia Psychiatric: no depression and no anxiety Endocrine: no fatigue, no polydipsia and no polyphagia Physical Exam Constitutional: WD/WN, vitals as above + obese; no acute distress Eyes: PERRL and EOM intact bilaterally ENMT: external ear and nose normal, oropharynx normal Neck: trachea midline, no thyromegaly Respiratory: normal respiratory effort; no respiratory distress and no cough Auscultation: no diminished lung sounds and no wheezes Gastrointestinal (Abdomen): normal bowel sounds, soft, nontender, no hepatosplenomegaly Skin: no rashes, warm and dry Neurologic: PERRL, EOMI, accommodation nl, no face palsy, no dysarthria CN's II-XI intact bilaterally (grossly), moves all extremities and awake Psychiatric: Orientation: alert and oriented x 3 Results & Data Vital Signs (Past 12 Hours) Vital Signs Temp Pulse Resp BP Pulse Ox 01/16/19 14:44 37.1 C 83 18 111/55 L 94 01/16/19 07:42 36.8 C 72 18 108/72 97 01/16/19 04:00 98 (1) A-fib Atrial fibrillation type: chronic Qualified Code(s): I48.2 - Chronic atrial fibrillation (2) Hypothyroidism Hypothyroidism type: unspecified Qualified Code(s): E03.9 - Hypothyroidism, unspecified (3) Asthma Asthma severity: unspecified severity Asthma persistence: intermittent Asthma complication type: uncomplicated Qualified Code(s): J45.20 - Mild intermittent asthma, uncomplicated (4) GERD (gastroesophageal reflux disease) Esophagitis presence: without esophagitis Qualified Code(s): K21.9 - Gastro- esophageal reflux disease without esophagitis
[2019-01-16] MEDS ORDERED: DOXYCYCLINE HYCLATE 100 MG in DEXTROSE 5% 100 ML IV STA (15:20)
[2019-01-16] MEDS ORDERED: DOXYCYCLINE HYCLATE 100 MG in DEXTROSE 5% 100 ML IV ONE (16:10)
--- NOTE | 2019-01-16 16:11 | Procedure Note ---
Procedure Note Date of Service January 16, 2019 Radial arterial line placed in OR 6 in preparation for right knee surgery with Dr. Alexandra. First attempt in left wrist with return of pulsatile blood, but unable to thread catheter. Right wrist prepped with chlorhexidine and draped with sterile towels. Site infiltrated with 2 cc of 1% lidocaine. 20 G angiocath placed under sterile technique utilizing sterile gloves, surgical hats and masks. Catheter threaded using seldinger technique with return of pulsatile, bright red blood. Site covered with occlusive dressing and taped in place. Waveform consistent with correct arterial placement. After placement, fingers of procedural hand had normal perfusion. Patient tolerated procedure well without complications. Coding
[2019-01-16] MEDS ORDERED: ETOMIDATE 2 MG/ML 20 ML VIAL IV ONE (16:25)
[2019-01-16] MEDS ORDERED: ROCURONIUM BROMIDE 10 MG/ML 5 ML VIAL ONE (16:25)
[2019-01-16] MEDS ORDERED: INSULIN ASPART 100 UNITS/ML 3 ML PEN SC SCH ×2 (18:00)
--- NOTE | 2019-01-16 18:01 | Fluoroscopy Report ---
FL femur LT 2V CLINICAL HISTORY: LEFT DISTAL FEMUR ORIF COMPARISON STUDY: 01/15/2019 FLUOROSCOPY TIME: 1.5 minutes. NUMBER OF FLUOROSCOPIC IMAGES: 3 FINDINGS: 3 intraoperative fluoroscopic spot images demonstrate internal fixation of a periprosthetic distal femoral fracture with a lateral metallic plate and multiple screws. IMPRESSION: Fluoroscopic spot images demonstrating internal fixation of a periprosthetic distal femo ral fracture with a plate and screws. Electronically signed by: Cameron Browning M.D. 01/16/2019 5:59 PM
--- NOTE | 2019-01-16 18:03 | Post Operative Brief Note ---
Immediate Post Op Note v1 Date of Surgery January 16, 2019 Pre & Post Diagnosis Operation Date: 01/16/19 07:00 Pre-Op Diagnosis: Left Femur Fracture Post-Op Diagnosis: Left Femur Fracture Procedure Operation Date: 01/16/19 07:00 Actual Procedures p Left Distal Periprosthetic Fracture Open Reduction Internal Fixation(Left) - Claude Riggins DO Surgeon Claude Riggins DO Hair And Makeup Designer Tomer Coulter Estimated Blood Loss 80 Findings Consistent with Post-Op Diagnosis Fluids 300 cc LR Specimens none Drains Hirsch Catheter (remains in place from floor) and Hemovac Drain Anesthesia Type General Complications none Disposition Disposition: Recovery Room Overlapping Procedure I was present for: the critical portions of procedure. I was immediately available: during the entire case. Back up surgeon: was not required during procedure.
--- NOTE | 2019-01-16 19:05 | XRay Report ---
XR femur LT 2V routine CLINICAL HISTORY: post op, ORIF distal femur COMPARISON: 01/15/2019 DISCUSSION: There is been internal fixation of a periprosthetic distal femoral fracture with a latera l metallic plate and multiple screws. There is 3.4 mm of posterior displacement of the distal fragmen t. Overlying skin livan and surgical drains are evident. IMPRESSION: Internally fixated distal femoral periprosthetic fracture Electronically signed by: Cameron Browning M.D. 01/16/2019 7:04 PM
--- NOTE | 2019-01-16 19:16 | Anesthesiology Progress Note ---
Date of Service January 16, 2019 Anesthesia Post Procedure Vital Signs Vital Signs: Temp Pulse Pulse Pulse Pulse Resp BP 01/16/19 19:01 98.2 F 86 19 01/16/19 19:00 83 18 01/16/19 18:57 87 19 101/61 01/16/19 18:55 88 19 01/16/19 18:50 82 17 112/75 01/16/19 18:45 85 16 113/75 01/16/19 18:41 82 19 116/75 01/16/19 18:40 83 21 01/16/19 18:35 81 17 01/16/19 18:31 91 H 21 132/61 01/16/19 18:30 116 H 26 H 01/16/19 18:28 97.3 F L 94 H 90 19 133/115 H 01/16/19 14:44 98.8 F 83 18 01/16/19 07:42 98.2 F 72 18 01/16/19 04:00 01/16/19 02:00 01/16/19 00:50 72 18 01/15/19 23:13 98.4 F 72 14 01/15/19 22:13 78 18 01/15/19 20:36 99.3 F 77 18 BP Pulse Ox 01/16/19 19:01 105/53 L 97 01/16/19 19:00 97 01/16/19 18:57 96 01/16/19 18:55 97 01/16/19 18:50 98 01/16/19 18:45 98 01/16/19 18:41 98 01/16/19 18:40 98 01/16/19 18:35 100 01/16/19 18:31 93 01/16/19 18:30 88 L 01/16/19 18:28 132/61 75 L 01/16/19 14:44 111/55 L 94 01/16/19 07:42 108/72 97 01/16/19 04:00 98 01/16/19 02:00 96 01/16/19 00:50 98 01/15/19 23:13 106/73 94 01/15/19 22:13 97 01/15/19 20:36 119/77 99 Pain Intensity Left Knee: Pain Intensity: 0 Notes Mental Status: alert / awake / arousable and participated in evaluation Patient Amnestic to Procedure: Yes Nausea / Vomiting: adequately controlled Pain: adequately controlled Airway Patency, RR, SpO2: stable & adequate BP & HR: stable & adequate Hydration State: stable & adequate Anesthetic Complications: no major complications apparent and Pt Satisfied with anesthetic care
[2019-01-16] MEDS ORDERED: NALOXONE HCL 0.4 MG/1 ML VIAL/CARP IV PRN (19:52)
[2019-01-16] MEDS ORDERED: BISACODYL 10 MG SUPP PR PRN (19:52)
[2019-01-16] MEDS ORDERED: MAGNESIUM HYDROXIDE SUSP 30 ML UDC PO PRN (19:52)
[2019-01-16] MEDS ORDERED: HYDROmorphone INJ 0.5 MG/0.5 ML SYR IV PRN (19:52)
[2019-01-16] MEDS ORDERED: METOCLOPRAMIDE HCL INJ 5 MG/ML 2 ML VIAL IV PRN (19:52)
[2019-01-16] MEDS ORDERED: Nursing to Pharmacy Communication ONE (20:11)
[2019-01-16] MEDS ORDERED: INSULIN GLARGINE SOLOSTAR 100 UNITS/ML 3 ML PEN SC STA (20:49)
--- NOTE | 2019-01-16 20:50 | Orthopedic Progress Note ---
Date of Service January 16, 2019 Assessment & Plan (1) Periprosthetic fracture around internal prosthetic knee joint: s/p ORIF left distal femur -doxy x24 -DVT ppx - SCDs, TEDS, lovenox-->coumadin -NWB LLE -KI LLE -PT/OT when medically stable -PO XR demonstrates well aligned well fixed orthopedic implant, well aligned fracture -am labs -monitor HMV drains Subjective Post Operative Progress Note Patient seen in PACU, comfortable, still waking up from general anesthesia. Review of Systems Review of Systems: All systems reviewed & are unremarkable except as noted in HPI & below Constitutional: as per Subjective / HPI Physical Exam Physical Exam: LLE exam limited secondary to patient still waking up from anesthesia +2 DP pulse, compartments soft NT, dressing CDI, HMV drains intact. actively moving toes Constitutional: WD/WN, vitals as above Results & Data Vital Signs (Past 12 Hours) Vital Signs Temp Pulse Pulse Pulse Resp BP BP 01/16/19 20:43 37.1 C 94 H 18 01/16/19 20:15 37.4 C 97 H 20 01/16/19 19:45 37.4 C 94 H 14 111/75 01/16/19 19:26 85 15 105/53 L 01/16/19 19:25 91 H 14 01/16/19 19:21 83 14 100/66 01/16/19 19:20 89 14 01/16/19 19:15 89 16 112/59 L 01/16/19 19:10 86 15 108/67 01/16/19 19:05 87 14 105/58 L 01/16/19 19:01 36.8 C 82 86 16 105/53 L 01/16/19 19:00 83 18 01/16/19 18:57 87 19 101/61 01/16/19 18:55 88 19 01/16/19 18:50 82 17 112/75 01/16/19 18:45 85 16 113/75 01/16/19 18:41 82 19 116/75 01/16/19 18:40 83 21 01/16/19 18:35 81 17 01/16/19 18:31 91 H 21 132/61 01/16/19 18:30 116 H 26 H 01/16/19 18:28 36.3 C L 94 H 90 19 133/115 H 04/18/19 14:44 37.1 C 83 18 BP Pulse Ox 01/16/19 20:43 91/53 L 95 01/16/19 20:15 112/74 95 01/16/19 19:45 95 01/16/19 19:26 97 01/16/19 19:25 96 01/16/19 19:21 98 01/16/19 19:20 96 01/16/19 19:15 96 01/16/19 19:10 97 01/16/19 19:05 97 01/16/19 19:01 105/53 L 97 01/16/19 19:00 97 01/16/19 18:57 96 01/16/19 18:55 97 01/16/19 18:50 98 01/16/19 18:45 98 01/16/19 18:41 98 01/16/19 18:40 98 01/16/19 18:35 100 01/16/19 18:31 93 01/16/19 18:30 88 L 01/16/19 18:28 132/61 75 L 01/16/19 14:44 111/55 L 94
[2019-01-16] MEDS: DIGOXIN 0.125 MG TAB PO SCH (21:31)
[2019-01-16] MEDS: LACTULOSE SYRUP 30 GM/45 ML UDP PO SCH ×2 (21:32→21:54)
[2019-01-16] MEDS: SENNA 8.6 MG TAB PO SCH (21:35)
[2019-01-16] MEDS: ACETAMINOPHEN 500 MG TAB PO SCH (21:35)
[2019-01-16] MEDS: DOCUSATE SODIUM 100 MG CAP PO SCH (21:35)
[2019-01-17] MEDS: DOXYCYCLINE HYCLATE 100 MG in DEXTROSE 5% 100 ML IV SCH ×2 (03:33→15:17)
[2019-01-17] MEDS: INSULIN ASPART 100 UNITS/ML 3 ML PEN SC SCH ×6 (04:00→23:53)
[2019-01-17] MEDS: ACETAMINOPHEN 500 MG TAB PO SCH ×3 (05:55→21:40)
--- NOTE | 2019-01-17 06:31 | Emergency Department Note ---
ED Visit Note Physician Almond Blancher Operator Supervision Note: I interviewed and examined the patient. Discussed with Mauri Medina PA-C and agree with findings and plan as documented in the note. The left leg was placed in to a posterior splint as she was not able to straighten the leg sufficiently for a knee immobilizer. Pt did receive IV fentanyl for pain control. Pt required IV hydration and IV insulin bolus of 10 units for glucose >500. Pt was discussed with both orthopedics and medicine for further management. Documented By: Suzy Butterfield MD .
[2019-01-17] MEDS: SUCRALFATE 1 GM TAB PO SCH ×4 (08:02→20:44)
--- NOTE | 2019-01-17 08:33 | Orthopedic Progress Note ---
Date of Service January 17, 2019 Assessment & Plan (1) Periprosthetic fracture around internal prosthetic knee joint: POD#1 s/p ORIF left distal femur -doxy x24 -DVT ppx - SCDs, TEDS, lovenox-->coumadin 5mg daily -NWB LLE -KI LLE -PT/OT when medically stable -PO XR demonstrates well aligned well fixed orthopedic implant, well aligned fracture -am labs - hgb 11.7, INR 1.4 -monitor HMV drains - 50cc Patient seen, agree with above assessment and plan. Subjective POD#1 Patient seen resting in bed, comfortable, no complaints. Pain well controlled. Denies chest pain, sob, n/v. Review of Systems Review of Systems: All systems reviewed & are unremarkable except as noted in HPI & below Physical Exam Physical Exam: Dressing c/d/i, immobilizer in place. Toes mobile, sensation and N/V status intact. No calf tenderness. LLE NVSI +EHL/FHL/TA/GS SILT grossly, +2 DP pulse, compartments soft NT, dressing cdi. HMV drain intact Constitutional: WD/WN, vitals as above Results & Data Vital Signs (Past 12 Hours) Vital Signs Temp Pulse Pulse Pulse Resp BP BP 01/17/19 07:52 37 C 69 16 91/60 L 01/17/19 04:00 36.7 C 85 17 95/63 L 01/16/19 23:44 37.2 C 80 17 95/58 L 01/16/19 22:22 36.9 C 76 18 90/59 L 01/16/19 21:38 37.3 C 83 20 92/55 L 01/16/19 21:31 81 01/16/19 21:00 73 20 01/16/19 20:43 37.1 C 94 H 18 91/53 L Pulse Ox 01/17/19 07:52 97 01/17/19 04:00 93 01/16/19 23:44 94 01/16/19 22:22 96 01/16/19 21:38 97 01/16/19 21:31 01/16/19 21:00 96 01/16/19 20:43 95
[2019-01-17 08:55] LABS: Basophils # (auto) 0.01 K/uL (0-0.2); Basophils % (auto) 0.1 %; Hemoglobin 11.7 g/dL (12.0-16.0); Immature Granulocytes # (auto) 0.03 K/uL (0.00-0.02); Immature Granulocytes % (auto) 0.3 %; Lymphocytes # (auto) 0.81 K/uL (1.2-3.4); Lymphocytes % (auto) 9.2 %; Mean Corpuscular Hgb Conc 32.5 g/dL (32-36); Mean Corpuscular Volume 87.8 fL (80-100); Mean Platelet Volume 9.5 fL (7.4-10.4); Monocytes # (auto) 0.81 K/uL (0.11-0.59); Monocytes % (auto) 9.2 %; Neutrophils # (auto) 7.11 K/uL (1.4-6.5); Neutrophils % (auto) 81.2 %; Platelet Count 143 K/uL (130-400); RDW Coefficient of Variation 19.8 % (11.5-14.5); RDW Standard Deviation 63.4 fL (36.4-46.3); White Blood Count 8.77 K/uL (4.8-10.8)
[2019-01-17 09:18] LABS: INR 1.4 (0.9-1.1); Partial Thromboplastin Ratio 1.1; Partial Thromboplastin Time 29.5 Seconds (21.0-31.0); Prothrombin Time 13.7 Seconds (9.0-12.0)
[2019-01-17] MEDS: LEVOTHYROXINE SODIUM 200 MCG TABLET PO SCH (09:22)
[2019-01-17 09:28] LABS: Albumin Level 2.1 gm/dl (3.4-5.0); Calcium 9.2 mg/dl (8.5-10.1); Creatinine Clr Calc Pharmacy 59.2 ml/min; Est GFR (African American) 77.2; Est GFR (Non-African American) 66.6; Magnesium 1.9 mg/dl (1.8-2.4); Potassium 4.7 mmol/L (3.5-5.1)
[2019-01-17] MEDS ORDERED: INSULIN GLARGINE SOLOSTAR 100 UNITS/ML 3 ML PEN SC STA (09:28)
[2019-01-17] MEDS: LORATADINE 10 MG TAB PO SCH (09:28)
[2019-01-17] MEDS: PANTOprazole 40 MG TAB PO SCH (09:29)
[2019-01-17] MEDS: METOPROLOL SUCC 25MG EXT REL TAB PO SCH (09:29)
[2019-01-17] MEDS: ENOXAPARIN INJ 40 MG/0.4 ML SYR SQ SCH (09:30)
[2019-01-17] MEDS: MULTIVITAMIN TAB PO SCH (09:31)
[2019-01-17] MEDS: DOCUSATE SODIUM 100 MG CAP PO SCH ×2 (09:32→20:43)
[2019-01-17] MEDS: SPIRONOLACTONE 25 MG TAB PO SCH (09:32)
[2019-01-17] MEDS: LACTULOSE SYRUP 30 GM/45 ML UDP PO SCH ×2 (09:33→20:44)
[2019-01-17] MEDS: POTASSIUM CHLORIDE 10 MEQ TABCR PO SCH (09:33)
[2019-01-17 09:35] LABS: Albumin Globulin Ratio 0.6 (0.9-2); Bilirubin,Total 4.6 mg/dl (0.2-1); Globulin 3.5 gm/dl (2.5-4.0); Phosphorus 2.9 mg/dl (2.5-4.9); Total Protein 5.6 gm/dl (6.4-8.2)
[2019-01-17] MEDS: OXYCODONE HCL IR 5 MG TAB (IMMEDIATE RELEASE) PO PRN (11:40)
--- NOTE | 2019-01-17 11:49 | Hospitalist Progress Note ---
Date of Service January 17, 2019 Assessment & Plan (1) Femur fracture, left: Patient present with a distal left femur fracture due to mechanical fall. - Orthopedics consulted. - ORIF on 01/[address] Riggins. - No weight-bearing on LLE - Left leg in brace - PT/OT (2) Diabetes mellitus, type II: Hyperglycemic on arrival blood sugar >500. A1c was 11.0% in 11/2018, indicating poor control. - Basal insulin and sliding scale per glycemic pharmacist - By 01/16, blood sugars were in better control - 80-160 (3) A-fib: Afib on arrival, asymptomatic. Anticoagulated on warfarin at home. Chads- Vasc of 4, meaning she definitely needs anticoagulation, but does not need bridging. - Rate-controlled at present - Continued metoprolol & digoxin - INR 3.4 on arrival, vitamin K 2.5mg administered. - Restarted warfarin on 01/17 (4) Systolic CHF: Not in exacerbation, does not appear volume overloaded. Likely mildly hypovolemic from her hyperglycemia; however, baseline weight from 11/2018 was 70 kg and she is 73 kg on admission. Echo from 11/18/18 showed reduced EF 35-40%. - Hold fluids & diuretics at this time - Restart Lasix after surgery & once sugars are controlled. (5) Colon carcinoma metastatic to multiple sites: S/p colectomy w/ ostomy in 10/18 & ostomy reversal in 11/18. Previously on FOLFOX, but had reaction. Then completed CPT-11, 5-FU, leucovorin, and bevacizumab. S/p Avastin therapy. - Outpatient f/u with oncology (6) Hypothyroidism: - Continue Synthroid (7) Hypertension: BP was initially 150/100. Now 90/50 - 110/75. - Continue home metoprolol & spironolactone - Lasix held prior to surgery; restarted on 01/18 (8) ANA (obstructive sleep apnea): - Cpap ordered (9) Asthma: No wheezing or shortness of breath. - Continue home inhalers (10) GERD (gastroesophageal reflux disease): - Continue ranitidine, omeprazole (11) DVT prophylaxis: Lovenox & warfarin Subjective No major complaints today. Less knee pain. Reports no fevers/chills, chest pain, shortness of breath, abdominal pain, nausea, or vomiting. Review of Systems Musculoskeletal: + joint pain (Knee); no back pain and no muscle weakness Physical Exam Constitutional: WD/WN, vitals as above + obese; no acute distress Eyes: PERRL and EOM intact bilaterally ENMT: external ear and nose normal, oropharynx normal Neck: trachea midline, no thyromegaly Respiratory: normal respiratory effort; no respiratory distress and no cough Auscultation: no diminished lung sounds and no wheezes Gastrointestinal (Abdomen): normal bowel sounds, soft, nontender, no hepatosplenomegaly Skin: no rashes, warm and dry Neurologic: PERRL, EOMI, accommodation nl, no face palsy, no dysarthria CN's II-XI intact bilaterally (grossly), moves all extremities and awake Psychiatric: Orientation: alert and oriented x 3 Results & Data Vital Signs (Past 12 Hours) Vital Signs Temp Pulse Resp BP Pulse Ox 01/17/19 11:41 36.9 C 81 16 112/75 97 01/17/19 10:58 97 01/17/19 07:52 37 C 69 16 91/60 L 97 01/17/19 04:00 36.7 C 85 17 95/63 L 93 (1) A-fib Atrial fibrillation type: chronic Qualified Code(s): I48.2 - Chronic atrial fibrillation (2) Hypothyroidism Hypothyroidism type: unspecified Qualified Code(s): E03.9 - Hypothyroidism, unspecified (3) Asthma Asthma severity: unspecified severity Asthma persistence: intermittent Asthma complication type: uncomplicated Qualified Code(s): J45.20 - Mild intermittent asthma, uncomplicated (4) GERD (gastroesophageal reflux disease) Esophagitis presence: without esophagitis Qualified Code(s): K21.9 - Gastro- esophageal reflux disease without esophagitis
[2019-01-17] MEDS: WARFARIN SOD 5 MG TAB PO SCH (16:06)
[2019-01-17] MEDS: DIGOXIN 0.125 MG TAB PO SCH (16:07)
[2019-01-17] MEDS: FUROSEMIDE 40 MG TAB PO SCH (16:15)
--- NOTE | 2019-01-17 16:26 | Pharmacy Report ---
Pharmacy Glycemic Short Note 2 - Date of Service January 17, 2019 - Glycemic Short BSG Results (Last 24 hours): 01/16/19 01/16/19 01/16/19 18:36 20:15 23:52 Glucose POC Glucose 151 H 168 H 223 H 01/17/19 01/17/19 01/17/19 03:59 08:25 08:29 Glucose 205 H POC Glucose 237 H 234 H 01/17/19 12:06 Glucose POC Glucose 221 H OUTPATIENT ANTIDIABETIC REGIMEN: * Lantus 40 units HS * Novolog TID ASSESSMENT: 01-17: * Patient received total 25 units of insulin yesterday, of which 13 units were basal - was NPO until last evening * Steroids given in OR (ortho x 1 ) - fasting BSG elevated at 234 mg/dL - tightened CR this am, will trend * Lunchtime BSG unchanged but slightly lower at 221 mg/dL - will continue same, past admissions suggest patient trends down quickly with insulin * Will add scale for Lantus this evening - other admissions she requires significant decrease in Lantus dosing vs. home dosing (noncompliance issue also) Prior admissions suggest Lantus 25 units daily was appropriate 01-16: * Patient received 71 units insulin yesterday, 40 units were basal. Changed to NPO status last evening. * Fasting blood sugar this morning was 114 mg/dL. * Anticipate decreased insulin needs today due to continued NPO status * Patient going to the OR this evening to repair femur fracture. * Adding on carb coverage in case a diet is ordered later tonight. PLAN FOR INPATIENT GLYCEMIC CONTROL: * Hold outpatient oral diabetes medications * Basal insulin * Lantus 13 units this am, then BID dosing * Lantus BID BSG <140: Give 10 units BSG 140-180: Give 15 units BSG >180: Give 20 units * Bolus insulin - added overnight checks / tightened * NovoLog per scale ACHS or Q6hrs while NPO * Goal Range: Low 110 mg/dL - High 140 mg/dL * Correction Factor: 20 mg/dL/unit * Nutritional / Prandial insulin per carb ratio of 1 unit per 5 grams CHO consumed
[2019-01-17] MEDS: INSULIN GLARGINE SOLOSTAR 100 UNITS/ML 3 ML PEN SC SCH (20:39)
[2019-01-17] MEDS: SENNA 8.6 MG TAB PO SCH (20:43)
[2019-01-18] MEDS: OXYCODONE HCL IR 5 MG TAB (IMMEDIATE RELEASE) PO PRN ×3 (00:21→23:21)
[2019-01-18] MEDS: INSULIN ASPART 100 UNITS/ML 3 ML PEN SC SCH ×5 (04:19→21:09)
[2019-01-18] MEDS: ACETAMINOPHEN 500 MG TAB PO SCH ×3 (05:50→21:10)
[2019-01-18] MEDS: FUROSEMIDE 40 MG TAB PO SCH ×2 (08:45→16:32)
[2019-01-18] MEDS: SUCRALFATE 1 GM TAB PO SCH ×4 (08:45→21:06)
[2019-01-18] MEDS: MULTIVITAMIN TAB PO SCH (08:46)
[2019-01-18] MEDS: PANTOprazole 40 MG TAB PO SCH (08:46)
[2019-01-18] MEDS: LEVOTHYROXINE SODIUM 200 MCG TABLET PO SCH (08:46)
[2019-01-18] MEDS: METOPROLOL SUCC 25MG EXT REL TAB PO SCH (08:46)
[2019-01-18] MEDS: LORATADINE 10 MG TAB PO SCH (08:48)
[2019-01-18] MEDS: DOCUSATE SODIUM 100 MG CAP PO SCH ×2 (08:48→21:06)
[2019-01-18] MEDS: POTASSIUM CHLORIDE 10 MEQ TABCR PO SCH (08:49)
[2019-01-18] MEDS: SPIRONOLACTONE 25 MG TAB PO SCH (08:49)
[2019-01-18] MEDS: ENOXAPARIN INJ 40 MG/0.4 ML SYR SQ SCH (08:50)
[2019-01-18] MEDS: LACTULOSE SYRUP 30 GM/45 ML UDP PO SCH ×2 (08:50→21:06)
[2019-01-18] MEDS: INSULIN GLARGINE SOLOSTAR 100 UNITS/ML 3 ML PEN SC SCH ×2 (08:54→21:06)
[2019-01-18 08:55] LABS: Basophils # (auto) 0.02 K/uL (0-0.2); Basophils % (auto) 0.2 %; Eosinophils # (auto) 0.19 K/uL (0-0.5); Eosinophils % (auto) 2.2 %; Hematocrit (blood only) 38.8 % (37-47); Hemoglobin 12.3 g/dL (12.0-16.0); Immature Granulocytes # (auto) 0.01 K/uL (0.00-0.02); Immature Granulocytes % (auto) 0.1 %; Lymphocytes % (auto) 23.3 %; Mean Corpuscular Hgb Conc 31.7 g/dL (32-36); Mean Platelet Volume 10.4 fL (7.4-10.4); Monocytes # (auto) 0.88 K/uL (0.11-0.59); Monocytes % (auto) 10.2 %; Platelet Count 181 K/uL (130-400); RDW Coefficient of Variation 19.8 % (11.5-14.5); RDW Standard Deviation 64.5 fL (36.4-46.3); Red Blood Count 4.36 M/uL (4.2-5.4)
[2019-01-18 09:08] LABS: INR 1.5 (0.9-1.1); Partial Thromboplastin Ratio 1.1; Partial Thromboplastin Time 29.1 Seconds (21.0-31.0); Prothrombin Time 14.9 Seconds (9.0-12.0)
[2019-01-18 09:13] LABS: Albumin Level 2.2 gm/dl (3.4-5.0); BUN Creatinine Ratio 25.8 (10-20); Calcium 9.5 mg/dl (8.5-10.1); Creatinine Clr Calc Pharmacy 53.6 ml/min; Est GFR (African American) 68.5; Est GFR (Non-African American) 59.1; Potassium 4.4 mmol/L (3.5-5.1)
[2019-01-18 09:20] LABS: Albumin Globulin Ratio 0.6 (0.9-2); Bilirubin,Total 3.6 mg/dl (0.2-1); Globulin 3.6 gm/dl (2.5-4.0); Total Protein 5.8 gm/dl (6.4-8.2)
--- NOTE | 2019-01-18 10:12 | Orthopedic Progress Note ---
Date of Service January 18, 2019 Assessment & Plan (1) Periprosthetic fracture around internal prosthetic knee joint: POD#2 s/p ORIF left distal femur -doxy x24 -DVT ppx - SCDs, TEDS, lovenox-->coumadin 5mg daily -NWB LLE -KI LLE -PT/OT when medically stable -PO XR demonstrates well aligned well fixed orthopedic implant, well aligned fracture -monitor HMV drains - 0 cc last shift. Subjective POD#2 Patient seen resting in bed, comfortable, no complaints. Pain well controlled. Denies chest pain, sob, n/v. Physical Exam Physical Exam: Immobilizer in place. Dressing c/d/i, no calf tenderness. Toes are mobile. Sensation intact. Drain in place. Results & Data Vital Signs (Past 12 Hours) Vital Signs Temp Pulse Pulse Resp BP Pulse Ox 01/18/19 08:00 36.4 C L 72 14 102/70 97 01/17/19 23:59 36.9 C 73 17 114/71 97
--- NOTE | 2019-01-18 14:30 | Hospitalist Progress Note ---
Date of Service January 18, 2019 Assessment & Plan (1) Femur fracture, left: Patient present with a distal left femur fracture due to mechanical fall. - Orthopedics consulted. - ORIF on 01/[address] Riggins. - No weight-bearing on LLE - Left leg in brace - PT/OT - Possible [facility] (2) Diabetes mellitus, type II: Hyperglycemic on arrival blood sugar >500. A1c was 11.0% in 11/2018, indicating poor control. - Basal insulin and sliding scale per glycemic pharmacist - By 01/16, blood sugars were in better control - 80-160 (3) A-fib: Afib on arrival, asymptomatic. Anticoagulated on warfarin at home. Chads- Vasc of 4, meaning she definitely needs anticoagulation, but does not need bridging. - Rate-controlled at present - Continued metoprolol & digoxin - INR 3.4 on arrival, vitamin K 2.5mg administered. - Restarted warfarin on 01/17 (4) Systolic CHF: Not in exacerbation, does not appear volume overloaded. Likely mildly hypovolemic from her hyperglycemia; however, baseline weight from 11/2018 was 70 kg and she is 73 kg on admission. Echo from 11/18/18 showed reduced EF 35-40%. - Restarted home Lasix 40mg PO BID on 01/18 (5) Colon carcinoma metastatic to multiple sites: S/p colectomy w/ ostomy in 10/18 & ostomy reversal in 11/18. Previously on FOLFOX, but had reaction. Then completed CPT-11, 5-FU, leucovorin, and bevacizumab. S/p Avastin therapy. - Outpatient f/u with oncology (6) Hypothyroidism: Is on an enormous Synthroid dose. This has been verified with the patient, her outpatient notes, and pharmacy. Unclear why she needs such a high dose. 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 - Continue Synthroid 1,200 mcg daily (7) Hypertension: BP was initially 150/100. Now 90/50 - 110/75. - Continue home metoprolol & spironolactone - Lasix held prior to surgery; restarted on 01/18 (8) ANA (obstructive sleep apnea): - Cpap ordered (9) Asthma: No wheezing or shortness of breath. - Continue home inhalers (10) GERD (gastroesophageal reflux disease): - Continue ranitidine, omeprazole (11) DVT prophylaxis: Warfarin - Lovenox until therapeutic Subjective Doing well. Minimal pain in the left leg when she is lying. More with standing. Reports no fevers/chills, chest pain, shortness of breath, abdominal pain, nausea, or vomiting. Review of Systems Musculoskeletal: + joint pain (Knee); no back pain and no muscle weakness Physical Exam Constitutional: WD/WN, vitals as above + obese; no acute distress Eyes: PERRL and EOM intact bilaterally ENMT: external ear and nose normal, oropharynx normal Neck: trachea midline, no thyromegaly Respiratory: normal respiratory effort; no respiratory distress and no cough Auscultation: no diminished lung sounds and no wheezes Gastrointestinal (Abdomen): normal bowel sounds, soft, nontender, no hepatospl enomegaly Skin: no rashes, warm and dry Neurologic: PERRL, EOMI, accommodation nl, no face palsy, no dysarthria CN's II-XI intact bilaterally (grossly), moves all extremities and awake Psychiatric: Orientation: alert and oriented x 3 Results & Data Vital Signs (Past 12 Hours) Vital Signs Temp Pulse Resp BP Pulse Ox 01/18/19 11:50 36.5 C 74 14 118/78 95 01/18/19 11:45 36.9 C 68 14 112/80 93 01/18/19 08:00 36.4 C L 72 14 102/70 97 (1) A-fib Atrial fibrillation type: chronic Qualified Code(s): I48.2 - Chronic atrial fibrillation (2) Hypothyroidism Hypothyroidism type: unspecified Qualified Code(s): E03.9 - Hypothyroidism, unspecified (3) Asthma Asthma severity: unspecified severity Asthma persistence: intermittent Asthma complication type: uncomplicated Qualified Code(s): J45.20 - Mild intermittent asthma, uncomplicated (4) GERD (gastroesophageal reflux disease) Esophagitis presence: without esophagitis Qualified Code(s): K21.9 - Gastro- esophageal reflux disease without esophagitis
[2019-01-18] MEDS: WARFARIN SOD 5 MG TAB PO SCH (16:31)
[2019-01-18] MEDS: DIGOXIN 0.125 MG TAB PO SCH (16:32)
[2019-01-18] MEDS: SENNA 8.6 MG TAB PO SCH (21:05)
[2019-01-19] MEDS: ACETAMINOPHEN 500 MG TAB PO SCH ×3 (05:29→21:10)
[2019-01-19 06:50] LABS: Hematocrit (blood only) 37.3 % (37-47); Mean Corpuscular Hgb Conc 32.2 g/dL (32-36); Mean Corpuscular Volume 87.8 fL (80-100); Mean Platelet Volume 9.6 fL (7.4-10.4); Platelet Count 180 K/uL (130-400); RDW Coefficient of Variation 19.9 % (11.5-14.5); RDW Standard Deviation 63.1 fL (36.4-46.3); Red Blood Count 4.25 M/uL (4.2-5.4); White Blood Count 6.48 K/uL (4.8-10.8)
[2019-01-19 07:03] LABS: INR 2.1 (0.9-1.1); Prothrombin Time 20.1 Seconds (9.0-12.0)
[2019-01-19 07:21] LABS: BUN Creatinine Ratio 22.6 (10-20); Calcium 9.1 mg/dl (8.5-10.1); Creatinine Clr Calc Pharmacy 51.2 ml/min; Est GFR (African American) 64.7; Est GFR (Non-African American) 55.9; Potassium 4.6 mmol/L (3.5-5.1)
[2019-01-19] MEDS: LEVOTHYROXINE SODIUM 200 MCG TABLET PO SCH (07:26)
[2019-01-19] MEDS: SUCRALFATE 1 GM TAB PO SCH ×4 (07:27→21:09)
--- NOTE | 2019-01-19 08:11 | Orthopedic Progress Note ---
Date of Service January 19, 2019 Assessment & Plan (1) Periprosthetic fracture around internal prosthetic knee joint: POD#3 s/p ORIF left distal femur -DVT ppx - SCDs, TEDS, lovenox-->coumadin 5mg daily -NWB LLE -continue knee immobilizer -PT/OT when medically stable -D/C planning-Patient would like to go to [facility] Patient is orthopedically stable. Ortho will sign off at this time. Please call [phone] for an appointment with Dr. Riggins 12-14 days post operatively Subjective POD#3 Patient seen resting in bed, comfortable, no complaints. Pain well controlled. Denies chest pain, sob, n/v. Physical Exam Physical Exam: Dressing is c/d/i. Hemovac has been removed, dressing has been changed. Immobilizer in place. No calf tenderness. Toes mobile. N/v status and sensation intact. Results & Data Vital Signs (Past 12 Hours) Vital Signs Temp Pulse Pulse Resp BP BP Pulse Ox 01/19/19 07:17 36.7 C 70 14 106/71 94 01/18/19 23:40 75 18 97 01/18/19 23:26 36.7 C 86 17 137/81 95
[2019-01-19] MEDS: MULTIVITAMIN TAB PO SCH (08:47)
[2019-01-19] MEDS: LORATADINE 10 MG TAB PO SCH (08:47)
[2019-01-19] MEDS: METOPROLOL SUCC 25MG EXT REL TAB PO SCH (08:47)
[2019-01-19] MEDS: PANTOprazole 40 MG TAB PO SCH (08:47)
[2019-01-19] MEDS: SPIRONOLACTONE 25 MG TAB PO SCH (08:48)
[2019-01-19] MEDS: FUROSEMIDE 40 MG TAB PO SCH ×2 (08:48→17:15)
[2019-01-19] MEDS: POTASSIUM CHLORIDE 10 MEQ TABCR PO SCH (08:48)
[2019-01-19] MEDS: DIGOXIN 0.125 MG TAB PO SCH (08:48)
[2019-01-19] MEDS: DOCUSATE SODIUM 100 MG CAP PO SCH ×2 (08:49→21:06)
[2019-01-19] MEDS: ENOXAPARIN INJ 40 MG/0.4 ML SYR SQ SCH (08:49)
[2019-01-19] MEDS: INSULIN ASPART 100 UNITS/ML 3 ML PEN SC SCH ×4 (08:52→21:10)
[2019-01-19] MEDS: INSULIN GLARGINE SOLOSTAR 100 UNITS/ML 3 ML PEN SC SCH ×2 (08:53→21:09)
[2019-01-19] MEDS: LACTULOSE SYRUP 30 GM/45 ML UDP PO SCH ×2 (09:00→21:10)
--- NOTE | 2019-01-19 12:32 | Pharmacy Report ---
Pharmacy Glycemic Short Note 2 - Date of Service January 19, 2019 - Glycemic Short BSG Results (Last 24 hours): 01/18/19 01/18/19 01/19/19 17:26 20:29 06:36 Glucose 131 H POC Glucose 140 H 214 H 01/19/19 01/19/19 08:11 11:59 Glucose POC Glucose 112 H 216 H OUTPATIENT ANTIDIABETIC REGIMEN: * Lantus 40 units HS * Novolog TID ASSESSMENT: * 53 yo F POD 3 s/p ORIF * AM fasting BSG appropriate - will continue same Lantus dose * Persistent trend with post-prandial BSG's increasing over the course of the day. Lunch BSG also elevated today to 216 mg/dL. Will tighten CHO ratio PLAN FOR INPATIENT GLYCEMIC CONTROL: * Basal insulin Lantus BID based on BSG BSG <140: Give 10 units BSG >=140: Give 15 units * Bolus insulin - added overnight checks / tightened * NovoLog per scale ACHS or Q6hrs while NPO * Goal Range: Low 120 mg/dL - High 150 mg/dL * Correction Factor: 20 mg/dL/unit * Nutritional / Prandial insulin per carb ratio of 1 unit per 4 grams CHO consumed
--- NOTE | 2019-01-19 15:13 | Hospitalist Progress Note ---
Date of Service January 19, 2019 Assessment & Plan (1) Femur fracture, left: Patient present with a distal left femur fracture due to mechanical fall. - ORIF on 01/[address] Riggins. - No weight-bearing on LLE - Left leg in brace - PT/OT - Possible [facility] - Insurance auth on Sunday (2) Diabetes mellitus, type II: Hyperglycemic on arrival blood sugar >500. A1c was 11.0% in 11/2018, indicating poor control. - Basal insulin and sliding scale per glycemic pharmacist - By 01/19, blood sugars were in better control - 80-210 (3) A-fib: Afib on arrival, asymptomatic. Anticoagulated on warfarin at home. Chads- Vasc of 4, meaning she definitely needs anticoagulation, but does not need bridging. - Rate-controlled at present - Continued metoprolol & digoxin - INR 3.4 on arrival, vitamin K 2.5mg administered. - Restarted warfarin on 01/17 - On 01/19, INR was already 2.1. I lowered her warfarin to 2 mg PO daily from her home 5mg as it seems like we would overshoot quickly with the 5mg dose. Possibly poor diet is contributing to quickly rising INR. (4) Systolic CHF: Not in exacerbation, does not appear volume overloaded. Likely mildly hypovolemic from her hyperglycemia; however, baseline weight from 11/2018 was 70 kg and she is 73 kg on admission. Echo from 11/18/18 showed reduced EF 35-40%. - Restarted home Lasix 40mg PO BID on 01/18 - Still appears euvolemic on exam. (5) Colon carcinoma metastatic to multiple sites: S/p colectomy w/ ostomy in 10/18 & ostomy reversal in 11/18. Previously on FOLFOX, but had reaction. Then completed CPT-11, 5-FU, leucovorin, and bevacizumab. S/p Avastin therapy. - Outpatient f/u with oncology (6) Hypothyroidism: Is on an enormous Synthroid dose. This has been verified with the patient, her outpatient notes, and pharmacy. Unclear why she needs such a high dose. 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 - Continue Synthroid 1,200 mcg daily (7) Hypertension: BP was initially 150/100. Now 90/50 - 110/75. - Continue home metoprolol & spironolactone - Lasix held prior to surgery; restarted on 01/18 (8) ANA (obstructive sleep apnea): - CPAP ordered (9) Asthma: No wheezing or shortness of breath. - Continue home inhalers (10) GERD (gastroesophageal reflux disease): - Continue ranitidine, omeprazole (11) DVT prophylaxis: Warfarin Subjective Feels well. Leg is aching, but otherwise doing well. No major complaints today. Reports no fevers/chills, chest pain, shortness of breath, abdominal pain, nausea, or vomiting. Review of Systems Musculoskeletal: + joint pain (Knee); no back pain and no muscle weakness Physical Exam Constitutional: WD/WN, vitals as above + obese; no acute distress Eyes: PERRL and EOM intact bilaterally ENMT: external ear and nose normal, oropharynx normal Neck: trachea midline, no thyromegaly Respiratory: normal respiratory effort; no respiratory distress and no cough Auscultation: no diminished lung sounds and no wheezes Gastrointestinal (Abdomen): normal bowel sounds, soft, nontender, no hepatosplenomegaly Skin: no rashes, warm and dry Neurologic: PERRL, EOMI, accommodation nl, no face palsy, no dysarthria CN's II-XI intact bilaterally (grossly), moves all extremities and awake Psychiatric: Orientation: alert and oriented x 3 Results & Data Vital Signs (Past 12 Hours) Vital Signs Temp Pulse Resp BP Pulse Ox 01/19/19 07:17 36.7 C 70 14 106/71 94 (1) A-fib Atrial fibrillation type: chronic Qualified Code(s): I48.2 - Chronic atrial fibrillation (2) Hypothyroidism Hypothyroidism type: unspecified Qualified Code(s): E03.9 - Hypothyroidism, unspecified (3) Asthma Asthma severity: unspecified severity Asthma persistence: intermittent Asthma complication type: uncomplicated Qualified Code(s): J45.20 - Mild intermittent asthma, uncomplicated (4) GERD (gastroesophageal reflux disease) Esophagitis presence: without esophagitis Qualified Code(s): K21.9 - Gastro- esophageal reflux disease without esophagitis
[2019-01-19] MEDS: OXYCODONE HCL IR 5 MG TAB (IMMEDIATE RELEASE) PO PRN (15:40)
[2019-01-19] MEDS: WARFARIN SOD 2 MG TAB PO SCH (15:41)
[2019-01-20] MEDS: OXYCODONE HCL IR 5 MG TAB (IMMEDIATE RELEASE) PO PRN ×2 (03:56→20:14)
[2019-01-20] MEDS: ACETAMINOPHEN 500 MG TAB PO SCH ×3 (05:11→20:58)
[2019-01-20 07:24] LABS: INR 2.8 (0.9-1.1); Prothrombin Time 27.1 Seconds (9.0-12.0)
[2019-01-20] MEDS: INSULIN ASPART 100 UNITS/ML 3 ML PEN SC SCH ×4 (08:49→20:50)
[2019-01-20] MEDS: INSULIN GLARGINE SOLOSTAR 100 UNITS/ML 3 ML PEN SC SCH ×2 (08:50→20:54)
[2019-01-20] MEDS: PANTOprazole 40 MG TAB PO SCH (08:55)
[2019-01-20] MEDS: DOCUSATE SODIUM 100 MG CAP PO SCH ×2 (08:55→20:45)
[2019-01-20] MEDS: METOPROLOL SUCC 25MG EXT REL TAB PO SCH (08:55)
[2019-01-20] MEDS: SPIRONOLACTONE 25 MG TAB PO SCH (08:56)
[2019-01-20] MEDS: FUROSEMIDE 40 MG TAB PO SCH ×2 (08:56→16:22)
[2019-01-20] MEDS: LACTULOSE SYRUP 30 GM/45 ML UDP PO SCH (08:57)
[2019-01-20] MEDS: SUCRALFATE 1 GM TAB PO SCH ×4 (08:57→20:45)
[2019-01-20] MEDS: POTASSIUM CHLORIDE 10 MEQ TABCR PO SCH (08:57)
[2019-01-20] MEDS: LORATADINE 10 MG TAB PO SCH (08:58)
[2019-01-20] MEDS: LEVOTHYROXINE SODIUM 200 MCG TABLET PO SCH (08:59)
[2019-01-20] MEDS: MULTIVITAMIN TAB PO SCH (08:59)
[2019-01-20] MEDS: WARFARIN SOD 2 MG TAB PO SCH (16:20)
[2019-01-20] MEDS: DIGOXIN 0.125 MG TAB PO SCH (16:24)
--- NOTE | 2019-01-20 16:32 | Operative Report ---
Post Operative Report Pre & Post Diagnosis Operation Date: 01/16/19 07:00 Pre-Op Diagnosis: Left Femur Fracture Post-Op Diagnosis: Left Femur Fracture Procedure Operation Date: 01/16/19 07:00 Actual Procedures p Left Distal Periprosthetic Fracture Open Reduction Internal Fixation(Left) - Claude Riggins DO Surgeon Claude Riggins DO Dye Colorist Dyer Tomer Coulter Estimated Blood Loss 80 Findings Consistent with Post-Op Diagnosis Specimens none Drains HNV x 2 Anesthesia Type General Indications Patient is an 53-year-old female with past medical history Afib DM II, HTN, HLD, Hypothyroidism, Asthma, ANA, CPAP, obesity, depression, diastolic CHF, metastatic colon CA - colectomy w/ ostomy 10/18, ostomy reversal 11/18 s/p chemotherapy who presents with complaints of left knee pain status post mechanical fall sustained on 01/15/19. Patient has history of left total knee arthroplasty by Dr. Mccoy. Seen at [facility], x-rays demonstrated displaced, left distal femur periprosthetic fracture. Patient denies numbness tingling the left lower extremity. Patient is community ambulator. Lives at home. I have indicated the patient for open reduction internal fixation of left distal femur secondary to left distal femur periprosthetic fracture. Total knee prosthesis appears intact grossly and well fixed. The risk benefits and complications of procedure were explained to the patient in detail which include however not limited to infections, acute blood loss, blood clots, injury to surrounding nerves, bone, soft tissue, vessels, arthrofibrosis, loss of function, chronic pain, nonunion, malunion, failure of the implants, need for additional surgery, cardiac and pulmonary events and . The patient and sister who was present at bedside wish to proceed with surgical intervention at this time and informed consent was obtained. Description of Procedure Following induction of adequate general anesthesia, the patient's left leg was prepped and draped in usual sterile manner. A well-padded sterile tourniquet was applied to the proximal aspect of the thigh. Utilizing c-arm fluoroscopy the fracture site was identified and marked. An esmarch was applied to the leg and tourniquet insufflated to 300mmHg. An incision was made at the level of the fracture along the lateral aspect of the femur. Subcutaneous tissue was sharply dissected, electrocautery was used for hemostasis. Fascia was incised throughout the length of the wound and the vastus lateralis was swept from the posterior iliotibial band with blunt dissection. Subperiosteal dissection was carried out to expose the femoral fracture. The lateral incision was extended both proximally and distally to allow for adequate exposure of the fracture site. Self-retainers were placed to aid in visualization. The fracture site was identified, found to be comminuted with many small fragments, the distal femur was well fixed to the femoral prosthesis. After the fracture site was identified and cleaned of any blood clots and debris using a combination of rotation and longitudinal traction, adequate reduction of the long portion of the fracture was achieved and held in place with K-wires. Fracture reduction and positioning was assessed under C-arm fluoroscopy. Gentle reduction was performed of the fracture site. Near anatomic fracture reduction was confirmed utilizing c-arm fluoroscopy. Next, a 6-hole distal femoral locking plate was placed about the lateral aspect of the femur. The distal locking guide was placed in the anterior and distal screw hole and held provisionally using a K- wire. Proximal fixation was obtained by placement of a single lohmann bone reduction clamp. Adequate positioning of the plate both in the distal and proximal aspects as well as anterior and posterior were assessed utilizing C-arm fluoroscopy. The plate was adequately seated onto the bone and in good alignment both proximal/distal, anterior/posterior. Next, I turned my attention to the distal aspect of the locking plate. Distal fixation was carried out utilizing 1-7.3mm x 70mm cannulated locking screw was placed followed by 1- 5.0mm x 70mm screw, 2-5.0x55mm screw and 2-5.0x20mm screws. Screw position was verified under C-arm fluoroscopy. Finally I turned my attention back to the proximal locking plate and 1- 4.5 cortex screw was placed followed by 2-5.0 x34mm locking screws were placed in the proximal aspect of the plate. Final positioning of the plate and screws was confirmed utilizing the c-arm fluoroscopy. The wound was copiously irrigated with sterile saline solution with bacitracin. The yanique-incisional soft tissue was injected utilizing [place] ortho mix which includes a combination of Ropivicaine 0.5% 150mg, Bupivicaine 0.5%/Epinephrine 1:200,000 30ml, Toradol 30mg, Dexamethasone 4mg, Ketamine 10mg, Clonidine 100mcg and NSS 30ml Orthomix solution. Fascia was closed using #1 Vicryl, subcutaneous tissue was closed using 2-0 Vicryl over a drain, and skin was closed with livan. Sterile dressing of xeroform, 4x4s, ABDs, webrill and maria fernanda wrap was applied. The tourniquet was deflated at 110 minutes. Patient was placed in a knee immobilizer at this time. Patient was awoken while in the OR and was transported to PACU in stable condition and was without apparent complications. The patient tolerated the procedure well. Due to the complex nature of the procedure, the entire surgery was performed with the operational assistance of Tomer Coulter PA-C. The zoning assistant, under direct supervision, was involved in the actual performance of all aspects of the surgical procedure including patient positioning, hemostasis, tissue retraction, instrument management and wound closure. I attest to the content of the Intraoperative Record and any orders documented therein. Any exceptions are noted below.
--- NOTE | 2019-01-20 22:50 | Hospitalist Progress Note ---
Date of Service January 20, 2019 Assessment & Plan (1) Femur fracture, left: Patient present with a distal left femur fracture due to mechanical fall. - ORIF on 01/[address] Riggins. - No weight-bearing on LLE - Left leg in brace - PT/OT - Possible [facility] - Insurance auth pending. (2) Diabetes mellitus, type II: Hyperglycemic on arrival blood sugar >500. A1c was 11.0% in 11/2018, indicating poor control. - Basal insulin and sliding scale per glycemic pharmacist -Appears to be controlled (3) A-fib: Afib on arrival, asymptomatic. Anticoagulated on warfarin at home. Chads- Vasc of 4, meaning she definitely needs anticoagulation, but does not need bridging. - Rate-controlled at present - Continued metoprolol & digoxin - INR 3.4 on arrival, vitamin K 2.5mg administered. - Restarted warfarin on 01/17 - On 01/19, INR was already 2.1. I lowered her warfarin to 2 mg PO daily from her home 5mg as it seems like we would overshoot quickly with the 5mg dose. Possibly poor diet is contributing to quickly rising INR. (4) Systolic CHF: Not in exacerbation, does not appear volume overloaded. Likely mildly hypovolemic from her hyperglycemia; however, baseline weight from 11/2018 was 70 kg and she is 73 kg on admission. Echo from 11/18/18 showed reduced EF 35-40%. - Restarted home Lasix 40mg PO BID on 01/18 - Still appears euvolemic on exam. (5) Colon carcinoma metastatic to multiple sites: S/p colectomy w/ ostomy in 10/18 & ostomy reversal in 11/18. Previously on FOLFOX, but had reaction. Then completed CPT-11, 5-FU, leucovorin, and bevacizumab. S/p Avastin therapy. - Outpatient f/u with oncology (6) Hypothyroidism: Is on an enormous Synthroid dose. This has been verified with the patient, her outpatient notes, and pharmacy. Unclear why she needs such a high dose. 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 - Continue Synthroid 1,200 mcg daily (7) Hypertension: BP was initially 150/100. Now 90/50 - 110/75. - Continue home metoprolol & spironolactone - Lasix held prior to surgery; restarted on 01/18 (8) ANA (obstructive sleep apnea): - CPAP ordered (9) Asthma: No wheezing or shortness of breath. - Continue home inhalers (10) GERD (gastroesophageal reflux disease): - Continue ranitidine, omeprazole (11) DVT prophylaxis: Warfarin Spent 35 minutes in management of patient. Subjective 53 yo female reports no new symptoms today. Patient is awaiting placement. Review of Systems Review of Systems: Musculoskeletal: + joint pain (Knee); no back pain and no muscle weakness Physical Exam Physical Exam: Constitutional: WD/WN, vitals as above + obese; no acute distress Eyes: PERRL and EOM intact bilaterally ENMT: external ear and nose normal, oropharynx normal Neck: trachea midline, no thyromegaly Respiratory: normal respiratory effort; no respiratory distress and no cough Auscultation: no diminished lung sounds and no wheezes Gastrointestinal (Abdomen): normal bowel sounds, soft, nontender, no hepatosplenomegaly Skin: no rashes, warm and dry Neurologic: PERRL, EOMI, accommodation nl, no face palsy, no dysarthria CN's II-XI intact bilaterally (grossly), moves all extremities and awake Psychiatric: Orientation: alert and oriented x 3 Results & Data Vital Signs (Past 12 Hours) Vital Signs Temp Pulse Pulse Resp BP Pulse Ox 01/20/19 16:24 80 01/20/19 15:11 37.2 C 72 18 101/66 94 (1) A-fib Atrial fibrillation type: chronic Qualified Code(s): I48.2 - Chronic atrial fibrillation (2) Hypothyroidism Hypothyroidism type: unspecified Qualified Code(s): E03.9 - Hypothyroidism, unspecified (3) GERD (gastroesophageal reflux disease) Esophagitis presence: without esophagitis Qualified Code(s): K21.9 - Gastro- esophageal reflux disease without esophagitis (4) Asthma Asthma complication type: uncomplicated Asthma persistence: intermittent Asthma severity: unspecified severity Qualified Code(s): J45.20 - Mild intermittent asthma, uncomplicated
[2019-01-21] MEDS: OXYCODONE HCL IR 5 MG TAB (IMMEDIATE RELEASE) PO PRN (04:22)
[2019-01-21] MEDS: MICONAZOLE NITRATE POWDER 43 GM EXT PRN ×2 (04:50→20:58)
[2019-01-21] MEDS: ACETAMINOPHEN 500 MG TAB PO SCH ×3 (06:13→21:08)
[2019-01-21] MEDS: INSULIN ASPART 100 UNITS/ML 3 ML PEN SC SCH ×4 (09:48→21:07)
[2019-01-21] MEDS: INSULIN GLARGINE SOLOSTAR 100 UNITS/ML 3 ML PEN SC SCH ×2 (09:49→20:56)
[2019-01-21] MEDS: LEVOTHYROXINE SODIUM 200 MCG TABLET PO SCH (09:53)
[2019-01-21] MEDS: SUCRALFATE 1 GM TAB PO SCH ×4 (09:54→20:57)
[2019-01-21] MEDS: LORATADINE 10 MG TAB PO SCH (09:54)
[2019-01-21] MEDS: PANTOprazole 40 MG TAB PO SCH (09:54)
[2019-01-21] MEDS: FUROSEMIDE 40 MG TAB PO SCH ×2 (09:55→16:53)
[2019-01-21] MEDS: MULTIVITAMIN TAB PO SCH (09:55)
[2019-01-21] MEDS: METOPROLOL SUCC 25MG EXT REL TAB PO SCH (09:55)
[2019-01-21] MEDS: DOCUSATE SODIUM 100 MG CAP PO SCH ×2 (09:55→20:58)
[2019-01-21] MEDS: POTASSIUM CHLORIDE 10 MEQ TABCR PO SCH (09:56)
[2019-01-21] MEDS: SPIRONOLACTONE 25 MG TAB PO SCH (09:56)
--- NOTE | 2019-01-21 13:13 | Pharmacy Report ---
Pharmacy Glycemic Short Note 2 - Date of Service January 21, 2019 - Glycemic Short BSG Results (Last 24 hours): 01/20/19 01/20/19 01/21/19 17:04 20:41 08:23 POC Glucose 129 H 158 H 90 01/21/19 12:18 POC Glucose 211 H OUTPATIENT ANTIDIABETIC REGIMEN: * Lantus 40 units HS * Novolog TID ASSESSMENT: * Ms. Bernard's BSGs over the previous 24hrs have been well controlled other than this afternoon's hyperglycemia: 211mg/dL. Likely attributable to carb-heavy breakfast. BSGs over the previous 24hrs: [id number]. She required 53 units of insulin yesterday, half basal-half correctional. * Will continue with standing insulin orders PLAN FOR INPATIENT GLYCEMIC CONTROL: * Basal insulin Lantus BID based on BSG BSG <140: Give 10 units BSG >=140: Give 15 units * Bolus insulin - added overnight checks / tightened * NovoLog per scale ACHS or Q6hrs while NPO * Goal Range: Low 120 mg/dL - High 150 mg/dL * Correction Factor: 20 mg/dL/unit * Nutritional / Prandial insulin per carb ratio of 1 unit per 4 grams CHO consumed
[2019-01-21] MEDS: DIGOXIN 0.125 MG TAB PO SCH (16:53)
[2019-01-21] MEDS: WARFARIN SOD 2 MG TAB PO SCH (16:54)
--- NOTE | 2019-01-21 22:13 | Hospitalist Progress Note ---
Date of Service January 21, 2019 Assessment & Plan (1) Femur fracture, left: Patient present with a distal left femur fracture due to mechanical fall. - ORIF on 01/[address] Riggins. - No weight-bearing on LLE - Left leg in brace - PT/OT - Insurance auth pending. (2) Diabetes mellitus, type II: Hyperglycemic on arrival blood sugar >500. A1c was 11.0% in 11/2018, indicating poor control. - Basal insulin and sliding scale per glycemic pharmacist -Appears to be controlled (3) A-fib: Afib on arrival, asymptomatic. Anticoagulated on warfarin at home. Chads- Vasc of 4, meaning she definitely needs anticoagulation, but does not need bridging. - Rate-controlled at present - Continued metoprolol & digoxin - INR 3.4 on arrival, vitamin K 2.5mg administered. - Restarted warfarin on 01/17 - On 01/19, INR was already 2.1. I lowered her warfarin to 2 mg PO daily from her home 5mg as it seems like we would overshoot quickly with the 5mg dose. Possibly poor diet is contributing to quickly rising INR. -INR is 2.8 on 01/20 (4) Systolic CHF: Not in exacerbation, does not appear volume overloaded. Likely mildly hypovolemic from her hyperglycemia; however, baseline weight from 11/2018 was 70 kg and she is 73 kg on admission. Echo from 11/18/18 showed reduced EF 35-40%. - Restarted home Lasix 40mg PO BID on 01/18 - Still appears euvolemic on exam. (5) Colon carcinoma metastatic to multiple sites: S/p colectomy w/ ostomy in 10/18 & ostomy reversal in 11/18. Previously on FOLFOX, but had reaction. Then completed CPT-11, 5-FU, leucovorin, and bevacizumab. S/p Avastin therapy. - Outpatient f/u with oncology (6) Hypothyroidism: Is on an enormous Synthroid dose. This has been verified with the patient, her outpatient notes, and pharmacy. Unclear why she needs such a high dose. 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 - Continue Synthroid 1,200 mcg daily (7) Hypertension: BP was initially 150/100. Now 90/50 - 110/75. - Continue home metoprolol & spironolactone - Lasix held prior to surgery; restarted on 01/18 (8) ANA (obstructive sleep apnea): - CPAP ordered (9) Asthma: No wheezing or shortness of breath. - Continue home inhalers (10) GERD (gastroesophageal reflux disease): - Continue ranitidine, omeprazole (11) DVT prophylaxis: Warfarin Spent 35 minutes in management of patient. Subjective Patient reports no new complaints. She is frustrated that she has not received insurance approval. Review of Systems Review of Systems: All systems reviewed & are unremarkable except as noted in HPI & below Physical Exam Physical Exam: Constitutional: WD/WN, vitals as above + obese; no acute distress Eyes: PERRL and EOM intact bilaterally ENMT: external ear and nose normal, oropharynx normal Neck: trachea midline, no thyromegaly Respiratory: normal respiratory effort; no respiratory distress and no cough Auscultation: no diminished lung sounds and no wheezes Gastrointestinal (Abdomen): normal bowel sounds, soft, nontender, no hepatosplenomegaly Skin: no rashes, warm and dry Neurologic: PERRL, EOMI, accommodation nl, no face palsy, no dysarthria CN's II-XI intact bilaterally (grossly), moves all extremities and awake Psychiatric: Orientation: alert and oriented x 3 Results & Data Vital Signs (Past 12 Hours) Vital Signs Temp Pulse Pulse Pulse Resp BP BP 01/21/19 22:10 86 16 01/21/19 16:55 86 102/64 01/21/19 16:53 86 01/21/19 15:11 36.9 C 73 17 97/62 L 01/21/19 12:24 79 16 105/60 Pulse Ox 01/21/19 22:10 97 01/21/19 16:55 01/21/19 16:53 01/21/19 15:11 95 01/21/19 12:24 97 (1) A-fib Atrial fibrillation type: chronic Qualified Code(s): I48.2 - Chronic atrial fibrillation (2) Hypothyroidism Hypothyroidism type: unspecified Qualified Code(s): E03.9 - Hypothyroidism, unspecified (3) Asthma Asthma severity: unspecified severity Asthma persistence: intermittent Asthma complication type: uncomplicated Qualified Code(s): J45.20 - Mild intermittent asthma, uncomplicated (4) GERD (gastroesophageal reflux disease) Esophagitis presence: without esophagitis Qualified Code(s): K21.9 - Gastro- esophageal reflux disease without esophagitis
[2019-01-22] MEDS: OXYCODONE HCL IR 5 MG TAB (IMMEDIATE RELEASE) PO PRN (02:08)
[2019-01-22] MEDS: ACETAMINOPHEN 500 MG TAB PO SCH ×3 (06:01→21:44)
[2019-01-22] MEDS: INSULIN ASPART 100 UNITS/ML 3 ML PEN SC SCH ×4 (09:25→21:47)
[2019-01-22] MEDS: INSULIN GLARGINE SOLOSTAR 100 UNITS/ML 3 ML PEN SC SCH ×2 (09:27→21:44)
[2019-01-22] MEDS: LORATADINE 10 MG TAB PO SCH (09:28)
[2019-01-22] MEDS: METOPROLOL SUCC 25MG EXT REL TAB PO SCH (09:28)
[2019-01-22] MEDS: DOCUSATE SODIUM 100 MG CAP PO SCH ×2 (09:28→21:44)
[2019-01-22] MEDS: MULTIVITAMIN TAB PO SCH (09:29)
[2019-01-22] MEDS: LEVOTHYROXINE SODIUM 200 MCG TABLET PO SCH (09:29)
[2019-01-22] MEDS: PANTOprazole 40 MG TAB PO SCH (09:29)
[2019-01-22] MEDS: SUCRALFATE 1 GM TAB PO SCH ×4 (09:29→21:43)
[2019-01-22] MEDS: SPIRONOLACTONE 25 MG TAB PO SCH (09:30)
[2019-01-22] MEDS: FUROSEMIDE 40 MG TAB PO SCH ×2 (09:30→16:40)
[2019-01-22] MEDS: POTASSIUM CHLORIDE 10 MEQ TABCR PO SCH (09:31)
[2019-01-22] MEDS: DIGOXIN 0.125 MG TAB PO SCH (15:48)
[2019-01-22] MEDS: WARFARIN SOD 2 MG TAB PO SCH (16:40)
--- NOTE | 2019-01-22 22:37 | Hospitalist Progress Note ---
Date of Service January 22, 2019 Assessment & Plan (1) Femur fracture, left: Patient present with a distal left femur fracture due to mechanical fall. - ORIF on 01/[address] Riggins. - No weight-bearing on LLE - Left leg in brace - PT/OT (2) Diabetes mellitus, type II: Hyperglycemic on arrival blood sugar >500. A1c was 11.0% in 11/2018, indicating poor control. - Basal insulin and sliding scale per glycemic pharmacist -Appears to be controlled (3) A-fib: Afib on arrival, asymptomatic. Anticoagulated on warfarin at home. Chads- Vasc of 4, meaning she definitely needs anticoagulation, but does not need bridging. - Rate-controlled at present - Continued metoprolol & digoxin - INR 3.4 on arrival, vitamin K 2.5mg administered. - Restarted warfarin on 01/17 - On 01/19, INR was already 2.1. I lowered her warfarin to 2 mg PO daily from her home 5mg as it seems like we would overshoot quickly with the 5mg dose. Possibly poor diet is contributing to quickly rising INR. -INR is 2.8 on 01/20 (4) Systolic CHF: Not in exacerbation, does not appear volume overloaded. Likely mildly hypovolemic from her hyperglycemia; however, baseline weight from 11/2018 was 70 kg and she is 73 kg on admission. Echo from 11/18/18 showed reduced EF 35-40%. - Restarted home Lasix 40mg PO BID on 01/18 - Still appears euvolemic on exam. (5) Colon carcinoma metastatic to multiple sites: S/p colectomy w/ ostomy in 10/18 & ostomy reversal in 11/18. Previously on FOLFOX, but had reaction. Then completed CPT-11, 5-FU, leucovorin, and bevacizumab. S/p Avastin therapy. - Outpatient f/u with oncology (6) Hypothyroidism: Is on an enormous Synthroid dose. This has been verified with the patient, her outpatient notes, and pharmacy. Unclear why she needs such a high dose. 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 - Continue Synthroid 1,200 mcg daily (7) Hypertension: BP was initially 150/100. Now 90/50 - 110/75. - Continue home metoprolol & spironolactone - Lasix held prior to surgery; restarted on 01/18 (8) ANA (obstructive sleep apnea): - CPAP ordered (9) Asthma: No wheezing or shortness of breath. - Continue home inhalers (10) GERD (gastroesophageal reflux disease): - Continue ranitidine, omeprazole (11) DVT prophylaxis: Warfarin Subjective Patient reports feeling well. Patient denies any new complaints. Review of Systems Review of Systems: Constitutional: no fever, no chills and no sweats Eyes: no diplopia Ear, Nose, Mouth, Throat: no ear trauma, no nasal discharge and no dental pain Respiratory: no cough, no chest congestion and no dyspnea Cardiovascular: no chest pain, no dyspnea on exertion, no palpitations and no syncope Gastrointestinal: no abdominal pain, no belching, no constipation, no diarrhea/loose stools, no blood in stools and no melena Musculoskeletal: + joint pain (Knee); no back pain and no muscle weakness Integumentary: no rash, no skin ulcer and no erythema Neurologic: no generalized weakness, no loss of sensation, no numbness and no paresthesia Psychiatric: no depression and no anxiety Endocrine: no fatigue, no polydipsia and no polyphagia Physical Exam Physical Exam: Constitutional: WD/WN, vitals as above + obese; no acute di stress Eyes: PERRL and EOM intact bilaterally ENMT: external ear and nose normal, oropharynx normal Neck: trachea midline, no thyromegaly Respiratory: normal respiratory effort; no respiratory distress and no cough Auscultation: no diminished lung sounds and no wheezes Gastrointestinal (Abdomen): normal bowel sounds, soft, nontender, no hepatosplenomegaly Skin: no rashes, warm and dry Neurologic: PERRL, EOMI, accommodation nl, no face palsy, no dysarthria CN's II-XI intact bilaterally (grossly), moves all extremities and awake Psychiatric: Orientation: alert and oriented x 3 Results & Data Vital Signs (Past 12 Hours) Vital Signs Temp Pulse Pulse Resp BP Pulse Ox 01/22/19 15:48 72 01/22/19 15:46 72 01/22/19 15:20 36.7 C 65 18 97/65 L 96 (1) A-fib Atrial fibrillation type: chronic Qualified Code(s): I48.2 - Chronic atrial fibrillation (2) Hypothyroidism Hypothyroidism type: unspecified Qualified Code(s): E03.9 - Hypothyroidism, unspecified (3) Asthma Asthma severity: unspecified severity Asthma persistence: intermittent Asthma complication type: uncomplicated Qualified Code(s): J45.20 - Mild intermittent asthma, uncomplicated (4) GERD (gastroesophageal reflux disease) Esophagitis presence: without esophagitis Qualified Code(s): K21.9 - Gastro- esophageal reflux disease without esophagitis
[2019-01-23] MEDS: OXYCODONE HCL IR 5 MG TAB (IMMEDIATE RELEASE) PO PRN ×2 (04:32→15:17)
[2019-01-23] MEDS: ACETAMINOPHEN 500 MG TAB PO SCH ×2 (05:47→13:56)
[2019-01-23] MEDS: FUROSEMIDE 40 MG TAB PO SCH ×2 (09:41→16:36)
[2019-01-23] MEDS: SUCRALFATE 1 GM TAB PO SCH ×3 (09:43→16:36)
[2019-01-23] MEDS: DOCUSATE SODIUM 100 MG CAP PO SCH (09:43)
[2019-01-23] MEDS: METOPROLOL SUCC 25MG EXT REL TAB PO SCH (09:43)
[2019-01-23] MEDS: LEVOTHYROXINE SODIUM 200 MCG TABLET PO SCH (09:44)
[2019-01-23] MEDS: SPIRONOLACTONE 25 MG TAB PO SCH (09:44)
--- NOTE | 2019-01-23 09:44 | Pharmacy Report ---
Pharmacy Glycemic Short Note 2 - Date of Service January 23, 2019 - Glycemic Short BSG Results (Last 24 hours): 01/22/19 01/22/19 01/22/19 12:06 17:16 21:22 POC Glucose 162 H 130 H 228 H 01/23/19 01/23/19 00:42 08:05 POC Glucose 77 130 H OUTPATIENT ANTIDIABETIC REGIMEN: * Lantus 40 units HS * Novolog TID ASSESSMENT: * Patient's blood sugar dropped early this morning to 77mg/dl and patient was symptomatic (jittery) - treated with OJ. * Will decrease Lantus dosing to prevent further hypoglycemia for patient. * No other changes, blood sugars otherwise well controlled. PLAN FOR INPATIENT GLYCEMIC CONTROL: * Basal insulin Lantus BID based on BSG - DECREASE: BSG <140: Give 7 units BSG >=140: Give 10 units * Bolus insulin - * NovoLog per scale ACHS or Q6hrs while NPO * Goal Range: Low 120 mg/dL - High 150 mg/dL * Correction Factor: 20 mg/dL/unit * Nutritional / Prandial insulin per carb ratio of 1 unit per 4 grams CHO consumed
[2019-01-23] MEDS: MULTIVITAMIN TAB PO SCH (09:45)
[2019-01-23] MEDS: PANTOprazole 40 MG TAB PO SCH (09:45)
[2019-01-23] MEDS: LORATADINE 10 MG TAB PO SCH (09:45)
[2019-01-23] MEDS: POTASSIUM CHLORIDE 10 MEQ TABCR PO SCH (09:46)
[2019-01-23] MEDS: INSULIN GLARGINE SOLOSTAR 100 UNITS/ML 3 ML PEN SC SCH (09:47)
[2019-01-23] MEDS: INSULIN ASPART 100 UNITS/ML 3 ML PEN SC SCH ×2 (09:48→13:55)
[2019-01-23] MEDS: DIGOXIN 0.125 MG TAB PO SCH (15:17)
[2019-01-23] MEDS: WARFARIN SOD 2 MG TAB PO SCH (15:18)
--- NOTE | 2019-01-30 11:43 | Discharge Summary ---
Date of Service January 23, 2019 Admission HPI Per Admitting Provider 52 yo F with h/o Afib DM II, HTN, HLD, Hypothyroidism, Asthma, ANA, CPAP, obesity, depression, diastolic CHF, metastatic colon CA - colectomy w/ ostomy 10/18, ostomy reversal 11/18 s/p chemotherapy. Patient presents today with history of mechanical fall. Patient got up in middle of night to urinate, and in the process of getting out of the bed, lost her balance when and fell sideways injuring her left leg in the process. She denies head injury or LOC. She was found on the floor by her and ambulance, was called. Patient reports 8/10 pain subsequently. She was unable to bear weight. She denies any preceding dizziness or lightheadedness prior to fall. Patient has a previous total knee replacement in the left leg as well. She reports previous fall/fracture in same leg 2 years ago. She received Fentanyl in ED. Dr. Vaughan (Orthopedic) was consulted and recommended knee immobilization. CBC unremarkable INR was 3.4 in arrival . patient was mildly hyponatremic at 132, K 3.4 . Patient was hyperglycemic at 554. Alk phos 234 from baseline of 150;s to 210's, bilirubin 3.5 within baseline range. Xray showed Acute oblique moderately displaced, distal left femoral periprosthetic fracture. Xray of tibia/fibula and plevis were negative for fracture. An old patellar fracture was also noted. Currently she reports 4/10 pain currently.She denies chest pain, sob, palpitation numbness tingling. At baseline, She ambulates without assistance. She lives with her . Patient was recently admitted 11/22/18 for anasarca, CHF exacerbation and was effectively diuresed during admission. Principal Diagnosis Left femur fracture Discharge Exam Constitutional: WD/WN, vitals as above + obese; no acute distress Eyes: PERRL and EOM intact bilaterally ENMT: external ear and nose normal, oropharynx normal Neck: trachea midline, no thyromegaly Respiratory: normal respiratory effort; no respiratory distress and no cough Auscultation: no diminished lung sounds and no wheezes Gastrointestinal (Abdomen): normal bowel sounds, soft, nontender, no hepatosplenomegaly Skin: no rashes, warm and dry Neurologic: PERRL, EOMI, accommodation nl, no face palsy, no dysarthria CN's II-XI intact bilaterally (grossly), moves all extremities and awake Psychiatric: Orientation: alert and oriented x 3 Discharge Data Allergies Allergy/AdvReac Type Severity Reaction Status Date / Time daptomycin Allergy Severe SHORTNESS Verified 01/15/19 06:43 OF BREATH Iodinated Contrast- Oral and Allergy Severe Anaphylaxis Verified 01/15/19 06:43 IV Dye bee venom protein (honey bee) Allergy Intermediate HIVES Verified 01/15/19 06:43 clindamycin Allergy Intermediate HIVES Verified 01/15/19 06:43 Sulfa (Sulfonamide Allergy Intermediate BACTRIM-HIV Verified 01/15/19 06:43 Antibiotics) ES trimethoprim Allergy Intermediate HIVES Verified 01/15/19 06:43 vancomycin Allergy Intermediate RASH Verified 01/15/19 06:43 dulaglutide AdvReac Severe BRAND-TRULICITY, Verified 01/15/19 06:43 SEVERE GI UPSET, CONSTIPATION Consultations 01/15/19 07:03 ED Decision to Admit Stat 01/15/19 09:56 Consult Orthopedic Surgery Stat 01/16/19 19:52 Consult Case Management - Discharge Planning Routine Procedures Performed Operation Date: 01/16/19 07:00 Actual Procedures p Left Distal Periprosthetic Fracture Open Reduction Internal Fixation(Left) - Claude Riggins, Ordered Studies 01/15/19 12:15 CT femur LT wo con Routine 01/16/19 12:00 FL femur LT 2V Routine FL fluoroscopy <1hr Routine Hospital Course (1) Femur fracture, left: Patient present with a distal left femur fracture due to mechanical fall. - ORIF on 01/[address] Riggins. - No weight-bearing on LLE - Left leg in brace - PT/OT Patient will be transferred to nursing facility for rehab. (2) Diabetes mellitus, type II: Hyperglycemic on arrival blood sugar >500. A1c was 11.0% in 11/2018, indicating poor control. - Basal insulin and sliding scale per glycemic pharmacist -Appears to be controlled (3) A-fib: Afib on arrival, asymptomatic. Anticoagulated on warfarin at home. Chads- Vasc of 4, meaning she definitely needs anticoagulation, but does not need bridging. - Rate-controlled at present - Continued metoprolol & digoxin - INR 3.4 on arrival, vitamin K 2.5mg administered. - Restarted warfarin on 01/17 - On 01/19, INR was already 2.1. I lowered her warfarin to 2 mg PO daily from her home 5mg as it seems like we would overshoot quickly with the 5mg dose. Possibly poor diet is contributing to quickly rising INR. -INR is 2.8 on 01/20 (4) Systolic CHF: Not in exacerbation, does not appear volume overloaded. Likely mildly hypovolemic from her hyperglycemia; however, baseline weight from 11/2018 was 70 kg and she is 73 kg on admission. Echo from 11/18/18 showed reduced EF 35-40%. - Restarted home Lasix 40mg PO BID on 01/18 - Still appears euvolemic on exam. (5) Colon carcinoma metastatic to multiple sites: S/p colectomy w/ ostomy in 10/18 & ostomy reversal in 11/18. Previously on FOLFOX, but had reaction. Then completed CPT-11, 5-FU, leucovorin, and bevacizumab. S/p Avastin therapy. - Outpatient f/u with oncology (6) Hypothyroidism: Is on an enormous Synthroid dose. This has been verified with the patient, her outpatient notes, and pharmacy. Unclear why she needs such a high dose. 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 - Continue Synthroid 1,200 mcg daily (7) Hypertension: BP was initially 150/100. Now 90/50 - 110/75. - Continue home metoprolol & spironolactone - Lasix held prior to surgery; restarted on 01/18 (8) ANA (obstructive sleep apnea): - CPAP ordered (9) Asthma: No wheezing or shortness of breath. - Continue home inhalers (10) GERD (gastroesophageal reflux disease): - Continue ranitidine, omeprazole (11) DVT prophylaxis: Warfarin Total Time Total Time Spent Total Time Spent (In Minutes): 31 Total Time Includes: Examination of the Patient, Discharge Planning and Medication Reconciliation Discharge Plan Discharge Items Patient Disposition: Transfer Assisted Fac Reason For Visit: LEFT FEMUR FRACTURE Discharge Diagnosis: Left femur fracture Condition: Good Discharge Goals: Decrease discomfort Activity: Per 'Additional Instructions' section Non-emergency contact: Primary Care Provider Call non-emergency contact if: you have any medication questions Follow-up/Referrals: Madison Vivar MD [Primary Care Provider] - Diet: Carb Consistent or DM2 Addtl Provider Instructions: Non weightbearing Left lower extremity. Must wear immobilizer especially with ambulation. May have off in bed for brief times for bathing etc. No overt range of motion with the left knee. Ok to shower if having minimal drainage. No tub baths. Do not soak wound. Continue Lovenox for 2-4 weeks post op dependent on pt's activity statusl. Follow up with Dr Riggins in 10-14 days from the day of surgery. Call for appointment. [phone] Prescriptions: New warfarin [Coumadin] 2 mg Tablet 2 mg PO DAILY@1600 Qty: 30 RF: 0 docusate sodium 100 mg Capsule 100 mg PO BID Qty: 60 RF: 0 oxycodone 5 mg Tablet 5 mg PO Q4H PRN (Reason: pain) Qty: 12 RF: 0 multivitamin [Daily-Lilli] Tablet 1 tab PO QAM Qty: 30 RF: 0 Continued digoxin 125 mcg tablet 0.125 mg PO DAILY RF: 0 hydrocortisone [Proctosol HC] 2.5 % cream with perineal applicator 1 appln IN HS PRN (Reason: hemorrhoids) Qty: 30 RF: 0 ranitidine HCl [Zantac] 150 mg Tablet 150 mg PO BID RF: 0 metoprolol succinate 25 mg Tablet Extended Release 24 Hr 25 mg PO DAILY RF: 0 furosemide 40 mg tablet 40 mg PO BID RF: 0 trazodone 50 mg tablet 50 mg PO HS PRN (Reason: Sleep) RF: 0 spironolactone 25 mg tablet 12.5 mg PO DAILY RF: 0 omeprazole 40 mg capsule,delayed release(DR/EC) 40 mg PO DAILY RF: 0 Rolaids 550-110 mg Tablet,Chewable 2 tab PO Q6H PRN (Reason: burning in stomach) RF: 0 sucralfate 1 gram Tablet 1 g PO ACHS RF: 0 acetaminophen 500 mg Tablet 500 mg PO Q4 PRN (Reason: mild pain/fever) RF: 0 psyllium husk [Fiber-Caps (psyllium husk)] 0.52 gram Capsule 0.52 g PO DAILY RF: 0 magnesium oxide 400 mg (241.3 mg magnesium) Tablet 400 mg PO DAILY RF: 0 levothyroxine [Levoxyl] 200 mcg Tablet 1,200 mcg PO QAM RF: 0 albuterol sulfate [Ventolin HFA] 90 mcg/actuation Hfa Aerosol Inhaler 2 - 4 puff INHALATION Q6H PRN (Reason: asthma) RF: 0 loratadine 10 mg Tablet 10 mg PO DAILY RF: 0 Novolog PenFill U-100 Insulin 100 unit/mL Cartridge 1 sliding scale dose SUBCUT TID RF: 0 Breo Ellipta 100-25 mcg/dose Blister With Device 1 inh INHALATION DAILY MDD 1 dose in 24 hours RF: 0 potassium chloride 10 mEq capsule, extended release 20 meq PO QAM RF: 0 Changed Lantus Solostar U-100 Insulin 100 unit/mL (3 mL) Insulin Pen 40 unit SUBCUT HS Qty: 0 RF: 0 Discontinued warfarin 5 mg tablet 5 mg PO QPM RF: 0 Stand-Alone Forms: [facility] Discharge Orders: Discharge Order (Routine); Ordered 01/23/19 Ordered By: Yousif French Skilled Items Patient informed of condition?: Yes DNR: No Discharge Level of Care: Skilled Communicable Disease: No Discharge Prognosis: Stable Admission Data Admit Date/Time: 01/15/19 08:19 Attending Provider: Yousif French Admit Provider: Bishnu Morris Primary Care Provider: Madison Vivar Other Providers: Faizan Zacarias Service: Surgical Services Other Interventions: Discharge Summary Assessment (RN) Last Done: 01/23/19 15:57 DC Date/Time DO NOT enter until pt leaves facility: 01/23/19 16:54
== END 2019-01-23 16:54 | DRG 481 ==
LOC: ED 05:10 → SUATTDRO 08:19 → 3W 08:19
DX: I48.91 Unspecified atrial fibrillation; Z68.31 Body mass index [BMI] 31.0-31.9, adult; E03.9 Hypothyroidism, unspecified; E11.65 Type 2 diabetes mellitus with hyperglycemia; Z91.030 Bee allergy status; G47.33 Obstructive sleep apnea (adult) (pediatric); Z85.038 Personal history of other malignant neoplasm of large intestine; E83.42 Hypomagnesemia; W18.39XA Other fall on same level, initial encounter; Z79.01 Long term (current) use of anticoagulants; K21.9 Gastro-esophageal reflux disease without esophagitis; Z82.49 Family history of ischemic heart disease and other diseases of the circulatory system; Z88.2 Allergy status to sulfonamides; M97.12XA Periprosthetic fracture around internal prosthetic left knee joint, initial encounter; Z88.8 Allergy status to other drugs, medicaments and biological substances; Y92.003 Bedroom of unspecified non-institutional (private) residence as the place of occurrence of the external cause; Z79.4 Long term (current) use of insulin; Z83.3 Family history of diabetes mellitus; I50.22 Chronic systolic (congestive) heart failure; J45.909 Unspecified asthma, uncomplicated; Y99.8 Other external cause status; Z91.041 Radiographic dye allergy status; I11.0 Hypertensive heart disease with heart failure; E66.01 Morbid (severe) obesity due to excess calories; Z79.899 Other long term (current) drug therapy; Z96.653 Presence of artificial knee joint, bilateral; Z51.81 Encounter for therapeutic drug level monitoring; Z88.1 Allergy status to other antibiotic agents

== ENCOUNTER 2019-06-26 13:19 | Inpatient (IN) ==
[2019-06-26] MEDS ORDERED: SODIUM CHLORIDE 0.9% 500 ML IV SCH (14:45)
[2019-06-26 15:07] LABS: Basophils # (auto) 0.01 K/uL (0-0.2); Basophils % (auto) 0.2 %; Eosinophils # (auto) 0.34 K/uL (0-0.5); Eosinophils % (auto) 5.4 %; Hematocrit (blood only) 31.7 % (37-47); Hemoglobin 11.5 g/dL (12.0-16.0); Immature Granulocytes # (auto) 0.02 K/uL (0.00-0.02); Immature Granulocytes % (auto) 0.3 %; Lymphocytes # (auto) 2.11 K/uL (1.2-3.4); Lymphocytes % (auto) 33.8 %; Mean Corpuscular Hemoglobin 31.3 pg (25-34); Mean Corpuscular Hgb Conc 36.3 g/dL (32-36); Mean Corpuscular Volume 86.1 fL (80-100); Mean Platelet Volume 9.2 fL (7.4-10.4); Monocytes # (auto) 0.49 K/uL (0.11-0.59); Monocytes % (auto) 7.8 %; Neutrophils # (auto) 3.28 K/uL (1.4-6.5); Neutrophils % (auto) 52.5 %; Platelet Count 199 K/uL (130-400); RDW Coefficient of Variation 19.8 % (11.5-14.5); RDW Standard Deviation 53.9 fL (36.4-46.3); Red Blood Count 3.68 M/uL (4.2-5.4); White Blood Count 6.25 K/uL (4.8-10.8)
[2019-06-26 15:21] LABS: INR 2.6 (0.9-1.1); Partial Thromboplastin Ratio 1.2; Partial Thromboplastin Time 31.9 Seconds (21.0-31.0); Prothrombin Time 24.5 Seconds (9.0-12.0)
[2019-06-26 15:23] LABS: BUN Creatinine Ratio 25.3 (10-20); Calcium 9.7 mg/dl (8.5-10.1); Creatinine Clr Calc Pharmacy 44.5 ml/min; Est GFR (Non-African American) 55.3; Potassium 3.6 mmol/L (3.5-5.1)
[2019-06-26 15:26] LABS: Albumin Globulin Ratio 0.9 (0.9-2); Bilirubin,Total 2.3 mg/dl (0.2-1); Globulin 3.5 gm/dl (2.5-4.0); Total Protein 6.5 gm/dl (6.4-8.2)
[2019-06-26] MEDS ORDERED: PHYTONADIONE 2.5 MG in SODIUM CHLORIDE 0.9% 50 ML IV ONE (16:33)
[2019-06-26] MEDS ORDERED: PANTOprazole 80 MG in DEXTROSE 5% 100 ML IV ONE (16:45)
[2019-06-26] MEDS: PANTOprazole 40 MG in DEXTROSE 5% 100 ML IV SCH ×2 (18:31→22:25)
--- NOTE | 2019-06-26 18:31 | History & Physical Report ---
Date of Service June 26, 2019 Assessment & Plan (1) Acute upper gastrointestinal bleeding: Admits to inpatient on telemetry Vital signs every 4 hours N.p.o. Gentle hydration with normal saline 80 cc/h Continue pantoprazole IV Recheck INR in 4 hours Given vitamin K 2.5 mg in the ER PRBC on hold give if hemoglobin less than 7 GI consult placed Hold warfarin DVT prophylaxis with SCDs and teds Present on Admission?: Yes (2) A-fib: Will hold warfarin since patient has upper GI bleed Continue monitoring on telemetry Present on Admission?: Yes (3) Colon cancer: Patient has recurrent metastatic colon cancer We will consult oncology. Present on Admission?: Yes (4) Congestive heart disease: Stable now, BNP pending. Continue home medicine: Metoprolol succinate 25 mg p.o. daily, potassium chloride 20 mEq extended release every morning, Spironolactone 12.5 mg p.o. daily, furosemide 40 mg p.o. twice daily, digoxin 0.125 mg p.o. daily. Present on Admission?: Yes (5) Hypertension: As above Present on Admission?: Yes (6) Diabetes mellitus, type II: Accu-Cheks before meals and at bedtime A1c pending Glycemic control per pharmacy Present on Admission?: Yes History of Present Illness Chief Complaint: Melena Primary Care Provider: Madison Vivar MD Patient is a 53 years old female with past medical history of metastatic colon cancer currently on chemotherapy, hypertension, hypothyroidism, A. fib's, hepatitis, mitral regurgitation, anemia, asthma, diabetes mellitus type 2, MRSA colonization, presents to the emergency room with a complaint of dark stool since this morning. Patient reports that amount of dark stool was not large. Patient is currently on warfarin for A. fib's and also on chemotherapy for metastatic colon cancer. Patient denies fever chills chest pain shortness of breath abdominal pain frequency urgency hematemesis hematuria dysuria. Labs are reviewed: White blood cells 6.25, hemoglobin 11.5, hematocrit 31.7, platelets 199, PT 24.5, INR 2.6, APTT 31.9, sodium 136, potassium 3.6, chloride 9.6, BUN 28, creatinine 1.112 GFR 55.3 BUN/creatinine 25.3 glucose 288 total bili 2.3 AST 17 ALT 14, CEA 62.[address] abdomen pelvis without contrast: Shows no significant changes in size of 3.3 cm presacral/perirectal mass adjace nt to rectosigmoid anastomosis. This likely reflects recurrent malignancy. No changes in a mildly enlarged left iliac node. Right lower lobe pulmonary nodules and few hepatic lesions which favor metastatic disease. Cholelithiasis. No evidence of acute cholecystitis. No evidence for bowel obstruction. Decision was made to admit patient and follow-up on blood count as well as on bowel movements for fecal occult blood. Allergies Allergy/AdvReac Type Severity Reaction Status Date / Time daptomycin Allergy Severe SHORTNESS Verified 06/26/19 14:34 OF BREATH Iodinated Contrast Media Allergy Severe Anaphylaxis Verified 06/26/19 14:34 bee venom protein (honey bee) Allergy Intermediate HIVES Verified 06/26/19 14:34 clindamycin Allergy Intermediate HIVES Verified 06/26/19 14:34 Sulfa (Sulfonamide Allergy Intermediate BACTRIM-HIV Verified 06/26/19 14:34 Antibiotics) ES trimethoprim Allergy Intermediate HIVES Verified 06/26/19 14:34 vancomycin Allergy Intermediate RASH Verified 06/26/19 14:34 dulaglutide AdvReac Severe BRAND-TRULICITY, Verified 06/26/19 14:34 SEVERE GI UPSET, CONSTIPATION Home Medications Home Medications Medication Instructions Recorded Confirmed Type Breo Ellipta 1 inh INHALATION DAILY MDD 1 dose 06/11/18 06/26/19 History in 24 hours Novolog PenFill U-100 Insulin 1 sliding scale dose SUBCUT TID 06/11/18 06/26/19 History albuterol sulfate [Ventolin HFA] 2 - 4 puff INHALATION Q6H PRN 06/11/18 06/26/19 History loratadine 10 mg PO DAILY 06/11/18 06/26/19 History magnesium oxide 400 mg PO DAILY 06/11/18 06/26/19 History hydrocortisone [Proctosol HC] 1 appln MD HS PRN #30 gm 07/31/18 06/26/19 Rx metoprolol succinate 25 mg PO DAILY 09/25/18 06/26/19 History ranitidine HCl [Zantac] 150 mg PO BID 09/25/18 06/26/19 History digoxin 125 mcg tablet 0.125 mg PO DAILY 11/28/18 06/26/19 History acetaminophen 500 mg PO Q4 PRN 01/15/19 06/26/19 History furosemide 40 mg PO BID 01/15/19 06/26/19 History omeprazole 40 mg PO DAILY 01/15/19 06/26/19 History psyllium husk [Fiber-Caps 0.52 g PO DAILY 01/15/19 06/26/19 History (psyllium husk)] spironolactone 12.5 mg PO DAILY 01/15/19 06/26/19 History sucralfate 1 g PO ACHS 01/15/19 06/26/19 History trazodone 50 mg PO HS PRN 01/15/19 06/26/19 History docusate sodium 100 mg PO BID #60 cap 01/23/19 06/26/19 Rx multivitamin [Daily-Lilli] 1 tab PO QAM #30 tab 01/23/19 06/26/19 Rx meloxicam 15 mg tablet 15 mg PO DAILY #30 tab 05/26/19 06/26/19 Rx oxycodone 5 mg tablet 5 mg PO Q4H PRN #20 tab 05/26/19 06/26/19 Rx capecitabine 500 mg tablet 1,500 mg PO BID tab 05/28/19 06/26/19 History prochlorperazine maleate 10 mg 10 mg PO Q6H PRN 05/28/19 06/26/19 History tablet levothyroxine 200 mcg tablet 1,200 mcg PO QAM #180 tab 06/06/19 06/26/19 Rx warfarin 5 mg tablet See Rx Instructions PO DAILY tab 06/09/19 06/26/19 History insulin glargine (U-100) 100 45 units SUBCUT HS #0 ml 06/17/19 06/26/19 Rx unit/mL (3 mL) subcutaneous pen potassium chloride ER 10 mEq 20 meq PO QAM #180 cap 06/17/19 06/26/19 Rx capsule,extended release Past Med/Surg History Medical History Obesity (BMI 30.0-34.9) (Acute) Periprosthetic fracture around internal prosthetic knee joint (Acute) Congestive heart disease (Chronic) Arthritis (Acute) Atrial fibrillation (Acute) Depression (Acute) Hypercholesterolemia (Acute) MRSA colonization (Acute) Hypertension (Acute) Diabetes mellitus, type II (Acute) Colon carcinoma metastatic to multiple sites (Chronic) Femur fracture, left (Acute) Moderate protein malnutrition (Acute) Anasarca (Acute) Elevated lactic acid level (Acute) Elevated bilirubin (Acute) Lung cancer (Chronic) Multiple pulmonary nodules determined by computed tomography of lung (Chronic) Demand ischemia (Acute) Hypomagnesemia (Acute) Medical non-compliance (Chronic) Hypothyroidism (Acute) Rectal pain (Acute) halfway (current) use of anticoagulants (Acute) Dysphagia (Acute) Hypothyroidism (Chronic) GERD (gastroesophageal reflux disease) (Chronic) HTN (hypertension) (Chronic) Dyslipidemia (Chronic) ANA (obstructive sleep apnea) (Chronic) Leaky heart valve (Chronic) Hepatitis (Chronic) Mitral regurgitation (Chronic) "echo 10/14/15: mild-mod mitral regurg " Anemia (Acute) Asthma (Acute) DVT prophylaxis (Resolved) Esophagitis (Resolved) Atrial fibrillation C. difficile colitis DM II (diabetes mellitus, type II), controlled H/O: lung cancer Left s/p L VATS HTN (hypertension) Hypothyroid Metastatic colon cancer in female lung mets Morbid obesity ANA (obstructive sleep apnea) Surgical History H/O carpal tunnel repair H/O total hysterectomy History of cardiac cath History of colostomy reversal S/P T&A (status post tonsillectomy and adenoidectomy) S/P colectomy S/P debridement Abdomen S/P total knee arthroplasty Bilateral Family History Other Coronary heart disease DM II (diabetes mellitus, type II), controlled Social History Preferred Language: Jordanian Communication Ability: Effective 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 Sales 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 Required: No Beliefs That Will Affect Care: None marital status: Current Living Situation: Spouse current occupational status: unemployed and disabled Feels Safe at Home: Yes Smoking Status: Never smoker Second Hand Exposure: No ; Hx Alcohol Use: No Hx Substance Use: No Review of Systems Review of Systems: All systems reviewed & are unremarkable except as noted in HPI & below Physical Exam Constitutional: WD/WN, vitals as above well developed Eyes: PERRL, conjunctivae normal, anicteric sclerae ENMT: external ear and nose normal, oropharynx normal Neck: trachea midline, no thyromegaly Respiratory: normal respiratory effort, lungs clear to auscultation Cardiovascular: RRR, no murmur, no edema Heart Sounds: normal S1 and normal S2 Palpation: + palpable S3 Vessels: + JVD and dorsalis pedis pulses present Chest (Breasts): normal inspection/palpation of breasts Gastrointestinal (Abdomen): normal bowel sounds, soft, nontender, no he patosplenomegaly Musculoskeletal: no cyanosis or clubbing, extremities motor strength 5/5 Skin: no rashes, warm and dry Neurologic: patellar DTR's 2+ bilat, sensation intact Psychiatric: A+Ox3, euthymic affect Lymphatic: no cervical or axillary lymphadenopathy Results & Data Vital Signs (Past 12 Hours) Vital Signs Temp Pulse Resp BP Pulse Ox 06/26/19 17:00 63 22 94/47 L 97 06/26/19 16:30 64 20 100/52 L 98 06/26/19 16:00 63 15 93/55 L 98 06/26/19 15:30 60 18 110/53 L 97 06/26/19 15:01 72 20 96 06/26/19 15:00 66 16 106/70 100 06/26/19 14:31 58 L 17 105/57 L 99 06/26/19 14:00 68 15 86/51 L 99 06/26/19 13:22 36.5 C 72 20 98/63 L 96 Code Status & VTE Plan Code Status Full code VTE Prophylaxis Plan VTE Prophylaxis will be ordered: No Reason for no VTE drug order: Contraindicated PG Care Time/CCT Total # of Minutes Spent Total Time Spent with Patient: Total time spent is greater than 50% in coordination of care (as documented) at patient's floor/unit and/or counseling patient: (1) A-fib Atrial fibrillation type: chronic Qualified Code(s): I48.2 - Chronic atrial fibrillation (2) Colon cancer Colon location: unspecified part of colon Qualified Code(s): C18.9 - Malignant neoplasm of colon, unspecified
--- NOTE | 2019-06-26 20:22 | CT Scan Report ---
CT OF THE ABDOMEN AND PELVIS WITHOUT CONTRAST CLINICAL HISTORY: GI bleed. Colon cancer. COMPARISON STUDY: CT of the abdomen and pelvis May 03, 2019. TECHNIQUE: Axial images of the abdomen and pelvis were obtained without IV contrast. Images were revi ewed in the axial, sagittal, and coronal planes. Automated exposure control was utilized for the dominique dy. A dose lowering technique was utilized adhering to the principles of ALARA. FINDINGS: A 1.1 cm right lower lobe nodule and a 6 mm right lower lobe nodule are unchanged from exam of May 03, 2019. No pneumatosis, free air or portal venous gas is present. Several hypodense hepat ic lesions measuring up to 1.4 cm are similar to CT of May 03, 2019. This is suboptimally assessed on this unenhanced exam. Unenhanced images of the spleen, adrenal glands, kidneys and pancreas are no rmal. There are gallstones within the gallbladder without evidence for acute cholecystitis. There is no evidence for a bowel obstruction. Note is made of masslike 3.3 cm presacral density which is simil ar to exam of May 03, 2019. This is adjacent to the anastomosis. A portion of bowel extends toward this mass which may explain gas within this lesion. A few adjacent perirectal nodules are unchanged. A mildly enlarged left iliac node is unchanged. There are no suspicious osseous lesions. A few abdomi nal varices are again noted. IMPRESSION: 1. No significant change in size of a 3.3 cm presacral/perirectal mass adjacent to the rectosigmoid a nastomosis. This likely reflects recurrent malignancy. 2. No change in a mildly enlarged left iliac node, right lower lobe pulmonary nodules and a few hepat ic lesions which favor metastatic disease. 3. Cholelithiasis. No evidence for acute cholecystitis. 4. No evidence for a bowel obstruction. Electronically signed by: Humberto Montanez M.D. 06/26/2019 8:20 PM
--- NOTE | 2019-06-26 20:49 | Emergency Department Note ---
Entered by Chip Kennedy acting as a scribe for Suzy Butterfield MD History of Present Illness General Chief complaint: Rectal Bleed Stated complaint: BLACK, BLOODY STOOLS Source: patient History of Present Illness Onset (ago): year(s) 1 Pain Consistency: + intermittent Quality: + other (dark stool) Relieved By: + none Associated symptoms: + denies other symptoms (vomiting) The patient is a 53 y/o female who presents to the ED w/ CC of intermittent, dark stool beginning one year ago. The patient states she went to her doctor to get her INR checked, and it was around 2. She reports she has been having thick, greasy, dark stools. The patient notes she did not have a rectal exam performed. She states she currently has colon cancer, and her last dose of chemotherapy was this morning. The patient denies vomiting and a history of a blood clot or transfusion. Nothing helps her symptoms. Home Medications Home Medications Medication Instructions Recorded Confirmed Type Breo Ellipta 1 inh INHALATION DAILY MDD 1 dose 06/11/18 06/26/19 History in 24 hours Novolog PenFill U-100 Insulin 1 sliding scale dose SUBCUT TID 06/11/18 06/26/19 History albuterol sulfate [Ventolin HFA] 2 - 4 puff INHALATION Q6H PRN 06/11/18 06/26/19 History loratadine 10 mg PO DAILY 06/11/18 06/26/19 History magnesium oxide 400 mg PO DAILY 06/11/18 06/26/19 History hydrocortisone [Proctosol HC] [address] HS PRN #30 gm 07/31/18 06/26/19 Rx metoprolol succinate 25 mg PO DAILY 09/25/18 06/26/19 History ranitidine HCl [Zantac] 150 mg PO BID 09/25/18 06/26/19 History digoxin 125 mcg tablet 0.125 mg PO DAILY 11/28/18 06/26/19 History acetaminophen 500 mg PO Q4 PRN 01/15/19 06/26/19 History furosemide 40 mg PO BID 01/15/19 06/26/19 History omeprazole 40 mg PO DAILY 01/15/19 06/26/19 History psyllium husk [Fiber-Caps 0.52 g PO DAILY 01/15/19 06/26/19 History (psyllium husk)] spironolactone 12.5 mg PO DAILY 01/15/19 06/26/19 History sucralfate 1 g PO ACHS 01/15/19 06/26/19 History trazodone 50 mg PO HS PRN 01/15/19 06/26/19 History docusate sodium 100 mg PO BID #60 cap 01/23/19 06/26/19 Rx multivitamin [Daily-Lilli] 1 tab PO QAM #30 tab 01/23/19 06/26/19 Rx oxycodone 5 mg tablet 5 mg PO Q4H PRN #20 tab 05/26/19 06/26/19 Rx capecitabine 500 mg tablet 1,500 mg PO BID tab 05/28/19 06/26/19 History prochlorperazine maleate 10 mg 10 mg PO Q6H PRN 05/28/19 06/26/19 History tablet levothyroxine 200 mcg tablet 1,200 mcg PO QAM #180 tab 06/06/19 06/26/19 Rx warfarin 5 mg tablet See Rx Instructions PO DAILY tab 06/09/19 06/26/19 History insulin glargine (U-100) 100 45 units SUBCUT HS #0 ml 06/17/19 06/26/19 Rx unit/mL (3 mL) subcutaneous pen potassium chloride ER 10 mEq 20 meq PO QAM #180 cap 06/17/19 06/26/19 Rx capsule,extended release Allergies Allergy/AdvReac Type Severity Reaction Status Date / Time daptomycin Allergy Severe SHORTNESS Verified 06/26/19 14:34 OF BREATH Iodinated Contrast Media Allergy Severe Anaphylaxis Verified 06/26/19 14:34 bee venom protein (honey bee) Allergy Intermediate HIVES Verified 06/26/19 14:34 clindamycin Allergy Intermediate HIVES Verified 06/26/19 14:34 Sulfa (Sulfonamide Allergy Intermediate BACTRIM-HIV Verified 06/26/19 14:34 Antibiotics) ES trimethoprim Allergy Intermediate HIVES Verified 06/26/19 14:34 vancomycin Allergy Intermediate RASH Verified 06/26/19 14:34 dulaglutide AdvReac Severe BRAND-TRULICITY, Verified 06/26/19 14:34 SEVERE GI UPSET, CONSTIPATION Past Med/Surg History Medical History Obesity (BMI 30.0-34.9) (Acute) Periprosthetic fracture around internal prosthetic knee joint (Acute) Congestive heart disease (Chronic) Arthritis (Acute) Atrial fibrillation (Acute) Depression (Acute) Hypercholesterolemia (Acute) MRSA colonization (Acute) Hypertension (Acute) Diabetes mellitus, type II (Acute) Colon carcinoma metastatic to multiple sites (Chronic) Femur fracture, left (Acute) Moderate protein malnutrition (Acute) Anasarca (Acute) Elevated lactic acid level (Acute) Elevated bilirubin (Acute) Lung cancer (Chronic) Multiple pulmonary nodules determined by computed tomography of lung (Chronic) Demand ischemia (Acute) Hypomagnesemia (Acute) Medical non-compliance (Chronic) Hypothyroidism (Acute) Rectal pain (Acute) alf (current) use of anticoagulants (Acute) Dysphagia (Acute) Hypothyroidism (Chronic) GERD (gastroesophageal reflux disease) (Chronic) HTN (hypertension) (Chronic) Dyslipidemia (Chronic) ANA (obstructive sleep apnea) (Chronic) Leaky heart valve (Chronic) Hepatitis (Chronic) Mitral regurgitation (Chronic) "echo 10/14/15: mild-mod mitral regurg " Anemia (Acute) Asthma (Acute) DVT prophylaxis (Resolved) Esophagitis (Resolved) Atrial fibrillation C. difficile colitis DM II (diabetes mellitus, type II), controlled H/O: lung cancer Left s/p L VATS HTN (hypertension) Hypothyroid Metastatic colon cancer in female lung mets Morbid obesity ANA (obstructive sleep apnea) Surgical History H/O carpal tunnel repair H/O total hysterectomy History of cardiac cath History of colostomy reversal S/P T&A (status post tonsillectomy and adenoidectomy) S/P colectomy S/P debridement Abdomen S/P total knee arthroplasty Bilateral Family History Other Coronary heart disease DM II (diabetes mellitus, type II), controlled Social History Preferred Language: [place]an Communication Ability: Effective Sql Analyst Required: No Beliefs That Will Affect Care: None marital status: Current Living Situation: Spouse and Family current occupational status: unemployed and disabled Feels Safe at Home: Yes Smoking Status: Never smoker Second Hand Exposure: No ; Hx Alcohol Use: No Hx Substance Use: No Review of Systems See HPI for pertinent positives & negatives. and A total of 10 systems reviewed and were otherwise negative Physical Exam Vital Signs Vital Signs - 24 hr 06/26/19 13:22 06/26/19 14:00 06/26/19 14:31 Temperature 36.5 C Temperature Source Oral Sepsis Recent Fever Within 48 Hours No Sepsis New/Unexplained Change in Mental Status No Sepsis Action Taken by Nursing No Action Required Pulse Rate 72 68 58 L Pulse Rate [Right Finger] Pulse Rate from SpO2 Sensor 67 60 Pulse Rhythm Regular Pulse Rhythm [Right Finger] Pulse Strength Normal Respiratory Rate 20 15 17 Respiratory Effort / Characteristics Non-Labored Spontaneous Respiratory Depth Normal Respiratory Pattern Regular Blood Pressure 98/63 L 86/51 L 105/57 L Blood Pressure [Right Arm] Blood Pressure Mean 74 62 73 Blood Pressure Mean [Right Arm] Blood Pressure Position Sitting Pulse Oximetry 96 99 99 Oxygen Delivery Method Room Air Room Air Room Air 06/26/19 15:00 06/26/19 15:01 06/26/19 15:30 Temperature Temperature Source Sepsis Recent Fever Within 48 Hours Sepsis New/Unexplained Change in Mental Status Sepsis Action Taken by Nursing Pulse Rate 66 72 60 Pulse Rate [Right Finger] Pulse Rate from SpO2 Sensor 66 59 L Pulse Rhythm Regular Pulse Rhythm [Right Finger] Pulse Strength Respiratory Rate 16 20 18 Respiratory Effort / Characteristics Respiratory Depth Respiratory Pattern Blood Pressure 106/70 110/53 L Blood Pressure [Right Arm] Blood Pressure Mean 82 72 Blood Pressure Mean [Right Arm] Blood Pressure Position Pulse Oximetry 100 96 97 Oxygen Delivery Method Room Air Room Air Room Air 06/26/19 16:00 06/26/19 16:30 06/26/19 17:00 Temperature Temperature Source Sepsis Recent Fever Within 48 Hours Sepsis New/Unexplained Change in Mental Status Sepsis Action Taken by Nursing Pulse Rate 63 64 63 Pulse Rate [Right Finger] Pulse Rate from SpO2 Sensor 61 64 61 Pulse Rhythm Pulse Rhythm [Right Finger] Pulse Strength Respiratory Rate 15 20 22 Respiratory Effort / Characteristics Respiratory Depth Respiratory Pattern Blood Pressure 93/55 L 100/52 L 94/47 L Blood Pressure [Right Arm] Blood Pressure Mean 67 68 62 Blood Pressure Mean [Right Arm] Blood Pressure Position Pulse Oximetry 98 98 97 Oxygen Delivery Method Room Air Room Air Room Air 06/26/19 17:30 06/26/19 18:00 06/26/19 18:19 Temperature Temperature Source Sepsis Recent Fever Within 48 Hours Sepsis New/Unexplained Change in Mental Status Sepsis Action Taken by Nursing Pulse Rate 60 63 61 Pulse Rate [Right Finger] Pulse Rate from SpO2 Sensor 63 59 L 63 Pulse Rhythm Pulse Rhythm [Right Finger] Pulse Strength Respiratory Rate 16 20 23 Respiratory Effort / Characteristics Respiratory Depth Respiratory Pattern Blood Pressure 101/58 L 96/55 L 92/50 L Blood Pressure [Right Arm] Blood Pressure Mean 72 68 64 Blood Pressure Mean [Right Arm] Blood Pressure Position Pulse Oximetry 99 96 97 Oxygen Delivery Method Room Air Room Air Room Air 06/26/19 18:30 06/26/19 18:45 06/26/19 19:00 Temperature Temperature Source Sepsis Recent Fever Within 48 Hours Sepsis New/Unexplained Change in Mental Status Sepsis Action Taken by Nursing Pulse Rate 51 L 58 L 61 Pulse Rate [Right Finger] Pulse Rate from SpO2 Sensor 56 L 59 L 63 Pulse Rhythm Pulse Rhythm [Right Finger] Pulse Strength Respiratory Rate 20 20 17 Respiratory Effort / Characteristics Respiratory Depth Respiratory Pattern Blood Pressure 103/57 L 93/48 L 103/56 L Blood Pressure [Right Arm] Blood Pressure Mean 72 63 71 Blood Pressure Mean [Right Arm] Blood Pressure Position Pulse Oximetry 97 94 96 Oxygen Delivery Method Room Air Room Air Room Air 06/26/19 19:18 06/26/19 20:12 Temperature Temperature Source Sepsis Recent Fever Within 48 Hours Sepsis New/Unexplained Change in Mental Status Sepsis Action Taken by Nursing Pulse Rate Pulse Rate [Right Finger] 87 60 Pulse Rate from SpO2 Sensor Pulse Rhythm Pulse Rhythm [Right Finger] Regular Regular Pulse Strength Respiratory Rate 18 16 Respiratory Effort / Characteristics Non-Labored Spontaneous Non-Labored Spontaneous Respiratory Depth Normal Normal Respiratory Pattern Regular Blood Pressure Blood Pressure [Right Arm] 97/54 L 114/54 L Blood Pressure Mean Blood Pressure Mean [Right Arm] 68 74 Blood Pressure Position Pulse Oximetry 99 99 Oxygen Delivery Method Room Air Room Air Vital signs reviewed. General: Thin, frail, and chronically ill-appearing 53 y/o female, in no significant distress. HEENT: No scleral icterus, PERRLA, neck supple. Atraumatic. Cardiovascular: irregular but rate controlled, no extra sounds. Pulmonary: Clear to auscultation bilaterally, normal work of breathing. Abdomen: Soft, nontender, nondistended, positive bowel sounds. Rectal: Guaiac positive melanotic stool, normal mucosa. Musculoskeletal: Atraumatic, no peripheral edema. Neurologic: Patient awake alert and oriented x 3. Skin: Warm, dry, no rash Course 1429: Past medical records reviewed. The patient was evaluated in room B10. A complete history and physical examination was performed. 1639: I reviewed the patient's case with Dr. Hatfield, [facility] Hospitalist. She will evaluate the patient for further management. 1658: Upon reevaluation, the patient is resting comfortably. I discussed laboratory and radiographic results with her. She verbalized agreement of the treatment plan. The patient will be evaluated for further management and care. Administered Medications Discontinued Medications Capecitabine (Xeloda) 3 ea PO BID [facility] Stop: 07/27/19 00:29 Last Admin: 06/29/19 08:28 Dose: 3 ea Documented by: [id number] Cosigned by: [id number] Admin: 06/28/19 21:58 Dose: 3 ea Documented by: [id number] Cosigned by: [id number] Admin: 06/28/19 10:11 Dose: 3 ea Documented by: [id number] Cosigned by: [id number] Admin: 06/27/19 21:15 Dose: 3 ea Documented by: [id number] Cosigned by: [id number] Admin: 06/27/19 12:32 Dose: 3 ea Documented by: [id number] Cosigned by: [id number] Admin: 06/27/19 00:28 Dose: 3 ea Documented by: [id number] Cosigned by: [id number] Digoxin (Lanoxin) 0.125 mg PO DAILY@1600 [facility] Stop: 07/27/19 15:59 Last Admin: 06/28/19 17:02 Dose: 0.125 mg Documented by: [id number] Admin: 06/27/19 18:07 Dose: 0.125 mg Documented by: [id number] Docusate Sodium (Colace) 100 mg PO BID [facility] Stop: 07/26/19 22:22 Last Admin: 06/29/19 08:26 Dose: 100 mg Documented by: [id number] Admin: 06/28/19 20:45 Dose: 100 mg Documented by: [id number] Admin: 06/28/19 08:43 Dose: 100 mg Documented by: [id number] Admin: 06/27/19 21:11 Dose: 100 mg Documented by: [id number] Admin: 06/27/19 09:17 Dose: 100 mg Documented by: [id number] Admin: 06/26/19 23:05 Dose: 100 mg Documented by: [id number] Furosemide (Lasix) 40 mg PO BID [facility] Stop: 07/26/19 22:22 Last Admin: 06/28/19 09:11 Dose: Not Given Documented by: [id number] Admin: 06/27/19 21:15 Dose: 40 mg Documented by: [id number] Admin: 06/27/19 09:14 Dose: 40 mg Documented by: [id number] Admin: 06/26/19 23:06 Dose: 40 mg Documented by: [id number] Furosemide (Lasix) 40 mg PO NOW ONE Stop: 06/29/19 10:14 Last Admin: 06/29/19 11:19 Dose: 40 mg Documented by: [id number] Heparin Sodium (Porcine) (Heparin Sod 100 Unit/Ml Flush) 5 ml FLUSH PRN PRN PRN Reason: Flush Stop: 07/28/19 02:29 Last Admin: 06/29/19 12:47 Dose: 5 ml Documented by: [id number] Hydrocortisone (Proctozone Hc 2.5%) 1 appln EXT HS PRN PRN Reason: hemorrhoids Stop: 07/26/19 22:22 Last Admin: 06/29/19 08:26 Dose: 1 appln Documented by: [id number] Sodium Chloride (Nss) 500 mls @ 999 mls/hr IV .Q31M [facility] Stop: 06/26/19 15:15 Last Infusion: 06/26/19 15:44 Dose: 0 mls/hr Documented by: [id number] Admin: 06/26/19 15:10 Dose: 999 mls/hr Documented by: [id number] Pantoprazole Sodium 80 mg/ (Dextrose) 120 mls @ 480 mls/hr IV NOW ONE Stop: 06/26/19 16:59 Last Infusion: 06/26/19 18:31 Dose: 0 mls/hr Documented by: [id number] Admin: 06/26/19 17:51 Dose: 480 mls/hr Documented by: [id number] Pantoprazole Sodium 40 mg/ (Dextrose) 100 mls @ 20 mls/hr IV Q5H [facility] Stop: 07/26/19 16:59 Last Infusion: 06/27/19 11:03 Dose: 0 mls/hr Documented by: [id number] Admin: 06/27/19 09:19 Dose: 20 mls/hr Documented by: [id number] Infusion: 06/27/19 08:02 Dose: 20 mls/hr Documented by: [id number] Admin: 06/27/19 03:02 Dose: 20 mls/hr Documented by: [id number] Infusion: 06/27/19 03:02 Dose: 20 mls/hr Documented by: [id number] Admin: 06/26/19 22:25 Dose: 20 mls/hr Documented by: [id number] Infusion: 06/26/19 22:25 Dose: 20 mls/hr Documented by: [id number] Admin: 06/26/19 18:31 Dose: 20 mls/hr Documented by: [id number] Phytonadione 2.5 mg/ Sodium (Chloride) 50.25 mls @ 100.5 mls/hr IV ONE ONE Stop: 06/26/19 17:02 Last Infusion: 06/26/19 18:31 Dose: 0 mls/hr Documented by: [id number] Admin: 06/26/19 17:50 Dose: 100.5 mls/hr Documented by: [id number] Pantoprazole Sodium 40 mg/ (Syringe) 10 mls @ 5 mls/min IV BID@0900,2100 [facility] Stop: 07/27/19 20:59 Last Admin: 06/29/19 08:28 Dose: 5 mls/min Documented by: [id number] Admin: 06/28/19 20:42 Dose: 5 mls/min Documented by: [id number] Admin: 06/28/19 08:45 Dose: 5 mls/min Documented by: [id number] Admin: 06/27/19 21:12 Dose: 5 mls/min Documented by: [id number] Influenza Virus Vaccine Quadrival (Flucelvax Quad Vaccine) 0.5 ml IM .ONCE ONE Stop: 06/27/19 08:01 Last Admin: 06/29/19 13:11 Dose: 0.5 ml Documented by: [id number] Insulin Aspart (Novolog Flexpen) 0 units SC ACHS [facility] Stop: 07/26/19 22:44 Last Admin: 06/28/19 20:40 Dose: 13 units Documented by: [id number] Cosigned by: [id number] Admin: 06/28/19 17:03 Dose: 10 units Documented by: [id number] Cosigned by: [id number] Admin: 06/28/19 12:02 Dose: 14 units Documented by: [id number] Cosigned by: [id number] Admin: 06/28/19 08:41 Dose: 9 units Documented by: [id number] Cosigned by: [id number] Admin: 06/27/19 21:17 Dose: 3 units Documented by: [id number] Cosigned by: [id number] Admin: 06/27/19 18:09 Dose: 9 units Documented by: [id number] Cosigned by: [id number] Admin: 06/27/19 12:33 Dose: 11 units Documented by: [id number] Cosigned by: [id number] Admin: 06/27/19 12:32 Dose: Not Given Documented by: [id number] Cosigned by: [id number] Admin: 06/26/19 23:20 Dose: 9 units Documented by: [id number] Cosigned by: [id number] Insulin Aspart (Novolog Flexpen) 0 units SC 0300 [facility] Stop: 06/27/19 03:01 Last Admin: 06/27/19 03:19 Dose: 2 units Documented by: [id number] Cosigned by: [id number] Insulin Aspart (Novolog Flexpen) 0 units SC 0730 [facility] Stop: 07/29/19 07:29 Last Admin: 06/29/19 08:21 Dose: 17 units Documented by: [id number] Cosigned by: [id number] Insulin Aspart (Novolog Flexpen) 0 units SC 1130,1630,2100 [facility] Stop: 07/29/19 11:29 Last Admin: 06/29/19 11:54 Dose: 14 units Documented by: [id number] Cosigned by: [id number] Insulin Glargine (Lantus Solostar Pen) 45 units SQ HS [facility] Stop: 07/26/19 22:22 Last Admin: 06/26/19 23:20 Dose: 45 units Documented by: [id number] Cosigned by: [id number] Insulin Glargine (Lantus Solostar Pen) 20 units SQ HS [facility]; Protocol Stop: 07/27/19 20:59 Last Admin: 06/27/19 21:16 Dose: 20 units Documented by: [id number] Cosigned by: [id number] Insulin Glargine (Lantus Solostar Pen) 10 units SQ ONE ONE; Protocol Stop: 06/28/19 12:31 Last Admin: 06/28/19 12:45 Dose: 10 units Documented by: [id number] Cosigned by: [id number] Insulin Glargine (Lantus Solostar Pen) 0 units SQ HS [facility]; Protocol Stop: 07/28/19 20:59 Last Admin: 06/28/19 20:40 Dose: 25 units Documented by: [id number] Cosigned by: [id number] Levothyroxine Sodium (Synthroid) 1,200 mcg PO DAILYBB [facility] Stop: 07/27/19 06:29 Last Admin: 06/28/19 06:27 Dose: 1,200 mcg Documented by: [id number] Admin: 06/27/19 06:07 Dose: 1,200 mcg Documented by: [id number] Loratadine (Claritin) 10 mg PO DAILY [facility] Stop: 07/27/19 08:59 Last Admin: 06/29/19 08:26 Dose: 10 mg Documented by: [id number] Admin: 06/28/19 09:28 Dose: 10 mg Documented by: [id number] Admin: 06/27/19 09:15 Dose: 10 mg Documented by: [id number] Magnesium Oxide (Mag-Ox) 400 mg PO DAILY [facility] Stop: 07/27/19 08:59 Last Admin: 06/29/19 08:25 Dose: 400 mg Documented by: [id number] Admin: 06/28/19 08:45 Dose: 400 mg Documented by: [id number] Admin: 06/27/19 09:08 Dose: 400 mg Documented by: [id number] Metoprolol Succinate (Toprol Xl) 25 mg PO DAILY [facility] Stop: 07/27/19 08:59 Last Admin: 06/29/19 08:27 Dose: 25 mg Documented by: [id number] Admin: 06/28/19 09:11 Dose: Not Given Documented by: [id number] Admin: 06/27/19 09:17 Dose: 25 mg Documented by: [id number] Miscellaneous (Order Awaiting Action) 1 ea N/A QS [facility] Stop: 07/26/19 22:44 Last Admin: 06/27/19 08:20 Dose: Not Given Documented by: [id number] Admin: 06/27/19 00:30 Dose: Not Given Documented by: [id number] Admin: 06/27/19 00:28 Dose: Not Given Documented by: [id number] Multivitamins (Multivitamin Tab) 1 tab PO QAM [facility] Stop: 07/27/19 08:59 Last Admin: 06/29/19 08:27 Dose: 1 tab Documented by: [id number] Admin: 06/28/19 08:43 Dose: 1 tab Documented by: [id number] Admin: 06/27/19 09:15 Dose: 1 tab Documented by: [id number] Oxycodone HCl (Roxicodone Immediate Rel) 5 mg PO Q4H PRN PRN Reason: pain Stop: 07/10/19 22:22 Last Admin: 06/28/19 20:42 Dose: 5 mg Documented by: [id number] Admin: 06/27/19 18:07 Dose: 5 mg Documented by: [id number] Admin: 06/27/19 03:56 Dose: 5 mg Documented by: [id number] Pneumococcal Polyvalent Vaccine (Pneumovax-23) 25 mcg IM .ONCE ONE Stop: 06/27/19 08:01 Last Admin: 06/27/19 08:20 Dose: Not Given Documented by: [id number] Potassium Chloride (Klor-Con M10) 20 meq PO QAM [facility] Stop: 07/27/19 08:59 Last Admin: 06/29/19 08:25 Dose: 20 meq Documented by: [id number] Admin: 06/28/19 08:44 Dose: 20 meq Documented by: [id number] Admin: 06/27/19 09:15 Dose: 20 meq Documented by: [id number] Psyllium Hydrophilic Mucilloid (Metamucil) 1 pkt PO DAILY [facility] Stop: 07/27/19 08:59 Last Admin: 06/29/19 10:30 Dose: 1 pkt Documented by: [id number] Admin: 06/28/19 08:45 Dose: 1 pkt Documented by: [id number] Admin: 06/27/19 09:16 Dose: 1 pkt Documented by: [id number] Ranitidine HCl (Zantac) 150 mg PO BID [facility] Stop: 07/26/19 22:22 Last Admin: 06/29/19 08:27 Dose: 150 mg Documented by: [id number] Admin: 06/28/19 20:45 Dose: 150 mg Documented by: [id number] Admin: 06/28/19 08:45 Dose: 150 mg Documented by: [id number] Admin: 06/27/19 21:12 Dose: 150 mg Documented by: [id number] Admin: 06/27/19 09:16 Dose: 150 mg Documented by: [id number] Admin: 06/26/19 23:06 Dose: 150 mg Documented by: [id number] Fluticasone/Salmeterol (Advair Diskus 250/50) 1 puffs INH BID [facility] Stop: 07/27/19 13:59 Last Admin: 06/29/19 08:26 Dose: 1 puffs Documented by: [id number] Admin: 06/28/19 20:44 Dose: 1 puffs Documented by: [id number] Admin: 06/28/19 08:41 Dose: 1 puffs Documented by: [id number] Admin: 06/27/19 21:10 Dose: 1 puffs Documented by: [id number] Admin: 06/27/19 18:06 Dose: 1 puffs Documented by: [id number] Simethicone (Mylicon) 80 mg PO Q6H PRN PRN Reason: Cramping/ pain Stop: 07/28/19 13:44 Last Admin: 06/29/19 12:22 Dose: 80 mg Documented by: [id number] Admin: 06/28/19 20:45 Dose: 80 mg Documented by: [id number] Spironolactone (Aldactone) 12.5 mg PO DAILY [facility] Stop: 07/27/19 08:59 Last Admin: 06/28/19 09:11 Dose: Not Given Documented by: [id number] Admin: 06/27/19 09:15 Dose: 12.5 mg Documented by: [id number] Sucralfate (Carafate Tab) 1 gm PO ACHS [facility] Stop: 07/26/19 22:22 Last Admin: 06/29/19 11:53 Dose: 1 gm Documented by: [id number] Admin: 06/29/19 08:24 Dose: 1 gm Documented by: [id number] Admin: 06/28/19 20:44 Dose: 1 gm Documented by: [id number] Admin: 06/28/19 17:01 Dose: 1 gm Documented by: [id number] Admin: 06/28/19 11:59 Dose: 1 gm Documented by: [id number] Admin: 06/28/19 07:53 Dose: 1 gm Documented by: [id number] Admin: 06/27/19 21:11 Dose: 1 gm Documented by: [id number] Admin: 06/27/19 18:07 Dose: 1 gm Documented by: [id number] Admin: 06/27/19 12:36 Dose: 1 gm Documented by: [id number] Admin: 06/27/19 09:08 Dose: 1 gm Documented by: [id number] Admin: 06/26/19 23:07 Dose: 1 gm Documented by: [id number] Medical Decision Making Differential Diagnosis Differential diagnosis includes etiologies such as diverticulosis, AVM, coagulopathy, colitis, inflammatory bowel disease, malignancy, Yolanda-De Leon tear, esophagitis, peptic ulcer disease, variceal bleed, gastritis, epistaxis, fissure, hemorrhoids, as well as others were entertained. Medical Records Attestation: I reviewed the patient's medical records. Home Medications Current Medication List: was personally reviewed by me Laboratory Data Attestation: I reviewed the patient's lab results. Result diagrams: 06/29/19 08:09 06/29/19 08:09 Lab Results 06/26/19 06/26/19 06/26/19 Range/Units 14:46 14:46 14:46 WBC 6.25 (4.8-10.8) K/uL RBC 3.68 L (4.2-5.4) M/uL Hgb 11.5 L (12.0-16.0) g/dL Hct 31.7 L (37-47) % MCV 86.1 (80-100) fL MCH 31.3 (25-34) pg MCHC 36.3 H (32-36) g/dL RDW Std Deviation 53.9 H (36.4-46.3) fL RDW Coeff of Stanley 19.8 H (11.5-14.5) % Plt Count 199 (130-400) K/uL MPV 9.2 (7.4-10.4) fL Immature Gran % (Auto) 0.3 % Neut % (Auto) 52.5 % Lymph % (Auto) 33.8 % Robeson % (Auto) 7.8 % Eos % (Auto) 5.4 % Baso % (Auto) 0.2 % Immature Gran # (Auto) 0.02 (0.00-0.02) K/uL Neut # (Auto) 3.28 (1.4-6.5) K/uL Lymph # (Auto) 2.11 (1.2-3.4) K/uL Robeson # (Auto) 0.49 (0.11-0.59) K/uL Eos # (Auto) 0.34 (0-0.5) K/uL Baso # (Auto) 0.01 (0-0.2) K/uL PT 24.5 H (9.0-12.0) Seconds INR 2.6 H (0.9-1.1) APTT 31.9 H (21.0-31.0) Seconds PTT Ratio 1.2 Sodium 136 (136-145) mmol/L Potassium 3.6 (3.5-5.1) mmol/L Chloride 96 L (98-107) mmol/L Carbon Dioxide 33 H (21-32) mmol/L Anion Gap 7.0 (3-11) BUN 28 H (7-18) mg/dl Creatinine 1.12 (0.6-1.2) mg/dl Est Cr Clr Drug Dosing 44.5 ml/min Est GFR ( Amer) 64.0 Est GFR (Non-Af Amer) 55.3 BUN/Creatinine Ratio 25.3 H (10-20) Glucose 288 H (70-99) mg/dl Calcium 9.7 (8.5-10.1) mg/dl Total Bilirubin 2.3 H (0.2-1) mg/dl AST 17 (15-37) U/L ALT 14 (12-78) U/L Alkaline Phosphatase 123 H (45-117) U/L Total Protein 6.5 (6.4-8.2) gm/dl Albumin 3.0 L (3.4-5.0) gm/dl Globulin 3.5 (2.5-4.0) gm/dl Albumin/Globulin Ratio 0.9 (0.9-2) POC Stool Occult Blood (Negative) Blood Type Antibody Screen 06/26/19 06/26/19 Range/Units 14:46 16:08 WBC (4.8-10.8) K/uL RBC (4.2-5.4) M/uL Hgb (12.0-16.0) g/dL Hct (37-47) % MCV (80-100) fL MCH (25-34) pg MCHC (32-36) g/dL RDW Std Deviation (36.4-46.3) fL RDW Coeff of Stanley (11.5-14.5) % Plt Count (130-400) K/uL MPV (7.4-10.4) fL Immature Gran % (Auto) % Neut % (Auto) % Lymph % (Auto) % Robeson % (Auto) % Eos % (Auto) % Baso % (Auto) % Immature Gran # (Auto) (0.00-0.02) K/uL Neut # (Auto) (1.4-6.5) K/uL Lymph # (Auto) (1.2-3.4) K/uL Robeson # (Auto) (0.11-0.59) K/uL Eos # (Auto) (0-0.5) K/uL Baso # (Auto) (0-0.2) K/uL PT (9.0-12.0) Seconds INR (0.9-1.1) APTT (21.0-31.0) Seconds PTT Ratio Sodium (136-145) mmol/L Potassium (3.5-5.1) mmol/L Chloride (98-107) mmol/L Carbon Dioxide (21-32) mmol/L Anion Gap (3-11) BUN (7-18) mg/dl Creatinine (0.6-1.2) mg/dl Est Cr Clr Drug Dosing ml/min Est GFR ( Amer) Est GFR (Non-Af Amer) BUN/Creatinine Ratio (10-20) Glucose (70-99) mg/dl Calcium (8.5-10.1) mg/dl Total Bilirubin (0.2-1) mg/dl AST (15-37) U/L ALT (12-78) U/L Alkaline Phosphatase (45-117) U/L Total Protein (6.4-8.2) gm/dl Albumin (3.4-5.0) gm/dl Globulin (2.5-4.0) gm/dl Albumin/Globulin Ratio (0.9-2) POC Stool Occult Blood Positive A (Negative) Blood Type A Negative Antibody Screen NEGATIVE ECG Data Attestation: I personally reviewed and interpreted this ECG as follows: Indication: weakness Rate (beats per minute): 61 Rhythm: atrial fibrillation Findings: + other (Low voltage) and + nonspecific-ST abn (with repolarization abn in the lateral leads) Comparison ECG Date: from (05/03/19) Change: no significant change Blood Pressure Blood Pressure Findings: Low blood pressure Blood Pressure Disposition: further management by hospitalist MDM Narrative This pt was evaluated and appeared to be in no distress. IV access was obtained and lab work was drawn. Pt was placed on the electronic device monitor. Hbg is 11.5 and INR is 2.6. Stool is guaiac positive and melanotic. IV protonix was initiated as well as IV Vit K. Hypotension improved with IV NSS. Pt was advised of the findings. Hospitalist evaluation was requested for further management. Pt is aware and agrees. Impression & Plan Acute upper gastrointestinal bleeding, A-fib, Colon cancer, Anticoagulated on Coumadin, Hypotension Discharge Plan Visit Data *Final* Discharge Date/Time: 06/26/19 21:27 Chief Complaint: Rectal Bleed Stated Complaint: BLACK, BLOODY STOOLS ED Provider: Suzy Butterfield Discharge Problem: Acute upper gastrointestinal bleeding, A-fib, Colon cancer, Anticoagulated on Coumadin, Hypotension Patient Disposition: Admitted As Inpatient Discharge Instructions Interventions: ED Discharge Assessment Last Done: 06/26/19 21:27 Discharge Problem: A-fib Qualifiers: Atrial fibrillation type: chronic Qualified Code(s): I48.2 - Chronic atrial fibrillation Colon cancer Qualifiers: Colon location: unspecified part of colon Qualified Code(s): C18.9 - Malignant neoplasm of colon, unspecified Hypotension Qualifiers: Hypotension type: hypotension due to hypovolemia Qualified Code(s): I95.89 - Other hypotension The scribe's documentation has been prepared under my direction and personally reviewed by me in its entirety. I confirm that the note above accurately reflects all work, treatment, procedures, and medical decision making performed by me.
[2019-06-26] MEDS ORDERED: ALBUTEROL HFA 8 GM INHALER INH PRN (22:23)
[2019-06-26] MEDS ORDERED: DEXTROSE 50% 50 ML SYRINGE IV PRN (22:23)
[2019-06-26] MEDS ORDERED: TRAZODONE HCL 50 MG TAB PO PRN (22:23)
[2019-06-26] MEDS ORDERED: INSULIN GLARGINE SOLOSTAR 100 UNITS/ML 3 ML PEN SQ SCH (22:23)
[2019-06-26] MEDS ORDERED: GLUCOSE 40% GEL 15 GM TUBE PO PRN (22:23)
[2019-06-26] MEDS ORDERED: CARBOHYDRATES FOR HYPOGLYCEMIA PO PRN (22:23)
[2019-06-26] MEDS ORDERED: HYDROCORTISONE HC 2.5% CRM 30GM TUBE EXT PRN (22:23)
[2019-06-26] MEDS ORDERED: PROCHLORPERAZINE MALEATE 10 MG TAB PO PRN (22:23)
[2019-06-26] MEDS ORDERED: GLUCOSE 10 TABS/TUBE PO PRN (22:23)
[2019-06-26] MEDS ORDERED: GLUCAGON FOR INJ 1 MG VIAL SQ PRN (22:23)
[2019-06-26] MEDS ORDERED: PHARMACY GLYCEMIC MGMT CONSULT PRN (22:45)
[2019-06-26] MEDS ORDERED: XELODA~ORDER AWAITING ACTION SCH (22:45)
[2019-06-26 22:54] LABS: Basophils # (auto) 0.01 K/uL (0-0.2); Basophils % (auto) 0.2 %; Eosinophils # (auto) 0.37 K/uL (0-0.5); Eosinophils % (auto) 6.1 %; Hematocrit (blood only) 31.4 % (37-47); Hemoglobin 11.2 g/dL (12.0-16.0); Immature Granulocytes # (auto) 0.01 K/uL (0.00-0.02); Immature Granulocytes % (auto) 0.2 %; Lymphocytes % (auto) 44.8 %; Mean Corpuscular Hemoglobin 31.4 pg (25-34); Mean Corpuscular Hgb Conc 35.7 g/dL (32-36); Monocytes # (auto) 0.41 K/uL (0.11-0.59); Monocytes % (auto) 6.8 %; Neutrophils # (auto) 2.53 K/uL (1.4-6.5); Neutrophils % (auto) 41.9 %; Platelet Count 193 K/uL (130-400); RDW Standard Deviation 56.7 fL (36.4-46.3); Red Blood Count 3.57 M/uL (4.2-5.4); White Blood Count 6.03 K/uL (4.8-10.8)
[2019-06-26 23:04] LABS: INR 1.8 (0.9-1.1)
[2019-06-26] MEDS: DOCUSATE SODIUM 100 MG CAP PO SCH (23:05)
[2019-06-26] MEDS: FUROSEMIDE 40 MG TAB PO SCH (23:06)
[2019-06-26] MEDS: SUCRALFATE 1 GM TAB PO SCH (23:07)
[2019-06-26 23:12] LABS: Anisocytosis Present
[2019-06-26] MEDS: INSULIN ASPART 100 UNITS/ML 3 ML PEN SC SCH (23:20)
[2019-06-27] MEDS: CAPECITABINE PO SCH ×3 (00:28→21:15)
[2019-06-27] MEDS ORDERED: INSULIN ASPART 100 UNITS/ML 3 ML PEN SC SCH (03:00)
[2019-06-27] MEDS: PANTOprazole 40 MG in DEXTROSE 5% 100 ML IV SCH ×2 (03:02→09:19)
[2019-06-27] MEDS: OXYCODONE HCL IR 5 MG TAB (IMMEDIATE RELEASE) PO PRN ×2 (03:56→18:07)
[2019-06-27] MEDS: LEVOTHYROXINE SODIUM 200 MCG TABLET PO SCH (06:07)
[2019-06-27 07:04] LABS: Basophils # (auto) 0.01 K/uL (0-0.2); Basophils % (auto) 0.1 %; Eosinophils % (auto) 6.3 %; Hematocrit (blood only) 31.5 % (37-47); Hemoglobin 11.1 g/dL (12.0-16.0); Immature Granulocytes # (auto) 0.01 K/uL (0.00-0.02); Immature Granulocytes % (auto) 0.1 %; Lymphocytes # (auto) 3.39 K/uL (1.2-3.4); Lymphocytes % (auto) 42.7 %; Mean Corpuscular Hgb Conc 35.2 g/dL (32-36); Mean Platelet Volume 9.2 fL (7.4-10.4); Monocytes # (auto) 0.87 K/uL (0.11-0.59); Neutrophils # (auto) 3.15 K/uL (1.4-6.5); Neutrophils % (auto) 39.8 %; Platelet Count 230 K/uL (130-400); RDW Coefficient of Variation 20.4 % (11.5-14.5); RDW Standard Deviation 57.7 fL (36.4-46.3); Red Blood Count 3.58 M/uL (4.2-5.4); White Blood Count 7.93 K/uL (4.8-10.8)
[2019-06-27 07:19] LABS: INR 1.5 (0.9-1.1); Prothrombin Time 14.5 Seconds (9.0-12.0)
[2019-06-27 07:34] LABS: Anisocytosis Present
[2019-06-27 07:39] LABS: Albumin Level 2.7 gm/dl (3.4-5.0); BUN Creatinine Ratio 26.4 (10-20); Calcium 9.3 mg/dl (8.5-10.1); Creatinine Clr Calc Pharmacy 42.3 ml/min; Est GFR (African American) 66.9; Est GFR (Non-African American) 57.7; Potassium 3.2 mmol/L (3.5-5.1)
[2019-06-27 07:42] LABS: Albumin Globulin Ratio 0.8 (0.9-2); Bilirubin,Total 2.1 mg/dl (0.2-1); Globulin 3.2 gm/dl (2.5-4.0); Total Protein 5.9 gm/dl (6.4-8.2)
[2019-06-27] MEDS ORDERED: INFLUENZA VIRUS QUAD VACCINE 0.5 ML SYR IM ONE (08:00)
[2019-06-27] MEDS ORDERED: PNEUMOCOCCAL ADMINISTRATION CHARGE ONE (08:00)
[2019-06-27] MEDS ORDERED: PNEUMOCOCCAL POLYSACCHARIDES 25 MCG/0.5 ML VIAL/SYR IM ONE (08:00)
[2019-06-27] MEDS ORDERED: INFLUENZA ADMINISTRATION CHARGE ONE (08:00)
[2019-06-27 08:14] LABS: Estimated Average Glucose 309 mg/dl; Hemoglobin A1C 12.4 % (4.5-5.6)
[2019-06-27] MEDS: SUCRALFATE 1 GM TAB PO SCH ×4 (09:08→21:11)
[2019-06-27] MEDS: MAGNESIUM OXIDE 400 MG TAB PO SCH (09:08)
[2019-06-27] MEDS: FUROSEMIDE 40 MG TAB PO SCH ×2 (09:14→21:15)
[2019-06-27] MEDS: MULTIVITAMIN TAB PO SCH (09:15)
[2019-06-27] MEDS: SPIRONOLACTONE 25 MG TAB PO SCH (09:15)
[2019-06-27] MEDS: LORATADINE 10 MG TAB PO SCH (09:15)
[2019-06-27] MEDS: POTASSIUM CHLORIDE 10 MEQ TABCR PO SCH (09:15)
[2019-06-27] MEDS: PSYLLIUM 58.6% POWDER PACKET PO SCH (09:16)
[2019-06-27] MEDS: METOPROLOL SUCC 25MG EXT REL TAB PO SCH (09:17)
[2019-06-27] MEDS: DOCUSATE SODIUM 100 MG CAP PO SCH ×2 (09:17→21:11)
--- NOTE | 2019-06-27 09:42 | Gastrointestinal Consultation ---
Date of Consultation June 27, 2019 Assessment & Plan (1) Melena: Anemia is at baseline at 11.1/31.5. No further melena. Potential etiologies include upper GI issues such as PUD vs known colon cancer. -Will treat empirically for potential upper GI bleed with Protonix 40 mg IV BID with anticipation of converting to po BID for discharge. -No plans for endoscopic evaluation at present given hemodynamic stability, lack of further symptoms, & overall clinical picture as this procedure is unlikely to yield a benefit in this patient with metastatic colon cancer which is not responding to treatment. -Would urge strong consideration of palliative care involvement. -Continue to monitor H/H. -Ok for consistent carb diet. Thank you for allowing us to participate in the care of this patient. If you should have any further questions, do not hesitate to contact us at extension [phone] or [phone]. We will sign off at this time. Present on Admission?: Yes Supervising Physician Co-Signing Physician Notes I personally evaluated the patient and agree with the findings and plan as documented by Chloe Calderon, PAC Exam: abd: soft, mild diffuse tenderness to palpation, nd History of Present Illness Reason for Consultation: GI bleed Attending Physician: Yousif French History of Present Illness Patient is a 53 yo female with an unforunate medical history including colon cancer with mets to the liver not responding to therapy who presents to the office for further evaluation of possible GI bleeding. The patient reports that she had several dark stools over the past several days. She denies NSAID use. She denies diarrhea or bright red blood per rectum. She denies abdominal pain. She reports no further episodes of dark stool since admission to the hospital. She is unsurprisingly heme positive. She takes Coumadin for Atrial Fibrillation. Her INR is present 1.5. She is currently on an IV Protonix drip. Her last EGD & colonoscopy were in 2018. H/H is currently at 11.1/31.5 which has been her recent baseline. She denies current complaints. Allergies Allergy/AdvReac Type Severity Reaction Status Date / Time daptomycin Allergy Severe SHORTNESS Verified 06/26/19 14:34 OF BREATH Iodinated Contrast Media Allergy Severe Anaphylaxis Verified 06/26/19 14:34 bee venom protein (honey bee) Allergy Intermediate HIVES Verified 06/26/19 14:34 clindamycin Allergy Intermediate HIVES Verified 06/26/19 14:34 Sulfa (Sulfonamide Allergy Intermediate BACTRIM-HIV Verified 06/26/19 14:34 Antibiotics) ES trimethoprim Allergy Intermediate HIVES Verified 06/26/19 14:34 vancomycin Allergy Intermediate RASH Verified 06/26/19 14:34 dulaglutide AdvReac Severe BRAND-TRULICITY, Verified 06/26/19 14:34 SEVERE GI UPSET, CONSTIPATION Home Medications Home Medications Medication Instructions Recorded Confirmed Type Breo Ellipta 1 inh INHALATION DAILY MDD 1 dose 06/11/18 06/26/19 History in 24 hours Novolog PenFill U-100 Insulin 1 sliding scale dose SUBCUT TID 06/11/18 06/26/19 History albuterol sulfate [Ventolin HFA] 2 - 4 puff INHALATION Q6H PRN 06/11/18 06/26/19 History loratadine 10 mg PO DAILY 06/11/18 06/26/19 History magnesium oxide 400 mg PO DAILY 06/11/18 06/26/19 History hydrocortisone [Proctosol HC] 1 appln MT HS PRN #30 gm 07/31/18 06/26/19 Rx metoprolol succinate 25 mg PO DAILY 09/25/18 06/26/19 History ranitidine HCl [Zantac] 150 mg PO BID 09/25/18 06/26/19 History digoxin 125 mcg tablet 0.125 mg PO DAILY 11/28/18 06/26/19 History acetaminophen 500 mg PO Q4 PRN 01/15/19 06/26/19 History furosemide 40 mg PO BID 01/15/19 06/26/19 History omeprazole 40 mg PO DAILY 01/15/19 06/26/19 History psyllium husk [Fiber-Caps 0.52 g PO DAILY 01/15/19 06/26/19 History (psyllium husk)] spironolactone 12.5 mg PO DAILY 01/15/19 06/26/19 History sucralfate 1 g PO ACHS 01/15/19 06/26/19 History trazodone 50 mg PO HS PRN 01/15/19 06/26/19 History docusate sodium 100 mg PO BID #60 cap 01/23/19 06/26/19 Rx multivitamin [Daily-Lilli] 1 tab PO QAM #30 tab 01/23/19 06/26/19 Rx meloxicam 15 mg tablet 15 mg PO DAILY #30 tab 05/26/19 06/26/19 Rx oxycodone 5 mg tablet 5 mg PO Q4H PRN #20 tab 05/26/19 06/26/19 Rx capecitabine 500 mg tablet 1,500 mg PO BID tab 05/28/19 06/26/19 History prochlorperazine maleate 10 mg 10 mg PO Q6H PRN 05/28/19 06/26/19 History tablet levothyroxine 200 mcg tablet 1,200 mcg PO QAM #180 tab 06/06/19 06/26/19 Rx warfarin 5 mg tablet See Rx Instructions PO DAILY tab 06/09/19 06/26/19 History insulin glargine (U-100) 100 45 units SUBCUT HS #0 ml 06/17/19 06/26/19 Rx unit/mL (3 mL) subcutaneous pen potassium chloride ER 10 mEq 20 meq PO QAM #180 cap 06/17/19 06/26/19 Rx capsule,extended release Patient History Medical History Obesity (BMI 30.0-34.9) (Acute) Periprosthetic fracture around internal prosthetic knee joint (Acute) Congestive heart disease (Chronic) Arthritis (Acute) Atrial fibrillation (Acute) Depression (Acute) Hypercholesterolemia (Acute) MRSA colonization (Acute) Hypertension (Acute) Diabetes mellitus, type II (Acute) Colon carcinoma metastatic to multiple sites (Chronic) Femur fracture, left (Acute) Moderate protein malnutrition (Acute) Anasarca (Acute) Elevated lactic acid level (Acute) Elevated bilirubin (Acute) Lung cancer (Chronic) Multiple pulmonary nodules determined by computed tomography of lung (Chronic) Demand ischemia (Acute) Hypomagnesemia (Acute) Medical non-compliance (Chronic) Hypothyroidism (Acute) Rectal pain (Acute) 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 difficile colitis DM II (diabetes mellitus, type II), controlled H/O: lung cancer Left s/p L VATS HTN (hypertension) Hypothyroid Metastatic colon cancer in female lung mets Morbid obesity ANA (obstructive sleep apnea) Surgical History H/O carpal tunnel repair H/O total hysterectomy History of cardiac cath History of colostomy reversal S/P T&A (status post tonsillectomy and adenoidectomy) S/P colectomy S/P debridement Abdomen S/P total knee arthroplasty Bilateral Family History Other Coronary heart disease DM II (diabetes mellitus, type II), controlled Social History Preferred Language: Italian Communication Ability: Effective 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 Beliefs That Will Affect Care: None marital status: Current Living Situation: Spouse and Family current occupational status: unemployed and disabled Feels Safe at Home: Yes Safety Concerns: Feels Safe At This Time Smoking Status: Never smoker Second Hand Exposure: No ; Hx Alcohol Use: No Hx Substance Use: No Review of Systems Constitutional: no fever and no chills Eyes: no acute complaints Ear, Nose, Mouth, Throat: no acute complaints Respiratory: no cough and no dyspnea Cardiovascular: no chest pain Gastrointestinal: no abdominal pain, no nausea, no vomiting and no melena (resolved) Musculoskeletal: no acute issues Integumentary: no rash Neurologic: no dizziness Endocrine: + fatigue Physical Exam Constitutional: WD/WN, vitals as above Eyes: PERRL, conjunctivae normal, anicteric sclerae ENMT: external ear and nose normal, oropharynx normal Neck: normal visual inspection Respiratory: normal respiratory effort, lungs clear to auscultation Cardiovascular: RRR, no murmur, no edema Gastrointestinal (Abdomen): normal bowel sounds, soft, nontender, no hepatosplenomegaly Musculoskeletal: no cyanosis or clubbing, extremities motor strength 5/5 Skin: no rashes, warm and dry Psychiatric: A+Ox3, euthymic affect Results & Data Vital Signs (Past 12 Hours) Vital Signs Temp Pulse Resp BP Pulse Ox Pulse Ox 06/27/19 07:19 36.6 C 59 L 18 108/57 L 96 06/27/19 03:12 36.8 C 57 L 18 108/61 98 06/27/19 00:17 36.7 C 57 L 19 105/55 L 98 06/26/19 22:23 97 06/26/19 22:20 36.9 C 65 18 91/47 L 97 PG Care Time/CCT Total # of Minutes Spent Total Time Spent with Patient: Total time spent is greater than 50% in coordination of care (as documented) at patient's floor/unit and/or counseling patient:
--- NOTE | 2019-06-27 10:40 | Pharmacy Report ---
Pharmacy Glycemic Short Note 2 - Date of Service June 27, 2019 - Glycemic Short BSG Results (Last 24 hours): 06/26/19 06/26/19 06/27/19 14:46 22:49 03:11 Glucose 288 H POC Glucose 145 H 175 H 06/27/19 06/27/19 06:41 07:17 Glucose 76 POC Glucose 86 OUTPATIENT ANTIDIABETIC REGIMEN: * Lantus 45 units SQ qHS * Novolog SSI TID * HbA1c: 12.4% (06/27/19) ASSESSMENT: * Ms Bernard is a 53yo diabetic female admitted with s/s of upper GI bleed. * PMH is significant for metastatic colon CA (currently receiving chemo), CHF, hypothyroid, hepatitis, anemia, asthma * Patient was stated on a protonix drip on admission (mixed in dextrose), but that has been switched to IVP. * Patient was NPO last night on admission, but diet has been advanced to a diabetic diet this morning. * Patient received her home dose of Lantus last evening, which is likely too much for her during admission, based on data from past admissions. Will decrease dose tonight and adjust as needed moving forward. Novolog scale per data from past admissions. PLAN FOR INPATIENT GLYCEMIC CONTROL: * Basal insulin * Lantus 20 units SQ qHS (patient received home dose of 45 units last night -- BSGs below goal this morning) * Bolus insulin * NovoLog per scale ACHS or Q6hrs while NPO * Goal Range: Low 100 mg/dL - High 150 mg/dL * Correction Factor: 20 mg/dL/unit * Nutritional / Prandial insulin per carb ratio of 1 unit per 4 grams CHO consumed PLAN FOR DISCHARGE: * Patient A1c (12.4%) indicates very poorly controlled BSGs as an outpatient. * Patient with a complex medical problem list, so her goal is not necessarily for tight glycemic control. Would, however, like for some improvement in A1c from current value. * Recommend close f/u with outpatient provider to optimize glycemic control.
[2019-06-27] MEDS: INSULIN ASPART 100 UNITS/ML 3 ML PEN SC SCH ×4 (12:32→21:17)
[2019-06-27 14:30] LABS: Basophils # (auto) 0.01 K/uL (0-0.2); Basophils % (auto) 0.1 %; Eosinophils # (auto) 0.23 K/uL (0-0.5); Eosinophils % (auto) 2.8 %; Hematocrit (blood only) 31.1 % (37-47); Hemoglobin 10.9 g/dL (12.0-16.0); Immature Granulocytes # (auto) 0.01 K/uL (0.00-0.02); Immature Granulocytes % (auto) 0.1 %; Lymphocytes # (auto) 2.21 K/uL (1.2-3.4); Lymphocytes % (auto) 26.9 %; Mean Corpuscular Hemoglobin 31.1 pg (25-34); Mean Corpuscular Volume 88.6 fL (80-100); Mean Platelet Volume 8.8 fL (7.4-10.4); Monocytes # (auto) 0.59 K/uL (0.11-0.59); Monocytes % (auto) 7.2 %; Neutrophils # (auto) 5.17 K/uL (1.4-6.5); Neutrophils % (auto) 62.9 %; Platelet Count 191 K/uL (130-400); RDW Coefficient of Variation 20.5 % (11.5-14.5); RDW Standard Deviation 58.4 fL (36.4-46.3); Red Blood Count 3.51 M/uL (4.2-5.4); White Blood Count 8.22 K/uL (4.8-10.8)
[2019-06-27 14:50] LABS: Anisocytosis Present
[2019-06-27] MEDS: FLUTICASONE/SALMETEROL 250/50 (ADVAIR) 14 PUFF/1 INHALER INH SCH ×2 (18:06→21:10)
[2019-06-27] MEDS: DIGOXIN 0.125 MG TAB PO SCH (18:07)
[2019-06-27] MEDS ORDERED: INSULIN GLARGINE SOLOSTAR 100 UNITS/ML 3 ML PEN SQ SCH (21:00)
[2019-06-27] MEDS: PANTOprazole 40 MG in SYRINGE 0 ML IV SCH (21:12)
--- NOTE | 2019-06-27 22:35 | Hospitalist Progress Note ---
Date of Service June 27, 2019 Assessment & Plan (1) Acute upper gastrointestinal bleeding: Admits to inpatient on telemetry Patient was initally placed on NPO. Her hemoglobin has rupal relatively stable. will continue to monitor. Will incorporate her diet. Gi was consulted, appreciate input. Continue pantoprazole IV PRBC on hold give if hemoglobin less than 7 GI consult placed Hold warfarin for now, will likely resume at discharge. DVT prophylaxis with SCDs and teds (2) A-fib: Will hold warfarin since patient has upper GI bleed, however this appears to have improved. Continue monitoring on telemetry (3) Colon cancer: Patient has recurrent metastatic colon cancer We will consult oncology. (4) Congestive heart disease: Stable now, BNP pending. Continue home medicine: Metoprolol succinate 25 mg p.o. daily, potassium chloride 20 mEq extended release every morning, Spironolactone 12.5 mg p.o. daily, furosemide 40 mg p.o. twice daily, digoxin 0.125 mg p.o. daily. (5) Hypertension: As above (6) Diabetes mellitus, type II: Accu-Cheks before meals and at bedtime A1c pending Glycemic control per pharmacy Subjective Patient reports no new symptoms. She denies any bright red blood in her stool. She states her stool today has been brown. Patient denies any nausea, vomiting, diarrhea. Review of Systems Review of Systems: All systems reviewed & are unremarkable except as noted in HPI & below Physical Exam Physical Exam: Constitutional: WD/WN, vitals as above well developed Eyes: PERRL, conjunctivae normal, anicteric sclerae ENMT: external ear and nose normal, oropharynx normal Neck: trachea midline, no thyromegaly Respiratory: normal respiratory effort, lungs clear to auscultation Cardiovascular: RRR, no murmur, no edema Heart Sounds: normal S1 and normal S2 Palpation: + palpable S3 Vessels: + JVD and dorsalis pedis pulses present Chest (Breasts): normal inspection/palpation of breasts Gastrointestinal (Abdomen): normal bowel sounds, soft, nontender, no hepatosplenomegaly Musculoskeletal: no cyanosis or clubbing Skin: no rashes, warm and dry Neurologic: sensation intact Psychiatric: A+Ox3, euthymic affect Lymphatic: no cervical or axillary lymphadenopathy Results & Data Vital Signs (Past 12 Hours) Vital Signs Temp Pulse Pulse Resp BP Pulse Ox 06/27/19 18:07 68 06/27/19 16:04 36.8 C 56 L 19 101/54 L 98 06/27/19 11:17 36.7 C 65 17 111/65 99 PG Care Time/CCT Total # of Minutes Spent Total Time Spent with Patient: Total time spent is greater than 50% in coordination of care (as documented) at patient's floor/unit and/or counseling patient: (1) Colon cancer Colon location: unspecified part of colon Qualified Code(s): C18.9 - Malignant neoplasm of colon, unspecified (2) A-fib Atrial fibrillation type: chronic Qualified Code(s): I48.2 - Chronic atrial fibrillation
[2019-06-28] MEDS ORDERED: HEPARIN 100 UNIT/ML 5ML FLUSH FLUSH PRN (02:30)
[2019-06-28] MEDS: LEVOTHYROXINE SODIUM 200 MCG TABLET PO SCH (06:27)
[2019-06-28 06:56] LABS: INR 1.2 (0.9-1.1); Prothrombin Time 11.9 Seconds (9.0-12.0)
[2019-06-28 07:29] LABS: Albumin Level 2.7 gm/dl (3.4-5.0); BUN Creatinine Ratio 28.2 (10-20); Calcium 9.6 mg/dl (8.5-10.1); Est GFR (African American) 55.5; Est GFR (Non-African American) 47.9; Potassium 3.6 mmol/L (3.5-5.1)
[2019-06-28 07:32] LABS: Albumin Globulin Ratio 0.8 (0.9-2); Globulin 3.2 gm/dl (2.5-4.0); Total Protein 5.9 gm/dl (6.4-8.2)
[2019-06-28] MEDS: SUCRALFATE 1 GM TAB PO SCH ×4 (07:53→20:44)
[2019-06-28] MEDS: INSULIN ASPART 100 UNITS/ML 3 ML PEN SC SCH ×4 (08:41→20:40)
[2019-06-28] MEDS: FLUTICASONE/SALMETEROL 250/50 (ADVAIR) 14 PUFF/1 INHALER INH SCH ×2 (08:41→20:44)
[2019-06-28] MEDS: DOCUSATE SODIUM 100 MG CAP PO SCH ×2 (08:43→20:45)
[2019-06-28] MEDS: FUROSEMIDE 40 MG TAB PO SCH ×2 (08:43→09:11)
[2019-06-28] MEDS: MULTIVITAMIN TAB PO SCH (08:43)
[2019-06-28] MEDS: POTASSIUM CHLORIDE 10 MEQ TABCR PO SCH (08:44)
[2019-06-28] MEDS: PANTOprazole 40 MG in SYRINGE 0 ML IV SCH ×2 (08:45→20:42)
[2019-06-28] MEDS: PSYLLIUM 58.6% POWDER PACKET PO SCH (08:45)
[2019-06-28] MEDS: MAGNESIUM OXIDE 400 MG TAB PO SCH (08:45)
[2019-06-28] MEDS: SPIRONOLACTONE 25 MG TAB PO SCH (09:11)
[2019-06-28] MEDS: METOPROLOL SUCC 25MG EXT REL TAB PO SCH (09:11)
[2019-06-28] MEDS: LORATADINE 10 MG TAB PO SCH (09:28)
[2019-06-28 10:05] LABS: Hematocrit (blood only) 30.4 % (37-47); Hemoglobin 10.5 g/dL (12.0-16.0); Mean Corpuscular Hemoglobin 30.8 pg (25-34); Mean Corpuscular Hgb Conc 34.5 g/dL (32-36); Mean Corpuscular Volume 89.1 fL (80-100); Mean Platelet Volume 9.6 fL (7.4-10.4); Platelet Count 187 K/uL (130-400); RDW Coefficient of Variation 20.7 % (11.5-14.5); RDW Standard Deviation 59.9 fL (36.4-46.3); Red Blood Count 3.41 M/uL (4.2-5.4); White Blood Count 5.17 K/uL (4.8-10.8)
[2019-06-28] MEDS: CAPECITABINE PO SCH ×2 (10:11→21:58)
--- NOTE | 2019-06-28 12:00 | Consultation Report ---
DATE OF CONSULTATION: 06/27/2019 REASON FOR CONSULTATION: Question of upper gastrointestinal bleeding in this 53-year-old female patient with metastatic colorectal cancer. HISTORY OF PRESENT ILLNESS: The patient is a pleasant 53-year-old female patient, currently under my care at [facility] with metastatic colorectal cancer. Recently because of poor tolerance to other regimens, the patient was started on Xeloda 1500 mg p.o. b.i.d. for 14 days every 21-day cycle. The patient apparently reported some dark stool, but no overt rectal bleeding per se. She continues on warfarin for atrial fibrillation. Her INR was 2.6 on admission. The patient otherwise denies feeling poorly. CT scan of the abdomen and pelvis without contrast shows no significant change in the presacral/perirectal mass, presently measuring 3.3 cm. There is a mildly enlarged left iliac node and right lower lobe pulmonary nodules as well as few hepatic lesions favoring metastatic disease. Again for the most part, the patient has tolerated Xeloda reasonably well. It is well known; however, that Xeloda cannot interact with Coumadin prolonging her INR; however, that was not necessarily the case this admission. Nonetheless, a small dose of vitamin K was administered. The primary service asked me to render an opinion regarding her recent discovery of melena. Her hemoglobin was 11.5, hematocrit 31.7 on admission. Her WBCs and platelets were also unremarkable. Important to note her CEA is 62.3 which is not surprising considering her diagnosis. PAST MEDICAL HISTORY: Includes status post left leg fracture, periprosthetic fracture around prosthetic knee joint, congestive heart failure, osteoarthritis, atrial fibrillation, depression, hypercholesterolemia, colonization of MRSA, hypertension, type 2 diabetes mellitus, metastatic colorectal cancer, electrolyte dysfunction, hypothyroidism, gastroesophageal reflux disease and obstructive sleep apnea. PAST SURGICAL HISTORY: Includes carpal tunnel repair, hysterectomy, cardiac catheterization, history of colostomy reversal, status post T and A, colectomy, total knee arthroplasty. CURRENT MEDICATIONS: Include Breo Ellipta 1 inhalation daily, NovoLog U-100 insulin sliding scale subcutaneously t.i.d., albuterol 2-4 puffs inhaled q. 6 hours p.r.n., loratadine 10 mg p.o. daily, magnesium oxide 400 mg p.o. daily, hydrocortisone suppositories per rectum p.r.n., metoprolol 25 mg p.o. daily, ranitidine 150 mg p.o. b.i.d., digoxin 0.125 mg p.o. daily, furosemide 40 mg p.o. b.i.d., omeprazole 40 mg p.o. daily, spironolactone 12.5 mg p.o. daily, sucralfate 1 g p.o. a.c. and at bedtime, trazodone 50 mg p.o. at bedtime p.r.n., docusate sodium 100 mg p.o. b.i.d., multivitamin 1 p.o. daily, meloxicam 15 mg p.o. daily, oxycodone 5 mg p.o. q. 4 hours p.r.n., capecitabine 1500 mg p.o. b.i.d. dose daily for 14 days every 21-day cycle, Compazine 10 mg p.o. q. 6 hours p.r.n., levothyroxine 1200 mcg p.o. q.a.m., warfarin per instruction and potassium chloride ER 20 mEq p.o. daily. ALLERGIES: TO DAPTOMYCIN, IV DYE, BEE VENOM, CLINDAMYCIN, SULFA DRUGS, VANCOMYCIN, DULAGLUTIDE. SOCIAL HISTORY: The patient is , lives with her , permanently disabled, nonsmoker, nondrinker, non-illicit drug user. FAMILY HISTORY: Positive for coronary artery disease and diabetes mellitus. REVIEW OF SYSTEMS: CONSTITUTIONAL: Negative for fevers, chills or sweats. No overt weight loss. Her appetite remains vigorous. SKIN: No rashes or lesions. No history of dermatoses. HEENT: Negative for headaches, lightheadedness or dizziness. No acute visual or hearing deficits. No sinus symptoms, sore throat or dysphagia. LYMPH: No history of lymphoproliferative disease. CARDIAC: Positive history of coronary artery disease. No current angina or palpitations. PULMONARY: Positive history of COPD, currently on bronchodilators. She is not acutely short of breath, dyspneic or orthopneic. No cough or hemoptysis reported. GASTROINTESTINAL: Negative for abdominal pain, nausea, vomiting, diarrhea or constipation. Positive for melena. No mary rectal bleeding. GENITOURINARY: No hematuria, dysuria, urinary incontinence. PSYCHIATRIC: Positive for anxiety. MUSCULOSKELETAL: No overt muscle weakness. No current arthralgias or myalgias. ENDOCRINE: Positive for hypothyroidism and diabetes mellitus. NEUROLOGIC: Negative for seizure, stroke or migraine headache. HEMATOLOGIC: Positive for cytopenias attributable to treatment. PHYSICAL EXAMINATION: GENERAL: Very pleasant 53-year-old female, in no acute distress. VITAL SIGNS: Temperature 36.5, pulse 58, respiratory rate 17, blood pressure 95/53. SKIN: Without rash or lesion. No petechiae or ecchymosis noted. Turgor is fair. HEENT: Atraumatic, normocephalic. Eyes: PERRLA, EOMI. Sclerae nonicteric. No conjunctival injection. Nares patent without rhinorrhea or discharge. Throat is clear. Tongue is midline. The patient is edentulous. NECK: Supple. Trachea is midline. No JVD or thyromegaly. LYMPHS: No cervical or supraclavicular palpable nodes. HEART: Regular rate and rhythm. No clicks, rubs, murmurs or gallops. LUNGS: Clear to auscultation bilaterally. ABDOMEN: Soft, nontender, nondistended without palpable hepatosplenomegaly. EXTREMITIES: No calf tenderness or swelling. No clubbing, cyanosis or edema. NEUROLOGICAL: The patient is awake, alert and oriented x3. Cranial nerves II-XII are grossly intact. No gross motor or sensory deficits are noted. LABORATORY DATA: WBC count 5170, hemoglobin 10.5, platelet count 187,000. PT 11.9 seconds, INR 1.2. Sodium 139, potassium 3.6, chloride 100, carbon dioxide 32, creatinine 1.26, BUN 36, albumin 2.7. IMPRESSION: 1. Melena stools. 2. Metastatic colorectal cancer with local involvement. 3. Hypoalbuminemia. 4. Coumadin anticoagulation for atrial fibrillation. 5. Anemia attributable to current treatment. PLAN: I have been asked to look in on the patient. She is a [facility] patient with a history of colorectal cancer. The patient was recently started on salvage Xeloda because of poor tolerance of the regimens she previously received. Again, Xeloda can interact with Coumadin, which is manifested by increased INR which was not the case on admission. Perhaps she may have a mild upper GI bleed resulting in melena. I would expect bleeding from the lower part of the bowel to be a much more prominent if it was secondary to tumor encroachment. She received vitamin K and would slowly reincorporate her anticoagulation to reduce her risk of stroke. Her hemoglobin was not impressively decreased on admission. Quite frankly, I think she could be followed as an outpatient at this juncture. I am not sure how ambitious Gastroenterology is to perform EGD. The patient's prognosis is poor, but nonetheless wishes to continue treatment. She does not require transfusional support. By the looks of her albumin, she needs to work on her protein intake a little bit. She states her appetite has been quite good as of late. The patient is seen regularly in our office and would feel comfortable with discharging her home with close oncologic followup. I have nothing further to add at this time. Thank you very much for allowing me to participate in her care. ALEXA
[2019-06-28] MEDS ORDERED: INSULIN GLARGINE SOLOSTAR 100 UNITS/ML 3 ML PEN SQ ONE (12:30)
[2019-06-28] MEDS: DIGOXIN 0.125 MG TAB PO SCH (17:02)
[2019-06-28] MEDS: OXYCODONE HCL IR 5 MG TAB (IMMEDIATE RELEASE) PO PRN (20:42)
[2019-06-28] MEDS: SIMETHICONE 80 MG CHEW PO PRN (20:45)
[2019-06-28] MEDS ORDERED: INSULIN GLARGINE SOLOSTAR 100 UNITS/ML 3 ML PEN SQ SCH (21:00)
--- NOTE | 2019-06-28 22:42 | Hospitalist Progress Note ---
Date of Service June 28, 2019 Assessment & Plan (1) Acute upper gastrointestinal bleeding: Admits to inpatient on telemetry vitals signs at goal. Hemoglobin has been gradually decreasing. Continue pantoprazole IV INR subtherapeutic PRBC on hold give if hemoglobin less than 7 GI consult placed: no inpatient scope planned as of yet Hold warfarin, but will likely restart tomorrow on 06/29 DVT prophylaxis with SCDs and teds (2) A-fib: Will hold warfarin since patient has upper GI bleed: her hemoglobin has been gradualy leveling off. Continue monitoring on telemetry (3) Colon cancer: Patient has recurrent metastatic colon cancer We will consult oncology. Appreciate input (4) Congestive heart disease: Stable now, BNP 1300 Continue home medicine: Metoprolol succinate 25 mg p.o. daily, potassium chloride 20 mEq extended release every morning, Spironolactone 12.5 mg p.o. daily, furosemide 40 mg p.o. twice daily, digoxin 0.125 mg p.o. daily. (5) Hypertension: As above (6) Diabetes mellitus, type II: Accu-Cheks before meals and at bedtime A1c 12.4 Glycemic control per pharmacy will likely need followup with endo for better outpatient control of her diabetes. Subjective 53 yo female reports no new symptoms. Nurse had called me earlier to inform me that her blood pressure had been on the low (90s systolic); at home patient states her blood pressure has been low. Patient reports having small dark stools. Patient reports no new symptoms. Review of Systems Review of Systems: All systems reviewed & are unremarkable except as noted in HPI & below Physical Exam Physical Exam: Constitutional: WD/WN, vitals as above well developed Eyes: PERRL, conjunctivae normal, anicteric sclerae ENMT: external ear and nose normal, oropharynx normal Neck: trachea midline, no thyromegaly Respiratory: normal respiratory effort, lungs clear to auscultation Cardiovascular: RRR, no murmur, no edema Heart Sounds: normal S1 and normal S2 Palpation: + palpable S3 Vessels: + JVD and dorsalis pedis pulses present Chest (Breasts): normal inspection/palpation of breasts Gastrointestinal (Abdomen): normal bowel sounds, soft, nontender, no hepatosplenomegaly Musculoskeletal: no cyanosis or clubbing Skin: no rashes, warm and dry Neurologic: sensation intact Psychiatric: A+Ox3, euthymic affect Lymphatic: no cervical or axillary lymphadenopathy Results & Data Vital Signs (Past 12 Hours) Vital Signs Temp Pulse Pulse Resp BP Pulse Ox 06/28/19 19:02 36.9 C 63 18 91/47 L 98 06/28/19 16:38 63 06/28/19 15:17 37.0 C 64 18 116/59 L 99 06/28/19 12:23 104/54 L 06/28/19 11:42 36.5 C 56 L 18 94/42 L 99 PG Care Time/CCT Total # of Minutes Spent Total Time Spent with Patient: Total time spent is greater than 50% in coordination of care (as documented) at patient's floor/unit and/or counseling patient: (1) Colon cancer Colon location: unspecified part of colon Qualified Code(s): C18.9 - Malignan t neoplasm of colon, unspecified (2) A-fib Atrial fibrillation type: chronic Qualified Code(s): I48.2 - Chronic atrial fibrillation
[2019-06-29 05:44] LABS: INR 1.2 (0.9-1.1); Prothrombin Time 12.1 Seconds (9.0-12.0)
[2019-06-29 05:54] LABS: Albumin Level 2.6 gm/dl (3.4-5.0); Calcium 9.3 mg/dl (8.5-10.1); Creatinine Clr Calc Pharmacy 48.9 ml/min; Est GFR (African American) 70.9; Est GFR (Non-African American) 61.1; Potassium 3.8 mmol/L (3.5-5.1)
[2019-06-29 05:57] LABS: Albumin Globulin Ratio 0.8 (0.9-2); Bilirubin,Total 1.7 mg/dl (0.2-1); Globulin 3.1 gm/dl (2.5-4.0); Total Protein 5.7 gm/dl (6.4-8.2)
[2019-06-29] MEDS ORDERED: INSULIN ASPART 100 UNITS/ML 3 ML PEN SC SCH ×2 (07:30→11:30)
[2019-06-29 08:21] LABS: Hematocrit (blood only) 31.8 % (37-47); Hemoglobin 10.9 g/dL (12.0-16.0); Mean Corpuscular Hemoglobin 31.1 pg (25-34); Mean Corpuscular Hgb Conc 34.3 g/dL (32-36); Mean Corpuscular Volume 90.9 fL (80-100); Mean Platelet Volume 9.4 fL (7.4-10.4); Platelet Count 177 K/uL (130-400); RDW Coefficient of Variation 21.1 % (11.5-14.5); White Blood Count 4.74 K/uL (4.8-10.8)
[2019-06-29] MEDS: SUCRALFATE 1 GM TAB PO SCH ×2 (08:24→11:53)
[2019-06-29] MEDS: MAGNESIUM OXIDE 400 MG TAB PO SCH (08:25)
[2019-06-29] MEDS: POTASSIUM CHLORIDE 10 MEQ TABCR PO SCH (08:25)
[2019-06-29] MEDS: DOCUSATE SODIUM 100 MG CAP PO SCH (08:26)
[2019-06-29] MEDS: LORATADINE 10 MG TAB PO SCH (08:26)
[2019-06-29] MEDS: FLUTICASONE/SALMETEROL 250/50 (ADVAIR) 14 PUFF/1 INHALER INH SCH (08:26)
[2019-06-29] MEDS: METOPROLOL SUCC 25MG EXT REL TAB PO SCH (08:27)
[2019-06-29] MEDS: MULTIVITAMIN TAB PO SCH (08:27)
[2019-06-29] MEDS: CAPECITABINE PO SCH (08:28)
[2019-06-29] MEDS: PANTOprazole 40 MG in SYRINGE 0 ML IV SCH (08:28)
[2019-06-29 08:48] LABS: BUN Creatinine Ratio 35.2 (10-20); Creatinine Clr Calc Pharmacy 51.3 ml/min; Est GFR (African American) 74.4; Est GFR (Non-African American) 64.2; Potassium 3.5 mmol/L (3.5-5.1)
[2019-06-29] MEDS ORDERED: FUROSEMIDE 40 MG TAB PO ONE (10:13)
[2019-06-29] MEDS ORDERED: SPIRONOLACTONE 25 MG TAB PO STA (10:14)
[2019-06-29] MEDS: PSYLLIUM 58.6% POWDER PACKET PO SCH (10:30)
[2019-06-29] MEDS: SIMETHICONE 80 MG CHEW PO PRN (12:22)
--- NOTE | 2019-06-29 12:49 | Progress Note ---
DATE: 06/29/2019 DIAGNOSES: 1. Suspected upper gastrointestinal bleeding. 2. Metastatic colorectal cancer. 3. Hypertension. 4. Atrial fibrillation. 5. Coumadin anticoagulation. SUBJECTIVE: The patient was seen and examined at bedside this morning. From a clinical standpoint, not much has changed. Not sure if gastroenterology is on consult yet. Apparently, her Coumadin remains on hold. Her hemoglobin has remained stable otherwise. She continues Xeloda as recommended. Presently, her PT and INR are corrected. Nursing reports no overnight difficulties. OBJECTIVE: GENERAL: A very pleasant 53-year-old female. Awake, alert and appropriate, in no acute distress. VITAL SIGNS: Temperature 36.7, pulse 52, respiratory rate 18, blood pressure 97/45. SKIN: Without rash or lesion. HEENT: Oral mucosa without erythema or ulcerations. Dentation in poor repair. NECK: Supple. Trachea midline. HEART: Regular rate and rhythm. LUNGS: Clear to auscultation bilaterally. ABDOMEN: Soft, nontender, nondistended. EXTREMITIES: No clubbing, cyanosis or edema. NEUROLOGIC: The patient is grossly intact. LABORATORY DATA: WBC count 4740, hemoglobin 10.9, platelet count 177,000. Her PT is 12.1 seconds, INR 1.2. Sodium 141, potassium 3.5, chloride 103, carbon dioxide 30, creatinine 0.99, BUN 35. IMPRESSION: 1. Suspected upper gastrointestinal bleeding. 2. Metastatic colorectal cancer. 3. Atrial fibrillation. 4. Coumadin anticoagulation. PLAN: The patient again was seen and examined. Discussed with her my clinical suggestion which will be to proceed to discharge at this point. GI obviously is not in favor of putting hold through procedure and I would agree that heal I believe would be minimal. This lady should be on at least prophylactic anticoagulation moving forward perhaps we can compromise and keep her INR on the low side. I do not like the idea of having her completely off anticoagulation with her prior leg fracture. She is not ambulating regularly and definitely set up for a major thrombotic event. I think the risk of not anticoagulating is greater than the risk of bleeding and perhaps providing transfusional support as necessary. From this point on I will sign off and plan on seeing hold as customary at her next [facility] appointment. She also needs to be set up for anticoagulation clinic upon discharge.
--- NOTE | 2019-07-01 13:00 | Discharge Summary ---
Date of Service June 29, 2019 Admission HPI Per Admitting Provider Patient is a 53 years old female with past medical history of metastatic colon cancer currently on chemotherapy, hypertension, hypothyroidism, A. fib's, hepatitis, mitral regurgitation, anemia, asthma, diabetes mellitus type 2, MRSA colonization, presents to the emergency room with a complaint of dark stool since this morning. Patient reports that amount of dark stool was not large. Patient is currently on warfarin for A. fib's and also on chemotherapy for metastatic colon cancer. Patient denies fever chills chest pain shortness of breath abdominal pain frequency urgency hematemesis hematuria dysuria. Labs are reviewed: White blood cells 6.25, hemoglobin 11.5, hematocrit 31.7, platelets 199, PT 24.5, INR 2.6, APTT 31.9, sodium 136, potassium 3.6, chloride 9.6, BUN 28, creatinine 1.112 GFR 55.3 BUN/creatinine 25.3 glucose 288 total bili 2.3 AST 17 ALT 14, CEA 62.[address] abdomen pelvis without contrast: Shows no significant changes in size of 3.3 cm presacral/perirectal mass adjacent to rectosigmoid anastomosis. This likely reflects recurrent malignancy. No changes in a mildly enlarged left iliac node. Right lower lobe pulmonary nodules and few hepatic lesions which favor metastatic disease. Cholelithiasis. No evidence of acute cholecystitis. No evidence for bowel obstruction. Decision was made to admit patient and follow-up on blood count as well as on bowel movements for fecal occult blood. Principal Diagnosis Acute upper GI bleed Discharge Exam Constitutional: WD/WN, vitals as above well developed Eyes: PERRL, conjunctivae normal, anicteric sclerae ENMT: external ear and nose normal, oropharynx normal Neck: trachea midline, no thyromegaly Respiratory: normal respiratory effort, lungs clear to auscultation Cardiovascular: RRR, no murmur, no edema Heart Sounds: normal S1 and normal S2 Chest (Breasts): normal inspection/palpation of breasts Gastrointestinal (Abdomen): normal bowel sounds, soft, nontender, no hepatosplenomegaly Musculoskeletal: no cyanosis or clubbing Skin: no rashes, warm and dry Neurologic: sensation intact Psychiatric: A+Ox3, euthymic affect Lymphatic: no cervical or axillary lymphadenopathy Discharge Data Allergies Allergy/AdvReac Type Severity Reaction Status Date / Time daptomycin Allergy Severe SHORTNESS Verified 06/26/19 14:34 OF BREATH Iodinated Contrast Media Allergy Severe Anaphylaxis Verified 06/26/19 14:34 bee venom protein (honey bee) Allergy Intermediate HIVES Verified 06/26/19 14:34 clindamycin Allergy Intermediate HIVES Verified 06/26/19 14:34 Sulfa (Sulfonamide Allergy Intermediate BACTRIM-HIV Verified 06/26/19 14:34 Antibiotics) ES trimethoprim Allergy Intermediate HIVES Verified 06/26/19 14:34 vancomycin Allergy Intermediate RASH Verified 06/26/19 14:34 dulaglutide AdvReac Severe BRAND-TRULICITY, Verified 06/26/19 14:34 SEVERE GI UPSET, CONSTIPATION Consultations 06/26/19 17:19 ED Decision to Admit Stat 06/26/19 22:46 Consult Gastroenterology Routine 06/26/19 22:49 Consult Hematology Routine Ordered Studies 06/26/19 18:26 CT abd pelvis wo con Stat Hospital Course (1) Acute upper gastrointestinal bleeding: Admits to inpatient on telemetry vitals signs at goal. Hemoglobin has been gradually decreasing. Continue pantoprazole IV INR subtherapeutic PRBC on hold give if hemoglobin less than 7 GI consult placed: no inpatient scope planned as of yet On day of discharge: Hemoglobin has been relatively stable. will resume warfarin, however will defer to INR clinic if they would like to continue this. recommend rechecking hemoglobin in about 3-5 days. (2) A-fib: Will held warfarin since patient has upper GI bleed: as hemoglobin has stabilized, will resume warfarin. (3) Colon cancer: Patient has recurrent metastatic colon cancer We will consult oncology. Appreciate input (4) Congestive heart disease: Stable now, BNP 1300 Continue home medicine: Metoprolol succinate 25 mg p.o. daily, potassium chloride 20 mEq extended release every morning, Spironolactone 12.5 mg p.o. daily, furosemide 40 mg p.o. twice daily, digoxin 0.125 mg p.o. daily. (5) Hypertension: As above (6) Diabetes mellitus, type II: Accu-Cheks before meals and at bedtime A1c 12.4 Glycemic control per pharmacy will likely need followup with endo for better outpatient control of her diabetes. will defer to PCP Total Time Total Time Spent Total Time Spent (In Minutes): 35 Total Time Includes: Examination of the Patient, Discharge Planning and Medication Reconciliation Discharge Plan Discharge Items Patient Disposition: Home - Self-Care Reason For Visit: GI BLEED Discharge Diagnosis: Gi Bleed Activity: Resume your previous activity Non-emergency contact: Primary Care Provider Call non-emergency contact if: you have any medication questions Follow-up/Referrals: Madison Vivar MD [Primary Care Provider] - Diet: Regular Addtl Attending Provider Instructions: Will resume coumadin as you will see Anticoagulation clinic on Sunday. INR will still be subtherapeutic at the time of your appointment Will defer if anticoag clinic wants to continue with coumadin Check cbc on Sunday. Pending Studies at Discharge: No Stand-Alone Forms: My [facility] Medications and DC Order Prescriptions: Continued digoxin 125 mcg tablet 0.125 mg PO DAILY RF: 0 warfarin 5 mg tablet See Patient Comments PO DAILY RF: 0 prochlorperazine maleate [Compazine] 10 mg tablet 10 mg PO Q6H PRN (Reason: Nausea) RF: 0 capecitabine [Xeloda] 500 mg tablet 1,500 mg PO BID RF: 0 levothyroxine [Levoxyl] 200 mcg tablet 1,200 mcg PO QAM Qty: 180 RF: 0 Lantus Solostar U-100 Insulin 100 unit/mL (3 mL) insulin pen 45 units SUBCUT HS Qty: 0 RF: 0 potassium chloride 10 mEq capsule, extended release 20 meq PO QAM Qty: 180 RF: 3 oxycodone 5 mg tablet 5 mg PO Q4H PRN (Reason: pain) Qty: 20 RF: 0 hydrocortisone [Proctosol HC] 2.5 % cream with perineal applicator 1 appln AZ HS PRN (Reason: hemorrhoids) Qty: 30 RF: 0 ranitidine HCl [Zantac] 150 mg Tablet 150 mg PO BID RF: 0 metoprolol succinate 25 mg Tablet Extended Release 24 Hr 25 mg PO DAILY RF: 0 furosemide 40 mg tablet 40 mg PO BID RF: 0 trazodone 50 mg tablet 50 mg PO HS PRN (Reason: Sleep) RF: 0 spironolactone 25 mg tablet 12.5 mg PO DAILY RF: 0 omeprazole 40 mg capsule,delayed release(DR/EC) 40 mg PO DAILY RF: 0 sucralfate 1 gram Tablet 1 g PO ACHS RF: 0 acetaminophen 500 mg Tablet 500 mg PO Q4 PRN (Reason: mild pain/fever) RF: 0 psyllium husk [Fiber-Caps (psyllium husk)] 0.52 gram Capsule 0.52 g PO DAILY RF: 0 docusate sodium 100 mg Capsule 100 mg PO BID Qty: 60 RF: 0 multivitamin [Daily-Lilli] Tablet 1 tab PO QAM Qty: 30 RF: 0 magnesium oxide 400 mg (241.3 mg magnesium) Tablet 400 mg PO DAILY RF: 0 albuterol sulfate [Ventolin HFA] 90 mcg/actuation Hfa Aerosol Inhaler 2 - 4 puff INHALATION Q6H PRN (Reason: asthma) RF: 0 loratadine 10 mg Tablet 10 mg PO DAILY RF: 0 Novolog PenFill U-100 Insulin 100 unit/mL Cartridge 1 sliding scale dose SUBCUT TID RF: 0 Breo Ellipta 100-25 mcg/dose Blister With Device 1 inh INHALATION DAILY MDD 1 dose in 24 hours RF: 0 Discontinued meloxicam 15 mg tablet 15 mg PO DAILY Qty: 30 RF: 0 Discharge Orders: Discharge Order (Routine); Ordered 06/29/19 Ordered By: Yousif Win/Other Patient Handouts: Diabetes Heart Disease, Diabetes Machine Stuffer Complications, Hyperglycemia, Hypoglycemia, Diabetes Resources, Diabetes Type 2 Coping, Blood Sugar Check, Diabetes Healthy Meals, Diabetes Carbs, Diabetes Eating Out, Blood Sugar Manage Exercise, Diabetes Exercise Benefits, Diabetes Exercise Get Started, Diabetes Activity Tips Admission Data Admit Date/Time: 06/26/19 20:09 Attending Provider: Yousif French Admit Provider: Jatin Hatfield Primary Care Provider: Madison Vivar Other Providers: Jatin Hatfield ; Nicanor Burns ; Bert Quintana V Other Interventions: Discharge Summary Assessment (RN) Last Done: 06/29/19 12:38 DC Date/Time DO NOT enter until pt leaves facility: 06/29/19 15:21
== END 2019-06-29 15:21 | disposition home or self-care (01) | DRG 378 ==
LOC: ED 13:19 → SUATTDRO 20:09 → 2E 20:09

== ENCOUNTER 2019-11-05 09:21 | Inpatient (IN) ==
[2019-11-05] MEDS ORDERED: fentaNYL citrate 100 MCG/2 ML VIAL IV STA ×3 (09:41→12:36)
[2019-11-05 09:51] LABS: Basophils # (auto) 0.01 K/uL (0-0.2); Basophils % (auto) 0.1 %; Eosinophils # (auto) 0.16 K/uL (0-0.5); Eosinophils % (auto) 1.6 %; Hemoglobin 12.9 g/dL (12.0-16.0); Immature Granulocytes # (auto) 0.06 K/uL (0.00-0.02); Immature Granulocytes % (auto) 0.6 %; Lymphocytes # (auto) 1.51 K/uL (1.2-3.4); Lymphocytes % (auto) 14.7 %; Mean Corpuscular Hemoglobin 35.1 pg (25-34); Mean Corpuscular Hgb Conc 37.9 g/dL (32-36); Mean Corpuscular Volume 92.6 fL (80-100); Mean Platelet Volume 9.6 fL (7.4-10.4); Monocytes # (auto) 0.62 K/uL (0.11-0.59); Neutrophils # (auto) 7.92 K/uL (1.4-6.5); Platelet Count 237 K/uL (130-400); RDW Coefficient of Variation 16.1 % (11.5-14.5); RDW Standard Deviation 54.1 fL (36.4-46.3); Red Blood Count 3.67 M/uL (4.2-5.4); White Blood Count 10.28 K/uL (4.8-10.8)
[2019-11-05 10:05] LABS: Prothrombin Time 28.2 Seconds (9.0-12.0)
[2019-11-05 10:14] LABS: Albumin Globulin Ratio 0.8 (0.9-2); Albumin Level 2.8 gm/dl (3.4-5.0); BUN Creatinine Ratio 13.9 (10-20); Bilirubin,Total 2.2 mg/dl (0.2-1); Calcium 9.4 mg/dl (8.5-10.1); Creatinine Clr Calc Pharmacy 47.6 ml/min; Est GFR (African American) 77.2; Est GFR (Non-African American) 66.6; Globulin 3.5 gm/dl (2.5-4.0); Potassium 2.7 mmol/L (3.5-5.1); Total Protein 6.3 gm/dl (6.4-8.2); Troponin I 0.08 ng/ml (0-0.045)
[2019-11-05 10:15] LABS: Appearance Urine Clear (Clear); Bilirubin Urine Negative (Negative); Blood Urine Negative (Negative); Color Urine Yellow; Glucose Urine UA 3+ (Negative); Ketones Urine Negative (Negative); Leukocyte Esterase Urine Negative (Negative); Nitrite Urine Negative (Negative); Protein Urine Negative (Negative); Specific Gravity Urine 1.027 (1.000-1.030); Urobilinogen Urine Negative (Negative)
[2019-11-05] MEDS ORDERED: POTASSIUM CHLORIDE / WTR 10 MEQ/100 ML PLCT IV ONE (10:17)
[2019-11-05 10:24] LABS: Beta-Hydroxybutyrate 7.33 mg/dl (0.2-2.81)
--- NOTE | 2019-11-05 10:33 | CT Scan Report ---
ABDOMEN AND PELVIS CT WITHOUT CONTRAST CT DOSE: 297.00 mGycm HISTORY: fall, epigastric, L hip pain TECHNIQUE: Multiaxial CT images of the abdomen and pelvis were performed without contrast. A dose lo wering technique was utilized adhering to the principles of ALARA. COMPARISON STUDY: Abdomen and pelvis CT 10/07/2019. FINDINGS: A tip of a central venous catheter is seen at the superior cava show junction. Slight incre ase in size in the 11 mm metastatic nodule within the base of the right lower lobe. Suture material a gain noted within the left lung base. No pneumoperitoneum. No pneumatosis. There is an angulated left intertrochanteric hip fracture. This is also slightly impacted. No dislocation. No change in the mil d superior endplate compression deformity at L1. The heart remains mildly enlarged. Mild body wall ed ayde. Small right anterior fat-containing abdominal wall hernia. Stable mildly enlarged and partially calcified left iliac lymph node measuring 1 cm in short axis diameter. There is a Hirsch catheter with in the bladder. This likely accounts for the gas within the bladder lumen. The uterus is surgically a bsent. No significant change in the 3 cm irregular soft tissue density at the presacral space with a few additional smaller adjacent soft tissue nodules. This abuts and likely invades into the posterior rectal wall. Tiny focus of gas within this lesion is also unchanged and is consistent with a small f istula. There are suture material at the rectum and this soft tissue abnormality. This is consistent with postoperative change. No evidence for bowel obstruction. Normal appendix. No retroperitoneal lym phadenopathy. A few punctate gallstones. No gallbladder wall thickening. The unenhanced pancreas, spl een, right adrenal gland, kidneys are unremarkable. No hydronephrosis. Stable left adrenal gland thic kening. A few scattered hepatic hypodense lesions are again noted. Dominant lesion within the left he patic lobe measures 1.7 cm, previously measuring 1.1 cm. These have slightly increased in size. Stabl e lucent lesion within the right acetabulum. IMPRESSION: 1. A left intertrochanteric hip fracture. 2. Slight increase in size in the hepatic lesions and the right lower lobe pulmonary nodule consisten t with progression of metastatic disease. 3. No change in the lucent lesions within the right acetabulum. 4. Redemonstration of the irregular soft tissue abnormality within the presacral space which abuts an d likely invades into the posterior rectal wall. There are a few additional adjacent soft tissue nodu les. This also likely represents residual metastatic disease. ACT 112: Negative or not required by law. Electronically signed by: Anthony Davis M.D. 11/05/2019 10:32 AM
--- NOTE | 2019-11-05 10:35 | CT Scan Report ---
CT chest wo con CT DOSE: 144.02 mGycm CLINICAL HISTORY: 53 years-old Female with fall, sternal pain. Acute mid chest and sternal pain stat us post fall. History of colon cancer. TECHNIQUE: Multiaxial CT images of the chest were performed without contrast. A dose lowering techni que was utilized adhering to the principles of ALARA. COMPARISON: CT abdomen and pelvis of same day, chest CT 05/13/2019 FINDINGS: Unremarkable thyroid. Left subclavian Ynqcim-i-Bcks catheter distal tip terminates within the right a trium. Moderate cardiomegaly. No pericardial effusion. Coronary arterial calcifications. No thoracic aortic aneurysm. Dilated main pulmonary artery, 3.1 cm may reflect pulmonary arterial hypertension. T here are a few prominent left supraclavicular lymph nodes redemonstrated measuring up to 5 mm. Paratr acheal and AP window lymph nodes are also noted which have mildly decreased from comparison. A precar inal 9 mm lymph node previously measured 11 mm. No new or progressive adenopathy. Limited evaluation of the lung parenchyma secondary to respiratory motion artifact. Postoperative sammy nges of the left lower lobe suggest prior wedge resection. 5 mm solid nodule of the left lower lobe, image 126 series 4 previously measured 6 mm. 6 mm nodule the super segment left lower lobe previously measured 8 mm. 7 mm right upper lobe pulmonary nodule previously measured 1.4 cm. Additional nodules have also decreased in size from comparison. No new or progressive disease identified. No overt pulm onary edema, pneumothorax, pleural effusion or airspace consolidation typical for pneumonia. Central airways appear patent. No acute processes of the imaged upper abdomen. Ill-defined hepatic lesions suggestive of metastasis redemonstrated. Soft tissues are unremarkable. No definite lytic or blastic osseous lesions. Degenera tive changes of the shoulders and spine. No acute fracture identified, specifically the sternum appea rs intact. IMPRESSION: 1. No acute intrathoracic abnormality identified, specifically no acute fracture or pneumothorax. 2. Thoracic and upper abdominal metastatic disease redemonstrated as above with findings compatible w ith positive response to therapy. 3. Cardiomegaly. 4. Additional findings as above. ACT 112: Negative or not required by law. Electronically signed by: Jayjay Crowder M.D. 11/05/2019 10:34 AM
[2019-11-05] MEDS ORDERED: MODERATE STRESS LEVEL ONE (11:39)
[2019-11-05] MEDS ORDERED: INSULIN PROTOCOL GOAL RANGE ONE (11:39)
[2019-11-05] MEDS ORDERED: INSULIN REGULAR 250 UNITS in SODIUM CHLORIDE 0.9% 247.5 ML IV SCH (11:45)
--- NOTE | 2019-11-05 12:10 | XRay Report ---
XR chest 1V portable CLINICAL HISTORY: 53 years-old Female presenting with fall, pain in the left shoulder and femur. TECHNIQUE: Portable upright AP view of the chest was obtained. COMPARISON: 08/26/[address] chest from 11/05/2019. FINDINGS: Left subclavian Mediport terminates in the superior cavoatrial junction and has been accessed. Cardia c silhouette mildly enlarged. Bandlike opacity at the left lung base unchanged. The presence of under lying pulmonary nodules is better appreciated on chest CT. No pleural effusion or pneumothorax. Degen erative changes of the thoracic spine. Upper abdomen normal. IMPRESSION: 1. No acute cardiopulmonary disease. 2. Mild cardiomegaly. 3. Underlying pulmonary metastatic disease better appreciated on chest CT. ACT 112: Negative or not required by law. Electronically signed by: Riaz Blackwood M.D. 11/05/2019 12:09 PM
--- NOTE | 2019-11-05 12:12 | XRay Report ---
XR pelvis 1-2V routine CLINICAL HISTORY: 53 years-old Female presenting with fall at home this morning, L pain. TECHNIQUE: Single frontal view of the pelvis was obtained. COMPARISON: 10/03/2019. FINDINGS: Interval development of a basicervical left femoral neck fracture. Significant coxa vera angulation. The fracture plane may be mildly comminuted with displacement of a greater trochanter fracture fragme nt. Significant underlying osteopenia. The left femoral head remains congruent in the acetabulum. The bony pelvis is grossly intact. Lower lumbar spine normal. Right hip joint grossly normal. Suture lines project over the pelvis. IMPRESSION: 1. Significantly angulated and mildly comminuted basicervical left femoral neck fracture. 2. Underlying significant osteopenia. ACT 112: Negative or not required by law. Electronically signed by: Riaz Blackwood M.D. 11/05/2019 12:11 PM
--- NOTE | 2019-11-05 12:20 | XRay Report ---
XR femur LT 2V routine, XR knee LT 3V HISTORY: 53 years-old Female fall pain acute left femur and knee pain status post fall COMPARISON: Pelvis radiograph 10/03/2019 TECHNIQUE: 2 views of the left femur and 3 views of the left knee FINDINGS: FEMUR: There is an acute mildly impacted fracture of the intertrochanteric left femur with apex superolatera l angulation. Femoral head is intact. No dislocation. Demineralized appearance the bones. Mild to mod erate left hip osteoarthritis. Mild soft tissue swelling. Plate and screw fusion of the distal femur appears intact. KNEE: Remote fracture deformity of the distal femur. Intact plate and screw fusion. Limited exam secondary to positioning. The joint arthroplasty. Small joint effusion. Ossifications are noted inferior to the patella. No definite acute fracture identified. IMPRESSION: Acute impacted and angulated intratrochanteric fracture of the left femur. ACT 112: Negative or not required by law. The above report was generated using voice recognition software. It may contain grammatical, syntax o r spelling errors. Electronically signed by: Jayjay Crowder M.D. 11/05/2019 12:18 PM
--- NOTE | 2019-11-05 12:22 | XRay Report ---
XR shoulder LT min 2V routine CLINICAL HISTORY: 53 years-old Female presenting with fall at home this morning, left shoulder pain. TECHNIQUE: Internal rotation and Grashey views of the left shoulder were obtained. COMPARISON: None. FINDINGS: Significant underlying osteopenia. Left subclavian Mediport in place and accessed. This mildly degrad es image quality due to overlap at the glenohumeral joint. No acute fracture or malalignment. No adva nced degenerative change. No radiographic soft tissue abnormality. IMPRESSION: 1. No acute osseous injury allowing for image quality limitations as above. 2. Significant osteopenia. ACT 112: Negative or not required by law. Electronically signed by: Riaz Blackwood M.D. 11/05/2019 12:21 PM
--- NOTE | 2019-11-05 12:49 | History & Physical Report ---
Date of Service November 05, 2019 Assessment & Plan (1) Fall: Appears mechanical due to her walker slipping out from under her, however certainly her electrolyte abnormalities and hyperglycemia may be contributory. Monitor on telemetry for arrhythmias. (2) Intertrochanteric fracture of left femur: Currently is not medically optimized for surgery at present Requirement for medically optimization would be clearance by her digital technician, not on CXR tomorrow (as appears to need IV fluids currently), INR at acceptable limits for anesthesia and orthopedics, and potassium/glucose stable as long as anesthesia ok to take her on an IV insulin drip. Consult [facility]. Place in traction when she gets to [place] - give Dilaudid prior to putting in traction. Can also order Ativan if needed. Reverse INR 3.0 with 5mg IV vitamin K MRSA node swab Pain control with dilaudid 0.25-0.5mg Q1H PRN Hirsch catheter placed in ER Vitamin D level with AM labs although high likelihood this is pathological with her metastatic colon cancer (3) Acute hypokalemia: Unclear cause but patient has had past issues with compliance. ?lasix use alone but patient reports dose not recently changed. No acute vomiting or diarrhea to explain. Placed on insulin drip initially in ER but given K 2.[address] on hold prior to repeating BMP. (4) Atrial flutter: Chronic atrial fibrillation however currently appears to be in flutter. Either way she appears rate controlled on her current medical regimen and digoxin level WNL. She is anticoagulated with warfarin which will be reversed for her operation. Vit K 5mg IV given on admission. Consult her digital technician (Gee) for cardiac clearance prior to operation (5) Chronic HFrEF (heart failure with reduced ejection fraction): Repeat TTE as I believe it has been over a year since her last one. Appears dry on exam rather than in acute exacerbation. She notes she takes lasix 40mg PO BID and spironolactone 12.5mg PO daily -> will place both on hold while rehydrating with IV fluids. Will need cardiac clearance prior to surgical intervention. (6) Mitral regurgitation: as above; makes it more likely she will end up having some pulmonary edema as we attempt to rehydrate her. (7) Colorectal cancer, stage IV: Hold further chemotherapy (capecitabine) at this time to enable fracture healing. Concerning that fracture may be pathological. (8) Diabetes mellitus, type II: Hyperglycemia and ketones noted on admission, no anion gap however so suspect she lives with a very elevated glucose and patient dose note hypoglycemic symptoms when glucose < 200 therefore she aims to keep her glucose higher. pH 7.44 on admission therefore not in DKA. Restart insulin drip once K > 3 and will continue to closely monitor potassium while on insulin drip. Appreciate glycemic control management of this. HbA1C with AM labs (9) Asthma: Continue Breo Ellipta (10) ANA (obstructive sleep apnea): Historical diagnosis although she still wears CPAP at home this has not been retested and she has lost considerable amounts of weight due to her cancer. Will keep on continuous pulse Ox overnight and if desaturating can order CPAP here otherwise patient may use her own if a family member brings it in. (11) Hypothyroidism: TSH 0.199 (August 2019). On very high levothyroxine dose 1200 mcg daily and given history of non-compliance I'd be concerned this dose has just continued to be increased when she just wasn't taking it. I am unclear on wh ether the recent low TSH was acted upon. 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 (12) GERD (gastroesophageal reflux disease): Switch omeprazole for pantoprazole as per hospital formulary (13) DVT prophylaxis: INR 3.0. Reversing with Vit K 5mg IV. PTINR daily (14) Discharge planning issues: PT/OT post operatively (not currently ordered as unclear weight bearing status at present. Possible need for placement on discharge. History of Present Illness Chief Complaint: Fall. Left hip pain Primary Care Provider: Madison Vivar MD Luisa Bernard is an unfortunate 53 year old female with metastatic colon cancer who presents to the ER due to left groin pain after falling at home around 8am today. She was trying to get to her commode with her walker when the walker slipped and she fell onto her left side with the walker under her. Patient was on the floor unable to get up until EMS arrived. She denies hitting her head, no loss of consciousness, headache or vomiting. No new focal weakness or change in sensation/speech or hearing. Her main complaint is her left groin pain from any left leg movement other than ankle plantar/dorsiflexion. Pain is currently 3/10 after multiple doses of fentanyl given by EMS and the ER however 10/10 on any movement. She denies any wrist pain/swelling. She does have some left shoulder pain however no fracture seen on XR of this area. Her tongue is dry as a bone however she says it is always like this and she denies any dizziness. Currently takes lasix 40mg PO BID and spironolactone for heart failure. Her glucose is 563 and she does note she likes to keep her glucose higher as she gets hypoglycemic symptoms when glucose < 200. Allergies Allergy/AdvReac Type Severity Reaction Status Date / Time daptomycin Allergy Severe SHORTNESS Verified 11/05/19 10:29 OF BREATH Iodinated Contrast Media Allergy Severe Anaphylaxis Verified 11/05/19 10:29 bee venom protein (honey bee) Allergy Intermediate HIVES Verified 11/05/19 10:29 clindamycin Allergy Intermediate HIVES Verified 11/05/19 10:29 Sulfa (Sulfonamide Allergy Intermediate BACTRIM-HIV Verified 11/05/19 10:29 Antibiotics) ES trimethoprim Allergy Intermediate HIVES Verified 11/05/19 10:29 vancomycin Allergy Intermediate RASH Verified 11/05/19 10:29 dulaglutide AdvReac Severe BRAND-TRULICITY, Verified 11/05/19 10:29 SEVERE GI UPSET, CONSTIPATION Home Medications Home Medications Medication Instructions Recorded Confirmed Type Breo Ellipta 1 inh INHALATION DAILY MDD 1 dose 06/11/18 11/05/19 History in 24 hours albuterol sulfate [Ventolin HFA] 2 - 4 puff INHALATION Q6H PRN 06/11/18 11/05/19 History insulin aspart U-100 [Novolog 1 sliding scale dose SUBCUT TID 06/11/18 11/05/19 History PenFill U-100 Insulin] magnesium oxide 400 mg PO QAM 06/11/18 11/05/19 History digoxin 125 mcg (0.125 mg) tablet 0.125 mg PO QAM 11/28/18 11/05/19 History acetaminophen 500 mg PO Q4 PRN 01/15/19 11/05/19 History furosemide 40 mg PO UD 01/15/19 11/05/19 History psyllium husk [Fiber-Caps 0.52 g PO DAILY 01/15/19 11/05/19 History (psyllium husk)] spironolactone 12.5 mg PO DAILY 01/15/19 11/05/19 History capecitabine 500 mg tablet 1,500 mg PO BID tab 05/28/19 11/05/19 History prochlorperazine maleate 10 mg 10 mg PO Q6H PRN 05/28/19 11/05/19 History tablet insulin glargine 100 unit/mL (3 45 units SUBCUT HS #0 ml 06/17/19 11/05/19 Rx mL) subcutaneous pen Oxygen Home #1 ea 07/01/19 10/22/19 History docusate sodium 100 mg capsule 100 mg PO Q2D cap 07/01/19 11/05/19 History diphenhydramine HCl 25 mg capsule 25 mg PO Q8H PRN 07/02/19 11/05/19 History ferrous sulfate 325 mg (65 mg 325 mg PO QAM tab 07/02/19 11/05/19 History iron) tablet metoprolol succinate 25 mg 50 mg PO QAM tab 07/02/19 11/05/19 History tablet,extended release 24 hr oxycodone 5 mg capsule 5 mg PO DAILY 07/02/19 11/05/19 History sucralfate 1 gram tablet 1 gm PO ONCE PRN tab 07/02/19 11/05/19 History trazodone 50 mg tablet 50 mg PO DAILY PRN 07/02/19 11/05/19 History lactase [Lactaid] 9,000 unit PO AC PRN 08/26/19 11/05/19 History potassium chloride 20 meq PO QAM 08/26/19 11/05/19 History simethicone 125 mg PO DAILY PRN 08/26/19 11/05/19 History blood-glucose meter #1 ea 09/18/19 10/22/19 Rx lancets #400 ea 09/18/19 10/22/19 Rx blood sugar diagnostic #400 ea 09/26/19 10/22/19 Rx levothyroxine 1,200 mcg PO QAM 10/07/19 11/05/19 History omeprazole 40 mg PO DAILY 10/07/19 11/05/19 History warfarin 1 mg tablet 2 mg PO DAILY tab 10/13/19 11/05/19 History Past Med/Surg History Medical History (Updated 11/05/19 @ 23:49 by Aashish Barroso MD) Anasarca (Acute) Anemia (Acute) Arthritis (Acute) Asthma (Acute) Atrial fibrillation C. difficile colitis Chronic HFrEF (heart failure with reduced ejection fraction) Colon carcinoma metastatic to multiple sites (Chronic) Depression (Acute) Diabetes mellitus, type II (Acute) Dyslipidemia (Chronic) Dysphagia (Acute) Esophagitis (Resolved) GERD (gastroesophageal reflux disease) (Chronic) H/O: lung cancer Left s/p L VATS Hepatitis (Chronic) HTN (hypertension) (Chronic) Hypothyroidism (Inactive) long-term (current) use of anticoagulants (Acute) Lung cancer (Chronic) Metastatic colon cancer in female lung mets Mitral regurgitation (Chronic) "echo 10/14/15: mild-mod mitral regurg " Moderate protein malnutrition (Inactive) Morbid obesity MRSA colonization (Acute) Multiple pulmonary nodules determined by computed tomography of lung (Chronic) Obesity (BMI 30.0-34.9) (Inactive) ANA (obstructive sleep apnea) (Chronic) Periprosthetic fracture around internal prosthetic knee joint (Acute) 01/16/2019. GETA. MAC 3, grade 2 view. 7.0ETT. Rectal pain (Acute) Surgical History H/O carpal tunnel repair H/O total hysterectomy History of cardiac cath History of closure of ileostomy History of colostomy reversal History of ear surgery Eustachian tube History of laparotomy History of lung surgery History of surgical procedure Venous access port placement S/P colectomy S/P debridement Abdomen S/P T&A (status post tonsillectomy and adenoidectomy) S/P total knee arthroplasty Bilateral Family History Sister Hypothyroidism Myocardial infarction Mother Hypothyroidism Father Myocardial infarction Other Coronary heart disease DM II (diabetes mellitus, type II), controlled Social History Preferred Language: Setswana Communication Ability: Effective Warehouse Person Required: No Beliefs That Will Affect Care: None marital status: Current Living Situation: Spouse current occupational status: unemployed and disabled Other Information That Helps Us Care for You: No Feels Safe at Home: Yes Safety Concerns: Feels Safe At This Time Smoking Status: Never smoker Do You Dip or Chew Tobacco: No ; Second Hand Exposure: No ; Tobacco Cessation Education Requested by Patient: No Hx Alcohol Use: No Hx Substance Use: No caffeine: Yes Dental Care, Regularly: No Physical Activity Frequency: Does not Exercise Seatbelt Use: never Sunscreen Use: Yes Review of Systems Review of Systems: All systems reviewed & are unremarkable except as noted in HPI & below Physical Exam Constitutional: + acute distress (left groin pain), + ill appearing, + cachectic and + disheveled; + not well nourished Eyes: PERRL, conjunctivae normal, anicteric sclerae ENMT: Ears: no external ear abnormality Nose: no external nose abnormality Mouth: + dry oral mucous membranes (very, although patient reports this is normal for her) Neck: trachea midline, no thyromegaly Respiratory: normal respiratory effort, lungs clear to auscultation Cardiovascular: Rate/Rhythm: regular rate and + irregularly irregular Heart Sounds: + murmur (holosytolic apical) Vessels: posterior tibial pulses present (b/l) and dorsalis pedis pulses present (b/l); no JVD Extremities: normal capillary refill (distal to fracture); no calf tenderness and no pedal edema Gastrointestinal (Abdomen): Inspection/Auscultation: abdomen normal to inspection (old well healed ostomy scars) and normal bowel sounds; abdomen not distended Percussion/Palpation: abdomen soft; abdomen nontender, no guarding and abdomen not rigid Musculoskeletal: Spine: no cervical spinal tenderness Shortened and externally rotated left leg, very painful for patient to even attempt to move, pain in left groin on any leg movement, NV intact distally, no skin opening Grossly normal exam of b/l UE and right LE with generalized aches and pains but no bone tenderness on palpation or restricted ROM Skin: no rashes, warm and dry Neurologic: awake; not confused Cranial Nerves: PERRL, able to rotate head bilaterally and able to elevate shoulders bilaterally Psychiatric: A+Ox3, euthymic affect Genitourinary: no CVA tenderness Lymphatic: + subclavicular lymphadenopathy; no lymphedema Results & Data Vital Signs (Past 12 Hours) Vital Signs Temp Pulse Pulse Resp BP BP Pulse Ox 11/05/19 11:30 66 18 105/59 L 99 11/05/19 11:02 70 20 90/60 L 99 11/05/19 11:00 67 15 90/60 L 99 11/05/19 10:05 71 15 133/105 H 97 11/05/19 10:00 86 L 11/05/19 09:24 36.4 C L 71 15 133/105 H 97 Diagnostic Findings XR shoulder LT min 2V routine IMPRESSION: 1. No acute osseous injury allowing for image quality limitations as above. 2. Significant osteopenia. XR chest 1V portable IMPRESSION: 1. No acute cardiopulmonary disease. 2. Mild cardiomegaly. 3. Underlying pulmonary metastatic disease better appreciated on chest CT. XR pelvis 1-2V routine IMPRESSION: 1. Significantly angulated and mildly comminuted basicervical left femoral neck fracture. 2. Underlying significant osteopenia. XR femur LT 2V routine, XR knee LT 3V IMPRESSION: Acute impacted and angulated intratrochanteric fracture of the left femur. CT chest wo con IMPRESSION: 1. No acute intrathoracic abnormality identified, specifically no acute fracture or pneumothorax. 2. Thoracic and upper abdominal metastatic disease redemonstrated as above with findings compatible with positive response to therapy. 3. Cardiomegaly. 4. Additional findings as above. ABDOMEN AND PELVIS CT WITHOUT CONTRAST IMPRESSION: 1. A left intertrochanteric hip fracture. 2. Slight increase in size in the hepatic lesions and the right lower lobe pulmonary nodule consistent with progression of metastatic disease. 3. No change in the lucent lesions within the right acetabulum. 4. Redemonstration of the irregular soft tissue abnormality within the presacral space which abuts and likely invades into the posterior rectal wall. There are a few additional adjacent soft tissue nodules. This also likely represents residual metastatic disease. Medications Administered In ER she was given: Fentanyl 100 mcg IV x2 Fentanyl 50 mcg IV x1 x1 10 meq K Tera Started on insulin drip ECG Indication: other (Fall) Rate (beats per minute): 64 Rhythm: atrial flutter Findings: + ST depression (lateral leads) Comparison ECG Date: from (08/26/2019) Change: no significant change Code Status & VTE Plan Code Status Full as per patient wishes VTE Prophylaxis Plan VTE Prophylaxis will be ordered: Yes Reason for no VTE drug order: Treatment not indicated (reversing INR for operation at present) PG Care Time/CCT Total # of Minutes Spent Total Time Spent with Patient: Total time spent is greater than 50% in coordination of care (as documented) at patient's floor/unit and/or counseling patient: Coding Level of Care Code 24168 Initial Inpt Care Lvl 3 Diagnoses Fall W19.XXXA Encounter type: initial encounter Intertrochanteric fracture of left femur S72.142A Encounter type: initial encounter Fracture type: closed Fracture alignment: displaced Acute hypokalemia E87.6 Atrial flutter I48.3 Atrial flutter type: typical Chronic HFrEF (heart failure with reduced ejection fraction) I50.22 Mitral regurgitation I34.0 Cardiac valve disease etiology: nonrheumatic Colorectal cancer, stage IV C19 Diabetes mellitus, type II E11.65; Z79.4 Diabetes mellitus rat exterminator insulin use: with rat exterminator use Diabetes mellitus complication status: with hyperglycemia Asthma J45.20 Asthma complication type: uncomplicated Asthma persistence: intermittent Asthma severity: unspecified severity ANA (obstructive sleep apnea) G47.33 Hypothyroidism E03.9 Hypothyroidism type: acquired GERD (gastroesophageal reflux disease) K21.9 Esophagitis presence: without esophagitis DVT prophylaxis Z29.9 Discharge planning issues Z02.9 (1) Diabetes mellitus, type II Diabetes mellitus rat exterminator insulin use: with rat exterminator use Diabetes mellitus complication status: with hyperglycemia Qualified Code(s): E11.65 - Type 2 diabetes mellitus with hyperglycemia; Z79.4 - rodent exterminator (current) use of insulin (2) Atrial flutter Atrial flutter type: typical Qualified Code(s): I48.3 - Typical atrial flutter (3) Hypothyroidism Hypothyroidism type: acquired Qualified Code(s): E03.9 - Hypothyroidism, unspecified (4) Mitral regurgitation Cardiac valve disease etiology: nonrheumatic Qualified Code(s): I34.0 - Nonrheumatic mitral (valve) insufficiency (5) GERD (gastroesophageal reflux disease) Esophagitis presence: without esophagitis Qualified Code(s): K21.9 - Gastro- esophageal reflux disease without esophagitis (6) Fall Encounter type: initial encounter Qualified Code(s): W19.XXXA - Unspecified fall, initial encounter (7) Asthma Asthma complication type: uncomplicated Asthma persistence: intermittent Asthma severity: unspecified severity Qualified Code(s): J45.20 - Mild int ermittent asthma, uncomplicated (8) Intertrochanteric fracture of left femur Encounter type: initial encounter Fracture type: closed Fracture alignment: displaced Qualified Code(s): S72.142A - Displaced intertrochanteric fracture of left femur, initial encounter for closed fracture
[2019-11-05] MEDS ORDERED: NovoLIN-R BOLUS FROM BAG IV ONE (13:00)
[2019-11-05] MEDS ORDERED: PHYTONADIONE 5 MG in SODIUM CHLORIDE 0.9% 50 ML IV ONE (13:39)
[2019-11-05] MEDS ORDERED: NALOXONE HCL 0.4 MG/1 ML VIAL/CARP IV PRN (13:49)
[2019-11-05] MEDS ORDERED: POTASSIUM CHLORIDE / WTR 10 MEQ/100 ML PLCT IV STA (13:53)
[2019-11-05] MEDS ORDERED: POTASSIUM CHLORIDE 20 MEQ TABCR PO STA (13:53)
--- NOTE | 2019-11-05 14:32 | Electrocardiogram Report ---
Test Reason : Blood Pressure : / mmHG Vent. Rate : 064 BPM Atrial Rate : 370 BPM P-R Int : 000 ms QRS Dur : 080 ms QT Int : 420 ms P-R-T Axes : 000 061 -59 degrees QTc Int : 433 ms Atrial fibrillation Abnormal ECG When compared with ECG of 26-AUG-2019 18:26, ST now depressed in Inferior leads T wave inversion no longer evident in Anterolateral leads QT has lengthened Confirmed by Rohan Pena ([id number]) on 11/05/2019 2:31:55 PM Referred By: ER Confirmed By:Rohan Pena
[2019-11-05] MEDS ORDERED: MAGNESIUM HYDROXIDE SUSP 30 ML UDC PO PRN (14:34)
[2019-11-05] MEDS ORDERED: bisacodyL 10 MG SUPP PR PRN (14:34)
[2019-11-05] MEDS ORDERED: POLYETHYLENE (MIRALAX) 17 GM PACK PO PRN (14:34)
[2019-11-05] MEDS ORDERED: TRAZODONE HCL 50 MG TAB PO PRN (14:34)
[2019-11-05] MEDS ORDERED: PROCHLORPERAZINE MALEATE 10 MG TAB PO PRN (14:34)
[2019-11-05] MEDS ORDERED: ONDANSETRON INJ 2 MG/ML 2 ML VIAL IV PRN (14:34)
[2019-11-05] MEDS ORDERED: SIMETHICONE 80 MG CHEW PO PRN (14:34)
[2019-11-05] MEDS ORDERED: ACETAMINOPHEN 325 MG TAB PO PRN (14:34)
[2019-11-05] MEDS ORDERED: ALBUTEROL HFA 8 GM INHALER INH PRN (14:34)
[2019-11-05] MEDS: HYDROmorphone INJ 0.5 MG/0.5 ML SYR IV PRN ×3 (14:52→19:59)
[2019-11-05] MEDS ORDERED: PHARMACY GLYCEMIC MGMT CONSULT PRN (15:21)
[2019-11-05] MEDS ORDERED: POTASSIUM CHLORIDE 20 MEQ TABCR PO ONE (15:45)
[2019-11-05 15:49] LABS: BUN Creatinine Ratio 17.8 (10-20); Calcium 9.5 mg/dl (8.5-10.1); Creatinine Clr Calc Pharmacy 57.8 ml/min; Est GFR (African American) 97.7; Est GFR (Non-African American) 84.3
[2019-11-05] MEDS: POTASSIUM CHLORIDE / WTR 10 MEQ/100 ML PLCT IV SCH ×3 (15:50→18:10)
[2019-11-05] MEDS: MAGNESIUM SULFATE / D5W 1 GM/100 ML BAG IV SCH ×2 (15:54→16:57)
[2019-11-05 16:02] LABS: Beta-Hydroxybutyrate 8.39 mg/dl (0.2-2.81)
--- NOTE | 2019-11-05 16:10 | Cardiology Consultation ---
Date of Consultation November 05, 2019 Assessment & Plan (1) Preoperative cardiovascular examination: (2) Chronic HFrEF (heart failure with reduced ejection fraction): (3) A-fib: Patient is stable from a volume status standpoint, perhaps even a bit volume depleted. She is hyperglycemic with blood sugar in excess of 400 mg/dL, and her potassium is low at 3 mmol/L. She has been receiving oral and IV potassium supplementation, with hopes of optimizing her potassium prior to starting an insulin infusion as per the admitting team. EKG performed today reveals rate controlled atrial fibrillation at [address] segment depression is present, which is a chronic finding for her. There is a subtle inferior repolarization changes noted as well, but this is difficult to discern given the atrial activity also present. Overall, I do not think her EKG represents an acute change compared to her previous baseline. She notes no recent anginal symptoms, and it sounds like her cardiac status is been stable. She is received 5 mg of IV vitamin K for reversal of her INR which was 3 today. Echocardiogram reveals left ventricular ejection fraction in the range of 35- 40%, unchanged compared to November,. Mild to moderate pulmonary hypertension is present on the echocardiogram, with estimated pulmonary artery systolic pressure in the range of 45 to 55 mmHg. Patient is considered stable from a cardiac perspective to proceed to the operating room, after optimization of her INR, glucose, and electrolytes. History of Present Illness Attending Physician: Aashish Barroso MD History of Present Illness Luisa Bernard is a 53 year old female seen in cardiology consultation per the request of Dr Barroso for preoperative cardiac evaluation given her history of chronic atrial fibrillation and congestive heart failure. The patient states that she was ambulating to her portable commode suffered a mechanical fall with resultant left femoral neck fracture. She denies syncope. At the time of her most recent outpatient cardiology follow-up visit in December,, she was felt to be volume overloaded and her furosemide dose was increased to 60 mg 2 times per day. She has been doing well she reports from a volume status standpoint in the interim. Her outpatient dose is a little unclear at present, but it looks like she has been taking 40 mg twice a day again. She is chronically ill due to metastatic adenocarcinoma of the colon, and is cachectic. Problem List: 1.Chronic atrial fibrillation 2.Anticoagulation with coumadin, managed by [facility] anticoagulation clinic 3.Angiographically normal coronary arteries by catheterization in November 2008 ([facility]) 4.Biventricular heart failure. 5.Diastolic dysfunction 6.Varying degrees of mitral regurgitation 7. Adenocarcinoma of the colon with mets to the lung, status post LLL lung resection, chemotherapy 8.Recurrent GI bleeding 9.Morbid obesity 10.Obstructive sleep apnea, CPAP therapy. 11.Hypertension 12. Dyslipidemia 13.Type II diabetes mellitus. Allergies Allergy/AdvReac Type Severity Reaction Status Date / Time daptomycin Allergy Severe SHORTNESS Verified 11/05/19 10:29 OF BREATH Iodinated Contrast Media Allergy Severe Anaphylaxis Verified 11/05/19 10:29 bee venom protein (honey bee) Allergy Intermediate HIVES Verified 11/05/19 10:29 clindamycin Allergy Intermediate HIVES Verified 11/05/19 10:29 Sulfa (Sulfonamide Allergy Intermediate BACTRIM-HIV Verified 11/05/19 10:29 Antibiotics) ES trimethoprim Allergy Intermediate HIVES Verified 11/05/19 10:29 vancomycin Allergy Intermediate RASH Verified 11/05/19 10:29 dulaglutide AdvReac Severe BRAND-TRULICITY, Verified 11/05/19 10:29 SEVERE GI UPSET, CONSTIPATION Home Medications Home Medications Medication Instructions Recorded Confirmed Type Breo Ellipta 1 inh INHALATION DAILY MDD 1 dose 06/11/18 11/05/19 History in 24 hours albuterol sulfate [Ventolin HFA] 2 - 4 puff INHALATION Q6H PRN 06/11/18 11/05/19 History insulin aspart U-100 [Novolog 1 sliding scale dose SUBCUT TID 06/11/18 11/05/19 History PenFill U-100 Insulin] magnesium oxide 400 mg PO QAM 06/11/18 11/05/19 History digoxin 125 mcg (0.125 mg) tablet 0.125 mg PO QAM 11/28/18 11/05/19 History acetaminophen 500 mg PO Q4 PRN 01/15/19 11/05/19 History furosemide 40 mg PO UD 01/15/19 11/05/19 History psyllium husk [Fiber-Caps 0.52 g PO DAILY 01/15/19 11/05/19 History (psyllium husk)] spironolactone 12.5 mg PO DAILY 01/15/19 11/05/19 History capecitabine 500 mg tablet 1,500 mg PO BID tab 05/28/19 11/05/19 History prochlorperazine maleate 10 mg 10 mg PO Q6H PRN 05/28/19 11/05/19 History tablet insulin glargine 100 unit/mL (3 45 units SUBCUT HS #0 ml 06/17/19 11/05/19 Rx mL) subcutaneous pen Oxygen Home #1 ea 07/01/19 10/22/19 History docusate sodium 100 mg capsule 100 mg PO Q2D cap 07/01/19 11/05/19 History diphenhydramine HCl 25 mg capsule 25 mg PO Q8H PRN 07/02/19 11/05/19 History ferrous sulfate 325 mg (65 mg 325 mg PO QAM tab 07/02/19 11/05/19 History iron) tablet metoprolol succinate 25 mg 50 mg PO QAM tab 07/02/19 11/05/19 History tablet,extended release 24 hr oxycodone 5 mg capsule 5 mg PO DAILY 07/02/19 11/05/19 History sucralfate 1 gram tablet 1 gm PO ONCE PRN tab 07/02/19 11/05/19 History trazodone 50 mg tablet 50 mg PO DAILY PRN 07/02/19 11/05/19 History lactase [Lactaid] 9,000 unit PO AC PRN 08/26/19 11/05/19 History potassium chloride 20 meq PO QAM 08/26/19 11/05/19 History simethicone 125 mg PO DAILY PRN 08/26/19 11/05/19 History blood-glucose meter #1 ea 09/18/19 10/22/19 Rx lancets #400 ea 09/18/19 10/22/19 Rx blood sugar diagnostic #400 ea 09/26/19 10/22/19 Rx levothyroxine 1,200 mcg PO QAM 10/07/19 11/05/19 History omeprazole 40 mg PO DAILY 10/07/19 11/05/19 History warfarin 1 mg tablet 2 mg PO DAILY tab 10/13/19 11/05/19 History Patient History Medical History Anasarca (Acute) Anemia (Acute) Arthritis (Acute) Asthma (Acute) Atrial fibrillation C. difficile colitis Chronic HFrEF (heart failure with reduced ejection fraction) Colon carcinoma metastatic to multiple sites (Chronic) Depression (Acute) Diabetes mellitus, type II (Acute) Dyslipidemia (Chronic) Dysphagia (Acute) Esophagitis (Resolved) Femur fracture, left (Acute) Left distal periprosthetic fracture s/p ORIF GERD (gastroesophageal reflux disease) (Chronic) H/O: lung cancer Left s/p L VATS Hepatitis (Chronic) HTN (hypertension) (Chronic) Hypothyroidism (Inactive) USP (current) use of anticoagulants (Acute) Lung cancer (Chronic) Metastatic colon cancer in female lung mets Mitral regurgitation (Chronic) "echo 10/14/15: mild-mod mitral regurg " Moderate protein malnutrition (Inactive) Morbid obesity MRSA colonization (Acute) Multiple pulmonary nodules determined by computed tomography of lung (Chronic) Obesity (BMI 30.0-34.9) (Inactive) ANA (obstructive sleep apnea) (Chronic) Periprosthetic fracture around internal prosthetic knee joint (Acute) 01/16/2019. GETA. MAC 3, grade 2 view. 7.0ETT. Rectal pain (Acute) Surgical History H/O carpal tunnel repair H/O total hysterectomy History of cardiac cath History of closure of ileostomy History of colostomy reversal History of ear surgery Eustachian tube History of laparotomy History of lung surgery History of surgical procedure Venous access port placement S/P colectomy S/P debridement Abdomen S/P T&A (status post tonsillectomy and adenoidectomy) S/P total knee arthroplasty Bilateral Family History Sister Hypothyroidism Myocardial infarction Mother Hypothyroidism Father Myocardial infarction Other Coronary heart disease DM II (diabetes mellitus, type II), controlled Social History Preferred Language: Tajik Communication Ability: Effective Unemployment Benefits Claims Taker Required: No Beliefs That Will Affect Care: None marital status: Current Living Situation: Spouse current occupational status: unemployed and disabled Other Information That Helps Us Care for You: No Feels Safe at Home: Yes Safety Concerns: Feels Safe At This Time Smoking Status: Never smoker Do You Dip or Chew Tobacco: No ; Second Hand Exposure: No ; Tobacco Cessation Education Requested by Patient: No Hx Alcohol Use: No Hx Substance Use: No caffeine: Yes Dental Care, Regularly: No Physical Activity Frequency: Does not Exercise Seatbelt Use: never Sunscreen Use: Yes Review of Systems Review of Systems: All systems reviewed & are unremarkable except as noted in HPI & below Physical Exam Physical Exam: Temp Pulse Resp BP Pulse Ox 36.7 C 83 20 111/73 98 11/05/19 14:34 11/05/19 14:34 11/05/19 14:34 11/05/19 14:34 11/05/19 14:34 Constitutional: + cachectic Chronically ill in appearance Respiratory: normal respiratory effort, lungs clear to auscultation Cardiovascular: Rate/Rhythm: + irregularly irregular Heart Sounds: + murmur (1/6 systolic murmur) Vessels: no JVD Extremities: no edema Gastrointestinal (Abdomen): normal bowel sounds, soft, nontender, no hepatosplenomegaly Neurologic: PERRL, EOMI, accommodation nl, no face palsy, no dysarthria Results & Data Vital Signs (Past 12 Hours) Vital Signs Temp Pulse Pulse Resp BP BP Pulse Ox 11/05/19 14:34 36.7 C 83 20 111/73 98 11/05/19 14:00 66 17 100/61 99 11/05/19 13:49 71 20 102/62 99 11/05/19 13:30 73 20 101/60 99 11/05/19 13:00 80 17 121/94 100 11/05/19 12:30 69 22 101/57 L 99 11/05/19 12:12 67 18 104/51 L 100 11/05/19 11:30 66 18 105/59 L 99 11/05/19 11:02 70 20 90/60 L 99 11/05/19 11:00 67 15 90/60 L 99 11/05/19 10:05 71 15 133/105 H 97 11/05/19 10:00 86 L 11/05/19 09:24 36.4 C L 71 15 133/105 H 97 Laboratory Results Cardiac Enzymes 11/05/19 Range/Units 09:38 AST 21 (15-37) U/L Troponin I 0.080 H* (0-0.045) ng/ml Coagulation 11/05/19 Range/Units 09:38 PT 28.2 H (9.0-12.0) Seconds CBC 11/05/19 Range/Units 09:38 WBC 10.28 (4.8-10.8) K/uL RBC 3.67 L (4.2-5.4) M/uL Hgb 12.9 (12.0-16.0) g/dL Hct 34.0 L (37-47) % Plt Count 237 (130-400) K/uL Neut # (Auto) 7.92 H (1.4-6.5) K/uL Lymph # (Auto) 1.51 (1.2-3.4) K/uL Deuel # (Auto) 0.62 H (0.11-0.59) K/uL Eos # (Auto) 0.16 (0-0.5) K/uL Baso # (Auto) 0.01 (0-0.2) K/uL Comprehensive Metabolic Panel 11/05/19 11/05/19 Range/Units 09:38 15:10 Sodium 130 L 134 L (136-145) mmol/L Potassium 2.7 L 3.0 L (3.5-5.1) mmol/L Chloride 88 L 93 L (98-107) mmol/L Carbon Dioxide 33 H 34 H (21-32) mmol/L BUN 13 14 (7-18) mg/dl Creatinine 0.96 0.79 (0.6-1.2) mg/dl Glucose 563 H* 405 H* (70-99) mg/dl Calcium 9.4 9.5 (8.5-10.1) mg/dl AST 21 (15-37) U/L ALT 17 (12-78) U/L Alkaline Phosphatase 185 H (45-117) U/L Total Protein 6.3 L (6.4-8.2) gm/dl Albumin 2.8 L (3.4-5.0) gm/dl Intake and Output 11/05/19 11/05/19 11/05/19 06:59 14:59 22:59 Intake Total 102.06 / 152.723 50.663 / 152.723 Balance 102.06 / 152.723 50.663 / 152.723 Intake: IV 102.06 / 152.723 50.663 / 152.723 NovoLIN R 250 UNITS In Nss 247. 2.06 / 2.223 0.163 / 2.223 5 ml @ 1.2 UNITS/HR 1.2 mls/hr IV .Q24H [facility] Rx#:[id number] Aqua-Mephyton 5 mg In Nss 50 ml 50.5 / 50.5 @ 101 mls/hr IV ONE ONE Rx#: [id number] K RIDER / WTR 10 meq In 100 ml 100 / 100 @ 100 mls/hr IV ONE ONE Rx#: [id number] Other: Weight 50 kg Patient Weight 11/06/19 06:59 Weight 50 kg Diagnostic Findings Echocardiogram performed today 11/05/2019 and reviewed independently: There is thinning and hypokinesis of the interventricular septum, consistent with right ventricular dysfunction versus ischemic heart disease. Otherwise, there is moderate global hypokinesis of the left ventricle. Left ventricular systolic function is moderately reduced. Ejection Fraction = 35-40%. The left atrium is moderately dilated. Moderate to severe posteriorly directed mitral regurgitation is present. There is mild tricuspid regurgitation. Moderate pulmonary hypertension is present. Estimated pulmonary artery systolic pressure is in the range of 45-55 mmHg. Compared to the prior study dated 11/17/2018, left ventricular ejection fraction is stable without significant interval change. (1) A-fib Atrial fibrillation type: chronic Qualified Code(s): I48.2 - Chronic atrial fibrillation
--- NOTE | 2019-11-05 16:52 | Orthopedic Consultation ---
Date of Consultation November 05, 2019 Assessment & Plan (1) Intertrochanteric fracture of left femur: Patient will require a left trochanteric femoral nail. Current INR was 3.0 and will need to be brought down to 1.2 or so for anesthesia to do spinal anesthesia if they so choose. Otherwise will need her down to 1.5 or less for surgery. Patient will need optimized prior to surgery. She is currently hypokalemic and hyperglycemic which is being addressed by the admitting team. I will discuss the case with [facility] physicians. We will tentatively place her on the operating room schedule tomorrow but will await final clearances from medicine, cardiology, and anesthesia services before continuing. History of Present Illness Reason for Consultation: Left intertrochanteric hip fracture Attending Physician: Aashish Barroso MD History of Present Illness Patient is a 53-year-old white female known to our practice who underwent a ORIF of left distal periprosthetic femur fracture last year.The patient has a history of stage IV colorectal cancer which she was treated with IV and oral chemotherapeutic regimens. She also has a history of atrial flutter, diabetes mellitus type 2, history of heart failure, asthma, mitral regurgitation, hypertension. She states that this morning she got up to use the restroom. As she was positioning herself in the bathroom, her walker tilted to the one side and she lost her balance. She fell onto her left side fairly hard and had immediate pain in her hip and groin. She denies any having any new pain in her left knee she denies hitting her head or losing consciousness. There was no shortness of breath, chest pain, lightheadedness prior to or after the fall. She was unable to ambulate and was brought to the hospital via E squad. She was seen by the staff and x-rays were taken. It was found that she had a left intertrochanteric femur fracture. She was admitted by the hospitalist group and we have been asked to take care of her left hip fracture. Allergies Allergy/AdvReac Type Severity Reaction Status Date / Time daptomycin Allergy Severe SHORTNESS Verified 11/05/19 10:29 OF BREATH Iodinated Contrast Media Allergy Severe Anaphylaxis Verified 11/05/19 10:29 bee venom protein (honey bee) Allergy Intermediate HIVES Verified 11/05/19 10:29 clindamycin Allergy Intermediate HIVES Verified 11/05/19 10:29 Sulfa (Sulfonamide Allergy Intermediate BACTRIM-HIV Verified 11/05/19 10:29 Antibiotics) ES trimethoprim Allergy Intermediate HIVES Verified 11/05/19 10:29 vancomycin Allergy Intermediate RASH Verified 11/05/19 10:29 dulaglutide AdvReac Severe BRAND-TRULICITY, Verified 11/05/19 10:29 SEVERE GI UPSET, CONSTIPATION Home Medications Home Medications Medication Instructions Recorded Confirmed Type Breo Ellipta 1 inh INHALATION DAILY MDD 1 dose 06/11/18 11/05/19 History in 24 hours albuterol sulfate [Ventolin HFA] 2 - 4 puff INHALATION Q6H PRN 06/11/18 11/05/19 History insulin aspart U-100 [Novolog 1 sliding scale dose SUBCUT TID 06/11/18 11/05/19 History PenFill U-100 Insulin] magnesium oxide 400 mg PO QAM 06/11/18 11/05/19 History digoxin 125 mcg (0.125 mg) tablet 0.125 mg PO QAM 11/28/18 11/05/19 History acetaminophen 500 mg PO Q4 PRN 01/15/19 11/05/19 History furosemide 40 mg PO UD 01/15/19 11/05/19 History psyllium husk [Fiber-Caps 0.52 g PO DAILY 01/15/19 11/05/19 History (psyllium husk)] spironolactone 12.5 mg PO DAILY 01/15/19 11/05/19 History capecitabine 500 mg tablet 1,500 mg PO BID tab 05/28/19 11/05/19 History prochlorperazine maleate 10 mg 10 mg PO Q6H PRN 05/28/19 11/05/19 History tablet insulin glargine 100 unit/mL (3 45 units SUBCUT HS #0 ml 06/17/19 11/05/19 Rx mL) subcutaneous pen Oxygen Home #1 ea 07/01/19 10/22/19 History docusate sodium 100 mg capsule 100 mg PO Q2D cap 07/01/19 11/05/19 History diphenhydramine HCl 25 mg capsule 25 mg PO Q8H PRN 07/02/19 11/05/19 History ferrous sulfate 325 mg (65 mg 325 mg PO QAM tab 07/02/19 11/05/19 History iron) tablet metoprolol succinate 25 mg 50 mg PO QAM tab 07/02/19 11/05/19 History tablet,extended release 24 hr oxycodone 5 mg capsule 5 mg PO DAILY 07/02/19 11/05/19 History sucralfate 1 gram tablet 1 gm PO ONCE PRN tab 07/02/19 11/05/19 History trazodone 50 mg tablet 50 mg PO DAILY PRN 07/02/19 11/05/19 History lactase [Lactaid] 9,000 unit PO AC PRN 08/26/19 11/05/19 History potassium chloride 20 meq PO QAM 08/26/19 11/05/19 History simethicone 125 mg PO DAILY PRN 08/26/19 11/05/19 History blood-glucose meter #1 ea 09/18/19 10/22/19 Rx lancets #400 ea 09/18/19 10/22/19 Rx blood sugar diagnostic #400 ea 09/26/19 10/22/19 Rx levothyroxine 1,200 mcg PO QAM 10/07/19 11/05/19 History omeprazole 40 mg PO DAILY 10/07/19 11/05/19 History warfarin 1 mg tablet 2 mg PO DAILY tab 10/13/19 11/05/19 History Patient History Medical History Anasarca (Acute) Anemia (Acute) Arthritis (Acute) Asthma (Acute) Atrial fibrillation C. 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 GETA. MAC 3, grade 2 view. 7.0ETT. Rectal pain (Acute) Surgical History H/O carpal tunnel repair H/O total hysterectomy History of cardiac cath History of closure of ileostomy History of colostomy reversal History of ear surgery Eustachian tube History of laparotomy History of lung surgery History of surgical procedure Venous access port placement S/P colectomy S/P debridement Abdomen S/P T&A (status post tonsillectomy and adenoidectomy) S/P total knee arthroplasty Bilateral Family History Sister Hypothyroidism Myocardial infarction Mother Hypothyroidism Father Myocardial infarction Other Coronary heart disease DM II (diabetes mellitus, type II), controlled Social History Preferred Language: Kazakh Communication Ability: Effective 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 Beliefs That Will Affect Care: None marital status: Current Living Situation: Spouse current occupational status: unemployed and disabled Other Information That Helps Us Care for You: No Feels Safe at Home: Yes Safety Concerns: Feels Safe At This Time Smoking Status: Never smoker Do You Dip or Chew Tobacco: No ; Second Hand Exposure: No ; Tobacco Cessation Education Requested by Patient: No Hx Alcohol Use: No Hx Substance Use: No caffeine: Yes Dental Care, Regularly: No Physical Activity Frequency: Does not Exercise Seatbelt Use: never Sunscreen Use: Yes Physical Exam Physical Exam: Patient is a 53-year white female who appears older than her stated age. He is currently awake and alert and oriented to person and place. She is in no acute distress. Pleasant and cooperative. Currently her left lower extremity is noted to be in 5 pounds of Al's traction. This is left on during exam. She has some mild pain around the left hip on palpation. No range of motion is attempted at this time due to fracture. She has multiple scars on her left knee from previous surgeries. She does not appear to have to the way of swelling around the left knee. Range of motion is limited due to Al's traction. She has good range of motion of her left ankle and toes. Right lower extremity is unaffected at this time and she has good range of motion of the right hip knee and ankle. Upper extremities proved to show good range of motion of the shoulders elbows and wrist. She does have some increased pain on palpation of the left shoulder at this time but no overt swelling. An IV port is noted to be on the anterior portion of the chest close to the left shoulder. There is no gross motor or sensory loss seen at this time. Distal pulses equal bilaterally. She denies any neck pain at this time. No obvious thoracic or lumbar pain at this time. Results & Data ([facility]) Vital Signs (Past 12 Hours) Vital Signs Temp Pulse Pulse Resp BP BP Pulse Ox 11/05/19 14:34 36.7 C 83 20 111/73 98 11/05/19 14:00 66 17 100/61 99 11/05/19 13:49 71 20 102/62 99 11/05/19 13:30 73 20 101/60 99 11/05/19 13:00 80 17 121/94 100 11/05/19 12:30 69 22 101/57 L 99 11/05/19 12:12 67 18 104/51 L 100 11/05/19 11:30 66 18 105/59 L 99 11/05/19 11:02 70 20 90/60 L 99 11/05/19 11:00 67 15 90/60 L 99 11/05/19 10:05 71 15 133/105 H 97 11/05/19 10:00 86 L 11/05/19 09:24 36.4 C L 71 15 133/105 H 97 Laboratory Results Laboratory Results WBC 10.28 K/uL (4.8-10.8) 11/05/19 09:38 RBC 3.67 M/uL (4.2-5.4) L 11/05/19 09:38 Hgb 12.9 g/dL (12.0-16.0) 11/05/19 09:38 Hct 34.0 % (37-47) L 11/05/19 09:38 MCV 92.6 fL (80-100) 11/05/19 09:38 MCH 35.1 pg (25-34) H 11/05/19 09:38 MCHC 37.9 g/dL (32-36) H 11/05/19 09:38 RDW Std Deviation 54.1 fL (36.4-46.3) H 11/05/19 09:38 RDW Coeff of [place] 16.1 % (11.5-14.5) H 11/05/19 09:38 Plt Count 237 K/uL (130-400) 11/05/19 09:38 MPV 9.6 fL (7.4-10.4) 11/05/19 09:38 Immature Gran % (Auto) 0.6 % 11/05/19 09:38 Neut % (Auto) 77.0 % 11/05/19 09:38 Lymph % (Auto) 14.7 % 11/05/19 09:38 [place] % (Auto) 6.0 % 11/05/19 09:38 Eos % (Auto) 1.6 % 11/05/19 09:38 Baso % (Auto) 0.1 % 11/05/19 09:38 Immature Gran # (Auto) 0.06 K/uL (0.00-0.02) H 11/05/19 09:38 Neut # (Auto) 7.92 K/uL (1.4-6.5) H 11/05/19 09:38 Lymph # (Auto) 1.51 K/uL (1.2-3.4) 11/05/19 09:38 [place] # (Auto) 0.62 K/uL (0.11-0.59) H 11/05/19 09:38 Eos # (Auto) 0.16 K/uL (0-0.5) 11/05/19 09:38 Baso # (Auto) 0.01 K/uL (0-0.2) 11/05/19 09:38 PT 28.2 Seconds (9.0-12.0) H 11/05/19 09:38 INR 3.0 (0.9-1.1) H 11/05/19 09:38 Sodium 134 mmol/L (136-145) L 11/05/19 15:10 Potassium 3.0 mmol/L (3.5-5.1) L 11/05/19 15:10 Chloride 93 mmol/L (98-107) L 11/05/19 15:10 Carbon Dioxide 34 mmol/L (21-32) H 11/05/19 15:10 Anion Gap 7.0 (3-11) 11/05/19 15:10 BUN 14 mg/dl (7-18) 11/05/19 15:10 Creatinine 0.79 mg/dl (0.6-1.2) 11/05/19 15:10 Est Cr Clr Drug Dosing 57.8 ml/min 11/05/19 15:10 Est GFR ( Amer) 97.7 11/05/19 15:10 Est GFR (Non-Af Amer) 84.3 11/05/19 15:10 BUN/Creatinine Ratio 17.8 (10-20) 11/05/19 15:10 Glucose 405 mg/dl (70-99) H* 11/05/19 15:10 POC Glucose 423 mg/dl (70-99) H* 11/05/19 17:17 Calcium 9.5 mg/dl (8.5-10.1) 11/05/19 15:10 Magnesium 1.6 mg/dl (1.8-2.4) L 11/05/19 09:38 Total Bilirubin 2.2 mg/dl (0.2-1) H 11/05/19 09:38 AST 21 U/L (15-37) 11/05/19 09:38 ALT 17 U/L (12-78) 11/05/19 09:38 Alkaline Phosphatase 185 U/L (45-117) H 11/05/19 09:38 Troponin I 0.080 ng/ml (0-0.045) H* 11/05/19 09:38 Total Protein 6.3 gm/dl (6.4-8.2) L 11/05/19 09:38 Albumin 2.8 gm/dl (3.4-5.0) L 11/05/19 09:38 Globulin 3.5 gm/dl (2.5-4.0) 11/05/19 09:38 Albumin/Globulin Ratio 0.8 (0.9-2) L 11/05/19 09:38 Beta-Hydroxybutyric Acd 8.39 mg/dl (0.2-2.81) H 11/05/19 15:10 Urine Color Yellow 11/05/19 09:55 Urine Appearance Clear (Clear) 11/05/19 09:55 Urine pH 6.0 (4.5-7.5) 11/05/19 09:55 Ur Specific [place] 1.027 (1.000-1.030) 11/05/19 09:55 Urine Protein Negative (Negative) 11/05/19 09:55 Urine Glucose (UA) 3+ (Negative) H 11/05/19 09:55 Urine Ketones Negative (Negative) 11/05/19 09:55 Urine Blood Negative (Negative) 11/05/19 09:55 Urine Nitrite Negative (Negative) 11/05/19 09:55 Urine Bilirubin Negative (Negative) 11/05/19 09:55 Urine Urobilinogen Negative (Negative) 11/05/19 09:55 Ur Leukocyte Esterase Negative (Negative) 11/05/19 09:55 Nasal Screen MRSA (PCR) Negative (Negative) 11/05/19 14:59 Digoxin 0.8 ng/ml (0.8-2.0) 11/05/19 15:10 Blood Type A Negative 11/05/19 09:50 Antibody Screen NEGATIVE 11/05/19 09:50 Diagnostic Findings Patient: DERRELL WOODS Date: 11/05/19 MR#: [id number] [address] Acct ID:[id number]: [address] Date: 1965[facility] Zip: [place] [address] Age: 53Location: ED Sex: F Room/Bed: Att Phy:Diagnosis: Hip Pain Krysten Phy: Madison Vivar MDService Date: 11/05/19 Fam Phy:Interpreting Phy: Crispin Crowder Admit Phy: Ordering Phy: Sriram Ayala M.D. cc: ~ XR femur LT 2V routine, XR knee LT 3V HISTORY: 53 years-old Female fall pain acute left femur and knee pain status post fall COMPARISON: Pelvis radiograph 10/03/2019 TECHNIQUE: 2 views of the left femur and 3 views of the left knee FINDINGS: FEMUR: There is an acute mildly impacted fracture of the intertrochanteric left femur with apex superolateral angulation. Femoral head is intact. No dislocation. Demineralized appearance the bones. Mild to moderate left hip osteoarthritis. Mild soft tissue swelling. Plate and screw fusion of the distal femur appears intact. KNEE: Remote fracture deformity of the distal femur. Intact plate and screw fusion. Limited exam secondary to positioning. The joint arthroplasty. Small joint effusion. Ossifications are noted inferior to the patella. No definite acute fracture identified. IMPRESSION: Acute impacted and angulated intratrochanteric fracture of the left femur.
[2019-11-05] MEDS ORDERED: NSS + 20MEQ KCL 20 MEQ/1,000 ML BAG IV SCH (17:00)
--- NOTE | 2019-11-05 17:02 | Anesthesiology Consultation ---
Date of Service November 05, 2019 Assessment & Plan (1) Encounter for pre-operative examination: Chart Review Chart Review: Pending: Refer to Additional Notes / Consult section and Patient NOT seen in Pre Admission Testing Will need to see cardiology's final evaluation. Also will need to follow patient's INR as it was 3.0 today. She is also being treated for hypokalemic and hyperglycemia so at this point patient is not appropriately optimized. Consults Requested cardiac Cardiology preeval: Patient is stable from a volume status standpoint, perhaps even a bit volume depleted. She is hyperglycemic with blood sugar in excess of 400 mg/dL, and her potassium is low at 3 mmol/L. She has been receiving oral and IV potassium supplementation, with hopes of optimizing her potassium prior to starting an insulin infusion as per the admitting team. EKG performed today reveals rate controlled atrial fibrillation at [address] segment depression is present, which is a chronic finding for her. There is a subtle inferior repolarization changes noted as well, but this is difficult to discern given the atrial activity also present. Overall, I do not think her EKG represents an acute change compared to her previous baseline. She notes no recent anginal symptoms, and it sounds like her cardiac status is been stable. She is received 5 mg of IV vitamin K for reversal of her INR which was 3 today. She has already had an echocardiogram which I will review. Further recommendations be forthcoming. History Surgery Operation Date: 11/06/19 11:55 Proposed Procedures p Left Trochanteric Nailing - Riaz Rehman MD Height/Weight Height: 5 ft Weight: 50 kg Allergies Allergy/AdvReac Type Severity Reaction Status Date / Time daptomycin Allergy Severe SHORTNESS Verified 11/05/19 10:29 OF BREATH Iodinated Contrast Media Allergy Severe Anaphylaxis Verified 11/05/19 10:29 bee venom protein (honey bee) Allergy Intermediate HIVES Verified 11/05/19 10:29 clindamycin Allergy Intermediate HIVES Verified 11/05/19 10:29 Sulfa (Sulfonamide Allergy Intermediate BACTRIM-HIV Verified 11/05/19 10:29 Antibiotics) ES trimethoprim Allergy Intermediate HIVES Verified 11/05/19 10:29 vancomycin Allergy Intermediate RASH Verified 11/05/19 10:29 dulaglutide AdvReac Severe BRAND-TRULICITY, Verified 11/05/19 10:29 SEVERE GI UPSET, CONSTIPATION Medications Home Medications Medication Instructions Recorded Confirmed Last Taken Breo Ellipta 1 inh INHALATION DAILY MDD 1 dose 06/11/18 11/05/19 11/04/19 in 24 hours albuterol sulfate [Ventolin HFA] 2 - 4 puff INHALATION Q6H PRN 06/11/18 11/05/19 11/04/19 insulin aspart U-100 [Novolog 1 sliding scale dose SUBCUT TID 06/11/18 11/05/19 11/04/19 PenFill U-100 Insulin] magnesium oxide 400 mg PO QAM 06/11/18 11/05/19 11/04/19 digoxin 125 mcg (0.125 mg) tablet 0.125 mg PO QAM 11/28/18 11/05/19 11/04/19 acetaminophen 500 mg PO Q4 PRN 01/15/19 11/05/19 06/26/19 furosemide 40 mg PO UD 01/15/19 11/05/19 11/04/19 psyllium husk [Fiber-Caps 0.52 g PO DAILY 01/15/19 11/05/19 11/04/19 (psyllium husk)] spironolactone 12.5 mg PO DAILY 01/15/19 11/05/19 11/04/19 capecitabine 500 mg tablet 1,500 mg PO BID tab 05/28/19 11/05/19 11/04/19 prochlorperazine maleate 10 mg 10 mg PO Q6H PRN 05/28/19 11/05/19 06/26/19 tablet insulin glargine 100 unit/mL (3 45 units SUBCUT HS #0 ml 06/17/19 11/05/19 11/04/19 mL) subcutaneous pen Oxygen Home #1 ea 07/01/19 10/22/19 Unknown docusate sodium 100 mg capsule 100 mg PO Q2D cap 07/01/19 11/05/19 11/04/19 diphenhydramine HCl 25 mg capsule 25 mg PO Q8H PRN 07/02/19 11/05/19 Unknown ferrous sulfate 325 mg (65 mg 325 mg PO QAM tab 07/02/19 11/05/19 11/04/19 iron) tablet metoprolol succinate 25 mg 50 mg PO QAM tab 10/02/19 02/05/20 02/04/20 tablet,extended release 24 hr oxycodone 5 mg capsule 5 mg PO DAILY 07/02/19 11/05/19 Unknown sucralfate 1 gram tablet 1 gm PO ONCE PRN tab 07/02/19 11/05/19 11/04/19 trazodone 50 mg tablet 50 mg PO DAILY PRN 07/02/19 11/05/19 Unknown lactase [Lactaid] 9,000 unit PO AC PRN 08/26/19 11/05/19 11/04/19 potassium chloride 20 meq PO QAM 08/26/19 11/05/19 11/04/19 simethicone 125 mg PO DAILY PRN 08/26/19 11/05/19 11/04/19 blood-glucose meter #1 ea 09/18/19 10/22/19 Unknown lancets #400 ea 09/18/19 10/22/19 Unknown blood sugar diagnostic #400 ea 09/26/19 10/22/19 Unknown levothyroxine 1,200 mcg PO QAM 10/07/19 11/05/19 11/05/19 omeprazole 40 mg PO DAILY 10/07/19 11/05/19 11/04/19 warfarin 1 mg tablet 2 mg PO DAILY tab 10/13/19 11/05/19 11/04/19 Active Medications Generic Name Dose Route Start Last Admin Trade Name Freq PRN Reason Stop Dose Admin Hydromorphone HCl 0.25 - 0.5 mg 11/05/19 13:49 11/05/19 14:52 Dilaudid IV 11/19/19 13:48 0.5 mg Q1H PRN Administration Moderate/Severe Pain Insulin Human Regular 250 250 mls @ 1.4 mls/hr 11/05/19 11:45 11/05/19 16:20 units/ Sodium Chloride IV 12/05/19 11:44 1.4 units/hr .Q24H ELIZABETH 1.4 mls/hr Titration Protocol 1.4 UNITS/HR Magnesium Sulfate/Dextrose 1 gm in 100 mls @ 100 mls/hr 11/05/19 16:00 11/05/19 15:54 Magnesium Sulfate / D5w IV 11/05/19 17:59 100 mls/hr Q1H ELIZABETH Administration Potassium Chloride 10 meq in 100 mls @ 100 mls/hr 11/05/19 15:45 11/05/19 15:50 K Tera / Wtr IV 11/05/19 18:44 Not Given Q1H ELIZABETH Past Medical History Medical History (Updated 11/05/19 @ 17:07 by Brett Matamoros MD) Anasarca (Acute) Anemia (Acute) Arthritis (Acute) Asthma (Acute) Atrial fibrillation C. 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 GETA. MAC 3, grade 2 view. 7.0ETT. Rectal pain (Acute) Exercise / Class Metabolic Activity III < 4 Walking/Shop/Light housework Past Family History Family History Sister Hypothyroidism Myocardial infarction Mother Hypothyroidism Father Myocardial infarction Other Coronary heart disease DM II (diabetes mellitus, type II), controlled Past Surgical History Surgical History H/O carpal tunnel repair H/O total hysterectomy History of cardiac cath History of closure of ileostomy History of colostomy reversal History of ear surgery Eustachian tube History of laparotomy History of lung surgery History of surgical procedure Venous access port placement S/P colectomy S/P debridement Abdomen S/P T&A (status post tonsillectomy and adenoidectomy) S/P total knee arthroplasty Bilateral Social History Smoking Status: Never smoker Do You Dip or Chew Tobacco: No Hx Alcohol Use: No Hx Substance Use: No substance use type: does not use Physical Exam Vital Signs Last Vital Signs Temp 36.7 C 11/05/19 14:34 Pulse 83 11/05/19 14:34 Resp 20 11/05/19 14:34 BP 111/73 11/05/19 14:34 Pulse Ox 98 11/05/19 14:34 Testing Laboratory Results 11/05/19 09:38 11/05/19 15:10 PT 28.2 Seconds (9.0-12.0) H 11/05/19 09:38 INR 3.0 (0.9-1.1) H 11/05/19 09:38 Urine Color Yellow 11/05/19 09:55 Urine Appearance Clear (Clear) 11/05/19 09:55 Urine pH 6.0 (4.5-7.5) 11/05/19 09:55 Ur Specific [place] 1.027 (1.000-1.030) 11/05/19 09:55 Urine Protein Negative (Negative) 11/05/19 09:55 Urine Glucose (UA) 3+ (Negative) H 11/05/19 09:55 Urine Ketones Negative (Negative) 11/05/19 09:55 Urine Nitrite Negative (Negative) 11/05/19 09:55 Ur Leukocyte Esterase Negative (Negative) 11/05/19 09:55 Blood Type A Negative 11/05/19 09:50 Antibody Screen NEGATIVE 11/05/19 09:50 11/05/19 11/05/19 11/05/19 16:12 16:11 14:55 POC Glucose 409 H* 430 H* 419 H* 11/05/19 11/05/19 13:59 12:13 POC Glucose 471 H* 536 H* Electrocardiogram Date: 11/05/19 Findings: + AFIB @ (64) Atrial fibrillation ST & T wave abnormality, consider inferior ischemia Abnormal ECG When compared with ECG of 26-AUG-2019 18:26, ST now depressed in Inferior leads T wave inversion no longer evident in Anterolateral leads QT has lengthened Confirmed by Rohan Pena ([id number]) on 11/05/2019 2:31:55 PM Chest X-Ray Date: 11/05/19 CLINICAL HISTORY: 53 years-old Female presenting with fall, pain in the left ronen ulder and femur. TECHNIQUE: Portable upright AP view of the chest was obtained. COMPARISON: 08/26/[address] chest from 11/05/2019. FINDINGS: Left subclavian Mediport terminates in the superior cavoatrial junction and has been accessed. Cardiac silhouette mildly enlarged. Bandlike opacity at the left lung base unchanged. The presence of underlying pulmonary nodules is better appreciated on chest CT. No pleural effusion or pneumothorax. Degenerative changes of the thoracic spine. Upper abdomen normal. IMPRESSION: 1. No acute cardiopulmonary disease. 2. Mild cardiomegaly. 3. Underlying pulmonary metastatic disease better appreciated on chest CT. Echocardiogram Date: 11/17/18 Normal LV size with moderately reduced systolic function. EF 35-40%. Global hypokinesi. Moderately dilated RV with moderated reduced systolic function. Moderate LAD. Mild RAD. Moderate to severe posteriorly directed mitral regurg. Pleural effusion .
--- NOTE | 2019-11-05 17:07 | Emergency Department Note ---
Entered by Marly Peoples acting as a scribe for History of Present Illness General Chief complaint: Fall Stated complaint: Hip Pain Time Seen by Provider: 11/05/19 09:31 Source: patient and RN notes reviewed History of Present Illness Onset (ago): hour(s) 2 Location: hip (left) Pain Consistency: + other (episode) Maximum Pain Intensity: 8 Current Pain Intensity: 7 Quality: + other (left hip pain) Exacerbated By: + movement Associated symptoms: + other (+lower back pain; +cental chest/epigastric pain; - arm pain ); no headaches Treatments prior to arrival: other (fentanyl ) The patient is a 53 year old female, with past medical history of colon cancer, lung cancer, and diabetes, who presents to the Emergency Room with complaints of an episode of a left hip pain following a fall that occurred approximately two hours ago. The RN reports the patient remained laying on the floor until EMS arrived prior to arrival. She also reports the patient was given 50x2 of Fentanyl via IM by EMS. The patient states she fell from her walker to her left side. She states she fell onto her walker as it remained under her when she fell. Along with the left hip pain, the patient reports of lower back pain and central chest/epigastric pain. The patient denies arm pain or any pain to her right side. She also denies hitting her head or currently experiencing a headache. She states her left hip pain is worsened with movement. The patient a dmits to being on Coumadin. She states her present pain as a 7/10. Home Medications Home Medications Medication Instructions Recorded Confirmed Type Breo Ellipta 1 inh INHALATION DAILY MDD 1 dose 06/11/18 11/05/19 History in 24 hours albuterol sulfate [Ventolin HFA] 2 - 4 puff INHALATION Q6H PRN 06/11/18 11/05/19 History insulin aspart U-100 [Novolog 1 sliding scale dose SUBCUT TID 06/11/18 11/05/19 History PenFill U-100 Insulin] magnesium oxide 400 mg PO QAM 06/11/18 11/05/19 History digoxin 125 mcg (0.125 mg) tablet 0.125 mg PO QAM 11/28/18 11/05/19 History acetaminophen 500 mg PO Q4 PRN 01/15/19 11/05/19 History furosemide 40 mg PO UD 01/15/19 11/05/19 History psyllium husk [Fiber-Caps 0.52 g PO DAILY 01/15/19 11/05/19 History (psyllium husk)] spironolactone 12.5 mg PO DAILY 01/15/19 11/05/19 History capecitabine 500 mg tablet 1,500 mg PO BID tab 05/28/19 11/05/19 History prochlorperazine maleate 10 mg 10 mg PO Q6H PRN 05/28/19 11/05/19 History tablet insulin glargine 100 unit/mL (3 45 units SUBCUT HS #0 ml 06/17/19 11/05/19 Rx mL) subcutaneous pen Oxygen Home #1 ea 07/01/19 10/22/19 History docusate sodium 100 mg capsule 100 mg PO Q2D cap 07/01/19 11/05/19 History diphenhydramine HCl 25 mg capsule 25 mg PO Q8H PRN 07/02/19 11/05/19 History ferrous sulfate 325 mg (65 mg 325 mg PO QAM tab 07/02/19 11/05/19 History iron) tablet metoprolol succinate 25 mg 50 mg PO QAM tab 07/02/19 11/05/19 History tablet,extended release 24 hr oxycodone 5 mg capsule 5 mg PO DAILY 07/02/19 11/05/19 History sucralfate 1 gram tablet 1 gm PO ONCE PRN tab 07/02/19 11/05/19 History trazodone 50 mg tablet 50 mg PO DAILY PRN 07/02/19 11/05/19 History lactase [Lactaid] 9,000 unit PO AC PRN 08/26/19 11/05/19 History potassium chloride 20 meq PO QAM 08/26/19 11/05/19 History simethicone 125 mg PO DAILY PRN 08/26/19 11/05/19 History blood-glucose meter #1 ea 09/18/19 10/22/19 Rx lancets #400 ea 09/18/19 10/22/19 Rx blood sugar diagnostic #400 ea 09/26/19 10/22/19 Rx levothyroxine 1,200 mcg PO QAM 10/07/19 11/05/19 History omeprazole 40 mg PO DAILY 10/07/19 11/05/19 History warfarin 1 mg tablet 2 mg PO DAILY tab 10/13/19 11/05/19 History Allergies Allergy/AdvReac Type Severity Reaction Status Date / Time daptomycin Allergy Severe SHORTNESS Verified 11/05/19 10:29 OF BREATH Iodinated Contrast Media Allergy Severe Anaphylaxis Verified 11/05/19 10:29 bee venom protein (honey bee) Allergy Intermediate HIVES Verified 11/05/19 10:29 clindamycin Allergy Intermediate HIVES Verified 11/05/19 10:29 Sulfa (Sulfonamide Allergy Intermediate BACTRIM-HIV Verified 11/05/19 10:29 Antibiotics) ES trimethoprim Allergy Intermediate HIVES Verified 11/05/19 10:29 vancomycin Allergy Intermediate RASH Verified 11/05/19 10:29 dulaglutide AdvReac Severe BRAND-TRULICITY, Verified 11/05/19 10:29 SEVERE GI UPSET, CONSTIPATION Past Med/Surg History Medical History (Updated 11/05/19 @ 16:59 by Brett Matamoros MD) Anasarca (Acute) Anemia (Acute) Arthritis (Acute) Asthma (Acute) Atrial fibrillation C. difficile colitis Chronic HFrEF (heart failure with reduced ejection fraction) Colon carcinoma metastatic to multiple sites (Chronic) Depression (Acute) Diabetes mellitus, type II (Acute) Dyslipidemia (Chronic) Dysphagia (Acute) Esophagitis (Resolved) Femur fracture, left (Acute) Left distal periprosthetic fracture s/p ORIF GERD (gastroesophageal reflux disease) (Chronic) H/O: lung cancer Left s/p L VATS Hepatitis (Chronic) HTN (hypertension) (Chronic) Hypothyroidism (Inactive) pen[facility]ent[facility] (current) use of anticoagulants (Acute) Lung cancer (Chronic) Metastatic colon cancer in female lung mets Mitral regurgitation (Chronic) "echo 10/14/15: mild-mod mitral regurg " Moderate protein malnutrition (Inactive) Morbid obesity MRSA colonization (Acute) Multiple pulmonary nodules determined by computed tomography of lung (Chronic) Obesity (BMI 30.0-34.9) (Inactive) ANA (obstructive sleep apnea) (Chronic) Periprosthetic fracture around internal prosthetic knee joint (Acute) 01/16/2019. GETA. MAC 3, grade 2 view. 7.0ETT. Rectal pain (Acute) Surgical History H/O carpal tunnel repair H/O total hysterectomy History of cardiac cath History of closure of ileostomy History of colostomy reversal History of ear surgery Eustachian tube History of laparotomy History of lung surgery History of surgical procedure Venous access port placement S/P colectomy S/P debridement Abdomen S/P T&A (status post tonsillectomy and adenoidectomy) S/P total knee arthroplasty Bilateral Family History Sister Hypothyroidism Myocardial infarction Mother Hypothyroidism Father Myocardial infarction Other Coronary heart disease DM II (diabetes mellitus, type II), controlled Social History Preferred Language: Sudanese Communication Ability: Effective Seals Engraver Required: No Beliefs That Will Affect Care: None marital status: Current Living Situation: Spouse current occupational status: unemployed and disabled Other Information That Helps Us Care for You: No Feels Safe at Home: Yes Safety Concerns: Feels Safe At This Time Smoking Status: Never smoker Do You Dip or Chew Tobacco: No ; Second Hand Exposure: No ; Tobacco Cessation Education Requested by Patient: No Hx Alcohol Use: No Hx Substance Use: No caffeine: Yes Dental Care, Regularly: No Physical Activity Frequency: Does not Exercise Seatbelt Use: never Sunscreen Use: Yes Review of Systems See HPI for pertinent positives & negatives. and A total of 10 systems reviewed and were otherwise negative Physical Exam Vital Signs Vital Signs - 24 hr 11/05/19 09:24 11/05/19 10:00 11/05/19 10:05 Temperature 36.4 C L Temperature Source Oral Pulse Rate 71 Pulse Rate [Apical] 71 Pulse Rate from SpO2 Sensor Pulse Rhythm [Apical] Irregular Respiratory Rate 15 15 Respiratory Effort / Characteristics Non-Labored Non-Labored Respiratory Depth Normal Normal Respiratory Pattern Regular Blood Pressure 133/105 H Blood Pressure [Left Arm] 133/105 H Blood Pressure Mean 114 Blood Pressure Mean [Left Arm] 114 Blood Pressure Position [Left Arm] Lying Pulse Oximetry 97 86 L 97 Oxygen Delivery Method Room Air Room Air Room Air Oxygen Flow Rate Sepsis Recent Fever Within 48 Hours No Sepsis New/Unexplained Change in Mental Status No Sepsis Action Taken by Nursing No Action Required 11/05/19 11:00 11/05/19 11:02 11/05/19 11:30 Temperature Temperature Source Pulse Rate 67 66 Pulse Rate [Apical] 70 Pulse Rate from SpO2 Sensor 73 65 Pulse Rhythm [Apical] Regular Respiratory Rate 15 20 18 Respiratory Effort / Characteristics Non-Labored Respiratory Depth Normal Respiratory Pattern Regular Blood Pressure 90/60 L 105/59 L Blood Pressure [Left Arm] 90/60 L Blood Pressure Mean 62 67 Blood Pressure Mean [Left Arm] 70 Blood Pressure Position [Left Arm] Pulse Oximetry 99 99 99 Oxygen Delivery Method Nasal Cannula Room Air Nasal Cannula Oxygen Flow Rate 2 2 Sepsis Recent Fever Within 48 Hours Sepsis New/Unexplained Change in Mental Status Sepsis Action Taken by Nursing 11/05/19 12:12 11/05/19 12:30 Temperature Temperature Source Pulse Rate 67 69 Pulse Rate [Apical] Pulse Rate from SpO2 Sensor 69 71 Pulse Rhythm [Apical] Respiratory Rate 18 22 Respiratory Effort / Characteristics Respiratory Depth Respiratory Pattern Blood Pressure 104/51 L 101/57 L Blood Pressure [Left Arm] Blood Pressure Mean 67 69 Blood Pressure Mean [Left Arm] Blood Pressure Position [Left Arm] Pulse Oximetry 100 99 Oxygen Delivery Method Nasal Cannula Nasal Cannula Oxygen Flow Rate 2 2 Sepsis Recent Fever Within 48 Hours Sepsis New/Unexplained Change in Mental Status Sepsis Action Taken by Nursing GENERAL: Awake, alert, weak and chronically ill-appearing. HENT: Normocephalic, atraumatic. EYES: Normal conjunctiva. Sclera non-icteric. NECK: Supple. No nuchal rigidity. RESPIRATORY: Clear to auscultation. Normal respiratory effort. CARDIAC: Normal rate. Normal rhythm. Extremities warm and well perfused. GI: Soft, non-distended. Mild epigastric tenderness to palpation. RECTAL: Deferred. MUSCULOSKELETAL: Atraumatic. Chest examination reveals left upper chest port and mild anterior chest wall tenderness. Mild pain with left upper extremity range of motion. There is no CVA tenderness to palpation. LOWER EXTREMITIES: Significant pain with movement and palpation of left hip. Lower extremities are NVI. Calves are equal size bilaterally. 1+ LLE. NEURO: Normal sensorium. No sensory deficits noted. Pain limits rom of LLE. No facial droop. SKIN: Warm and dry. No jaundice noted. Course Course 0936: Past medical records reviewed. The patient was evaluated in room B2. A complete history and physical exam was performed. 1123: I reevaluated and updated the patient on her case. 1230: I reviewed the patient's case with Dr. Barroso-Hospitalist [facility]. Dr. Barroso will evaluate the patient for further management. Consultations Consultation #1: I reviewed the patient's case with Dr. Barroso-Hospitalist [facility]. Dr. Barroso will evaluate the patient for further management. Time: 12:30 Administered Medications Hydromorphone HCl (Dilaudid) 0.25 - 0.5 mg IV Q1H PRN PRN Reason: Moderate/Severe Pain Stop: 11/19/19 13:48 Last Admin: 11/05/19 14:52 Dose: 0.5 mg Documented by: [id number] Insulin Human Regular 250 (units/ Sodium Chloride) 250 mls @ 1.4 mls/hr IV .Q24H ELZIABETH; Protocol Stop: 12/05/19 11:44 Last Titration: 11/05/19 16:20 Dose: 1.4 units/hr, 1.4 mls/hr Documented by: [id number] Cosigned by: [id number] Titration: 11/05/19 15:04 Dose: 0 units/hr, 0 mls/hr Documented by: [id number] Cosigned by: [id number] Titration: 11/05/19 14:57 Dose: 1.4 units/hr, 1.4 mls/hr Documented by: [id number] Cosigned by: [id number] Titration: 11/05/19 14:24 Dose: 1.2 units/hr, 1.2 mls/hr Documented by: [id number] Cosigned by: [id number] Titration: 11/05/19 14:04 Dose: 0 units/hr, 0 mls/hr Documented by: [id number] Cosigned by: [id number] Admin: 11/05/19 12:54 Dose: 1.2 units/hr, 1.2 mls/hr Documented by: [id number] Cosigned by: [id number] Magnesium Sulfate/Dextrose (Magnesium Sulfate / D5w) 1 gm in 100 mls @ 100 mls/hr IV Q1H ELIZABETH Stop: 11/05/19 17:59 Last Admin: 11/05/19 15:54 Dose: 100 mls/hr Documented by: [id number] Potassium Chloride (K Tera / Wtr) 10 meq in 100 mls @ 100 mls/hr IV Q1H ELIZABETH Stop: 11/05/19 18:44 Last Admin: 11/05/19 15:50 Dose: Not Given Documented by: [id number] Discontinued Medications Fentanyl Citrate (Fentanyl Citrate) 100 mcg IV NOW STA Stop: 11/05/19 09:42 Last Admin: 11/05/19 09:57 Dose: 100 mcg Documented by: [id number] Fentanyl Citrate (Fentanyl Citrate) 50 mcg IV NOW STA Stop: 11/05/19 12:37 Last Admin: 11/05/19 12:38 Dose: 50 mcg Documented by: [id number] Potassium Chloride (K Tera / Wtr) 10 meq in 100 mls @ 100 mls/hr IV ONE ONE Stop: 11/05/19 11:16 Last Infusion: 11/05/19 12:27 Dose: 0 mls/hr Documented by: [id number] Admin: 11/05/19 11:06 Dose: 100 mls/hr Documented by: [id number] Phytonadione 5 mg/ Sodium (Chloride) 50.5 mls @ 101 mls/hr IV ONE ONE Stop: 11/05/19 14:08 Last Infusion: 11/05/19 15:07 Dose: 0 mls/hr Documented by: [id number] Admin: 11/05/19 14:26 Dose: 101 mls/hr Documented by: [id number] Potassium Chloride (K Tera / Wtr) 10 meq in 100 mls @ 100 mls/hr IV Q1H STA Stop: 11/05/19 14:52 Last Admin: 11/05/19 15:34 Dose: 100 mls/hr Documented by: [id number] Insulin Human Regular (Novolin R Bolus From Bag) 1 units IV ONE ONE Stop: 11/05/19 13:01 Last Admin: 11/05/19 12:55 Dose: 1 units Documented by: [id number] Cosigned by: [id number] Miscellaneous (Insulin Protocol Goal Range) 1 ea N/A ONE ONE Stop: 11/05/19 11:40 Last Admin: 11/05/19 12:55 Dose: 1 ea Documented by: [id number] Miscellaneous (Insulin Protocol Moderate Stress Level) 1 ea N/A ONE ONE Stop: 11/05/19 11:40 Last Admin: 11/05/19 12:55 Dose: 1 ea Documented by: [id number] Potassium Chloride (Klor-Con M20) 40 meq PO NOW STA Stop: 11/05/19 13:54 Last Admin: 11/05/19 15:50 Dose: Not Given Documented by: [id number] Potassium Chloride (Klor-Con M20) 40 meq PO ONE ONE Stop: 11/05/19 15:46 Last Admin: 11/05/19 15:55 Dose: 40 meq Documented by: [id number] Medical Decision Making Differential Diagnosis Differential diagnosis: Etiologies such as fracture, dislocation, intra-abdominal, pneumothorax, intrathoracic , intracranial, neurologic, as well as other traumatic pathologies were entertained. Medical Records Attestation: I reviewed the patient's medical records. Home Medications Current Medication List: was personally reviewed by me Laboratory Data Attestation: I reviewed the patient's lab results. Result diagrams: 11/05/19 09:38 11/05/19 15:10 Lab Results 11/05/19 11/05/19 11/05/19 Range/Units 09:38 09:38 09:38 WBC 10.28 (4.8-10.8) K/uL RBC 3.67 L (4.2-5.4) M/uL Hgb 12.9 (12.0-16.0) g/dL Hct 34.0 L (37-47) % MCV 92.6 (80-100) fL MCH 35.1 H (25-34) pg MCHC 37.9 H (32-36) g/dL RDW Std Deviation 54.1 H (36.4-46.3) fL RDW Coeff of Stanley 16.1 H (11.5-14.5) % Plt Count 237 (130-400) K/uL MPV 9.6 (7.4-10.4) fL Immature Gran % (Auto) 0.6 % Neut % (Auto) 77.0 % Lymph % (Auto) 14.7 % [place] % (Auto) 6.0 % Eos % (Auto) 1.6 % Baso % (Auto) 0.1 % Immature Gran # (Auto) 0.06 H (0.00-0.02) K/uL Neut # (Auto) 7.92 H (1.4-6.5) K/uL Lymph # (Auto) 1.51 (1.2-3.4) K/uL [place] # (Auto) 0.62 H (0.11-0.59) K/uL Eos # (Auto) 0.16 (0-0.5) K/uL Baso # (Auto) 0.01 (0-0.2) K/uL PT 28.2 H (9.0-12.0) Seconds INR 3.0 H (0.9-1.1) Sodium 130 L (136-145) mmol/L Potassium 2.7 L (3.5-5.1) mmol/L Chloride 88 L (98-107) mmol/L Carbon Dioxide 33 H (21-32) mmol/L Anion Gap 9.0 (3-11) BUN 13 (7-18) mg/dl Creatinine 0.96 (0.6-1.2) mg/dl Est Cr Clr Drug Dosing 47.6 ml/min Est GFR ( Amer) 77.2 Est GFR (Non-Af Amer) 66.6 BUN/Creatinine Ratio 13.9 (10-20) Glucose 563 H* (70-99) mg/dl POC Glucose (70-99) mg/dl Calcium 9.4 (8.5-10.1) mg/dl Magnesium (1.8-2.4) mg/dl Total Bilirubin 2.2 H (0.2-1) mg/dl AST 21 (15-37) U/L ALT 17 (12-78) U/L Alkaline Phosphatase 185 H (45-117) U/L Troponin I 0.080 H* (0-0.045) ng/ml Total Protein 6.3 L (6.4-8.2) gm/dl Albumin 2.8 L (3.4-5.0) gm/dl Globulin 3.5 (2.5-4.0) gm/dl Albumin/Globulin Ratio 0.8 L (0.9-2) Beta-Hydroxybutyric Acd 7.33 H (0.2-2.81) mg/dl Urine Color Urine Appearance (Clear) Urine pH (4.5-7.5) Ur Specific [place] (1.000-1.030) Urine Protein (Negative) Urine Glucose (UA) (Negative) Urine Ketones (Negative) Urine Blood (Negative) Urine Nitrite (Negative) Urine Bilirubin (Negative) Urine Urobilinogen (Negative) Ur Leukocyte Esterase (Negative) Blood Type Antibody Screen 11/05/19 11/05/19 11/05/19 Range/Units 09:38 09:50 09:55 WBC (4.8-10.8) K/uL RBC (4.2-5.4) M/uL Hgb (12.0-16.0) g/dL Hct (37-47) % MCV (80-100) fL MCH (25-34) pg MCHC (32-36) g/dL RDW Std Deviation (36.4-46.3) fL RDW Coeff of Stanley (11.5-14.5) % Plt Count (130-400) K/uL MPV (7.4-10.4) fL Immature Gran % (Auto) % Neut % (Auto) % Lymph % (Auto) % [place] % (Auto) % Eos % (Auto) % Baso % (Auto) % Immature Gran # (Auto) (0.00-0.02) K/uL Neut # (Auto) (1.4-6.5) K/uL Lymph # (Auto) (1.2-3.4) K/uL [place] # (Auto) (0.11-0.59) K/uL Eos # (Auto) (0-0.5) K/uL Baso # (Auto) (0-0.2) K/uL PT (9.0-12.0) Seconds INR (0.9-1.1) Sodium (136-145) mmol/L Potassium (3.5-5.1) mmol/L Chloride (98-107) mmol/L Carbon Dioxide (21-32) mmol/L Anion Gap (3-11) BUN (7-18) mg/dl Creatinine (0.6-1.2) mg/dl Est Cr Clr Drug Dosing ml/min Est GFR ( Amer) Est GFR (Non-Af Amer) BUN/Creatinine Ratio (10-20) Glucose (70-99) mg/dl POC Glucose (70-99) mg/dl Calcium (8.5-10.1) mg/dl Magnesium 1.6 L (1.8-2.4) mg/dl Total Bilirubin (0.2-1) mg/dl AST (15-37) U/L ALT (12-78) U/L Alkaline Phosphatase (45-117) U/L Troponin I (0-0.045) ng/ml Total Protein (6.4-8.2) gm/dl Albumin (3.4-5.0) gm/dl Globulin (2.5-4.0) gm/dl Albumin/Globulin Ratio (0.9-2) Beta-Hydroxybutyric Acd (0.2-2.81) mg/dl Urine Color Yellow Urine Appearance Clear (Clear) Urine pH 6.0 (4.5-7.5) Ur Specific [place] 1.027 (1.000-1.030) Urine Protein Negative (Negative) Urine Glucose (UA) 3+ H (Negative) Urine Ketones Negative (Negative) Urine Blood Negative (Negative) Urine Nitrite Negative (Negative) Urine Bilirubin Negative (Negative) Urine Urobilinogen Negative (Negative) Ur Leukocyte Esterase Negative (Negative) Blood Type A Negative Antibody Screen NEGATIVE 11/05/19 Range/Units 12:13 WBC (4.8-10.8) K/uL RBC (4.2-5.4) M/uL Hgb (12.0-16.0) g/dL Hct (37-47) % MCV (80-100) fL MCH (25-34) pg MCHC (32-36) g/dL RDW Std Deviation (36.4-46.3) fL RDW Coeff of Stanley (11.5-14.5) % Plt Count (130-400) K/uL MPV (7.4-10.4) fL Immature Gran % (Auto) % Neut % (Auto) % Lymph % (Auto) % [place] % (Auto) % Eos % (Auto) % Baso % (Auto) % Immature Gran # (Auto) (0.00-0.02) K/uL Neut # (Auto) (1.4-6.5) K/uL Lymph # (Auto) (1.2-3.4) K/uL [place] # (Auto) (0.11-0.59) K/uL Eos # (Auto) (0-0.5) K/uL Baso # (Auto) (0-0.2) K/uL PT (9.0-12.0) Seconds INR (0.9-1.1) Sodium (136-145) mmol/L Potassium (3.5-5.1) mmol/L Chloride (98-107) mmol/L Carbon Dioxide (21-32) mmol/L Anion Gap (3-11) BUN (7-18) mg/dl Creatinine (0.6-1.2) mg/dl Est Cr Clr Drug Dosing ml/min Est GFR ( Amer) Est GFR (Non-Af Amer) BUN/Creatinine Ratio (10-20) Glucose (70-99) mg/dl POC Glucose 536 H* (70-99) mg/dl Calcium (8.5-10.1) mg/dl Magnesium (1.8-2.4) mg/dl Total Bilirubin (0.2-1) mg/dl AST (15-37) U/L ALT (12-78) U/L Alkaline Phosphatase (45-117) U/L Troponin I (0-0.045) ng/ml Total Protein (6.4-8.2) gm/dl Albumin (3.4-5.0) gm/dl Globulin (2.5-4.0) gm/dl Albumin/Globulin Ratio (0.9-2) Beta-Hydroxybutyric Acd (0.2-2.81) mg/dl Urine Color Urine Appearance (Clear) Urine pH (4.5-7.5) Ur Specific [place] (1.000-1.030) Urine Protein (Negative) Urine Glucose (UA) (Negative) Urine Ketones (Negative) Urine Blood (Negative) Urine Nitrite (Negative) Urine Bilirubin (Negative) Urine Urobilinogen (Negative) Ur Leukocyte Esterase (Negative) Blood Type Antibody Screen Imaging Data Radiologist's Impression: Radiology results as stated below per my review and the radiologist's interpretation: ABDOMEN AND PELVIS CT WITHOUT CONTRAST CT DOSE: 297.00 mGycm HISTORY: fall, epigastric, L hip pain TECHNIQUE: Multiaxial CT images of the abdomen and pelvis were performed without contrast. A dose lowering technique was utilized adhering to the principles of ALARA. COMPARISON STUDY: Abdomen and pelvis CT 10/07/2019. FINDINGS: A tip of a central venous catheter is seen at the superior cava show junction. Slight increase in size in the 11 mm metastatic nodule within the base of the right lower lobe. Suture material again noted within the left lung base. No pneumoperitoneum. No pneumatosis. There is an angulated left intertrochanteric hip fracture. This is also slightly impacted. No dislocation. No change in the mild superior endplate compression deformity at L1. The heart remains mildly enlarged. Mild body wall edema. Small right anterior fat- containing abdominal wall hernia. Stable mildly enlarged and partially calcified left iliac lymph node measuring 1 cm in short axis diameter. There is a Hirsch catheter within the bladder. This likely accounts for the gas within the bladder lumen. The uterus is surgically absent. No significant change in the 3 cm irregular soft tissue density at the presacral space with a few additional smaller adjacent soft tissue nodules. This abuts and likely invades into the posterior rectal wall. Tiny focus of gas within this lesion is also unchanged and is consistent with a small fistula. There are suture material at the rectum and this soft tissue abnormality. This is consistent with postoperative change. No evidence for bowel obstruction. Normal appendix. No retroperitoneal lymphadenopathy. A few punctate gallstones. No gallbladder wall thickening. The unenhanced pancreas, spleen, right adrenal gland, kidneys are unremarkable. No hydronephrosis. Stable left adrenal gland thickening. A few scattered hepatic hypodense lesions are again noted. Dominant lesion within the left hepatic lobe measures 1.7 cm, previously measuring 1.1 cm. These have slightly increased in size. Stable lucent lesion within the right acetabulum. IMPRESSION: 1. A left intertrochanteric hip fracture. 2. Slight increase in size in the hepatic lesions and the right lower lobe pulmonary nodule consistent with progression of metastatic disease. 3. No change in the lucent lesions within the right acetabulum. 4. Redemonstration of the irregular soft tissue abnormality within the presacral space which abuts and likely invades into the posterior rectal wall. There are a few additional adjacent soft tissue nodules. This also likely represents residual metastatic disease. ACT 112: Negative or not required by law. Electronically signed by: Anthony Davis M.D. 11/05/2019 10:[address] chest wo con CT DOSE: 144.02 mGycm CLINICAL HISTORY: 53 years-old Female with fall, sternal pain. Acute mid chest and sternal pain status post fall. History of colon cancer. TECHNIQUE: Multiaxial CT images of the chest were performed without contrast. A dose lowering technique was utilized adhering to the principles of ALARA. COMPARISON: CT abdomen and pelvis of same day, chest CT 05/13/2019 FINDINGS: Unremarkable thyroid. Left subclavian [id number] catheter distal tip terminates within the right atrium. Moderate cardiomegaly. No pericardial effusion. Coronary arterial calcifications. No thoracic aortic aneurysm. Dilated main pulmonary artery, 3.1 cm may reflect pulmonary arterial hypertension. There are a few prominent left supraclavicular lymph nodes redemonstrated measuring up to 5 mm. Paratracheal and AP window lymph nodes are also noted which have mildly decreased from comparison. A precarinal 9 mm lymph node previously measured 11 mm. No new or progressive adenopathy. Limited evaluation of the lung parenchyma secondary to respiratory motion artifact. Postoperative changes of the left lower lobe suggest prior wedge resection. 5 mm solid nodule of the left lower lobe, image 126 series 4 previously measured 6 mm. 6 mm nodule the super segment left lower lobe pre viously measured 8 mm. 7 mm right upper lobe pulmonary nodule previously measured 1.4 cm. Additional nodules have also decreased in size from comparison. No new or progressive disease identified. No overt pulmonary edema, pneumothorax, pleural effusion or airspace consolidation typical for pneumonia. Central airways appear patent. No acute processes of the imaged upper abdomen. Ill-defined hepatic lesions suggestive of metastasis redemonstrated. Soft tissues are unremarkable. No definite lytic or blastic osseous lesions. Degenerative changes of the shoulders and spine. No acute fracture identified, specifically the sternum appears intact. IMPRESSION: 1. No acute intrathoracic abnormality identified, specifically no acute fracture or pneumothorax. 2. Thoracic and upper abdominal metastatic disease redemonstrated as above with findings compatible with positive response to therapy. 3. Cardiomegaly. 4. Additional findings as above. ACT 112: Negative or not required by law. Electronically signed by: Jayjay Crowder M.D. 11/05/2019 10:34 AM XR femur LT 2V routine, XR knee LT 3V HISTORY: 53 years-old Female fall pain acute left femur and knee pain status post fall COMPARISON: Pelvis radiograph 10/03/2019 TECHNIQUE: 2 views of the left femur and 3 views of the left knee FINDINGS: FEMUR: There is an acute mildly impacted fracture of the intertrochanteric left femur with apex superolateral angulation. Femoral head is intact. No dislocation. Demineralized appearance the bones. Mild to moderate left hip osteoarthritis. Mild soft tissue swelling. Plate and screw fusion of the distal femur appears intact. KNEE: Remote fracture deformity of the distal femur. Intact plate and screw fusion. Limited exam secondary to positioning. The joint arthroplasty. Small joint effusion. Ossifications are noted inferior to the patella. No definite acute fracture identified. IMPRESSION: Acute impacted and angulated intratrochanteric fracture of the left femur. ACT 112: Negative or not required by law. The above report was generated using voice recognition software. It may contain grammatical, syntax or spelling errors. Electronically signed by: Jayjay Crowder M.D. 11/05/2019 12:18 PM XR pelvis 1-2V routine CLINICAL HISTORY: 53 years-old Female presenting with fall at home this morning, L pain. TECHNIQUE: Single frontal view of the pelvis was obtained. COMPARISON: 10/03/2019. FINDINGS: Interval development of a basicervical left femoral neck fracture. Significant coxa vera angulation. The fracture plane may be mildly comminuted with displacement of a greater trochanter fracture fragment. Significant underlying osteopenia. The left femoral head remains congruent in the acetabulum. The bony pelvis is grossly intact. Lower lumbar spine normal. Right hip joint grossly normal. Suture lines project over the pelvis. IMPRESSION: 1. Significantly angulated and mildly comminuted basicervical left femoral neck fracture. 2. Underlying significant osteopenia. ACT 112: Negative or not required by law. Electronically signed by: Riaz Blackwood M.D. 11/05/2019 12:11 PM XR chest 1V portable CLINICAL HISTORY: 53 years-old Female presenting with fall, pain in the left shoulder and femur. TECHNIQUE: Portable upright AP view of the chest was obtained. COMPARISON: 08/26/[address] chest from 11/05/2019. FINDINGS: Left subclavian Mediport terminates in the superior cavoatrial junction and has been accessed. Cardiac silhouette mildly enlarged. Bandlike opacity at the left lung base unchanged. The presence of underlying pulmonary nodules is better appreciated on chest CT. No pleural effusion or pneumothorax. Degenerative changes of the thoracic spine. Upper abdomen normal. IMPRESSION: 1. No acute cardiopulmonary disease. 2. Mild cardiomegaly. 3. Underlying pulmonary metastatic disease better appreciated on chest CT. ACT 112: Negative or not required by law. Electronically signed by: Riaz Blackwood M.D. 11/05/2019 12:09 PM XR shoulder LT min 2V routine CLINICAL HISTORY: 53 years-old Female presenting with fall at home this morning, left shoulder pain. TECHNIQUE: Internal rotation and Grashey views of the left shoulder were obtained. COMPARISON: None. FINDINGS: Significant underlying osteopenia. Left subclavian Mediport in place and accessed. This mildly degrades image quality due to overlap at the glenohumeral joint. No acute fracture or malalignment. No advanced degenerative change. No radiographic soft tissue abnormality. IMPRESSION: 1. No acute osseous injury allowing for image quality limitations as above. 2. Significant osteopenia. ACT 112: Negative or not required by law. Electronically signed by: Riaz Blackwood M.D. 11/05/2019 12:21 PM ECG Data Attestation: I personally reviewed and interpreted this ECG as follows: Indication: + chest pain and + other (trauma ) Rate (beats per minute): 64 Rhythm: + atrial flutter ECG Intervals/blocks: + Normal QT-c ECG ST segments: + ST depression (mild lateral ); no ST elevation ECG Findings: + Other (Variable AV block) Comparison ECG Date: from (08/26/19) Change: no significant change Blood Pressure Blood Pressure Findings: Low blood pressure Blood Pressure Disposition: further management by hospitalist MDM Narrative Patient is a 53-year-old female with past medical history of diabetes, congestive heart failure, atrial fibrillation, esophagitis/GERD, hypertension, and hypothyroidism presenting today after a fall complaining of hip pain. Patient is significantly anticoagulated on Coumadin. States that she tripped and fell with her walker on her left side. Significant left hip and left upper leg pain. Neurovascular intact in lower extremities. Complains of a little bit of pain left shoulder and x-ray obtained here. Doubt fracture. Complains of some midsternal and epigastric abdominal pain. IV contrast allergy. Given this Noncon CT of the chest and abdomen pelvis was obtained. Patient denies striking her head or any head neck pain. Will defer imaging at this time. GCS 15. Given fentanyl here for pain. Basic laboratory studies show an INR of 3. Mildly elevated troponin although fairly similar to previous. Hypokalemia is noted of significance as well as hyperglycemia. Intravenous potassium suppleme ntation was ordered. Admitting team contacted for admission for definite repair of hip. They also requested insulin drip be ordered. Orthopedics was paged. Impression & Plan Fall, Fracture of left hip, Acute hypokalemia Discharge Plan Visit Data *Final* Discharge Date/Time: 11/05/19 13:49 Chief Complaint: Fall Stated Complaint: Hip Pain ED Provider: Sriram Ayala Discharge Problem: Fall, Fracture of left hip, Acute hypokalemia Patient Disposition: Being Evaluated by Hospitalist Discharge Instructions Interventions: ED Discharge Assessment Last Done: 11/05/19 13:49 Discharge Problem: Fall Qualifiers: Encounter type: initial encounter Qualified Code(s): W19.XXXA - Unspecified fall, initial encounter The scribe's documentation has been prepared under my direction and personally reviewed by me in its entirety. I confirm that the note above accurately reflects all work, treatment, procedures, and medical decision making performed by me.
[2019-11-05] MEDS: INSULIN ASPART 100 UNITS/ML 3 ML PEN SC SCH ×2 (17:22→21:56)
[2019-11-05] MEDS ORDERED: INSULIN GLARGINE SOLOSTAR 100 UNITS/ML 3 ML PEN SC ONE ×2 (18:30)
[2019-11-05 19:34] LABS: Glucose 424 mg/dl (70-99)
[2019-11-05 20:25] LABS: BUN Creatinine Ratio 14.2 (10-20); Calcium 9.1 mg/dl (8.5-10.1); Creatinine Clr Calc Pharmacy 51.3 ml/min; Est GFR (African American) 84.6; Potassium 4.5 mmol/L (3.5-5.1)
--- NOTE | 2019-11-05 20:43 | Pharmacy Report ---
Glycemic Control Consultation - Date of Service November 05, 2019 - Scope Scope: Glycemic Pharmacist consulted by Dr Barroso on 11/05/19 for glycemic control and to write orders per [facility] inpatient glycemic control protocol - Objective Weight: 50 kg Accuchecks BSG (last 24hrs): 11/05/19 11/05/19 11/05/19 09:38 12:13 13:59 Glucose 563 H* POC Glucose 536 H* 471 H* 11/05/19 11/05/19 11/05/19 14:55 15:10 16:11 Glucose 405 H* POC Glucose 419 H* 430 H* 11/05/19 11/05/19 11/05/19 16:12 17:16 17:17 Glucose POC Glucose 409 H* 428 H* 423 H* 11/05/19 11/05/19 11/05/19 18:25 18:28 18:31 Glucose POC Glucose 432 H* 472 H* 425 H* 11/05/19 18:50 Glucose 424 H* POC Glucose Laboratory Data (last 24hrs): 11/05/19 11/05/19 11/05/19 09:38 15:10 18:50 Potassium 2.7 L 3.0 L Carbon Dioxide 33 H 34 H Anion Gap 9.0 7.0 Creatinine 0.96 0.79 Est Cr Clr Drug Dosing 47.6 57.8 Beta-Hydroxybutyric Acd 7.33 H 8.39 H - Recent Pertinent Medications Outpatient Anti-diabetic Regimen: * Lantus 45 units HS * Novolog sliding scale TID * A1c = 12.4 % (06/27/19) -> A1c pending for tomorrow - Assessment & Plan Assessment & Plan: ASSESSMENT: * HT is a 53 year old female who presents to [facility] s/p fall * In ED - patient found to have intertrochanteric fracture of left femur * Possible surgical intervention tomorrow 11/06/19 * BSG in ED of 563 mg/dL - insulin drip initiated at that time with 1 unit bolus * Potassium of 2.7 mmol/L in ED - repleted with IV and PO potassium * Currently NSS with 20 mEq of potassium infusing at 100 mL/hr * Fluid status to be monitored given significant history of HFrEF PLAN FOR INPATIENT GLYCEMIC CONTROL: * Starting IV insulin infusion per moderate stress protocol * Goal Range 140 - 180 mg/dl * At this time - Continuous IV insulin infusion is the best method for achieving glycemic targets. * Basal insulin * Lantus 35 units given this morning (80% reduction from home dose given probable NPO status tomorrow for surgery) * Bolus insulin * NovoLog per scale ACHS or Q6hrs while NPO * Goal Range: Low 140 mg/dL - High 180 mg/dL * Nutritional / Prandial insulin per carb ratio of 1 unit per 4 grams CHO consumed * Please note that the plan above was derived based on current level of insulin resistance and hospital stress. These recommendations are appropriate for inpatient admission only. Plan of care upon discharge will need to be reassessed to avoid potential outpatient hypo/hyperglycemia. Thank you.
[2019-11-05] MEDS ORDERED: POTASSIUM CHLORIDE 20 MEQ TABCR PO SCH (21:00)
[2019-11-06] MEDS ORDERED: D5NSS + 20MEQ KCL 20 MEQ/1,000 ML BAG IV SCH (00:15)
[2019-11-06] MEDS: HYDROmorphone INJ 0.5 MG/0.5 ML SYR IV PRN ×2 (00:43→08:55)
[2019-11-06 00:45] LABS: INR 1.6 (0.9-1.1); Prothrombin Time 15.5 Seconds (9.0-12.0)
[2019-11-06 00:53] LABS: Base Excess VBG 9.4 mEq/L; HCO3 VBG 35 mmol/L; Oxygen Saturation VBG 68.2 %; PCO2 VBG 51 mmHg (38-50); PO2 VBG 37 mmHg; pH VBG 7.46 (7.36-7.41)
[2019-11-06 00:55] LABS: BUN Creatinine Ratio 21.6 (10-20); Creatinine Clr Calc Pharmacy 72.5 ml/min; Potassium 4.6 mmol/L (3.5-5.1)
[2019-11-06] MEDS ORDERED: PHYTONADIONE 5 MG in SODIUM CHLORIDE 0.9% 50 ML IV ONE (02:02)
[2019-11-06 06:16] LABS: INR 1.4 (0.9-1.1); Prothrombin Time 14.2 Seconds (9.0-12.0)
[2019-11-06] MEDS: INSULIN ASPART 100 UNITS/ML 3 ML PEN SC SCH ×4 (06:17→21:07)
[2019-11-06 06:19] LABS: Basophils # (auto) 0.01 K/uL (0-0.2); Basophils % (auto) 0.1 %; Eosinophils # (auto) 0.24 K/uL (0-0.5); Eosinophils % (auto) 2.6 %; Hematocrit (blood only) 31.4 % (37-47); Hemoglobin 11.3 g/dL (12.0-16.0); Immature Granulocytes # (auto) 0.04 K/uL (0.00-0.02); Immature Granulocytes % (auto) 0.4 %; Lymphocytes # (auto) 2.15 K/uL (1.2-3.4); Lymphocytes % (auto) 23.1 %; Mean Corpuscular Hemoglobin 35.4 pg (25-34); Mean Corpuscular Volume 98.4 fL (80-100); Mean Platelet Volume 8.9 fL (7.4-10.4); Monocytes % (auto) 10.8 %; Neutrophils # (auto) 5.86 K/uL (1.4-6.5); Platelet Count 156 K/uL (130-400); RDW Coefficient of Variation 16.7 % (11.5-14.5); Red Blood Count 3.19 M/uL (4.2-5.4)
[2019-11-06] MEDS ORDERED: LEVOTHYROXINE SODIUM 200 MCG TABLET PO SCH (06:30)
[2019-11-06 06:35] LABS: Estimated Average Glucose 355 mg/dl
[2019-11-06 06:44] LABS: Alanine Aminotransferase 14 U/L (12-78); Albumin Level 2.3 gm/dl (3.4-5.0); Aspartate Aminotransferase 20 U/L (15-37); Blood Urea Nitrogen 13 mg/dl (7-18); Calcium 8.9 mg/dl (8.5-10.1); Carbon Dioxide 33 mmol/L (21-32); Chloride 103 mmol/L (98-107); Creatinine Clr Calc Pharmacy 92.5 ml/min; Est GFR (African American) 123.1; Est GFR (Non-African American) 106.2; Glucose 128 mg/dl (70-99); Magnesium 1.8 mg/dl (1.8-2.4); Potassium 5.2 mmol/L (3.5-5.1); Sodium 137 mmol/L (136-145)
[2019-11-06 06:56] LABS: Albumin Globulin Ratio 0.8 (0.9-2); Alkaline Phosphatase 137 U/L (45-117); Bilirubin,Total 2.1 mg/dl (0.2-1); Globulin 2.9 gm/dl (2.5-4.0); Thyroid Stimulating Hormone 0.087 uIu/ml (0.300-4.500); Total Protein 5.2 gm/dl (6.4-8.2)
[2019-11-06 07:14] LABS: T4 Free Thyroxine > 8.00 ng/dl (0.8-1.6)
--- NOTE | 2019-11-06 07:44 | XRay Report ---
XR chest 1V portable HISTORY: Shortness of breath. pulmonary edema COMPARISON: Chest 11/05/2019. FINDINGS: Small linear density at the left lung base remains stable favor scarring or atelectasis. Th e lungs are otherwise clear. The heart is borderline enlarged. No pleural effusions. No pneumothorax. Left-sided subclavian Port-A-Cath terminates at the distal SVC. Underlying pulmonary metastatic dise ase is better appreciated on the recent chest CT. Dominant right infrahilar nodule measures 1.4 cm. IMPRESSION: 1. No acute process within the chest. 2. Pulmonary metastatic disease is again noted. ACT 112: Negative or not required by law. Electronically signed by: Anthony Davis M.D. 11/06/2019 7:43 AM
[2019-11-06] MEDS ORDERED: PHYTONADIONE 2.5 MG in SODIUM CHLORIDE 0.9% 50 ML IV ONE (08:30)
[2019-11-06] MEDS: PSYLLIUM 58.6% POWDER PACKET PO SCH (08:39)
[2019-11-06] MEDS ORDERED: SPIRONOLACTONE 25 MG TAB PO SCH (09:00)
[2019-11-06] MEDS: DIGOXIN 0.125 MG TAB PO SCH (09:00)
[2019-11-06] MEDS ORDERED: DOCUSATE SODIUM 100 MG CAP PO SCH ×2 (09:00)
[2019-11-06] MEDS: PANTOprazole 40 MG TAB PO SCH (09:07)
[2019-11-06] MEDS: MAGNESIUM OXIDE 400 MG TAB PO SCH (09:07)
[2019-11-06] MEDS: FLUTICASONE/VILANTEROL 100/25MCG 14 PUFFS/INHALER INH SCH (09:08)
[2019-11-06] MEDS: METOPROLOL SUCC 50MG EXT REL TAB PO SCH (09:08)
[2019-11-06] MEDS ORDERED: D5W AND NSS 1,000 ML IV SCH (09:45)
--- NOTE | 2019-11-06 10:11 | History & Physical Bridge Note ---
Date of Service November 06, 2019 History & Physical Bridge Note I have examined the patient, reviewed the History & Physical and in the interval since the performance of the History & Physical I have noted the following changes of clinical significance: no changes noted
[2019-11-06] MEDS ORDERED: ONDANSETRON INJ 2 MG/ML 2 ML VIAL ONE (10:57)
[2019-11-06] MEDS ORDERED: LIDOCAINE HCL 2% 2 ML VIAL/AMP(20MG/ML) INFIL ONE (10:57)
[2019-11-06] MEDS ORDERED: DEXAMETHASONE SOD INJ 4 MG/ML VIAL ONE (10:57)
[2019-11-06] MEDS ORDERED: PROPOFOL IV EMULSION 10 MG/ML 20 ML VIAL IV ONE (10:57)
[2019-11-06] MEDS ORDERED: fentaNYL citrate 100 MCG/2 ML VIAL ONE ×2 (10:58→12:13)
[2019-11-06] MEDS ORDERED: MIDAZOLAM HCL 1 MG/ML 2ML VIAL ONE (10:58)
[2019-11-06] MEDS ORDERED: BUPIVACAINE/EPINEPHRINE 0.25% 1:200,000 30 ML VIAL ONE (11:04)
--- NOTE | 2019-11-06 11:07 | Anesthesiology Consultation ---
Date of Service November 06, 2019 Assessment & Plan ASA ASA4 Proposed Anesthesia Anesthesia Type: General Regional Regional Laterality: Left Site: other (Fascia illiaca) Risk / Benefits Reviewed With: PT / POA / Parent / Guardian, Accepts Plan and Informed Consent Obtained History Surgery Operation Date: 11/06/19 11:55 Proposed Procedures p Left Trochanteric Nailing - Riaz Rehman MD Height/Weight Height: 5 ft Weight: 56.2 kg Allergies Allergy/AdvReac Type Severity Reaction Status Date / Time daptomycin Allergy Severe SHORTNESS Verified 11/06/19 09:43 OF BREATH Iodinated Contrast Media Allergy Severe Anaphylaxis Verified 11/06/19 09:43 bee venom protein (honey bee) Allergy Intermediate HIVES Verified 11/06/19 09:43 clindamycin Allergy Intermediate HIVES Verified 11/06/19 09:43 Sulfa (Sulfonamide Allergy Intermediate BACTRIM-HIV Verified 11/06/19 09:43 Antibiotics) ES trimethoprim Allergy Intermediate HIVES Verified 11/06/19 09:43 vancomycin Allergy Intermediate RASH Verified 11/06/19 09:43 dulaglutide AdvReac Severe BRAND-TRULICITY, Verified 11/06/19 09:43 SEVERE GI UPSET, CONSTIPATION Medications Home Medications Medication Instructions Recorded Confirmed Last Taken Breo Ellipta 1 inh INHALATION DAILY MDD 1 dose 06/11/18 11/05/19 11/04/19 in 24 hours albuterol sulfate [Ventolin HFA] 2 - 4 puff INHALATION Q6H PRN 06/11/18 11/05/19 11/04/19 insulin aspart U-100 [Novolog 1 sliding scale dose SUBCUT TID 06/11/18 11/05/19 11/04/19 PenFill U-100 Insulin] magnesium oxide 400 mg PO QAM 06/11/18 11/05/19 11/04/19 digoxin 125 mcg (0.125 mg) tablet 0.125 mg PO QAM 11/28/18 11/05/19 11/04/19 acetaminophen 500 mg PO Q4 PRN 01/15/19 11/05/19 06/26/19 furosemide 40 mg PO UD 01/15/19 11/05/19 11/04/19 psyllium husk [Fiber-Caps 0.52 g PO DAILY 01/15/19 11/05/19 11/04/19 (psyllium husk)] spironolactone 12.5 mg PO DAILY 01/15/19 11/05/19 11/04/19 capecitabine 500 mg tablet 1,500 mg PO BID tab 05/28/19 11/05/19 11/04/19 prochlorperazine maleate 10 mg 10 mg PO Q6H PRN 05/28/19 11/05/19 06/26/19 tablet insulin glargine 100 unit/mL (3 45 units SUBCUT HS #0 ml 06/17/19 11/05/19 11/04/19 mL) subcutaneous pen Oxygen Home #1 ea 07/01/19 10/22/19 Unknown docusate sodium 100 mg capsule 100 mg PO Q2D cap 07/01/19 11/05/19 11/04/19 diphenhydramine HCl 25 mg capsule 25 mg PO Q8H PRN 07/02/19 11/05/19 Unknown ferrous sulfate 325 mg (65 mg 325 mg PO QAM tab 07/02/19 11/05/19 11/04/19 iron) tablet metoprolol succinate 25 mg 50 mg PO QAM tab 07/02/19 11/05/19 11/04/19 tablet,extended release 24 hr oxycodone 5 mg capsule 5 mg PO DAILY 07/02/19 11/05/19 Unknown sucralfate 1 gram tablet 1 gm PO ONCE PRN tab 07/02/19 11/05/19 11/04/19 trazodone 50 mg tablet 50 mg PO DAILY PRN 07/02/19 11/05/19 Unknown lactase [Lactaid] 9,000 unit PO AC PRN 08/26/19 11/05/19 11/04/19 potassium chloride 20 meq PO QAM 08/26/19 11/05/19 11/04/19 simethicone 125 mg PO DAILY PRN 08/26/19 11/05/19 11/04/19 blood-glucose meter #1 ea 09/18/19 10/22/19 Unknown lancets #400 ea 09/18/19 10/22/19 Unknown blood sugar diagnostic #400 ea 09/26/19 10/22/19 Unknown levothyroxine 1,200 mcg PO QAM 10/07/19 11/05/19 11/05/19 omeprazole 40 mg PO DAILY 10/07/19 11/05/19 11/04/19 warfarin 1 mg tablet 2 mg PO DAILY tab 10/13/19 11/05/19 11/04/19 Active Medications Generic Name Dose Route Start Last Admin Trade Name Maggi PRN Reason Stop Dose Admin Digoxin 0.125 mg 11/06/19 09:00 11/06/19 09:00 Lanoxin PO 12/06/19 08:59 0.125 mg QAM ELIZABETH Administration Docusate Sodium 100 mg 11/06/19 09:00 11/06/19 08:41 Colace PO 12/06/19 08:59 Not Given BID ELIZABETH Fluticasone/Vilanterol 1 puffs 11/06/19 09:00 11/06/19 09:08 Breo Ellipta 100/25 Mcg Inh INH 12/06/19 08:59 1 puffs DAILY ELIZABETH Administration Hydromorphone HCl 0.25 - 0.5 mg 11/05/19 13:49 11/06/19 08:55 Dilaudid IV 11/19/19 13:48 0.5 mg Q1H PRN Administration Moderate/Severe Pain Dextrose/Sodium Chloride 1,000 mls @ 100 mls/hr 11/06/19 09:45 11/06/19 09:49 D5w And Nss IV 12/06/19 09:44 100 mls/hr .Q10H ELIZABETH Administration Insulin Aspart 0 units 11/06/19 06:00 11/06/19 06:17 Novolog Flexpen SC 12/06/19 05:59 Not Given Q6 ELIZABETH Magnesium Oxide 400 mg 11/06/19 09:00 11/06/19 09:07 Mag-Ox PO 12/06/19 08:59 400 mg QAM ELIZABETH Administration Metoprolol Succinate 50 mg 11/06/19 09:00 11/06/19 09:08 Toprol Xl PO 12/06/19 08:59 50 mg QAM ELIZABETH Administration Pantoprazole Sodium 40 mg 11/06/19 09:00 11/06/19 09:07 Protonix PO 12/06/19 08:59 40 mg QAM ELIZABETH Administration Psyllium Hydrophilic Mucilloid 1 pkt 11/06/19 09:00 11/06/19 08:39 Metamucil PO 12/06/19 08:59 Not Given DAILY ELIZABETH Protocol NPO Date Last Intake of Fluids: 11/06/19 Time Last Intake of Fluids: 18:00 Date Last Intake of Solids: 11/06/19 Time Last Intake of Solids: 18:00 Past Medical History Medical History Anasarca (Acute) Anemia (Acute) Arthritis (Acute) Asthma (Acute) Atrial fibrillation C. difficile colitis Chronic HFrEF (heart failure with reduced ejection fraction) Colon carcinoma metastatic to multiple sites (Chronic) Depression (Acute) Diabetes mellitus, type II (Acute) Dyslipidemia (Chronic) Dysphagia (Acute) Esophagitis (Resolved) GERD (gastroesophageal reflux disease) (Chronic) H/O: lung cancer Left s/p L VATS Hepatitis (Chronic) HTN (hypertension) (Chronic) Hypothyroidism (Inactive) MCFP (current) use of anticoagulants (Acute) Lung cancer (Chronic) Metastatic colon cancer in female lung mets Mitral regurgitation (Chronic) "echo 10/14/15: mild-mod mitral regurg " Moderate protein malnutrition (Inactive) Morbid obesity MRSA colonization (Acute) Multiple pulmonary nodules determined by computed tomography of lung (Chronic) Obesity (BMI 30.0-34.9) (Inactive) ANA (obstructive sleep apnea) (Chronic) Periprosthetic fracture around internal prosthetic knee joint (Acute) 01/16/2019. GETA. MAC 3, grade 2 view. 7.0ETT. Rectal pain (Acute) Past Family History Family History Sister Hypothyroidism Myocardial infarction Mother Hypothyroidism Father Myocardial infarction Other Coronary heart disease DM II (diabetes mellitus, type II), controlled Past Surgical History Surgical History H/O carpal tunnel repair H/O total hysterectomy History of cardiac cath History of closure of ileostomy History of colostomy reversal History of ear surgery Eustachian tube History of laparotomy History of lung surgery History of surgical procedure Venous access port placement S/P colectomy S/P debridement Abdomen S/P T&A (status post tonsillectomy and adenoidectomy) S/P total knee arthroplasty Bilateral Social History Smoking Status: Never smoker Do You Dip or Chew Tobacco: No Hx Alcohol Use: No Hx Substance Use: No substance use type: does not use Review of Systems denies fever/cough/ colds/ chest pain/ SOB/ ANA Constitutional: no fever and no chills Respiratory: no cough and no dyspnea denies ANA Cardiovascular: no chest pain and no dyspnea on exertion Physical Exam Vital Signs Last Vital Signs Temp 36.8 C 11/06/19 06:53 Pulse 81 11/06/19 09:30 Resp 19 11/06/19 06:53 BP 98/66 L 11/06/19 09:30 Pulse Ox 98 11/06/19 09:30 ENMT Mouth: + edentulous; no TMJ abnormality and no dentition abnormality Thyromental Distance: > or= 3.5 Finger Breadths Mallampati Class: II Neck neck extension not limited Respiratory normal respiratory effort; no respiratory distress Auscultation: lungs clear to auscultation bilaterally Cardiovascular Rate/Rhythm: regular rate and regular rhythm Neurologic moves all extremities Psychiatric Orientation: alert and oriented x 3 Testing Laboratory Results 11/06/19 05:54 11/06/19 05:54 PT 14.2 Seconds (9.0-12.0) H 11/06/19 05:54 INR 1.4 (0.9-1.1) H 11/06/19 05:54 Hemoglobin A1c 14.0 % (4.5-5.6) H 11/06/19 05:54 Urine Color Yellow 11/05/19 09:55 Urine Appearance Clear (Clear) 11/05/19 09:55 Urine pH 6.0 (4.5-7.5) 11/05/19 09:55 Ur Specific [place] 1.027 (1.000-1.030) 11/05/19 09:55 Urine Protein Negative (Negative) 11/05/19 09:55 Urine Glucose (UA) 3+ (Negative) H 11/05/19 09:55 Urine Ketones Negative (Negative) 11/05/19 09:55 Urine Nitrite Negative (Negative) 11/05/19 09:55 Ur Leukocyte Esterase Negative (Negative) 11/05/19 09:55 Blood Type A Negative 11/05/19 09:50 Antibody Screen NEGATIVE 11/05/19 09:50 11/06/19 11/06/19 11/06/19 05:57 03:59 03:45 POC Glucose 143 H 104 H 122 H 11/06/19 11/06/19 11/06/19 03:28 02:35 01:35 POC Glucose 106 H 155 H 133 H 11/06/19 11/05/19 00:25 23:28 POC Glucose 144 H 217 H
[2019-11-06] MEDS ORDERED: ATROPINE SULFATE 0.1 MG/ML 10ML SYR IV PRN (11:11)
[2019-11-06] MEDS ORDERED: ePHEDrine sulfate 50 MG/ML AMP IV PRN (11:11)
[2019-11-06] MEDS ORDERED: ONDANSETRON INJ 2 MG/ML 2 ML VIAL IV PRN (11:11)
[2019-11-06] MEDS ORDERED: HYDROmorphone INJ 1 MG/ML SYRINGE IV PRN (11:11)
[2019-11-06] MEDS ORDERED: BUPIVACAINE/EPINEPHRINE 0.5% MPF 1:200,000 10 ML VIAL ONE (11:34)
[2019-11-06] MEDS ORDERED: PHENYLEPHRINE HCL 10 MG/ML VIAL ONE (11:57)
[2019-11-06] MEDS ORDERED: CEFAZOLIN 250 MG/ML 1 GM VIAL ONE (11:57)
[2019-11-06] MEDS ORDERED: CEFAZOLIN 1000MG 1,000 MG/7.5 ML SYR IV ONE (12:58)
--- NOTE | 2019-11-06 13:17 | Operative Report ---
Post Operative Report Pre & Post Diagnosis Operation Date: 11/06/19 11:55 Pre-Op Diagnosis: Intertrochanteric fracture of left femur, status post open reduction internal fixation left distal femur periprosthetic fracture Post-Op Diagnosis: Intertrochanteric fracture of left femur, status post open reduction internal fixation left distal femur periprosthetic fracture I identified the patient and participated in the time-out.: Yes Procedure Operation Date: 11/06/19 11:55 Actual Procedures p Left Trochanteric Nailing(Left), removal of hardware deep distal femur- Riaz Rehman MD Surgeon Riaz Rehman MD [employer]t Welder Selvin Hampton PA-C Estimated Blood Loss 50 Findings Consistent with Post-Op Diagnosis Specimens None Drains None Anesthesia Type General Regional Complications none Disposition Accompanied Patient To Recovery: No Disposition: Recovery Room Indications The patient is a 53-year-old female with a fairly significant past medical histories. She had previously sustained a supracondylar distal femur periprosthetic fracture. That has not gone on to complete union. She presented with significantly elevated blood sugars in the 500s and hypokalemic and INR above 3. Those values have been corrected. She now presents for surgery. I discussed with the patient that we would be treating the hip fracture today and we would not be addressing the distal femoral nonunion in this surgical setting. Description of Procedure Risks benefits and alternatives of surgery including but not limited to infection, DVT, PE, pain, stiffness, need for surgery, damage to blood vessels, damage to nerves or risks of anesthesia, were discussed with the patient and her family and they wished to proceed. Patient was identified in the laterality was confirmed and marked. They received a preoperative antibiotic. The patient was transferred to the fracture table. The operative limb was place d in traction and the well leg was placed in a well leg varela that was well- padded. The arms were well-padded and placed out of the way of the surgical field. I confirmed reduction of the fracture with fluoroscopy with the patient's fracture table and made adjustments to fracture table alignment is necessary to reduce the fracture appropriately. The hip was then prepped and draped in the usual standard manner with ChloraPrep. I made a longitudinal incision proximal to the greater trochanter. I sharply incised through the skin and then used Bovie electrocautery to achieve hemostasis. I incised through the fascia and then bluntly dissected down to the tip of the greater trochanter. Under fluoroscopic guidance I placed a guide pin into the greater trochanter and ensured proper placement on both AP and lateral fluoroscopy views. Once I was satisfied with the position of the guide. I advanced this distally. I then overreamed with the 17 mm proximal reamer. I then advanced the guide brian distally to the plate distally and measured. It appeared that we would be able to overlap the tip of the nail with the proximal aspect of the plate without removing any of the screws. I then placed a Synthes trochanteric fixation nail into position. The size of the nail was and intermediate. Then I placed the guide arm onto the nail insertion device made a stab incision more distally and then placed the drill guide for the helical blade. I adjusted the position of the nail as necessary to ensure that the guidepin was center center in the femoral head. Unfortunately I was not able to advance the nail distally enough to ensure proper placement into the femoral head. I remove the nail after placing the guide brian back down. Under fluoroscopic guidance I made a stab incision over the proximal screw of the distal femoral locking plate. The screw was then removed. I advanced the guide brian and then reamed further distally. I then placed the intermediate nail back over the guide brian and advance it a bit more distally. Ideally I would like to have been able to advance it even a bit more than where we were. It was passed the tip of the plate and was just past where the previous screw had been. Unfortunately she had fairly significant anterior bowing to the femur and if I try to advance the nail even further I would likely have violated through the anterior cortex of the femur. The position of the helical blade was acceptable but ideally I would have been able to advance it just a little bit further distally. Once I was satisfied with the position of the pin advanced it to the appropriate position of the femoral head. I then measured and then reamed the lateral cortex and then reamed down into the femoral head. I then inserted a size [address] I then locked the set screw proximally and then compressed the fracture. Then through a stab incision I placed a interlocking screw [through the drill guide]. I confirmed hardware placement and maintenance of reduction on AP and lateral fluoroscopy views. Wounds were then thoroughly irrigated. The fascia was closed with interrupted #1 Vicryl suture. Subcutaneous tissues closed with in terrupted 2-0 Vicryl suture and the skin with livan. Sterile dressings applied. All needle and sponge counts were correct at the end of the procedure the patient was transferred to the PACU in stable condition without apparent complication. The PA-C was necessary for assistance with procedure for assistance in positioning, prepping, draping, retraction and closure. I attest to the content of the Intraoperative Record and any orders documented therein. Any exceptions are noted below.
--- NOTE | 2019-11-06 13:42 | Fluoroscopy Report ---
FL hip LT 2-3V CLINICAL HISTORY: LT TROCH NAIL COMPARISON STUDY: Left femur 11/05/2019. FLUOROSCOPY TIME: 2 minutes and 54 seconds. FINDINGS: 6 fluoroscopic spot images of the left femur were submitted. There is a left femoral proxim al intramedullary brian within interlocking femoral neck pin traversing the intertrochanteric fracture. The hardware appears intact. Alignment is near-anatomic. Evidence for a left total knee arthroplasty and a prior cortical plate and screws transfixing an old, healed distal left femoral fracture. IMPRESSION: Fluoroscopy provided for internal fixation of a left intertrochanteric hip fracture. ACT 112: Negative or not required by law. Electronically signed by: Anthony Davis M.D. 11/06/2019 1:40 PM
[2019-11-06] MEDS ORDERED: INSULIN ASPART PER UNIT ONE (14:06)
--- NOTE | 2019-11-06 14:35 | Anesthesiology Progress Note ---
Date of Service November 06, 2019 Anesthesia Post Procedure Vital Signs Vital Signs: Temp Pulse Pulse Pulse Resp BP BP 11/06/19 13:43 37.4 C 90 20 91/51 L 11/06/19 09:45 83 18 103/71 11/06/19 09:30 81 98/66 L 11/06/19 09:15 82 107/70 11/06/19 09:00 100 H 11/06/19 06:53 36.8 C 88 19 101/71 11/06/19 03:29 36.6 C 20 139/75 11/06/19 00:13 89 11/05/19 23:40 36.9 C 65 20 101/68 11/05/19 22:52 11/05/19 19:25 36.7 C 65 20 117/68 Pulse Ox Pulse Ox 11/06/19 13:43 100 11/06/19 09:45 97 11/06/19 09:30 98 11/06/19 09:15 98 11/06/19 09:00 11/06/19 06:53 100 11/06/19 03:29 100 11/06/19 00:13 11/05/19 23:40 100 11/05/19 22:52 98 11/05/19 19:25 100 Pain Intensity Left Hip: Pain Intensity: 8 Medial Chest: Pain Intensity: 8 Transfer of Care Handoff Completed per policy Notes Mental Status: alert / awake / arousable and participated in evaluation Patient Amnestic to Procedure: Yes Nausea / Vomiting: adequately controlled Pain: adequately controlled Airway Patency, RR, SpO2: stable & adequate BP & HR: stable & adequate Hydration State: stable & adequate Anesthetic Complications: no major complications apparent and Pt Satisfied with anesthetic care
[2019-11-06] MEDS ORDERED: NALOXONE HCL 0.4 MG/1 ML VIAL/CARP IV PRN (14:46)
[2019-11-06] MEDS ORDERED: INSULIN GLARGINE SOLOSTAR 100 UNITS/ML 3 ML PEN SC ONE (15:00)
[2019-11-06 15:16] LABS: INR 1.3 (0.9-1.1); Prothrombin Time 12.9 Seconds (9.0-12.0)
[2019-11-06] MEDS ORDERED: SODIUM CHLORIDE 0.9% 1000ML 1,000 ML IV SCH (15:30)
--- NOTE | 2019-11-06 16:40 | Hospitalist Progress Note ---
Date of Service November 06, 2019 Assessment & Plan (1) Fall: 53 yo F w/ metastatic colon cancer stage IV, lung cancer, A. fib, heart failure with reduced ejection fraction, IDDM type II, Asthma, ANA, Hypothyroid, GERD, presenting with left hip pain after fall on walker while on Coumadin. Jono ears mechanical due to her walker slipping out from under her, however certainly her electrolyte abnormalities and hyperglycemia may be contributory. Other thoughts include pathologic fracture from metastatic disease and osteoporosis potentially driven by elevated thyroid levels. (2) Intertrochanteric fracture of left femur: Was medically optimized for surgery with INR to 1.4, glucose 128 preoperatively - CT ap: L intertrochanteric fx. Femur XR: acute impacted and angulated intratrochanteric fx of left femur - cardiology consulted - [facility]OC consulted and s/p intertrochanteric nailing - Dr. Rehman - MRSA nasal swab - pain control with Dilaudid 0.25-0.5mg Q1H PRN - Hirsch catheter placed in ER - Vitamin D level 16.6 L (3) Acute hypokalemia: Unclear cause but patient has had past issues with compliance. - ?lasix use alone but patient reports dose not recently changed. - initially potassium 2.7 . - 5.2 this AM held potassium in fluid - will continue to monitor with AM BMP (4) Atrial flutter: Chronic atrial fibrillation however currently appears to be in flutter. Either way she appears rate controlled on her current medical regimen and digoxin level WNL. - She is anticoagulated with warfarin which was reversed for her operation. - Vit K 5mg IV given on admission. - Consulted cardiology (5) Chronic HFrEF (heart failure with reduced ejection fraction): Appears dry on exam rather than in acute exacerbation. She notes she takes lasix 40mg PO BID and spironolactone 12.5mg PO daily -> on hold while rehydrating with IV fluids. - 100 mL/hr D5NSS - Troponin elevated at 0.80, continue to evaluate for symptoms - continue to evaluated fluid status, soft blood pressures currently - if blood pressures drop w/ maps below 65 mmHg consider small bolus of 250 mL and reevaluate (6) Mitral regurgitation: - as above; makes it more likely she will end up having some pulmonary edema as we attempt to rehydrate her. (7) Colorectal cancer, stage IV: Hold further chemotherapy (capecitabine) at this time to enable fracture healing. - Concerning that fracture may be pathological. (8) Diabetes mellitus, type II: Hyperglycemia and ketones noted on admission, no anion gap however so suspect she lives with a very elevated glucose and patient does note hypoglycemic symptoms when glucose < 200 therefore she aims to keep her glucose higher. - pH 7.44 on admission therefore not in DKA. - Appreciate glycemic control management - HbA1C 14 (9) Asthma: - Continue Breo Ellipta (10) ANA (obstructive sleep apnea): Historical diagnosis although she still wears CPAP at home this has not been retested and she has lost considerable amounts of weight due to her cancer. - Will keep on continuous pulse Ox overnight and if desaturating can order CPAP here otherwise patient may use her own if a family member brings it in. (11) Hypothyroidism: Patient on enormous dose of synthroid and looking over the pior notes inpatient an outpatient she has been taking these doses since 2017. It was unclear from pharmacy or review of outpatient notes why she is on these high doses. Patient had reported to Dr. Weems in 2019 that she had a genetic issue that she shares with her brother. Other possibilities include some type of malabsorption or possibly non-compliance and increasing doses when she wasn't taking it. - TSH 0.087 FT4>8 - will seek to get any other records of corroborating information from patient on reason for high doses. (12) GERD (gastroesophageal reflux disease): Switch omeprazole for pantoprazole as per hospital formulary (13) DVT prophylaxis: Initially INR 3.0. Reversed with Vit K 5mg IV. - INR 1.4 prior to surgery - PTINR daily (14) Discharge planning issues: PT/OT post operatively (not currently ordered as unclear weight bearing status at present. - Possible need for placement on discharge. Supervising Physician Co-Signing Physician Notes I personally examined the patient and verified all aguirre points of history and exam, discussed case, and agree with decision making with Dr Basurto. seen post op - groggy and very limited historian but no acute complaints, doesn't feel lightheaded, no significant pain no chest pain. Vitals noted in general she awakens but is very tired and falls asleep easily but is in no distress. HEENT normocephalic atraumatic mucous membranes moist to may be slightly dry. No noted JVD. Cardio is irregularly irregular but rate controlled without rubs murmurs gallops lungs are difficult exam but seem to be clear, no accessory muscle use no respiratory distress. Abdomen is soft. Extremities show no cyanosis. Neuro shows no focal deficits. Hip fracturepresumed osteoporotic (concern also for pathologic related to the malignancy but given that there was no metastatic deposit noted on the CT scans that did show the fracture, this seems less likely). Now status post surgery. PT/OT eval and treat, supportive care. Secondary risk reduction. Hypothyroidismnow markedly hyperthyroid. It appears she has had significant ups and downs with her TSHs over the years, and 1 of my colleagues will take care of her before was able to discern that she believes she has some type of genetic disorder there is a sister has as well, but there was also concern about compliance at that time. Now she certainly has a suppressed TSH with an undetectably high free T4, suggesting that even if she has some sort of genetic disorder compromising her sensitivity to levothyroxine she is overtreated at this time. Certainly that would be a major risk for osteoporosis. Hold Synthroid for now, continue to follow, it appears that her PCPs office is prescribing the Synthroid but she has seen [facility] endocrinology beforewe will need to try to obtain records. For now hold Synthroid and follow, likely will need to resume at a lower dose, but it is unclear exactly what this will be. Uncontrolled type 2 diabetescontinue insulin management for now in the perioperative time. Check A1c, once she is more alert we will need to educate on the importance of glycemic control. A. fibfortunately in spite of her market hyperthyroidism she is not tachycardic. Rate is controlled, anticoagulation temporarily reversed as far as it relates to the surgery. We can resume Coumadin hopefully by tomorrow. DVT prophylaxisoverall will be anticoagulated. Chronic systolic CHF (otherwise known as HFrEF) currently appearing on the dry side of euvolemic. Follow closely, she was briefly a little bit low in blood pressure although still perfusing immediately perioperative, but this has improved with time. If her blood pressures were to worsen/if the need were to arise we could manage with small fluid boluses with immediate reassessment thereafter. Otherwise as above. Subjective Joana Moran was in a lot of pain this morning. She described it as 10/10 and in her left leg. She also brought up that she had fullness in her belly, but was passing gas without trouble. Review of Systems Constitutional: no fever and no chills Respiratory: no cough and no sputum production denies shortness of breath Cardiovascular: no chest pain and no palpitations Gastrointestinal: no nausea and no vomiting Neurologic: no headache(s) Physical Exam Constitutional: + thin grimace on face, less alert Eyes: PERRL and EOM intact bilaterally ENMT: external ear and nose normal, oropharynx normal Neck: trachea midline Respiratory: normal respiratory effort, lungs clear to auscultation Cardiovascular: Rate/Rhythm: regular rate and regular rhythm Heart Sounds: no gallop and no cardiac rub Extremities: no edema Gastrointestinal (Abdomen): slightly distended, soft, non tender, no guarding or rigidity appreciated Skin: no rashes, warm and dry Psychiatric: Affect: + flat affect Results & Data ([facility]) Vital Signs (Past 12 Hours) Vital Signs Temp Pulse Pulse Pulse Resp BP Pulse Ox 11/06/19 16:00 36.6 C 70 16 95/68 L 100 11/06/19 15:46 36.6 C 64 16 92/64 L 100 11/06/19 15:30 36.7 C 76 16 93/67 L 98 11/06/19 15:10 37.6 C H 77 18 87/52 L 98 11/06/19 14:48 37.6 C H 98 H 12 115/79 11/06/19 14:30 87 18 86/62 L 99 11/06/19 14:20 37.4 C 90 18 91/62 L 98 11/06/19 14:10 94 H 16 89/62 L 93 11/06/19 14:00 93 H 14 91/66 L 100 11/06/19 13:50 92 H 16 92/58 L 100 11/06/19 13:43 37.4 C 90 20 91/51 L 100 11/06/19 09:45 83 18 103/71 97 11/06/19 09:30 81 98/66 L 98 11/06/19 09:15 82 107/70 98 11/06/19 09:00 100 H 11/06/19 06:53 36.8 C 88 19 101/71 100 Resident Activity Tracking Resident Involvement: Resident Care Provided Care Provided: Adult Hospital Medicine (1) Diabetes mellitus, type II Diabetes mellitus complication status: with hyperglycemia 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 Qualified Code(s): E11.65 - Type 2 diabetes mellitus with hyperglycemia; Z79.4 - snf (current) use of insulin (2) Atrial flutter Atrial flutter type: typical Qualified Code(s): I48.3 - Typical atrial flutter (3) Hypothyroidism Hypothyroidism type: acquired Qualified Code(s): E03.9 - Hypothyroidism, unspecified (4) Mitral regurgitation Cardiac valve disease etiology: nonrheumatic Qualified Code(s): I34.0 - Nonrheumatic mitral (valve) insufficiency (5) GERD (gastroesophageal reflux disease) Esophagitis presence: without esophagitis Qualified Code(s): K21.9 - Gastro- esophageal reflux disease without esophagitis (6) Fall Encounter type: initial encounter Qualified Code(s): W19.XXXA - Unspecified fall, initial encounter (7) Asthma Asthma complication type: uncomplicated Asthma persistence: intermittent Asthma severity: unspecified severity Qualified Code(s): J45.20 - Mild intermittent asthma, uncomplicated (8) Intertrochanteric fracture of left femur Encounter type: initial encounter Fracture alignment: displaced Fracture type: closed Qualified Code(s): S72.142A - Displaced intertrochanteric fracture of left femur, initial encounter for closed fracture
[2019-11-06] MEDS ORDERED: DOCUSATE SODIUM 100 MG CAP PO PRN (16:41)
--- NOTE | 2019-11-06 17:39 | Billing Data ---
Date of Service November 06, 2019 Coding Level of Care Code 58003 Subseq Hosp Care Lvl 3
[2019-11-06] MEDS ORDERED: SODIUM CHLORIDE 0.9% 1000ML 250 ML IV ONE ×2 (19:30→20:37)
[2019-11-06 21:05] LABS: Basophils # (auto) 0.01 K/uL (0-0.2); Basophils % (auto) 0.1 %; Eosinophils # (auto) 0.12 K/uL (0-0.5); Eosinophils % (auto) 0.8 %; Hematocrit (blood only) 29.7 % (37-47); Hemoglobin 10.3 g/dL (12.0-16.0); Immature Granulocytes # (auto) 0.11 K/uL (0.00-0.02); Immature Granulocytes % (auto) 0.7 %; Lymphocytes % (auto) 16.8 %; Mean Corpuscular Hemoglobin 34.9 pg (25-34); Mean Corpuscular Volume 100.7 fL (80-100); Mean Platelet Volume 8.8 fL (7.4-10.4); Monocytes # (auto) 1.41 K/uL (0.11-0.59); Monocytes % (auto) 9.5 %; Neutrophils % (auto) 72.1 %; Nucleated RBC # (auto) 0.03 K/uL (0-0); Nucleated RBC % (auto) 0.2 %; Platelet Count 177 K/uL (130-400); RDW Coefficient of Variation 16.8 % (11.5-14.5); RDW Standard Deviation 60.9 fL (36.4-46.3); Red Blood Count 2.95 M/uL (4.2-5.4); White Blood Count 14.85 K/uL (4.8-10.8)
[2019-11-06 21:34] LABS: Albumin Level 2.1 gm/dl (3.4-5.0); BUN Creatinine Ratio 22.9 (10-20); Calcium 8.6 mg/dl (8.5-10.1); Creatinine Clr Calc Pharmacy 72.4 ml/min; Est GFR (African American) 113.6; Potassium 5.5 mmol/L (3.5-5.1)
[2019-11-06 21:35] LABS: Mean Corpuscular Hgb Conc 34.7 g/dL (32-36)
[2019-11-06 21:37] LABS: Albumin Globulin Ratio 0.7 (0.9-2); Bilirubin,Total 1.8 mg/dl (0.2-1); Globulin 3.1 gm/dl (2.5-4.0); Total Protein 5.2 gm/dl (6.4-8.2)
[2019-11-06] MEDS ORDERED: ALBUTEROL 0.5% NEB SOLN 2.5 MG/0.5 ML VIAL NEB STA (21:37)
[2019-11-06] MEDS ORDERED: DEXTROSE 50% 50 ML SYRINGE IV STA (21:37)
[2019-11-06] MEDS ORDERED: CALCIUM GLUCONATE 10% 1,000 MG in SODIUM CHLORIDE 0.9% 50 ML IV STA (21:37)
[2019-11-06] MEDS ORDERED: INSULIN HUMAN REGULAR PER UNIT 10 UNITS in SYRINGE 9.9 ML IV STA (21:37)
[2019-11-06] MEDS: CEFAZOLIN 1000MG 1,000 MG/7.5 ML SYR IV SCH (22:59)
[2019-11-07] MEDS: NORMOSOL-R 1,000 ML IV SCH ×2 (00:24→08:11)
[2019-11-07] MEDS: INSULIN ASPART 100 UNITS/ML 3 ML PEN SC SCH ×6 (00:43→20:35)
[2019-11-07] MEDS: ACETAMINOPHEN 1,000 MG/100 ML VIAL IV PRN (01:00)
[2019-11-07] MEDS ORDERED: ACETAMINOPHEN 1,000 MG/100 ML VIAL IV PRN (01:01)
[2019-11-07] MEDS: CEFAZOLIN 1000MG 1,000 MG/7.5 ML SYR IV SCH (04:33)
[2019-11-07] MEDS ORDERED: NORMOSOL-R 250 ML IV ONE (04:56)
[2019-11-07 06:49] LABS: Basophils # (auto) 0.01 K/uL (0-0.2); Basophils % (auto) 0.1 %; Eosinophils # (auto) 0.05 K/uL (0-0.5); Eosinophils % (auto) 0.3 %; Hematocrit (blood only) 30.2 % (37-47); Hemoglobin 10.5 g/dL (12.0-16.0); Immature Granulocytes # (auto) 0.11 K/uL (0.00-0.02); Immature Granulocytes % (auto) 0.7 %; Lymphocytes # (auto) 2.17 K/uL (1.2-3.4); Mean Corpuscular Hemoglobin 35.5 pg (25-34); Mean Corpuscular Hgb Conc 34.8 g/dL (32-36); Mean Platelet Volume 9.4 fL (7.4-10.4); Monocytes % (auto) 10.2 %; Neutrophils % (auto) 75.7 %; Platelet Count 156 K/uL (130-400); RDW Standard Deviation 62.9 fL (36.4-46.3); Red Blood Count 2.96 M/uL (4.2-5.4); White Blood Count 16.64 K/uL (4.8-10.8)
--- NOTE | 2019-11-07 07:07 | Orthopedic Progress Note ---
Date of Service November 07, 2019 Assessment & Plan (1) Intertrochanteric fracture of left femur: POD#1 left trochanteric nailing -Pain management -PT/OT-Patient may be WBAT for left hip fracture -DVT prophylaxis-SCDs, chronically on warfarin, okay to resume anticoagulation Subjective Patient is POD#1 left trochanteric nailing. She is seen resting in bed this morning. She has complaints of soreness. No chest pain, sob, dizziness, n/v/d. Review of Systems Review of Systems: All systems reviewed & are unremarkable except as noted in HPI & below Physical Exam Physical Exam: Resting in bed, no acute distress. Dressing to left hip is c/d/i. Calves are soft and non tender. Distally sensation and n/v status intact. Toes are mobile. Constitutional: + ill appearing; no acute distress Results & Data ([facility]) Vital Signs (Past 12 Hours) Vital Signs Temp Pulse Pulse Pulse Resp BP Pulse Ox 11/07/19 06:23 78 98/67 L 98 11/07/19 05:29 70 93/63 L 11/07/19 04:30 78 82/57 L 11/07/19 03:29 37.2 C 79 20 74/49 L 99 11/07/19 03:21 84 82/53 L 11/07/19 02:53 74 11/07/19 02:30 89 73/44 L 11/07/19 01:29 36.7 C 73 87/56 L 11/07/19 01:18 76 101/68 11/07/19 00:53 99/63 L 11/07/19 00:33 92/63 L 11/07/19 00:18 91/60 L 11/06/19 23:48 99/67 L 11/06/19 23:33 91/60 L 11/06/19 23:25 99/66 L 11/06/19 23:21 39.3 C H 80 18 99/66 L 100 11/06/19 22:28 79 24 99 Laboratory Results H & H 11/05/19 11/06/19 11/06/19 Range/Units 09:38 05:54 20:56 Hgb 12.9 11.3 L 10.3 L (12.0-16.0) g/dL Hct 34.0 L 31.4 L 29.7 L (37-47) % 11/07/19 Range/Units 06:41 Hgb 10.5 L (12.0-16.0) g/dL Hct 30.2 L (37-47) % Coagulation 11/05/19 11/06/19 11/06/19 Range/Units 09:38 00:19 05:54 INR 3.0 H 1.6 H 1.4 H (0.9-1.1) 11/06/19 Range/Units 14:54 INR 1.3 H (0.9-1.1) (1) Intertrochanteric fracture of left femur Encounter type: initial encounter Fracture type: closed Fracture alignment: displaced Qualified Code(s): S72.142A - Displaced intertrochanteric fracture of left femur, initial encounter for closed fracture
[2019-11-07 07:28] LABS: Calcium 8.7 mg/dl (8.5-10.1); Creatinine Clr Calc Pharmacy 78.1 ml/min; Est GFR (African American) 116.4; Est GFR (Non-African American) 100.5; Potassium 5.1 mmol/L (3.5-5.1)
[2019-11-07] MEDS: DIGOXIN 0.125 MG TAB PO SCH (08:15)
[2019-11-07] MEDS: FLUTICASONE/VILANTEROL 100/25MCG 14 PUFFS/INHALER INH SCH (08:15)
[2019-11-07] MEDS: PSYLLIUM 58.6% POWDER PACKET PO SCH (08:16)
[2019-11-07] MEDS: MAGNESIUM OXIDE 400 MG TAB PO SCH (08:16)
[2019-11-07 08:17] LABS: Folate (Folic Acid) 4.93 ng/ml (>5.38)
[2019-11-07] MEDS: METOPROLOL SUCC 50MG EXT REL TAB PO SCH (08:17)
[2019-11-07] MEDS: PANTOprazole 40 MG TAB PO SCH (08:17)
--- NOTE | 2019-11-07 08:38 | Anesthesiology Progress Note ---
Date of Service November 07, 2019 Anesthesia Post Procedure Vital Signs Vital Signs: Temp Pulse Pulse Pulse Resp BP Pulse Ox 11/07/19 08:15 74 11/07/19 07:17 36.7 C 66 20 93/67 L 100 11/07/19 06:23 78 98/67 L 98 11/07/19 05:29 70 93/63 L 11/07/19 04:30 78 82/57 L 11/07/19 03:29 37.2 C 79 20 74/49 L 99 11/07/19 03:21 84 82/53 L 11/07/19 02:53 74 11/07/19 02:30 89 73/44 L 11/07/19 01:29 36.7 C 73 87/56 L 11/07/19 01:18 76 101/68 11/07/19 00:53 99/63 L 11/07/19 00:33 92/63 L 11/07/19 00:18 91/60 L 11/06/19 23:48 99/67 L 11/06/19 23:33 91/60 L 11/06/19 23:25 99/66 L 11/06/19 23:21 39.3 C H 80 18 99/66 L 100 11/06/19 22:28 79 24 99 11/06/19 17:36 36.7 C 70 16 97/69 L 100 11/06/19 16:30 36.6 C 68 16 102/70 98 11/06/19 16:00 36.6 C 70 16 95/68 L 100 11/06/19 15:46 36.6 C 64 16 92/64 L 100 11/06/19 15:30 36.7 C 76 16 93/67 L 98 11/06/19 15:10 37.6 C H 77 18 87/52 L 98 11/06/19 14:48 37.6 C H 98 H 12 115/79 11/06/19 14:30 87 18 86/62 L 99 11/06/19 14:20 37.4 C 90 18 91/62 L 98 11/06/19 14:10 94 H 16 89/62 L 93 11/06/19 14:00 93 H 14 91/66 L 100 11/06/19 13:50 92 H 16 92/58 L 100 11/06/19 13:43 37.4 C 90 20 91/51 L 100 11/06/19 09:45 83 18 103/71 97 11/06/19 09:30 81 98/66 L 98 11/06/19 09:15 82 107/70 98 11/06/19 09:00 100 H Pain Intensity Left Hip: Pain Intensity: 8 Medial Chest: Pain Intensity: 8 Notes Mental Status: alert / awake / arousable and participated in evaluation Patient Amnestic to Procedure: Yes Nausea / Vomiting: adequately controlled Pain: adequately controlled Airway Patency, RR, SpO2: stable & adequate BP & HR: stable & adequate Hydration State: stable & adequate Anesthetic Complications: no major complications apparent and Pt Satisfied with anesthetic care
[2019-11-07] MEDS: FOLIC ACID 1 MG TAB PO SCH (10:00)
[2019-11-07] MEDS: ERGOCALCIFEROL 50,000 UNITS CAP PO SCH (10:00)
[2019-11-07] MEDS: CHOLECALCIFEROL 1,000 UNITS 25 MCG TAB PO SCH (10:00)
[2019-11-07] MEDS ORDERED: HYDROmorphone INJ 0.5 MG/0.5 ML SYR IV STA (11:55)
[2019-11-07] MEDS: HYDROmorphone INJ 0.5 MG/0.5 ML SYR IV PRN ×2 (12:08→17:02)
--- NOTE | 2019-11-07 12:22 | XRay Report ---
KUB HISTORY: Acute generalized abdominal pain abd pain COMPARISON: CT abdomen pelvis 11/05/2019 FINDINGS: The bowel gas pattern is non-obstructive. Surgical suture material of the lower abdomen and pelvis redemonstrated. There is no organomegaly. No renal calculi. No ureteral calculi. No pneumope ritoneum or pneumatosis. Intratrochanteric nail with medullary brian of the left femur fixating the acu te intertrochanteric fracture. Lucent lesions of the right acetabulum redemonstrated. Soft tissue swe lling of the left hip redemonstrated. IMPRESSION: Nonobstructive bowel gas pattern. ACT 112: Negative or not required by law. The above report was generated using voice recognition software. It may contain grammatical, syntax o r spelling errors. Electronically signed by: Jayjay Crowder M.D. 11/07/2019 12:21 PM
--- NOTE | 2019-11-07 12:35 | Cardiology Consultation ---
Date of Consultation November 07, 2019 Assessment & Plan (1) Intertrochanteric fracture of left femur: (2) A-fib: (3) Colon carcinoma metastatic to multiple sites: (4) Chronic HFrEF (heart failure with reduced ejection fraction): The patient is currently hemodynamically stable and without cardiac issues. I would continue your current management. History of Present Illness Attending Physician: Lane Roman DO History of Present Illness This is a 53-year-old female with multiple medical problems as outlined below. She had a mechanical fall fracturing her hip. We were asked for cardiac risk assessment yesterday but she was already in the OR before we saw her. She had an uneventful surgery and is currently recovering. She has no current cardiac complaints but is under the effects of pain medication and sedation. Problem List: 1. Chronic atrial fibrillation 2. Anticoagulation with coumadin, managed by Lorenzo Vasquez 3. Angiographically normal coronary arteries by catheterization in November 2008 ([facility]) 4. Biventricular heart failure. 5. Diastolic dysfunction 6. Varying degrees of mitral regurgitation 7. Adenocarcinoma of the colon with mets to the lung, status post LLL lung resection, chemotherapy 8. Recurrent GI bleeding 9. Morbid obesity 10. Obstructive sleep apnea, CPAP therapy. 11. Hypertension 12. Dyslipidemia 13. Type II diabetes mellitus. 14. Hypothyroidism. 15. Asthma 16. GERD Allergies Allergy/AdvReac Type Severity Reaction Status Date / Time daptomycin Allergy Severe SHORTNESS Verified 11/06/19 09:43 OF BREATH Iodinated Contrast Media Allergy Severe Anaphylaxis Verified 11/06/19 09:43 bee venom protein (honey bee) Allergy Intermediate HIVES Verified 11/06/19 09:43 clindamycin Allergy Intermediate HIVES Verified 11/06/19 09:43 Sulfa (Sulfonamide Allergy Intermediate BACTRIM-HIV Verified 11/06/19 09:43 Antibiotics) ES trimethoprim Allergy Intermediate HIVES Verified 11/06/19 09:43 vancomycin Allergy Intermediate RASH Verified 11/06/19 09:43 dulaglutide AdvReac Severe BRAND-TRULICITY, Verified 11/06/19 09:43 SEVERE GI UPSET, CONSTIPATION Home Medications Home Medications Medication Instructions Recorded Confirmed Type Breo Ellipta 1 inh INHALATION DAILY MDD 1 dose 06/11/18 11/05/19 History in 24 hours albuterol sulfate [Ventolin HFA] 2 - 4 puff INHALATION Q6H PRN 06/11/18 11/05/19 History insulin aspart U-100 [Novolog 1 sliding scale dose SUBCUT TID 06/11/18 11/05/19 History PenFill U-100 Insulin] magnesium oxide 400 mg PO QAM 06/11/18 11/05/19 History digoxin 125 mcg (0.125 mg) tablet 0.125 mg PO QAM 11/28/18 11/05/19 History acetaminophen 500 mg PO Q4 PRN 01/15/19 11/05/19 History furosemide 40 mg PO UD 01/15/19 11/05/19 History psyllium husk [Fiber-Caps 0.52 g PO DAILY 01/15/19 11/05/19 History (psyllium husk)] spironolactone 12.5 mg PO DAILY 01/15/19 11/05/19 History capecitabine 500 mg tablet 1,500 mg PO BID tab 05/28/19 11/05/19 History prochlorperazine maleate 10 mg 10 mg PO Q6H PRN 05/28/19 11/05/19 History tablet insulin glargine 100 unit/mL (3 45 units SUBCUT HS #0 ml 06/17/19 11/05/19 Rx mL) subcutaneous pen Oxygen Home #1 ea 07/01/19 10/22/19 History docusate sodium 100 mg capsule 100 mg PO Q2D cap 07/01/19 11/05/19 History diphenhydramine HCl 25 mg capsule 25 mg PO Q8H PRN 07/02/19 11/05/19 History ferrous sulfate 325 mg (65 mg 325 mg PO QAM tab 07/02/19 11/05/19 History iron) tablet metoprolol succinate 25 mg 50 mg PO QAM tab 07/02/19 11/05/19 History tablet,extended release 24 hr oxycodone 5 mg capsule 5 mg PO DAILY 07/02/19 11/05/19 History sucralfate 1 gram tablet 1 gm PO ONCE PRN tab 07/02/19 11/05/19 History trazodone 50 mg tablet 50 mg PO DAILY PRN 07/02/19 11/05/19 History lactase [Lactaid] 9,000 unit PO AC PRN 08/26/19 11/05/19 History potassium chloride 20 meq PO QAM 08/26/19 11/05/19 History simethicone 125 mg PO DAILY PRN 08/26/19 11/05/19 History blood-glucose meter #1 ea 09/18/19 10/22/19 Rx lancets #400 ea 09/18/19 10/22/19 Rx blood sugar diagnostic #400 ea 09/26/19 10/22/19 Rx levothyroxine 1,200 mcg PO QAM 10/07/19 11/05/19 History omeprazole 40 mg PO DAILY 10/07/19 11/05/19 History warfarin 1 mg tablet 2 mg PO DAILY tab 10/13/19 11/05/19 History Patient History Medical History Anasarca (Acute) Anemia (Acute) Arthritis (Acute) Asthma (Acute) Atrial fibrillation C. 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 GETA. MAC 3, grade 2 view. 7.0ETT. Rectal pain (Acute) Surgical History H/O carpal tunnel repair H/O total hysterectomy History of cardiac cath History of closure of ileostomy History of colostomy reversal History of ear surgery Eustachian tube History of laparotomy History of lung surgery History of surgical procedure Venous access port placement S/P colectomy S/P debridement Abdomen S/P T&A (status post tonsillectomy and adenoidectomy) S/P total knee arthroplasty Bilateral Family History Sister Hypothyroidism Myocardial infarction Mother Hypothyroidism Father Myocardial infarction Other Coronary heart disease DM II (diabetes mellitus, type II), controlled Social History Preferred Language: Portuguese Communication Ability: Effective Network Support Specialist Required: No Beliefs That Will Affect Care: None marital status: Current Living Situation: Spouse current occupational status: unemployed and disabled Other Information That Helps Us Care for You: No Feels Safe at Home: Yes Safety Concerns: Feels Safe At This Time Smoking Status: Never smoker Do You Dip or Chew Tobacco: No ; Second Hand Exposure: No ; Tobacco Cessation Education Requested by Patient: No Hx Alcohol Use: No Hx Substance Use: No caffeine: Yes Dental Care, Regularly: No Physical Activity Frequency: Does not Exercise Seatbelt Use: never Sunscreen Use: Yes Review of Systems Review of Systems: All systems reviewed & are unremarkable except as noted in HPI & below and Unobtainable due to cognitive status Physical Exam Physical Exam: General: no acute distress and stated age Head: normocephalic, no masses, lesions, tenderness or abnormalities Eyes: conjunctiva are pink and non-injected, sclera clear Neck: supple, no adenopathy, no bruits, normal jugular venous pulse, no hepatojugular reflux Chest: normal shape and normal respiratory effort Lungs: clear to auscultation and percussion Cardiac Exam: - regular rate & rhythm, no murmurs gallops or rubs - normal S1, normal S2 Pulses: 2(+) throughout Abdomen: abdomen soft, non-tender, no abnormal masses and no hepatosplenomegaly Musculoskeletal: no gait disturbance, no joint inflammation, no deforming arthritis Extremities: no edema and no cyanosis Neuro: grossly normal exam Results & Data Vital Signs (Past 12 Hours) Vital Signs Temp Pulse Pulse Pulse Resp BP Pulse Ox 11/07/19 11:20 36.3 C L 62 18 94/54 L 100 11/07/19 08:15 74 11/07/19 07:17 36.7 C 66 20 93/67 L 100 11/07/19 06:23 78 98/67 L 98 11/07/19 05:29 70 93/63 L 11/07/19 04:30 78 82/57 L 11/07/19 03:29 37.2 C 79 20 74/49 L 99 11/07/19 03:21 84 82/53 L 11/07/19 02:53 74 11/07/19 02:30 89 73/44 L 11/07/19 01:29 36.7 C 73 87/56 L 11/07/19 01:18 76 101/68 11/07/19 00:53 99/63 L Laboratory Results Laboratory Results - last 24 hr 11/06/19 11/06/19 11/06/19 13:45 14:54 16:08 WBC RBC Hgb Hct MCV MCH MCHC RDW Std Deviation RDW Coeff of Stanley Plt Count MPV Immature Gran % (Auto) Neut % (Auto) Lymph % (Auto) Brewster % (Auto) Eos % (Auto) Baso % (Auto) Immature Gran # (Auto) Neut # (Auto) Lymph # (Auto) Brewster # (Auto) Eos # (Auto) Baso # (Auto) Absolute Nucleated RBC Nucleated RBC % (auto) PT 12.9 H INR 1.3 H Sodium Potassium Chloride Carbon Dioxide Anion Gap BUN Creatinine Est Cr Clr Drug Dosing Est GFR ( Amer) Est GFR (Non-Af Amer) BUN/Creatinine Ratio Glucose POC Glucose 292 H 216 H Calcium Total Bilirubin AST ALT Alkaline Phosphatase Total Protein Albumin Globulin Albumin/Globulin Ratio Vitamin B12 Folate 11/06/19 11/06/19 11/06/19 19:45 20:56 20:56 WBC 14.85 H RBC 2.95 L Hgb 10.3 L Hct 29.7 L MCV 100.7 H MCH 34.9 H MCHC 34.7 RDW Std Deviation 60.9 H RDW Coeff of Stanley 16.8 H Plt Count 177 MPV 8.8 Immature Gran % (Auto) 0.7 Neut % (Auto) 72.1 Lymph % (Auto) 16.8 Brewster % (Auto) 9.5 Eos % (Auto) 0.8 Baso % (Auto) 0.1 Immature Gran # (Auto) 0.11 H Neut # (Auto) 10.70 H Lymph # (Auto) 2.50 Brewster # (Auto) 1.41 H Eos # (Auto) 0.12 Baso # (Auto) 0.01 Absolute Nucleated RBC 0.03 H Nucleated RBC % (auto) 0.2 PT INR Sodium 140 Potassium 5.5 H Chloride 110 H Carbon Dioxide 27 Anion Gap 3.0 BUN 16 Creatinine 0.69 Est Cr Clr Drug Dosing 72.4 Est GFR ( Amer) 113.6 Est GFR (Non-Af Amer) 98.0 BUN/Creatinine Ratio 22.9 H Glucose 183 H POC Glucose 212 H Calcium 8.6 Total Bilirubin 1.8 H AST 26 ALT 12 Alkaline Phosphatase 127 H Total Protein 5.2 L Albumin 2.1 L Globulin 3.1 Albumin/Globulin Ratio 0.7 L Vitamin B12 Folate 11/07/19 11/07/19 11/07/19 00:43 04:26 06:41 WBC 16.64 H RBC 2.96 L Hgb 10.5 L Hct 30.2 L MCV 102.0 H MCH 35.5 H MCHC 34.8 RDW Std Deviation 62.9 H RDW Coeff of Stanley 17.0 H Plt Count 156 MPV 9.4 Immature Gran % (Auto) 0.7 Neut % (Auto) 75.7 Lymph % (Auto) 13.0 Brewster % (Auto) 10.2 Eos % (Auto) 0.3 Baso % (Auto) 0.1 Immature Gran # (Auto) 0.11 H Neut # (Auto) 12.60 H Lymph # (Auto) 2.17 Brewster # (Auto) 1.70 H Eos # (Auto) 0.05 Baso # (Auto) 0.01 Absolute Nucleated RBC Nucleated RBC % (auto) PT INR Sodium Potassium Chloride Carbon Dioxide Anion Gap BUN Creatinine Est Cr Clr Drug Dosing Est GFR ( Amer) Est GFR (Non-Af Amer) BUN/Creatinine Ratio Glucose POC Glucose 101 H 108 H Calcium Total Bilirubin AST ALT Alkaline Phosphatase Total Protein Albumin Globulin Albumin/Globulin Ratio Vitamin B12 Folate 11/07/19 11/07/19 11/07/19 06:41 06:41 07:19 WBC RBC Hgb Hct MCV MCH MCHC RDW Std Deviation RDW Coeff of Stanley Plt Count MPV Immature Gran % (Auto) Neut % (Auto) Lymph % (Auto) Brewster % (Auto) Eos % (Auto) Baso % (Auto) Immature Gran # (Auto) Neut # (Auto) Lymph # (Auto) Brewster # (Auto) Eos # (Auto) Baso # (Auto) Absolute Nucleated RBC Nucleated RBC % (auto) PT INR Sodium 141 Potassium 5.1 Chloride 110 H Carbon Dioxide 26 Anion Gap 5.0 BUN 17 Creatinine 0.64 Est Cr Clr Drug Dosing 78.1 Est GFR ( Amer) 116.4 Est GFR (Non-Af Amer) 100.5 BUN/Creatinine Ratio 26.0 H Glucose 106 H POC Glucose 114 H Calcium 8.7 Total Bilirubin AST ALT Alkaline Phosphatase Total Protein Albumin Globulin Albumin/Globulin Ratio Vitamin B12 441 Folate 4.93 L 11/07/19 11:21 WBC RBC Hgb Hct MCV MCH MCHC RDW Std Deviation RDW Coeff of Stanley Plt Count MPV Immature Gran % (Auto) Neut % (Auto) Lymph % (Auto) Brewster % (Auto) Eos % (Auto) Baso % (Auto) Immature Gran # (Auto) Neut # (Auto) Lymph # (Auto) Brewster # (Auto) Eos # (Auto) Baso # (Auto) Absolute Nucleated RBC Nucleated RBC % (auto) PT INR Sodium Potassium Chloride Carbon Dioxide Anion Gap BUN Creatinine Est Cr Clr Drug Dosing Est GFR ( Amer) Est GFR (Non-Af Amer) BUN/Creatinine Ratio Glucose POC Glucose 176 H Calcium Total Bilirubin AST ALT Alkaline Phosphatase Total Protein Albumin Globulin Albumin/Globulin Ratio Vitamin B12 Folate Medications Administered Current Inpatient Medications Acetaminophen (Tylenol) 650 mg PO Q6H PRN PRN Reason: MILD Pain (Scale 1,2,3) Stop: 12/05/19 14:33 Albuterol (Ventolin Hfa) 2 - 4 puffs INH Q6H PRN PRN Reason: Wheezing Stop: 12/05/19 14:33 Bisacodyl (Dulcolax) 10 mg ND DAILY PRN PRN Reason: Constipation Stop: 12/05/19 14:33 Digoxin (Lanoxin) 0.125 mg PO QAM [facility] Stop: 12/06/19 08:59 Last Admin: 11/07/19 08:15 Dose: 0.125 mg Documented by: Docusate Sodium (Colace) 100 mg PO BID PRN PRN Reason: Constipation Stop: 12/06/19 08:59 Ergocalciferol (Vitamin D2) 50,000 units PO Fr@0900 [facility] Stop: 12/07/19 08:59 Last Admin: 11/07/19 10:00 Dose: 50,000 units Documented by: Fluticasone/Vilanterol (Breo Ellipta 100/25 Mcg Inh) 1 puffs INH DAILY [facility] Stop: 12/06/19 08:59 Last Admin: 11/07/19 08:15 Dose: 1 puffs Documented by: Folic Acid (Folvite) 1 mg PO QAM [facility] Stop: 12/07/19 08:59 Last Admin: 11/07/19 10:00 Dose: 1 mg Documented by: Hydromorphone HCl (Dilaudid) 0.25 - 0.5 mg IV Q1H PRN PRN Reason: Moderate/Severe Pain Stop: 11/19/19 13:48 Last Admin: 11/07/19 12:08 Dose: 0.5 mg Documented by: Acetaminophen (Ofirmev) 1,000 mg in 100 mls @ 400 mls/hr IV Q8H PRN PRN Reason: Fever Stop: 11/10/19 01:00 Last Infusion: 11/07/19 01:24 Dose: Infused Documented by: Insulin Aspart (Novolog Flexpen) 0 units SC ACHS [facility] Stop: 12/06/19 16:29 Last Admin: 11/07/19 12:10 Dose: 2 units Documented by: Insulin Glargine (Lantus Solostar Pen) 30 units SC QDD [facility] Stop: 12/07/19 12:59 Last Admin: 11/07/19 12:34 Dose: 30 units Documented by: Lactase (Lactaid) 9,000 units PO AC PRN PRN Reason: Stomach Upset Stop: 12/05/19 23:27 Magnesium Hydroxide (Milk Of Magnesia) 30 ml PO Q12H PRN PRN Reason: Constipation Stop: 12/05/19 14:33 [facility] ([facility]) [facility] Stop: 12/06/19 08:59 Last Admin: 11/07/19 08:16 Dose: 400 mg Documented by: Metoprolol Succinate (Toprol Xl) 50 mg PO QAM [facility] Stop: 12/06/19 08:59 Last Admin: 11/07/19 08:17 Dose: Not Given Documented by: Miscellaneous Information (Consult Glycemic Management Pharmacy) 1 ea N/A UD PRN PRN Reason: Consult Stop: 12/05/19 15:20 Naloxone HCl (Narcan) 0.1 mg IV UD PRN PRN Reason: Opioid Overdose Stop: 12/06/19 14:45 Ondansetron HCl (Zofran) 4 mg IV Q6H PRN PRN Reason: Nausea Stop: 12/05/19 14:33 Pantoprazole Sodium (Protonix) 40 mg PO QAM [facility] Stop: 12/06/19 08:59 Last Admin: 11/07/19 08:17 Dose: 40 mg Documented by: Polyethylene Glycol (Miralax Powder Packet) 17 gm PO DAILY PRN PRN Reason: Constipation Stop: 12/05/19 14:33 Prochlorperazine (Compazine) 10 mg PO Q6H PRN PRN Reason: Nausea Stop: 12/05/19 14:33 Psyllium Hydrophilic Mucilloid (Metamucil) 1 pkt PO DAILY [facility]; Protocol Stop: 12/06/19 08:59 Last Admin: 11/07/19 08:16 Dose: Not Given Documented by: Simethicone (Mylicon) 120 mg PO Q6H PRN; Protocol PRN Reason: Gastrointestinal Spasms Or Cyber Security Analyst Stop: 12/05/19 14:33 Trazodone HCl (Desyrel) 50 mg PO HS PRN PRN Reason: Sleep Stop: 12/05/19 14:33 Vitamin D (Vitamin D3) 2,000 units PO QAM [facility] Stop: 12/07/19 08:59 Last Admin: 11/07/19 10:00 Dose: 2,000 units Documented by: (1) Intertrochanteric fracture of left femur Encounter type: initial encounter Fracture type: closed Fracture alignment: displaced Qualified Code(s): S72.142A - Displaced intertrochanteric fracture of left femur, initial encounter for closed fracture (2) A-fib Atrial fibrillation type: chronic Qualified Code(s): I48.2 - Chronic atrial fibrillation
[2019-11-07] MEDS ORDERED: INSULIN GLARGINE SOLOSTAR 100 UNITS/ML 3 ML PEN SC SCH (13:00)
--- NOTE | 2019-11-07 14:13 | Electrocardiogram Report ---
Test Reason : Blood Pressure : / mmHG Vent. Rate : 081 BPM Atrial Rate : 104 BPM P-R Int : 000 ms QRS Dur : 072 ms QT Int : 364 ms P-R-T Axes : 000 -10 194 degrees QTc Int : 422 ms Atrial fibrillation Low voltage QRS Cannot rule out Anterior infarct , age undetermined Abnormal ECG When compared with ECG of 05-NOV-2019 09:28, Significant changes have occurred Confirmed by Rohan Pena ([id number]) on 11/07/2019 2:12:50 PM Referred By: REFERRED SELF Confirmed By:Rohan Pena
--- NOTE | 2019-11-07 14:36 | Pharmacy Report ---
Pharmacy Glycemic Short Note 2 - Date of Service November 07, 2019 - Glycemic Short BSG Results (Last 24 hours): 11/06/19 11/06/19 11/06/19 16:08 19:45 20:56 Glucose 183 H POC Glucose 216 H 212 H 11/07/19 11/07/19 11/07/19 00:43 04:26 06:41 Glucose 106 H POC Glucose 101 H 108 H 11/07/19 11/07/19 07:19 11:21 Glucose POC Glucose 114 H 176 H OUTPATIENT ANTIDIABETIC REGIMEN: * Lantus 45u HS + Novolog SSI ASSESSMENT: * Postoperative BSGs have been reasonable: [phone]/dL. After reviewing her chart, it appears that she may have s/sx of hypoglycemia when BSGs < 200mg/dL. We will reduce her once daily lantus from 35u to 30u. Hopefully this will mitigate any altered mentation while still maintaining adequate BSGs to promote wound healing. PLAN FOR INPATIENT GLYCEMIC CONTROL: * Basal insulin * Lantus as above: 30u daily * Bolus insulin * NovoLog per scale ACHS or Q6hrs while NPO * Goal Range: Low 110 mg/dL - High 140 mg/dL * Correction Factor: 20 mg/dL/unit * Nutritional / Prandial insulin per carb ratio of 1 unit per 4 grams CHO consumed
[2019-11-07] MEDS: Heparin IV Standard *NO* Bolus IV SCH ×4 (15:40→15:48)
[2019-11-07] MEDS: HEPARIN SODIUM/DEXTROSE 25,000 UNITS/500 ML BAG IV SCH (15:40)
[2019-11-07] MEDS: WARFARIN SOD 2 MG TAB PO SCH (15:43)
[2019-11-07] MEDS: ATORVASTATIN 40 MG TAB PO SCH (15:47)
[2019-11-07] MEDS: ASPIRIN 81 MG ECTAB PO SCH (15:47)
[2019-11-07 16:00] LABS: Partial Thromboplastin Ratio 1.1; Partial Thromboplastin Time 28.7 Seconds (21.0-31.0)
--- NOTE | 2019-11-07 16:47 | Electrocardiogram Report ---
Test Reason : Blood Pressure : / mmHG Vent. Rate : 071 BPM Atrial Rate : 357 BPM P-R Int : 000 ms QRS Dur : 052 ms QT Int : 398 ms P-R-T Axes : 000 043 192 degrees QTc Int : 432 ms Atrial fibrillation Low voltage QRS Cannot rule out Anteroseptal infarct (cited on or before 06-NOV-2019) Abnormal ECG When compared with ECG of 06-NOV-2019 21:47, (unconfirmed) Questionable change in initial forces of Septal leads ST now depressed in Anterior leads T wave inversion more evident in Anterolateral leads Confirmed by Rohan Pena ([id number]) on 11/07/2019 4:46:46 PM Referred By: REFERRED SELF Confirmed By:Rohan Pena
--- NOTE | 2019-11-07 16:52 | Electrocardiogram Report ---
Test Reason : Blood Pressure : / mmHG Vent. Rate : 077 BPM Atrial Rate : 144 BPM P-R Int : 000 ms QRS Dur : 060 ms QT Int : 380 ms P-R-T Axes : 000 -10 242 degrees QTc Int : 430 ms Atrial fibrillation Low voltage QRS Abnormal ECG When compared with ECG of 07-NOV-2019 12:08, (unconfirmed) Serial changes of Septal infarct Present Confirmed by Rohan Pena ([id number]) on 11/07/2019 4:52:49 PM Referred By: REFERRED SELF Confirmed By:Rohan Pena
--- NOTE | 2019-11-07 17:39 | Billing Data ---
Date of Service November 07, 2019 Coding Level of Care Code 59426 Subseq Hosp Care Lvl 3
--- NOTE | 2019-11-07 17:52 | Hospitalist Progress Note ---
Date of Service November 07, 2019 Assessment & Plan (1) Fall: 53 yo F w/ metastatic colon cancer stage IV, lung cancer, A. fib, heart failure with reduced ejection fraction, IDDM type II, Asthma, ANA, Hypothyroid, GERD, presenting with left hip pain after fall on walker while on Coumadin. Jono ears mechanical due to her walker slipping out from under her, however certainly her electrolyte abnormalities and hyperglycemia may be contributory. Other thoughts include pathologic fracture from metastatic disease and osteoporosis potentially driven by elevated thyroid levels. (2) Intertrochanteric fracture of left femur: UOC consulted and was medically optimized for surgery s/p intertrochanteric nailing - Dr. Rehman - CT abd/pelvis initially showed: L intertrochanteric fx. Femur XR: acute impacted and angulated intratrochanteric fx of left femur - MRSA nasal swab - pain control with Dilaudid 0.25-0.5mg Q1H PRN - Hirsch catheter placed in ER - Vitamin D level 16.6 L - PT/OT order placed (3) Acute hypokalemia: Unclear cause but patient has had past issues with compliance. ?lasix use alone but patient reports dose not recently changed. - initially potassium 2.7 . - 5.1 this AM held potassium in fluid - will continue to monitor with AM BMP (4) Atrial flutter: Chronic atrial fibrillation however currently appears to be in flutter. Either way she appears rate controlled on her current medical regimen and digoxin level WNL. - She is anticoagulated with warfarin which was reversed for her operation. - restarted Warfarin - decreased Metoprolol dose due to hypotension starting tomorrow with 25 mg from 50 mg - Consulted cardiology (5) Chronic HFrEF (heart failure with reduced ejection fraction): Appears dry on exam rather than in acute exacerbation. She notes she takes lasix 40mg PO BID and spironolactone 12.5mg PO daily -> on hold while rehydrating with IV fluids. - stopped 100 mL/hr D5NSS today - Troponin elevated at 0.19, continue to evaluate for symptoms - continue to evaluated fluid status, soft blood pressures currently - if blood pressures drop w/ systolics below 80 mmHg consider small bolus of 250 mL and reevaluate (6) Mitral regurgitation: - as above; makes it more likely she will end up having some pulmonary edema as we attempt to rehydrate her. (7) Colorectal cancer, stage IV: Hold further chemotherapy (capecitabine) at this time to enable fracture healing. - Concerning that fracture may be pathological. (8) Diabetes mellitus, type II: Hyperglycemia and ketones noted on admission, no anion gap however so suspect she lives with a very elevated glucose and patient does note hypoglycemic symptoms when glucose < 200 therefore she aims to keep her glucose higher. - pH 7.44 on admission therefore not in DKA. - Appreciate glycemic control management - HbA1C 14 (9) Asthma: - Continue Breo Ellipta (10) ANA (obstructive sleep apnea): Historical diagnosis although she still wears CPAP at home this has not been retested and she has lost considerable amounts of weight due to her cancer. - Will keep on continuous pulse Ox overnight and if desaturating can order CPAP here otherwise patient may use her own if a family member brings it in. (11) Hypothyroidism: Patient on enormous dose of synthroid and looking over the pior notes inpatient an outpatient she has been taking these doses since 2017. It was unclear from pharmacy or review of outpatient notes why she is on these high doses. Patient had reported to Dr. Weems in 2019 that she had a genetic issue that she shares with her brother. Other possibilities include some type of malabsorption or possibly non-compliance and increasing doses when she wasn't taking it. - TSH 0.087 FT4>8 - will seek to get any other records of corroborating information from patient on reason for high doses. (12) GERD (gastroesophageal reflux disease): Switch omeprazole for pantoprazole as per hospital formulary (13) DVT prophylaxis: Initially INR 3.0. Reversed with Vit K 5mg IV. - INR 1.4 prior to surgery - PTINR daily (14) Discharge planning issues: PT/OT post operatively (not currently ordered as unclear weight bearing status at present. - Possible need for placement on discharge. (15) Chest pain: Patient admitted chest pain today with breathing - troponin 0.19, will trend Q6H - EKG - placed on therapeutic Heparin - continue to reassess for pain - added ASA 81 mg and Atorvastatin 40 mg - cardiology consulted and made aware (16) Hypotension: Was 74/49 overnight and responded to 250 mL bolus and again 73/44 which again responded to 250 mL bolus. This is potentially due to post operative blood loss vs. pain medication. Continue to monitor blood pressure and give small bolus and reassess patient. - decreased dose of Metoprolol from 50 mg to 25 mg AM starting 11/08 Supervising Physician Co-Signing Physician Notes I personally examined the patient and verified all aguirre points of history and exam, discussed case, and agree with decision making with Dr Basurto. difficult historian but appears uncomfortable - have to ask in multiple lines of questioning but pt eventually says upper stomach and below breasts hurts. very limited historian, but keeps reiterating pain. Vitals noted in general she is sitting in chair writhing back and forth appearing quite uncomforgable but difficult historian/can't give good details without repeated and directed questioning.. HEENT normocephalic atraumatic mucous membranes moist to may be slightly dry. No noted JVD. Cardio is irregularly irregular but rate controlled without rubs murmurs gallops lungs are difficult exam but seem to be clear, no accessory muscle use no respiratory distress. abdomen mildly distended very tender LLQ no guarding/rebound/rigidity. Extremities show no cyanosis. Neuro shows no focal deficits. pain - due to difficulty in taking a history will have to start wtih a broad workup (uncertain of her baseline but strongly suspect she currently has delirium at play). EKG, KUB, follow up. (later EKG noted to have flipped Ts - trop sl up - started heparin, comfortable in f/u). KUB nonspecific but reassuring. appeared to be unstable angina unstable angina - med management as best as possible. d/w cardiology. heparin gtt. fortunately later pain free although EKG changes remained. with hindsight fortunately troponin did not rise much. Hip fracturepresumed osteoporotic (concern also for pathologic related to the malignancy but given that there was no metastatic deposit noted on the CT scans that did show the fracture, this seems less likely). Now status post surgery. PT/OT eval and treat, supportive care. Secondary risk reduction (osteoporosis w/u and treatment as outpt, start vitamin D, manage thyroid disease. Hypothyroidismnow markedly hyperthyroid. It appears she has had significant ups and downs with her TSHs over the years, and 1 of my colleagues will take care of her before was able to discern that she believes she has some type of genetic disorder there is a sister has as well, but there was also concern about compliance at that time. Now she certainly has a suppressed TSH with an undetectably high free T4, suggesting that even if she has some sort of genetic disorder compromising her sensitivity to levothyroxine she is overtreated at this time. Certainly that would be a major risk for osteoporosis. Hold Synthroid for now, continue to follow, it appears that her PCPs office is prescribing the Synthroid but she has seen [facility] beforewaiting records. For now hold Synthroid and follow, likely will need to resume at a lower dose, but it is unclear exactly what this will be. Uncontrolled type 2 diabetescontinue insulin management for now in the perioperative time. sugars have been acceptable today. A. fibfortunately in spite of her marked hyperthyroidism she is not tachycardic. Rate is controlled, anticoagulation with heparin --> coumadin DVT prophylaxisanticoagulation Chronic systolic CHF (otherwise known as HFrEF) has needed small fluid boluses due to low pressures - follow. Otherwise as above Subjective Luisa Bernard was in some pain this morning, the pain was initially primarily in her left leg, but later in the day she was complaining of pain in her chest that was worse with breathing. She had low blood pressures through the night into the 70's systolic to the 40's diastolic. Overall she is still very groggy but mentating better than immediately post operatively. Review of Systems Constitutional: no fever and no chills Respiratory: no cough and no sputum production admits shortness of breath Cardiovascular: + chest pain (w/ deep breaths); no palpitations Gastrointestinal: no abdominal pain and no bloating Neurologic: no headache(s) Physical Exam Constitutional: + thin Eyes: PERRL and EOM intact bilaterally ENMT: external ear and nose normal, oropharynx normal Neck: trachea midline Respiratory: normal respiratory effort, lungs clear to auscultation Cardiovascular: Rate/Rhythm: + irregularly irregular Heart Sounds: no gallop and no cardiac rub Extremities: no edema Skin: no rashes, warm and dry Psychiatric: Affect: + flat affect Results & Data ([facility]) Vital Signs (Past 12 Hours) Vital Signs Temp Pulse Pulse Pulse Resp BP Pulse Ox 11/07/19 16:00 74 11/07/19 15:44 36.5 C 80 18 109/71 100 11/07/19 11:23 100 11/07/19 11:20 36.3 C L 62 18 94/54 L 100 11/07/19 08:15 74 11/07/19 07:17 36.7 C 66 20 93/67 L 100 11/07/19 06:23 78 98/67 L 98 Resident Activity Tracking Resident Involvement: Resident Care Provided Care Provided: Adult Hospital Medicine (1) Diabetes mellitus, type II Diabetes mellitus complication status: with hyperglycemia 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: with fpc use Qualified Code(s): E11.65 - Type 2 diabetes mellitus with hyperglycemia; Z79.4 - 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 (current) use of insulin (2) Atrial flutter Atrial flutter type: typical Qualified Code(s): I48.3 - Typical atrial flutter (3) Hypothyroidism Hypothyroidism type: acquired Qualified Code(s): E03.9 - Hypothyroidism, unspecified (4) Mitral regurgitation Cardiac valve disease etiology: nonrheumatic Qualified Code(s): I34.0 - Nonrheumatic mitral (valve) insufficiency (5) GERD (gastroesophageal reflux disease) Esophagitis presence: without esophagitis Qualified Code(s): K21.9 - Gastro- esophageal reflux disease without esophagitis (6) Fall Encounter type: initial encounter Qualified Code(s): W19.XXXA - Unspecified fall, initial encounter (7) Asthma Asthma complication type: uncomplicated Asthma persistence: intermittent Asthma severity: unspecified severity Qualified Code(s): J45.20 - Mild intermittent asthma, uncomplicated (8) Intertrochanteric fracture of left femur Encounter type: initial encounter Fracture alignment: displaced Fracture type: closed Qualified Code(s): S72.142A - Displaced intertrochanteric fracture of left femur, initial encounter for closed fracture
[2019-11-07 22:06] LABS: Partial Thromboplastin Ratio 3.1
[2019-11-07 22:14] LABS: Partial Thromboplastin Time 83.6 Seconds (21.0-31.0)
[2019-11-08 05:40] LABS: Partial Thromboplastin Ratio > 5.1
[2019-11-08 05:45] LABS: Partial Thromboplastin Time > 139.0 Seconds (21.0-31.0)
[2019-11-08 06:26] LABS: Basophils # (auto) 0.01 K/uL (0-0.2); Basophils % (auto) 0.1 %; Eosinophils # (auto) 0.03 K/uL (0-0.5); Eosinophils % (auto) 0.2 %; Hematocrit (blood only) 29.2 % (37-47); Hemoglobin 9.7 g/dL (12.0-16.0); Immature Granulocytes % (auto) 0.6 %; Lymphocytes # (auto) 3.02 K/uL (1.2-3.4); Mean Corpuscular Hemoglobin 34.4 pg (25-34); Mean Corpuscular Hgb Conc 33.2 g/dL (32-36); Mean Corpuscular Volume 103.5 fL (80-100); Mean Platelet Volume 9.6 fL (7.4-10.4); Monocytes # (auto) 1.43 K/uL (0.11-0.59); Monocytes % (auto) 8.5 %; Neutrophils # (auto) 12.23 K/uL (1.4-6.5); Neutrophils % (auto) 72.6 %; Nucleated RBC # (auto) 0.03 K/uL (0-0); Nucleated RBC % (auto) 0.2 %; Platelet Count 191 K/uL (130-400); RDW Coefficient of Variation 17.4 % (11.5-14.5); RDW Standard Deviation 65.2 fL (36.4-46.3); Red Blood Count 2.82 M/uL (4.2-5.4); White Blood Count 16.82 K/uL (4.8-10.8)
[2019-11-08 06:39] LABS: Partial Thromboplastin Ratio 1.6; Partial Thromboplastin Time 44.1 Seconds (21.0-31.0)
[2019-11-08] MEDS ORDERED: HEPARIN IV BOLUS 2,000 UNITS in SYRINGE 0 ML IV ONE (06:44)
[2019-11-08 06:46] LABS: Calcium 8.9 mg/dl (8.5-10.1); Creatinine Clr Calc Pharmacy 91.9 ml/min; Est GFR (African American) 122.4; Est GFR (Non-African American) 105.6; Potassium 4.6 mmol/L (3.5-5.1)
[2019-11-08] MEDS: INSULIN ASPART 100 UNITS/ML 3 ML PEN SC SCH ×4 (08:11→20:50)
[2019-11-08] MEDS: FLUTICASONE/VILANTEROL 100/25MCG 14 PUFFS/INHALER INH SCH (08:12)
[2019-11-08] MEDS: HYDROmorphone INJ 0.5 MG/0.5 ML SYR IV PRN ×4 (08:37→20:48)
[2019-11-08] MEDS ORDERED: METOPROLOL SUCC 25MG EXT REL TAB PO SCH (09:00)
[2019-11-08] MEDS: ASPIRIN 81 MG ECTAB PO SCH (09:47)
[2019-11-08] MEDS: FOLIC ACID 1 MG TAB PO SCH (09:48)
[2019-11-08] MEDS: PSYLLIUM 58.6% POWDER PACKET PO SCH (09:48)
[2019-11-08] MEDS: MAGNESIUM OXIDE 400 MG TAB PO SCH (09:48)
[2019-11-08] MEDS: CHOLECALCIFEROL 1,000 UNITS 25 MCG TAB PO SCH (09:48)
[2019-11-08] MEDS: PANTOprazole 40 MG TAB PO SCH (09:48)
[2019-11-08] MEDS: DIGOXIN 0.125 MG TAB PO SCH (09:48)
[2019-11-08] MEDS: ATORVASTATIN 40 MG TAB PO SCH (09:48)
--- NOTE | 2019-11-08 10:00 | Hospitalist Progress Note ---
Date of Service November 08, 2019 Assessment & Plan (1) Fall: 53 yo F w/ metastatic colon cancer stage IV, lung cancer, A. fib, heart failure with reduced ejection fraction, IDDM type II, Asthma, ANA, Hypothyroid, GERD, presenting with left hip pain after fall on walker while on Coumadin. Jono ears mechanical due to her walker slipping out from under her, however certainly her electrolyte abnormalities and hyperglycemia may be contributory. Other thoughts include pathologic fracture from metastatic disease and osteoporosis potentially driven by elevated thyroid levels. (2) Intertrochanteric fracture of left femur: UOC consulted and was medically optimized for surgery s/p intertrochanteric nailing with Dr. Rehman - CT abd/pelvis initially showed: L intertrochanteric fx. Femur XR: acute impacted and angulated intratrochanteric fx of left femur - pain control with Dilaudid 0.25-0.5mg Q1H PRN - Hirsch catheter placed in ER - Vitamin D level 16.6 L - PT/OT order placed (3) Acute hypokalemia: Unclear cause but patient has had past issues with compliance. ?lasix use alone but patient reports dose not recently changed. - initially potassium 2.7 . - 4.6 this AM - will continue to monitor with AM BMP (4) Atrial flutter: Chronic atrial fibrillation however currently appears to be in flutter. Either way she appears rate controlled on her current medical regimen and digoxin level WNL. - She is anticoagulated with warfarin which was reversed for her operation. - restarted Warfarin - patient having difficulty with swallowing and was made NPO and metoprolol was changed from oral 25 mg QAM to 5 mg IV Q6H - Consulted cardiology (5) Chronic HFrEF (heart failure with reduced ejection fraction): Appears dry on exam rather than in acute exacerbation. She notes she takes lasix 40mg PO BID and spironolactone 12.5mg PO daily -> on hold while rehydrating with IV fluids. - stopped 100 mL/hr D5NSS today - Troponin elevated at 0.19, continue to evaluate for symptoms - continue to evaluated fluid status, soft blood pressures currently - if blood pressures drop w/ systolics below 80 mmHg consider small bolus of 250 mL and reevaluate (6) Mitral regurgitation: - as above; makes it more likely she will end up having some pulmonary edema as we attempt to rehydrate her. (7) Colorectal cancer, stage IV: Hold further chemotherapy (capecitabine) at this time to enable fracture healing. - Concerning that fracture may be pathological. (8) Diabetes mellitus, type II: Hyperglycemia and ketones noted on admission, no anion gap however so suspect she lives with a very elevated glucose and patient does note hypoglycemic symptoms when glucose < 200 therefore she aims to keep her glucose higher. - pH 7.44 on admission therefore not in DKA. - Appreciate glycemic control management - HbA1C 14 (9) Asthma: - Continue Breo Ellipta (10) ANA (obstructive sleep apnea): Historical diagnosis although she still wears CPAP at home this has not been retested and she has lost considerable amounts of weight due to her cancer. - Will keep on continuous pulse Ox overnight and if desaturating can order CPAP here otherwise patient may use her own if a family member brings it in. (11) Hypothyroidism: Patient on enormous dose of synthroid and looking over the pior notes inpatient an outpatient she has been taking these doses since 2017. It was unclear from pharmacy or review of outpatient notes why she is on these high doses. Patient had reported to Dr. Weesm in 2019 that she had a genetic issue that she shares with her brother. Other possibilities include some type of malabsorption or possibly non-compliance and increasing doses when she wasn't ta vi it. Per note by Dr. Zimmerman 10/30/2018 she had a TSH of 11.4 in 2001 and she was started on a 100 mg dose of Synthroid initially that was titrated up. 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 - TSH 0.087 FT4>8 - will seek to get any other records of corroborating information from patient on reason for high doses. (12) GERD (gastroesophageal reflux disease): Switch omeprazole for pantoprazole as per hospital formulary (13) DVT prophylaxis: Initially INR 3.0. Reversed with Vit K 5mg IV prior to surgery - 1.3 today - PT INR daily (14) Discharge planning issues: PT/OT post operatively (not currently ordered as unclear weight bearing status at present. - Possible need for placement on discharge. (15) Chest pain: Patient admitted chest pain today with breathing - troponin 0.19 found to be downtrending - placed on therapeutic Heparin, will continue for now - continue to reassess for pain - added ASA 81 mg and Atorvastatin 40 mg - cardiology consulted and made aware (16) Hypotension: Was 74/49 overnight and responded to 250 mL bolus and again 73/44 which again responded to 250 mL bolus. This is potentially due to post operative blood loss vs. pain medication. Continue to monitor blood pressure and give small bolus and reassess patient. - decreased dose of Metoprolol from 50 mg to 25 mg AM starting 11/08 (17) Dysphagia: Nurse identified that patient is coughing with pills this morning. Differential includes oversedation with pain medication, underlying issue with dysphagia, r/o stroke although no focal findings on physical exam and patient is on therapeutic heparin. - speech evaluation today, on puree diet (18) Encephalopathy acute: multifactorial encephalopathy s/p procedure on pain medication in a patient with history of metastatic colon cancer. - non con head CT ordered (19) Thrush: Found to have thrush on speech evaluation - patient unable to have thin liquids, so unable to give nystatin swish and swallow - normal LFT's on admission. - gave loading dose of Fluconazole IV 200 mg and will check CMP in the AM. Supervising Physician Co-Signing Physician Notes I personally examined the patient and verified all aguirre points of history and exam, discussed case, and agree with decision making with Dr Basurto. a little more alert when i see her today, although still groggy and talking w dtr she is not at baseline. she notes L hip pain but otherwise no acute copmlaints. dtr notes that mentally she is definitley not at baseline. Vitals noted in nad, laying in bed on side. nc at mmm. cardio reg no r/m/g. lungs cta b/l no r/r/w good effort. abd soft nd nt no masses. ext no c/c/e. cn 2-12 grossly intact gross motor/sensory intact.. delirium/metabolic encephalopathy - multifactorial. supportive care/reorientation as best as possible. unstable angina - med management as best as possible. fortunately troponin did not rise to much significance. heparin gtt. now pain free. Hip fracturepresumed osteoporotic (concern also for pathologic related to the malignancy but given that there was no metastatic deposit noted on the CT scans that did show the fracture, this seems less likely). POD2. PT/OT eval and treat ongoing, supportive care. Secondary risk reduction (osteoporosis w/u and treatment as outpt, start vitamin D, manage thyroid disease. Hypothyroidismnow markedly hyperthyroid. It appears she has had significant ups and downs with her TSHs over the years, and 1 of my colleagues will take care of her before was able to discern that she believes she has some type of genetic disorder there is a sister has as well, but there was also concern about compliance at that time. Now she certainly has a suppressed TSH with an undetectably high free T4, suggesting that even if she has some sort of genetic disorder compromising her sensitivity to levothyroxine she is overtreated at this time. Certainly that would be a major risk for osteoporosis. Hold Synthroid for now, continue to follow, it appears that her PCPs office is prescribing the Synthroid but she has seen [facility] endocrinology beforewaiting records. For now hold Synthroid and follow, likely will need to resume at a lower dose, but it is unclear exactly what this will be. baseline uncontrolled type 2 diabetescontinue insulin management for now - sugars reasonable A. fibfortunately in spite of her marked hyperthyroidism she is not tachycardic. Rate is controlled, anticoagulation with heparin --> coumadin acute anemia - in the range of expected for hip fx. follow closely on heparin but no indication of bleeding right now. DVT prophylaxisanticoagulation Chronic systolic CHF (otherwise known as HFrEF) euvolemic. follow. Otherwise as above Subjective Luisa Bernard was again in a fair amount of pain this morning. She describes feeling rough, it is tough to understand her speech because it is somewhat garbled and she is groggy. When asked where her pain rates on a scale of 1-10 she states bad. The location is unclear and she did wince when i had her squeeze my had with her left arm. She denies any chest pain or abdominal pain. Nurse brought up that she is having difficulty with swallowing this morning. Review of Systems Constitutional: no fever and no chills Respiratory: no cough denies shortness of breath Cardiovascular: no chest pain and no palpitations Gastrointestinal: no abdominal pain, no nausea and no vomiting Neurologic: no headache(s) Physical Exam Constitutional: + thin Eyes: PERRL and EOM intact bilaterally ENMT: external ear and nose normal, oropharynx normal Neck: trachea midline Respiratory: normal respiratory effort, lungs clear to auscultation Cardiovascular: Rate/Rhythm: + irregularly irregular Heart Sounds: no gallop and no cardiac rub Extremities: no edema Gastrointestinal (Abdomen): Percussion/Palpation: abdomen soft; abdomen nontender, no guarding and abdomen not rigid Skin: no rashes, warm and dry Neurologic: CN's II-XI intact bilaterally When I had her squeeze my finger she had 5/5 strength on the right and was in pain and unable to squeeze my finger with her left hand. 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 (2) Atrial flutter Atrial flutter type: typical Qualified Code(s): I48.3 - Typical atrial flutter (3) Hypothyroidism Hypothyroidism type: acquired Qualified Code(s): E03.9 - Hypothyroidism, unspecified (4) Mitral regurgitation Cardiac valve disease etiology: nonrheumatic Qualified Code(s): I34.0 - Nonrheumatic mitral (valve) insufficiency (5) GERD (gastroesophageal reflux disease) Esophagitis presence: without esophagitis Qualified Code(s): K21.9 - Gastro- esophageal reflux disease without esophagitis (6) Fall Encounter type: initial encounter Qualified Code(s): W19.XXXA - Unspecified fall, initial encounter (7) Asthma Asthma complication type: uncomplicated Asthma persistence: intermittent Asthma severity: unspecified severity Qualified Code(s): J45.20 - Mild intermittent asthma, uncomplicated (8) Intertrochanteric fracture of left femur Encounter type: initial encounter Fracture alignment: displaced Fracture type: closed Qualified Code(s): S72.142A - Displaced intertrochanteric fracture of left femur, initial encounter for closed fracture
[2019-11-08 10:53] LABS: INR 1.3 (0.9-1.1); Prothrombin Time 13.3 Seconds (9.0-12.0)
--- NOTE | 2019-11-08 11:02 | Orthopedic Progress Note ---
Date of Service November 08, 2019 Assessment & Plan (1) Intertrochanteric fracture of left femur: POD#2 left trochanteric nailing -Pain management -PT/OT-Patient may be WBAT for left hip fracture. With possible nonunion of her left distal femur fracture, Dr Riggins is planning for a CT scan of the left distal femur. If she is continuing to show signs of nonunion, she may need to be nonweightbearing on the whole left lower extremity with the possibility of use of a brace from Orthotics as well. -DVT prophylaxis-SCDs, warfarin restarted. Patient on heparin drip likely until warfarin therapeutic Supervising Physician Co-Signing Physician Notes I have personally seen and examined the patient. Doing well, complaining of pain in the left hip. LLE NVSI +EHL/FHL/TA/GS SILT grossly, +2 DP pulse, compartments soft NT, dressing cdi. 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 Patient has been noncompliant with weightbearing restrictions, follow-up, bracing, bone stem, nutritional work-up and follow-up, referral was provided to tertiary care center in July 2019 for further evaluation treatment for left distal femur periprosthetic fracture nonunion however patient did not follow-up she reports. We will obtain up-to-date CT scan to evaluate fracture further, recommend protected weightbearing of her left lower extremity pending CT results, hinged knee immobilizer, and outpatient follow-up with tertiary care center traumatologist for further evaluation treatment for periprosthetic nonunion. Subjective POD 2 s/p Left TFN Pt awake. Answering questions appropriately. Patient stating she is having moderate pain with trying to move around. Less pain at rest. No other complaints at this time. Physical Exam Physical Exam: Dressings are clean, dry, and intact. Left thigh soft, with swelling but not tense. Calves are soft nontender. Neurovascular is intact. Toes are mobile. Results & Data ([facility]) Vital Signs (Past 12 Hours) Vital Signs Temp Pulse Pulse Resp BP BP Pulse Ox 11/08/19 07:58 37.3 C 96 H 18 106/68 100 11/08/19 04:00 37.5 C 80 18 97/66 L 100 11/08/19 00:04 80 02/07/20 23:11 36.8 C 78 20 100/65 100 Laboratory Results Laboratory Results WBC 16.82 K/uL (4.8-10.8) H 11/08/19 06:10 RBC 2.82 M/uL (4.2-5.4) L 11/08/19 06:10 Hgb 9.7 g/dL (12.0-16.0) L 11/08/19 06:10 Hct 29.2 % (37-47) L 11/08/19 06:10 MCV 103.5 fL (80-100) H 11/08/19 06:10 MCH 34.4 pg (25-34) H 11/08/19 06:10 MCHC 33.2 g/dL (32-36) 11/08/19 06:10 RDW Std Deviation 65.2 fL (36.4-46.3) H 11/08/19 06:10 RDW Coeff of [place] 17.4 % (11.5-14.5) H 11/08/19 06:10 Plt Count 191 K/uL (130-400) 11/08/19 06:10 MPV 9.6 fL (7.4-10.4) 11/08/19 06:10 Immature Gran % (Auto) 0.6 % 11/08/19 06:10 Neut % (Auto) 72.6 % 11/08/19 06:10 Lymph % (Auto) 18.0 % 11/08/19 06:10 [place] % (Auto) 8.5 % 11/08/19 06:10 Eos % (Auto) 0.2 % 11/08/19 06:10 Baso % (Auto) 0.1 % 11/08/19 06:10 Immature Gran # (Auto) 0.10 K/uL (0.00-0.02) H 11/08/19 06:10 Neut # (Auto) 12.23 K/uL (1.4-6.5) H 11/08/19 06:10 Lymph # (Auto) 3.02 K/uL (1.2-3.4) 11/08/19 06:10 [place] # (Auto) 1.43 K/uL (0.11-0.59) H 11/08/19 06:10 Eos # (Auto) 0.03 K/uL (0-0.5) 11/08/19 06:10 Baso # (Auto) 0.01 K/uL (0-0.2) 11/08/19 06:10 Absolute Nucleated RBC 0.03 K/uL (0-0) H 11/08/19 06:10 Nucleated RBC % (auto) 0.2 % 11/08/19 06:10 PT 13.3 Seconds (9.0-12.0) H 11/08/19 06:10 INR 1.3 (0.9-1.1) H 11/08/19 06:10 APTT 44.1 Seconds (21.0-31.0) H 11/08/19 06:10 PTT Ratio 1.6 11/08/19 06:10 VBG pH 7.46 (7.36-7.41) H 11/06/19 00:19 VBG pCO2 51 mmHg (38-50) H 11/06/19 00:19 VBG pO2 37 mmHg 11/06/19 00:19 VBG HCO3 35 mmol/L 11/06/19 00:19 VBG O2 Saturation 68.2 % 11/06/19 00:19 VBG Base Excess 9.4 mEq/L 11/06/19 00:19 Sodium 141 mmol/L (136-145) 11/08/19 06:10 Potassium 4.6 mmol/L (3.5-5.1) 11/08/19 06:10 Chloride 110 mmol/L (98-107) H 11/08/19 06:10 Carbon Dioxide 27 mmol/L (21-32) 11/08/19 06:10 Anion Gap 4.0 (3-11) 11/08/19 06:10 BUN 19 mg/dl (7-18) H 11/08/19 06:10 Creatinine 0.55 mg/dl (0.6-1.2) L 11/08/19 06:10 Est Cr Clr Drug Dosing 91.9 ml/min 11/08/19 06:10 Est GFR ( Amer) 122.4 11/08/19 06:10 Est GFR (Non-Af Amer) 105.6 11/08/19 06:10 BUN/Creatinine Ratio 35.0 (10-20) H 11/08/19 06:10 Glucose 79 mg/dl (70-99) 11/08/19 06:10 POC Glucose 98 mg/dl (70-99) 11/08/19 07:39 Estimat Average Glucose 355 mg/dl 11/06/19 05:54 Hemoglobin A1c 14.0 % (4.5-5.6) H 11/06/19 05:54 Calcium 8.9 mg/dl (8.5-10.1) 11/08/19 06:10 Magnesium 1.8 mg/dl (1.8-2.4) 11/06/19 05:54 Total Bilirubin 1.8 mg/dl (0.2-1) H 11/06/19 20:56 AST 26 U/L (15-37) 11/06/19 20:56 ALT 12 U/L (12-78) 11/06/19 20:56 Alkaline Phosphatase 127 U/L (45-117) H 11/06/19 20:56 Troponin I 0.153 ng/ml (0-0.045) H* 11/08/19 00:46 Total Protein 5.2 gm/dl (6.4-8.2) L 11/06/19 20:56 Albumin 2.1 gm/dl (3.4-5.0) L 11/06/19 20:56 Globulin 3.1 gm/dl (2.5-4.0) 11/06/19 20:56 Albumin/Globulin Ratio 0.7 (0.9-2) L 11/06/19 20:56 Vitamin B12 441 pg/ml (211-911) 11/07/19 06:41 25-OH Vitamin D Total 16.6 ng/ml (30-100) L 11/06/19 05:54 Folate 4.93 ng/ml (>5.38) L 11/07/19 06:41 Beta-Hydroxybutyric Acd 1.22 mg/dl (0.2-2.81) 11/05/19 19:52 TSH 0.087 uIu/ml (0.300-4.500) L 11/06/19 05:54 Free T4 > 8.00 ng/dl (0.8-1.6) H 11/06/19 05:54 Urine Color Yellow 11/05/19 09:55 Urine Appearance Clear (Clear) 11/05/19 09:55 Urine pH 6.0 (4.5-7.5) 11/05/19 09:55 Ur Specific [place] 1.027 (1.000-1.030) 11/05/19 09:55 Urine Protein Negative (Negative) 11/05/19 09:55 Urine Glucose (UA) 3+ (Negative) H 11/05/19 09:55 Urine Ketones Negative (Negative) 11/05/19 09:55 Urine Blood Negative (Negative) 11/05/19 09:55 Urine Nitrite Negative (Negative) 11/05/19 09:55 Urine Bilirubin Negative (Negative) 11/05/19 09:55 Urine Urobilinogen Negative (Negative) 11/05/19 09:55 Ur Leukocyte Esterase Negative (Negative) 11/05/19 09:55 Nasal Screen MRSA (PCR) Negative (Negative) 11/05/19 14:59 Digoxin 0.8 ng/ml (0.8-2.0) 11/05/19 15:10 Blood Type A Negative 11/05/19 09:50 Antibody Screen NEGATIVE 11/05/19 09:50 (1) Intertrochanteric fracture of left femur Encounter type: initial encounter Fracture alignment: displaced Fracture type: closed Qualified Code(s): S72.142A - Displaced intertrochanteric fracture of left femur, initial encounter for closed fracture
[2019-11-08] MEDS: METOPROLOL TARTRATE 1 MG/ML VIAL IV SCH ×3 (12:20→23:38)
[2019-11-08 13:41] LABS: Partial Thromboplastin Ratio 2.7
[2019-11-08 13:46] LABS: Partial Thromboplastin Time 72.6 Seconds (21.0-31.0)
--- NOTE | 2019-11-08 14:21 | Cardiology Progress Note ---
Date of Service November 08, 2019 Assessment & Plan (1) Chronic HFrEF (heart failure with reduced ejection fraction): (2) A-fib: (3) Intertrochanteric fracture of left femur: Postoperative day 2, intertrochanteric nailing of left femur fracture. Orthopedic input noted and appreciated, there are concerns for possible nonunion. Patient having difficulty swallowing and therefore the primary service to change to oral metoprolol to IV metoprolol which I think is reasonable. Regarding stroke prophylaxis she is on a heparin infusion pending ability to tolerate oral medications. Volume status stable off of her diuretics. Subjective Patient lethargic having just received pain medication. Family at bedside. Telemetry reveals rate controlled atrial fibrillation in the range of 80 bpm. Review of Systems Review of Systems: Unobtainable due to reduced consciousness Physical Exam Physical Exam: Temp Pulse Resp BP Pulse Ox 36.5 C 82 18 117/78 100 11/08/19 11:23 11/08/19 12:20 11/08/19 11:23 11/08/19 11:23 11/08/19 11:23 Constitutional: Cachectic, chronically ill-appearing Respiratory: normal respiratory effort, lungs clear to auscultation Cardiovascular: Rate/Rhythm: + irregularly irregular Heart Sounds: normal S1 and normal S2 Vessels: no JVD Extremities: no edema Gastrointestinal (Abdomen): normal bowel sounds, soft, nontender, no hepatosplenomegaly Neurologic: Lethargic Results & Data Vital Signs (Past 12 Hours) Vital Signs Temp Pulse Pulse Resp BP Pulse Ox 11/08/19 12:20 82 11/08/19 11:23 36.5 C 87 18 117/78 100 11/08/19 07:58 37.3 C 96 H 18 106/68 100 11/08/19 04:00 37.5 C 80 18 97/66 L 100 Laboratory Results Cardiac Enzymes 11/07/19 11/08/19 Range/Units 19:02 00:46 Troponin I 0.179 H* 0.153 H* (0-0.045) ng/ml Coagulation 11/07/19 11/07/19 11/08/19 Range/Units 15:35 21:36 05:01 PT (9.0-12.0) Seconds APTT 28.7 83.6 H* > 139.0 H* (21.0-31.0) Seconds 11/08/19 11/08/19 Range/Units 06:10 13:06 PT 13.3 H (9.0-12.0) Seconds APTT 44.1 H 72.6 H* (21.0-31.0) Seconds CBC 11/08/19 Range/Units 06:10 WBC 16.82 H (4.8-10.8) K/uL RBC 2.82 L (4.2-5.4) M/uL Hgb 9.7 L (12.0-16.0) g/dL Hct 29.2 L (37-47) % Plt Count 191 (130-400) K/uL Neut # (Auto) 12.23 H (1.4-6.5) K/uL Lymph # (Auto) 3.02 (1.2-3.4) K/uL [place] # (Auto) 1.43 H (0.11-0.59) K/uL Eos # (Auto) 0.03 (0-0.5) K/uL Baso # (Auto) 0.01 (0-0.2) K/uL Comprehensive Metabolic Panel 11/08/19 Range/Units 06:10 Sodium 141 (136-145) mmol/L Potassium 4.6 (3.5-5.1) mmol/L Chloride 110 H (98-107) mmol/L Carbon Dioxide 27 (21-32) mmol/L BUN 19 H (7-18) mg/dl Creatinine 0.55 L (0.6-1.2) mg/dl Glucose 79 (70-99) mg/dl Calcium 8.9 (8.5-10.1) mg/dl Intake and Output 11/07/19 11/08/19 11/08/19 22:59 06:59 14:59 Intake Total 118.8 / 1098.866 231.733 / 1098.866 127.8 / 127.8 Output Total 325 / 825 Balance 118.8 / 273.866 -93.267 / 273.866 127.8 / 127.8 Intake: IV 118.8 / 828.866 111.733 / 828.866 127.8 / 127.8 HEPARIN SODIUM/DEXTROSE 25,000 118.8 / 230.533 111.733 / 230.533 127.8 / 127.8 units In 500 ml @ 0 UNITS/HR IV .Q0M [facility] Rx#:[id number] Oral 120 / 270 Output: Urine Amount (Catheter) 325 / 825 Hirsch/Indwelling 325 / 825 Other: Weight 57.7 kg Diagnostic Findings INR today 1.3, most recent PTT 72.6 seconds (1) A-fib Atrial fibrillation type: chronic Qualified Code(s): I48.2 - Chronic atrial fibrillation (2) Intertrochanteric fracture of left femur Encounter type: initial encounter Fracture type: closed Fracture alignment: displaced Qualified Code(s): S72.142A - Displaced intertrochanteric fracture of left femur, initial encounter for closed fracture
[2019-11-08] MEDS: ACETAMINOPHEN 1,000 MG/100 ML VIAL IV PRN ×2 (14:31→23:39)
--- NOTE | 2019-11-08 16:54 | Billing Data ---
Date of Service November 08, 2019 Coding Level of Care Code 48313 Subseq Hosp Care Lvl 3
[2019-11-08] MEDS: HEPARIN SODIUM/DEXTROSE 25,000 UNITS/500 ML BAG IV SCH (17:30)
[2019-11-08] MEDS: WARFARIN SOD 2 MG TAB PO SCH (17:31)
[2019-11-08] MEDS: INSULIN GLARGINE SOLOSTAR 100 UNITS/ML 3 ML PEN SC SCH (17:35)
[2019-11-08] MEDS ORDERED: FLUCONAZOLE 200 MG/100 ML BAG IV SCH (18:00)
--- NOTE | 2019-11-08 19:41 | CT Scan Report ---
CT head/brain wo con CLINICAL HISTORY: 53 years-old Female presenting with change in mental status, dysphagia. TECHNIQUE: Multidetector CT imaging of the head was performed without the use of intravenous contrast . IV contrast: None. One or more dose lowering techniques were used consistent with the principles of ALARA (as low as reasonably achievable), including automatic exposure control, mA or kV adjustment t o individual patient size, and/or use of iterative reconstruction. COMPARISON: 08/26/2019. CT DOSE (mGy.cm): The estimated cumulative dose is 537.48 mGy.cm. FINDINGS: Marketing Secretary topogram: Unremarkable. Ventricles and sulci normal in size. No hemorrhage. Brain parenchyma normal in appearance with preser rip marie-white differentiation. No acute territorial infarct. No mass effect or midline shift. No ext ra-axial fluid collection. Paranasal sinuses and mastoid air cells clear. Calvarium intact. IMPRESSION: 1. No acute intracranial abnormality. ACT 112: Negative or not required by law. Electronically signed by: Riaz Blackwood M.D. 11/08/2019 7:39 PM
--- NOTE | 2019-11-08 19:53 | CT Scan Report ---
CT femur LT wo con CLINICAL HISTORY: 53 years-old Female presenting with distal femur non union, obtain hardware views. TECHNIQUE: Multidetector CT of the left femur was performed without the use of intravenous contrast. IV contrast: None. One or more dose lowering techniques were used consistent with the principles of A BRIJESH (as low as reasonably achievable), including automatic exposure control, mA or kV adjustment to individual patient size, and/or use of iterative reconstruction. COMPARISON: Plain radiograph from 11/05/2019. CT DOSE (mGy.cm): The estimated cumulative dose is 620.50 mGy.cm. FINDINGS: Cradle Placer topogram: Orthopedic hardware. Intramedullary nail fixation of the left femoral neck and proximal metadiaphysis with the distal inte rlocking screw for the comminuted intertrochanteric femur fracture with a significant basicervical fr acture plane. This is new from the prior radiographs. Redemonstration of the buttress plate and screw fixation of the distal metadiaphysis of the left femu r. No gross hardware breakage. There is a chronic fracture of the distal metaphysis of the left femur with a persistent fracture plane. The fracture plane has smoothly sclerotic margins. Nonbridging per iosteal reaction is evident. The cortex of the diaphysis of the left femur is significantly osteopenic, possibly in part from disu se osteopenia. Total left knee arthroplasty. No periprosthetic fracture at the tibial component. Osteopenia. Limited evaluation of the soft tissues demonstrates diffuse edema. Muscle atrophy in the thigh. Skin livan noted at the lateral proximal thigh. The urinary bladder is decompressed with a F oley catheter. Postsurgical changes of the rectum. Atherosclerosis. No gross lymphadenopathy. IMPRESSION: 1. Diffuse edema. 2. Chronic fracture of the distal metaphysis of the left femur with smoothly sclerotic margins and n onbridging periosteal reaction consistent with nonunion. 3. Extensive internal fixation hardware in the left femur as detailed above. Notably the intramedull barb nail fixation of the left femoral neck and proximal metadiaphysis is new for the acute intertroch anteric and basicervical fracture. 4. Severe osteopenia, which may in part be from disuse. ACT 112: Negative or not required by law. Electronically signed by: Riaz Blackwood M.D. 11/08/2019 7:52 PM
[2019-11-08 21:42] LABS: Partial Thromboplastin Ratio 1.7
[2019-11-08 21:52] LABS: Partial Thromboplastin Time 46.4 Seconds (21.0-31.0)
[2019-11-09] MEDS: METOPROLOL TARTRATE 1 MG/ML VIAL IV SCH ×3 (06:02→17:23)
[2019-11-09 07:05] LABS: Basophils # (auto) 0.01 K/uL (0-0.2); Basophils % (auto) 0.1 %; Eosinophils # (auto) 0.24 K/uL (0-0.5); Eosinophils % (auto) 2.4 %; Hematocrit (blood only) 22.1 % (37-47); Hemoglobin 7.7 g/dL (12.0-16.0); Immature Granulocytes # (auto) 0.04 K/uL (0.00-0.02); Immature Granulocytes % (auto) 0.4 %; Lymphocytes # (auto) 2.19 K/uL (1.2-3.4); Lymphocytes % (auto) 21.9 %; Mean Corpuscular Hemoglobin 35.2 pg (25-34); Mean Corpuscular Hgb Conc 34.8 g/dL (32-36); Mean Corpuscular Volume 100.9 fL (80-100); Monocytes # (auto) 0.73 K/uL (0.11-0.59); Monocytes % (auto) 7.3 %; Neutrophils % (auto) 67.9 %; Platelet Count 178 K/uL (130-400); RDW Coefficient of Variation 17.2 % (11.5-14.5); RDW Standard Deviation 62.9 fL (36.4-46.3); Red Blood Count 2.19 M/uL (4.2-5.4); White Blood Count 10.01 K/uL (4.8-10.8)
[2019-11-09 07:11] LABS: INR 1.3 (0.9-1.1); Prothrombin Time 13.4 Seconds (9.0-12.0)
[2019-11-09 07:29] LABS: Polychromasia 1+
[2019-11-09 07:42] LABS: Albumin Level 1.6 gm/dl (3.4-5.0); BUN Creatinine Ratio 39.7 (10-20); Calcium 8.6 mg/dl (8.5-10.1); Creatinine Clr Calc Pharmacy 83.1 ml/min; Est GFR (African American) 118.3; Est GFR (Non-African American) 102.1
[2019-11-09 07:45] LABS: Albumin Globulin Ratio 0.5 (0.9-2); Bilirubin,Total 1.4 mg/dl (0.2-1); Globulin 3.2 gm/dl (2.5-4.0); Total Protein 4.8 gm/dl (6.4-8.2)
[2019-11-09] MEDS: FLUTICASONE/VILANTEROL 100/25MCG 14 PUFFS/INHALER INH SCH (08:49)
[2019-11-09] MEDS: INSULIN ASPART 100 UNITS/ML 3 ML PEN SC SCH ×4 (08:49→21:09)
[2019-11-09] MEDS: DIGOXIN 0.125 MG TAB PO SCH (08:50)
[2019-11-09] MEDS: PANTOprazole 40 MG TAB PO SCH (08:50)
[2019-11-09] MEDS: ASPIRIN 81 MG ECTAB PO SCH (08:50)
[2019-11-09] MEDS: MAGNESIUM OXIDE 400 MG TAB PO SCH (08:51)
[2019-11-09] MEDS: PSYLLIUM 58.6% POWDER PACKET PO SCH (08:51)
[2019-11-09] MEDS: FOLIC ACID 1 MG TAB PO SCH (08:51)
[2019-11-09] MEDS: ATORVASTATIN 40 MG TAB PO SCH (08:52)
[2019-11-09] MEDS: CHOLECALCIFEROL 1,000 UNITS 25 MCG TAB PO SCH (08:52)
--- NOTE | 2019-11-09 08:53 | Orthopedic Progress Note ---
Date of Service November 09, 2019 Assessment & Plan (1) Intertrochanteric fracture of left femur: POD#3 left trochanteric nailing -Pain management -PT/OT-patient will need to be nonweightbearing on the left lower extremity. -CT scan of the distal femur shows nonunion of the fracture that underwent ORIF in the past. She will need to have a brace fitted for this need to keep her in extension and she will need to be continuing nonweightbearing on the left lower extremity. She currently has a lot of pain in the thigh due to her recent surgery. If a brace cannot be fitted comfortably, we may have to resort to an immobilizer on the left lower extremity. We will place a consult for orthotics to see her on Sunday to possibly measure her for a brace. She will eventually need further work on her distal femur fracture that is not healed but will need to be set up with a tertiary facility/traumatologist once the hip has healed. -DVT prophylaxis-SCDs, warfarin restarted. Patient on heparin drip likely until warfarin therapeutic -DC planning-patient will need rehab versus senior living facility prior to returning home. Supervising Physician Co-Signing Physician Notes Patient seen and examined with PA, agree with above assessment plan. 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 Educated patient on the diagnosis, hinged knee brace will be ordered and fitted, patient is to maintain protected weightbearing status on left lower extremity at all times. Would like patient to follow-up at tertiary care center, I will have my office provide the referral, patient has been significantly noncompliant with follow-up and recommendations for left distal femur fracture. Recommend obtaining nutritional labs and calcium vitamin D alk phos. Would appreciate any additional help with case management and setting up this referral. Subjective Postop day 3 status post left TFN Patient is currently awake and alert sitting up in bed. Seems to be in a better frame of mind today. She states she still having pain in the hip. She also states that she is having some pain down below the knee at this time. She denies shortness of breath, chest pain, lightheadedness. Review of Systems Review of Systems: All systems reviewed & are unremarkable except as noted in HPI & below Constitutional: as per Subjective / HPI Physical Exam Physical Exam: Incisions are clean, dry, and intact. No overt drainage is seen. Thigh is swollen but soft. Calves are soft. She has some mild discomfort in the left calf but I cannot appreciate any point tenderness and she states that the pain is not that bad whenever I am palpating the calf. Negative Homans exam. There is no overt edema of the lower extremity at the ankle or foot. Neurovascular is intact. She has good sensation at the foot. Results & Data ([facility]) Vital Signs (Past 12 Hours) Vital Signs Temp Pulse Pulse Resp BP BP Pulse Ox 11/09/19 08:00 36.7 C 72 18 98/65 L 100 11/09/19 04:59 78 108/67 11/09/19 03:38 36.6 C 62 20 96/63 L 100 11/08/19 23:38 85 121/70 11/08/19 23:24 36.5 C 85 18 121/70 100 (1) Intertrochanteric fracture of left femur Encounter type: initial encounter Fracture alignment: displaced Fracture type: closed Qualified Code(s): S72.142A - Displaced intertrochanteric fracture of left femur, initial encounter for closed fracture
[2019-11-09 11:43] LABS: Hematocrit (blood only) 21.6 % (37-47); Hemoglobin 7.5 g/dL (12.0-16.0)
--- NOTE | 2019-11-09 11:53 | Cardiology Progress Note ---
Date of Service November 09, 2019 Assessment & Plan (1) A-fib: (2) Chronic HFrEF (heart failure with reduced ejection fraction): Continue heparin bridge for stroke and DVT prophylaxis, plus Coumadin loading. INR today 1.3. Goal 2-3. Patient can likely be transitioned back to her chronic dose of metoprolol succinate 25 mg daily that she is tolerating the pills, off of IV metoprolol. Will defer order to the primary service. Subjective Patient's appetite and swallowing improved today. She does note left leg pain, as well delineated in the orthopedic follow-up note today, CT documents nonunion fracture of the distal left femur, and she has postoperative discomfort as well. Telemetry reveals rate controlled atrial fibrillation 70 bpm. Physical Exam Physical Exam: Temp Pulse Resp BP Pulse Ox 36.7 C 71 18 98/65 L 100 11/09/19 08:00 11/09/19 08:50 11/09/19 08:00 11/09/19 08:00 11/09/19 08:00 Constitutional: Chronically ill in appearance, cachectic Respiratory: normal respiratory effort, lungs clear to auscultation Chest (Breasts): Additional Comments: Left A port present ,utilized for IV access Neurologic: PERRL, EOMI, accommodation nl, no face palsy, no dysarthria Results & Data Vital Signs (Past 12 Hours) Vital Signs Temp Pulse Pulse Resp BP Pulse Ox 11/09/19 08:50 71 11/09/19 08:00 36.7 C 72 18 98/65 L 100 11/09/19 04:59 78 108/67 11/09/19 03:38 36.6 C 62 20 96/63 L 100 (1) A-fib Atrial fibrillation type: chronic Qualified Code(s): I48.2 - Chronic atrial fibrillation
[2019-11-09] MEDS: ACETAMINOPHEN 325 MG TAB PO SCH ×2 (12:18→17:25)
--- NOTE | 2019-11-09 13:28 | Hospitalist Progress Note ---
Date of Service November 09, 2019 Assessment & Plan (1) Fall: 53 yo F w/ metastatic colon cancer stage IV, lung cancer, A. fib, heart failure with reduced ejection fraction, IDDM type II, Asthma, ANA, Hypothyroid, GERD, presenting with left hip pain after fall on walker while on Coumadin. Jono ears mechanical due to her walker slipping out from under her, however certainly her electrolyte abnormalities and hyperglycemia may be contributory. Other thoughts include pathologic fracture from metastatic disease and osteoporosis potentially driven by elevated thyroid levels. (2) Intertrochanteric fracture of left femur: UOC consulted and patient was medically optimized for surgery now POD#3 s/p intertrochanteric nailing with Dr. Rehman. Had a drop in Hgb (9.7-7.7) that may be acute blood loss from procedure but somewhat late presentation concerning for continued bleeding at the operative site vs. possible but less likely a GI bleed w/ history of metastatic colon cancer although there is a lack of black or bloody stool which we would expect. - CT abd/pelvis initially showed: L intertrochanteric fx. Femur XR: acute impacted and angulated intratrochanteric fx of left femur - CT LT femur on 11/08 showed edema but no hematoma or bleed - recheck of Hgb at noon was 7.5 - type and cross, patient verbally consented to blood - patient has a anaphylactic reaction to iodinated contrast media - Ordered a CT abd/pelvis w/o contrast and CT leg LT w/o contrast to evaluate for acute bleed. - patient was on Heparin due to elevated troponin and anginal symptoms, this was stopped this morning after getting the low hgb. result - pain control with Dilaudid 0.25-0.5mg Q1H PRN, added on Acetaminophen 650 Q6H scheduled as a base for pain control - Vitamin D level 16.6 L - PT/OT order placed, unable to evaluate due to patient alertness (3) Acute hypokalemia: Unclear cause but patient has had past issues with compliance. ?lasix use alone but patient reports dose not recently changed. - initially potassium 2.7 . - 4 this AM - will continue to monitor with AM BMP (4) Atrial flutter: Chronic atrial fibrillation however currently appears to be in flutter. Either way she appears rate controlled on her current medical regimen and digoxin level WNL. - She is on chronic anticoagulation with warfarin which was reversed for her operation. - restarted Warfarin with INR 1.3 today - Consulted cardiology (5) Chronic HFrEF (heart failure with reduced ejection fraction): Appears euvolemic on exam rather than in acute exacerbation. She notes she takes lasix 40mg PO BID and spironolactone 12.5mg PO daily -> on hold currently - Troponin elevated at 0.19 w/ upper abdominal pain, but troponin found to be downtrending and symptoms resolved, continue to monitor for symptoms - stopped 100 mL/hr [id number], continue to evaluated fluid status - soft blood pressures currently - if blood pressures drop w/ systolics below 80 mmHg consider small bolus of 250 mL and reevaluate lung sounds (6) Mitral regurgitation: - as above; makes it more likely she will end up having some pulmonary edema as we attempt to rehydrate her/bolus her (7) Colorectal cancer, stage IV: Hold further chemotherapy (capecitabine) at this time to enable fracture healing. - Concerning that fracture may be pathological. (8) Diabetes mellitus, type II: Hyperglycemia and ketones noted on admission, no anion gap however so suspect she lives with a very elevated glucose and patient does note hypoglycemic symptoms when glucose < 200 therefore she aims to keep her glucose higher. - pH 7.44 on admission therefore not in DKA. - Appreciate glycemic control management - HbA1C 14 (9) Asthma: - Continue Breo Ellipta (10) ANA (obstructive sleep apnea): Historical diagnosis although she still wears CPAP at home this has not been retested and she has lost considerable amounts of weight due to her cancer. - Will keep on continuous pulse Ox overnight and if desaturating can order CPAP here otherwise patient may use her own if a family member brings it in. (11) Hypothyroidism: Patient on enormous dose of Synthroid - Per note by [employer] Dr. Zimmerman 10/30/2018 she had a TSH of 11.4 in 2001 and she was started on a 100 mcg dose of Synthroid initially that was titrated up. 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 - TSH 0.087 FT4 >8 on admission - attempt to call [facility] endocrinology to get further information about patients Synthroid dose. - TSH ordered for the AM. (12) GERD (gastroesophageal reflux disease): Switch omeprazole for pantoprazole as per hospital formulary (13) DVT prophylaxis: Initially INR 3.0. Reversed with Vit K 5mg IV prior to surgery - 1.3 today - back on home dose - PT INR daily (14) Discharge planning issues: PT/OT post operatively - Possible need for placement on discharge. (15) Chest pain: Patient admitted chest pain 2 days prior - troponin 0.19 found to be downtrending - placed on therapeutic therapeutic Heparin, this was discontinued due to drop in Hgb - continue to reassess for chest pain - added ASA 81 mg and Atorvastatin 40 mg - cardiology consulted and made aware (16) Hypotension: Was having low blood pressures (70's systolic) post operatively that were responding to a 250 mL bolus. This is potentially due to post operative blood loss vs. pain medication. Continue to monitor blood pressure and give small bolus and reassess patient. - decreased dose of Metoprolol from 50 mg to 25 mg AM starting 11/08 (17) Dysphagia: Nurse identified that patient is coughing with pills. Differential includes oversedation with pain medication, underlying issue with dysphagia, r/o stroke although no focal findings on physical exam and patient is on therapeutic heparin. - speech evaluation done, okay to advance diet as tolerated by patient - CT head with no intracranial findings (18) Encephalopathy acute: multifactorial encephalopathy s/p procedure on pain medication in a patient with history of metastatic colon cancer. - non con head CT w/ no intracranial findings - waxing and waning course consistent with delirium, overall improved from days prior (19) Thrush: Found to have thrush on speech evaluation - patient unable to have thin liquids, so unable to give nystatin swish and swallow - normal LFT's on admission. - gave loading dose of Fluconazole IV 200 mg and will check CMP in the AM. Supervising Physician Co-Signing Physician Notes I personally examined the patient and verified all aguirre points of history and exam, discussed case, and agree with decision making with Dr Basurto. more alert but worse pain - after clarification pain almost entirely in L hip. pain meds help when she gets them but when they wear off pain worse again. Vitals noted in nad, laying in bed on side. nc at mmm. cardio reg no r/m/g. lungs cta b/l no r/r/w good effort. abd soft nd nt no masses. ext no c/c. diffuse edema although no bruising L leg. cn 2-12 grossly intact and shows no new gross deficits acute blood loss anemia - recheck consistent. fortunately not showing hemodynamic instability. femur most likely culprit, no diarrhea/melena/hematochezia so GI not likely, retroperitoneal possible due to frailty and metastatic malignancy. surprising/reassuring that her HR and BP have been good - follow closely and transfuse if she shows any instability. CT a/p and femur (again) to eval for hematoma - mostly because where blood may be accumulating would likely impact immediate management with coumadin; hold heparin for now. delirium/metabolic encephalopathy - multifactorial. supportive care/reorientation as best as possible. unstable angina - med management as best as possible. fortunately troponin did not rise to much significance. now pain free and anemia worsened - cautiously holding heparin gtt for now Hip fracturepresumed osteoporotic (concern also for pathologic related to the malignancy but given that there was no metastatic deposit noted on the CT scans that did show the fracture, this seems less likely). POD3. PT/OT eval and treat ongoing, supportive care. Secondary risk reduction (osteoporosis w/u and treatment as outpt, start vitamin D, manage thyroid disease. Hypothyroidismnow markedly hyperthyroid. It appears she has had significant ups and downs with her TSHs over the years, and 1 of my colleagues will take care of her before was able to discern that she believes she has some type of genetic disorder there is a sister has as well, but there was also concern about compliance at that time. Now she certainly has a suppressed TSH with an undetectably high free T4, suggesting that even if she has some sort of genetic disorder compromising her sensitivity to levothyroxine she is overtreated at this time. Certainly that would be a major risk for osteoporosis. Hold Synthroid for now, continue to follow, it appears that her PCPs office is prescribing the Synthroid but she has seen [facility] endocrinology beforewaiting records. For now hold Synthroid and follow, likely will need to resume at a lower dose, but it is unclear exactly what this will be. TSH in AM - unclear how much or little this may help delineate resumption of synthroid until we are able to discuss w her endocrine team, but since TSH is a fairly dynamic hormone (countered by synthroid being a very long half-life drug) a TSH after she's been off her home dose several days posslby could help guide her current status. unclear benefit/guidance from T4 at this point - will hold on that until/unless endocrine notes it would be helpful. baseline uncontrolled type 2 diabetescontinue insulin management for now - s ugars continue to overall be under control. A. fibfortunately in spite of her marked hyperthyroidism she is not tachycardic. Rate is controlled, anticoagulation decisions will be based on cause/progress of anemia. for now heparin on hold, coumadin hold today. DVT prophylaxisanticoagulation as possible as above Chronic systolic CHF (otherwise known as HFrEF) euvolemic. follow. delirium - surprisingly seems much more clear today uncontrolled pain - scheduled tylenol, dilauded prn (has not had prn very often - can definitely give more if her pain requires it in the short term) Otherwise as above Subjective Luisa Bernard has much improved mentation this morning from days prior. She does complain of pain and states that she feels like she was hit by a "Mac truck". The pain is in her left leg. She denied any chest or abdominal pain. Review of Systems Constitutional: no fever and no chills Respiratory: no cough denies shortness of breath Cardiovascular: no chest pain and no palpitations Gastrointestinal: no nausea and no vomiting Physical Exam Constitutional: + thin Eyes: PERRL and EOM intact bilaterally ENMT: external ear and nose normal, oropharynx normal Neck: normal visual inspection and trachea midline Respiratory: normal respiratory effort, lungs clear to auscultation Cardiovascular: RRR, no murmur, no edema Rate/Rhythm: + irregularly irregular Heart Sounds: no gallop and no cardiac rub Extremities: no edema Gastrointestinal (Abdomen): Percussion/Palpation: abdomen soft; abdomen nontender, no guarding and abdomen not rigid normal bowel sound and slightly tender to palpation of the lower quadrants. Skin: no rashes, warm and dry left leg well healed incision with no surrounding erythema or significant bruising, very tender. Neurologic: CN's II-XI intact bilaterally Psychiatric: Orientation: alert Affect: + flat affect Results & Data ([facility]) Vital Signs (Past 12 Hours) Vital Signs Temp Pulse Pulse Resp BP Pulse Ox 11/09/19 12:12 79 11/09/19 12:00 36.7 C 75 18 100/65 100 11/09/19 08:50 71 11/09/19 08:00 36.7 C 72 18 98/65 L 100 11/09/19 04:59 78 108/67 11/09/19 03:38 36.6 C 62 20 96/63 L 100 Resident Activity Tracking Resident Involvement: Resident Care Provided Care Provided: Adult Hospital Medicine (1) Diabetes mellitus, type II Diabetes mellitus complication status: with hyperglycemia Diabetes mellitus intermediate project manager insulin use: with intermediate project manager use Qualified Code(s): E11.65 - Type 2 diabetes mellitus with hyperglycemia; Z79.4 - correction (current) use of insulin (2) Atrial flutter Atrial flutter type: typical Qualified Code(s): I48.3 - Typical atrial flutter (3) Hypothyroidism Hypothyroidism type: acquired Qualified Code(s): E03.9 - Hypothyroidism, unspecified (4) Mitral regurgitation Cardiac valve disease etiology: nonrheumatic Qualified Code(s): I34.0 - Nonrheumatic mitral (valve) insufficiency (5) GERD (gastroesophageal reflux disease) Esophagitis presence: without esophagitis Qualified Code(s): K21.9 - Gastro- esophageal reflux disease without esophagitis (6) Fall Encounter type: initial encounter Qualified Code(s): W19.XXXA - Unspecified fall, initial encounter (7) Asthma Asthma complication type: uncomplicated Asthma persistence: intermittent Asthma severity: unspecified severity Qualified Code(s): J45.20 - Mild intermittent asthma, uncomplicated (8) Intertrochanteric fracture of left femur Encounter type: initial encounter Fracture alignment: displaced Fracture type: closed Qualified Code(s): S72.142A - Displaced intertrochanteric fracture of left femur, initial encounter for closed fracture
[2019-11-09] MEDS: HYDROmorphone INJ 0.5 MG/0.5 ML SYR IV PRN ×2 (13:52→17:26)
--- NOTE | 2019-11-09 14:00 | Billing Data ---
Date of Service November 09, 2019 Coding Level of Care Code 70696 Subseq Hosp Care Lvl 3
--- NOTE | 2019-11-09 14:58 | Pharmacy Report ---
Pharmacy Glycemic Short Note 2 - Date of Service November 09, 2019 - Glycemic Short BSG Results (Last 24 hours): 11/08/19 11/08/19 11/09/19 16:20 20:49 06:49 Glucose 91 POC Glucose 149 H 230 H 11/09/19 11/09/19 07:33 11:39 Glucose POC Glucose 104 H 195 H OUTPATIENT ANTIDIABETIC REGIMEN: * Lantus 45u HS + Novolog SSI ASSESSMENT: * Pt received 34 units of insulin yesterday with decent glycemic control * Fasting BSG of 104 mg/dL is near goal. Lantus was decreased the past two days. Continue ordered dose for now. * Post prandial BSGs are mostly at goal. Minimal carbohydrate intake. PLAN FOR INPATIENT GLYCEMIC CONTROL: * Basal insulin * Lantus 25 units SQ daily * Bolus insulin * NovoLog per scale ACHS or Q6hrs while NPO * Goal Range: Low 110 mg/dL - High 140 mg/dL * Correction Factor: 20 mg/dL/unit * Nutritional / Prandial insulin per carb ratio of 1 unit per 4 grams CHO consumed
--- NOTE | 2019-11-09 15:49 | CT Scan Report ---
CT OF THE ABDOMEN AND PELVIS WITHOUT CONTRAST CLINICAL HISTORY: Concern for bleeding. Metastatic disease. COMPARISON STUDY: CT of the abdomen and pelvis November 05, 2019. TECHNIQUE: Axial images of the abdomen and pelvis were obtained without IV contrast. Images were revi ewed in the axial, sagittal, and coronal planes. Automated exposure control was utilized for the dominique dy. A dose lowering technique was utilized adhering to the principles of ALARA. FINDINGS: Please note that the CT of the left femur will be reported separately. A right lower lobe n odule is similar to CT of November 05, 2019. The previously described hepatic lesions not well visuali zed on this exam given lack of contrast and motion artifact. There are gallstones within the gallblad hillary. There is no evidence for acute cholecystitis. Upper abdominal collaterals are noted. Unenhanced images of the spleen, adrenal glands and kidneys are normal. Pancreas glandular atrophy is noted. No hemoperitoneum or pneumoperitoneum is present. There is no evidence for a bowel obstruction. There is no retroperitoneal hematoma. Irregular soft tissue within the presacral space which abuts the paper sales manager ior rectal wall is similar to prior exam. Postoperative findings at this level are noted. There is an asarca. Lucent lesions within the right acetabulum are unchanged. Intertrochanteric fracture of the l eft femur is better depicted on the CT of the left femur. Several lumbar spine compression deformitie s are unchanged. IMPRESSION: 1. No acute findings within the abdomen or pelvis on unenhanced exam. No retroperitoneal hematoma. No hemoperitoneum. 2. No change in findings suggestive of metastatic disease, as described above, since CT of November. 3. Status post internal fixation of an intertrochanteric fracture of the left femur which is better d epicted on the CT of the left femur. Please see that report for further discussion. ACT 112: Negative or not required by law. Electronically signed by: Humberto Montanez M.D. 11/09/2019 3:47 PM
--- NOTE | 2019-11-09 15:59 | CT Scan Report ---
CT femur LT wo con CLINICAL HISTORY: concern for bleeding COMPARISON STUDY: CT of the left femur November 08, 2019. TECHNIQUE: Axial images of the left femur were obtained without IV contrast. Sagittal and coronal rec onstructions were viewed. Automated exposure control was utilized for the study. A dose lowering breanna hnique was utilized adhering to the principles of ALARA. FINDINGS: Left knee arthroplasty is noted. There is also a distal left femoral lateral reconstruction plate with screws. Incompletely healed transverse fracture of the metadiaphysis of the left femur is unchanged since CT of November 08, 2019. Left femoral intramedullary nail fixates the intertrochanter ic fracture of the left femur which is unchanged in appearance. Diffuse edema of the left thigh is no chico with minimal soft tissue gas. The CT of the abdomen and pelvis will be reported separately. A Fol ey balloon within the bladder is noted. No significant hematoma is identified. IMPRESSION: 1. Status post internal fixation of the intertrochanteric fracture of the left femur. Hardware intact . Diffuse left thigh edema which has increased since exam of November 08, 2019. No significant hematom a. 2. No change in appearance of an incompletely healed transverse fracture of the distal metadiaphysis of the left femur status post internal fixation. ACT 112: Negative or not required by law. Electronically signed by: Humberto Montanez M.D. 11/09/2019 3:58 PM
[2019-11-09] MEDS: INSULIN GLARGINE SOLOSTAR 100 UNITS/ML 3 ML PEN SC SCH (17:22)
[2019-11-09] MEDS: WARFARIN SOD 2 MG TAB PO SCH (17:23)
[2019-11-10 00:13] LABS: Hematocrit (blood only) 19.9 % (37-47); Hemoglobin 7.1 g/dL (12.0-16.0)
[2019-11-10] MEDS: ACETAMINOPHEN 325 MG TAB PO SCH ×4 (00:13→17:17)
[2019-11-10] MEDS ORDERED: SODIUM CHLORIDE 0.9% 250 ML IV PRN (00:48)
--- NOTE | 2019-11-10 00:57 | Communication Note ---
Date of Service: November 10, 2019 Critical hct, hgb 7.1. Corrected hct predicted hgb 6.6. Cr/BUN ratio increased, so suspect this is likely more concentrated as well. Pt with downtrending hgb over prior 2 days. Consented for blood, transfused x1 unit. Pt denies prior blood transfusions. No active signs of bleeding on physical exam.
[2019-11-10 06:42] LABS: Basophils # (auto) 0.01 K/uL (0-0.2); Basophils % (auto) 0.1 %; Eosinophils # (auto) 0.27 K/uL (0-0.5); Eosinophils % (auto) 3.5 %; Hematocrit (blood only) 25.2 % (37-47); Hemoglobin 8.8 g/dL (12.0-16.0); Immature Granulocytes # (auto) 0.04 K/uL (0.00-0.02); Immature Granulocytes % (auto) 0.5 %; Lymphocytes # (auto) 1.84 K/uL (1.2-3.4); Lymphocytes % (auto) 23.9 %; Mean Corpuscular Hemoglobin 33.5 pg (25-34); Mean Corpuscular Hgb Conc 34.9 g/dL (32-36); Mean Corpuscular Volume 95.8 fL (80-100); Mean Platelet Volume 9.3 fL (7.4-10.4); Monocytes # (auto) 0.69 K/uL (0.11-0.59); Neutrophils # (auto) 4.85 K/uL (1.4-6.5); Platelet Count 184 K/uL (130-400); RDW Standard Deviation 65.4 fL (36.4-46.3); Red Blood Count 2.63 M/uL (4.2-5.4)
[2019-11-10 06:51] LABS: INR 1.6 (0.9-1.1); Prothrombin Time 15.5 Seconds (9.0-12.0)
[2019-11-10] MEDS: CARBOHYDRATES FOR HYPOGLYCEMIA PO PRN (07:09)
[2019-11-10 07:17] LABS: BUN Creatinine Ratio 42.1 (10-20); Calcium 8.6 mg/dl (8.5-10.1); Creatinine Clr Calc Pharmacy 92.3 ml/min; Est GFR (African American) 122.4; Est GFR (Non-African American) 105.6; Potassium 4.1 mmol/L (3.5-5.1)
[2019-11-10 07:27] LABS: Thyroid Stimulating Hormone 0.146 uIu/ml (0.300-4.500)
[2019-11-10] MEDS ORDERED: GLUCOSE 10 TABS/TUBE PO PRN (07:30)
[2019-11-10] MEDS ORDERED: DEXTROSE 50% 50 ML SYRINGE IV PRN (07:30)
[2019-11-10] MEDS ORDERED: GLUCAGON FOR INJ 1 MG VIAL IM PRN (07:30)
[2019-11-10] MEDS ORDERED: GLUCOSE 40% GEL 15 GM TUBE PO PRN (07:30)
[2019-11-10] MEDS: HEPARIN 100 UNIT/ML 5ML FLUSH FLUSH PRN ×2 (07:53→11:08)
[2019-11-10] MEDS: INSULIN ASPART 100 UNITS/ML 3 ML PEN SC SCH ×4 (08:48→21:45)
[2019-11-10] MEDS: CHOLECALCIFEROL 1,000 UNITS 25 MCG TAB PO SCH (08:49)
[2019-11-10] MEDS: FOLIC ACID 1 MG TAB PO SCH (08:49)
[2019-11-10] MEDS: ASPIRIN 81 MG ECTAB PO SCH (08:49)
[2019-11-10] MEDS: MAGNESIUM OXIDE 400 MG TAB PO SCH (08:49)
[2019-11-10] MEDS: FLUTICASONE/VILANTEROL 100/25MCG 14 PUFFS/INHALER INH SCH (08:50)
[2019-11-10] MEDS: ATORVASTATIN 40 MG TAB PO SCH (08:51)
[2019-11-10] MEDS: PSYLLIUM 58.6% POWDER PACKET PO SCH (08:52)
[2019-11-10] MEDS: PANTOprazole 40 MG TAB PO SCH (08:52)
[2019-11-10] MEDS: DIGOXIN 0.125 MG TAB PO SCH (08:52)
--- NOTE | 2019-11-10 08:53 | Pharmacy Report ---
Pharmacy Glycemic Short Note 2 - Date of Service November 10, 2019 - Glycemic Short BSG Results (Last 24 hours): 11/09/19 11/09/19 11/09/19 11:39 16:46 20:04 Glucose POC Glucose 195 H 171 H 79 11/10/19 11/10/19 11/10/19 06:17 07:04 07:06 Glucose 66 L POC Glucose 66 L* 67 L* 11/10/19 07:23 Glucose POC Glucose 84 OUTPATIENT ANTIDIABETIC REGIMEN: * Lantus 45u HS + Novolog SSI ASSESSMENT: 11/10 * Patient is currently receiving an average of 35-50 units of insulin per day * 25 units of basal insulin * 24 units of prandial/correctional insulin * BSGs ranging 66-195 over the past 24hrs * Risk factors for insulin resistance are decreasing over the past 24hrs * Dextrose containing IVF (heparin drip) D/C * Anticipating insulin regimen will need decreased for the next 24hrs d/t : * AM Fasting BSG = 66 therefore Basal insulin needs decreased * BSGs trending downwards throughout the day (insulin stacking) therefore Loosen CR 11/09 * Pt received 34 units of insulin yesterday with decent glycemic control * Fasting BSG of 104 mg/dL is near goal. Lantus was decreased the past two days. Continue ordered dose for now. * Post prandial BSGs are mostly at goal. Minimal carbohydrate intake. PLAN FOR INPATIENT GLYCEMIC CONTROL: * Basal insulin - decrease by 20% * Lantus 20 units SQ daily * Bolus insulin - loosen CR * NovoLog per scale ACHS or Q6hrs while NPO * Goal Range: Low 110 mg/dL - High 140 mg/dL * Correction Factor: 20 mg/dL/unit * Nutritional / Prandial insulin per carb ratio of 1 unit per 5 grams CHO consumed * Confirmed with resident that pharmacy to continue managing insulin
--- NOTE | 2019-11-10 09:49 | Cardiology Progress Note ---
Date of Service November 10, 2019 Assessment & Plan (1) Atrial flutter: (2) Chronic HFrEF (heart failure with reduced ejection fraction): (3) Intertrochanteric fracture of left femur: (4) Colorectal cancer, stage IV: Patient is back on oral metoprolol. Continue heparin to Coumadin, INR was 1.6. Transient chest discomfort this admission, perhaps due to dysphasia/thrush. Mild, blunted troponin elevation noted consistent with her cardiomyopathy, without findings to suggest unstable angina. 3.1-second pause during sleep is acceptable. Continue prior to hospital dose of metoprolol and digoxin. If there are concerns of bradycardia future, with low threshold for discontinuing the digoxin in order to simplify her medication regimen. Subjective Left leg pain currently relatively controlled. Denies cardiac symptoms. Telemetry reveals rate controlled atrial fibrillation for the most part 70 be per minute range. The patient did have a 3.1-second pause at 2:09 AM while sleeping. Physical Exam Physical Exam: Temp Pulse Resp BP Pulse Ox 36.5 C 54 L 18 100/61 100 11/10/19 07:08 11/10/19 08:52 11/10/19 07:08 11/10/19 07:08 11/10/19 07:08 Constitutional: + ill appearing and + cachectic Respiratory: normal respiratory effort, lungs clear to auscultation Cardiovascular: Rate/Rhythm: regular rhythm Heart Sounds: + murmur (1/6 systolic murmur) Vessels: no JVD Extremities: no edema Gastrointestinal (Abdomen): normal bowel sounds, soft, nontender, no hepatosplenomegaly Neurologic: PERRL, EOMI, accommodation nl, no face palsy, no dysarthria Results & Data Vital Signs (Past 12 Hours) Vital Signs Temp Pulse Pulse Pulse Resp BP BP 11/10/19 08:52 54 L 11/10/19 07:08 36.5 C 55 L 18 100/61 11/10/19 04:45 36.4 C L 48 L 16 100/64 11/10/19 03:59 49 L 20 95/62 L 11/10/19 03:30 36.3 C L 65 16 99/58 L 11/10/19 02:58 36.7 C 45 L 12 94/53 L 11/10/19 02:29 36.5 C 43 L 14 94/61 L 11/10/19 02:14 36.7 C 47 L 14 86/51 L 11/10/19 01:56 36.6 C 54 L 14 96/67 L 11/09/19 23:00 36.4 C L 53 L 14 96/58 L Pulse Ox 11/10/19 08:52 11/10/19 07:08 100 11/10/19 04:45 11/10/19 03:59 100 11/10/19 03:30 11/10/19 02:58 100 11/10/19 02:29 11/10/19 02:14 100 11/10/19 01:56 100 11/09/19 23:00 100 Laboratory Results Coagulation 11/10/19 Range/Units 06:17 PT 15.5 H (9.0-12.0) Seconds CBC 11/09/19 11/09/19 11/10/19 Range/Units 11:32 23:34 06:17 WBC 7.70 (4.8-10.8) K/uL RBC 2.63 L (4.2-5.4) M/uL Hgb 7.5 L 7.1 L 8.8 L (12.0-16.0) g/dL Hct 21.6 L 19.9 L* 25.2 L (37-47) % Plt Count 184 (130-400) K/uL Neut # (Auto) 4.85 (1.4-6.5) K/uL Lymph # (Auto) 1.84 (1.2-3.4) K/uL [place] # (Auto) 0.69 H (0.11-0.59) K/uL Eos # (Auto) 0.27 (0-0.5) K/uL Baso # (Auto) 0.01 (0-0.2) K/uL Comprehensive Metabolic Panel 11/10/19 Range/Units 06:17 Sodium 140 (136-145) mmol/L Potassium 4.1 (3.5-5.1) mmol/L Chloride 108 H (98-107) mmol/L Carbon Dioxide 28 (21-32) mmol/L BUN 23 H (7-18) mg/dl Creatinine 0.55 L (0.6-1.2) mg/dl Glucose 66 L (70-99) mg/dl Calcium 8.6 (8.5-10.1) mg/dl Intake and Output 11/09/19 11/10/19 11/10/19 22:59 06:59 14:59 Intake Total 360 / 929.817 310 / 929.817 Output Total 150 / 1100 750 / 1100 Balance 210 / -170.183 -440 / -170.183 Intake: Oral 360 / 360 Intake (Blood Product) Amt 310 / 310 Packed Cells, Leukoreduced 310 / 310 Unit [id number] Output: Urine Amount (Catheter) 150 / 1100 750 / 1100 Hirsch/Indwelling 150 / 1100 750 / 1100 Other: Weight 58.2 kg (1) Atrial flutter Atrial flutter type: typical Qualified Code(s): I48.3 - Typical atrial flutter (2) Intertrochanteric fracture of left femur Encounter type: initial encounter Fracture type: closed Fracture alignment: displaced Qualified Code(s): S72.142A - Displaced intertrochanteric fracture of left femur, initial encounter for closed fracture
--- NOTE | 2019-11-10 12:21 | Electrocardiogram Report ---
Test Reason : Blood Pressure : / mmHG Vent. Rate : 061 BPM Atrial Rate : 000 BPM P-R Int : 000 ms QRS Dur : 078 ms QT Int : 504 ms P-R-T Axes : 000 015 222 degrees QTc Int : 507 ms Atrial fibrillation Low voltage QRS Prolonged QT Abnormal ECG When compared with ECG of 07-NOV-2019 14:48, Criteria for Septal infarct are no longer Present QT has lengthened Confirmed by Kenton Reilly ([id number]) on 11/10/2019 12:21:26 PM Referred By: REFERRED SELF Confirmed By:Kenton Reilly
--- NOTE | 2019-11-10 12:57 | Hospitalist Progress Note ---
Date of Service November 10, 2019 Assessment & Plan (1) Intertrochanteric fracture of left femur: 53 yo F w/ metastatic colon cancer stage IV, lung cancer, A. fib, heart failure with reduced ejection fraction, IDDM type II, Asthma, ANA, Hypothyroid, GERD, presenting with left hip pain after fall on walker while on Coumadin. Appears mechanical due to her walker slipping out from under her, however certainly her electrolyte abnormalities and hyperglycemia may be contributory. Other thoughts include pathologic fracture from metastatic disease and osteoporosis potentially driven by elevated thyroid levels. Intertrochanteric fracture of left femur: - POD#4 s/p intertrochanteric nailing with Dr. Rehman - CT abd/pelvis initially showed: L intertrochanteric fx. Femur XR: acute impacted and angulated intratrochanteric fx of left femur - CT LT femur on 11/08 showed edema but no hematoma or bleed - stopped Dilaudid 0.25-0.5mg due to hypotension; continued Acetaminophen 650 Q6H, and Roxanol 5mg Q2h - PT/OT order placed, previously unable to evaluate due to patient alertness Acute blood loss anemia: - determined that overnight her true hgb was approx 6.6 - CT abd/pelvis w/o contrast and CT leg LT w/o contrast to evaluate for acute bl eed. - patient received 1unit of PRBCs overnight, with improvement in hgb to 8.8 this AM - continue to monitor A fib: - patient is rate controlled, and has become periodically bradycardic on her current medical regimen and digoxin level WNL - bradycardia seems ?if 2/2 Dilaudid or continued digoxin dosing - continued Warfarin with INR 1.6 - Cardiology consulted: hold digoxin if worried about continued bradycardia Chronic HF with reduced EF: - Appears euvolemic on exam rather than in acute exacerbation. - holding lasix 40mg PO BID and spironolactone 12.5mg PO daily - stopped 100 mL/hr D5NSS, continue to evaluated fluid status - soft blood pressures currently - if blood pressures drop w/ systolics below 80 mmHg consider small bolus of 250 mL and reevaluate lung sounds Colorectal cancer, stage IV: Hold further chemotherapy (capecitabine) at this time to enable fracture healing. - Concerning that fracture may be pathological. T2DM: - Had one episode of hypoglycemia this AM, was on Lantus 25u daily; reduced to 20u daily - HbA1C 14 Asthma: - Continue Breo Ellipta Hypothyroid: - Per note by [employer] Dr. Zimmerman 10/30/2018 she had a TSH of 11.4 in 2001 and she was started on a 100 mcg dose of Synthroid initially that was titrated up. 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 - TSH 0.087 FT4 >8; repeat TSH 0.146 - attempt to call [facility] [address] endocrinology to get further information about patients Synthroid dose Hypotension: - continue Metoprolol 25 mg AM Diet: Carb consistent, Heart healthy DVT ppx: on Warfarin Code: Full code (2) Acute blood loss anemia: (3) Atrial flutter: (4) Chronic HFrEF (heart failure with reduced ejection fraction): (5) Colorectal cancer, stage IV: (6) Diabetes mellitus, type II: (7) Asthma: (8) Hypothyroidism: (9) Hypotension: Admission and Anticipated Discharge Date Admission Date: November 05, 2019 Supervising Physician Co-Signing Physician Notes Resident Physician Supervision Note: I independently interviewed and examined the patient and verified the aguirre history and physical, reviewed labs and image studies, discussed the case with the resident Dr. Villarreal and agree with the findings and care plan. Subjective Overnight patient was transfused 1 unit packed red blood cells, as at that time she had a called hemoglobin of 7.1. Throughout this time patient has remained without concern other than continued pain within left hip, knee, and ankle. This pain resolves with repositioning. Was receiving Dilaudid for continued pain control but did not require pain medication throughout the day. Review of Systems Constitutional: no fever, no chills and no sweats Eyes: no diplopia, no photophobia and no spots in vision Respiratory: no cough, no dyspnea and no wheezing Cardiovascular: no chest pain, no palpitations and no syncope Gastrointestinal: no abdominal pain, no nausea and no vomiting Musculoskeletal: as per Subjective / HPI Physical Exam Constitutional: WD/WN, vitals as above Eyes: PERRL, conjunctivae normal, anicteric sclerae Respiratory: normal respiratory effort, lungs clear to auscultation Cardiovascular: Rate/Rhythm: regular rate and regular rhythm Heart Sounds: normal S1 and normal S2; no gallop, no murmur and no cardiac rub Musculoskeletal: Hip: + surgical incision (well approximated with livan); no effusion, no skin erythema and no ecchymosis Knee: no effusion, no skin erythema and no ecchymosis Ankle: no deformity, no effusion, no skin erythema, no ecchymosis, no joint line tenderness (ankle) and squeeze test negative Skin: no rashes, warm and dry Results & Data ([facility]) Vital Signs (Past 12 Hours) Vital Signs Temp Pulse Pulse Resp BP BP Pulse Ox 11/10/19 11:05 36.3 C L 60 19 106/63 100 11/10/19 08:52 54 L 11/10/19 08:00 58 L 11/10/19 07:08 36.5 C 55 L 18 100/61 100 11/10/19 04:45 36.4 C L 48 L 16 100/64 100 11/10/19 03:59 49 L 20 95/62 L 100 11/10/19 03:30 36.3 C L 65 16 99/58 L 100 11/10/19 02:58 36.7 C 45 L 12 94/53 L 100 11/10/19 02:29 36.5 C 43 L 14 94/61 L 100 11/10/19 02:14 36.7 C 47 L 14 86/51 L 100 11/10/19 01:56 36.6 C 54 L 14 96/67 L 100 Laboratory Results 11/10/19 11/10/19 11/10/19 Range/Units 16:27 11:27 07:23 WBC (4.8-10.8) K/uL RBC (4.2-5.4) M/uL Hgb (12.0-16.0) g/dL Hct (37-47) % MCV (80-100) fL MCH (25-34) pg MCHC (32-36) g/dL RDW Std Deviation (36.4-46.3) fL RDW Coeff of Stanley (11.5-14.5) % Plt Count (130-400) K/uL MPV (7.4-10.4) fL Immature Gran % (Auto) % Neut % (Auto) % Lymph % (Auto) % Sequoyah % (Auto) % Eos % (Auto) % Baso % (Auto) % Immature Gran # (Auto) (0.00-0.02) K/uL Neut # (Auto) (1.4-6.5) K/uL Lymph # (Auto) (1.2-3.4) K/uL Sequoyah # (Auto) (0.11-0.59) K/uL Eos # (Auto) (0-0.5) K/uL Baso # (Auto) (0-0.2) K/uL PT (9.0-12.0) Seconds INR (0.9-1.1) Sodium (136-145) mmol/L Potassium (3.5-5.1) mmol/L Chloride (98-107) mmol/L Carbon Dioxide (21-32) mmol/L Anion Gap (3-11) BUN (7-18) mg/dl Creatinine (0.6-1.2) mg/dl Est Cr Clr Drug Dosing ml/min Est GFR ( Amer) Est GFR (Non-Af Amer) BUN/Creatinine Ratio (10-20) Glucose (70-99) mg/dl POC Glucose 129 H 211 H 84 (70-99) mg/dl Calcium (8.5-10.1) mg/dl TSH (0.300-4.500) uIu/ml Blood Type Antibody Screen Crossmatch 11/10/19 11/10/19 11/10/19 Range/Units 07:06 07:04 06:17 WBC (4.8-10.8) K/uL RBC (4.2-5.4) M/uL Hgb (12.0-16.0) g/dL Hct (37-47) % MCV (80-100) fL MCH (25-34) pg MCHC (32-36) g/dL RDW Std Deviation (36.4-46.3) fL RDW Coeff of Stanley (11.5-14.5) % Plt Count (130-400) K/uL MPV (7.4-10.4) fL Immature Gran % (Auto) % Neut % (Auto) % Lymph % (Auto) % Sequoyah % (Auto) % Eos % (Auto) % Baso % (Auto) % Immature Gran # (Auto) (0.00-0.02) K/uL Neut # (Auto) (1.4-6.5) K/uL Lymph # (Auto) (1.2-3.4) K/uL Sequoyah # (Auto) (0.11-0.59) K/uL Eos # (Auto) (0-0.5) K/uL Baso # (Auto) (0-0.2) K/uL PT (9.0-12.0) Seconds INR (0.9-1.1) Sodium 140 (136-145) mmol/L Potassium 4.1 (3.5-5.1) mmol/L Chloride 108 H (98-107) mmol/L Carbon Dioxide 28 (21-32) mmol/L Anion Gap 5.0 (3-11) BUN 23 H (7-18) mg/dl Creatinine 0.55 L (0.6-1.2) mg/dl Est Cr Clr Drug Dosing 92.3 ml/min Est GFR ( Amer) 122.4 Est GFR (Non-Af Amer) 105.6 BUN/Creatinine Ratio 42.1 H (10-20) Glucose 66 L (70-99) mg/dl POC Glucose 67 L* 66 L* (70-99) mg/dl Calcium 8.6 (8.5-10.1) mg/dl TSH 0.146 L (0.300-4.500) uIu/ml Blood Type Antibody Screen Crossmatch 11/10/19 11/10/19 11/09/19 Range/Units 06:17 06:17 23:34 WBC 7.70 (4.8-10.8) K/uL RBC 2.63 L (4.2-5.4) M/uL Hgb 8.8 L 7.1 L (12.0-16.0) g/dL Hct 25.2 L 19.9 L* (37-47) % MCV 95.8 D (80-100) fL MCH 33.5 (25-34) pg MCHC 34.9 (32-36) g/dL RDW Std Deviation 65.4 H (36.4-46.3) fL RDW Coeff of Stanley 19.0 H (11.5-14.5) % Plt Count 184 (130-400) K/uL MPV 9.3 (7.4-10.4) fL Immature Gran % (Auto) 0.5 % Neut % (Auto) 63.0 % Lymph % (Auto) 23.9 % Sequoyah % (Auto) 9.0 % Eos % (Auto) 3.5 % Baso % (Auto) 0.1 % Immature Gran # (Auto) 0.04 H (0.00-0.02) K/uL Neut # (Auto) 4.85 (1.4-6.5) K/uL Lymph # (Auto) 1.84 (1.2-3.4) K/uL Sequoyah # (Auto) 0.69 H (0.11-0.59) K/uL Eos # (Auto) 0.27 (0-0.5) K/uL Baso # (Auto) 0.01 (0-0.2) K/uL PT 15.5 H (9.0-12.0) Seconds INR 1.6 H (0.9-1.1) Sodium (136-145) mmol/L Potassium (3.5-5.1) mmol/L Chloride (98-107) mmol/L Carbon Dioxide (21-32) mmol/L Anion Gap (3-11) BUN (7-18) mg/dl Creatinine (0.6-1.2) mg/dl Est Cr Clr Drug Dosing ml/min Est GFR ( Amer) Est GFR (Non-Af Amer) BUN/Creatinine Ratio (10-20) Glucose (70-99) mg/dl POC Glucose (70-99) mg/dl Calcium (8.5-10.1) mg/dl TSH (0.300-4.500) uIu/ml Blood Type Antibody Screen Crossmatch 11/09/19 11/09/19 Range/Units 20:04 11:32 WBC (4.8-10.8) K/uL RBC (4.2-5.4) M/uL Hgb (12.0-16.0) g/dL Hct (37-47) % MCV (80-100) fL MCH (25-34) pg MCHC (32-36) g/dL RDW Std Deviation (36.4-46.3) fL RDW Coeff of Stanley (11.5-14.5) % Plt Count (130-400) K/uL MPV (7.4-10.4) fL Immature Gran % (Auto) % Neut % (Auto) % Lymph % (Auto) % Sequoyah % (Auto) % Eos % (Auto) % Baso % (Auto) % Immature Gran # (Auto) (0.00-0.02) K/uL Neut # (Auto) (1.4-6.5) K/uL Lymph # (Auto) (1.2-3.4) K/uL Sequoyah # (Auto) (0.11-0.59) K/uL Eos # (Auto) (0-0.5) K/uL Baso # (Auto) (0-0.2) K/uL PT (9.0-12.0) Seconds INR (0.9-1.1) Sodium (136-145) mmol/L Potassium (3.5-5.1) mmol/L Chloride (98-107) mmol/L Carbon Dioxide (21-32) mmol/L Anion Gap (3-11) BUN (7-18) mg/dl Creatinine (0.6-1.2) mg/dl Est Cr Clr Drug Dosing ml/min Est GFR ( Amer) Est GFR (Non-Af Amer) BUN/Creatinine Ratio (10-20) Glucose (70-99) mg/dl POC Glucose 79 (70-99) mg/dl Calcium (8.5-10.1) mg/dl TSH (0.300-4.500) uIu/ml Blood Type A Negative Antibody Screen NEGATIVE Crossmatch See Detail Resident Activity Tracking Resident Involvement: Resident Care Provided Care Provided: Adult Hospital Medicine (1) Diabetes mellitus, type II Diabetes mellitus complication status: with hyperglycemia Diabetes mellitus mcfp insulin use: with mcfp use Qualified Code(s): E11.65 - Type 2 diabetes mellitus with hyperglycemia; Z79.4 - senior living (current) use of insulin (2) Atrial flutter Atrial flutter type: typical Qualified Code(s): I48.3 - Typical atrial flutter (3) Hypothyroidism Hypothyroidism type: acquired Qualified Code(s): E03.9 - Hypothyroidism, uns pecified (4) Asthma Asthma complication type: uncomplicated Asthma persistence: intermittent Asthma severity: unspecified severity Qualified Code(s): J45.20 - Mild intermittent asthma, uncomplicated (5) Intertrochanteric fracture of left femur Encounter type: initial encounter Fracture alignment: displaced Fracture type: closed Qualified Code(s): S72.142A - Displaced intertrochanteric fracture of left femur, initial encounter for closed fracture
[2019-11-10] MEDS ORDERED: INSULIN GLARGINE SOLOSTAR 100 UNITS/ML 3 ML PEN SC SCH ×2 (16:30)
[2019-11-10] MEDS: WARFARIN SOD 2 MG TAB PO SCH (17:16)
[2019-11-11] MEDS: ACETAMINOPHEN 325 MG TAB PO SCH ×5 (01:13→23:37)
[2019-11-11] MEDS: CARBOHYDRATES FOR HYPOGLYCEMIA PO PRN (04:21)
[2019-11-11 06:22] LABS: Basophils # (auto) 0.01 K/uL (0-0.2); Basophils % (auto) 0.1 %; Eosinophils % (auto) 2.6 %; Hematocrit (blood only) 26.4 % (37-47); Hemoglobin 8.8 g/dL (12.0-16.0); Immature Granulocytes # (auto) 0.06 K/uL (0.00-0.02); Immature Granulocytes % (auto) 0.8 %; Lymphocytes # (auto) 1.83 K/uL (1.2-3.4); Lymphocytes % (auto) 23.8 %; Mean Corpuscular Hemoglobin 32.8 pg (25-34); Mean Corpuscular Hgb Conc 33.3 g/dL (32-36); Mean Corpuscular Volume 98.5 fL (80-100); Mean Platelet Volume 9.2 fL (7.4-10.4); Monocytes # (auto) 0.74 K/uL (0.11-0.59); Monocytes % (auto) 9.6 %; Neutrophils # (auto) 4.86 K/uL (1.4-6.5); Neutrophils % (auto) 63.1 %; Platelet Count 204 K/uL (130-400); RDW Coefficient of Variation 19.5 % (11.5-14.5); RDW Standard Deviation 70.1 fL (36.4-46.3); Red Blood Count 2.68 M/uL (4.2-5.4)
[2019-11-11 06:31] LABS: Prothrombin Time 19.7 Seconds (9.0-12.0)
[2019-11-11 06:50] LABS: BUN Creatinine Ratio 23.7 (10-20); Calcium 8.3 mg/dl (8.5-10.1); Creatinine Clr Calc Pharmacy 60.8 ml/min; Est GFR (African American) 94.1; Est GFR (Non-African American) 81.2; Potassium 4.5 mmol/L (3.5-5.1)
[2019-11-11] MEDS: HEPARIN 100 UNIT/ML 5ML FLUSH FLUSH PRN (07:58)
--- NOTE | 2019-11-11 08:19 | Communication Note ---
Date of Service: November 11, 2019 Brace fitted by [facility] yesterday. Pt can be up to chair or PT NWB LLE with brace on locked in extension. Orthopedics will sign off at this time. In structions placed in EHR dc section. F/U with Dr Rehman in 2 weeks from the day of surgery.
[2019-11-11] MEDS: INSULIN ASPART 100 UNITS/ML 3 ML PEN SC SCH ×4 (08:56→20:41)
--- NOTE | 2019-11-11 09:12 | Pharmacy Report ---
Pharmacy Glycemic Short Note 2 - Date of Service November 11, 2019 - Glycemic Short BSG Results (Last 24 hours): 11/10/19 11/10/19 11/10/19 11:27 16:27 20:10 Glucose POC Glucose 211 H 129 H 287 H 11/11/19 11/11/19 11/11/19 00:53 04:14 04:38 Glucose POC Glucose 101 H 69 L* 111 H 11/11/19 11/11/19 06:10 07:38 Glucose 116 H POC Glucose 115 H OUTPATIENT ANTIDIABETIC REGIMEN: * Lantus 45u HS + Novolog SSI ASSESSMENT: 11/11 * Patient is currently receiving an average of 45 units of insulin per day * 20 units of basal insulin * 26 units of prandial/correctional insulin * BSGs ranging 69-287 over the past 24hrs * Risk factors for insulin resistance are constant over the past 24hrs * Luisa had another episode of hypoglycemia overnight, 69 mg/dL, which I suspect is from the 13 units of correctional at bedtime in addition to her basal dose. Will plan to decrease basal further and loosen CF to prevent over-correction. Post-prandial BSGs were elevated so will tighten CR. 11/10 * Patient is currently receiving an average of 35-50 units of insulin per day * 25 units of basal insulin * 24 units of prandial/correctional insulin * BSGs ranging 66-195 over the past 24hrs * Risk factors for insulin resistance are decreasing over the past 24hrs * Dextrose containing IVF (heparin drip) D/C * Anticipating insulin regimen will need decreased for the next 24hrs d/t : * AM Fasting BSG = 66 therefore Basal insulin needs decreased * BSGs trending downwards throughout the day (insulin stacking) therefore Loosen CR 11/09 * Pt received 34 units of insulin yesterday with decent glycemic control * Fasting BSG of 104 mg/dL is near goal. Lantus was decreased the past two days. Continue ordered dose for now. * Post prandial BSGs are mostly at goal. Minimal carbohydrate intake. PLAN FOR INPATIENT GLYCEMIC CONTROL: * Basal insulin - decrease further, may need to eventually increase since multiple decreases made within a few days * Lantus 15 units SQ daily with dinner * Bolus insulin - loosen CF, tighten CR * NovoLog per scale ACHS or Q6hrs while NPO * Goal Range: Low 110 mg/dL - High 140 mg/dL * Correction Factor: 25 mg/dL/unit * Nutritional / Prandial insulin per carb ratio of 1 unit per 4 grams CHO consumed
[2019-11-11] MEDS: FLUTICASONE/VILANTEROL 100/25MCG 14 PUFFS/INHALER INH SCH (10:01)
[2019-11-11] MEDS: FOLIC ACID 1 MG TAB PO SCH (10:02)
[2019-11-11] MEDS: ASPIRIN 81 MG ECTAB PO SCH (10:02)
[2019-11-11] MEDS: DIGOXIN 0.125 MG TAB PO SCH (10:10)
[2019-11-11] MEDS: ATORVASTATIN 40 MG TAB PO SCH (10:11)
[2019-11-11] MEDS: MAGNESIUM OXIDE 400 MG TAB PO SCH (10:12)
[2019-11-11] MEDS: PSYLLIUM 58.6% POWDER PACKET PO SCH (10:12)
[2019-11-11] MEDS: CHOLECALCIFEROL 1,000 UNITS 25 MCG TAB PO SCH (10:13)
[2019-11-11] MEDS: PANTOprazole 40 MG TAB PO SCH (10:13)
[2019-11-11 10:50] LABS: Appearance Urine Cloudy (Clear); Bacteria Urine Automated 4+ (Negative); Bilirubin Urine Negative (Negative); Blood Urine Negative (Negative); Color Urine Dark Yellow; Glucose Urine UA Negative (Negative); Ketones Urine Negative (Negative); Leukocyte Esterase Urine 3+ (Negative); Nitrite Urine Positive (Negative); Protein Urine Trace (Negative); RBC Urine Automated 0-4 /hpf (0-4); Specific Gravity Urine 1.022 (1.000-1.030); Urobilinogen Urine Positive (Negative); WBC Urine Automated >30 /hpf (0-5)
[2019-11-11] MEDS: LACTASE 3000 UNIT TAB PO PRN (12:16)
--- NOTE | 2019-11-11 12:30 | Hospitalist Progress Note ---
Date of Service November 11, 2019 Assessment & Plan (1) Intertrochanteric fracture of left femur: 53 yo F w/ metastatic colon cancer stage IV, lung cancer, A. fib, heart failure with reduced ejection fraction, IDDM type II, Asthma, ANA, Hypothyroid, GERD, presenting with left hip pain after fall on walker while on Coumadin. Appears mechanical due to her walker slipping out from under her, however certainly her electrolyte abnormalities and hyperglycemia may be contributory. Other differential - pathologic fracture from metastatic disease and osteoporosis potentially driven by elevated thyroid levels. Intertrochanteric fracture of left femur: - s/p intertrochanteric nailing with Dr. Rehman - CT abd/pelvis initially showed: L intertrochanteric fx. Femur XR: acute impacted and angulated intratrochanteric fx of left femur - CT LT femur on 11/08 showed edema but no hematoma or bleed - continued Acetaminophen 650 Q6H scheduled, and PRN Roxanol 5mg Q2h - PT/OT order placed, worked with patient got patient to bedside chair Acute blood loss anemia: - CT abd/pelvis w/o contrast and CT leg LT w/o contrast to evaluate for acute bleed. - patient received 1unit of PRBCs overnight (11/09-11/10) due to determined true hgb 6.6with subsequent hgb of 8.8 on 11/10 - hgb 8.8 this AM - continue to monitor A fib: - patient is rate controlled, and has become periodically bradycardic on her current medical regimen and digoxin level WNL - bradycardia seems ?if 2/2 Dilaudid or continued digoxin dosing - holding Digoxin - continued Warfarin with INR 2.0 - Cardiology consulted: can hold digoxin if worried about continued bradycardia Chronic HF with reduced EF: - Appears euvolemic on exam rather than in acute exacerbation. - holding lasix 40mg PO BID and spironolactone 12.5mg PO daily - soft blood pressures currently - if blood pressures drop w/ systolics below 80 mmHg consider small bolus of 250 mL and reevaluate lung sounds Colorectal cancer, stage IV: Hold further chemotherapy (capecitabine) at this time to enable fracture healing. - Concerning that fracture may be pathological. T2DM: - Had one episode of hypoglycemia this overnight, was on Lantus 20u daily; reduced to 15u daily - HbA1C 14 Asthma: - Continue Breo Ellipta Hypothyroid: - Per note by Fib[employer] Product T[employer] Dr. Zimmerman 10/30/2018 she had a TSH of 11.4 in 2001 and she was started on a 100 mcg dose of Synthroid initially that was titrated up. 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 - TSH 0.087 FT4 >8; repeat TSH 0.146 Hypotension: - continue Metoprolol 25 mg AM Diet: Carb consistent, Heart healthy DVT ppx: on Warfarin INR 2.0 Code: Full code (2) Acute blood loss anemia: (3) Atrial flutter: (4) Chronic HFrEF (heart failure with reduced ejection fraction): (5) Colorectal cancer, stage IV: (6) Diabetes mellitus, type II: (7) Asthma: (8) Hypothyroidism: (9) Hypotension: Admission and Anticipated Discharge Date Admission Date: November 05, 2019 Supervising Physician Co-Signing Physician Notes Resident Physician Supervision Note: I independently interviewed and examined the patient and verified the aguirre history and physical, reviewed labs and image studies, discussed the case with the resident Dr. Villarreal and agree with the findings and care plan. Subjective Patient has remained with sole concern being continued pain within left hip, knee, and ankle; has not needed any pain medication overnight, and pain contin ues resolves with repositioning. Patient feels somewhat hopeless in the face of her perceived continued decline in ability to do anything without problems, first started to feel this way right after her fall that resulted in the hip fracture for this admission. Feels like she just can't and won't be able to do the things that she used to be able to do, and feels like this is a never ending cycle of decline. "Feel like I am going to be bed-bound for the rest of my life." Subsequently, did feel somewhat better after working with PT/OT and being able to sit in the chair. never had depression/depressive symptoms previously. Denies SI/HI. Review of Systems Review of Systems: All systems reviewed & are unremarkable except as noted in Subjective Physical Exam Constitutional: WD/WN, vitals as above Eyes: PERRL, conjunctivae normal, anicteric sclerae Respiratory: normal respiratory effort, lungs clear to auscultation Cardiovascular: Rate/Rhythm: regular rate and regular rhythm Heart Sounds: normal S1 and normal S2; no gallop, no murmur and no cardiac rub Musculoskeletal: Hip: + surgical incision (well approximated with livan); no effusion, no skin erythema and no ecchymosis Knee: no effusion, no skin erythema and no ecchymosis Ankle: no deformity, no effusion, no skin erythema, no ecchymosis, no joint line tenderness (ankle) and squeeze test negative Skin: no rashes, warm and dry Results & Data ([facility]) Vital Signs (Past 12 Hours) Vital Signs Temp Pulse Pulse Pulse Resp BP Pulse Ox 11/11/19 11:21 36.8 C 62 16 99/64 L 95 11/11/19 10:10 64 11/11/19 08:00 79 11/11/19 07:36 36.1 C L 71 20 116/70 99 11/11/19 04:00 36.7 C 61 16 97/59 L 99 Laboratory Results 11/11/19 11/11/19 11/11/19 Range/Units Unknown 11:34 07:38 WBC (4.8-10.8) K/uL RBC (4.2-5.4) M/uL Hgb (12.0-16.0) g/dL Hct (37-47) % MCV (80-100) fL MCH (25-34) pg MCHC (32-36) g/dL RDW Std Deviation (36.4-46.3) fL RDW Coeff of Stanley (11.5-14.5) % Plt Count (130-400) K/uL MPV (7.4-10.4) fL Immature Gran % (Auto) % Neut % (Auto) % Lymph % (Auto) % [place] % (Auto) % Eos % (Auto) % Baso % (Auto) % Immature Gran # (Auto) (0.00-0.02) K/uL Neut # (Auto) (1.4-6.5) K/uL Lymph # (Auto) (1.2-3.4) K/uL [place] # (Auto) (0.11-0.59) K/uL Eos # (Auto) (0-0.5) K/uL Baso # (Auto) (0-0.2) K/uL PT (9.0-12.0) Seconds INR (0.9-1.1) Sodium (136-145) mmol/L Potassium (3.5-5.1) mmol/L Chloride (98-107) mmol/L Carbon Dioxide (21-32) mmol/L Anion Gap (3-11) BUN (7-18) mg/dl Creatinine (0.6-1.2) mg/dl Est Cr Clr Drug Dosing ml/min Est GFR ( Amer) Est GFR (Non-Af Amer) BUN/Creatinine Ratio (10-20) Glucose (70-99) mg/dl POC Glucose 132 H 115 H (70-99) mg/dl Calcium (8.5-10.1) mg/dl Urine Color Dark Yellow Urine Appearance Cloudy A (Clear) Urine pH 7.0 (4.5-7.5) Ur Specific [place] 1.022 (1.000-1.030) Urine Protein Trace H (Negative) Urine Glucose (UA) Negative (Negative) Urine Ketones Negative (Negative) Urine Blood Negative (Negative) Urine Nitrite Positive A (Negative) Urine Bilirubin Negative (Negative) Urine Urobilinogen Positive H (Negative) Ur Leukocyte Esterase 3+ H (Negative) Urine WBC (Auto) >30 H (0-5) /hpf Urine RBC (Auto) 0-4 (0-4) /hpf U Hyaline Cast (Auto) 1-5 (0-5) /lpf U Epithel Cells (Auto) 5-10 H (0-5) /lpf Urine Bacteria (Auto) 4+ H (Negative) 11/11/19 11/11/19 11/11/19 Range/Units 06:10 06:10 06:10 WBC 7.70 (4.8-10.8) K/uL RBC 2.68 L (4.2-5.4) M/uL Hgb 8.8 L (12.0-16.0) g/dL Hct 26.4 L (37-47) % MCV 98.5 (80-100) fL MCH 32.8 (25-34) pg MCHC 33.3 (32-36) g/dL RDW Std Deviation 70.1 H (36.4-46.3) fL RDW Coeff of Stanley 19.5 H (11.5-14.5) % Plt Count 204 (130-400) K/uL MPV 9.2 (7.4-10.4) fL Immature Gran % (Auto) 0.8 % Neut % (Auto) 63.1 % Lymph % (Auto) 23.8 % [place] % (Auto) 9.6 % Eos % (Auto) 2.6 % Baso % (Auto) 0.1 % Immature Gran # (Auto) 0.06 H (0.00-0.02) K/uL Neut # (Auto) 4.86 (1.4-6.5) K/uL Lymph # (Auto) 1.83 (1.2-3.4) K/uL [place] # (Auto) 0.74 H (0.11-0.59) K/uL Eos # (Auto) 0.20 (0-0.5) K/uL Baso # (Auto) 0.01 (0-0.2) K/uL PT 19.7 H (9.0-12.0) Seconds INR 2.0 H (0.9-1.1) Sodium 139 (136-145) mmol/L Potassium 4.5 (3.5-5.1) mmol/L Chloride 106 (98-107) mmol/L Carbon Dioxide 28 (21-32) mmol/L Anion Gap 5.0 (3-11) BUN 19 H (7-18) mg/dl Creatinine 0.81 (0.6-1.2) mg/dl Est Cr Clr Drug Dosing 60.8 ml/min Est GFR ( Amer) 94.1 Est GFR (Non-Af Amer) 81.2 BUN/Creatinine Ratio 23.7 H (10-20) Glucose 116 H (70-99) mg/dl POC Glucose (70-99) mg/dl Calcium 8.3 L (8.5-10.1) mg/dl Urine Color Urine Appearance (Clear) Urine pH (4.5-7.5) Ur Specific [place] (1.000-1.030) Urine Protein (Negative) Urine Glucose (UA) (Negative) Urine Ketones (Negative) Urine Blood (Negative) Urine Nitrite (Negative) Urine Bilirubin (Negative) Urine Urobilinogen (Negative) Ur Leukocyte Esterase (Negative) Urine WBC (Auto) (0-5) /hpf Urine RBC (Auto) (0-4) /hpf U Hyaline Cast (Auto) (0-5) /lpf U Epithel Cells (Auto) (0-5) /lpf Urine Bacteria (Auto) (Negative) 11/11/19 11/11/19 11/11/19 Range/Units 04:38 04:14 00:53 WBC (4.8-10.8) K/uL RBC (4.2-5.4) M/uL Hgb (12.0-16.0) g/dL Hct (37-47) % MCV (80-100) fL MCH (25-34) pg MCHC (32-36) g/dL RDW Std Deviation (36.4-46.3) fL RDW Coeff of Stanely (11.5-14.5) % Plt Count (130-400) K/uL MPV (7.4-10.4) fL Immature Gran % (Auto) % Neut % (Auto) % Lymph % (Auto) % [place] % (Auto) % Eos % (Auto) % Baso % (Auto) % Immature Gran # (Auto) (0.00-0.02) K/uL Neut # (Auto) (1.4-6.5) K/uL Lymph # (Auto) (1.2-3.4) K/uL [place] # (Auto) (0.11-0.59) K/uL Eos # (Auto) (0-0.5) K/uL Baso # (Auto) (0-0.2) K/uL PT (9.0-12.0) Seconds INR (0.9-1.1) Sodium (136-145) mmol/L Potassium (3.5-5.1) mmol/L Chloride (98-107) mmol/L Carbon Dioxide (21-32) mmol/L Anion Gap (3-11) BUN (7-18) mg/dl Creatinine (0.6-1.2) mg/dl Est Cr Clr Drug Dosing ml/min Est GFR ( Amer) Est GFR (Non-Af Amer) BUN/Creatinine Ratio (10-20) Glucose (70-99) mg/dl POC Glucose 111 H 69 L* 101 H (70-99) mg/dl Calcium (8.5-10.1) mg/dl Urine Color Urine Appearance (Clear) Urine pH (4.5-7.5) Ur Specific [place] (1.000-1.030) Urine Protein (Negative) Urine Glucose (UA) (Negative) Urine Ketones (Negative) Urine Blood (Negative) Urine Nitrite (Negative) Urine Bilirubin (Negative) Urine Urobilinogen (Negative) Ur Leukocyte Esterase (Negative) Urine WBC (Auto) (0-5) /hpf Urine RBC (Auto) (0-4) /hpf U Hyaline Cast (Auto) (0-5) /lpf U Epithel Cells (Auto) (0-5) /lpf Urine Bacteria (Auto) (Negative) 11/10/19 11/10/19 Range/Units 20:10 16:27 WBC (4.8-10.8) K/uL RBC (4.2-5.4) M/uL Hgb (12.0-16.0) g/dL Hct (37-47) % MCV (80-100) fL MCH (25-34) pg MCHC (32-36) g/dL RDW Std Deviation (36.4-46.3) fL RDW Coeff of Stanley (11.5-14.5) % Plt Count (130-400) K/uL MPV (7.4-10.4) fL Immature Gran % (Auto) % Neut % (Auto) % Lymph % (Auto) % [place] % (Auto) % Eos % (Auto) % Baso % (Auto) % Immature Gran # (Auto) (0.00-0.02) K/uL Neut # (Auto) (1.4-6.5) K/uL Lymph # (Auto) (1.2-3.4) K/uL [place] # (Auto) (0.11-0.59) K/uL Eos # (Auto) (0-0.5) K/uL Baso # (Auto) (0-0.2) K/uL PT (9.0-12.0) Seconds INR (0.9-1.1) Sodium (136-145) mmol/L Potassium (3.5-5.1) mmol/L Chloride (98-107) mmol/L Carbon Dioxide (21-32) mmol/L Anion Gap (3-11) BUN (7-18) mg/dl Creatinine (0.6-1.2) mg/dl Est Cr Clr Drug Dosing ml/min Est GFR ( Amer) Est GFR (Non-Af Amer) BUN/Creatinine Ratio (10-20) Glucose (70-99) mg/dl POC Glucose 287 H 129 H (70-99) mg/dl Calcium (8.5-10.1) mg/dl Urine Color Urine Appearance (Clear) Urine pH (4.5-7.5) Ur Specific [place] (1.000-1.030) Urine Protein (Negative) Urine Glucose (UA) (Negative) Urine Ketones (Negative) Urine Blood (Negative) Urine Nitrite (Negative) Urine Bilirubin (Negative) Urine Urobilinogen (Negative) Ur Leukocyte Esterase (Negative) Urine WBC (Auto) (0-5) /hpf Urine RBC (Auto) (0-4) /hpf U Hyaline Cast (Auto) (0-5) /lpf U Epithel Cells (Auto) (0-5) /lpf Urine Bacteria (Auto) (Negative) Medications Administered Current Inpatient Medications Acetaminophen (Tylenol) 650 mg PO Q6 REPLACED BY [facility] Stop: 12/09/19 12:14 Last Admin: 11/11/19 12:16 Dose: 650 mg Documented by: Albuterol (Ventolin Hfa) 2 - 4 puffs INH Q6H PRN PRN Reason: Wheezing Stop: 12/05/19 14:33 Aspirin (Ecotrin Ectab) 81 mg PO [facility] Stop: 12/07/19 14:44 Last Admin: 11/11/19 10:02 Dose: 81 mg Documented by: Atorvastatin Calcium ([facility]) [facility] [place]: 12/07/19 14:44 Last Admin: 11/11/19 10:11 Dose: 40 mg Documented by: Bisacodyl (Dulcolax) 10 mg RI DAILY PRN PRN Reason: Constipation Stop: 12/05/19 14:33 Last Admin: 11/11/19 04:45 Dose: 10 mg Documented by: Dextrose (Dextrose 50%) 25 - 50 ml IV UD PRN; Protocol PRN Reason: Hypoglycemia Protocol Stop: 12/10/19 07:29 Digoxin (Lanoxin) 0.[facility] Stop: 12/06/19 08:59 Last Admin: 11/11/19 10:10 Dose: 0.125 mg Documented by: Docusate Sodium (Colace) 100 mg PO BID PRN PRN Reason: Constipation Stop: 03/07/20 08:59 Last Admin: 11/11/19 01:17 Dose: 100 mg Documented by: Ergocalciferol (Vitamin D2) 50,000 units PO Fr@0900 REPLACED BY [facility] Stop: 12/07/19 08:59 Last Admin: 11/07/19 10:00 Dose: 50,000 units Documented by: Fluticasone/Vilanterol (Breo Ellipta 100/25 Mcg Inh) 1 puffs INH DAILY REPLACED BY [facility] Stop: 12/06/19 08:59 Last Admin: 11/11/19 10:01 Dose: 1 puffs Documented by: Folic Acid (Folvite) 1 mg PO QAM REPLACED BY [facility] Stop: 12/07/19 08:59 Last Admin: 11/11/19 10:02 Dose: 1 mg Documented by: Glucagon (Glucagen) 1 mg IM UD PRN; Protocol PRN Reason: Hypoglycemia Protocol Stop: 12/10/19 07:29 Glucose (Glucose 40%) 15 - 30 gm PO UD PRN; Protocol PRN Reason: Hypoglycemia Protocol Stop: 12/10/19 07:29 Glucose (Dex4 Glucose) 4 - 8 tabs PO UD PRN; Protocol PRN Reason: Hypoglycemia Protocol Stop: 12/10/19 07:29 Heparin Sodium (Porcine) (Heparin Sod 100 Unit/Ml Flush) 5 ml FLUSH PRN PRN PRN Reason: Flush Stop: 12/08/19 00:29 Last Admin: 11/11/19 07:58 Dose: 5 ml Documented by: Insulin Aspart (Novolog Flexpen) 0 units SC ACHS REPLACED BY [facility]; Protocol Stop: 12/06/19 16:29 Last Admin: 11/11/19 12:16 Dose: 4 units Documented by: Insulin Glargine (Lantus Solostar Pen) 15 units SC QDD REPLACED BY [facility]; Protocol Stop: 12/11/19 16:29 Lactase (Lactaid) 9,000 units PO AC PRN PRN Reason: Stomach Upset Stop: 12/05/19 23:27 Last Admin: 11/11/19 12:16 Dose: 9,000 units Documented by: Magnesium Hydroxide (Milk Of Magnesia) 30 ml PO Q12H PRN PRN Reason: Constipation Stop: 12/05/19 14:33 Last Admin: 11/11/19 01:17 Dose: 30 ml Documented by: Magnesium Oxide (Mag-Ox) 400 mg PO QAM REPLACED BY [facility] Stop: 12/06/19 08:59 Last Admin: 11/11/19 10:12 Dose: 400 mg Documented by: Metoprolol Succinate (Toprol Xl) 25 mg PO [facility] Stop: 12/08/19 08:59 Last Admin: 11/08/19 09:48 Dose: Not Given Documented by: Miscellaneous (Carbohydrates For Hypoglycemia) 15 - 30 gm PO UD PRN PRN Reason: Hypoglycemia Treatment Stop: 12/10/19 07:29 Last Admin: 11/11/19 04:21 Dose: 15 gm Documented by: Miscellaneous Information (Consult Glycemic Management Pharmacy) 1 ea N/A UD PRN PRN Reason: Consult Stop: 12/05/19 15:20 Morphine Sulfate (Roxanol) 5 mg PO Q2H PRN PRN Reason: Pain Stop: 11/24/19 11:17 Naloxone HCl (Narcan) 0.1 mg IV UD PRN PRN Reason: Opioid Overdose Stop: 12/06/19 14:45 Ondansetron HCl (Zofran) 4 mg IV Q6H PRN PRN Reason: Nausea Stop: 12/05/19 14:33 Last Admin: 11/08/19 23:39 Dose: 4 mg Documented by: Pantoprazole Sodium (Protonix) 40 mg PO [facility] Stop: 12/06/19 08:59 Last Admin: 11/11/19 10:13 Dose: 40 mg Documented by: Polyethylene Glycol (Miralax Powder Packet) 17 gm PO DAILY PRN PRN Reason: Constipation Stop: 12/05/19 14:33 Prochlorperazine (Compazine) 10 mg PO Q6H PRN PRN Reason: Nausea Stop: 12/05/19 14:33 Psyllium Hydrophilic Mucilloid (Metamucil) 1 pkt PO DAILY REPLACED BY [facility]; Protocol Stop: 12/06/19 08:59 Last Admin: 11/11/19 10:12 Dose: 1 pkt Documented by: Simethicone (Mylicon) 120 mg PO Q6H PRN; Protocol PRN Reason: Gastrointestinal Spasms Or Resident Care Manager Stop: 12/05/19 14:33 Trazodone HCl (Desyrel) 50 mg PO HS PRN PRN Reason: Sleep Stop: 12/05/19 14:33 Vitamin D (Vitamin D3) 2,000 units PO [facility] Stop: 12/07/19 08:59 Last Admin: 11/11/19 10:13 Dose: 2,000 units Documented by: Warfarin Sodium (Coumadin) 2 mg PO DAILY@1600 REPLACED BY [facility] Stop: 12/07/19 15:59 Last Admin: 11/10/19 17:16 Dose: 2 mg Documented by: Resident Activity Tracking Resident Involvement: Resident Care Provided Care Provided: Adult [facility] (1) Diabetes mellitus, type II Diabetes mellitus complication status: with hyperglycemia Diabetes mellitus vermin exterminator insulin use: with vermin exterminator use Qualified Code(s): E11.65 - Type 2 diabetes mellitus with hyperglycemia; Z79.4 - [facility]FP (current) use of insulin (2) Atrial flutter Atrial flutter type: typical Qualified Code(s): I48.3 - Typical atrial flutter (3) Hypothyroidism Hypothyroidism type: acquired Qualified Code(s): E03.9 - Hypothyroidism, unspecified (4) Asthma Asthma complication type: uncomplicated Asthma persistence: intermittent Asthma severity: unspecified severity Qualified Code(s): J45.20 - Mild intermittent asthma, uncomplicated (5) Intertrochanteric fracture of left femur Encounter type: initial encounter Fracture alignment: displaced Fracture type: closed Qualified Code(s): S72.142A - Displaced intertrochanteric fracture of left femur, initial encounter for closed fracture
--- NOTE | 2019-11-11 13:16 | Internal Medicine Consult Note ---
Date of Consultation November 11, 2019 Assessment & Plan (1) Encounter for rehabilitation evaluation: Her disease state is very advanced. Pre-hospital performance status extremely poor. I do not believe she will able to perform the needed activities to participate in the rehab hospital level of therapy. A more conservative and comfort oriented post-discharge destination is recommended. History of Present Illness Reason for Consultation: High Risk Patient for rehab evaluation Attending Physician: Amanda Bettencourt MD History of Present Illness Asked to evaluate medical suitability for the rehab hospital program. Left hip fracture in the setting of metastatic colon cancer with associated cardiac dysfunction, DM and chronic anticoagulation. Her performance prior to the fracture was very poor. Utilized a walker for simple transfers. Pain and debilitation secondary to her metastatic disease was substantial. Her performance status was very low. She is not totally debilitated and unable to perform independent ADLs. Allergies Allergy/AdvReac Type Severity Reaction Status Date / Time daptomycin Allergy Severe SHORTNESS Verified 11/06/19 09:43 OF BREATH Iodinated Contrast Media Allergy Severe Anaphylaxis Verified 11/06/19 09:43 bee venom protein (honey bee) Allergy Intermediate HIVES Verified 11/06/19 09:43 clindamycin Allergy Intermediate HIVES Verified 11/06/19 09:43 Sulfa (Sulfonamide Allergy Intermediate BACTRIM-HIV Verified 11/06/19 09:43 Antibiotics) ES trimethoprim Allergy Intermediate HIVES Verified 11/06/19 09:43 vancomycin Allergy Intermediate RASH Verified 11/06/19 09:43 dulaglutide AdvReac Severe BRAND-TRULICITY, Verified 11/06/19 09:43 SEVERE GI UPSET, CONSTIPATION Home Medications Home Medications Medication Instructions Recorded Confirmed Type Breo Ellipta 1 inh INHALATION DAILY MDD 1 dose 06/11/18 11/05/19 History in 24 hours albuterol sulfate [Ventolin HFA] 2 - 4 puff INHALATION Q6H PRN 06/11/18 11/05/19 History insulin aspart U-100 [Novolog 1 sliding scale dose SUBCUT TID 06/11/18 11/05/19 History PenFill U-100 Insulin] magnesium oxide 400 mg PO QAM 06/11/18 11/05/19 History digoxin 125 mcg (0.125 mg) tablet 0.125 mg PO QAM 11/28/18 11/05/19 History acetaminophen 500 mg PO Q4 PRN 01/15/19 11/05/19 History furosemide 40 mg PO UD 01/15/19 11/05/19 History psyllium husk [Fiber-Caps 0.52 g PO DAILY 01/15/19 11/05/19 History (psyllium husk)] spironolactone 12.5 mg PO DAILY 01/15/19 11/05/19 History capecitabine 500 mg tablet 1,500 mg PO BID tab 05/28/19 11/05/19 History prochlorperazine maleate 10 mg 10 mg PO Q6H PRN 05/28/19 11/05/19 History tablet insulin glargine 100 unit/mL (3 45 units SUBCUT HS #0 ml 06/17/19 11/05/19 Rx mL) subcutaneous pen Oxygen Home #1 ea 07/01/19 10/22/19 History docusate sodium 100 mg capsule 100 mg PO Q2D cap 07/01/19 11/05/19 History diphenhydramine HCl 25 mg capsule 25 mg PO Q8H PRN 07/02/19 11/05/19 History ferrous sulfate 325 mg (65 mg 325 mg PO QAM tab 07/02/19 11/05/19 History iron) tablet metoprolol succinate 25 mg 50 mg PO QAM tab 07/02/19 11/05/19 History tablet,extended release 24 hr oxycodone 5 mg capsule 5 mg PO DAILY 07/02/19 11/05/19 History sucralfate 1 gram tablet 1 gm PO ONCE PRN tab 07/02/19 11/05/19 History trazodone 50 mg tablet 50 mg PO DAILY PRN 07/02/19 11/05/19 History lactase [Lactaid] 9,000 unit PO AC PRN 08/26/19 11/05/19 History potassium chloride 20 meq PO QAM 08/26/19 11/05/19 History simethicone 125 mg PO DAILY PRN 08/26/19 11/05/19 History blood-glucose meter #1 ea 09/18/19 10/22/19 Rx lancets #400 ea 09/18/19 10/22/19 Rx blood sugar diagnostic #400 ea 09/26/19 10/22/19 Rx levothyroxine 1,200 mcg PO QAM 10/07/19 11/05/19 History omeprazole 40 mg PO DAILY 10/07/19 11/05/19 History warfarin 1 mg tablet 2 mg PO DAILY tab 10/13/19 11/05/19 History Patient History Medical History Anasarca (Acute) Anemia (Acute) Arthritis (Acute) Asthma (Acute) Atrial fibrillation C. difficile colitis Chronic HFrEF (heart failure with reduced ejection fraction) Colon carcinoma metastatic to multiple sites (Chronic) Depression (Acute) Diabetes mellitus, type II (Acute) Dyslipidemia (Chronic) Dysphagia (Acute) Esophagitis (Resolved) GERD (gastroesophageal reflux disease) (Chronic) H/O: lung cancer Left s/p L VATS Hepatitis (Chronic) HTN (hypertension) (Chronic) Hypothyroidism (Inactive) FPC (current) use of anticoagulants (Acute) Lung cancer (Chronic) Metastatic colon cancer in female lung mets Mitral regurgitation (Chronic) "echo 10/14/15: mild-mod mitral regurg " Moderate protein malnutrition (Inactive) Morbid obesity MRSA colonization (Acute) Multiple pulmonary nodules determined by computed tomography of lung (Chronic) Obesity (BMI 30.0-34.9) (Inactive) ANA (obstructive sleep apnea) (Chronic) Periprosthetic fracture around internal prosthetic knee joint (Acute) 01/16/2019. GETA. MAC 3, grade 2 view. 7.0ETT. Rectal pain (Acute) Surgical History H/O carpal tunnel repair H/O total hysterectomy History of cardiac cath History of closure of ileostomy History of colostomy reversal History of ear surgery Eustachian tube History of laparotomy History of lung surgery History of surgical procedure Venous access port placement S/P colectomy S/P debridement Abdomen S/P T&A (status post tonsillectomy and adenoidectomy) S/P total knee arthroplasty Bilateral Family History Sister Hypothyroidism Myocardial infarction Mother Hypothyroidism Father Myocardial infarction Other Coronary heart disease DM II (diabetes mellitus, type II), controlled Social History Preferred Language: Wolof Communication Ability: Effective Lining Strap Closer Required: No Beliefs That Will Affect Care: None marital status: Current Living Situation: Spouse current occupational status: unemployed and disabled Other Information That Helps Us Care for You: No Feels Safe at Home: Yes Safety Concerns: Feels Safe At This Time Smoking Status: Never smoker Do You Dip or Chew Tobacco: No ; Second Hand Exposure: No ; Tobacco Cessation Education Requested by Patient: No Hx Alcohol Use: No Hx Substance Use: No caffeine: Yes Dental Care, Regularly: No Physical Activity Frequency: Does not Exercise Seatbelt Use: never Sunscreen Use: Yes Review of Systems Review of Systems: Profound debilitation Physical Exam Physical Exam: extremely frail and chronically ill appearing nutritional status appears poor with profound muscle wasting HEENT--no new focal changes Cardio--volume status stable Pulmonary--exchange is fair GI--functional Neuro--profound weakness Results & Data Vital Signs (Past 12 Hours) Vital Signs Temp Pulse Pulse Pulse Resp BP Pulse Ox 11/11/19 11:21 36.8 C 62 16 99/64 L 95 11/11/19 10:10 64 11/11/19 08:00 79 11/11/19 07:36 36.1 C L 71 20 116/70 99 11/11/19 04:00 36.7 C 61 16 97/59 L 99
--- NOTE | 2019-11-11 13:57 | Communication Note ---
Date of Service: November 11, 2019 Digoxin discontinued due to concerns of borderline bradycardia, and an effort to simplify her medication regimen. We can always add it back if her heart rate becomes elevated.
[2019-11-11] MEDS ORDERED: INSULIN GLARGINE SOLOSTAR 100 UNITS/ML 3 ML PEN SC SCH (16:30)
[2019-11-11] MEDS: WARFARIN SOD 2 MG TAB PO SCH (17:24)
[2019-11-11] MEDS: MoRPHine SULFATE 5 MG/0.25 ML UDP PO PRN (20:52)
[2019-11-12 03:24] LABS: Basophils # (auto) 0.01 K/uL (0-0.2); Basophils % (auto) 0.1 %; Eosinophils # (auto) 0.29 K/uL (0-0.5); Eosinophils % (auto) 3.8 %; Hematocrit (blood only) 26.6 % (37-47); Hemoglobin 9.1 g/dL (12.0-16.0); Immature Granulocytes # (auto) 0.05 K/uL (0.00-0.02); Immature Granulocytes % (auto) 0.7 %; Lymphocytes # (auto) 2.03 K/uL (1.2-3.4); Lymphocytes % (auto) 26.6 %; Mean Corpuscular Hemoglobin 33.7 pg (25-34); Mean Corpuscular Hgb Conc 34.2 g/dL (32-36); Mean Corpuscular Volume 98.5 fL (80-100); Mean Platelet Volume 9.1 fL (7.4-10.4); Monocytes # (auto) 0.67 K/uL (0.11-0.59); Monocytes % (auto) 8.8 %; Neutrophils # (auto) 4.58 K/uL (1.4-6.5); Platelet Count 239 K/uL (130-400); RDW Coefficient of Variation 19.4 % (11.5-14.5); RDW Standard Deviation 68.9 fL (36.4-46.3); White Blood Count 7.63 K/uL (4.8-10.8)
[2019-11-12 03:35] LABS: INR 2.1 (0.9-1.1); Prothrombin Time 20.7 Seconds (9.0-12.0)
[2019-11-12 03:50] LABS: BUN Creatinine Ratio 34.5 (10-20); Calcium 8.6 mg/dl (8.5-10.1); Creatinine Clr Calc Pharmacy 96.6 ml/min; Est GFR (African American) 124.6; Est GFR (Non-African American) 107.5; Potassium 4.3 mmol/L (3.5-5.1)
[2019-11-12] MEDS: CARBOHYDRATES FOR HYPOGLYCEMIA PO PRN ×2 (03:55→04:10)
[2019-11-12] MEDS: ACETAMINOPHEN 325 MG TAB PO SCH ×3 (05:49→17:06)
[2019-11-12] MEDS: FLUTICASONE/VILANTEROL 100/25MCG 14 PUFFS/INHALER INH SCH (07:44)
[2019-11-12] MEDS: FOLIC ACID 1 MG TAB PO SCH (07:47)
[2019-11-12] MEDS: CHOLECALCIFEROL 1,000 UNITS 25 MCG TAB PO SCH (07:47)
[2019-11-12] MEDS: MAGNESIUM OXIDE 400 MG TAB PO SCH (07:47)
[2019-11-12] MEDS: PANTOprazole 40 MG TAB PO SCH (07:47)
[2019-11-12] MEDS: ATORVASTATIN 40 MG TAB PO SCH (07:47)
[2019-11-12] MEDS: PSYLLIUM 58.6% POWDER PACKET PO SCH (07:47)
[2019-11-12] MEDS: ASPIRIN 81 MG ECTAB PO SCH (07:47)
[2019-11-12] MEDS: INSULIN ASPART 100 UNITS/ML 3 ML PEN SC SCH ×4 (07:50→21:51)
[2019-11-12] MEDS: MoRPHine SULFATE 5 MG/0.25 ML UDP PO PRN ×2 (07:52→18:18)
--- NOTE | 2019-11-12 14:26 | Pharmacy Report ---
Pharmacy Glycemic Short Note 2 - Date of Service November 12, 2019 - Glycemic Short BSG Results (Last 24 hours): 11/11/19 11/11/19 11/11/19 16:10 16:10 19:35 Glucose POC Glucose 315 H* 326 H* 293 H 11/11/19 11/12/19 11/12/19 23:40 03:12 04:07 Glucose 59 L POC Glucose 117 H 69 L* 11/12/19 11/12/19 11/12/19 04:27 07:24 11:19 Glucose POC Glucose 131 H 124 H 133 H OUTPATIENT ANTIDIABETIC REGIMEN: * Lantus 45u HS + Novolog SSI ASSESSMENT: 11/12 * Patient received 61 units of insulin yesterday * 15 units of basal insulin * 46 units of prandial/correctional insulin * BSGs ranged from 69-315 over the past 24 hrs * Consistent risk factors for insulin resistance * Hypoglycemia again overnight, 59 on lab/69 on POC, suspect patient drops quicker overnight with correction- will loosen correction factor/carb ratio to 40/6 at HS. Will continue current lantus, if continued night-time low with the loosened novolog parameters will consider reducing further. 11/11 * Patient is currently receiving an average of 45 units of insulin per day * 20 units of basal insulin * 26 units of prandial/correctional insulin * BSGs ranging 69-287 over the past 24hrs * Risk factors for insulin resistance are constant over the past 24hrs * Luisa had another episode of hypoglycemia overnight, 69 mg/dL, which I suspect is from the 13 units of correctional at bedtime in addition to her basal dose. Will plan to decrease basal further and loosen CF to prevent over-correction. Post-prandial BSGs were elevated so will tighten CR. 11/10 * Patient is currently receiving an average of 35-50 units of insulin per day * 25 units of basal insulin * 24 units of prandial/correctional insulin * BSGs ranging 66-195 over the past 24hrs * Risk factors for insulin resistance are decreasing over the past 24hrs * Dextrose containing IVF (heparin drip) D/C * Anticipating insulin regimen will need decreased for the next 24hrs d/t : * AM Fasting BSG = 66 therefore Basal insulin needs decreased * BSGs trending downwards throughout the day (insulin stacking) therefore Loosen CR 11/09 * Pt received 34 units of insulin yesterday with decent glycemic control * Fasting BSG of 104 mg/dL is near goal. Lantus was decreased the past two days. Continue ordered dose for now. * Post prandial BSGs are mostly at goal. Minimal carbohydrate intake. PLAN FOR INPATIENT GLYCEMIC CONTROL: * Basal insulin - * Lantus 15 units SQ daily with dinner * Bolus insulin - loosen CF, tighten CR * NovoLog per scale AC or Q6hrs while NPO * Goal Range: Low 110 mg/dL - High 140 mg/dL * Correction Factor: 25 mg/dL/unit * Nutritional / Prandial insulin per carb ratio of 1 unit per 4 grams CHO consumed * HS: Goal Range: 120-160 mg/dL; correction factor: 40 mg/dL/unit; Nutrition al/Prandial insulin per carb ratio of 1 units per 6 grams of CHO consumed
[2019-11-12] MEDS: WARFARIN SOD 2 MG TAB PO SCH (16:21)
--- NOTE | 2019-11-12 17:44 | Hospitalist Progress Note ---
Date of Service November 12, 2019 Assessment & Plan (1) Intertrochanteric fracture of left femur: 53 yo F w/ metastatic colon cancer stage IV, lung cancer, A. fib, heart failure with reduced ejection fraction, IDDM type II, Asthma, ANA, Hypothyroid, GERD, presenting with left hip pain after fall on walker while on Coumadin. Appears mechanical due to her walker slipping out from under her, however certainly her electrolyte abnormalities and hyperglycemia may be contributory. Other thoughts include pathologic fracture from metastatic disease and osteoporosis potentially driven by elevated thyroid levels. Intertrochanteric fracture of left femur: - POD#6 s/p intertrochanteric nailing with Dr. Rehman - continued Acetaminophen 650 Q6H scheduled, and PRN Roxanol 5mg Q2h - PT/OT: worked with patient continuing to get patient to bedside Acute blood loss anemia: - CT abd/pelvis w/o contrast and CT leg LT w/o contrast to evaluate for acute bleed. - patient received 1unit of PRBCs overnight (11/09-11/10) due to determined true hgb 6.6, with subsequent hgb of 8.8 on 11/10 - hgb 9.1 this AM - continue to monitor A fib: - patient is rate controlled, and has become periodically bradycardic on her current medical regimen and digoxin level WNL - bradycardia seems ?if 2/2 Dilaudid or continued digoxin dosing - holding Digoxin - continued Warfarin with INR 2.1 - Cardiology consulted: hold digoxin, but can be restarted in the setting of returned tachycardia Chronic HF with reduced EF: - holding lasix 40mg PO BID and spironolactone 12.5mg PO daily - continues to have soft blood pressures - if blood pressures drop w/ systolics below 80 mmHg consider small bolus of 250 mL and reevaluate lung sounds Colorectal cancer, stage IV: - Hold further chemotherapy (capecitabine) at this time to promote continued fracture healing. - Concerning that fracture may be pathological T2DM: - continues to have large fluctuations in glucose control. During the evening today was hypoglycemic to 40 on POC stick - Glycemic management consulted: appreciate continued recs - HbA1C 14 Asthma: - Continue Breo Ellipta Hypothyroid: - Per note by Director [employer] Dr. Zimmerman 10/30/2018 she had a TSH of 11.4 in 2001 and she was started on a 100 mcg dose of Synthroid initially that was titrated up. 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 - TSH 0.087 FT4 >8; repeat TSH 0.146 Hypotension: - holding Metoprolol 25 mg in the setting of continued moderate blood pressure Vaginal swelling/redness - ? sec to irritation. follow Diet: Carb consistent, Heart healthy DVT ppx: on Warfarin INR 2.1 Code: Full code Admission and Anticipated Discharge Date Admission Date: November 05, 2019 Supervising Physician Co-Signing Physician Notes Resident Physician Supervision Note: I independently interviewed and examined the patient and verified the aguirre history and physical, reviewed labs and image studies, discussed the case with the resident Dr. Villarreal and agree with the findings and care plan. Subjective Patient continues to feel that she is struggling to move like she would want to at this point, has some continued soreness of her back, hip, and arms; feels like her back side is sore from where she is laying on it constantly. And feels considerable pain when she goes to the bathroom. Has had normal bowel movements per nursing that have remained soft in consistency. Review of Systems Review of Systems: All systems reviewed & are unremarkable except as noted in Subjective Physical Exam Constitutional: WD/WN, vitals as above Eyes: PERRL, conjunctivae normal, anicteric sclerae Respiratory: normal respiratory effort, lungs clear to auscultation Cardiovascular: Rate/Rhythm: regular rate and regular rhythm Heart Sounds: normal S1 and normal S2; no gallop, no murmur and no cardiac rub Musculoskeletal: Hip: + surgical incision (well approximated with livan); no effusion, no skin erythema and no ecchymosis Knee: no effusion, no skin erythema and no ecchymosis Ankle: no deformity, no effusion, no skin erythema, no ecchymosis, no joint line tenderness (ankle) and squeeze test negative Skin: pressure bandage over sacral spine; no pressure ulcer underneath dressing; some redness within gluteal crease Results & Data ([facility]) Vital Signs (Past 12 Hours) Vital Signs Temp Pulse Pulse Resp BP Pulse Ox 11/12/19 15:17 36.7 C 65 18 94/66 L 100 11/12/19 11:26 36.5 C 73 14 99/61 L 98 11/12/19 07:59 36.5 C 65 14 112/69 100 Laboratory Results 11/12/19 11/12/19 11/12/19 Range/Units 16:31 16:14 16:13 WBC (4.8-10.8) K/uL RBC (4.2-5.4) M/uL Hgb (12.0-16.0) g/dL Hct (37-47) % MCV (80-100) fL MCH (25-34) pg MCHC (32-36) g/dL RDW Std Deviation (36.4-46.3) fL RDW Coeff of Stanley (11.5-14.5) % Plt Count (130-400) K/uL MPV (7.4-10.4) fL Immature Gran % (Auto) % Neut % (Auto) % Lymph % (Auto) % [place] % (Auto) % Eos % (Auto) % Baso % (Auto) % Immature Gran # (Auto) (0.00-0.02) K/uL Neut # (Auto) (1.4-6.5) K/uL Lymph # (Auto) (1.2-3.4) K/uL [place] # (Auto) (0.11-0.59) K/uL Eos # (Auto) (0-0.5) K/uL Baso # (Auto) (0-0.2) K/uL PT (9.0-12.0) Seconds INR (0.9-1.1) Sodium (136-145) mmol/L Potassium (3.5-5.1) mmol/L Chloride (98-107) mmol/L Carbon Dioxide (21-32) mmol/L Anion Gap (3-11) BUN (7-18) mg/dl Creatinine (0.6-1.2) mg/dl Est Cr Clr Drug Dosing ml/min Est GFR ( Amer) Est GFR (Non-Af Amer) BUN/Creatinine Ratio (10-20) Glucose (70-99) mg/dl POC Glucose 221 H 44 L* 45 L* (70-99) mg/dl Calcium (8.5-10.1) mg/dl 11/12/19 11/12/19 11/12/19 Range/Units 11:19 07:24 04:27 WBC (4.8-10.8) K/uL RBC (4.2-5.4) M/uL Hgb (12.0-16.0) g/dL Hct (37-47) % MCV (80-100) fL MCH (25-34) pg MCHC (32-36) g/dL RDW Std Deviation (36.4-46.3) fL RDW Coeff of [place] (11.5-14.5) % Plt Count (130-400) K/uL MPV (7.4-10.4) fL Immature Gran % (Auto) % Neut % (Auto) % Lymph % (Auto) % [place] % (Auto) % Eos % (Auto) % Baso % (Auto) % Immature Gran # (Auto) (0.00-0.02) K/uL Neut # (Auto) (1.4-6.5) K/uL Lymph # (Auto) (1.2-3.4) K/uL [place] # (Auto) (0.11-0.59) K/uL Eos # (Auto) (0-0.5) K/uL Baso # (Auto) (0-0.2) K/uL PT (9.0-12.0) Seconds INR (0.9-1.1) Sodium (136-145) mmol/L Potassium (3.5-5.1) mmol/L Chloride (98-107) mmol/L Carbon Dioxide (21-32) mmol/L Anion Gap (3-11) BUN (7-18) mg/dl Creatinine (0.6-1.2) mg/dl Est Cr Clr Drug Dosing ml/min Est GFR ( Amer) Est GFR (Non-Af Amer) BUN/Creatinine Ratio (10-20) Glucose (70-99) mg/dl POC Glucose 133 H 124 H 131 H (70-99) mg/dl Calcium (8.5-10.1) mg/dl 11/12/19 11/12/19 11/12/19 Range/Units 04:07 03:12 03:12 WBC 7.63 (4.8-10.8) K/uL RBC 2.70 L (4.2-5.4) M/uL Hgb 9.1 L (12.0-16.0) g/dL Hct 26.6 L (37-47) % MCV 98.5 (80-100) fL MCH 33.7 (25-34) pg MCHC 34.2 (32-36) g/dL RDW Std Deviation 68.9 H (36.4-46.3) fL RDW Coeff of Stanley 19.4 H (11.5-14.5) % Plt Count 239 (130-400) K/uL MPV 9.1 (7.4-10.4) fL Immature Gran % (Auto) 0.7 % Neut % (Auto) 60.0 % Lymph % (Auto) 26.6 % [place] % (Auto) 8.8 % Eos % (Auto) 3.8 % Baso % (Auto) 0.1 % Immature Gran # (Auto) 0.05 H (0.00-0.02) K/uL Neut # (Auto) 4.58 (1.4-6.5) K/uL Lymph # (Auto) 2.03 (1.2-3.4) K/uL [place] # (Auto) 0.67 H (0.11-0.59) K/uL Eos # (Auto) 0.29 (0-0.5) K/uL Baso # (Auto) 0.01 (0-0.2) K/uL PT (9.0-12.0) Seconds INR (0.9-1.1) Sodium 139 (136-145) mmol/L Potassium 4.3 (3.5-5.1) mmol/L Chloride 107 (98-107) mmol/L Carbon Dioxide 30 (21-32) mmol/L Anion Gap 2.0 L (3-11) BUN 17 (7-18) mg/dl Creatinine 0.51 L D (0.6-1.2) mg/dl Est Cr Clr Drug Dosing 96.6 ml/min Est GFR ( Amer) 124.6 Est GFR (Non-Af Amer) 107.5 BUN/Creatinine Ratio 34.5 H (10-20) Glucose 59 L (70-99) mg/dl POC Glucose 69 L* (70-99) mg/dl Calcium 8.6 (8.5-10.1) mg/dl 11/12/19 11/11/19 Range/Units 03:12 23:40 WBC (4.8-10.8) K/uL RBC (4.2-5.4) M/uL Hgb (12.0-16.0) g/dL Hct (37-47) % MCV (80-100) fL MCH (25-34) pg MCHC (32-36) g/dL RDW Std Deviation (36.4-46.3) fL RDW Coeff of Stanley (11.5-14.5) % Plt Count (130-400) K/uL MPV (7.4-10.4) fL Immature Gran % (Auto) % Neut % (Auto) % Lymph % (Auto) % [place] % (Auto) % Eos % (Auto) % Baso % (Auto) % Immature Gran # (Auto) (0.00-0.02) K/uL Neut # (Auto) (1.4-6.5) K/uL Lymph # (Auto) (1.2-3.4) K/uL [place] # (Auto) (0.11-0.59) K/uL Eos # (Auto) (0-0.5) K/uL Baso # (Auto) (0-0.2) K/uL PT 20.7 H (9.0-12.0) Seconds INR 2.1 H (0.9-1.1) Sodium (136-145) mmol/L Potassium (3.5-5.1) mmol/L Chloride (98-107) mmol/L Carbon Dioxide (21-32) mmol/L Anion Gap (3-11) BUN (7-18) mg/dl Creatinine (0.6-1.2) mg/dl Est Cr Clr Drug Dosing ml/min Est GFR ( Amer) Est GFR (Non-Af Amer) BUN/Creatinine Ratio (10-20) Glucose (70-99) mg/dl POC Glucose 117 H (70-99) mg/dl Calcium (8.5-10.1) mg/dl Medications Administered Current Inpatient Medications Acetaminophen (Tylenol) 650 mg PO Q6 ELIZABETH Stop: 12/09/19 12:14 Last Admin: 11/12/19 17:06 Dose: 650 mg Documented by: Albuterol (Ventolin Hfa) 2 - 4 puffs INH Q6H PRN PRN Reason: Wheezing Stop: 12/05/19 14:33 Aspirin (Ecotrin Ectab) 81 mg PO QAM ELIZABETH Stop: 12/07/19 14:44 Last Admin: 11/12/19 07:47 Dose: 81 mg Documented by: Atorvastatin Calcium (Lipitor) 40 mg PO QAM [facility] Stop: 12/07/19 14:44 Last Admin: 11/12/19 07:47 Dose: 40 mg Documented by: Bisacodyl (Dulcolax) 10 mg PA DAILY PRN PRN Reason: Constipation Stop: 12/05/19 14:33 Last Admin: 11/11/19 04:45 Dose: 10 mg Documented by: Dextrose (Dextrose 50%) 25 - 50 ml IV UD PRN; Protocol PRN Reason: Hypoglycemia Protocol Stop: 12/10/19 07:29 Last Admin: 11/12/19 16:20 Dose: 50 ml Documented by: Docusate Sodium (Colace) 100 mg PO BID PRN PRN Reason: Constipation Stop: 12/06/19 08:59 Last Admin: 11/11/19 01:17 Dose: 100 mg Documented by: Ergocalciferol (Vitamin D2) 50,000 units PO Fr@0900 [facility] Stop: 12/07/19 08:59 Last Admin: 11/07/19 10:00 Dose: 50,000 units Documented by: Fluticasone/Vilanterol (Breo Ellipta 100/25 Mcg Inh) 1 puffs INH DAILY [facility] Stop: 12/06/19 08:59 Last Admin: 11/12/19 07:44 Dose: 1 puffs Documented by: Folic Acid (Folvite) 1 mg PO QAM [facility] Stop: 12/07/19 08:59 Last Admin: 11/12/19 07:47 Dose: 1 mg Documented by: Glucagon (Glucagen) 1 mg IM UD PRN; Protocol PRN Reason: Hypoglycemia Protocol Stop: 12/10/19 07:29 Glucose (Glucose 40%) 15 - 30 gm PO UD PRN; Protocol PRN Reason: Hypoglycemia Protocol Stop: 12/10/19 07:29 Glucose (Dex4 Glucose) 4 - 8 tabs PO UD PRN; Protocol PRN Reason: Hypoglycemia Protocol Stop: 12/10/19 07:29 Heparin Sodium (Porcine) (Heparin Sod 100 Unit/Ml Flush) 5 ml FLUSH PRN PRN PRN Reason: Flush Stop: 12/08/19 00:29 Last Admin: 11/12/19 19:25 Dose: 5 ml Documented by: Insulin Aspart (Novolog Flexpen) 0 units SC AC [facility]; Protocol Stop: 12/06/19 16:29 Last Admin: 11/12/19 17:05 Dose: 13 units Documented by: Insulin Aspart (Novolog Flexpen) 0 units SC HS [facility]; Protocol Stop: 12/12/19 20:59 Insulin Aspart (Novolog Flexpen) 0 units SC TODAY@0200 ONE; Protocol Stop: 11/13/19 02:01 Insulin Glargine (Lantus Solostar Pen) 10 units SC QDD [facility]; Protocol Stop: 12/13/19 16:29 Lactase (Lactaid) 9,000 units PO AC PRN PRN Reason: Stomach Upset Stop: 12/05/19 23:27 Last Admin: 11/11/19 12:16 Dose: 9,000 units Documented by: Magnesium Hydroxide (Milk Of Magnesia) 30 ml PO Q12H PRN PRN Reason: Constipation Stop: 12/05/19 14:33 Last Admin: 11/11/19 01:17 Dose: 30 ml Documented by: Magnesium Oxide (Mag-Ox) 400 mg PO [facility] Stop: 12/06/19 08:59 Last Admin: 11/12/19 07:47 Dose: 400 mg Documented by: Metoprolol Succinate (Toprol Xl) 25 mg PO [facility] Stop: 12/08/19 08:59 Last Admin: 11/08/19 09:48 Dose: Not Given Documented by: Miscellaneous (Carbohydrates For Hypoglycemia) 15 - 30 gm PO UD PRN PRN Reason: Hypoglycemia Treatment Stop: 12/10/19 07:29 Last Admin: 11/12/19 04:10 Dose: 30 gm Documented by: Miscellaneous Information (Consult Glycemic Management Pharmacy) 1 ea N/A UD PRN PRN Reason: Consult Stop: 12/05/19 15:20 Morphine Sulfate (Roxanol) 5 mg PO Q2H PRN PRN Reason: Pain Stop: 11/24/19 11:17 Last Admin: 11/12/19 18:18 Dose: 5 mg Documented by: Naloxone HCl (Narcan) 0.1 mg IV UD PRN PRN Reason: Opioid Overdose Stop: 12/06/19 14:45 Nitrofurantoin Macrocrystals (Macrobid) 100 mg PO BID [facility]; Protocol Stop: 11/17/19 20:59 Ondansetron HCl (Zofran) 4 mg IV Q6H PRN PRN Reason: Nausea Stop: 12/05/19 14:33 Last Admin: 11/08/19 23:39 Dose: 4 mg Documented by: Pantoprazole Sodium (Protonix) 40 mg PO QAM [facility] Stop: 12/06/19 08:59 Last Admin: 11/12/19 07:47 Dose: 40 mg Documented by: Polyethylene Glycol (Miralax Powder Packet) 17 gm PO DAILY PRN PRN Reason: Constipation Stop: 12/05/19 14:33 Prochlorperazine (Compazine) 10 mg PO Q6H PRN PRN Reason: Nausea Stop: 12/05/19 14:33 Psyllium Hydrophilic Mucilloid (Metamucil) 1 pkt PO DAILY [facility]; Protocol Stop: 12/06/19 08:59 Last Admin: 11/12/19 07:47 Dose: 1 pkt Documented by: Simethicone (Mylicon) 120 mg PO Q6H PRN; Protocol PRN Reason: Gastrointestinal Spasms [employer] Stop: 12/05/19 14:33 Trazodone HCl (Desyrel) 50 mg PO HS PRN PRN Reason: Sleep Stop: 12/05/19 14:33 Vitamin D (Vitamin D3) [facility] Stop: 12/07/19 08:59 Last Admin: 11/12/19 07:47 Dose: 2,000 units Documented by: Warfarin Sodium (Coumadin) 2 mg PO DAILY@1600 [facility] Stop: 12/07/19 15:59 Last Admin: 11/12/19 16:21 Dose: 2 mg Documented by: Resident Activity Tracking Resident Involvement: Resident Care Provided Care Provided: Adult Hospital Medicine (1) Intertrochanteric fracture of left femur Encounter type: initial encounter Fracture alignment: displaced Fracture type: closed Qualified Code(s): S72.142A - Displaced intertrochanteric fracture of left femur, initial encounter for closed fracture
[2019-11-12] MEDS ORDERED: INSULIN GLARGINE SOLOSTAR 100 UNITS/ML 3 ML PEN SC SCH (19:00)
[2019-11-12] MEDS: HEPARIN 100 UNIT/ML 5ML FLUSH FLUSH PRN (19:25)
[2019-11-12] MEDS: NITROFURANTOIN MONOHYDRATE 100 MG CAP PO SCH (21:59)
[2019-11-13] MEDS: ACETAMINOPHEN 325 MG TAB PO SCH ×5 (01:12→23:36)
[2019-11-13] MEDS ORDERED: INSULIN ASPART 100 UNITS/ML 3 ML PEN SC ONE (02:00)
[2019-11-13 05:42] LABS: Basophils # (auto) 0.01 K/uL (0-0.2); Basophils % (auto) 0.1 %; Eosinophils # (auto) 0.32 K/uL (0-0.5); Eosinophils % (auto) 4.5 %; Hematocrit (blood only) 27.4 % (37-47); Hemoglobin 8.9 g/dL (12.0-16.0); Immature Granulocytes # (auto) 0.08 K/uL (0.00-0.02); Immature Granulocytes % (auto) 1.1 %; Lymphocytes # (auto) 1.96 K/uL (1.2-3.4); Lymphocytes % (auto) 27.6 %; Mean Corpuscular Hemoglobin 32.6 pg (25-34); Mean Corpuscular Hgb Conc 32.5 g/dL (32-36); Mean Corpuscular Volume 100.4 fL (80-100); Mean Platelet Volume 8.8 fL (7.4-10.4); Monocytes # (auto) 0.66 K/uL (0.11-0.59); Monocytes % (auto) 9.3 %; Neutrophils # (auto) 4.07 K/uL (1.4-6.5); Neutrophils % (auto) 57.4 %; Platelet Count 277 K/uL (130-400); RDW Coefficient of Variation 19.2 % (11.5-14.5); RDW Standard Deviation 69.8 fL (36.4-46.3); Red Blood Count 2.73 M/uL (4.2-5.4)
[2019-11-13 05:57] LABS: INR 2.9 (0.9-1.1); Prothrombin Time 27.4 Seconds (9.0-12.0)
[2019-11-13 06:16] LABS: BUN Creatinine Ratio 31.3 (10-20); Calcium 8.5 mg/dl (8.5-10.1); Creatinine Clr Calc Pharmacy 105.3 ml/min; Est GFR (Non-African American) 110.4; Potassium 4.7 mmol/L (3.5-5.1)
[2019-11-13] MEDS: INSULIN ASPART 100 UNITS/ML 3 ML PEN SC SCH ×4 (09:19→21:33)
[2019-11-13] MEDS: CHOLECALCIFEROL 1,000 UNITS 25 MCG TAB PO SCH (10:14)
[2019-11-13] MEDS: ASPIRIN 81 MG ECTAB PO SCH (10:14)
[2019-11-13] MEDS: FOLIC ACID 1 MG TAB PO SCH (10:14)
[2019-11-13] MEDS: MAGNESIUM OXIDE 400 MG TAB PO SCH (10:14)
[2019-11-13] MEDS: FLUTICASONE/VILANTEROL 100/25MCG 14 PUFFS/INHALER INH SCH (10:14)
[2019-11-13] MEDS: NITROFURANTOIN MONOHYDRATE 100 MG CAP PO SCH ×2 (10:15→21:33)
[2019-11-13] MEDS: ATORVASTATIN 40 MG TAB PO SCH (10:15)
[2019-11-13] MEDS: PSYLLIUM 58.6% POWDER PACKET PO SCH (10:15)
[2019-11-13] MEDS: PANTOprazole 40 MG TAB PO SCH (10:15)
[2019-11-13] MEDS: LACTASE 3000 UNIT TAB PO PRN ×2 (13:43→18:04)
--- NOTE | 2019-11-13 15:05 | Hospitalist Progress Note ---
Date of Service November 13, 2019 Assessment & Plan (1) Intertrochanteric fracture of left femur: 53 yo F w/ metastatic colon cancer stage IV, lung cancer, A. fib, heart failure with reduced ejection fraction, IDDM type II, Asthma, ANA, Hypothyroid, GERD, presenting with left hip pain after fall on walker while on Coumadin. Appears mechanical due to her walker slipping out from under her, however certainly her electrolyte abnormalities and hyperglycemia may be contributory. Other thoughts include pathologic fracture from metastatic disease and osteoporosis potentially driven by elevated thyroid levels. Intertrochanteric fracture of left femur: - POD#7 s/p intertrochanteric nailing with Dr. Rehman - continued Acetaminophen 650 Q6H scheduled, and PRN Roxanol 5mg Q2h - PT/OT: worked with patient continuing to get patient to bedside, patient continues to benefit from therapy. awaiting placement Acute blood loss anemia: - CT abd/pelvis w/o contrast and CT leg LT w/o contrast to evaluate for acute bleed. - patient received 1unit of PRBCs overnight (11/09-11/10) due to determined true hgb 6.6, with subsequent hgb of 8.8 on 11/10 - hgb 8.9 this AM - continue to monitor A fib: - patient is rate controlled, and has become periodically bradycardic on her current medical regimen and digoxin level WNL - bradycardia seems ?if 2/2 Dilaudid or continued digoxin dosing - holding Digoxin - continued Warfarin with INR 2.9 - continue to monitor INR in the setting of antibiotic start - Cardiology consulted: hold digoxin, but can be restarted in the setting of returned tachycardia T2DM: - continues to have large fluctuations in glucose control - on Lantus 10u, with 55units of Novolog in the last 24hrs - Glycemic management consulted: difficult to completely outline, but with ideal goal of 50/50 division of Lantus, and Novolog there is continued need for monitoring and adjustment - HbA1C 14 Asthma: - Continue Breo Ellipta Hypothyroid: - Per note by [facility] [employer] Dr. Zimmerman 10/30/2018 she had a TSH of 11.4 in 2001 and she was started on a 100 mcg dose of Synthroid initially that was titrated up. 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 - TSH 0.087 FT4 >8; repeat TSH 0.146 Hypotension: - holding Metoprolol 25 mg in the setting of continued moderate blood pressure Diet: Carb consistent, Heart healthy DVT ppx: on Warfarin INR 2.1 Code: Full code Admission and Anticipated Discharge Date Admission Date: November 05, 2019 Supervising Physician Co-Signing Physician Notes Resident Physician Supervision Note: I independently interviewed and examined the patient and verified the aguirre history and physical, reviewed labs and image studies, discussed the case with the resident Dr. Villarreal and agree with the findings and care plan. Subjective Patient continues to feel that she is struggling to move like she would want to at this point, has some continued soreness of her back, hip, and arms; has noticed improvement in the back pain and continued improvement in her strength. Remains concerned that she has not been able to comfortably get up and walk on her own, and is concerned about how that will go given she fell when walking with walker at home. Review of Systems Review of Systems: All systems reviewed & are unremarkable except as noted in Subjective Physical Exam Constitutional: WD/WN, vitals as above Eyes: normal visual reinoso by confrontation, PERRL and EOM intact bilaterally; no eyelid abnormality, no conjunctival abnormality, no scleral abnormality, no corneal abnormality, no retinal abnormality, no optic disc abnormality, no EOM movement deficit, no nystagmus, no macular abnormality and no photophobia Respiratory: normal respiratory effort, lungs clear to auscultation Cardiovascular: Rate/Rhythm: regular rate and regular rhythm Heart Sounds: normal S1 and normal S2; no gallop, no murmur and no cardiac rub Gastrointestinal (Abdomen): normal bowel sounds, soft, nontender, no hepatosplenomegaly Musculoskeletal: Hip: + surgical incision (well approximated with livan); no effusion, no skin erythema and no ecchymosis Knee: no effusion, no skin erythema and no ecchymosis Results & Data ([facility]) Vital Signs (Past 12 Hours) Vital Signs Temp Pulse Resp BP BP Pulse Ox 11/13/19 11:31 36.5 C 78 18 100/61 97 11/13/19 10:37 65 16 109/61 99 11/13/19 10:10 65 109/61 99 11/13/19 08:18 36.6 C 66 16 122/74 100 Laboratory Results 11/13/19 11/13/19 11/13/19 Range/Units 12:04 10:08 08:09 WBC (4.8-10.8) K/uL RBC (4.2-5.4) M/uL Hgb (12.0-16.0) g/dL Hct (37-47) % MCV (80-100) fL MCH (25-34) pg MCHC (32-36) g/dL RDW Std Deviation (36.4-46.3) fL RDW Coeff of Stanley (11.5-14.5) % Plt Count (130-400) K/uL MPV (7.4-10.4) fL Immature Gran % (Auto) % Neut % (Auto) % Lymph % (Auto) % [place] % (Auto) % Eos % (Auto) % Baso % (Auto) % Immature Gran # (Auto) (0.00-0.02) K/uL Neut # (Auto) (1.4-6.5) K/uL Lymph # (Auto) (1.2-3.4) K/uL [place] # (Auto) (0.11-0.59) K/uL Eos # (Auto) (0-0.5) K/uL Baso # (Auto) (0-0.2) K/uL PT (9.0-12.0) Seconds INR (0.9-1.1) Sodium (136-145) mmol/L Potassium (3.5-5.1) mmol/L Chloride (98-107) mmol/L Carbon Dioxide (21-32) mmol/L Anion Gap (3-11) BUN (7-18) mg/dl Creatinine (0.6-1.2) mg/dl Est Cr Clr Drug Dosing ml/min Est GFR ( Amer) Est GFR (Non-Af Amer) BUN/Creatinine Ratio (10-20) Glucose (70-99) mg/dl POC Glucose 203 H 241 H 115 H (70-99) mg/dl Calcium (8.5-10.1) mg/dl 11/13/19 11/13/19 11/13/19 Range/Units 05:06 05:06 05:06 WBC 7.10 (4.8-10.8) K/uL RBC 2.73 L (4.2-5.4) M/uL Hgb 8.9 L (12.0-16.0) g/dL Hct 27.4 L (37-47) % MCV 100.4 H (80-100) fL MCH 32.6 (25-34) pg MCHC 32.5 (32-36) g/dL RDW Std Deviation 69.8 H (36.4-46.3) fL RDW Coeff of Stanley 19.2 H (11.5-14.5) % Plt Count 277 (130-400) K/uL MPV 8.8 (7.4-10.4) fL Immature Gran % (Auto) 1.1 % Neut % (Auto) 57.4 % Lymph % (Auto) 27.6 % [place] % (Auto) 9.3 % Eos % (Auto) 4.5 % Baso % (Auto) 0.1 % Immature Gran # (Auto) 0.08 H (0.00-0.02) K/uL Neut # (Auto) 4.07 (1.4-6.5) K/uL Lymph # (Auto) 1.96 (1.2-3.4) K/uL [place] # (Auto) 0.66 H (0.11-0.59) K/uL Eos # (Auto) 0.32 (0-0.5) K/uL Baso # (Auto) 0.01 (0-0.2) K/uL PT 27.4 H (9.0-12.0) Seconds INR 2.9 H (0.9-1.1) Sodium 141 (136-145) mmol/L Potassium 4.7 (3.5-5.1) mmol/L Chloride 108 H (98-107) mmol/L Carbon Dioxide 31 (21-32) mmol/L Anion Gap 2.0 L (3-11) BUN 15 (7-18) mg/dl Creatinine 0.47 L (0.6-1.2) mg/dl Est Cr Clr Drug Dosing 105.3 ml/min Est GFR ( Amer) 128.0 Est GFR (Non-Af Amer) 110.4 BUN/Creatinine Ratio 31.3 H (10-20) Glucose 123 H (70-99) mg/dl POC Glucose (70-99) mg/dl Calcium 8.5 (8.5-10.1) mg/dl 11/13/19 11/12/19 11/12/19 Range/Units 01:16 20:57 16:31 WBC (4.8-10.8) K/uL RBC (4.2-5.4) M/uL Hgb (12.0-16.0) g/dL Hct (37-47) % MCV (80-100) fL MCH (25-34) pg MCHC (32-36) g/dL RDW Std Deviation (36.4-46.3) fL RDW Coeff of Stanley (11.5-14.5) % Plt Count (130-400) K/uL MPV (7.4-10.4) fL Immature Gran % (Auto) % Neut % (Auto) % Lymph % (Auto) % [place] % (Auto) % Eos % (Auto) % Baso % (Auto) % Immature Gran # (Auto) (0.00-0.02) K/uL Neut # (Auto) (1.4-6.5) K/uL Lymph # (Auto) (1.2-3.4) K/uL [place] # (Auto) (0.11-0.59) K/uL Eos # (Auto) (0-0.5) K/uL Baso # (Auto) (0-0.2) K/uL PT (9.0-12.0) Seconds INR (0.9-1.1) Sodium (136-145) mmol/L Potassium (3.5-5.1) mmol/L Chloride (98-107) mmol/L Carbon Dioxide (21-32) mmol/L Anion Gap (3-11) BUN (7-18) mg/dl Creatinine (0.6-1.2) mg/dl Est Cr Clr Drug Dosing ml/min Est GFR ( Amer) Est GFR (Non-Af Amer) BUN/Creatinine Ratio (10-20) Glucose (70-99) mg/dl POC Glucose 97 100 H 221 H (70-99) mg/dl Calcium (8.5-10.1) mg/dl 11/12/19 11/12/19 Range/Units 16:14 16:13 WBC (4.8-10.8) K/uL RBC (4.2-5.4) M/uL Hgb (12.0-16.0) g/dL Hct (37-47) % MCV (80-100) fL MCH (25-34) pg MCHC (32-36) g/dL RDW Std Deviation (36.4-46.3) fL RDW Coeff of Stanley (11.5-14.5) % Plt Count (130-400) K/uL MPV (7.4-10.4) fL Immature Gran % (Auto) % Neut % (Auto) % Lymph % (Auto) % [place] % (Auto) % Eos % (Auto) % Baso % (Auto) % Immature Gran # (Auto) (0.00-0.02) K/uL Neut # (Auto) (1.4-6.5) K/uL Lymph # (Auto) (1.2-3.4) K/uL [place] # (Auto) (0.11-0.59) K/uL Eos # (Auto) (0-0.5) K/uL Baso # (Auto) (0-0.2) K/uL PT (9.0-12.0) Seconds INR (0.9-1.1) Sodium (136-145) mmol/L Potassium (3.5-5.1) mmol/L Chloride (98-107) mmol/L Carbon Dioxide (21-32) mmol/L Anion Gap (3-11) BUN (7-18) mg/dl Creatinine (0.6-1.2) mg/dl Est Cr Clr Drug Dosing ml/min Est GFR ( Amer) Est GFR (Non-Af Amer) BUN/Creatinine Ratio (10-20) Glucose (70-99) mg/dl POC Glucose 44 L* 45 L* (70-99) mg/dl Calcium (8.5-10.1) mg/dl Medications Administered Current Inpatient Medications Acetaminophen (Tylenol) 650 mg PO Q6 [facility] Stop: 12/09/19 12:14 Last Admin: 11/13/19 11:52 Dose: 650 mg Documented by: Albuterol (Ventolin Hfa) 2 - 4 puffs INH Q6H PRN PRN Reason: Wheezing Stop: 12/05/19 14:33 Aspirin (Ecotrin Ectab) 81 mg PO QAM [facility]IZABETH Stop: 12/07/19 14:44 Last Admin: 11/13/19 10:14 Dose: 81 mg Documented by: Atorvastatin Calcium (Lipitor) 40 mg PO QAM [facility] Stop: 12/07/19 14:44 Last Admin: 11/13/19 10:15 Dose: 40 mg Documented by: Bisacodyl (Dulcolax) 10 mg [place] DAILY PRN PRN Reason: Constipation Stop: 12/05/19 14:33 Last Admin: 11/11/19 04:45 Dose: 10 mg Documented by: Dextrose (Dextrose 50%) 25 - 50 ml IV UD PRN; Protocol PRN Reason: Hypoglycemia Protocol Stop: 12/10/19 07:29 Last Admin: 11/12/19 16:20 Dose: 50 ml Documented by: Docusate Sodium (Colace) 100 mg PO BID PRN PRN Reason: Constipation Stop: 12/06/19 08:59 Last Admin: 11/11/19 01:17 Dose: 100 mg Documented by: Ergocalciferol (Vitamin D2) 50,000 units PO Fr@0900 [facility] Stop: 12/07/19 08:59 Last Admin: 11/07/19 10:00 Dose: 50,000 units Documented by: Fluticasone/Vilanterol (Breo Ellipta 100/25 Mcg Inh) 1 puffs INH DAILY [facility] Stop: 12/06/19 08:59 Last Admin: 11/13/19 10:14 Dose: 1 puffs Documented by: Folic Acid (Folvite) 1 mg PO QAM [facility] Stop: 12/07/19 08:59 Last Admin: 11/13/19 10:14 Dose: 1 mg Documented by: Glucagon (Glucagen) 1 mg IM UD PRN; Protocol PRN Reason: Hypoglycemia Protocol Stop: 12/10/19 07:29 Glucose (Glucose 40%) 15 - 30 gm PO UD PRN; Protocol PRN Reason: Hypoglycemia Protocol Stop: 12/10/19 07:29 Glucose (Dex4 Glucose) 4 - 8 tabs PO UD PRN; Protocol PRN Reason: Hypoglycemia Protocol Stop: 12/10/19 07:29 Heparin Sodium (Porcine) (Heparin Sod 100 Unit/Ml Flush) 5 ml FLUSH PRN PRN PRN Reason: Flush Stop: 12/08/19 00:29 Last Admin: 11/12/19 19:25 Dose: 5 ml Documented by: Insulin Aspart (Novolog Flexpen) 0 units SC AC [facility]; Protocol Stop: 12/06/19 16:29 Last Admin: 11/13/19 13:45 Dose: 15 units Documented by: Insulin Aspart (Novolog Flexpen) 0 units SC HS [facility]; Protocol Stop: 12/12/19 20:59 Last Admin: 11/12/19 21:51 Dose: Not Given Documented by: Insulin Glargine (Lantus Solostar Pen) 10 units SC QDD [facility]; Protocol Stop: 12/13/19 16:29 Lactase (Lactaid) 9,000 units PO AC PRN PRN Reason: Stomach Upset Stop: 12/05/19 23:27 Last Admin: 11/13/19 13:43 Dose: 9,000 units Documented by: Magnesium Hydroxide (Milk Of Magnesia) 30 ml PO Q12H PRN PRN Reason: Constipation Stop: 12/05/19 14:33 Last Admin: 11/11/19 01:17 Dose: 30 ml Documented by: Magnesium Oxide (Mag-Ox) 400 mg PO [facility] Stop: 12/06/19 08:59 Last Admin: 11/13/19 10:14 Dose: 400 mg Documented by: Metoprolol Succinate (Toprol Xl) 25 mg PO [facility] Stop: 12/08/19 08:59 Last Admin: 11/08/19 09:48 Dose: Not Given Documented by: Miscellaneous (Carbohydrates For Hypoglycemia) 15 - 30 gm PO UD PRN PRN Reason: Hypoglycemia Treatment Stop: 12/10/19 07:29 Last Admin: 11/12/19 04:10 Dose: 30 gm Documented by: Miscellaneous Information (Consult Glycemic Management Pharmacy) 1 ea N/A UD PRN PRN Reason: Consult Stop: 12/05/19 15:20 Morphine Sulfate (Roxanol) 5 mg PO Q2H PRN PRN Reason: Pain Stop: 11/24/19 11:17 Last Admin: 11/12/19 18:18 Dose: 5 mg Documented by: Naloxone HCl (Narcan) 0.1 mg IV UD PRN PRN Reason: Opioid Overdose Stop: 12/06/19 14:45 Nitrofurantoin Macrocrystals (Macrobid) 100 mg PO BID [facility]; Protocol Stop: 11/17/19 20:59 Last Admin: 11/13/19 10:15 Dose: 100 mg Documented by: Ondansetron HCl (Zofran) 4 mg IV Q6H PRN PRN Reason: Nausea Stop: 12/05/19 14:33 Last Admin: 11/08/19 23:39 Dose: 4 mg Documented by: Pantoprazole Sodium (Protonix) 40 mg PO QAM [facility] Stop: 12/06/19 08:59 Last Admin: 11/13/19 10:15 Dose: 40 mg Documented by: Polyethylene Glycol (Miralax Powder Packet) 17 gm PO DAILY PRN PRN Reason: Constipation Stop: 12/05/19 14:33 Prochlorperazine (Compazine) 10 mg PO Q6H PRN PRN Reason: Nausea Stop: 12/05/19 14:33 Psyllium Hydrophilic Mucilloid (Metamucil) 1 pkt PO DAILY [facility]; Protocol Stop: 12/06/19 08:59 Last Admin: 11/13/19 10:15 Dose: 1 pkt Documented by: Simethicone (Mylicon) 120 mg PO Q6H PRN; Protocol PRN Reason: Gastrointestinal Spasms Or Gambling Box Person Stop: 12/05/19 14:33 Trazodone HCl (Desyrel) 50 mg PO HS PRN PRN Reason: Sleep Stop: 12/05/19 14:33 Vitamin D (Vitamin D3) [facility] [place] Stop: 12/07/19 08:59 Last Admin: 11/13/19 10:14 Dose: 2,000 units Documented by: Warfarin Sodium (Coumadin) 2 mg PO DAILY@1600 [facility] Stop: 12/07/19 15:59 Last Admin: 11/12/19 16:21 Dose: 2 mg Documented by: Resident Activity Tracking Resident Involvement: Resident Care Provided Care Provided: Adult Hospital Medicine (1) Intertrochanteric fracture of left femur Encounter type: initial encounter Fracture alignment: displaced Fracture type: closed Qualified Code(s): S72.142A - Displaced intertrochanteric fracture of left femur, initial encounter for closed fracture
[2019-11-13] MEDS: MoRPHine SULFATE 5 MG/0.25 ML UDP PO PRN ×2 (16:20→19:30)
[2019-11-13] MEDS: WARFARIN SOD 2 MG TAB PO SCH (16:29)
[2019-11-13] MEDS ORDERED: INSULIN GLARGINE SOLOSTAR 100 UNITS/ML 3 ML PEN SC SCH (16:30)
[2019-11-14 05:52] LABS: Basophils # (auto) 0.01 K/uL (0-0.2); Basophils % (auto) 0.1 %; Eosinophils # (auto) 0.32 K/uL (0-0.5); Eosinophils % (auto) 4.5 %; Hematocrit (blood only) 28.8 % (37-47); Hemoglobin 9.3 g/dL (12.0-16.0); Immature Granulocytes # (auto) 0.08 K/uL (0.00-0.02); Immature Granulocytes % (auto) 1.1 %; Lymphocytes # (auto) 1.67 K/uL (1.2-3.4); Lymphocytes % (auto) 23.6 %; Mean Corpuscular Hemoglobin 32.7 pg (25-34); Mean Corpuscular Hgb Conc 32.3 g/dL (32-36); Mean Corpuscular Volume 101.4 fL (80-100); Mean Platelet Volume 8.7 fL (7.4-10.4); Monocytes # (auto) 0.45 K/uL (0.11-0.59); Monocytes % (auto) 6.4 %; Neutrophils # (auto) 4.54 K/uL (1.4-6.5); Neutrophils % (auto) 64.3 %; Platelet Count 308 K/uL (130-400); RDW Standard Deviation 69.7 fL (36.4-46.3); Red Blood Count 2.84 M/uL (4.2-5.4); White Blood Count 7.07 K/uL (4.8-10.8)
[2019-11-14 06:09] LABS: INR 3.7 (0.9-1.1); Prothrombin Time 34.6 Seconds (9.0-12.0)
[2019-11-14] MEDS: ACETAMINOPHEN 325 MG TAB PO SCH ×2 (06:16→13:11)
[2019-11-14 06:24] LABS: BUN Creatinine Ratio 31.4 (10-20); Calcium 8.6 mg/dl (8.5-10.1); Creatinine Clr Calc Pharmacy 95.2 ml/min; Est GFR (African American) 123.8; Est GFR (Non-African American) 106.8; Potassium 4.4 mmol/L (3.5-5.1)
[2019-11-14] MEDS: PANTOprazole 40 MG TAB PO SCH (09:08)
[2019-11-14] MEDS: ASPIRIN 81 MG ECTAB PO SCH (09:08)
[2019-11-14] MEDS: PSYLLIUM 58.6% POWDER PACKET PO SCH (09:08)
[2019-11-14] MEDS: FOLIC ACID 1 MG TAB PO SCH (09:08)
[2019-11-14] MEDS: MAGNESIUM OXIDE 400 MG TAB PO SCH (09:08)
[2019-11-14] MEDS: ERGOCALCIFEROL 50,000 UNITS CAP PO SCH (09:09)
[2019-11-14] MEDS: NITROFURANTOIN MONOHYDRATE 100 MG CAP PO SCH (09:09)
[2019-11-14] MEDS: ATORVASTATIN 40 MG TAB PO SCH (09:09)
[2019-11-14] MEDS: LACTASE 3000 UNIT TAB PO PRN (09:09)
[2019-11-14] MEDS: CHOLECALCIFEROL 1,000 UNITS 25 MCG TAB PO SCH (09:09)
[2019-11-14] MEDS: FLUTICASONE/VILANTEROL 100/25MCG 14 PUFFS/INHALER INH SCH (09:10)
[2019-11-14] MEDS: INSULIN ASPART 100 UNITS/ML 3 ML PEN SC SCH ×2 (09:13→13:08)
[2019-11-14] MEDS: HEPARIN 100 UNIT/ML 5ML FLUSH FLUSH PRN (09:25)
--- NOTE | 2019-11-14 15:43 | Discharge Summary ---
Date of Service November 14, 2019 Admission HPI Per Admitting Provider Luisa Bernard is an unfortunate 53 year old female with metastatic colon cancer who presents to the ER due to left groin pain after falling at home around 8am today. She was trying to get to her commode with her walker when the walker slipped and she fell onto her left side with the walker under her. Patient was on the floor unable to get up until EMS arrived. She denies hitting her head, no loss of consciousness, headache or vomiting. No new focal weakness or change in sensation/speech or hearing. Her main complaint is her left groin pain from any left leg movement other than ankle plantar/dorsiflexion. Pain is currently 3/10 after multiple doses of fentanyl given by EMS and the ER however 10/10 on any movement. She denies any wrist pain/swelling. She does have some left shoulder pain however no fracture seen on XR of this area. Her tongue is dry as a bone however she says it is always like this and she denies any dizziness. Currently takes lasix 40mg PO BID and spironolactone for heart failure. Her glucose is 563 and she does note she likes to keep her glucose higher as she gets hypoglycemic symptoms when glucose < 200. Principal Diagnosis Intertrochanteric fracture Discharge Exam Constitutional WD/WN, vitals as above Eyes PERRL, conjunctivae normal, anicteric sclerae normal visual reinoso by confrontation, PERRL and EOM intact bilaterally; no eyelid abnormality, no conjunctival abnormality, no scleral abnormality, no corneal abnormality, no retinal abnormality, no optic disc abnormality, no EOM movement deficit, no nystagmus, no macular abnormality and no photophobia Respiratory normal respiratory effort, lungs clear to auscultation Cardiovascular Rate/Rhythm: regular rate and regular rhythm Heart Sounds: normal S1 and normal S2; no gallop, no murmur and no cardiac rub Gastrointestinal (Abdomen) normal bowel sounds, soft, nontender, no hepatosplenomegaly Musculoskeletal Hip: + surgical incision (well approximated with livan); no effusion, no skin erythema and no ecchymosis Knee: no effusion, no skin erythema and no ecchymosis Ankle: no deformity, no effusion, no skin erythema, no ecchymosis, no joint line tenderness (ankle) and squeeze test negative Skin no rashes, warm and dry Discharge Data Allergies Allergy/AdvReac Type Severity Reaction Status Date / Time daptomycin Allergy Severe SHORTNESS Verified 11/06/19 09:43 OF BREATH Iodinated Contrast Media Allergy Severe Anaphylaxis Verified 11/06/19 09:43 bee venom protein (honey bee) Allergy Intermediate HIVES Verified 11/06/19 09:43 clindamycin Allergy Intermediate HIVES Verified 11/06/19 09:43 Sulfa (Sulfonamide Allergy Intermediate BACTRIM-HIV Verified 11/06/19 09:43 Antibiotics) ES trimethoprim Allergy Intermediate HIVES Verified 11/06/19 09:43 vancomycin Allergy Intermediate RASH Verified 11/06/19 09:43 dulaglutide AdvReac Severe BRAND-TRULICITY, Verified 11/06/19 09:43 SEVERE GI UPSET, CONSTIPATION Consultations 11/05/19 12:14 ED Decision to Admit Stat 11/05/19 13:36 Consult Orthopedic Surgery Routine 11/05/19 14:34 Consult Cardiology Routine Consult Case Management - Discharge Planning Routine 11/06/19 14:46 Consult Case Management - Discharge Planning Routine 11/07/19 06:06 Consult Health Information Management Routine Procedures Performed Operation Date: 11/06/19 11:55 Actual Procedures p Left Trochanteric Nailing(Left) - Riaz Rehman MD Ordered Studies 11/05/19 09:41 CT abd pelvis wo con Stat CT chest wo con Stat 11/06/19 11:11 US - OR guided needle placemen Routine 11/06/19 12:55 FL fluoroscopy <1hr Routine FL hip LT 2-3V Routine 11/08/19 09:03 CT femur LT wo con Routine 11/08/19 14:39 CT head/brain wo con Routine 11/09/19 13:20 CT abd pelvis wo con Urgent CT femur LT wo con Urgent Hospital Course (1) Intertrochanteric fracture of left femur: 53 yo F w/ metastatic colon cancer stage IV, lung cancer, A. fib, heart failure with reduced ejection fraction, IDDM type II, Asthma, ANA, Hypothyroid, GERD, presenting with left hip pain after fall on walker while on Coumadin. Appears mechanical due to her walker slipping out from under her, however certainly her electrolyte abnormalities and hyperglycemia may be contributory. Other thoughts include pathologic fracture from metastatic disease and osteoporosis potentially driven by elevated thyroid levels. Intertrochanteric fracture of left femur: - POD#8 s/p intertrochanteric nailing with Dr. Rehman - PT/OT: worked with patient continuing to get patient to bedside, patient continues to benefit from therapy Acute blood loss anemia: (resolved) - CT abd/pelvis w/o contrast and CT leg LT w/o contrast to evaluate for acute bleed. - patient received 1unit of PRBCs overnight (11/09-11/10) due to determined true hgb 6.6, with subsequent hgb of 8.8 on 11/10 A fib: - patient is rate controlled, and has become periodically bradycardic on her current medical regimen and digoxin level WNL - bradycardia seems ?if 2/ Dilaudid or continued digoxin dosing - stopped Digoxin, for continued bradycardia; can be restarted if return of tachycardia - Hold warfarin for two days before restarting 2mg daily - INR 3.7 on discharge T2DM: - on Lantus 10u daily, with 10u of Novolog with meals - HbA1C 14 Asthma: - Continue Breo Ellipta Hypothyroid: - Per note by Bobbin Co[facility] Winder Dr. Zimmerman 10/30/2018 she had a TSH of 11.4 in 2001 and she was started on a 100 mcg dose of Synthroid initially that was titrated up. 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 - TSH 0.087 FT4 >8; repeat TSH 0.146 Hypotension: - stopped Metoprolol 25 mg in the setting of continued moderate blood pressure Diet: Carb consistent, Heart healthy DVT ppx: on Warfarin INR 2.1 Code: Full code Total Time Total Time Spent Total Time Spent (In Minutes): 30 Discharge Plan Discharge Items Patient Disposition: Transfer [facility] Fac Reason For Visit: Hip Pain Discharge Diagnosis: Hip fracture Activity: Per Instructions section Non-emergency contact: Primary Care Provider, Surgeon and Oncologist Call non-emergency contact if: you have any medication questions, your symptoms worsen and you have a fever Follow-up/Referrals: Madison Vivar MD [Primary Care Provider] - Diet: Carb Consistent or DM2 Addtl Attending Provider Instructions: He was seen and evaluated after a fall, during this admission it was discovered that you had a fracture to your hip. This was repaired with her orthopedic surgeons, but at this point time it is insisting that you go to a penitentiary facility in order to continue to get your strength up and continue to work with physical therapy. During this time after surgery, it was noted that you had a urinary tract infection; for this urinary tract infection we started you on antibiotics that you take twice a day, now that you are being discharged he will continue to take these twice a day for another 3 days before these antibiotics can be stopped. You should resume taking your warfarin 2 mg once a day on Saturday November 16, 2019; as this is important medication to continue to take with your history of atrial fibrillation. It is important that you continue to work with physical therapy and occupational therapy while you are at [facility] in order to continue to improve your strength. Addtl Fine Hairer Provider Instructions: [facility] DISCHARGE INSTRUCTIONS: HIP FRACTURE SELF CARE INSTRUCTIONS: A. You are to ambulate with a walker or crutches for approximately 6 weeks. B. You are TOE TOUCH WEIGHT BEARING on your operative lower extremity for at least 6 weeks. YOU MUST WEAR YOUR BRACE AT ALL TIMES, ESPECIALLY FOR AMBULATION. MAY REMOVE FOR BATHING OR CHANGING OF CLOTHES. C. Wear low heeled shoes with non-slip soles D. Be sure that your floors are free of things that could trip you throw rugs, electrical cords, and small objects. Avoid wet and waxed floors, especially with crutches/walker/cane. E. Try to walk several times a day with rest periods between. F. You may shower 48 hours after surgery and get the incision area wet, but DO NOT soak or submerge incision area in water. (No baths, swimming pools, hot tubs) G. You may have a large, band-aid like dressing over your incision (Aquacel). This will remain on your incision for 7 days, and then can be removed. You CAN shower with this on. If incision is leaking through the dressing, please call the office . H. Do NOT apply soap or any ointment/lotions directly over incision. I. You may use ice as needed to operative site. SPECIAL CARE INSTRUCTIONS: VERY IMPORTANT TO READ AND REVIEW A. You may be at risk for phlebitis or blood clots. a. Wear surgical stockings (DEBBI hose) for 2 weeks after surgery to improve circulation and reduce swelling. b. Take WARFARIN/COUMADIN as directed. This is your blood thinner. c. If you are on Coumadin- you will have daily/weekly blood work to monitor your levels. This will be done by either your family physician/home visitor (if you are on Coumadin chronically) versus your orthopedic surgeon. B. There are a few signs you need to watch for after you are home. Call [facility] at [phone] if you experience any of the following: a. If you have a temperature of 101 degrees or higher. b. Sudden increase in pain in your hip not relieved by rest or pain medication. c. Any fluid or drainage from the incision; redness of the incision. d. Shortness of breath or chest pain. C. Call your physician if: a. Temperature is greater than 101 degrees (F). b. Pain is not relieved by prescribed pain medications. c. Increase drainage or redness from incision. d. Unanswered questions or concerns. D. Pain Medication: a. You will be prescribed pain medication upon discharge that should last till your first post-operative appointment. b. If you experience nausea and/or skin rash, discontinue this medication and contact our office for an alternative medication. c. Caution- narcotic pain medication can cause constipation. FOLLOW UP VISIT: Please call [facility] at [phone] to schedule a follow up appointment 10-14 days from the date of your surgery date. Pending Studies at Discharge: No Stand-Alone Forms: My RF Bioc[employer], Smoking Cessation Skilled Items Patient informed of condition?: Yes DNR: No Discharge Level of Care: Skilled Communicable Disease: No Discharge Prognosis: Improving Lines: PICC Urinary Catheter: No Medications and DC Order Prescriptions: New insulin aspart U-100 [Novolog Flexpen U-100 Insulin] 100 unit/mL (3 mL) Insulin Pen 10 unit SC AC 30 Days Qty: 9 RF: 0 nitrofurantoin monohyd/m-cryst 100 mg Capsule 100 mg PO BID 3 Days Qty: 6 RF: 0 Lantus Solostar U-100 Insulin 100 unit/mL (3 mL) Insulin Pen 10 unit SC QDD 30 Days Qty: 3 RF: 0 Continued prochlorperazine maleate [Compazine] 10 mg tablet 10 mg PO Q6H PRN (Reason: Nausea) RF: 0 capecitabine [Xeloda] 500 mg tablet 1,500 mg PO BID RF: 0 trazodone 50 mg tablet 50 mg PO DAILY PRN (Reason: Sleep) RF: 0 ferrous sulfate [FeroSul] 325 mg (65 mg iron) tablet 325 mg PO QAM RF: 0 diphenhydramine HCl [Allergy (diphenhydramine)] 25 mg capsule 25 mg PO Q8H PRN (Reason: Sleep) RF: 0 sucralfate 1 gram tablet 1 gm PO ONCE PRN (Reason: ULCER) RF: 0 docusate sodium 100 mg capsule 100 mg PO Q2D RF: 0 spironolactone 25 mg tablet 12.5 mg PO DAILY RF: 0 acetaminophen 500 mg Tablet 500 mg PO Q4 PRN (Reason: mild pain/fever) RF: 0 psyllium husk [Fiber-Caps (psyllium husk)] 0.52 gram Capsule 0.52 g PO DAILY RF: 0 omeprazole 40 mg capsule,delayed release(DR/EC) 40 mg PO DAILY RF: 0 levothyroxine 200 mcg tablet 1,200 mcg PO QAM RF: 0 warfarin 1 mg tablet 2 mg PO DAILY RF: 0 magnesium oxide 400 mg (241.3 mg magnesium) Tablet 400 mg PO QAM RF: 0 albuterol sulfate [Ventolin HFA] 90 mcg/actuation Hfa Aerosol Inhaler 2 - 4 puff INHALATION Q6H PRN (Reason: asthma) RF: 0 Breo Ellipta 100-25 mcg/dose Blister With Device 1 inh INHALATION DAILY MDD 1 dose in 24 hours RF: 0 potassium chloride 10 mEq capsule, extended release 20 meq PO QAM RF: 0 lactase [Lactaid] 3,000 unit Tablet 9,000 unit PO AC PRN (Reason: Stomach Upset) RF: 0 simethicone 125 mg Tablet 125 mg PO DAILY PRN (Reason: Gastrointestinal Spasms Or Cramping) RF: 0 Discontinued digoxin 125 mcg tablet 0.125 mg PO QAM RF: 0 Lantus Solostar U-100 Insulin 100 unit/mL (3 mL) insulin pen 45 units SUBCUT HS Qty: 0 RF: 0 oxycodone 5 mg capsule 5 mg PO DAILY RF: 0 metoprolol succinate 25 mg tablet extended release 24 hr 50 mg PO QAM RF: 0 furosemide 40 mg tablet 40 mg PO UD RF: 0 insulin aspart U-100 [Novolog PenFill U-100 Insulin] 100 unit/mL Cartridge 1 sliding scale dose SUBCUT TID RF: 0 No Action (DME) blood-glucose meter [Accu-Chek Naz Plus Meter] misc See Dose Instructions .ROUTE .MEDSUPPLY Qty: 1 RF: 0 (DME) lancets [Accu-Chek Softclix Lancets] misc See Dose Instructions .ROUTE .MEDSUPPLY Qty: 400 RF: 3 (DME) Accu-Chek Naz Plus test strp strip See Dose Instructions .ROUTE .MEDSUPPLY Qty: 400 RF: 3 (DME) Oxygen Home Liters Per Minute See Dose Instructions .ROUTE .MEDSUPPLY Qty: 1 RF: 0 Discharge Orders: Discharge Order (Routine); Ordered 11/14/19 Ordered By: Drew Win/Other Patient Handouts: Diabetes Jail Complications, Hyperglycemia, Hypoglycemia, Blood Sugar Check, Diabetes Healthy Meals, Understanding Carbohydrates, Diabetes Exercise Benefits, Diabetes Exercise Get Started, Diabetes Living Life, Diabetes Manage A1C Test Admission Data Admit Date/Time: 11/05/19 12:53 Attending Provider: Amanda Bettencourt Admit Provider: Aashish Barroso Primary Care Provider: Madison Vivar Other Providers: [facility] ; Lane Roman ; Heartira, ; Aashish Barroso ; Cristi Vaughan ; Prabhakar Guallpa Other Interventions: Discharge Summary Assessment (RN) Last Done: 11/14/19 15:17 DC Date/Time DO NOT enter until pt leaves facility: 11/14/19 16:02 Supervising Physician Co-Signing Physician Notes Resident Physician Supervision Note: I independently interviewed and examined the patient and verified the aguirre history and physical, reviewed labs and image studies, discussed the case with the resident Dr. Villarreal and agree with the findings and care plan. Resident Activity Tracking Resident Involvement: Resident Care Provided Care Provided: Adult Hospital Medicine
== END 2019-11-14 16:02 | DRG 481 ==
LOC: ED 09:21 → 2S 12:53 → SUATTDRO 12:53 → 2S 13:49 → 3W 11-12 15:02

== ENCOUNTER 2020-01-20 20:01 | Inpatient (IN) ==
[2020-01-20] MEDS ORDERED: SODIUM CHLORIDE 0.9% 1000ML 1,000 ML IV ONE (20:18)
--- NOTE | 2020-01-20 20:28 | Emergency Department Note ---
History of Present Illness General Chief complaint: Back Injury/Pain Stated complaint: back pain Time Seen by Provider: 01/20/20 20:03 Source: patient Mode of arrival: EMS Limitations: no limitations History of Present Illness Provider complaint: Back pain Onset (ago): unknown Radiation: non-radiation Severity: moderate Quality: + constant Relieved By: + none Exacerbated By: + none Associated symptoms: + fever/chills and + weakness; no chest pain, no cough, no headaches, no nausea/vomiting and no shortness of breath Treatments prior to arrival: other (Tylenol) This is a 54-year-old female from a local rehab facility who presents tonight complaining of worsening back pain. Per her report she has back pain often, however in the last 2 days it is felt worse. Patient states she does have a history of colon cancer. Denies any history of spinal metastases. States she is at rehab due to a recent hip fracture and subsequent surgery. No recent back surgery, injection, or other instrumentation. Patient states she has not had her follow-up appointment yet with the orthopedic surgeon. She is not currently participating in any rehab. Patient denies any other changes in her overall health. Denies any recent sick contacts. Patient states she was told today that she did have a fever although denies feeling as though she had one. Patient states she was given Tylenol today, no other pain medications. Patient denies any fall or new trauma. Patient denies any change in bowel or bladder function. Denies any nausea or vomiting. States she has not had a normal appetite recently. She denies any chest pain or trouble breathing. Pt seen during a time of high acuity and national emergency pandemic while wearing PPE. Home Medications Home Medications Medication Instructions Recorded Confirmed Type Breo Ellipta 1 inh INHALATION DAILY MDD 1 dose 06/11/18 01/20/20 History in 24 hours magnesium oxide 400 mg PO QAM 06/11/18 01/20/20 History spironolactone 12.5 mg PO DAILY 01/15/19 01/20/20 History capecitabine 500 mg tablet 1,500 mg PO BID tab 05/28/19 01/20/20 History prochlorperazine maleate 10 mg 10 mg PO .Q8HR PRN 05/28/19 01/20/20 History tablet Oxygen Home #1 ea 07/01/19 10/22/19 History ferrous sulfate 325 mg (65 mg 325 mg PO QAM tab 07/02/19 01/20/20 History iron) tablet sucralfate 1 gram tablet 1 gm PO ONCE PRN tab 07/02/19 01/20/20 History lactase [Lactaid] 9,000 unit PO AC PRN 08/26/19 01/20/20 History simethicone 125 mg PO DAILY PRN 08/26/19 01/20/20 History blood-glucose meter #1 ea 09/18/19 10/22/19 Rx lancets #400 ea 09/18/19 10/22/19 Rx blood sugar diagnostic #400 ea 09/26/19 10/22/19 Rx levothyroxine 1,200 mcg PO QAM 10/07/19 01/20/20 History omeprazole 40 mg PO DAILY 10/07/19 01/20/20 History acetaminophen [Tylenol] 650 mg PO Q6 PRN 01/20/20 01/20/20 History albuterol sulfate [Ventolin HFA] 2 puff INHALATION Q6 PRN 01/20/20 01/20/20 History apixaban [Eliquis] 2.5 mg PO BID 01/20/20 01/20/20 History insulin aspart U-100 [Novolog 10 unit SUBCUT AC 01/20/20 01/20/20 History U-100 Insulin aspart] insulin glargine [Lantus U-100 8 unit SUBCUT HS 01/20/20 01/20/20 History Insulin] melatonin 2 mg PO HS 01/20/20 01/20/20 History potassium chloride 20 meq PO QAM 01/20/20 01/20/20 History fentanyl 12 mcg TRANSDERMAL Q3D #5 ea 01/24/20 Rx levothyroxine [Synthroid] 1,100 mcg PO DAILYBB 30 Days #165 01/24/20 Rx tab morphine 5 mg PO Q3H PRN #100 ml 01/24/20 Rx morphine concentrate 5 mg PO Q4H PRN #15 ml 01/24/20 Rx Allergies Allergy/AdvReac Type Severity Reaction Status Date / Time daptomycin Allergy Severe SHORTNESS Verified 01/20/20 22:43 OF BREATH Iodinated Contrast Media Allergy Severe Anaphylaxis Verified 01/20/20 22:43 bee venom protein (honey bee) Allergy Intermediate HIVES Verified 04/21/20 22:43 clindamycin Allergy Intermediate HIVES Verified 01/20/20 22:43 Sulfa (Sulfonamide Allergy Intermediate BACTRIM-HIV Verified 01/20/20 22:43 Antibiotics) ES trimethoprim Allergy Intermediate HIVES Verified 01/20/20 22:43 vancomycin Allergy Intermediate RASH Verified 01/20/20 22:43 dulaglutide AdvReac Severe BRAND-TRULICITY, Verified 01/20/20 22:43 SEVERE GI UPSET, CONSTIPATION lactose AdvReac INTOLERANCE Verified 01/20/20 23:10 Past Med/Surg History Medical History Anasarca (Acute) Anemia (Acute) Arthritis (Acute) Asthma (Acute) Atrial fibrillation C. 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 GETA. MAC 3, grade 2 view. 7.0ETT. Rectal pain (Acute) Surgical History H/O carpal tunnel repair H/O total hysterectomy History of cardiac cath History of closure of ileostomy History of colostomy reversal History of ear surgery Eustachian tube History of laparotomy History of lung surgery History of surgical procedure Venous access port placement S/P colectomy S/P debridement Abdomen S/P T&A (status post tonsillectomy and adenoidectomy) S/P total knee arthroplasty Bilateral Family History Sister Hypothyroidism Myocardial infarction Mother Hypothyroidism Cardiac disorder Diabetes Myocardial infarction Father Myocardial infarction Cardiac disorder Diabetes Daughter Gallbladder disease Other Coronary heart disease Denies family history of Ovarian cancer Prostate cancer Breast cancer Colorectal cancer Social History Preferred Language: Mauritian Communication Ability: Effective 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 and A total of 10 systems reviewed and were otherwise negative Physical Exam Vital Signs Vital Signs - 24 hr 01/20/20 20:03 01/20/20 20:09 01/20/20 20:25 Temperature 37 C Temperature Source Oral Pulse Rate 112 H 106 H 107 H Pulse Rate from SpO2 Sensor 117 H 117 H Respiratory Rate 23 20 22 Respiratory Depth Normal Blood Pressure 124/85 127/85 Blood Pressure Mean 98 99 Blood Pressure Position Lying Pulse Oximetry 99 99 99 Oxygen Delivery Method Room Air Sepsis Recent Fever Within 48 Hours Yes Sepsis New/Unexplained Change in Mental Status No Sepsis Action Taken by Nursing No Action Required 01/20/20 20:30 01/20/20 20:45 01/20/20 21:00 Temperature Temperature Source Pulse Rate 109 H 105 H 90 Pulse Rate from SpO2 Sensor 105 H 102 H 97 H Respiratory Rate 21 20 23 Respiratory Depth Blood Pressure 104/75 123/77 Blood Pressure Mean 85 89 Blood Pressure Position Pulse Oximetry 98 99 98 Oxygen Delivery Method Sepsis Recent Fever Within 48 Hours Sepsis New/Unexplained Change in Mental Status Sepsis Action Taken by Nursing 01/20/20 21:15 01/20/20 21:30 01/20/20 21:45 Temperature Temperature Source Pulse Rate 103 H 108 H 108 H Pulse Rate from SpO2 Sensor 108 H 114 H 115 H Respiratory Rate 20 24 17 Respiratory Depth Blood Pressure 139/83 Blood Pressure Mean 97 Blood Pressure Position Pulse Oximetry 98 98 99 Oxygen Delivery Method Sepsis Recent Fever Within 48 Hours Sepsis New/Unexplained Change in Mental Status Sepsis Action Taken by Nursing 01/20/20 22:00 01/20/20 22:15 01/20/20 22:30 Temperature Temperature Source Pulse Rate 94 H 105 H 119 H Pulse Rate from SpO2 Sensor 97 H 108 H 100 H Respiratory Rate 22 20 22 Respiratory Depth Blood Pressure 102/69 Blood Pressure Mean 77 Blood Pressure Position Pulse Oximetry 98 99 97 Oxygen Delivery Method Sepsis Recent Fever Within 48 Hours Sepsis New/Unexplained Change in Mental Status Sepsis Action Taken by Nursing 01/20/20 22:31 01/20/20 22:45 01/20/20 23:00 Temperature Temperature Source Pulse Rate 111 H 94 H 100 H Pulse Rate from SpO2 Sensor 107 H 104 H 99 H Respiratory Rate 22 25 H 22 Respiratory Depth Blood Pressure 122/77 108/79 Blood Pressure Mean 91 89 Blood Pressure Position Pulse Oximetry 98 97 98 Oxygen Delivery Method Sepsis Recent Fever Within 48 Hours Sepsis New/Unexplained Change in Mental Status Sepsis Action Taken by Nursing 01/20/20 23:10 01/20/20 23:20 01/20/20 23:30 Temperature Temperature Source Pulse Rate 89 120 H 110 H Pulse Rate from SpO2 Sensor 108 H 116 H 95 H Respiratory Rate 23 27 H 26 H Respiratory Depth Blood Pressure Blood Pressure Mean Blood Pressure Position Pulse Oximetry 98 98 96 Oxygen Delivery Method Sepsis Recent Fever Within 48 Hours Sepsis New/Unexplained Change in Mental Status Sepsis Action Taken by Nursing 01/20/20 23:31 01/20/20 23:40 01/20/20 23:50 Temperature Temperature Source Pulse Rate 104 H 96 H 104 H Pulse Rate from SpO2 Sensor 104 H 104 H 106 H Respiratory Rate 24 20 22 Respiratory Depth Blood Pressure 109/88 Blood Pressure Mean 93 Blood Pressure Position Pulse Oximetry 97 98 98 Oxygen Delivery Method Sepsis Recent Fever Within 48 Hours Sepsis New/Unexplained Change in Mental Status Sepsis Action Taken by Nursing 01/21/20 00:00 Temperature Temperature Source Pulse Rate 91 H Pulse Rate from SpO2 Sensor 112 H Respiratory Rate 20 Respiratory Depth Blood Pressure 109/67 Blood Pressure Mean 88 Blood Pressure Position Pulse Oximetry 98 Oxygen Delivery Method Sepsis Recent Fever Within 48 Hours Sepsis New/Unexplained Change in Mental Status Sepsis Action Taken by Nursing GENERAL: alert, ill appearing, well nourished, no distress, non-toxic EYE EXAM: normal conjunctiva, PERRL and EOM's grossly intact OROPHARYNX: no exudate, no erythema, lips, buccal mucosa, and tongue normal and mucous membranes are moist NECK: supple, no nuchal rigidity, no adenopathy, non-tender LUNGS: Clear to auscultation. Normal chest wall mechanics, no w/r/r HEART: no murmurs, S1 normal and S2 normal ABDOMEN: abdomen soft, non-tender, normo-active bowel sounds, no masses, no rebound or guarding. BACK: Back is symmetrical on inspection and there is no deformity, no midline tenderness, no CVA tenderness. SKIN: no rashes and no bruising UPPER EXTREMITIES: upper extremities are grossly normal. FROM, nml pulses b/l. LOWER EXTREMITIES: No pitting edema. FROM, nml pulses b/l. Surgical scar noted to left lateral hip. Rest of the patient's left lower extremity is in a brace. NEURO EXAM: Normal sensorium, cranial nerves II-XII grossly intact, normal speech, no gross weakness of arms, unable to assess additional strength of lower extremities due to recent surgery and postop brace. Gross sensation intact. Course Course 2024: Charge nurse Oscar just alerted me that he spoke with staff from the facility who state they sent her in due to concern for a low-grade fever of 100 earlier today that resolved with Tylenol however this was also in the presence of what they felt was right lower quadrant abdominal swelling. They tried to contact the physician earlier in the day and an order had been placed as an outpatient for imaging. They state the patient has chronic back pain. They have not perceived any change in her chronic back pain. They states she is they are rehabbing after her recent fracture and surgery. 1: Patient updated on results. Patient denies any current abdominal pain. States her back pain feels that her normal rate. Patient is still tachycardic at this time. No recurrent fever although patient was given Tylenol just before transfer to the ER. 2335: Case discussed with Dr. Guerrero for additional inpatient evaluation and management. Administered Medications Acetaminophen (Tylenol) 650 mg PO Q6 PRN PRN Reason: Fever Or Pain Stop: 02/20/20 01:44 Last Admin: 01/22/20 11:09 Dose: 650 mg Documented by: [id number] Fentanyl (Duragesic) 12 mcg TD Q3D [facility] Stop: 02/05/20 15:29 Last Admin: 01/22/20 15:41 Dose: 12 mcg Documented by: [id number] Ferrous Sulfate (Feosol) 325 mg PO Q24H [facility] Stop: 02/20/20 07:59 Last Admin: 01/24/20 08:04 Dose: 325 mg Documented by: [id number] Admin: 01/23/20 09:11 Dose: 325 mg Documented by: [id number] Admin: 01/22/20 08:17 Dose: 325 mg Documented by: [id number] Admin: 01/21/20 07:48 Dose: 325 mg Documented by: [id number] Fluticasone/Vilanterol (Breo Ellipta 100/25 Mcg Inh) 1 puffs INH Q24H EL[facility]ABETH Stop: 02/20/20 07:59 Last Admin: 01/24/20 08:04 Dose: 1 puffs Documented by: [id number] Admin: 01/23/20 09:12 Dose: 1 puffs Documented by: [id number] Admin: 01/22/20 08:16 Dose: 1 puffs Documented by: [id number] Admin: 01/21/20 07:48 Dose: 1 puffs Documented by: [id number] Ertapenem 1,000 mg/ Sodium (Chloride) 60 mls @ 100 mls/hr IV DAILY@1200 ELIZABETH; Protocol Stop: 01/29/20 12:35 Last Infusion: 01/24/20 13:37 Dose: 0 mls/hr Documented by: [id number] Admin: 01/24/20 12:48 Dose: 100 mls/hr Documented by: [id number] Infusion: 01/23/20 13:49 Dose: 0 mls/hr Documented by: [id number] Admin: 01/23/20 13:12 Dose: 100 mls/hr Documented by: [id number] Insulin Aspart (Novolog Flexpen) 0 units SC 0800,1200,1600,2000 [facility] Stop: 02/20/20 07:59 Last Admin: 01/24/20 20:06 Dose: Not Given Documented by: [id number] Cosigned by: [id number] Admin: 01/24/20 17:47 Dose: 8 units Documented by: [id number] Cosigned by: [id number] Admin: 01/24/20 12:48 Dose: 9 units Documented by: [id number] Cosigned by: [id number] Admin: 01/24/20 09:19 Dose: 8 units Documented by: [id number] Cosigned by: [id number] Admin: 01/23/20 19:59 Dose: 3 units Documented by: [id number] Cosigned by: [id number] Admin: 01/23/20 17:44 Dose: 9 units Documented by: [id number] Cosigned by: [id number] Admin: 01/23/20 13:13 Dose: 3 units Documented by: [id number] Cosigned by: [id number] Admin: 01/23/20 09:50 Dose: 4 units Documented by: [id number] Cosigned by: [id number] Admin: 01/22/20 21:16 Dose: 7 units Documented by: [id number] Cosigned by: [id number] Admin: 01/22/20 17:04 Dose: 6 units Documented by: [id number] Cosigned by: [id number] Admin: 01/22/20 12:51 Dose: 1 units Documented by: [id number] Cosigned by: [id number] Admin: 01/22/20 08:25 Dose: Not Given Documented by: [id number] Cosigned by: [id number] Admin: 01/21/20 19:25 Dose: 5 units Documented by: [id number] Cosigned by: [id number] Admin: 01/21/20 18:03 Dose: 8 units Documented by: [id number] Cosigned by: [id number] Admin: 01/21/20 12:06 Dose: 1 units Documented by: [id number] Cosigned by: [id number] Admin: 01/21/20 09:41 Dose: Not Given Documented by: [id number] Cosigned by: [id number] Insulin Glargine (Lantus Solostar Pen) 8 units SQ Q24H [facility]IZABETH Stop: 02/20/20 19:59 Last Admin: 01/24/20 20:07 Dose: 8 units Documented by: [id number] Cosigned by: [id number] Admin: 01/23/20 19:59 Dose: 8 units Documented by: [id number] Cosigned by: [id number] Admin: 01/22/20 21:17 Dose: 8 units Documented by: [id number] Cosigned by: [id number] Admin: 01/21/20 19:25 Dose: 8 units Documented by: [id number] Cosigned by: [id number] Levothyroxine Sodium (Synthroid) 1,100 mcg PO DAILYBB [facility]ETH Stop: 02/21/20 06:29 Last Admin: 01/24/20 06:15 Dose: 1,100 mcg Documented by: [id number] Admin: 01/23/20 06:21 Dose: 1,100 mcg Documented by: [id number] Admin: 01/22/20 06:08 Dose: Not Given Documented by: [id number] Magnesium Oxide (Mag-Ox) 400 mg PO Q24H ELIZABETH Stop: 02/20/20 07:59 Last Admin: 01/24/20 08:04 Dose: 400 mg Documented by: [id number] Admin: 01/23/20 09:12 Dose: 400 mg Documented by: [id number] Admin: 01/22/20 08:17 Dose: 400 mg Documented by: [id number] Admin: 01/21/20 07:48 Dose: 400 mg Documented by: [id number] Miscellaneous (Order Awaiting Action) 1 ea N/A QS [facility]ETH Stop: 02/20/20 07:59 Last Admin: 01/24/20 15:59 Dose: Not Given Documented by: [id number] Admin: 01/24/20 08:05 Dose: Not Given Documented by: [id number] Admin: 01/24/20 00:03 Dose: Not Given Documented by: [id number] Admin: 01/23/20 16:05 Dose: Not Given Documented by: [id number] Admin: 01/23/20 09:10 Dose: Not Given Documented by: [id number] Admin: 01/23/20 01:13 Dose: Not Given Documented by: [id number] Admin: 01/22/20 15:47 Dose: Not Given Documented by: [id number] Admin: 01/22/20 08:18 Dose: Not Given Documented by: [id number] Admin: 01/21/20 23:37 Dose: Not Given Documented by: [id number] Admin: 01/21/20 15:50 Dose: Not Given Documented by: [id number] Admin: 01/21/20 09:05 Dose: Not Given Documented by: [id number] Miscellaneous (Fentanyl Patch Check Placement) 1 ea N/A QS [facility]AB[facility] Stop: 02/21/20 15:59 Last Admin: 01/24/20 15:59 Dose: 1 ea Documented by: [id number] Admin: 01/24/20 08:05 Dose: 1 ea Documented by: [id number] Admin: 01/24/20 00:02 Dose: 1 ea Documented by: [id number] Admin: 01/23/20 16:17 Dose: 1 ea Documented by: [id number] Admin: 01/23/20 09:11 Dose: 1 ea Documented by: [id number] Admin: 01/23/20 01:45 Dose: 1 ea Documented by: [id number] Admin: 01/22/20 15:46 Dose: 1 ea Documented by: [id number] Morphine Sulfate (Roxanol) 5 mg PO Q4H PRN PRN Reason: Pain Stop: 02/05/20 14:38 Last Admin: 01/24/20 15:58 Dose: 5 mg Documented by: [id number] Admin: 01/24/20 08:02 Dose: 5 mg Documented by: [id number] Admin: 01/24/20 03:23 Dose: 5 mg Documented by: [id number] Admin: 01/23/20 20:04 Dose: 5 mg Documented by: [id number] Admin: 01/23/20 16:04 Dose: 5 mg Documented by: [id number] Admin: 01/23/20 09:47 Dose: 5 mg Documented by: [id number] Admin: 01/23/20 05:02 Dose: 5 mg Documented by: [id number] Admin: 01/22/20 17:17 Dose: 5 mg Documented by: [id number] Pantoprazole Sodium (Protonix) 40 mg PO Q24H [facility]ABETH Stop: 02/20/20 07:59 Last Admin: 01/24/20 08:04 Dose: 40 mg Documented by: [id number] Admin: 01/23/20 09:12 Dose: 40 mg Documented by: [id number] Admin: 01/22/20 08:17 Dose: 40 mg Documented by: [id number] Admin: 01/21/20 07:48 Dose: 40 mg Documented by: [id number] Potassium Chloride (Klor-Con M20) 20 meq PO Q24H [facility]ABETH Stop: 02/20/20 07:59 Last Admin: 01/24/20 08:04 Dose: 20 meq Documented by: [id number] Admin: 01/23/20 09:12 Dose: 20 meq Documented by: [id number] Admin: 01/22/20 08:17 Dose: 20 meq Documented by: [id number] Admin: 01/21/20 07:48 Dose: 20 meq Documented by: [id number] Spironolactone (Aldactone) 12.5 mg PO Q24H [facility]ETH Stop: 02/20/20 07:59 Last Admin: 01/24/20 08:04 Dose: 12.5 mg Documented by: [id number] Admin: 01/23/20 09:11 Dose: 12.5 mg Documented by: [id number] Admin: 01/22/20 08:16 Dose: 12.5 mg Documented by: [id number] Admin: 01/21/20 07:48 Dose: 12.5 mg Documented by: [id number] Discontinued Medications Sodium Chloride (Nss 1000ml) 1,000 mls @ 999 mls/hr IV .Q1H1M ONE Stop: 01/20/20 21:18 Last Infusion: 01/20/20 21:41 Dose: 0 mls/hr Documented by: [id number] Admin: 01/20/20 20:44 Dose: 999 mls/hr Documented by: [id number] Piperacillin Sod/Tazobactam Sod (Zosyn) 4.5 gm in 120 mls @ 240 mls/hr IV NOW ONE Stop: 01/20/20 22:55 Last Infusion: 01/20/20 22:56 Dose: 0 mls/hr Documented by: [id number] Admin: 01/20/20 22:36 Dose: 240 mls/hr Documented by: [id number] Sodium Chloride (Nss 1000ml) 1,000 mls @ 125 mls/hr IV .Q8H [facility]ETH Stop: 02/19/20 23:44 Last Infusion: 01/21/20 00:16 Dose: 0 mls/hr Documented by: [id number] Admin: 01/21/20 00:16 Dose: 125 mls/hr Documented by: [id number] Magnesium Sulfate/Dextrose (Magnesium Sulfate / D5w) 1 gm in 100 mls @ 100 mls/hr IV ONE ONE Stop: 01/21/20 03:14 Last Infusion: 01/21/20 03:44 Dose: 0 mls/hr Documented by: [id number] Admin: 01/21/20 02:44 Dose: 100 mls/hr Documented by: [id number] Piperacillin Sod/Tazobactam (Sod 3.375 gm/ Dextrose) 115 mls @ 28.75 mls/hr IV Q8H [facility]IZABETH; Protocol Stop: 01/26/20 03:59 Last Infusion: 01/23/20 09:10 Dose: 0 mls/hr Documented by: [id number] Admin: 01/23/20 04:55 Dose: 28.8 mls/hr Documented by: [id number] Infusion: 01/23/20 01:17 Dose: 0 mls/hr Documented by: [id number] Admin: 01/22/20 21:17 Dose: 28.8 mls/hr Documented by: [id number] Infusion: 01/22/20 16:43 Dose: 0 mls/hr Documented by: [id number] Admin: 01/22/20 12:43 Dose: 28.8 mls/hr Documented by: [id number] Infusion: 01/22/20 08:05 Dose: 0 mls/hr Documented by: [id number] Admin: 01/22/20 04:05 Dose: 28.8 mls/hr Documented by: [id number] Infusion: 01/22/20 01:09 Dose: 0 mls/hr Documented by: [id number] Admin: 01/21/20 19:24 Dose: 28.8 mls/hr Documented by: [id number] Infusion: 01/21/20 18:41 Dose: 0 mls/hr Documented by: [id number] Infusion: 01/21/20 15:45 Dose: 28.8 mls/hr Documented by: [id number] Infusion: 01/21/20 12:56 Dose: 0 mls/hr Documented by: [id number] Admin: 01/21/20 11:52 Dose: 28.8 mls/hr Documented by: [id number] Infusion: 01/21/20 07:51 Dose: 0 mls/hr Documented by: [id number] Admin: 01/21/20 03:49 Dose: 28.8 mls/hr Documented by: [id number] Sincalide 1.3 mcg/ Sodium (Chloride) 101.3 mls @ 200 mls/hr IV ONE ONE Stop: 01/21/20 14:00 Last Admin: 01/21/20 15:38 Dose: Not Given Documented by: [id number] Levothyroxine Sodium (Synthroid) 1,200 mcg PO Q24H [facility] Stop: 02/20/20 03:59 Last Admin: 01/21/20 05:34 Dose: 1,200 mcg Documented by: [id number] Morphine Sulfate (Morphine Sulfate) 1 mg IV Q4H PRN PRN Reason: Moderate Pain (4,5,6) Stop: 02/04/20 04:56 Last Admin: 01/22/20 04:04 Dose: 1 mg Documented by: [id number] Admin: 01/21/20 05:35 Dose: 1 mg Documented by: [id number] Morphine Sulfate (Morphine Sulfate) 2 mg IV Q4H PRN PRN Reason: Severe Pain (7,8,9,10) Stop: 02/04/20 04:56 Last Admin: 01/22/20 12:43 Dose: 2 mg Documented by: [id number] Admin: 01/22/20 08:10 Dose: 2 mg Documented by: [id number] Admin: 01/21/20 22:19 Dose: 2 mg Documented by: [id number] Tramadol HCl (Ultram) 50 mg PO NOW STA Stop: 01/20/20 22:58 Last Admin: 01/20/20 23:09 Dose: 50 mg Documented by: [id number] Medical Decision Making Differential Diagnosis Differential diagnoses includes but is not limited to lumbar radiculopathy, muscle strain, facture, metastatic disease, cauda equina, mass, disc herniation, renal colic, pyelonephritis, AAA, as well as others were considered. Medical Records Attestation: I reviewed the patient's medical records. Home Medications Current Medication List: was personally reviewed by me Laboratory Data Attestation: I reviewed the patient's lab results. Result diagrams: 01/22/20 05:42 01/22/20 05:42 Lab Results 01/20/20 01/20/20 01/20/20 Range/Units 20:15 20:30 20:30 WBC 7.66 (4.8-10.8) K/uL RBC 3.10 L (4.2-5.4) M/uL Hgb 10.0 L (12.0-16.0) g/dL Hct 30.5 L (37-47) % MCV 98.4 (80-100) fL MCH 32.3 (25-34) pg MCHC 32.8 (32-36) g/dL RDW Std Deviation 81.9 H (36.4-46.3) fL RDW Coeff of Stanley 23.0 H (11.5-14.5) % Plt Count 207 (130-400) K/uL MPV 9.2 (7.4-10.4) fL Immature Gran % (Auto) 0.3 % Neut % (Auto) 69.6 % Lymph % (Auto) 18.3 % Parke % (Auto) 11.0 % Eos % (Auto) 0.8 % Baso % (Auto) 0.0 % Immature Gran # (Auto) 0.02 (0.00-0.02) K/uL Neut # (Auto) 5.34 (1.4-6.5) K/uL Lymph # (Auto) 1.40 (1.2-3.4) K/uL Parke # (Auto) 0.84 H (0.11-0.59) K/uL Eos # (Auto) 0.06 (0-0.5) K/uL Baso # (Auto) 0.00 (0-0.2) K/uL Polychromasia 1+ Poikilocytosis Present Anisocytosis Present PT (9.0-12.0) Seconds INR (0.9-1.1) APTT (21.0-31.0) Seconds PTT Ratio Sodium (136-145) mmol/L Potassium (3.5-5.1) mmol/L Chloride (98-107) mmol/L Carbon Dioxide (21-32) mmol/L Anion Gap (3-11) BUN (7-18) mg/dl Creatinine (0.6-1.2) mg/dl Est Cr Clr Drug Dosing ml/min Est GFR ( Amer) Est GFR (Non-Af Amer) BUN/Creatinine Ratio (10-20) Glucose (70-99) mg/dl POC Glucose (70-99) mg/dl Lactate (0.4-2.0) mmol/L Calcium (8.5-10.1) mg/dl Phosphorus (2.5-4.9) mg/dl Magnesium (1.8-2.4) mg/dl Total Bilirubin (0.2-1) mg/dl AST (15-37) U/L ALT (12-78) U/L Alkaline Phosphatase (45-117) U/L Ammonia (11-32) umol/L Troponin I (0-0.045) ng/ml NT-Pro-B Natriuret Pep (0-900) pg/ml Total Protein (6.4-8.2) gm/dl Albumin (3.4-5.0) gm/dl Globulin (2.5-4.0) gm/dl Albumin/Globulin Ratio (0.9-2) Carcinoembryonic Ag (0-2.5) ng/ml Procalcitonin 1.28 H (0-0.5) ng/ml TSH (0.300-4.500) uIu/ml Free T4 (0.8-1.6) ng/dl Urine Color Dark Yellow Urine Appearance Clear (Clear) Urine pH 6.5 (4.5-7.5) Ur Specific [place] 1.024 (1.000-1.030) Urine Protein Negative (Negative) Urine Glucose (UA) Negative (Negative) Urine Ketones 1+ H (Negative) Urine Blood Negative (Negative) Urine Nitrite Positive A (Negative) Urine Bilirubin Negative (Negative) Urine Urobilinogen Negative (Negative) Ur Leukocyte Esterase 1+ H (Negative) Urine WBC (Auto) >30 H (0-5) /hpf Urine RBC (Auto) 0-4 (0-4) /hpf U Hyaline Cast (Auto) 10-30 H (0-5) /lpf U Epithel Cells (Auto) 5-10 H (0-5) /lpf Urine Bacteria (Auto) 4+ H (Negative) Nasal Screen MRSA (PCR) (Negative) Influenza Type A (PCR) (Neg) Influenza Type B (PCR) (Neg) 01/20/20 01/20/20 01/20/20 Range/Units 20:30 20:30 20:35 WBC (4.8-10.8) K/uL RBC (4.2-5.4) M/uL Hgb (12.0-16.0) g/dL Hct (37-47) % MCV (80-100) fL MCH (25-34) pg MCHC (32-36) g/dL RDW Std Deviation (36.4-46.3) fL RDW Coeff of Stanley (11.5-14.5) % Plt Count (130-400) K/uL MPV (7.4-10.4) fL Immature Gran % (Auto) % Neut % (Auto) % Lymph % (Auto) % Parke % (Auto) % Eos % (Auto) % Baso % (Auto) % Immature Gran # (Auto) (0.00-0.02) K/uL Neut # (Auto) (1.4-6.5) K/uL Lymph # (Auto) (1.2-3.4) K/uL Parke # (Auto) (0.11-0.59) K/uL Eos # (Auto) (0-0.5) K/uL Baso # (Auto) (0-0.2) K/uL Polychromasia Poikilocytosis Anisocytosis PT 14.5 H (9.0-12.0) Seconds INR 1.4 H (0.9-1.1) APTT 28.8 (21.0-31.0) Seconds PTT Ratio 1.0 Sodium 140 (136-145) mmol/L Potassium 3.9 (3.5-5.1) mmol/L Chloride 110 H (98-107) mmol/L Carbon Dioxide 24 (21-32) mmol/L Anion Gap 6.0 (3-11) BUN 22 H (7-18) mg/dl Creatinine 0.67 (0.6-1.2) mg/dl Est Cr Clr Drug Dosing 84.1 ml/min Est GFR ( Amer) 113.9 Est GFR (Non-Af Amer) 98.3 BUN/Creatinine Ratio 33.2 H (10-20) Glucose 88 (70-99) mg/dl POC Glucose (70-99) mg/dl Lactate 1.9 (0.4-2.0) mmol/L Calcium 8.7 (8.5-10.1) mg/dl Phosphorus (2.5-4.9) mg/dl Magnesium 1.8 (1.8-2.4) mg/dl Total Bilirubin 3.2 H (0.2-1) mg/dl AST 20 (15-37) U/L ALT 14 (12-78) U/L Alkaline Phosphatase 125 H (45-117) U/L Ammonia (11-32) umol/L Troponin I 0.145 H* (0-0.045) ng/ml NT-Pro-B Natriuret Pep (0-900) pg/ml Total Protein 5.7 L (6.4-8.2) gm/dl Albumin 2.8 L (3.4-5.0) gm/dl Globulin 2.9 (2.5-4.0) gm/dl Albumin/Globulin Ratio 1.0 (0.9-2) Carcinoembryonic Ag (0-2.5) ng/ml Procalcitonin (0-0.5) ng/ml TSH (0.300-4.500) uIu/ml Free T4 (0.8-1.6) ng/dl Urine Color Urine Appearance (Clear) Urine pH (4.5-7.5) Ur Specific [place] (1.000-1.030) Urine Protein (Negative) Urine Glucose (UA) (Negative) Urine Ketones (Negative) Urine Blood (Negative) Urine Nitrite (Negative) Urine Bilirubin (Negative) Urine Urobilinogen (Negative) Ur Leukocyte Esterase (Negative) Urine WBC (Auto) (0-5) /hpf Urine RBC (Auto) (0-4) /hpf U Hyaline Cast (Auto) (0-5) /lpf U Epithel Cells (Auto) (0-5) /lpf Urine Bacteria (Auto) (Negative) Nasal Screen MRSA (PCR) (Negative) Influenza Type A (PCR) (Neg) Influenza Type B (PCR) (Neg) 01/20/20 01/21/20 01/21/20 Range/Units 20:47 02:07 02:07 WBC (4.8-10.8) K/uL RBC (4.2-5.4) M/uL Hgb (12.0-16.0) g/dL Hct (37-47) % MCV (80-100) fL MCH (25-34) pg MCHC (32-36) g/dL RDW Std Deviation (36.4-46.3) fL RDW Coeff of Stanley (11.5-14.5) % Plt Count (130-400) K/uL MPV (7.4-10.4) fL Immature Gran % (Auto) % Neut % (Auto) % Lymph % (Auto) % Parke % (Auto) % Eos % (Auto) % Baso % (Auto) % Immature Gran # (Auto) (0.00-0.02) K/uL Neut # (Auto) (1.4-6.5) K/uL Lymph # (Auto) (1.2-3.4) K/uL Parke # (Auto) (0.11-0.59) K/uL Eos # (Auto) (0-0.5) K/uL Baso # (Auto) (0-0.2) K/uL Polychromasia Poikilocytosis Anisocytosis PT (9.0-12.0) Seconds INR (0.9-1.1) APTT (21.0-31.0) Seconds PTT Ratio Sodium (136-145) mmol/L Potassium (3.5-5.1) mmol/L Chloride (98-107) mmol/L Carbon Dioxide (21-32) mmol/L Anion Gap (3-11) BUN (7-18) mg/dl Creatinine (0.6-1.2) mg/dl Est Cr Clr Drug Dosing ml/min Est GFR ( Amer) Est GFR (Non-Af Amer) BUN/Creatinine Ratio (10-20) Glucose (70-99) mg/dl POC Glucose (70-99) mg/dl Lactate (0.4-2.0) mmol/L Calcium (8.5-10.1) mg/dl Phosphorus 3.4 (2.5-4.9) mg/dl Magnesium (1.8-2.4) mg/dl Total Bilirubin (0.2-1) mg/dl AST (15-37) U/L ALT (12-78) U/L Alkaline Phosphatase (45-117) U/L Ammonia 87.0 H (11-32) umol/L Troponin I (0-0.045) ng/ml NT-Pro-B Natriuret Pep 4542 H (0-900) pg/ml Total Protein (6.4-8.2) gm/dl Albumin (3.4-5.0) gm/dl Globulin (2.5-4.0) gm/dl Albumin/Globulin Ratio (0.9-2) Carcinoembryonic Ag (0-2.5) ng/ml Procalcitonin (0-0.5) ng/ml TSH 0.106 L (0.300-4.500) uIu/ml Free T4 > 8.00 H (0.8-1.6) ng/dl Urine Color Urine Appearance (Clear) Urine pH (4.5-7.5) Ur Specific [place] (1.000-1.030) Urine Protein (Negative) Urine Glucose (UA) (Negative) Urine Ketones (Negative) Urine Blood (Negative) Urine Nitrite (Negative) Urine Bilirubin (Negative) Urine Urobilinogen (Negative) Ur Leukocyte Esterase (Negative) Urine WBC (Auto) (0-5) /hpf Urine RBC (Auto) (0-4) /hpf U Hyaline Cast (Auto) (0-5) /lpf U Epithel Cells (Auto) (0-5) /lpf Urine Bacteria (Auto) (Negative) Nasal Screen MRSA (PCR) (Negative) Influenza Type A (PCR) Neg for Influ A (Neg) Influenza Type B (PCR) Neg for Influ B (Neg) 01/21/20 01/21/20 01/21/20 Range/Units 03:28 05:59 07:31 WBC (4.8-10.8) K/uL RBC (4.2-5.4) M/uL Hgb 9.3 L (12.0-16.0) g/dL Hct 28.4 L (37-47) % MCV (80-100) fL MCH (25-34) pg MCHC (32-36) g/dL RDW Std Deviation (36.4-46.3) fL RDW Coeff of Stanley (11.5-14.5) % Plt Count (130-400) K/uL MPV (7.4-10.4) fL Immature Gran % (Auto) % Neut % (Auto) % Lymph % (Auto) % Parke % (Auto) % Eos % (Auto) % Baso % (Auto) % Immature Gran # (Auto) (0.00-0.02) K/uL Neut # (Auto) (1.4-6.5) K/uL Lymph # (Auto) (1.2-3.4) K/uL Parke # (Auto) (0.11-0.59) K/uL Eos # (Auto) (0-0.5) K/uL Baso # (Auto) (0-0.2) K/uL Polychromasia Poikilocytosis Anisocytosis PT (9.0-12.0) Seconds INR (0.9-1.1) APTT (21.0-31.0) Seconds PTT Ratio Sodium (136-145) mmol/L Potassium (3.5-5.1) mmol/L Chloride (98-107) mmol/L Carbon Dioxide (21-32) mmol/L Anion Gap (3-11) BUN (7-18) mg/dl Creatinine (0.6-1.2) mg/dl Est Cr Clr Drug Dosing ml/min Est GFR ( Amer) Est GFR (Non-Af Amer) BUN/Creatinine Ratio (10-20) Glucose (70-99) mg/dl POC Glucose (70-99) mg/dl Lactate (0.4-2.0) mmol/L Calcium (8.5-10.1) mg/dl Phosphorus (2.5-4.9) mg/dl Magnesium (1.8-2.4) mg/dl Total Bilirubin (0.2-1) mg/dl AST (15-37) U/L ALT (12-78) U/L Alkaline Phosphatase (45-117) U/L Ammonia (11-32) umol/L Troponin I 0.132 H* (0-0.045) ng/ml NT-Pro-B Natriuret Pep (0-900) pg/ml Total Protein (6.4-8.2) gm/dl Albumin (3.4-5.0) gm/dl Globulin (2.5-4.0) gm/dl Albumin/Globulin Ratio (0.9-2) Carcinoembryonic Ag (0-2.5) ng/ml Procalcitonin (0-0.5) ng/ml TSH (0.300-4.500) uIu/ml Free T4 (0.8-1.6) ng/dl Urine Color Urine Appearance (Clear) Urine pH (4.5-7.5) Ur Specific [place] (1.000-1.030) Urine Protein (Negative) Urine Glucose (UA) (Negative) Urine Ketones (Negative) Urine Blood (Negative) Urine Nitrite (Negative) Urine Bilirubin (Negative) Urine Urobilinogen (Negative) Ur Leukocyte Esterase (Negative) Urine WBC (Auto) (0-5) /hpf Urine RBC (Auto) (0-4) /hpf U Hyaline Cast (Auto) (0-5) /lpf U Epithel Cells (Auto) (0-5) /lpf Urine Bacteria (Auto) (Negative) Nasal Screen MRSA (PCR) Negative (Negative) Influenza Type A (PCR) (Neg) Influenza Type B (PCR) (Neg) 01/21/20 01/21/20 01/21/20 Range/Units 07:31 07:36 07:39 WBC (4.8-10.8) K/uL RBC (4.2-5.4) M/uL Hgb (12.0-16.0) g/dL Hct (37-47) % MCV (80-100) fL MCH (25-34) pg MCHC (32-36) g/dL RDW Std Deviation (36.4-46.3) fL RDW Coeff of Stanley (11.5-14.5) % Plt Count (130-400) K/uL MPV (7.4-10.4) fL Immature Gran % (Auto) % Neut % (Auto) % Lymph % (Auto) % Parke % (Auto) % Eos % (Auto) % Baso % (Auto) % Immature Gran # (Auto) (0.00-0.02) K/uL Neut # (Auto) (1.4-6.5) K/uL Lymph # (Auto) (1.2-3.4) K/uL Parke # (Auto) (0.11-0.59) K/uL Eos # (Auto) (0-0.5) K/uL Baso # (Auto) (0-0.2) K/uL Polychromasia Poikilocytosis Anisocytosis PT (9.0-12.0) Seconds INR (0.9-1.1) APTT (21.0-31.0) Seconds PTT Ratio Sodium 137 (136-145) mmol/L Potassium 3.7 (3.5-5.1) mmol/L Chloride 110 H (98-107) mmol/L Carbon Dioxide 21 (21-32) mmol/L Anion Gap 6.0 (3-11) BUN 20 H (7-18) mg/dl Creatinine 0.60 (0.6-1.2) mg/dl Est Cr Clr Drug Dosing 87.1 ml/min Est GFR ( Amer) 118.1 Est GFR (Non-Af Amer) 101.9 BUN/Creatinine Ratio 33.1 H (10-20) Glucose 124 H (70-99) mg/dl POC Glucose 130 H (70-99) mg/dl Lactate (0.4-2.0) mmol/L Calcium 8.6 (8.5-10.1) mg/dl Phosphorus (2.5-4.9) mg/dl Magnesium (1.8-2.4) mg/dl Total Bilirubin 3.4 H (0.2-1) mg/dl AST 19 (15-37) U/L ALT 13 (12-78) U/L Alkaline Phosphatase 112 (45-117) U/L Ammonia (11-32) umol/L Troponin I (0-0.045) ng/ml NT-Pro-B Natriuret Pep (0-900) pg/ml Total Protein 5.3 L (6.4-8.2) gm/dl Albumin 2.6 L (3.4-5.0) gm/dl Globulin 2.7 (2.5-4.0) gm/dl Albumin/Globulin Ratio 1.0 (0.9-2) Carcinoembryonic Ag 32.7 H (0-2.5) ng/ml Procalcitonin (0-0.5) ng/ml TSH (0.300-4.500) uIu/ml Free T4 (0.8-1.6) ng/dl Urine Color Urine Appearance (Clear) Urine pH (4.5-7.5) Ur Specific [place] (1.000-1.030) Urine Protein (Negative) Urine Glucose (UA) (Negative) Urine Ketones (Negative) Urine Blood (Negative) Urine Nitrite (Negative) Urine Bilirubin (Negative) Urine Urobilinogen (Negative) Ur Leukocyte Esterase (Negative) Urine WBC (Auto) (0-5) /hpf Urine RBC (Auto) (0-4) /hpf U Hyaline Cast (Auto) (0-5) /lpf U Epithel Cells (Auto) (0-5) /lpf Urine Bacteria (Auto) (Negative) Nasal Screen MRSA (PCR) (Negative) Influenza Type A (PCR) (Neg) Influenza Type B (PCR) (Neg) Imaging Data Radiologist's Impression: BDOMEN AND PELVIS CT WITHOUT CONTRAST HISTORY: Acute lower abdominal pain in a patient with history of metastatic colon cancer lower abd pain, hx colon ca TECHNIQUE: Multiaxial CT images of the abdomen and pelvis were performed without contrast. A dose lowering technique was utilized adhering to the principles of ALARA. COMPARISON STUDY: CT abdomen pelvis 11/09/2019, 11/05/2019. FINDINGS: Respiratory motion artifact limits evaluation of the lung bases. Postoperative changes of the basal left lower lobe. Trace left and small to moderate right pleural effusions with bibasilar densities suggestive of atelectasis. No pneumatosis or pneumoperitoneum. Motion artifact limits the study. Cardiomegaly. Limited evaluation of the solid abdominal organs without the use of IV contrast. The previously noted hepatic lesions are better seen on the November 05, 2019 exam. No definite new hepatic lesions are identified. Cholelithiasis without CT evidence of acute cholecystitis. Moderate atrophy of the pancreas. Upper abdominal collateral vessels redemonstrated. No discrete adrenal mass identified. Unremarkable appearance of the kidneys. Mild nonspecific urinary bladder wall thickening. Hysterectomy. Postoperative changes within the presacral distribution with 2.5 x 3.6 cm soft tissue nodule involving the posterior wall of the rectum previously measuring 2.1 x 3.3 cm. Interval increased size of multiple perirectal nodules measuring up to 7 mm on image 272 series 3 on the left. This specific nodule measured 5 mm on comparison. Enlarged iliac chain lymph nodes are seen measuring up to 10 mm. No bowel obstruction or bowel wall thickening. Unremarkable appearance of the colon. Postoperative changes of the bowel abdominal right lower quadrant. Anasarca. New 20% superior endplate compression deformities of the L3, L4 and L5 vertebral bodies. Multiple remote compression deformities are again noted. Lucent lesion of the proximal left femur with intertrochanteric nail with medullary brian. This fixates a subacute appearing intratrochanteric fracture. Lumbar levoscoliosis. Lucent lesions of the bilateral acetabula, right greater than left redemonstrated. IMPRESSION: 1. Limited exam as above. 2. Trace left with small to moderate right pleural effusions and anasarca. 3. Acute versus subacute 20% superior endplate compression deformities at L3, L4 and L5 are new from 11/09/2019. Please refer to separately dictated CT lumbar spine study of same day. 4. Soft tissue nodule of the presacral distribution involving the posterior wall of the rectum has slightly increased in size. Additionally, there is mildly increased size of the multiple perirectal nodules and iliac chain lymph nodes compatible with progressive disease. 5. Additional findings as above. ACT 112: Negative or not required by law. The above report was generated using voice recognition software. It may contain grammatical, syntax or spelling errors. Electronically signed by: Jayjay Crowder M.D. 01/20/2020 9:53 PM [facility], [place] [phone] XRay Report Patient: DERRELL WOODS Date: 01/20/20 MR#: [id number]: 450 ROSI Acct ID:[id number]: HEARTSUZE Date: 1965City Zip: [place] [address] Age: 54Location: ED Sex: F Room/Bed: Att Phy:Diagnosis: back pain Krysten Phy: Heartsuze, NittanyService Date: 01/20/20 Fam Phy:Interpreting Phy: Crispin Crowder Admit Phy: Ordering Phy: Ruth Mackenzie, DO cc: ~ XR chest 1V portable HISTORY: 54 years-old Female SEPSIS acute sepsis COMPARISON: CT abdomen and pelvis of same day, chest radiograph 11/06/2019, chest CT 11/05/2019. TECHNIQUE: Portable AP view of the chest FINDINGS: Cardiac silhouette is enlarged, unchanged. Pulmonary vascular congestion. Left subclavian Zdwblb-h-Init catheter is in stable positioning. Trace left and small right pleural effusions with bibasilar atelectasis/scarring. No pneumothorax. The previously described right infrahilar nodular opacity is redemonstrated. Degenerative changes of the shoulders and spine. IMPRESSION: 1. Cardiomegaly with pulmonary vascular congestion. 2. Trace left and small right pleural effusions with bibasilar opacities suggestive of atelectasis. 3. Pulmonary metastatic disease is better appreciated on comparison chest CT. ACT 112: Negative or not required by law. The above report was generated using voice recognition software. It may contain grammatical, syntax or spelling errors. Electronically signed by: Jayjay Crowder M.D. 01/20/2020 9:32 PM ECG Data Attestation: I personally reviewed and interpreted this ECG as follows: Indication: + abdominal pain Rate (beats per minute): 116 Rhythm: + atrial flutter ECG Intervals/blocks: + Normal QRS and + Normal QT ECG [place]: + Normal ECG ST segments: no ST elevation and no T-wave inversions ECG Findings: + PVCs Blood Pressure Blood Pressure Findings: Elevated blood pressure Blood Pressure Disposition: further management by hospitalist TAMIE Narrative An order was placed for continuous cardiac monitoring. The monitor shows a rate of 106 with atrial flutter rhythm. Ill-appearing female who presents with a confusing story. While she reports worsening back pain, the rehab facility she is currently from reports they sent her in due to abdominal pain and fever. Patient is recently postop from a hip repair. Patient was found to be tachycardic and in a flutter. Patient does have a history of atrial fibrillation and atrial flutter. Patient with extensive history of malignancy which includes metastatic colon cancer. Patient not currently undergoing chemotherapy. Patient sent for CT abdomen pelvis which not reveal any additional acute pathology. CT of the lumbar spine did reveal additional acute mild compression fractures in addition to other chronic lumbar spine changes. Patient was found to have a urinary tract infection although the CT did not reveal any evidence of obstructive uropathy or fulminant pyelonephritis. Patient's renal function is intact. No elevation of her lactic acid, however her pro calcitonin was elevated. Given the fever prior to arrival, tachycardia, source of infection as well as her fragile overall health, I am concerned about the possibility of evolving pyelonephritis or sepsis. I do not suspect occult spinal infection including epidural abscess or hematoma, acute discitis, or osteomyelitis. Patient was hemodynamically stable throughout. Patient covered with antibiotics for the urinary tract infection. Case discussed with hospitalist for additional management. Of note, patient's INR is subtherapeutic at this time. Patient is anticoagulated due to her dysrhythmia. Impression & Plan Abdominal pain, Urinary tract infection, Tachycardia, Back pain, Metastatic cancer Discharge Plan Visit Data *Final* Discharge Date/Time: 01/21/20 01:05 Chief Complaint: Back Injury/Pain Stated Complaint: back pain ED Provider: Ruth Mackenzie Discharge Problem: Abdominal pain, Urinary tract infection, Tachycardia, Back pain, Metastatic cancer Patient Disposition: Admitted As Inpatient Discharge Instructions Interventions: ED Discharge Assessment Last Done: 01/21/20 01:05 Discharge Problem: Abdominal pain Qualifiers: Abdominal location: right lower quadrant Qualified Code(s): R10.31 - Right lower quadrant pain Urinary tract infection Qualifiers: Urinary tract infection type: acute pyelonephritis Qualified Code(s): N10 - Acute pyelonephritis Back pain Qualifiers: Back pain location: low back pain Chronicity: chronic Back pain laterality: bi lateral Sciatica presence: without sciatica Qualified Code(s): M54.5 - Low back pain
[2020-01-20 20:58] LABS: Eosinophils # (auto) 0.06 K/uL (0-0.5); Eosinophils % (auto) 0.8 %; Hematocrit (blood only) 30.5 % (37-47); Immature Granulocytes # (auto) 0.02 K/uL (0.00-0.02); Immature Granulocytes % (auto) 0.3 %; Lymphocytes % (auto) 18.3 %; Mean Corpuscular Hemoglobin 32.3 pg (25-34); Mean Corpuscular Hgb Conc 32.8 g/dL (32-36); Mean Corpuscular Volume 98.4 fL (80-100); Mean Platelet Volume 9.2 fL (7.4-10.4); Monocytes # (auto) 0.84 K/uL (0.11-0.59); Neutrophils # (auto) 5.34 K/uL (1.4-6.5); Neutrophils % (auto) 69.6 %; Platelet Count 207 K/uL (130-400); RDW Standard Deviation 81.9 fL (36.4-46.3); White Blood Count 7.66 K/uL (4.8-10.8)
[2020-01-20 20:59] LABS: Appearance Urine Clear (Clear); Bacteria Urine Automated 4+ (Negative); Bilirubin Urine Negative (Negative); Blood Urine Negative (Negative); Color Urine Dark Yellow; Glucose Urine UA Negative (Negative); Ketones Urine 1+ (Negative); Leukocyte Esterase Urine 1+ (Negative); Nitrite Urine Positive (Negative); Protein Urine Negative (Negative); RBC Urine Automated 0-4 /hpf (0-4); Specific Gravity Urine 1.024 (1.000-1.030); Urobilinogen Urine Negative (Negative); WBC Urine Automated >30 /hpf (0-5); pH Urine 6.5 (4.5-7.5)
[2020-01-20 21:03] LABS: INR 1.4 (0.9-1.1); Partial Thromboplastin Time 28.8 Seconds (21.0-31.0); Prothrombin Time 14.5 Seconds (9.0-12.0)
[2020-01-20 21:14] LABS: Albumin Level 2.8 gm/dl (3.4-5.0); BUN Creatinine Ratio 33.2 (10-20); Calcium 8.7 mg/dl (8.5-10.1); Creatinine Clr Calc Pharmacy 84.1 ml/min; Est GFR (African American) 113.9; Est GFR (Non-African American) 98.3; Magnesium 1.8 mg/dl (1.8-2.4); Potassium 3.9 mmol/L (3.5-5.1)
[2020-01-20 21:21] LABS: Bilirubin,Total 3.2 mg/dl (0.2-1); Globulin 2.9 gm/dl (2.5-4.0); Total Protein 5.7 gm/dl (6.4-8.2); Troponin I 0.145 ng/ml (0-0.045)
--- NOTE | 2020-01-20 21:31 | CT Scan Report ---
CT lumbar spine wo con HISTORY: 54 years-old Female low back pain, hx colon ca acute low back pain with history of colon ca ncer COMPARISON: CT abdomen and pelvis of same day and also 11/09/2019 TECHNIQUE: Multiple axial CT images of the lumbar spine were obtained without the use of IV contrast. A dose lowering technique was used consistent with the principals of ALARA. FINDINGS: Demineralized appearance of the bones. Transitional lumbosacral anatomy with sacralization of L5. Hyp oplastic T12 ribs. Moderate multilevel facet arthrosis. There is mild multilevel spondylitic spurring with posterior annular disc bulging. Remote L1 compression deformity. Mild unchanged superior endpla te compression at and T12 and L2. There is approximately 20% superior endplate compression at L3, L4 and L5 is new from the 11/09/2019 study. No retropulsion. There is suggestion of remote sacral insuffic iency fractures, unchanged. Evaluation of the central canal or neuroforamina is better assessed by MR I. Bilateral pleural effusions. Please refer to CT abdomen and pelvis study of same day for further deta ils. IMPRESSION: 1. Acute versus subacute approximately 20% superior endplate compression deformities at L3, L4 and L5 is new from 2020. No retropulsion. 2. Remote T12, L1 and L2 compression deformities. 3. Demineralized appearance of the bones with degenerative changes as above. ACT 112: Negative or not required by law. The above report was generated using voice recognition software. It may contain grammatical, syntax o r spelling errors. Electronically signed by: Jayjay Crowder M.D. 01/20/2020 9:30 PM
--- NOTE | 2020-01-20 21:33 | XRay Report ---
XR chest 1V portable HISTORY: 54 years-old Female SEPSIS acute sepsis COMPARISON: CT abdomen and pelvis of same day, chest radiograph 11/06/2019, chest CT 11/05/2019. TECHNIQUE: Portable AP view of the chest FINDINGS: Cardiac silhouette is enlarged, unchanged. Pulmonary vascular congestion. Left subclavian Infuse-a-Po rt catheter is in stable positioning. Trace left and small right pleural effusions with bibasilar ate lectasis/scarring. No pneumothorax. The previously described right infrahilar nodular opacity is rede monstrated. Degenerative changes of the shoulders and spine. IMPRESSION: 1. Cardiomegaly with pulmonary vascular congestion. 2. Trace left and small right pleural effusions with bibasilar opacities suggestive of atelectasis. 3. Pulmonary metastatic disease is better appreciated on comparison chest CT. ACT 112: Negative or not required by law. The above report was generated using voice recognition software. It may contain grammatical, syntax o r spelling errors. Electronically signed by: Jayjay Crowder M.D. 01/20/2020 9:32 PM
[2020-01-20 21:35] LABS: Influenza A virus by PCR Neg for Influ A (Neg); Influenza B virus by PCR Neg for Influ B (Neg)
--- NOTE | 2020-01-20 21:55 | CT Scan Report ---
ABDOMEN AND PELVIS CT WITHOUT CONTRAST HISTORY: Acute lower abdominal pain in a patient with history of metastatic colon cancer lower abd p ain, hx colon ca TECHNIQUE: Multiaxial CT images of the abdomen and pelvis were performed without contrast. A dose lo wering technique was utilized adhering to the principles of ALARA. COMPARISON STUDY: CT abdomen pelvis 11/09/2019, 11/05/2019. FINDINGS: Respiratory motion artifact limits evaluation of the lung bases. Postoperative changes of the basal l eft lower lobe. Trace left and small to moderate right pleural effusions with bibasilar densities sug gestive of atelectasis. No pneumatosis or pneumoperitoneum. Motion artifact limits the study. Cardiom egaly. Limited evaluation of the solid abdominal organs without the use of IV contrast. The previously noted hepatic lesions are better seen on the November 05, 2019 exam. No definite new hepatic lesions are id entified. Cholelithiasis without CT evidence of acute cholecystitis. Moderate atrophy of the pancreas . Upper abdominal collateral vessels redemonstrated. No discrete adrenal mass identified. Unremarkabl e appearance of the kidneys. Mild nonspecific urinary bladder wall thickening. Hysterectomy. Postoper ative changes within the presacral distribution with 2.5 x 3.6 cm soft tissue nodule involving the po sterior wall of the rectum previously measuring 2.1 x 3.3 cm. Interval increased size of multiple per irectal nodules measuring up to 7 mm on image 272 series 3 on the left. This specific nodule measured 5 mm on comparison. Enlarged iliac chain lymph nodes are seen measuring up to 10 mm. No bowel obstru ction or bowel wall thickening. Unremarkable appearance of the colon. Postoperative changes of the sundeep wel abdominal right lower quadrant. Anasarca. New 20% superior endplate compression deformities of the L3, L4 and L5 vertebral bodies. Multiple rem ote compression deformities are again noted. Lucent lesion of the proximal left femur with intertroch anteric nail with medullary brian. This fixates a subacute appearing intratrochanteric fracture. Lumbar levoscoliosis. Lucent lesions of the bilateral acetabula, right greater than left redemonstrated. IMPRESSION: 1. Limited exam as above. 2. Trace left with small to moderate right pleural effusions and anasarca. 3. Acute versus subacute 20% superior endplate compression deformities at L3, L4 and L5 are new from 11/09/2019. Please refer to separately dictated CT lumbar spine study of same day. 4. Soft tissue nodule of the presacral distribution involving the posterior wall of the rectum has sl ightly increased in size. Additionally, there is mildly increased size of the multiple perirectal nod ules and iliac chain lymph nodes compatible with progressive disease. 5. Additional findings as above. ACT 112: Negative or not required by law. The above report was generated using voice recognition software. It may contain grammatical, syntax o r spelling errors. Electronically signed by: Jayjay Crowder M.D. 01/20/2020 9:53 PM
[2020-01-20] MEDS ORDERED: PIPERACILLIN/TAZOBACTAM 4.5 GM/120 ML BAG IV ONE (22:26)
[2020-01-20] MEDS ORDERED: PIPERACILL/TAZOBAC CONSULT ACTIVE PRN (22:26)
[2020-01-20] MEDS ORDERED: TRAMADOL HCL 50 MG TABLET PO STA (22:57)
[2020-01-20 23:05] LABS: Anisocytosis Present; Poikilocytosis Present; Polychromasia 1+
[2020-01-20] MEDS ORDERED: SODIUM CHLORIDE 0.9% 1000ML 1,000 ML IV SCH (23:45)
--- NOTE | 2020-01-21 00:56 | History & Physical Report ---
Date of Service January 21, 2020 Assessment & Plan (1) Altered mental state: Patient slightly confused during my encounter - oriented to self and hospital, slow to answer questions. Otherwise, nonfocal neuro exam. ?metabolic encephalopathy from underlying medical comorbidities, ?infection, ?medication effects -Observation to medical floor with telemetry -Frequent orientation, delirium prevention strategies -Check PO4, Ammonia, TSH, -Follow cultures Present on Admission?: Yes (2) Urinary tract infection: +UA although dirty specimen with 5-[address] Abd/Pelvis comments on normal appearing kidneys and mild, nonspecific urinary bladder wall thickening. Prior urine cultures have grown gardnerella-like bacilli as well as ESBL E-coli and Klebsiella (Sn to Zosyn) -Follow cultures, blood and urine sent from ER -Zosyn 3.375gm IV q 8 Present on Admission?: Yes (3) Anasarca: Most likely multifactorial, patients underlying chronic disease state, malnutrition, limited mobility. Alb=2.8 -Check TSH/T4 -Repeat LFTs in AM -Consider nutrition consultation Present on Admission?: Yes (4) Compression fracture: Found to have acute vs subacute 20% superior endplate compression deformity at L3, L4 and L5. REmote T12, L1 and L2 compression deformities. Overall with demineralized bones and mulitple degenerateive changes. No metastatic lesions mentioned -Pain control -PT/OT Present on Admission?: Yes (5) Colorectal cancer, stage IV: Patient with metastatic colorectal cancer currently on salvage Xeloda, follows with Dr. Quintana of Oncology. Overall prognosis is poor. Imaging today unfortunately suggests progression of disease -Continue Xeloda -Oncology followup outpatient as recommended Present on Admission?: Yes (6) Abnormal LFTs: Patient with elevated Tbili=3.2, AP = 125. CT Abdomen comments on previously noted hepatic lesions with no new definite lesions identified. -Repeat LFTs in AM, if Tbili continues to increase may need additional imaging. Present on Admission?: Yes (7) Diabetes mellitus, type II: Chronic. Poorly controlled -Continue Lantus, ISS -Goal BS 100 - 140 Present on Admission?: Yes (8) Hypothyroidism: Chronic. 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 -Check TSH/T4 -Continue Synthroid 1200mcg po daily Present on Admission?: Yes (9) GERD (gastroesophageal reflux disease): Chronic -Continue Sucralfate and Omeprazole -Hemoccult stool x 1 Present on Admission?: Yes (10) Asthma: Chronic. No wheeze. Adequate oxygenation on room air -Continue Breo and Albuterol Present on Admission?: Yes (11) Atrial fibrillation: Patient presently in atrial flutter. Not on any rate controlling agents at the moment. Was recently taken off digoxin and Metoprolol due to intermittent bradycardia and hypotension. Presently tachycardic -Hold Eliquis given reports of black/tarry stools -Check FOBT -Monitor HR, may give IV Metoprolol as needed Present on Admission?: Yes (12) HTN (hypertension): Chronic. WN=425/79 currently -Continue to monitor -Continue Spironolactone F/E/N -given IVF in ER, will hold additional fluids for now, Albumin if she needs additional volume, monitor electrolytes, Mg 1gm IV, continue PO K, CC diet as tolerated Ppx - SCDs Code - Full DIspo -Med/tele, contact precautions for recent history of ESBL UTI Present on Admission?: Yes Admission and Anticipated Discharge Date Admission Date: 01/20/20 Anticipated date of discharge: 01/23/20 History of Present Illness Chief Complaint: "I've been sick" [facility] is a 54yo C female with multiple medical comorbidities most notably metastatic colon cancer, lung cancer, DM/HTN/HLP/AF on Eliquis anticoagulation. She was recently admitted to [facility] with an intertrochanteric fracture of the left femur after a mechanical fall at home. She had surgical repair performed by Dr. Rehman on 11/06/19 which was well tolerated. Patient had acute blood loss anemia and was transfused with 1u PRBCs and she was treated for a UTI. Patient was discharged to [facility] for rehabilitation needs. Patient is a poor historian. Majority of history obtained through discussion with ER attending and review of outside records. Patient's chief complaint is "I've been sick", however, she has some difficulty expanding on this complaint. She denies fevers/chills/CP/SOB/palpitations/abdominal pain/nausea/vomiting/diarrhea or constipation. She denies dysuria. She reports that she is not eating or drinking well at [facility] and she feels weak. Also with constant back pain. She denies ALBERT/fall. She has a slight cough otherwise no complaints. Per review of records from [facility], patient had an elevated temperature today of 100 for which she was given Tylenol. They also noted some abdominal wall edema on the right side. They report frequent soft BMs, dark/black in color and heme +. Upon arrival to the ER patient found to be afebrile, AF with HR ranging from 90 - 112, stable BP, RR=22, 98% on room air. Nursing noted frequent passage of dark BM ER Course: Zosyn 4.5gm, NS x 2LS, Tramadol 50mg po Allergies Allergy/AdvReac Type Severity Reaction Status Date / Time daptomycin Allergy Severe SHORTNESS Verified 01/20/20 22:43 OF BREATH Iodinated Contrast Media Allergy Severe Anaphylaxis Verified 01/20/20 22:43 bee venom protein (honey bee) Allergy Intermediate HIVES Verified 01/20/20 22:43 clindamycin Allergy Intermediate HIVES Verified 01/20/20 22:43 Sulfa (Sulfonamide Allergy Intermediate BACTRIM-HIV Verified 01/20/20 22:43 Antibiotics) ES trimethoprim Allergy Intermediate HIVES Verified 01/20/20 22:43 vancomycin Allergy Intermediate RASH Verified 01/20/20 22:43 dulaglutide AdvReac Severe BRAND-TRULICITY, Verified 01/20/20 22:43 SEVERE GI UPSET, CONSTIPATION lactose AdvReac INTOLERANCE Verified 01/20/20 23:10 Home Medications Home Medications Medication Instructions Recorded Confirmed Type Breo Ellipta 1 inh INHALATION DAILY MDD 1 dose 06/11/18 01/20/20 History in 24 hours magnesium oxide 400 mg PO QAM 06/11/18 01/20/20 History spironolactone 12.5 mg PO DAILY 01/15/19 01/20/20 History capecitabine 500 mg tablet 1,500 mg PO BID tab 05/28/19 01/20/20 History prochlorperazine maleate 10 mg 10 mg PO .Q8HR PRN 05/28/19 01/20/20 History tablet Oxygen Home #1 ea 07/01/19 10/22/19 History ferrous sulfate 325 mg (65 mg 325 mg PO QAM tab 07/02/19 01/20/20 History iron) tablet sucralfate 1 gram tablet 1 gm PO ONCE PRN tab 07/02/19 01/20/20 History lactase [Lactaid] 9,000 unit PO AC PRN 08/26/19 01/20/20 History simethicone 125 mg PO DAILY PRN 08/26/19 01/20/20 History blood-glucose meter #1 ea 09/18/19 10/22/19 Rx lancets #400 ea 09/18/19 10/22/19 Rx blood sugar diagnostic #400 ea 09/26/19 10/22/19 Rx levothyroxine 1,200 mcg PO QAM 10/07/19 01/20/20 History omeprazole 40 mg PO DAILY 10/07/19 01/20/20 History acetaminophen [Tylenol] 650 mg PO Q6 PRN 01/20/20 01/20/20 History albuterol sulfate [Ventolin HFA] 2 puff INHALATION Q6 PRN 01/20/20 01/20/20 History apixaban [Eliquis] 2.5 mg PO BID 01/20/20 01/20/20 History insulin aspart U-100 [Novolog 10 unit SUBCUT AC 01/20/20 01/20/20 History U-100 Insulin aspart] insulin glargine [Lantus U-100 8 unit SUBCUT HS 01/20/20 01/20/20 History Insulin] melatonin 2 mg PO HS 01/20/20 01/20/20 History potassium chloride 20 meq PO QAM 01/20/20 01/20/20 History Past Med/Surg History Medical History Anasarca (Acute) Anemia (Acute) Arthritis (Acute) Asthma (Acute) Atrial fibrillation C. difficile colitis Chronic HFrEF (heart failure with reduced ejection fraction) Colon carcinoma metastatic to multiple sites (Chronic) Depression (Acute) Diabetes mellitus, type II (Acute) Dyslipidemia (Chronic) Esophagitis (Resolved) GERD (gastroesophageal reflux disease) (Chronic) H/O: lung cancer Left s/p L VATS Hepatitis (Chronic) HTN (hypertension) (Chronic) Hypothyroidism (Inactive) senior care (current) use of anticoagulants (Acute) Lung cancer (Chronic) Metastatic colon cancer in female lung mets Mitral regurgitation (Chronic) "echo 10/14/15: mild-mod mitral regurg " Moderate protein malnutrition (Inactive) Morbid obesity MRSA colonization (Acute) Multiple pulmonary nodules determined by computed tomography of lung (Chronic) Obesity (BMI 30.0-34.9) (Inactive) ANA (obstructive sleep apnea) (Chronic) Periprosthetic fracture around internal prosthetic knee joint (Acute) 01/16/2019. GETA. MAC 3, grade 2 view. 7.0ETT. Rectal pain (Acute) Surgical History H/O carpal tunnel repair H/O total hysterectomy History of cardiac cath History of closure of ileostomy History of colostomy reversal History of ear surgery Eustachian tube History of laparotomy History of lung surgery History of surgical procedure Venous access port placement S/P colectomy S/P debridement Abdomen S/P T&A (status post tonsillectomy and adenoidectomy) S/P total knee arthroplasty Bilateral Family History Sister Hypothyroidism Myocardial infarction Mother Hypothyroidism Cardiac disorder Diabetes Myocardial infarction Father Myocardial infarction Cardiac disorder Diabetes Daughter Gallbladder disease Other Coronary heart disease Denies family history of Ovarian cancer Prostate cancer Breast cancer Colorectal cancer Social History Preferred Language: Stateless Communication Ability: Effective 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: No Beliefs That Will Affect Care: None marital status: Current Living Situation: Spouse current occupational status: unemployed and disabled Feels Safe at Home: Yes Smoking Status: Never smoker Second Hand Exposure: No ; Hx Alcohol Use: No Hx Substance Use: No caffeine: Yes Dental Care, Regularly: No Physical Activity Frequency: Does not Exercise Seatbelt Use: never Sunscreen Use: Yes Review of Systems Review of Systems: All systems reviewed & are unremarkable except as noted in HPI & below Physical Exam Physical Exam: General: patient resting comfortably, chronically ill in appearance but NAD, AA&O to self and hospital. Slow to answer questions, date is "1964" Skin: warm, dry, intact, no rashes or lesions HEENT: NC/AT, PERRL, EOMI, mild scleral icterus, conjunctiva without injection, external ear normal to inspection and nontender, nares patent, slightly dry mucus membranes, dentition intact, no oropharyngeal lesions, neck supple, trachea midline, no LAD, no thyromegaly, no JVD Heart: +S1/S2, irregularly irregular, tachycardic at 100bpm, no m/r/g Lungs: equal air entry bilaterally, no rales/rhonchi/wheezes Abd: +BS, soft, NT/ND, no masses/organomegaly/ascites, + pitting abdominal wall edema noted on right abdomen Ext: warm, 2+ pulses in UE/LE bilaterally, no clubbing/cyanosis or edema, LLE in immobilizer, NV intact Neuro: nonfocal, patient AA&O x 2, speech intact, slow, no facial droop, moving all extremities on command with equal strength 5/5, limited mobility of LLE Results & Data Results & Data ([facility]) Vital Signs (Past 12 Hours) Vital Signs Temp Pulse Resp BP Pulse Ox 01/20/20 23:00 100 H 22 108/79 98 01/20/20 22:45 94 H 25 H 97 01/20/20 22:31 111 H 22 122/77 98 01/20/20 22:30 119 H 22 97 01/20/20 22:15 105 H 20 99 01/20/20 22:00 94 H 22 102/69 98 01/20/20 21:45 108 H 17 99 01/20/20 21:30 108 H 24 139/83 98 01/20/20 21:15 103 H 20 98 01/20/20 21:00 90 23 123/77 98 01/20/20 20:45 105 H 20 99 01/20/20 20:30 109 H 21 104/75 98 01/20/20 20:25 107 H 22 99 01/20/20 20:09 37 C 106 H 20 127/85 99 01/20/20 20:03 112 H 23 124/85 99 Laboratory Results Lab Results 01/20/20 01/20/20 01/20/20 Range/Units 20:15 20:30 20:30 WBC 7.66 (4.8-10.8) K/uL RBC 3.10 L (4.2-5.4) M/uL Hgb 10.0 L (12.0-16.0) g/dL Hct 30.5 L (37-47) % MCV 98.4 (80-100) fL MCH 32.3 (25-34) pg MCHC 32.8 (32-36) g/dL RDW Std Deviation 81.9 H (36.4-46.3) fL RDW Coeff of Stanley 23.0 H (11.5-14.5) % Plt Count 207 (130-400) K/uL MPV 9.2 (7.4-10.4) fL Immature Gran % (Auto) 0.3 % Neut % (Auto) 69.6 % Lymph % (Auto) 18.3 % [place] % (Auto) 11.0 % Eos % (Auto) 0.8 % Baso % (Auto) 0.0 % Immature Gran # (Auto) 0.02 (0.00-0.02) K/uL Neut # (Auto) 5.34 (1.4-6.5) K/uL Lymph # (Auto) 1.40 (1.2-3.4) K/uL [place] # (Auto) 0.84 H (0.11-0.59) K/uL Eos # (Auto) 0.06 (0-0.5) K/uL Baso # (Auto) 0.00 (0-0.2) K/uL Polychromasia 1+ Poikilocytosis Present Anisocytosis Present PT (9.0-12.0) Seconds INR (0.9-1.1) APTT (21.0-31.0) Seconds PTT Ratio Sodium (136-145) mmol/L Potassium (3.5-5.1) mmol/L Chloride (98-107) mmol/L Carbon Dioxide (21-32) mmol/L Anion Gap (3-11) BUN (7-18) mg/dl Creatinine (0.6-1.2) mg/dl Est Cr Clr Drug Dosing ml/min Est GFR ( Amer) Est GFR (Non-Af Amer) BUN/Creatinine Ratio (10-20) Glucose (70-99) mg/dl Lactate (0.4-2.0) mmol/L Calcium (8.5-10.1) mg/dl Magnesium (1.8-2.4) mg/dl Total Bilirubin (0.2-1) mg/dl AST (15-37) U/L ALT (12-78) U/L Alkaline Phosphatase (45-117) U/L Troponin I (0-0.045) ng/ml Total Protein (6.4-8.2) gm/dl Albumin (3.4-5.0) gm/dl Globulin (2.5-4.0) gm/dl Albumin/Globulin Ratio (0.9-2) Procalcitonin 1.28 H (0-0.5) ng/ml Urine Color Dark Yellow Urine Appearance Clear (Clear) Urine pH 6.5 (4.5-7.5) Ur Specific Hustler 1.024 (1.000-1.030) Urine Protein Negative (Negative) Urine Glucose (UA) Negative (Negative) Urine Ketones 1+ H (Negative) Urine Blood Negative (Negative) Urine Nitrite Positive A (Negative) Urine Bilirubin Negative (Negative) Urine Urobilinogen Negative (Negative) Ur Leukocyte Esterase 1+ H (Negative) Urine WBC (Auto) >30 H (0-5) /hpf Urine RBC (Auto) 0-4 (0-4) /hpf U Hyaline Cast (Auto) 10-30 H (0-5) /lpf U Epithel Cells (Auto) 5-10 H (0-5) /lpf Urine Bacteria (Auto) 4+ H (Negative) Influenza Type A (PCR) (Neg) Influenza Type B (PCR) (Neg) 01/20/20 01/20/20 01/20/20 Range/Units 20:30 20:30 20:35 WBC (4.8-10.8) K/uL RBC (4.2-5.4) M/uL Hgb (12.0-16.0) g/dL Hct (37-47) % MCV (80-100) fL MCH (25-34) pg MCHC (32-36) g/dL RDW Std Deviation (36.4-46.3) fL RDW Coeff of Stanley (11.5-14.5) % Plt Count (130-400) K/uL MPV (7.4-10.4) fL Immature Gran % (Auto) % Neut % (Auto) % Lymph % (Auto) % [place] % (Auto) % Eos % (Auto) % Baso % (Auto) % Immature Gran # (Auto) (0.00-0.02) K/uL Neut # (Auto) (1.4-6.5) K/uL Lymph # (Auto) (1.2-3.4) K/uL [place] # (Auto) (0.11-0.59) K/uL Eos # (Auto) (0-0.5) K/uL Baso # (Auto) (0-0.2) K/uL Polychromasia Poikilocytosis Anisocytosis PT 14.5 H (9.0-12.0) Seconds INR 1.4 H (0.9-1.1) APTT 28.8 (21.0-31.0) Seconds PTT Ratio 1.0 Sodium 140 (136-145) mmol/L Potassium 3.9 (3.5-5.1) mmol/L Chloride 110 H (98-107) mmol/L Carbon Dioxide 24 (21-32) mmol/L Anion Gap 6.0 (3-11) BUN 22 H (7-18) mg/dl Creatinine 0.67 (0.6-1.2) mg/dl Est Cr Clr Drug Dosing 84.1 ml/min Est GFR ( Amer) 113.9 Est GFR (Non-Af Amer) 98.3 BUN/Creatinine Ratio 33.2 H (10-20) Glucose 88 (70-99) mg/dl Lactate 1.9 (0.4-2.0) mmol/L Calcium 8.7 (8.5-10.1) mg/dl Magnesium 1.8 (1.8-2.4) mg/dl Total Bilirubin 3.2 H (0.2-1) mg/dl AST 20 (15-37) U/L ALT 14 (12-78) U/L Alkaline Phosphatase 125 H (45-117) U/L Troponin I 0.145 H* (0-0.045) ng/ml Total Protein 5.7 L (6.4-8.2) gm/dl Albumin 2.8 L (3.4-5.0) gm/dl Globulin 2.9 (2.5-4.0) gm/dl Albumin/Globulin Ratio 1.0 (0.9-2) Procalcitonin (0-0.5) ng/ml Urine Color Urine Appearance (Clear) Urine pH (4.5-7.5) Ur Specific Hustler (1.000-1.030) Urine Protein (Negative) Urine Glucose (UA) (Negative) Urine Ketones (Negative) Urine Blood (Negative) Urine Nitrite (Negative) Urine Bilirubin (Negative) Urine Urobilinogen (Negative) Ur Leukocyte Esterase (Negative) Urine WBC (Auto) (0-5) /hpf Urine RBC (Auto) (0-4) /hpf U Hyaline Cast (Auto) (0-5) /lpf U Epithel Cells (Auto) (0-5) /lpf Urine Bacteria (Auto) (Negative) Influenza Type A (PCR) (Neg) Influenza Type B (PCR) (Neg) 01/20/20 Range/Units 20:47 WBC (4.8-10.8) K/uL RBC (4.2-5.4) M/uL Hgb (12.0-16.0) g/dL Hct (37-47) % MCV (80-100) fL MCH (25-34) pg MCHC (32-36) g/dL RDW Std Deviation (36.4-46.3) fL RDW Coeff of Stanley (11.5-14.5) % Plt Count (130-400) K/uL MPV (7.4-10.4) fL Immature Gran % (Auto) % Neut % (Auto) % Lymph % (Auto) % [place] % (Auto) % Eos % (Auto) % Baso % (Auto) % Immature Gran # (Auto) (0.00-0.02) K/uL Neut # (Auto) (1.4-6.5) K/uL Lymph # (Auto) (1.2-3.4) K/uL [place] # (Auto) (0.11-0.59) K/uL Eos # (Auto) (0-0.5) K/uL Baso # (Auto) (0-0.2) K/uL Polychromasia Poikilocytosis Anisocytosis PT (9.0-12.0) Seconds INR (0.9-1.1) APTT (21.0-31.0) Seconds PTT Ratio Sodium (136-145) mmol/L Potassium (3.5-5.1) mmol/L Chloride (98-107) mmol/L Carbon Dioxide (21-32) mmol/L Anion Gap (3-11) BUN (7-18) mg/dl Creatinine (0.6-1.2) mg/dl Est Cr Clr Drug Dosing ml/min Est GFR ( Amer) Est GFR (Non-Af Amer) BUN/Creatinine Ratio (10-20) Glucose (70-99) mg/dl Lactate (0.4-2.0) mmol/L Calcium (8.5-10.1) mg/dl Magnesium (1.8-2.4) mg/dl Total Bilirubin (0.2-1) mg/dl AST (15-37) U/L ALT (12-78) U/L Alkaline Phosphatase (45-117) U/L Troponin I (0-0.045) ng/ml Total Protein (6.4-8.2) gm/dl Albumin (3.4-5.0) gm/dl Globulin (2.5-4.0) gm/dl Albumin/Globulin Ratio (0.9-2) Procalcitonin (0-0.5) ng/ml Urine Color Urine Appearance (Clear) Urine pH (4.5-7.5) Ur Specific H[place]ler (1.000-1.030) Urine Protein (Negative) Urine Glucose (UA) (Negative) Urine Ketones (Negative) Urine Blood (Negative) Urine Nitrite (Negative) Urine Bilirubin (Negative) Urine Urobilinogen (Negative) Ur Leukocyte Esterase (Negative) Urine WBC (Auto) (0-5) /hpf Urine RBC (Auto) (0-4) /hpf U Hyaline Cast (Auto) (0-5) /lpf U Epithel Cells (Auto) (0-5) /lpf Urine Bacteria (Auto) (Negative) Influenza Type A (PCR) Neg for Influ A (Neg) Influenza Type B (PCR) Neg for Influ B (Neg) Diagnostic Findings XR chest 1V portable HISTORY: 54 years-old Female SEPSIS acute sepsis COMPARISON: CT abdomen and pelvis of same day, chest radiograph 11/06/2019, chest CT 11/05/2019. TECHNIQUE: Portable AP view of the chest FINDINGS: Cardiac silhouette is enlarged, unchanged. Pulmonary vascular congestion. Left subclavian [id number] catheter is in stable positioning. Trace left and small right pleural effusions with bibasilar atelectasis/scarring. No pneumothorax. The previously described right infrahilar nodular opacity is redemonstrated. Degenerative changes of the shoulders and spine. IMPRESSION: 1. Cardiomegaly with pulmonary vascular congestion. 2. Trace left and small right pleural effusions with bibasilar opacities suggestive of atelectasis. 3. Pulmonary metastatic disease is better appreciated on comparison chest CT. ACT 112: Negative or not required by law. The above report was generated using voice recognition software. It may contain grammatical, syntax or spelling errors. Electronically signed by: Jayjay Crowder M.D. 01/20/2020 9:32 PM Dictated: 01/20/202129 Transcribed: 01/20/202129 ABDOMEN AND PELVIS CT WITHOUT CONTRAST HISTORY: Acute lower abdominal pain in a patient with history of metastatic colon cancer lower abd pain, hx colon ca TECHNIQUE: Multiaxial CT images of the abdomen and pelvis were performed without contrast. A dose lowering technique was utilized adhering to the principles of ALARA. COMPARISON STUDY: CT abdomen pelvis 11/09/2019, 11/05/2019. FINDINGS: Respiratory motion artifact limits evaluation of the lung bases. Postoperative changes of the basal left lower lobe. Trace left and small to moderate right pleural effusions with bibasilar densities suggestive of atelectasis. No pneumatosis or pneumoperitoneum. Motion artifact limits the study. Cardiomegaly. Limited evaluation of the solid abdominal organs without the use of IV contrast. The previously noted hepatic lesions are better seen on the November 05, 2019 exam. No definite new hepatic lesions are identified. Cholelithiasis without CT evidence of acute cholecystitis. Moderate atrophy of the pancreas. Upper abdominal collateral vessels redemonstrated. No discrete adrenal mass identified. Unremarkable appearance of the kidneys. Mild nonspecific urinary bladder wall thickening. Hysterectomy. Postoperative changes within the presacral distribution with 2.5 x 3.6 cm soft tissue nodule involving the posterior wall of the rectum previously measuring 2.1 x 3.3 cm. Interval increased size of multiple perirectal nodules measuring up to 7 mm on image 272 series 3 on the left. This specific nodule measured 5 mm on comparison. Enlarged iliac chain lymph nodes are seen measuring up to 10 mm. No bowel obstruction or bowel wall thickening. Unremarkable appearance of the colon. Postoperative changes of the bowel abdominal right lower quadrant. Anasarca. New 20% superior endplate compression deformities of the L3, L4 and L5 vertebral bodies. Multiple remote compression deformities are again noted. Lucent lesion of the proximal left femur with intertrochanteric nail with medullary brian. This fixates a subacute appearing intratrochanteric fracture. Lumbar levoscoliosis. Lucent lesions of the bilateral acetabula, right greater than left redemonstrated. IMPRESSION: 1. Limited exam as above. 2. Trace left with small to moderate right pleural effusions and anasarca. 3. Acute versus subacute 20% superior endplate compression deformities at L3, L4 and L5 are new from 11/09/2019. Please refer to separately dictated CT lumbar spine study of same day. 4. Soft tissue nodule of the presacral distribution involving the posterior wall of the rectum has slightly increased in size. Additionally, there is mildly increased size of the multiple perirectal nodules and iliac chain lymph nodes compatible with progressive disease. 5. Additional findings as above. ACT 112: Negative or not required by law. The above report was generated using voice recognition software. It may contain grammatical, syntax or spelling errors. Electronically signed by: Jayjay Crowder M.D. 01/20/2020 9:53 PM Dictated: 01/20/202137 Transcribed: 01/20/202137 CT lumbar spine wo con HISTORY: 54 years-old Female low back pain, hx colon ca acute low back pain with history of colon cancer COMPARISON: CT abdomen and pelvis of same day and also 11/09/2019 TECHNIQUE: Multiple axial CT images of the lumbar spine were obtained without the use of IV contrast. A dose lowering technique was used consistent with the principals of CAROL. FINDINGS: Demineralized appearance of the bones. Transitional lumbosacral anatomy with sacralization of L5. Hypoplastic T12 ribs. Moderate multilevel facet arthrosis. There is mild multilevel spondylitic spurring with posterior annular disc bulg ing. Remote L1 compression deformity. Mild unchanged superior endplate compression at and T12 and L2. There is approximately 20% superior endplate compression at L3, L4 and L5 is new from the 11/09/2019 study. No retropulsion. There is suggestion of remote sacral insufficiency fractures, unchanged. Evaluation of the central canal or neuroforamina is better assessed by MRI. Bilateral pleural effusions. Please refer to CT abdomen and pelvis study of same day for further details. IMPRESSION: 1. Acute versus subacute approximately 20% superior endplate compression deformities at L3, L4 and L5 is new from 2020. No retropulsion. 2. Remote T12, L1 and L2 compression deformities. 3. Demineralized appearance of the bones with degenerative changes as above. ACT 112: Negative or not required by law. The above report was generated using voice recognition software. It may contain grammatical, syntax or spelling errors. Electronically signed by: Jayjay Crowder M.D. 01/20/2020 9:30 PM Dictated: 01/20/202118 Transcribed: 01/20/202118 ECG Additional Comments: Atrial flutter wtih variable block, rate 116bpm, QRS=72, AFx=478 Code Status & VTE Plan Code Status FULL PG Care Time/CCT Total # of Minutes Spent Total Time Spent with Patient: Total time spent is greater than 50% in coordination of care (as documented) at patient's floor/unit and/or counseling patient: Coding Level of Care Code 04875 OBS Care - Level 3 Diagnoses Altered mental state R41.82 Altered mental status type: unspecified Urinary tract infection N39.0 Urinary tract infection type: site unspecified Hematuria presence: without hematuria Anasarca R60.1 Compression fracture Colorectal cancer, stage IV C19 Abnormal LFTs R94.5 Diabetes mellitus, type II E11.65; Z79.4 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: with mcfp use Diabetes mellitus complication status: with hyperglycemia Hypothyroidism E03.9 Hypothyroidism type: acquired GERD (gastroesophageal reflux disease) K21.9 Esophagitis presence: without esophagitis Asthma J45.909 Asthma severity: unspecified severity Asthma persistence: unspecified Asthma complication type: unspecified Atrial fibrillation I48.91 Atrial fibrillation type: unspecified HTN (hypertension) I10 Hypertension type: essential hypertension (1) Diabetes mellitus, type II Diabetes mellitus mcfp insulin use: 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 Diabetes mellitus complication status: with hyperglycemia Qualified Code(s): E11.65 - Type 2 diabetes mellitus with hyperglycemia; Z79.4 - senior care (current) use of insulin (2) Hypothyroidism Hypothyroidism type: acquired Qualified Code(s): E03.9 - Hypothyroidism, unspecified (3) GERD (gastroesophageal reflux disease) Esophagitis presence: without esophagitis Qualified Code(s): K21.9 - Gastro- esophageal reflux disease without esophagitis (4) HTN (hypertension) Hypertension type: essential hypertension Qualified Code(s): I10 - Essential (primary) hypertension (5) Altered mental state Altered mental status type: unspecified Qualified Code(s): R41.82 - Altered mental status, unspecified (6) Urinary tract infection Urinary tract infection type: site unspecified Hematuria presence: without hematuria Qualified Code(s): N39.0 - Urinary tract infection, site not specified (7) Asthma Asthma severity: unspecified severity Asthma persistence: unspecified Asthma complication type: unspecified Qualified Code(s): J45.909 - Unspecified asthma, uncomplicated (8) Atrial fibrillation Atrial fibrillation type: unspecified Qualified Code(s): I48.91 - Unspecified atrial fibrillation
[2020-01-21] MEDS ORDERED: ALBUTEROL HFA 8 GM INHALER INH PRN (01:45)
[2020-01-21] MEDS ORDERED: ACETAMINOPHEN 325 MG TAB PO PRN (01:45)
[2020-01-21] MEDS ORDERED: LACTASE 3000 UNIT TAB PO PRN (01:45)
[2020-01-21] MEDS ORDERED: GLUCOSE 40% GEL 15 GM TUBE PO PRN (01:45)
[2020-01-21] MEDS ORDERED: DEXTROSE 50% 50 ML SYRINGE IV PRN (01:45)
[2020-01-21] MEDS ORDERED: ONDANSETRON INJ 2 MG/ML 2 ML VIAL IV PRN (01:45)
[2020-01-21] MEDS ORDERED: GLUCOSE 10 TABS/TUBE PO PRN (01:45)
[2020-01-21] MEDS ORDERED: PROCHLORPERAZINE MALEATE 10 MG TAB PO PRN (01:45)
[2020-01-21] MEDS ORDERED: SIMETHICONE 80 MG CHEW PO PRN (01:45)
[2020-01-21] MEDS ORDERED: CARBOHYDRATES FOR HYPOGLYCEMIA PO PRN (01:45)
[2020-01-21] MEDS ORDERED: GLUCAGON FOR INJ 1 MG VIAL SQ PRN (01:45)
[2020-01-21] MEDS ORDERED: PIPERACILL/TAZOBAC CONSULT ACTIVE PRN (01:45)
[2020-01-21] MEDS ORDERED: MAGNESIUM SULFATE / D5W 1 GM/100 ML BAG IV ONE (02:15)
[2020-01-21 02:45] LABS: NT Pro B Type Natriuretic Pept 4542 pg/ml (0-900); Phosphorus 3.4 mg/dl (2.5-4.9); Thyroid Stimulating Hormone 0.106 uIu/ml (0.300-4.500)
[2020-01-21 02:59] LABS: T4 Free Thyroxine > 8.00 ng/dl (0.8-1.6)
[2020-01-21] MEDS: PIPERACILLIN/TAZOBACTAM 3.375 GM in DEXTROSE 5% 100 ML IV SCH ×3 (03:49→19:24)
[2020-01-21] MEDS ORDERED: LEVOTHYROXINE SODIUM 200 MCG TABLET PO SCH (04:00)
[2020-01-21] MEDS: MoRPHine SULFATE 2 MG/ML CARP IV PRN ×2 (05:35→22:19)
[2020-01-21 07:46] LABS: Hematocrit (blood only) 28.4 % (37-47); Hemoglobin 9.3 g/dL (12.0-16.0)
[2020-01-21] MEDS: POTASSIUM CHLORIDE 20 MEQ TABCR PO SCH (07:48)
[2020-01-21] MEDS: FERROUS SULFATE 325 MG TAB PO SCH (07:48)
[2020-01-21] MEDS: MAGNESIUM OXIDE 400 MG TAB PO SCH (07:48)
[2020-01-21] MEDS: SPIRONOLACTONE 12.5 MG TAB PO SCH (07:48)
[2020-01-21] MEDS: FLUTICASONE/VILANTEROL 100/25MCG 14 PUFFS/INHALER INH SCH (07:48)
[2020-01-21] MEDS: PANTOprazole 40 MG TAB PO SCH (07:48)
[2020-01-21 08:04] LABS: Albumin Level 2.6 gm/dl (3.4-5.0); BUN Creatinine Ratio 33.1 (10-20); Calcium 8.6 mg/dl (8.5-10.1); Creatinine Clr Calc Pharmacy 87.1 ml/min; Est GFR (African American) 118.1; Est GFR (Non-African American) 101.9; Potassium 3.7 mmol/L (3.5-5.1)
[2020-01-21 08:06] LABS: Bilirubin,Total 3.4 mg/dl (0.2-1); Globulin 2.7 gm/dl (2.5-4.0); Total Protein 5.3 gm/dl (6.4-8.2)
[2020-01-21] MEDS: INSULIN ASPART 100 UNITS/ML 3 ML PEN SC SCH ×4 (09:41→19:25)
--- NOTE | 2020-01-21 12:09 | Electrocardiogram Report ---
Test Reason : Blood Pressure : / mmHG Vent. Rate : 116 BPM Atrial Rate : 277 BPM P-R Int : 000 ms QRS Dur : 072 ms QT Int : 332 ms P-R-T Axes : 000 -10 -28 degrees QTc Int : 461 ms Atrial fibrillation with premature ventricular or aberrantly conducted complexes Low voltage QRS Nonspecific T wave abnormality Abnormal ECG When compared with ECG of 10-NOV-2019 10:02, Vent. rate has increased BY 55 BPM Nonspecific T wave abnormality has replaced inverted T waves in Inferior leads T wave inversion no longer evident in Anterior leads Confirmed by Chapin Barros ([id number]) on 01/21/2020 12:08:56 PM Referred By: Pedro Videsira Confirmed By:Demetrio Barros
--- NOTE | 2020-01-21 12:45 | Communication Note ---
Date of Service: January 21, 2020 GI brief note: 54 yo female known to the GI service with hx metastatic colorectal cancer (liver mets) nonresponsive to treatment here with confusion, elevated LFTs, and fatigue. On CT A/P it appears her colon cancer has progressed since last imaging, no mention of biliary obstruction however. Also noted to be having dark BMs. Labs reviewed, hgb at recent baseline 9.3, LFTs show rising bilirubin as well. Elevated ammonia level is noted. Impression: metastatic colon cancer with liver mets, intrahepatic vs. extrahepatic biliary obstruction Recs: 1. obtain MRCP to differentiate intrahepatic vs. extrahepatic biliary obstruction, I suspect it's intrahepatic from progressive liver mets but will further evaluate 2. continue PPI daily 3. would strongly consider palliative care consultation/eval at this time Brayan Enamorado MD Gastroenterology
[2020-01-21] MEDS ORDERED: SINCALIDE 1.3 MCG in 0.9 % SODIUM CHLORIDE 100 ML IV ONE (13:30)
--- NOTE | 2020-01-21 15:12 | Nuclear Medicine Report ---
NM hepatobiliary EF CLINICAL HISTORY: 54 years-old Female presenting with cholelithiasis, reflux, increasing bilirubin. TECHNIQUE: Dynamic anterior imaging of the gallbladder was first acquired immediately following the i ntravenous administration of 5.55 mCi Tc-99m Choletec. Subsequently, dynamic delayed imaging of the g allbladder was initiated 65 minutes after Choletec administration acquiring images every 5 minutes ov er a span of 40-60 minutes. The gallbladder ejection fraction was calculated from delayed imaging. PHARMACOLOGY: Medication: Sincalide 1.3 mcg administered IV 5 minutes prior to the start of delayed imaging as a 30 minute infusion. Oral meal: None. COMPARISON: CT from 01/20/2020 and prior HIDA scan from 11/19/2018. FINDINGS: Uniform hepatic tracer accumulation is shown. Prompt intrahepatic biliary excretion is seen. The gall bladder and common bile duct are visualized by 11-15 minutes. Expected radiotracer activity within sm all bowel indicates an unobstructed common duct. The gallbladder subsequently demonstrates normal contraction with decreased radiotracer activity. Gallbladder ejection fraction (GBEF) measures 81%. Reference range (with Sincalide use): Unequivocally normal: Greater than 50%. Unequivocally abnormal: Less than 35%. Notably, the lower limit of normal GBEF in the setting of a lactose-free fatty-meal food supplement ( Boost shake) has been reported as > or = 33%. Tereza ALBERT, Emil DA, Drew BUCK, et al. Cholecystokinin cholescintigraphy: methodology and normal tsering ues using a lactose-free fatty-meal food supplement. J Nucl Med. 2003;44:5225-0874. IMPRESSION: 1. Normal gallbladder ejection fraction. No evidence of acute or chronic cholecystitis. ACT 112: Negative or not required by law. Electronically signed by: Riaz Blackwood M.D. 01/21/2020 3:11 PM
[2020-01-21] MEDS: INSULIN GLARGINE SOLOSTAR 100 UNITS/ML 3 ML PEN SQ SCH (19:25)
[2020-01-21] MEDS ORDERED: INSULIN GLARGINE SOLOSTAR 100 UNITS/ML 3 ML PEN SQ SCH (20:00)
[2020-01-21] MEDS ORDERED: MELATONIN 2 MG PO SCH (21:00)
[2020-01-22] MEDS: MoRPHine SULFATE 2 MG/ML CARP IV PRN ×3 (04:04→12:43)
[2020-01-22] MEDS: PIPERACILLIN/TAZOBACTAM 3.375 GM in DEXTROSE 5% 100 ML IV SCH ×3 (04:05→21:17)
[2020-01-22 06:06] LABS: Basophils # (auto) 0.02 K/uL (0-0.2); Basophils % (auto) 0.3 %; Eosinophils # (auto) 0.28 K/uL (0-0.5); Eosinophils % (auto) 4.4 %; Hematocrit (blood only) 28.9 % (37-47); Hemoglobin 9.4 g/dL (12.0-16.0); Immature Granulocytes # (auto) 0.01 K/uL (0.00-0.02); Immature Granulocytes % (auto) 0.2 %; Lymphocytes # (auto) 1.18 K/uL (1.2-3.4); Lymphocytes % (auto) 18.6 %; Mean Corpuscular Hemoglobin 32.2 pg (25-34); Mean Corpuscular Hgb Conc 32.5 g/dL (32-36); Mean Platelet Volume 9.5 fL (7.4-10.4); Monocytes # (auto) 0.74 K/uL (0.11-0.59); Monocytes % (auto) 11.7 %; Neutrophils % (auto) 64.8 %; Platelet Count 178 K/uL (130-400); RDW Coefficient of Variation 22.4 % (11.5-14.5); RDW Standard Deviation 80.5 fL (36.4-46.3); Red Blood Count 2.92 M/uL (4.2-5.4); White Blood Count 6.33 K/uL (4.8-10.8)
[2020-01-22] MEDS: LEVOTHYROXINE SODIUM 200 MCG TABLET PO SCH (06:08)
[2020-01-22 06:27] LABS: Echinocytes 1+; Polychromasia 1+
[2020-01-22 06:40] LABS: Albumin Level 2.6 gm/dl (3.4-5.0); BUN Creatinine Ratio 34.2 (10-20); Bilirubin Direct 0.8 mg/dl (0-0.2); Calcium 8.8 mg/dl (8.5-10.1); Creatinine Clr Calc Pharmacy 82.7 ml/min; Est GFR (African American) 116.2; Est GFR (Non-African American) 100.3; Potassium 3.9 mmol/L (3.5-5.1)
[2020-01-22 06:48] LABS: Bilirubin,Total 2.8 mg/dl (0.2-1); Total Protein 5.4 gm/dl (6.4-8.2)
--- NOTE | 2020-01-22 07:01 | Magnetic Resonance Report ---
Study: MRCP HISTORY: Pain. Nausea. COMPARISON: Hepatobiliary scan. CT 01/20/2020 FINDINGS: Right pleural effusion. Trace left pleural effusion. Moderate body wall anasarca. Possible tiny 2 mm gallstone. The MRCP component of the study demonstrates the biliary ductal system to be unremarkable. There are no significant filling defects. Pancreatic duct is unremarkable. No significant upper abdominal adenopathy. Kidneys are negative for hydronephrosis. IMPRESSION: 1. Right and to a lesser extent left pleural effusion. 2. Body wall anasarca. 3. Possible tiny 2 mm gallstone. 4. Normal MRCP other than that noted. Electronically signed by: Iker Avelar M.D. 01/22/2020 7:00 AM
[2020-01-22] MEDS: FLUTICASONE/VILANTEROL 100/25MCG 14 PUFFS/INHALER INH SCH (08:16)
[2020-01-22] MEDS: SPIRONOLACTONE 12.5 MG TAB PO SCH (08:16)
[2020-01-22] MEDS: POTASSIUM CHLORIDE 20 MEQ TABCR PO SCH (08:17)
[2020-01-22] MEDS: FERROUS SULFATE 325 MG TAB PO SCH (08:17)
[2020-01-22] MEDS: MAGNESIUM OXIDE 400 MG TAB PO SCH (08:17)
[2020-01-22] MEDS: PANTOprazole 40 MG TAB PO SCH (08:17)
[2020-01-22] MEDS: INSULIN ASPART 100 UNITS/ML 3 ML PEN SC SCH ×4 (08:25→21:16)
--- NOTE | 2020-01-22 08:30 | Communication Note ---
Date of Service: January 21, 2020 Had discussion with patient and family. Patient is interested in going home. Had discussion regarding home hospice. is leaning towards this and will likely make decision overnight.
--- NOTE | 2020-01-22 08:34 | Orthopedic Consultation ---
Date of Consultation January 22, 2020 Assessment & Plan (1) Compression fracture: At this point any surgical intervention would be somewhat aggressive as we are limited by her underlying health condition. If she continues to struggle with it may be worth obtaining an MRI of the lumbar spine however I would only subject her to such testing with a medical team believe she would be a candidate for surgical intervention in this case of possible kyphoplasty. I will defer to medicine for this study. Present on Admission?: Yes History of Present Illness Reason for Consultation: Back pain Attending Physician: Yousif French History of Present Illness This is a 54-year-old female with a significant unfortunate medical history with some complaints of chronic back pain. She denies any recent trauma or fall to exacerbate her symptoms. She is status post trochanteric hip fracture on the left in November. This point she denies any numbness or tingling extending down lower extremities. She is comfortable at rest. She struggles with sitting in a chair. Allergies Allergy/AdvReac Type Severity Reaction Status Date / Time daptomycin Allergy Severe SHORTNESS Verified 01/20/20 22:43 OF BREATH Iodinated Contrast Media Allergy Severe Anaphylaxis Verified 01/20/20 22:43 bee venom protein (honey bee) Allergy Intermediate HIVES Verified 01/20/20 22:43 clindamycin Allergy Intermediate HIVES Verified 01/20/20 22:43 Sulfa (Sulfonamide Allergy Intermediate BACTRIM-HIV Verified 01/20/20 22:43 Antibiotics) ES trimethoprim Allergy Intermediate HIVES Verified 01/20/20 22:43 vancomycin Allergy Intermediate RASH Verified 01/20/20 22:43 dulaglutide AdvReac Severe BRAND-TRULICITY, Verified 01/20/20 22:43 SEVERE GI UPSET, CONSTIPATION lactose AdvReac INTOLERANCE Verified 01/20/20 23:10 Home Medications Home Medications Medication Instructions Recorded Confirmed Type Michelle Ellipta 1 inh INHALATION DAILY MDD 1 dose 06/11/18 01/20/20 History in 24 hours magnesium oxide 400 mg PO QAM 06/11/18 01/20/20 History spironolactone 12.5 mg PO DAILY 01/15/19 01/20/20 History capecitabine 500 mg tablet 1,500 mg PO BID tab 05/28/19 01/20/20 History prochlorperazine maleate 10 mg 10 mg PO .Q8HR PRN 05/28/19 01/20/20 History tablet Oxygen Home #1 ea 07/01/19 10/22/19 History ferrous sulfate 325 mg (65 mg 325 mg PO QAM tab 07/02/19 01/20/20 History iron) tablet sucralfate 1 gram tablet 1 gm PO ONCE PRN tab 07/02/19 01/20/20 History lactase [Lactaid] 9,000 unit PO AC PRN 08/26/19 01/20/20 History simethicone 125 mg PO DAILY PRN 08/26/19 01/20/20 History blood-glucose meter #1 ea 09/18/19 10/22/19 Rx lancets #400 ea 09/18/19 10/22/19 Rx blood sugar diagnostic #400 ea 09/26/19 10/22/19 Rx levothyroxine 1,200 mcg PO QAM 10/07/19 01/20/20 History omeprazole 40 mg PO DAILY 10/07/19 01/20/20 History acetaminophen [Tylenol] 650 mg PO Q6 PRN 01/20/20 01/20/20 History albuterol sulfate [Ventolin HFA] 2 puff INHALATION Q6 PRN 01/20/20 01/20/20 History apixaban [Eliquis] 2.5 mg PO BID 01/20/20 01/20/20 History insulin aspart U-100 [Novolog 10 unit SUBCUT AC 01/20/20 01/20/20 History U-100 Insulin aspart] insulin glargine [Lantus U-100 8 unit SUBCUT HS 01/20/20 01/20/20 History Insulin] melatonin 2 mg PO HS 01/20/20 01/20/20 History potassium chloride 20 meq PO QAM 01/20/20 01/20/20 History Patient History Medical History Anasarca (Acute) Anemia (Acute) Arthritis (Acute) Asthma (Acute) Atrial fibrillation C. difficile colitis Chronic HFrEF (heart failure with reduced ejection fraction) Colon carcinoma metastatic to multiple sites (Chronic) Depression (Acute) Diabetes mellitus, type II (Acute) Dyslipidemia (Chronic) Esophagitis (Resolved) GERD (gastroesophageal reflux disease) (Chronic) H/O: lung cancer Left s/p L VATS Hepatitis (Chronic) HTN (hypertension) (Chronic) Hypothyroidism (Inactive) assisted (current) use of anticoagulants (Acute) Lung cancer (Chronic) Metastatic colon cancer in female lung mets Mitral regurgitation (Chronic) "echo 10/14/15: mild-mod mitral regurg " Moderate protein malnutrition (Inactive) Morbid obesity MRSA colonization (Acute) Multiple pulmonary nodules determined by computed tomography of lung (Chronic) Obesity (BMI 30.0-34.9) (Inactive) ANA (obstructive sleep apnea) (Chronic) Periprosthetic fracture around internal prosthetic knee joint (Acute) 01/16/2019. GETA. MAC 3, grade 2 view. 7.0ETT. Rectal pain (Acute) Surgical History H/O carpal tunnel repair H/O total hysterectomy History of cardiac cath History of closure of ileostomy History of colostomy reversal History of ear surgery Eustachian tube History of laparotomy History of lung surgery History of surgical procedure Venous access port placement S/P colectomy S/P debridement Abdomen S/P T&A (status post tonsillectomy and adenoidectomy) S/P total knee arthroplasty Bilateral Family History Sister Hypothyroidism Myocardial infarction Mother Hypothyroidism Cardiac disorder Diabetes Myocardial infarction Father Myocardial infarction Cardiac disorder Diabetes Daughter Gallbladder disease Other Coronary heart disease Denies family history of Ovarian cancer Prostate cancer Breast cancer Colorectal cancer Social History Preferred Language: Lithuanian Communication Ability: Effective Pharmaceutical Engineer Required: No Beliefs That Will Affect Care: None marital status: Current Living Situation: [facility] Current Living Situation Comment: [facility] current occupational status: unemployed and disabled Feels Safe at Home: Yes Safety Concerns: Feels Safe At This Time Smoking Status: Never smoker Second Hand Exposure: No ; Hx Alcohol Use: No Hx Substance Use: No caffeine: Yes Dental Care, Regularly: No Physical Activity Frequency: Does not Exercise Seatbelt Use: never Sunscreen Use: Yes Physical Exam Physical Exam: On exam she appears to be in very modest distress. She is able to raise her right leg off of the bed. Left leg has a brace in place. She is able to plantarflex dorsiflex extraosseous longus is intact bilaterally. Sensory appears to be intact. Results & Data ([facility]) Vital Signs (Past 12 Hours) Vital Signs Temp Pulse Pulse Resp BP Pulse Ox 01/22/20 07:33 90 01/22/20 07:29 36.4 C L 96 H 18 114/78 96 01/22/20 03:33 36.6 C 96 H 20 106/73 98 01/21/20 23:59 113 H 01/21/20 23:43 36.5 C 105 H 18 120/80 100
--- NOTE | 2020-01-22 12:08 | Palliative Care Consultation ---
Date of Consultation January 22, 2020 Assessment & Plan (1) Goals of care, counseling/discussion: -54 year old female patient with PMH metastatic colon cancer-status post colectomy with ostomy and reversal in November 2017, metastases to lung, s/p wedge resection, poorly controlled diabetes-hemoglobin A1c 10.8, chronic A. fib, asthma, hypertension, hypothyroid, ANA, depression, obesity, and others, presented to the hospital with altered mental status and fever as reported by [facility] where patient was staying. Patient was recently admitted to [facility] with an intertrochanteric fracture of the left femur after a mechanical fall at home. She had surgical repair performed by Dr. Rehman on 11/06/19 which was well tolerated. Patient had acute blood loss anemia and was transfused with 1u PRBCs and she was treated for a UTI. Patient was discharged to [facility] for rehab and apparently has been there since. In the ED yesterday, patient was difficult to obtain history from, but she did state she wasn't eating/drinking well and was having constant back pain. Found to have acute vs subacute 20% superior endplate compression deformity at L3, L4 and L5. Remote T12, L1 and L2 compression deformities-- ortho consulted. Patient being treated for UTI-- prior cultures grew ESBL and Klebsiella. Imaging unfortunately shows progression of colon cancer-- patient currently on Xeloda under the care of Dr. Quintana. GI consulted for worsening LFTs-- they recommended getting MRCP to evaluate for intrahepatic vs. extrahepatic biliary obstruction. MRCP shows no obstruction. Palliative care is consulted due to patient's worsening illness and condition. -Patient seen by palliative MD this afternoon. -I spoke with patient's daughter Sana and Jose Luis on phone. Spoke with each of them at length. Both are understanding of the fact that patient's disease has progressed and her life expectancy is limited at this point. They both wish to bring patient home with hospice care. -Daughter is a COMMUNICATION SPECIALIST. She and her father, as well as patient's son, are going to provide care at home. She has a few other friends and family that she is going to contact for extra help. They have requested a referral to [facility]-- machine adjuster leader case trim aware. Family needs a few days to get things in order at home prior to patient being discharged. -Discussed code status with patient's . He prefers DNR/DNI status for patient at this point. -Patient has used 3mg IV morphine in 24 hours. If pain continues would start fentanyl patch 12mcg/hr. Would also convert IV morphine to Roxanol 5mg PO/SL Q3h PRN pain or SOB. -We will continue to follow. (2) Altered mental state: Altered mental status type: unspecified Qualified Code(s): R41.82 - Altered mental status, unspecified (3) Compression fracture: (4) Abnormal LFTs: Supervising Physician Co-Signing Physician Notes Chart reviewed, patient seen and examined. Collaborated with HERMELINDA Lorenzo as well as attending physician Dr. French. Patient arousable, no acute distress. Patient did states she is having lower back pain. Patient would only nod or say yes or no to questions. Discussed with patient her goal of returning home, asked if she be amenable to having hospice care in addition to which she replied yes. Patient also agreed with DNR status-due to patient's not being conversational I am not totally certain she understands which she is agreeing to. Family is agreeable to DNR status and bringing patient home under hospice care. PE: Patient arousable, awake briefly during exam, appears comfortable at rest HEENT: EOMI, hearing within normal limits Respirations: Unlabored, clear breath sounds CV: Regular rate Abdomen: Soft, nontender Extremities: Left lower extremity with brace in place. Neuro: Unable to assess cognitive status as patient would only nod or answer yes or no to questions. Agree with above note, assessment and plan as per HERMELINDA Lorenzo-we will continue to follow and provide support to patient and family in regards to medical decision making. History of Present Illness Attending Physician: Yousif French History of Present Illness This 54 year old female patient with PMH metastatic colon cancer-status post colectomy with ostomy and reversal in November 2017, metastases to lung, s/p wedge resection, poorly controlled diabetes-hemoglobin A1c 10.8, chronic A. fib, asthma, hypertension, hypothyroid, ANA, depression, obesity, and others, presented to the hospital with altered mental status and fever as reported by [facility] where patient was staying. Patient was recently admitted to [facility] with an intertrochanteric fracture of the left femur after a mechanical fall at home. She had surgical repair performed by Dr. Rehman on 11/06/19 which was well tolerated. Patient had acute blood loss anemia and was transfused with 1u PRBCs and she was treated for a UTI. Patient was discharged to [facility] for rehab and apparently has been there since. In the ED yesterday, patient was difficult to obtain history from, but she did state she wasn't eating/drinking well and was having constant back pain. Found to have acute vs subacute 20% superior endplate compression deformity at L3, L4 and L5. Remote T12, L1 and L2 compression deformities-- ortho consulted. Patient being treated for UTI-- prior cultures grew ESBL and Klebsiella. Imaging unfortunately shows progression of colon cancer-- patient currently on Xeloda under the care of Dr. Quintana. GI consulted for worsening LFTs-- they recommended getting MRCP to evaluate for intrahepatic vs. extrahepatic biliary obstruction. Thank you kindly for this consult. Palliative care team will follow as needed. Allergies Allergy/AdvReac Type Severity Reaction Status Date / Time daptomycin Allergy Severe SHORTNESS Verified 01/20/20 22:43 OF BREATH Iodinated Contrast Media Allergy Severe Anaphylaxis Verified 01/20/20 22:43 bee venom protein (honey bee) Allergy Intermediate HIVES Verified 01/20/20 22:43 clindamycin Allergy Intermediate HIVES Verified 01/20/20 22:43 Sulfa (Sulfonamide Allergy Intermediate BACTRIM-HIV Verified 01/20/20 22:43 Antibiotics) ES trimethoprim Allergy Intermediate HIVES Verified 01/20/20 22:43 vancomycin Allergy Intermediate RASH Verified 01/20/20 22:43 dulaglutide AdvReac Severe BRAND-TRULICITY, Verified 01/20/20 22:43 SEVERE GI UPSET, CONSTIPATION lactose AdvReac INTOLERANCE Verified 01/20/20 23:10 Home Medications Home Medications Medication Instructions Recorded Confirmed Type Breo Ellipta 1 inh INHALATION DAILY MDD 1 dose 06/11/18 01/20/20 History in 24 hours magnesium oxide 400 mg PO QAM 06/11/18 01/20/20 History spironolactone 12.5 mg PO DAILY 01/15/19 01/20/20 History capecitabine 500 mg tablet 1,500 mg PO BID tab 05/28/19 01/20/20 History prochlorperazine maleate 10 mg 10 mg PO .Q8HR PRN 05/28/19 01/20/20 History tablet Oxygen Home #1 ea 07/01/19 10/22/19 History ferrous sulfate 325 mg (65 mg 325 mg PO QAM tab 07/02/19 01/20/20 History iron) tablet sucralfate 1 gram tablet 1 gm PO ONCE PRN tab 07/02/19 01/20/20 History lactase [Lactaid] 9,000 unit PO AC PRN 08/26/19 01/20/20 History simethicone 125 mg PO DAILY PRN 08/26/19 01/20/20 History blood-glucose meter #1 ea 09/18/19 10/22/19 Rx lancets #400 ea 09/18/19 10/22/19 Rx blood sugar diagnostic #400 ea 09/26/19 10/22/19 Rx levothyroxine 1,200 mcg PO QAM 10/07/19 01/20/20 History omeprazole 40 mg PO DAILY 10/07/19 01/20/20 History acetaminophen [Tylenol] 650 mg PO Q6 PRN 01/20/20 01/20/20 History albuterol sulfate [Ventolin HFA] 2 puff INHALATION Q6 PRN 01/20/20 01/20/20 History apixaban [Eliquis] 2.5 mg PO BID 01/20/20 01/20/20 History insulin aspart U-100 [Novolog 10 unit SUBCUT AC 01/20/20 01/20/20 History U-100 Insulin aspart] insulin glargine [Lantus U-100 8 unit SUBCUT HS 01/20/20 01/20/20 History Insulin] melatonin 2 mg PO HS 01/20/20 01/20/20 History potassium chloride 20 meq PO QAM 01/20/20 01/20/20 History Patient History Medical History Anasarca (Acute) Anemia (Acute) Arthritis (Acute) Asthma (Acute) Atrial fibrillation C. difficile colitis Chronic HFrEF (heart failure with reduced ejection fraction) Colon carcinoma metastatic to multiple sites (Chronic) Depression (Acute) Diabetes mellitus, type II (Acute) Dyslipidemia (Chronic) Esophagitis (Resolved) GERD (gastroesophageal reflux disease) (Chronic) H/O: lung cancer Left s/p L VATS Hepatitis (Chronic) HTN (hypertension) (Chronic) Hypothyroidism (Inactive) shelter (current) use of anticoagulants (Acute) Lung cancer (Chronic) Metastatic colon cancer in female lung mets Mitral regurgitation (Chronic) "echo 10/14/15: mild-mod mitral regurg " Moderate protein malnutrition (Inactive) Morbid obesity MRSA colonization (Acute) Multiple pulmonary nodules determined by computed tomography of lung (Chronic) Obesity (BMI 30.0-34.9) (Inactive) ANA (obstructive sleep apnea) (Chronic) Periprosthetic fracture around internal prosthetic knee joint (Acute) 01/16/2019. GETA. MAC 3, grade 2 view. 7.0ETT. Rectal pain (Acute) Surgical History H/O carpal tunnel repair H/O total hysterectomy History of cardiac cath History of closure of ileostomy History of colostomy reversal History of ear surgery Eustachian tube History of laparotomy History of lung surgery History of surgical procedure Venous access port placement S/P colectomy S/P debridement Abdomen S/P T&A (status post tonsillectomy and adenoidectomy) S/P total knee arthroplasty Bilateral Family History Sister Hypothyroidism Myocardial infarction Mother Hypothyroidism Cardiac disorder Diabetes Myocardial infarction Father Myocardial infarction Cardiac disorder Diabetes Daughter Gallbladder disease Other Coronary heart disease Denies family history of Ovarian cancer Prostate cancer Breast cancer Colorectal cancer Social History Preferred Language: Tuvaluan Communication Ability: Effective 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 Beliefs That Will Affect Care: None marital status: Current Living Situation: Jail Current Living Situation Comment: [facility] current occupational status: unemployed and disabled Feels Safe at Home: Yes Safety Concerns: Feels Safe At This Time Smoking Status: Never smoker Second Hand Exposure: No ; Hx Alcohol Use: No Hx Substance Use: No caffeine: Yes Dental Care, Regularly: No Physical Activity Frequency: Does not Exercise Seatbelt Use: never Sunscreen Use: Yes Results & Data Vital Signs (Past 12 Hours) Vital Signs Temp Pulse Pulse Resp BP Pulse Ox 01/22/20 11:11 36.5 C 98 H 18 116/77 98 01/22/20 07:33 90 01/22/20 07:29 36.4 C L 96 H 18 114/78 96 01/22/20 03:33 36.6 C 96 H 20 106/73 98 Coding Level of Care Code 12403 Inpt Consult Level 3 Diagnoses Goals of care, counseling/discussion Z71.89 Altered mental state R41.82 Altered mental status type: unspecified Compression fracture Abnormal LFTs R94.5 Time Spent (min) 95 Time Spent Midlevel A total of 75 minutes was spent by this DRUG ABUSE PROGRAM COORDINATOR in reviewing chart, speaking with attending physician, palliative physician, case management, as well as marquita's daughter via phone discussing patient's condition, goals of care and hospice. Attending Spent 20 minutes in addition to the 75 minutes spent by HERMELINDA Lorenzo with greater than 50% of the time spent at bedside assessing patient's current status, wishes and discussing goals of care with family.
[2020-01-22] MEDS ORDERED: fentaNYL 12 MCG/HR TDSY TD SCH (15:30)
[2020-01-22] MEDS: CHECK FENTANYL PATCH PLACEMENT SCH (15:46)
[2020-01-22] MEDS: MoRPHine SULFATE 5 MG/0.25 ML UDP PO PRN (17:17)
[2020-01-22] MEDS: INSULIN GLARGINE SOLOSTAR 100 UNITS/ML 3 ML PEN SQ SCH (21:17)
--- NOTE | 2020-01-22 22:54 | Hospitalist Progress Note ---
Date of Service January 22, 2020 Assessment & Plan (1) Altered mental state: Metabolic encephalopathy Patient was slightly confused on admission. This has improved. Likely secondary to cancer, UTI and pain. Patient is going to be discharge on home hospice given her care home poor prognosis. THIS WILL BE DONE ONCE HOME HOSPICE HAS BEEN SET UP (2) Urinary tract infection: +UA although dirty specimen with 5-[address] Abd/Pelvis comments on normal appearing kidneys and mild, nonspecific urinary bladder wall thickening. Prior urine cultures have grown gardnerella-like bacilli as well as ESBL E-coli and Klebsiella (Sn to Zosyn) -Follow cultures, blood and urine sent from ER -Zosyn 3.375gm IV q 8 (3) Anasarca: Most likely multifactorial, patients underlying chronic disease state, malnutrition, limited mobility. Alb=2.8 (4) Compression fracture: Found to have acute vs subacute 20% superior endplate compression deformity at L3, L4 and L5. REmote T12, L1 and L2 compression deformities. Overall with demineralized bones and mulitple degenerateive changes. No metastatic lesions mentioned (5) Colorectal cancer, stage IV: Patient with metastatic colorectal cancer currently on salvage Xeloda, follows with Dr. Quintana of Oncology. Overall prognosis is poor. Imaging today unfortunately suggests progression of disease -Continue Xeloda -Oncology followup outpatient as recommended (6) Abnormal LFTs: Patient with elevated Tbili=3.2, AP = 125. CT Abdomen comments on previously noted hepatic lesions with no new definite lesions identified. (7) Diabetes mellitus, type II: Chronic. Poorly controlled -Continue Lantus, ISS -Goal BS 100 - 140 (8) Hypothyroidism: Chronic. 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 -FT4 was elevated. -Continue Synthroid 1100mcg po daily (9) GERD (gastroesophageal reflux disease): Chronic -Continue Sucralfate and Omeprazole -Hemoccult stool x 1: positive (10) Asthma: Chronic. No wheeze. Adequate oxygenation on room air -Continue Breo and Albuterol (11) Atrial fibrillation: Patient presently in atrial flutter. Not on any rate controlling agents at the moment. Was recently taken off digoxin and Metoprolol due to i ntermittent bradycardia and hypotension. Presently tachycardic -Hold Eliquis given reports of black/tarry stools and positive FOBT. (12) HTN (hypertension): Chronic. PG=340/79 currently -Continue to monitor -Continue Spironolactone Ppx - SCDs Code - Full Admission and Anticipated Discharge Date Admission Date: January 21, 2020 Subjective Patient reports no new symptoms today Review of Systems Review of Systems: All systems reviewed & are unremarkable except as noted in HPI & below Physical Exam Physical Exam: General: patient resting comfortably, chronically ill in appearance; NAD/ Skin: warm, dry, intact, no rashes or lesions HEENT: NC/AT, PERRL, EOMI, mild scleral icterus, conjunctiva without injection, external ear normal to inspection and nontender, nares patent, slightly dry mucus membranes, dentition intact, no oropharyngeal lesions, neck supple, trachea midline, no LAD, no thyromegaly, no JVD Heart: +S1/S2, irregularly irregular, tachycardic at 100bpm, no m/r/g Lungs: equal air entry bilaterally, no rales/rhonchi/wheezes Abd: +BS, soft, NT/ND, no masses/organomegaly/ascites, + pitting abdominal wall edema noted on right abdomen Ext: warm, 2+ pulses in UE/LE bilaterally, no clubbing/cyanosis or edema, LLE in immobilizer, NV intact Neuro: nonfocal, patient AA&O x 2, speech intact, slow, no facial droop, moving all extremities on command with equal strength 5/5, limited mobility of LLE Results & Data Results & Data ([facility]) Vital Signs (Past 12 Hours) Vital Signs Temp Pulse Pulse Resp BP Pulse Ox 01/22/20 19:00 36.7 C 91 H 20 111/69 92 01/22/20 15:26 36.4 C L 95 H 18 113/74 99 01/22/20 15:00 81 01/22/20 11:11 36.5 C 98 H 18 116/77 98 PG Care Time/CCT Total # of Minutes Spent Total Time Spent with Patient: Total time spent is greater than 50% in coordination of care (as documented) at patient's floor/unit and/or counseling patient: Coding Level of Care Code 71921 Subseq Hosp Care Lvl 3 Diagnoses Altered mental state R41.82 Altered mental status type: unspecified Urinary tract infection N39.0 Hematuria presence: without hematuria Urinary tract infection type: site unspecified Anasarca R60.1 Compression fracture Colorectal cancer, stage IV C19 Abnormal LFTs R94.5 Diabetes mellitus, type II E11.65; Z79.4 Diabetes mellitus complication status: with hyperglycemia Diabetes mellitus care home insulin use: with care home use Hypothyroidism E03.9 Hypothyroidism type: acquired GERD (gastroesophageal reflux disease) K21.9 Esophagitis presence: without esophagitis Asthma J45.909 Asthma complication type: unspecified Asthma persistence: unspecified Asthma severity: unspecified severity Atrial fibrillation I48.91 Atrial fibrillation type: unspecified HTN (hypertension) I10 Hypertension type: essential hypertension Time Spent (min) 35 (1) Urinary tract infection Hematuria presence: without hematuria Urinary tract infection type: site unspecified Qualified Code(s): N39.0 - Urinary tract infection, site not specified (2) Diabetes mellitus, type II Diabetes mellitus complication status: with hyperglycemia Diabetes mellitus care home insulin use: with care home use Qualified Code(s): E11.65 - Type 2 diabetes mellitus with hyperglycemia; Z79.4 - exterminator helper (current) use of insulin (3) Atrial fibrillation Atrial fibrillation type: unspecified Qualified Code(s): I48.91 - Unspecified atrial fibrillation (4) Hypothyroidism Hypothyroidism type: acquired Qualified Code(s): E03.9 - Hypothyroidism, unspecified (5) Altered mental state Altered mental status type: unspecified Qualified Code(s): R41.82 - Altered mental status, unspecified (6) GERD (gastroesophageal reflux disease) Esophagitis presence: without esophagitis Qualified Code(s): K21.9 - Gastro- esophageal reflux disease without esophagitis (7) HTN (hypertension) Hypertension type: essential hypertension Qualified Code(s): I10 - Essential (primary) hypertension (8) Asthma Asthma complication type: unspecified Asthma persistence: unspecified Asthma severity: unspecified severity Qualified Code(s): J45.909 - Unspecified asthma, uncomplicated
[2020-01-23] MEDS: CHECK FENTANYL PATCH PLACEMENT SCH ×3 (01:45→16:17)
[2020-01-23] MEDS: PIPERACILLIN/TAZOBACTAM 3.375 GM in DEXTROSE 5% 100 ML IV SCH (04:55)
[2020-01-23] MEDS: MoRPHine SULFATE 5 MG/0.25 ML UDP PO PRN ×4 (05:02→20:04)
[2020-01-23] MEDS: LEVOTHYROXINE SODIUM 200 MCG TABLET PO SCH (06:21)
[2020-01-23] MEDS: FERROUS SULFATE 325 MG TAB PO SCH (09:11)
[2020-01-23] MEDS: SPIRONOLACTONE 12.5 MG TAB PO SCH (09:11)
[2020-01-23] MEDS: PANTOprazole 40 MG TAB PO SCH (09:12)
[2020-01-23] MEDS: POTASSIUM CHLORIDE 20 MEQ TABCR PO SCH (09:12)
[2020-01-23] MEDS: FLUTICASONE/VILANTEROL 100/25MCG 14 PUFFS/INHALER INH SCH (09:12)
[2020-01-23] MEDS: MAGNESIUM OXIDE 400 MG TAB PO SCH (09:12)
[2020-01-23] MEDS: INSULIN ASPART 100 UNITS/ML 3 ML PEN SC SCH ×4 (09:50→19:59)
[2020-01-23] MEDS: ERTAPENEM SODIUM 1,000 MG in SODIUM CHLORIDE 0.9% 50 ML IV SCH (13:12)
[2020-01-23] MEDS: INSULIN GLARGINE SOLOSTAR 100 UNITS/ML 3 ML PEN SQ SCH (19:59)
--- NOTE | 2020-01-23 21:24 | Hospitalist Progress Note ---
Date of Service January 23, 2020 Assessment & Plan (1) Altered mental state: Metabolic encephalopathy Patient was slightly confused on admission. This has improved. Likely secondary to cancer, UTI and pain. Patient is going to be discharge on home hospice given her long-term poor prognosis. THIS WILL BE DONE ONCE HOME HOSPICE HAS BEEN SET UP. Patient will need to complete 5 days of antibiotics. This will be done on 01/23 at 13:00. (2) Urinary tract infection: +UA although dirty specimen with 5-[address] Abd/Pelvis comments on normal appearing kidneys and mild, nonspecific urinary bladder wall thickening. Prior urine cultures have grown gardnerella-like bacilli as well as ESBL E-coli and Klebsiella (Sn to Zosyn) -Follow cultures, blood and urine sent from ER -switched to ertapenem. (3) Anasarca: Most likely multifactorial, patients underlying chronic disease state, malnutrition, limited mobility. Alb=2.8 (4) Compression fracture: Found to have acute vs subacute 20% superior endplate compression deformity at L3, L4 and L5. REmote T12, L1 and L2 compression deformities. Overall with demineralized bones and mulitple degenerateive changes. No metastatic lesions mentioned (5) Colorectal cancer, stage IV: Patient with metastatic colorectal cancer currently on salvage Xeloda, follows with Dr. Quintana of Oncology. Overall prognosis is poor. Imaging today unfortunately suggests progression of disease -Continue Xeloda -Oncology followup outpatient as recommended (6) Abnormal LFTs: Patient with elevated Tbili=3.2, AP = 125. CT Abdomen comments on previously noted hepatic lesions with no new definite lesions identified. (7) Diabetes mellitus, type II: Chronic. Poorly controlled -Continue Lantus, ISS -Goal BS 100 - 140 (8) Hypothyroidism: Chronic. 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 -FT4 was elevated. -Continue Synthroid 1100mcg po daily (9) GERD (gastroesophageal reflux disease): Chronic -Continue Sucralfate and Omeprazole -Hemoccult stool x 1: positive (10) Asthma: Chronic. No wheeze. Adequate oxygenation on room air -Continue Breo and Albuterol (11) Atrial fibrillation: Patient presently in atrial flutter. Not on any rate controlling agents at the moment. Was recently taken off digoxin and Metoprolol due to intermittent bradycardia and hypotension. Presently tachycardic -Hold Eliquis given reports of black/tarry stools and positive FOBT. (12) HTN (hypertension): Chronic. TZ=068/79 currently -Continue to monitor -Continue Spironolactone Ppx - SCDs Code - Full Admission and Anticipated Discharge Date Admission Date: January 21, 2020 Subjective Patient reports feeling better. She is still coughing but has no new complaints. Her pain has improved. Review of Systems Review of Systems: All systems reviewed & are unremarkable except as noted in HPI & below Physical Exam Physical Exam: General: patient resting comfortably, chronically ill in appearance; NAD Skin: warm, dry, intact, no rashes or lesions HEENT: NC/AT, PERRL, EOMI, mild scleral icterus, conjunctiva without injection, external ear normal to inspection and nontender, nares patent, slightly dry mucus membranes, dentition intact, no oropharyngeal lesions, neck supple, trachea midline, no LAD, no thyromegaly, no JVD Heart: +S1/S2, irregularly irregular, tachycardic at 90bpm, no m/r/g Lungs: equal air entry bilaterally, no rales/rhonchi/wheezes Abd: +BS, soft, NT/ND, no masses/organomegaly/ascites, + pitting abdominal wall edema noted on right abdomen Ext: warm, 2+ pulses in UE/LE bilaterally, no clubbing/cyanosis or edema, LLE in immobilizer, NV intact Neuro: nonfocal, patient AA&O x 2, speech intact, slow, no facial droop, moving all extremities on command with equal strength 5/5, limited mobility of LLE Results & Data Results & Data ([facility]) Vital Signs (Past 12 Hours) Vital Signs Temp Pulse Pulse Resp BP BP Pulse Ox 01/23/20 20:19 36.9 C 103 H 20 115/81 96 01/23/20 16:00 79 01/23/20 15:08 36.4 C L 93 H 19 102/69 94 01/23/20 11:41 36.7 C 96 H 18 110/79 95 PG Care Time/CCT Total # of Minutes Spent Total Time Spent with Patient: Total time spent is greater than 50% in coordination of care (as documented) at patient's floor/unit and/or counseling patient: Coding Level of Care Code 66304 Subseq Hosp Care Lvl 2 Diagnoses Altered mental state R41.82 Altered mental status type: unspecified Urinary tract infection N39.0 Hematuria presence: without hematuria Urinary tract infection type: site unspecified Anasarca R60.1 Compression fracture Colorectal cancer, stage IV C19 Abnormal LFTs R94.5 Diabetes mellitus, type II E11.65; Z79.4 Diabetes mellitus complication status: with hyperglycemia Diabetes mellitus long-term insulin use: with long-term use Hypothyroidism E03.9 Hypothyroidism type: acquired GERD (gastroesophageal reflux disease) K21.9 Esophagitis presence: without esophagitis Asthma J45.909 Asthma complication type: unspecified Asthma persistence: unspecified Asthma severity: unspecified severity Atrial fibrillation I48.91 Atrial fibrillation type: unspecified HTN (hypertension) I10 Hypertension type: essential hypertension Time Spent (min) 25 (1) Urinary tract infection Hematuria presence: without hematuria Urinary tract infection type: site unspecified Qualified Code(s): N39.0 - Urinary tract infection, site not spec ified (2) Diabetes mellitus, type II Diabetes mellitus complication status: with hyperglycemia Diabetes mellitus terminal gauger insulin use: with long-term use Qualified Code(s): E11.65 - Type 2 diabetes mellitus with hyperglycemia; Z79.4 - long term (current) use of insulin (3) Atrial fibrillation Atrial fibrillation type: unspecified Qualified Code(s): I48.91 - Unspecified atrial fibrillation (4) Hypothyroidism Hypothyroidism type: acquired Qualified Code(s): E03.9 - Hypothyroidism, unspecified (5) Altered mental state Altered mental status type: unspecified Qualified Code(s): R41.82 - Altered mental status, unspecified (6) GERD (gastroesophageal reflux disease) Esophagitis presence: without esophagitis Qualified Code(s): K21.9 - Gastro- esophageal reflux disease without esophagitis (7) HTN (hypertension) Hypertension type: essential hypertension Qualified Code(s): I10 - Essential (primary) hypertension (8) Asthma Asthma complication type: unspecified Asthma persistence: unspecified Asthma severity: unspecified severity Qualified Code(s): J45.909 - Unspecified asthma, uncomplicated
[2020-01-23] MEDS ORDERED: MICONAZOLE NITRATE POWDER 43 GM EXT PRN (21:40)
[2020-01-24] MEDS: CHECK FENTANYL PATCH PLACEMENT SCH ×4 (00:02→23:57)
[2020-01-24] MEDS: MoRPHine SULFATE 5 MG/0.25 ML UDP PO PRN ×3 (03:23→15:58)
[2020-01-24] MEDS: LEVOTHYROXINE SODIUM 200 MCG TABLET PO SCH (06:15)
[2020-01-24] MEDS: MAGNESIUM OXIDE 400 MG TAB PO SCH (08:04)
[2020-01-24] MEDS: FLUTICASONE/VILANTEROL 100/25MCG 14 PUFFS/INHALER INH SCH (08:04)
[2020-01-24] MEDS: SPIRONOLACTONE 12.5 MG TAB PO SCH (08:04)
[2020-01-24] MEDS: POTASSIUM CHLORIDE 20 MEQ TABCR PO SCH (08:04)
[2020-01-24] MEDS: FERROUS SULFATE 325 MG TAB PO SCH (08:04)
[2020-01-24] MEDS: PANTOprazole 40 MG TAB PO SCH (08:04)
[2020-01-24] MEDS: INSULIN ASPART 100 UNITS/ML 3 ML PEN SC SCH ×4 (09:19→20:06)
[2020-01-24] MEDS: ERTAPENEM SODIUM 1,000 MG in SODIUM CHLORIDE 0.9% 50 ML IV SCH (12:48)
[2020-01-24] MEDS: INSULIN GLARGINE SOLOSTAR 100 UNITS/ML 3 ML PEN SQ SCH (20:07)
--- NOTE | 2020-01-24 20:22 | Hospitalist Progress Note ---
Date of Service January 24, 2020 Assessment & Plan (1) Altered mental state: Metabolic encephalopathy Patient was slightly confused on admission. This has improved. Likely secondary to cancer, UTI and pain. Patient is going to be discharge on home hospice given her care home poor prognosis. THIS WILL BE DONE ONCE HOME HOSPICE HAS BEEN SET UP. Patient will need to complete 5 days of antibiotics. This will be done on 01/23 at 13:00. Discharged will be delayed for a day as transportation is not available. (2) Urinary tract infection: +UA although dirty specimen with 5-[address] Abd/Pelvis comments on normal appearing kidneys and mild, nonspecific urinary bladder wall thickening. Prior urine cultures have grown gardnerella-like bacilli as well as ESBL E-coli and Klebsiella (Sn to Zosyn) -Follow cultures, blood and urine sent from ER -switched to ertapenem. will be completed today/ (3) Anasarca: Most likely multifactorial, patients underlying chronic disease state, malnutrition, limited mobility. Alb=2.8 (4) Compression fracture: Found to have acute vs subacute 20% superior endplate compression deformity at L3, L4 and L5. REmote T12, L1 and L2 compression deformities. Overall with demineralized bones and mulitple degenerateive changes. No metastatic lesions mentioned (5) Colorectal cancer, stage IV: Patient with metastatic colorectal cancer currently on salvage Xeloda, follows with Dr. Quintana of Oncology. Overall prognosis is poor. Imaging today unfortunately suggests progression of disease -Continue Xeloda -Oncology followup outpatient as recommended (6) Abnormal LFTs: Patient with elevated Tbili=3.2, AP = 125. CT Abdomen comments on previously noted hepatic lesions with no new definite lesions identified. (7) Diabetes mellitus, type II: Chronic. Poorly controlled -Continue Lantus, ISS -Goal BS 100 - 140 (8) Hypothyroidism: Chronic. 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 -FT4 was elevated. -Continue Synthroid 1100mcg po daily (9) GERD (gastroesophageal reflux disease): Chronic -Continue Sucralfate and Omeprazole -Hemoccult stool x 1: positive (10) Asthma: Chronic. No wheeze. Adequate oxygenation on room air -Continue Breo and Albuterol (11) Atrial fibrillation: Patient presently in atrial flutter. Not on any rate controlling agents at the moment. Was recently taken off digoxin and Metoprolol due to intermittent bradycardia and hypotension. Presently tachycardic -Hold Eliquis given reports of black/tarry stools and positive FOBT. (12) HTN (hypertension): Chronic. YK=247/79 currently -Continue to monitor -Continue Spironolactone Ppx - SCDs Code - Full Updated Family on discharge medications: inlcuding holding eliquis and risk of bleeding and stroke. showed understanding and agreed with plan. Admission and Anticipated Discharge Date Admission Date: January 21, 2020 Subjective 54 yo female reports no new symptoms. She states her pain is better controlled today. Review of Systems Review of Systems: All systems reviewed & are unremarkable except as noted in HPI & below Physical Exam Physical Exam: General: patient resting comfortably, chronically ill in appearance; NAD Skin: warm, dry, intact, no rashes or lesions HEENT: NC/AT, PERRL, EOMI, mild scleral icterus, conjunctiva without injection, external ear normal to inspection and nontender, nares patent, slightly dry mucus membranes, dentition intact, no oropharyngeal lesions, neck supple, trachea midline, no LAD, no thyromegaly, no JVD Heart: +S1/S2, irregularly irregular, tachycardic at 90bpm, no m/r/g Lungs: equal air entry bilaterally, no rales/rhonchi/wheezes Abd: +BS, soft, NT/ND, no masses/organomegaly/ascites, + pitting abdominal wall edema noted on right abdomen Ext: warm, 2+ pulses in UE/LE bilaterally, no clubbing/cyanosis or edema, LLE in immobilizer, NV intact Neuro: nonfocal, patient AA&O x 2, speech intact, slow, no facial droop, moving all extremities on command with equal strength 5/5, limited mobility of LLE Results & Data Results & [facility] ([facility]) Vital Signs (Past 12 Hours) Vital Signs Temp Pulse Pulse Resp BP Pulse Ox 01/24/20 19:57 37 C 87 19 108/75 99 01/24/20 16:18 36.6 C 93 H 20 117/77 97 01/24/20 15:02 90 01/24/20 11:17 36.6 C 91 H 20 106/73 95 PG Care Time/CCT Total # of Minutes Spent Total Time Spent with Patient: Total time spent is greater than 50% in coordination of care (as documented) at patient's floor/unit and/or counseling patient: Coding Level of Care Code 30009 Subseq Hosp Care Lvl 3 Diagnoses Altered mental state R41.82 Altered mental status type: unspecified Urinary tract infection N39.0 Hematuria presence: without hematuria Urinary tract infection type: site unspecified Anasarca R60.1 Compression fracture Colorectal cancer, stage IV C19 Abnormal LFTs R94.5 Diabetes mellitus, type II E11.65; Z79.4 Diabetes mellitus complication status: with hyperglycemia Diabetes mellitus care home insulin use: with termite exterminator helper use Hypothyroidism E03.9 Hypothyroidism type: acquired GERD (gastroesophageal reflux disease) K21.9 Esophagitis presence: without esophagitis Asthma J45.909 Asthma complication type: unspecified Asthma persistence: unspecified Asthma severity: unspecified severity Atrial fibrillation I48.91 Atrial fibrillation type: unspecified HTN (hypertension) I10 Hypertension type: essential hypertension Time Spent (min) 35 (1) Urinary tract infection Hematuria presence: without hematuria Urinary tract infection type: site unspecified Qualified Code(s): N39.0 - Urinary tract infection, site not specified (2) Diabetes mellitus, type II Diabetes mellitus complication status: with hyperglycemia Diabetes mellitus termite exterminator helper insulin use: with termite exterminator helper use Qualified Code(s): E11.65 - Type 2 diabetes mellitus with hyperglycemia; Z79.4 - intermediate frame tender (current) use of insulin (3) Atrial fibrillation Atrial fibrillation type: unspecified Qualified Code(s): I48.91 - Unspecified atrial fibrillation (4) Hypothyroidism Hypothyroidism type: acquired Qualified Code(s): E03.9 - Hypothyroidism, unspecified (5) Altered mental state Altered mental status type: unspecified Qualified Code(s): R41.82 - Altered mental status, unspecified (6) GERD (gastroesophageal reflux disease) Esophagitis presence: without esophagitis Qualified Code(s): K21.9 - Gastro- esophageal reflux disease without esophagitis (7) HTN (hypertension) Hypertension type: essential hypertension Qualified Code(s): I10 - Essential (primary) hypertension (8) Asthma Asthma complication type: unspecified Asthma persistence: unspecified Asthma severity: unspecified severity Qualified Code(s): J45.909 - Unspecified asthma, uncomplicated
[2020-01-25] MEDS: LEVOTHYROXINE SODIUM 200 MCG TABLET PO SCH (05:48)
[2020-01-25 07:35] VITALS: TEMP 97.7; O2SAT 90
[2020-01-25] MEDS: CHECK FENTANYL PATCH PLACEMENT SCH (08:09)
[2020-01-25] MEDS: SPIRONOLACTONE 12.5 MG TAB PO SCH (08:29)
[2020-01-25] MEDS: FLUTICASONE/VILANTEROL 100/25MCG 14 PUFFS/INHALER INH SCH (08:29)
[2020-01-25] MEDS: FERROUS SULFATE 325 MG TAB PO SCH (08:29)
[2020-01-25] MEDS: POTASSIUM CHLORIDE 20 MEQ TABCR PO SCH (08:30)
[2020-01-25] MEDS: PANTOprazole 40 MG TAB PO SCH (08:30)
[2020-01-25] MEDS: MAGNESIUM OXIDE 400 MG TAB PO SCH (08:30)
[2020-01-25] MEDS: INSULIN ASPART 100 UNITS/ML 3 ML PEN SC SCH (08:32)
[2020-01-25] MEDS: MoRPHine SULFATE 5 MG/0.25 ML UDP PO PRN (08:43)
[2020-01-25 10:35] VITALS: BP 98/65
[2020-01-25 10:49] VITALS: PULSE 103
== END 2020-01-25 11:00 | disposition hospice, home (50) | DRG 542 ==
LOC: ED 20:01 → 2W 20:01 → SUATTDRO 01-21 00:09 → 2W 01-21 01:05